=== PATIENT | male | born 1955 | race Two or more races ===

== ENCOUNTER → 2020-04-01 13:41 | Outpatient (BNVA) | payer MEDICAID, SELFPAY | PROVIDERS: PCP Nurse Practitioner Family; Referring Provider Nurse Practitioner Family; Visit Provider Internal Medicine Gastroenterology | DX: Z76.89 Persons encountering health services in other specified circumstances (principal) ==

== ENCOUNTER 2020-05-22 15:48 | Emergency (ER) | payer MEDICARE, MEDICAID, SELFPAY ==
--- NOTE | 2020-05-22 16:14 | ED_ITS ---
HPI - Psych General Chief Complaint: ETOH/Substance Use Stated Complaint: ETOH Time Seen by Provider: 05/22/20 16:14 Source: EMS Mode of arrival: EMS Limitations: other (Intoxicated) History of Present Illness HPI Narrative: Patient alcoholic been here frequently intoxicated came in very unkept condition incontinent of urine and stool intoxicated no signs of injury or history of fall History of same: Yes Relieving factors: none Exacerbating factors: none Related Data Home Medications Medication Instructions Recorded Confirmed atorvastatin 40 mg tablet mg PO 04/01/20 04/01/20 cholecalciferol (vitamin D3) 50 50 mcg PO QAM 04/01/20 04/01/20 mcg (2,000 unit) capsule gabapentin 600 mg tablet 600 mg PO QID 04/01/20 04/01/20 lisinopril 30 mg tablet 30 mg PO QAM 04/01/20 04/01/20 melatonin 5 mg tablet 5 mg PO BEDTIME 04/01/20 04/01/20 metoprolol succinate 25 mg 25 mg PO BEDTIME 04/01/20 04/01/20 tablet,extended release 24 hr phenytoin 50 mg chewable tablet 100 mg PO TID 04/01/20 04/01/20 tamsulosin 0.4 mg capsule 0.4 mg PO DAILY 04/01/20 04/01/20 Previous Rx's Medication Instructions Recorded pantoprazole 20 mg tablet,delayed 20 mg PO DAILY 30 Days #30 tab 04/01/20 release levofloxacin 500 mg PO DAILY 3 Days #3 tab 05/23/20 Allergies Allergy/AdvReac Type Severity Reaction Status Date / Time No Known Allergies Allergy Unverified 01/25/20 16:29 [No Known Allergies*] Review of Systems Review of Systems: Yes Unobtainable due to mental status (Intoxicated) [facility] Past Medical History Medical History Alcohol abuse Cardiomyopathy Cirrhosis, alcoholic GERD (gastroesophageal reflux disease) Hepatitis C antibody positive in blood Hypertension Seizure Family History Family History Father No problems noted. Mother No problems noted. Brother Cancer Sister No problems noted. Social History Social History Household Members: None Housing: Apartment Alcohol intake: current Alcohol intake frequency: a few times a week Alcohol type: hard liquor Smoking Status: Current every day smoker Advance Directives: No Advance Directives Information Provided: Yes Current occupational status: disabled Physical Exam Vital Signs: Vital Signs: Last Vital Signs Temp 99.6 F 05/22/20 23:15 Pulse 76 05/22/20 23:15 Resp 22 H 05/22/20 23:15 BP 145/72 H 05/22/20 23:15 Pulse Ox 96 05/22/20 23:15 Body Mass Index 45.6 Const: General: alert, awake, intoxicated appearing, lethargic and poor hygiene Orientation/consciousness: oriented to person and lethargic HENMT: Head: Yes normocephalic, Yes atraumatic and No contusion Ears: hearing grossly normal bilaterally General nose exam: Normal external nose present Face and sinus: Yes normal facial exam Mouth: Normal oral and palatal mucosa present Throat: Yes posterior oropharynx normal Eyes: General: appearance normal, both eyes and all related structures Conjunctivae: conjunctivae normal Sclerae: sclerae normal Pupils: Equal, round and reactive pupils present Neck: Neck: Yes normal visual inspection, Yes full ROM, Yes no meningeal sig ns, Yes trachea midline and Yes supple Chest: Chest palpation & inspection: normal inspection of the chest and normal palpation of entire chest wall Resp: Effort & Inspection: normal respiratory effort Auscultation: clear to auscultation bilaterally, no crackles, no rales, no rhonchi and no wheezes Cardio: Jugular venous distension: no JVD Rate: regular rate Rhythm: regular rhythm Heart sounds: S1 normal heart sound present, S2 normal heart sound present and no murmurs GI: Inspection: Yes normal to inspection Palpation (GI): Soft to palpation and nontender Percussion: Yes normal to percussion Auscultation: normal bowel sounds Back/Spine/Pelvis: Thoracic/Lumbar Spine: thoracic and lumbar spine normal to inspection Skin: General skin exam: no rashes or lesions noted Neuro: General: oriented to person, moves all extremities, no meningeal signs and no focal motor deficits Cranial nerves: Yes Equal, round and reactive pupils present Extrem: General: Yes normal to inspection, Yes no pedal edema and Yes no calf tenderness Course Course Course Narrative: Patient tachycardic says that he took cocaine, potassium is 3 , will replace it, alcohol level is [address] scan head and C-spine as patient is more lethargic and was intoxicated when he came although no signs of injury Reevaluation(s) Reevaluation #1: CT scan of the head and C-spine negative workup showed urine positive for cocaine also troponin was elevated initially 94.6 repeat troponin was without any significant delta change patient denying any chest pain repeat EKG also without any significant ST T wave changes. Patient is medically cleared will discharge patient home once sober Time: 23:38 MDM - Psych MDM Narrative Medical decision making narrative: Patient's alcohol and cocaine abuse labs are stable with potassium of 3 which is replaced patient medically cleared will discharge patient home and get sober patient urine positive for cocaine. Also showed wbc's will give him Levaquin for UTI Differential Diagnosis Differential diagnosis: Likely substance abuse Restraints Face to Face Assessment: Face to Face Assessment: Current Situation: After assessment of the patient, a review of the pertinent medical record and a discussion with nursing staff, I feel the patient requires a restrain intervention. Reaction To: [] Medical Condition: [] Behavioral State: [] Continued Need: [] Lab Data Attestation: I reviewed the patient's lab results. Result diagrams: 05/22/20 18:18 05/22/20 18:18 Labs: Lab Results 05/22/20 05/22/20 05/22/20 Range/Units 18:18 18:18 18:18 WBC 10.9 H (4.8-10.8) X10*3/uL RBC 4.08 L (4.60-5.80) X10*6/uL Hgb 13.1 L (14.0-18.0) g/dl Hct 38.2 L (42-52) % MCV 93.6 (80-98) fL MCH 32.1 (27.0-33.0) pg MCHC 34.3 (31.0-36.0) g/dl RDW 14.7 (11.0-16.0) % Plt Count 192 (160-400) X10*3/uL MPV 9.0 L (9.4-12.4) fL Immature Gran % (Auto) 0.3 (0.0-0.4) % Neut % (Auto) 75.8 H (45-73) % Lymph % (Auto) 13.5 L (20-40) % [place] % (Auto) 10.0 (2-11) % Eos % (Auto) 0.0 (0-4) % Baso % (Auto) 0.4 (0-2) % Lymph # (Auto) 1.5 (1.2-4.9) X10*3/uL [place] # (Auto) 1.1 (0.1-1.2) X10*3/uL Eos # (Auto) 0.0 (0.0-0.4) X10*3/uL Baso # (Auto) 0.0 (0.0-0.2) X10*3/uL Abs Immat Gran (auto) 0.03 (0.00-0.03) X10*3/uL Absolute Neuts (auto) 8.2 (2.0-8.3) X10*3/uL Absolute Nucleated RBC 0.000 (0.0-0.012) X10*3/uL Nucleated RBC % (auto) 0.0 (0.0-0.2) /100WBC PT 12.5 (10.8-13.0) SEC INR 1.1 (0.9-1.1) Sodium 137 (135-145) mmol/L Potassium 3.0 L (3.3-5.1) mmol/l Chloride 103 (96-108) mmol/L Carbon Dioxide 21 L (22-29) mmol/L Anion Gap 16 (12-20) BUN 9 (9-16) mg/dL Creatinine 1.28 (0.5-1.4) mg/dL Estim Creat Clear Calc 80.0 Estimated GFR 56 Random Glucose 123 H (60-115) mg/dL Calcium 8.2 L (8.4-10.2) mg/dL Magnesium 1.6 (1.6-2.6) mg/dL Total Bilirubin 0.7 (0.0-1.0) mg/dL Direct Bilirubin 0.4 (0.0-0.5) mg/dL AST 14 (5-37) U/L ALT 8 (0-40) U/L Alkaline Phosphatase 72 (39-117) U/L Total Creatine Kinase 57 (38-174) U/L Troponin I High Sens (<3.5-35.0) ng/L Total Protein 6.5 (6.5-8.0) g/dL Albumin 3.4 L (3.5-5.0) g/dL Lipase (8-78) U/L Urine Color Urine Appearance Urine pH (5.0-8.0) Ur Specific [place] (1.005-1.025) Urine Protein (NEG-TRACE) MG/DL Urine Glucose (UA) (NEG) MG/DL Urine Ketones (NEG) MG/DL Urine Blood (NEG) Urine Nitrite (NEG) Ur Leukocyte Esterase (NEG) Urine RBC (0) /HPF Urine WBC (0-4) /HPF Ur Squamous Epith Cells /LPF Urine Bacteria /LPF Urine Mucus /LPF Urine Opiates Screen (Not Detect) Ur Barbiturates Screen (Not Detect) Ur Phencyclidine Scrn (Not Detect) Ur Amphetamines Screen (Not Detect) U Benzodiazepines Scrn (Not Detect) Urine Cocaine Screen (Not Detect) U Marijuana (THC) Screen (Not Detect) Ethyl Alcohol mg/dL COVID-19 (KATELYNN) (Negative) COVID-19 Clin Com 05/22/20 05/22/20 05/22/20 Range/Units 18:18 18:18 18:18 WBC (4.8-10.8) X10*3/uL RBC (4.60-5.80) X10*6/uL Hgb (14.0-18.0) g/dl Hct (42-52) % MCV (80-98) fL MCH (27.0-33.0) pg MCHC (31.0-36.0) g/dl RDW (11.0-16.0) % Plt Count (160-400) X10*3/uL MPV (9.4-12.4) fL Immature Gran % (Auto) (0.0-0.4) % Neut % (Auto) (45-73) % Lymph % (Auto) (20-40) % [place] % (Auto) (2-11) % Eos % (Auto) (0-4) % Baso % (Auto) (0-2) % Lymph # (Auto) (1.2-4.9) X10*3/uL [place] # (Auto) (0.1-1.2) X10*3/uL Eos # (Auto) (0.0-0.4) X10*3/uL Baso # (Auto) (0.0-0.2) X10*3/uL Abs Immat Gran (auto) (0.00-0.03) X10*3/uL Absolute Neuts (auto) (2.0-8.3) X10*3/uL Absolute Nucleated RBC (0.0-0.012) X10*3/uL Nucleated RBC % (auto) (0.0-0.2) /100WBC PT (10.8-13.0) SEC INR (0.9-1.1) Sodium (135-145) mmol/L Potassium (3.3-5.1) mmol/l Chloride (96-108) mmol/L Carbon Dioxide (22-29) mmol/L Anion Gap (12-20) BUN (9-16) mg/dL Creatinine (0.5-1.4) mg/dL Estim Creat Clear Calc Estimated GFR Random Glucose (60-115) mg/dL Calcium (8.4-10.2) mg/dL Magnesium (1.6-2.6) mg/dL Total Bilirubin (0.0-1.0) mg/dL Direct Bilirubin (0.0-0.5) mg/dL AST (5-37) U/L ALT (0-40) U/L Alkaline Phosphatase (39-117) U/L Total Creatine Kinase (38-174) U/L Troponin I High Sens (<3.5-35.0) ng/L Total Protein (6.5-8.0) g/dL Albumin (3.5-5.0) g/dL Lipase 15 (8-78) U/L Urine Color Urine Appearance Urine pH (5.0-8.0) Ur Specific [place] (1.005-1.025) Urine Protein (NEG-TRACE) MG/DL Urine Glucose (UA) (NEG) MG/DL Urine Ketones (NEG) MG/DL Urine Blood (NEG) Urine Nitrite (NEG) Ur Leukocyte Esterase (NEG) Urine RBC (0) /HPF Urine WBC (0-4) /HPF Ur Squamous Epith Cells /LPF Urine Bacteria /LPF Urine Mucus /LPF Urine Opiates Screen (Not Detect) Ur Barbiturates Screen (Not Detect) Ur Phencyclidine Scrn (Not Detect) Ur Amphetamines Screen (Not Detect) U Benzodiazepines Scrn (Not Detect) Urine Cocaine Screen (Not Detect) U Marijuana (THC) Screen (Not Detect) Ethyl Alcohol 65 mg/dL COVID-19 (KATELYNN) Negative (Negative) COVID-19 Clin Com See Note 05/22/20 05/22/20 05/22/20 Range/Units 18:18 22:18 22:22 WBC (4.8-10.8) X10*3/uL RBC (4.60-5.80) X10*6/uL Hgb (14.0-18.0) g/dl Hct (42-52) % MCV (80-98) fL MCH (27.0-33.0) pg MCHC (31.0-36.0) g/dl RDW (11.0-16.0) % Plt Count (160-400) X10*3/uL MPV (9.4-12.4) fL Immature Gran % (Auto) (0.0-0.4) % Neut % (Auto) (45-73) % Lymph % (Auto) (20-40) % [place] % (Auto) (2-11) % Eos % (Auto) (0-4) % Baso % (Auto) (0-2) % Lymph # (Auto) (1.2-4.9) X10*3/uL [place] # (Auto) (0.1-1.2) X10*3/uL Eos # (Auto) (0.0-0.4) X10*3/uL Baso # (Auto) (0.0-0.2) X10*3/uL Abs Immat Gran (auto) (0.00-0.03) X10*3/uL Absolute Neuts (auto) (2.0-8.3) X10*3/uL Absolute Nucleated RBC (0.0-0.012) X10*3/uL Nucleated RBC % (auto) (0.0-0.2) /100WBC PT (10.8-13.0) SEC INR (0.9-1.1) Sodium (135-145) mmol/L Potassium (3.3-5.1) mmol/l Chloride (96-108) mmol/L Carbon Dioxide (22-29) mmol/L Anion Gap (12-20) BUN (9-16) mg/dL Creatinine (0.5-1.4) mg/dL Estim Creat Clear Calc Estimated GFR Random Glucose (60-115) mg/dL Calcium (8.4-10.2) mg/dL Magnesium (1.6-2.6) mg/dL Total Bilirubin (0.0-1.0) mg/dL Direct Bilirubin (0.0-0.5) mg/dL AST (5-37) U/L ALT (0-40) U/L Alkaline Phosphatase (39-117) U/L Total Creatine Kinase (38-174) U/L Troponin I High Sens 94.6 H 81.8 H (<3.5-35.0) ng/L Total Protein (6.5-8.0) g/dL Albumin (3.5-5.0) g/dL Lipase (8-78) U/L Urine Color YELLOW Urine Appearance HAZY Urine pH 6.0 (5.0-8.0) Ur Specific [place] 1.025 (1.005-1.025) Urine Protein 1+ H (NEG-TRACE) MG/DL Urine Glucose (UA) NEG (NEG) MG/DL Urine Ketones NEG (NEG) MG/DL Urine Blood 1+ H (NEG) Urine Nitrite NEG (NEG) Ur Leukocyte Esterase 2+ H (NEG) Urine RBC 10-14 H (0) /HPF Urine WBC 50-75 H (0-4) /HPF Ur Squamous Epith Cells 1+ /LPF Urine Bacteria 4+ /LPF Urine Mucus 1+ /LPF Urine Opiates Screen (Not Detect) Ur Barbiturates Screen (Not Detect) Ur Phencyclidine Scrn (Not Detect) Ur Amphetamines Screen (Not Detect) U Benzodiazepines Scrn (Not Detect) Urine Cocaine Screen (Not Detect) U Marijuana (THC) Screen (Not Detect) Ethyl Alcohol mg/dL COVID-19 (KATELYNN) (Negative) COVID-19 Clin Com 05/22/20 Range/Units 22:22 WBC (4.8-10.8) X10*3/uL RBC (4.60-5.80) X10*6/uL Hgb (14.0-18.0) g/dl Hct (42-52) % MCV (80-98) fL MCH (27.0-33.0) pg MCHC (31.0-36.0) g/dl RDW (11.0-16.0) % Plt Count (160-400) X10*3/uL MPV (9.4-12.4) fL Immature Gran % (Auto) (0.0-0.4) % Neut % (Auto) (45-73) % Lymph % (Auto) (20-40) % [place] % (Auto) (2-11) % Eos % (Auto) (0-4) % Baso % (Auto) (0-2) % Lymph # (Auto) (1.2-4.9) X10*3/uL [place] # (Auto) (0.1-1.2) X10*3/uL Eos # (Auto) (0.0-0.4) X10*3/uL Baso # (Auto) (0.0-0.2) X10*3/uL Abs Immat Gran (auto) (0.00-0.03) X10*3/uL Absolute Neuts (auto) (2.0-8.3) X10*3/uL Absolute Nucleated RBC (0.0-0.012) X10*3/uL Nucleated RBC % (auto) (0.0-0.2) /100WBC PT (10.8-13.0) SEC INR (0.9-1.1) Sodium (135-145) mmol/L Potassium (3.3-5.1) mmol/l Chloride (96-108) mmol/L Carbon Dioxide (22-29) mmol/L Anion Gap (12-20) BUN (9-16) mg/dL Creatinine (0.5-1.4) mg/dL Estim Creat Clear Calc Estimated GFR Random Glucose (60-115) mg/dL Calcium (8.4-10.2) mg/dL Magnesium (1.6-2.6) mg/dL Total Bilirubin (0.0-1.0) mg/dL Direct Bilirubin (0.0-0.5) mg/dL AST (5-37) U/L ALT (0-40) U/L Alkaline Phosphatase (39-117) U/L Total Creatine Kinase (38-174) U/L Troponin I High Sens (<3.5-35.0) ng/L Total Protein (6.5-8.0) g/dL Albumin (3.5-5.0) g/dL Lipase (8-78) U/L Urine Color Urine Appearance Urine pH (5.0-8.0) Ur Specific [place] (1.005-1.025) Urine Protein (NEG-TRACE) MG/DL Urine Glucose (UA) (NEG) MG/DL Urine Ketones (NEG) MG/DL Urine Blood (NEG) Urine Nitrite (NEG) Ur Leukocyte Esterase (NEG) Urine RBC (0) /HPF Urine WBC (0-4) /HPF Ur Squamous Epith Cells /LPF Urine Bacteria /LPF Urine Mucus /LPF Urine Opiates Screen Not Detected (Not Detect) Ur Barbiturates Screen Not Detected (Not Detect) Ur Phencyclidine Scrn Not Detected (Not Detect) Ur Amphetamines Screen Not Detected (Not Detect) U Benzodiazepines Scrn Not Detected (Not Detect) Urine Cocaine Screen POSITIVE H (Not Detect) U Marijuana (THC) Screen Not Detected (Not Detect) Ethyl Alcohol mg/dL COVID-19 (KATELYNN) (Negative) COVID-19 Clin Com ECG Data Attestation: I personally reviewed and interpreted this ECG as follows: ECG interpretation time: 17:46 Interpretation: Sinus tachycardia with ventricular rate 122 left ventricular hypertrophy no acute ST T wave changes normal axis impression sinus tachycardia Discharge Plan Discharge Clinical Impression: Cocaine abuse Alcoholic intoxication Qualifiers: Complication of substance-induced condition: uncomplicated Qualified Code(s): F10.920 - Alcohol use, unspecified with intoxication, uncomplicated UTI (urinary tract infection) Qualifiers: Urinary tract infection type: acute cystitis Hematuria presence: without hematuria Qualified Code(s): N30.00 - Acute cystitis without hematuria Patient Disposition: Home, Self-Care Instructions: Urinary Tract Infection in Men (ED), Cocaine Abuse (ED), Abuse of Alcohol (ED) Additional Instructions: Stop drinking alcohol and cocaine use. Take antibiotic for UTI as prescribed. Follow-up with detox Prescriptions: New levofloxacin 500 mg tablet 500 mg PO DAILY 3 Days Qty: 3 RF: 0 No Action lisinopril 30 mg tablet 30 mg PO QAM RF: 0 metoprolol succinate 25 mg tablet extended release 24 hr 25 mg PO BEDTIME RF: 0 atorvastatin 40 mg tablet PO RF: 0 gabapentin 600 mg tablet 600 mg PO QID RF: 0 tamsulosin 0.4 mg capsule 0.4 mg PO DAILY RF: 0 melatonin 5 mg tablet 5 mg PO BEDTIME RF: 0 cholecalciferol (vitamin D3) 50 mcg (2,000 unit) capsule 50 mcg PO QAM RF: 0 phenytoin 50 mg tablet,chewable 100 mg PO TID RF: 0 pantoprazole 20 mg tablet,delayed release (DR/EC) 20 mg PO DAILY 30 Days Qty: 30 RF: 2 Interventions: ED Discharge Assessment Last Done: 05/23/20 00:54 Discharge Date/Time: 05/23/20 01:00 Print Language: Kyrgyz
--- NOTE | 2020-05-22 16:17 | ECG_ITS ---
Test Reason : ETOH Blood Pressure : / mmHG Vent. Rate : 122 BPM Atrial Rate : 122 BPM P-R Int : 120 ms QRS Dur : 098 ms QT Int : 372 ms P-R-T Axes : 042 052 144 degrees QTc Int : 530 ms Sinus tachycardia Left ventricular hypertrophy with repolarization abnormality Abnormal ECG When compared with ECG of 18-SEP-2016 09:17, Premature ventricular complexes are no longer Present Vent. rate has increased BY [address] no longer elevated in Inferior leads ST less elevated in Anterior leads Non-specific change in ST segment in Lateral leads T wave inversion now evident in Inferior leads Referred By: Toney Paez Electronically Signed By:HEATHER MCINTOSH MD
[2020-05-22 16:51] VITALS: BP 136/70; PULSE 94; RESP 16; TEMP 36.9; O2SAT 99; BMI 45.6
[2020-05-22 18:26] LABS: MANUAL DIFF FLAG NO
[2020-05-22 18:33] LABS: INTERNATIONAL NORM RATIO 1.1 (0.9-1.1); Prothrombin Time 12.5 SEC (10.8-13.0)
[2020-05-22 18:43] LABS: COVID-19 Test Negative (Negative)
[2020-05-22 18:46] LABS: Ethanol 65 mg/dL
[2020-05-22 18:48] LABS: Alanine Aminotransferase 8 U/L (0-40); Albumin Level 3.4 g/dL (3.5-5.0); Alkaline Phosphatase 72 U/L (39-117); Anion Gap 16 (12-20); Aspartate Amino Transferase 14 U/L (5-37); Bilirubin Direct 0.4 mg/dL (0.0-0.5); Bilirubin Total 0.7 mg/dL (0.0-1.0); Blood Urea Nitrogen 9 mg/dL (9-16); Calcium 8.2 mg/dL (8.4-10.2); Carbon Dioxide 21 mmol/L (22-29); Chloride 103 mmol/L (96-108); Estimated Glomerular Filt Rate 56; Glucose Random 123 mg/dL (60-115); Magnesium 1.6 mg/dL (1.6-2.6); Sodium 137 mmol/L (135-145); Total Protein 6.5 g/dL (6.5-8.0)
[2020-05-22 18:49] LABS: Basophils Percent Auto 0.4 % (0-2); Hematocrit 38.2 % (42-52); Hemoglobin 13.1 g/dl (14.0-18.0); Imm Gran Abs Auto 0.03 X10*3/uL (0.00-0.03); Imm Gran Pct Auto 0.3 % (0.0-0.4); Lipase 15 U/L (8-78); Lymphocytes Absolute Auto 1.5 X10*3/uL (1.2-4.9); Lymphocytes Percent Auto 13.5 % (20-40); Mean Corpuscular HGB Conc 34.3 g/dl (31.0-36.0); Mean Corpuscular Hemoglobin 32.1 pg (27.0-33.0); Mean Corpuscular Volume 93.6 fL (80-98); Monocytes Absolute Auto 1.1 X10*3/uL (0.1-1.2); Neutrophils Absolute Auto 8.2 X10*3/uL (2.0-8.3); Neutrophils Percent Auto 75.8 % (45-73); Platelet Count 192 X10*3/uL (160-400); Red Blood Count 4.08 X10*6/uL (4.60-5.80); Red Cell Distribution Width 14.7 % (11.0-16.0); White Blood Count 10.9 X10*3/uL (4.8-10.8)
[2020-05-22 19:02] LABS: Troponin-I High Sensitivity 94.6 ng/L (<3.5-35.0)
--- NOTE | 2020-05-22 19:05 | CT_ITS ---
Indication: Altered mental status EXAMINATION: CT the brain and CT of the cervical spine. Axial images with coronal and sagittal reformatted images. DLP is [address] brain There is no midline shift. There is no mass effect. There is no hemorrhage. The basilar cisterns appear patent. The posterior fossa is grossly within normal limits. There is no extra-axial collection There is evidence of scattered white matter ischemic change. The ventricular system is within normal limits. Note is made of maxillary and ethmoid sinus disease. CT cervical spine; Bullous disease in the right lung apex. Negative for acute fracture or dislocation. Degenerative changes are noted. CT/CT cervical spine wo con IMPRESSION: No fracture or dislocation in the cervical spine. Negative acute noncontrast CT of the brain. Moderate white matter ischemic changes.
--- NOTE | 2020-05-22 19:05 | CT_ITS ---
Indication: Altered mental status EXAMINATION: CT the brain and CT of the cervical spine. Axial images with coronal and sagittal reformatted images. DLP is [address] brain There is no midline shift. There is no mass effect. There is no hemorrhage. The basilar cisterns appear patent. The posterior fossa is grossly within normal limits. There is no extra-axial collection There is evidence of scattered white matter ischemic change. The ventricular system is within normal limits. Note is made of maxillary and ethmoid sinus disease. CT cervical spine; Bullous disease in the right lung apex. Negative for acute fracture or dislocation. Degenerative changes are noted. CT/CT head/brain wo con IMPRESSION: No fracture or dislocation in the cervical spine. Negative acute noncontrast CT of the brain. Moderate white matter ischemic changes.
--- NOTE | 2020-05-22 19:05 | PC.NURSE ---
PATIENT'S TROPONIN 94.6. INFORMATION RELAYED TO DICK KAN, REVARN AND . PATIENT BEING MOVED FROM ED BED 6H TO ED BED 5. PLACED ON CARDIAC MONITORING.
--- NOTE | 2020-05-22 19:06 | XR_ITS ---
EXAMINATION: XR CHEST CLINICAL INFORMATION: Altered mental status COMPARISON: 12/23/2007 TECHNIQUE: Frontal view of the chest was obtained. FINDINGS: Metallic fragments are again seen in the right hemithorax as well as overlying the left clavicle. Old healed rib fractures are noted on the right involving at least the fourth through sixth ribs. Heart size within normal limits. No infiltrates, effusions or lung masses are seen. XR/XR chest 1V IMPRESSION: No acute intrathoracic disease
[2020-05-22] MEDS: 0.9 % Sodium Chloride 1,000 ML 999 ML IVCONT ×2 (19:21→22:28)
[2020-05-22 19:28] VITALS: BP 140/75; PULSE 120; RESP 16; O2SAT 96
[2020-05-22] MEDS: Potassium Chloride/H20 10 MEQ/100 ML PIGGYBACK 100 MEQ IV ×2 (19:52→21:03)
--- NOTE | 2020-05-22 22:08 | ECG_ITS ---
Test Reason : REPEAT Blood Pressure : / mmHG Vent. Rate : 072 BPM Atrial Rate : 072 BPM P-R Int : 134 ms QRS Dur : 088 ms QT Int : 468 ms P-R-T Axes : 073 063 115 degrees QTc Int : 512 ms Normal sinus rhythm with sinus arrhythmia Possible Left atrial enlargement Left ventricular hypertrophy with repolarization abnormality Prolonged QT Abnormal ECG When compared with ECG of 22-MAY-2020 17:46, Vent. rate has decreased BY 50 BPM T wave inversion no longer evident in Inferior leads Referred By: Toney Paez Electronically Signed By:HEATHER MCINTOSH MD
[2020-05-22 22:19] VITALS: BP 131/71; PULSE 71; RESP 22; O2SAT 99
[2020-05-22 22:29] LABS: Glucose Urine UA NEG (NEG); Leukocyte Esterase Urine 2+ (NEG); Nitrite Urine NEG (NEG); Specific Gravity - Urine 1.025 (1.005-1.025); Urine Blood 1+ (NEG); Urine Ketones NEG (NEG); Urine Protein 1+ MG/DL (NEG-TRACE)
[2020-05-22 22:35] LABS: Appearance Urine HAZY; Color Urine YELLOW
[2020-05-22 22:38] LABS: Bacteria Urine 4+ /LPF; Mucus Urine 1+ /LPF; Squamous Epithelial Cell Urine 1+ /LPF; WBC Urine 50-75 /HPF (0-4)
[2020-05-22 22:52] LABS: Amphetamine Screen Urine Not Detected (Not Detect); Barbiturates, Urine Not Detected (Not Detect); Benzodiazepines Screen Urine Not Detected (Not Detect); Cannabinoid Screen Urine Not Detected (Not Detect); Cocaine Screen Urine POSITIVE (Not Detect); Opiate Screen Urine Not Detected (Not Detect); Phencyclidine Screen Urine Not Detected (Not Detect)
[2020-05-22 23:02] LABS: Troponin-I High Sensitivity 81.8 ng/L (<3.5-35.0)
[2020-05-22 23:15] VITALS: BP 145/72; PULSE 76; RESP 22; TEMP 37.6; O2SAT 96
[2020-05-23] MEDS: levoFLOXacin 500 MG TABLET PO (00:44)
== END 2020-05-23 01:00 | disposition home or self-care (01) ==
PROVIDERS: Emergency Provider Internal Medicine
DX: N30.00 Acute cystitis without hematuria (principal); Z20.822 Contact with and (suspected) exposure to COVID-19; F14.10 Cocaine abuse, uncomplicated; R53.83 Other fatigue; R00.0 Tachycardia, unspecified; F10.220 Alcohol dependence with intoxication, uncomplicated; Y90.3 Blood alcohol level of 60-79 mg/100 ml; I10 Essential (primary) hypertension; K70.30 Alcoholic cirrhosis of liver without ascites; B19.20 Unspecified viral hepatitis C without hepatic coma; F17.200 Nicotine dependence, unspecified, uncomplicated; Z79.899 Other long term (current) drug therapy
CPT/HCPCS: 36415; 70450; 71045; 72125; 80048; 80076; 80307; 80320; 81001; 82550; 83690; 83735; 84484; 85025; 85610; 87086; 87088; 87186; 87635; 93005; 96361; 96374; 99283; 99284

== ENCOUNTER → 2020-07-22 08:31 | Outpatient (BNVA) | payer MEDICARE, MEDICAID, SELFPAY | PROVIDERS: PCP Nurse Practitioner Family; Visit Provider Internal Medicine Gastroenterology | DX: K70.30 Alcoholic cirrhosis of liver without ascites (principal); K21.9 Gastro-esophageal reflux disease without esophagitis; F10.10 Alcohol abuse, uncomplicated | CPT/HCPCS: 99212 ==

== ENCOUNTER 2020-09-26 12:11 | Inpatient (IN) | payer MEDICARE, MEDICAID, SELFPAY ==
[2020-09-26] VITALS (7 sets, daily range): BP systolic 143–224; BP diastolic 63–107; PULSE 65–100; RESP 13–18; TEMP 36.4–37.2; O2SAT 94–98; BMI 25.8
--- NOTE | ~2020-09-26 | CT_ITS ---
EXAMINATION: CT BRAIN AND CT CERVICAL SPINE X-RAY. CLINICAL INFORMATION: AMS. COMPARISON: None TECHNIQUE: 5 mm thin axial and reformatted 2 mm thin sagittal and coronal images of brain were obtained. Subsequently three-minute thin axial and reformatted 2 mm thin sagittal and coronal images of cervical spine were obtained. DLP 1071. Chest 2 views. FINDINGS: Brain: There is no acute intra-axial, extra-axial bleed, masses or midline shift. There is no acute infarct in evolution. The lateral ventricles are symmetrical in size and configuration without enlargement. There is bibasilar ganglia calcifications. The franks to white matter differentiation is maintained normal. Bone windows reveal no calvarial abnormality. There is mucoperiosteal thickening bilateral maxillary sinuses. Rest of the sinuses are well-aerated. There is minimal mucoperiosteal thickening left mastoid sinus. There is no scalp soft tissue abnormality. There is no calvarial abnormality. Cervical spine: There is mild straightening of cervical lordosis. The vertebral heights and alignment are normal. The craniovertebral junction and C1-C2 alignment is normal. There is mild ventral spondylosis C4-C5, C5-C6 and C6-C7 disc levels. No lytic or sclerotic process seen. The prevertebral and paravertebral soft tissues are normal. The tracheal airway is widely patent. There are large bullae in the right lung apex. CT/CT head/brain wo con IMPRESSION: No acute intracranial process seen. Chronic bilateral maxillary sinus inflammatory changes. There is no acute fracture or dislocation in cervical spine. There are degenerative disc changes as described above. There is a right apical bullous change.
--- NOTE | ~2020-09-26 | CT_ITS ---
EXAMINATION: CT BRAIN AND CT CERVICAL SPINE X-RAY. CLINICAL INFORMATION: AMS. COMPARISON: None TECHNIQUE: 5 mm thin axial and reformatted 2 mm thin sagittal and coronal images of brain were obtained. Subsequently three-minute thin axial and reformatted 2 mm thin sagittal and coronal images of cervical spine were obtained. DLP 1071. Chest 2 views. FINDINGS: Brain: There is no acute intra-axial, extra-axial bleed, masses or midline shift. There is no acute infarct in evolution. The lateral ventricles are symmetrical in size and configuration without enlargement. There is bibasilar ganglia calcifications. The franks to white matter differentiation is maintained normal. Bone windows reveal no calvarial abnormality. There is mucoperiosteal thickening bilateral maxillary sinuses. Rest of the sinuses are well-aerated. There is minimal mucoperiosteal thickening left mastoid sinus. There is no scalp soft tissue abnormality. There is no calvarial abnormality. Cervical spine: There is mild straightening of cervical lordosis. The vertebral heights and alignment are normal. The craniovertebral junction and C1-C2 alignment is normal. There is mild ventral spondylosis C4-C5, C5-C6 and C6-C7 disc levels. No lytic or sclerotic process seen. The prevertebral and paravertebral soft tissues are normal. The tracheal airway is widely patent. There are large bullae in the right lung apex. CT/CT cervical spine wo con IMPRESSION: No acute intracranial process seen. Chronic bilateral maxillary sinus inflammatory changes. There is no acute fracture or dislocation in cervical spine. There are degenerative disc changes as described above. There is a right apical bullous change.
--- NOTE | ~2020-09-26 | US_ITS ---
EXAMINATION: US ABDOMEN LIMITED CLINICAL INFORMATION: Question cirrhosis. Abnormal hepatic texture. COMPARISON: None TECHNIQUE: Real-time imaging of the right upper quadrant abdominal viscera. FINDINGS: PANCREAS: Normal. LIVER: Normal. The liver is normal in size. The liver contour is normal. Parenchymal echogenicity is normal. No focal hepatic lesion. There is no intrahepatic biliary duct dilatation seen. Normal hepatopedal flow seen in the portal vein on Doppler exam. GALLBLADDER: There are multiple echogenic mobile gallstones without wall thickening. COMMON BILE DUCT: Normal in caliber measuring 0.32 cm in diameter. RIGHT KIDNEY: Normal. No hydronephrosis. No renal calculi or focal parenchymal lesions. The kidney measures 10.1 cm in maximum dimension. FREE FLUID: None. US/US abdomen limited IMPRESSION: Cholelithiasis without wall thickening. Visualized liver, right kidney and the pancreas appears unremarkable.
--- NOTE | 2020-09-26 12:30 | ECG_ITS ---
Test Reason : ALTER MENTAL Blood Pressure : / mmHG Vent. Rate : 081 BPM Atrial Rate : 081 BPM P-R Int : 116 ms QRS Dur : 096 ms QT Int : 406 ms P-R-T Axes : 051 045 147 degrees QTc Int : 471 ms Poor data quality Possible Normal sinus rhythm Voltage criteria for left ventricular hypertrophy T wave abnormality, consider lateral ischemia Prolonged QT Abnormal ECG When compared with ECG of 22-MAY-2020 22:18, Poor data quality in current ECG precludes serial comparison Referred By: Poonam Senior Electronically Signed By:HEATHER MCINTOSH MD
--- NOTE | 2020-09-26 12:48 | MHC.RECOVSUP ---
Addendum entered by Bran Murphy 09/26/20 13:54: Returned to patient 45 minutes later and had another discussion about detox or mat. pt. was unresponsive. Pt. is ukrainian speaking only. Original Note: ? Reason for consult:Continuity of care o Current location: ED 22H o Identified substance use concern: ETO - Support ? Intervention o Community resources provided o ? Plan: o Referral to [facility] o Patient to follow up with [facility] after discharge ? Additional information: Spoke at length with patient about detox and MAT. Patient agreed to sit and think about his options. F/u later for detox.
[2020-09-26 12:57] LABS: MANUAL DIFF FLAG NO
[2020-09-26 12:58] LABS: Basophils Absolute Auto 0.1 X10*3/uL (0.0-0.2); Basophils Percent Auto 0.6 % (0-2); Eosinophils Absolute Auto 0.1 X10*3/uL (0.0-0.4); Eosinophils Percent Auto 0.8 % (0-4); Hematocrit 45.7 % (42-52); Hemoglobin 15.2 g/dl (14.0-18.0); Imm Gran Abs Auto 0.03 X10*3/uL (0.00-0.03); Imm Gran Pct Auto 0.4 % (0.0-0.4); Lymphocytes Percent Auto 25.3 % (20-40); Mean Corpuscular HGB Conc 33.3 g/dl (31.0-36.0); Mean Corpuscular Hemoglobin 32.2 pg (27.0-33.0); Mean Corpuscular Volume 96.8 fL (80-98); Mean Platelet Volume 8.9 fL (9.4-12.4); Monocytes Absolute Auto 0.8 X10*3/uL (0.1-1.2); Monocytes Percent Auto 10.7 % (2-11); Neutrophils Absolute Auto 4.8 X10*3/uL (2.0-8.3); Neutrophils Percent Auto 62.2 % (45-73); Platelet Count 253 X10*3/uL (160-400); Red Blood Count 4.72 X10*6/uL (4.60-5.80); Red Cell Distribution Width 14.4 % (11.0-16.0); White Blood Count 7.8 X10*3/uL (4.8-10.8)
[2020-09-26 13:04] LABS: INTERNATIONAL NORM RATIO 1.1 (0.9-1.1); Prothrombin Time 12.9 SEC (10.8-13.0)
--- NOTE | 2020-09-26 13:19 | ED_ITS ---
HPI - Altered Mental Status General Chief Complaint: Altered Mental Status Stated Complaint: OPIATE OD,NARCAN GIVEN W/GOOD RESULT PER EMS Time Seen by Provider: 09/26/20 12:30 Source: patient, EMS and personal lines agent Mode of arrival: EMS Limitations: language barrier and altered mental status History of Present Illness HPI narrative: 64-year-old male with a past medical history of alcohol abuse, alcoholic liver cirrhosis, GERD, hepatitis-C, hypertension, seizure disorder here status post being found unresponsive. Per EMS the patient was on his balcony and was noted to be unresponsive by a neighbor on their balcony. They called EMS. Per EMS on arrival the patient was unresponsive with a saturation of 80%. He received 0.4 mg of IV Narcan and did wake up. Patient denies any heroin use. He does tell me that he takes a chronic narcotic by mouth daily but he does not know the name of this. He tells me he did take it this morning but does not know how many mg he took. He does drink alcohol daily. He tells me he drinks 4-6 glasses of rum a day. His last drink was just prior to arrival. Patient tells me he does not want detox. He denies suicidal ideations. He has no physical complaints. Per EMS the patient was noted to be confused after he woke up. Nursing also concurs with this. Unsure what his baseline is. No reports of seizure activity. No incontinence or tongue bite noted. Related Data Home Medications Medication Instructions Recorded Confirmed atorvastatin 40 mg tablet mg PO 04/01/20 07/22/20 cholecalciferol (vitamin D3) 50 50 mcg PO QAM 04/01/20 07/22/20 mcg (2,000 unit) capsule gabapentin 600 mg tablet 600 mg PO QID 04/01/20 07/22/20 lisinopril 30 mg tablet 30 mg PO QAM 04/01/20 07/22/20 melatonin 5 mg tablet 5 mg PO BEDTIME 04/01/20 07/22/20 metoprolol succinate 25 mg 25 mg PO BEDTIME 04/01/20 07/22/20 tablet,extended release 24 hr phenytoin 50 mg chewable tablet 100 mg PO TID 04/01/20 07/22/20 tamsulosin 0.4 mg capsule 0.4 mg PO DAILY 04/01/20 07/22/20 umeclidinium [Incruse Ellipta] 1 puff INHALATION DAILY 09/26/20 Previous Rx's Medication Instructions Recorded pantoprazole 20 mg tablet,delayed 20 mg PO QAM #30 tab 07/24/20 release Allergies Allergy/AdvReac Type Severity Reaction Status Date / Time No Known Allergies Allergy Verified 07/22/20 09:27 [No Known Allergies*] Review of Systems Review of Systems: Limited due to confusion Yes all other systems are review ed and are negative Constitutional: Constitutional: Reports no additional constitutional complaints, Denies body ache(s), Denies chills, Denies fever(s), Denies headache(s) and Denies weakness Eyes: Eyes: Reports no additional eye complaints and Denies change in vision ENT: Reports system reviewed and no additional complaints, except as documen moreno, Denies dizziness, Denies headache(s), Denies nasal congestion, Denies nasal discharge and Denies neck pain Cardiovascular: Cardiovascular: Reports no additional cardiovascular complaints, Denies chest pain, Denies leg edema and Denies dyspnea Respiratory: Respiratory: Reports no additional respiratory complaints, Denies cough and Denies dyspnea Gastrointestinal: Gastrointestinal: Reports no additional gastrointestinal complaints, Denies abdominal pain, Denies diarrhea, Denies nausea and Denies vomiting Genitourinary: Genitourinary: Denies urinary incontinence Musculoskeletal: Musculoskeletal: Reports no additional musculoskeletal complaints, Denies back pain, Denies arthralgias, Denies joint swelling, Denies neck pain, Denies numbness and Denies tingling Integumentary/Breasts: Skin/Breast: Reports system reviewed and no additional complaints, except as docu and Denies rash Neurologic: Reports system reviewed and no additional complaints, except as documented, Denies Abnormal speech present, Reports confusion, Denies dizziness, Denies headache(s), Denies numbness, Denies tingling and Denies weakness Psychiatric: Psychiatric: Reports confusion PMFSH Past Medical History Attestation statement: The following information was validated with the patient. Source: old records reviewed and nursing notes reviewed Medical History Alcohol abuse Cardiomyopathy Cirrhosis, alcoholic GERD (gastroesophageal reflux disease) Hepatitis C antibody positive in blood Hypertension Seizure Family History Family History Father No problems noted. Mother No problems noted. Brother Cancer Sister No problems noted. Social History Social History (Updated 09/26/20 @ 13:25 by Danilo Ge NP) Household Members: None Housing: Apartment Alcohol intake: never Smoking Status: Current every day smoker Smoked in Last 30 Days: Yes Use of substances other than those prescribed or required for medical reasons: No Advance Directives: No Advance Directives Information Provided: Yes Current occupational status: disabled Physical Exam Vital Signs: Vital Signs: Last Vital Signs Temp 97.6 F 09/26/20 12:30 Pulse 69 09/26/20 19:36 Resp 15 09/26/20 19:36 BP 143/63 H 09/26/20 19:36 Pulse Ox 96 09/26/20 19:36 Body Mass Index 25.8 Const: General: cooperative, healthy appearing, comfortable, no acute distress and confusion Orientation/consciousness: oriented to person and confusion Limitations: altered mental status and language barrier HENMT: Head: Yes normal to inspection Ears: hearing grossly normal bilaterally General nose exam: Normal external nose present Face and sinus: Yes normal facial exam Mouth: Normal oral and palatal mucosa present Throat: Yes posterior oropharynx normal Eyes: General: appearance normal, both eyes and all related structures Pupils: Equal, round and reactive pupils present Neck: Other: No midline tenderness, step-offs or deformities Neck: Yes normal visual inspection and Yes full ROM Chest: Chest palpation & inspection: normal inspection of the chest Resp: Effort & Inspection: normal respiratory effort Auscultation: clear to auscultation bilaterally Cardio: Rate: regular rate Rhythm: regular rhythm Peripheral pulses: Peripheral pulses 2+ throughout GI: Inspection: Yes normal to inspection Palpation (GI): Soft to palpation and nontender Auscultation: normal bowel sounds Back/Spine/Pelvis: Thoracic/Lumbar Spine: thoracic and lumbar spine normal to inspection Skin: General skin exam: no rashes or lesions noted Neuro: General: oriented to person, tone normal, moves all extremities, no focal motor deficits, normal sensation to monofilament, confusion and Unable to assess gait Cranial nerves: Yes Equal, round and reactive pupils present, Yes Normal facial strength present and Yes Midline tongue present Speech: No Abnormal speech present Gait exam (Neuro): Unable to assess gait Motor exam (neuro): 5/5 motor strength present throughout Sensory Exam: Normal double simultaneous stimulation for sensation Extrem: General: Yes normal to inspection, Yes no pedal edema and Yes no calf tenderness Course Course Course Narrative: 64-year-old male here with altered mental status after being found unresponsive by EMS. Received Narcan with improvement of mental status. Patient is oriented to person and place only. No reports of seizure activity and patient does report compliance with his seizure medications. Is noted to be hypertensive on arrival but tells me he took all of his blood pressure medications this morning. No focal neurological deficit. Patient has no complaints. He drinks alcohol daily. He tells me he uses oral narcotics but does not know the name or dose. Will check labs, CT head/neck, EKG, chest x-ray, UA, drug screen, alcohol level. 1515-Imaging negative. labs show magnesium 1.2. Replacement ordered. Mildly elevated troponin with no EKG changes. Plan for repeat 3 hour troponin. No chest pain. Ammonia normal. LFTs mildly elevated likely from alcohol use. UA and MICHAEL pending. Blood pressure improved. 1800-UA shows a UTI. At this time infection is suspected. Antibiotics ordered. Patient does have some mild confusion still. He is aware of his name and where he is but is unclear on the date and time. He does live home alone. Will call family to discuss dispo. 1899-only able to reach a neighbor who tells me that the patient lives home alone and all of his family is in [place]. He tells me that the patient does not have any help at home. The patient is alert and oriented to self and place but has some mild confusion as to where he is and what year it is. Due to this with the UTI patient may need placement vs admission. 1999-Discussed with Dr Lawton who accepted patient. MDM - Altered Mental Status MDM Narrative Medical decision making narrative: Hepatic encephalopathy, ICH versus lesion, alcohol intoxication, substance use Medical Records Attestation: I reviewed the patient's medical records. Lab Data Attestation: I reviewed the patient's lab results. Result diagrams: 09/26/20 12:51 09/26/20 12:51 Labs: Lab Results 09/26/20 09/26/20 09/26/20 Range/Units 12:51 12:51 12:51 WBC 7.8 (4.8-10.8) X10*3/uL RBC 4.72 (4.60-5.80) X10*6/uL Hgb 15.2 (14.0-18.0) g/dl Hct 45.7 (42-52) % MCV 96.8 (80-98) fL MCH 32.2 (27.0-33.0) pg MCHC 33.3 (31.0-36.0) g/dl RDW 14.4 (11.0-16.0) % Plt Count 253 D (160-400) X10*3/uL MPV 8.9 L (9.4-12.4) fL Immature Gran % (Auto) 0.4 (0.0-0.4) % Neut % (Auto) 62.2 (45-73) % Lymph % (Auto) 25.3 (20-40) % Churchill % (Auto) 10.7 (2-11) % Eos % (Auto) 0.8 (0-4) % Baso % (Auto) 0.6 (0-2) % Lymph # (Auto) 2.0 (1.2-4.9) X10*3/uL Churchill # (Auto) 0.8 (0.1-1.2) X10*3/uL Eos # (Auto) 0.1 (0.0-0.4) X10*3/uL Baso # (Auto) 0.1 (0.0-0.2) X10*3/uL Abs Immat Gran (auto) 0.03 (0.00-0.03) X10*3/uL Absolute Neuts (auto) 4.8 (2.0-8.3) X10*3/uL Absolute Nucleated RBC 0.000 (0.0-0.012) X10*3/uL Nucleated RBC % (auto) 0.0 (0.0-0.2) /100WBC PT 12.9 (10.8-13.0) SEC INR 1.1 (0.9-1.1) Sodium 137 (135-145) mmol/L Potassium 3.7 (3.3-5.1) mmol/L Chloride 102 (96-108) mmol/L Carbon Dioxide 23 (22-29) mmol/L Anion Gap 16 (12-20) BUN 11 (9-16) mg/dL Creatinine 1.05 (0.5-1.4) mg/dL Estim Creat Clear Calc 67.8 Estimated GFR > 60 Random Glucose 125 H (60-115) mg/dL Lactic Acid (0.5-2.0) mmol/L Calcium 9.6 D (8.4-10.2) mg/dL Magnesium 1.2 L* (1.6-2.6) mg/dL Total Bilirubin 1.7 H (0.0-1.0) mg/dL Direct Bilirubin 0.9 H (0.0-0.5) mg/dL AST 34 D (5-37) U/L ALT 19 (0-40) U/L Alkaline Phosphatase 109 D (39-117) U/L Ammonia (13-55) umol/L Troponin I High Sens (<3.5-35.0) ng/L Total Protein 7.5 (6.5-8.0) g/dL Albumin 3.6 (3.5-5.0) g/dL Urine Color Urine Appearance Urine pH (5.0-8.0) Ur Specific [place] (1.005-1.025) Urine Protein (NEG-TRACE) MG/DL Urine Glucose (UA) (NEG) MG/DL Urine Ketones (NEG) MG/DL Urine Blood (NEG) Urine Nitrite (NEG) Ur Leukocyte Esterase (NEG) Urine RBC (0) /HPF Urine WBC (0-4) /HPF Ur Squamous Epith Cells /LPF Urine Bacteria /LPF Urine Opiates Screen (Not Detect) Ur Barbiturates Screen (Not Detect) Ur Phencyclidine Scrn (Not Detect) Ur Amphetamines Screen (Not Detect) U Benzodiazepines Scrn (Not Detect) Urine Cocaine Screen (Not Detect) U Marijuana (THC) Screen (Not Detect) Ethyl Alcohol mg/dL 09/26/20 09/26/20 09/26/20 Range/Units 12:51 12:51 12:51 WBC (4.8-10.8) X10*3/uL RBC (4.60-5.80) X10*6/uL Hgb (14.0-18.0) g/dl Hct (42-52) % MCV (80-98) fL MCH (27.0-33.0) pg MCHC (31.0-36.0) g/dl RDW (11.0-16.0) % Plt Count (160-400) X10*3/uL MPV (9.4-12.4) fL Immature Gran % (Auto) (0.0-0.4) % Neut % (Auto) (45-73) % Lymph % (Auto) (20-40) % Churchill % (Auto) (2-11) % Eos % (Auto) (0-4) % Baso % (Auto) (0-2) % Lymph # (Auto) (1.2-4.9) X10*3/uL Churchill # (Auto) (0.1-1.2) X10*3/uL Eos # (Auto) (0.0-0.4) X10*3/uL Baso # (Auto) (0.0-0.2) X10*3/uL Abs Immat Gran (auto) (0.00-0.03) X10*3/uL Absolute Neuts (auto) (2.0-8.3) X10*3/uL Absolute Nucleated RBC (0.0-0.012) X10*3/uL Nucleated RBC % (auto) (0.0-0.2) /100WBC PT (10.8-13.0) SEC INR (0.9-1.1) Sodium (135-145) mmol/L Potassium (3.3-5.1) mmol/L Chloride (96-108) mmol/L Carbon Dioxide (22-29) mmol/L Anion Gap (12-20) BUN (9-16) mg/dL Creatinine (0.5-1.4) mg/dL Estim Creat Clear Calc Estimated GFR Random Glucose (60-115) mg/dL Lactic Acid 1.3 (0.5-2.0) mmol/L Calcium (8.4-10.2) mg/dL Magnesium (1.6-2.6) mg/dL Total Bilirubin (0.0-1.0) mg/dL Direct Bilirubin (0.0-0.5) mg/dL AST (5-37) U/L ALT (0-40) U/L Alkaline Phosphatase (39-117) U/L Ammonia (13-55) umol/L Troponin I High Sens 58.8 H* (<3.5-35.0) ng/L Total Protein (6.5-8.0) g/dL Albumin (3.5-5.0) g/dL Urine Color Urine Appearance Urine pH (5.0-8.0) Ur Specific [place] (1.005-1.025) Urine Protein (NEG-TRACE) MG/DL Urine Glucose (UA) (NEG) MG/DL Urine Ketones (NEG) MG/DL Urine Blood (NEG) Urine Nitrite (NEG) Ur Leukocyte Esterase (NEG) Urine RBC (0) /HPF Urine WBC (0-4) /HPF Ur Squamous Epith Cells /LPF Urine Bacteria /LPF Urine Opiates Screen (Not Detect) Ur Barbiturates Screen (Not Detect) Ur Phencyclidine Scrn (Not Detect) Ur Amphetamines Screen (Not Detect) U Benzodiazepines Scrn (Not Detect) Urine Cocaine Screen (Not Detect) U Marijuana (THC) Screen (Not Detect) Ethyl Alcohol < 10 mg/dL 09/26/20 09/26/20 09/26/20 Range/Units 14:05 16:17 17:34 WBC (4.8-10.8) X10*3/uL RBC (4.60-5.80) X10*6/uL Hgb (14.0-18.0) g/dl Hct (42-52) % MCV (80-98) fL MCH (27.0-33.0) pg MCHC (31.0-36.0) g/dl RDW (11.0-16.0) % Plt Count (160-400) X10*3/uL MPV (9.4-12.4) fL Immature Gran % (Auto) (0.0-0.4) % Neut % (Auto) (45-73) % Lymph % (Auto) (20-40) % Churchill % (Auto) (2-11) % Eos % (Auto) (0-4) % Baso % (Auto) (0-2) % Lymph # (Auto) (1.2-4.9) X10*3/uL Churchill # (Auto) (0.1-1.2) X10*3/uL Eos # (Auto) (0.0-0.4) X10*3/uL Baso # (Auto) (0.0-0.2) X10*3/uL Abs Immat Gran (auto) (0.00-0.03) X10*3/uL Absolute Neuts (auto) (2.0-8.3) X10*3/uL Absolute Nucleated RBC (0.0-0.012) X10*3/uL Nucleated RBC % (auto) (0.0-0.2) /100WBC PT (10.8-13.0) SEC INR (0.9-1.1) Sodium (135-145) mmol/L Potassium (3.3-5.1) mmol/L Chloride (96-108) mmol/L Carbon Dioxide (22-29) mmol/L Anion Gap (12-20) BUN (9-16) mg/dL Creatinine (0.5-1.4) mg/dL Estim Creat Clear Calc Estimated GFR Random Glucose (60-115) mg/dL Lactic Acid (0.5-2.0) mmol/L Calcium (8.4-10.2) mg/dL Magnesium (1.6-2.6) mg/dL Total Bilirubin (0.0-1.0) mg/dL Direct Bilirubin (0.0-0.5) mg/dL AST (5-37) U/L ALT (0-40) U/L Alkaline Phosphatase (39-117) U/L Ammonia 56 H (13-55) umol/L Troponin I High Sens 66.4 H* (<3.5-35.0) ng/L Total Protein (6.5-8.0) g/dL Albumin (3.5-5.0) g/dL Urine Color YELLOW Urine Appearance HAZY Urine pH 6.5 (5.0-8.0) Ur Specific [place] 1.025 (1.005-1.025) Urine Protein 1+ H (NEG-TRACE) MG/DL Urine Glucose (UA) NEG (NEG) MG/DL Urine Ketones 5 (NEG) MG/DL Urine Blood 1+ H (NEG) Urine Nitrite POS H (NEG) Ur Leukocyte Esterase 2+ H (NEG) Urine RBC 1-4 (0) /HPF Urine WBC 10-14 H (0-4) /HPF Ur Squamous Epith Cells TRACE /LPF Urine Bacteria 3+ /LPF Urine Opiates Screen (Not Detect) Ur Barbiturates Screen (Not Detect) Ur Phencyclidine Scrn (Not Detect) Ur Amphetamines Screen (Not Detect) U Benzodiazepines Scrn (Not Detect) Urine Cocaine Screen (Not Detect) U Marijuana (THC) Screen (Not Detect) Ethyl Alcohol mg/dL 09/26/20 Range/Units 17:34 WBC (4.8-10.8) X10*3/uL RBC (4.60-5.80) X10*6/uL Hgb (14.0-18.0) g/dl Hct (42-52) % MCV (80-98) fL MCH (27.0-33.0) pg MCHC (31.0-36.0) g/dl RDW (11.0-16.0) % Plt Count (160-400) X10*3/uL MPV (9.4-12.4) fL Immature Gran % (Auto) (0.0-0.4) % Neut % (Auto) (45-73) % Lymph % (Auto) (20-40) % Churchill % (Auto) (2-11) % Eos % (Auto) (0-4) % Baso % (Auto) (0-2) % Lymph # (Auto) (1.2-4.9) X10*3/uL Churchill # (Auto) (0.1-1.2) X10*3/uL Eos # (Auto) (0.0-0.4) X10*3/uL Baso # (Auto) (0.0-0.2) X10*3/uL Abs Immat Gran (auto) (0.00-0.03) X10*3/uL Absolute Neuts (auto) (2.0-8.3) X10*3/uL Absolute Nucleated RBC (0.0-0.012) X10*3/uL Nucleated RBC % (auto) (0.0-0.2) /100WBC PT (10.8-13.0) SEC INR (0.9-1.1) Sodium (135-145) mmol/L Potassium (3.3-5.1) mmol/L Chloride (96-108) mmol/L Carbon Dioxide (22-29) mmol/L Anion Gap (12-20) BUN (9-16) mg/dL Creatinine (0.5-1.4) mg/dL Estim Creat Clear Calc Estimated GFR Random Glucose (60-115) mg/dL Lactic Acid (0.5-2.0) mmol/L Calcium (8.4-10.2) mg/dL Magnesium (1.6-2.6) mg/dL Total Bilirubin (0.0-1.0) mg/dL Direct Bilirubin (0.0-0.5) mg/dL AST (5-37) U/L ALT (0-40) U/L Alkaline Phosphatase (39-117) U/L Ammonia (13-55) umol/L Troponin I High Sens (<3.5-35.0) ng/L Total Protein (6.5-8.0) g/dL Albumin (3.5-5.0) g/dL Urine Color Urine Appearance Urine pH (5.0-8.0) Ur Specific [place] (1.005-1.025) Urine Protein (NEG-TRACE) MG/DL Urine Glucose (UA) (NEG) MG/DL Urine Ketones (NEG) MG/DL Urine Blood (NEG) Urine Nitrite (NEG) Ur Leukocyte Esterase (NEG) Urine RBC (0) /HPF Urine WBC (0-4) /HPF Ur Squamous Epith Cells /LPF Urine Bacteria /LPF Urine Opiates Screen Not Detected (Not Detect) Ur Barbiturates Screen Not Detected (Not Detect) Ur Phencyclidine Scrn Not Detected (Not Detect) Ur Amphetamines Screen Not Detected (Not Detect) U Benzodiazepines Scrn Not Detected (Not Detect) Urine Cocaine Screen Not Detected (Not Detect) U Marijuana (THC) Screen Not Detected (Not Detect) Ethyl Alcohol mg/dL Imaging Data CT head/neck: Attestation: I personally reviewed and interpreted this imaging study as follows: Radiologist's impression: [address] [id number] Scan ReportSigned Patient: Lloyd MolinaMR#: [id number]: 5Acct:[id number]/Sex: 64 / MADM Date: 09/26/20Loc: [address] Dr: Ordering Physician: DANILO GE NP Date of Service: 09/26/20 Procedure(s): CT cervical spine wo con Accession Number(s): [id number] cc: DANILO GE MAIL SERVICE COORDINATOR~ EXAMINATION: CT BRAIN AND CT CERVICAL SPINE X-RAY. CLINICAL INFORMATION: AMS. COMPARISON: None TECHNIQUE: 5 mm thin axial and reformatted 2 mm thin sagittal and coronal images of brain were obtained. Subsequently three-minute thin axial and reformatted 2 mm thin sagittal and coronal images of cervical spine were obtained. DLP 1071. Chest 2 views. FINDINGS: Brain: There is no acute intra-axial, extra-axial bleed, masses or midline shift. There is no acute infarct in evolution. The lateral ventricles are symmetrical in size and configuration without enlargement. There is bibasilar ganglia calcifications. The franks to white matter differentiation is maintained normal. Bone windows reveal no calvarial abnormality. There is mucoperiosteal thickening bilateral maxillary sinuses. Rest of the sinuses are well-aerated. There is minimal mucoperiosteal thickening left mastoid sinus. There is no scalp soft tissue abnormality. There is no calvarial abnormality. Cervical spine: There is mild straightening of cervical lordosis. The vertebral heights and alignment are normal. The craniovertebral junction and C1-C2 alignment is normal. There is mild ventral spondylosis C4-C5, C5-C6 and C6-C7 disc levels. No lytic or sclerotic process seen. The prevertebral and paravertebral soft tissues are normal. The tracheal airway is widely patent. There are large bullae in the right lung apex. CT/CT cervical spine wo con IMPRESSION: No acute intracranial process seen. Chronic bilateral maxillary sinus inflammatory changes. There is no acute fracture or dislocation in cervical spine. There are degenerative disc changes as described above. There is a right apical bullous change. Chest x-ray: Attestation: I personally reviewed and interpreted this imaging study as follows: Radiologist's impression: XAMINATION: Chest. CLINICAL INFORMATION: AMS. TECHNIQUE: Chest 2 views. FINDINGS: The lungs are expanded but clear. The heart size is enlarged. Vascularity is normal. No radiopaque metallic foreign body seen along the right anterolateral chest wall. No gross bony abnormality seen except for mild spondylosis and old healed right rib fractures. IMPRESSION: No acute pulmonary process seen. There is mild cardiomegaly. Multiple radiopaque metallic foreign bodies along the right anterior lateral chest wall. ECG Data ECG #1: Attestation: I personally reviewed and interpreted this ECG as follows: ECG interpretation date: 09/26/20 Interpretation: Seen in combination with Dr. Naranjo Artifact present so difficult to determine EKG But is normal rate of 81, normal OR, normal QRS, QTC 471 Discharge Plan Discharge Clinical Impression: Altered mental status, UTI (urinary tract infection), Hypomagnesemia Patient Disposition: Admitted As Inpatient Prescriptions: No Action pantoprazole 20 mg tablet,delayed release (DR/EC) 20 mg PO QAM Qty: 30 RF: 2 Incruse Ellipta 62.5 mcg/actuation blister with device 1 puff inhalation DAILY RF: 0 lisinopril 30 mg tablet 30 mg PO QAM RF: 0 metoprolol succinate 25 mg tablet extended release 24 hr 25 mg PO BEDTIME RF: 0 atorvastatin 40 mg tablet PO RF: 0 gabapentin 600 mg tablet 600 mg PO QID RF: 0 tamsulosin 0.4 mg capsule 0.4 mg PO DAILY RF: 0 melatonin 5 mg tablet 5 mg PO BEDTIME RF: 0 cholecalciferol (vitamin D3) 50 mcg (2,000 unit) capsule 50 mcg PO QAM RF: 0 phenytoin 50 mg tablet,chewable 100 mg PO TID RF: 0
[2020-09-26 13:20] LABS: Lactic Acid 1.3 mmol/L (0.5-2.0)
[2020-09-26 13:21] LABS: Ethanol < 10 mg/dL
[2020-09-26] MEDS: Labetalol HCL 100 MG/20 ML VIAL 10 MG IVPUSH (13:27)
[2020-09-26 13:36] LABS: Alanine Aminotransferase 19 U/L (0-40); Albumin Level 3.6 g/dL (3.5-5.0); Alkaline Phosphatase 109 U/L (39-117); Anion Gap 16 (12-20); Aspartate Amino Transferase 34 U/L (5-37); Bilirubin Direct 0.9 mg/dL (0.0-0.5); Bilirubin Total 1.7 mg/dL (0.0-1.0); Blood Urea Nitrogen 11 mg/dL (9-16); Calcium 9.6 mg/dL (8.4-10.2); Carbon Dioxide 23 mmol/L (22-29); Chloride 102 mmol/L (96-108); Creatinine Clr Calc Pharmacy 67.8; Estimated Glomerular Filt Rate > 60; Glucose Random 125 mg/dL (60-115); Magnesium 1.2 mg/dL (1.6-2.6); Potassium 3.7 mmol/L (3.3-5.1); Sodium 137 mmol/L (135-145); Total Protein 7.5 g/dL (6.5-8.0); Troponin-I High Sensitivity 58.8 ng/L (<3.5-35.0)
[2020-09-26] MEDS: Magnesium Sulfate/H2O 2 GM/50 ML PIGGYBACK IV (14:23)
[2020-09-26] MEDS: 0.9 % Sodium Chloride 1,000 ML 999 ML IV (14:23)
[2020-09-26 14:25] LABS: Ammonia 56 umol/L (13-55)
[2020-09-26 16:53] LABS: Troponin-I High Sensitivity 66.4 ng/L (<3.5-35.0)
[2020-09-26 17:41] LABS: Glucose Urine UA NEG (NEG); Leukocyte Esterase Urine 2+ (NEG); Nitrite Urine POS (NEG); PH 6.5 (5.0-8.0); Specific Gravity - Urine 1.025 (1.005-1.025); UACC Culture Trigger YES; Urine Blood 1+ (NEG); Urine Ketones 5 MG/DL (NEG); Urine Protein 1+ MG/DL (NEG-TRACE)
[2020-09-26 17:42] LABS: Appearance Urine HAZY; Color Urine YELLOW
[2020-09-26 17:53] LABS: Bacteria Urine 3+ /LPF; Squamous Epithelial Cell Urine TRACE /LPF
[2020-09-26 18:12] LABS: Amphetamine Screen Urine Not Detected (Not Detect); Barbiturates, Urine Not Detected (Not Detect); Benzodiazepines Screen Urine Not Detected (Not Detect); Cannabinoid Screen Urine Not Detected (Not Detect); Cocaine Screen Urine Not Detected (Not Detect); Opiate Screen Urine Not Detected (Not Detect); Phencyclidine Screen Urine Not Detected (Not Detect)
[2020-09-26] MEDS: cefTRIAXone sodium 1 GM in 0.9 % Sodium Chloride 50 ML IV (18:23)
[2020-09-26 20:33] LABS: COVID-19 Test Negative (Negative); IDNOW Serial# 08D9AD1C
--- NOTE | 2020-09-26 21:26 | PC.NURSE ---
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 PATIENT HAD CIGARETTES IN SOCKS, BELONGINGS LIST COMPLETED.
[2020-09-26] MEDS: PHENobarbitaL sodium 130 MG/ML VIAL 274 MG IM (22:17)
--- NOTE | 2020-09-26 22:23 | PC.NURSE ---
PATIENT REFUSING LACTULOSE.
--- NOTE | 2020-09-26 22:44 | PC.NURSE ---
REPORT GIVEN PATIENT, TRANSPORTED TO HOSPITAL ROOM BY RUDY FIELDS
--- NOTE | 2020-09-26 23:42 | P.HPHOSP_ITS ---
History of Present Illness Date of Service: 09/26/20 Chief Complaint: confusion This is a 64-year-old male with past medical history of alcohol abuse liver cirrhosis, hepatitis-C, hypertension, seizures, cardiomyopathy who presents to the hospital after neighbor found patient unresponsive. Patient is very confuse d, not oriented to place or time, unaware of why he is in the hospital. It appears the patient was seen unresponsive on bowel kidney by his neighbor, EMS arrived on scene found patient to be hypoxic in the 80s on room air. Had a respiratory rate of 12. Per report patient was given 0.4 mg of IV Narcan and patient apparently became more responsive. He himself denies any headache, change in vision, no chest pain, no abdominal pain, no nausea or vomiting, no diarrhea constipation, no urinary symptoms and no lower extremity edema. On arrival to the ED patient vital significant for temp of 97.6, heart rate of 88, respiratory rate of 16, blood pressure of 224/107, satting 94% on room air. Labs are significant for WBC count of 7.8, hemoglobin of 15.2, magnesium level of 1.2, total bili of 1.7, ammonia of 56, troponin of 58.8 with a repeat showing 66.4, UA that is positive for nitrites, leukocyte Estrace, WBC, UDS negative. Chest x-ray shows cardiomegaly with no other acute pulmonary process. Head CT shows no acute intracranial process. Chronic bilateral maxillary sinus inflammatory changes Past medical history per EMR Review of Systems Review of Systems: Yes all other systems are reviewed and are negative [facility] Medical History Alcohol abuse Cardiomyopathy Cirrhosis, alcoholic GERD (gastroesophageal reflux disease) Hepatitis C antibody positive in blood Hypertension Seizure Family History Father No problems noted. Mother No problems noted. Brother Cancer Sister No problems noted. Social History Household Members: Unknown / Unable to assess Housing: Unknown / Unable to assess Unable to assess alcohol history related to: Unable to respond and Unknown Alcohol intake: never Smoking Status: Unknown if ever smoked Smoked in Last 30 Days: Yes Use of substances other than those prescribed or required for medical reasons: Unable to respond Substance Use Type: Unknown Last Used Substance: Unknown Currently Displaying Signs/Symptoms of Drug Intoxication Withdrawal: Yes Advance Directives: No Advance Directives Information Provided: Yes Recently lost weight without trying: No How much weight loss: Not applicable Nutrition Risks: No Nutritional Risk Current occupational status: disabled Meds Allergies Allergy/AdvReac Type Severity Reaction Status Date / Time No Known Allergies Allergy Verified 07/22/20 09:27 [No Known Allergies*] Active Medications: Current Medications Generic Name Dose Route Start Last Admin Trade Name Freq PRN Reason Stop Dose Admin Folic Acid 1 mg 09/27/20 09:00 Folic Acid 1 Mg Tablet PO DAILY [facility] Medication 1 each 09/27/20 09:00 No Benzodiazepines MISCELLANE DAILY [facility] Pharmacy Consult 1 each 09/26/20 19:06 Consult Rx Perform Med Rec MISCELLANE ONCE PRN Consult order Phenobarbital 45 mg 09/27/20 09:00 Phenobarbital 15 Mg Tablet PO 09/28/20 21:01 BID [facility] Phenobarbital 15 mg 09/29/20 09:00 Phenobarbital 15 Mg Tablet PO 09/30/20 21:01 BID [facility] Phenobarbital 15 mg 10/01/20 09:00 Phenobarbital 15 Mg Tablet PO 10/02/20 09:01 DAILY [facility] Phenobarbital Sodium 205 mg 09/27/20 01:00 Phenobarbital Sodium 130 Mg/Ml Vial IM 09/27/20 04:01 Q3H [facility] Thiamine HCl 100 mg 09/27/20 09:00 Thiamine Hcl 100 Mg Tablet PO DAILY [facility] Home Medications Medication Instructions Recorded Confirmed Last Taken Type atorvastatin 40 mg tablet 40 mg PO BEDTIME 04/01/20 09/26/20 Unknown History cholecalciferol (vitamin D3) 50 50 mcg PO QAM 04/01/20 09/26/20 Unknown History mcg (2,000 unit) capsule gabapentin 600 mg tablet 600 mg PO TID 04/01/20 09/26/20 Unknown History lisinopril 30 mg tablet 30 mg PO QAM 04/01/20 09/26/20 Unknown History melatonin 5 mg tablet 5 mg PO BEDTIME 04/01/20 09/26/20 Unknown History metoprolol succinate 25 mg 25 mg PO BEDTIME 04/01/20 09/26/20 Unknown History tablet,extended release 24 hr phenytoin 50 mg chewable tablet 100 mg PO TID 04/01/20 09/26/20 Unknown History tamsulosin 0.4 mg capsule 0.4 mg PO DAILY 04/01/20 09/26/20 Unknown History umeclidinium [Incruse Ellipta] 1 puff INHALATION DAILY 09/26/20 09/26/20 Unknown History Physical Exam Vital Signs and Narrative: Vital Signs: Last Vital Signs Temp 98.9 F 09/26/20 23:22 Pulse 70 09/26/20 23:22 Resp 18 09/26/20 23:22 BP 181/92 H 09/26/20 23:22 Pulse Ox 95 09/26/20 23:22 Body Mass Index 25.8 Const: Other: Oriented to self but not place or time, answers yes or no with no other details General: cooperative and no acute distress Eyes: General: appearance normal, both eyes and all related structures Pupils: Equal, round and reactive pupils present Resp: Effort & Inspection: normal respiratory effort and able to speak in complete sentences Cardio: Rate: regular rate Rhythm: regular rhythm GI: Palpation (GI): Soft to palpation Auscultation: normal bowel sounds Skin: General skin exam: no rashes or lesions noted Neuro: Cranial nerves: Yes Equal, round and reactive pupils present Cognition (Neuro): normal cognition Extrem: General: Yes normal to inspection and Yes no pedal edema Results Labs CBC and Chem 7: 09/27/20 04:36 09/26/20 12:51 Labs: Laboratory Results - last 24 hr 09/26/20 09/26/20 09/26/20 12:51 12:51 12:51 MCV 96.8 MCH 32.2 MCHC 33.3 RDW 14.4 Plt Count 253 D MPV 8.9 L Immature Gran % (Auto) 0.4 Neut % (Auto) 62.2 Lymph % (Auto) 25.3 [place] % (Auto) 10.7 Eos % (Auto) 0.8 Baso % (Auto) 0.6 Lymph # (Auto) 2.0 [place] # (Auto) 0.8 Eos # (Auto) 0.1 Baso # (Auto) 0.1 Abs Immat Gran (auto) 0.03 Absolute Neuts (auto) 4.8 Absolute Nucleated RBC 0.000 Nucleated RBC % (auto) 0.0 PT 12.9 INR 1.1 Anion Gap 16 Estim Creat Clear Calc 67.8 Estimated GFR > 60 Random Glucose 125 H Lactic Acid Calcium 9.6 D Magnesium 1.2 L* Total Bilirubin 1.7 H Direct Bilirubin 0.9 H AST 34 D ALT 19 Alkaline Phosphatase 109 D Ammonia Troponin I High Sens Total Protein 7.5 Albumin 3.6 Urine Color Urine Appearance Urine pH Ur Specific [place] Urine Protein Urine Glucose (UA) Urine Ketones Urine Blood Urine Nitrite Ur Leukocyte Esterase Urine RBC Urine WBC Ur Squamous Epith Cells Urine Bacteria Urine Opiates Screen Ur Barbiturates Screen Ur Phencyclidine Scrn Ur Amphetamines Screen U Benzodiazepines Scrn Urine Cocaine Screen U Marijuana (THC) Screen Ethyl Alcohol COVID-19 (KATELYNN) COVID-19 ROVOP 09/26/20 09/26/20 09/26/20 12:51 12:51 12:51 MCV MCH MCHC RDW Plt Count MPV Immature Gran % (Auto) Neut % (Auto) Lymph % (Auto) [place] % (Auto) Eos % (Auto) Baso % (Auto) Lymph # (Auto) [place] # (Auto) Eos # (Auto) Baso # (Auto) Abs Immat Gran (auto) Absolute Neuts (auto) Absolute Nucleated RBC Nucleated RBC % (auto) PT INR Anion Gap Estim Creat Clear Calc Estimated GFR Random Glucose Lactic Acid 1.3 Calcium Magnesium Total Bilirubin Direct Bilirubin AST ALT Alkaline Phosphatase Ammonia Troponin I High Sens 58.8 H* Total Protein Albumin Urine Color Urine Appearance Urine pH Ur Specific [place] Urine Protein Urine Glucose (UA) Urine Ketones Urine Blood Urine Nitrite Ur Leukocyte Esterase Urine RBC Urine WBC Ur Squamous Epith Cells Urine Bacteria Urine Opiates Screen Ur Barbiturates Screen Ur Phencyclidine Scrn Ur Amphetamines Screen U Benzodiazepines Scrn Urine Cocaine Screen U Marijuana (THC) Screen Ethyl Alcohol < 10 COVID-19 (KATELYNN) COVID-19 ROVOP 09/26/20 09/26/20 09/26/20 14:05 16:17 17:34 MCV MCH MCHC RDW Plt Count MPV Immature Gran % (Auto) Neut % (Auto) Lymph % (Auto) [place] % (Auto) Eos % (Auto) Baso % (Auto) Lymph # (Auto) [place] # (Auto) Eos # (Auto) Baso # (Auto) Abs Immat Gran (auto) Absolute Neuts (auto) Absolute Nucleated RBC Nucleated RBC % (auto) PT INR Anion Gap Estim Creat Clear Calc Estimated GFR Random Glucose Lactic Acid Calcium Magnesium Total Bilirubin Direct Bilirubin AST ALT Alkaline Phosphatase Ammonia 56 H Troponin I High Sens 66.4 H* Total Protein Albumin Urine Color YELLOW Urine Appearance HAZY Urine pH 6.5 Ur Specific [place] 1.025 Urine Protein 1+ H Urine Glucose (UA) NEG Urine Ketones 5 Urine Blood 1+ H Urine Nitrite POS H Ur Leukocyte Esterase 2+ H Urine RBC 1-4 Urine WBC 10-14 H Ur Squamous Epith Cells TRACE Urine Bacteria 3+ Urine Opiates Screen Ur Barbiturates Screen Ur Phencyclidine Scrn Ur Amphetamines Screen U Benzodiazepines Scrn Urine Cocaine Screen U Marijuana (THC) Screen Ethyl Alcohol COVID-19 (KATELYNN) COVID-19 [employer] Com 09/26/20 09/26/20 17:34 20:09 MCV MCH MCHC RDW Plt Count MPV Immature Gran % (Auto) Neut % (Auto) Lymph % (Auto) [place] % (Auto) Eos % (Auto) Baso % (Auto) Lymph # (Auto) [place] # (Auto) Eos # (Auto) Baso # (Auto) Abs Immat Gran (auto) Absolute Neuts (auto) Absolute Nucleated RBC Nucleated RBC % (auto) PT INR Anion Gap Estim Creat Clear Calc Estimated GFR Random Glucose Lactic Acid Calcium Magnesium Total Bilirubin Direct Bilirubin AST ALT Alkaline Phosphatase Ammonia Troponin I High Sens Total Protein Albumin Urine Color Urine Appearance Urine pH Ur Specific [place] Urine Protein Urine Glucose (UA) Urine Ketones Urine Blood Urine Nitrite Ur Leukocyte Esterase Urine RBC Urine WBC Ur Squamous Epith Cells Urine Bacteria Urine Opiates Screen Not Detected Ur Barbiturates Screen Not Detected Ur Phencyclidine Scrn Not Detected Ur Amphetamines Screen Not Detected U Benzodiazepines Scrn Not Detected Urine Cocaine Screen Not Detected U Marijuana (THC) Screen Not Detected Ethyl Alcohol COVID-19 (KATELYNN) Negative COVID-19 Clin Com See Note ECG Interpretation: Undetermined rhythm, nonspecific T-wave abnormality Imaging Radiologist's Impressions: Impressions Cervical Spine CT 09/26/20 12:30 IMPRESSION: No acute intracranial process seen. Chronic bilateral maxillary sinus inflammatory changes. There is no acute fracture or dislocation in cervical spine. There are degenerative disc changes as described above. There is a right apical bullous change. Chest X-Ray 09/26/20 12:30 IMPRESSION: No acute intracranial process seen. Chronic bilateral maxillary sinus inflammatory changes. There is no acute fracture or dislocation in cervical spine. There are degenerative disc changes as described above. There is a right apical bullous change. Head CT 09/26/20 12:30 IMPRESSION: No acute intracranial process seen. Chronic bilateral maxillary sinus inflammatory changes. There is no acute fracture or dislocation in cervical spine. There are degenerative disc changes as described above. There is a right apical bullous change. Assessment and Plan (1) Encephalopathy: Status: Acute (2) UTI (urinary tract infection): Status: Acute (3) Hypomagnesemia: Status: Acute (4) Alcohol abuse: Status: Acute (5) Hyperammonemia: Status: Acute (6) Elevated troponin: Status: Acute This is a 64-year-old male with past medical history of alcohol abuse, cardiomyopathy, hepatitis-C positive, who presents to the hospital with confusion found unresponsive by neighbor. # encephalopathy - most likely metabolic encephalopathy secondary to alcohol abuse, as well as UT I, and hyperammonemia in the setting of liver disease - head CT negative - has elevated ammonia level, as well as acute UTI - at this time will start him on lactulose t.i.d. with a goal of 3-4 BMs daily - treat UTI with IV antibiotics - follow cultures - if mentation does not improve consider MRI # UTI - UA positive - will start IV antibiotics - follow cultures # hypomagnesemia - repleted - follow magnesium level # hyperammonemia - secondary to liver disease in the setting of alcohol abuse and hepatitis-C - will treat with lactulose # elevated troponin - no delta - EKG shows T-wave abnormality which was present on previous EKG - will admit to telemetry # alcohol abuse - daily heavy drinker - will start him on phenobarb protocol - folic and thiamine supplement DVT prophylaxis:lovenox
[2020-09-27] VITALS (8 sets, daily range): BP systolic 143–184; BP diastolic 70–90; PULSE 65–72; RESP 16–18; TEMP 35.9–36.7; O2SAT 93–96
[2020-09-27] MEDS: Lactated Ringers 1,000 ML 100 ML IVCONT ×3 (01:02→16:25)
[2020-09-27] MEDS: PHENobarbitaL sodium 130 MG/ML VIAL 205 MG IM ×2 (01:04→04:49)
[2020-09-27] MEDS: Enoxaparin Sodium 40 MG/0.4 ML SYRINGE SUBCUT (01:04)
[2020-09-27] MEDS: 0.9 % Sodium Chloride Flush 3 ML SYRINGE IVFLUSH ×2 (01:05→22:22)
[2020-09-27 05:09] LABS: MANUAL DIFF FLAG NO
[2020-09-27 05:13] LABS: Basophils Absolute Auto 0.1 X10*3/uL (0.0-0.2); Basophils Percent Auto 0.7 % (0-2); Eosinophils Absolute Auto 0.3 X10*3/uL (0.0-0.4); Eosinophils Percent Auto 3.8 % (0-4); Hematocrit 42.9 % (42-52); Hemoglobin 14.2 g/dl (14.0-18.0); Imm Gran Abs Auto 0.01 X10*3/uL (0.00-0.03); Imm Gran Pct Auto 0.1 % (0.0-0.4); Lymphocytes Absolute Auto 3.6 X10*3/uL (1.2-4.9); Lymphocytes Percent Auto 49.1 % (20-40); Mean Corpuscular HGB Conc 33.1 g/dl (31.0-36.0); Mean Corpuscular Hemoglobin 32.6 pg (27.0-33.0); Mean Corpuscular Volume 98.6 fL (80-98); Mean Platelet Volume 9.1 fL (9.4-12.4); Monocytes Absolute Auto 0.7 X10*3/uL (0.1-1.2); Neutrophils Absolute Auto 2.7 X10*3/uL (2.0-8.3); Neutrophils Percent Auto 37.3 % (45-73); Platelet Count 225 X10*3/uL (160-400); Red Blood Count 4.35 X10*6/uL (4.60-5.80); Red Cell Distribution Width 14.5 % (11.0-16.0); White Blood Count 7.4 X10*3/uL (4.8-10.8)
[2020-09-27 05:46] LABS: Anion Gap 11 (12-20); Blood Urea Nitrogen 11 mg/dL (9-16); Calcium 8.7 mg/dL (8.4-10.2); Carbon Dioxide 28 mmol/L (22-29); Chloride 104 mmol/L (96-108); Creatinine Clr Calc Pharmacy 87.9; Estimated Glomerular Filt Rate > 60; Glucose Random 82 mg/dL (60-115); Potassium 4.3 mmol/L (3.3-5.1); Sodium 139 mmol/L (135-145)
[2020-09-27] MEDS: Lactulose 20 GM/30 ML SOLUTION 30 GM PO ×3 (08:47→20:18)
[2020-09-27] MEDS: PHENobarbitaL 15 MG TABLET 45 MG PO ×2 (08:48→20:17)
[2020-09-27] MEDS: Cholecalciferol (Vitamin D3) 25 MCG TABLET 50 MCG PO (08:48)
[2020-09-27] MEDS: Phenytoin Chewable 50 MG TAB.CHEW 100 MG PO ×3 (08:48→20:17)
[2020-09-27] MEDS: Folic Acid 1 MG TABLET PO (08:49)
[2020-09-27] MEDS: lisinopriL 10 MG TABLET 30 MG PO (08:50)
--- NOTE | 2020-09-27 09:00 | MHC.RECOVRN ---
64 year old male presented to [facility] ED on 09/26 via EMS due to Per EMS, pt seen unresponsive on balcony, EMS arrived w/ spo2 of 80 % RA, RR of ?12. Pt more responsive after 0.4mg IV Narcan. Pt reports unknown amount of rum, denies other substance use. Alert, oriented to place only, very poor historian. Only c/o increased depression, denies si/hi per pile driver operator helper. Upon evaluation, pt admitted for treatment of encephalopathy, UTI, hypomagnesemia, AUD, hyperammonemia, and elevated troponin.? T/w met with pt in 373, with dye winch operator, after consult was placed to the CARE Team for ETOH and question of other substances. Initial tox screen was negative and etoh <10. During interview, pt attempting to pull out IV at times. Pt oriented to place ([place]), unsure of why he is here. Pt attempting to eat breakfast at this time, staff informed t/w that pt needed redirection many times during breakfast, was trying to open syrup with a spoon, appears confused.? Due to pts current condition, minimal conversation occurred. Pt reports 7 bottles of rum daily, last use yesterday. Pt reports cocaine use, IN, when asked amount, pt states 7. Pt reports longest amount of time in recovery was 6 months, unsure of when this was. Pt does not remember at what age alcohol use began. Pt denies ever receiving treatment for AUD, including ATS.? Pt unable to continue discussion regarding alcohol use and recovery/recovery resources at this time. Case discussed with pts RN.??
[2020-09-27 10:02] LABS: Troponin-I High Sensitivity 54.3 ng/L (<3.5-35.0)
[2020-09-27] MEDS: Thiamine HCL 100 MG TABLET PO (10:29)
[2020-09-27 10:46] LABS: Phenytoin Dilantin < 0.5 ug/mL (10.0-20.0)
--- NOTE | 2020-09-27 12:36 | MHC.CM.PN ---
Addendum entered by Ranjana Gomez RN 09/27/20 12:46: D/C PLAN: UNCLEAR AT THIS TIME POSSIBLY HOME SELF-CARE VS TX PROGRAM VS STR, PT WILL NOT QUALIFY FOR VNA DUE TO NOT SEEING NEW PROVIDER. Original Note: IMM 09/27/20, EMR REVIEWED PT ADMITTED W/ENCEPHALOPATHY, CM MET W/PT VIA SCREEN PRINTING PASTER , PT IS ALERT HOWEVER ORIENTED TO SELF ONLY, PT REPORT HE LIVES ALONE, HAS A CANE AND NO OTHER DME, PT DENIES HOME SERVICES. PT DOES NOT REMEMBER HIS PCP BUT GOES TO [facility], PT APPEARED TO HAVE MORE CONFUSION AND HAD MORE DIFFICULTY ANSWERING QUESTIONS AND BY END OF INTERVIEW PT APPEARED TO BE HALLUCINATING AND WAS REACHING INTO THE AIR AND RETRIEVING ITEMS NOT THERE AND THEN APPEARED TO REACH FOR SOMETHING AND WASH HIS FACE WITH IT. PCP: MANUEL ROSALES, PT HAS NOT SEEN HER YET AND WAS SEEING JAVIER JACINTO WHO HAS LEFT THE PRACTICE. HCP: PT REPORTED HE HAS AN HCP HOWEVER IT DID NOT APPEAR HE UNDERSTOOD WHAT AN HCP IS AND COULD NOT NAME HIS HEALTHCARE AGENT.
--- NOTE | 2020-09-27 17:58 | P.PNIM_ITS ---
Subjective Subjective Date of Service: 09/27/20 Interval History: Still quite confused, oriented only to self Unclear about EtOH or other drug intake Physical Exam Vital Signs: Vital Signs: Last Vital Signs Temp 97.9 F 09/27/20 15:15 Pulse 65 09/27/20 15:15 Resp 16 09/27/20 15:15 BP 144/75 H 09/27/20 15:15 Pulse Ox 96 09/27/20 15:15 Body Mass Index 25.8 Gen: confused, somehwat disheveled HEENT: sclera anicteric, moist mucus membranes, edentulous Neck: supple Lungs: clear to auscultation bilaterally Heart: regular rate and rhythm, no murmurs Abd: soft, non-tender, non-distended Ext: no edema Skin: warm/well-perfused Neuro: alert and oriented to self only, no focal findings Psych: impaired insight Objective Data Current Medications Generic Name Dose Route Start Last Admin Trade Name Freq PRN Reason Stop Dose Admin Acetaminophen 650 mg 09/26/20 23:54 Acetaminophen 325 Mg Tablet PO Q6H PRN Pain, Mild (Pain Scale 1-3) Atorvastatin Calcium 40 mg 09/27/20 21:00 Atorvastatin Calcium 40 Mg Tablet PO BEDTIME MILAGROS Docusate Sodium 100 mg 09/26/20 23:54 Docusate Sodium 100 Mg Capsule PO DAILY PRN Constipation Enoxaparin Sodium 40 mg 09/27/20 01:00 09/27/20 01:04 Enoxaparin Sodium 40 Mg/0.4 Ml Syringe SUBCUT 40 mg Q24H MILAGROS Administration Folic Acid 1 mg 09/27/20 09:00 09/27/20 08:49 Folic Acid 1 Mg Tablet PO 1 mg DAILY MILAGROS Administration Ceftriaxone Sodium 1 gm/ 50 mls @ 100 mls/hr 09/27/20 18:00 Sodium Chloride IV Q24H MILAGROS Lactated Ringer's 1,000 mls @ 100 mls/hr 09/26/20 23:54 09/27/20 17:39 Lr IVCONT 0 mls/hr .Q10H MILAGROS Infusion Lactulose 30 gm 09/27/20 09:00 09/27/20 14:54 Lactulose 20 Gm/30 Ml Solution PO 30 gm TID MILAGROS Administration Lisinopril 30 mg 09/27/20 09:00 09/27/20 08:50 Lisinopril 10 Mg Tablet PO 30 mg DAILY [facility] Administration Protocol Medication 1 each 09/27/20 09:00 No Benzodiazepines MISCELLANE DAILY [facility] Melatonin 6 mg 09/27/20 21:00 Melatonin 3 Mg Tablet PO BEDTIME [facility] Metoprolol Succinate 25 mg 09/27/20 21:00 Metoprolol Succinate Er 25 Mg Tab.Er.24h PO BEDTIME [facility] Protocol Omeprazole 20 mg 09/27/20 06:30 09/27/20 05:02 Omeprazole 20 Mg Capsule.Dr PO Not Given DAILY@0630 [facility] Ondansetron HCl 4 mg 09/26/20 23:54 Ondansetron Hcl 4 Mg/2 Ml Vial IVPUSH Q8H PRN Nausea and Vomiting Pharmacy Consult 1 each 09/26/20 19:06 Consult Rx Perform Med Rec MISCELLANE ONCE PRN Consult order Phenobarbital 45 mg 09/27/20 09:00 09/27/20 08:48 Phenobarbital 15 Mg Tablet PO 09/28/20 21:01 45 mg BID [facility] Administration Phenobarbital 15 mg 09/29/20 09:00 Phenobarbital 15 Mg Tablet PO 09/30/20 21:01 BID [facility] Phenobarbital 15 mg 10/01/20 09:00 Phenobarbital 15 Mg Tablet PO 10/02/20 09:01 DAILY [facility] Phenytoin 100 mg 09/27/20 09:00 09/27/20 14:54 Phenytoin Chewable 50 Mg Tab.Chew PO 100 mg TID [facility] Administration Sodium Chloride 3 ml 09/27/20 00:00 09/27/20 15:50 0.9 % Sodium Chloride Flush 3 Ml Syringe IVFLUSH Not Given QSHIFT [facility] Tamsulosin HCl 0.4 mg 09/27/20 17:30 Tamsulosin Hcl 0.4 Mg Capsule PO DAILY@1730 [facility] Thiamine HCl 100 mg 09/27/20 09:00 09/27/20 10:29 Thiamine Hcl 100 Mg Tablet PO 100 mg DAILY [facility] Administration Tiotropium [place] 1 puff 09/27/20 08:00 09/27/20 11:25 Tiotropium [place] 18 Mcg Cap.W.Dev INHALE Not Given RDAILY [facility] Vitamin D 50 mcg 09/27/20 09:00 09/27/20 08:48 Cholecalciferol (Vitamin D3) 25 Mcg Tablet PO 50 mcg DAILY [facility] Administration Labs CBC & Chem 7: 09/27/20 04:36 09/27/20 04:36 Labs: Laboratory Results - last 24 hr 09/26/20 09/26/20 09/27/20 17:34 20:09 04:36 WBC 7.4 RBC 4.35 L Hgb 14.2 Hct 42.9 MCV 98.6 H MCH 32.6 MCHC 33.1 RDW 14.5 Plt Count 225 MPV 9.1 L Immature Gran % (Auto) 0.1 Neut % (Auto) 37.3 L Lymph % (Auto) 49.1 H [place] % (Auto) 9.0 Eos % (Auto) 3.8 Baso % (Auto) 0.7 Lymph # (Auto) 3.6 [place] # (Auto) 0.7 Eos # (Auto) 0.3 Baso # (Auto) 0.1 Abs Immat Gran (auto) 0.01 Absolute Neuts (auto) 2.7 Absolute Nucleated RBC 0.000 Nucleated RBC % (auto) 0.0 Sodium Potassium Chloride Carbon Dioxide Anion Gap BUN Creatinine Estim Creat Clear Calc Estimated GFR Random Glucose Calcium Magnesium Troponin I High Sens Urine Opiates Screen Not Detected Ur Barbiturates Screen Not Detected Phenytoin Ur Phencyclidine Scrn Not Detected Ur Amphetamines Screen Not Detected U Benzodiazepines Scrn Not Detected Urine Cocaine Screen Not Detected U Marijuana (THC) Screen Not Detected COVID-19 (KATELYNN) Negative COVID-19 Clin Com See Note 09/27/20 09/27/20 09/27/20 04:36 08:28 08:28 WBC RBC Hgb Hct MCV MCH MCHC RDW Plt Count MPV Immature Gran % (Auto) Neut % (Auto) Lymph % (Auto) [place] % (Auto) Eos % (Auto) Baso % (Auto) Lymph # (Auto) [place] # (Auto) Eos # (Auto) Baso # (Auto) Abs Immat Gran (auto) Absolute Neuts (auto) Absolute Nucleated RBC Nucleated RBC % (auto) Sodium 139 Potassium 4.3 Chloride 104 Carbon Dioxide 28 Anion Gap 11 L BUN 11 Creatinine 0.81 Estim Creat Clear Calc 87.9 Estimated GFR > 60 Random Glucose 82 Calcium 8.7 D Magnesium 2.0 Troponin I High Sens 54.3 H* Urine Opiates Screen Ur Barbiturates Screen Phenytoin < 0.5 L* Ur Phencyclidine Scrn Ur Amphetamines Screen U Benzodiazepines Scrn Urine Cocaine Screen U Marijuana (THC) Screen COVID-19 (KATELYNN) COVID-19 Clin Com Microbiology Microbiology Results: Microbiology 09/26/20 17:43 Urine clean catch - Clean Catch Midstream Urine Culture - Preliminary Culture in progress. 09/26/20 18:14 Blood - Venous Blood Culture - Preliminary Assessment and Plan (1) Hyperammonemia: Status: Acute (2) Encephalopathy: Status: Acute (3) Altered mental status: Status: Acute (4) UTI (urinary tract infection): Status: Acute Assessment and Plan: hospital d#2 64yo M with hx EtOH abuse, cirrhosis, HCV [cured], HTN presented to the hospital after being found unresponsitve by his neighbor admitted with encephalopathy, likely hepatic, and HTN urgency # encephalopathy - treat hepatic component with rifaximin + lactulose - treat possible component of Wernicke/Korskoff with IV thiamine - Utox negative but will check opiate GC/MS given his hx of opioid abuse [also hx cocaine abuse] - d/c gabapentin # UTI - ceftriaxone d#2, follow UCx # HTN urgency - resolved with resumption of home meds [lisinopril, metoprolol succinate] # hypoMg - repleted # hx cardiomyopathy - not in decompensated HF. continue BRITNEY-I, B-david # seizure hx - continue phenytoin. clearly was not taking it [level undetectable] # Tn-I elevation - delta <50%, old T wave abnormality on EKG, not ACS - will treat with lactulose # alcohol abuse - phenobarbital taper - supplement thiamine + folate # GERD - continue PPI # VTE ppx - LMWH # VTE ppx - SCDs
[2020-09-27] MEDS: Tamsulosin HCL 0.4 MG CAPSULE PO (18:12)
[2020-09-27] MEDS: PHENobarbitaL sodium 130 MG/ML VIAL 65 MG IM (18:50)
--- NOTE | 2020-09-27 19:28 | PC.NURSE ---
545 AM LAB NOTIFIED WITH POSITIVE BLOOD CX ONE SET GR.POSITIVE RODS DR NAZARIO NOTIFIED PT ALREADY ON ABX.
[2020-09-27] MEDS: Melatonin 3 MG TABLET 6 MG PO (20:17)
[2020-09-27] MEDS: Metoprolol Succinate ER 25 MG TAB.ER.24H PO (20:17)
[2020-09-27] MEDS: rifAXIMin 550 MG TABLET PO (20:18)
[2020-09-27] MEDS: PHENobarbitaL sodium 130 MG/ML VIAL 140 MG IM (20:18)
[2020-09-27] MEDS: Atorvastatin Calcium 40 MG TABLET PO (20:18)
[2020-09-27] MEDS: cefTRIAXone sodium 1 GM in 0.9 % Sodium Chloride 50 ML IV (21:31)
[2020-09-27] MEDS: Thiamine HCL 500 MG in 0.9 % Sodium Chloride 100 ML 210 MG IV (22:06)
[2020-09-28] VITALS (8 sets, daily range): BP systolic 156–179; BP diastolic 64–98; PULSE 49–92; RESP 16–20; TEMP 35.7–36.7; O2SAT 94–99
--- NOTE | 2020-09-28 00:24 | MHC.PIE ---
late entry 09/28/19 1900; p; pt anxious, agitated, confused and uncooperative with care. pt trying to get out of bed and room numerous times, pt pulled out iv multiple times and pt hallucinating - pt belives he is at his house and we/staff broke in and so on. note; stat phenobarb 65 gm im given at 1850 with no effect. i; security called, sitter changed to male, dr sheffield notified - new order phenobarb 140 mg im now e; pt now in bed, sitter in room, will cont to monitor
[2020-09-28] MEDS: Omeprazole 20 MG CAPSULE.DR PO (04:52)
[2020-09-28] MEDS: Thiamine HCL 500 MG in 0.9 % Sodium Chloride 100 ML 210 MG IV ×3 (05:03→21:10)
[2020-09-28] MEDS: Lactated Ringers 1,000 ML 100 ML IVCONT (05:36)
[2020-09-28] MEDS: PHENobarbitaL 15 MG TABLET 45 MG PO ×2 (08:05→22:28)
[2020-09-28] MEDS: lisinopriL 10 MG TABLET 30 MG PO (08:05)
[2020-09-28] MEDS: Phenytoin Chewable 50 MG TAB.CHEW 100 MG PO ×3 (08:05→22:29)
[2020-09-28] MEDS: Cholecalciferol (Vitamin D3) 25 MCG TABLET 50 MCG PO (08:05)
[2020-09-28] MEDS: rifAXIMin 550 MG TABLET PO ×2 (08:06→22:28)
[2020-09-28] MEDS: Folic Acid 1 MG TABLET PO (08:06)
[2020-09-28] MEDS: Lactulose 20 GM/30 ML SOLUTION 30 GM PO ×2 (08:06→13:57)
[2020-09-28 08:07] LABS: Hematocrit 42.6 % (42-52); Hemoglobin 13.9 g/dl (14.0-18.0); Mean Corpuscular HGB Conc 32.6 g/dl (31.0-36.0); Mean Corpuscular Hemoglobin 32.7 pg (27.0-33.0); Mean Corpuscular Volume 100.2 fL (80-98); Mean Platelet Volume 9.5 fL (9.4-12.4); Platelet Count 184 X10*3/uL (160-400); Red Blood Count 4.25 X10*6/uL (4.60-5.80); Red Cell Distribution Width 14.4 % (11.0-16.0); White Blood Count 5.7 X10*3/uL (4.8-10.8)
[2020-09-28 08:26] LABS: Alanine Aminotransferase 15 U/L (0-40); Albumin Level 2.9 g/dL (3.5-5.0); Alkaline Phosphatase 79 U/L (39-117); Anion Gap 12 (12-20); Aspartate Amino Transferase 36 U/L (5-37); Bilirubin Total 0.9 mg/dL (0.0-1.0); Blood Urea Nitrogen 8 mg/dL (9-16); Carbon Dioxide 25 mmol/L (22-29); Chloride 108 mmol/L (96-108); Estimated Glomerular Filt Rate > 60; Glucose Random 93 mg/dL (60-115); Magnesium 1.7 mg/dL (1.6-2.6); Potassium 4.5 mmol/L (3.3-5.1); Sodium 140 mmol/L (135-145); Total Protein 5.8 g/dL (6.5-8.0)
[2020-09-28 09:10] LABS: Ammonia 84 umol/L (13-55)
[2020-09-28] MEDS: Nicotine 14 MG PATCH.TD24 TRANSDERMA (13:57)
--- NOTE | 2020-09-28 15:11 | P.PNIM_ITS ---
Subjective Subjective Date of Service: 09/28/20 Interval History: Remains quite confused. He thinks he is at a friend's house. Occasionally agitated. Denies pain Physical Exam Vital Signs: Vital Signs: Last Vital Signs Temp 96.9 F 09/28/20 11:11 Pulse 67 09/28/20 11:11 Resp 18 09/28/20 11:11 BP 179/80 H 09/28/20 11:11 Pulse Ox 99 09/28/20 11:11 Body Mass Index 25.8 Gen: somewhat agitated HEENT: sclera anicteric, moist mucus membranes, edentulous Neck: supple Lungs: clear to auscultation bilaterally Heart: regular rate and rhythm, no murmurs Abd: soft, non-tender, non-distended Ext: no edema Skin: warm/well-perfused Neuro: Disoriented; asterixis has resolved Psych: Inappropriate affect, impaired insight Objective Data Current Medications Generic Name Dose Route Start Last Admin Trade Name Freq PRN Reason Stop Dose Admin Acetaminophen 650 mg 09/26/20 23:54 Acetaminophen 325 Mg Tablet PO Q6H PRN Pain, Mild (Pain Scale 1-3) Atorvastatin Calcium 40 mg 09/27/20 21:00 09/27/20 20:18 Atorvastatin Calcium 40 Mg Tablet PO 40 mg BEDTIME MILAGROS Administration Docusate Sodium 100 mg 09/26/20 23:54 Docusate Sodium 100 Mg Capsule PO DAILY PRN Constipation Enoxaparin Sodium 40 mg 09/27/20 01:00 09/27/20 22:22 Enoxaparin Sodium 40 Mg/0.4 Ml Syringe SUBCUT Not Given Q24H MILAGROS Folic Acid 1 mg 09/27/20 09:00 09/28/20 08:06 Folic Acid 1 Mg Tablet PO 1 mg DAILY MILAGROS Administration Lactated Ringer's 1,000 mls @ 100 mls/hr 09/26/20 23:54 09/28/20 05:36 Lr IVCONT 100 mls/hr .Q10H MILAGROS Administration Thiamine HCl 500 mg/ Sodium 105 mls @ 210 mls/hr 09/27/20 22:00 09/28/20 05:35 Chloride IV Infused Q8H MILAGROS Infusion Ceftriaxone Sodium 1 gm/ 50 mls @ 100 mls/hr 09/27/20 20:00 09/27/20 22:06 Sodium Chloride IV Infused Q24H MILAGROS Infusion Lactulose 30 gm 09/27/20 09:00 09/28/20 13:57 Lactulose 20 Gm/30 Ml Solution PO 30 gm TID MILAGROS Administration Lisinopril 30 mg 09/27/20 09:00 09/28/20 08:05 Lisinopril 10 Mg Tablet PO 30 mg DAILY MILAGROS Administration Protocol Medication 1 each 09/27/20 09:00 No Benzodiazepines MISCELLANE DAILY MILAGROS Melatonin 6 mg 09/27/20 21:00 09/27/20 20:17 Melatonin 3 Mg Tablet PO 6 mg BEDTIME MILAGROS Administration Metoprolol Succinate 25 mg 09/27/20 21:00 09/27/20 20:17 Metoprolol Succinate Er 25 Mg Tab.Er.24h PO 25 mg BEDTIME MILAGROS Administration Protocol Nicotine 14 mg 09/28/20 12:45 09/28/20 13:57 Nicotine 14 Mg Patch.Td24 TRANSDERMA 14 mg DAILY MILAGROS Administration Omeprazole 20 mg 09/27/20 06:30 09/28/20 04:52 Omeprazole 20 Mg Capsule.Dr PO 20 mg DAILY@0630 MILAGROS Administration Ondansetron HCl 4 mg 09/26/20 23:54 Ondansetron Hcl 4 Mg/2 Ml Vial IVPUSH Q8H PRN Nausea and Vomiting Pharmacy Consult 1 each 09/26/20 19:06 Consult Rx Perform Med Rec MISCELLANE ONCE PRN Consult order Phenobarbital 45 mg 09/27/20 09:00 09/28/20 08:05 Phenobarbital 15 Mg Tablet PO 09/28/20 21:01 45 mg BID MILAGROS Administration Phenobarbital 15 mg 09/29/20 09:00 Phenobarbital 15 Mg Tablet PO 09/30/20 21:01 BID MILAGROS Phenobarbital 15 mg 10/01/20 09:00 Phenobarbital 15 Mg Tablet PO 10/02/20 09:01 DAILY MILAGROS Phenytoin 100 mg 09/27/20 09:00 09/28/20 13:57 Phenytoin Chewable 50 Mg Tab.Chew PO 100 mg TID MILAGROS Administration Rifaximin 550 mg 09/27/20 21:00 09/28/20 08:06 Rifaximin 550 Mg Tablet PO 550 mg BID MILAGROS Administration Sodium Chloride 3 ml 09/27/20 00:00 09/28/20 08:06 0.9 % Sodium Chloride Flush 3 Ml Syringe IVFLUSH Not Given QSHIFT MILAGROS Tamsulosin HCl 0.4 mg 09/27/20 17:30 09/27/20 18:12 Tamsulosin Hcl 0.4 Mg Capsule PO 0.4 mg DAILY@1730 [facility] Administration Tiotropium [place] 1 puff 09/27/20 08:00 09/28/20 07:35 Tiotropium [place] 18 Mcg Cap.W.Dev INHALE 1 puff RDAILY [facility] Administration Vitamin D 50 mcg 09/27/20 09:00 09/28/20 08:05 Cholecalciferol (Vitamin D3) 25 Mcg Tablet PO 50 mcg DAILY MILAGROS Administration Labs CBC & Chem 7: 09/28/20 07:18 09/28/20 07:18 Labs: Laboratory Results - last 24 hr 09/27/20 09/28/20 09/28/20 18:57 07:18 07:18 WBC 5.7 RBC 4.25 L Hgb 13.9 L Hct 42.6 MCV 100.2 H MCH 32.7 MCHC 32.6 RDW 14.4 Plt Count 184 MPV 9.5 Absolute Nucleated RBC 0.000 Nucleated RBC % (auto) 0.0 Sodium 140 Potassium 4.5 Chloride 108 Carbon Dioxide 25 Anion Gap 12 BUN 8 L Creatinine 0.80 Estim Creat Clear Calc 89.0 Estimated GFR > 60 Random Glucose 93 Calcium 9.0 Magnesium 1.7 Total Bilirubin 0.9 AST 36 ALT 15 Alkaline Phosphatase 79 D Ammonia Total Protein 5.8 L D Albumin 2.9 L Vitamin B1 Cancelled 09/28/20 08:26 WBC RBC Hgb Hct MCV MCH MCHC RDW Plt Count MPV Absolute Nucleated RBC Nucleated RBC % (auto) Sodium Potassium Chloride Carbon Dioxide Anion Gap BUN Creatinine Estim Creat Clear Calc Estimated GFR Random Glucose Calcium Magnesium Total Bilirubin AST ALT Alkaline Phosphatase Ammonia 84 H Total Protein Albumin Vitamin B1 Microbiology Microbiology Results: Microbiology 09/26/20 17:43 Urine clean catch - Clean Catch Midstream Urine Culture - Preliminary Culture in progress. 09/26/20 18:14 Blood - Venous Blood Culture - Final Bacillus species 09/27/20 06:28 Blood - Venous Blood Culture - Preliminary No growth after 24 hours. 09/27/20 06:28 Blood - Venous Blood Culture - Preliminary No growth after 24 hours. 09/26/20 18:21 Blood - Venous Blood Culture - Preliminary No growth after 24 hours. Assessment and Plan (1) Hyperammonemia: Status: Acute (2) Encephalopathy: Status: Acute (3) Altered mental status: Status: Acute (4) UTI (urinary tract infection): Status: Acute Assessment and Plan: hospital d#3 64yo M with hx EtOH abuse, cirrhosis, HCV [treated/cured], HTN presented to the hospital after being found unresponsitve by his neighbor admitted with encephalopathy, likely hepatic, and HTN urgency # encephalopathy - treat hepatic component with rifaximin + lactulose - treat possible component of Wernicke/Korskoff with IV thiamine; send B1 level - Utox negative but sent opiate GC/MS given his hx of opioid abuse [also hx cocaine abuse] - also possibly had a seizure- pt not taking phenytoin as prescribed - d/c gabapentin # UTI - ceftriaxone d#3, follow UCx. 1/2 BCx with Bacillus sp unlikely to be pathogen # HTN urgency - resolved with resumption of home meds [lisinopril, metoprolol succinate]; historically noncompliant with medications # hypoMg - repleted # hx cardiomyopathy - not in decompensated HF. continue BRITNEY-I, B-david # seizure hx - continue phenytoin. clearly was not taking it [level undetectable] # Tn-I elevation - delta <50%, old T wave abnormality on EKG, not ACS # alcohol abuse - phenobarbital taper - supplement thiamine + folate - counseling # GERD - continue PPI # VTE ppx - LMWH # dispo - PT eval
[2020-09-28] MEDS: PHENobarbitaL sodium 130 MG/ML VIAL 65 MG IM (16:47)
[2020-09-28] MEDS: Tamsulosin HCL 0.4 MG CAPSULE PO (16:48)
[2020-09-28] MEDS: 0.9 % Sodium Chloride Flush 3 ML SYRINGE IVFLUSH ×2 (17:47→22:30)
[2020-09-28] MEDS: cefTRIAXone sodium 1 GM in 0.9 % Sodium Chloride 50 ML IV (20:31)
[2020-09-28] MEDS: Metoprolol Succinate ER 25 MG TAB.ER.24H PO (22:28)
[2020-09-28] MEDS: Atorvastatin Calcium 40 MG TABLET PO (22:29)
[2020-09-28] MEDS: Melatonin 3 MG TABLET 6 MG PO (22:29)
[2020-09-29] VITALS (7 sets, daily range): BP systolic 155–172; BP diastolic 60–98; PULSE 58–72; RESP 16–20; TEMP 36.2–36.9; O2SAT 96–99
[2020-09-29] MEDS: Thiamine HCL 500 MG in 0.9 % Sodium Chloride 100 ML 210 MG IV ×2 (05:52→14:05)
[2020-09-29] MEDS: Omeprazole 20 MG CAPSULE.DR PO (05:58)
[2020-09-29 08:18] LABS: Basophils Percent Auto 0.7 % (0-2); Eosinophils Absolute Auto 0.4 X10*3/uL (0.0-0.4); Eosinophils Percent Auto 6.2 % (0-4); Hematocrit 42.4 % (42-52); Hemoglobin 13.6 g/dl (14.0-18.0); Imm Gran Abs Auto 0.01 X10*3/uL (0.00-0.03); Imm Gran Pct Auto 0.2 % (0.0-0.4); Lymphocytes Absolute Auto 2.1 X10*3/uL (1.2-4.9); Lymphocytes Percent Auto 34.6 % (20-40); MANUAL DIFF FLAG SCAN; Mean Corpuscular HGB Conc 32.1 g/dl (31.0-36.0); Mean Corpuscular Hemoglobin 32.9 pg (27.0-33.0); Mean Corpuscular Volume 102.7 fL (80-98); Mean Platelet Volume 9.3 fL (9.4-12.4); Monocytes Absolute Auto 1.4 X10*3/uL (0.1-1.2); Monocytes Percent Auto 22.3 % (2-11); Neutrophils Absolute Auto 2.2 X10*3/uL (2.0-8.3); Platelet Count 146 X10*3/uL (160-400); Red Blood Count 4.13 X10*6/uL (4.60-5.80); Red Cell Distribution Width 14.4 % (11.0-16.0); SCAN SMEAR FLAG 1; White Blood Count 6.1 X10*3/uL (4.8-10.8)
[2020-09-29] MEDS: Cholecalciferol (Vitamin D3) 25 MCG TABLET 50 MCG PO (08:24)
[2020-09-29] MEDS: Lactulose 20 GM/30 ML SOLUTION 30 GM PO ×3 (08:24→19:53)
[2020-09-29] MEDS: PHENobarbitaL 15 MG TABLET PO ×2 (08:24→19:51)
[2020-09-29] MEDS: Nicotine 14 MG PATCH.TD24 TRANSDERMA (08:25)
[2020-09-29] MEDS: 0.9 % Sodium Chloride Flush 3 ML SYRINGE IVFLUSH ×3 (08:25→23:21)
[2020-09-29] MEDS: rifAXIMin 550 MG TABLET PO ×2 (08:25→19:51)
[2020-09-29] MEDS: Folic Acid 1 MG TABLET PO (08:25)
[2020-09-29] MEDS: Phenytoin Chewable 50 MG TAB.CHEW 100 MG PO ×3 (08:25→20:05)
[2020-09-29] MEDS: lisinopriL 10 MG TABLET 30 MG PO (08:25)
[2020-09-29 08:40] LABS: Anion Gap 13 (12-20); Blood Urea Nitrogen 6 mg/dL (9-16); Calcium 8.9 mg/dL (8.4-10.2); Carbon Dioxide 23 mmol/L (22-29); Chloride 107 mmol/L (96-108); Creatinine Clr Calc Pharmacy 92.5; Estimated Glomerular Filt Rate > 60; Glucose Random 83 mg/dL (60-115); Magnesium 1.8 mg/dL (1.6-2.6); Potassium 4.2 mmol/L (3.3-5.1); Sodium 139 mmol/L (135-145)
[2020-09-29 08:55] LABS: SLIDE REVIEW VERIFIED
--- NOTE | 2020-09-29 16:07 | HO.PM.IMPN ---
Subjective Subjective Date of Service: 09/29/20 Interval History: Now knows he's in [facility]. Has no idea about the year/month. Thinks he may have had an epileptic seizure at his friend's house. No complaints Physical Exam Vital Signs: Vital Signs: Last Vital Signs Temp 97.7 F 09/29/20 15:12 Pulse 68 09/29/20 15:12 Resp 18 09/29/20 15:12 BP 162/82 H 09/29/20 15:12 Pulse Ox 99 09/29/20 15:12 Body Mass Index 25.8 Gen: calm, NAD HEENT: sclera anicteric, moist mucus membranes, edentulous Neck: supple Lungs: clear to auscultation bilaterally Heart: regular rate and rhythm, no murmurs Abd: soft, non-tender, non-distended Ext: no edema Skin: warm/well-perfused Neuro: oriented to self/place but not to date. Asterixis elicited Psych: Inappropriate affect, impaired insight Objective Data Current Medications Generic Name Dose Route Start Last Admin Trade Name [place] PRN Reason Stop Dose Admin Acetaminophen 650 mg 09/26/20 23:54 Acetaminophen 325 Mg Tablet PO Q6H PRN Pain, Mild (Pain Scale 1-3) Atorvastatin Calcium 40 mg 09/27/20 21:00 09/28/20 22:29 Atorvastatin Calcium 40 Mg Tablet PO 40 mg BEDTIME MILAGROS Administration Docusate Sodium 100 mg 09/26/20 23:54 Docusate Sodium 100 Mg Capsule PO DAILY PRN Constipation Enoxaparin Sodium 40 mg 09/27/20 01:00 09/29/20 01:07 Enoxaparin Sodium 40 Mg/0.4 Ml Syringe SUBCUT Not Given Q24H MILAGROS Folic Acid 1 mg 09/27/20 09:00 09/29/20 08:25 Folic Acid 1 Mg Tablet PO 1 mg DAILY MILAGROS Administration Thiamine HCl 500 mg/ Sodium 105 mls @ 210 mls/hr 09/27/20 22:00 09/29/20 14:54 Chloride IV Infused Q8H MILAGROS Infusion Ceftriaxone Sodium 1 gm/ 50 mls @ 100 mls/hr 09/27/20 20:00 09/28/20 22:43 Sodium Chloride IV Infused Q24H MILAGROS Infusion Lactulose 30 gm 09/27/20 09:00 09/29/20 14:06 Lactulose 20 Gm/30 Ml Solution PO 30 gm TID MILAGROS Administration Lisinopril 30 mg 09/27/20 09:00 09/29/20 08:25 Lisinopril 10 Mg Tablet PO 30 mg DAILY MILAGROS Administration Protocol Medication 1 each 09/27/20 09:00 No Benzodiazepines MISCELLANE DAILY MILAGROS Melatonin 6 mg 09/27/20 21:00 09/28/20 22:29 Melatonin 3 Mg Tablet PO 6 mg BEDTIME MILAGROS Administration Metoprolol Succinate 25 mg 09/27/20 21:00 09/28/20 22:28 Metoprolol Succinate Er 25 Mg Tab.Er.24h PO 25 mg BEDTIME MILAGROS Administration Protocol Nicotine 14 mg 09/28/20 12:45 09/29/20 08:25 Nicotine 14 Mg Patch.Td24 TRANSDERMA 14 mg DAILY MILAGROS Administration Omeprazole 20 mg 09/27/20 06:30 09/29/20 05:58 Omeprazole 20 Mg Capsule.Dr PO 20 mg DAILY@0630 [facility]AGROS Administration Ondansetron HCl 4 mg 09/26/20 23:54 Ondansetron Hcl 4 Mg/2 Ml Vial IVPUSH Q8H PRN Nausea and Vomiting Pharmacy Consult 1 each 09/26/20 19:06 Consult Rx Perform Med Rec MISCELLANE ONCE PRN Consult order Phenobarbital 15 mg 09/29/20 09:00 09/29/20 08:24 Phenobarbital 15 Mg Tablet PO 09/30/20 21:01 15 mg BID MILAGROS Administration Phenobarbital 15 mg 10/01/20 09:00 Phenobarbital 15 Mg Tablet PO 10/02/20 09:01 DAILY [facility] Phenytoin 100 mg 09/27/20 09:00 09/29/20 14:06 Phenytoin Chewable 50 Mg Tab.Chew PO 100 mg TID MILAGROS Administration Rifaximin 550 mg 09/27/20 21:00 09/29/20 08:25 Rifaximin 550 Mg Tablet PO 550 mg BID MILAGROS Administration Sodium Chloride 3 ml 09/27/20 00:00 09/29/20 08:25 0.9 % Sodium Chloride Flush 3 Ml Syringe IVFLUSH 3 ml QSHIFT MILAGROS Administration Tamsulosin HCl 0.4 mg 09/27/20 17:30 09/28/20 16:48 Tamsulosin Hcl 0.4 Mg Capsule PO 0.4 mg DAILY@1730 [facility] Administration Tiotropium [place] 1 puff 09/27/20 08:00 09/29/20 07:24 Tiotropium [place] 18 Mcg Cap.W.Dev INHALE Not Given RDAILY [facility] Vitamin D 50 mcg 09/27/20 09:00 09/29/20 08:24 Cholecalciferol (Vitamin D3) 25 Mcg Tablet PO 50 mcg DAILY [facility] Administration Labs CBC & Chem 7: 09/29/20 07:34 09/29/20 07:34 Labs: Laboratory Results - last 24 hr 09/29/20 09/29/20 07:34 07:34 WBC 6.1 RBC 4.13 L Hgb 13.6 L Hct 42.4 MCV 102.7 H MCH 32.9 MCHC 32.1 RDW 14.4 Plt Count 146 L MPV 9.3 L Immature Gran % (Auto) 0.2 Neut % (Auto) 36.0 L Lymph % (Auto) 34.6 [place] % (Auto) 22.3 H Eos % (Auto) 6.2 H Baso % (Auto) 0.7 Lymph # (Auto) 2.1 [place] # (Auto) 1.4 H Eos # (Auto) 0.4 Baso # (Auto) 0.0 Abs Immat Gran (auto) 0.01 Absolute Neuts (auto) 2.2 Absolute Nucleated RBC 0.000 Nucleated RBC % (auto) 0.0 Smear Tech's Comments VERIFIED Sodium 139 Potassium 4.2 Chloride 107 Carbon Dioxide 23 Anion Gap 13 BUN 6 L Creatinine 0.77 Estim Creat Clear Calc 92.5 Estimated GFR > 60 Random Glucose 83 Calcium 8.9 Magnesium 1.8 Microbiology Microbiology Results: Microbiology 09/26/20 17:43 Urine clean catch - Clean Catch Midstream Urine Culture - Final 09/27/20 06:28 Blood - Venous Blood Culture - Preliminary No growth after 48 hours. 09/27/20 06:28 Blood - Venous Blood Culture - Preliminary No growth after 48 hours. 09/26/20 18:21 Blood - Venous Blood Culture - Preliminary No growth after 48 hours. 09/26/20 18:14 Blood - Venous Blood Culture - Final Bacillus species Assessment and Plan (1) Hyperammonemia: Status: Acute (2) Encephalopathy: Status: Acute (3) Altered mental status: Status: Acute (4) UTI (urinary tract infection): Status: Acute Assessment and Plan: hospital d#4 64yo M with hx EtOH abuse, cirrhosis, HCV [treated/cured], HTN presented to the hospital after being found unresponsitve by his neighbor admitted with encephalopathy + HTN urgency # encephalopathy - treating hepatic component with rifaximin + lactulose. still having asterixis though had 5 BMs yesterday - treating possible component of Wernicke/Korskoff with IV thiamine; sent B1 level - Utox negative but sent opiate GC/MS given his hx of opioid abuse [also hx cocaine abuse] - also possibly had a seizure- pt was not taking phenytoin as prescribed - d/c'ed gabapentin # UTI - ceftriaxone d#08/14 # HTN urgency - resolved with resumption of home meds [lisinopril, metoprolol succinate]; increase lisinopril + recheck BMP in a few days; historically noncompliant with medications # hypoMg - repleted # hx cardiomyopathy - not in decompensated HF. continue BRITNEY-I, B-david # seizure hx - continue phenytoin. clearly was not taking it [level undetectable] # Tn-I elevation - delta <50%, old T wave abnormality on EKG, not ACS # alcohol abuse - phenobarbital taper - supplement thiamine + folate - counseling # GERD - continue PPI # VTE ppx - LMWH # dispo - PT eval. pt has no family in the area and only contact is friend listed on the chart, whom I updated yesterday by phone
[2020-09-29] MEDS: Tamsulosin HCL 0.4 MG CAPSULE PO (16:17)
[2020-09-29] MEDS: cefTRIAXone sodium 1 GM in 0.9 % Sodium Chloride 50 ML IV (19:14)
[2020-09-29] MEDS: Melatonin 3 MG TABLET 6 MG PO (19:49)
[2020-09-29] MEDS: Atorvastatin Calcium 40 MG TABLET PO (19:52)
[2020-09-29] MEDS: Metoprolol Succinate ER 25 MG TAB.ER.24H PO (19:52)
[2020-09-29] MEDS: Thiamine HCL 500 MG in 0.9 % Sodium Chloride 100 ML 21 MG IV (23:18)
[2020-09-30] VITALS (8 sets, daily range): BP systolic 160–193; BP diastolic 78–103; PULSE 57–74; RESP 16–18; TEMP 36.1–36.4; O2SAT 98
[2020-09-30] MEDS: Enoxaparin Sodium 40 MG/0.4 ML SYRINGE SUBCUT (00:53)
[2020-09-30] MEDS: Omeprazole 20 MG CAPSULE.DR PO (05:23)
[2020-09-30] MEDS: 0.9 % Sodium Chloride Flush 3 ML SYRINGE IVFLUSH ×3 (09:00→20:37)
[2020-09-30] MEDS: PHENobarbitaL 15 MG TABLET PO ×2 (09:00→20:40)
[2020-09-30] MEDS: Lactulose 20 GM/30 ML SOLUTION 30 GM PO (09:01)
[2020-09-30] MEDS: rifAXIMin 550 MG TABLET PO (09:01)
[2020-09-30] MEDS: Folic Acid 1 MG TABLET PO (09:01)
[2020-09-30] MEDS: Cholecalciferol (Vitamin D3) 25 MCG TABLET 50 MCG PO (09:01)
[2020-09-30] MEDS: Nicotine 14 MG PATCH.TD24 TRANSDERMA (09:01)
[2020-09-30] MEDS: lisinopriL 40 MG TABLET PO (09:01)
[2020-09-30] MEDS: Phenytoin Chewable 50 MG TAB.CHEW 100 MG PO ×3 (09:05→20:40)
[2020-09-30] MEDS: Thiamine HCL 250 MG in 0.9 % Sodium Chloride 100 ML 205 MG IV (09:17)
--- NOTE | 2020-09-30 11:58 | HO.PM.IMPN ---
Subjective Subjective Date of Service: 09/30/20 Interval History: calm, alert, disoriented to time, poor recall Cardiovascular Cardiovascular: Reports no additional cardiovascular complaints Gastrointestinal Gastrointestinal: Reports no additional gastrointestinal complaints Physical Exam Vital Signs: Vital Signs: Last Vital Signs Temp 97.7 F 09/30/20 11:41 Pulse 79 09/30/20 11:41 Resp 18 09/30/20 11:41 BP 174/75 H 09/30/20 11:41 Pulse Ox 97 09/30/20 11:41 Body Mass Index 25.8 Gen: calm, NAD HEENT: sclera anicteric, moist mucus membranes, edentulous Neck: supple Lungs: clear to auscultation bilaterally Heart: regular rate and rhythm, no murmurs Abd: soft, non-tender, non-distended Ext: no edema Skin: warm/well-perfused Neuro: oriented to self/place but not to date. [place] appears better Psych: Inappropriate affect, impaired insight Objective Data Current Medications Generic Name Dose Route Start Last Admin Trade Name Freq PRN Reason Stop Dose Admin Acetaminophen 650 mg 09/26/20 23:54 Acetaminophen 325 Mg Tablet PO Q6H PRN Pain, Mild (Pain Scale 1-3) Atorvastatin Calcium 40 mg 09/27/20 21:00 09/29/20 19:52 Atorvastatin Calcium 40 Mg Tablet PO 40 mg BEDTIME [facility] Administration Docusate Sodium 100 mg 09/26/20 23:54 Docusate Sodium 100 Mg Capsule PO DAILY PRN Constipation Enoxaparin Sodium 40 mg 09/27/20 01:00 09/30/20 00:53 Enoxaparin Sodium 40 Mg/0.4 Ml Syringe SUBCUT 40 mg Q24H [facility] Administration Folic Acid 1 mg 09/27/20 09:00 09/30/20 09:01 Folic Acid 1 Mg Tablet PO 1 mg DAILY [facility] Administration Ceftriaxone Sodium 1 gm/ 50 mls @ 100 mls/hr 09/27/20 20:00 09/29/20 19:59 Sodium Chloride IV Infused Q24H [facility] Infusion Thiamine HCl 250 mg/ Sodium 102.5 mls @ 205 mls/hr 09/30/20 09:00 09/30/20 09:58 Chloride IV 10/04/20 09:01 Infused DAILY [facility] Infusion Lisinopril 40 mg 09/30/20 09:00 09/30/20 09:01 Lisinopril 40 Mg Tablet PO 40 mg DAILY [facility] Administration Protocol Medication 1 each 09/27/20 09:00 No Benzodiazepines MISCELLANE DAILY [facility] Melatonin 6 mg 09/27/20 21:00 09/29/20 19:49 Melatonin 3 Mg Tablet PO 6 mg BEDTIME [facility] Administration Metoprolol Succinate 25 mg 09/27/20 21:00 09/29/20 19:52 Metoprolol Succinate Er 25 Mg Tab.Er.24h PO 25 mg BEDTIME [facility] Administration Protocol Nicotine 14 mg 09/28/20 12:45 09/30/20 09:01 Nicotine 14 Mg Patch.Td24 TRANSDERMA 14 mg DAILY [facility] Administration Omeprazole 20 mg 09/27/20 06:30 09/30/20 05:23 Omeprazole 20 Mg Capsule.Dr PO 20 mg DAILY@0630 [facility] Administration Ondansetron HCl 4 mg 09/26/20 23:54 Ondansetron Hcl 4 Mg/2 Ml Vial IVPUSH Q8H PRN Nausea and Vomiting Pharmacy Consult 1 each 09/26/20 19:06 Consult Rx Perform Med Rec MISCELLANE ONCE PRN Consult order Phenobarbital 15 mg 09/29/20 09:00 09/30/20 09:00 Phenobarbital 15 Mg Tablet PO 09/30/20 21:01 15 mg BID [facility] Administration Phenobarbital 15 mg 10/01/20 09:00 Phenobarbital 15 Mg Tablet PO 10/02/20 09:01 DAILY [facility] Phenytoin 100 mg 09/27/20 09:00 09/30/20 09:05 Phenytoin Chewable 50 Mg Tab.Chew PO 100 mg TID [facility] Administration Sodium Chloride 3 ml 09/27/20 00:00 09/30/20 09:00 0.9 % Sodium Chloride Flush 3 Ml Syringe IVFLUSH 3 ml QSHIFT [facility] Administration Tamsulosin HCl 0.4 mg 09/27/20 17:30 09/29/20 16:17 Tamsulosin Hcl 0.4 Mg Capsule PO 0.4 mg DAILY@1730 [facility] Administration Thiamine HCl 100 mg 10/05/20 09:00 Thiamine Hcl 100 Mg Tablet PO DAILY [facility] Tiotropium [place] 1 puff 09/27/20 08:00 09/30/20 07:56 Tiotropium [place] 18 Mcg Cap.W.Dev INHALE 1 puff RDAILY [facility] Administration Vitamin D 50 mcg 09/27/20 09:00 09/30/20 09:01 Cholecalciferol (Vitamin D3) 25 Mcg Tablet PO 50 mcg DAILY [facility] Administration Labs CBC & Chem 7: 09/29/20 07:34 09/29/20 07:34 Microbiology Microbiology Results: Microbiology 09/26/20 17:43 Urine clean catch - Clean Catch Midstream Urine Culture - Final 09/27/20 06:28 Blood - Venous Blood Culture - Preliminary No growth after 48 hours. 09/27/20 06:28 Blood - Venous Blood Culture - Preliminary No growth after 48 hours. 09/26/20 18:21 Blood - Venous Blood Culture - Preliminary No growth after 48 hours. 09/26/20 18:14 Blood - Venous Blood Culture - Final Bacillus species Assessment and Plan (1) Hyperammonemia: Status: Acute (2) Encephalopathy: Status: Acute (3) Altered mental status: Status: Acute (4) UTI (urinary tract infection): Status: Acute Assessment and Plan: hospital d#5 64yo M with hx EtOH abuse, ?cirrhosis, HCV [treated/cured], HTN presented to the hospital after being found unresponsitve by his neighbor admitted with encephalopathy + HTN urgency encephalopathy - treated hepatic component with rifaximin + lactulose. seems to have improved, not sure if patient actually has cirrhosis, does not appear to have an other squelae, will check limited us - treating possible component of Wernicke/Korskoff with thiamine, level pending - Utox negative - also possibly had a seizure- pt was not taking phenytoin as prescribed - d/c'ed gabapentin UTI - ceftriaxone d#09/13 HTN urgency resolved with resumption of home meds [lisinopril, metoprolol succinate]; increase lisinopril + recheck BMP in a few days; historically noncompliant with medications hypoMg repleted hx cardiomyopathy not in decompensated HF. continue BRITNEY-I, B-david seizure hx continue phenytoin. clearly was not taking it [level undetectable] Tn-I elevation delta <50%, old T wave abnormality on EKG, not ACS alcohol dependence with withdrawl - phenobarbital taper - supplement thiamine + folate - counseling GERD - continue PPI VTE ppx - LMWH dispo pt has no family in the area
[2020-09-30] MEDS: Tamsulosin HCL 0.4 MG CAPSULE PO (18:26)
[2020-09-30] MEDS: cefTRIAXone sodium 1 GM in 0.9 % Sodium Chloride 50 ML IV (20:03)
[2020-09-30] MEDS: Metoprolol Succinate ER 25 MG TAB.ER.24H PO (20:39)
[2020-09-30] MEDS: Atorvastatin Calcium 40 MG TABLET PO (20:40)
[2020-09-30] MEDS: Melatonin 3 MG TABLET 6 MG PO (20:40)
[2020-10-01] VITALS (8 sets, daily range): BP systolic 158–190; BP diastolic 71–100; PULSE 58–70; RESP 16–18; TEMP 36.1–36.8; O2SAT 95–100
[2020-10-01] MEDS: Enoxaparin Sodium 40 MG/0.4 ML SYRINGE SUBCUT ×2 (01:51→22:34)
[2020-10-01] MEDS: Omeprazole 20 MG CAPSULE.DR PO (05:38)
[2020-10-01] MEDS: Folic Acid 1 MG TABLET PO (09:01)
[2020-10-01] MEDS: PHENobarbitaL 15 MG TABLET PO (09:01)
[2020-10-01] MEDS: Cholecalciferol (Vitamin D3) 25 MCG TABLET 50 MCG PO (09:01)
[2020-10-01] MEDS: lisinopriL 40 MG TABLET PO (09:01)
[2020-10-01] MEDS: 0.9 % Sodium Chloride Flush 3 ML SYRINGE IVFLUSH ×3 (09:01→22:01)
[2020-10-01] MEDS: Nicotine 14 MG PATCH.TD24 TRANSDERMA (09:01)
[2020-10-01] MEDS: Thiamine HCL 250 MG in 0.9 % Sodium Chloride 100 ML 205 MG IV (09:03)
[2020-10-01] MEDS: Phenytoin Chewable 50 MG TAB.CHEW 100 MG PO ×3 (09:04→22:00)
--- NOTE | 2020-10-01 13:23 | P.PNIM_ITS ---
Subjective Subjective Date of Service: 10/01/20 Interval History: Encephalopathy Review of Systems Still seems to be alert to self, Unit is full to so many questions No fever overnight, no new events Physical Exam Vital Signs: Vital Signs: Last Vital Signs Temp 97.4 F 10/01/20 12:00 Pulse 58 10/01/20 12:00 Resp 17 10/01/20 12:00 BP 159/71 H 10/01/20 12:00 Pulse Ox 98 10/01/20 12:00 Body Mass Index 25.8 physical exam: Cvs: rrr, [id number] , no murmur res: clear to auscultation ,no rhonchii or wheezing abd: no rebound or guarding ,nt, bs present. HEENT: sclera anicteric, moist mucus membranes, edentulous Neck: supple Ext: no edema Skin: warm/well-perfused Neuro: oriented to self/place but not to date. [place] appears better Psych: Inappropriate affect, impaired insight Objective Data Current Medications Generic Name Dose Route Start Last Admin Trade Name Toanq PRN Reason Stop Dose Admin Acetaminophen 650 mg 09/26/20 23:54 Acetaminophen 325 Mg Tablet PO Q6H PRN Pain, Mild (Pain Scale 1-3) Atorvastatin Calcium 40 mg 09/27/20 21:00 09/30/20 20:40 Atorvastatin Calcium 40 Mg Tablet PO 40 mg BEDTIME [facility] Administration Docusate Sodium 100 mg 09/26/20 23:54 Docusate Sodium 100 Mg Capsule PO DAILY PRN Constipation Enoxaparin Sodium 40 mg 09/27/20 01:00 10/01/20 01:51 Enoxaparin Sodium 40 Mg/0.4 Ml Syringe SUBCUT 40 mg Q24H [facility] Administration Folic Acid 1 mg 09/27/20 09:00 10/01/20 09:01 Folic Acid 1 Mg Tablet PO 1 mg DAILY [facility] Administration Ceftriaxone Sodium 1 gm/ 50 mls @ 100 mls/hr 09/27/20 20:00 09/30/20 20:43 Sodium Chloride IV Infused Q24H [facility]O Infusion Thiamine HCl 250 mg/ Sodium 102.5 mls @ 205 mls/hr 09/30/20 09:00 10/01/20 09:33 Chloride IV 10/04/20 09:01 Infused DAILY [facility] Infusion Lisinopril 40 mg 09/30/20 09:00 10/01/20 09:01 Lisinopril 40 Mg Tablet PO 40 mg DAILY [facility] Administration Protocol Medication 1 each 09/27/20 09:00 No Benzodiazepines MISCELLANE DAILY [facility] Melatonin 6 mg 09/27/20 21:00 09/30/20 20:40 Melatonin 3 Mg Tablet PO 6 mg BEDTIME [facility] Administration Metoprolol Succinate 25 mg 09/27/20 21:00 09/30/20 20:39 Metoprolol Succinate Er 25 Mg Tab.Er.24h PO 25 mg BEDTIME [facility] Administration Protocol Nicotine 14 mg 09/28/20 12:45 10/01/20 09:01 Nicotine 14 Mg Patch.Td24 TRANSDERMA 14 mg DAILY [facility] Administration Omeprazole 20 mg 09/27/20 06:30 10/01/20 05:38 Omeprazole 20 Mg Capsule.Dr PO 20 mg DAILY@0630 [facility] Administration Ondansetron HCl 4 mg 09/26/20 23:54 Ondansetron Hcl 4 Mg/2 Ml Vial IVPUSH Q8H PRN Nausea and Vomiting Pharmacy Consult 1 each 09/26/20 19:06 Consult Rx Perform Med Rec MISCELLANE ONCE PRN Consult order Phenobarbital 15 mg 10/01/20 09:00 10/01/20 09:01 Phenobarbital 15 Mg Tablet PO 10/02/20 09:01 15 mg DAILY [facility] Administration Phenytoin 100 mg 09/27/20 09:00 10/01/20 09:04 Phenytoin Chewable 50 Mg Tab.Chew PO 100 mg TID [facility] Administration Sodium Chloride 3 ml 09/27/20 00:00 10/01/20 09:01 0.9 % Sodium Chloride Flush 3 Ml Syringe IVFLUSH 3 ml QSHIFT [facility] Administration Tamsulosin HCl 0.4 mg 09/27/20 17:30 09/30/20 18:26 Tamsulosin Hcl 0.4 Mg Capsule PO 0.4 mg DAILY@1730 [facility] Administration Thiamine HCl 100 mg 10/05/20 09:00 Thiamine Hcl 100 Mg Tablet PO DAILY [facility] Tiotropium [place] 1 puff 09/27/20 08:00 10/01/20 07:25 Tiotropium [place] 18 Mcg Cap.W.Dev INHALE 1 puff RDAILY [facility] Administration Vitamin D 50 mcg 09/27/20 09:00 10/01/20 09:01 Cholecalciferol (Vitamin D3) 25 Mcg Tablet PO 50 mcg DAILY [facility] Administration Labs CBC & Chem 7: 09/29/20 07:34 09/29/20 07:34 Microbiology Microbiology Results: Microbiology 09/26/20 17:43 Urine clean catch - Clean Catch Midstream Urine Culture - Final 09/27/20 06:28 Blood - Venous Blood Culture - Preliminary No growth after 48 hours. 09/27/20 06:28 Blood - Venous Blood Culture - Preliminary No growth after 48 hours. 09/26/20 18:21 Blood - Venous Blood Culture - Preliminary No growth after 48 hours. 09/26/20 18:14 Blood - Venous Blood Culture - Final Bacillus species Assessment and Plan (1) Encephalopathy: Status: Acute (2) Hyperammonemia: Status: Acute (3) Altered mental status: Status: Acute (4) UTI (urinary tract infection): Status: Acute Assessment and Plan: hospital d#6 64yo M with hx EtOH abuse, ?cirrhosis, HCV [treated/cured], HTN presented to the hospital after being found unresponsitve by his neighbor admitted with encephalopathy + HTN urgency 1.encephalopathy: as per chart review- intially treated hepatic component with rifaximin + lactulose. seems to have improved, not sure if patient actually has cirrhosis, does not appear to have an other squelae. - treating possible component of Wernicke/Korskoff with thiamine, level pending - Utox negative - also possibly had a seizure- pt was not taking phenytoin as prescribed abd us: liver seems normal, has cholelithasis no wall thickening off gabapentin 2.UTI- ceftriaxone d#10/14 3.HTN urgency:resolved with resumption of home meds [lisinopril, metoprolol succinate]; increase lisinopril + recheck BMP in a few days; historically noncompliant with medications 4. hx cardiomyopathy:euvolemic: continue BRITNEY-I, B-david 5.seizure hx:continue phenytoin. clearly was not taking it [level undetectable] 6.Tn-I elevation:delta <50%, old T wave abnormality on EKG, not ACS 7.alcohol dependence with withdrawl - phenobarbital taper - supplement thiamine + folate - counseling 8. GERD:- continue PPI VTE ppx - LMWH dispo pt has no family in the area
[2020-10-01] MEDS: Tamsulosin HCL 0.4 MG CAPSULE PO (17:11)
[2020-10-01] MEDS: cefTRIAXone sodium 1 GM in 0.9 % Sodium Chloride 50 ML IV (20:33)
[2020-10-01] MEDS: diphenhydrAMINE HCL 25 MG TABLET PO (21:59)
[2020-10-01] MEDS: Metoprolol Succinate ER 25 MG TAB.ER.24H PO (21:59)
[2020-10-01] MEDS: Melatonin 3 MG TABLET 6 MG PO (21:59)
[2020-10-01] MEDS: Atorvastatin Calcium 40 MG TABLET PO (21:59)
[2020-10-01] MEDS: amLODIPine Besylate 2.5 MG TABLET PO (22:09)
[2020-10-02] VITALS (14 sets, daily range): BP systolic 122–190; BP diastolic 60–100; PULSE 60–73; RESP 16–19; TEMP 36.4–36.9; O2SAT 97–99
[2020-10-02] MEDS: hydrALAZINE HCl 20 MG/ML VIAL 5 MG IVPUSH (00:23)
--- NOTE | 2020-10-02 01:59 | PC.NURSE ---
pt was recored to have a BP of 188/90. Md was notified. amlodipinewas ordered. An hr later, the BP was rechecked and was 190/100. Md was notfied. Md ordered hydralazine. Ah hr later BP was checked and was reduced to 140/79.
[2020-10-02] MEDS: Omeprazole 20 MG CAPSULE.DR PO (05:45)
[2020-10-02] MEDS: 0.9 % Sodium Chloride Flush 3 ML SYRINGE IVFLUSH ×3 (07:32→19:48)
[2020-10-02] MEDS: Phenytoin Chewable 50 MG TAB.CHEW 100 MG PO ×3 (08:57→19:08)
[2020-10-02] MEDS: PHENobarbitaL 15 MG TABLET PO (08:57)
[2020-10-02] MEDS: Folic Acid 1 MG TABLET PO (08:58)
[2020-10-02] MEDS: Nicotine 14 MG PATCH.TD24 TRANSDERMA (08:58)
[2020-10-02] MEDS: lisinopriL 40 MG TABLET PO (08:58)
[2020-10-02] MEDS: Cholecalciferol (Vitamin D3) 25 MCG TABLET 50 MCG PO (08:58)
--- NOTE | 2020-10-02 09:41 | MHC.CM.PN ---
Addendum entered by Ranjana Gomez RN 10/02/20 11:54: PER MULTIDISCIPLINARY ROUNDS PT WILL NEED TO BE SEEN BY PSYCH, PER HOSPITALIST PT NOT SAFE TO BE ALONE, PT HAS NO FAMILY WHO CAN PROVIDE 24HR CARE. Original Note: PT'S COUSIN ON UNIT VISITING PT AND REQUESTED TO SPEAK W/SOMEONE, PER COUSIN PT WAS NOT CONFUSED THE MORNING HE WAS BROUGHT TO THE HOSPITAL AND COUSIN HAD GONE TO OFFICE W/PT AND THEN LEFT HIM AT HOME, COUSIN HEARD LATER THAT DAY PT WAS IN HOSPITAL, PER COUSIN PT HAD BEEN DRINKING TOO MUCH RUM FOR THE LAST MONTH AND COUSIN HAD ENCOURAGED PT TO CUT DOWN, COUSIN REPORTS PT IS INDEPENDENT, WITH ONLY A CANE FOR DME AND NO HOME SERVICES. COUSIN REPORTED PT APPEARS TO BE CLOSE TO BASELINE AND REPORTS HE DOES NOT HAVE CONFUSION AT BASELINE. D/C PLAN: HOME W/NO SERVICES VS VNA, COUSIN PRISCA WILL COME TO [facility] [place] AND TAKE SHUTTLE HOME W/PT COUSIN: PRISCA MADELIN [phone]
--- NOTE | 2020-10-02 11:38 | P.PNIM_ITS ---
Subjective Subjective Date of Service: 10/02/20 Interval History: sleeping comfortably Cardiovascular Cardiovascular: Reports no additional cardiovascular complaints Gastrointestinal Gastrointestinal: Reports no additional gastrointestinal complaints Physical Exam Vital Signs: Vital Signs: Last Vital Signs Temp 98.1 F 10/02/20 07:33 Pulse 73 10/02/20 08:58 Resp 18 10/02/20 07:33 BP 190/85 H 10/02/20 08:58 Pulse Ox 97 10/02/20 07:33 Body Mass Index 25.8 General: disoriented, no acute distress Resp: CTA bilateral CVS: S1,S2,RRR GI: soft, non tender, non distended Neuro: motor grossly intact Psych: agressive at times Objective Data Current Medications Generic Name Dose Route Start Last Admin Trade Name Freq PRN Reason Stop Dose Admin Acetaminophen 650 mg 09/26/20 23:54 Acetaminophen 325 Mg Tablet PO Q6H PRN Pain, Mild (Pain Scale 1-3) Atorvastatin Calcium 40 mg 09/27/20 21:00 10/01/20 21:59 Atorvastatin Calcium 40 Mg Tablet PO 40 mg BEDTIME [facility] Administration Docusate Sodium 100 mg 09/26/20 23:54 Docusate Sodium 100 Mg Capsule PO DAILY PRN Constipation Enoxaparin Sodium 40 mg 10/02/20 22:00 10/01/20 22:34 Enoxaparin Sodium 40 Mg/0.4 Ml Syringe SUBCUT 40 mg Q24H [facility] Administration Folic Acid 1 mg 09/27/20 09:00 10/02/20 08:58 Folic Acid 1 Mg Tablet PO 1 mg DAILY [facility] Administration Ceftriaxone Sodium 1 gm/ 50 mls @ 100 mls/hr 09/27/20 20:00 10/01/20 22:11 Sodium Chloride IV Infused Q24H [facility] Infusion Thiamine HCl 250 mg/ Sodium 102.5 mls @ 205 mls/hr 09/30/20 09:00 10/02/20 09:02 Chloride IV 10/04/20 09:01 Not Given DAILY [facility] Lisinopril 40 mg 09/30/20 09:00 10/02/20 08:58 Lisinopril 40 Mg Tablet PO 40 mg DAILY [facility] Administration Protocol Medication 1 each 09/27/20 09:00 No Benzodiazepines MISCELLANE DAILY [facility] Melatonin 6 mg 09/27/20 21:00 10/01/20 21:59 Melatonin 3 Mg Tablet PO 6 mg BEDTIME [facility] Administration Metoprolol Succinate 25 mg 09/27/20 21:00 10/01/20 21:59 Metoprolol Succinate Er 25 Mg Tab.Er.24h PO 25 mg BEDTIME [facility] Administration Protocol Nicotine 14 mg 09/28/20 12:45 10/02/20 08:58 Nicotine 14 Mg Patch.Td24 TRANSDERMA 14 mg DAILY [facility] Administration Omeprazole 20 mg 09/27/20 06:30 10/02/20 05:45 Omeprazole 20 Mg Capsule.Dr PO 20 mg DAILY@0630 [facility] Administration Ondansetron HCl 4 mg 09/26/20 23:54 Ondansetron Hcl 4 Mg/2 Ml Vial IVPUSH Q8H PRN Nausea and Vomiting Pharmacy Consult 1 each 09/26/20 19:06 Consult Rx Perform Med Rec MISCELLANE ONCE PRN Consult order Phenytoin 100 mg 09/27/20 09:00 10/02/20 08:57 Phenytoin Chewable 50 Mg Tab.Chew PO 100 mg TID [facility] Administration Sodium Chloride 3 ml 09/27/20 00:00 10/02/20 07:32 0.9 % Sodium Chloride Flush 3 Ml Syringe IVFLUSH 3 ml QSHIFT [facility] Administration Tamsulosin HCl 0.4 mg 09/27/20 17:30 10/01/20 17:11 Tamsulosin Hcl 0.4 Mg Capsule PO 0.4 mg DAILY@1730 [facility] Administration Thiamine HCl 100 mg 10/05/20 09:00 Thiamine Hcl 100 Mg Tablet PO DAILY [facility] Tiotropium [place] 1 puff 09/27/20 08:00 10/01/20 07:25 Tiotropium [place] 18 Mcg Cap.W.Dev INHALE 1 puff RDAILY [facility] Administration Vitamin D 50 mcg 09/27/20 09:00 10/02/20 08:58 Cholecalciferol (Vitamin D3) 25 Mcg Tablet PO 50 mcg DAILY [facility] Administration Labs CBC & Chem 7: 09/29/20 07:34 09/29/20 07:34 Microbiology Microbiology Results: Microbiology 09/27/20 06:28 Blood - Venous Blood Culture - Final No growth after 5 days. 09/27/20 06:28 Blood - Venous Blood Culture - Final No growth after 5 days. 09/26/20 18:21 Blood - Venous Blood Culture - Final No growth after 5 days. 09/26/20 17:43 Urine clean catch - Clean Catch Midstream Urine Culture - Final 09/26/20 18:14 Blood - Venous Blood Culture - Final Bacillus species Assessment and Plan (1) Hyperammonemia: Status: Acute (2) Encephalopathy: Status: Acute (3) Altered mental status: Status: Acute (4) UTI (urinary tract infection): Status: Acute Assessment and Plan: 64yo M with hx EtOH abuse, ?cirrhosis, HCV [treated/cured], HTN presented to the hospital after being found unresponsitve by his neighbor admitted with encephalopathy + HTN urgency encephalopathy - treated hepatic component with rifaximin + lactulose. seems to have improved, doesnt look like patient actually has cirrhosis, does not appear to have an other squelae, us negative - treating possible component of Wernicke/Korskoff with thiamine, level pending - Utox negative - also possibly had a seizure- pt was not taking phenytoin as prescribed - d/c'ed gabapentin UTI - ceftriaxone d#11/13 HTN urgency resolved with resumption of home meds [lisinopril, metoprolol succinate]; increase lisinopril + recheck BMP in a few days; historically noncompliant with medications hypoMg repleted hx cardiomyopathy not in decompensated HF. continue BRITNEY-I, B-david seizure hx continue phenytoin. clearly was not taking it [level undetectable] Tn-I elevation delta <50%, old T wave abnormality on EKG, not ACS alcohol dependence with withdrawl - phenobarbital taper - supplement thiamine + folate - counseling GERD - continue PPI VTE ppx - LMWH dispo will need placement
--- NOTE | 2020-10-02 14:59 | PM.PSYCN ---
History of Present Illness Date of Service: t Chief Complaint: encephalopathy Reason for Consult: Assess capacity to assign health care proxy Assess capacity Requesting physician: Sonido Abdullahi Discussed with referring provider: Yes Sources of Information: patient interviewed and chart reviewed HPI Narrative: The patient is 64 year old [place] male, mostly Romanian speaking, single, with no chidren, with limited social support, admitted after he was found by neighbors with altered mental status. He carries the diagnosis of alcohol use disorder, Hep C treated, alcoholic cirrhosis, GERD and other comorbilities. He was assessed at bedside on Romanian. The patient was able to identify his nephew as a support and he could assign him as his health care proxy. He has been confused, trying to get out of the bed, with no safety awareness. He was confused and agitated at times, disorganized in Romanian. Past Psychiatric History: Unknown, alcohol use disorder chronic Medical Evaluation Reviewed: Yes Review of Systems Review of Systems Yes Unobtainable due to mental status [facility] Medical History Alcohol abuse Cardiomyopathy Cirrhosis, alcoholic GERD (gastroesophageal reflux disease) Hepatitis C antibody positive in blood Hypertension Seizure Family History: Unknown Social History: The patient lives alone, he is mostly Romanian speaking, unemployed on disability. Substance History: Alcohol, chronic use Trauma History: Unknown Diagnostics Vital Signs (24Hr): Vital Signs - 24 hr 10/01/20 15:30 10/01/20 19:55 10/01/20 21:59 Temperature 97.5 F 97 F Pulse Rate 59 61 61 Respiratory Rate 17 16 Blood Pressure 167/77 H 188/90 H 188/90 H Pulse Oximetry 97 98 10/01/20 22:09 10/01/20 23:26 10/02/20 00:20 Temperature 97.7 F Pulse Rate 61 70 Respiratory Rate 18 Blood Pressure 188/90 H 190/100 H 190/100 H Pulse Oximetry 95 10/02/20 00:30 10/02/20 00:40 10/02/20 00:50 Temperature Pulse Rate Respiratory Rate Blood Pressure 177/94 H 166/84 H 153/75 H Pulse Oximetry 10/02/20 01:00 10/02/20 01:10 10/02/20 01:21 Temperature Pulse Rate Respiratory Rate Blood Pressure 148/73 H 147/89 H 140/79 H Pulse Oximetry 10/02/20 03:13 10/02/20 07:33 10/02/20 08:58 Temperature 97.6 F 98.1 F Pulse Rate 63 73 73 Respiratory Rate 16 18 Blood Pressure 158/88 H 190/85 H 190/85 H Pulse Oximetry 98 97 10/02/20 12:00 Temperature 98.0 F Pulse Rate 60 Respiratory Rate 16 Blood Pressure 122/66 Pulse Oximetry 98 Body Mass Index 25.8 Labs Results: 09/29/20 07:34 09/29/20 07:34 Imaging Radiology Impressions: ITS Impressions Cervical Spine CT 09/26/20 12:30 IMPRESSION: No acute intracranial process seen. Chronic bilateral maxillary sinus inflammatory changes. There is no acute fracture or dislocation in cervical spine. There are degenerative disc changes as described above. There is a right apical bullous change. Chest X-Ray 09/26/20 12:30 IMPRESSION: No acute intracranial process seen. Chronic bilateral maxillary sinus inflammatory changes. There is no acute fracture or dislocation in cervical spine. There are degenerative disc changes as described above. There is a right apical bullous change. Head CT 09/26/20 12:30 IMPRESSION: No acute intracranial process seen. Chronic bilateral maxillary sinus inflammatory changes. There is no acute fracture or dislocation in cervical spine. There are degenerative disc changes as described above. There is a right apical bullous change. Abdomen Ultrasound 09/30/20 17:40 IMPRESSION: Cholelithiasis without wall thickening. Visualized liver, right kidney and the pancreas appears unremarkable. Mental Status Exam Mental Status Exam Narrative: On hospital gowns, wearing a diaper, awake, disoriented, confused at times. He was restless and agitated at times. Speech is impoverished, his mood is dysphoric, affect blunted, thought process tangential, thought content with poverty of content, no evidence of acute hallucinations or delusions. Insight poor, judgment poor, impulse control impaired. Medications Medications Current Medications Generic Name Dose Route Start Last Admin Trade Name Freq PRN Reason Stop Dose Admin Acetaminophen 650 mg 09/26/20 23:54 Acetaminophen 325 Mg Tablet PO Q6H PRN Pain, Mild (Pain Scale 1-3) Atorvastatin Calcium 40 mg 09/27/20 21:00 10/01/20 21:59 Atorvastatin Calcium 40 Mg Tablet PO 40 mg BEDTIME [facility] Administration Docusate Sodium 100 mg 09/26/20 23:54 Docusate Sodium 100 Mg Capsule PO DAILY PRN Constipation Enoxaparin Sodium 40 mg 10/02/20 22:00 10/01/20 22:34 Enoxaparin Sodium 40 Mg/0.4 Ml Syringe SUBCUT 40 mg Q24H [facility]ROS Administration Folic Acid 1 mg 09/27/20 09:00 10/02/20 08:58 Folic Acid 1 Mg Tablet PO 1 mg DAILY [facility] Administration Ceftriaxone Sodium 1 gm/ 50 mls @ 100 mls/hr 09/27/20 20:00 10/01/20 22:11 Sodium Chloride IV Infused Q24H [facility] Infusion Thiamine HCl 250 mg/ Sodium 102.5 mls @ 205 mls/hr 09/30/20 09:00 10/02/20 09:02 Chloride IV 10/04/20 09:01 Not Given DAILY [facility] Lisinopril 40 mg 09/30/20 09:00 10/02/20 08:58 Lisinopril 40 Mg Tablet PO 40 mg DAILY [facility] Administration Protocol Medication 1 each 09/27/20 09:00 No Benzodiazepines MISCELLANE DAILY [facility]AGROS Melatonin 6 mg 09/27/20 21:00 10/01/20 21:59 Melatonin 3 Mg Tablet PO 6 mg BEDTIME [facility] Administration Metoprolol Succinate 25 mg 09/27/20 21:00 10/01/20 21:59 Metoprolol Succinate Er 25 Mg Tab.Er.24h PO 25 mg BEDTIME [facility]AGROS Administration Protocol Nicotine 14 mg 09/28/20 12:45 10/02/20 08:58 Nicotine 14 Mg Patch.Td24 TRANSDERMA 14 mg DAILY [facility] Administration Omeprazole 20 mg 09/27/20 06:30 10/02/20 05:45 Omeprazole 20 Mg Capsule.Dr PO 20 mg DAILY@0630 [facility] Administration Ondansetron HCl 4 mg 09/26/20 23:54 Ondansetron Hcl 4 Mg/2 Ml Vial IVPUSH Q8H PRN Nausea and Vomiting Pharmacy Consult 1 each 09/26/20 19:06 Consult Rx Perform Med Rec MISCELLANE ONCE PRN Consult order Phenytoin 100 mg 09/27/20 09:00 10/02/20 08:57 Phenytoin Chewable 50 Mg Tab.Chew PO 100 mg TID [facility] Administration Sodium Chloride 3 ml 09/27/20 00:00 10/02/20 07:32 0.9 % Sodium Chloride Flush 3 Ml Syringe IVFLUSH 3 ml QSHIFT [facility] Administration Tamsulosin HCl 0.4 mg 09/27/20 17:30 10/01/20 17:11 Tamsulosin Hcl 0.4 Mg Capsule PO 0.4 mg DAILY@1730 [facility] Administration Thiamine HCl 100 mg 10/05/20 09:00 Thiamine Hcl 100 Mg Tablet PO DAILY [facility] Tiotropium [place] 1 puff 09/27/20 08:00 10/01/20 07:25 Tiotropium [place] 18 Mcg Cap.W.Dev INHALE 1 puff RDAILY [facility] Administration Vitamin D 50 mcg 09/27/20 09:00 10/02/20 08:58 Cholecalciferol (Vitamin D3) 25 Mcg Tablet PO 50 mcg DAILY [facility] Administration Allergies Allergies Allergy/AdvReac Type Severity Reaction Status Date / Time No Known Allergies Allergy Verified 07/22/20 09:27 [No Known Allergies*] Assessment & Plan Assessment & Plan (1) Alcohol abuse: Status: Acute Code(s): F10.10 - Alcohol abuse, uncomplicated Recommendations: Middle age [place]ertor[place] male with alcohol use disorder chronic, admitted for alterd mental status. Plan: 1. At this moment, the patient is confused, with poor safety awareness but he can assign his nephew as his health care proxy. 2.. Due to his condition, he does not have the capacity to participate on discharge planning at this time. Most likely, he has, at this moment, Wernicke-Korsakoff syndrome. (2) Altered mental status: Status: Acute Code(s): R41.82 - Altered mental status, unspecified Greater than 50% of the session was spent on counseling and/or coordination of care
--- NOTE | 2020-10-02 15:43 | MHC.CM.PN ---
CM CONTACTED PT'S COUSIN PRISCA AT 3:12PM [phone] TO VERIFY IF HE WOULD BE WILLING TO BE PT'S HCP, COUSIN REPORTED HE IS AGREEABLE. CM MET W/PT AND VASC TECH TO COMPLETE HCP, HCP EXPLAINED TO PT VIA HEAD STOCK OPERATOR AND PT IS AGREEABLE AND WOULD LIKE HIS COUSIN TO BE HIS HEALTH CARE AGENT, PT DID REPORT HE CANNOT READ OR WRITE AND SIGNED HCP WITH AN X. HCP: PRISCA YSUUF (COUSIN) [phone]
--- NOTE | 2020-10-02 16:12 | MHC.CM.PN ---
REFERRAL SENT TO [facility] PER HCP REQUEST, CM WILL CONT TO FOLLOW D/C NEEDS.
[2020-10-02] MEDS: Tamsulosin HCL 0.4 MG CAPSULE PO (16:57)
[2020-10-02] MEDS: Haloperidol Lactate 5 MG/ML VIAL 2 MG IM (18:08)
--- NOTE | 2020-10-02 18:10 | PC.NURSE ---
pt was agitated, was redirectable but then became agitated and was up, hitting lund, pulling matress off bed and difficult to redirect. Medicated as ordered, sitter at bedside. will continue to monitor
[2020-10-02] MEDS: Melatonin 3 MG TABLET 6 MG PO (19:08)
[2020-10-02] MEDS: Atorvastatin Calcium 40 MG TABLET PO (19:09)
[2020-10-02] MEDS: Metoprolol Succinate ER 25 MG TAB.ER.24H PO (19:09)
[2020-10-02] MEDS: cefTRIAXone sodium 1 GM in 0.9 % Sodium Chloride 50 ML IV (19:09)
[2020-10-02] MEDS: Enoxaparin Sodium 40 MG/0.4 ML SYRINGE SUBCUT (19:14)
[2020-10-03 04:00] VITALS: RESP 16
[2020-10-03] MEDS: Omeprazole 20 MG CAPSULE.DR PO (06:16)
--- NOTE | 2020-10-03 10:36 | HO.PM.IMPN ---
Subjective Subjective Date of Service: 10/03/20 Interval History: agitated Cardiovascular Cardiovascular: Reports no additional cardiovascular complaints Respiratory Respiratory: Reports no additional respiratory complaints Physical Exam Vital Signs: Vital Signs: Last Vital Signs Temp 98.4 F 10/02/20 23:48 Pulse 69 10/02/20 23:48 Resp 16 10/03/20 04:00 BP 146/81 H 10/02/20 23:48 Pulse Ox 99 10/02/20 23:48 Body Mass Index 25.8 general: disoriented, no acute distress Resp: CTA bilateral CVS: S1,S2,RRR GI: soft, non tender, non distended Neuro: motor grossly intact Psych: agressive at times Objective Data Current Medications Generic Name Dose Route Start Last Admin Trade Name Freq PRN Reason Stop Dose Admin Acetaminophen 650 mg 09/26/20 23:54 Acetaminophen 325 Mg Tablet PO Q6H PRN Pain, Mild (Pain Scale 1-3) Atorvastatin Calcium 40 mg 09/27/20 21:00 10/02/20 19:09 Atorvastatin Calcium 40 Mg Tablet PO 40 mg BEDTIME [facility] Administration Docusate Sodium 100 mg 09/26/20 23:54 Docusate Sodium 100 Mg Capsule PO DAILY PRN Constipation Enoxaparin Sodium 40 mg 10/02/20 22:00 10/02/20 19:14 Enoxaparin Sodium 40 Mg/0.4 Ml Syringe SUBCUT 40 mg Q24H [facility] Administration Folic Acid 1 mg 09/27/20 09:00 10/02/20 08:58 Folic Acid 1 Mg Tablet PO 1 mg DAILY [facility] Administration Ceftriaxone Sodium 1 gm/ 50 mls @ 100 mls/hr 09/27/20 20:00 10/02/20 19:48 Sodium Chloride IV Infused Q24H [facility] Infusion Thiamine HCl 250 mg/ Sodium 102.5 mls @ 205 mls/hr 09/30/20 09:00 10/02/20 09:02 Chloride IV 10/04/20 09:01 Not Given DAILY [facility] Lisinopril 40 mg 09/30/20 09:00 10/02/20 08:58 Lisinopril 40 Mg Tablet PO 40 mg DAILY [facility] Administration Protocol Medication 1 each 09/27/20 09:00 No Benzodiazepines MISCELLANE DAILY [facility] Melatonin 6 mg 09/27/20 21:00 10/02/20 19:08 Melatonin 3 Mg Tablet PO 6 mg BEDTIME [facility] Administration Metoprolol Succinate 25 mg 09/27/20 21:00 10/02/20 19:09 Metoprolol Succinate Er 25 Mg Tab.Er.24h PO 25 mg BEDTIME [facility] Administration Protocol Nicotine 14 mg 09/28/20 12:45 10/02/20 08:58 Nicotine 14 Mg Patch.Td24 TRANSDERMA 14 mg DAILY [facility] Administration Omeprazole 20 mg 09/27/20 06:30 10/03/20 06:16 Omeprazole 20 Mg Capsule.Dr PO 20 mg DAILY@0630 [facility] Administration Ondansetron HCl 4 mg 09/26/20 23:54 Ondansetron Hcl 4 Mg/2 Ml Vial IVPUSH Q8H PRN Nausea and Vomiting Pharmacy Consult 1 each 09/26/20 19:06 Consult Rx Perform Med Rec MISCELLANE ONCE PRN Consult order Phenytoin 100 mg 09/27/20 09:00 10/02/20 19:08 Phenytoin Chewable 50 Mg Tab.Chew PO 100 mg TID [facility] Administration Sodium Chloride 3 ml 09/27/20 00:00 10/02/20 19:48 0.9 % Sodium Chloride Flush 3 Ml Syringe IVFLUSH 3 ml QSHIFT [facility] Administration Tamsulosin HCl 0.4 mg 09/27/20 17:30 10/02/20 16:57 Tamsulosin Hcl 0.4 Mg Capsule PO 0.4 mg DAILY@1730 [facility] Administration Thiamine HCl 100 mg 10/05/20 09:00 Thiamine Hcl 100 Mg Tablet PO DAILY [facility] Tiotropium [place] 1 puff 09/27/20 08:00 10/03/20 07:44 Tiotropium [place] 18 Mcg Cap.W.Dev INHALE Not Given RDAILY [facility] Vitamin D 50 mcg 09/27/20 09:00 10/02/20 08:58 Cholecalciferol (Vitamin D3) 25 Mcg Tablet PO 50 mcg DAILY [facility] Administration Labs CBC & Chem 7: 09/29/20 07:34 09/29/20 07:34 Microbiology Microbiology Results: Microbiology 09/27/20 06:28 Blood - Venous Blood Culture - Final No growth after 5 days. 09/27/20 06:28 Blood - Venous Blood Culture - Final No growth after 5 days. 09/26/20 18:21 Blood - Venous Blood Culture - Final No growth after 5 days. 09/26/20 17:43 Urine clean catch - Clean Catch Midstream Urine Culture - Final 09/26/20 18:14 Blood - Venous Blood Culture - Final Bacillus species Assessment and Plan (1) Hyperammonemia: Status: Acute (2) Encephalopathy: Status: Acute (3) Altered mental status: Status: Acute (4) UTI (urinary tract infection): Status: Acute Assessment and Plan: 64yo M with hx EtOH abuse, ?cirrhosis, HCV [treated/cured], HTN presented to the hospital after being found unresponsitve by his neighbor admitted with encephalopathy + HTN urgency encephalopathy - treated hepatic component with rifaximin + lactulose. seems to have improved, doesnt look like patient actually has cirrhosis, does not appear to have an other squelae, us negative - treating possible component of Wernicke/Korskoff with thiamine, level pending - Utox negative - also possibly had a seizure- pt was not taking phenytoin as prescribed - d/c'ed gabapentin likely in his chronic state now, has capacity to make decisions about proxy, but not for dispo planning UTI completed 7 days ceftriaxone HTN urgency resolved with resumption of home meds [lisinopril, metoprolol succinate]; increase lisinopril + recheck BMP in a few days; historically noncompliant with medications hypoMg repleted hx cardiomyopathy not in decompensated HF. continue BRITNEY-I, B-david seizure hx continue phenytoin. clearly was not taking it [level undetectable] Tn-I elevation delta <50%, old T wave abnormality on EKG, not ACS alcohol dependence with withdrawl - phenobarbital taper - supplement thiamine + folate - counseling GERD - continue PPI VTE ppx - LMWH dispo will need placement
[2020-10-03] MEDS: Phenytoin Chewable 50 MG TAB.CHEW 100 MG PO ×3 (11:05→20:23)
[2020-10-03] MEDS: lisinopriL 40 MG TABLET PO (11:05)
[2020-10-03] MEDS: 0.9 % Sodium Chloride Flush 3 ML SYRINGE IVFLUSH ×3 (11:06→23:19)
[2020-10-03] MEDS: Cholecalciferol (Vitamin D3) 25 MCG TABLET 50 MCG PO (11:06)
[2020-10-03] MEDS: Nicotine 14 MG PATCH.TD24 TRANSDERMA (11:06)
[2020-10-03] MEDS: Folic Acid 1 MG TABLET PO (11:06)
[2020-10-03] MEDS: Thiamine HCL 250 MG in 0.9 % Sodium Chloride 100 ML 205 MG IV (11:19)
[2020-10-03 11:23] VITALS: BP 126/72; PULSE 69; RESP 19; TEMP 37.4; O2SAT 95
--- NOTE | 2020-10-03 12:14 | MHC.CM.PN ---
EMR REVIEWED, PPT REMAINS W/1:1 SITTER, UNABLE TO REMOVE SITTER AT THIS TIME DUE TO PT BEING DISORGANIZED AND A HIGH FALL RISK, NO D/C PLANNED FOR TODAY, [facility] FOLLOWING AND HAVE BEEN UPDATED VIA [employer].
[2020-10-03 15:24] VITALS: BP 126/68; PULSE 68; RESP 19; TEMP 36.2; O2SAT 98
[2020-10-03] MEDS: Tamsulosin HCL 0.4 MG CAPSULE PO (17:59)
[2020-10-03 19:33] VITALS: BP 154/77; PULSE 60; RESP 19; TEMP 36.2; O2SAT 97
[2020-10-03 20:18] VITALS: BP 155/75; PULSE 65
[2020-10-03] MEDS: Melatonin 3 MG TABLET 6 MG PO (20:18)
[2020-10-03] MEDS: Metoprolol Succinate ER 25 MG TAB.ER.24H PO (20:18)
[2020-10-03] MEDS: Atorvastatin Calcium 40 MG TABLET PO (20:19)
[2020-10-03] MEDS: Enoxaparin Sodium 40 MG/0.4 ML SYRINGE SUBCUT (20:23)
[2020-10-03 23:25] VITALS: BP 143/68; PULSE 61; RESP 15; TEMP 36.2; O2SAT 97
[2020-10-04 03:15] VITALS: BP 142/65; PULSE 59; RESP 16; TEMP 36.2; O2SAT 97
[2020-10-04] MEDS: Omeprazole 20 MG CAPSULE.DR PO (05:42)
[2020-10-04 08:00] VITALS: BP 138/75; PULSE 68; RESP 20; TEMP 36.1; O2SAT 98
[2020-10-04] MEDS: Phenytoin Chewable 50 MG TAB.CHEW 100 MG PO ×3 (09:21→20:15)
[2020-10-04] MEDS: Thiamine HCL 250 MG in 0.9 % Sodium Chloride 100 ML 205 MG IV (09:21)
[2020-10-04] MEDS: Nicotine 14 MG PATCH.TD24 TRANSDERMA (09:21)
[2020-10-04] MEDS: Folic Acid 1 MG TABLET PO (09:22)
[2020-10-04] MEDS: lisinopriL 40 MG TABLET PO (09:22)
[2020-10-04] MEDS: 0.9 % Sodium Chloride Flush 3 ML SYRINGE IVFLUSH ×3 (09:22→20:16)
[2020-10-04] MEDS: Cholecalciferol (Vitamin D3) 25 MCG TABLET 50 MCG PO (09:22)
--- NOTE | 2020-10-04 09:36 | P.PNIM_ITS ---
Subjective Subjective Date of Service: 10/04/20 Interval History: no complaints Cardiovascular Cardiovascular: Reports no additional cardiovascular complaints Gastrointestinal Gastrointestinal: Reports no additional gastrointestinal complaints Physical Exam Vital Signs: Vital Signs: Last Vital Signs Temp 97.0 F 10/04/20 08:00 Pulse 68 10/04/20 08:00 Resp 20 10/04/20 08:00 BP 138/75 10/04/20 08:00 Pulse Ox 98 10/04/20 08:00 Body Mass Index 25.8 general: disoriented, no acute distress Resp: CTA bilateral CVS: S1,S2,RRR GI: soft, non tender, non distended Neuro: motor grossly intact Psych: agressive at times Objective Data Current Medications Generic Name Dose Route Start Last Admin Trade Name Freq PRN Reason Stop Dose Admin Acetaminophen 650 mg 09/26/20 23:54 Acetaminophen 325 Mg Tablet PO Q6H PRN Pain, Mild (Pain Scale 1-3) Atorvastatin Calcium 40 mg 09/27/20 21:00 10/03/20 20:19 Atorvastatin Calcium 40 Mg Tablet PO 40 mg BEDTIME [facility] Administration Docusate Sodium 100 mg 09/26/20 23:54 Docusate Sodium 100 Mg Capsule PO DAILY PRN Constipation Enoxaparin Sodium 40 mg 10/02/20 22:00 10/03/20 20:23 Enoxaparin Sodium 40 Mg/0.4 Ml Syringe SUBCUT 40 mg Q24H [facility] Administration Folic Acid 1 mg 09/27/20 09:00 10/04/20 09:22 Folic Acid 1 Mg Tablet PO 1 mg DAILY [facility] Administration Lisinopril 40 mg 09/30/20 09:00 10/04/20 09:22 Lisinopril 40 Mg Tablet PO 40 mg DAILY [facility] Administration Protocol Medication 1 each 09/27/20 09:00 No Benzodiazepines MISCELLANE DAILY [facility] Melatonin 6 mg 09/27/20 21:00 10/03/20 20:18 Melatonin 3 Mg Tablet PO 6 mg BEDTIME [facility] Administration Metoprolol Succinate 25 mg 09/27/20 21:00 10/03/20 20:18 Metoprolol Succinate Er 25 Mg Tab.Er.24h PO 25 mg BEDTIME [facility] Administration Protocol Nicotine 14 mg 09/28/20 12:45 10/04/20 09:21 Nicotine 14 Mg Patch.Td24 TRANSDERMA 14 mg DAILY [facility] Administration Omeprazole 20 mg 09/27/20 06:30 10/04/20 05:42 Omeprazole 20 Mg Capsule. PO 20 mg DAILY@0630 [facility] Administration Ondansetron HCl 4 mg 09/26/20 23:54 Ondansetron Hcl 4 Mg/2 Ml Vial IVPUSH Q8H PRN Nausea and Vomiting Pharmacy Consult 1 each 09/26/20 19:06 Consult Rx Perform Med Rec MISCELLANE ONCE PRN Consult order Phenytoin 100 mg 09/27/20 09:00 10/04/20 09:21 Phenytoin Chewable 50 Mg Tab.Chew PO 100 mg TID [facility] Administration Sodium Chloride 3 ml 09/27/20 00:00 10/04/20 09:22 0.9 % Sodium Chloride Flush 3 Ml Syringe IVFLUSH 3 ml QSHIFT [facility] Administration Tamsulosin HCl 0.4 mg 09/27/20 17:30 10/03/20 17:59 Tamsulosin Hcl 0.4 Mg Capsule PO 0.4 mg DAILY@1730 [facility] Administration Thiamine HCl 100 mg 10/05/20 09:00 Thiamine Hcl 100 Mg Tablet PO DAILY [facility] Tiotropium [place] 1 puff 09/27/20 08:00 10/04/20 08:38 Tiotropium [place] 18 Mcg Cap.W.Dev INHALE Not Given RDAILY [facility] Vitamin D 50 mcg 09/27/20 09:00 10/04/20 09:22 Cholecalciferol (Vitamin D3) 25 Mcg Tablet PO 50 mcg DAILY [facility] Administration Labs CBC & Chem 7: 09/29/20 07:34 09/29/20 07:34 Microbiology Microbiology Results: Microbiology 09/27/20 06:28 Blood - Venous Blood Culture - Final No growth after 5 days. 09/27/20 06:28 Blood - Venous Blood Culture - Final No growth after 5 days. 09/26/20 18:21 Blood - Venous Blood Culture - Final No growth after 5 days. 09/26/20 17:43 Urine clean catch - Clean Catch Midstream Urine Culture - Final 09/26/20 18:14 Blood - Venous Blood Culture - Final Bacillus species Assessment and Plan (1) Hyperammonemia: Status: Acute (2) Encephalopathy: Status: Acute (3) Altered mental status: Status: Acute (4) UTI (urinary tract infection): Status: Acute Assessment and Plan: 64yo M with hx EtOH abuse, ?cirrhosis, HCV [treated/cured], HTN presented to the hospital after being found unresponsitve by his neighbor admitted with encephalopathy + HTN urgency encephalopathy - treated hepatic component with rifaximin + lactulose. seems to have improved, doesnt look like patient actually has cirrhosis, does not appear to have an other squelae, us negative - treating possible component of Wernicke/Korskoff with thiamine, level pending, will also check b12 - Utox negative - also possibly had a seizure- pt was not taking phenytoin as prescribed - d/c'ed gabapentin likely in his chronic state now, has capacity to make decisions about proxy, but not for dispo planning UTI completed 7 days ceftriaxone HTN urgency resolved with resumption of home meds [lisinopril, metoprolol succinate]; increase lisinopril + recheck BMP in a few days; historically noncompliant with medications hypoMg repleted hx cardiomyopathy not in decompensated HF. continue BRITNEY-I, B-david seizure hx continue phenytoin. clearly was not taking it [level undetectable] Tn-I elevation delta <50%, old T wave abnormality on EKG, not ACS alcohol dependence with withdrawl - phenobarbital taper - supplement thiamine + folate - counseling GERD - continue PPI VTE ppx - LMWH dispo will need placement
[2020-10-04 11:31] VITALS: BP 172/84; PULSE 62; RESP 20; TEMP 36.3; O2SAT 96
[2020-10-04 11:51] LABS: Codeine, Ur NEGATIVE; Hydrocodone, Ur NEGATIVE
[2020-10-04 11:52] LABS: Hydromorphone, Ur NEGATIVE; Morphine, Ur NEGATIVE; Norhydrocodone, Ur NEGATIVE; Noroxycodone, Ur NEGATIVE; Oxycodone, Ur NEGATIVE; Oxymorphone, Ur NEGATIVE
[2020-10-04 13:17] LABS: Vitamin B1 >1200 nmol/L (8-30)
[2020-10-04] MEDS: Haloperidol Lactate 5 MG/ML VIAL 2.5 MG IM (13:38)
[2020-10-04] MEDS: OLANZapine 5 MG TABLET PO ×2 (15:03→19:24)
[2020-10-04] MEDS: Tamsulosin HCL 0.4 MG CAPSULE PO (17:04)
[2020-10-04] MEDS: Melatonin 3 MG TABLET 6 MG PO (19:23)
[2020-10-04 19:24] VITALS: BP 136/68; PULSE 80
[2020-10-04] MEDS: Atorvastatin Calcium 40 MG TABLET PO (19:24)
[2020-10-04] MEDS: Metoprolol Succinate ER 25 MG TAB.ER.24H PO (19:24)
[2020-10-04] MEDS: Enoxaparin Sodium 40 MG/0.4 ML SYRINGE SUBCUT (21:01)
[2020-10-05] VITALS (8 sets, daily range): BP systolic 135–183; BP diastolic 61–84; PULSE 57–109; RESP 14–18; TEMP 35.9–36.4; O2SAT 94–99
[2020-10-05] MEDS: Omeprazole 20 MG CAPSULE.DR PO (05:50)
[2020-10-05 06:30] LABS: Hematocrit 42.8 % (42-52); Mean Corpuscular HGB Conc 32.7 g/dl (31.0-36.0); Mean Corpuscular Hemoglobin 32.7 pg (27.0-33.0); Mean Platelet Volume 9.3 fL (9.4-12.4); Platelet Count 257 X10*3/uL (160-400); Red Blood Count 4.28 X10*6/uL (4.60-5.80); Red Cell Distribution Width 13.7 % (11.0-16.0); White Blood Count 6.5 X10*3/uL (4.8-10.8)
[2020-10-05 07:11] LABS: Anion Gap 13 (12-20); Blood Urea Nitrogen 12 mg/dL (9-16); Calcium 9.6 mg/dL (8.4-10.2); Carbon Dioxide 24 mmol/L (22-29); Chloride 107 mmol/L (96-108); Creatinine Clr Calc Pharmacy 79.1; Estimated Glomerular Filt Rate > 60; Glucose Fasting 114 mg/dL (60-99); Potassium 4.2 mmol/L (3.3-5.1); Sodium 140 mmol/L (135-145)
[2020-10-05] MEDS: lisinopriL 40 MG TABLET PO (08:20)
[2020-10-05] MEDS: Nicotine 14 MG PATCH.TD24 TRANSDERMA (08:21)
[2020-10-05] MEDS: Thiamine HCL 100 MG TABLET PO (08:21)
[2020-10-05] MEDS: OLANZapine 5 MG TABLET PO ×2 (08:21→20:32)
[2020-10-05] MEDS: Cholecalciferol (Vitamin D3) 25 MCG TABLET 50 MCG PO (08:21)
[2020-10-05] MEDS: Folic Acid 1 MG TABLET PO (08:21)
[2020-10-05] MEDS: 0.9 % Sodium Chloride Flush 3 ML SYRINGE IVFLUSH ×3 (08:22→20:33)
[2020-10-05] MEDS: Phenytoin Chewable 50 MG TAB.CHEW 100 MG PO ×3 (09:26→20:31)
--- NOTE | 2020-10-05 12:50 | HO.PM.IMPN ---
Subjective Subjective Date of Service: 10/05/20 Interval History: calmer today Cardiovascular Cardiovascular: Reports no additional cardiovascular complaints Respiratory Respiratory: Reports no additional respiratory complaints Physical Exam Vital Signs: Vital Signs: Last Vital Signs Temp 97.0 F 10/05/20 11:52 Pulse 59 10/05/20 11:52 Resp 16 10/05/20 11:52 BP 148/72 H 10/05/20 11:52 Pulse Ox 97 10/05/20 11:52 Body Mass Index 25.8 general: disoriented, no acute distress Resp: CTA bilateral CVS: S1,S2,RRR GI: soft, non tender, non distended Neuro: motor grossly intact Psych: agressive at times Objective Data Current Medications Generic Name Dose Route Start Last Admin Trade Name Freq PRN Reason Stop Dose Admin Acetaminophen 650 mg 09/26/20 23:54 Acetaminophen 325 Mg Tablet PO Q6H PRN Pain, Mild (Pain Scale 1-3) Atorvastatin Calcium 40 mg 09/27/20 21:00 10/04/20 19:24 Atorvastatin Calcium 40 Mg Tablet PO 40 mg BEDTIME [facility]AGROS Administration Docusate Sodium 100 mg 09/26/20 23:54 Docusate Sodium 100 Mg Capsule PO DAILY PRN Constipation Enoxaparin Sodium 40 mg 10/02/20 22:00 10/04/20 21:01 Enoxaparin Sodium 40 Mg/0.4 Ml Syringe SUBCUT 40 mg Q24H MILAGROS Administration Folic Acid 1 mg 09/27/20 09:00 10/05/20 08:21 Folic Acid 1 Mg Tablet PO 1 mg DAILY [facility]AGROS Administration Lisinopril 40 mg 09/30/20 09:00 10/05/20 08:20 Lisinopril 40 Mg Tablet PO 40 mg DAILY MILAGROS Administration Protocol Medication 1 each 09/27/20 09:00 No Benzodiazepines MISCELLANE DAILY MILAGROS Melatonin 6 mg 09/27/20 21:00 10/04/20 19:23 Melatonin 3 Mg Tablet PO 6 mg BEDTIME MILAGROS Administration Metoprolol Succinate 25 mg 09/27/20 21:00 10/04/20 19:24 Metoprolol Succinate Er 25 Mg Tab.Er.24h PO 25 mg BEDTIME MILAGROS Administration Protocol Nicotine 14 mg 09/28/20 12:45 10/05/20 08:21 Nicotine 14 Mg Patch.Td24 TRANSDERMA 14 mg DAILY [facility] Administration Olanzapine 5 mg 10/04/20 21:00 10/05/20 08:21 Olanzapine 5 Mg Tablet PO 5 mg BID [facility]AGROS Administration Omeprazole 20 mg 09/27/20 06:30 10/05/20 05:50 Omeprazole 20 Mg Capsule.Dr PO 20 mg DAILY@0630 [facility] Administration Ondansetron HCl 4 mg 09/26/20 23:54 Ondansetron Hcl 4 Mg/2 Ml Vial IVPUSH Q8H PRN Nausea and Vomiting Pharmacy Consult 1 each 09/26/20 19:06 Consult Rx Perform Med Rec MISCELLANE ONCE PRN Consult order Phenytoin 100 mg 09/27/20 09:00 10/05/20 09:26 Phenytoin Chewable 50 Mg Tab.Chew PO 100 mg TID [facility]AGROS Administration Sodium Chloride 3 ml 09/27/20 00:00 10/05/20 08:22 0.9 % Sodium Chloride Flush 3 Ml Syringe IVFLUSH 3 ml QSHIFT [facility] Administration Tamsulosin HCl 0.4 mg 09/27/20 17:30 10/04/20 17:04 Tamsulosin Hcl 0.4 Mg Capsule PO 0.4 mg DAILY@1730 [facility] Administration Thiamine HCl 100 mg 10/05/20 09:00 10/05/20 08:21 Thiamine Hcl 100 Mg Tablet PO 100 mg DAILY [facility] Administration Tiotropium [place] 1 puff 09/27/20 08:00 10/05/20 07:34 Tiotropium [place] 18 Mcg Cap.W.Dev INHALE 1 puff RDAILY [facility] Administration Vitamin D 50 mcg 09/27/20 09:00 10/05/20 08:21 Cholecalciferol (Vitamin D3) 25 Mcg Tablet PO 50 mcg DAILY [facility]AGROS Administration Labs CBC & Chem 7: 10/05/20 06:14 10/05/20 06:14 Microbiology Microbiology Results: Microbiology 09/27/20 06:28 Blood - Venous Blood Culture - Final No growth after 5 days. 09/27/20 06:28 Blood - Venous Blood Culture - Final No growth after 5 days. 09/26/20 18:21 Blood - Venous Blood Culture - Final No growth after 5 days. 09/26/20 17:43 Urine clean catch - Clean Catch Midstream Urine Culture - Final 09/26/20 18:14 Blood - Venous Blood Culture - Final Bacillus species Assessment and Plan (1) Hyperammonemia: Status: Acute (2) Encephalopathy: Status: Acute (3) Altered mental status: Status: Acute (4) UTI (urinary tract infection): Status: Acute Assessment and Plan: 64yo M with hx EtOH abuse, ?cirrhosis, HCV [treated/cured], HTN presented to the hospital after being found unresponsitve by his neighbor admitted with encephalopathy + HTN urgency encephalopathy - treated hepatic component with rifaximin + lactulose. seems to have improved, doesnt look like patient actually has cirrhosis, does not appear to have an other squelae, us negative - treating possible component of Wernicke/Korskoff, thimaine was elevated, but i think drawn after being given iv, will also check b12 - Utox negative - also possibly had a seizure- pt was not taking phenytoin as prescribed - d/c'ed gabapentin likely in his chronic state now, has capacity to make decisions about proxy, but not for dispo planning UTI completed 7 days ceftriaxone HTN urgency resolved with resumption of home meds [lisinopril, metoprolol succinate]; increase lisinopril + recheck BMP in a few days; historically noncompliant with medications hypoMg repleted hx cardiomyopathy not in decompensated HF. continue BRITNEY-I, B-david seizure hx continue phenytoin. clearly was not taking it [level undetectable] Tn-I elevation delta <50%, old T wave abnormality on EKG, not ACS alcohol dependence with withdrawl - phenobarbital taper copmleted - supplement thiamine + folate - counseling GERD - continue PPI VTE ppx - LMWH dispo will need placement
[2020-10-05] MEDS: Tamsulosin HCL 0.4 MG CAPSULE PO (17:13)
[2020-10-05] MEDS: Enoxaparin Sodium 40 MG/0.4 ML SYRINGE SUBCUT (20:30)
[2020-10-05] MEDS: Melatonin 3 MG TABLET 6 MG PO (20:32)
[2020-10-05] MEDS: Metoprolol Succinate ER 25 MG TAB.ER.24H PO (20:32)
[2020-10-05] MEDS: Atorvastatin Calcium 40 MG TABLET PO (20:32)
[2020-10-06] VITALS (8 sets, daily range): BP systolic 107–183; BP diastolic 47–91; PULSE 63–99; RESP 16–64; TEMP 36–36.9; O2SAT 94–100
[2020-10-06] MEDS: Thiamine HCL 100 MG TABLET PO (07:41)
[2020-10-06] MEDS: Folic Acid 1 MG TABLET PO (07:41)
[2020-10-06] MEDS: Cholecalciferol (Vitamin D3) 25 MCG TABLET 50 MCG PO (07:41)
[2020-10-06] MEDS: Phenytoin Chewable 50 MG TAB.CHEW 100 MG PO ×3 (07:41→20:13)
[2020-10-06] MEDS: OLANZapine 5 MG TABLET PO ×2 (07:41→20:14)
[2020-10-06] MEDS: lisinopriL 40 MG TABLET PO (07:42)
[2020-10-06] MEDS: Nicotine 14 MG PATCH.TD24 TRANSDERMA (07:47)
--- NOTE | 2020-10-06 08:54 | P.PNIM_ITS ---
Subjective Subjective Date of Service: 10/06/20 Interval History: no complaints Cardiovascular Cardiovascular: Reports no additional cardiovascular complaints Gastrointestinal Gastrointestinal: Reports no additional gastrointestinal complaints Physical Exam Vital Signs: Vital Signs: Last Vital Signs Temp 96.8 F 10/06/20 07:47 Pulse 66 10/06/20 07:47 Resp 18 10/06/20 07:47 BP 147/82 H 10/06/20 07:47 Pulse Ox 98 10/06/20 07:47 Body Mass Index 25.8 general: disoriented, no acute distress Resp: CTA bilateral CVS: S1,S2,RRR GI: soft, non tender, non distended Neuro: motor grossly intact Psych: agressive at times Objective Data Current Medications Generic Name Dose Route Start Last Admin Trade Name Freq PRN Reason Stop Dose Admin Acetaminophen 650 mg 09/26/20 23:54 Acetaminophen 325 Mg Tablet PO Q6H PRN Pain, Mild (Pain Scale 1-3) Atorvastatin Calcium 40 mg 09/27/20 21:00 10/05/20 20:32 Atorvastatin Calcium 40 Mg Tablet PO 40 mg BEDTIME [facility]AGROS Administration Docusate Sodium 100 mg 09/26/20 23:54 Docusate Sodium 100 Mg Capsule PO DAILY PRN Constipation Enoxaparin Sodium 40 mg 10/02/20 22:00 10/05/20 20:30 Enoxaparin Sodium 40 Mg/0.4 Ml Syringe SUBCUT 40 mg Q24H MILAGROS Administration Folic Acid 1 mg 09/27/20 09:00 10/06/20 07:41 Folic Acid 1 Mg Tablet PO 1 mg DAILY [facility]AGROS Administration Lisinopril 40 mg 09/30/20 09:00 10/06/20 07:42 Lisinopril 40 Mg Tablet PO 40 mg DAILY MILAGROS Administration Protocol Medication 1 each 09/27/20 09:00 No Benzodiazepines MISCELLANE DAILY [facility]AGROS Melatonin 6 mg 09/27/20 21:00 10/05/20 20:32 Melatonin 3 Mg Tablet PO 6 mg BEDTIME [facility]AGROS Administration Metoprolol Succinate 25 mg 09/27/20 21:00 10/05/20 20:32 Metoprolol Succinate Er 25 Mg Tab.Er.24h PO 25 mg BEDTIME MILAGROS Administration Protocol Nicotine 14 mg 09/28/20 12:45 10/06/20 07:47 Nicotine 14 Mg Patch.Td24 TRANSDERMA 14 mg DAILY [facility]AGROS Administration Olanzapine 5 mg 10/04/20 21:00 10/06/20 07:41 Olanzapine 5 Mg Tablet PO 5 mg BID [facility] Administration Omeprazole 20 mg 09/27/20 06:30 10/06/20 04:53 Omeprazole 20 Mg Capsule. PO Not Given DAILY@0630 [facility] Ondansetron HCl 4 mg 09/26/20 23:54 Ondansetron Hcl 4 Mg/2 Ml Vial IVPUSH Q8H PRN Nausea and Vomiting Pharmacy Consult 1 each 09/26/20 19:06 Consult Rx Perform Med Rec MISCELLANE ONCE PRN Consult order Phenytoin 100 mg 09/27/20 09:00 10/06/20 07:41 Phenytoin Chewable 50 Mg Tab.Chew PO 100 mg TID [facility] Administration Sodium Chloride 3 ml 09/27/20 00:00 10/05/20 20:33 0.9 % Sodium Chloride Flush 3 Ml Syringe IVFLUSH 3 ml QSHIFT [facility] Administration Tamsulosin HCl 0.4 mg 09/27/20 17:30 10/05/20 17:13 Tamsulosin Hcl 0.4 Mg Capsule PO 0.4 mg DAILY@1730 [facility] Administration Thiamine HCl 100 mg 10/05/20 09:00 10/06/20 07:41 Thiamine Hcl 100 Mg Tablet PO 100 mg DAILY [facility] Administration Tiotropium [place] 1 puff 09/27/20 08:00 10/06/20 07:53 Tiotropium [place] 18 Mcg Cap.W.Dev INHALE 1 puff RDAILY [facility] Administration Vitamin D 50 mcg 09/27/20 09:00 10/06/20 07:41 Cholecalciferol (Vitamin D3) 25 Mcg Tablet PO 50 mcg DAILY [facility]AGROS Administration Labs CBC & Chem 7: 10/05/20 06:14 10/05/20 06:14 Microbiology Microbiology Results: Microbiology 09/27/20 06:28 Blood - Venous Blood Culture - Final No growth after 5 days. 09/27/20 06:28 Blood - Venous Blood Culture - Final No growth after 5 days. 09/26/20 18:21 Blood - Venous Blood Culture - Final No growth after 5 days. 09/26/20 17:43 Urine clean catch - Clean Catch Midstream Urine Culture - Final 09/26/20 18:14 Blood - Venous Blood Culture - Final Bacillus species Assessment and Plan (1) Hyperammonemia: Status: Acute (2) Encephalopathy: Status: Acute (3) Altered mental status: Status: Acute (4) UTI (urinary tract infection): Status: Acute Assessment and Plan: 64yo M with hx EtOH abuse, ?cirrhosis, HCV [treated/cured], HTN presented to the hospital after being found unresponsitve by his neighbor admitted with encephalopathy + HTN urgency encephalopathy - treated hepatic component with rifaximin + lactulose. seems to have improved, doesnt look like patient actually has cirrhosis, does not appear to have an other squelae, us negative - treating possible component of Wernicke/Korskoff, thimaine was elevated, but i think drawn after being given iv, will also check b12 - Utox negative - also possibly had a seizure- pt was not taking phenytoin as prescribed - d/c'ed gabapentin likely in his chronic state now, has capacity to make decisions about proxy, but not for dispo planning needs 24hrs off sitter for placement, doing much better now on zyprexa 5mg bid UTI completed 7 days ceftriaxone HTN urgency resolved with resumption of home meds [lisinopril, metoprolol succinate]; increase lisinopril + recheck BMP in a few days; historically noncompliant with medications hypoMg repleted hx cardiomyopathy not in decompensated HF. continue BRITNEY-I, B-david seizure hx continue phenytoin. clearly was not taking it [level undetectable] Tn-I elevation delta <50%, old T wave abnormality on EKG, not ACS alcohol dependence with withdrawl - phenobarbital taper copmleted - supplement thiamine + folate - counseling GERD - continue PPI VTE ppx - LMWH dispo will need placement
[2020-10-06] MEDS: 0.9 % Sodium Chloride Flush 3 ML SYRINGE IVFLUSH ×3 (14:10→23:33)
[2020-10-06] MEDS: Tamsulosin HCL 0.4 MG CAPSULE PO (17:01)
[2020-10-06] MEDS: Atorvastatin Calcium 40 MG TABLET PO (20:14)
[2020-10-06] MEDS: Metoprolol Succinate ER 25 MG TAB.ER.24H PO (20:14)
[2020-10-06] MEDS: Melatonin 3 MG TABLET 6 MG PO (20:14)
[2020-10-06] MEDS: Enoxaparin Sodium 40 MG/0.4 ML SYRINGE SUBCUT (21:10)
[2020-10-07] VITALS (8 sets, daily range): BP systolic 127–180; BP diastolic 63–90; PULSE 40–76; RESP 16–20; TEMP 36–37.2; O2SAT 96–100
[2020-10-07] MEDS: Phenytoin Chewable 50 MG TAB.CHEW 100 MG PO ×3 (07:38→20:00)
[2020-10-07] MEDS: Cholecalciferol (Vitamin D3) 25 MCG TABLET 50 MCG PO (07:38)
[2020-10-07] MEDS: Folic Acid 1 MG TABLET PO (07:38)
[2020-10-07] MEDS: Thiamine HCL 100 MG TABLET PO (07:38)
[2020-10-07] MEDS: OLANZapine 5 MG TABLET PO ×2 (07:38→19:59)
[2020-10-07] MEDS: 0.9 % Sodium Chloride Flush 3 ML SYRINGE IVFLUSH ×2 (07:38→14:28)
[2020-10-07] MEDS: Nicotine 14 MG PATCH.TD24 TRANSDERMA (07:38)
[2020-10-07] MEDS: lisinopriL 40 MG TABLET PO (07:38)
--- NOTE | 2020-10-07 08:48 | P.PNIM_ITS ---
Subjective Subjective Date of Service: 10/07/20 Interval History: no complaints Cardiovascular Cardiovascular: Reports no additional cardiovascular complaints Gastrointestinal Gastrointestinal: Reports no additional gastrointestinal complaints Physical Exam Vital Signs: Vital Signs: Last Vital Signs Temp 99.0 F 10/07/20 07:16 Pulse 62 10/07/20 07:38 Resp 20 10/07/20 07:16 BP 180/90 H 10/07/20 07:38 Pulse Ox 99 10/07/20 07:16 Body Mass Index 25.8 general: disoriented, no acute distress Resp: CTA bilateral CVS: S1,S2,RRR GI: soft, non tender, non distended Neuro: motor grossly intact Psych: agressive at times Objective Data Current Medications Generic Name Dose Route Start Last Admin Trade Name Freq PRN Reason Stop Dose Admin Acetaminophen 650 mg 09/26/20 23:54 Acetaminophen 325 Mg Tablet PO Q6H PRN Pain, Mild (Pain Scale 1-3) Atorvastatin Calcium 40 mg 09/27/20 21:00 10/06/20 20:14 Atorvastatin Calcium 40 Mg Tablet PO 40 mg BEDTIME [facility]ROS Administration Docusate Sodium 100 mg 09/26/20 23:54 Docusate Sodium 100 Mg Capsule PO DAILY PRN Constipation Enoxaparin Sodium 40 mg 10/02/20 22:00 10/06/20 21:10 Enoxaparin Sodium 40 Mg/0.4 Ml Syringe SUBCUT 40 mg Q24H [facility]AGROS Administration Folic Acid 1 mg 09/27/20 09:00 10/07/20 07:38 Folic Acid 1 Mg Tablet PO 1 mg DAILY [facility]AGROS Administration Lisinopril 40 mg 09/30/20 09:00 10/07/20 07:38 Lisinopril 40 Mg Tablet PO 40 mg DAILY MILAGROS Administration Protocol Medication 1 each 09/27/20 09:00 No Benzodiazepines MISCELLANE DAILY [facility]AGROS Melatonin 6 mg 09/27/20 21:00 10/06/20 20:14 Melatonin 3 Mg Tablet PO 6 mg BEDTIME MILAGROS Administration Metoprolol Succinate 25 mg 09/27/20 21:00 10/06/20 20:14 Metoprolol Succinate Er 25 Mg Tab.Er.24h PO 25 mg BEDTIME MILAGROS Administration Protocol Nicotine 14 mg 09/28/20 12:45 10/07/20 07:38 Nicotine 14 Mg Patch.Td24 TRANSDERMA 14 mg DAILY [facility]AGROS Administration Olanzapine 5 mg 10/04/20 21:00 10/07/20 07:38 Olanzapine 5 Mg Tablet PO 5 mg BID [facility] Administration Omeprazole 20 mg 09/27/20 06:30 10/07/20 06:59 Omeprazole 20 Mg Capsule.Dr PO Not Given DAILY@0630 [facility] Ondansetron HCl 4 mg 09/26/20 23:54 Ondansetron Hcl 4 Mg/2 Ml Vial IVPUSH Q8H PRN Nausea and Vomiting Pharmacy Consult 1 each 09/26/20 19:06 Consult Rx Perform Med Rec MISCELLANE ONCE PRN Consult order Phenytoin 100 mg 09/27/20 09:00 10/07/20 07:38 Phenytoin Chewable 50 Mg Tab.Chew PO 100 mg TID [facility] Administration Sodium Chloride 3 ml 09/27/20 00:00 10/07/20 07:38 0.9 % Sodium Chloride Flush 3 Ml Syringe IVFLUSH 3 ml QSHIFT [facility] Administration Tamsulosin HCl 0.4 mg 09/27/20 17:30 10/06/20 17:01 Tamsulosin Hcl 0.4 Mg Capsule PO 0.4 mg DAILY@1730 [facility] Administration Thiamine HCl 100 mg 10/05/20 09:00 10/07/20 07:38 Thiamine Hcl 100 Mg Tablet PO 100 mg DAILY [facility] Administration Tiotropium [place] 1 puff 09/27/20 08:00 10/07/20 08:30 Tiotropium [place] 18 Mcg Cap.W.Dev INHALE Not Given RDAILY [facility] Vitamin D 50 mcg 09/27/20 09:00 10/07/20 07:38 Cholecalciferol (Vitamin D3) 25 Mcg Tablet PO 50 mcg DAILY MILAGROS Administration Labs CBC & Chem 7: 10/05/20 06:14 10/05/20 06:14 Microbiology Microbiology Results: Microbiology 09/27/20 06:28 Blood - Venous Blood Culture - Final No growth after 5 days. 09/27/20 06:28 Blood - Venous Blood Culture - Final No growth after 5 days. 09/26/20 18:21 Blood - Venous Blood Culture - Final No growth after 5 days. 09/26/20 17:43 Urine clean catch - Clean Catch Midstream Urine Culture - Final 09/26/20 18:14 Blood - Venous Blood Culture - Final Bacillus species Assessment and Plan (1) Hyperammonemia: Status: Acute (2) Encephalopathy: Status: Acute (3) Altered mental status: Status: Acute (4) UTI (urinary tract infection): Status: Acute Assessment and Plan: 64yo M with hx EtOH abuse, ?cirrhosis, HCV [treated/cured], HTN presented to the hospital after being found unresponsitve by his neighbor admitted with encephalopathy + HTN urgency encephalopathy - treated hepatic component with rifaximin + lactulose. seems to have improved, doesnt look like patient actually has cirrhosis, does not appear to have an other squelae, us negative - treating possible component of Wernicke/Korskoff, thimaine was elevated, but i think drawn after being given iv, will also check b12 - Utox negative - also possibly had a seizure- pt was not taking phenytoin as prescribed - d/c'ed gabapentin likely in his chronic state now, has capacity to make decisions about proxy, but not for dispo planning needs 24hrs off sitter for placement, doing much better now on zyprexa 5mg bid, discontinue 1:1 sitter for now UTI completed 7 days ceftriaxone HTN urgency resolved with resumption of home meds [lisinopril, metoprolol succinate]; increase lisinopril + recheck BMP in a few days; historically noncompliant with medications hypoMg repleted hx cardiomyopathy not in decompensated HF. continue BRITNEY-I, B-david seizure hx continue phenytoin. clearly was not taking it [level undetectable] Tn-I elevation delta <50%, old T wave abnormality on EKG, not ACS alcohol dependence with withdrawl - phenobarbital taper copmleted - supplement thiamine + folate - counseling GERD - continue PPI VTE ppx - LMWH dispo will need placement
--- NOTE | 2020-10-07 08:52 | MHC.CM.PN ---
at this time dc plan remains the same, for patient to go to [facility] - STR. cm to cont. to follow.
[2020-10-07] MEDS: Acetaminophen 325 MG TABLET 650 MG PO (14:28)
[2020-10-07] MEDS: Tamsulosin HCL 0.4 MG CAPSULE PO (17:44)
[2020-10-07] MEDS: Atorvastatin Calcium 40 MG TABLET PO (19:59)
[2020-10-07] MEDS: Melatonin 3 MG TABLET 6 MG PO (20:00)
[2020-10-07] MEDS: Metoprolol Succinate ER 25 MG TAB.ER.24H PO (20:02)
[2020-10-07] MEDS: Enoxaparin Sodium 40 MG/0.4 ML SYRINGE SUBCUT (21:59)
[2020-10-08] VITALS (8 sets, daily range): BP systolic 117–173; BP diastolic 69–82; PULSE 58–84; RESP 16–18; TEMP 36.1–36.6; O2SAT 97–100
[2020-10-08] MEDS: 0.9 % Sodium Chloride Flush 3 ML SYRINGE IVFLUSH ×3 (01:32→14:54)
[2020-10-08 03:54] LABS: Folate 13.6 ng/mL (> or = 4.0); Vitamin B12 249 pg/mL (200-900)
[2020-10-08] MEDS: Omeprazole 20 MG CAPSULE.DR PO (06:16)
[2020-10-08] MEDS: lisinopriL 40 MG TABLET PO (07:49)
[2020-10-08] MEDS: Cholecalciferol (Vitamin D3) 25 MCG TABLET 50 MCG PO (07:49)
[2020-10-08] MEDS: OLANZapine 5 MG TABLET PO ×2 (07:49→19:55)
[2020-10-08] MEDS: Thiamine HCL 100 MG TABLET PO (07:49)
[2020-10-08] MEDS: Phenytoin Chewable 50 MG TAB.CHEW 100 MG PO ×3 (07:49→19:56)
[2020-10-08] MEDS: Folic Acid 1 MG TABLET PO (07:49)
[2020-10-08] MEDS: Nicotine 14 MG PATCH.TD24 TRANSDERMA (07:50)
--- NOTE | 2020-10-08 10:07 | PM.DS ---
DS: Providers Provider Date of Service: 10/08/20 Date of admission: 09/26/20 22:00 Primary care physician: Lori Hernandez MD Consults: 09/27/20 08:10 Consult to Care Team Routine Comment: Reason for consultation: EtOH ?other substances 10/02/20 11:42 Consult to Psychiatry Routine Consulting Provider: Agustin Cabral Reason for consultation: ? capacity for health care proxy, decision to live alone DS: Diagnosis Discharge Diagnosis (1) Hyperammonemia: Status: Acute (2) Encephalopathy: Status: Acute (3) Altered mental status: Status: Acute (4) UTI (urinary tract infection): Status: Acute (5) B12 deficiency: Status: Acute (6) Dementia: Status: Acute DS: Medications Discharge Medications Home Medications: Home Medications Medication Instructions Recorded Confirmed atorvastatin 40 mg tablet 40 mg PO BEDTIME 04/01/20 09/26/20 cholecalciferol (vitamin D3) 50 50 mcg PO QAM 04/01/20 09/26/20 mcg (2,000 unit) capsule gabapentin 600 mg tablet 600 mg PO TID 04/01/20 09/26/20 lisinopril 30 mg tablet 30 mg PO QAM 04/01/20 09/26/20 melatonin 5 mg tablet 5 mg PO BEDTIME 04/01/20 09/26/20 metoprolol succinate 25 mg 25 mg PO BEDTIME 04/01/20 09/26/20 tablet,extended release 24 hr phenytoin 50 mg chewable tablet 100 mg PO TID 04/01/20 09/26/20 tamsulosin 0.4 mg capsule 0.4 mg PO DAILY 04/01/20 09/26/20 Incruse Ellipta 1 puff INHALATION DAILY 09/26/20 09/26/20 Previous Rx's Medication Instructions Recorded pantoprazole 20 mg tablet,delayed 20 mg PO QAM #30 tab 07/24/20 release cyanocobalamin (vitamin B-12) 1,000 mcg PO DAILY #20 cap 10/08/20 folic acid 1 mg PO DAILY #0 tab 10/08/20 olanzapine 5 mg PO BID #0 tab 10/08/20 thiamine mononitrate (vit B1) 100 mg PO DAILY #0 tab 10/08/20 DS: Summary Hospital Course Hospital Course: patient was admitted for unresponsivess - metabolic encephalopathy likely due to seizure due to non complaince and ETOH dependence. Patient was initially treated empirically for hepatic encephalopathy with rifaximin and lactulose, but not appear to have cirrhosis or significant liver disease, he does have some alcoholic fatty liver, patient was also noted to have B12 deficiency, he was given 1000 mcg IM and will continue on 1000mcg po daily. phenytoin was resumed . he was treated for aclohol withdrawl with phenobarbital and symptoms resolved. 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 patient has now been doing well without a sitter and will be discharged to SNF. Time Spent with Patient Time attestation: Total time spent providing and/or coordinating discharge services: Discharge coordination time: Greater than 30 minutes Quality: Stroke Does the patient have a stroke diagnosis?: No Physical Exam Vital Signs: Vital Signs: Last Vital Signs Temp 97.2 F 10/08/20 07:45 Pulse 60 10/08/20 07:49 Resp 18 10/08/20 07:45 BP 167/79 H 10/08/20 07:49 Pulse Ox 97 10/08/20 07:45 Body Mass Index 25.8 General: AO X 3, no acute distress Resp: CTA bilateral CVS: S1,S2,RRR GI: soft, non tender, non distended Neuro: motor grossly intact Psych: impaired insight DS: Data Data Completed and Pending Labs on day of discharge: Laboratory Results - last 24 hr 10/05/20 06:14 Vitamin B12 249 Folate 13.6 Discharge Plan Discharge Patient Disposition: Xfer SNF Discharge Diagnosis: encephalopathy Referrals: Lori Hernandez MD [Primary Care Provider] - 1 Week Discharge Medications: New olanzapine 5 mg Tablet 5 mg PO BID Qty: 0 RF: 0 folic acid 1 mg Tablet 1 mg PO DAILY Qty: 0 RF: 0 thiamine mononitrate (vit B1) 100 mg Tablet 100 mg PO DAILY Qty: 0 RF: 0 cyanocobalamin (vitamin B-12) 1,000 mcg capsule 1,000 mcg PO DAILY Qty: 20 RF: 0 Continued pantoprazole 20 mg tablet,delayed release (DR/EC) 20 mg PO QAM Qty: 30 RF: 2 Incruse Ellipta 62.5 mcg/actuation blister with device 1 puff inhalation DAILY RF: 0 lisinopril 30 mg tablet 30 mg PO QAM RF: 0 metoprolol succinate 25 mg tablet extended release 24 hr 25 mg PO BEDTIME RF: 0 atorvastatin 40 mg tablet 40 mg PO BEDTIME RF: 0 gabapentin 600 mg tablet 600 mg PO TID RF: 0 tamsulosin 0.4 mg capsule 0.4 mg PO DAILY RF: 0 melatonin 5 mg tablet 5 mg PO BEDTIME RF: 0 cholecalciferol (vitamin D3) 50 mcg (2,000 unit) capsule 50 mcg PO QAM RF: 0 phenytoin 50 mg tablet,chewable 100 mg PO TID RF: 0 Discharge Orders: Discharge Order (Routine); Ordered 10/08/20 Ordered By: Sonido Abdullahi Diet: advance to usual diet Activity on Discharge: As tolerated Stand Alone Forms: Patient Portal Discharge page Care Plan Goals: recovery Health Concerns: seizure, dementia, b12 deficiency Plan of Treatment: med compliance, b12 supplement Assessment: see above
[2020-10-08] MEDS: Cyanocobalamin (Vitamin B-12) 1,000 MCG/ML VIAL 1000 MCG IM (10:45)
[2020-10-08 11:38] LABS: COVID-19 Test Negative (Negative)
--- NOTE | 2020-10-08 11:44 | MHC.CM.PN ---
PT READY FOR D/C HOWEVER SNF FOLLOWING NO LONGER OFFERING BED, PT NOT SKILLING IN FOR PT, PT'S COUSIN/HCP WOULD LIKE PT CLOSE TO [place] POSSIBLE, CM HAS SENT 12 ADDITIONAL REFERRALS FOR [facility] BED. CM AWAITING RESPONSES TO 03/21 REFERRRALS AND WILL CONT TO FOLLOW D/C NEEDS.
--- NOTE | 2020-10-08 12:56 | PC.NURSE ---
This nurse has been caring for patient 10/07 and 10/08. Patient sitter d/c over 24hrs ago. This nurse has witnessed no aggression or agitation from patient. Patient is easily redirectable when trying to leave room, no aggression or agitation. Patient takes pills whole with no difficulty. Ambulates with no difficulty, steady gait. Patient follows simple commands. This patient has not required any PRN or one time dose medications.
--- NOTE | 2020-10-08 14:24 | MHC.CM.PN ---
Addendum entered by Ranjana Gomez RN 10/08/20 15:16: CM CONTACTED LIASON AT [facility] AT 2:35PM [phone] WHO REPORTED THEY MAY BE ABLE TO OFFER OT A BED TOMORROW AFTER HE HAS BEEN OFF 1:1 SITTER FOR 48HRS CM WILL FOLLOW-UP WITH [facility]IA[facility] IN AM, [facility] IS NOW [facility] FIRST CHOICE, [facility] ALSO RESPONDED AND ALSO MAY HAVE A BED AVAILABLE TOMORROW. CM TO CONT TO FOLLOW D/C NEEDS. Addendum entered by Ranjana Gomez RN 10/08/20 14:38: [facility] MAY HAVE A BED AVAILABLE TOMORROW 10/09, CM WILL CALL [facility] TO NO RESPONSE FROM REFERRAL. Original Note: CM CALLED PT'S COUSIN/HCP PRISCA AT 2:21PM [phone] TO DISCUSS SNF CHOICES DUE TO [facility] DECLINING PT AFTER PREVIOUSLY ACCEPTING PT, PER HCP HE DOES NOT WANT PT OUT OF [place] AND REPORTS IF WE CANNOT PLACE PT IN [place] HE WILL CARE FOR PT AT HOME. PER HCP PT HAS NO OTHER FAMILY IN [facility], AND HAS A BROTHER AND SISTER IN [place] WHO ARE VERY SICK. CM WILL CONT TO FOLLOW FOR D/C NEEDS
--- NOTE | 2020-10-08 14:35 | HO.PM.IMPN ---
Subjective Subjective Date of Service: 10/08/20 Interval History: stable Cardiovascular Cardiovascular: Reports no additional cardiovascular complaints Respiratory Respiratory: Reports no additional respiratory complaints Physical Exam Vital Signs: Vital Signs: Last Vital Signs Temp 96.9 F 10/08/20 11:53 Pulse 84 10/08/20 11:53 Resp 18 10/08/20 11:53 BP 117/69 10/08/20 11:53 Pulse Ox 99 10/08/20 11:53 Body Mass Index 25.8 General: AO X 3, no acute distress Resp: CTA bilateral CVS: S1,S2,RRR GI: soft, non tender, non distended Neuro: motor grossly intact Psych: impaired insight Objective Data Current Medications Generic Name Dose Route Start Last Admin Trade Name Freq PRN Reason Stop Dose Admin Acetaminophen 650 mg 09/26/20 23:54 10/07/20 14:28 Acetaminophen 325 Mg Tablet PO 650 mg Q6H PRN Administration Pain, Mild (Pain Scale 1-3) Atorvastatin Calcium 40 mg 09/27/20 21:00 10/07/20 19:59 Atorvastatin Calcium 40 Mg Tablet PO 40 mg BEDTIME MILAGROS Administration Docusate Sodium 100 mg 09/26/20 23:54 Docusate Sodium 100 Mg Capsule PO DAILY PRN Constipation Enoxaparin Sodium 40 mg 10/02/20 22:00 10/07/20 21:59 Enoxaparin Sodium 40 Mg/0.4 Ml Syringe SUBCUT 40 mg Q24H MILAGROS Administration Folic Acid 1 mg 09/27/20 09:00 10/08/20 07:49 Folic Acid 1 Mg Tablet PO 1 mg DAILY MILAGROS Administration Lisinopril 40 mg 09/30/20 09:00 10/08/20 07:49 Lisinopril 40 Mg Tablet PO 40 mg DAILY MILAGROS Administration Protocol Medication 1 each 09/27/20 09:00 No Benzodiazepines MISCELLANE DAILY MILAGROS Melatonin 6 mg 09/27/20 21:00 10/07/20 20:00 Melatonin 3 Mg Tablet PO 6 mg BEDTIME MILAGROS Administration Metoprolol Succinate 25 mg 09/27/20 21:00 10/07/20 20:02 Metoprolol Succinate Er 25 Mg Tab.Er.24h PO 25 mg BEDTIME MILAGROS Administration Protocol Nicotine 14 mg 09/28/20 12:45 10/08/20 07:50 Nicotine 14 Mg Patch.Td24 TRANSDERMA 14 mg DAILY MILAGROS Administration Olanzapine 5 mg 10/04/20 21:00 10/08/20 07:49 Olanzapine 5 Mg Tablet PO 5 mg BID MILAGROS Administration Omeprazole 20 mg 09/27/20 06:30 10/08/20 06:16 Omeprazole 20 Mg Capsule.Dr PO 20 mg DAILY@0630 [facility] Administration Ondansetron HCl 4 mg 09/26/20 23:54 Ondansetron Hcl 4 Mg/2 Ml Vial IVPUSH Q8H PRN Nausea and Vomiting Pharmacy Consult 1 each 09/26/20 19:06 Consult Rx Perform Med Rec MISCELLANE ONCE PRN Consult order Phenytoin 100 mg 09/27/20 09:00 10/08/20 07:49 Phenytoin Chewable 50 Mg Tab.Chew PO 100 mg TID [facility] Administration Sodium Chloride 3 ml 09/27/20 00:00 10/08/20 07:49 0.9 % Sodium Chloride Flush 3 Ml Syringe IVFLUSH 3 ml QSHIFT [facility] Administration Tamsulosin HCl 0.4 mg 09/27/20 17:30 10/07/20 17:44 Tamsulosin Hcl 0.4 Mg Capsule PO 0.4 mg DAILY@1730 [facility] Administration Thiamine HCl 100 mg 10/05/20 09:00 10/08/20 07:49 Thiamine Hcl 100 Mg Tablet PO 100 mg DAILY [facility] Administration Tiotropium [place] 1 puff 09/27/20 08:00 10/08/20 07:41 Tiotropium [place] 18 Mcg Cap.W.Dev INHALE Not Given RDAILY [facility] Vitamin D 50 mcg 09/27/20 09:00 10/08/20 07:49 Cholecalciferol (Vitamin D3) 25 Mcg Tablet PO 50 mcg DAILY MILAGROS Administration Labs CBC & Chem 7: 10/05/20 06:14 10/05/20 06:14 Microbiology Microbiology Results: Microbiology 09/27/20 06:28 Blood - Venous Blood Culture - Final No growth after 5 days. 09/27/20 06:28 Blood - Venous Blood Culture - Final No growth after 5 days. 09/26/20 18:21 Blood - Venous Blood Culture - Final No growth after 5 days. 09/26/20 17:43 Urine clean catch - Clean Catch Midstream Urine Culture - Final 09/26/20 18:14 Blood - Venous Blood Culture - Final Bacillus species Assessment and Plan (1) Hyperammonemia: Status: Acute (2) Encephalopathy: Status: Acute (3) Altered mental status: Status: Acute (4) UTI (urinary tract infection): Status: Acute Assessment and Plan: 64yo M with hx EtOH abuse, ?cirrhosis, HCV [treated/cured], HTN presented to the hospital after being found unresponsitve by his neighbor admitted with encephalopathy + HTN urgency encephalopathy - treated hepatic component with rifaximin + lactulose. seems to have improved, doesnt look like patient actually has cirrhosis, does not appear to have an other squelae, us negative - treating possible component of Wernicke/Korskoff, thimaine was elevated, but i think drawn after being given iv, will also check b12 - Utox negative - also possibly had a seizure- pt was not taking phenytoin as prescribed - d/c'ed gabapentin likely in his chronic state now, has capacity to make decisions about proxy, but not for dispo planning did well without sitter >24hr while on zyprexa 5mg bid, plan for dc to sNF when available UTI completed 7 days ceftriaxone HTN urgency resolved with resumption of home meds [lisinopril, metoprolol succinate]; increase lisinopril + recheck BMP in a few days; historically noncompliant with medications hypoMg repleted hx cardiomyopathy not in decompensated HF. continue BRITNEY-I, B-david seizure hx continue phenytoin. clearly was not taking it [level undetectable] Tn-I elevation delta <50%, old T wave abnormality on EKG, not ACS alcohol dependence with withdrawl - phenobarbital taper copmleted - supplement thiamine + folate - counseling GERD - continue PPI VTE ppx - LMWH dispo will need placement
[2020-10-08] MEDS: Tamsulosin HCL 0.4 MG CAPSULE PO (17:16)
[2020-10-08] MEDS: Acetaminophen 325 MG TABLET 650 MG PO (17:43)
[2020-10-08] MEDS: Melatonin 3 MG TABLET 6 MG PO (19:54)
[2020-10-08] MEDS: Metoprolol Succinate ER 25 MG TAB.ER.24H PO (19:57)
[2020-10-08] MEDS: Atorvastatin Calcium 40 MG TABLET PO (19:57)
[2020-10-08] MEDS: Enoxaparin Sodium 40 MG/0.4 ML SYRINGE SUBCUT (21:00)
[2020-10-09] VITALS (8 sets, daily range): BP systolic 134–148; BP diastolic 59–83; PULSE 67–98; RESP 16–19; TEMP 35.9–37.1; O2SAT 97–99
[2020-10-09] MEDS: Omeprazole 20 MG CAPSULE.DR PO (05:45)
[2020-10-09] MEDS: Cholecalciferol (Vitamin D3) 25 MCG TABLET 50 MCG PO (08:03)
[2020-10-09] MEDS: Phenytoin Chewable 50 MG TAB.CHEW 100 MG PO ×3 (08:03→21:22)
[2020-10-09] MEDS: Folic Acid 1 MG TABLET PO (08:03)
[2020-10-09] MEDS: lisinopriL 40 MG TABLET PO (08:03)
[2020-10-09] MEDS: OLANZapine 5 MG TABLET PO ×2 (08:03→21:22)
[2020-10-09] MEDS: Thiamine HCL 100 MG TABLET PO (08:03)
[2020-10-09] MEDS: Nicotine 14 MG PATCH.TD24 TRANSDERMA (08:03)
--- NOTE | 2020-10-09 12:00 | MHC.CM.PN ---
CM RECIVED CALL FROM PT'S COUSIN/HCP REPORTING HE IS AT PT'S [employer] CLEANING AND THAT HE WILL NEED UNTIL TOMORROW MORNING TO GET READY FOR PT TO RETURN HOME. HOSPITALIST AWARE
--- NOTE | 2020-10-09 14:02 | HO.PM.IMPN ---
Subjective Subjective Date of Service: 10/09/20 Interval History: Seen and evaluated this morning Walking in the [place], comfortable denies any complaint of pain Still mildly confused but close to baseline No fever, chills or weakness No chest pain, palpitation No shortness of breath or coughing No abdominal pain, nausea or vomiting No urinary symptoms No any rash or wounds Physical Exam Vital Signs: Vital Signs: Last Vital Signs Temp 97.5 F 10/09/20 11:12 Pulse 71 10/09/20 11:12 Resp 16 10/09/20 11:12 BP 136/71 10/09/20 11:12 Pulse Ox 99 10/09/20 11:12 Body Mass Index 25.8 Const: Other: Constitutional : Alert, oriented, not in distress Neck : Normal inspection, Supple Cardiovascular : RRR, S1 S2, no lower extremity edema Respiratory : Good bilateral air entry, no crackles, wheezes or rhonchi Gastrointestinal: soft, lax, Normal bowel sounds, Non tender Skin : Warm/Dry, No rash Neurological : Alert & oriented x3, No focal deficit Objective Data Current Medications Generic Name Dose Route Start Last Admin Trade Name Freq PRN Reason Stop Dose Admin Acetaminophen 650 mg 09/26/20 23:54 10/08/20 17:43 Acetaminophen 325 Mg Tablet PO 650 mg Q6H PRN Administration Pain, Mild (Pain Scale 1-3) Atorvastatin Calcium 40 mg 09/27/20 21:00 10/08/20 19:57 Atorvastatin Calcium 40 Mg Tablet PO 40 mg BEDTIME MILAGROS Administration Docusate Sodium 100 mg 09/26/20 23:54 Docusate Sodium 100 Mg Capsule PO DAILY PRN Constipation Enoxaparin Sodium 40 mg 10/02/20 22:00 10/08/20 21:00 Enoxaparin Sodium 40 Mg/0.4 Ml Syringe SUBCUT 40 mg Q24H MILAGROS Administration Folic Acid 1 mg 09/27/20 09:00 10/09/20 08:03 Folic Acid 1 Mg Tablet PO 1 mg DAILY MILAGROS Administration Lisinopril 40 mg 09/30/20 09:00 10/09/20 08:03 Lisinopril 40 Mg Tablet PO 40 mg DAILY MILAGROS Administration Protocol Medication 1 each 09/27/20 09:00 No Benzodiazepines MISCELLANE DAILY MILAGROS Melatonin 6 mg 09/27/20 21:00 10/08/20 19:54 Melatonin 3 Mg Tablet PO 6 mg BEDTIME MILAGROS Administration Metoprolol Succinate 25 mg 09/27/20 21:00 10/08/20 19:57 Metoprolol Succinate Er 25 Mg Tab.Er.24h PO 25 mg BEDTIME MILAGROS Administration Protocol Nicotine 14 mg 09/28/20 12:45 10/09/20 08:03 Nicotine 14 Mg Patch.Td24 TRANSDERMA 14 mg DAILY MILAGROS Administration Olanzapine 5 mg 10/04/20 21:00 10/09/20 08:03 Olanzapine 5 Mg Tablet PO 5 mg BID MILAGROS Administration Omeprazole 20 mg 09/27/20 06:30 10/09/20 05:45 Omeprazole 20 Mg Capsule.Dr PO 20 mg DAILY@0630 [facility] Administration Ondansetron HCl 4 mg 09/26/20 23:54 Ondansetron Hcl 4 Mg/2 Ml Vial IVPUSH Q8H PRN Nausea and Vomiting Pharmacy Consult 1 each 09/26/20 19:06 Consult Rx Perform Med Rec MISCELLANE ONCE PRN Consult order Phenytoin 100 mg 09/27/20 09:00 10/09/20 08:03 Phenytoin Chewable 50 Mg Tab.Chew PO 100 mg TID [facility] Administration Sodium Chloride 3 ml 09/27/20 00:00 10/09/20 08:03 0.9 % Sodium Chloride Flush 3 Ml Syringe IVFLUSH Not Given QSHIFT [facility] Tamsulosin HCl 0.4 mg 09/27/20 17:30 10/08/20 17:16 Tamsulosin Hcl 0.4 Mg Capsule PO 0.4 mg DAILY@1730 [facility] Administration Thiamine HCl 100 mg 10/05/20 09:00 10/09/20 08:03 Thiamine Hcl 100 Mg Tablet PO 100 mg DAILY [facility] Administration Tiotropium [place] 1 puff 09/27/20 08:00 10/09/20 08:37 Tiotropium [place] 18 Mcg Cap.W.Dev INHALE 1 puff RDAILY [facility] Administration Vitamin D 50 mcg 09/27/20 09:00 10/09/20 08:03 Cholecalciferol (Vitamin D3) 25 Mcg Tablet PO 50 mcg DAILY [facility] Administration Labs CBC & Chem 7: 10/05/20 06:14 10/05/20 06:14 Microbiology Microbiology Results: Microbiology 09/27/20 06:28 Blood - Venous Blood Culture - Final No growth after 5 days. 09/27/20 06:28 Blood - Venous Blood Culture - Final No growth after 5 days. 09/26/20 18:21 Blood - Venous Blood Culture - Final No growth after 5 days. 09/26/20 17:43 Urine clean catch - Clean Catch Midstream Urine Culture - Final 09/26/20 18:14 Blood - Venous Blood Culture - Final Bacillus species Assessment and Plan (1) Hyperammonemia: Status: Acute (2) Encephalopathy: Status: Acute (3) Altered mental status: Status: Acute (4) UTI (urinary tract infection): Status: Acute Assessment and Plan: 64yo M with hx EtOH abuse, ?cirrhosis, HCV [treated/cured], HTN presented to the hospital after being found unresponsitve by his neighbor admitted with encephalopathy + HTN urgency Metabolic encephalopathy treated hepatic component with rifaximin + lactulose. improved treating possible component of Wernicke/Korskoff Continue thiamine and folic acid supplement also possibly had a seizure- pt was not taking phenytoin as prescribed d/c'ed gabapentin likely in his chronic state now, has capacity to make decisions about proxy did well without sitter >48hr while on zyprexa 5mg bid Plan to discharge home with family tomorrow UTI completed 7 days ceftriaxone HTN urgency resolved with resumption of home meds [lisinopril, metoprolol succinate]; increase lisinopril + recheck BMP in a few days; historically noncompliant with medications hypoMg repleted hx cardiomyopathy not in decompensated HF. continue BRITNEY-I, B-david seizure hx continue phenytoin. clearly was not taking it [level undetectable] Tn-I elevation delta <50%, old T wave abnormality on EKG, not ACS alcohol dependence with withdrawl phenobarbital taper copmleted GERD continue PPI VTE ppx LMWH
[2020-10-09] MEDS: Tamsulosin HCL 0.4 MG CAPSULE PO (17:41)
--- NOTE | 2020-10-09 18:03 | MHC.RECOVSUP ---
? Reason for consult Recovery Resources o Current location: [facility] o Identified substance use concern: Alcohol - Support ? Intervention: o Community resources provided o Harm reduction discussion ? Plan: o Patient to follow up with [facility] after discharge ? Additional information: Met with Patient and talk about Harm reduction and recovery.. patient was given [facility] information and we talk about What the center is about and what they do there.. Patient seem interested and said that he will pay the center a visit.. Patient was interested in a recovery room rn.
[2020-10-09] MEDS: Atorvastatin Calcium 40 MG TABLET PO (21:22)
[2020-10-09] MEDS: Melatonin 3 MG TABLET 6 MG PO (21:22)
[2020-10-09] MEDS: Enoxaparin Sodium 40 MG/0.4 ML SYRINGE SUBCUT (21:23)
[2020-10-09] MEDS: Metoprolol Succinate ER 25 MG TAB.ER.24H PO (21:23)
[2020-10-10 03:22] VITALS: RESP 16
[2020-10-10] MEDS: Omeprazole 20 MG CAPSULE.DR PO (06:38)
[2020-10-10 07:13] VITALS: BP 153/78; PULSE 66; RESP 18; TEMP 36.1; O2SAT 99
[2020-10-10 07:50] VITALS: BP 153/78; PULSE 66
[2020-10-10] MEDS: OLANZapine 5 MG TABLET PO (07:50)
[2020-10-10] MEDS: Phenytoin Chewable 50 MG TAB.CHEW 100 MG PO (07:50)
[2020-10-10] MEDS: lisinopriL 40 MG TABLET PO (07:50)
[2020-10-10] MEDS: Cholecalciferol (Vitamin D3) 25 MCG TABLET 50 MCG PO (07:50)
[2020-10-10] MEDS: Thiamine HCL 100 MG TABLET PO (07:50)
[2020-10-10] MEDS: Folic Acid 1 MG TABLET PO (07:51)
[2020-10-10] MEDS: Nicotine 14 MG PATCH.TD24 TRANSDERMA (07:51)
[2020-10-10 08:29] VITALS: PULSE 66; O2SAT 99
--- NOTE | 2020-10-10 09:54 | MHC.CM.PN ---
Addendum entered by Pham Marks 10/10/20 11:12: arrabged for patient and his cousin paulo to take the [facility] shuttle home to patients house instructed them to be downstairs in the lobby for 11;50 am abd they will transport them also again reviewed with staff nurse and hopsitalist that the d/csummary dneeds to be revised as pt is going home and not to a fpc facility, (pt will be going to his house and his cousin [email or web address] lives close by will be checking in on him serveral times daiy and calling him )he also is not eligeable to have vna in the homse secondary to having not been seen by his new pcp, instructed his cousin /hcp to call and make appointment and also steel pickler patients new prescriptions. hospitalsit cleared patient to go home with above information Original Note: [facility] resident care manager rn note patients cousin health care proxy wants to take him home. he will check on him several times a day and call him he will take him to medical appointments patient met with the [facility] assistant men's soccer coach and was given information about programs and commuiunity supports, he will be followed by assistant men's soccer coach case discussed withhospitlaist and staff nurse, patient is not eligeable for any vna services as he has not seen his new pcp as yet , instructed patients cousin/hcp yue to call for appointment to be seen 1 week discharge plan patient willbe transported home by his cousin yue (pateint is not eligeable for vna services , unitl he has been seen by his new pcp , this was informed to pats cousin /hcp yue patient met with assistant men's soccer coach last evening and will be followed by him pcp dr mendieta at the [facility]
[2020-10-10 11:35] VITALS: BP 135/82; PULSE 83; RESP 18; TEMP 36.7; O2SAT 91
--- NOTE | 2020-10-10 12:15 | PM.DS ---
DS: Providers Provider Date of Service: 10/10/20 Date of admission: 09/26/20 22:00 Primary care physician: Coreen Hernandez MD Consults: 09/27/20 08:10 Consult to Care Team Routine Comment: Reason for consultation: EtOH ?other substances 10/02/20 11:42 Consult to Psychiatry Routine Consulting Provider: Agustin Cabral Reason for consultation: ? capacity for health care proxy, decision to live alone DS: Diagnosis Discharge Diagnosis (1) Hyperammonemia: Status: Acute (2) Encephalopathy: Status: Acute (3) Altered mental status: Status: Acute (4) UTI (urinary tract infection): Status: Acute (5) B12 deficiency: Status: Acute (6) Elevated troponin: Status: Acute DS: Medications Discharge Medications Home Medications: Home Medications Medication Instructions Recorded Confirmed atorvastatin 40 mg tablet 40 mg PO BEDTIME 04/01/20 09/26/20 cholecalciferol (vitamin D3) 50 50 mcg PO QAM 04/01/20 09/26/20 mcg (2,000 unit) capsule gabapentin 600 mg tablet 600 mg PO TID 04/01/20 09/26/20 lisinopril 30 mg tablet 30 mg PO QAM 04/01/20 09/26/20 melatonin 5 mg tablet 5 mg PO BEDTIME 04/01/20 09/26/20 metoprolol succinate 25 mg 25 mg PO BEDTIME 04/01/20 09/26/20 tablet,extended release 24 hr phenytoin 50 mg chewable tablet 100 mg PO TID 04/01/20 09/26/20 tamsulosin 0.4 mg capsule 0.4 mg PO DAILY 04/01/20 09/26/20 Incruse Ellipta 1 puff INHALATION DAILY 09/26/20 09/26/20 Previous Rx's Medication Instructions Recorded pantoprazole 20 mg tablet,delayed 20 mg PO QAM #30 tab 07/24/20 release cyanocobalamin (vitamin B-12) 1,000 mcg PO DAILY #20 cap 10/08/20 folic acid 1 mg PO DAILY #30 tab 10/10/20 olanzapine 5 mg PO BID #60 tab 10/10/20 thiamine HCl (vitamin B1) 100 mg PO DAILY #30 tab 10/10/20 DS: Summary Hospital Course Hospital Course: Admission note HPI This is a 64-year-old male with past medical history of alcohol abuse liver cirrhosis, hepatitis-C, hypertension, seizures, cardiomyopathy who presents to the hospital after neighbor found patient unresponsive. Patient is very confused, not oriented to place or time, unaware of why he is in the hospital. It appears the patient was seen unresponsive on bowel kidney by his neighbor, EMS arrived on scene found patient to be hypoxic in the 80s on room air. Had a respiratory rate of 12. Per report patient was given 0.4 mg of IV Narcan and patient apparently became more responsive. He himself denies any headache, change in vision, no chest pain, no abdominal pain, no nausea or vomiting, no diarrhea constipation, no urinary symptoms and no lower extremity edema. On arrival to the ED patient vital significant for temp of 97.6, heart rate of 88, respiratory rate of 16, blood pressure of 224/107, satting 94% on room air. Labs are significant for WBC count of 7.8, hemoglobin of 15.2, magnesium level of 1.2, total bili of 1.7, ammonia of 56, troponin of 58.8 with a repeat showing 66.4, UA that is positive for nitrites, leukocyte Estrace, WBC, UDS negative. Chest x-ray shows cardiomegaly with no other acute pulmonary process. Head CT shows no acute intracranial process. Chronic bilateral maxillary sinus inflammatory changes Hospital course patient was admitted for unresponsivess - metabolic encephalopathy likely due to seizure due to non complaince and ETOH dependence. Patient was initially treated empirically for hepatic encephalopathy with rifaximin and lactulose, but not appear to have cirrhosis or significant liver disease, he does have some alcoholic fatty liver, patient was also noted to have B12 deficiency, he was given 1000 mcg IM and will continue on 1000mcg po daily. phenytoin was resumed . he was treated for aclohol withdrawl with phenobarbital and symptoms resolved. 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 Plan was to discharge to SNF but his family relative and HCP decided the came back to his home and take care of him. . Time Spent with Patient Time attestation: Total time spent providing and/or coordinating discharge services: Discharge coordination time: Greater than 30 minutes Quality: Stroke Does the patient have a stroke diagnosis?: No Physical Exam Vital Signs: Vital Signs: Last Vital Signs Temp 98.1 F 10/10/20 11:35 Pulse 83 10/10/20 11:35 Resp 18 10/10/20 11:35 BP 135/82 10/10/20 11:35 Pulse Ox 91 L 10/10/20 11:35 Body Mass Index 25.8 Const: Other: Constitutional : Alert, oriented, not in distress Neck : Normal inspection, Supple Cardiovascular : RRR, S1 S2, no lower extremity edema Respiratory : Good bilateral air entry, no crackles, wheezes or rhonchi Gastrointestinal: soft, lax, Normal bowel sounds, Non tender Skin : Warm/Dry, No rash Neurological : Alert & oriented x3, No focal deficit DS: Data Imaging Chest x-ray: Radiologist's impression: ITS Impressions Cervical Spine CT 09/26/20 12:30 IMPRESSION: No acute intracranial process seen. Chronic bilateral maxillary sinus inflammatory changes. There is no acute fracture or dislocation in cervical spine. There are degenerative disc changes as described above. There is a right apical bullous change. Chest X-Ray 09/26/20 12:30 IMPRESSION: No acute intracranial process seen. Chronic bilateral maxillary sinus inflammatory changes. There is no acute fracture or dislocation in cervical spine. There are degenerative disc changes as described above. There is a right apical bullous change. Head CT 09/26/20 12:30 IMPRESSION: No acute intracranial process seen. Chronic bilateral maxillary sinus inflammatory changes. There is no acute fracture or dislocation in cervical spine. There are degenerative disc changes as described above. There is a right apical bullous change. Abdomen Ultrasound 09/30/20 17:40 IMPRESSION: Cholelithiasis without wall thickening. Visualized liver, right kidney and the pancreas appears unremarkable. CT head/neck: Radiologist's impression: ITS Impressions Cervical Spine CT 09/26/20 12:30 IMPRESSION: No acute intracranial process seen. Chronic bilateral maxillary sinus inflammatory changes. There is no acute fracture or dislocation in cervical spine. There are degenerative disc changes as described above. There is a right apical bullous change. Chest X-Ray 09/26/20 12:30 IMPRESSION: No acute intracranial process seen. Chronic bilateral maxillary sinus inflammatory changes. There is no acute fracture or dislocation in cervical spine. There are degenerative disc changes as described above. There is a right apical bullous change. Head CT 09/26/20 12:30 IMPRESSION: No acute intracranial process seen. Chronic bilateral maxillary sinus inflammatory changes. There is no acute fracture or dislocation in cervical spine. There are degenerative disc changes as described above. There is a right apical bullous change. Abdomen Ultrasound 09/30/20 17:40 IMPRESSION: Cholelithiasis without wall thickening. Visualized liver, right kidney and the pancreas appears unremarkable. Discharge Plan Discharge Patient Disposition: Home, Self-Care Discharge Diagnosis: encephalopathy Referrals: Coreen Hernandez MD [Primary Care Provider] - 1 Week (PCP COREEN NICHOLAS PLEASE CALL FOR APPOINTMENT TO BE SEEN SOON POSSIBLE AT THE ABOVE NUMBER) Discharge Medications: New cyanocobalamin (vitamin B-12) 1,000 mcg capsule 1,000 mcg PO DAILY Qty: 20 RF: 0 olanzapine 5 mg tablet 5 mg PO BID Qty: 60 RF: 1 folic acid 1 mg tablet 1 mg PO DAILY Qty: 30 RF: 1 thiamine HCl (vitamin B1) 100 mg tablet 100 mg PO DAILY Qty: 30 RF: 1 Continued pantoprazole 20 mg tablet,delayed release (DR/EC) 20 mg PO QAM Qty: 30 RF: 2 Incruse Ellipta 62.5 mcg/actuation blister with device 1 puff inhalation DAILY RF: 0 lisinopril 30 mg tablet 30 mg PO QAM RF: 0 metoprolol succinate 25 mg tablet extended release 24 hr 25 mg PO BEDTIME RF: 0 atorvastatin 40 mg tablet 40 mg PO BEDTIME RF: 0 gabapentin 600 mg tablet 600 mg PO TID RF: 0 tamsulosin 0.4 mg capsule 0.4 mg PO DAILY RF: 0 melatonin 5 mg tablet 5 mg PO BEDTIME RF: 0 cholecalciferol (vitamin D3) 50 mcg (2,000 unit) capsule 50 mcg PO QAM RF: 0 phenytoin 50 mg tablet,chewable 100 mg PO TID RF: 0 Discharge Orders: Discharge Order (Routine); Ordered 10/10/20 Ordered By: Oscar Jones Diet: advance to usual diet Activity on Discharge: As tolerated Stand Alone Forms: Patient Portal Discharge page Care Plan Goals: recovery Health Concerns: seizure, dementia, b12 deficiency Plan of Treatment: Used your medications as prescribed b12 supplement Assessment: see above Discharge Date/Time: 10/10/20 11:35
== END 2020-10-10 11:35 | disposition home or self-care (01) | DRG 101 ==
LOC: HO.ED 20:25 → HO.EDOVER 22:09 → HO.S3 22:11
PROVIDERS: Family Medicine; Internal Medicine; Nurse Practitioner Family; Admitting Provider Internal Medicine; Emergency Provider Emergency Medicine Emergency Medical Services; PCP Internal Medicine; Visit Provider Student in an Organized Health Care Education/Training Program
DX: G40.909 Epilepsy, unspecified, not intractable, without status epilepticus (principal); N39.0 Urinary tract infection, site not specified; F10.239 Alcohol dependence with withdrawal, unspecified; I42.9 Cardiomyopathy, unspecified; F10.27 Alcohol dependence with alcohol-induced persisting dementia; K21.9 Gastro-esophageal reflux disease without esophagitis; Y92.008 Other place in unspecified non-institutional (private) residence as the place of occurrence of the external cause; E83.42 Hypomagnesemia; E53.8 Deficiency of other specified B group vitamins; I16.0 Hypertensive urgency; I10 Essential (primary) hypertension; K76.0 Fatty (change of) liver, not elsewhere classified; Z20.822 Contact with and (suspected) exposure to COVID-19; Z91.14 Patient's other noncompliance with medication regimen; Z79.899 Other long term (current) drug therapy
CPT/HCPCS: 36415; 70450; 71046; 72125; 76705; 80048; 80053; 80076; 80185; 80307; 80320; 80364; 80365; 81001; 81003; 82140; 82607; 82746; 83605; 83735; 84425; 84484; 85025; 85027; 85610; 87040; 87086; 87205; 87635; 93005; 94640; 97110; 97116; 97162; 99285; J0696; J1650; J2560; J3411; J3475; Q0163

== ENCOUNTER 2020-11-22 13:13 | Emergency (ER) | payer MEDICARE, MEDICAID, SELFPAY ==
--- NOTE | ~2020-11-22 | XR_ITS ---
EXAMINATION: XR CHEST CLINICAL INFORMATION: Lung crackles COMPARISON: Previous chest x-ray September 2020 TECHNIQUE: 2 views of the chest were obtained. FINDINGS: The cardiac silhouette is enlarged. There is pulmonary venous redistribution, increased perihilar markings and small right pleural effusion. Findings are suggestive of mild CHF. There are degenerative changes of the spine. There are old right rib fractures. There are soft tissue foreign bodies in the right chest wall and over the left distal clavicle or XR/XR chest 2V IMPRESSION: Mild CHF.
[2020-11-22 13:31] VITALS: BP 170/90; BP 177/99; PULSE 70; PULSE 86; RESP 16; TEMP 36.7; O2SAT 100; O2SAT 98; BMI 29.4
--- NOTE | 2020-11-22 13:31 | ECG_ITS ---
Test Reason : GENERAL MEDICAL Blood Pressure : / mmHG Vent. Rate : 068 BPM Atrial Rate : 068 BPM P-R Int : 146 ms QRS Dur : 102 ms QT Int : 462 ms P-R-T Axes : 057 072 081 degrees QTc Int : 491 ms Sinus rhythm with Premature supraventricular complexes and with occasional Premature ventricular complexes Voltage criteria for left ventricular hypertrophy Nonspecific T wave abnormality Prolonged QT Abnormal ECG When compared with ECG of 26-SEP-2020 13:57, Premature ventricular complexes are now Present Premature supraventricular complexes are now Present Referred By: Kathie Byrne Electronically Signed By:Remberto Ventura
--- NOTE | 2020-11-22 13:55 | ED_ITS ---
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 Patient with family at bedside denies any symptoms at this time which include dizziness, headaches, chills, fevers, change of vision, nausea/vomiting, chest pain, shortness of breath, cough, palpitations, dyspnea on exertion, orthopnea, abdominal pain, back pain, lower extremity edema, calf tenderness, diarrhea, constipation, dysuria, hematuria or any other symptoms complaints or concerns at this time. Patient reports he wants to go home because he feels completely fine. Related Data Home Medications Medication Instructions Recorded Confirmed atorvastatin 40 mg tablet 40 mg PO BEDTIME 04/01/20 09/26/20 cholecalciferol (vitamin D3) 50 50 mcg PO QAM 04/01/20 09/26/20 mcg (2,000 unit) capsule gabapentin 600 mg tablet 600 mg PO TID 04/01/20 09/26/20 lisinopril 30 mg tablet 30 mg PO QAM 04/01/20 09/26/20 melatonin 5 mg tablet 5 mg PO BEDTIME 04/01/20 09/26/20 metoprolol succinate 25 mg 25 mg PO BEDTIME 04/01/20 09/26/20 tablet,extended release 24 hr phenytoin 50 mg chewable tablet 100 mg PO TID 04/01/20 09/26/20 tamsulosin 0.4 mg capsule 0.4 mg PO DAILY 04/01/20 09/26/20 Incruse Ellipta 1 puff INHALATION DAILY 09/26/20 09/26/20 Previous Rx's Medication Instructions Recorded cyanocobalamin (vitamin B-12) 1,000 mcg PO DAILY #20 cap 10/08/20 folic acid 1 mg PO DAILY #30 tab 10/10/20 olanzapine 5 mg PO BID #60 tab 10/10/20 thiamine HCl (vitamin B1) 100 mg PO DAILY #30 tab 10/10/20 pantoprazole 20 mg tablet,delayed 20 mg PO QAM #30 tab 11/20/20 release furosemide [Lasix] 20 mg PO DAILY 7 Days #7 tab 11/22/20 Allergies Allergy/AdvReac Type Severity Reaction Status Date / Time No Known Allergies Allergy Verified 07/22/20 09:27 [No Known Allergies*] Review of Systems Review of Systems: Constitutional : No Weight loss, No Fever, No Chills, No N ight Sweats, No Fatigue, No Malaise ENT/Mouth : No Hearing loss, No Ear Pain, No Nasal Congestion, No Sinus Pain, No Hoarseness, No sore throat, No Rhinorrhea, No Swallowing Difficulty Eyes: No Eye Pain, No Swelling, No Redness, No Foreign Body, No Discharge, No Vision Changes Cardiovascular : No Chest Pain, No SOB, No Dyspnea on Exertion, No Orthopnea, No Edema, No Palpitations Respiratory : No Cough, No Sputum, No Wheezing, No Smoke Exposure, No Dyspnea Gastrointestinal : No Nausea, No Vomiting, No Diarrhea, No Constipation, No abdominal Pain, No Hematochezia, No Melena Genitourinary : no irregular bleeding, No Dysuria, No Urinary Frequency, No Hematuria, No Urinary Incontinence, No Urgency, No Flank Pain, No Urinary Flow Changes, No Hesitancy Musculoskeletal : No joint pain, No Myalgias, No Joint Swelling Skin : No Skin Lesions, No rash Neuro : No Weakness, No Numbness, No Paresthesias, No Loss of Consciousness, No Dizziness, No Headache Psych : No Anxiety/Panic, No Depression, No SI/HI/AH/VH, No Social Issues, Heme/Lymph: No Bruising, No Bleeding,No Lymphadenopathy Endocrine : No Polyuria, No Polydipsia, No Temperature Intolerance Yes all ot her systems are reviewed and are negative PMFSH Past Medical History Attestation statement: The following information was validated with the patient. Medical History Alcohol abuse Cardiomyopathy Cirrhosis, alcoholic GERD (gastroesophageal reflux disease) Hepatitis C antibody positive in blood Hypertension Seizure Family History Family History Father No problems noted. Mother No problems noted. Brother Cancer Sister No problems noted. Social History Social History Household Members: Unknown / Unable to assess Housing: Unknown / Unable to assess Unable to assess alcohol history related to: Unable to respond and Unknown Alcohol intake: never Substance Use Type: Unknown Advance Directives: No Advance Directives Information Provided: Yes service: No Current occupational status: disabled Physical Exam Vital Signs: Vital Signs: Last Vital Signs Temp 98.0 F 11/22/20 13:31 Pulse 71 11/22/20 14:15 Resp 16 11/22/20 13:31 BP 177/99 H 11/22/20 13:31 Pulse Ox 98 11/22/20 13:31 Body Mass Index 29.4 vital signs have been reviewed as normal and appeared to be correct. Blood pressure hypertensive 177/99. Heart rate normal. Respiration rate normal. Temperature normal. Oxygen saturation normal. Appearance: Alert. Oriented X3. No acute distress. Head: Normal external exam. Normocephalic. Atraumatic. No Austin signs noted. No raccoon eyes noted Eyes: PERRLA. EOMI. Conjunctiva and sclera normal. Eyelids normal. ENT: EAC normal. TM's Normal. Pharynx normal. Uvula midline. Moist mucous membranes. No trismus noted. No drooling noted. No muffled voice noted. Neck: Normal inspection. Neck supple. FROM. No adenopathy. Thyroid Normal. No meningeal signs. No neck mass noted. CVS: Normal heart rate and rhythm. Heart sound normal. Pulses normal throughout. No murmurs/rales/gallops. Respiratory: No respiratory distress. Painless inspiration. Breath sounds normal. Mild expiratory wheezing throughout otherwise no rales/rhonchi noted. Chest nontender. No accessory muscle usage noted or decreased air movement noted. Abdomen: Soft and nontender. Bowel sounds normal in all 4 quadrants. No distention noted. No organomegaly noted. No visible injury noted. Back: No CVA tenderness. Full range of motion noted. No rashes/lesion/induration/fluctuance or signs of infection noted. Skin: Skin warm and dry. Normal skin color. Normal skin turgor. No rashes/lesi ons/lacerations noted. Extremities: No lower extremity edema. Extremities exhibit normal range of motion. Extremities nontender. Neuro: Oriented X 3. No motor deficit. No sensory deficit. Reflexes normal. Normal steady gait. No focal neuro deficits noted. Vascular: + radial pulses/+ 2 distal pedal pulses/+2 dorsalis pedis b/l. Normal cap refill. No cyanosis noted to upper extremity nails and lower extremity toes nails. Course Course Course Narrative: 13:30pm - 39-[id number]-male with a PMHx of of dementia, encephalopathy, alcohol abuse, alcoholic liver cirrhosis, hepatitis-C, GERD, hypertension and seizure disorder presenting to the ED after he was sent by his visiting nurse after she told him and his family that she noted bilateral crackles to lower lung bases. Patient with family at bedside denies any symptoms at this time. On exam patient is alert oriented x3. Not in any acute distress. On lung exam patient has mild expiratory wheezing throughout otherwise no rales or rhonchi noted. CV RRR. No lower extremity pitting edema noted. No calf tenderness is noted. Plan: Labs, CXR, EKG and re-evaluate. Reevaluation(s) Reevaluation #1: - return and patient mild anemia. BNP 158. Otherwise all other labs are within normal limits. UA within normal limits no evidence of UTI. Patient negative for COVID. Negative for EtOH. Chest x-ray revealed mild CHF. EKG was similar when compared to prior no acute ischemic changes noted. - therefore will DC home with 7 days of 20 mg of Lasix daily for mild CHF instructions to follow-up in a week with his PCP to recheck blood work. Patient and family at bedside understand agree with plan. Time: 15:20 Medical Decision Making Medical Records Medical records reviewed: Yes I reviewed the patient's medical records. Lab Data Lab results reviewed: Yes I reviewed the patient's lab results. Result diagrams: 11/22/20 14:18 11/22/20 14:18 Labs: Lab Results 11/22/20 11/22/20 11/22/20 Range/Units 14:05 14:05 14:18 WBC 7.6 (4.8-10.8) X10*3/uL RBC 3.93 L (4.60-5.80) X10*6/uL Hgb 12.6 L (14.0-18.0) g/dl Hct 38.3 L (42-52) % MCV 97.5 (80-98) fL MCH 32.1 (27.0-33.0) pg MCHC 32.9 (31.0-36.0) g/dl RDW 12.3 (11.0-16.0) % Plt Count 230 (160-400) X10*3/uL MPV 8.9 L (9.4-12.4) fL Immature Gran % (Auto) 0.1 (0.0-0.4) % Neut % (Auto) 39.0 L (45-73) % Lymph % (Auto) 45.2 H (20-40) % [place] % (Auto) 10.4 (2-11) % Eos % (Auto) 4.9 H (0-4) % Baso % (Auto) 0.4 (0-2) % Lymph # (Auto) 3.4 (1.2-4.9) X10*3/uL [place] # (Auto) 0.8 (0.1-1.2) X10*3/uL Eos # (Auto) 0.4 (0.0-0.4) X10*3/uL Baso # (Auto) 0.0 (0.0-0.2) X10*3/uL Abs Immat Gran (auto) 0.01 (0.00-0.03) X10*3/uL Absolute Neuts (auto) 2.9 (2.0-8.3) X10*3/uL Absolute Nucleated RBC 0.000 (0.0-0.012) X10*3/uL Nucleated RBC % (auto) 0.0 (0.0-0.2) /100WBC PT (9.9-13.0) SEC INR (0.9-1.1) Sodium (135-145) mmol/L Potassium (3.3-5.1) mmol/L Chloride (96-108) mmol/L Carbon Dioxide (22-29) mmol/L Anion Gap (12-20) BUN (9-16) mg/dL Creatinine (0.5-1.4) mg/dL Estim Creat Clear Calc Estimated GFR Random Glucose (60-115) mg/dL Calcium (8.4-10.2) mg/dL Magnesium (1.6-2.6) mg/dL Total Bilirubin (0.0-1.0) mg/dL AST (5-37) U/L ALT (0-40) U/L Alkaline Phosphatase (39-117) U/L B-Natriuretic Peptide (<100) pg/mL Total Protein (6.5-8.0) g/dL Albumin (3.5-5.0) g/dL Urine Color YELLOW Urine Appearance CLEAR Urine pH 6.0 (5.0-8.0) Ur Specific [place] <= 1.005 (1.005-1.025) Urine Protein NEG (NEG-TRACE) MG/DL Urine Glucose (UA) NEG (NEG) MG/DL Urine Ketones NEG (NEG) MG/DL Urine Blood NEG (NEG) Urine Nitrite NEG (NEG) Ur Leukocyte Esterase NEG (NEG) Ethyl Alcohol mg/dL COVID-19 (KATELYNN) Negative (Negative) COVID-19 Clin Com See Note 11/22/20 11/22/20 11/22/20 Range/Units 14:18 14:18 14:18 WBC (4.8-10.8) X10*3/uL RBC (4.60-5.80) X10*6/uL Hgb (14.0-18.0) g/dl Hct (42-52) % MCV (80-98) fL MCH (27.0-33.0) pg MCHC (31.0-36.0) g/dl RDW (11.0-16.0) % Plt Count (160-400) X10*3/uL MPV (9.4-12.4) fL Immature Gran % (Auto) (0.0-0.4) % Neut % (Auto) (45-73) % Lymph % (Auto) (20-40) % [place] % (Auto) (2-11) % Eos % (Auto) (0-4) % Baso % (Auto) (0-2) % Lymph # (Auto) (1.2-4.9) X10*3/uL [place] # (Auto) (0.1-1.2) X10*3/uL Eos # (Auto) (0.0-0.4) X10*3/uL Baso # (Auto) (0.0-0.2) X10*3/uL Abs Immat Gran (auto) (0.00-0.03) X10*3/uL Absolute Neuts (auto) (2.0-8.3) X10*3/uL Absolute Nucleated RBC (0.0-0.012) X10*3/uL Nucleated RBC % (auto) (0.0-0.2) /100WBC PT 11.6 (9.9-13.0) SEC INR 1.0 (0.9-1.1) Sodium 143 (135-145) mmol/L Potassium 4.2 (3.3-5.1) mmol/L Chloride 107 (96-108) mmol/L Carbon Dioxide 30 H (22-29) mmol/L Anion Gap 10 L (12-20) BUN 10 (9-16) mg/dL Creatinine 0.88 (0.5-1.4) mg/dL Estim Creat Clear Calc 83.3 Estimated GFR > 60 Random Glucose 86 (60-115) mg/dL Calcium 9.4 (8.4-10.2) mg/dL Magnesium 1.7 (1.6-2.6) mg/dL Total Bilirubin 0.5 (0.0-1.0) mg/dL AST 17 D (5-37) U/L ALT 11 (0-40) U/L Alkaline Phosphatase 73 (39-117) U/L B-Natriuretic Peptide 158 H (<100) pg/mL Total Protein 7.0 D (6.5-8.0) g/dL Albumin 3.7 D (3.5-5.0) g/dL Urine Color Urine Appearance Urine pH (5.0-8.0) Ur Specific [place] (1.005-1.025) Urine Protein (NEG-TRACE) MG/DL Urine Glucose (UA) (NEG) MG/DL Urine Ketones (NEG) MG/DL Urine Blood (NEG) Urine Nitrite (NEG) Ur Leukocyte Esterase (NEG) Ethyl Alcohol mg/dL COVID-19 (KATELYNN) (Negative) COVID-19 Clin Com 11/22/20 Range/Units 14:18 WBC (4.8-10.8) X10*3/uL RBC (4.60-5.80) X10*6/uL Hgb (14.0-18.0) g/dl Hct (42-52) % MCV (80-98) fL MCH (27.0-33.0) pg MCHC (31.0-36.0) g/dl RDW (11.0-16.0) % Plt Count (160-400) X10*3/uL MPV (9.4-12.4) fL Immature Gran % (Auto) (0.0-0.4) % Neut % (Auto) (45-73) % Lymph % (Auto) (20-40) % [place] % (Auto) (2-11) % Eos % (Auto) (0-4) % Baso % (Auto) (0-2) % Lymph # (Auto) (1.2-4.9) X10*3/uL [place] # (Auto) (0.1-1.2) X10*3/uL Eos # (Auto) (0.0-0.4) X10*3/uL Baso # (Auto) (0.0-0.2) X10*3/uL Abs Immat Gran (auto) (0.00-0.03) X10*3/uL Absolute Neuts (auto) (2.0-8.3) X10*3/uL Absolute Nucleated RBC (0.0-0.012) X10*3/uL Nucleated RBC % (auto) (0.0-0.2) /100WBC PT (9.9-13.0) SEC INR (0.9-1.1) Sodium (135-145) mmol/L Potassium (3.3-5.1) mmol/L Chloride (96-108) mmol/L Carbon Dioxide (22-29) mmol/L Anion Gap (12-20) BUN (9-16) mg/dL Creatinine (0.5-1.4) mg/dL Estim Creat Clear Calc Estimated GFR Random Glucose (60-115) mg/dL Calcium (8.4-10.2) mg/dL Magnesium (1.6-2.6) mg/dL Total Bilirubin (0.0-1.0) mg/dL AST (5-37) U/L ALT (0-40) U/L Alkaline Phosphatase (39-117) U/L B-Natriuretic Peptide (<100) pg/mL Total Protein (6.5-8.0) g/dL Albumin (3.5-5.0) g/dL Urine Color Urine Appearance Urine pH (5.0-8.0) Ur Specific [place] (1.005-1.025) Urine Protein (NEG-TRACE) MG/DL Urine Glucose (UA) (NEG) MG/DL Urine Ketones (NEG) MG/DL Urine Blood (NEG) Urine Nitrite (NEG) Ur Leukocyte Esterase (NEG) Ethyl Alcohol < 10 mg/dL COVID-19 (KATELYNN) (Negative) COVID-19 Clin Com ECG Data Attestation: I personally reviewed and interpreted this ECG as follows: Interpretation: Sinus rhythm with premature supraventricular complexes with occasional PVCs with ventricular rate of 68 with left ventricular hypertrophy nonspecific T-wave abnormalities mildly prolonged QT at 462 milliseconds although no acute ischemic changes are noted and similar when compared to prior EKG 09/26/2020. Critical Care Time Critical Care Time Critical Care Time: Yes Total Critical Care Time: 60 Attestation: I personally attest to this time spent taking care of the patient Discharge Plan Discharge Clinical Impression: Mild congestive heart failure Patient Disposition: Home, Self-Care Instructions: Heart Failure (ED) Prescriptions: New furosemide [Lasix] 20 mg tablet 20 mg PO DAILY 7 Days Qty: 7 RF: 0 No Action pantoprazole 20 mg tablet,delayed release (DR/EC) 20 mg PO QAM Qty: 30 RF: 2 Incruse Ellipta 62.5 mcg/actuation blister with device 1 puff inhalation DAILY RF: 0 cyanocobalamin (vitamin B-12) 1,000 mcg capsule 1,000 mcg PO DAILY Qty: 20 RF: 0 olanzapine 5 mg tablet 5 mg PO BID Qty: 60 RF: 1 folic acid 1 mg tablet 1 mg PO DAILY Qty: 30 RF: 1 thiamine HCl (vitamin B1) 100 mg tablet 100 mg PO DAILY Qty: 30 RF: 1 lisinopril 30 mg tablet 30 mg PO QAM RF: 0 metoprolol succinate 25 mg tablet extended release 24 hr 25 mg PO BEDTIME RF: 0 atorvastatin 40 mg tablet 40 mg PO BEDTIME RF: 0 gabapentin 600 mg tablet 600 mg PO TID RF: 0 tamsulosin 0.4 mg capsule 0.4 mg PO DAILY RF: 0 melatonin 5 mg tablet 5 mg PO BEDTIME RF: 0 cholecalciferol (vitamin D3) 50 mcg (2,000 unit) capsule 50 mcg PO QAM RF: 0 phenytoin 50 mg tablet,chewable 100 mg PO TID RF: 0 Referrals: Lori Hernandez MD [Primary Care Provider] - 1 week (For recheck a BNP for congestive heart failure) Print Language: [place]
[2020-11-22 14:12] LABS: Glucose Urine UA NEG (NEG); Leukocyte Esterase Urine NEG (NEG); Nitrite Urine NEG (NEG); Specific Gravity - Urine <= 1.005 (1.005-1.025); Urine Blood NEG (NEG); Urine Ketones NEG (NEG); Urine Protein NEG (NEG-TRACE)
[2020-11-22] MEDS: Albuterol Sulfate (0.083%) 2.5 MG/3 ML VIAL.NEB 5 MG INHALE (14:12)
[2020-11-22 14:13] LABS: Appearance Urine CLEAR; Color Urine YELLOW
[2020-11-22 14:15] VITALS: PULSE 71; O2SAT 97
[2020-11-22 14:23] LABS: MANUAL DIFF FLAG NO
[2020-11-22 14:25] LABS: Basophils Percent Auto 0.4 % (0-2); Eosinophils Absolute Auto 0.4 X10*3/uL (0.0-0.4); Eosinophils Percent Auto 4.9 % (0-4); Hematocrit 38.3 % (42-52); Hemoglobin 12.6 g/dl (14.0-18.0); Imm Gran Abs Auto 0.01 X10*3/uL (0.00-0.03); Imm Gran Pct Auto 0.1 % (0.0-0.4); Lymphocytes Absolute Auto 3.4 X10*3/uL (1.2-4.9); Lymphocytes Percent Auto 45.2 % (20-40); Mean Corpuscular HGB Conc 32.9 g/dl (31.0-36.0); Mean Corpuscular Hemoglobin 32.1 pg (27.0-33.0); Mean Corpuscular Volume 97.5 fL (80-98); Mean Platelet Volume 8.9 fL (9.4-12.4); Monocytes Absolute Auto 0.8 X10*3/uL (0.1-1.2); Monocytes Percent Auto 10.4 % (2-11); Neutrophils Absolute Auto 2.9 X10*3/uL (2.0-8.3); Platelet Count 230 X10*3/uL (160-400); Red Blood Count 3.93 X10*6/uL (4.60-5.80); Red Cell Distribution Width 12.3 % (11.0-16.0); White Blood Count 7.6 X10*3/uL (4.8-10.8)
[2020-11-22 14:36] LABS: COVID-19 Test Negative (Negative); IDNOW Serial# 08D9AD1C
[2020-11-22 14:44] LABS: Prothrombin Time 11.6 SEC (9.9-13.0)
[2020-11-22 14:49] LABS: Ethanol < 10 mg/dL
[2020-11-22 14:53] LABS: Alanine Aminotransferase 11 U/L (0-40); Albumin Level 3.7 g/dL (3.5-5.0); Alkaline Phosphatase 73 U/L (39-117); Anion Gap 10 (12-20); Aspartate Amino Transferase 17 U/L (5-37); Bilirubin Total 0.5 mg/dL (0.0-1.0); Blood Urea Nitrogen 10 mg/dL (9-16); Calcium 9.4 mg/dL (8.4-10.2); Carbon Dioxide 30 mmol/L (22-29); Chloride 107 mmol/L (96-108); Creatinine Clr Calc Pharmacy 83.3; Estimated Glomerular Filt Rate > 60; Glucose Random 86 mg/dL (60-115); Magnesium 1.7 mg/dL (1.6-2.6); Potassium 4.2 mmol/L (3.3-5.1); Sodium 143 mmol/L (135-145)
[2020-11-22 14:59] LABS: B Type Natriuretic Peptide 158 pg/mL (<100)
[2020-11-22] MEDS: Furosemide 20 MG TABLET PO (15:32)
== END 2020-11-22 15:39 | disposition home or self-care (01) ==
PROVIDERS: Physician Assistant Medical; Emergency Provider Emergency Medicine; PCP Internal Medicine
DX: I11.0 Hypertensive heart disease with heart failure (principal); I50.9 Heart failure, unspecified; F03.90 Unspecified dementia, unspecified severity, without behavioral disturbance, psychotic disturbance, mood disturbance, and anxiety; G40.909 Epilepsy, unspecified, not intractable, without status epilepticus; D64.9 Anemia, unspecified; Z79.899 Other long term (current) drug therapy; Z20.822 Contact with and (suspected) exposure to COVID-19
CPT/HCPCS: 36415; 71046; 80053; 81003; 82077; 83735; 83880; 85025; 85610; 87635; 93005; 94640; 99283; 99285

== ENCOUNTER → 2020-12-23 09:41 | Outpatient (REF) | payer MEDICARE, MEDICAID, SELFPAY ==
--- NOTE | 2020-12-23 10:30 | CA_ITS ---
Transthoracic Echocardiogram Patient (Last, First, Middle): Lloyd Molina, Gender: Male Date of : 1955 Age: 65 Procedure Date: 12/23/2020 Procedure Type: Transthoracic Echocardiogram Location: OP Height: 167.64 cm Weight: 84.37 kg BSA: 1.94 m2 Heart Rate: bpm BP: 130 / 90 mmHg [employer]: [place] Referring MD: Lori Hernandez MD Symptoms: CMP I42.9 R74.8 ABNORMAL SERUM ENZYME LEVELS Study Quality: Fair ECG Rhythm: Atrial Fibrillation Conclusions: - The left ventricular systolic function is mildly decreased. The calculated ejection fraction is 42% by biplane method. - The basal inferior and basal inferolateral segments are akinetic. There is moderate global hypokinesis. - The posterior mitral leaflet has restricted mobility. Findings Left Ventricle Normal left ventricular cavity size. There is mildly increased left ventricular wall thickness. The left ventricular systolic function is mildly decreased. The calculated ejection fraction is 42% by biplane method. There is moderate global hypokinesis. E/E prime ratio is between 8 and 15 consistent with indeterminate filling pressures. Evidence suggests grade I (mild) diastolic dysfunction. Wall Motion Rest Echo Findings The basal inferior and basal inferolateral segments are akinetic. Right Ventricle Normal right ventricular cavity size and systolic function. Atria Both atria are normal in size. Aortic Valve There is a normal trileaflet aortic valve. There is no aortic valve stenosis. There is no aortic valve regurgitation. Mitral Valve There is mild anterior mitral leaflet thickening. The posterior mitral leaflet has restricted mobility. There is trace mitral valve regurgitation. There is no mitral valve stenosis. Pulmonic Valve The pulmonic valve was not well visualized. There is trace pulmonic valve regurgitation. Tricuspid Valve Normal tricuspid valve structure. There is trace tricuspid valve regurgitation. The pulmonary artery systolic pressure is normal. Great Vessels The aortic annulus, sinuses of valsalva, asc aorta, and aortic arch are normal in size. Venous The inferior vena cava is normal in size and collapses greater than 50% with inspiration. Pericardium/Pleural There is no evidence of pericardial effusion. Prior Study Comparison Changes noted compared to prior study dated: 12/24/2009. Wall motion abnormality not previously mentioned, but otherwise no significant change. Measurements 2D Linear Measurements IVSd: 0.84 0.6-0.9/0.6-1.0 cm LVIDd: 5.58 3.9-5.3/4.2-5.9 cm LVIDd Index: 2.88 2.4-3.2/2.2-3.1 cm/m2 LVIDs: 4.50 2.0-3.6 cm LVPWd: 1.01 0.7-1.1 cm Ao Root: 3.70 2.1-3.5 cm LA Diam: 3.80 2.7-3.8/3.0-4.0 cm LAIDs Index: 1.96 1.5-2.3 cm/m2 LV Mass: 245.89 67-162/88-224 g LV Mass Index: 126.75 43-95/49-115 g/m2 LVOT Diam: 2.00 3.0+(-)1.3 cm 2D Systolic Function EF 4C: 40.70 >55% EF 2C: 39.70 >55% EF BiP: 42.00 >55% Mitral Valve MV Pk E: 0.66 MV PK A: 0.89 MV Decel Time: 171.00 E/A: 0.70 E'Lateral: 5.87 E'Medial: 4.57 E/E' Med: 14.50 E/E' Lat: 11.30 PHT: 50.00 MVA PHT: 4.40 Decel [place]: 3.87 Aortic Valve AoV Pk Carlos: 1.12 AoV Mn Carlos: 0.79 AoV VTI: 0.22 AoV Pk Grad: 5.00 Aov Mn Grad: 3.00 SANDRITA Cont.VTI: 1.76 LVOT LVOT Pk Carlos: 0.60 LVOT Mn Carlos: 0.35 LVOT VTI: 0.12 LVOT Pk Grad: 1.00 LVOT Mn Grad: 1.00 LVOT Diam: 2.00 LVOT Area: 3.14 Diastolic Function MV Pk E: 0.66 MV Pk A: 0.89 E/A: 0.70 E'Medial: 4.57 E/E' Med: 14.50 E' Laterial: 5.87 E/E' Lat: 11.30 Right Ventricle TAPSE (mm): 1.98 Tricuspid Valve TR Pk Carlos: 1.79 TR Pk Grad: 13.00 RA Press: 3.00 RVSP: 16.00 Great Vessels Aorta Ao Root-2D: 3.70 2.0-3.7 cm Ao Asc: 3.20 2.1-3.4 cm Ao Arch: 3.00 Updated in Other Vendor System with Status of Final Hardik Conway MD electronically signed on 12/23/2020 3:10:26 PM with status of Final
== END ==
LOC: HO.CARD 09:41
PROVIDERS: Visit Provider Internal Medicine
DX: I42.9 Cardiomyopathy, unspecified (principal); R74.8 Abnormal levels of other serum enzymes
CPT/HCPCS: 93306

== ENCOUNTER 2021-01-07 13:27 | Emergency (ER) | payer MEDICARE, MEDICAID, SELFPAY ==
--- NOTE | 2021-01-07 13:42 | ECG_ITS ---
Test Reason : HBP Blood Pressure : / mmHG Vent. Rate : 087 BPM Atrial Rate : 087 BPM P-R Int : 138 ms QRS Dur : 102 ms QT Int : 420 ms P-R-T Axes : 041 055 082 degrees QTc Int : 505 ms Sinus rhythm with Blocked Premature atrial complexes Moderate voltage criteria for LVH, may be normal variant Nonspecific T wave abnormality Prolonged QT Abnormal ECG When compared with ECG of 22-NOV-2020 13:48, Premature ventricular complexes are no longer Present Referred By: Jazzy Hinson Electronically Signed By:ESTHELA GLYNN
--- NOTE | 2021-01-07 13:43 | ED.GENADULT ---
HPI - General Adult General Chief complaint: General Medical Stated complaint: htn Time Seen by Provider: 01/07/21 13:34 Source: patient, family and EMS Mode of arrival: EMS Limitations: no limitations History of Present Illness HPI narrative: Patient comes to emergency room via EMS after the patient's visiting nurse found out that the patient's blood pressure was elevated. Patient states that he does not have any chest pain, no shortness of breath, but states that he has strange sensation in his chest. Patient denies headache, no visual changes. Patient takes lisinopril and metoprolol daily, he is compliant with his medication. Related Data Home Medications Medication Instructions Recorded Confirmed atorvastatin 40 mg tablet 40 mg PO BEDTIME 04/01/20 09/26/20 cholecalciferol (vitamin D3) 50 50 mcg PO QAM 04/01/20 09/26/20 mcg (2,000 unit) capsule gabapentin 600 mg tablet 600 mg PO TID 04/01/20 09/26/20 lisinopril 30 mg tablet 30 mg PO QAM 04/01/20 09/26/20 melatonin 5 mg tablet 5 mg PO BEDTIME 04/01/20 09/26/20 metoprolol succinate 25 mg 25 mg PO BEDTIME 04/01/20 09/26/20 tablet,extended release 24 hr phenytoin 50 mg chewable tablet 100 mg PO TID 04/01/20 09/26/20 tamsulosin 0.4 mg capsule 0.4 mg PO DAILY 04/01/20 09/26/20 umeclidinium 62.5 mcg/actuation 1 puff INHALATION DAILY 09/26/20 09/26/20 blister powder for inhalation (Incruse Ellipta) Previous Rx's Medication Instructions Recorded cyanocobalamin (vitamin B-12) 1,000 mcg PO DAILY #20 cap 10/08/20 1,000 mcg capsule folic acid 1 mg tablet 1 mg PO DAILY #30 tab 10/10/20 olanzapine 5 mg tablet 5 mg PO BID #60 tab 10/10/20 thiamine HCl (vitamin B1) 100 mg 100 mg PO DAILY #30 tab 10/10/20 tablet pantoprazole 20 mg tablet,delayed 20 mg PO QAM #30 tab 11/20/20 release furosemide 20 mg tablet (Lasix) 20 mg PO DAILY 7 Days #7 tab 11/22/20 lisinopril 40 mg tablet 40 mg PO DAILY #30 tab 01/07/21 Allergies Allergy/AdvReac Type Severity Reaction Status Date / Time No Known Allergies Allergy Verified 07/22/20 09:27 [No Known Allergies*] Review of Systems Review of Systems: Constitutional : No Weight loss, No Fever, No Chills, No Night Sweats, No Fatigue, No Malaise ENT/Mouth : No Hearing loss, No Ear Pain, No Nasal Congestion, No Sinus Pain, No Hoarseness, No sore throat, No Rhinorrhea, No Swallowing Difficulty Eyes: No Eye Pain, No Swelling, No Redness, No Foreign Body, No Discharge, No Vision Changes Cardiovascular : No Chest Pain, No SOB, No Dyspnea on Exertion, No Orthopnea, No Edema, No Palpitations mild chest discomfort, patient states he has unable to explain Respiratory : No Cough, No Sputum, No Wheezing, No Smoke Exposure, No Dyspnea Gastrointestinal : No Nausea, No Vomiting, No Diarrhea, No Constipation, No abdominal Pain, No Hematochezia, No Melena Genitourinary : no irregular bleeding, No Dysuria, No Urinary Frequency, No Hematuria, No Urinary Incontinence, No Urgency, No Flank Pain, No Urinary Flow Changes, No Hesitancy Musculoskeletal : No joint pain, No Myalgias, No Joint Swelling Skin : No Skin Lesions, No rash Neuro : No Weakness, No Numbness, No Paresthesias, No Loss of Consciousness, No Dizziness, No Headache Psych : No Anxiety/Panic, No Depression, No SI/HI/AH/VH, No Social Issues, Heme/Lymph: No Bruising, No Bleeding,No Lymphadenopathy Endocrine : No Polyuria, No Polydipsia, No Temperature Intolerance [facility] Past Medical History Medical History Alcohol abuse Cardiomyopathy Cirrhosis, alcoholic GERD (gastroesophageal reflux disease) Hepatitis C antibody positive in blood Hypertension Seizure Family History Family History Father No problems noted. Mother No problems noted. Brother Cancer Sister No problems noted. Social History Social History Household Members: Unknown / Unable to assess Housing: Unknown / Unable to assess Unable to assess alcohol history related to: Unable to respond and Unknown Alcohol intake: never Patient Tobacco Use Status: Never used Tobacco Use of substances other than those prescribed or required for medical reasons: No Substance Use Type: Unknown Advance Directives: Yes Advance Directives on File: Yes Advance Directives Date on File: 10/11/20 service: No Current occupational status: disabled Physical Exam Vital Signs: Vital Signs: Last Vital Signs Temp 98.0 F 01/07/21 13:59 Pulse 75 01/07/21 15:12 Resp 18 01/07/21 15:12 BP 178/85 H 01/07/21 15:12 Pulse Ox 99 01/07/21 15:12 Body Mass Index 29.8 Const: Other: Appearance: Alert. Oriented X3. No acute distress. Eyes: Pupils equal, round and reactive to light. ENT: Pharynx normal. Neck: Normal inspection. Neck supple. No lymph nodes noted. No crepitus CVS: Normal heart rate and rhythm. Pulses normal. Normal S1 and S2 Respiratory: No respiratory distress. Breath sounds normal. No Wheezing. No rales Abdomen: Soft and nontender. No rigidity. No distention. Skin: Skin warm and dry. Normal skin color. Normal skin turgor. Extremities: Trace pitting edema bilaterally No Lacerations. No Rash Neuro: Oriented X 3. No motor deficit. No sensory deficit. Moving all extermities. No slurred speech. 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 Pain to get to the bus stop as soon as possible as they do have a ride afterwards. Patient has a blood pressure 178 systolic. Asymptomatic. Patient's blood pressure medication lisinopril increased to 50 mg a day from 30. Medical Decision Making Lab Data Result diagrams: 01/07/21 15:11 01/07/21 15:11 Labs: Lab Results 01/07/21 Range/Units 15:11 WBC 9.5 (4.8-10.8) X10*3/uL RBC 3.87 L (4.60-5.80) X10*6/uL Hgb 12.0 L (14.0-18.0) g/dl Hct 36.1 L (42-52) % MCV 93.3 (80-98) fL MCH 31.0 (27.0-33.0) pg MCHC 33.2 (31.0-36.0) g/dl RDW 13.4 (11.0-16.0) % Plt Count 156 L D (160-400) X10*3/uL MPV 9.1 L (9.4-12.4) fL Immature Gran % (Auto) 0.2 (0.0-0.4) % Neut % (Auto) 45.9 (45-73) % Lymph % (Auto) 39.7 (20-40) % [place] % (Auto) 9.4 (2-11) % Eos % (Auto) 4.4 H (0-4) % Baso % (Auto) 0.4 (0-2) % Lymph # (Auto) 3.8 (1.2-4.9) X10*3/uL [place] # (Auto) 0.9 (0.1-1.2) X10*3/uL Eos # (Auto) 0.4 (0.0-0.4) X10*3/uL Baso # (Auto) 0.0 (0.0-0.2) X10*3/uL Abs Immat Gran (auto) 0.02 (0.00-0.03) X10*3/uL Absolute Neuts (auto) 4.3 (2.0-8.3) X10*3/uL Absolute Nucleated RBC 0.000 (0.0-0.012) X10*3/uL Nucleated RBC % (auto) 0.0 (0.0-0.2) /100WBC Discharge Plan Discharge Clinical Impression: Hypertension Patient Disposition: Home, Self-Care Additional Instructions: Please follow-up with your primary care physician tomorrow. If you have any worsening or new symptoms, please return to the emergency room or call 911 Prescriptions: New lisinopril 40 mg tablet 40 mg PO DAILY Qty: 30 RF: 0 No Action pantoprazole 20 mg tablet,delayed release (DR/EC) 20 mg PO QAM Qty: 30 RF: 2 Incruse Ellipta 62.5 mcg/actuation blister with device 1 puff inhalation DAILY RF: 0 cyanocobalamin (vitamin B-12) 1,000 mcg capsule 1,000 mcg PO DAILY Qty: 20 RF: 0 olanzapine 5 mg tablet 5 mg PO BID Qty: 60 RF: 1 folic acid 1 mg tablet 1 mg PO DAILY Qty: 30 RF: 1 thiamine HCl (vitamin B1) 100 mg tablet 100 mg PO DAILY Qty: 30 RF: 1 furosemide [Lasix] 20 mg tablet 20 mg PO DAILY 7 Days Qty: 7 RF: 0 lisinopril 30 mg tablet 30 mg PO QAM RF: 0 metoprolol succinate 25 mg tablet extended release 24 hr 25 mg PO BEDTIME RF: 0 atorvastatin 40 mg tablet 40 mg PO BEDTIME RF: 0 gabapentin 600 mg tablet 600 mg PO TID RF: 0 tamsulosin 0.4 mg capsule 0.4 mg PO DAILY RF: 0 melatonin 5 mg tablet 5 mg PO BEDTIME RF: 0 cholecalciferol (vitamin D3) 50 mcg (2,000 unit) capsule 50 mcg PO QAM RF: 0 phenytoin 50 mg tablet,chewable 100 mg PO TID RF: 0 Stand Alone Forms: Against Medical Advice
[2021-01-07 13:59] VITALS: BP 160/100; BP 194/94; PULSE 69; PULSE 88; RESP 18; TEMP 36.7; O2SAT 100; BMI 29.8
[2021-01-07 14:07] VITALS: BP 194/94; PULSE 68
[2021-01-07] MEDS: Labetalol HCL 100 MG TABLET PO (14:07)
--- NOTE | 2021-01-07 14:08 | PC.NURSE ---
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
[2021-01-07 14:45] VITALS: BP 176/107; PULSE 98; RESP 19; O2SAT 95
[2021-01-07 15:12] VITALS: BP 178/85; PULSE 75; RESP 18; O2SAT 99
[2021-01-07 15:18] LABS: MANUAL DIFF FLAG NO
[2021-01-07 15:21] LABS: Basophils Percent Auto 0.4 % (0-2); Eosinophils Absolute Auto 0.4 X10*3/uL (0.0-0.4); Eosinophils Percent Auto 4.4 % (0-4); Hematocrit 36.1 % (42-52); Imm Gran Abs Auto 0.02 X10*3/uL (0.00-0.03); Imm Gran Pct Auto 0.2 % (0.0-0.4); Lymphocytes Absolute Auto 3.8 X10*3/uL (1.2-4.9); Lymphocytes Percent Auto 39.7 % (20-40); Mean Corpuscular HGB Conc 33.2 g/dl (31.0-36.0); Mean Corpuscular Volume 93.3 fL (80-98); Mean Platelet Volume 9.1 fL (9.4-12.4); Monocytes Absolute Auto 0.9 X10*3/uL (0.1-1.2); Monocytes Percent Auto 9.4 % (2-11); Neutrophils Absolute Auto 4.3 X10*3/uL (2.0-8.3); Neutrophils Percent Auto 45.9 % (45-73); Platelet Count 156 X10*3/uL (160-400); Red Blood Count 3.87 X10*6/uL (4.60-5.80); Red Cell Distribution Width 13.4 % (11.0-16.0); White Blood Count 9.5 X10*3/uL (4.8-10.8)
[2021-01-07 15:42] LABS: Anion Gap 9 (12-20); B Type Natriuretic Peptide 911 pg/mL (<100); Blood Urea Nitrogen 10 mg/dL (9-16); Calcium 8.9 mg/dL (8.4-10.2); Carbon Dioxide 28 mmol/L (22-29); Chloride 109 mmol/L (96-108); Creatinine Clr Calc Pharmacy 97.1; Estimated Glomerular Filt Rate > 60; Glucose Random 73 mg/dL (60-115); Potassium 3.6 mmol/L (3.3-5.1); Sodium 142 mmol/L (135-145); Troponin-I High Sensitivity 34.3 ng/L (<3.5-35.0)
== END 2021-01-07 15:44 | disposition home or self-care (01) ==
PROVIDERS: Emergency Provider Emergency Medicine; PCP Internal Medicine
DX: I10 Essential (primary) hypertension (principal)
CPT/HCPCS: 36415; 80048; 83880; 84484; 85025; 93005; 99283; 99284

== ENCOUNTER → 2021-01-28 09:45 | Outpatient (BNVA) | payer MEDICARE, MEDICAID, SELFPAY | PROVIDERS: PCP Internal Medicine; Referring Provider Internal Medicine; Visit Provider Internal Medicine | DX: I42.9 Cardiomyopathy, unspecified (principal); I10 Essential (primary) hypertension; F10.10 Alcohol abuse, uncomplicated; F17.200 Nicotine dependence, unspecified, uncomplicated | CPT/HCPCS: 99202 ==

== ENCOUNTER → 2021-02-05 09:28 | Outpatient (REF) | payer MEDICARE, MEDICAID, SELFPAY ==
--- NOTE | ~2021-02-05 | NM_ITS ---
Myocardial perfusion study Indication: Shortness of breath evaluate for myocardial ischemia Technique: The patient was brought in for a Lexiscan perfusion study on 02/05/2021. Patient performed low-level exercise and was injected 0.4 mg of Lexiscan intravenously. Within a minute of injection, 30 mCi of sestamibi was given intravenously. Images were obtained using the SPECT gamma camera interlaced with the gating device. Images were obtained in supine position. Resting perfusion study was performed on 02/06/2021. Patient was administered 30 mCi of sestamibi intravenously at rest. Images were then obtained in supine position. Images obtained with and without CT attenuation. Total DLP 104 mgy-cm. Images were processed with the software and compared side to side in short axis, horizontal long axis and vertical long axis views. Findings: The stress perfusion study showed nonattenuated images show severely reduced uptake in the basal inferior and moderately reduced uptake in the mid and inferoapical wall of the LV myocardium. Also the lateral wall of the attenuation corrected images show mildly reduced uptake in the basal inferior wall of the LV myocardium.. The gated study shows reduced LV systolic function with calculated LVEF of 26%. LV cavity is moderately dilated size. The gated study shows diffusely reduced wall thickening and contraction of segments. Resting study shows no significant change in perfusion pattern compared to stress perfusion study. Gating at rest reveals diffusely reduced wall motion with ejection fraction at 31%. The findings are consistent with no clear reversible defect suggestive of ischemia.. NM/NM cardiolite stress test Impression: 1. Myocardial perfusion imaging study shows no ischemia 2. Gated LVEF is 26% 3. Transient ischemic dilatation not present but LV cavity is dilated EKG is nondiagnostic for ischemia
--- NOTE | 2021-02-05 09:30 | CA_ITS ---
Acquisition Time: 2021-02-05 09:35:03 Total Exercise Time: 00:02:00 Test Indications: Dyspnea Medications: ATORVASTATIN FUROSEMIDE GABAPENTIN LISINOPRIL METOPROLOL OLANZAPINE PANTOPRAZOLE PHENYTOIN TAMSULOSIN Protocol: LEXISCAN Max HR: 123 BPM 79% of Pred: 154 BPM Max BP: 118/060 mmHG Max Work Load: 1.0 METS Pharmacological stress test with Lexiscan injection, while sitting and kicking his legs, without anginal symptoms, with PACs, atrial cuplets, brief atrial runs, sinus arrythmia, with normotensive response to injection, with nondiagnostic EKG for ischemia. In recovery he reported lightheadedness and was treated with Aminophylline 75mg IVP with resolution of symptom. Nuclear images pending. Test reviewed with Dr Conway. Referred By: Hardik Conway Overread By: ELZBIETA HARTMAN
== END ==
LOC: HO.CARD 09:28
PROVIDERS: Visit Provider Internal Medicine
DX: R06.02 Shortness of breath (principal); I42.9 Cardiomyopathy, unspecified
CPT/HCPCS: 78452; 93017; A9500; J0280; J2785

== ENCOUNTER → 2021-02-13 13:37 | Outpatient (BNVA) | payer MEDICARE, MEDICAID, SELFPAY | PROVIDERS: PCP Internal Medicine; Referring Provider Internal Medicine; Visit Provider Nurse Practitioner Family ==

== ENCOUNTER → 2021-03-25 13:33 | Outpatient (BNVA) | payer MEDICARE, MEDICAID, SELFPAY | PROVIDERS: PCP Internal Medicine; Referring Provider Internal Medicine; Visit Provider Nurse Practitioner Family | DX: I42.9 Cardiomyopathy, unspecified (principal); I10 Essential (primary) hypertension; R93.1 Abnormal findings on diagnostic imaging of heart and coronary circulation; F10.10 Alcohol abuse, uncomplicated; F17.200 Nicotine dependence, unspecified, uncomplicated | CPT/HCPCS: 99212 ==

== ENCOUNTER 2021-04-08 09:29 | Outpatient (REF) | payer MEDICARE, MEDICAID, SELFPAY ==
[2021-04-08 10:45] LABS: B Type Natriuretic Peptide 98 pg/mL (<100)
[2021-04-08 11:05] LABS: Anion Gap 9 (12-20); Blood Urea Nitrogen 16 mg/dL (9-16); Calcium 9.7 mg/dL (8.4-10.2); Carbon Dioxide 29 mmol/L (22-29); Chloride 106 mmol/L (96-108); Estimated Glomerular Filt Rate > 60; Glucose Random 92 mg/dL (60-115); Potassium 4.2 mmol/L (3.3-5.1); Sodium 140 mmol/L (135-145)
== END 2021-04-08 09:30 | disposition home or self-care (01) ==
LOC: HO.LAB 09:29
PROVIDERS: Visit Provider Nurse Practitioner Family
DX: I42.9 Cardiomyopathy, unspecified (principal)
CPT/HCPCS: 36415; 80048; 83880

== ENCOUNTER → 2021-05-08 09:29 | Outpatient (REF) | payer MEDICARE, MEDICAID, SELFPAY ==
--- NOTE | 2021-05-08 09:45 | CA_ITS ---
Transthoracic Echocardiogram Patient (Last, First, Middle): Lloyd Molina, Gender: Male Date of : 1955 Age: 65 Procedure Date: 05/08/2021 Procedure Type: Transthoracic Echocardiogram Location: OP Height: 167.64 cm Weight: 85.28 kg BSA: 1.95 m2 Heart Rate: bpm BP: 132 / 86 mmHg Cash Analyst: CHINMAY Carrasco MD: Chrissy Ortiz THERMITE BOMB LOADERHiginio Service Officer: Jorge Hoskins MD Symptoms: I42.9 - Cardiomyopathy, unspecified Study Quality: Fair ECG Rhythm: Sinus Conclusions: - Low normal LV systolic function with LVEF of 50-55% Findings Left Ventricle The left ventricular systolic function is low normal. The visually estimated ejection fraction is between 50-55%. Wall Motion Rest Echo Findings The mid inferior and mid inferoseptal segments are hypokinetic. The basal inferior, basal inferoseptal, and basal inferolateral segments are akinetic. All other scored wall segments showed normal motion. Prior Study Comparison Changes noted compared to prior study dated: 12/23/2020. LV systolic function has improved Measurements 2D Linear Measurements IVSd: 1.05 0.6-0.9/0.6-1.0 cm LVIDd: 5.04 3.9-5.3/4.2-5.9 cm LVIDd Index: 2.58 2.4-3.2/2.2-3.1 cm/m2 LVIDs: 3.67 2.0-3.6 cm LVPWd: 1.09 0.7-1.1 cm LV Mass: 251.81 67-162/88-224 g LV Mass Index: 129.13 43-95/49-115 g/m2 2D Systolic Function EF 4C: 53.70 >55% EF 2C: 53.90 >55% EF BiP: 54.00 >55% Mitral Valve MV Pk E: 0.87 MV PK A: 0.95 MV Decel Time: 281.00 E/A: 0.90 E'Lateral: 7.72 E'Medial: 5.44 E/E' Med: 16.10 E/E' Lat: 11.30 PHT: 82.00 MVA PHT: 2.68 Decel [place]: 3.11 Diastolic Function MV Pk E: 0.87 MV Pk A: 0.95 E/A: 0.90 E'Medial: 5.44 E/E' Med: 16.10 E' Laterial: 7.72 E/E' Lat: 11.30 Updated in Other Vendor System with Status of Final Jorge Hoskins MD electronically signed on 05/08/2021 12:16:34 PM with status of Final
== END ==
LOC: HO.CARD 09:29
PROVIDERS: Visit Provider Nurse Practitioner Family
DX: I42.9 Cardiomyopathy, unspecified (principal)
CPT/HCPCS: 93308

== ENCOUNTER 2021-06-23 09:42 | Inpatient (IN) | payer MEDICARE, MEDICAID, SELFPAY ==
--- NOTE | 2021-06-23 | ECG_ITS ---
Test Reason : SEPSIS Blood Pressure : / mmHG Vent. Rate : 058 BPM Atrial Rate : 058 BPM P-R Int : 142 ms QRS Dur : 098 ms QT Int : 426 ms P-R-T Axes : 032 061 077 degrees QTc Int : 418 ms Sinus bradycardia Minimal voltage criteria for LVH, may be normal variant ( Sokolow-Maciel ) Early repolarization Borderline ECG When compared with ECG of 07-JAN-2021 14:49, Vent. rate has decreased BY 29 BPM Nonspecific T wave abnormality no longer evident in Lateral leads QT has shortened Referred By: Oksana Han Electronically Signed By:HEATHER MCINTOSH MD
--- NOTE | ~2021-06-23 | CT_ITS ---
EXAMINATION: CT HEAD WITHOUT CONTRAST CLINICAL INFORMATION: Altered mental status. Fall. COMPARISON: Previous head CT most recent September 2020 TECHNIQUE: Contiguous axial imaging was performed from the skull base to vertex without intravenous administration of contrast. This CT examination was performed using dose optimization techniques as appropriate, variously including the following: *Automated exposure control *Adjustment of mA and/or kV according to patient size (this includes techniques or standardized protocols for targeted exams where dose is matched to indication/reason for exam; i.e. extremities or head) *Use of iterative reconstruction technique DLP: 465 mGy-cm FINDINGS: There is no evidence of an extra-axial collection. There is no evidence of intra or extra-axial hemorrhage. The ventricles and extra-axial CSF spaces are prominent suggestive of generalized atrophy. There is nonspecific periventricular white matter disease. No mass, mass effect or infarct is seen. No skull fracture is seen. There are inflammatory changes in the bilateral maxillary and sphenoid sinuses. CT/CT head/brain wo con IMPRESSION: No acute intracranial findings.
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
--- NOTE | ~2021-06-23 | CT_ITS ---
EXAMINATION: CT ABDOMEN AND PELVIS WITHOUT CONTRAST CLINICAL INFORMATION: Acute mental status change. Question ascites. COMPARISON: Limited abdominal ultrasound from earlier the same day and CTA of the abdomen and pelvis March 2018. TECHNIQUE: Multidetector volumetric imaging was performed from the superior aspect of the liver through the pubic symphysis. Sagittal and coronal reformatted images were obtained on the technologist's workstation. This CT examination was performed using dose optimization techniques as appropriate, variously including the following: *Automated exposure control *Adjustment of mA and/or kV according to patient size (this includes techniques or standardized protocols for targeted exams where dose is matched to indication/reason for exam; i.e. extremities or head) *Use of iterative reconstruction technique DLP: 419 mGy-cm FINDINGS: Exam is limited due to motion artifact. LUNG BASES: There is atelectasis at the right lung base. LIVER, GALLBLADDER, AND BILIARY TREE: The liver is normal in size, shape, and attenuation. No focal hepatic lesion or biliary ductal dilatation is present. The gallbladder is upper normal in size. The gallbladder is otherwise unremarkable. Gallstone seen by ultrasound are not appreciated by CT scan. PANCREAS: Unremarkable. SPLEEN: Unremarkable. ADRENAL GLANDS: Unremarkable. KIDNEYS AND URETERS: The kidneys are normal in size, shape, and attenuation. No hydronephrosis, hydroureter, or calculi seen. No perinephric stranding. BLADDER: Not optimally distended. There is question of mild diffuse bladder wall thickening. GASTROINTESTINAL TRACT: The small and large bowel are unremarkable. The appendix is unremarkable. ABDOMINAL WALL: There is a small umbilical hernia containing fat.. LYMPH NODES: Normal. VASCULAR: Severe atherosclerotic disease. No aneurysm is seen. PELVIC VISCERA: Prostate gland is slightly enlarged measuring 3.7 x 4 cm in AP and transverse dimension. OSSEOUS STRUCTURES: There is an old or healing right iliac bone fracture. This does not appear acute but is new in the interval from March 2018 exam. There are degenerative changes of the spine. There are degenerative changes at the hip joints. CT/CT abdomen pelvis wo con IMPRESSION: Limited exam due to motion artifact. No ascites. Upper normal-size gallbladder. Gallstones seen by ultrasound are not appreciated by CT scan. Severe atherosclerotic disease. Slightly enlarged prostate gland. Old or healing right iliac bone fracture. Fleischner guidelines were followed.
--- NOTE | ~2021-06-23 | CT_ITS ---
EXAMINATION: CT CERVICAL SPINE WITHOUT CONTRAST CLINICAL INFORMATION: Acute mental status change. Fall. COMPARISON: Previous cervical spine CT September 2020 TECHNIQUE: Axial images through the cervical spine without contrast. Sagittal and coronal reconstructions on the technologist workstation were performed. This CT examination was performed using dose optimization techniques as appropriate, variously including the following: *Automated exposure control *Adjustment of mA and/or kV according to patient size (this includes techniques or standardized protocols for targeted exams where dose is matched to indication/reason for exam; i.e. extremities or head) *Use of iterative reconstruction technique DLP: 465 mGy-cm FINDINGS: The head is tilted to the right. There is curvature of the upper cervical spine to the left. There is curvature of the lower cervical and upper thoracic spine to the right. Bone alignment is otherwise normal. No fracture or dislocation is seen. There is degenerative spondylosis and degenerative disc disease from C4-C5 to C7-T1. There are degenerative changes at the C1 dens articulation. Prevertebral soft tissues are normal. There is bilateral carotid calcification. There are emphysematous changes seen at the lung apices. Inflammatory changes seen in the sphenoid sinus. There are small high attenuation soft tissue densities in the subcutaneous fat in the posterior cervical spine. There are larger denser radiopaque soft tissue foreign bodies in the lower cervical spine appreciated on the topogram images only. This appears unchanged from September [address]/CT cervical spine wo con IMPRESSION: Degenerative changes. No fracture or dislocation. Emphysematous changes at the lung apices. Fleischner guidelines were followed.
--- NOTE | ~2021-06-23 | US_ITS ---
EXAMINATION: US ABDOMEN LIMITED CLINICAL INFORMATION: Check for ascites. COMPARISON: Previous abdominal ultrasound September 2020 TECHNIQUE: Limited 4 quadrant abdominal ultrasound FINDINGS: There is no ascites. There are gallstones in the gallbladder. US/US abdomen limited IMPRESSION: No ascites.
[2021-06-23 10:09] VITALS: BP 110/89; PULSE 130; RESP 22; TEMP 36.9; BMI 27.8
[2021-06-23 10:28] LABS: MANUAL DIFF FLAG NO
[2021-06-23 10:29] VITALS: O2SAT 95
[2021-06-23 10:31] LABS: Basophils Percent Auto 0.3 % (0-2); Eosinophils Absolute Auto 0.2 X10*3/uL (0.0-0.4); Eosinophils Percent Auto 1.7 % (0-4); Hematocrit 34.7 % (42.0-52.0); Hemoglobin 11.4 g/dl (14.0-18.0); Imm Gran Abs Auto 0.04 X10*3/uL (0.00-0.03); Imm Gran Pct Auto 0.3 % (0.0-0.4); Lymphocytes Absolute Auto 3.1 X10*3/uL (1.2-4.9); Lymphocytes Percent Auto 24.5 % (20-40); Mean Corpuscular HGB Conc 32.9 g/dl (31.0-36.0); Mean Corpuscular Hemoglobin 30.6 pg (27.0-33.0); Mean Corpuscular Volume 93.3 fL (80.0-98.0); Mean Platelet Volume 8.9 fL (9.4-12.4); Monocytes Absolute Auto 0.9 X10*3/uL (0.1-1.2); Monocytes Percent Auto 7.5 % (2-11); Neutrophils Absolute Auto 8.2 x10*3/uL (2.0-8.3); Neutrophils Percent Auto 65.7 % (45-73); Platelet Count 263 X10*3/uL (160-400); Red Blood Count 3.72 X10*6/uL (4.60-5.80); Red Cell Distribution Width 12.8 % (11.0-16.0); White Blood Count 12.5 X10*3/uL (4.8-10.8)
[2021-06-23 10:35] VITALS: PULSE 66
--- NOTE | 2021-06-23 10:36 | ED_ITS ---
HPI - Altered Mental Status General Chief Complaint: Altered Mental Status Stated Complaint: weakness and confusion for 1 week Time Seen by Provider: 06/23/21 10:21 Source: patient Mode of arrival: EMS Limitations: language barrier ( Kinyarwanda speaking, analysis lead utilized) and altered mental status History of Present Illness HPI narrative: Patient is a 65-year-old male with a past medical history of hypertension, seizure, cardiomyopathy, dementia, B12 deficiency, encephalopathy, hepatitis-C, alcoholic cirrhosis, GERD, urinary tract infection. He is coming from home, transported by EMS after a neighbor called 911 due to increasing confusion over 1 week. Patient is lethargic, minimally conversive during examination when asked why he is here he states because of an injury when asked whether he had fallen he reports yes , but otherwise unable to provide any relevant history. MD complaint: altered mental status and confusion Onset (ago): day(s) Related Data Home Medications Medication Instructions Recorded Confirmed atorvastatin 40 mg tablet 40 mg PO BEDTIME 04/01/20 06/23/21 cholecalciferol (vitamin D3) 50 50 mcg PO DAILY 04/01/20 06/23/21 mcg (2,000 unit) capsule gabapentin 600 mg tablet 600 mg PO BID 04/01/20 06/23/21 metoprolol succinate 25 mg 25 mg PO BEDTIME 04/01/20 06/23/21 tablet,extended release 24 hr phenytoin 50 mg chewable tablet 100 mg PO BID 04/01/20 06/23/21 tamsulosin 0.4 mg capsule 0.4 mg PO DAILY 04/01/20 06/23/21 umeclidinium 62.5 mcg/actuation 1 puff INHALATION DAILY 09/26/20 06/23/21 blister powder for inhalation (Incruse Ellipta) naltrexone 50 mg tablet 1 tab PO DAILY 06/23/21 06/23/21 olanzapine 5 mg tablet 2.5 mg PO DAILY 06/23/21 06/23/21 olanzapine 5 mg tablet 5 mg PO DAILY@1200,1500 06/23/21 06/23/21 pantoprazole 20 mg tablet,delayed 20 mg PO DAILY 06/23/21 06/23/21 release sertraline 25 mg tablet 1 tab PO DAILY 06/23/21 06/23/21 spironolactone 25 mg tablet 2 tab PO DAILY 02/14/22 02/14/22 Previous Rx's Medication Instructions Recorded cyanocobalamin (vitamin B-12) 1,000 mcg PO DAILY #20 cap 10/08/20 1,000 mcg capsule folic acid 1 mg tablet 1 mg PO DAILY #30 tab 10/10/20 thiamine HCl (vitamin B1) 100 mg 100 mg PO DAILY #30 tab 10/10/20 tablet lisinopril 40 mg tablet 40 mg PO DAILY #30 tab 01/07/21 furosemide 20 mg tablet (Lasix) 20 mg PO DAILY PRN 90 Days #90 tab 04/14/21 Allergies Allergy/AdvReac Type Severity Reaction Status Date / Time No Known Allergies Allergy Verified 03/25/21 14:56 [No Known Allergies*] Review of Systems Review of Systems: ROS unable to be obtained due to altered mental status [facility] Past Medical History Source: old records reviewed Medical History Alcohol abuse Cardiomyopathy Cirrhosis, alcoholic GERD (gastroesophageal reflux disease) Hepatitis C antibody positive in blood Hypertension Seizure Surgical History No pertinent past surgical history Family History Family History Father No problems noted. Mother No problems noted. Brother Cancer Sister No problems noted. Social History Social History Household Members: Unknown / Unable to assess Housing: Unknown / Unable to assess Unable to assess alcohol history related to: Unable to respond and Unknown Alcohol intake: current Alcohol intake frequency: a few times a week Alcohol type: hard liquor Patient Tobacco Use Status: Current everyday Tobacco user Substance Use Type: Unknown Advance Directives: Yes Advance Directives on File: Yes Advance Directives Date on File: 10/11/20 service: No Current occupational status: disabled Physical Exam ED Vital Signs: Vital Signs - 24 hr 06/23/21 10:09 06/23/21 10:29 06/23/21 10:35 Temperature 98.5 F Pulse Rate 130 H 66 Respiratory Rate 22 H Blood Pressure 110/89 Pulse Oximetry 95 06/23/21 11:57 Temperature 98.5 F Pulse Rate Respiratory Rate Blood Pressure Pulse Oximetry BMI result Body Mass Index 27.8 Vital signs have been reviewed as normal and appeared to be correct. Blood pressure normal.?Heart rate when initially documented was elevated at 130 during exam consistently in 60's.? Respiration rate normal. Temperature normal.? Oxygen saturation normal. Appearance: Disoriented to person, place and time. Head: Normocephalic, atraumatic. Eyes: Sclera white, conjunctiva pink. PERRL, 3 mm bilaterally. ENT: Pharynx normal.?? Neck: Normal inspection.? Neck supple.?? CVS: Heart sounds normal. Normal heart rate and rhythm.? Pulses normal.?? Respiratory: No respiratory distress.? Lung sounds clear to auscultation bilaterally?? Abdomen: Distended, tympanic on percussion at midline and dull at flanks. Normoactive bowel sounds. No pulsatile mass.?? Skin: Skin warm and dry.? Normal skin color.? Normal skin turgor.?? Extremities: No lower extremity edema.? Neuro: unable to perform neurological examination, due to altered mental status. Course Course Course Narrative: Patient is a 65-year-old male presenting to emergency department altered mental status. Initial reading of tachycardia at 130 I suspect to have been entered in error initially, as heart rate consistently in the 60s during examination. He is normotensive, afebrile, not hypoxic, at this time I do not suspect a bacterial infection. Given mention of injury and fall will obtain CT of head and neck to assess for ICH, SAH, or fracture/dislocation, and will check CK level as it is unclear whether he had any prolonged down time. His abdomen is distended, and given his history of cirrhosis, will obtain ammonia level and CT to further evaluate for ascites or intra-abdominal pathology. Reevaluation(s) Reevaluation #1: CBC reveals mild leukocytosis 12.5, mild anemia with hemoglobin 11.4 and hematocrit 34.7 consistent with prior labs. CK is elevated at 1765 consistent with rhabdomyolysis, and with acute kidney injury BUN 70 and creatinine 2.94, NS 1L IV ordered at this time. ammonia level is normal at 18. Troponin of 29.6, comparable to prior level December 2020, will obtain 3 hour repeat, EKG with nons pecific ST abnormalities consistent with prior EKG in December 2020 Time: 11:15 Reevaluation #2: Chest x-ray reveals mild cardiomegaly with mild CHF, no acute consolidations, there is question of pleural effusion with underlying atelectasis of the left lung base. CT of the head reveals no acute intracranial pathology and CT of the neck indicates degenerative changes with no fracture or dislocation. Abdominal ultrasound indicates no ascites, though there is gallstones, will add on a lipase level. Time: 12:00 Reevaluation #3: Results of urinalysis reviewed at this time concerning for urinary tract infection, will order Rocephin 1 g IV. Lactic acid was normal at 1.0, patient has already received 1 L of IV fluids. CT of the abdomen and pelvis indicates no ascites, nonspecific changes including an old or healing right iliac bone fracture, not appear to be acute but is new from prior examination March 2018. at this time, suspect his altered mental status is due to combination of urinary tract infection, dehydration with acute kidney injury and rhabdomyolysis. Contacted hospitalist, patient accepted for admission by Dr. Jones. Time: 12:43 MDM - Altered Mental Status Medical Records Attestation: I reviewed the patient's medical records. Lab Data Attestation: I reviewed the patient's lab results. Result diagrams: 06/23/21 10:22 06/23/21 10:22 Labs: Lab Results 06/23/21 06/23/21 06/23/21 Range/Units 10:22 10:22 10:22 WBC 12.5 H (4.8-10.8) X10*3/uL RBC 3.72 L (4.60-5.80) X10*6/uL Hgb 11.4 L (14.0-18.0) g/dl Hct 34.7 L (42.0-52.0) % MCV 93.3 (80.0-98.0) fL MCH 30.6 (27.0-33.0) pg MCHC 32.9 (31.0-36.0) g/dl RDW 12.8 (11.0-16.0) % Plt Count 263 (160-400) X10*3/uL MPV 8.9 L (9.4-12.4) fL Immature Gran % (Auto) 0.3 (0.0-0.4) % Neut % (Auto) 65.7 (45-73) % Lymph % (Auto) 24.5 (20-40) % [place] % (Auto) 7.5 (2-11) % Eos % (Auto) 1.7 (0-4) % Baso % (Auto) 0.3 (0-2) % Lymph # (Auto) 3.1 (1.2-4.9) X10*3/uL [place] # (Auto) 0.9 (0.1-1.2) X10*3/uL Eos # (Auto) 0.2 (0.0-0.4) X10*3/uL Baso # (Auto) 0.0 (0.0-0.2) X10*3/uL Abs Immat Gran (auto) 0.04 H (0.00-0.03) X10*3/uL Absolute Neuts (auto) 8.2 (2.0-8.3) x10*3/uL Absolute Nucleated RBC 0.000 (0.0-0.012) X10*3/uL Nucleated RBC % (auto) 0.0 (0.0-0.2) /100WBC PT (9.9-13.0) SEC INR (0.9-1.1) Sodium 141 (135-145) mmol/L Potassium 4.7 (3.3-5.1) mmol/L Chloride 109 H (96-108) mmol/L Carbon Dioxide 23 (22-29) mmol/L Anion Gap 14 (12-20) BUN 70 H (9-16) mg/dL Creatinine 2.94 H (0.5-1.4) mg/dL Estim Creat Clear Calc 25.9 Estimated GFR 22 Random Glucose 117 H (60-115) mg/dL Lactic Acid 1.0 (0.5-2.0) mmol/L Calcium 10.2 (8.4-10.2) mg/dL Magnesium 1.8 (1.6-2.6) mg/dL Total Bilirubin 0.6 (0.0-1.0) mg/dL AST 19 (5-37) U/L ALT 9 (0-40) U/L Alkaline Phosphatase 82 (39-117) U/L Ammonia (13-55) umol/L Total Creatine Kinase 1765 H D (38-174) U/L Troponin I High Sens (<3.5-35.0) ng/L B-Natriuretic Peptide (<100) pg/mL Total Protein 8.3 H (6.5-8.0) g/dL Albumin 4.3 (3.5-5.0) g/dL Lipase 34 (8-78) U/L Urine Color Urine Appearance Urine pH (5.0-8.0) Ur Specific [place] (1.005-1.025) Urine Protein (NEG-TRACE) MG/DL Urine Glucose (UA) (NEG) MG/DL Urine Ketones (NEG) MG/DL Urine Blood (NEG) Urine Nitrite (NEG) Ur Leukocyte Esterase (NEG) Urine RBC (0) /HPF Urine WBC (0-4) /HPF Ur Squamous Epith Cells /LPF Calcium Oxalate Crystal /LPF Urine Bacteria /LPF Ur Random Sodium mmol/L Urine Creatinine mg/dL COVID-19 (KATELYNN) (Negative) COVID-19 Clin Com 06/23/21 06/23/21 06/23/21 Range/Units 10:22 10:57 10:57 WBC (4.8-10.8) X10*3/uL RBC (4.60-5.80) X10*6/uL Hgb (14.0-18.0) g/dl Hct (42.0-52.0) % MCV (80.0-98.0) fL MCH (27.0-33.0) pg MCHC (31.0-36.0) g/dl RDW (11.0-16.0) % Plt Count (160-400) X10*3/uL MPV (9.4-12.4) fL Immature Gran % (Auto) (0.0-0.4) % Neut % (Auto) (45-73) % Lymph % (Auto) (20-40) % [place] % (Auto) (2-11) % Eos % (Auto) (0-4) % Baso % (Auto) (0-2) % Lymph # (Auto) (1.2-4.9) X10*3/uL [place] # (Auto) (0.1-1.2) X10*3/uL Eos # (Auto) (0.0-0.4) X10*3/uL Baso # (Auto) (0.0-0.2) X10*3/uL Abs Immat Gran (auto) (0.00-0.03) X10*3/uL Absolute Neuts (auto) (2.0-8.3) x10*3/uL Absolute Nucleated RBC (0.0-0.012) X10*3/uL Nucleated RBC % (auto) (0.0-0.2) /100WBC PT (9.9-13.0) SEC INR (0.9-1.1) Sodium (135-145) mmol/L Potassium (3.3-5.1) mmol/L Chloride (96-108) mmol/L Carbon Dioxide (22-29) mmol/L Anion Gap (12-20) BUN (9-16) mg/dL Creatinine (0.5-1.4) mg/dL Estim Creat Clear Calc Estimated GFR Random Glucose (60-115) mg/dL Lactic Acid (0.5-2.0) mmol/L Calcium (8.4-10.2) mg/dL Magnesium (1.6-2.6) mg/dL Total Bilirubin (0.0-1.0) mg/dL AST (5-37) U/L ALT (0-40) U/L Alkaline Phosphatase (39-117) U/L Ammonia (13-55) umol/L Total Creatine Kinase (38-174) U/L Troponin I High Sens 29.6 (<3.5-35.0) ng/L B-Natriuretic Peptide < 10 (<100) pg/mL Total Protein (6.5-8.0) g/dL Albumin (3.5-5.0) g/dL Lipase (8-78) U/L Urine Color YELLOW Urine Appearance CLOUDY Urine pH 5.5 (5.0-8.0) Ur Specific [place] >= 1.030 H (1.005-1.025) Urine Protein TRACE (NEG-TRACE) MG/DL Urine Glucose (UA) NEG (NEG) MG/DL Urine Ketones NEG (NEG) MG/DL Urine Blood TRACE (NEG) Urine Nitrite NEG (NEG) Ur Leukocyte Esterase 1+ H (NEG) Urine RBC 5-9 H (0) /HPF Urine WBC 76-150 H (0-4) /HPF Ur Squamous Epith Cells 1+ /LPF Calcium Oxalate Crystal TRACE /LPF Urine Bacteria 2+ /LPF Ur Random Sodium 64.0 mmol/L Urine Creatinine 330.46 mg/dL COVID-19 (KATELYNN) (Negative) COVID-19 Clin Com 06/23/21 06/23/21 06/23/21 Range/Units 11:39 11:39 11:55 WBC (4.8-10.8) X10*3/uL RBC (4.60-5.80) X10*6/uL Hgb (14.0-18.0) g/dl Hct (42.0-52.0) % MCV (80.0-98.0) fL MCH (27.0-33.0) pg MCHC (31.0-36.0) g/dl RDW (11.0-16.0) % Plt Count (160-400) X10*3/uL MPV (9.4-12.4) fL Immature Gran % (Auto) (0.0-0.4) % Neut % (Auto) (45-73) % Lymph % (Auto) (20-40) % [place] % (Auto) (2-11) % Eos % (Auto) (0-4) % Baso % (Auto) (0-2) % Lymph # (Auto) (1.2-4.9) X10*3/uL [place] # (Auto) (0.1-1.2) X10*3/uL Eos # (Auto) (0.0-0.4) X10*3/uL Baso # (Auto) (0.0-0.2) X10*3/uL Abs Immat Gran (auto) (0.00-0.03) X10*3/uL Absolute Neuts (auto) (2.0-8.3) x10*3/uL Absolute Nucleated RBC (0.0-0.012) X10*3/uL Nucleated RBC % (auto) (0.0-0.2) /100WBC PT 13.0 (9.9-13.0) SEC INR 1.1 (0.9-1.1) Sodium (135-145) mmol/L Potassium (3.3-5.1) mmol/L Chloride (96-108) mmol/L Carbon Dioxide (22-29) mmol/L Anion Gap (12-20) BUN (9-16) mg/dL Creatinine (0.5-1.4) mg/dL Estim Creat Clear Calc Estimated GFR Random Glucose (60-115) mg/dL Lactic Acid (0.5-2.0) mmol/L Calcium (8.4-10.2) mg/dL Magnesium (1.6-2.6) mg/dL Total Bilirubin (0.0-1.0) mg/dL AST (5-37) U/L ALT (0-40) U/L Alkaline Phosphatase (39-117) U/L Ammonia 18 (13-55) umol/L Total Creatine Kinase (38-174) U/L Troponin I High Sens (<3.5-35.0) ng/L B-Natriuretic Peptide (<100) pg/mL Total Protein (6.5-8.0) g/dL Albumin (3.5-5.0) g/dL Lipase (8-78) U/L Urine Color Urine Appearance Urine pH (5.0-8.0) Ur Specific [place] (1.005-1.025) Urine Protein (NEG-TRACE) MG/DL Urine Glucose (UA) (NEG) MG/DL Urine Ketones (NEG) MG/DL Urine Blood (NEG) Urine Nitrite (NEG) Ur Leukocyte Esterase (NEG) Urine RBC (0) /HPF Urine WBC (0-4) /HPF Ur Squamous Epith Cells /LPF Calcium Oxalate Crystal /LPF Urine Bacteria /LPF Ur Random Sodium mmol/L Urine Creatinine mg/dL COVID-19 (KATELYNN) Negative (Negative) COVID-19 Clin Com See Note Imaging Data CT scan - head: Radiologist's impression: IMPRESSION: No acute intracranial findings. IMPRESSION: Degenerative changes. No fracture or dislocation. Emphysematous changes at the lung apices. CT scan - abdomen: Radiologist's impression: IMPRESSION: Limited exam due to motion artifact. No ascites. Upper normal-size gallbladder. Gallstones seen by ultrasound are not appreciated by CT scan. Severe atherosclerotic disease. Slightly enlarged prostate gland. Old or healing right iliac bone fracture.? ? US - abdomen: Radiologist's impression: FINDINGS: There is no ascites. There are gallstones in the gallbladder. Chest x-ray: Radiologist's impression: IMPRESSION: Mild cardiomegaly with mild CHF. ECG Data ECG #1: Attestation: I personally reviewed and interpreted this ECG as follows: ECG interpretation date: 06/23/21 ECG interpretation time: 10:45 Prior ECG tracings: available for review Interpretation: Rate: 58 Rhythm:? sinus bradycardia with PAC [place]:? left axis deviation Normal P waves.? Normal MARCIO.?? Normal QRS complex.?? ST T wave :?? nonspecific ST abnormality consistent with prior studies qTC: 418 prior studies:?December 2020 The study has been interpreted contemporaneously by me. Discharge Plan Discharge Clinical Impression: Urinary tract infection, Altered mental status, Acute kidney injury, Rhabdomyolysis, Dehydration Patient Disposition: Admitted As Inpatient
[2021-06-23 10:48] LABS: Alanine Aminotransferase 9 U/L (0-40); Albumin Level 4.3 g/dL (3.5-5.0); Alkaline Phosphatase 82 U/L (39-117); Anion Gap 14 (12-20); Aspartate Amino Transferase 19 U/L (5-37); B Type Natriuretic Peptide < 10 pg/mL (<100); Bilirubin Total 0.6 mg/dL (0.0-1.0); Blood Urea Nitrogen 70 mg/dL (9-16); Calcium 10.2 mg/dL (8.4-10.2); Carbon Dioxide 23 mmol/L (22-29); Chloride 109 mmol/L (96-108); Creatinine Clr Calc Pharmacy 25.9; Estimated Glomerular Filt Rate 22; Glucose Random 117 mg/dL (60-115); Potassium 4.7 mmol/L (3.3-5.1); Sodium 141 mmol/L (135-145); Total Protein 8.3 g/dL (6.5-8.0); Troponin-I High Sensitivity 29.6 ng/L (<3.5-35.0)
[2021-06-23 11:06] LABS: Appearance Urine CLOUDY; Color Urine YELLOW; Glucose Urine UA NEG (NEG); Leukocyte Esterase Urine 1+ (NEG); Nitrite Urine NEG (NEG); PH 5.5 (5.0-8.0); Specific Gravity - Urine >= 1.030 (1.005-1.025); UACC Culture Trigger YES; Urine Blood TRACE (NEG); Urine Ketones NEG (NEG); Urine Protein TRACE MG/DL (NEG-TRACE)
[2021-06-23 11:14] LABS: Magnesium 1.8 mg/dL (1.6-2.6)
[2021-06-23 11:16] LABS: Squamous Epithelial Cell Urine 1+ /LPF
[2021-06-23 11:17] LABS: Bacteria Urine 2+ /LPF; Calcium Oxalate Crystals Urine TRACE /LPF
[2021-06-23] MEDS: 0.9 % Sodium Chloride 1,000 ML 999 ML IV ×2 (11:42→13:22)
[2021-06-23 11:57] VITALS: TEMP 36.9
[2021-06-23 12:02] LABS: INTERNATIONAL NORM RATIO 1.1 (0.9-1.1)
[2021-06-23 12:21] LABS: Ammonia 18 umol/L (13-55)
[2021-06-23] MEDS: cefTRIAXone sodium 1 GM in 0.9 % Sodium Chloride 50 ML IV (12:54)
[2021-06-23 13:08] LABS: COVID-19 Test Negative (Negative)
[2021-06-23 13:15] LABS: Lipase 34 U/L (8-78)
--- NOTE | 2021-06-23 13:46 | P.HPHOSP_ITS ---
History of Present Illness Date of Service: 06/23/21 Chief Complaint: Altered mentation A 65 years old male with PMH of alcohol abuse, GERD, cardiomyopathy, seizure disorder who presents to the hospital via EMS after being found encephalopathic. History was taken from ED providers, EMS papers as his neighbor found him encephalopathic and called EMS to evaluate him. He reports that the patient has been encephalopathic for a week and that has been getting worse associated with weakness. The patient himself was totally obtunded at time of presentation, barely withdrawing from pain and answering with nausea is only. Vital signs fairly stable. Blood work showed an evidence of acute kidney injury, elevated CK level and evidence of urine infection. He will be admitted for further evaluation and treatment. Review of Systems Review of Systems: Unable to provide as he is obtunded. Nonverbal. [facility] Medical History Alcohol abuse Cardiomyopathy Cirrhosis, alcoholic GERD (gastroesophageal reflux disease) Hepatitis C antibody positive in blood Hypertension Seizure Family History Father No problems noted. Mother No problems noted. Brother Cancer Sister No problems noted. Surgical History No pertinent past surgical history Social History Household Members: Unknown / Unable to assess Housing: Unknown / Unable to assess Unable to assess alcohol history related to: Unable to respond and Unknown Alcohol intake: current Alcohol intake frequency: a few times a week Alcohol type: hard liquor Patient Tobacco Use Status: Current everyday Tobacco user Substance Use Type: Unknown Advance Directives: Yes Advance Directives on File: Yes Advance Directives Date on File: 10/11/20 service: No Current occupational status: disabled Meds Allergies Allergy/AdvReac Type Severity Reaction Status Date / Time No Known Allergies Allergy Verified 03/25/21 14:56 [No Known Allergies*] Active Medications: Current Medications Sodium Chloride (Ns) 1,000 mls @ 999 mls/hr IV .Q1H1M MILAGROS Stop: 06/23/21 14:15 Last Admin: 06/23/21 13:22 Dose: 999 mls/hr Documented by: Pharmacy Consult (Consult Rx Perform Med Rec) 1 each MISCELLANE ONCE PRN PRN Reason: Consult order Home Medications Medication Instructions Recorded Confirmed Last Taken Type atorvastatin 40 mg tablet 40 mg PO BEDTIME 04/01/20 06/23/21 Unknown History cholecalciferol (vitamin D3) 50 50 mcg PO DAILY 04/01/20 06/23/21 Unknown History mcg (2,000 unit) capsule gabapentin 600 mg tablet 600 mg PO BID 04/01/20 06/23/21 Unknown History metoprolol succinate 25 mg 25 mg PO BEDTIME 04/01/20 06/23/21 Unknown History tablet,extended release 24 hr phenytoin 50 mg chewable tablet 100 mg PO BID 04/01/20 06/23/21 Unknown History tamsulosin 0.4 mg capsule 0.4 mg PO DAILY 04/01/20 06/23/21 Unknown History umeclidinium 62.5 mcg/actuation 1 puff INHALATION DAILY 09/26/20 06/23/21 Unk nown History blister powder for inhalation (Incruse Ellipta) naltrexone 50 mg tablet 1 tab PO DAILY 06/23/21 06/23/21 Unknown History olanzapine 5 mg tablet 2.5 mg PO DAILY 06/23/21 06/23/21 Unknown History olanzapine 5 mg tablet 5 mg PO DAILY@1200,1500 06/23/21 06/23/21 Unknown History pantoprazole 20 mg tablet,delayed 20 mg PO DAILY 06/23/21 06/23/21 Unknown History release sertraline 25 mg tablet 1 tab PO DAILY 06/23/21 06/23/21 Unknown History spironolactone 25 mg tablet 2 tab PO DAILY 06/23/21 06/23/21 Unknown History Physical Exam Vital Signs and Narrative: Vital Signs: Last Vital Signs Temp 98.5 F 06/23/21 11:57 Pulse 66 06/23/21 10:35 Resp 22 H 06/23/21 10:09 BP 110/89 06/23/21 10:09 Pulse Ox 95 06/23/21 10:29 BMI result Body Mass Index 27.8 Const: Other: Constitutional : Obtunded, withdrawal from pain not in distress Neck : Normal inspection, Supple Cardiovascular : RRR, S1 S2, no lower extremity edema Respiratory : Fair bilateral air entry, no crackles, wheezes or rhonchi Gastrointestinal: soft, lax, Normal bowel sounds, Non tender or ascites Skin : Warm, Dry Neurological : Encephalopathic, pupils responsive to light, GCS of 8-9, No focal deficit Results Labs CBC and Chem 7: 06/24/21 06:54 06/24/21 06:54 Labs: Laboratory Results - last 24 hr 06/23/21 06/23/21 06/23/21 10:22 10:22 10:22 MCV 93.3 MCH 30.6 MCHC 32.9 RDW 12.8 Plt Count 263 MPV 8.9 L Immature Gran % (Auto) 0.3 Neut % (Auto) 65.7 Lymph % (Auto) 24.5 [place] % (Auto) 7.5 Eos % (Auto) 1.7 Baso % (Auto) 0.3 Lymph # (Auto) 3.1 [place] # (Auto) 0.9 Eos # (Auto) 0.2 Baso # (Auto) 0.0 Abs Immat Gran (auto) 0.04 H Absolute Neuts (auto) 8.2 Absolute Nucleated RBC 0.000 Nucleated RBC % (auto) 0.0 PT INR Anion Gap 14 Estim Creat Clear Calc 25.9 Estimated GFR 22 Random Glucose 117 H Lactic Acid 1.0 Calcium 10.2 Magnesium 1.8 Total Bilirubin 0.6 AST 19 ALT 9 Alkaline Phosphatase 82 Ammonia Total Creatine Kinase 1765 H D B-Natriuretic Peptide Total Protein 8.3 H Albumin 4.3 Lipase 34 Urine Color Urine Appearance Urine pH Ur Specific [place] Urine Protein Urine Glucose (UA) Urine Ketones Urine Blood Urine Nitrite Ur Leukocyte Esterase Urine RBC Urine WBC Ur Squamous Epith Cells Calcium Oxalate Crystal Urine Bacteria COVID-19 (KATELYNN) COVID-19 Clin Com 06/23/21 06/23/21 06/23/21 10:22 10:57 11:39 MCV MCH MCHC RDW Plt Count MPV Immature Gran % (Auto) Neut % (Auto) Lymph % (Auto) [place] % (Auto) Eos % (Auto) Baso % (Auto) Lymph # (Auto) [place] # (Auto) Eos # (Auto) Baso # (Auto) Abs Immat Gran (auto) Absolute Neuts (auto) Absolute Nucleated RBC Nucleated RBC % (auto) PT 13.0 INR 1.1 Anion Gap Estim Creat Clear Calc Estimated GFR Random Glucose Lactic Acid Calcium Magnesium Total Bilirubin AST ALT Alkaline Phosphatase Ammonia Total Creatine Kinase B-Natriuretic Peptide < 10 Total Protein Albumin Lipase Urine Color YELLOW Urine Appearance CLOUDY Urine pH 5.5 Ur Specific [place] >= 1.030 H Urine Protein TRACE Urine Glucose (UA) NEG Urine Ketones NEG Urine Blood TRACE Urine Nitrite NEG Ur Leukocyte Esterase 1+ H Urine RBC 5-9 H Urine WBC 76-150 H Ur Squamous Epith Cells 1+ Calcium Oxalate Crystal TRACE Urine Bacteria 2+ COVID-19 (KATELYNN) COVID-19 Clin Com 06/23/21 06/23/21 11:39 11:55 MCV MCH MCHC RDW Plt Count MPV Immature Gran % (Auto) Neut % (Auto) Lymph % (Auto) [place] % (Auto) Eos % (Auto) Baso % (Auto) Lymph # (Auto) [place] # (Auto) Eos # (Auto) Baso # (Auto) Abs Immat Gran (auto) Absolute Neuts (auto) Absolute Nucleated RBC Nucleated RBC % (auto) PT INR Anion Gap Estim Creat Clear Calc Estimated GFR Random Glucose Lactic Acid Calcium Magnesium Total Bilirubin AST ALT Alkaline Phosphatase Ammonia 18 Total Creatine Kinase B-Natriuretic Peptide Total Protein Albumin Lipase Urine Color Urine Appearance Urine pH Ur Specific [place] Urine Protein Urine Glucose (UA) Urine Ketones Urine Blood Urine Nitrite Ur Leukocyte Esterase Urine RBC Urine WBC Ur Squamous Epith Cells Calcium Oxalate Crystal Urine Bacteria COVID-19 (KATELYNN) Negative COVID-19 Clin Com See Note Imaging Radiologist's Impressions: Impressions Chest X-Ray 06/23/21 10:47 IMPRESSION: Mild cardiomegaly with mild CHF. Abdomen Ultrasound 06/23/21 11:21 IMPRESSION: No ascites. Cervical Spine CT 06/23/21 11:26 IMPRESSION: Degenerative changes. No fracture or dislocation. Emphysematous changes at the lung apices. Fleischner guidelines were followed. Head CT 06/23/21 11:26 IMPRESSION: No acute intracranial findings. Abdomen/Pelvis CT 06/23/21 12:31 IMPRESSION: Limited exam due to motion artifact. No ascites. Upper normal-size gallbladder. Gallstones seen by ultrasound are not appreciated by CT scan. Severe atherosclerotic disease. Slightly enlarged prostate gland. Old or healing right iliac bone fracture. Fleischner guidelines were followed. Assessment and Plan (1) Urinary tract infection: Status: Acute (2) Rhabdomyolysis: Status: Acute (3) Acute kidney injury: Status: Acute (4) Toxic metabolic encephalopathy: Status: Acute Plan A 65 years old male with PMH of alcohol abuse, GERD, cardiomyopathy, seizure disorder who presents to the hospital via EMS after being found encephalopathic. Toxic metabolic encephalopathy Multifactorial, infection, Robbie I, medications Correct underlying problems Recurrent redirection Hold gabapentin UTI Pending urine culture Continue ceftriaxone Acute kidney injury, rhabdomyolysis Seems prerenal Get urine sodium and creatinine Hold nephrotoxic medications Start IV fluid Follow BMP and CK Monitor urine intake and output Get Nephrology evaluation Diastolic CHF, chronic CXR showing small pleural effusion and vascular congestion O2 sat 98% on room BNP below 10 Hold Lasix Monitor BNP, urine output History alcohol abuse No alcohol in his system CIWA protocol, to start phenobarbital if start withdrawal History of seizure disorder Start phenytoin IV for now Hypertension Hold lisinopril, Lasix and spironolactone Continue metoprolol to use amlodipine if high readings Psychiatric disorder continue olanzapine home dose DVT PPX Heparin Quality Stroke Does the patient have a stroke diagnosis?: No VTE Prior VTE?: No VTE Risk Level:: Medical - moderate - high VTE Device Contraindication: Treatment Not Indicated VTE Drug Contraindication: N/A - Med Ordered
--- NOTE | 2021-06-23 13:50 | PHA.MEDREC ---
Pharmacy Consult ? Medication Reconciliation Pharmacy has completed the medication reconciliation. Pt not able to be woken up when I went to speak to him, called his primary contact Ashwin who stated he did not help him with his medications. Claim history is recent. Mayra Youssef, PharmD
[2021-06-23 14:05] VITALS: BP 146/54; PULSE 71; RESP 12; O2SAT 99
[2021-06-23] MEDS: 0.9 % Sodium Chloride 1,000 ML 100 ML IVCONT ×2 (14:09→23:49)
[2021-06-23] MEDS: Phenytoin Sodium 100 MG/2 ML VIAL IVPUSH ×2 (14:26→22:00)
[2021-06-23 14:28] LABS: Troponin-I High Sensitivity 35.4 ng/L (<3.5-35.0)
--- NOTE | 2021-06-23 14:30 | PC.NURSE ---
pt incontinent of urine, placed a [place] cath on him.
--- NOTE | 2021-06-23 21:26 | PC.NURSE ---
pt given a urinal and he attempted to use it- pt urinated on himself. residual volume on bladder scan in the 300s- MD. forte notified and verbal order to place vizcaino. pt appears altered, hallucinating, ,he is picking at the air, unable to follow direction and continually pulling at wires and attempting to get up
[2021-06-23] MEDS: Heparin Sodium,Porcine 5,000 UNIT/ML VIAL 5000 UNIT SUBCUT (22:00)
[2021-06-24 00:50] VITALS: BP 173/77; PULSE 72; RESP 15; O2SAT 96
[2021-06-24] MEDS: OLANZapine 10 MG VIAL 5 MG IM (03:33)
[2021-06-24 05:15] VITALS: BP 170/82; PULSE 69; RESP 21; O2SAT 96
[2021-06-24 07:09] LABS: Hematocrit 34.4 % (42.0-52.0); Mean Corpuscular Hemoglobin 30.1 pg (27.0-33.0); Mean Platelet Volume 9.2 fL (9.4-12.4); Platelet Count 270 X10*3/uL (160-400); Red Blood Count 3.66 X10*6/uL (4.60-5.80); Red Cell Distribution Width 12.4 % (11.0-16.0); White Blood Count 9.6 X10*3/uL (4.8-10.8)
[2021-06-24 07:39] VITALS: BP 194/72; PULSE 65; RESP 19; O2SAT 98
[2021-06-24 07:43] LABS: Anion Gap 12 (12-20); Blood Urea Nitrogen 42 mg/dL (9-16); Calcium 8.9 mg/dL (8.4-10.2); Carbon Dioxide 20 mmol/L (22-29); Chloride 116 mmol/L (96-108); Creatinine Clr Calc Pharmacy 68.1; Estimated Glomerular Filt Rate > 60; Glucose Random 78 mg/dL (60-115); Potassium 4.8 mmol/L (3.3-5.1); Sodium 143 mmol/L (135-145)
[2021-06-24] MEDS: Thiamine HCL 100 MG TABLET PO (09:06)
[2021-06-24] MEDS: OLANZapine 2.5 MG TABLET PO (09:07)
[2021-06-24] MEDS: Phenytoin Chewable 50 MG TAB.CHEW 100 MG PO ×2 (09:07→21:09)
[2021-06-24] MEDS: Folic Acid 1 MG TABLET PO (09:07)
[2021-06-24] MEDS: Tamsulosin HCL 0.4 MG CAPSULE PO (09:07)
[2021-06-24] MEDS: amLODIPine Besylate 5 MG TABLET PO (09:07)
[2021-06-24] MEDS: Naltrexone HCl 50 MG TABLET PO (09:07)
[2021-06-24] MEDS: Sertraline HCL 25 MG TABLET PO (09:07)
[2021-06-24] MEDS: Omeprazole 40 MG CAPSULE.DR PO (09:07)
[2021-06-24] MEDS: Phenytoin Sodium 100 MG/2 ML VIAL IVPUSH ×2 (09:07→21:11)
[2021-06-24] MEDS: Heparin Sodium,Porcine 5,000 UNIT/ML VIAL 5000 UNIT SUBCUT ×2 (09:08→21:02)
[2021-06-24] MEDS: 0.9 % Sodium Chloride Flush 3 ML SYRINGE IVFLUSH ×2 (09:08→23:55)
[2021-06-24] MEDS: 0.9 % Sodium Chloride 1,000 ML 100 ML IVCONT ×2 (09:15→21:08)
--- NOTE | 2021-06-24 09:17 | P.CDIC_ITS ---
CDI Concurrent Query Documentation Clarification: PHYSICIAN'S DOCUMENTATION REQUEST Date of Query: 06/24/21 0917 Patient Name: Lloyd Molina Admit Date: 06/23/21 Dear Doctor, A review of the medical record indicates additional documentation may be needed. Please review below and update the documentation accordingly. Risk Factors/Clinical Indicators/Treatments ED: 06/23 - CXR shows mild cardiomegaly with mild CHF, ? pleural effusion. Furosemide home med. BNP <10 Based on the above, could you clarify in the Progress Notes the appropriate diagnosis, if significant, that supports the above abnormalities and additional evaluation, monitoring, and/or treatment rendered: * Chronic diastolic and/or systolic CHF Treating, rule out, resolved etc. * Acute on chronic diastolic and/or systolic CHF * Other (please specify) * Unable to determine Use of terms such as suspected, likely, concern for, or probable (associated with a specific diagnosis that is being evaluated, monitored, or treated as if it exists) are acceptable and can be coded in the inpatient setting, when documented at the time of discharge. Thank you, Nessa Mckeon [facility],CDIS Extension: [phone] Please use your independent medical judgment in providing your response. THIS QUERY IS PART OF THE PERMANENT MEDICAL RECORD Provider Response: Other Other Diagnosis: Unable to determine, to investigate
--- NOTE | 2021-06-24 11:02 | PC.NURSE ---
Pt sleeping, but awakens on his own. Pt has vizcaino in place with clear yellow urine, Fluids running as per MAR orders. NSR on monitor in the 80's. Pt confused, garbled speech. Bed alarm on, call mcconnell within reach. Will continue to monitor.
--- NOTE | 2021-06-24 12:32 | P.PNIM_ITS ---
Subjective Subjective Date of Service: 06/24/21 Interval History: Seen and evaluated this morning Confused, interactive and alert Asking to go home as he has money and he does not want to give it to me Hallucinating visually and trying to move stuff on his bed No reported overnight events Review of Systems No fever, chills or weakness No chest pain, palpitation No shortness of breath or coughing No abdominal pain, nausea or vomiting No urinary symptoms No any rash or wounds Physical Exam Vital Signs: Vital Signs: Last Vital Signs Temp 98.5 F 06/23/21 11:57 Pulse 65 06/24/21 07:39 Resp 19 06/24/21 07:39 BP 194/72 H 06/24/21 07:39 Pulse Ox 98 06/24/21 07:39 BMI result Body Mass Index 27.8 Const: Other: Constitutional : Obtunded, withdrawal from pain not in distress Neck : Normal inspection, Supple Cardiovascular : RRR, S1 S2, no lower extremity edema Respiratory : Fair bilateral air entry, no crackles, wheezes or rhonchi Gastrointestinal: soft, lax, Normal bowel sounds, Non tender or ascites Skin : Warm, Dry Neurological : Encephalopathic, pupils responsive to light, GCS of 8-9, No focal deficit Objective Data Active Medications Acetaminophen (Acetaminophen 325 Mg Tablet) 650 mg PO Q6H PRN PRN Reason: Pain, Mild (Pain Scale 1-3) Atorvastatin Calcium (Atorvastatin Calcium 40 Mg Tablet) 40 mg PO BEDTIME [facility] Folic Acid (Folic Acid 1 Mg Tablet) 1 mg PO DAILY [facility] Last Admin: 06/24/21 09:07 Dose: 1 mg Documented by: MARCELINO Heparin Sodium (Porcine) (Heparin Sodium,Porcine 5,000 Unit/Ml Vial) 5,000 unit SUBCUT Q12H [facility] Last Admin: 06/24/21 09:08 Dose: 5,000 unit Documented by: MARCELINO Sodium Chloride (Ns) 1,000 mls @ 100 mls/hr IVCONT .Q10H [facility] Last Admin: 06/24/21 09:15 Dose: 100 mls/hr Documented by: MARCELINO Ceftriaxone Sodium 1 gm/ (Sodium Chloride) 50 mls @ 100 mls/hr IV Q24H [facility] Metoprolol Succinate (Metoprolol Succinate Er 25 Mg Tab.Er.24h) 25 mg PO BEDTIME [facility]; Protocol Naltrexone HCl (Naltrexone Hcl 50 Mg Tablet) 50 mg PO DAILY [facility] Last Admin: 06/24/21 09:07 Dose: 50 mg Documented by: MARCELINO Olanzapine (Olanzapine 2.5 Mg Tablet) 2.5 mg PO DAILY [facility] Last Admin: 06/24/21 09:07 Dose: 2.5 mg Documented by: MARCELINO Olanzapine (Olanzapine 5 Mg Tablet) 5 mg PO DAILY@1200,1500 [facility] Omeprazole (Omeprazole 40 Mg Capsule.Dr) 40 mg PO DAILY@0630 [facility] Last Admin: 06/24/21 09:07 Dose: 40 mg Documented by: MARCELINO Ondansetron HCl (Ondansetron Hcl 4 Mg/2 Ml Vial) 4 mg IVPUSH Q8H PRN PRN Reason: Nausea and Vomiting Pharmacy Consult (Consult Rx Perform Med Rec) 1 each MISCELLANE ONCE PRN PRN Reason: Consult order Phenytoin (Phenytoin Chewable 50 Mg Tab.Chew) 100 mg PO BID [facility] Last Admin: 06/24/21 09:07 Dose: 100 mg Documented by: MRACELINO Phenytoin Sodium (Phenytoin Sodium 100 Mg/2 Ml Vial) 100 mg IVPUSH BID [facility] Last Admin: 06/24/21 09:07 Dose: 100 mg Documented by: MARCELINO Sertraline HCl (Sertraline Hcl 25 Mg Tablet) 25 mg PO DAILY [facility] Last Admin: 06/24/21 09:07 Dose: 25 mg Documented by: MARCELINO Sodium Chloride (0.9 % Sodium Chloride Flush 3 Ml Syringe) 3 ml IVFLUSH QSHIFT [facility] Last Admin: 06/24/21 09:08 Dose: 3 ml Documented by: MARCELINO Tamsulosin HCl (Tamsulosin Hcl 0.4 Mg Capsule) 0.4 mg PO DAILY [facility] Last Admin: 06/24/21 09:07 Dose: 0.4 mg Documented by: MARCELINO Thiamine HCl (Thiamine Hcl 100 Mg Tablet) 100 mg PO DAILY [facility] Last Admin: 06/24/21 09:06 Dose: 100 mg Documented by: MARCELINO Labs CBC & Chem 7: 06/24/21 06:54 06/24/21 06:54 Labs: Laboratory Results - last 24 hr 06/23/21 06/23/21 06/23/21 10:22 10:57 11:55 MCV MCH MCHC RDW Plt Count MPV Absolute Nucleated RBC Nucleated RBC % (auto) Anion Gap Estim Creat Clear Calc Estimated GFR Random Glucose Calcium Total Creatine Kinase Lipase 34 Ur Random Sodium 64.0 Urine Creatinine 330.46 COVID-19 (KATELYNN) Negative COVID-19 Clin Com See Note 06/24/21 06/24/21 06:54 06:54 MCV 94.0 MCH 30.1 MCHC 32.0 RDW 12.4 Plt Count 270 MPV 9.2 L Absolute Nucleated RBC 0.000 Nucleated RBC % (auto) 0.0 Anion Gap 12 Estim Creat Clear Calc 68.1 Estimated GFR > 60 Random Glucose 78 Calcium 8.9 D Total Creatine Kinase 2669 H D Lipase Ur Random Sodium Urine Creatinine COVID-19 (KATELYNN) COVID-19 Clin Com Microbiology Microbiology Results: Microbiology 06/23/21 10:22 Blood Culture - Preliminary Blood - Venous No growth after 24 hours. 06/23/21 11:39 Urine Culture - Preliminary Urine Catheterized - Straight Catheter Gram negative stacey Assessment and Plan (1) Toxic metabolic encephalopathy: Status: Acute (2) Urinary tract infection: Status: Acute (3) Acute kidney injury: Status: Acute (4) Rhabdomyolysis: Status: Acute (5) Hallucination: Status: Acute Plan A 65 years old male with PMH of alcohol abuse, GERD, cardiomyopathy, seizure disorder who presents to the hospital via EMS after being found encephalopathic. Toxic metabolic encephalopathy Multifactorial, infection, Robbie I, medications More alert and interactive Recurrent redirection Hold gabapentin UTI Pending urine culture Continue ceftriaxone Hallucinations Could be secondary to psych problem as is not taking medications as prescribed continue with as a being for now To get psychiatry evaluation Acute kidney injury, rhabdomyolysis Seems prerenal Improving, CK still elevated at 2000 Hold nephrotoxic medications Continue IV fluid Follow BMP and CK Monitor urine intake and output Nephrology input appreciated Diastolic CHF, chronic CXR showing small pleural effusion and vascular congestion O2 sat 98% on room BNP below 10 Hold Lasix Monitor BNP, urine output History alcohol abuse No alcohol in his system CIWA protocol, to start phenobarbital if start withdrawal History of seizure disorder Restart p.o. phenytoin Hypertension Hold lisinopril, Lasix and spironolactone Continue metoprolol to use amlodipine if high readings Psychiatric disorder continue olanzapine home dose DVT PPX Heparin Quality Stroke Does the patient have a stroke diagnosis?: No VTE Prior VTE?: No VTE Risk Level:: Medical - moderate - high VTE Device Contraindication: Treatment Not Indicated VTE Drug Contraindication: N/A - Med Ordered
[2021-06-24] MEDS: cefTRIAXone sodium 1 GM in 0.9 % Sodium Chloride 50 ML IV (13:17)
[2021-06-24] MEDS: OLANZapine 5 MG TABLET PO (13:20)
--- NOTE | 2021-06-24 15:28 | PM.PSYCN ---
History of Present Illness Date of Service: 04/23/22 Chief Complaint: Encephalopathy, FABIENNE, rhabdo Reason for Consult: medication management Requesting physician: Oscar Jones Discussed with referring provider: Yes Sources of Information: patient interviewed and chart reviewed HPI Narrative: Lloyd is a 65 y.o. male who presented to [facility] ED on 04/22/22 after his neighbor found him encephalopathic and called EMS to evaluate him. He presented as obtunded, weak, and lab work showed FABIENNE. Found to have UTI, rhadbomyolysis. He has PMH of alcohol use disorder, GERD, cardiomyopathy, and seizure disorder. Pt was admitted to [facility] for further management. His gabapentin 600 mg BID was discontinued due to altered mental status. Blood alcohol concentration was negative, however CIWA protocol was initiated. On IV phenytoin for seizure prophylaxis.? Psych consult placed due to pt presenting as confused, agitated, hallucinating i.e. trying to move stuff on his bed, per hospitalist note ?asking to go home as he has money and he does not want to give it to me.? Pt on home olanzapine dose of 5 mg BID and 2.5 mg QHS and sertraline 25 mg QD. I attempted to evaluate the pt at the bedside with stitching department supervisor. Pt reports ?I dont feel good,? however throughout the brief interview pt was confused, disoriented, and making non-sensical statements to the point that the intranet developer was unable to translate. Pt was soft spoken, somewhat dysarthric, and unaware of his surroundings. Pt was scratching his genitals at times, grasping at his pillow, appearing to be looking for something, and was unable to be redirected. He did not respond to questions appropriately and when offered food or fluids he continued to make nonsensical statements.? Past Psychiatric History: Unknown, alcohol use disorder chronic Medical Evaluation Reviewed: Yes [facility] Medical History (Updated 06/25/21 @ 12:37 by Sonido Abdullahi MD) Alcohol abuse Cardiomyopathy GERD (gastroesophageal reflux disease) Hepatitis C antibody positive in blood Hypertension Seizure Surgical History No pertinent past surgical history Family History: Unknown Social History: The patient lives alone, he is mostly Irish speaking, unemployed on disability. Trauma History: Unknown Diagnostics Vital Signs (24Hr): Vital Signs - 24 hr 06/24/21 00:50 06/24/21 05:15 06/24/21 07:39 Pulse Rate 72 69 65 Respiratory Rate 15 21 H 19 Blood Pressure 173/77 H 170/82 H 194/72 H Pulse Oximetry 96 96 98 BMI result Body Mass Index 27.8 Labs Results: 06/26/21 05:44 06/26/21 05:44 Labs: Laboratory Results - last 48 hr 06/23/21 06/23/21 06/23/21 10:22 10:22 10:22 WBC 12.5 H RBC 3.72 L Hgb 11.4 L Hct 34.7 L MCV 93.3 MCH 30.6 MCHC 32.9 RDW 12.8 Plt Count 263 MPV 8.9 L Immature Gran % (Auto) 0.3 Neut % (Auto) 65.7 Lymph % (Auto) 24.5 [place] % (Auto) 7.5 Eos % (Auto) 1.7 Baso % (Auto) 0.3 Lymph # (Auto) 3.1 [place] # (Auto) 0.9 Eos # (Auto) 0.2 Baso # (Auto) 0.0 Abs Immat Gran (auto) 0.04 H Absolute Neuts (auto) 8.2 Absolute Nucleated RBC 0.000 Nucleated RBC % (auto) 0.0 PT INR Sodium 141 Potassium 4.7 Chloride 109 H Carbon Dioxide 23 Anion Gap 14 BUN 70 H Creatinine 2.94 H Estim Creat Clear Calc 25.9 Estimated GFR 22 Random Glucose 117 H Lactic Acid 1.0 Calcium 10.2 Magnesium 1.8 Total Bilirubin 0.6 AST 19 ALT 9 Alkaline Phosphatase 82 Ammonia Total Creatine Kinase 1765 H D Troponin I High Sens B-Natriuretic Peptide Total Protein 8.3 H Albumin 4.3 Lipase 34 Urine Color Urine Appearance Urine pH Ur Specific [place] Urine Protein Urine Glucose (UA) Urine Ketones Urine Blood Urine Nitrite Ur Leukocyte Esterase Urine RBC Urine WBC Ur Squamous Epith Cells Calcium Oxalate Crystal Urine Bacteria Ur Random Sodium Urine Creatinine COVID-19 (KATELYNN) COVID-19 Clin Com 06/23/21 06/23/21 06/23/21 10:22 10:57 10:57 WBC RBC Hgb Hct MCV MCH MCHC RDW Plt Count MPV Immature Gran % (Auto) Neut % (Auto) Lymph % (Auto) [place] % (Auto) Eos % (Auto) Baso % (Auto) Lymph # (Auto) [place] # (Auto) Eos # (Auto) Baso # (Auto) Abs Immat Gran (auto) Absolute Neuts (auto) Absolute Nucleated RBC Nucleated RBC % (auto) PT INR Sodium Potassium Chloride Carbon Dioxide Anion Gap BUN Creatinine Estim Creat Clear Calc Estimated GFR Random Glucose Lactic Acid Calcium Magnesium Total Bilirubin AST ALT Alkaline Phosphatase Ammonia Total Creatine Kinase Troponin I High Sens 29.6 B-Natriuretic Peptide < 10 Total Protein Albumin Lipase Urine Color YELLOW Urine Appearance CLOUDY Urine pH 5.5 Ur Specific [place] >= 1.030 H Urine Protein TRACE Urine Glucose (UA) NEG Urine Ketones NEG Urine Blood TRACE Urine Nitrite NEG Ur Leukocyte Esterase 1+ H Urine RBC 5-9 H Urine WBC 76-150 H Ur Squamous Epith Cells 1+ Calcium Oxalate Crystal TRACE Urine Bacteria 2+ Ur Random Sodium 64.0 Urine Creatinine 330.46 COVID-19 (KATELYNN) COVID-QuesCom 06/23/21 06/23/21 06/23/21 11:39 11:39 11:55 WBC RBC Hgb Hct MCV MCH MCHC RDW Plt Count MPV Immature Gran % (Auto) Neut % (Auto) Lymph % (Auto) [place] % (Auto) Eos % (Auto) Baso % (Auto) Lymph # (Auto) [place] # (Auto) Eos # (Auto) Baso # (Auto) Abs Immat Gran (auto) Absolute Neuts (auto) Absolute Nucleated RBC Nucleated RBC % (auto) PT 13.0 INR 1.1 Sodium Potassium Chloride Carbon Dioxide Anion Gap BUN Creatinine Estim Creat Clear Calc Estimated GFR Random Glucose Lactic Acid Calcium Magnesium Total Bilirubin AST ALT Alkaline Phosphatase Ammonia 18 Total Creatine Kinase Troponin I High Sens B-Natriuretic Peptide Total Protein Albumin Lipase Urine Color Urine Appearance Urine pH Ur Specific [place] Urine Protein Urine Glucose (UA) Urine Ketones Urine Blood Urine Nitrite Ur Leukocyte Esterase Urine RBC Urine WBC Ur Squamous Epith Cells Calcium Oxalate Crystal Urine Bacteria Ur Random Sodium Urine Creatinine COVID-19 (KATELYNN) Negative COVID-19 [employer] See Note 06/23/21 06/24/21 06/24/21 14:04 06:54 06:54 WBC 9.6 RBC 3.66 L Hgb 11.0 L Hct 34.4 L MCV 94.0 MCH 30.1 MCHC 32.0 RDW 12.4 Plt Count 270 MPV 9.2 L Immature Gran % (Auto) Neut % (Auto) Lymph % (Auto) [place] % (Auto) Eos % (Auto) Baso % (Auto) Lymph # (Auto) [place] # (Auto) Eos # (Auto) Baso # (Auto) Abs Immat Gran (auto) Absolute Neuts (auto) Absolute Nucleated RBC 0.000 Nucleated RBC % (auto) 0.0 PT INR Sodium 143 Potassium 4.8 Chloride 116 H Carbon Dioxide 20 L Anion Gap 12 BUN 42 H Creatinine 1.12 Estim Creat Clear Calc 68.1 Estimated GFR > 60 Random Glucose 78 Lactic Acid Calcium 8.9 D Magnesium Total Bilirubin AST ALT Alkaline Phosphatase Ammonia Total Creatine Kinase 2669 H D Troponin I High Sens 35.4 H B-Natriuretic Peptide Total Protein Albumin Lipase Urine Color Urine Appearance Urine pH Ur Specific [place] Urine Protein Urine Glucose (UA) Urine Ketones Urine Blood Urine Nitrite Ur Leukocyte Esterase Urine RBC Urine WBC Ur Squamous Epith Cells Calcium Oxalate Crystal Urine Bacteria Ur Random Sodium Urine Creatinine COVID-19 (KATELYNN) COVID-19 Clin Com Imaging Radiology Impressions: ITS Impressions Chest X-Ray 06/23/21 10:47 IMPRESSION: Mild cardiomegaly with mild CHF. Abdomen Ultrasound 06/23/21 11:21 IMPRESSION: No ascites. Cervical Spine CT 06/23/21 11:26 IMPRESSION: Degenerative changes. No fracture or dislocation. Emphysematous changes at the lung apices. Fleischner guidelines were followed. Head CT 06/23/21 11:26 IMPRESSION: No acute intracranial findings. Abdomen/Pelvis CT 06/23/21 12:31 IMPRESSION: Limited exam due to motion artifact. No ascites. Upper normal-size gallbladder. Gallstones seen by ultrasound are not appreciated by CT scan. Severe atherosclerotic disease. Slightly enlarged prostate gland. Old or healing right iliac bone fracture. Fleischner guidelines were followed. Mental Status Exam Mental Status Exam Narrative: Pt is alert but not oriented. Poor eye contact, inattentive. No Tics or Tremors. No abnormal involuntary movements. Pt is grabbing himself, grabbing his pillow, appearing to look for it. Non-pressured speech, spontaneous but low vocal volume and dysarthric. Unable to make meaningful conversation or respond to questions appropriately. Appears to be responding to internal stimuli. Thoughts are disorganized, incoherent. Suspect Wernicke's/ Korsakoff. Insight/ Judgment poor. Medications Medications Current Medications Acetaminophen (Acetaminophen 325 Mg Tablet) 650 mg PO Q6H PRN PRN Reason: Pain, Mild (Pain Scale 1-3) Atorvastatin Calcium (Atorvastatin Calcium 40 Mg Tablet) 40 mg PO BEDTIME [facility] Folic Acid (Folic Acid 1 Mg Tablet) 1 mg PO DAILY [facility] Last Admin: 06/24/21 09:07 Dose: 1 mg Documented by: Heparin Sodium (Porcine) (Heparin Sodium,Porcine 5,000 Unit/Ml Vial) 5,000 unit SUBCUT Q12H [facility] Last Admin: 06/24/21 09:08 Dose: 5,000 unit Documented by: Sodium Chloride (Ns) 1,000 mls @ 100 mls/hr IVCONT .Q10H [facility] Last Admin: 06/24/21 09:15 Dose: 100 mls/hr Documented by: Ceftriaxone Sodium 1 gm/ (Sodium Chloride) 50 mls @ 100 mls/hr IV Q24H [facility] Last Admin: 06/24/21 13:17 Dose: 100 mls/hr Documented by: Metoprolol Succinate (Metoprolol Succinate Er 25 Mg Tab.Er.24h) 25 mg PO BEDTIME [facility]; Protocol Naltrexone HCl (Naltrexone Hcl 50 Mg Tablet) 50 mg PO DAILY [facility] Last Admin: 06/24/21 09:07 Dose: 50 mg Documented by: Omeprazole (Omeprazole 40 Mg Capsule.Dr) 40 mg PO DAILY@0630 [facility] Last Admin: 06/24/21 09:07 Dose: 40 mg Documented by: Ondansetron HCl (Ondansetron Hcl 4 Mg/2 Ml Vial) 4 mg IVPUSH Q8H PRN PRN Reason: Nausea and Vomiting Pharmacy Consult (Consult Rx Perform Med Rec) 1 each MISCELLANE ONCE PRN PRN Reason: Consult order Phenytoin (Phenytoin Chewable 50 Mg Tab.Chew) 100 mg PO BID [facility] Last Admin: 06/24/21 09:07 Dose: 100 mg Documented by: Phenytoin Sodium (Phenytoin Sodium 100 Mg/2 Ml Vial) 100 mg IVPUSH BID [facility] Last Admin: 06/24/21 09:07 Dose: 100 mg Documented by: Sodium Chloride (0.9 % Sodium Chloride Flush 3 Ml Syringe) 3 ml IVFLUSH QSHIFT [facility] Last Admin: 06/24/21 09:08 Dose: 3 ml Documented by: Tamsulosin HCl (Tamsulosin Hcl 0.4 Mg Capsule) 0.4 mg PO DAILY [facility] Last Admin: 06/24/21 09:07 Dose: 0.4 mg Documented by: Thiamine HCl (Thiamine Hcl 100 Mg Tablet) 100 mg PO DAILY [facility] Last Admin: 06/24/21 09:06 Dose: 100 mg Documented by: Allergies Allergies Allergy/AdvReac Type Severity Reaction Status Date / Time No Known Allergies Allergy Verified 03/25/21 14:56 [No Known Allergies*] Assessment & Plan Assessment & Plan (1) Hallucination: Status: Acute Code(s): R44.3 - Hallucinations, unspecified (2) Toxic metabolic encephalopathy: Status: Acute Code(s): G92.8 - Other toxic encephalopathy (3) Acute kidney injury: Status: Acute Code(s): N17.9 - Acute kidney failure, unspecified (4) Altered mental status: Status: Acute Code(s): R41.82 - Altered mental status, unspecified (5) Seizure: Status: Acute Code(s): R56.9 - Unspecified convulsions (6) Dementia: Status: Acute Code(s): F03.90 - Unspecified dementia without behavioral disturbance (7) Alcohol abuse: Status: Acute Code(s): F10.10 - Alcohol abuse, uncomplicated (8) Rhabdomyolysis: Status: Acute Code(s): M62.82 - Rhabdomyolysis Plan Pt continues to present with altered mental status, confusion, and possibly responding to internal stimuli. Per chart, pt has hx of med non-adherence. He lives alone and has minimal social supports other than a cousin who comes to the home and helps care for him. He has had multiple admissions to [facility] for similar presentation i.e. being found in community unresponsive and with encephalopathy, alcohol abuse, question of Wernicke?s/ Korskoff (treated with thiamine). His cousin has reported at baseline in context of sobriety, pt is less confused and able to live fairly independently, ambulates with cane. During a previous admission, pt was referred to a SNF, however the bed was let go as his cousin was agreeable to help care for him in the home. Plan: Will discontinue olanzapine 5 mg BID and 2.5 mg QHS and instead start zydis 20 mg QHS, as this will simplify his regimen and promote adherence, the higher dose may be more effective for clearing psychotic sx and helping with sleep. Will discontinue sertraline, as this may be contributing to disorientation/ confusion. Discussed with CM referral for VNA services to help with med adherence and monitoring pt safety in the home.? I spent minutes with the patient and/or on the patient floor today, greater than?50% of which was spent counseling/coordinating care. Patient educated on: diagnosis, medication risk/benefits and therapeutic strategies Informed Consent: understands
--- NOTE | 2021-06-24 18:08 | PC.NURSE ---
Pt agitated, attempting to hit and bite staff, pulling on vizcaino and IV line, urine is now cranberry colored, made aware, asked for PRN order for sedative, no reply from MD at this time. Large BM, pt cleaned with an assist of 4 staff members. Call mcconnell within reach, bed alarm on. Will continue to monitor.
[2021-06-24] MEDS: OLANZapine ODT 10 MG TAB.RAPDIS 20 MG TRANSLINGU (18:40)
--- NOTE | 2021-06-24 18:42 | PC.NURSE ---
Pt medicated with 20mg PO zyprexa 2100 dose at this time per [facility] orders.
--- NOTE | 2021-06-24 18:44 | PM.EVENT ---
Event Note Date of Service: 06/24/21 Event Note: Very agitated, hallucinating and pulling on tubes, including vizcaino catheter that is now causing hematuria.and has attempted hitting staff. He is confused and not readirectable Will give Bed time Xyprexa now and Hydroxyzine for anxiety and if continue to be unmanageable may need Haldol and if physical restraint as last resort.. Last Qtc was Ok, once feasible obtain ECG to [place] assess QTc
[2021-06-24] MEDS: hydrOXYzine HCL 50 MG/ML VIAL 25 MG IM (21:03)
[2021-06-24] MEDS: Atorvastatin Calcium 40 MG TABLET PO (21:10)
[2021-06-24] MEDS: Metoprolol Succinate ER 25 MG TAB.ER.24H PO (21:10)
[2021-06-25] VITALS (7 sets, daily range): BP systolic 143–191; BP diastolic 70–99; PULSE 68–100; RESP 15–18; TEMP 36.4–37.1; O2SAT 92–100; BMI 27.8
[2021-06-25] MEDS: 0.9 % Sodium Chloride 1,000 ML 100 ML IVCONT (06:05)
[2021-06-25 06:24] LABS: Anion Gap 12 (12-20); Blood Urea Nitrogen 20 mg/dL (9-16); Calcium 9.1 mg/dL (8.4-10.2); Carbon Dioxide 21 mmol/L (22-29); Chloride 113 mmol/L (96-108); Estimated Glomerular Filt Rate > 60; Glucose Random 84 mg/dL (60-115); Potassium 4.8 mmol/L (3.3-5.1); Sodium 141 mmol/L (135-145)
[2021-06-25] MEDS: Phenytoin Chewable 50 MG TAB.CHEW 100 MG PO (07:50)
[2021-06-25] MEDS: Omeprazole 40 MG CAPSULE.DR PO (07:50)
[2021-06-25] MEDS: Folic Acid 1 MG TABLET PO (07:51)
[2021-06-25] MEDS: Naltrexone HCl 50 MG TABLET PO (07:51)
[2021-06-25] MEDS: Tamsulosin HCL 0.4 MG CAPSULE PO (07:51)
[2021-06-25] MEDS: Thiamine HCL 100 MG TABLET PO (07:51)
[2021-06-25] MEDS: Heparin Sodium,Porcine 5,000 UNIT/ML VIAL 5000 UNIT SUBCUT ×2 (07:52→21:34)
[2021-06-25] MEDS: Phenytoin Sodium 100 MG/2 ML VIAL IVPUSH ×2 (07:52→21:34)
--- NOTE | 2021-06-25 09:47 | MHC.CLN ---
NUTRITION REVIEW OF WEIGHT HISTORY SHOWS WEIGHT GAIN X 11 MONTHS +11.2%.
--- NOTE | 2021-06-25 09:50 | PM.PNNEP ---
Subjective Subjective Date of Service: 06/25/21 Interval history: Events noted Sleepy Physical Exam Vital Signs: Vital Signs: Last Vital Signs Temp 98.3 F 06/25/21 08:00 Pulse 100 06/25/21 08:00 Resp 15 06/25/21 08:00 BP 144/70 H 06/25/21 08:00 Pulse Ox 92 06/25/21 08:00 BMI result Body Mass Index 27.8 Const: Other: Constitutional : Obtunded, withdrawal from pain not in distress Neck : Normal inspection, Supple Cardiovascular : RRR, S1 S2, no lower extremity edema Respiratory : Fair bilateral air entry, no crackles, wheezes or rhonchi Gastrointestinal: soft, lax, Normal bowel sounds, Non tender or ascites Skin : Warm, Dry Neurological : Encephalopathic, pupils responsive to light, GCS of 8-9, No focal deficit Objective Data Labs CBC & Chem 7: 06/24/21 06:54 06/25/21 05:36 Labs: Laboratory Results - last 24 hr 06/25/21 05:36 Sodium 141 Potassium 4.8 Chloride 113 H Carbon Dioxide 21 L Anion Gap 12 BUN 20 H D Creatinine 0.83 Estim Creat Clear Calc 92.0 Estimated GFR > 60 Random Glucose 84 Calcium 9.1 Microbiology Microbiology Results: Microbiology 06/23/21 11:39 Urine Catheterized - Straight Catheter Urine Culture - Final Escherichia coli 06/23/21 10:22 Blood - Venous Blood Culture - Final Coag negative Staphylococcus 06/23/21 10:57 Blood - Venous Blood Culture - Preliminary No growth after 24 hours. Procedures Date of Service Date of Service: 06/25/21 Assessment & Plan Assessment and plan (1) Toxic metabolic encephalopathy: Status: Acute (2) Urinary tract infection: Status: Acute (3) Acute kidney injury: Status: Acute (4) Rhabdomyolysis: Status: Acute (5) Hallucination: Status: Acute Plan A 65 years old male with PMH of alcohol abuse, GERD, cardiomyopathy, seizure disorder who presents to the hospital via EMS after being found encephalopathic. Toxic metabolic encephalopathy Multifactorial, infection, Robbie I, medications More alert and interactive Recurrent redirection Hold gabapentin Acute kidney injury, prerenal Improving, CK still elevated at 2000 - no evidnce of pigment nephropathy Hold nephrotoxic medications Continue IV fluid - since he appears dry Follow BMP and CK Monitor urine intake and output Hold Lasix History alcohol abuse Hypertension Hold lisinopril, Lasix and spironolactone Continue metoprolol use amlodipine if high readings Watch BP for now Time Spent With Patient Time: Total time spent is greater than 50% in coordination of care (as documented) at patient's floor/unit and/or counseling patient: Time with patient: 15 - 24 minutes Progress Note: Quality Stroke Does the patient have a stroke diagnosis?: No
--- NOTE | 2021-06-25 10:27 | MHC.CM.PN ---
CM CALLED PTS COUSIN/HCP, PRISCA MCCARTHY [phone] WHO REPORTS THE PT STILL LIVES ALONE BUT HE GOES TO HIS HOME DAILY TO ASSIST HIM WITH MEDICATIONS AND MEALS. HE REPORTS THE PT HAS A WALKER AND A CANE BUT NEEDS A WHEEL CHAIR. HE WAS INFORMED CM WOULD DISCUSS THIS DURING ROUNDS HOWEVER IT WOULD LIKELY HAVE TO GO TO THE PCP DUE TO INSURANCE. HE REPORTS THE PT IS ACTIVE WITH MANUEL BLACK AT [facility]. POT DOES HAVE A HCP ON FILE PRISCA REPORTS THE PT IS VACCINATED AGAINST COVID-19 X 3. IMM DELIVERED CURRENT DC PLAN IS HOME WITH RESUMPTION OF FAMILY ASSISTANCE FAMILY TO TRANSPORT
[2021-06-25] MEDS: PHENobarbitaL sodium 130 MG/ML VIAL 164 MG IM (11:21)
[2021-06-25] MEDS: cefTRIAXone sodium 1 GM in 0.9 % Sodium Chloride 50 ML IV (11:27)
--- NOTE | 2021-06-25 11:30 | CONS_ITS ---
DATE OF SERVICE: 06/24/2021 REASON FOR CONSULTATION: I was called to see this patient to assist in management of acute kidney injury. HISTORY OF PRESENT ILLNESS: To summarize, Lloyd is a 65-year-old man with history of alcohol abuse, cardiomyopathy, and seizures, who was brought in because of altered mental status. He was found to have acute kidney injury. At the time of admission, the urine specific gravity was more than 1.030. The serum creatinine was 2.94, which is elevated from the baseline. He has had IV fluids, and over the past 24 hours, serum creatinine is down to 1.12. The initial CPK was 1500, which is also trending down. PAST MEDICAL HISTORY: Ongoing medical problems include history of alcohol abuse, cardiomyopathy, cirrhosis, GERD, hepatitis C, hypertension, and seizures. FAMILY HISTORY: Not significant for admission. PAST SURGICAL HISTORY: Unremarkable. SOCIAL HISTORY: History of alcohol abuse and no other further information available. This information obtained from the chart. ALLERGIES: NO KNOWN DRUG ALLERGIES HAVE BEEN DOCUMENTED. MEDICATIONS: At time of admission include atorvastatin, cholecalciferol, gabapentin 600 b.i.d., metoprolol, phenytoin, tamsulosin, olanzapine, pantoprazole, sertraline, and spironolactone 25 mg. REVIEW OF SYSTEMS: Not obtainable from the patient because of mental status. All information obtained from the chart and the team. PHYSICAL EXAMINATION: GENERAL: Lloyd is a 65-year-old man who is sleepy, responds to pain, not in any distress. NECK: Supple. No JVD. HEENT: Mucosa is dry. LUNGS: Air entry equal. No rales. HEART: S1, S2 heard. No gallop or rub. ABDOMEN: Soft, nontender. EXTREMITIES: No edema. VITAL SIGNS: Blood pressure was 170/82. LABORATORY DATA: Sodium 143, potassium 4.8, CO2 20, BUN 42, creatinine 1.12. CPK 2669. IMPRESSION: A 65-year-old man admitted with acute kidney injury. Acute kidney injury is most likely due to volume depletion/hypoperfusion. There is no evidence of obstruction. Clinically, there is no evidence of any active glomerulonephritis. The renal function has improved with IV hydration. For now, I will continue with IV hydration, keep intake more than output and optimize his fluid status. The blood pressure is suboptimal. He might have to be started on antihypertensive. I would recommend starting him on Norvasc 5 mg and watch the blood pressure. Until renal function returns to baseline. We will hold off on spironolactone. I will follow along with the team. Andriy Najera MD BPA/MODL / [id number] MTDD
[2021-06-25] MEDS: Thiamine HCL 100 MG in 0.9 % Sodium Chloride 100 ML 202 MG IV ×2 (11:33→21:35)
--- NOTE | 2021-06-25 12:32 | HO.PM.IMPN ---
Subjective Subjective Date of Service: 06/25/21 Interval History: cc: ams interval history: confused, agitated Review of Systems Review of Systems: Yes Unobtainable due to mental condition Physical Exam Vital Signs: Vital Signs: Last Vital Signs Temp 98.3 F 06/25/21 08:00 Pulse 100 06/25/21 08:00 Resp 15 06/25/21 08:00 BP 144/70 H 06/25/21 08:00 Pulse Ox 92 06/25/21 08:00 BMI result Body Mass Index 27.8 General: Alert, confused Resp: CTA bilateral, no accessory muscles used CVS: S1,S2,RRR GI: soft, non tender, non distended Neuro: motor grossly intact, alert Psych: impaired insight Objective Data Active Medications Acetaminophen (Acetaminophen 325 Mg Tablet) 650 mg PO Q6H PRN PRN Reason: Pain, Mild (Pain Scale 1-3) Atorvastatin Calcium (Atorvastatin Calcium 40 Mg Tablet) 40 mg PO BEDTIME [facility] Last Admin: 06/24/21 21:10 Dose: 40 mg Documented by: ALEXY Folic Acid (Folic Acid 1 Mg Tablet) 1 mg PO DAILY [facility] Last Admin: 06/25/21 07:51 Dose: 1 mg Documented by: RYDER Heparin Sodium (Porcine) (Heparin Sodium,Porcine 5,000 Unit/Ml Vial) 5,000 unit SUBCUT Q12H [facility] Last Admin: 06/25/21 07:52 Dose: 5,000 unit Documented by: RYDER Hydroxyzine HCl (Hydroxyzine Hcl 50 Mg/Ml Vial) 25 mg IM Q6H PRN PRN Reason: Anxiety Last Admin: 06/24/21 21:03 Dose: 25 mg Documented by: ALEXY Sodium Chloride (Ns) 1,000 mls @ 100 mls/hr IVCONT .Q10H [facility] Last Admin: 06/25/21 06:05 Dose: 100 mls/hr Documented by: ROSLYN Ceftriaxone Sodium 1 gm/ (Sodium Chloride) 50 mls @ 100 mls/hr IV Q24H [facility] Last Infusion: 06/25/21 12:15 Dose: 100 mls/hr Documented by: RYDER Thiamine HCl 100 mg/ Sodium (Chloride) 101 mls @ 202 mls/hr IV BID [facility] Last Infusion: 06/25/21 12:15 Dose: 202 mls/hr Documented by: RYDER Metoprolol Succinate (Metoprolol Succinate Er 25 Mg Tab.Er.24h) 25 mg PO BEDTIME [facility]; Protocol Last Admin: 06/24/21 21:10 Dose: 25 mg Documented by: ALEXY Naltrexone HCl (Naltrexone Hcl 50 Mg Tablet) 50 mg PO DAILY [facility] Last Admin: 06/25/21 07:51 Dose: 50 mg Documented by: RYDER Olanzapine (Olanzapine Odt 10 Mg Tab.Rapdis) 20 mg TRANSLINGU BEDTIME [facility] Last Admin: 06/24/21 18:40 Dose: 20 mg Documented by: BRIGIDRAMSUSANA Omeprazole (Omeprazole 40 Mg Capsule.Dr) 40 mg PO DAILY@0630 [facility] Last Admin: 06/25/21 07:50 Dose: 40 mg Documented by: RYDER Ondansetron HCl (Ondansetron Hcl 4 Mg/2 Ml Vial) 4 mg IVPUSH Q8H PRN PRN Reason: Nausea and Vomiting Pharmacy Consult (Consult Rx Perform Med Rec) 1 each MISCELLANE ONCE PRN PRN Reason: Consult order Phenobarbital (Phenobarbital 15 Mg Tablet) 45 mg PO BID [facility]; Protocol Stop: 06/27/21 09:01 Phenobarbital (Phenobarbital 15 Mg Tablet) 15 mg PO BID [facility]; Protocol Stop: 06/29/21 09:01 Phenobarbital (Phenobarbital 15 Mg Tablet) 15 mg PO DAILY [facility]; Protocol Stop: 07/01/21 09:01 Phenobarbital Sodium (Phenobarbital Sodium 130 Mg/Ml Vial) 123 mg IM Q3H [facility]; Protocol Stop: 06/25/21 17:01 Phenytoin Sodium (Phenytoin Sodium 100 Mg/2 Ml Vial) 100 mg IVPUSH BID [facility] Last Admin: 06/25/21 07:52 Dose: 100 mg Documented by: RYDER Sodium Chloride (0.9 % Sodium Chloride Flush 3 Ml Syringe) 3 ml IVFLUSH QSHIFT [facility] Last Admin: 06/25/21 07:52 Dose: Not Given Documented by: RYDER Non-Admin Reason: IV Running Tamsulosin HCl (Tamsulosin Hcl 0.4 Mg Capsule) 0.4 mg PO DAILY [facility] Last Admin: 06/25/21 07:51 Dose: 0.4 mg Documented by: RYDER Labs CBC & Chem 7: 06/24/21 06:54 06/25/21 05:36 Labs: Laboratory Results - last 24 hr 06/25/21 05:36 Anion Gap 12 Estim Creat Clear Calc 92.0 Estimated GFR > 60 Random Glucose 84 Calcium 9.1 Microbiology Microbiology Results: Microbiology 06/23/21 11:39 Urine Culture - Final Urine Catheterized - Straight Catheter Escherichia coli 06/23/21 10:22 Blood Culture - Final Blood - Venous Coag negative Staphylococcus 06/23/21 10:57 Blood Culture - Preliminary Blood - Venous No growth after 24 hours. Assessment and Plan (1) Toxic metabolic encephalopathy: Status: Acute (2) Urinary tract infection: Status: Acute (3) Acute kidney injury: Status: Acute (4) Rhabdomyolysis: Status: Acute (5) Hallucination: Status: Acute Plan A 65 years old male with PMH of alcohol abuse, GERD, cardiomyopathy, seizure disorder who presents to the hospital via EMS after being found encephalopathic. Toxic metabolic encephalopathy alcohol dependence with withdrawal possible b1 defeciency phenobarb, ciwa, thiamine no evidence of cirrhosis on labs or imaging HCV treated, no cirrhosis UTI Continue ceftriaxone Acute kidney injury, mild rhabdomyolysis Hold nephrotoxic medications Continue IV fluid Follow BMP and CK Monitor urine intake and output Nephrology input appreciated chronic chf with recovered EF appears dry, continue fluids metoprolo, holding lisinopril, aldactone History of seizure disorder phenytoin Hypertension Hold lisinopril, Lasix and spironolactone Continue metoprolol Psychiatric disorder continue olanzapine DVT PPX Heparin Quality Stroke Does the patient have a stroke diagnosis?: No VTE Prior VTE?: No VTE Risk Level:: Medical - moderate - high VTE Device Contraindication: Treatment Not Indicated VTE Drug Contraindication: N/A - Med Ordered
[2021-06-25] MEDS: PHENobarbitaL sodium 130 MG/ML VIAL 123 MG IM ×2 (14:20→16:55)
[2021-06-25] MEDS: OLANZapine ODT 10 MG TAB.RAPDIS 20 MG TRANSLINGU (21:36)
[2021-06-25] MEDS: Atorvastatin Calcium 40 MG TABLET PO (21:36)
[2021-06-25] MEDS: Metoprolol Succinate ER 25 MG TAB.ER.24H PO (21:36)
[2021-06-25] MEDS: PHENobarbitaL 15 MG TABLET 45 MG PO (21:37)
[2021-06-26 03:45] VITALS: BP 182/72; PULSE 63; RESP 16; TEMP 36.7; O2SAT 98
[2021-06-26] MEDS: 0.9 % Sodium Chloride 1,000 ML 100 ML IVCONT (04:16)
[2021-06-26 06:05] LABS: Hematocrit 35.8 % (42.0-52.0); Hemoglobin 11.7 g/dl (14.0-18.0); Mean Corpuscular HGB Conc 32.7 g/dl (31.0-36.0); Mean Corpuscular Hemoglobin 29.8 pg (27.0-33.0); Mean Corpuscular Volume 91.1 fL (80.0-98.0); Platelet Count 289 X10*3/uL (160-400); Red Blood Count 3.93 X10*6/uL (4.60-5.80); Red Cell Distribution Width 12.2 % (11.0-16.0); White Blood Count 10.7 X10*3/uL (4.8-10.8)
[2021-06-26 06:31] LABS: Anion Gap 15 (12-20); Blood Urea Nitrogen 15 mg/dL (9-16); Calcium 9.2 mg/dL (8.4-10.2); Carbon Dioxide 21 mmol/L (22-29); Chloride 111 mmol/L (96-108); Creatinine Clr Calc Pharmacy 95.4; Estimated Glomerular Filt Rate > 60; Glucose Fasting 75 mg/dL (60-99); Potassium 4.5 mmol/L (3.3-5.1); Sodium 142 mmol/L (135-145)
[2021-06-26 07:48] VITALS: BP 173/65; PULSE 86; RESP 15; TEMP 36.2; O2SAT 98
[2021-06-26] MEDS: lisinopriL 40 MG TABLET PO (07:50)
[2021-06-26] MEDS: Folic Acid 1 MG TABLET PO (07:50)
[2021-06-26] MEDS: PHENobarbitaL 15 MG TABLET 45 MG PO ×2 (07:50→20:30)
[2021-06-26] MEDS: Naltrexone HCl 50 MG TABLET PO (07:51)
[2021-06-26] MEDS: Spironolactone 25 MG TABLET 50 MG PO (07:51)
[2021-06-26] MEDS: Thiamine HCL 100 MG in 0.9 % Sodium Chloride 100 ML IV (07:51)
[2021-06-26] MEDS: Heparin Sodium,Porcine 5,000 UNIT/ML VIAL 5000 UNIT SUBCUT ×2 (07:51→20:28)
[2021-06-26] MEDS: Tamsulosin HCL 0.4 MG CAPSULE PO (07:53)
[2021-06-26] MEDS: Phenytoin Sodium 100 MG/2 ML VIAL IVPUSH ×2 (08:53→20:26)
--- NOTE | 2021-06-26 09:02 | HO.PM.IMPN ---
Subjective Subjective Date of Service: 06/26/21 Interval History: cc: ams interval history: confused, calmer Review of Systems Review of Systems: Yes Unobtainable due to mental condition Physical Exam Vital Signs: Vital Signs: Last Vital Signs Temp 97.2 F 06/26/21 07:48 Pulse 86 06/26/21 07:48 Resp 15 06/26/21 07:48 BP 173/65 H 06/26/21 07:48 Pulse Ox 98 06/26/21 07:48 BMI result Body Mass Index 27.8 General: Alert, confused Resp:? CTA bilateral, no accessory muscles used CVS: S1,S2,RRR GI: soft, non tender, non distended Neuro:? motor grossly intact, alert Psych:? impaired insight? Objective Data Active Medications Acetaminophen (Acetaminophen 325 Mg Tablet) 650 mg PO Q6H PRN PRN Reason: Pain, Mild (Pain Scale 1-3) Atorvastatin Calcium (Atorvastatin Calcium 40 Mg Tablet) 40 mg PO BEDTIME [facility] Last Admin: 06/25/21 21:36 Dose: 40 mg Documented by: DANIKA Folic Acid (Folic Acid 1 Mg Tablet) 1 mg PO DAILY [facility] Last Admin: 06/26/21 07:50 Dose: 1 mg Documented by: RYDER Heparin Sodium (Porcine) (Heparin Sodium,Porcine 5,000 Unit/Ml Vial) 5,000 unit SUBCUT Q12H [facility] Last Admin: 06/26/21 07:51 Dose: 5,000 unit Documented by: RYDER Hydroxyzine HCl (Hydroxyzine Hcl 50 Mg/Ml Vial) 25 mg IM Q6H PRN PRN Reason: Anxiety Last Admin: 06/24/21 21:03 Dose: 25 mg Documented by: ALEXY Ceftriaxone Sodium 1 gm/ (Sodium Chloride) 50 mls @ 100 mls/hr IV Q24H [facility] Last Infusion: 06/25/21 12:15 Dose: 100 mls/hr Documented by: RYDER Thiamine HCl 100 mg/ Sodium (Chloride) 101 mls @ 202 mls/hr IV BID [facility] Last Admin: 06/26/21 07:51 Dose: 100 mls/hr Documented by: RYDER Lisinopril (Lisinopril 40 Mg Tablet) 40 mg PO DAILY [facility]; Protocol Last Admin: 06/26/21 07:50 Dose: 40 mg Documented by: RYDER Metoprolol Succinate (Metoprolol Succinate Er 25 Mg Tab.Er.24h) 25 mg PO BEDTIME [facility]; Protocol Last Admin: 06/25/21 21:36 Dose: 25 mg Documented by: DANIKA Naltrexone HCl (Naltrexone Hcl 50 Mg Tablet) 50 mg PO DAILY [facility] Last Admin: 06/26/21 07:51 Dose: 50 mg Documented by: RYDER Olanzapine (Olanzapine Odt 10 Mg Tab.Rapdis) 20 mg TRANSLINGU BEDTIME [facility] Last Admin: 06/25/21 21:36 Dose: 20 mg Documented by: DANIKA Omeprazole (Omeprazole 40 Mg Capsule.Dr) 40 mg PO DAILY@0630 [facility] Last Admin: 06/26/21 05:16 Dose: Not Given Documented by: DANIKA Non-Admin Reason: Patient Asleep Ondansetron HCl (Ondansetron Hcl 4 Mg/2 Ml Vial) 4 mg IVPUSH Q8H PRN PRN Reason: Nausea and Vomiting Pharmacy Consult (Consult Rx Perform Med Rec) 1 each MISCELLANE ONCE PRN PRN Reason: Consult order Phenobarbital (Phenobarbital 15 Mg Tablet) 45 mg PO BID [facility]; Protocol Stop: 06/27/21 09:01 Last Admin: 06/26/21 07:50 Dose: 45 mg Documented by: RYDER Phenobarbital (Phenobarbital 15 Mg Tablet) 15 mg PO BID [facility]; Protocol Stop: 06/29/21 09:01 Phenobarbital (Phenobarbital 15 Mg Tablet) 15 mg PO DAILY [facility]; Protocol Stop: 07/01/21 09:01 Phenytoin Sodium (Phenytoin Sodium 100 Mg/2 Ml Vial) 100 mg IVPUSH BID [facility] Last Admin: 06/25/21 21:34 Dose: 100 mg Documented by: DANIKA Sodium Chloride (0.9 % Sodium Chloride Flush 3 Ml Syringe) 3 ml IVFLUSH QSHIFT [facility] Last Admin: 06/26/21 07:53 Dose: Not Given Documented by: RYDER Non-Admin Reason: IV Running Spironolactone (Spironolactone 25 Mg Tablet) 50 mg PO DAILY [facility]; Protocol Last Admin: 06/26/21 07:51 Dose: 50 mg Documented by: RYDER Tamsulosin HCl (Tamsulosin Hcl 0.4 Mg Capsule) 0.4 mg PO DAILY [facility] Last Admin: 06/25/21 07:51 Dose: 0.4 mg Documented by: RYDER Labs CBC & Chem 7: 06/26/21 05:44 06/26/21 05:44 Labs: Laboratory Results - last 24 hr 06/26/21 06/26/21 05:44 05:44 MCV 91.1 MCH 29.8 MCHC 32.7 RDW 12.2 Plt Count 289 MPV 9.0 L Absolute Nucleated RBC 0.000 Nucleated RBC % (auto) 0.0 Anion Gap 15 Estim Creat Clear Calc 95.4 Estimated GFR > 60 Fasting Glucose 75 Calcium 9.2 Total Creatine Kinase 2353 H Microbiology Microbiology Results: Microbiology 06/23/21 10:57 Blood Culture - Preliminary Blood - Venous No growth after 48 hours. 06/23/21 11:39 Urine Culture - Final Urine Catheterized - Straight Catheter Escherichia coli 06/23/21 10:22 Blood Culture - Final Blood - Venous Coag negative Staphylococcus Assessment and Plan (1) Toxic metabolic encephalopathy: Status: Acute (2) Urinary tract infection: Status: Acute (3) Acute kidney injury: Status: Acute (4) Rhabdomyolysis: Status: Acute (5) Hallucination: Status: Acute Plan A 65 years old male with PMH of alcohol abuse, GERD, cardiomyopathy, seizure disorder who presents to the hospital via EMS after being found encephalopathic. Toxic metabolic encephalopathy alcohol dependence with withdrawal vs accidental overdosing (given duplicate meds by 2 different care givers) possible b1 defeciency phenobarb, ciwa, thiamine no evidence of cirrhosis on labs or imaging HCV treated, no cirrhosis UTI Continue ceftriaxone Acute kidney injury, resolved chronic chf with recovered EF appears dry, continue fluids metoprolol, restart lisinopril, aldactone History of seizure disorder phenytoin Hypertension lisinopril, spironolactone, metoprolol Psychiatric disorder continue olanzapine DVT PPX Heparin Quality Stroke Does the patient have a stroke diagnosis?: No VTE Prior VTE?: No VTE Risk Level:: Medical - moderate - high VTE Device Contraindication: Treatment Not Indicated VTE Drug Contraindication: N/A - Med Ordered
[2021-06-26] MEDS: Lactated Ringers 1,000 ML 80 ML IVCONT (09:30)
--- NOTE | 2021-06-26 10:48 | PM.PNNEP ---
Subjective Subjective Date of Service: 06/26/21 Interval history: Events noted Still confused Physical Exam Vital Signs: Vital Signs: Last Vital Signs Temp 97.2 F 06/26/21 07:48 Pulse 86 06/26/21 07:48 Resp 15 06/26/21 07:48 BP 173/65 H 06/26/21 07:48 Pulse Ox 98 06/26/21 07:48 BMI result Body Mass Index 27.8 Const: Other: Constitutional : Obtunded, withdrawal from pain not in distress Neck : Normal inspection, Supple Cardiovascular : RRR, S1 S2, no lower extremity edema Respiratory : Fair bilateral air entry, no crackles, wheezes or rhonchi Gastrointestinal: soft, lax, Normal bowel sounds, Non tender or ascites Skin : Warm, Dry Neurological : Encephalopathic, pupils responsive to light, GCS of 8-9, No focal deficit Objective Data Labs CBC & Chem 7: 06/26/21 05:44 06/26/21 05:44 Labs: Laboratory Results - last 24 hr 06/26/21 06/26/21 05:44 05:44 WBC 10.7 RBC 3.93 L Hgb 11.7 L Hct 35.8 L MCV 91.1 MCH 29.8 MCHC 32.7 RDW 12.2 Plt Count 289 MPV 9.0 L Absolute Nucleated RBC 0.000 Nucleated RBC % (auto) 0.0 Sodium 142 Potassium 4.5 Chloride 111 H Carbon Dioxide 21 L Anion Gap 15 BUN 15 Creatinine 0.80 Estim Creat Clear Calc 95.4 Estimated GFR > 60 Fasting Glucose 75 Calcium 9.2 Total Creatine Kinase 2353 H Microbiology Microbiology Results: Microbiology 06/23/21 10:57 Blood - Venous Blood Culture - Preliminary No growth after 48 hours. 06/23/21 11:39 Urine Catheterized - Straight Catheter Urine Culture - Final Escherichia coli 06/23/21 10:22 Blood - Venous Blood Culture - Final Coag negative Staphylococcus Procedures Date of Service Date of Service: 06/26/21 Assessment & Plan Assessment and plan (1) Toxic metabolic encephalopathy: Status: Acute (2) Urinary tract infection: Status: Acute (3) Acute kidney injury: Status: Acute (4) Rhabdomyolysis: Status: Acute (5) Hallucination: Status: Acute Plan A 65 years old male with PMH of alcohol abuse, GERD, cardiomyopathy, seizure disorder who presents to the hospital via EMS after being found encephalopathic. Toxic metabolic encephalopathy Multifactorial, infection, Robbie I, medications More alert and interactive Recurrent redirection Hold gabapentin Acute kidney injury, prerenal Improving, CK still elevated at 1999 - no evidnce of pigment nephropathy Hold nephrotoxic medications Continue IV fluid - since he appears dry and PO intake it poor Follow BMP and CK Monitor urine intake and output Hold Lasix History alcohol abuse Hypertension OK to restart Lisinopril Hold Lasix Continue metoprolol use amlodipine if high readings Watch BP for now Time Spent With Patient Time: Total time spent is greater than 50% in coordination of care (as documented) at patient's floor/unit and/or counseling patient: Time with patient: 15 - 24 minutes Progress Note: Quality Stroke Does the patient have a stroke diagnosis?: No
[2021-06-26 12:00] VITALS: BP 170/60; PULSE 75; RESP 15; TEMP 36; O2SAT 94
--- NOTE | 2021-06-26 12:19 | MHC.CLN ---
F/U DIET ADVANCED TO REGULAR RECOMMEND ADDING ENSURE BID R/T FRAGILE SKIN SUPP TO PROVIDE 700KCALS, 40G PROTEIN MONITOR PO INTAKE CLOSELY
[2021-06-26] MEDS: cefTRIAXone sodium 1 GM in 0.9 % Sodium Chloride 50 ML IV (12:36)
[2021-06-26 16:00] VITALS: BP 179/88; PULSE 74; RESP 18; TEMP 36.5; O2SAT 98
[2021-06-26 16:48] VITALS: BP 166/85; PULSE 68
[2021-06-26 19:29] VITALS: BP 169/90; PULSE 80; RESP 18; TEMP 37.6; O2SAT 96
[2021-06-26] MEDS: Atorvastatin Calcium 40 MG TABLET PO (20:29)
[2021-06-26] MEDS: OLANZapine ODT 10 MG TAB.RAPDIS 20 MG TRANSLINGU (20:30)
[2021-06-26] MEDS: Thiamine HCL 100 MG in 0.9 % Sodium Chloride 100 ML 202 MG IV (20:31)
[2021-06-26] MEDS: Metoprolol Succinate ER 25 MG TAB.ER.24H PO (20:31)
[2021-06-27] VITALS: BP 183/87; PULSE 73; RESP 16; TEMP 36.7; O2SAT 97
[2021-06-27] MEDS: Lactated Ringers 1,000 ML 80 ML IVCONT ×2 (00:04→14:26)
[2021-06-27] MEDS: Acetaminophen 325 MG TABLET 650 MG PO (01:08)
[2021-06-27] MEDS: hydrOXYzine HCL 50 MG/ML VIAL 25 MG IM (01:15)
[2021-06-27 04:00] VITALS: RESP 18
[2021-06-27] MEDS: Omeprazole 40 MG CAPSULE.DR PO (06:31)
[2021-06-27] MEDS: Spironolactone 25 MG TABLET 50 MG PO (07:28)
[2021-06-27] MEDS: Tamsulosin HCL 0.4 MG CAPSULE PO (07:28)
[2021-06-27] MEDS: Folic Acid 1 MG TABLET PO (07:28)
[2021-06-27] MEDS: Heparin Sodium,Porcine 5,000 UNIT/ML VIAL 5000 UNIT SUBCUT ×2 (07:29→20:29)
[2021-06-27] MEDS: PHENobarbitaL 15 MG TABLET 45 MG PO (07:29)
[2021-06-27] MEDS: Naltrexone HCl 50 MG TABLET PO (07:29)
[2021-06-27] MEDS: lisinopriL 40 MG TABLET PO (07:29)
[2021-06-27] MEDS: Phenytoin Sodium 100 MG/2 ML VIAL IVPUSH ×2 (07:30→20:30)
[2021-06-27] MEDS: Thiamine HCL 100 MG in 0.9 % Sodium Chloride 100 ML 101 MG IV ×2 (07:30→20:45)
[2021-06-27 07:38] VITALS: BP 184/81; PULSE 71; RESP 20; TEMP 36.8; O2SAT 98
[2021-06-27 09:23] LABS: Hematocrit 36.7 % (42.0-52.0); Hemoglobin 12.2 g/dl (14.0-18.0); Mean Corpuscular HGB Conc 33.2 g/dl (31.0-36.0); Mean Corpuscular Hemoglobin 30.5 pg (27.0-33.0); Mean Corpuscular Volume 91.8 fL (80.0-98.0); Mean Platelet Volume 9.1 fL (9.4-12.4); Platelet Count 287 X10*3/uL (160-400); Red Cell Distribution Width 12.3 % (11.0-16.0); White Blood Count 9.3 X10*3/uL (4.8-10.8)
--- NOTE | 2021-06-27 09:34 | P.PNIM_ITS ---
Subjective Subjective Date of Service: 06/27/21 Interval History: cc: ams interval history: confused Review of Systems Review of Systems: Yes Unobtainable due to mental condition Physical Exam Vital Signs: Vital Signs: Last Vital Signs Temp 98.3 F 06/27/21 07:38 Pulse 71 06/27/21 07:38 Resp 20 06/27/21 07:38 BP 184/81 H 06/27/21 07:38 Pulse Ox 98 06/27/21 07:38 BMI result Body Mass Index 27.8 General: Alert, confused Resp:? CTA bilateral, no accessory muscles used CVS: S1,S2,RRR GI: soft, non tender, non distended Neuro:? motor grossly intact, alert Psych:? impaired insight? Objective Data Active Medications Acetaminophen (Acetaminophen 325 Mg Tablet) 650 mg PO Q6H PRN PRN Reason: Pain, Mild (Pain Scale 1-3) Last Admin: 06/27/21 01:08 Dose: 650 mg Documented by: EDE Atorvastatin Calcium (Atorvastatin Calcium 40 Mg Tablet) 40 mg PO BEDTIME [facility] Last Admin: 06/26/21 20:29 Dose: 40 mg Documented by: ALTON Folic Acid (Folic Acid 1 Mg Tablet) 1 mg PO DAILY [facility] Last Admin: 06/27/21 07:28 Dose: 1 mg Documented by: RYDER Heparin Sodium (Porcine) (Heparin Sodium,Porcine 5,000 Unit/Ml Vial) 5,000 unit SUBCUT Q12H [facility] Last Admin: 06/27/21 07:29 Dose: 5,000 unit Documented by: RYDER Hydroxyzine HCl (Hydroxyzine Hcl 50 Mg/Ml Vial) 25 mg IM Q6H PRN PRN Reason: Anxiety Last Admin: 06/27/21 01:15 Dose: 25 mg Documented by: EDE Ceftriaxone Sodium 1 gm/ (Sodium Chloride) 50 mls @ 100 mls/hr IV Q24H [facility] Last Infusion: 06/26/21 13:29 Dose: 100 mls/hr Documented by: RYDER Thiamine HCl 100 mg/ Sodium (Chloride) 101 mls @ 202 mls/hr IV BID [facility] Last Admin: 06/27/21 07:30 Dose: 101 mls/hr Documented by: RYDER Lactated Ringer's (Lr) 1,000 mls @ 80 mls/hr IVCONT .[id number] [facility] Last Admin: 06/27/21 00:04 Dose: 80 mls/hr Documented by: EDE Lisinopril (Lisinopril 40 Mg Tablet) 40 mg PO DAILY [facility]; Protocol Last Admin: 06/27/21 07:29 Dose: 40 mg Documented by: RYDER Metoprolol Succinate (Metoprolol Succinate Er 25 Mg Tab.Er.24h) 25 mg PO BEDTIME [facility]; Protocol Last Admin: 06/26/21 20:31 Dose: 25 mg Documented by: ALTON Naltrexone HCl (Naltrexone Hcl 50 Mg Tablet) 50 mg PO DAILY [facility] Last Admin: 06/27/21 07:29 Dose: 50 mg Documented by: RYDER Olanzapine (Olanzapine Odt 10 Mg Tab.Rapdis) 20 mg TRANSLINGU BEDTIME [facility] Last Admin: 06/26/21 20:30 Dose: 20 mg Documented by: ALTON Omeprazole (Omeprazole 40 Mg Capsule.Dr) 40 mg PO DAILY@0630 [facility] Last Admin: 06/27/21 06:31 Dose: 40 mg Documented by: EDE Ondansetron HCl (Ondansetron Hcl 4 Mg/2 Ml Vial) 4 mg IVPUSH Q8H PRN PRN Reason: Nausea and Vomiting Pharmacy Consult (Consult Rx Perform Med Rec) 1 each MISCELLANE ONCE PRN PRN Reason: Consult order Phenobarbital (Phenobarbital 15 Mg Tablet) 15 mg PO BID [facility]; Protocol Stop: 06/29/21 09:01 Phenobarbital (Phenobarbital 15 Mg Tablet) 15 mg PO DAILY [facility]; Protocol Stop: 07/01/21 09:01 Phenytoin Sodium (Phenytoin Sodium 100 Mg/2 Ml Vial) 100 mg IVPUSH BID [facility] Last Admin: 06/27/21 07:30 Dose: 100 mg Documented by: RYDER Sodium Chloride (0.9 % Sodium Chloride Flush 3 Ml Syringe) 3 ml IVFLUSH QSHIFT [facility] Last Admin: 06/27/21 07:55 Dose: Not Given Documented by: RYDER Non-Admin Reason: IV Running Spironolactone (Spironolactone 25 Mg Tablet) 50 mg PO DAILY [facility]; Protocol Last Admin: 06/27/21 07:28 Dose: 50 mg Documented by: RYDER Tamsulosin HCl (Tamsulosin Hcl 0.4 Mg Capsule) 0.4 mg PO DAILY [facility] Last Admin: 06/27/21 07:28 Dose: 0.4 mg Documented by: RYDER Labs CBC & Chem 7: 06/27/21 09:06 06/26/21 05:44 Labs: Laboratory Results - last 24 hr 06/27/21 09:06 MCV 91.8 MCH 30.5 MCHC 33.2 RDW 12.3 Plt Count 287 MPV 9.1 L Absolute Nucleated RBC 0.000 Nucleated RBC % (auto) 0.0 Assessment and Plan (1) Toxic metabolic encephalopathy: Status: Acute (2) Urinary tract infection: Status: Acute (3) Acute kidney injury: Status: Acute (4) Rhabdomyolysis: Status: Acute (5) Hallucination: Status: Acute Plan A 65 years old male with PMH of alcohol abuse, GERD, cardiomyopathy, seizure di sorder who presents to the hospital via EMS after being found encephalopathic. Toxic metabolic encephalopathy alcohol dependence with withdrawal vs accidental overdosing (given duplicate meds by 2 different care givers) possible b1 defeciency phenobarb, ciwa, thiamine no evidence of cirrhosis on labs or imaging some improvement (feeding self), but not at baseline which is independent in most ADLs HCV treated, no cirrhosis UTI Continue ceftriaxone Acute kidney injury, resolved chronic chf with recovered EF appears dry, continue fluids metoprolol, restarted lisinopril, aldactone History of seizure disorder phenytoin Hypertension lisinopril, spironolactone, metoprolol Psychiatric disorder continue olanzapine DVT PPX Heparin Quality Stroke Does the patient have a stroke diagnosis?: No VTE Prior VTE?: No VTE Risk Level:: Medical - moderate - high VTE Device Contraindication: Treatment Not Indicated VTE Drug Contraindication: N/A - Med Ordered
[2021-06-27 09:37] LABS: Anion Gap 12 (12-20); Blood Urea Nitrogen 12 mg/dL (9-16); Calcium 9.1 mg/dL (8.4-10.2); Carbon Dioxide 23 mmol/L (22-29); Chloride 109 mmol/L (96-108); Creatinine Clr Calc Pharmacy 97.9; Estimated Glomerular Filt Rate > 60; Glucose Fasting 96 mg/dL (60-99); Potassium 4.1 mmol/L (3.3-5.1); Sodium 140 mmol/L (135-145)
[2021-06-27 11:27] VITALS: BP 194/95; PULSE 90; RESP 16; TEMP 36.8; O2SAT 98
[2021-06-27] MEDS: cefTRIAXone sodium 1 GM in 0.9 % Sodium Chloride 50 ML IV (11:50)
--- NOTE | 2021-06-27 12:54 | MHC.CM.PN ---
PER MD ROUNDS, PT NOT YET CLEAR ENOUGH TO WORK WITH PHYSICAL THERAPY. ONCE PTS MENTATION IMPROVES, HE WILL HAVE A PT EVAL TO ASSIST WITH DC PLANNING. CURRENT DC PLAN, PER FAMILY, IS HOME WITH RESUMPTION OF FAMILY SUPPORT. COUSIN TO TRANSPORT
[2021-06-27] MEDS: Nicotine 21 MG PATCH.TD24 TRANSDERMA (14:24)
[2021-06-27] MEDS: amLODIPine Besylate 5 MG TABLET PO (14:24)
--- NOTE | 2021-06-27 14:43 | PM.PNNEP ---
Subjective Subjective Date of Service: 06/27/21 Interval history: seen and examined confused Physical Exam Vital Signs: Vital Signs: Last Vital Signs Temp 98.3 F 06/27/21 11:27 Pulse 90 06/27/21 11:27 Resp 16 06/27/21 11:27 BP 194/95 H 06/27/21 11:27 Pulse Ox 98 06/27/21 11:27 BMI result Body Mass Index 27.8 Const: General: no acute distress HENMT: Head: Yes normocephalic and Yes atraumatic Neck: Neck: Yes supple Resp: Auscultation: diminished lung sounds Cardio: Heart sounds: S1 normal heart sound present and S2 normal heart sound present GI: Palpation (GI): Soft to palpation and no guarding Extrem: General: Yes no pedal edema Objective Data Labs CBC & Chem 7: 06/27/21 09:06 06/27/21 09:06 Labs: Laboratory Results - last 24 hr 06/27/21 06/27/21 09:06 09:06 WBC 9.3 RBC 4.00 L Hgb 12.2 L Hct 36.7 L MCV 91.8 MCH 30.5 MCHC 33.2 RDW 12.3 Plt Count 287 MPV 9.1 L Absolute Nucleated RBC 0.000 Nucleated RBC % (auto) 0.0 Sodium 140 Potassium 4.1 Chloride 109 H Carbon Dioxide 23 Anion Gap 12 BUN 12 Creatinine 0.78 Estim Creat Clear Calc 97.9 Estimated GFR > 60 Fasting Glucose 96 Calcium 9.1 Microbiology Microbiology Results: Microbiology 06/23/21 10:57 Blood - Venous Blood Culture - Preliminary No growth after 48 hours. 06/23/21 11:39 Urine Catheterized - Straight Catheter Urine Culture - Final Escherichia coli 06/23/21 10:22 Blood - Venous Blood Culture - Final Coag negative Staphylococcus Procedures Date of Service Date of Service: 06/27/21 Assessment & Plan Assessment and plan (1) Acute kidney injury: Status: Acute Plan FABIENNE prerenal state resolved continue IVF follow kidney function and electrolytes Time Spent With Patient Time: Total time spent is greater than 50% in coordination of care (as documented) at patient's floor/unit and/or counseling patient: Progress Note: Quality Stroke Does the patient have a stroke diagnosis?: No
[2021-06-27 15:43] VITALS: BP 159/69; PULSE 74; RESP 18; TEMP 37; O2SAT 95
--- NOTE | 2021-06-27 17:55 | PC.NURSE ---
AT 1510 T STAT ALARMED ALONG WITH WALKIE CALL TO ROOM 375. STATED PT ROLL OUT OB BED LANDING ON HE KNEES. OBSERVATION WAS MADE BY JAMA TARANGO. SHE STATED PT DID NOT HIT HIS HEAD. PT WAS ASSISTED BACK TO BED. NO APPARENT INJURY. DR RAM WAS MADE AWARE ALONG WITH [employer] WOODY ARAGON. PT WAS MOVED TO 369. SITTER IN PLACE. CAMERA AND ALL HIGH FALL RISK INTERVENTIONS REMAIN IN PLACE. DURING HOSPITAL STAY PT HAS BEEN CONFUSED AND RESISTIVE TO CARE. VITAL SGNS UNCHANGED.
[2021-06-27 19:29] VITALS: BP 169/97; PULSE 68; RESP 18; TEMP 36.7; O2SAT 93
[2021-06-27] MEDS: PHENobarbitaL 15 MG TABLET PO (20:29)
[2021-06-27] MEDS: Atorvastatin Calcium 40 MG TABLET PO (20:29)
[2021-06-27] MEDS: Metoprolol Succinate ER 25 MG TAB.ER.24H PO (20:29)
[2021-06-27] MEDS: OLANZapine ODT 10 MG TAB.RAPDIS 20 MG TRANSLINGU (20:29)
[2021-06-28] VITALS (9 sets, daily range): BP systolic 131–162; BP diastolic 59–94; PULSE 57–92; RESP 16–20; TEMP 36.1–36.9; O2SAT 94–100
[2021-06-28] MEDS: Lactated Ringers 1,000 ML 80 ML IVCONT ×2 (03:55→16:41)
[2021-06-28] MEDS: Omeprazole 40 MG CAPSULE.DR PO (06:02)
[2021-06-28] MEDS: Heparin Sodium,Porcine 5,000 UNIT/ML VIAL 5000 UNIT SUBCUT ×2 (09:49→19:18)
[2021-06-28] MEDS: PHENobarbitaL 15 MG TABLET PO ×2 (09:50→19:56)
[2021-06-28] MEDS: Thiamine HCL 100 MG in 0.9 % Sodium Chloride 100 ML 101 MG IV (09:50)
[2021-06-28] MEDS: Folic Acid 1 MG TABLET PO (09:50)
[2021-06-28] MEDS: lisinopriL 40 MG TABLET PO (09:50)
[2021-06-28] MEDS: Phenytoin Sodium 100 MG/2 ML VIAL IVPUSH ×2 (09:50→19:57)
[2021-06-28] MEDS: Naltrexone HCl 50 MG TABLET PO (09:50)
[2021-06-28] MEDS: Spironolactone 25 MG TABLET 50 MG PO (09:51)
[2021-06-28] MEDS: Tamsulosin HCL 0.4 MG CAPSULE PO (09:51)
[2021-06-28] MEDS: Nicotine 21 MG PATCH.TD24 TRANSDERMA (09:51)
[2021-06-28] MEDS: amLODIPine Besylate 5 MG TABLET PO (09:51)
[2021-06-28] MEDS: cefTRIAXone sodium 1 GM in 0.9 % Sodium Chloride 50 ML IV (11:37)
--- NOTE | 2021-06-28 11:58 | P.PNIM_ITS ---
Subjective Subjective Date of Service: 06/28/21 Interval History: cc: ams interval history: confused Cardiovascular Cardiovascular: Reports no additional cardiovascular complaints Gastrointestinal Gastrointestinal: Reports no additional gastrointestinal complaints Physical Exam Vital Signs: Vital Signs: Last Vital Signs Temp 97.4 F 06/28/21 08:00 Pulse 57 06/28/21 08:00 Resp 18 06/28/21 08:00 BP 149/68 H 06/28/21 08:00 Pulse Ox 100 06/28/21 08:00 BMI result Body Mass Index 27.8 General: Alert, confused Resp:? CTA bilateral, no accessory muscles used CVS: S1,S2,RRR GI: soft, non tender, non distended Neuro:? motor grossly intact, alert Psych:? impaired insight? Objective Data Active Medications Acetaminophen (Acetaminophen 325 Mg Tablet) 650 mg PO Q6H PRN PRN Reason: Pain, Mild (Pain Scale 1-3) Last Admin: 06/27/21 01:08 Dose: 650 mg Documented by: EDE Amlodipine Besylate (Amlodipine Besylate 5 Mg Tablet) 5 mg PO DAILY [facility]; Pr otocol Last Admin: 06/28/21 09:51 Dose: 5 mg Documented by: SHAQUILLE Atorvastatin Calcium (Atorvastatin Calcium 40 Mg Tablet) 40 mg PO BEDTIME [facility] Last Admin: 06/27/21 20:29 Dose: 40 mg Documented by: DIMITRI Folic Acid (Folic Acid 1 Mg Tablet) 1 mg PO DAILY [facility] Last Admin: 06/28/21 09:50 Dose: 1 mg Documented by: SHAQUILLE Heparin Sodium (Porcine) (Heparin Sodium,Porcine 5,000 Unit/Ml Vial) 5,000 unit SUBCUT Q12H [facility] Last Admin: 06/28/21 09:49 Dose: 5,000 unit Documented by: SHAQUILLE Hydroxyzine HCl (Hydroxyzine Hcl 50 Mg/Ml Vial) 25 mg IM Q6H PRN PRN Reason: Anxiety Last Admin: 06/27/21 01:15 Dose: 25 mg Documented by: EDE Ceftriaxone Sodium 1 gm/ (Sodium Chloride) 50 mls @ 100 mls/hr IV Q24H [facility] Last Admin: 06/28/21 11:37 Dose: 100 mls/hr Documented by: SHAQUILLE Thiamine HCl 100 mg/ Sodium (Chloride) 101 mls @ 202 mls/hr IV BID [facility] Last Infusion: 06/28/21 11:03 Dose: 0 mls/hr Documented by: SHAQUILLE Lactated Ringer's (Lr) 1,000 mls @ 80 mls/hr IVCONT .[id number] [facility] Last Admin: 06/28/21 03:55 Dose: 80 mls/hr Documented by: DIMITRI Lisinopril (Lisinopril 40 Mg Tablet) 40 mg PO DAILY [facility]; Protocol Last Admin: 06/28/21 09:50 Dose: 40 mg Documented by: SHAQUILLE Metoprolol Succinate (Metoprolol Succinate Er 25 Mg Tab.Er.24h) 25 mg PO BEDTIME [facility]; Protocol Last Admin: 06/27/21 20:29 Dose: 25 mg Documented by: DIMITRI Naltrexone HCl (Naltrexone Hcl 50 Mg Tablet) 50 mg PO DAILY [facility] Last Admin: 06/28/21 09:50 Dose: 50 mg Documented by: SHAQUILLE Nicotine (Nicotine 21 Mg Patch.Td24) 21 mg TRANSDERMA DAILY [facility] Last Admin: 06/28/21 09:51 Dose: 21 mg Documented by: SHAQUILLE Olanzapine (Olanzapine Odt 10 Mg Tab.Rapdis) 20 mg TRANSLINGU BEDTIME [facility] Last Admin: 06/27/21 20:29 Dose: 20 mg Documented by: DIMITRI Omeprazole (Omeprazole 40 Mg Capsule.Dr) 40 mg PO DAILY@0630 [facility] Last Admin: 06/28/21 06:02 Dose: 40 mg Documented by: DIMITRI Ondansetron HCl (Ondansetron Hcl 4 Mg/2 Ml Vial) 4 mg IVPUSH Q8H PRN PRN Reason: Nausea and Vomiting Pharmacy Consult (Consult Rx Perform Med Rec) 1 each MISCELLANE ONCE PRN PRN Reason: Consult order Phenobarbital (Phenobarbital 15 Mg Tablet) 15 mg PO BID [facility]; Protocol Stop: 06/29/21 09:01 Last Admin: 06/28/21 09:50 Dose: 15 mg Documented by: SHAQUILLE Phenobarbital (Phenobarbital 15 Mg Tablet) 15 mg PO DAILY [facility]; Protocol Stop: 07/01/21 09:01 Phenytoin Sodium (Phenytoin Sodium 100 Mg/2 Ml Vial) 100 mg IVPUSH BID [facility] Last Admin: 06/28/21 09:50 Dose: 100 mg Documented by: SHAQUILLE Sodium Chloride (0.9 % Sodium Chloride Flush 3 Ml Syringe) 3 ml IVFLUSH QSHIFT [facility] Last Admin: 06/28/21 07:34 Dose: Not Given Documented by: SHAQUILLE Non-Admin Reason: IV Running Spironolactone (Spironolactone 25 Mg Tablet) 50 mg PO DAILY [facility]; Protocol Last Admin: 06/28/21 09:51 Dose: 50 mg Documented by: SHAQUILLE Tamsulosin HCl (Tamsulosin Hcl 0.4 Mg Capsule) 0.4 mg PO DAILY [facility] Last Admin: 06/28/21 09:51 Dose: 0.4 mg Documented by: SHAQUILLE Labs CBC & Chem 7: 06/27/21 09:06 06/27/21 09:06 Assessment and Plan (1) Toxic metabolic encephalopathy: Status: Acute (2) Urinary tract infection: Status: Acute (3) Acute kidney injury: Status: Acute (4) Rhabdomyolysis: Status: Acute (5) Hallucination: Status: Acute Plan A 65 years old male with PMH of alcohol abuse, GERD, cardiomyopathy, seizure disorder who presents to the hospital via EMS after being found encephalopathic. Toxic metabolic encephalopathy alcohol dependence with withdrawal vs accidental overdosing (given duplicate meds by 2 different care givers) possible b1 defeciency phenobarb, ciwa, thiamine no evidence of cirrhosis on labs or imaging slowly improving improving (feeding self), but not at baseline which is independent in most ADLs now following more directions, will get PT HCV treated, no cirrhosis UTI Continue ceftriaxone Acute kidney injury, resolved chronic chf with recovered EF appears dry, continue fluids metoprolol, restarted lisinopril, aldactone History of seizure disorder phenytoin Hypertension lisinopril, spironolactone, metoprolol Psychiatric disorder continue olanzapine DVT PPX Heparin Quality Stroke Does the patient have a stroke diagnosis?: No VTE Prior VTE?: No VTE Risk Level:: Medical - moderate - high VTE Device Contraindication: Treatment Not Indicated VTE Drug Contraindication: N/A - Med Ordered
[2021-06-28] MEDS: Metoprolol Succinate ER 25 MG TAB.ER.24H PO (19:55)
[2021-06-28] MEDS: OLANZapine ODT 10 MG TAB.RAPDIS 20 MG TRANSLINGU (19:56)
[2021-06-28] MEDS: Atorvastatin Calcium 40 MG TABLET PO (19:56)
[2021-06-28] MEDS: Thiamine HCL 100 MG in 0.9 % Sodium Chloride 100 ML 202 MG IV (20:06)
[2021-06-29 03:27] VITALS: BP 178/79; PULSE 63; RESP 12; TEMP 36.1; O2SAT 99
[2021-06-29 06:15] LABS: Hematocrit 33.9 % (42.0-52.0); Mean Corpuscular HGB Conc 32.4 g/dl (31.0-36.0); Mean Corpuscular Hemoglobin 30.7 pg (27.0-33.0); Mean Corpuscular Volume 94.7 fL (80.0-98.0); Mean Platelet Volume 9.2 fL (9.4-12.4); Platelet Count 269 X10*3/uL (160-400); Red Blood Count 3.58 X10*6/uL (4.60-5.80); Red Cell Distribution Width 12.4 % (11.0-16.0); White Blood Count 9.1 X10*3/uL (4.8-10.8)
[2021-06-29] MEDS: Omeprazole 40 MG CAPSULE.DR PO (06:35)
[2021-06-29] MEDS: Lactated Ringers 1,000 ML 80 ML IVCONT (06:48)
[2021-06-29 06:52] LABS: Anion Gap 15 (12-20); Blood Urea Nitrogen 11 mg/dL (9-16); Calcium 9.2 mg/dL (8.4-10.2); Carbon Dioxide 23 mmol/L (22-29); Chloride 107 mmol/L (96-108); Creatinine Clr Calc Pharmacy 103.2; Estimated Glomerular Filt Rate > 60; Glucose Fasting 90 mg/dL (60-99); Potassium 4.5 mmol/L (3.3-5.1); Sodium 140 mmol/L (135-145)
[2021-06-29 07:56] VITALS: BP 159/70; PULSE 64; RESP 18; TEMP 35.9; O2SAT 95
[2021-06-29] MEDS: Heparin Sodium,Porcine 5,000 UNIT/ML VIAL 5000 UNIT SUBCUT ×2 (08:29→19:39)
[2021-06-29] MEDS: Phenytoin Sodium 100 MG/2 ML VIAL IVPUSH ×2 (08:29→19:38)
[2021-06-29] MEDS: amLODIPine Besylate 5 MG TABLET PO (08:30)
[2021-06-29] MEDS: Tamsulosin HCL 0.4 MG CAPSULE PO (08:30)
[2021-06-29] MEDS: Folic Acid 1 MG TABLET PO (08:30)
[2021-06-29] MEDS: Spironolactone 25 MG TABLET 50 MG PO (08:30)
[2021-06-29] MEDS: PHENobarbitaL 15 MG TABLET PO (08:30)
[2021-06-29] MEDS: Naltrexone HCl 50 MG TABLET PO (08:30)
[2021-06-29] MEDS: Nicotine 21 MG PATCH.TD24 TRANSDERMA (08:30)
[2021-06-29] MEDS: lisinopriL 40 MG TABLET PO (08:32)
[2021-06-29] MEDS: Thiamine HCL 100 MG in 0.9 % Sodium Chloride 100 ML 202 MG IV (08:46)
--- NOTE | 2021-06-29 09:34 | HO.PM.IMPN ---
Subjective Subjective Date of Service: 06/29/21 Interval History: cc: ams interval history: confused Review of Systems Review of Systems: Yes Unobtainable due to mental condition Physical Exam Vital Signs: Vital Signs: Last Vital Signs Temp 96.7 F L 06/29/21 07:56 Pulse 64 06/29/21 07:56 Resp 18 06/29/21 07:56 BP 159/70 H 06/29/21 07:56 Pulse Ox 95 06/29/21 07:56 BMI result Body Mass Index 27.8 General: Alert, confused Resp:? CTA bilateral, no accessory muscles used CVS: S1,S2,RRR GI: soft, non tender, non distended Neuro:? motor grossly intact, alert Psych:? impaired insight? Objective Data Active Medications Acetaminophen (Acetaminophen 325 Mg Tablet) 650 mg PO Q6H PRN PRN Reason: Pain, Mild (Pain Scale 1-3) Last Admin: 06/27/21 01:08 Dose: 650 mg Documented by: EDE Amlodipine Besylate (Amlodipine Besylate 5 Mg Tablet) 5 mg PO DAILY [facility]; Protocol Last Admin: 06/29/21 08:30 Dose: 5 mg Documented by: SHAQUILLE Atorvastatin Calcium (Atorvastatin Calcium 40 Mg Tablet) 40 mg PO BEDTIME [facility] Last Admin: 06/28/21 19:56 Dose: 40 mg Documented by: DIMITRI Folic Acid (Folic Acid 1 Mg Tablet) 1 mg PO DAILY [facility] Last Admin: 06/29/21 08:30 Dose: 1 mg Documented by: SHAQUILLE Heparin Sodium (Porcine) (Heparin Sodium,Porcine 5,000 Unit/Ml Vial) 5,000 unit SUBCUT Q12H [facility] Last Admin: 06/29/21 08:29 Dose: 5,000 unit Documented by: SHAQUILLE Hydroxyzine HCl (Hydroxyzine Hcl 50 Mg/Ml Vial) 25 mg IM Q6H PRN PRN Reason: Anxiety Last Admin: 06/27/21 01:15 Dose: 25 mg Documented by: EDE Ceftriaxone Sodium 1 gm/ (Sodium Chloride) 50 mls @ 100 mls/hr IV Q24H [facility] Last Infusion: 06/28/21 12:12 Dose: 0 mls/hr Documented by: SHAQUILLE Thiamine HCl 100 mg/ Sodium (Chloride) 101 mls @ 202 mls/hr IV BID [facility] Last Admin: 06/29/21 08:46 Dose: 202 mls/hr Documented by: SHAQUILLE Lisinopril (Lisinopril 40 Mg Tablet) 40 mg PO DAILY [facility]; Protocol Last Admin: 06/29/21 08:32 Dose: 40 mg Documented by: SHAQUILLE Metoprolol Succinate (Metoprolol Succinate Er 25 Mg Tab.Er.24h) 25 mg PO BEDTIME [facility]; Protocol Last Admin: 06/28/21 19:55 Dose: 25 mg Documented by: DIMITRI Naltrexone HCl (Naltrexone Hcl 50 Mg Tablet) 50 mg PO DAILY [facility] Last Admin: 06/29/21 08:30 Dose: 50 mg Documented by: SHAQUILLE Nicotine (Nicotine 21 Mg Patch.Td24) 21 mg TRANSDERMA DAILY [facility] Last Admin: 06/29/21 08:30 Dose: 21 mg Documented by: SHAQUILLE Olanzapine (Olanzapine Odt 10 Mg Tab.Rapdis) 20 mg TRANSLINGU BEDTIME [facility] Last Admin: 06/28/21 19:56 Dose: 20 mg Documented by: DIMITRI Omeprazole (Omeprazole 40 Mg Capsule.Dr) 40 mg PO DAILY@0630 [facility] Last Admin: 06/29/21 06:35 Dose: 40 mg Documented by: DIMITRI Ondansetron HCl (Ondansetron Hcl 4 Mg/2 Ml Vial) 4 mg IVPUSH Q8H PRN PRN Reason: Nausea and Vomiting Pharmacy Consult (Consult Rx Perform Med Rec) 1 each MISCELLANE ONCE PRN PRN Reason: Consult order Phenobarbital (Phenobarbital 15 Mg Tablet) 15 mg PO DAILY [facility]; Protocol Stop: 07/01/21 09:01 Phenytoin Sodium (Phenytoin Sodium 100 Mg/2 Ml Vial) 100 mg IVPUSH BID [facility] Last Admin: 06/29/21 08:29 Dose: 100 mg Documented by: SHAQUILLE Sodium Chloride (0.9 % Sodium Chloride Flush 3 Ml Syringe) 3 ml IVFLUSH QSHIFT [facility] Last Admin: 06/29/21 07:11 Dose: Not Given Documented by: SHAQUILLE Non-Admin Reason: IV Running Spironolactone (Spironolactone 25 Mg Tablet) 50 mg PO DAILY [facility]; Protocol Last Admin: 06/29/21 08:30 Dose: 50 mg Documented by: SHAQUILLE Tamsulosin HCl (Tamsulosin Hcl 0.4 Mg Capsule) 0.4 mg PO DAILY [facility] Last Admin: 06/29/21 08:30 Dose: 0.4 mg Documented by: SHAQUILLE Labs CBC & Chem 7: 06/29/21 05:53 06/29/21 05:53 Labs: Laboratory Results - last 24 hr 06/29/21 06/29/21 05:53 05:53 MCV 94.7 MCH 30.7 MCHC 32.4 RDW 12.4 Plt Count 269 MPV 9.2 L Absolute Nucleated RBC 0.000 Nucleated RBC % (auto) 0.0 Anion Gap 15 Estim Creat Clear Calc 103.2 Estimated GFR > 60 Fasting Glucose 90 Calcium 9.2 Microbiology Microbiology Results: Microbiology 06/23/21 10:57 Blood Culture - Final Blood - Venous No growth after 5 days. Assessment and Plan (1) Toxic metabolic encephalopathy: Status: Acute (2) Urinary tract infection: Status: Acute (3) Acute kidney injury: Status: Acute (4) Rhabdomyolysis: Status: Acute (5) Hallucination: Status: Acute Plan A 65 years old male with PMH of alcohol abuse, GERD, cardiomyopathy, seizure disorder who presents to the hospital via EMS after being found encephalopathic. Toxic metabolic encephalopathy alcohol dependence with withdrawal vs accidental overdosing (given duplicate meds by 2 different care givers) possible b1 defeciency phenobarb, ciwa, thiamine no evidence of cirrhosis on labs or imaging slowly improving improving, but not at baseline which is independent in most ADLs now following more directions, but didnt work with pt yet HCV treated, no cirrhosis UTI Continue ceftriaxone Acute kidney injury, resolved chronic chf with recovered EF appears dry, continue fluids metoprolol, restarted lisinopril, aldactone History of seizure disorder phenytoin Hypertension lisinopril, spironolactone, metoprolol Psychiatric disorder continue olanzapine DVT PPX Heparin Quality Stroke Does the patient have a stroke diagnosis?: No VTE Prior VTE?: No VTE Risk Level:: Medical - moderate - high VTE Device Contraindication: Treatment Not Indicated VTE Drug Contraindication: N/A - Med Ordered
[2021-06-29 11:30] VITALS: BP 147/84; PULSE 76; RESP 18; TEMP 36.1; O2SAT 98
[2021-06-29] MEDS: cefTRIAXone sodium 1 GM in 0.9 % Sodium Chloride 50 ML IV (11:35)
[2021-06-29 15:45] VITALS: BP 182/79; PULSE 68; RESP 18; TEMP 37.1; O2SAT 94
[2021-06-29 19:18] VITALS: BP 154/69; PULSE 64; RESP 18; TEMP 526.6; TEMP 980; O2SAT 96
[2021-06-29] MEDS: Thiamine HCL 100 MG in 0.9 % Sodium Chloride 100 ML IV (19:40)
[2021-06-29] MEDS: OLANZapine ODT 10 MG TAB.RAPDIS 20 MG TRANSLINGU (19:44)
[2021-06-29] MEDS: Metoprolol Succinate ER 25 MG TAB.ER.24H PO (19:45)
[2021-06-29] MEDS: Atorvastatin Calcium 40 MG TABLET PO (19:45)
--- NOTE | 2021-06-29 22:43 | PC.NURSE ---
Lloyd very agitated about 7pm, removing his IV site. He calmed, with help of court interpreter, and voided after inc.
--- NOTE | 2021-06-29 23:00 | PC.NURSE ---
11 pm Bladder scan for 470 cc. No cath required.
[2021-06-29] MEDS: 0.9 % Sodium Chloride Flush 3 ML SYRINGE IVFLUSH (23:49)
[2021-06-30] VITALS (7 sets, daily range): BP systolic 125–181; BP diastolic 55–87; PULSE 60–84; RESP 16–20; TEMP 36.2–37; O2SAT 94–98
[2021-06-30 05:48] LABS: Hematocrit 35.2 % (42.0-52.0); Hemoglobin 11.5 g/dl (14.0-18.0); Mean Corpuscular HGB Conc 32.7 g/dl (31.0-36.0); Mean Corpuscular Hemoglobin 29.9 pg (27.0-33.0); Mean Corpuscular Volume 91.7 fL (80.0-98.0); Mean Platelet Volume 9.3 fL (9.4-12.4); Platelet Count 292 X10*3/uL (160-400); Red Blood Count 3.84 X10*6/uL (4.60-5.80); Red Cell Distribution Width 12.3 % (11.0-16.0); White Blood Count 8.6 X10*3/uL (4.8-10.8)
[2021-06-30 06:11] LABS: Anion Gap 14 (12-20); Blood Urea Nitrogen 10 mg/dL (9-16); Calcium 9.4 mg/dL (8.4-10.2); Carbon Dioxide 26 mmol/L (22-29); Chloride 105 mmol/L (96-108); Creatinine Clr Calc Pharmacy 101.8; Estimated Glomerular Filt Rate > 60; Glucose Fasting 84 mg/dL (60-99); Potassium 4.5 mmol/L (3.3-5.1); Sodium 140 mmol/L (135-145)
[2021-06-30] MEDS: Omeprazole 40 MG CAPSULE.DR PO (06:23)
[2021-06-30] MEDS: Spironolactone 25 MG TABLET 50 MG PO (08:24)
[2021-06-30] MEDS: Nicotine 21 MG PATCH.TD24 TRANSDERMA (08:26)
[2021-06-30] MEDS: Folic Acid 1 MG TABLET PO (08:26)
[2021-06-30] MEDS: Heparin Sodium,Porcine 5,000 UNIT/ML VIAL 5000 UNIT SUBCUT ×2 (08:26→20:12)
[2021-06-30] MEDS: Naltrexone HCl 50 MG TABLET PO (08:26)
[2021-06-30] MEDS: lisinopriL 40 MG TABLET PO (08:26)
[2021-06-30] MEDS: PHENobarbitaL 15 MG TABLET PO (08:26)
[2021-06-30] MEDS: amLODIPine Besylate 5 MG TABLET PO (08:26)
[2021-06-30] MEDS: Tamsulosin HCL 0.4 MG CAPSULE PO (08:26)
[2021-06-30] MEDS: 0.9 % Sodium Chloride Flush 3 ML SYRINGE IVFLUSH ×2 (08:27→15:59)
[2021-06-30] MEDS: Phenytoin Sodium 100 MG/2 ML VIAL IVPUSH ×2 (08:27→20:12)
[2021-06-30] MEDS: Thiamine HCL 100 MG in 0.9 % Sodium Chloride 100 ML 202 MG IV ×2 (08:27→20:12)
--- NOTE | 2021-06-30 09:13 | HO.PM.IMPN ---
Subjective Subjective Date of Service: 06/30/21 Interval History: cc: ams interval history: confused Cardiovascular Cardiovascular: Reports no additional cardiovascular complaints Gastrointestinal Gastrointestinal: Reports no additional gastrointestinal complaints Physical Exam Vital Signs: Vital Signs: Last Vital Signs Temp 98.6 F 06/30/21 07:31 Pulse 84 06/30/21 07:31 Resp 16 06/30/21 07:31 BP 149/68 H 06/30/21 07:31 Pulse Ox 98 06/30/21 07:31 BMI result Body Mass Index 27.8 General: Alert, confused Resp:? CTA bilateral, no accessory muscles used CVS: S1,S2,RRR GI: soft, non tender, non distended Neuro:? motor grossly intact, alert Psych:? impaired insight? Objective Data Active Medications Acetaminophen (Acetaminophen 325 Mg Tablet) 650 mg PO Q6H PRN PRN Reason: Pain, Mild (Pain Scale 1-3) Last Admin: 06/27/21 01:08 Dose: 650 mg Documented by: EDE Amlodipine Besylate (Amlodipine Besylate 5 Mg Tablet) 5 mg PO DAILY [facility]; Protocol Last Admin: 06/30/21 08:26 Dose: 5 mg Documented by: SHAQUILLE Atorvastatin Calcium (Atorvastatin Calcium 40 Mg Tablet) 40 mg PO BEDTIME [facility] Last Admin: 06/29/21 19:45 Dose: 40 mg Documented by: FRANCIS Folic Acid (Folic Acid 1 Mg Tablet) 1 mg PO DAILY [facility] Last Admin: 06/30/21 08:26 Dose: 1 mg Documented by: SHAQUILLE Heparin Sodium (Porcine) (Heparin Sodium,Porcine 5,000 Unit/Ml Vial) 5,000 unit SUBCUT Q12H [facility] Last Admin: 06/30/21 08:26 Dose: 5,000 unit Documented by: SHAQUILLE Hydroxyzine HCl (Hydroxyzine Hcl 50 Mg/Ml Vial) 25 mg IM Q6H PRN PRN Reason: Anxiety Last Admin: 06/27/21 01:15 Dose: 25 mg Documented by: EDE Ceftriaxone Sodium 1 gm/ (Sodium Chloride) 50 mls @ 100 mls/hr IV Q24H [facility] Last Infusion: 06/29/21 12:06 Dose: 0 mls/hr Documented by: SHAQUILLE Thiamine HCl 100 mg/ Sodium (Chloride) 101 mls @ 202 mls/hr IV BID [facility] Last Admin: 06/30/21 08:27 Dose: 202 mls/hr Documented by: SHAQUILLE Lisinopril (Lisinopril 40 Mg Tablet) 40 mg PO DAILY [facility]; Protocol Last Admin: 06/30/21 08:26 Dose: 40 mg Documented by: SHAQUILLE Metoprolol Succinate (Metoprolol Succinate Er 25 Mg Tab.Er.24h) 25 mg PO BEDTIME [facility]; Protocol Last Admin: 06/29/21 19:45 Dose: 25 mg Documented by: FRANCIS Naltrexone HCl (Naltrexone Hcl 50 Mg Tablet) 50 mg PO DAILY [facility] Last Admin: 06/30/21 08:26 Dose: 50 mg Documented by: SHAQUILLE Nicotine (Nicotine 21 Mg Patch.Td24) 21 mg TRANSDERMA DAILY [facility] Last Admin: 06/30/21 08:26 Dose: 21 mg Documented by: SHAQUILLE Olanzapine (Olanzapine Odt 10 Mg Tab.Rapdis) 20 mg TRANSLINGU BEDTIME [facility] Last Admin: 06/29/21 19:44 Dose: 20 mg Documented by: FRANCIS Omeprazole (Omeprazole 40 Mg Capsule.Dr) 40 mg PO DAILY@0630 [facility] Last Admin: 06/30/21 06:23 Dose: 40 mg Documented by: EDE Ondansetron HCl (Ondansetron Hcl 4 Mg/2 Ml Vial) 4 mg IVPUSH Q8H PRN PRN Reason: Nausea and Vomiting Pharmacy Consult (Consult Rx Perform Med Rec) 1 each MISCELLANE ONCE PRN PRN Reason: Consult order Phenobarbital (Phenobarbital 15 Mg Tablet) 15 mg PO DAILY [facility]; Protocol Stop: 07/01/21 09:01 Last Admin: 06/30/21 08:26 Dose: 15 mg Documented by: SHAQUILLE Phenytoin Sodium (Phenytoin Sodium 100 Mg/2 Ml Vial) 100 mg IVPUSH BID [facility] Last Admin: 06/30/21 08:27 Dose: 100 mg Documented by: SHAQUILLE Sodium Chloride (0.9 % Sodium Chloride Flush 3 Ml Syringe) 3 ml IVFLUSH QSHIFT [facility] Last Admin: 06/30/21 08:27 Dose: 3 ml Documented by: SHAQUILLE Spironolactone (Spironolactone 25 Mg Tablet) 50 mg PO DAILY [facility]; Protocol Last Admin: 06/30/21 08:24 Dose: 50 mg Documented by: SHAQUILLE Tamsulosin HCl (Tamsulosin Hcl 0.4 Mg Capsule) 0.4 mg PO DAILY [facility] Last Admin: 06/30/21 08:26 Dose: 0.4 mg Documented by: SHAQUILLE Labs CBC & Chem 7: 06/30/21 05:14 06/30/21 05:14 Labs: Laboratory Results - last 24 hr 06/30/21 06/30/21 05:14 05:14 MCV 91.7 MCH 29.9 MCHC 32.7 RDW 12.3 Plt Count 292 MPV 9.3 L Absolute Nucleated RBC 0.000 Nucleated RBC % (auto) 0.0 Anion Gap 14 Estim Creat Clear Calc 101.8 Estimated GFR > 60 Fasting Glucose 84 Calcium 9.4 Assessment and Plan (1) Toxic metabolic encephalopathy: Status: Acute (2) Urinary tract infection: Status: Acute (3) Acute kidney injury: Status: Acute (4) Rhabdomyolysis: Status: Acute (5) Hallucination: Status: Acute Plan A 65 years old male with PMH of alcohol abuse, GERD, cardiomyopathy, seizure disorder who presents to the hospital via EMS after being found encephalopathic. Toxic metabolic encephalopathy alcohol dependence with withdrawal vs accidental overdosing (given duplicate meds by 2 different care givers) possible b1 defeciency phenobarb, ciwa, thiamine no evidence of cirrhosis on labs or imaging slowly improving improving, but not at baseline which is independent in most ADLs now following more directions, but didnt work with pt yet, will retry HCV treated, no cirrhosis UTI completed 6 days rocephin Acute kidney injury, resolved chronic chf with recovered EF appears dry, continue fluids metoprolol, restarted lisinopril, aldactone History of seizure disorder phenytoin Hypertension lisinopril, spironolactone, metoprolol Psychiatric disorder continue olanzapine DVT PPX Heparin Quality Stroke Does the patient have a stroke diagnosis?: No VTE Prior VTE?: No VTE Risk Level:: Medical - moderate - high VTE Device Contraindication: Treatment Not Indicated VTE Drug Contraindication: N/A - Med Ordered
--- NOTE | 2021-06-30 11:17 | MHC.CM.PN ---
met sade pt pt will str prior to returning home referrals made
[2021-06-30] MEDS: OLANZapine ODT 10 MG TAB.RAPDIS 20 MG TRANSLINGU (20:12)
[2021-06-30] MEDS: Atorvastatin Calcium 40 MG TABLET PO (20:12)
[2021-06-30] MEDS: Metoprolol Succinate ER 25 MG TAB.ER.24H PO (20:12)
[2021-07-01] VITALS (7 sets, daily range): BP systolic 112–184; BP diastolic 55–81; PULSE 60–78; RESP 17–20; TEMP 36.2–36.8; O2SAT 95–97
[2021-07-01] MEDS: 0.9 % Sodium Chloride Flush 3 ML SYRINGE IVFLUSH ×2 (01:29→16:30)
[2021-07-01] MEDS: Omeprazole 40 MG CAPSULE.DR PO (05:55)
[2021-07-01] MEDS: Thiamine HCL 100 MG in 0.9 % Sodium Chloride 100 ML 202 MG IV ×2 (10:00→19:57)
--- NOTE | 2021-07-01 10:01 | HO.PM.IMPN ---
Subjective Subjective Date of Service: 07/01/21 Interval History: cc: ams interval history: confused Cardiovascular Cardiovascular: Reports no additional cardiovascular complaints Respiratory Respiratory: Reports no additional respiratory complaints Physical Exam Vital Signs: Vital Signs: Last Vital Signs Temp 98 F 07/01/21 08:00 Pulse 62 07/01/21 08:00 Resp 18 07/01/21 08:00 BP 184/79 H 07/01/21 08:00 Pulse Ox 97 07/01/21 08:00 BMI result Body Mass Index 27.8 General: Alert, confused Resp:? CTA bilateral, no accessory muscles used CVS: S1,S2,RRR GI: soft, non tender, non distended Neuro:? motor grossly intact, alert Psych:? impaired insight? Objective Data Active Medications Acetaminophen (Acetaminophen 325 Mg Tablet) 650 mg PO Q6H PRN PRN Reason: Pain, Mild (Pain Scale 1-3) Last Admin: 06/27/21 01:08 Dose: 650 mg Documented by: EDE Amlodipine Besylate (Amlodipine Besylate 5 Mg Tablet) 5 mg PO DAILY [facility]; Protocol Last Admin: 06/30/21 08:26 Dose: 5 mg Documented by: SHAQUILLE Atorvastatin Calcium (Atorvastatin Calcium 40 Mg Tablet) 40 mg PO BEDTIME [facility] Last Admin: 06/30/21 20:12 Dose: 40 mg Documented by: ANUSHA Folic Acid (Folic Acid 1 Mg Tablet) 1 mg PO DAILY [facility] Last Admin: 06/30/21 08:26 Dose: 1 mg Documented by: SHAQUILLE Heparin Sodium (Porcine) (Heparin Sodium,Porcine 5,000 Unit/Ml Vial) 5,000 unit SUBCUT Q12H [facility] Last Admin: 06/30/21 20:12 Dose: 5,000 unit Documented by: ANUSHA Hydroxyzine HCl (Hydroxyzine Hcl 50 Mg/Ml Vial) 25 mg IM Q6H PRN PRN Reason: Anxiety Last Admin: 06/27/21 01:15 Dose: 25 mg Documented by: EDE Thiamine HCl 100 mg/ Sodium (Chloride) 101 mls @ 202 mls/hr IV BID [facility] Last Infusion: 06/30/21 20:53 Dose: 0 mls/hr Documented by: ANUSHA Lisinopril (Lisinopril 40 Mg Tablet) 40 mg PO DAILY [facility]; Protocol Last Admin: 06/30/21 08:26 Dose: 40 mg Documented by: SHAQUILLE Metoprolol Succinate (Metoprolol Succinate Er 25 Mg Tab.Er.24h) 25 mg PO BEDTIME [facility]; Protocol Last Admin: 06/30/21 20:12 Dose: 25 mg Documented by: ANUSHA Naltrexone HCl (Naltrexone Hcl 50 Mg Tablet) 50 mg PO DAILY [facility] Last Admin: 06/30/21 08:26 Dose: 50 mg Documented by: SHAQUILLE Nicotine (Nicotine 21 Mg Patch.Td24) 21 mg TRANSDERMA DAILY [facility] Last Admin: 06/30/21 08:26 Dose: 21 mg Documented by: SHAQUILLE Olanzapine (Olanzapine Odt 10 Mg Tab.Rapdis) 20 mg TRANSLINGU BEDTIME [facility] Last Admin: 06/30/21 20:12 Dose: 20 mg Documented by: ANUSHA Omeprazole (Omeprazole 40 Mg Capsule.Dr) 40 mg PO DAILY@0630 [facility] Last Admin: 07/01/21 05:55 Dose: 40 mg Documented by: ANUSHA Ondansetron HCl (Ondansetron Hcl 4 Mg/2 Ml Vial) 4 mg IVPUSH Q8H PRN PRN Reason: Nausea and Vomiting Pharmacy Consult (Consult Rx Perform Med Rec) 1 each MISCELLANE ONCE PRN PRN Reason: Consult order Phenytoin Sodium (Phenytoin Sodium 100 Mg/2 Ml Vial) 100 mg IVPUSH BID [facility] Last Admin: 06/30/21 20:12 Dose: 100 mg Documented by: ANUSHA Sodium Chloride (0.9 % Sodium Chloride Flush 3 Ml Syringe) 3 ml IVFLUSH QSHIFT [facility] Last Admin: 07/01/21 01:29 Dose: 3 ml Documented by: ANUSHA Spironolactone (Spironolactone 25 Mg Tablet) 50 mg PO DAILY [facility]; Protocol Last Admin: 06/30/21 08:24 Dose: 50 mg Documented by: SHAQUILLE Tamsulosin HCl (Tamsulosin Hcl 0.4 Mg Capsule) 0.4 mg PO DAILY [facility] Last Admin: 06/30/21 08:26 Dose: 0.4 mg Documented by: SHAQUILLE Labs CBC & Chem 7: 06/30/21 05:14 06/30/21 05:14 Assessment and Plan (1) Toxic metabolic encephalopathy: Status: Acute (2) Urinary tract infection: Status: Acute (3) Acute kidney injury: Status: Acute (4) Rhabdomyolysis: Status: Acute (5) Hallucination: Status: Acute Plan A 65 years old male with PMH of alcohol abuse, GERD, cardiomyopathy, seizure disorder who presents to the hospital via EMS after being found encephalopathic. Toxic metabolic encephalopathy alcohol dependence with withdrawal vs accidental overdosing (given duplicate meds by 2 different care givers) possible b1 defeciency phenobarb, ciwa, thiamine no evidence of cirrhosis on labs or imaging slowly improving improving, but not at baseline which is independent in most ADLs now following more directions, but didnt work with pt yet, plan to retry today, probably will need STR on discharge HCV treated, no cirrhosis UTI completed 6 days rocephin Acute kidney injury, resolved chronic chf with recovered EF metoprolol, restarted lisinopril, aldactone History of seizure disorder phenytoin Hypertension lisinopril, spironolactone, metoprolol Psychiatric disorder continue olanzapine DVT PPX Heparin Quality Stroke Does the patient have a stroke diagnosis?: No VTE Prior VTE?: No VTE Risk Level:: Medical - moderate - high VTE Device Contraindication: Treatment Not Indicated VTE Drug Contraindication: N/A - Med Ordered
[2021-07-01] MEDS: Heparin Sodium,Porcine 5,000 UNIT/ML VIAL 5000 UNIT SUBCUT ×2 (10:03→19:57)
[2021-07-01] MEDS: Nicotine 21 MG PATCH.TD24 TRANSDERMA (10:07)
[2021-07-01] MEDS: Tamsulosin HCL 0.4 MG CAPSULE PO (10:08)
[2021-07-01] MEDS: Phenytoin Sodium 100 MG/2 ML VIAL IVPUSH ×2 (10:11→19:59)
[2021-07-01] MEDS: PHENobarbitaL 15 MG TABLET PO (10:13)
[2021-07-01] MEDS: Folic Acid 1 MG TABLET PO (10:14)
[2021-07-01] MEDS: lisinopriL 40 MG TABLET PO (10:14)
[2021-07-01] MEDS: Naltrexone HCl 50 MG TABLET PO (10:14)
[2021-07-01] MEDS: amLODIPine Besylate 5 MG TABLET PO (10:14)
[2021-07-01] MEDS: Spironolactone 25 MG TABLET 50 MG PO (10:14)
--- NOTE | 2021-07-01 14:27 | PC.NURSE ---
Bladder scanned for PVR of 407 no cath needed.
[2021-07-01] MEDS: hydrOXYzine HCL 50 MG/ML VIAL 25 MG IM (18:36)
[2021-07-01] MEDS: Atorvastatin Calcium 40 MG TABLET PO (19:58)
[2021-07-01] MEDS: OLANZapine ODT 10 MG TAB.RAPDIS 20 MG TRANSLINGU (19:58)
[2021-07-01] MEDS: Metoprolol Succinate ER 25 MG TAB.ER.24H PO (19:59)
[2021-07-02 04:00] VITALS: BP 158/80; PULSE 63; RESP 16; TEMP 36.2; O2SAT 97
[2021-07-02] MEDS: Omeprazole 40 MG CAPSULE.DR PO (05:41)
[2021-07-02 06:40] LABS: Hematocrit 35.1 % (42.0-52.0); Hemoglobin 11.4 g/dl (14.0-18.0); Mean Corpuscular HGB Conc 32.5 g/dl (31.0-36.0); Mean Corpuscular Hemoglobin 30.4 pg (27.0-33.0); Mean Corpuscular Volume 93.6 fL (80.0-98.0); Mean Platelet Volume 9.3 fL (9.4-12.4); Platelet Count 300 X10*3/uL (160-400); Red Blood Count 3.75 X10*6/uL (4.60-5.80); Red Cell Distribution Width 12.8 % (11.0-16.0); White Blood Count 9.3 X10*3/uL (4.8-10.8)
[2021-07-02 06:41] LABS: Anion Gap 14 (12-20); Blood Urea Nitrogen 16 mg/dL (9-16); Calcium 9.1 mg/dL (8.4-10.2); Carbon Dioxide 22 mmol/L (22-29); Chloride 106 mmol/L (96-108); Creatinine Clr Calc Pharmacy 94.3; Estimated Glomerular Filt Rate > 60; Glucose Fasting 109 mg/dL (60-99); Potassium 4.9 mmol/L (3.3-5.1); Sodium 137 mmol/L (135-145)
[2021-07-02 07:22] VITALS: BP 124/62; PULSE 71; RESP 18; TEMP 37.1; O2SAT 96
[2021-07-02] MEDS: Phenytoin Sodium 100 MG/2 ML VIAL IVPUSH ×2 (10:06→20:47)
[2021-07-02] MEDS: Thiamine HCL 100 MG in 0.9 % Sodium Chloride 100 ML 202 MG IV ×2 (10:07→20:51)
[2021-07-02] MEDS: Nicotine 21 MG PATCH.TD24 TRANSDERMA (10:08)
[2021-07-02] MEDS: Heparin Sodium,Porcine 5,000 UNIT/ML VIAL 5000 UNIT SUBCUT ×2 (10:08→20:49)
[2021-07-02] MEDS: amLODIPine Besylate 5 MG TABLET PO (10:09)
[2021-07-02] MEDS: Folic Acid 1 MG TABLET PO (10:10)
[2021-07-02] MEDS: lisinopriL 40 MG TABLET PO (10:10)
[2021-07-02] MEDS: Spironolactone 25 MG TABLET 50 MG PO (10:10)
[2021-07-02] MEDS: Naltrexone HCl 50 MG TABLET PO (10:11)
--- NOTE | 2021-07-02 10:11 | P.PNIM_ITS ---
Subjective Subjective Date of Service: 07/02/21 Interval History: Seen and evaluated this morning Alert and interactive no reported hallucinations Confused at baseline No reported overnight events Review of Systems No fever, chills or weakness No chest pain, palpitation No shortness of breath or coughing No abdominal pain, nausea or vomiting No urinary symptoms No any rash or wounds Physical Exam Vital Signs: Vital Signs: Last Vital Signs Temp 98.7 F 07/02/21 07:22 Pulse 71 07/02/21 07:22 Resp 18 07/02/21 07:22 BP 124/62 07/02/21 07:22 Pulse Ox 96 07/02/21 07:22 BMI result Body Mass Index 27.8 Const: Other: Constitutional : alert, interactive, not in distress Neck : Normal inspection, Supple Cardiovascular : RRR, S1 S2, no lower extremity edema Respiratory : Fair bilateral air entry, no crackles, wheezes or rhonchi Gastrointestinal: soft, lax, Normal bowel sounds, Non tender or ascites Skin : Warm, Dry Neurological : alert, oriented to self and place, confused about time and person, No focal deficit Objective Data Active Medications Acetaminophen (Acetaminophen 325 Mg Tablet) 650 mg PO Q6H PRN PRN Reason: Pain, Mild (Pain Scale 1-3) Last Admin: 06/27/21 01:08 Dose: 650 mg Documented by: EDE Amlodipine Besylate (Amlodipine Besylate 5 Mg Tablet) 5 mg PO DAILY [facility]; Protocol Last Admin: 07/01/21 10:14 Dose: 5 mg Documented by: TYLER Atorvastatin Calcium (Atorvastatin Calcium 40 Mg Tablet) 40 mg PO BEDTIME [facility] Last Admin: 07/01/21 19:58 Dose: 40 mg Documented by: ALTON Folic Acid (Folic Acid 1 Mg Tablet) 1 mg PO DAILY [facility] Last Admin: 07/01/21 10:14 Dose: 1 mg Documented by: TYLER Heparin Sodium (Porcine) (Heparin Sodium,Porcine 5,000 Unit/Ml Vial) 5,000 unit SUBCUT Q12H [facility] Last Admin: 07/01/21 19:57 Dose: 5,000 unit Documented by: ALTON Hydroxyzine HCl (Hydroxyzine Hcl 50 Mg/Ml Vial) 25 mg IM Q6H PRN PRN Reason: Anxiety Last Admin: 07/01/21 18:36 Dose: 25 mg Documented by: ALTNO Thiamine HCl 100 mg/ Sodium (Chloride) 101 mls @ 202 mls/hr IV BID [facility] Last Infusion: 07/01/21 20:42 Dose: 0 mls/hr Documented by: ALTON Lisinopril (Lisinopril 40 Mg Tablet) 40 mg PO DAILY [facility]; Protocol Last Admin: 07/01/21 10:14 Dose: 40 mg Documented by: TYLER Metoprolol Succinate (Metoprolol Succinate Er 25 Mg Tab.Er.24h) 25 mg PO BEDTIME [facility]; Protocol Last Admin: 07/01/21 19:59 Dose: 25 mg Documented by: ALTON Naltrexone HCl (Naltrexone Hcl 50 Mg Tablet) 50 mg PO DAILY [facility] Last Admin: 07/01/21 10:14 Dose: 50 mg Documented by: TYLER Nicotine (Nicotine 21 Mg Patch.Td24) 21 mg TRANSDERMA DAILY [facility] Last Admin: 07/01/21 10:07 Dose: 21 mg Documented by: TYLER Olanzapine (Olanzapine Odt 10 Mg Tab.Rapdis) 20 mg TRANSLINGU BEDTIME [facility] Last Admin: 07/01/21 19:58 Dose: 20 mg Documented by: ALTON Omeprazole (Omeprazole 40 Mg Capsule.Dr) 40 mg PO DAILY@0630 [facility] Last Admin: 07/02/21 05:41 Dose: 40 mg Documented by: DANI Ondansetron HCl (Ondansetron Hcl 4 Mg/2 Ml Vial) 4 mg IVPUSH Q8H PRN PRN Reason: Nausea and Vomiting Pharmacy Consult (Consult Rx Perform Med Rec) 1 each MISCELLANE ONCE PRN PRN Reason: Consult order Phenytoin Sodium (Phenytoin Sodium 100 Mg/2 Ml Vial) 100 mg IVPUSH BID [facility] Last Admin: 07/01/21 19:59 Dose: 100 mg Documented by: ALTON Sodium Chloride (0.9 % Sodium Chloride Flush 3 Ml Syringe) 3 ml IVFLUSH QSHIFT [facility] Last Admin: 07/02/21 00:00 Dose: 3 ml Documented by: DANI Spironolactone (Spironolactone 25 Mg Tablet) 50 mg PO DAILY [facility]; Protocol Last Admin: 07/01/21 10:14 Dose: 50 mg Documented by: TYLER Tamsulosin HCl (Tamsulosin Hcl 0.4 Mg Capsule) 0.4 mg PO DAILY [facility] Last Admin: 07/01/21 10:08 Dose: 0.4 mg Documented by: TYLER Labs CBC & Chem 7: 07/02/21 06:02 07/02/21 06:02 Labs: Laboratory Results - last 24 hr 07/02/21 07/02/21 06:02 06:02 MCV 93.6 MCH 30.4 MCHC 32.5 RDW 12.8 Plt Count 300 MPV 9.3 L Absolute Nucleated RBC 0.000 Nucleated RBC % (auto) 0.0 Anion Gap 14 Estim Creat Clear Calc 94.3 Estimated GFR > 60 Fasting Glucose 109 H Calcium 9.1 Assessment and Plan (1) Toxic metabolic encephalopathy: Status: Acute (2) Urinary tract infection: Status: Acute Plan A 65 years old male with PMH of alcohol abuse, GERD, cardiomyopathy, seizure disorder who presents to the hospital via EMS after being found encephalopathic. Toxic metabolic encephalopathy alcohol dependence with withdrawal vs accidental overdosing (given duplicate meds by 2 different care givers) possible b1 defeciency phenobarb, ciwa, thiamine no evidence of cirrhosis on labs or imaging improving, but not at baseline which is independent in most ADLs following more directions, plan to work with PT today, probably will need STR on discharge HCV treated, no cirrhosis UTI completed 6 days rocephin Acute kidney injury, resolved chronic chf with recovered EF metoprolol, restarted lisinopril, aldactone History of seizure disorder phenytoin Hypertension lisinopril, spironolactone, metoprolol Psychiatric disorder continue olanzapine DVT PPX Heparin Quality Stroke Does the patient have a stroke diagnosis?: No VTE Prior VTE?: No VTE Risk Level:: Medical - moderate - high VTE Device Contraindication: Treatment Not Indicated VTE Drug Contraindication: N/A - Med Ordered
[2021-07-02] MEDS: Tamsulosin HCL 0.4 MG CAPSULE PO (10:12)
[2021-07-02] MEDS: 0.9 % Sodium Chloride Flush 3 ML SYRINGE IVFLUSH ×3 (10:13→16:24)
[2021-07-02 10:38] VITALS: BP 136/73; PULSE 56; RESP 18; TEMP 36.7; O2SAT 98
[2021-07-02 11:02] VITALS: BP 136/73; PULSE 56; O2SAT 98
--- NOTE | 2021-07-02 11:40 | MHC.CM.PN ---
PER MEDICAL ROUNDS, PATIENT CAN DC TODAY IF OFFERED A BED. UPDATED PT EVALUATION UPLOADED TO FACILITIES. CASE MANAGEMENT FOLLOWING FOR AN OFFER FOR PATIENT PREFERENCE
--- NOTE | 2021-07-02 12:19 | MHC.CM.PN ---
PER REVIEW OF CHART, NO COVID DATE AND BRAND INFORMATION FOUND CALL TO EMMASIN PRISCA @ [phone] PATIENT HAD MODERNA 07/26/20 08/23/20 03/20/21 INFORMATION ADDED TO EXPANSE AND GIVEN TO SNF REFERRALS.
--- NOTE | 2021-07-02 13:50 | MHC.CM.PN ---
Amanda gómez yesterday. will need to be off for 48 hours and no longer using the ciwa scale for scoring. case management following
[2021-07-02 19:50] VITALS: BP 174/86; PULSE 70; RESP 18; TEMP 36.8; O2SAT 93
[2021-07-02] MEDS: Metoprolol Succinate ER 25 MG TAB.ER.24H PO (20:50)
[2021-07-02] MEDS: Atorvastatin Calcium 40 MG TABLET PO (20:51)
[2021-07-02] MEDS: OLANZapine ODT 10 MG TAB.RAPDIS 20 MG TRANSLINGU (20:52)
[2021-07-02 23:29] VITALS: BP 135/61; PULSE 72; RESP 17; TEMP 36.9; O2SAT 95
[2021-07-03 04:00] VITALS: BP 132/89; PULSE 82; RESP 17; TEMP 36.3; O2SAT 97
[2021-07-03] MEDS: Omeprazole 40 MG CAPSULE.DR PO (06:34)
[2021-07-03 07:32] VITALS: BP 188/91; PULSE 85; RESP 18; TEMP 37.1; O2SAT 98
--- NOTE | 2021-07-03 08:14 | PC.NURSE ---
Skin assessment completed. Patient has redness to scrotum and bilateral buttocks from IAD. Triad cream applied.
[2021-07-03] MEDS: Nicotine 21 MG PATCH.TD24 TRANSDERMA (08:29)
[2021-07-03] MEDS: Phenytoin Sodium 100 MG/2 ML VIAL IVPUSH (08:30)
[2021-07-03] MEDS: Folic Acid 1 MG TABLET PO (08:30)
[2021-07-03] MEDS: Naltrexone HCl 50 MG TABLET PO (08:30)
[2021-07-03] MEDS: Tamsulosin HCL 0.4 MG CAPSULE 0.8 MG PO (08:30)
[2021-07-03] MEDS: Heparin Sodium,Porcine 5,000 UNIT/ML VIAL 5000 UNIT SUBCUT ×2 (08:30→20:05)
[2021-07-03] MEDS: lisinopriL 40 MG TABLET PO (08:30)
[2021-07-03] MEDS: Spironolactone 25 MG TABLET 50 MG PO (08:31)
[2021-07-03] MEDS: 0.9 % Sodium Chloride Flush 3 ML SYRINGE IVFLUSH (08:31)
[2021-07-03] MEDS: Thiamine HCL 100 MG in 0.9 % Sodium Chloride 100 ML IV (08:31)
[2021-07-03] MEDS: amLODIPine Besylate 5 MG TABLET PO (08:31)
[2021-07-03 10:22] VITALS: PULSE 85; O2SAT 98
[2021-07-03 11:35] VITALS: BP 142/67; PULSE 90; RESP 17; TEMP 36.2; O2SAT 97
--- NOTE | 2021-07-03 11:45 | P.PNIM_ITS ---
Subjective Subjective Date of Service: 07/03/21 Interval History: Seen and evaluated this morning Alert and interactive But baseline confused no reported hallucinations or agitation, try to leave the bed on occasions No reported overnight events Review of Systems No fever, chills or weakness No chest pain, palpitation No shortness of breath or coughing No abdominal pain, nausea or vomiting No urinary symptoms No any rash or wounds Physical Exam Vital Signs: Vital Signs: Last Vital Signs Temp 97.2 F 07/03/21 11:35 Pulse 90 07/03/21 11:35 Resp 17 07/03/21 11:35 BP 142/67 H 07/03/21 11:35 Pulse Ox 97 07/03/21 11:35 BMI result Body Mass Index 27.8 Const: Other: Constitutional : alert, interactive, not in distress Neck : Normal inspection, Supple Cardiovascular : RRR, S1 S2, no lower extremity edema Respiratory : Fair bilateral air entry, no crackles, wheezes or rhonchi Gastrointestinal: soft, lax, Normal bowel sounds, Non tender or ascites Skin : Warm, Dry Neurological : alert, oriented to self and place, confused about time and person, No focal deficit Objective Data Active Medications Acetaminophen (Acetaminophen 325 Mg Tablet) 650 mg PO Q6H PRN PRN Reason: Pain, Mild (Pain Scale 1-3) Last Admin: 06/27/21 01:08 Dose: 650 mg Documented by: EDE Amlodipine Besylate (Amlodipine Besylate 5 Mg Tablet) 5 mg PO DAILY [facility]; Protocol Last Admin: 07/03/21 08:31 Dose: 5 mg Documented by: KECIA Atorvastatin Calcium (Atorvastatin Calcium 40 Mg Tablet) 40 mg PO BEDTIME [facility] Last Admin: 07/02/21 20:51 Dose: 40 mg Documented by: ALTON Folic Acid (Folic Acid 1 Mg Tablet) 1 mg PO DAILY [facility] Last Admin: 07/03/21 08:30 Dose: 1 mg Documented by: KECIA Heparin Sodium (Porcine) (Heparin Sodium,Porcine 5,000 Unit/Ml Vial) 5,000 unit SUBCUT Q12H [facility] Last Admin: 07/03/21 08:30 Dose: 5,000 unit Documented by: KECIA Hydroxyzine HCl (Hydroxyzine Hcl 50 Mg/Ml Vial) 25 mg IM Q6H PRN PRN Reason: Anxiety Last Admin: 07/01/21 18:36 Dose: 25 mg Documented by: ALTON Thiamine HCl 100 mg/ Sodium (Chloride) 101 mls @ 202 mls/hr IV BID [facility] Last Infusion: 07/03/21 11:23 Dose: 0 mls/hr Documented by: KECIA Lisinopril (Lisinopril 40 Mg Tablet) 40 mg PO DAILY [facility]; Protocol Last Admin: 07/03/21 08:30 Dose: 40 mg Documented by: KECIA Metoprolol Succinate (Metoprolol Succinate Er 25 Mg Tab.Er.24h) 25 mg PO BEDTIME [facility]; Protocol Last Admin: 07/02/21 20:50 Dose: 25 mg Documented by: ALTON Naltrexone HCl (Naltrexone Hcl 50 Mg Tablet) 50 mg PO DAILY [facility] Last Admin: 07/03/21 08:30 Dose: 50 mg Documented by: KECIA Nicotine (Nicotine 21 Mg Patch.Td24) 21 mg TRANSDERMA DAILY [facility] Last Admin: 07/03/21 08:29 Dose: 21 mg Documented by: KECIA Olanzapine (Olanzapine Odt 10 Mg Tab.Rapdis) 20 mg TRANSLINGU BEDTIME [facility] Last Admin: 07/02/21 20:52 Dose: 20 mg Documented by: ALTON Omeprazole (Omeprazole 40 Mg Capsule.Dr) 40 mg PO DAILY@0630 [facility] Last Admin: 07/03/21 06:34 Dose: 40 mg Documented by: DELFINO Ondansetron HCl (Ondansetron Hcl 4 Mg/2 Ml Vial) 4 mg IVPUSH Q8H PRN PRN Reason: Nausea and Vomiting Pharmacy Consult (Consult Rx Perform Med Rec) 1 each MISCELLANE ONCE PRN PRN Reason: Consult order Phenytoin Sodium (Phenytoin Sodium 100 Mg/2 Ml Vial) 100 mg IVPUSH BID [facility] Last Admin: 07/03/21 08:30 Dose: 100 mg Documented by: KECIA Sodium Chloride (0.9 % Sodium Chloride Flush 3 Ml Syringe) 3 ml IVFLUSH QSHIFT [facility] Last Admin: 07/03/21 08:31 Dose: 3 ml Documented by: KECIA Spironolactone (Spironolactone 25 Mg Tablet) 50 mg PO DAILY [facility]; Protocol Last Admin: 07/03/21 08:31 Dose: 50 mg Documented by: KECIA Tamsulosin HCl (Tamsulosin Hcl 0.4 Mg Capsule) 0.8 mg PO DAILY [facility] Last Admin: 07/03/21 08:30 Dose: 0.8 mg Documented by: KECIA Labs CBC & Chem 7: 07/02/21 06:02 07/02/21 06:02 Assessment and Plan (1) Hallucination: Status: Acute (2) Toxic metabolic encephalopathy: Status: Acute (3) Altered mental status: Status: Acute Plan A 65 years old male with PMH of alcohol abuse, GERD, cardiomyopathy, seizure disorder who presents to the hospital via EMS after being found encephalopathic. Toxic metabolic encephalopathy alcohol dependence with withdrawal vs accidental overdosing (given duplicate meds by 2 different care givers) possible b1 defeciency continue thiamine p.o. no evidence of cirrhosis on labs or imaging improving, but not at baseline which is independent in most ADLs following more directions, will need STR on discharge HCV treated, no cirrhosis UTI completed 6 days rocephin Acute kidney injury, resolved chronic chf with recovered EF metoprolol, restarted lisinopril, aldactone History of seizure disorder phenytoin Hypertension lisinopril, spironolactone, metoprolol Psychiatric disorder continue olanzapine DVT PPX Heparin dispo, pending placement Quality Stroke Does the patient have a stroke diagnosis?: No VTE Prior VTE?: No VTE Risk Level:: Medical - moderate - high VTE Device Contraindication: Treatment Not Indicated VTE Drug Contraindication: N/A - Med Ordered
--- NOTE | 2021-07-03 11:49 | PM.DS ---
DS: Providers Provider Date of Service: 07/04/21 Date of admission: 06/23/21 13:40 Primary care physician: Unknown Physician Consults: 06/23/21 13:40 Consult to Nephrology Routine Consulting Provider: Shan Blakely Reason for consultation: FABIENNE, Rhabdo 06/24/21 12:26 Consult to Psychiatry Routine Consulting Provider: Psych Covering Reason for consultation: Hallucinations, medication advice DS: Diagnosis Discharge Diagnosis (1) Toxic metabolic encephalopathy: Status: Acute (2) Altered mental status: Status: Acute (3) Urinary tract infection: Status: Acute (4) Acute kidney injury: Status: Acute (5) Rhabdomyolysis: Status: Acute DS: Summary Hospital Course Hospital Course: Admission note HPI A 65 years old male with PMH of alcohol abuse, GERD, cardiomyopathy, seizure disorder who presents to the hospital via EMS after being found encephalopathic.? History was taken from ED providers, EMS papers as his neighbor found him encephalopathic and called EMS to evaluate him.? He reports that the patient has been encephalopathic for a week and that has been getting worse associated with weakness. The patient himself was totally obtunded at time of presentation, barely withdrawing from pain and answering with nausea is only.? Vital signs fairly stable.? Blood work showed an evidence of acute kidney injury, elevated CK level and evidence of urine infection.? He will be admitted for further evaluation and treatment. Hospital course The patient was admitted to the hospital for evaluation of toxic metabolic encephalopathy believed to be secondary to possible withdrawal from alcohol or accidental overdosing by the applicant medication from to providers along with alcohol related dementia and vitamin deficiencies, UTI and acute kidney injury with rhabdomyolysis at time of presentation. Underlying problems were treated as kidney injury improved back to normal and he received antibiotic treatment for almost a week for UTI. The patient mentation improved significantly but not back to his baseline according to the family. He was evaluated by psychiatry team who adjusted the dose of olanzapine the but suggested no psychiatry rectus alter going on. Seen by physical therapy team who recommended short-term stay. Amlodipine was added for higher readings of blood pressure. Start amlodipine with other blood pressure medications and monitor response, report 1 week readings to PCP for further adjustments. Olanzapine does changed to 20 mg at bedtime. anticipated length of stay at SNF is less than 30 days. Time Spent with Patient Time attestation: Total time spent providing and/or coordinating discharge services: Discharge coordination time: Greater than 30 minutes Quality: Stroke Does the patient have a stroke diagnosis?: No Physical Exam Vital Signs: Vital Signs: Last Vital Signs Temp 97.2 F 07/03/21 11:35 Pulse 90 07/03/21 11:35 Resp 17 07/03/21 11:35 BP 142/67 H 07/03/21 11:35 Pulse Ox 97 07/03/21 11:35 BMI result Body Mass Index 27.8 Const: Other: Constitutional : alert, interactive, not in distress Neck : Normal inspection, Supple Cardiovascular : RRR, S1 S2, no lower extremity edema Respiratory : Fair bilateral air entry, no crackles, wheezes or rhonchi Gastrointestinal: soft, lax, Normal bowel sounds, Non tender or ascites Skin : Warm, Dry Neurological : alert, oriented to self and place, confused about time and person, No focal deficit DS: Data Data Completed and Pending Completed studies during hospitalization [Text1]: Procedures Detoxification Services for Substance Abuse Treatment (09/26/20) Discharge Plan Discharge Patient Disposition: [facility] Discharge Diagnosis: Metabolic encephalopathy Alcohol dependence with withdrawal Urinary tract infection Acute kidney injury Referrals: Physician,Unknown J [Physician] - 1 Week Discharge Medications: New amlodipine 5 mg Tablet 5 mg PO DAILY 30 Days Qty: 30 0RF Protocol: Hold for SBP< HOLD for SBP < : 90 olanzapine 10 mg Tablet,Disintegrating 20 mg translingual BEDTIME Qty: 60 0RF Continued furosemide [Lasix] 20 mg tablet 20 mg PO DAILY PRN (Reason: mild chf) 90 Days Qty: 90 1RF Incruse Ellipta 62.5 mcg/actuation blister with device 1 puff inhalation DAILY 0RF cyanocobalamin (vitamin B-12) 1,000 mcg capsule 1,000 mcg PO DAILY Qty: 20 0RF folic acid 1 mg tablet 1 mg PO DAILY Qty: 30 1RF thiamine HCl (vitamin B1) 100 mg tablet 100 mg PO DAILY Qty: 30 1RF lisinopril 40 mg tablet 40 mg PO DAILY Qty: 30 0RF naltrexone 50 mg tablet 1 tab PO DAILY 0RF spironolactone 25 mg tablet 2 tab PO DAILY 0RF sertraline 25 mg tablet 1 tab PO DAILY 0RF pantoprazole 20 mg tablet,delayed release (DR/EC) 20 mg PO DAILY 0RF metoprolol succinate 25 mg tablet extended release 24 hr 25 mg PO BEDTIME 0RF atorvastatin 40 mg tablet 40 mg PO BEDTIME 0RF gabapentin 600 mg tablet 600 mg PO BID 0RF tamsulosin 0.4 mg capsule 0.4 mg PO DAILY 0RF cholecalciferol (vitamin D3) 50 mcg (2,000 unit) capsule 50 mcg PO DAILY 0RF phenytoin 50 mg tablet,chewable 100 mg PO BID 0RF Discontinued olanzapine 5 mg tablet 5 mg PO DAILY@1200,1500 0RF olanzapine 5 mg tablet 2.5 mg PO DAILY 0RF Discharge Orders: Discharge Order (Routine); Ordered 07/04/21 Ordered By: Oscar Jones Diet: advance to usual diet Activity on Discharge: As tolerated Stand Alone Forms: Patient Portal Discharge page Care Plan Goals: Read below Health Concerns: Read below Plan of Treatment: Read below Assessment: You were admitted to the hospital for evaluation of altered mentation. Treated for acute kidney injury and urinary tract infection that both were treated and improved back to normal. You mentation improved but never back to baseline reported. Seen by physical therapy team who recommended short-term rehab placement. Olanzapine dose changed to once at bedtime by Psychiatry team Start amlodipine and monitor blood pressure, reported readings to your PCP.
[2021-07-03 13:02] LABS: COVID-19 Test Negative (Negative); IDNOW Serial# 55D5AD1C
--- NOTE | 2021-07-03 13:45 | MHC.CM.PN ---
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 [facility] WILL BE IN TO EVALUATE PATIENT TOMORROW , MEDICARE IMM UPDATED AND LEFT AT BEDSIDE DISCHARGE PLAN [facility] VS IF BED AVAILABILITY [facility] OR [facility] WILL NEED [facility] FOR TRANSPORT HCP UP[DATED TO [facility]
[2021-07-03] MEDS: Divalproex Sodium ER 250 MG TAB.ER.24H PO (13:54)
[2021-07-03 15:36] VITALS: BP 133/68; PULSE 76; RESP 15; TEMP 36.6; O2SAT 92
[2021-07-03 19:26] VITALS: BP 126/68; PULSE 78; RESP 15; TEMP 36.6; O2SAT 96
[2021-07-03] MEDS: Metoprolol Succinate ER 25 MG TAB.ER.24H PO (20:05)
[2021-07-03] MEDS: Atorvastatin Calcium 40 MG TABLET PO (20:05)
[2021-07-03] MEDS: OLANZapine ODT 10 MG TAB.RAPDIS 20 MG TRANSLINGU (20:05)
[2021-07-04 03:56] VITALS: BP 127/57; PULSE 69; RESP 16; TEMP 36.3; O2SAT 97
[2021-07-04 07:21] VITALS: BP 153/62; PULSE 63; RESP 18; TEMP 36.9; O2SAT 100
[2021-07-04] MEDS: Spironolactone 25 MG TABLET 50 MG PO (09:04)
[2021-07-04] MEDS: Tamsulosin HCL 0.4 MG CAPSULE 0.8 MG PO (09:05)
[2021-07-04] MEDS: amLODIPine Besylate 5 MG TABLET PO (09:05)
[2021-07-04] MEDS: Thiamine HCL 100 MG TABLET PO (09:06)
[2021-07-04] MEDS: Divalproex Sodium ER 250 MG TAB.ER.24H PO (09:06)
[2021-07-04] MEDS: Naltrexone HCl 50 MG TABLET PO (09:06)
[2021-07-04] MEDS: Heparin Sodium,Porcine 5,000 UNIT/ML VIAL 5000 UNIT SUBCUT (09:07)
[2021-07-04] MEDS: Folic Acid 1 MG TABLET PO (09:07)
[2021-07-04] MEDS: lisinopriL 40 MG TABLET PO (09:07)
[2021-07-04] MEDS: 0.9 % Sodium Chloride Flush 3 ML SYRINGE IVFLUSH (09:08)
[2021-07-04] MEDS: Nicotine 21 MG PATCH.TD24 TRANSDERMA (09:08)
[2021-07-04 11:46] VITALS: BP 134/64; PULSE 60; RESP 18; TEMP 36.1; O2SAT 96
--- NOTE | 2021-07-04 12:03 | P.PNIM_ITS ---
Subjective Subjective Date of Service: 07/04/21 Interval History: Seen and evaluated this morning Alert and interactive But baseline confused no reported hallucinations or agitation, try to leave the bed on occasions but never aggressive and can be redirected No reported overnight events Review of Systems No fever, chills or weakness No chest pain, palpitation No shortness of breath or coughing No abdominal pain, nausea or vomiting No urinary symptoms No any rash or wounds Physical Exam Vital Signs: Vital Signs: Last Vital Signs Temp 97 F 07/04/21 11:46 Pulse 60 07/04/21 11:46 Resp 18 07/04/21 11:46 BP 134/64 07/04/21 11:46 Pulse Ox 96 07/04/21 11:46 BMI result Body Mass Index 27.8 Const: Other: Constitutional : alert, interactive, not in distress Neck : Normal inspection, Supple Cardiovascular : RRR, S1 S2, no lower extremity edema Respiratory : Fair bilateral air entry, no crackles, wheezes or rhonchi Gastrointestinal: soft, lax, Normal bowel sounds, Non tender or ascites Skin : Warm, Dry Neurological : alert, oriented to self and place, confused about time and person, No focal deficit Objective Data Active Medications Acetaminophen (Acetaminophen 325 Mg Tablet) 650 mg PO Q6H PRN PRN Reason: Pain, Mild (Pain Scale 1-3) Last Admin: 06/27/21 01:08 Dose: 650 mg Documented by: EDE Amlodipine Besylate (Amlodipine Besylate 5 Mg Tablet) 5 mg PO DAILY [facility]; Protocol Last Admin: 07/04/21 09:05 Dose: 5 mg Documented by: NU Atorvastatin Calcium (Atorvastatin Calcium 40 Mg Tablet) 40 mg PO BEDTIME [facility] Last Admin: 07/03/21 20:05 Dose: 40 mg Documented by: SUSANA Divalproex Sodium (Divalproex Sodium Er 250 Mg Tab.Er.24h) 250 mg PO DAILY [facility] Last Admin: 07/04/21 09:06 Dose: 250 mg Documented by: NU Folic Acid (Folic Acid 1 Mg Tablet) 1 mg PO DAILY [facility] Last Admin: 07/04/21 09:07 Dose: 1 mg Documented by: NU Heparin Sodium (Porcine) (Heparin Sodium,Porcine 5,000 Unit/Ml Vial) 5,000 unit SUBCUT Q12H [facility] Last Admin: 07/04/21 09:07 Dose: 5,000 unit Documented by: NU Hydroxyzine HCl (Hydroxyzine Hcl 50 Mg Tablet) 50 mg PO Q8H PRN PRN Reason: anxiety/restlessness Lisinopril (Lisinopril 40 Mg Tablet) 40 mg PO DAILY [facility]; Protocol Last Admin: 07/04/21 09:07 Dose: 40 mg Documented by: NU Metoprolol Succinate (Metoprolol Succinate Er 25 Mg Tab.Er.24h) 25 mg PO BEDTIME [facility]; Protocol Last Admin: 07/03/21 20:05 Dose: 25 mg Documented by: SUSANA Naltrexone HCl (Naltrexone Hcl 50 Mg Tablet) 50 mg PO DAILY [facility] Last Admin: 07/04/21 09:06 Dose: 50 mg Documented by: NU Nicotine (Nicotine 21 Mg Patch.Td24) 21 mg TRANSDERMA DAILY [facility] Last Admin: 07/04/21 09:08 Dose: 21 mg Documented by: NU Olanzapine (Olanzapine Odt 10 Mg Tab.Rapdis) 20 mg TRANSLINGU BEDTIME [facility] Last Admin: 07/03/21 20:05 Dose: 20 mg Documented by: SUSANA Omeprazole (Omeprazole 40 Mg Capsule.Dr) 40 mg PO DAILY@0630 [facility] Last Admin: 07/04/21 05:17 Dose: Not Given Documented by: SUSANA Non-Admin Reason: Patient Refused Ondansetron HCl (Ondansetron Hcl 4 Mg/2 Ml Vial) 4 mg IVPUSH Q8H PRN PRN Reason: Nausea and Vomiting Pharmacy Consult (Consult Rx Perform Med Rec) 1 each MISCELLANE ONCE PRN PRN Reason: Consult order Sodium Chloride (0.9 % Sodium Chloride Flush 3 Ml Syringe) 3 ml IVFLUSH QSHIFT [facility] Last Admin: 07/04/21 09:08 Dose: 3 ml Documented by: NU Spironolactone (Spironolactone 25 Mg Tablet) 50 mg PO DAILY [facility]; Protocol Last Admin: 07/04/21 09:04 Dose: 50 mg Documented by: NU Tamsulosin HCl (Tamsulosin Hcl 0.4 Mg Capsule) 0.8 mg PO DAILY [facility] Last Admin: 07/04/21 09:05 Dose: 0.8 mg Documented by: NU Thiamine HCl (Thiamine Hcl 100 Mg Tablet) 100 mg PO DAILY [facility] Last Admin: 07/04/21 09:06 Dose: 100 mg Documented by: NU Labs CBC & Chem 7: 07/02/21 06:02 07/02/21 06:02 Labs: Laboratory Results - last 24 hr 07/03/21 12:30 COVID-19 (KATELYNN) Negative COVID-19 Clin Com See Note Assessment and Plan (1) Toxic metabolic encephalopathy: Status: Acute (2) Hallucination: Status: Acute Plan A 65 years old male with PMH of alcohol abuse, GERD, cardiomyopathy, seizure disorder who presents to the hospital via EMS after being found encephalopathic. Toxic metabolic encephalopathy alcohol dependence with withdrawal vs accidental overdosing (given duplicate meds by 2 different care givers) Improved significantly but still not at his baseline possible b1 defeciency continue thiamine p.o. no evidence of cirrhosis on labs or imaging following more directions, will need STR on discharge HCV treated, no cirrhosis UTI completed 6 days rocephin Acute kidney injury, resolved chronic chf with recovered EF metoprolol, restarted lisinopril, aldactone History of seizure disorder phenytoin Hypertension lisinopril, spironolactone, metoprolol Psychiatric disorder continue olanzapine DVT PPX Heparin dispo, pending placement Quality Stroke Does the patient have a stroke diagnosis?: No VTE Prior VTE?: No VTE Risk Level:: Medical - moderate - high VTE Device Contraindication: Treatment Not Indicated VTE Drug Contraindication: N/A - Med Ordered
[2021-07-04 13:14] VITALS: BP 134/64; PULSE 60; O2SAT 96
--- NOTE | 2021-07-04 14:20 | MHC.CM.PN ---
PATIENT TO TRANSFER TO [facility] HCP PRISCA [phone] AWARE AND IN AGREEMENT. RN AND UNIT AWARE OF PLAN. IMM 07/03 IN CHART
[2021-07-04 15:12] LABS: Influenza A PCR NEGATIVE (Negative); Influenza B PCR NEGATIVE (Negative); Resp Syncy Virus RNA Qual PCR NEGATIVE (Negative); SARS COV2 PCR INHOUSE NEGATIVE (Negative)
[2021-07-04 15:27] VITALS: BP 123/60; PULSE 80; RESP 18; TEMP 36.2; O2SAT 95
== END 2021-07-04 19:08 | disposition skilled nursing facility (03) | DRG 917 ==
LOC: HO.ED 13:39 → HO.EDOVER 14:23 → HO.S3 06-24 19:59
PROVIDERS: Internal Medicine; Nurse Practitioner Family; Admitting Provider Student in an Organized Health Care Education/Training Program; Emergency Provider Emergency Medicine; PCP Internal Medicine; Visit Provider Student in an Organized Health Care Education/Training Program
DX: T50.901A Poisoning by unspecified drugs, medicaments and biological substances, accidental (unintentional), initial encounter (principal); G92.8 Other toxic encephalopathy; N39.0 Urinary tract infection, site not specified; N17.9 Acute kidney failure, unspecified; M62.82 Rhabdomyolysis; I50.32 Chronic diastolic (congestive) heart failure; F10.239 Alcohol dependence with withdrawal, unspecified; E51.9 Thiamine deficiency, unspecified; I11.0 Hypertensive heart disease with heart failure; F03.90 Unspecified dementia, unspecified severity, without behavioral disturbance, psychotic disturbance, mood disturbance, and anxiety; E86.0 Dehydration; G40.909 Epilepsy, unspecified, not intractable, without status epilepticus; Z91.14 Patient's other noncompliance with medication regimen; Z86.19 Personal history of other infectious and parasitic diseases; Z20.822 Contact with and (suspected) exposure to COVID-19; Z79.899 Other long term (current) drug therapy
CPT/HCPCS: 0241U; 36415; 70450; 71045; 72125; 74176; 76705; 80048; 80053; 81001; 81003; 82140; 82550; 83605; 83690; 83735; 83880; 84300; 84484; 85025; 85027; 85610; 87040; 87086; 87088; 87147; 87186; 87205; 87635; 93005; 96361; 96365; 97116; 97162; 97163; 99285; J0696; J2560; J3411

== ENCOUNTER 2021-09-02 18:46 | Inpatient (IN) | payer MEDICARE, MEDICAID, SELFPAY ==
[2021-09-02] VITALS (13 sets, daily range): BP systolic 174–215; BP diastolic 53–103; PULSE 96–115; RESP 15–30; TEMP 38.3–39; O2SAT 96–98; BMI 29.9
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
--- NOTE | ~2021-09-02 | XR_ITS ---
EXAMINATION: XR CHEST CLINICAL INFORMATION: Altered mental status, fall COMPARISON: 06/23/2019 TECHNIQUE: Frontal view of the chest was obtained. FINDINGS: Cardiomediastinal silhouette is enlarged, stable. Atherosclerotic calcification in the aortic arch. No dense consolidation. No pneumothorax. Mild pulmonary vascular congestion. Density is again noted overlying the left axilla and left distal clavicle. XR/XR chest 1V IMPRESSION: Mild pulmonary vascular congestion. No consolidation.
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
--- NOTE | ~2021-09-02 | US_ITS ---
EXAMINATION: US VENOUS ULTRASOUND WITH DOPPLER LOWER EXTREMITY, LEFT CLINICAL INFORMATION: Left lower extremity edema COMPARISON: None TECHNIQUE: Ultrasound of the deep veins is performed from the hip to the calf with compression sonography and color and pulse Doppler assessment. Spectral analysis with color-flow imaging is performed. FINDINGS: There is thrombus present throughout the femoral vein as well as the popliteal vein with noncompressible thrombus. Some channel flow is seen. The common femoral vein and the great saphenous are unremarkable. Calf veins are not well seen There is no significant popliteal fossa cyst. US/US venous duplex LE LT IMPRESSION: Acute DVT left leg extending from the popliteal vein throughout the femoral vein. This critical result was discussed with BERNY Sanchez at 9:15 PM on the day the exam and it was ascertained that the content and urgency of the report was understood at the time of direct communication.
--- NOTE | ~2021-09-02 | CT_ITS ---
EXAMINATION: CT HEAD WITHOUT CONTRAST (STROKE PROTOCOL) CLINICAL INFORMATION: Stroke protocol. 65-year-old male with fall in acute mental status change COMPARISON: 06/23/2021 TECHNIQUE: Contiguous axial imaging was performed from the skull base to vertex without intravenous administration of contrast. This CT examination was performed using dose optimization techniques as appropriate, variously including the following: *Automated exposure control *Adjustment of mA and/or kV according to patient size (this includes techniques or standardized protocols for targeted exams where dose is matched to indication/reason for exam; i.e. extremities or head) *Use of iterative reconstruction technique DLP: 696 mGy-cm FINDINGS: Examination is technically limited due to motion There is no intracranial hemorrhage, hematoma, or extra-axial fluid collection. Ventricles and sulci are prominent most likely due to global volume loss. There are mild. Patchy periventricular white matter changes as a sequela of microangiopathy. There is no acute infarct or mass lesion. There is no fracture seen. Visualized paranasal sinuses revealed opacification of maxillary sinuses, left sphenoidal sinus, right frontal sinus and partially opacified ethmoids. Examination limited due to motion artifact. CT/CT head for stroke IMPRESSION: No acute abnormalities. Sequela of microangiopathy and atrophy. Polysinusitis. Communication: Findings reported to Dr. Shaylee Garrett at 7:40 PM on 09/02/2021
--- NOTE | 2021-09-02 19:12 | ECG_ITS ---
Test Reason : ?stroke Blood Pressure : / mmHG Vent. Rate : 116 BPM Atrial Rate : 116 BPM P-R Int : 148 ms QRS Dur : 092 ms QT Int : 354 ms P-R-T Axes : 055 060 078 degrees QTc Int : 492 ms Sinus tachycardia Moderate voltage criteria for LVH, may be normal variant ( Sokolow-Maciel , [place] product ) Borderline ECG When compared with ECG of 23-JUN-2021 10:36, Vent. rate has increased BY 58 BPM Referred By: Shaylee Marcelo Electronically Signed By:CLARENCE LARA
--- NOTE | 2021-09-02 19:20 | PC.NURSE ---
pt resistive for rectal temp and rectal tylenol suppository administration. Pt agitated and confused despite staff reassurance. notified who will order IV tylenol
--- NOTE | 2021-09-02 19:24 | ED_ITS ---
HPI - Weakness General Chief complaint: Weakness Stated complaint: WEAKNESS Time Seen by Provider: 09/02/21 19:12 Source: patient and EMS Mode of arrival: EMS Limitations: altered mental status History of Present Illness HPI Narrative: 65-year-old male presents via EMS for altered mental status. Onset (ago): unknown Location: generalized Severity: severe Related Data Home Medications Medication Instructions Recorded Confirmed atorvastatin 40 mg tablet 40 mg PO BEDTIME 04/01/20 09/02/21 cholecalciferol (vitamin D3) 50 50 mcg PO DAILY 04/01/20 09/02/21 mcg (2,000 unit) capsule gabapentin 600 mg tablet 600 mg PO BID 04/01/20 09/02/21 metoprolol succinate 25 mg 25 mg PO DAILY 04/01/20 09/02/21 tablet,extended release 24 hr phenytoin 50 mg chewable tablet 50 mg PO BID 04/01/20 09/02/21 tamsulosin 0.4 mg capsule 0.4 mg PO DAILY 04/01/20 09/02/21 umeclidinium 62.5 mcg/actuation 1 puff INHALATION DAILY 09/26/20 09/02/21 blister powder for inhalation (Incruse Ellipta) naltrexone 50 mg tablet 1 tab PO DAILY 06/23/21 09/02/21 sertraline 25 mg tablet 1 tab PO DAILY 06/23/21 09/02/21 spironolactone 25 mg tablet 2 tab PO DAILY 06/23/21 09/02/21 amlodipine 5 mg tablet 5 mg PO QPM 09/02/21 09/02/21 melatonin 5 mg tablet 1 tab PO BEDTIME 09/02/21 09/02/21 olanzapine 20 mg tablet 1 tab PO BEDTIME 09/02/21 09/02/21 Previous Rx's Medication Instructions Recorded cyanocobalamin (vitamin B-12) 1,000 mcg PO DAILY #20 cap 10/08/20 1,000 mcg capsule folic acid 1 mg tablet 1 mg PO DAILY #30 tab 10/10/20 thiamine HCl (vitamin B1) 100 mg 100 mg PO DAILY #30 tab 10/10/20 tablet lisinopril 40 mg tablet 40 mg PO DAILY #30 tab 01/07/21 pantoprazole 20 mg tablet,delayed 20 mg PO DAILY 30 Days #30 tab 07/25/21 release Allergies Allergy/AdvReac Type Severity Reaction Status Date / Time No Known Allergies Allergy Verified 03/25/21 14:56 [No Known Allergies*] Review of Systems Review of Systems: Yes Unobtainable due to mental status PMFSH Past Medical History Attestation statement: The following information was validated with the patient. Source: old records reviewed Medical History Alcohol abuse Cardiomyopathy Dementia GERD (gastroesophageal reflux disease) Hepatitis C antibody positive in blood Hypertension Seizure Surgical History No pertinent past surgical history Family History Family History Father No problems noted. Mother No problems noted. Brother Cancer Sister No problems noted. Social History Social History Household Members: Unknown / Unable to assess Housing: Unknown / Unable to assess Unable to assess alcohol history related to: Unknown Alcohol intake: current Alcohol intake frequency: a few times a week Alcohol type: hard liquor Patient Tobacco Use Status: Tobacco use Unknown Substance Use Type: Unknown Advance Directives: Yes Advance Directives on File: Yes Advance Directives Date on File: 10/11/20 service: No Current occupational status: unemployed and disabled Physical Exam Vital Signs: Vital Signs: Last Vital Signs Temp 101.1 F H 09/02/21 23:52 Pulse 120 H 09/03/21 00:45 Resp 46 H 09/03/21 00:45 BP 163/95 H 09/03/21 00:30 Pulse Ox 94 09/03/21 00:45 BMI result Body Mass Index 29.9 Appearance: Alert. Disoriented. Unable to follow directions. Eyes: Pupils equal, round and reactive to light. ENT: Pharynx normal. Neck: Normal inspection. Neck supple. CVS: Tachycardic heart rate and rhythm. Pulses normal. Respiratory: Tachypneic. Moderate respiratory distress. Expiratory wheezing throughout. Abdomen: Soft and nontender. No rigidity or distention noted. Obese. Skin: Skin warm and dry. Normal skin color. Normal skin turgor. Extremities: Left lower extremity edema with erythema to the dorsal aspect of the left foot. Moves all extremities spontaneously. Neuro: No motor deficit. No sensory deficit. Unable to complete cranial nerve assessment secondary to patient's mental status. Course Course Course Narrative: 65-year-old male presents via EMS with altered mental status, unable to follow directions, blood pressure 215/103, heart rate 109, respiration rate 24, temperature 102.2 degrees. Unable to complete NIH stroke scale secondary to patient's inability to understand and follow directions. Order for CT scan of head stroke protocol. Last known well time unknown. There is a report of fall with head trauma however patient is a poor historian and unable to answer questions appropriately. Rectal Tylenol attempted, patient combative during administration attempt. rectal temp is 103. Order for IV Tylenol. While patient does fit sepsis criteria with elevated temperature, heart rate, and respiration rate with altered mental status, I will not be resuscitating fluids until stroke workup is completed. Blood pressure is 215/103. INR 1.0, FSBS 109 19:38 discussion with [facility], indicates sinusitis, no acute findings of CVA or subdural hematoma. 21:07 discussion with [facility], patient positive for DVT to left lower extremity. Will cancel the CT scan angio head and neck and order PE study. Order for Lovenox 90 mg. I did discuss this plan with hospitalist. Plan to admit for cellulitis, DVT, and altered mental status. Consultations Consultation #1: Sixto Time: 21:00 MDM - Weakness MDM Narrative Medical decision making narrative: CVA, subdural hematoma Differential Diagnosis Differential diagnosis: Likely UTI, anemia, hypoglycemia, hypothyroidism, rhabdomyolysis, sepsis and dehydration Medical Records Attestation: I reviewed the patient's medical records. Lab Data Attestation: I reviewed the patient's lab results. Result diagrams: 09/02/21 19:59 09/02/21 19:59 Labs: Lab Results 09/02/21 09/02/21 09/02/21 Range/Units 19:22 19:32 19:58 WBC (4.8-10.8) X10*3/uL RBC (4.60-5.80) X10*6/uL Hgb (14.0-18.0) g/dl Hct (42.0-52.0) % MCV (80.0-98.0) fL MCH (27.0-33.0) pg MCHC (31.0-36.0) g/dl RDW (11.0-16.0) % Plt Count (160-400) X10*3/uL MPV (9.4-12.4) fL Immature Gran % (Auto) (0.0-0.4) % Neut % (Auto) (45-73) % Lymph % (Auto) (20-40) % Weber % (Auto) (2-11) % Eos % (Auto) (0-4) % Baso % (Auto) (0-2) % Lymph # (Auto) (1.2-4.9) X10*3/uL Weber # (Auto) (0.1-1.2) X10*3/uL Eos # (Auto) (0.0-0.4) X10*3/uL Baso # (Auto) (0.0-0.2) X10*3/uL Abs Immat Gran (auto) (0.00-0.03) X10*3/uL Absolute Neuts (auto) (2.0-8.3) x10*3/uL Absolute Nucleated RBC (0.0-0.012) X10*3/uL Nucleated RBC % (auto) (0.0-0.2) /100WBC PT (9.9-13.0) SEC Whole Blood PT 11.8 (11.1-13.5) sec INR (0.9-1.1) Whole Blood INR 1.0 (0.9-1.1) APTT (24.1-38.0) SEC Sodium (135-145) mmol/L Potassium (3.3-5.1) mmol/L Chloride (96-108) mmol/L Carbon Dioxide (22-29) mmol/L Anion Gap (12-20) BUN (9-16) mg/dL Creatinine (0.5-1.4) mg/dL Estim Creat Clear Calc Estimated GFR POC Glucose 109 (60-115) mg/dL Random Glucose (60-115) mg/dL Lactic Acid (0.5-2.0) mmol/L Calcium (8.4-10.2) mg/dL Troponin I High Sens 25.2 (<3.5-35.0) ng/L B-Natriuretic Peptide (<100) pg/mL Hold Red Top Urine Color Urine Appearance Urine pH (5.0-8.0) Ur Specific Butler (1.005-1.025) Urine Protein (NEG-TRACE) MG/DL Urine Glucose (UA) (NEG) MG/DL Urine Ketones (NEG) MG/DL Urine Blood (NEG) Urine Nitrite (NEG) Ur Leukocyte Esterase (NEG) Phenytoin (10.0-20.0) ug/mL COVID-19 (KATELYNN) (Negative) COVID-19 Clin Com Influenza Type A (TR) (Negative) Influenza Type B (TR) (Negative) Influenza A & B Note 09/02/21 09/02/21 09/02/21 Range/Units 19:59 19:59 19:59 WBC 7.1 (4.8-10.8) X10*3/uL RBC 3.98 L (4.60-5.80) X10*6/uL Hgb 11.7 L (14.0-18.0) g/dl Hct 36.4 L (42.0-52.0) % MCV 91.5 (80.0-98.0) fL MCH 29.4 (27.0-33.0) pg MCHC 32.1 (31.0-36.0) g/dl RDW 13.3 (11.0-16.0) % Plt Count 188 D (160-400) X10*3/uL MPV 9.1 L (9.4-12.4) fL Immature Gran % (Auto) 0.3 (0.0-0.4) % Neut % (Auto) 75.3 H (45-73) % Lymph % (Auto) 12.7 L (20-40) % Weber % (Auto) 8.9 (2-11) % Eos % (Auto) 2.4 (0-4) % Baso % (Auto) 0.4 (0-2) % Lymph # (Auto) 0.9 L (1.2-4.9) X10*3/uL Weber # (Auto) 0.6 (0.1-1.2) X10*3/uL Eos # (Auto) 0.2 (0.0-0.4) X10*3/uL Baso # (Auto) 0.0 (0.0-0.2) X10*3/uL Abs Immat Gran (auto) 0.02 (0.00-0.03) X10*3/uL Absolute Neuts (auto) 5.3 (2.0-8.3) x10*3/uL Absolute Nucleated RBC 0.000 (0.0-0.012) X10*3/uL Nucleated RBC % (auto) 0.0 (0.0-0.2) /100WBC PT 11.3 (9.9-13.0) SEC Whole Blood PT (11.1-13.5) sec INR 1.0 (0.9-1.1) Whole Blood INR (0.9-1.1) APTT 28.5 (24.1-38.0) SEC Sodium 139 (135-145) mmol/L Potassium 4.1 (3.3-5.1) mmol/L Chloride 106 (96-108) mmol/L Carbon Dioxide 27 (22-29) mmol/L Anion Gap 10 L (12-20) BUN 10 (9-16) mg/dL Creatinine 0.76 (0.5-1.4) mg/dL Estim Creat Clear Calc 107.1 Estimated GFR > 60 POC Glucose (60-115) mg/dL Random Glucose 106 (60-115) mg/dL Lactic Acid (0.5-2.0) mmol/L Calcium 9.2 (8.4-10.2) mg/dL Troponin I High Sens (<3.5-35.0) ng/L B-Natriuretic Peptide (<100) pg/mL Hold Red Top Urine Color Urine Appearance Urine pH (5.0-8.0) Ur Specific Butler (1.005-1.025) Urine Protein (NEG-TRACE) MG/DL Urine Glucose (UA) (NEG) MG/DL Urine Ketones (NEG) MG/DL Urine Blood (NEG) Urine Nitrite (NEG) Ur Leukocyte Esterase (NEG) Phenytoin 2.7 L* (10.0-20.0) ug/mL COVID-19 (KATELYNN) (Negative) COVID-19 Clin Com Influenza Type A (TR) (Negative) Influenza Type B (TR) (Negative) Influenza A & B Note 09/02/21 09/02/21 09/02/21 Range/Units 19:59 20:00 20:01 WBC (4.8-10.8) X10*3/uL RBC (4.60-5.80) X10*6/uL Hgb (14.0-18.0) g/dl Hct (42.0-52.0) % MCV (80.0-98.0) fL MCH (27.0-33.0) pg MCHC (31.0-36.0) g/dl RDW (11.0-16.0) % Plt Count (160-400) X10*3/uL MPV (9.4-12.4) fL Immature Gran % (Auto) (0.0-0.4) % Neut % (Auto) (45-73) % Lymph % (Auto) (20-40) % Weber % (Auto) (2-11) % Eos % (Auto) (0-4) % Baso % (Auto) (0-2) % Lymph # (Auto) (1.2-4.9) X10*3/uL Weber # (Auto) (0.1-1.2) X10*3/uL Eos # (Auto) (0.0-0.4) X10*3/uL Baso # (Auto) (0.0-0.2) X10*3/uL Abs Immat Gran (auto) (0.00-0.03) X10*3/uL Absolute Neuts (auto) (2.0-8.3) x10*3/uL Absolute Nucleated RBC (0.0-0.012) X10*3/uL Nucleated RBC % (auto) (0.0-0.2) /100WBC PT (9.9-13.0) SEC Whole Blood PT (11.1-13.5) sec INR (0.9-1.1) Whole Blood INR (0.9-1.1) APTT (24.1-38.0) SEC Sodium (135-145) mmol/L Potassium (3.3-5.1) mmol/L Chloride (96-108) mmol/L Carbon Dioxide (22-29) mmol/L Anion Gap (12-20) BUN (9-16) mg/dL Creatinine (0.5-1.4) mg/dL Estim Creat Clear Calc Estimated GFR POC Glucose (60-115) mg/dL Random Glucose (60-115) mg/dL Lactic Acid (0.5-2.0) mmol/L Calcium (8.4-10.2) mg/dL Troponin I High Sens (<3.5-35.0) ng/L B-Natriuretic Peptide 323 H (<100) pg/mL Hold Red Top See Note Urine Color Urine Appearance Urine pH (5.0-8.0) Ur Specific Butler (1.005-1.025) Urine Protein (NEG-TRACE) MG/DL Urine Glucose (UA) (NEG) MG/DL Urine Ketones (NEG) MG/DL Urine Blood (NEG) Urine Nitrite (NEG) Ur Leukocyte Esterase (NEG) Phenytoin (10.0-20.0) ug/mL COVID-19 (KATELYNN) (Negative) COVID-19 Clin Com Influenza Type A (TR) Negative (Negative) Influenza Type B (TR) Negative (Negative) Influenza A & B Note See Note 09/02/21 09/02/21 09/02/21 Range/Units 20:01 20:05 20:13 WBC (4.8-10.8) X10*3/uL RBC (4.60-5.80) X10*6/uL Hgb (14.0-18.0) g/dl Hct (42.0-52.0) % MCV (80.0-98.0) fL MCH (27.0-33.0) pg MCHC (31.0-36.0) g/dl RDW (11.0-16.0) % Plt Count (160-400) X10*3/uL MPV (9.4-12.4) fL Immature Gran % (Auto) (0.0-0.4) % Neut % (Auto) (45-73) % Lymph % (Auto) (20-40) % Weber % (Auto) (2-11) % Eos % (Auto) (0-4) % Baso % (Auto) (0-2) % Lymph # (Auto) (1.2-4.9) X10*3/uL Weber # (Auto) (0.1-1.2) X10*3/uL Eos # (Auto) (0.0-0.4) X10*3/uL Baso # (Auto) (0.0-0.2) X10*3/uL Abs Immat Gran (auto) (0.00-0.03) X10*3/uL Absolute Neuts (auto) (2.0-8.3) x10*3/uL Absolute Nucleated RBC (0.0-0.012) X10*3/uL Nucleated RBC % (auto) (0.0-0.2) /100WBC PT (9.9-13.0) SEC Whole Blood PT (11.1-13.5) sec INR (0.9-1.1) Whole Blood INR (0.9-1.1) APTT (24.1-38.0) SEC Sodium (135-145) mmol/L Potassium (3.3-5.1) mmol/L Chloride (96-108) mmol/L Carbon Dioxide (22-29) mmol/L Anion Gap (12-20) BUN (9-16) mg/dL Creatinine (0.5-1.4) mg/dL Estim Creat Clear Calc Estimated GFR POC Glucose (60-115) mg/dL Random Glucose (60-115) mg/dL Lactic Acid 1.6 (0.5-2.0) mmol/L Calcium (8.4-10.2) mg/dL Troponin I High Sens (<3.5-35.0) ng/L B-Natriuretic Peptide (<100) pg/mL Hold Red Top Urine Color YELLOW Urine Appearance CLEAR Urine pH 6.0 (5.0-8.0) Ur Specific Butler 1.020 (1.005-1.025) Urine Protein NEG (NEG-TRACE) MG/DL Urine Glucose (UA) NEG (NEG) MG/DL Urine Ketones NEG (NEG) MG/DL Urine Blood NEG (NEG) Urine Nitrite NEG (NEG) Ur Leukocyte Esterase NEG (NEG) Phenytoin (10.0-20.0) ug/mL COVID-19 (KATELYNN) Negative (Negative) COVID-19 Clin Com See Note Influenza Type A (TR) (Negative) Influenza Type B (TR) (Negative) Influenza A & B Note Imaging Data CT head: Attestation: I personally reviewed and interpreted this imaging study as follows: Radiologist's impression: EXAMINATION: CT HEAD WITHOUT CONTRAST (STROKE PROTOCOL) CLINICAL INFORMATION: Stroke protocol. 65-year-old male with fall in acute mental status change? COMPARISON: 06/23/2021 TECHNIQUE: Contiguous axial imaging was performed from the skull base to vertex without intravenous administration of contrast. This CT examination was performed using dose optimization techniques as appropriate, variously including the following: *Automated exposure control *Adjustment of mA and/or kV according to patient size (this includes techniques or standardized protocols for targeted exams where dose is matched to indication/reason for exam; i.e. extremities or head) *Use of iterative reconstruction technique DLP: 696 mGy-cm FINDINGS: Examination is technically limited due to motion There is no intracranial hemorrhage, hematoma, or extra-axial fluid collection.? Ventricles and sulci are prominent most likely due to global volume loss. There are mild. Patchy periventricular white matter changes as a sequela of microangiopathy. There is no acute infarct or mass lesion. There is no fracture seen. Visualized paranasal sinuses revealed opacification of maxillary sinuses, left sphenoidal sinus, right frontal sinus and partially opacified ethmoids. Examination limited due to motion artifact. CT/CT head for stroke IMPRESSION: No acute abnormalities. Sequela of microangiopathy and atrophy. Polysinusitis. Communication: Findings reported to Dr. Shaylee Garrett at 7:40 PM on 09/02/2021 ECG Data Attestation: I personally reviewed and interpreted this ECG as follows: ECG interpretation date: 09/02/21 ECG interpretation time: 19:25 Prior ECG tracings: available for review Interpretation: Vent. rate 116 BPM [place] interval 148 ms QRS duration 92 ms QT/QTc 354/492 ms P-R-T axes 55 60 78 Sinus tachycardia Moderate voltage criteria for LVH, may be normal variant ( Sokolow-Maciel , [place] product ) Borderline ECG When compared with ECG of 23-JUN-2021 10:36, Vent. rate has increased BY 58 BPM Critical Care Time Critical Care Time Critical Care Time: Yes Total Critical Care Time: 45 Attestation: I have personally provided critical care time exclusive of time spent on separately billable procedures. Time includes review of laboratory data, radiology results, discussion with consultants, and monitoring for potential decompensation. Interventions were performed as documented. Discharge Plan Discharge Clinical Impression: Altered mental status, DVT of deep femoral vein, Cellulitis Patient Disposition: Admitted As Inpatient
[2021-09-02 19:42] LABS: Glucose, Whole Blood 109 mg/dL (60-115)
[2021-09-02 19:46] LABS: Prothrombin Time Whole Bld POC 11.8 sec (11.1-13.5)
[2021-09-02] MEDS: Labetalol HCL 100 MG/20 ML VIAL 10 MG IVPUSH (20:00)
[2021-09-02 20:06] LABS: MANUAL DIFF FLAG NO
[2021-09-02 20:07] LABS: Basophils Percent Auto 0.4 % (0-2); Eosinophils Absolute Auto 0.2 X10*3/uL (0.0-0.4); Eosinophils Percent Auto 2.4 % (0-4); Hematocrit 36.4 % (42.0-52.0); Hemoglobin 11.7 g/dl (14.0-18.0); Imm Gran Abs Auto 0.02 X10*3/uL (0.00-0.03); Imm Gran Pct Auto 0.3 % (0.0-0.4); Lymphocytes Absolute Auto 0.9 X10*3/uL (1.2-4.9); Lymphocytes Percent Auto 12.7 % (20-40); Mean Corpuscular HGB Conc 32.1 g/dl (31.0-36.0); Mean Corpuscular Hemoglobin 29.4 pg (27.0-33.0); Mean Corpuscular Volume 91.5 fL (80.0-98.0); Mean Platelet Volume 9.1 fL (9.4-12.4); Monocytes Absolute Auto 0.6 X10*3/uL (0.1-1.2); Monocytes Percent Auto 8.9 % (2-11); Neutrophils Absolute Auto 5.3 x10*3/uL (2.0-8.3); Neutrophils Percent Auto 75.3 % (45-73); Platelet Count 188 X10*3/uL (160-400); Red Blood Count 3.98 X10*6/uL (4.60-5.80); Red Cell Distribution Width 13.3 % (11.0-16.0); White Blood Count 7.1 X10*3/uL (4.8-10.8)
[2021-09-02 20:16] LABS: Prothrombin Time 11.3 SEC (9.9-13.0)
[2021-09-02 20:18] LABS: Partial Thromboplastin Time 28.5 SEC (24.1-38.0)
[2021-09-02 20:20] LABS: Anion Gap 10 (12-20); Blood Urea Nitrogen 10 mg/dL (9-16); Calcium 9.2 mg/dL (8.4-10.2); Carbon Dioxide 27 mmol/L (22-29); Chloride 106 mmol/L (96-108); Creatinine Clr Calc Pharmacy 107.1; Estimated Glomerular Filt Rate > 60; Glucose Random 106 mg/dL (60-115); Potassium 4.1 mmol/L (3.3-5.1); Sodium 139 mmol/L (135-145)
[2021-09-02 20:21] LABS: Lactic Acid 1.6 mmol/L (0.5-2.0)
[2021-09-02 20:21] LABS: Appearance Urine CLEAR; Color Urine YELLOW; Glucose Urine UA NEG (NEG); Leukocyte Esterase Urine NEG (NEG); Nitrite Urine NEG (NEG); Urine Blood NEG (NEG); Urine Ketones NEG (NEG); Urine Protein NEG (NEG-TRACE)
[2021-09-02] MEDS: cefTRIAXone sodium 1 GM in 0.9 % Sodium Chloride 50 ML IV (20:22)
[2021-09-02 20:26] LABS: B Type Natriuretic Peptide 323 pg/mL (<100)
[2021-09-02 20:27] LABS: Troponin-I High Sensitivity 25.2 ng/L (<3.5-35.0)
[2021-09-02 20:27] LABS: COVID-19 Test Negative (Negative); IDNOW Serial# 16C4AD1C; IDNOW Serial# 55D5AD1C; Influenza A Negative (Negative); Influenza B2 Negative (Negative)
--- NOTE | 2021-09-02 21:05 | PHA.MEDREC ---
Pharmacy Consult ? Medication Reconciliation Pharmacy has completed the medication reconciliation. Altered mental status, med rec obtained by pharmacy claim history
[2021-09-02 21:28] LABS: Stroke Lab Use COMPLETE
[2021-09-02] MEDS: iohexoL 350 MG/ML 100 ML INFUS..BTL IV (21:48)
--- NOTE | 2021-09-02 22:03 | P.HPHOSP_ITS ---
History of Present Illness Date of Service: 09/02/21 Chief Complaint: confusion 65-year-old male with a past medical history of hypertension, hyperlipidemia, cardiomyopathy, history of seizures; lives alone at home presented to the hospital with a chief complaint of altered mental status. Spoke to the patient's healthcare proxy Ashwin who mentioned that when he saw him for in the morning patient was doing fine; later on went away in [place] when patient was noted to be confused and was shaking; subsequently Ashwin went to check on him he was not himself; onset AFib questions and was able to walk with the help of a walker; complaint of chest discomfort and cough; subsequently EMS was called in who noted the patient was febrile; after that he was brought into the hospital for further evaluation. At the time of my interview patient is an alert and awake but mildly drowsy; confused; oriented to self; reports pain in his left leg. Denies any cough or sputum production. Denies any nausea vomiting or diarrhea. Denies any abdominal discomfort. Review of all other systems is negative except mentioned above ER course: Per ER team patient on presentation noted to be confused/altered; not giving mu ch history initially; complaining of the pain in the left leg; venous duplex was done which showed DVT. CT of the chest was done which showed no evidence of pneumonia or pulmonary embolism. ER team also mentioned that an initially concern for cellulitis of the dorsum of the left foot. Patient was febrile to 102 F. Empirically covered with antibiotics. CT head was done which showed no acute intracranial process. [facility] Medical History Alcohol abuse Cardiomyopathy Dementia GERD (gastroesophageal reflux disease) Hepatitis C antibody positive in blood Hypertension Seizure Family History Father No problems noted. Mother No problems noted. Brother Cancer Sister No problems noted. Surgical History No pertinent past surgical history Social History Household Members: Unknown / Unable to assess Housing: Unknown / Unable to assess Unable to assess alcohol history related to: Unknown Alcohol intake: current Alcohol intake frequency: a few times a week Alcohol type: hard liquor Patient Tobacco Use Status: Tobacco use Unknown Substance Use Type: Unknown Advance Directives: Yes Advance Directives on File: Yes Advance Directives Date on File: 10/11/20 service: No Current occupational status: unemployed and disabled Meds Allergies Allergy/AdvReac Type Severity Reaction Status Date / Time No Known Allergies Allergy Verified 03/25/21 14:56 [No Known Allergies*] Active Medications: Current Medications Acetaminophen (Acetaminophen 325 Mg Tablet) 650 mg PO Q6H PRN PRN Reason: Pain, Mild (Pain Scale 1-3) Enoxaparin Sodium (Enoxaparin Sodium 100 Mg/Ml Syringe) 90 mg 1 mg/kg (90 mg) SUBCUT Q12H MILAGROS Dextrose/Sodium Chloride (D5ns) 1,000 mls @ 75 mls/hr IVCONT .[id number] MILAGROS Vancomycin HCl 1,000 mg/ (Sodium Chloride) 270 mls @ 270 mls/hr IV Q12H MILAGROS Piperacillin Sod/Tazobactam (Sod 3.375 gm/ Sodium Chloride) 50 mls @ 100 mls/hr IV Q6H MILAGROS Melatonin (Melatonin 3 Mg Tablet) 6 mg PO BEDTIME PRN PRN Reason: Insomnia Pharmacy Consult (Consult Rx Vancomycin Dosing) 1 each MISCELLANE DAILY PRN PRN Reason: Consult order Senna (Sennosides 8.6 Mg Tablet) 17.2 mg PO BEDTIME PRN PRN Reason: Constipation Sodium Chloride (0.9 % Sodium Chloride Flush 3 Ml Syringe) 3 ml IVFLUSH QSHIFT [facility] Home Medications Medication Instructions Recorded Confirmed Last Taken Type atorvastatin 40 mg tablet 40 mg PO BEDTIME 04/01/20 09/02/21 Unknown History cholecalciferol (vitamin D3) 50 50 mcg PO DAILY 04/01/20 09/02/21 Unknown History mcg (2,000 unit) capsule gabapentin 600 mg tablet 600 mg PO BID 04/01/20 09/02/21 Unknown History metoprolol succinate 25 mg 25 mg PO DAILY 04/01/20 09/02/21 Unknown History tablet,extended release 24 hr phenytoin 50 mg chewable tablet 50 mg PO BID 04/01/20 09/02/21 Unknown History tamsulosin 0.4 mg capsule 0.4 mg PO DAILY 04/01/20 09/02/21 Unknown History umeclidinium 62.5 mcg/actuation 1 puff INHALATION DAILY 09/26/20 09/02/21 Unknown History blister powder for inhalation (Incruse Ellipta) naltrexone 50 mg tablet 1 tab PO DAILY 06/23/21 09/02/21 Unknown History sertraline 25 mg tablet 1 tab PO DAILY 06/23/21 09/02/21 Unknown History spironolactone 25 mg tablet 2 tab PO DAILY 06/23/21 09/02/21 Unknown History amlodipine 5 mg tablet 5 mg PO QPM 09/02/21 09/02/21 Unknown History melatonin 5 mg tablet 1 tab PO BEDTIME 09/02/21 09/02/21 Unknown History olanzapine 20 mg tablet 1 tab PO BEDTIME 09/02/21 09/02/21 Unknown History Physical Exam Vital Signs and Narrative: Vital Signs: Last Vital Signs Temp 100.9 F H 09/02/21 20:17 Pulse 107 H 09/02/21 21:00 Resp 24 H 09/02/21 21:00 BP 191/79 H 09/02/21 21:00 Pulse Ox 96 09/02/21 21:00 BMI result Body Mass Index 29.9 Gen: Appears be in no acute distress HEENT: NCAT, Moist mucosa. Neck is supple Pulmonary: Coarse breath sounds. CVS: Normal S1-S2 Abdomen: BS+, Soft, Nontender Extremities: Warm well perfused; dorsum of the left foot is swollen and slightly discolored compared to the right leg.Left foot has callus. Neuro: Alert and awake. Grossly nonfocal. No meningeal signs. Results Labs CBC and Chem 7: 09/02/21 19:59 09/02/21 19:59 Labs: Laboratory Results - last 24 hr 09/02/21 09/02/21 09/02/21 19:22 19:32 19:58 MCV MCH MCHC RDW Plt Count MPV Immature Gran % (Auto) Neut % (Auto) Lymph % (Auto) [place] % (Auto) Eos % (Auto) Baso % (Auto) Lymph # (Auto) [place] # (Auto) Eos # (Auto) Baso # (Auto) Abs Immat Gran (auto) Absolute Neuts (auto) Absolute Nucleated RBC Nucleated RBC % (auto) PT Whole Blood PT 11.8 INR Whole Blood INR 1.0 APTT Anion Gap Estim Creat Clear Calc Estimated GFR POC Glucose 109 Random Glucose Lactic Acid Calcium Troponin I High Sens 25.2 B-Natriuretic Peptide Hold Red Top Urine Color Urine Appearance Urine pH Ur Specific [place] Urine Protein Urine Glucose (UA) Urine Ketones Urine Blood Urine Nitrite Ur Leukocyte Esterase COVID-19 (KATELYNN) COVID-19 Clin Com Influenza Type A (TR) Influenza Type B (TR) Influenza A & B Note 09/02/21 09/02/21 09/02/21 19:59 19:59 19:59 MCV 91.5 MCH 29.4 MCHC 32.1 RDW 13.3 Plt Count 188 D MPV 9.1 L Immature Gran % (Auto) 0.3 Neut % (Auto) 75.3 H Lymph % (Auto) 12.7 L [place] % (Auto) 8.9 Eos % (Auto) 2.4 Baso % (Auto) 0.4 Lymph # (Auto) 0.9 L [place] # (Auto) 0.6 Eos # (Auto) 0.2 Baso # (Auto) 0.0 Abs Immat Gran (auto) 0.02 Absolute Neuts (auto) 5.3 Absolute Nucleated RBC 0.000 Nucleated RBC % (auto) 0.0 PT 11.3 Whole Blood PT INR 1.0 Whole Blood INR APTT 28.5 Anion Gap 10 L Estim Creat Clear Calc 107.1 Estimated GFR > 60 POC Glucose Random Glucose 106 Lactic Acid Calcium 9.2 Troponin I High Sens B-Natriuretic Peptide Hold Red Top Urine Color Urine Appearance Urine pH Ur Specific [place] Urine Protein Urine Glucose (UA) Urine Ketones Urine Blood Urine Nitrite Ur Leukocyte Esterase COVID-19 (KATELYNN) COVID-19 Clin Com Influenza Type A (TR) Influenza Type B (TR) Influenza A & B Note 09/02/21 09/02/21 09/02/21 19:59 20:00 20:01 MCV MCH MCHC RDW Plt Count MPV Immature Gran % (Auto) Neut % (Auto) Lymph % (Auto) [place] % (Auto) Eos % (Auto) Baso % (Auto) Lymph # (Auto) [place] # (Auto) Eos # (Auto) Baso # (Auto) Abs Immat Gran (auto) Absolute Neuts (auto) Absolute Nucleated RBC Nucleated RBC % (auto) PT Whole Blood PT INR Whole Blood INR APTT Anion Gap Estim Creat Clear Calc Estimated GFR POC Glucose Random Glucose Lactic Acid Calcium Troponin I High Sens B-Natriuretic Peptide 323 H Hold Red Top See Note Urine Color Urine Appearance Urine pH Ur Specific [place] Urine Protein Urine Glucose (UA) Urine Ketones Urine Blood Urine Nitrite Ur Leukocyte Esterase COVID-19 (KATELYNN) COVID-19 Clin Com Influenza Type A (TR) Negative Influenza Type B (TR) Negative Influenza A & B Note See Note 09/02/21 09/02/21 09/02/21 20:01 20:05 20:13 MCV MCH MCHC RDW Plt Count MPV Immature Gran % (Auto) Neut % (Auto) Lymph % (Auto) [place] % (Auto) Eos % (Auto) Baso % (Auto) Lymph # (Auto) [place] # (Auto) Eos # (Auto) Baso # (Auto) Abs Immat Gran (auto) Absolute Neuts (auto) Absolute Nucleated RBC Nucleated RBC % (auto) PT Whole Blood PT INR Whole Blood INR APTT Anion Gap Estim Creat Clear Calc Estimated GFR POC Glucose Random Glucose Lactic Acid 1.6 Calcium Troponin I High Sens B-Natriuretic Peptide Hold Red Top Urine Color YELLOW Urine Appearance CLEAR Urine pH 6.0 Ur Specific [place] 1.020 Urine Protein NEG Urine Glucose (UA) NEG Urine Ketones NEG Urine Blood NEG Urine Nitrite NEG Ur Leukocyte Esterase NEG COVID-19 (KATELYNN) Negative COVID-19 Clin Com See Note Influenza Type A (TR) Influenza Type B (TR) Influenza A & B Note Imaging Radiologist's Impressions: Impressions Head CT 09/02/21 19:24 IMPRESSION: No acute abnormalities. Sequela of microangiopathy and atrophy. Polysinusitis. Communication: Findings reported to Dr. Shaylee Garrett at 7:40 PM on 09/02/2021 Venous Duplex 09/02/21 20:51 IMPRESSION: Acute DVT left leg extending from the popliteal vein throughout the femoral vein. This critical result was discussed with BERNY Sanchez at 9:15 PM on the day the exam and it was ascertained that the content and urgency of the report was understood at the time of direct communication. Chest X-Ray 09/02/21 21:14 IMPRESSION: Mild pulmonary vascular congestion. No consolidation. Assessment and Plan (1) DVT (deep venous thrombosis): Status: Acute (2) Confusion: Status: Acute (3) Hypertensive urgency: Status: Acute Plan 65-year-old male with a past medical history of hypertension, hyperlipidemia, cardiomyopathy, history of seizures; lives alone at home presented to the hospital with a chief complaint of altered mental status. Altered mental status: Likely in the setting of toxic metabolic encephalopathy. Urinalysis negative. CT chest showed no evidence of pneumonia. Unclear if the patient had an episode of seizure at home Question left foot dorsum cellulitis. Supportive care LLE DVT: Venous duplex showed Acute DVT left leg extending from the popliteal vein throughout the femoral vein. Continue Lovenox 1 mg/kg b.i.d. CTA negative for PE Fever:? Left foot cellulitis. Continue IV vancomycin and Zosyn. Id consult Hypertensive urgency: Continue home amlodipine, lisinopril, metoprolol -> patient's healthcare proxy reported that patient has been complaint with his home medications. Labetalol p.r.n. for blood pressure greater than 170 systolic Patient blood pressure on presentation was 215 systolic. Received IV labetalol. History of dysphagia: Patient reports he is on soft diet. Speech and swallow eval. Aspiration precautions. History of cardiomyopathy: Patient on Aldactone at home. Will hold for now. History of seizures: continue home gabapentin, phenytoin History of dementia: Continue home sertraline/olanzapine History of BPH: Continue home Flomax DVT prophylaxis: Patient on Lovenox Code status: Full code, Confirmed with Pts' HCP- Ashwin- - [id number] Quality Stroke Does the patient have a stroke diagnosis?: No VTE Prior VTE?: No VTE Risk Level:: Medical - moderate - high VTE Device Contraindication: Treatment Not Indicated VTE Drug Contraindication: N/A - Med Ordered
[2021-09-02] MEDS: Piperacillin Sodium/Tazobactam 3.375 GM in 0.9 % Sodium Chloride 50 ML IV (22:19)
--- NOTE | 2021-09-02 22:31 | PHA.PROG ---
Admission Date/Time: Indication: OTHER Weight in k.1 kg Adjusted body weight in K.26 [place] body weight in K Obesity Dosing Indication % IBW: 130 Serum Creatinine - Last 168 Hours 09/02/21 19:59 Creatinine 0.76 Estimated CrCl and GFR - Last 168 Hours 09/02/21 19:59 Estim Creat Clear Calc 107.1 Estimated GFR > 60 Vancomycin Loading Dose: 1750 Current Vancomycin Dosing Regimen: 1750 q 24 Vancomycin Monitoring using AUC goal of 400 - 600 range with trough as surrogate marker: 436 Date and Time for next Vancomycin Level to be drawn: 09/04 @ 2100 Pharmacist Comments on Vancomycin Plan: Vancomycin dosing will take advantage of [employer] as a clinical decision support tool that uses Bayesian modeling to calculate individual patient's pharmacokinetic parameters and forecast the patient's drug concentration time course with the target goal AUC 24 range of 400 - 600 mg/L/hr.
[2021-09-02] MEDS: Albuterol/Iprat 2.5/0.5MG 3 ML AMPUL.NEB INHALE (22:40)
[2021-09-02] MEDS: Dextrose 5 % and 0.9 % NaCl 1,000 ML 75 ML IVCONT (22:55)
--- NOTE | 2021-09-02 23:23 | PC.NURSE ---
pt incontinent of urine, attemtping to get OOB, assisted to bedside commode max assist of 2. pt voided while on commode. 2+ assist to get back into bed. no desat after being transferred
[2021-09-02] MEDS: vancomycin HCL 1,000 MG, vancomycin HCL 750 MG in 0.9 % Sodium Chloride 500 ML 267.5 MG IV (23:29)
[2021-09-02] MEDS: amLODIPine Besylate 5 MG TABLET PO (23:41)
[2021-09-02] MEDS: Enoxaparin Sodium 100 MG/ML SYRINGE 90 MG SUBCUT (23:43)
--- NOTE | 2021-09-02 23:54 | PC.NURSE ---
oral temp 101.1, notified, too early to give PRN tylenol, told this RN use ice packs and give tylenol 6 hrs after IV tylenol was administered
[2021-09-03] VITALS (25 sets, daily range): BP systolic 114–192; BP diastolic 60–95; PULSE 81–762; RESP 16–46; TEMP 36.9–39.9; O2SAT 94–100
[2021-09-03] MEDS: LORazepam 1 MG TABLET PO (00:05)
[2021-09-03 00:08] LABS: Phenytoin Dilantin 2.7 ug/mL (10.0-20.0)
--- NOTE | 2021-09-03 00:10 | PC.NURSE ---
pt restless, hallucinating, trying to clim oob despite reassurance from maltese interpretter, pt trying to climb oob to get to the birds noncompliant with keeping arm straight for ivf.
[2021-09-03] MEDS: Acetaminophen 325 MG TABLET 650 MG PO ×3 (01:09→17:19)
--- NOTE | 2021-09-03 01:35 | PC.NURSE ---
MD mckeon of pt temp of 103.1, asked for permission to give PRN tylenol. course crackles noted at lung bases, exp wheezing, and tachypnea. order for 40mg lasix, 60mg solumedrol, and 1mg morphine IVP
[2021-09-03] MEDS: methylPREDNISolone Sod Succ 125 MG/2 ML VIAL 60 MG IVPUSH ×4 (01:41→23:55)
[2021-09-03] MEDS: Morphine Sulfate 2 MG/ML CARTRIDGE 1 MG IVPUSH ×2 (01:41→17:17)
[2021-09-03] MEDS: Furosemide 40 MG/4 ML VIAL IVPUSH (01:41)
--- NOTE | 2021-09-03 02:14 | PC.NURSE ---
pt grossly incontinent of urine, given incontinent care by this RN and 2 ED techs. complete bed change performed. vizcaino cath inserted by this RN. PT is , although upon arriving to ED, head of penis was not completely in foreskin, foreskin attempted to be pulled over head of penis but retracted back around penis. no s/sx of tissue hypoxia, and penis head remains in the same condition as from when he arrived from EMS.
[2021-09-03] MEDS: Piperacillin Sodium/Tazobactam 3.375 GM in 0.9 % Sodium Chloride 50 ML IV ×2 (04:34→09:56)
--- NOTE | 2021-09-03 05:28 | PC.NURSE ---
pt resting comfortably in bed
--- NOTE | 2021-09-03 05:35 | PC.NURSE ---
lack of troponin reflex brought to MD Henson attention, verbal order to add troponin to AM labs.
[2021-09-03 06:22] LABS: MANUAL DIFF FLAG NO
[2021-09-03 06:34] LABS: Basophils Percent Auto 0.5 % (0-2); Eosinophils Percent Auto 0.2 % (0-4); Hematocrit 37.5 % (42.0-52.0); Hemoglobin 12.2 g/dl (14.0-18.0); Imm Gran Abs Auto 0.04 X10*3/uL (0.00-0.03); Imm Gran Pct Auto 0.7 % (0.0-0.4); Lymphocytes Absolute Auto 0.5 X10*3/uL (1.2-4.9); Lymphocytes Percent Auto 8.5 % (20-40); Mean Corpuscular HGB Conc 32.5 g/dl (31.0-36.0); Mean Corpuscular Hemoglobin 30.1 pg (27.0-33.0); Mean Corpuscular Volume 92.6 fL (80.0-98.0); Mean Platelet Volume 9.4 fL (9.4-12.4); Monocytes Absolute Auto 0.3 X10*3/uL (0.1-1.2); Monocytes Percent Auto 4.2 % (2-11); Neutrophils Absolute Auto 5.2 x10*3/uL (2.0-8.3); Neutrophils Percent Auto 85.9 % (45-73); Platelet Count 182 X10*3/uL (160-400); Red Blood Count 4.05 X10*6/uL (4.60-5.80); Red Cell Distribution Width 13.4 % (11.0-16.0)
[2021-09-03 06:47] LABS: Anion Gap 12 (12-20); Blood Urea Nitrogen 10 mg/dL (9-16); Carbon Dioxide 27 mmol/L (22-29); Chloride 103 mmol/L (96-108); Creatinine Clr Calc Pharmacy 98.1; Estimated Glomerular Filt Rate > 60; Glucose Random 140 mg/dL (60-115); Potassium 3.9 mmol/L (3.3-5.1); Sodium 138 mmol/L (135-145)
[2021-09-03 06:52] LABS: Troponin-I High Sensitivity 51.7 ng/L (<3.5-35.0)
[2021-09-03 08:13] LABS: Glucose, Whole Blood 142 mg/dL (60-115)
[2021-09-03] MEDS: Sertraline HCL 25 MG TABLET PO (08:36)
[2021-09-03] MEDS: Cyanocobalamin (Vitamin B-12) 1,000 MCG TABLET 1000 MCG PO (08:36)
[2021-09-03] MEDS: Thiamine HCL 100 MG TABLET PO (08:36)
[2021-09-03] MEDS: Tamsulosin HCL 0.4 MG CAPSULE PO (08:36)
[2021-09-03] MEDS: Cholecalciferol (Vitamin D3) 25 MCG TABLET 50 MCG PO (08:36)
[2021-09-03] MEDS: Omeprazole 20 MG CAPSULE.DR PO (08:36)
[2021-09-03] MEDS: Metoprolol Succinate ER 25 MG TAB.ER.24H PO (08:36)
[2021-09-03] MEDS: Folic Acid 1 MG TABLET PO (08:36)
[2021-09-03] MEDS: Spironolactone 25 MG TABLET 50 MG PO (08:36)
[2021-09-03] MEDS: Gabapentin 600 MG TABLET PO ×2 (08:37→20:26)
[2021-09-03] MEDS: 0.9 % Sodium Chloride Flush 3 ML SYRINGE IVFLUSH ×2 (08:37→20:26)
[2021-09-03] MEDS: lisinopriL 40 MG TABLET PO (08:37)
[2021-09-03] MEDS: Phenytoin Chewable 50 MG TAB.CHEW PO ×2 (09:52→20:26)
[2021-09-03] MEDS: Naltrexone HCl 50 MG TABLET PO (09:52)
--- NOTE | 2021-09-03 10:01 | PC.NURSE ---
Pt boosted and repositioned in the bed with ax2. Medicated per JUL. vizcaino drained per tech. pt is afebrile. IV wrapped. Fluids and abx infusing.
--- NOTE | 2021-09-03 10:28 | P.PNIM_ITS ---
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 his name and location; does not know year or his reports he lives alone he denies any pain does not know why hes here Review of Systems negative except HPI Physical Exam Vital Signs: Vital Signs: Last Vital Signs Temp 98.5 F 09/03/21 08:43 Pulse 81 09/03/21 09:58 Resp 21 H 09/03/21 09:58 BP 148/67 H 09/03/21 09:58 Pulse Ox 98 09/03/21 09:58 BMI result Body Mass Index 29.9 General - no acute distress, appears comfortable Cardiovascular - regular rate and rhythm, S1-S2 Lungs - normal respiratory effort, clear to auscultation bilaterally, no wheez ing Abdomen - soft, nontender, no rebound or guarding Extremities - no edema bilaterally Neuro - awake and alert, no focal deficits; negative nuchal rigidity, negative Brudzinski's / Kernig's signs; no facial assymetry, able to obey basic command and speech comprehensible Objective Data Active Medications Acetaminophen (Acetaminophen 325 Mg Tablet) 650 mg PO Q6H PRN PRN Reason: Pain, Mild (Pain Scale 1-3) Last Admin: 09/03/21 06:47 Dose: 650 mg Documented by: JORGE L Albuterol/Ipratropium (Albuterol/Iprat 2.5/0.5mg 3 Ml Ampul.Neb) 3 ml INHALE RQ4H PRN PRN Reason: Shortness of Breath/Wheezing Last Admin: 09/02/21 22:40 Dose: 3 ml Documented by: GAGE Amlodipine Besylate (Amlodipine Besylate 5 Mg Tablet) 5 mg PO BEDTIME [facility]; Protocol Last Admin: 09/02/21 23:41 Dose: 5 mg Documented by: JORGE L Atorvastatin Calcium (Atorvastatin Calcium 40 Mg Tablet) 40 mg PO BEDTIME [facility] Cyanocobalamin (Cyanocobalamin (Vitamin B-12) 1,000 Mcg Tablet) 1,000 mcg PO DAILY [facility] Last Admin: 09/03/21 08:36 Dose: 1,000 mcg Documented by: PAULY Enoxaparin Sodium (Enoxaparin Sodium 100 Mg/Ml Syringe) 90 mg 1 mg/kg (90 mg) SUBCUT Q12H [facility] Last Admin: 09/02/21 23:43 Dose: 90 mg Documented by: JORGE L Folic Acid (Folic Acid 1 Mg Tablet) 1 mg PO DAILY [facility] Last Admin: 09/03/21 08:36 Dose: 1 mg Documented by: PAULY Gabapentin (Gabapentin 600 Mg Tablet) 600 mg PO BID [facility] Last Admin: 09/03/21 08:37 Dose: 600 mg Documented by: PAULY Dextrose/Sodium Chloride (D5ns) 1,000 mls @ 75 mls/hr IVCONT .[id number] [facility] Last Admin: 09/02/21 22:55 Dose: 75 mls/hr Documented by: JORGE L Piperacillin Sod/Tazobactam (Sod 3.375 gm/ Sodium Chloride) 50 mls @ 100 mls/hr IV Q6H [facility] Last Admin: 09/03/21 09:56 Dose: 100 mls/hr Documented by: PAULY Vancomycin HCl 1,000 mg/Vancomycin HCl 750 mg/ Sodium Chloride 535 mls @ 267.5 mls/hr IV Q24H [facility] Last Infusion: 09/03/21 01:29 Dose: 0 mls/hr Documented by: JORGE L Labetalol HCl (Labetalol Hcl 100 Mg/20 Ml Vial) 10 mg IVPUSH Q4H PRN PRN Reason: Sbp > 170 Lisinopril (Lisinopril 40 Mg Tablet) 40 mg PO DAILY [facility]; Protocol Last Admin: 09/03/21 08:37 Dose: 40 mg Documented by: PAULY Melatonin (Melatonin 3 Mg Tablet) 6 mg PO BEDTIME PRN PRN Reason: Insomnia Methylprednisolone Sodium Succinate (Methylprednisolone Sod Succ 125 Mg/2 Ml Vial) 60 mg IVPUSH Q8H [facility] Last Admin: 09/03/21 08:37 Dose: 60 mg Documented by: PAULY Metoprolol Succinate (Metoprolol Succinate Er 25 Mg Tab.Er.24h) 25 mg PO DAILY [facility]; Protocol Last Admin: 09/03/21 08:36 Dose: 25 mg Documented by: PAULY Morphine Sulfate (Morphine Sulfate 2 Mg/Ml Cartridge) 1 mg IVPUSH Q4H PRN; Protocol PRN Reason: Shortness of Breath Last Admin: 09/03/21 01:41 Dose: 1 mg Documented by: JORGE L Naltrexone HCl (Naltrexone Hcl 50 Mg Tablet) 50 mg PO DAILY [facility] Last Admin: 09/03/21 09:52 Dose: 50 mg Documented by: PAULY Non-Formulary Medication (Umeclidinium [Incruse Ellipta]) 1 puff INHALE DAILY [facility] Olanzapine (Olanzapine 10 Mg Tablet) 20 mg PO BEDTIME [facility] Omeprazole (Omeprazole 20 Mg Capsule.Dr) 20 mg PO DAILY [facility] Last Admin: 09/03/21 08:36 Dose: 20 mg Documented by: PAULY Pharmacy Consult (Consult Rx Vancomycin Dosing) 1 each MISCELLANE DAILY PRN PRN Reason: Consult order Phenytoin (Phenytoin Chewable 50 Mg Tab.Chew) 50 mg PO BID [facility] Last Admin: 09/03/21 09:52 Dose: 50 mg Documented by: PAULY Senna (Sennosides 8.6 Mg Tablet) 17.2 mg PO BEDTIME PRN PRN Reason: Constipation Sertraline HCl (Sertraline Hcl 25 Mg Tablet) 25 mg PO DAILY [facility] Last Admin: 09/03/21 08:36 Dose: 25 mg Documented by: PAULY Sodium Chloride (0.9 % Sodium Chloride Flush 3 Ml Syringe) [facility] Last Admin: 09/03/21 08:37 Dose: 3 ml Documented by: PAUYL Spironolactone (Spironolactone 25 Mg Tablet) 50 mg PO DAILY [facility]; Protocol Last Admin: 09/03/21 08:36 Dose: 50 mg Documented by: PAULY Tamsulosin HCl (Tamsulosin Hcl 0.4 Mg Capsule) 0.4 mg PO DAILY [facility] Last Admin: 09/03/21 08:36 Dose: 0.4 mg Documented by: PAULY Thiamine HCl (Thiamine Hcl 100 Mg Tablet) 100 mg PO DAILY [facility] Last Admin: 09/03/21 08:36 Dose: 100 mg Documented by: PAULY Vitamin D (Cholecalciferol (Vitamin D3) 25 Mcg Tablet) 50 mcg PO DAILY [facility] Last Admin: 09/03/21 08:36 Dose: 50 mcg Documented by: PAULY Labs CBC & Chem 7: 09/03/21 06:14 09/03/21 06:14 Labs: Laboratory Results - last 24 hr 09/02/21 09/02/21 09/02/21 19:22 19:32 19:58 MCV MCH MCHC RDW Plt Count MPV Immature Gran % (Auto) Neut % (Auto) Lymph % (Auto) [place] % (Auto) Eos % (Auto) Baso % (Auto) Lymph # (Auto) [place] # (Auto) Eos # (Auto) Baso # (Auto) Abs Immat Gran (auto) Absolute Neuts (auto) Absolute Nucleated RBC Nucleated RBC % (auto) PT Whole Blood PT 11.8 INR Whole Blood INR 1.0 APTT Anion Gap Estim Creat Clear Calc Estimated GFR POC Glucose 109 Random Glucose Lactic Acid Calcium Troponin I High Sens 25.2 B-Natriuretic Peptide Hold Red Top Urine Color Urine Appearance Urine pH Ur Specific [place] Urine Protein Urine Glucose (UA) Urine Ketones Urine Blood Urine Nitrite Ur Leukocyte Esterase Phenytoin COVID-19 (KATELYNN) COVID-19 Clin Com Influenza Type A (TR) Influenza Type B (TR) Influenza A & B Note 09/02/21 09/02/21 09/02/21 19:59 19:59 19:59 MCV 91.5 MCH 29.4 MCHC 32.1 RDW 13.3 Plt Count 188 D MPV 9.1 L Immature Gran % (Auto) 0.3 Neut % (Auto) 75.3 H Lymph % (Auto) 12.7 L [place] % (Auto) 8.9 Eos % (Auto) 2.4 Baso % (Auto) 0.4 Lymph # (Auto) 0.9 L [place] # (Auto) 0.6 Eos # (Auto) 0.2 Baso # (Auto) 0.0 Abs Immat Gran (auto) 0.02 Absolute Neuts (auto) 5.3 Absolute Nucleated RBC 0.000 Nucleated RBC % (auto) 0.0 PT 11.3 Whole Blood PT INR 1.0 Whole Blood INR APTT 28.5 Anion Gap 10 L Estim Creat Clear Calc 107.1 Estimated GFR > 60 POC Glucose Random Glucose 106 Lactic Acid Calcium 9.2 Troponin I High Sens B-Natriuretic Peptide Hold Red Top Urine Color Urine Appearance Urine pH Ur Specific [place] Urine Protein Urine Glucose (UA) Urine Ketones Urine Blood Urine Nitrite Ur Leukocyte Esterase Phenytoin 2.7 L* COVID-19 (KATELYNN) COVID-19 Clin Com Influenza Type A (TR) Influenza Type B (TR) Influenza A & B Note 09/02/21 09/02/21 09/02/21 19:59 20:00 20:01 MCV MCH MCHC RDW Plt Count MPV Immature Gran % (Auto) Neut % (Auto) Lymph % (Auto) [place] % (Auto) Eos % (Auto) Baso % (Auto) Lymph # (Auto) [place] # (Auto) Eos # (Auto) Baso # (Auto) Abs Immat Gran (auto) Absolute Neuts (auto) Absolute Nucleated RBC Nucleated RBC % (auto) PT Whole Blood PT INR Whole Blood INR APTT Anion Gap Estim Creat Clear Calc Estimated GFR POC Glucose Random Glucose Lactic Acid Calcium Troponin I High Sens B-Natriuretic Peptide 323 H Hold Red Top See Note Urine Color Urine Appearance Urine pH Ur Specific [place] Urine Protein Urine Glucose (UA) Urine Ketones Urine Blood Urine Nitrite Ur Leukocyte Esterase Phenytoin COVID-19 (KATELYNN) COVID-19 Clin Com Influenza Type A (TR) Negative Influenza Type B (TR) Negative Influenza A & B Note See Note 09/02/21 09/02/21 09/02/21 20:01 20:05 20:13 MCV MCH MCHC RDW Plt Count MPV Immature Gran % (Auto) Neut % (Auto) Lymph % (Auto) [place] % (Auto) Eos % (Auto) Baso % (Auto) Lymph # (Auto) [place] # (Auto) Eos # (Auto) Baso # (Auto) Abs Immat Gran (auto) Absolute Neuts (auto) Absolute Nucleated RBC Nucleated RBC % (auto) PT Whole Blood PT INR Whole Blood INR APTT Anion Gap Estim Creat Clear Calc Estimated GFR POC Glucose Random Glucose Lactic Acid 1.6 Calcium Troponin I High Sens B-Natriuretic Peptide Hold Red Top Urine Color YELLOW Urine Appearance CLEAR Urine pH 6.0 Ur Specific [place] 1.020 Urine Protein NEG Urine Glucose (UA) NEG Urine Ketones NEG Urine Blood NEG Urine Nitrite NEG Ur Leukocyte Esterase NEG Phenytoin COVID-19 (KATELYNN) Negative COVID-19 Clin Com See Note Influenza Type A (TR) Influenza Type B (TR) Influenza A & B Note 09/03/21 09/03/21 09/03/21 06:14 06:14 06:14 MCV 92.6 MCH 30.1 MCHC 32.5 RDW 13.4 Plt Count 182 MPV 9.4 Immature Gran % (Auto) 0.7 H Neut % (Auto) 85.9 H Lymph % (Auto) 8.5 L [place] % (Auto) 4.2 Eos % (Auto) 0.2 Baso % (Auto) 0.5 Lymph # (Auto) 0.5 L [place] # (Auto) 0.3 Eos # (Auto) 0.0 Baso # (Auto) 0.0 Abs Immat Gran (auto) 0.04 H Absolute Neuts (auto) 5.2 Absolute Nucleated RBC 0.000 Nucleated RBC % (auto) 0.0 PT Whole Blood PT INR Whole Blood INR APTT Anion Gap 12 Estim Creat Clear Calc 98.1 Estimated GFR > 60 POC Glucose Random Glucose 140 H Lactic Acid Calcium 9.0 Troponin I High Sens 51.7 H D B-Natriuretic Peptide Hold Red Top Urine Color Urine Appearance Urine pH Ur Specific [place] Urine Protein Urine Glucose (UA) Urine Ketones Urine Blood Urine Nitrite Ur Leukocyte Esterase Phenytoin COVID-19 (KATELYNN) COVID-19 Clin Com Influenza Type A (TR) Influenza Type B (TR) Influenza A & B Note 09/03/21 07:40 MCV MCH MCHC RDW Plt Count MPV Immature Gran % (Auto) Neut % (Auto) Lymph % (Auto) [place] % (Auto) Eos % (Auto) Baso % (Auto) Lymph # (Auto) [place] # (Auto) Eos # (Auto) Baso # (Auto) Abs Immat Gran (auto) Absolute Neuts (auto) Absolute Nucleated RBC Nucleated RBC % (auto) PT Whole Blood PT INR Whole Blood INR APTT Anion Gap Estim Creat Clear Calc Estimated GFR POC Glucose 142 H Random Glucose Lactic Acid Calcium Troponin I High Sens B-Natriuretic Peptide Hold Red Top Urine Color Urine Appearance Urine pH Ur Specific [place] Urine Protein Urine Glucose (UA) Urine Ketones Urine Blood Urine Nitrite Ur Leukocyte Esterase Phenytoin COVID-19 (KATELYNN) COVID-19 Clin Com Influenza Type A (TR) Influenza Type B (TR) Influenza A & B Note Assessment and Plan (1) DVT (deep venous thrombosis): Status: Acute Plan This is a 65 year old male with a PMH of alcohol abuse, CMP, Cirrhosis, seizure d/o, 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 He is found to meet SIRS criteria, but no definitive source of infection is identified thus far. 1. Toxic/Metabolic encephalopathy possible infectious etiology; other contributing factors including uncontrolled HTN / Hypertensive emergency he appears to be improving at this time 2. SIRS no definitive source of infection at this time multiple temperatures since ED arrival -- empirically on vancomcyin/zosn; question is fevers related to clot ID consult no meningeal signs present currently 3. HTN Urgency improved continue baseline meds and uptitrate as needed 4. LLE DVT lovenox for now, change to OAC by tomorrow 5. Mood continue baseline meeds Full Code DVT pptx, on Lovenox Quality Stroke Does the patient have a stroke diagnosis?: No VTE Prior VTE?: No VTE Risk Level:: Medical - moderate - high VTE Device Contraindication: Treatment Not Indicated VTE Drug Contraindication: N/A - Med Ordered
[2021-09-03 11:36] LABS: Alanine Aminotransferase 20 U/L (0-40); Albumin Level 3.7 g/dL (3.5-5.0); Alkaline Phosphatase 98 U/L (39-117); Aspartate Amino Transferase 24 U/L (5-37); Bilirubin Direct 0.3 mg/dL (0.0-0.5); Bilirubin Total 0.5 mg/dL (0.0-1.0)
--- NOTE | 2021-09-03 12:19 | MHC.SL.SWA ---
Speech Pathologist Impression: Oropharyngeal dysphagia Risk of Aspiration Due to: Neurological Condition Dysphasia Diet Status:Upgrade Liquid Consistency and Strategies for Safe Swallow: Liquid Intake Recommendation: Thin Liquid Intake Strategies: Small Sips Solid Food Consistency: Dietary Recommendations: Grnd/Mech Altered (NDD2) Additional Modifications to Solid Foods: Recommend GROUND/MECH ALTERED (NDD2) solids with sauces/gravies and THIN liquids, pills CRUSHED or WHOLE in PUREE. Aspiration precautions apply. Patient to have 1:1 supervision, assistance as needed. GEOSPATIAL SYSTEMS INTEGRATOR notified , RN, RD of recommendations. GEOSPATIAL SYSTEMS INTEGRATOR to continue to follow. Oral Medication Intake: Crushed with Puree Please contact the pharmacy regarding appropriate crushable or liquid drug formulations that are available whenever modified delivery is recommended. Compensatory Strategies and Precautions to be Taken for Safe Swallow: Sitting Upright (90 deg) Small Bites and Sips Alternate Liquids/Solids Rate of Ingestion Change Oral Check Avoid Specific Foods Supervision While Eating and Drinking for Safe Swallow: Total Supervision (1:1) Foods to Avoid: Tough, difficult to chew solids Swallowing Recommended Treatments: Compens. Strategy Educat. Recommendation for Speech: Inpatient Speech Therapy Comment: GEOSPATIAL SYSTEMS INTEGRATOR will f/u tomorrow morning. Frequency/Duration: M-F as appropriate. Date Range for Service Req: Timeline to reassess: Forestry Instructor Clinican/Clinical Fellow: No Supervisory Statement: I have reviewed and agree with the student/clinical fellow's documentation: N/A Speech Language Pathologist: Alison Hunter M.A., CCC-GEOSPATIAL SYSTEMS INTEGRATOR
[2021-09-03 12:24] LABS: Troponin-I High Sensitivity 33.3 ng/L (<3.5-35.0)
[2021-09-03] MEDS: Dextrose 5 % and 0.9 % NaCl 1,000 ML 75 ML IVCONT (13:29)
[2021-09-03] MEDS: Enoxaparin Sodium 100 MG/ML SYRINGE 90 MG SUBCUT ×2 (13:31→20:38)
--- NOTE | 2021-09-03 14:50 | MHC.CM.PN ---
Attempted to meet with patient in regards to discharge planning. Patient is currently confused. Spoke with patient's friend/HCP, Ashwin via telephone at [phone]. Patient lives alone, ambulates independently and had no services prior to coming to the hospital. Ashwin helps patient daily. Ashwin doesn't feel services will be necessary at d/c. PCP verified. Copy of HCP verified to be on file. IMM explained and left bedside. Patient received 3 Moderna vaccines. Ashwin will transport patient home when medically stable. Continue to monitor for d/c needs.
--- NOTE | 2021-09-03 16:25 | W.PM.IDCN ---
History of Present Illness Data of Consult Service Date: 09/03/21 Requesting physician: Dennis Kapadia Primary Care Provider: Lori Hernandez MD [facility] Reason for consult: fever of unknown origin,leg swelling He presents with confusion and fever to 103 He has left leg swelling and DVT Leg has some redness He has symptoms for a day Review of Systems Review of Systems: Yes Unobtainable due to mental condition PMFSH Past Medical History Medical History Alcohol abuse Cardiomyopathy Dementia GERD (gastroesophageal reflux disease) Hepatitis C antibody positive in blood Hypertension Seizure Family History Family History Father No problems noted. Mother No problems noted. Brother Cancer Sister No problems noted. Family history: reviewed and not pertinent Surgical History Surgical History No pertinent past surgical history Social History Social History Household Members: Unknown / Unable to assess Housing: Unknown / Unable to assess Unable to assess alcohol history related to: Unknown Alcohol intake: current Alcohol intake frequency: a few times a week Alcohol type: hard liquor Patient Tobacco Use Status: Tobacco use Unknown Substance Use Type: Unknown Advance Directives: Yes Advance Directives on File: Yes Advance Directives Date on File: 10/11/20 service: No Current occupational status: unemployed and disabled Meds Allergies Allergy/AdvReac Type Severity Reaction Status Date / Time No Known Allergies Allergy Verified 03/25/21 14:56 [No Known Allergies*] Active Medications: Current Medications Acetaminophen (Acetaminophen 325 Mg Tablet) 650 mg PO Q6H PRN PRN Reason: Pain, Mild (Pain Scale 1-3) Last Admin: 09/03/21 06:47 Dose: 650 mg Documented by: Albuterol/Ipratropium (Albuterol/Iprat 2.5/0.5mg 3 Ml Ampul.Neb) 3 ml INHALE RQ4H PRN PRN Reason: Shortness of Breath/Wheezing Last Admin: 09/02/21 22:40 Dose: 3 ml Documented by: Amlodipine Besylate (Amlodipine Besylate 5 Mg Tablet) 5 mg PO BEDTIME [facility]; Protocol Last Admin: 09/02/21 23:41 Dose: 5 mg Documented by: Atorvastatin Calcium (Atorvastatin Calcium 40 Mg Tablet) 40 mg PO BEDTIME [facility] Cyanocobalamin (Cyanocobalamin (Vitamin B-12) 1,000 Mcg Tablet) 1,000 mcg PO DAILY [facility] Last Admin: 09/03/21 08:36 Dose: 1,000 mcg Documented by: Enoxaparin Sodium (Enoxaparin Sodium 100 Mg/Ml Syringe) 90 mg 1 mg/kg (90 mg) SUBCUT Q12H [facility] Last Admin: 09/03/21 13:31 Dose: 90 mg Documented by: Folic Acid (Folic Acid 1 Mg Tablet) 1 mg PO DAILY [facility] Last Admin: 09/03/21 08:36 Dose: 1 mg Documented by: Gabapentin (Gabapentin 600 Mg Tablet) 600 mg PO BID [facility] Last Admin: 09/03/21 08:37 Dose: 600 mg Documented by: Dextrose/Sodium Chloride (D5ns) 1,000 mls @ 75 mls/hr IVCONT .[id number] [facility] Last Admin: 09/03/21 13:29 Dose: 75 mls/hr Documented by: Piperacillin Sod/Tazobactam (Sod 3.375 gm/ Sodium Chloride) 50 mls @ 100 mls/hr IV Q6H [facility] Last Infusion: 09/03/21 10:36 Dose: Infused Documented by: Vancomycin HCl 1,000 mg/Vancomycin HCl 750 mg/ Sodium Chloride 535 mls @ 267.5 mls/hr IV Q24H [facility] Last Infusion: 09/03/21 01:29 Dose: Infused Documented by: Labetalol HCl (Labetalol Hcl 100 Mg/20 Ml Vial) 10 mg IVPUSH Q4H PRN PRN Reason: Sbp > 170 Lisinopril (Lisinopril 40 Mg Tablet) 40 mg PO DAILY [facility]; Protocol Last Admin: 09/03/21 08:37 Dose: 40 mg Documented by: Melatonin (Melatonin 3 Mg Tablet) 6 mg PO BEDTIME PRN PRN Reason: Insomnia Methylprednisolone Sodium Succinate (Methylprednisolone Sod Succ 125 Mg/2 Ml Vial) 60 mg IVPUSH Q8H [facility] Last Admin: 09/03/21 08:37 Dose: 60 mg Documented by: Metoprolol Succinate (Metoprolol Succinate Er 25 Mg Tab.Er.24h) 25 mg PO DAILY [facility]; Protocol Last Admin: 09/03/21 08:36 Dose: 25 mg Documented by: Morphine Sulfate (Morphine Sulfate 2 Mg/Ml Cartridge) 1 mg IVPUSH Q4H PRN; Protocol PRN Reason: Shortness of Breath Last Admin: 09/03/21 01:41 Dose: 1 mg Documented by: Naltrexone HCl (Naltrexone Hcl 50 Mg Tablet) 50 mg PO DAILY [facility] Last Admin: 09/03/21 09:52 Dose: 50 mg Documented by: Olanzapine (Olanzapine 10 Mg Tablet) 20 mg PO BEDTIME [facility] Omeprazole (Omeprazole 20 Mg Capsule.Dr) 20 mg PO DAILY [facility] Last Admin: 09/03/21 08:36 Dose: 20 mg Documented by: Pharmacy Consult (Consult Rx Vancomycin Dosing) 1 each MISCELLANE DAILY PRN PRN Reason: Consult order Phenytoin (Phenytoin Chewable 50 Mg Tab.Chew) 50 mg PO BID [facility] Last Admin: 09/03/21 09:52 Dose: 50 mg Documented by: Senna (Sennosides 8.6 Mg Tablet) 17.2 mg PO BEDTIME PRN PRN Reason: Constipation Sertraline HCl (Sertraline Hcl 25 Mg Tablet) 25 mg PO DAILY [facility] Last Admin: 09/03/21 08:36 Dose: 25 mg Documented by: Sodium Chloride (0.9 % Sodium Chloride Flush 3 Ml Syringe) [facility] Last Admin: 09/03/21 15:53 Dose: Not Given Documented by: Spironolactone (Spironolactone 25 Mg Tablet) 50 mg PO DAILY [facility]; Protocol Last Admin: 09/03/21 08:36 Dose: 50 mg Documented by: Tamsulosin HCl (Tamsulosin Hcl 0.4 Mg Capsule) 0.4 mg PO DAILY [facility] Last Admin: 09/03/21 08:36 Dose: 0.4 mg Documented by: Thiamine HCl (Thiamine Hcl 100 Mg Tablet) 100 mg PO DAILY [facility] Last Admin: 09/03/21 08:36 Dose: 100 mg Documented by: Tiotropium [place] (Tiotropium [place] 18 Mcg Cap.W.Dev) 1 puff INHALE RDAILY [facility] Vitamin D (Cholecalciferol (Vitamin D3) 25 Mcg Tablet) 50 mcg PO DAILY [facility] Last Admin: 09/03/21 08:36 Dose: 50 mcg Documented by: Home Medications Medication Instructions Recorded Confirmed Last Taken Type atorvastatin 40 mg tablet 40 mg PO BEDTIME 04/01/20 09/02/21 Unknown History cholecalciferol (vitamin D3) 50 50 mcg PO DAILY 04/01/20 09/02/21 Unknown History mcg (2,000 unit) capsule gabapentin 600 mg tablet 600 mg PO BID 04/01/20 09/02/21 Unknown History metoprolol succinate 25 mg 25 mg PO DAILY 04/01/20 09/02/21 Unknown History tablet,extended release 24 hr phenytoin 50 mg chewable tablet 50 mg PO BID 04/01/20 09/02/21 Unknown History tamsulosin 0.4 mg capsule 0.4 mg PO DAILY 04/01/20 09/02/21 Unknown History umeclidinium 62.5 mcg/actuation 1 puff INHALATION DAILY 09/26/20 09/02/21 Unknown History blister powder for inhalation (Incruse Ellipta) naltrexone 50 mg tablet 1 tab PO DAILY 06/23/21 09/02/21 Unknown History sertraline 25 mg tablet 1 tab PO DAILY 06/23/21 09/02/21 Unknown History amlodipine 5 mg tablet 5 mg PO QPM 09/02/21 09/02/21 Unknown History melatonin 5 mg tablet 1 tab PO BEDTIME 09/02/21 09/02/21 Unknown History olanzapine 20 mg tablet 1 tab PO BEDTIME 09/02/21 09/02/21 Unknown History Physical Exam Vital Signs: Vital Signs: Last Vital Signs Temp 99.0 F 09/03/21 15:58 Pulse 762 H 09/03/21 15:58 Resp 16 09/03/21 15:58 BP 149/66 H 09/03/21 15:58 Pulse Ox 95 09/03/21 15:58 BMI result Body Mass Index 29.9 Const: General: cooperative Eyes: General: appearance normal, both eyes and all related structures Resp: Effort & Inspection: normal respiratory effort Cardio: Rate: regular rate Rhythm: regular rhythm GI: Palpation (GI): Soft to palpation and nontender Skin: Other: LLE reddened area distal Results Labs CBC & Chem 7: 09/03/21 06:14 09/03/21 06:14 Labs: Short CBC 09/02/21 09/03/21 Range/Units 19:59 06:14 WBC 7.1 6.0 (4.8-10.8) X10*3/uL Hgb 11.7 L 12.2 L (14.0-18.0) g/dl Hct 36.4 L 37.5 L (42.0-52.0) % Plt Count 188 D 182 (160-400) X10*3/uL BMP 09/02/21 09/03/21 19:59 06:14 Sodium 139 138 Potassium 4.1 3.9 Chloride 106 103 Carbon Dioxide 27 27 BUN 10 10 Creatinine 0.76 0.83 Calcium 9.2 9.0 Liver Function 09/03/21 Range/Units 06:14 Total Bilirubin 0.5 (0.0-1.0) mg/dL Direct Bilirubin 0.3 (0.0-0.5) mg/dL AST 24 (5-37) U/L ALT 20 (0-40) U/L Alkaline Phosphatase 98 (39-117) U/L Albumin 3.7 (3.5-5.0) g/dL Urine 09/02/21 Range/Units 20:13 Urine Color YELLOW Urine Appearance CLEAR Urine pH 6.0 (5.0-8.0) Ur Specific [place] 1.020 (1.005-1.025) Urine Protein NEG (NEG-TRACE) MG/DL Urine Glucose (UA) NEG (NEG) MG/DL Assessment and Plan (1) DVT of deep femoral vein: Status: Acute (2) Cellulitis: Status: Acute Fever likely due to DVT There was no PE on CT He may have cellulitic area distal leg Urinalysis is negative so doubt gram negative Plan Would continue Vancomycin alone Rx DVT Await blood cultures
--- NOTE | 2021-09-03 17:24 | PC.NURSE ---
pt medicated per provider order - PRN pain medication administered. pt experiencing increased agitation, [employer] professor called - pt wants to go home, but no other complaints. park interpreter explained that pt needs to relax and reviewed need for hospital admission. pt repeatedly trying to pull out IV/vizcaino, RNs and tech having very little success redirecting behavior. pt has had 1:1 observation since 1514. provider notified.
[2021-09-03 17:45] LABS: Glucose, Whole Blood 137 mg/dL (60-115)
--- NOTE | 2021-09-03 18:00 | PC.NURSE ---
patient is attempting to hit and kick staff and is attempting to pull out vizcaino cath, ripped off tele monitor and attempting to pull off iv, pt took his bag, took off hospital attire and was dressing himself, pt currently only alert to person, and continues to be agitated and combative, provider is aware.
[2021-09-03] MEDS: LORazepam 2 MG/ML VIAL 1 MG IVPUSH (18:40)
--- NOTE | 2021-09-03 18:45 | PC.NURSE ---
pt is experiencing increased agitation/disorientation. continues to try to pull out IV and vizcaino despite redirection and 1:1 sitter. medicated w PRN lorazepam per provider order.
[2021-09-03] MEDS: OLANZapine 10 MG TABLET 20 MG PO (20:25)
[2021-09-03] MEDS: Atorvastatin Calcium 40 MG TABLET PO (20:26)
[2021-09-03] MEDS: amLODIPine Besylate 5 MG TABLET PO (20:26)
[2021-09-03 21:39] LABS: Vancomycin Random 4.2 mcg/mL (15-20)
--- NOTE | 2021-09-03 21:54 | PHA.PROG ---
Admission Date/Time: September 02, 2021 22:00 Indication: Weight in k.1 kg Adjusted body weight in Kg: [place] body weight in Kg: Obesity Dosing Indication % IBW: Serum Creatinine - Last 168 Hours 09/02/21 09/03/21 19:59 06:14 Creatinine 0.76 0.83 Estimated CrCl and GFR - Last 168 Hours 09/02/21 09/03/21 19:59 06:14 Estim Creat Clear Calc 107.1 98.1 Estimated GFR > 60 > 60 Vancomycin Loading Dose: Current Vancomycin Dosing Regimen: Vancomycin Monitoring using AUC goal of 400 - 600 range with trough as surrogate marker: Date and Time for next Vancomycin Level to be drawn: Pharmacist Comments on Vancomycin Plan: AUC predicted to be 366 with current regimen, changed to 1 gm q12h random trough [email or web address] Vancomycin dosing will take advantage of [employer] as a clinical decision support tool that uses Bayesian modeling to calculate individual patient's pharmacokinetic parameters and forecast the patient's drug concentration time course with the target goal AUC 24 range of 400 - 600 mg/L/hr.
[2021-09-03] MEDS: vancomycin HCL 1,000 MG in 0.9 % Sodium Chloride 250 ML 270 MG IV (23:54)
[2021-09-04] VITALS (9 sets, daily range): BP systolic 152–194; BP diastolic 76–100; PULSE 74–125; RESP 18–20; TEMP 36.6–37.3; O2SAT 92–98
[2021-09-04] MEDS: Dextrose 5 % and 0.9 % NaCl 1,000 ML 75 ML IVCONT (02:47)
[2021-09-04] MEDS: Albuterol/Iprat 2.5/0.5MG 3 ML AMPUL.NEB INHALE ×3 (04:20→15:06)
[2021-09-04 09:06] LABS: Creatinine Clr Calc Pharmacy 111.5; Estimated Glomerular Filt Rate > 60
[2021-09-04] MEDS: 0.9 % Sodium Chloride Flush 3 ML SYRINGE IVFLUSH (09:30)
[2021-09-04] MEDS: Metoprolol Succinate ER 25 MG TAB.ER.24H PO (09:31)
[2021-09-04] MEDS: Cholecalciferol (Vitamin D3) 25 MCG TABLET 50 MCG PO (09:31)
[2021-09-04] MEDS: Naltrexone HCl 50 MG TABLET PO (09:32)
[2021-09-04] MEDS: Omeprazole 20 MG CAPSULE.DR PO (09:32)
[2021-09-04] MEDS: Spironolactone 25 MG TABLET 50 MG PO (09:32)
[2021-09-04] MEDS: Sertraline HCL 25 MG TABLET PO (09:33)
[2021-09-04] MEDS: Tamsulosin HCL 0.4 MG CAPSULE PO (09:33)
[2021-09-04] MEDS: Thiamine HCL 100 MG TABLET PO (09:33)
[2021-09-04] MEDS: Cyanocobalamin (Vitamin B-12) 1,000 MCG TABLET 1000 MCG PO (09:33)
[2021-09-04] MEDS: Folic Acid 1 MG TABLET PO (09:33)
[2021-09-04] MEDS: Phenytoin Chewable 50 MG TAB.CHEW PO ×2 (09:34→20:55)
[2021-09-04] MEDS: lisinopriL 40 MG TABLET PO (09:34)
[2021-09-04] MEDS: Gabapentin 600 MG TABLET PO ×2 (09:34→20:55)
[2021-09-04] MEDS: methylPREDNISolone Sod Succ 125 MG/2 ML VIAL 60 MG IVPUSH (10:00)
[2021-09-04] MEDS: amLODIPine Besylate 5 MG TABLET PO ×2 (10:50→20:55)
[2021-09-04] MEDS: Enoxaparin Sodium 100 MG/ML SYRINGE 90 MG SUBCUT (10:50)
[2021-09-04] MEDS: vancomycin HCL 1,000 MG in 0.9 % Sodium Chloride 250 ML 270 MG IV (10:54)
--- NOTE | 2021-09-04 12:40 | P.PNIM_ITS ---
Subjective Subjective Date of Service: 09/04/21 Interval History: seen and examined this morning with the assistance of a certified court/medical interpreter follow up for fever feeling some sob this am as well as dry cough Review of Systems Review of Systems: Yes all other systems are reviewed and are negative Constitutional Constitutional: Denies chills and Denies fever(s) Cardiovascular Cardiovascular: Denies chest pain, Denies palpitations and Reports dyspnea Respiratory Respiratory: Reports cough and Reports dyspnea Gastrointestinal Gastrointestinal: Denies abdominal pain, Denies nausea and Denies vomiting Endocrine Endocrine: Denies palpitations Physical Exam Vital Signs: Vital Signs: Last Vital Signs Temp 98.4 F 09/04/21 06:51 Pulse 74 09/04/21 11:10 Resp 20 09/04/21 11:10 BP 190/90 H 09/04/21 06:51 Pulse Ox 95 09/04/21 06:51 BMI result Body Mass Index 29.9 Const: General: cooperative, comfortable, alert and awake Nutritional Appearance: overweight Resp: Other: b/l expiratory wheezing Effort & Inspection: normal respiratory effort Cardio: Rate: regular rate Heart sounds: S1 normal heart sound present and S2 normal heart sound present GI: Inspection: No distended Palpation (GI): Soft to palpation and nontender Extrem: General: Yes no pedal edema Objective Data Active Medications Acetaminophen (Acetaminophen 325 Mg Tablet) 650 mg PO Q6H PRN PRN Reason: Pain, Mild (Pain Scale 1-3) Last Admin: 09/03/21 17:19 Dose: 650 mg Documented by: MADDENTrent Albuterol/Ipratropium (Albuterol/Iprat 2.5/0.5mg 3 Ml Ampul.Neb) 3 ml INHALE RQ4H PRN PRN Reason: Shortness of Breath/Wheezing Last Admin: 09/04/21 11:10 Dose: 3 ml Documented by: JON Amlodipine Besylate (Amlodipine Besylate 5 Mg Tablet) 5 mg PO BID [facility]; Protocol Last Admin: 09/04/21 10:50 Dose: 5 mg Documented by: YING Atorvastatin Calcium (Atorvastatin Calcium 40 Mg Tablet) 40 mg PO BEDTIME [facility] Last Admin: 09/03/21 20:26 Dose: 40 mg Documented by: ANTOIC Cyanocobalamin (Cyanocobalamin (Vitamin B-12) 1,000 Mcg Tablet) 1,000 mcg PO DAILY [facility] Last Admin: 09/04/21 09:33 Dose: 1,000 mcg Documented by: YING Enoxaparin Sodium (Enoxaparin Sodium 100 Mg/Ml Syringe) 90 mg 1 mg/kg (90 mg) SUBCUT Q12H [facility] Last Admin: 09/04/21 10:50 Dose: 90 mg Documented by: YING Folic Acid (Folic Acid 1 Mg Tablet) 1 mg PO DAILY [facility] Last Admin: 09/04/21 09:33 Dose: 1 mg Documented by: YING Gabapentin (Gabapentin 600 Mg Tablet) 600 mg PO BID [facility] Last Admin: 09/04/21 09:34 Dose: 600 mg Documented by: YING Vancomycin HCl 1,000 mg/ (Sodium Chloride) 270 mls @ 270 mls/hr IV Q12H [facility] Last Infusion: 09/04/21 12:26 Dose: 0 mls/hr Documented by: YING Labetalol HCl (Labetalol Hcl 100 Mg/20 Ml Vial) 10 mg IVPUSH Q4H PRN PRN Reason: Sbp > 170 Lisinopril (Lisinopril 40 Mg Tablet) 40 mg PO DAILY [facility]; Protocol Last Admin: 09/04/21 09:34 Dose: 40 mg Documented by: YING Melatonin (Melatonin 3 Mg Tablet) 6 mg PO BEDTIME PRN PRN Reason: Insomnia Methylprednisolone Sodium Succinate (Methylprednisolone Sod Succ 125 Mg/2 Ml Via l) 60 mg IVPUSH Q8H [facility] Last Admin: 09/04/21 10:00 Dose: 60 mg Documented by: YING Metoprolol Succinate (Metoprolol Succinate Er 25 Mg Tab.Er.24h) 25 mg PO DAILY [facility]; Protocol Last Admin: 09/04/21 09:31 Dose: 25 mg Documented by: YING Morphine Sulfate (Morphine Sulfate 2 Mg/Ml Cartridge) 1 mg IVPUSH Q4H PRN; Protocol PRN Reason: Shortness of Breath Last Admin: 09/03/21 17:17 Dose: 1 mg Documented by: NAYELI Naltrexone HCl (Naltrexone Hcl 50 Mg Tablet) 50 mg PO DAILY [facility] Last Admin: 09/04/21 09:32 Dose: 50 mg Documented by: YING Olanzapine (Olanzapine 10 Mg Tablet) 20 mg PO BEDTIME [facility] Last Admin: 09/03/21 20:25 Dose: 20 mg Documented by: SACHIN Omeprazole (Omeprazole 20 Mg Capsule.) 20 mg PO DAILY [facility] Last Admin: 09/04/21 09:32 Dose: 20 mg Documented by: YING Pharmacy Consult (Consult Rx Vancomycin Dosing) 1 each MISCELLANE DAILY PRN PRN Reason: Consult order Phenytoin (Phenytoin Chewable 50 Mg Tab.Chew) 50 mg PO BID [facility] Last Admin: 09/04/21 09:34 Dose: 50 mg Documented by: YING Senna (Sennosides 8.6 Mg Tablet) 17.2 mg PO BEDTIME PRN PRN Reason: Constipation Sertraline HCl (Sertraline Hcl 25 Mg Tablet) 25 mg PO DAILY [facility] Last Admin: 09/04/21 09:33 Dose: 25 mg Documented by: YING Sodium Chloride (0.9 % Sodium Chloride Flush 3 Ml Syringe) 3 ml IVFLUSH QSHIFT [facility] Last Admin: 09/04/21 09:30 Dose: 3 ml Documented by: YING Spironolactone (Spironolactone 25 Mg Tablet) 50 mg PO DAILY [facility]; Protocol Last Admin: 09/04/21 09:32 Dose: 50 mg Documented by: YING Tamsulosin HCl (Tamsulosin Hcl 0.4 Mg Capsule) 0.4 mg PO DAILY [facility] Last Admin: 09/04/21 09:33 Dose: 0.4 mg Documented by: YING Thiamine HCl (Thiamine Hcl 100 Mg Tablet) 100 mg PO DAILY [facility] Last Admin: 09/04/21 09:33 Dose: 100 mg Documented by: YING Tiotropium [place] (Tiotropium [place] 18 Mcg Cap.W.Dev) 1 puff INHALE RDAILY [facility] Last Admin: 09/04/21 08:26 Dose: 1 puff Documented by: JON Vitamin D (Cholecalciferol (Vitamin D3) 25 Mcg Tablet) 50 mcg PO DAILY [facility] Last Admin: 09/04/21 09:31 Dose: 50 mcg Documented by: YING Labs CBC & Chem 7: 09/03/21 06:14 09/04/21 08:25 Labs: Laboratory Results - last 24 hr 09/02/21 09/02/21 09/03/21 19:22 19:32 12:52 Whole Blood PT 11.8 Whole Blood INR 1.0 Estim Creat Clear Calc Estimated GFR POC Glucose 109 137 H Random Vancomycin 09/03/21 09/04/21 20:56 08:25 Whole Blood PT Whole Blood INR Estim Creat Clear Calc 111.5 Estimated GFR > 60 POC Glucose Random Vancomycin 4.2 L Microbiology Microbiology Results: Microbiology 09/02/21 20:20 Blood Culture - Preliminary Blood - Venous No growth after 24 hours. 09/02/21 20:01 Blood Culture - Preliminary Blood - Venous No growth after 24 hours. 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 He is found to meet SIRS criteria, but no definitive source of infection is identified thus far. Toxic/Metabolic encephalopathy likely underlying etoh dementia possible infectious etiology; other contributing factors including uncontrolled HTN / Hypertensive emergency brain CT with no acute abnormalities he appears to be improving at this time SIRS no fever x 24 hours seen by ID, feels that fever likely r/t DVT zosyn d/c; plan to continue vanco empirically until final blood cultures return negative no meningeal signs present currently blood cultures negative x 24 hours lactic acid wnl HTN Urgency BP elevated this am will increase dose of norvasc continue lisinopril, metoprolol monitor BP closely COPD exacerbation continue breathing treatments, systemic steroids LLE DVT initially started on lovenox, will change to Eliquis HLD continue statin History of dysphagia:? Patient reports he is on soft diet.? Seen by speech, rec ground/[facility] altered diet Aspiration precautions. h/o seizure: continue home gabapentin, phenytoin Mood Continue home sertraline/olanzapine History of BPH: Continue home Flomax Full Code DVT pptx, Eliquis attending - dr. simmons Quality Stroke Does the patient have a stroke diagnosis?: No VTE Prior VTE?: No VTE Risk Level:: Medical - moderate - high VTE Device Contraindication: Treatment Not Indicated VTE Drug Contraindication: N/A - Med Ordered
--- NOTE | 2021-09-04 13:53 | MHC.SL.SWA ---
Speech Pathologist Impression: Risk of Aspiration Due to: Neurological Condition Dysphasia Diet Status: Liquid Consistency and Strategies for Safe Swallow: Liquid Intake Recommendation: Thin Liquid Intake Strategies: Small Sips Solid Food Consistency: Dietary Recommendations: Grnd/Mech Altered (NDD2) Additional Modifications to Solid Foods: Recommend GROUND/MECH ALTERED (NDD2) solids with sauces/gravies and THIN liquids, pills CRUSHED or WHOLE in PUREE. Aspiration precautions apply. Patient to have 1:1 supervision, assistance as needed. Oral Medication Intake: Crushed with Puree Please contact the pharmacy regarding appropriate crushable or liquid drug formulations that are available whenever modified delivery is recommended. Compensatory Strategies and Precautions to be Taken for Safe Swallow: Sitting Upright (90 deg) Liquids from Cup Small Bites and Sips Alternate Liquids/Solids Rate of Ingestion Change Oral Check Avoid Specific Foods Supervision While Eating and Drinking for Safe Swallow: Total Supervision (1:1) Foods to Avoid: Tough, difficult to chew solids Swallowing Recommended Treatments: Compens. Strategy Educat. Recommendation for Speech: Inpatient Speech Therapy: Pt continues to be very confused, calling out for familiar people, stating that he is getting out of the hospital right away. Pt tolerated cup sip of thin liquid, w/ timely oral transit, present swallow trigger, no clinical s/s of aspiration. Pt tolerated pugging consistency well with some tongue pumping noted, present swallow trigger and timely swallow. Pt ate well at breakfast on current diet of NDD2 w/ thin liquids, per [employer]. Recommend continue on NDD2 w/ THIN Liquids. Comment: Pills whole or crushed in puree per patient's tolerance/preference. Frequency/Duration: M-F as appropriate. Date Range for Service Req: Timeline to reassess: Manager Business Systems Clinican/Clinical Fellow: No Supervisory Statement: I have reviewed and agree with the student/clinical fellow's documentation: N/A Speech Language Pathologist: Ranjana Byrnes M.A., CCC-HVAC R INSTRUCTOR
[2021-09-04] MEDS: OLANZapine 10 MG TABLET 20 MG PO (20:55)
[2021-09-04] MEDS: Apixaban 5 MG TABLET 10 MG PO (20:55)
[2021-09-04] MEDS: Atorvastatin Calcium 40 MG TABLET PO (20:55)
[2021-09-04 21:27] LABS: Vancomycin Random 11.2 mcg/mL (15-20)
[2021-09-05] VITALS (8 sets, daily range): BP systolic 152–180; BP diastolic 72–99; PULSE 74–88; RESP 16–20; TEMP 36.4–37.6; O2SAT 92–95
[2021-09-05] MEDS: vancomycin HCL 1,000 MG in 0.9 % Sodium Chloride 250 ML 270 MG IV ×2 (01:00→10:39)
[2021-09-05] MEDS: 0.9 % Sodium Chloride Flush 3 ML SYRINGE IVFLUSH ×4 (01:02→20:54)
[2021-09-05] MEDS: Albuterol/Iprat 2.5/0.5MG 3 ML AMPUL.NEB INHALE (01:19)
[2021-09-05] MEDS: Melatonin 3 MG TABLET 6 MG PO ×2 (02:27→20:47)
[2021-09-05] MEDS: methylPREDNISolone Sod Succ 125 MG/2 ML VIAL 60 MG IVPUSH ×3 (02:28→20:47)
[2021-09-05 08:13] LABS: Anion Gap 9 (12-20); Blood Urea Nitrogen 10 mg/dL (9-16); Calcium 8.9 mg/dL (8.4-10.2); Carbon Dioxide 26 mmol/L (22-29); Chloride 110 mmol/L (96-108); Creatinine Clr Calc Pharmacy 107.1; Estimated Glomerular Filt Rate > 60; Glucose Random 138 mg/dL (60-115); Potassium 4.2 mmol/L (3.3-5.1); Sodium 141 mmol/L (135-145)
[2021-09-05] MEDS: Cholecalciferol (Vitamin D3) 25 MCG TABLET 50 MCG PO (08:31)
[2021-09-05] MEDS: Spironolactone 25 MG TABLET 50 MG PO (08:32)
[2021-09-05] MEDS: lisinopriL 40 MG TABLET PO (08:32)
[2021-09-05] MEDS: Apixaban 5 MG TABLET 10 MG PO ×2 (08:32→20:46)
[2021-09-05] MEDS: Omeprazole 20 MG CAPSULE.DR PO (08:32)
[2021-09-05] MEDS: Metoprolol Succinate ER 25 MG TAB.ER.24H PO (08:33)
[2021-09-05] MEDS: Thiamine HCL 100 MG TABLET PO (08:33)
[2021-09-05] MEDS: Cyanocobalamin (Vitamin B-12) 1,000 MCG TABLET 1000 MCG PO (08:33)
[2021-09-05] MEDS: amLODIPine Besylate 5 MG TABLET PO ×2 (08:33→20:46)
[2021-09-05] MEDS: Naltrexone HCl 50 MG TABLET PO (08:33)
[2021-09-05] MEDS: Sertraline HCL 25 MG TABLET PO (08:33)
[2021-09-05] MEDS: Phenytoin Chewable 50 MG TAB.CHEW PO ×2 (08:33→20:47)
[2021-09-05] MEDS: Tamsulosin HCL 0.4 MG CAPSULE PO (08:33)
[2021-09-05] MEDS: Folic Acid 1 MG TABLET PO (08:34)
[2021-09-05] MEDS: Gabapentin 600 MG TABLET PO ×2 (08:34→20:46)
--- NOTE | 2021-09-05 10:45 | MHC.SLORD ---
Speech Language Pathology Order Status: RN reports patient has not had any difficulties chewing or swallow. Recommend continue current diet recommendation GROUND/MECH ALTERED (NDD2) solids and THIN liquids. INSIDE POLISHER will continue to follow.
--- NOTE | 2021-09-05 12:31 | MHC.CM.PN ---
per rounds pt is having incresed confusion no anticapated dc date at this time
--- NOTE | 2021-09-05 13:13 | P.PNIM_ITS ---
Subjective Subjective Date of Service: 09/05/21 Interval History: seen and examined this morning with bingo checker awake, alert but seems confused, only able to state name, vague to place and situation denies sob or cough Review of Systems Review of Systems: Yes all other systems are reviewed and are negative Constitutional Constitutional: Denies chills and Denies fever(s) Cardiovascular Cardiovascular: Denies chest pain, Denies palpitations and Denies dyspnea Respiratory Respiratory: Denies cough and Denies dyspnea Gastrointestinal Gastrointestinal: Denies abdominal pain, Denies nausea and Denies vomiting Neurologic Neurologic: Reports confusion Psychiatric Psychiatric: Reports confusion Endocrine Endocrine: Denies palpitations Physical Exam Vital Signs: Vital Signs: Last Vital Signs Temp 98.9 F 09/05/21 11:27 Pulse 74 09/05/21 11:27 Resp 20 09/05/21 11:27 BP 160/80 H 09/05/21 11:27 Pulse Ox 94 09/05/21 11:27 BMI result Body Mass Index 29.9 Const: General: cooperative, comfortable, alert, awake and confusion Nutritional Appearance: overweight Orientation/consciousness: confusion Resp: Other: scattered wheezing, improved from yesterday Effort & Inspection: normal respiratory effort, able to speak in complete sentences and no cough Cardio: Rate: regular rate Heart sounds: S1 normal heart sound present and S2 normal heart sound present GI: Inspection: No distended Palpation (GI): Soft to palpation and nontender Neuro: Other: able to move all 4 extremities spontaneously; no focal deficits appreciated General: confusion Extrem: General: Yes no pedal edema Objective Data Active Medications Acetaminophen (Acetaminophen 325 Mg Tablet) 650 mg PO Q6H PRN PRN Reason: Pain, Mild (Pain Scale 1-3) Last Admin: 09/03/21 17:19 Dose: 650 mg Documented by: NAYELI Albuterol/Ipratropium (Albuterol/Iprat 2.5/0.5mg 3 Ml Ampul.Neb) 3 ml INHALE RQ4H PRN PRN Reason: Shortness of Breath/Wheezing Last Admin: 09/05/21 01:19 Dose: 3 ml Documented by: YVAN Amlodipine Besylate (Amlodipine Besylate 5 Mg Tablet) 5 mg PO BID [facility]; Protocol Last Admin: 09/05/21 08:33 Dose: 5 mg Documented by: CHANDU Apixaban (Apixaban 5 Mg Tablet) 10 mg PO BID [facility] Stop: 09/11/21 09:01 Last Admin: 09/05/21 08:32 Dose: 10 mg Documented by: CHANDU Atorvastatin Calcium (Atorvastatin Calcium 40 Mg Tablet) 40 mg PO BEDTIME [facility] Last Admin: 09/04/21 20:55 Dose: 40 mg Documented by: RUBI Cyanocobalamin (Cyanocobalamin (Vitamin B-12) 1,000 Mcg Tablet) 1,000 mcg PO DA ANJELICA [facility] Last Admin: 09/05/21 08:33 Dose: 1,000 mcg Documented by: CHANDU Folic Acid (Folic Acid 1 Mg Tablet) 1 mg PO DAILY [facility] Last Admin: 09/05/21 08:34 Dose: 1 mg Documented by: CHANDU Gabapentin (Gabapentin 600 Mg Tablet) 600 mg PO BID [facility] Last Admin: 09/05/21 08:34 Dose: 600 mg Documented by: CHANDU Vancomycin HCl 1,000 mg/ (Sodium Chloride) 270 mls @ 270 mls/hr IV Q12H [facility] Last Infusion: 09/05/21 11:49 Dose: 0 mls/hr Documented by: CHANDU Lisinopril (Lisinopril 40 Mg Tablet) 40 mg PO DAILY [facility]; Protocol Last Admin: 09/05/21 08:32 Dose: 40 mg Documented by: CHANDU Melatonin (Melatonin 3 Mg Tablet) 6 mg PO BEDTIME PRN PRN Reason: Insomnia Last Admin: 09/05/21 02:27 Dose: 6 mg Documented by: CHADD Methylprednisolone Sodium Succinate (Methylprednisolone Sod Succ 125 Mg/2 Ml Vi al) 60 mg IVPUSH Q8H [facility] Last Admin: 09/05/21 08:31 Dose: 60 mg Documented by: CHANDU Metoprolol Succinate (Metoprolol Succinate Er 25 Mg Tab.Er.24h) 25 mg PO DAILY [facility]; Protocol Last Admin: 09/05/21 08:33 Dose: 25 mg Documented by: CHANDU Morphine Sulfate (Morphine Sulfate 2 Mg/Ml Cartridge) 1 mg IVPUSH Q4H PRN; Protocol PRN Reason: Shortness of Breath Last Admin: 09/03/21 17:17 Dose: 1 mg Documented by: MADDENTrent Naltrexone HCl (Naltrexone Hcl 50 Mg Tablet) 50 mg PO DAILY [facility] Last Admin: 09/05/21 08:33 Dose: 50 mg Documented by: CHANDU Olanzapine (Olanzapine 10 Mg Tablet) 20 mg PO BEDTIME [facility] Last Admin: 09/04/21 20:55 Dose: 20 mg Documented by: RUBI Omeprazole (Omeprazole 20 Mg Capsule.Dr) 20 mg PO DAILY [facility] Last Admin: 09/05/21 08:32 Dose: 20 mg Documented by: CHANDU Pharmacy Consult (Consult Rx Vancomycin Dosing) 1 each MISCELLANE DAILY PRN PRN Reason: Consult order Phenytoin (Phenytoin Chewable 50 Mg Tab.Chew) 50 mg PO BID [facility] Last Admin: 09/05/21 08:33 Dose: 50 mg Documented by: CHANDU Senna (Sennosides 8.6 Mg Tablet) 17.2 mg PO BEDTIME PRN PRN Reason: Constipation Sertraline HCl (Sertraline Hcl 25 Mg Tablet) 25 mg PO DAILY [facility] Last Admin: 09/05/21 08:33 Dose: 25 mg Documented by: CHANDU Sodium Chloride (0.9 % Sodium Chloride Flush 3 Ml Syringe) 3 ml IVFLUSH QSHIFT [facility] Last Admin: 09/05/21 08:31 Dose: 3 ml Documented by: CHANDU Spironolactone (Spironolactone 25 Mg Tablet) 50 mg PO DAILY [facility]; Protocol Last Admin: 09/05/21 08:32 Dose: 50 mg Documented by: CHANDU Tamsulosin HCl (Tamsulosin Hcl 0.4 Mg Capsule) 0.4 mg PO DAILY [facility] Last Admin: 09/05/21 08:33 Dose: 0.4 mg Documented by: CHANDU Thiamine HCl (Thiamine Hcl 100 Mg Tablet) 100 mg PO DAILY [facility] Last Admin: 09/05/21 08:33 Dose: 100 mg Documented by: CHANDU Tiotropium [place] (Tiotropium [place] 18 Mcg Cap.W.Dev) 1 puff INHALE RDAILY [facility] Last Admin: 09/05/21 07:15 Dose: 1 puff Documented by: JON Vitamin D (Cholecalciferol (Vitamin D3) 25 Mcg Tablet) 50 mcg PO DAILY [facility] Last Admin: 09/05/21 08:31 Dose: 50 mcg Documented by: CHANDU Labs CBC & Chem 7: 09/03/21 06:14 09/05/21 07:37 Labs: Laboratory Results - last 24 hr 09/04/21 09/05/21 21:01 07:37 Anion Gap 9 L Estim Creat Clear Calc 107.1 Estimated GFR > 60 Random Glucose 138 H Calcium 8.9 Random Vancomycin 11.2 L Microbiology Microbiology Results: Microbiology 09/02/21 20:20 Blood Culture - Preliminary Blood - Venous No growth after 48 hours. 09/02/21 20:01 Blood Culture - Preliminary Blood - Venous No growth after 48 hours. 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 He is found to meet SIRS criteria, but no definitive source of infection is identified thus far. Toxic/Metabolic encephalopathy likely with underlying etoh dementia possible infectious etiology; other contributing factors including uncontrolled HTN, systemic steroids brain CT with no acute abnormalities family reporting intermittent hallucinations. previous admission with the same does not seem to be back to baseline SIRS no fever since 09/03 seen by ID, feels that fever likely r/t DVT zosyn d/c; covered with vanco empirically for possible cellulitis component. will change to doxy to complete 5 days abx no meningeal signs present currently blood cultures negative x 48 hours. lactic acid wnl HTN Urgency BP improving dose of norvasc increased this admission continue lisinopril, metoprolol monitor BP closely COPD exacerbation less wheezing continue breathing treatments titrate solumedrol down to bid LLE DVT initially treated with lovenox, changed to Eliquis 10 mg bid x 7 days then 5 bid HLD continue statin History of dysphagia:? Patient reports he is on soft diet.? Seen by speech, rec ground/[facility] altered diet Aspiration precautions. h/o seizure disorder continue home gabapentin, phenytoin Mood Continue home sertraline/olanzapine History of BPH: Continue home Flomax Full Code DVT pptx, Kelvin attending - dr. Mckeon requires ongoing inpatient hospitalization due to DVT, encephalopathy, fever Quality Stroke Does the patient have a stroke diagnosis?: No VTE Prior VTE?: No VTE Risk Level:: Medical - moderate - high VTE Device Contraindication: Treatment Not Indicated VTE Drug Contraindication: N/A - Med Ordered
[2021-09-05] MEDS: Doxycycline Hyclate 100 MG in 0.9 % Sodium Chloride 250 ML 166.67 MG IV (14:00)
[2021-09-05] MEDS: OLANZapine 10 MG TABLET 20 MG PO (20:46)
[2021-09-05] MEDS: Atorvastatin Calcium 40 MG TABLET PO (20:47)
[2021-09-06] VITALS (7 sets, daily range): BP systolic 150–193; BP diastolic 77–88; PULSE 57–65; RESP 14–19; TEMP 36.2–37; O2SAT 94–97
[2021-09-06] MEDS: Doxycycline Hyclate 100 MG in 0.9 % Sodium Chloride 250 ML 166.67 MG IV ×2 (00:54→12:44)
[2021-09-06 06:32] LABS: Hematocrit 40.3 % (42.0-52.0); Hemoglobin 13.1 g/dl (14.0-18.0); Mean Corpuscular HGB Conc 32.5 g/dl (31.0-36.0); Mean Corpuscular Hemoglobin 29.8 pg (27.0-33.0); Mean Corpuscular Volume 91.8 fL (80.0-98.0); Mean Platelet Volume 9.3 fL (9.4-12.4); Platelet Count 202 X10*3/uL (160-400); Red Blood Count 4.39 X10*6/uL (4.60-5.80); Red Cell Distribution Width 13.7 % (11.0-16.0); White Blood Count 4.4 X10*3/uL (4.8-10.8)
[2021-09-06 07:26] LABS: Anion Gap 15 (12-20); Blood Urea Nitrogen 11 mg/dL (9-16); Carbon Dioxide 21 mmol/L (22-29); Chloride 110 mmol/L (96-108); Creatinine Clr Calc Pharmacy 121.5; Estimated Glomerular Filt Rate > 60; Glucose Random 123 mg/dL (60-115); Potassium 5.1 mmol/L (3.3-5.1); Sodium 141 mmol/L (135-145)
[2021-09-06] MEDS: 0.9 % Sodium Chloride Flush 3 ML SYRINGE IVFLUSH ×2 (08:59→20:00)
[2021-09-06] MEDS: Thiamine HCL 100 MG TABLET PO (08:59)
[2021-09-06] MEDS: Apixaban 5 MG TABLET 10 MG PO ×2 (08:59→19:59)
[2021-09-06] MEDS: Sertraline HCL 25 MG TABLET PO (08:59)
[2021-09-06] MEDS: Phenytoin Chewable 50 MG TAB.CHEW PO ×2 (08:59→19:59)
[2021-09-06] MEDS: Cholecalciferol (Vitamin D3) 25 MCG TABLET 50 MCG PO (08:59)
[2021-09-06] MEDS: Spironolactone 25 MG TABLET 50 MG PO (09:00)
[2021-09-06] MEDS: Naltrexone HCl 50 MG TABLET PO (09:00)
[2021-09-06] MEDS: amLODIPine Besylate 5 MG TABLET PO ×2 (09:00→19:59)
[2021-09-06] MEDS: Gabapentin 600 MG TABLET PO ×2 (09:00→19:59)
[2021-09-06] MEDS: Metoprolol Succinate ER 25 MG TAB.ER.24H PO (09:00)
[2021-09-06] MEDS: lisinopriL 40 MG TABLET PO (09:00)
[2021-09-06] MEDS: Tamsulosin HCL 0.4 MG CAPSULE PO (09:01)
[2021-09-06] MEDS: Omeprazole 20 MG CAPSULE.DR PO (09:01)
[2021-09-06] MEDS: methylPREDNISolone Sod Succ 125 MG/2 ML VIAL 60 MG IVPUSH ×2 (09:01→19:59)
[2021-09-06] MEDS: Cyanocobalamin (Vitamin B-12) 1,000 MCG TABLET 1000 MCG PO (09:01)
[2021-09-06] MEDS: Folic Acid 1 MG TABLET PO (09:01)
[2021-09-06 10:07] LABS: Vancomycin Trough 5.4 mcg/mL (10.0-20.0)
--- NOTE | 2021-09-06 12:27 | P.PNIM_ITS ---
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, only able to state name, vague to place and situation denies sob or cough <Starr Gilmore NP - Last Filed: 09/06/21 13:03> Physical Exam Vital Signs: Vital Signs: Last Vital Signs Temp 98.2 F 09/06/21 11:30 Pulse 61 09/06/21 11:30 Resp 18 09/06/21 11:30 BP 150/79 H 09/06/21 11:30 Pulse Ox 96 09/06/21 11:30 BMI result Body Mass Index 29.9 <Starr Gilmore NP - Last Filed: 09/06/21 13:03> Appearing in no acute distress lung sounds are clear to auscultation heart regular rate rhythm, clear S1, S2 positive bowel sounds, abdomen is soft, nontender neuro patient is alert x3, no focal deficits <Starr Gilmore NP - Last Filed: 09/06/21 13:03> Objective Data Active Medications Acetaminophen (Acetaminophen 325 Mg Tablet) 650 mg PO Q6H PRN PRN Reason: Pain, Mild (Pain Scale 1-3) Last Admin: 09/03/21 17:19 Dose: 650 mg Documented by: YEHUDADENTrent Albuterol/Ipratropium (Albuterol/Iprat 2.5/0.5mg 3 Ml Ampul.Neb) 3 ml INHALE RQ4H PRN PRN Reason: Shortness of Breath/Wheezing Last Admin: 09/05/21 01:19 Dose: 3 ml Documented by: YVAN Amlodipine Besylate (Amlodipine Besylate 5 Mg Tablet) 5 mg PO BID MILAGROS; Protocol Last Admin: 09/06/21 09:00 Dose: 5 mg Documented by: JOANN Apixaban (Apixaban 5 Mg Tablet) 10 mg PO BID MILAGROS Stop: 09/11/21 09:01 Last Admin: 09/06/21 08:59 Dose: 10 mg Documented by: JOANN Atorvastatin Calcium (Atorvastatin Calcium 40 Mg Tablet) 40 mg PO BEDTIME FORMERLY [facility], [facility] Last Admin: 09/05/21 20:47 Dose: 40 mg Documented by: MITCHELL Cyanocobalamin (Cyanocobalamin (Vitamin B-12) 1,000 Mcg Tablet) 1,000 mcg PO DAILY FORMERLY [facility], [facility] Last Admin: 09/06/21 09:01 Dose: 1,000 mcg Documented by: JIMMIE-RENA Folic Acid (Folic Acid 1 Mg Tablet) 1 mg PO DAILY MILAGROS Last Admin: 09/06/21 09:01 Dose: 1 mg Documented by: JOANN Gabapentin (Gabapentin 600 Mg Tablet) 600 mg PO BID [facility], [facility] Last Admin: 09/06/21 09:00 Dose: 600 mg Documented by: JOANN Doxycycline Hyclate 100 mg/ (Sodium Chloride) 250 mls @ 166.67 mls/hr IV Q12H FOR[facility], [facility] Last Infusion: 09/06/21 02:33 Dose: 0 mls/hr Documented by: MITCHELL Lisinopril (Lisinopril 40 Mg Tablet) 40 mg PO DAILY FOR[facility]LY [facility], [facility]; Protocol Last Admin: 09/06/21 09:00 Dose: 40 mg Documented by: JOANN Melatonin (Melatonin 3 Mg Tablet) 6 mg PO BEDTIME PRN PRN Reason: Insomnia Last Admin: 09/05/21 20:47 Dose: 6 mg Documented by: MITCHELL Methylprednisolone Sodium Succinate (Methylprednisolone Sod Succ 125 Mg/2 Ml Vial) 60 mg IVPUSH BID [facility], [facility] Last Admin: 09/06/21 09:01 Dose: 60 mg Documented by: JOANN Metoprolol Succinate (Metoprolol Succinate Er 25 Mg Tab.Er.24h) 25 mg PO DAILY [facility], [facility]; Protocol Last Admin: 09/06/21 09:00 Dose: 25 mg Documented by: JOANN Morphine Sulfate (Morphine Sulfate 2 Mg/Ml Cartridge) 1 mg IVPUSH Q4H PRN; Protocol PRN Reason: Shortness of Breath Last Admin: 09/03/21 17:17 Dose: 1 mg Documented by: MADDENL Naltrexone HCl (Naltrexone Hcl 50 Mg Tablet) 50 mg PO DAILY [facility], [facility] Last Admin: 09/06/21 09:00 Dose: 50 mg Documented by: JOANN Olanzapine (Olanzapine 10 Mg Tablet) 20 mg PO BEDTIME [facility], [facility] Last Admin: 09/05/21 20:46 Dose: 20 mg Documented by: MITCHELL Omeprazole (Omeprazole 20 Mg Capsule.Dr) 20 mg PO DAILY [facility], [facility] Last Admin: 09/06/21 09:01 Dose: 20 mg Documented by: JOANN Pharmacy Consult (Consult Rx Vancomycin Dosing) 1 each MISCELLANE DAILY PRN PRN Reason: Consult order Phenytoin (Phenytoin Chewable 50 Mg Tab.Chew) 50 mg PO BID [facility], [facility] Last Admin: 09/06/21 08:59 Dose: 50 mg Documented by: JOANN Senna (Sennosides 8.6 Mg Tablet) 17.2 mg PO BEDTIME PRN PRN Reason: Constipation Sertraline HCl (Sertraline Hcl 25 Mg Tablet) 25 mg PO DAILY FOR[facility], [facility] Last Admin: 09/06/21 08:59 Dose: 25 mg Documented by: JOANN Sodium Chloride (0.9 % Sodium Chloride Flush 3 Ml Syringe) 3 ml IVFLUSH QSHIFT FOR[facility], [facility] Last Admin: 09/06/21 08:59 Dose: 3 ml Documented by: JOANN Spironolactone (Spironolactone 25 Mg Tablet) 50 mg PO DAILY [facility], [facility]; Protocol Last Admin: 09/06/21 09:00 Dose: 50 mg Documented by: JOANN Tamsulosin HCl (Tamsulosin Hcl 0.4 Mg Capsule) 0.4 mg PO DAILY [facility], [facility] Last Admin: 09/06/21 09:01 Dose: 0.4 mg Documented by: JOANN Thiamine HCl (Thiamine Hcl 100 Mg Tablet) 100 mg PO DAILY [facility], [facility] Last Admin: 09/06/21 08:59 Dose: 100 mg Documented by: JOANN Tiotropium [place] (Tiotropium [place] 18 Mcg Cap.W.Dev) 1 puff INHALE RDAILY [facility], [facility] Last Admin: 09/06/21 07:11 Dose: 1 puff Documented by: JEANIE Vitamin D (Cholecalciferol (Vitamin D3) 25 Mcg Tablet) 50 mcg PO DAILY [facility], [facility] Last Admin: 09/06/21 08:59 Dose: 25 mcg Documented by: JOANN <Starr Gilmore HAND RIVETER - Last Filed: 09/06/21 13:03> Labs CBC & Chem 7: : 09/06/21 06:17 09/06/21 06:17 <Starr Gilmore NP - Last Filed: 09/06/21 13:03> Labs: Laboratory Results - last 24 hr 09/06/21 09/06/21 09/06/21 06:17 06:17 08:57 MCV 91.8 MCH 29.8 MCHC 32.5 RDW 13.7 Plt Count 202 MPV 9.3 L Absolute Nucleated RBC 0.000 Nucleated RBC % (auto) 0.0 Anion Gap 15 Estim Creat Clear Calc 121.5 Estimated GFR > 60 Random Glucose 123 H Calcium 9.0 Vancomycin Trough 5.4 L <Starr Gilmore HAND RIVETER - Last Filed: 09/06/21 13:03> Assessment and Plan (1) DVT of deep femoral vein: Status: Acute <Starr Gilmore NP - Last Filed: 09/06/21 13:03> (2) Hypertensive urgency: Status: Acute <Starr Gilmore HAND RIVETER - Last Filed: 09/06/21 13:03> (3) Confusion: Status: Acute <Starr Gilmore NP - Last Filed: 09/06/21 13:03> Plan This is a 65 year old male with a PMH of alcohol abuse, CMP, Cirrhosis, seizure d/o, 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 He is found to meet SIRS criteria, but no definitive source of infection is identified thus far. Toxic/Metabolic encephalopathy likely with underlying etoh dementia possible infectious etiology; other contributing factors including uncontrolled HTN, systemic steroids brain CT with no acute abnormalities family reporting intermittent hallucinations. previous admission with the same does not seem to be back to baseline SIRS no fever since 09/03 seen by ID, feels that fever likely r/t DVT zosyn d/c; covered with vanco empirically for possible cellulitis component. will change to doxy to complete 5 days abx no meningeal signs present currently blood cultures negative x 48 hours. lactic acid wnl HTN Urgency BP improving dose of norvasc increased this admission continue lisinopril, metoprolol monitor BP closely COPD exacerbation less wheezing continue breathing treatments titrate solumedrol down to bid LLE DVT initially treated with lovenox, changed to Eliquis 10 mg bid x 7 days then 5 bid HLD continue statin History of dysphagia:? Patient reports he is on soft diet.? Seen by speech, rec ground/[facility] altered diet Aspiration precautions. h/o seizure disorder continue home gabapentin, phenytoin Mood Continue home sertraline/olanzapine History of BPH: Continue home Flomax Full Code DVT pptx, Eliquis attending - dr. Abdullahi requires ongoing inpatient hospitalization due to DVT, encephalopathy, fever <Starr Gilmore NP - Last Filed: 09/06/21 13:03> Quality Stroke Does the patient have a stroke diagnosis?: No <Starr Gilmore NP - Last Filed: 09/06/21 13:03> VTE Prior VTE?: No <Starr Gilmore NP - Last Filed: 09/06/21 13:03> VTE Risk Level:: Medical - moderate - high <Starr Gilmore NP - Last Filed: 09/06/21 13:03> VTE Device Contraindication: Treatment Not Indicated <Starr Gilmore NP - Last Filed: 09/06/21 13:03 > VTE Drug Contraindication: N/A - Med Ordered <Starr Gilmore NP - Last Filed: 09/06/21 13:03>
[2021-09-06] MEDS: OLANZapine 10 MG TABLET 20 MG PO (19:59)
[2021-09-06] MEDS: Atorvastatin Calcium 40 MG TABLET PO (20:00)
[2021-09-07] VITALS (7 sets, daily range): BP systolic 150–199; BP diastolic 69–95; PULSE 52–70; RESP 14–20; TEMP 36.4–37.1; O2SAT 92–95
[2021-09-07] MEDS: Doxycycline Hyclate 100 MG in 0.9 % Sodium Chloride 250 ML 166.67 MG IV (01:17)
[2021-09-07] MEDS: Morphine Sulfate 2 MG/ML CARTRIDGE 1 MG IVPUSH (03:40)
[2021-09-07] MEDS: traZODone HCL 25 MG HALFTAB PO (03:57)
[2021-09-07] MEDS: Cholecalciferol (Vitamin D3) 25 MCG TABLET 50 MCG PO (09:09)
[2021-09-07] MEDS: Thiamine HCL 100 MG TABLET PO (09:09)
[2021-09-07] MEDS: amLODIPine Besylate 5 MG TABLET PO ×2 (09:09→16:32)
[2021-09-07] MEDS: Naltrexone HCl 50 MG TABLET PO (09:09)
[2021-09-07] MEDS: lisinopriL 40 MG TABLET PO (09:09)
[2021-09-07] MEDS: Spironolactone 25 MG TABLET 50 MG PO (09:09)
[2021-09-07] MEDS: Cyanocobalamin (Vitamin B-12) 1,000 MCG TABLET 1000 MCG PO (09:10)
[2021-09-07] MEDS: Phenytoin Chewable 50 MG TAB.CHEW PO ×2 (09:10→21:39)
[2021-09-07] MEDS: Sertraline HCL 25 MG TABLET PO (09:10)
[2021-09-07] MEDS: methylPREDNISolone Sod Succ 125 MG/2 ML VIAL 60 MG IVPUSH (09:10)
[2021-09-07] MEDS: Gabapentin 600 MG TABLET PO ×2 (09:10→21:39)
[2021-09-07] MEDS: Metoprolol Succinate ER 25 MG TAB.ER.24H PO (09:10)
[2021-09-07] MEDS: Omeprazole 20 MG CAPSULE.DR PO (09:10)
[2021-09-07] MEDS: Folic Acid 1 MG TABLET PO (09:10)
[2021-09-07] MEDS: Apixaban 5 MG TABLET 10 MG PO ×2 (09:10→21:39)
[2021-09-07] MEDS: Tamsulosin HCL 0.4 MG CAPSULE PO (09:10)
[2021-09-07] MEDS: 0.9 % Sodium Chloride Flush 3 ML SYRINGE IVFLUSH (09:11)
--- NOTE | 2021-09-07 14:10 | P.PNIM_ITS ---
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, alert but seems confused, only able to state name, vague to place and situation denies sob or cough Physical Exam Vital Signs: Vital Signs: Last Vital Signs Temp 98.3 F 09/07/21 11:29 Pulse 64 09/07/21 11:29 Resp 20 09/07/21 11:29 BP 150/78 H 09/07/21 11:29 Pulse Ox 94 09/07/21 11:29 BMI result Body Mass Index 29.9 Appearing in no acute distress lung sounds are clear to auscultation heart regular rate rhythm, clear S1, S2 positive bowel sounds, abdomen is soft, nontender neuro patient is alert, somewhat forgetful Objective Data Active Medications Acetaminophen (Acetaminophen 325 Mg Tablet) 650 mg PO Q6H PRN PRN Reason: Pain, Mild (Pain Scale 1-3) Last Admin: 09/03/21 17:19 Dose: 650 mg Documented by: YEHUDADENTrent Albuterol/Ipratropium (Albuterol/Iprat 2.5/0.5mg 3 Ml Ampul.Neb) 3 ml INHALE RQ4H PRN PRN Reason: Shortness of Breath/Wheezing Last Admin: 09/05/21 01:19 Dose: 3 ml Documented by: YVAN Amlodipine Besylate (Amlodipine Besylate 5 Mg Tablet) 5 mg PO BID ON LICENSE OF [facility]; Protocol Last Admin: 09/07/21 09:09 Dose: 5 mg Documented by: JOANN Apixaban (Apixaban 5 Mg Tablet) 10 mg PO BID ON LICENSE OF [facility] Stop: 09/11/21 09:01 Last Admin: 09/07/21 09:10 Dose: 10 mg Documented by: JOANN Atorvastatin Calcium (Atorvastatin Calcium 40 Mg Tablet) 40 mg PO BEDTIME ON LICENSE OF [facility] Last Admin: 09/06/21 20:00 Dose: 40 mg Documented by: VENTURA Cyanocobalamin (Cyanocobalamin (Vitamin B-12) 1,000 Mcg Tablet) 1,000 mcg PO DAILY ON LICENSE OF [facility] Last Admin: 09/07/21 09:10 Dose: 1,000 mcg Documented by: JOANN Folic Acid (Folic Acid 1 Mg Tablet) 1 mg PO DAILY ON LICENSE OF [facility] Last Admin: 09/07/21 09:10 Dose: 1 mg Documented by: JOANN Gabapentin (Gabapentin 600 Mg Tablet) 600 mg PO BID ON LICENSE OF [facility] Last Admin: 09/07/21 09:10 Dose: 600 mg Documented by: JOANN Doxycycline Hyclate 100 mg/ (Sodium Chloride) 250 mls @ 166.67 mls/hr IV Q12H ON LICENSE OF [facility] Last Infusion: 09/07/21 02:48 Dose: 0 mls/hr Documented by: VENTURA Lisinopril (Lisinopril 40 Mg Tablet) 40 mg PO DAILY ON LICENSE OF [facility]; Protocol Last Admin: 09/07/21 09:09 Dose: 40 mg Documented by: JOANN Melatonin (Melatonin 3 Mg Tablet) 6 mg PO BEDTIME PRN PRN Reason: Insomnia Last Admin: 09/05/21 20:47 Dose: 6 mg Documented by: MITCHELL Methylprednisolone Sodium Succinate (Methylprednisolone Sod Succ 125 Mg/2 Ml Vial) 60 mg IVPUSH BID ON LICENSE OF [facility] Last Admin: 09/07/21 09:10 Dose: 60 mg Documented by: JOANN Metoprolol Succinate (Metoprolol Succinate Er 25 Mg Tab.Er.24h) 25 mg PO DAILY ON LICENSE OF [facility]; Protocol Last Admin: 09/07/21 09:10 Dose: 25 mg Documented by: JOANN Morphine Sulfate (Morphine Sulfate 2 Mg/Ml Cartridge) 1 mg IVPUSH Q4H PRN; Protocol PRN Reason: Shortness of Breath Last Admin: 09/07/21 03:40 Dose: 1 mg Documented by: VENTURA Naltrexone HCl (Naltrexone Hcl 50 Mg Tablet) 50 mg PO DAILY ON LICENSE OF [facility] Last Admin: 09/07/21 09:09 Dose: 50 mg Documented by: JOANN Olanzapine (Olanzapine 10 Mg Tablet) 20 mg PO BEDTIME ON LICENSE OF [facility] Last Admin: 09/06/21 19:59 Dose: 20 mg Documented by: VENTURA Omeprazole (Omeprazole 20 Mg Capsule.Dr) 20 mg PO DAILY ON LICENSE OF [facility] Last Admin: 09/07/21 09:10 Dose: 20 mg Documented by: JOANN Pharmacy Consult (Consult Rx Vancomycin Dosing) 1 each MISCELLANE DAILY PRN PRN Reason: Consult order Phenytoin (Phenytoin Chewable 50 Mg Tab.Chew) 50 mg PO BID ON LICENSE OF [facility] Last Admin: 09/07/21 09:10 Dose: 50 mg Documented by: JONAN Senna (Sennosides 8.6 Mg Tablet) 17.2 mg PO BEDTIME PRN PRN Reason: Constipation Sertraline HCl (Sertraline Hcl 25 Mg Tablet) 25 mg PO DAILY ON LICENSE OF [facility] Last Admin: 09/07/21 09:10 Dose: 25 mg Documented by: JOANN Sodium Chloride (0.9 % Sodium Chloride Flush 3 Ml Syringe) 3 ml IVFLUSH QSHIFT ON LICENSE OF [facility] Last Admin: 09/07/21 09:11 Dose: 3 ml Documented by: JOANN Spironolactone (Spironolactone 25 Mg Tablet) 50 mg PO DAILY ON LICENSE OF [facility]; Protocol Last Admin: 09/07/21 09:09 Dose: 50 mg Documented by: JOANN Tamsulosin HCl (Tamsulosin Hcl 0.4 Mg Capsule) 0.4 mg PO DAILY ON LICENSE OF [facility] Last Admin: 09/07/21 09:10 Dose: 0.4 mg Documented by: JOANN Thiamine HCl (Thiamine Hcl 100 Mg Tablet) 100 mg PO DAILY ON LICENSE OF [facility] Last Admin: 09/07/21 09:09 Dose: 100 mg Documented by: JOANN Tiotropium [place] (Tiotropium [place] 18 Mcg Cap.W.Dev) 1 puff INHALE RDAILY ON LICENSE OF [facility] Last Admin: 09/07/21 08:05 Dose: 1 puff Documented by: JEANIE Vitamin D (Cholecalciferol (Vitamin D3) 25 Mcg Tablet) 50 mcg PO DAILY ON LICENSE OF [facility] Last Admin: 09/07/21 09:09 Dose: 50 mcg Documented by: JOANN Labs CBC & Chem 7: 09/06/21 06:17 09/06/21 06:17 Assessment and Plan (1) DVT of deep femoral vein: Status: Acute (2) Hypertensive urgency: Status: Acute (3) Confusion: Status: Acute Plan This is a 65 year old male with a PMH of alcohol abuse, CMP, Cirrhosis, seizure d/o, 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 He is found to meet SIRS criteria, but no definitive source of infection is identified thus far. Toxic/Metabolic encephalopathy likely with underlying etoh dementia no infectious etiology; other contributing factors including uncontrolled HTN, systemic steroids brain CT with no acute abnormalities Back to baseline SIRS. Resolved no fever since 09/03 seen by ID, feels that fever likely r/t DVT zosyn d/c; covered with vanco empirically for possible cellulitis component. will change to doxy to complete 5 days abx no meningeal signs present currently blood cultures negative x 48 hours. lactic acid wnl HTN Urgency BP improving dose of norvasc increased this admission continue lisinopril, metoprolol monitor BP closely COPD exacerbation. Resolved continue breathing treatments stop steroids LLE DVT initially treated with lovenox, changed to Eliquis 10 mg bid x 7 days then 5 bid HLD continue statin History of dysphagia:? Patient reports he is on soft diet.? [facility] speech[facility] Aspiration precautions. h/o seizure disorder continue home gabapentin, phenytoin Mood Continue home sertraline/olanzapine History of BPH: Continue home Flomax Full Code DVT pptx, [place] attending - dr. Abdullahi requires ongoing inpatient hospitalization due to DVT, encephalopathy, fever Quality Stroke Does the patient have a stroke diagnosis?: No VTE Prior VTE?: No VTE Risk Level:: Medical - moderate - high VTE Device Contraindication: Treatment Not Indicated VTE Drug Contraindication: N/A - Med Ordered
[2021-09-07] MEDS: Atorvastatin Calcium 40 MG TABLET PO (21:39)
[2021-09-07] MEDS: OLANZapine 10 MG TABLET 20 MG PO (21:39)
[2021-09-08 04:00] VITALS: BP 141/69; PULSE 56; RESP 18; O2SAT 94
[2021-09-08 08:00] VITALS: BP 149/79; PULSE 62; RESP 20; TEMP 37.3; O2SAT 95
[2021-09-08 08:08] VITALS: PULSE 62; RESP 20; O2SAT 96
[2021-09-08] MEDS: Cholecalciferol (Vitamin D3) 25 MCG TABLET 50 MCG PO (08:27)
[2021-09-08] MEDS: Tamsulosin HCL 0.4 MG CAPSULE PO (08:27)
[2021-09-08] MEDS: Apixaban 5 MG TABLET 10 MG PO (08:28)
[2021-09-08] MEDS: Phenytoin Chewable 50 MG TAB.CHEW PO (08:28)
[2021-09-08] MEDS: Omeprazole 20 MG CAPSULE.DR PO (08:28)
[2021-09-08] MEDS: Naltrexone HCl 50 MG TABLET PO (08:28)
[2021-09-08] MEDS: Sertraline HCL 25 MG TABLET PO (08:28)
[2021-09-08] MEDS: Thiamine HCL 100 MG TABLET PO (08:29)
[2021-09-08] MEDS: Metoprolol Succinate ER 25 MG TAB.ER.24H PO (08:29)
[2021-09-08] MEDS: 0.9 % Sodium Chloride Flush 3 ML SYRINGE IVFLUSH (08:30)
[2021-09-08] MEDS: Gabapentin 600 MG TABLET PO (08:30)
[2021-09-08] MEDS: Folic Acid 1 MG TABLET PO (08:30)
[2021-09-08] MEDS: Cyanocobalamin (Vitamin B-12) 1,000 MCG TABLET 1000 MCG PO (08:30)
[2021-09-08] MEDS: amLODIPine Besylate 10 MG TABLET PO (08:30)
[2021-09-08 10:56] VITALS: BP 121/64; PULSE 60; RESP 20; TEMP 36.3; O2SAT 96
--- NOTE | 2021-09-08 13:09 | PM.DS ---
DS: Providers Provider Date of Service: 09/08/21 Date of admission: 09/02/21 22:00 Primary care physician: Lori Hernandez MD Consults: 09/02/21 23:15 Consult to Infectious Diseases Routine Consulting Provider: Marcy Wolf Reason for consultation: Fever; question cellulitis 09/03/21 18:25 Consult for Sitter Routine Reason for consultation: agitation Attending physician on discharge: Sonido Abdullahi Discharging clinician: Starr Gilmore DS: Diagnosis Discharge Diagnosis (1) DVT of deep femoral vein: Status: Acute (2) Hypertensive urgency: Status: Acute (3) Confusion: Status: Acute DS: Summary Hospital Course Hospital Course: HP as per admitting provider 65-year-old male with a past medical history of hypertension, hyperlipidemia, cardiomyopathy, history of seizures; lives alone at home presented to the hospital with a chief complaint of altered mental status.?Spoke to the patient's healthcare proxy Ashwin who mentioned that when he saw him for in the morning patient was doing fine; later on went away in [place] when patient was noted to be confused and was shaking; subsequently Ashwin went to check on him he was not himself; onset AFib questions and was able to walk with the help of a walker; complaint of chest discomfort and cough; subsequently EMS was called in who noted the patient was febrile; after that he was brought into the hospital for further evaluation.?At the time of my interview patient is an alert and awake but mildly drowsy; confused; oriented to self; reports pain in his left leg.? Denies any cough or sputum production.?Denies any nausea vomiting or diarrhea.? Denies any abdominal discomfort.?Review of all other systems is negative except mentioned above ER course: Per ER team patient on presentation noted to be confused/altered; not giving much history initially; complaining of the pain in the left leg; venous duplex was done which showed DVT.? CT of the chest was done which showed no evidence of pneumonia or pulmonary embolism.?ER team also mentioned that an initially concern for cellulitis of the dorsum of the left foot.? Patient was febrile to 102 F.? Empirically covered with antibiotics.? CT head was done which showed no acute intracranial process . Toxic/Metabolic encephalopathy, likely with underlying etoh dementia. Seems to be at baseline at this time no infectious etiology; other contributing factors including uncontrolled HTN, systemic steroids brain CT with no acute abnormalities SIRS. Resolved no fever since 09/03 seen by ID, feels that fever likely r/t DVT zosyn d/c; covered with vanco empirically for possible cellulitis component. will change to doxy to complete 5 days abx no meningeal signs present currently blood cultures negative x 48 hours. lactic acid wnl HTN Urgency BP improving dose of norvasc increased to 10mg daily continue lisinopril, metoprolol monitor BP closely COPD exacerbation. Resolved continue breathing treatments stop steroids LLE DVT initially treated with lovenox, changed to Eliquis 10 mg bid x 7 day then 5mf twice daily after that Time Spent with Patient Time attestation: Total time spent providing and/or coordinating discharge services: Discharge coordination time: Greater than 30 minutes Quality: Safe Use of Opioids Does Pt have an Active Cancer Diagnosis on the Problem List?: No Quality: Stroke Does the patient have a stroke diagnosis?: No Physical Exam Vital Signs: Vital Signs: Last Vital Signs Temp 97.4 F 09/08/21 10:56 Pulse 60 09/08/21 10:56 Resp 20 09/08/21 10:56 BP 121/64 09/08/21 10:56 Pulse Ox 96 09/08/21 10:56 BMI result Body Mass Index 29.9 Appearing in no acute distress head is normocephalic atraumatic eyes pupils are PERRLA sclera is anicteric mouth throat mucous membranes are intact and moist neck is supple no lymphadenopathy, no JVD noted lung sounds are clear to auscultation heart regular rate rhythm, clear S1, S2 positive bowel sounds, abdomen is soft, nontender neuro patient is alert, forgetful DS: Data Data Completed and Pending Completed studies during hospitalization [Text1]: Procedures Detoxification Services for Substance Abuse Treatment (06/23/21) Discharge Plan Discharge Anticipated Discharge Date/Time: 09/08/21 12:19 Patient Disposition: Home, Self-Care Discharge Diagnosis: Acute toxic metabolic encephalopathy Sirs Hypertensive urgency Referrals: Lori Hernandez MD [Primary Care Provider] - 1 Week Discharge Medications: New amlodipine 10 mg Tablet 10 mg PO DAILY Qty: 30 0RF Protocol: Hold for SBP< HOLD for SBP < : 90 Eliquis 5 mg Tablet 10 mg PO BID Qty: 66 0RF Rx Instructions: take 10 mg twice daily x7 days stop date 09/11/21 then take 5 mg twice daily Continued pantoprazole 20 mg tablet,delayed release (DR/EC) 20 mg PO DAILY 30 Days Qty: 30 3RF Incruse Ellipta 62.5 mcg/actuation blister with device 1 puff inhalation DAILY 0RF cyanocobalamin (vitamin B-12) 1,000 mcg capsule 1,000 mcg PO DAILY Qty: 20 0RF folic acid 1 mg tablet 1 mg PO DAILY Qty: 30 1RF thiamine HCl (vitamin B1) 100 mg tablet 100 mg PO DAILY Qty: 30 1RF olanzapine 20 mg tablet 1 tab PO BEDTIME 0RF melatonin 5 mg tablet 1 tab PO BEDTIME 0RF naltrexone 50 mg tablet 1 tab PO DAILY 0RF sertraline 25 mg tablet 1 tab PO DAILY 0RF metoprolol succinate 25 mg tablet extended release 24 hr 25 mg PO DAILY 0RF atorvastatin 40 mg tablet 40 mg PO BEDTIME 0RF gabapentin 600 mg tablet 600 mg PO BID 0RF tamsulosin 0.4 mg capsule 0.4 mg PO DAILY 0RF cholecalciferol (vitamin D3) 50 mcg (2,000 unit) capsule 50 mcg PO DAILY 0RF phenytoin 50 mg tablet,chewable 50 mg PO BID 0RF Discontinued amlodipine 5 mg tablet 5 mg PO QPM 0RF Protocol: Hold for SBP< HOLD for SBP < : 90 Discharge Orders: Discharge Order (Routine); Ordered 09/08/21 Ordered By: Starr Gilmore Diet: advance to usual diet Activity on Discharge: As tolerated Stand Alone Forms: Patient Portal Discharge page Care Plan Goals: complete resolution of symptoms Health Concerns: Toxic metabolic encephalopathy FABIENNE Hypertensive urgency Sirs Plan of Treatment: follow-up with primary care provider as needed Assessment: See discharge summary
== END 2021-09-08 14:24 | disposition home or self-care (01) | DRG 299 ==
LOC: HO.ED 22:49 → HO.EDOVER 22:51 → HO.IMC 09-03 19:02
PROVIDERS: Family Medicine; Nurse Practitioner Family; Physician Assistant Medical; Admitting Provider Hospitalist; Emergency Provider Internal Medicine; PCP Internal Medicine; Visit Provider Nurse Practitioner Acute Care
DX: I82.412 Acute embolism and thrombosis of left femoral vein (principal); G92.8 Other toxic encephalopathy; I42.9 Cardiomyopathy, unspecified; J44.1 Chronic obstructive pulmonary disease with (acute) exacerbation; R65.10 Systemic inflammatory response syndrome (SIRS) of non-infectious origin without acute organ dysfunction; L03.116 Cellulitis of left lower limb; G40.909 Epilepsy, unspecified, not intractable, without status epilepticus; R13.10 Dysphagia, unspecified; F10.97 Alcohol use, unspecified with alcohol-induced persisting dementia; N40.0 Benign prostatic hyperplasia without lower urinary tract symptoms; I10 Essential (primary) hypertension; E78.5 Hyperlipidemia, unspecified; I16.0 Hypertensive urgency; Z20.822 Contact with and (suspected) exposure to COVID-19; Z79.01 Long term (current) use of anticoagulants; Z79.899 Other long term (current) drug therapy
CPT/HCPCS: 36415; 70450; 71045; 71275; 80048; 80076; 80185; 80202; 81003; 82565; 82947; 83605; 83880; 84484; 85025; 85027; 85610; 85730; 87040; 87502; 87635; 92526; 92610; 93005; 93971; 94640; 96361; 96365; 96375; 99285; 99291; C1758; J0131; J0696; J1650; J1940; J2060; J2270; J2543; J2930; J3370; Q9967

== ENCOUNTER 2021-10-31 20:30 | Emergency (ER) | payer MEDICARE, MEDICAID, SELFPAY ==
--- NOTE | ~2021-10-31 | CT_ITS ---
EXAMINATION: CT ABDOMEN AND PELVIS WITHOUT CONTRAST CLINICAL INFORMATION: Abdominal pain COMPARISON: 06/23/2021 TECHNIQUE: Multidetector volumetric imaging was performed from the superior aspect of the liver through the pubic symphysis. Sagittal and coronal reformatted images were obtained on the technologist's workstation. This CT examination was performed using dose optimization techniques as appropriate, variously including the following: *Automated exposure control *Adjustment of mA and/or kV according to patient size (this includes techniques or standardized protocols for targeted exams where dose is matched to indication/reason for exam; i.e. extremities or head) *Use of iterative reconstruction technique DLP: 710 mGy-cm FINDINGS: LUNG BASES: Right and left basilar atelectasis/early infiltrates. LIVER, GALLBLADDER, AND BILIARY TREE: The liver is normal in size, shape, and attenuation. No focal hepatic lesion or biliary ductal dilatation is present. The gallbladder is unremarkable with no evidence of radiopaque gallstones, gallbladder wall thickening, or obvious pericholecystic inflammatory changes. PANCREAS: Unremarkable. SPLEEN: Unremarkable. ADRENAL GLANDS: Unremarkable. KIDNEYS AND URETERS: Mild fullness of the collecting systems compared to previous. BLADDER: Distended Probable bladder diverticula on the left GASTROINTESTINAL TRACT: The bowel pattern is nonobstructing. There is no free fluid. ABDOMINAL WALL: No significant hernia is appreciated. LYMPH NODES: There is no bulky adenopathy here. VASCULAR: Atherosclerotic changes are noted. PELVIC VISCERA: Prominent prostate OSSEOUS STRUCTURES: No acute finding. Degenerative changes. CT/CT abdomen pelvis wo con IMPRESSION: Distended bladder with thick and posterior wall. Cystitis would need to be considered. Probable bladder diverticulum is noted. Prominent prostate. The bowel pattern is nonobstructing. There is no free fluid. Fleischner guidelines were followed.
--- NOTE | ~2021-10-31 | CT_ITS ---
EXAMINATION: CT HEAD WITHOUT CONTRAST CLINICAL INFORMATION: Altered mental status COMPARISON: CT head 09/02/2021 TECHNIQUE: Contiguous axial imaging was performed from the skull base to vertex without intravenous administration of contrast. This CT examination was performed using dose optimization techniques as appropriate, variously including the following: *Automated exposure control *Adjustment of mA and/or kV according to patient size (this includes techniques or standardized protocols for targeted exams where dose is matched to indication/reason for exam; i.e. extremities or head) *Use of iterative reconstruction technique DLP: 688 mGy-cm FINDINGS: There is no evidence of acute intracranial hemorrhage or territorial infarction. No abnormal mass effect or midline shift is seen. Freed to white matter differentiation is well preserved. No extra-axial fluid collections are identified. There is generalized global volume loss. There is moderate prominence of the ventricles and the sulci . There is mild hypodensity of the periventricular white matter due to chronic small vessel ischemic disease. There are vascular calcifications of the internal carotid arteries bilaterally. The osseous structures and soft tissues are normal. Lobular mucosal thickening in the ethmoid and maxillary sinuses. Right frontal sinus is hypoplastic and opacified. Near-complete opacification of the left sphenoid sinus. Mastoid air cells and middle ear cavities are normally aerated. Mastoid air cells and middle ear cavities are normally aerated. CT/CT head/brain wo con IMPRESSION: 1. No acute intracranial pathology. 2. Sinus disease.
[2021-10-31 20:35] VITALS: BP 162/79; PULSE 83; RESP 20; TEMP 36.5; O2SAT 96; BMI 29.5
--- NOTE | 2021-10-31 20:35 | ED.ALCOHOL ---
HPI - Alcohol General Chief Complaint: ETOH/Substance Use Stated Complaint: Abdominal pain/ ETOH Time Seen by Provider: 10/31/21 20:35 History of Present Illness HPI narrative: 65-year-old male with a long history of EtOH presents today being found outside his apartment to patient no specific complaints no fever no chills no nausea no vomiting. History of alcohol abuse history of hepatitis Related Data Home Medications Medication Instructions Recorded Confirmed atorvastatin 40 mg tablet 40 mg PO BEDTIME 04/01/20 09/02/21 cholecalciferol (vitamin D3) 50 50 mcg PO DAILY 04/01/20 09/02/21 mcg (2,000 unit) capsule gabapentin 600 mg tablet 600 mg PO BID 04/01/20 09/02/21 metoprolol succinate 25 mg 25 mg PO DAILY 04/01/20 09/02/21 tablet,extended release 24 hr phenytoin 50 mg chewable tablet 50 mg PO BID 04/01/20 09/02/21 tamsulosin 0.4 mg capsule 0.4 mg PO DAILY 04/01/20 09/02/21 umeclidinium 62.5 mcg/actuation 1 puff inhalation DAILY 09/26/20 09/02/21 blister powder for inhalation (Incruse Ellipta) naltrexone 50 mg tablet 1 tab PO DAILY 06/23/21 09/02/21 sertraline 25 mg tablet 1 tab PO DAILY 06/23/21 09/02/21 melatonin 5 mg tablet 1 tab PO BEDTIME 09/02/21 09/02/21 olanzapine 20 mg tablet 1 tab PO BEDTIME 09/02/21 09/02/21 Previous Rx's Medication Instructions Recorded cyanocobalamin (vitamin B-12) 1,000 mcg PO DAILY #20 caps 10/08/20 1,000 mcg capsule folic acid 1 mg tablet 1 mg PO DAILY #30 tabs 10/10/20 thiamine HCl (vitamin B1) 100 mg 100 mg PO DAILY #30 tabs 10/10/20 tablet pantoprazole 20 mg tablet,delayed 20 mg PO DAILY for heartburn 30 07/25/21 release days #30 tabs amlodipine 10 mg tablet 10 mg PO DAILY #30 tabs 09/08/21 apixaban 5 mg tablet (Eliquis) 10 mg PO BID #66 tabs 09/08/21 Allergies Allergy/AdvReac Type Severity Reaction Status Date / Time No Known Allergies Allergy Verified 03/25/21 14:56 [No Known Allergies*] Review of Systems Review of Systems: Unable to obtain review systems negative patient condition Yes Unobtainable due to mental condition ON LICENSE OF [facility] Past Medical History Medical History Alcohol abuse Cellulitis Dementia DVT (deep venous thrombosis) DVT of deep femoral vein Seizure Surgical History No pertinent past surgical history Family History Family History Father No problems noted. Mother No problems noted. Brother Cancer Sister No problems noted. Social History Social History Household Members: Unknown / Unable to assess Housing: Unknown / Unable to assess Unable to assess alcohol history related to: Unknown Alcohol intake: current Alcohol intake frequency: a few times a week Alcohol type: beer Patient Tobacco Use Status: Tobacco use Unknown Substance Use Type: Unknown Advance Directives: Yes Advance Directives on File: Yes Advance Directives Date on File: 10/11/20 service: No Current occupational status: unemployed and disabled Physical Exam ED Vital Signs: Vital Signs - 24 hr 10/31/21 20:35 10/31/21 21:12 10/31/21 22:31 Temperature 97.7 F Pulse Rate 83 81 74 Respiratory Rate 20 16 16 Blood Pressure 162/79 H 128/68 147/61 H Pulse Oximetry 96 94 98 Oxygen Delivery Method Nasal Cannula Nasal Cannula Nasal Cannula Oxygen Flow Rate 2 2 BMI result Body Mass Index 29.5 Appearance: Alert. No acute distress. Eyes: Pupils equal, round and reactive to light. ENT: Pharynx normal. Neck: Normal inspection. Neck supple. No lymph nodes noted. No crepitus CVS: Normal heart rate and rhythm. Pulses normal. Normal S1 and S2 Respiratory: No respiratory distress. Breath sounds normal. No Wheezing. No rales Abdomen: Soft and nontender. No rigidity. No distention. good BS x4 Skin: Skin warm and dry. Normal skin color. Normal skin turgor. Extremities: No lower extremity edema. Neurovascular intact to all extremities. No Lacerations. No Rash Neuro: Oriented X 3. No motor deficit. No sensory deficit. Moving all extermities. No slurred speech MDM - Alcohol MDM Narrative Medical decision making narrative: Patient has slept in the emergency department. Alcohol level is actually less than 100. Patient's electrolytes unremarkable. CT scan of the head was negative no evidence of bleeding. CT scan of the abdomen showed no evidence of obstruction, abscess, perforation. Woke patient up ambulated patient in emergency department without any problem. Uses a cane normally. Patient ambulated with a cane in the emergency department. Will discharge patient home. Told to follow up on an outpatient basis. Lab Data Result diagrams: 10/31/21 20:52 10/31/21 20:52 Labs: Lab Results 10/31/21 10/31/21 10/31/21 Range/Units 20:52 20:52 20:52 WBC 7.3 (4.8-10.8) X10*3/uL RBC 3.88 L (4.60-5.80) X10*6/uL Hgb 11.6 L (14.0-18.0) g/dl Hct 35.2 L (42.0-52.0) % MCV 90.7 (80.0-98.0) fL MCH 29.9 (27.0-33.0) pg MCHC 33.0 (31.0-36.0) g/dl RDW 13.4 (11.0-16.0) % Plt Count 215 (160-400) X10*3/uL MPV 8.3 L (9.4-12.4) fL Immature Gran % (Auto) 0.3 (0.0-0.4) % Neut % (Auto) 50.3 (45-73) % Lymph % (Auto) 36.1 (20-40) % Imperial % (Auto) 8.9 (2-11) % Eos % (Auto) 4.0 (0-4) % Baso % (Auto) 0.4 (0-2) % Lymph # (Auto) 2.6 (1.2-4.9) X10*3/uL Imperial # (Auto) 0.7 (0.1-1.2) X10*3/uL Eos # (Auto) 0.3 (0.0-0.4) X10*3/uL Baso # (Auto) 0.0 (0.0-0.2) X10*3/uL Abs Immat Gran (auto) 0.02 (0.00-0.03) X10*3/uL Absolute Neuts (auto) 3.7 (2.0-8.3) x10*3/uL Absolute Nucleated RBC 0.000 (0.0-0.012) X10*3/uL Nucleated RBC % (auto) 0.0 (0.0-0.2) /100WBC Sodium 137 (135-145) mmol/L Potassium 3.7 D (3.3-5.1) mmol/L Chloride 104 (96-108) mmol/L Carbon Dioxide 24 (22-29) mmol/L Anion Gap 13 (12-20) BUN 11 (9-16) mg/dL Creatinine 0.77 (0.5-1.4) mg/dL Estim Creat Clear Calc 108.3 Estimated GFR > 60 Random Glucose 108 (60-115) mg/dL Calcium 8.9 (8.4-10.2) mg/dL Total Bilirubin 0.2 (0.0-1.0) mg/dL Direct Bilirubin < 0.2 (0.0-0.5) mg/dL AST 19 (5-37) U/L ALT 20 (0-40) U/L Alkaline Phosphatase 91 (39-117) U/L Total Protein 6.8 (6.5-8.0) g/dL Albumin 3.6 (3.5-5.0) g/dL Lipase 35 (8-78) U/L Ethyl Alcohol 54 mg/dL Discharge Plan Discharge Clinical Impression: Alcohol intoxication Patient Disposition: Home, Self-Care Instructions: Alcohol Intoxication (ED) Prescriptions: No Action pantoprazole 20 mg tablet,delayed release (DR/EC) 20 mg PO DAILY 30 Days Qty: 30 3RF Incruse Ellipta 62.5 mcg/actuation blister with device 1 puff inhalation DAILY cyanocobalamin (vitamin B-12) 1,000 mcg capsule 1,000 mcg PO DAILY Qty: 20 0RF folic acid 1 mg tablet 1 mg PO DAILY Qty: 30 1RF thiamine HCl (vitamin B1) 100 mg tablet 100 mg PO DAILY Qty: 30 1RF olanzapine 20 mg tablet 1 tab PO BEDTIME melatonin 5 mg tablet 1 tab PO BEDTIME amlodipine 10 mg Tablet 10 mg PO DAILY Qty: 30 0RF Protocol: Hold for SBP< HOLD for SBP < : 90 Eliquis 5 mg Tablet 10 mg PO BID Qty: 66 0RF Rx Instructions: take 10 mg twice daily x7 days stop date 09/11/21 then take 5 mg twice daily naltrexone 50 mg tablet 1 tab PO DAILY sertraline 25 mg tablet 1 tab PO DAILY metoprolol succinate 25 mg tablet extended release 24 hr 25 mg PO DAILY atorvastatin 40 mg tablet 40 mg PO BEDTIME gabapentin 600 mg tablet 600 mg PO BID tamsulosin 0.4 mg capsule 0.4 mg PO DAILY cholecalciferol (vitamin D3) 50 mcg (2,000 unit) capsule 50 mcg PO DAILY phenytoin 50 mg tablet,chewable 50 mg PO BID Referrals: Lori Hernandez MD [Primary Care Provider] - Print Language: Niuean
[2021-10-31 20:58] LABS: MANUAL DIFF FLAG NO
[2021-10-31 21:00] LABS: Basophils Percent Auto 0.4 % (0-2); Eosinophils Absolute Auto 0.3 X10*3/uL (0.0-0.4); Hematocrit 35.2 % (42.0-52.0); Hemoglobin 11.6 g/dl (14.0-18.0); Imm Gran Abs Auto 0.02 X10*3/uL (0.00-0.03); Imm Gran Pct Auto 0.3 % (0.0-0.4); Lymphocytes Absolute Auto 2.6 X10*3/uL (1.2-4.9); Lymphocytes Percent Auto 36.1 % (20-40); Mean Corpuscular Hemoglobin 29.9 pg (27.0-33.0); Mean Corpuscular Volume 90.7 fL (80.0-98.0); Mean Platelet Volume 8.3 fL (9.4-12.4); Monocytes Absolute Auto 0.7 X10*3/uL (0.1-1.2); Monocytes Percent Auto 8.9 % (2-11); Neutrophils Absolute Auto 3.7 x10*3/uL (2.0-8.3); Neutrophils Percent Auto 50.3 % (45-73); Platelet Count 215 X10*3/uL (160-400); Red Blood Count 3.88 X10*6/uL (4.60-5.80); Red Cell Distribution Width 13.4 % (11.0-16.0); White Blood Count 7.3 X10*3/uL (4.8-10.8)
[2021-10-31 21:12] VITALS: BP 128/68; PULSE 81; RESP 16; O2SAT 94
[2021-10-31 21:24] LABS: Ethanol 54 mg/dL
[2021-10-31 21:27] LABS: Anion Gap 13 (12-20); Blood Urea Nitrogen 11 mg/dL (9-16); Calcium 8.9 mg/dL (8.4-10.2); Carbon Dioxide 24 mmol/L (22-29); Chloride 104 mmol/L (96-108); Creatinine Clr Calc Pharmacy 108.3; Estimated Glomerular Filt Rate > 60; Glucose Random 108 mg/dL (60-115); Potassium 3.7 mmol/L (3.3-5.1); Sodium 137 mmol/L (135-145)
[2021-10-31 21:59] LABS: Alanine Aminotransferase 20 U/L (0-40); Albumin Level 3.6 g/dL (3.5-5.0); Alkaline Phosphatase 91 U/L (39-117); Aspartate Amino Transferase 19 U/L (5-37); Bilirubin Direct < 0.2 mg/dL (0.0-0.5); Bilirubin Total 0.2 mg/dL (0.0-1.0); Lipase 35 U/L (8-78); Total Protein 6.8 g/dL (6.5-8.0)
[2021-10-31 22:31] VITALS: BP 147/61; PULSE 74; RESP 16; O2SAT 98
[2021-10-31 23:20] VITALS: BP 130/68; PULSE 70; RESP 14; TEMP 36.6; O2SAT 98
== END 2021-10-31 23:24 | disposition home or self-care (01) ==
PROVIDERS: Emergency Provider Emergency Medicine Emergency Medical Services; PCP Internal Medicine
DX: F10.129 Alcohol abuse with intoxication, unspecified (principal); Y90.2 Blood alcohol level of 40-59 mg/100 ml; R10.9 Unspecified abdominal pain; R51.9 Headache, unspecified; Z79.899 Other long term (current) drug therapy
CPT/HCPCS: 36415; 70450; 74176; 80048; 80076; 82077; 83690; 85025; 99284

== ENCOUNTER → 2021-11-04 12:33 | Outpatient (BNVA) | payer MEDICARE, MEDICAID, SELFPAY | PROVIDERS: PCP Internal Medicine; Referring Provider Internal Medicine; Visit Provider Internal Medicine | DX: I42.9 Cardiomyopathy, unspecified (principal); I25.10 Atherosclerotic heart disease of native coronary artery without angina pectoris; I10 Essential (primary) hypertension; F10.10 Alcohol abuse, uncomplicated; F17.210 Nicotine dependence, cigarettes, uncomplicated | CPT/HCPCS: 99212 ==

== ENCOUNTER → 2021-12-29 12:32 | Outpatient (BNVA) | payer MEDICARE, MEDICAID, SELFPAY | PROVIDERS: PCP Internal Medicine; Referring Provider Internal Medicine; Visit Provider Internal Medicine Gastroenterology | DX: K74.60 Unspecified cirrhosis of liver (principal); K75.81 Nonalcoholic steatohepatitis (NASH); R76.8 Other specified abnormal immunological findings in serum; E53.8 Deficiency of other specified B group vitamins; E72.20 Disorder of urea cycle metabolism, unspecified; G93.40 Encephalopathy, unspecified; Z79.01 Long term (current) use of anticoagulants; Z72.89 Other problems related to lifestyle | CPT/HCPCS: 99212 ==

== ENCOUNTER 2022-02-12 07:58 | Outpatient (REF) | payer MEDICARE, MEDICAID, SELFPAY ==
--- NOTE | ~2022-02-12 | US_ITS ---
EXAMINATION: US VENOUS ULTRASOUND WITH DOPPLER LOWER EXTREMITY, LEFT CLINICAL INFORMATION: Left lower extremity edema. History of positive deep venous thrombosis in the past. COMPARISON: None TECHNIQUE: Ultrasound of the deep veins is performed from the hip to the calf with compression sonography and color and pulse Doppler assessment. Spectral analysis with color-flow imaging is performed. FINDINGS: There is normal venous compression and respiratory variation and augmented flow. The visualized common femoral vein, superficial femoral vein, profunda femoral vein, popliteal vein, and the trifurcation region shows no evidence of deep venous thrombosis. No Durham's cyst is seen. Of incidental note, monophasic flow is seen throughout the visualized lower extremity arterial system. US/US venous duplex LE LT IMPRESSION: No evidence of left lower extremity deep venous thrombosis. Incidentally visualized monophasic flow throughout the lower leg arterial system, suggesting more proximal severe arterial stenosis.
== END 2022-02-12 07:59 | disposition home or self-care (01) ==
LOC: HO.US 07:58
PROVIDERS: Visit Provider Internal Medicine
DX: Z01.818 Encounter for other preprocedural examination (principal); R60.0 Localized edema; I82.4Z2 Acute embolism and thrombosis of unspecified deep veins of left distal lower extremity
CPT/HCPCS: 93971

== ENCOUNTER 2022-03-03 09:22 | Inpatient (IN) | payer MEDICARE, MEDICAID, SELFPAY ==
[2022-03-03] VITALS (7 sets, daily range): BP systolic 138–205; BP diastolic 84–117; PULSE 126–138; RESP 19–26; TEMP 36.6–37.6; O2SAT 94–97; BMI 25.8
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
--- NOTE | ~2022-03-03 | US_ITS ---
EXAMINATION: US VENOUS ULTRASOUND WITH DOPPLER LOWER EXTREMITY, BILATERAL CLINICAL INFORMATION: Bilateral lower leg pain and swelling. COMPARISON: 02/12/2022. TECHNIQUE: Ultrasound of the deep veins is performed from the hip to the calf with compression sonography and color and pulse Doppler assessment. Spectral analysis with color-flow imaging is performed. FINDINGS: RIGHT: There is normal venous compression and respiratory variation and augmented flow. The visualized common femoral vein, superficial femoral vein, profunda femoral vein, popliteal vein, and the trifurcation region shows no evidence of deep venous thrombosis. There is no significant popliteal fossa cyst. LEFT: There is normal venous compression and respiratory variation and augmented flow. The visualized common femoral vein, superficial femoral vein, profunda femoral vein, popliteal vein, and the trifurcation region shows no evidence of deep venous thrombosis. There is no significant popliteal fossa cyst. Incidental note made of monophasic flow within left lower extremity. If the patient's symptoms persist, followup ultrasound in 5 days 7 days might be of value to exclude proximal propagation from a non-visualized calf vein. US/US venous duplex LE BI IMPRESSION: No DVT demonstrated in the bilateral lower extremities. Incidental note made of diminished inflow to the left lower extremity. This was seen on the prior exam.
--- NOTE | ~2022-03-03 | CT_ITS ---
EXAMINATION: CT HEAD WITHOUT CONTRAST CLINICAL INFORMATION: Continued encephalopathy COMPARISON: Previous head CT 03/12/2022 TECHNIQUE: Contiguous axial imaging was performed from the skull base to vertex without intravenous administration of contrast. This CT examination was performed using dose optimization techniques as appropriate, variously including the following: *Automated exposure control *Adjustment of mA and/or kV according to patient size (this includes techniques or standardized protocols for targeted exams where dose is matched to indication/reason for exam; i.e. extremities or head) *Use of iterative reconstruction technique DLP: 183 mGy-cm FINDINGS: There is no evidence of an extra-axial collection. There is no evidence of intra-axial or extra-axial hemorrhage. The ventricles and extra-axial CSF spaces are prominent suggestive of mild generalized atrophy. There is nonspecific periventricular white matter disease. There may be old left thalamic and left basal ganglia/anterior limb internal capsule lacunar infarcts. These appear unchanged. No mass, mass effect or acute infarct. Atherosclerotic disease. No skull fracture. Inflammatory changes in the right maxillary and sphenoid sinuses. CT/CT head/brain wo IV con IMPRESSION: No acute findings. Mild generalized atrophy and nonspecific periventricular white matter disease.
--- NOTE | ~2022-03-03 | XR_ITS ---
EXAMINATION: XR CHEST CLINICAL INFORMATION: Difficulty breathing COMPARISON: 03/25/2022 TECHNIQUE: Frontal view of the chest was obtained. FINDINGS: There is a left basilar infiltrate and effusion which appears to have increased. Right lung clear. Radiopaque density possibly shrapnel overlies the left distal clavicle and right upper chest. Heart size borderline with normal caliber pulmonary vessels. XR/XR chest 1V IMPRESSION: Increasing left basilar infiltrate and pleural effusion.
--- NOTE | ~2022-03-03 | FL_ITS ---
EXAMINATION: FL FLUOROSCOPY-GUIDED LUMBAR PUNCTURE CLINICAL INFORMATION: Persistent encephalopathy. COMPARISON: None. TECHNIQUE: Following explaining procedure, benefits and risks to patient's family, a written consent was obtained. Patient was placed initially in the right semiprone position and subsequently in the right lateral decubitus view. The area along the lower back was cleaned and draped with 2% chlorhexidine solution. 1% lidocaine was inserted at the skin overlying the L3-L4 disc level. Initially, a 22-gauge short and long needle was advanced, however, unsuccessful. A 20-gauge long needle was then advanced from the skin intrathecally at L3-L4 disc level in right the lateral decubitus view and approximately 2.86 cm of slightly hemorrhagic CSF was collected in 3 test tubes. Postprocedure, needle was withdrawn and complete hemostasis achieved at puncture site. Sterile Band-Aid applied at the puncture site. Patient was sedated by the anesthesia department. FINDINGS: Oblique and lateral views of the lumbar spine reveal normal lumbar lordosis. The vertebral heights, alignment and disc heights are preserved. There are ventral bridging osteophytes at the L2-L3 and mild ventral spondylosis at L3-L4 disc levels. On the 2 images obtained, there is needle positioned intrathecally at the L3-L4 disc level. FLUOROSCOPY TIME: 3.1 minutes. DOSE AREA PRODUCT: 34.4-6 uGy-m2 (microgray-meter squared). FL/FL guided lumbar puncture LP IMPRESSION: Successful fluoroscopic-guided lumbar epidural steroid injection at the L3-L4 disc level. There is mild ventral spondylosis at L3-L4 disc level. Patient was sedated by the anesthesia department.
--- NOTE | ~2022-03-03 | CT_ITS ---
EXAMINATION: CT HEAD WITHOUT CONTRAST CLINICAL INFORMATION: Altered mental status. Lethargy. COMPARISON: CT head 03/03/2022. TECHNIQUE: Contiguous axial imaging was performed from the skull base to vertex without intravenous administration of contrast. This CT examination was performed using dose optimization techniques as appropriate, variously including the following: *Automated exposure control *Adjustment of mA and/or kV according to patient size (this includes techniques or standardized protocols for targeted exams where dose is matched to indication/reason for exam; i.e. extremities or head) *Use of iterative reconstruction technique DLP: 728 mGy-cm FINDINGS: There is no acute hemorrhage or abnormal extra-axial collection. No intracranial mass effect or midline shift. Lateral and third ventricles are normal. No hydrocephalus. Scattered nonspecific foci of hypoattenuation are visualized within the periventricular white matter that most likely represent a chronic manifestation of small vessel ischemia. Freed-white matter differentiation is otherwise preserved and there is no evidence of acute territorial infarct. The calvarium and skull base are intact. Mastoid air cells and middle ear cavities are well aerated. Moderate paranasal sinus disease is partially included within [id number] of this examination. Globes and orbits are grossly symmetric. CT/CT head/brain wo IV con IMPRESSION: There are scattered chronic small vessel ischemic changes within the periventricular white matter. No evidence of acute territorial infarct or hemorrhage. No intracranial mass effect or hydrocephalus.
--- NOTE | ~2022-03-03 | CT_ITS ---
EXAMINATION: CT HEAD WITHOUT CONTRAST CLINICAL INFORMATION: Status post fall with head strike. COMPARISON: Head CT scan dated 10/31/2021. TECHNIQUE: Contiguous axial imaging was performed from the skull base to vertex without intravenous administration of contrast. Coronal and sagittal reformatted images were obtained. This CT examination was performed using dose optimization techniques as appropriate, variously including the following: *Automated exposure control *Adjustment of mA and/or kV according to patient size (this includes techniques or standardized protocols for targeted exams where dose is matched to indication/reason for exam; i.e. extremities or head) *Use of iterative reconstruction technique DLP: 752.58 mGy-cm FINDINGS: There is mild widening of the cortical sulci and associated ventriculomegaly. Mild periventricular microvascular changes are seen. The lateral ventricles are symmetrical. The third and fourth ventricles are in their normal midline position. The basilar and prepontine cisterns are unremarkable. There is no acute intra or extracerebral abnormality. There is no mass effect or midline shift. Sections through the bony calvarium are unremarkable. The orbits are intact. The paranasal sinuses show increased mucosal thickening most pronounced in the right maxillary sinus. The mastoid air cells are clear. Mild anterior nasal septal deviation, apex the right. CT/CT head/brain wo IV con IMPRESSION: No acute intracranial pathology.
--- NOTE | ~2022-03-03 | US_ITS ---
EXAMINATION: NONINVASIVE ASSESSMENT OF THE ARTERIES OF THE LEFT LOWER EXTREMITY Brayden Fang MD CLINICAL INFORMATION: Cold discolored left leg TECHNIQUE: Left lower extremity duplex ultrasound was performed with velocity measurements and waveform analysis in the common femoral arteries, profunda femoris arteries, proximal mid and distal superficial femoral arteries, popliteal arteries and tibial vessels. This study was performed only at rest. COMPARISON: CT abdomen pelvis 03/03/2022 FINDINGS: Velocities in cm/sec and phasicity as well as the presence of plaque are reported below. LEFT LEG: Calcified plaque is seen throughout. Monophasic flow is seen in all visualized vessels. The mid SFA is occluded. Common Femoral: 26 Profunda Femoris: 44 Proximal SFA: 97 Mid SFA: Occluded Distal SFA: 14 Popliteal: 49 Tibial: 26 US/US arterial duplex LE LT IMPRESSION: Severe peripheral vascular disease with monophasic flow throughout and occlusion of left SFA. Monophasic waveforms in the common femoral artery suggest inflow disease. Severe atherosclerotic disease was noted in the iliofemoral vessels on the 03/03/2022 CT scan.
--- NOTE | ~2022-03-03 | XR_ITS ---
EXAMINATION: XR FOOT, LEFT CLINICAL INFORMATION: Left foot pain. COMPARISON: None TECHNIQUE: AP, lateral, and oblique views of the left foot. There is limitation to the study secondary to difficulty with patient positioning. The phalanges were suboptimally evaluated. FINDINGS: No overt fracture or dislocation is seen. The metatarsals appear intact. The tarsal bones are normally aligned. There is a small plantar calcaneal spur. The soft tissues are unremarkable. XR/XR foot LT 2V IMPRESSION: 1. Limited study. No overt acute fracture. 2. Small degenerative plantar calcaneal spur.
--- NOTE | ~2022-03-03 | CT_ITS ---
EXAMINATION: CT CERVICAL SPINE WITHOUT CONTRAST CLINICAL INFORMATION: Neck pain status post fall. COMPARISON: Chest CTA dated 01/02/2022, cervical spine CT scan dated 06/23/2021. TECHNIQUE: Multiple axial images of the cervical spine were obtained without the administration of intravenous contrast. Coronal and sagittal reformatted images were obtained. There is some limitation secondary to mild motion artifact. This CT examination was performed using dose optimization techniques as appropriate, variously including the following: *Automated exposure control *Adjustment of mA and/or kV according to patient size (this includes techniques or standardized protocols for targeted exams where dose is matched to indication/reason for exam; i.e. extremities or head) *Use of iterative reconstruction technique DLP: 417.16 mGy-cm FINDINGS: There is straightening of the normal cervical lordosis with normal spinal alignment. The vertebral bodies and odontoid processes are intact. Mild multilevel marginal osteophyte formation is seen. Moderate odontoid articular degenerative changes are seen. The neural foramina are patent. The facet joints show mild degenerative changes. The spinous processes are intact. The cervical soft tissues are unremarkable. There is no lymphadenopathy. The thyroid gland is unremarkable. Biapical cystic changes, right greater than left similar to previous studies. CT/CT cervical spine wo IV con IMPRESSION: 1. Straightening of the normal cervical lordosis may be secondary to positioning and/or muscle spasm. Multilevel degenerative changes without significant change. No significant interval change. No acute abnormality.
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
--- NOTE | ~2022-03-03 | CT_ITS ---
EXAMINATION: CT HEAD WITHOUT CONTRAST (STROKE PROTOCOL) CLINICAL INFORMATION: Stroke protocol. Left facial droop COMPARISON: March 06, 2022 and September 02, 2021 TECHNIQUE: Contiguous axial imaging was performed from the skull base to vertex without intravenous administration of contrast. This CT examination was performed using dose optimization techniques as appropriate, variously including the following: *Automated exposure control *Adjustment of mA and/or kV according to patient size (this includes techniques or standardized protocols for targeted exams where dose is matched to indication/reason for exam; i.e. extremities or head) *Use of iterative reconstruction technique DLP: 758 mGy-cm FINDINGS: No intracranial hemorrhage is identified. No abnormal extra-axial fluid collection is seen. No significant mass effect or midline structure shift. There is a large amount of periventricular white matter low density present consistent with microangiopathy. There appears be an old left thalamic lacunar infarct versus vascular space. There appears to be an old infarct involving the right anterior limb of the internal capsule. The ventricles, sulci, and cisterns are symmetric with mild prominence. There are dense calcifications of the carotid and vertebral arteries bilaterally mastoid air cells are well aerated. Findings of chronic pansinusitis present. CT/CT head for stroke IMPRESSION: No acute intracranial pathology. Findings consistent with significant microangiopathy. This critical result was discussed with Danyell ARRIETA at 4:25 PM hours on March 12, 2022. It was ascertained that the content and urgency of the report was understood at the time of direct communication.
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
--- NOTE | ~2022-03-03 | IR_ITS ---
PROCEDURE: IR INSERTION OF PICC CLINICAL INFORMATION: Long-term TPN requirement. COMPARISON: None. TECHNIQUE: Medical necessity was determined by the hospitalist who signed informed consent for the patient. All elements of maximal sterile barrier technique followed including use of cap, mask, sterile gown, sterile gloves, a sterile full body drape and hand hygiene. Also followed skin preparation with 2% chlorhexidine for cutaneous antisepsis, and sterile ultrasound preparation with sterile gel and probe cover when applicable. Using ultrasound guidance, right brachial vein access was obtained. Over a 0.018 wire and through a peel-away sheath, a 6 [place]ian triple lumen PICC line was positioned. Catheter length is 35 cm. Catheter tip is in the SVC. Real-time ultrasound guidance was used to document vein patency and for needle entry. A formal ultrasound was recorded. Fluoroscopy time: 0.4 minutes. DAP: 41 cGy-cm2. FINDINGS: There is a right upper extremity PICC line with tip projecting over the SVC. There are foreign bodies projecting over the right chest similar to previous chest x-rays. IR/IR cvc insert peripheral IMPRESSION: Right upper extremity PICC line placement.
--- NOTE | ~2022-03-03 | US_ITS ---
EXAMINATION: US RETROPERITONEAL LIMITED (RENAL ONLY) CLINICAL INFORMATION: FABIENNE. COMPARISON: CT abdomen of March 03, 2022 TECHNIQUE: Renal ultrasound FINDINGS: RIGHT KIDNEY: 10.7 x 4.5 x 3.5 cm (SAG x AP x TRV). The kidney is normal in size, contour, and echogenicity. Renal cortical thickness is normal. No focal parenchymal lesions. No hydronephrosis. 5 mm nonobstructing calculus seen within the midpole. LEFT KIDNEY: 10.6 x 4.4 x 4.3 cm (SAG x AP x TRV). The kidney is normal in size, contour, and echogenicity. Renal cortical thickness is normal. No calculi identified. No hydronephrosis. Within the lower pole there is a hypoechoic partially exophytic 1.3 x 0.8 x 0.9 cm structure which may represent a complex cyst however solid lesion is not excluded and MRI or CT with and without contrast may be of help in further evaluation. Inpatient with acute renal failure IV contrast for CT would be contraindicated. Otherwise close follow-up with repeat ultrasound and 3-6 months could be performed. US/US renal BI IMPRESSION: No evidence of obstructive uropathy. No evidence of increased echogenicity or thickening of the cortex. Nonobstructing right renal calculus. Question complex cyst versus solid lesion in this limited study in nonmobile patient unable to hold his breath..
--- NOTE | ~2022-03-03 | XR_ITS ---
EXAMINATION: XR KNEE, LEFT CLINICAL INFORMATION: Left knee pain. COMPARISON: None TECHNIQUE: Four views of the left knee. FINDINGS: There are small enthesophytes along the superior patella. The joint space is maintained normal. No visible acute fracture or dislocation seen. No abnormal suprapatellar joint effusion seen. XR/XR knee LT 2V IMPRESSION: Mild anterior superior patellar spurring. No visible fracture or dislocation.
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
--- NOTE | 2022-03-03 09:42 | ECG_ITS ---
Test Reason : fall Blood Pressure : / mmHG Vent. Rate : 133 BPM Atrial Rate : 133 BPM P-R Int : 128 ms QRS Dur : 082 ms QT Int : 330 ms P-R-T Axes : 064 066 052 degrees QTc Int : 491 ms Poor data quality Sinus tachycardia Intra-ventricular conduction delay Minimal voltage criteria for LVH, may be normal variant ( Sokolow-Maciel ) Nonspecific ST abnormality Abnormal ECG When compared with ECG of 02-SEP-2021 19:25, Nonspecific T wave abnormality now evident in Inferior leads Referred By: Barbara Coyle Electronically Signed By:CINDY URRUTIA MD
[2022-03-03 09:48] LABS: Glucose, Whole Blood 96 mg/dL (60-115)
[2022-03-03] MEDS: Midazolam HCl/PF 2 MG/2 ML VIAL IVPUSH (09:54)
[2022-03-03] MEDS: 0.9 % Sodium Chloride 1,000 ML 999 ML IV (10:36)
[2022-03-03 10:43] LABS: MANUAL DIFF FLAG NO
[2022-03-03 10:47] LABS: Venous Blood Gas Refer to POC result
[2022-03-03 10:48] LABS: Basophils Absolute Auto 0.1 X10*3/uL (0.0-0.2); Basophils Percent Auto 0.7 % (0-2); Eosinophils Absolute Auto 0.2 X10*3/uL (0.0-0.4); Eosinophils Percent Auto 1.6 % (0-4); Hematocrit 37.1 % (42.0-52.0); Hemoglobin 12.3 g/dl (14.0-18.0); Imm Gran Abs Auto 0.03 X10*3/uL (0.00-0.03); Imm Gran Pct Auto 0.3 % (0.0-0.4); Lymphocytes Absolute Auto 2.8 X10*3/uL (1.2-4.9); Lymphocytes Percent Auto 29.4 % (20-40); Mean Corpuscular HGB Conc 33.2 g/dl (31.0-36.0); Mean Corpuscular Hemoglobin 30.1 pg (27.0-33.0); Mean Corpuscular Volume 90.9 fL (80.0-98.0); Mean Platelet Volume 8.8 fL (9.4-12.4); Monocytes Absolute Auto 1.1 X10*3/uL (0.1-1.2); Neutrophils Absolute Auto 5.3 x10*3/uL (2.0-8.3); Platelet Count 256 X10*3/uL (160-400); Red Blood Count 4.08 X10*6/uL (4.60-5.80); Red Cell Distribution Width 12.6 % (11.0-16.0); White Blood Count 9.5 X10*3/uL (4.8-10.8)
[2022-03-03 10:49] LABS: VBG HCO3 24 mmol/L (22-26); VBG pCO2 40 mmHg; VBG pH 7.39 (7.32-7.43); VBG pO2 34 mmHg
[2022-03-03 10:54] LABS: Ammonia 25 umol/L (13-55)
[2022-03-03 10:54] LABS: Appearance Urine Turbid; Color Urine Dark Yellow; Glucose Urine UA Negative (Negative); Leukocyte Esterase Urine Moderate (2+) (Negative); Nitrite Urine Negative (Negative); Specific Gravity - Urine 1.025 (1.005-1.025); UMIC TRIGGER UACC YES; Urine Blood Negative (Negative); Urine Ketones 15 mg/dL (Negative); Urine Protein 30 (1+) mg/dL (Neg-Trace)
[2022-03-03 10:58] LABS: Lactic Acid 1.3 mmol/L (0.5-2.0)
[2022-03-03 11:05] LABS: Alanine Aminotransferase 13 U/L (0-40); Alkaline Phosphatase 111 U/L (39-117); Anion Gap 15 (12-20); Aspartate Amino Transferase 32 U/L (5-37); Bilirubin Total 0.6 mg/dL (0.0-1.0); Blood Urea Nitrogen 13 mg/dL (9-16); Calcium 9.5 mg/dL (8.4-10.2); Carbon Dioxide 26 mmol/L (22-29); Chloride 104 mmol/L (96-108); Creatinine Clr Calc Pharmacy 96.8; Estimated Glomerular Filt Rate > 60; Ethanol < 10 mg/dL; Glucose Random 94 mg/dL (60-115); Magnesium 1.6 mg/dL (1.6-2.6); Potassium 4.3 mmol/L (3.3-5.1); Sodium 141 mmol/L (135-145); Total Protein 7.5 g/dL (6.5-8.0)
[2022-03-03 11:10] LABS: Troponin-I High Sensitivity 38.5 ng/L (<3.5-35.0)
[2022-03-03 11:12] LABS: Bacteria Urine 4+ (None Seen); Hyaline Casts Urine 0-2 /LPF (0-2); RBC Urine >20 /HPF (0-2); Squamous Epithelial Cell Urine 0-2 /HPF (0-2); UACC Culture Trigger YES
[2022-03-03] MEDS: cefTRIAXone sodium 1 GM in 0.9 % Sodium Chloride 50 ML IV (11:12)
[2022-03-03 11:15] LABS: COVID-19 Test Negative (Negative)
--- NOTE | 2022-03-03 11:54 | PC.NURSE ---
pt iv fluids infusing he remains confused and not following simple directions
[2022-03-03 13:04] LABS: INTERNATIONAL NORM RATIO 1.1 (0.9-1.1); Prothrombin Time 13.2 SEC (10.0-13.1)
[2022-03-03 13:07] LABS: Partial Thromboplastin Time 27.5 SEC (26.0-36.4)
[2022-03-03 13:49] LABS: Troponin-I High Sensitivity 40.5 ng/L (<3.5-35.0)
--- NOTE | 2022-03-03 14:24 | P.HPHOSP_ITS ---
History of Present Illness Date of Service: 03/03/22 Attending physician on admission: Edmond Gilmore Chief Complaint: ams, seizure 65-year-old male with a past medical history of hypertension, hyperlipidemia, cardiomyopathy, history of seizures, history of prior DVT on Eliquis, history of alcohol abuse on naltrexone, and encephalopathy brought to the ED via EMS after being found seizing on sidewalk by bystanders incontinent of urine. Pt is encephalopathic at baseline and is unable to provide history. On arrival, patient encephalopathic. Hypertensive with SBP ranging 186-205 and DBP 91-104. Tachycardic to 131. Tachypneic to 26. Afebrile, no hypoxia. Hematology studies baseline. Renal function electrolytes baseline. Lactic acid 1.3. CPK 1414. Initial troponin 38.5, repeat 40.5. EKG showing sinus tachycardia, rate 133m no LLOYD. CT head and neck without any acute abnormality except for straightening of the cervical lordosis likely secondary to muscle spasm. CT abdomen/pelvis without any acute finding. Chest CT negative. Patient was noted to have redness and swelling of the LLE of this is likely a chronic finding. Venous duplex negative for DVT. UA with 2+ leukocytes, negative blood, negative nitrites, 1+ protein, 4+ bacteria. Ethyl alcohol level undetectable. U tox pending. VBG unremarkable. Urine cultures and blood cultures pending. Patient given 2 mg Versed, 1 L bolus NS, 1 g ceftriaxone. Patient to be admitted for encephalopathy, seizure, UTI. Review of Systems Review of Systems: Yes Unobtainable due to mental condition [facility] Medical History Alcohol abuse Cardiomyopathy Cellulitis Dementia DVT (deep venous thrombosis) DVT of deep femoral vein GERD (gastroesophageal reflux disease) Hepatitis C antibody positive in blood Hypertension Seizure Family History Father No problems noted. Mother No problems noted. Brother Cancer Sister No problems noted. Surgical History No pertinent past surgical history Social History Household Members: Unknown / Unable to assess Housing: Unknown / Unable to assess Unable to assess alcohol history related to: Unknown Alcohol intake: current Alcohol intake frequency: a few times a week Alcohol type: beer Patient Tobacco Use Status: Current everyday Tobacco user Cigarettes Per Day: 7 Substance Use Type: Unknown Advance Directives: Yes Advance Directives on File: Yes Advance Directives Date on File: 10/11/20 service: No Current occupational status: unemployed and disabled Meds Allergies Allergy/AdvReac Type Severity Reaction Status Date / Time No Known Allergies Allergy Verified 12/29/21 12:36 [No Known Allergies*] Home Medications Medication Instructions Recorded Confirmed Last Taken Type atorvastatin 40 mg tablet 40 mg PO BEDTIME 04/01/20 03/03/22 Unknown History cholecalciferol (vitamin D3) 50 50 mcg PO DAILY 04/01/20 03/03/22 Unknown History mcg (2,000 unit) capsule gabapentin 600 mg tablet 600 mg PO BID 04/01/20 03/03/22 Unknown History metoprolol succinate 25 mg 25 mg PO DAILY 04/01/20 03/03/22 Unknown History tablet,extended release 24 hr phenytoin 50 mg chewable tablet 50 mg PO BID 04/01/20 03/03/22 Unknown History tamsulosin 0.4 mg capsule 0.4 mg PO DAILY 04/01/20 03/03/22 Unknown History umeclidinium 62.5 mcg/actuation 1 puff inhalation DAILY 09/26/20 03/03/22 Unknown History blister powder for inhalation (Incruse Ellipta) sertraline 25 mg tablet 1 tab PO DAILY 06/23/21 03/03/22 Unknown History olanzapine 20 mg tablet 1 tab PO BEDTIME 09/02/21 03/03/22 Unknown History apixaban 5 mg tablet (Eliquis) 5 mg PO BID 11/04/21 03/03/22 Unknown History cyanocobalamin (vitamin B-12) 1,000 mcg PO QAM 11/04/21 03/03/22 Unknown History 1,000 mcg tablet lisinopril 5 mg tablet 5 mg PO DAILY 11/04/21 03/03/22 Unknown History Physical Exam Vital Signs and Narrative: Vital Signs: Last Vital Signs Temp 99.6 F 03/03/22 09:43 Pulse 131 H 03/03/22 12:10 Resp 22 H 03/03/22 12:10 BP 190/104 H 03/03/22 12:10 Pulse Ox 97 03/03/22 09:43 O2 Del Method 03/03/22 09:43 BMI result Body Mass Index 25.8 Constitutional - Awake and Alert, No apparent distress Eyes - PERRLA, EOMI Cardiovascular - S1S2, RRR, No edema Respiratory - Normal lung expansion, Normal respiratory effort, No respiratory distress, CTA bilaterally Gastrointestinal - NT / ND; +BS; No rebound or guarding - No CVA tenderness Extremities - Redness, warmth swelling LLE with shallow 2cm x 2cm wound dorsal left foot without purulent drainage. See photo Skin - Warm/Dry Neurological - Alert & disoriented. PERRLA, unable to participate in neuro exam due to AMS Results Labs CBC and Chem 7: 03/03/22 10:37 03/03/22 10:37 Labs: Laboratory Results - last 24 hr 03/03/22 03/03/22 03/03/22 09:37 10:37 10:37 MCV MCH MCHC RDW Plt Count MPV Immature Gran % (Auto) Neut % (Auto) Lymph % (Auto) [place] % (Auto) Eos % (Auto) Baso % (Auto) Lymph # (Auto) [place] # (Auto) Eos # (Auto) Baso # (Auto) Abs Immat Gran (auto) Absolute Neuts (auto) Absolute Nucleated RBC Nucleated RBC % (auto) PT INR APTT VBG pH VBG pCO2 VBG pO2 VBG HCO3 VBG O2 Saturation VBG Base Excess Anion Gap 15 Estim Creat Clear Calc 96.8 Estimated GFR > 60 POC Glucose 96 Random Glucose 94 Lactic Acid Calcium 9.5 D Magnesium 1.6 Total Bilirubin 0.6 AST 32 D ALT 13 Alkaline Phosphatase 111 D Ammonia 25 Total Creatine Kinase 1414 H D Troponin I High Sens Total Protein 7.5 Albumin 4.0 Urine Color Urine Appearance Urine pH Ur Specific [place] Urine Protein Urine Glucose (UA) Urine Ketones Urine Blood Urine Nitrite Ur Leukocyte Esterase Urine RBC Urine WBC Ur Squamous Epith Cells Urine Bacteria Hyaline Casts Ethyl Alcohol < 10 COVID-19 (KATELYNN) COVID-19 Clin Com 03/03/22 03/03/22 03/03/22 10:37 10:37 10:37 MCV 90.9 MCH 30.1 MCHC 33.2 RDW 12.6 Plt Count 256 MPV 8.8 L Immature Gran % (Auto) 0.3 Neut % (Auto) 56.0 Lymph % (Auto) 29.4 [place] % (Auto) 12.0 H Eos % (Auto) 1.6 Baso % (Auto) 0.7 Lymph # (Auto) 2.8 [place] # (Auto) 1.1 Eos # (Auto) 0.2 Baso # (Auto) 0.1 Abs Immat Gran (auto) 0.03 Absolute Neuts (auto) 5.3 Absolute Nucleated RBC 0.000 Nucleated RBC % (auto) 0.0 PT INR APTT VBG pH VBG pCO2 VBG pO2 VBG HCO3 VBG O2 Saturation VBG Base Excess Anion Gap Estim Creat Clear Calc Estimated GFR POC Glucose Random Glucose Lactic Acid 1.3 Calcium Magnesium Total Bilirubin AST ALT Alkaline Phosphatase Ammonia Total Creatine Kinase Troponin I High Sens 38.5 H Total Protein Albumin Urine Color Urine Appearance Urine pH Ur Specific [place] Urine Protein Urine Glucose (UA) Urine Ketones Urine Blood Urine Nitrite Ur Leukocyte Esterase Urine RBC Urine WBC Ur Squamous Epith Cells Urine Bacteria Hyaline Casts Ethyl Alcohol COVID-19 (KATELYNN) COVID-19 Clin Com 03/03/22 03/03/22 03/03/22 10:41 10:41 10:42 MCV MCH MCHC RDW Plt Count MPV Immature Gran % (Auto) Neut % (Auto) Lymph % (Auto) [place] % (Auto) Eos % (Auto) Baso % (Auto) Lymph # (Auto) [place] # (Auto) Eos # (Auto) Baso # (Auto) Abs Immat Gran (auto) Absolute Neuts (auto) Absolute Nucleated RBC Nucleated RBC % (auto) PT INR APTT VBG pH 7.39 VBG pCO2 40 VBG pO2 34 VBG HCO3 24 VBG O2 Saturation 49.0 VBG Base Excess 0.0 Anion Gap Estim Creat Clear Calc Estimated GFR POC Glucose Random Glucose Lactic Acid Calcium Magnesium Total Bilirubin AST ALT Alkaline Phosphatase Ammonia Total Creatine Kinase Troponin I High Sens Total Protein Albumin Urine Color Dark Yellow Urine Appearance Turbid Urine pH 7.0 Ur Specific [place] 1.025 Urine Protein 30 (1+) H Urine Glucose (UA) Negative Urine Ketones 15 Urine Blood Negative Urine Nitrite Negative Ur Leukocyte Esterase Moderate (2+) H Urine RBC >20 H Urine WBC 6-10 H Ur Squamous Epith Cells 0-2 Urine Bacteria 4+ Hyaline Casts 0-2 Ethyl Alcohol COVID-19 (KATELYNN) Negative COVID-19 Clin Com See Note 03/03/22 03/03/22 12:47 12:47 MCV MCH MCHC RDW Plt Count MPV Immature Gran % (Auto) Neut % (Auto) Lymph % (Auto) [place] % (Auto) Eos % (Auto) Baso % (Auto) Lymph # (Auto) [place] # (Auto) Eos # (Auto) Baso # (Auto) Abs Immat Gran (auto) Absolute Neuts (auto) Absolute Nucleated RBC Nucleated RBC % (auto) PT 13.2 H INR 1.1 APTT 27.5 VBG pH VBG pCO2 VBG pO2 VBG HCO3 VBG O2 Saturation VBG Base Excess Anion Gap Estim Creat Clear Calc Estimated GFR POC Glucose Random Glucose Lactic Acid Calcium Magnesium Total Bilirubin AST ALT Alkaline Phosphatase Ammonia Total Creatine Kinase Troponin I High Sens 40.5 H Total Protein Albumin Urine Color Urine Appearance Urine pH Ur Specific [place] Urine Protein Urine Glucose (UA) Urine Ketones Urine Blood Urine Nitrite Ur Leukocyte Esterase Urine RBC Urine WBC Ur Squamous Epith Cells Urine Bacteria Hyaline Casts Ethyl Alcohol COVID-19 (KATELYNN) COVID-19 Clin Com Imaging Radiologist's Impressions: Impressions Abdomen/Pelvis CT 03/03/22 11:00 IMPRESSION: No acute finding. Cervical Spine CT 03/03/22 11:00 IMPRESSION: 1. Straightening of the normal cervical lordosis may be secondary to positioning and/or muscle spasm. Multilevel degenerative changes without significant change. No significant interval change. No acute abnormality. Chest CT 03/03/22 11:00 IMPRESSION: No acute finding. Head CT 03/03/22 11:00 IMPRESSION: No acute intracranial pathology. Venous Duplex 03/03/22 13:02 IMPRESSION: No DVT demonstrated in the bilateral lower extremities. Incidental note made of diminished inflow to the left lower extremity. This was seen on the prior exam. Assessment and Plan (1) Seizure: Status: Acute (2) Encephalopathy: Status: Acute (3) UTI (urinary tract infection): Status: Acute Plan 65-year-old male with a past medical history of hypertension, hyperlipidemia, ca rdiomyopathy, history of seizures, history of prior DVT on Eliquis, history of alcohol abuse on naltrexone, and encephalopathy admitted for seizure with question of alcohol withdrawal, UTI with sepsis, and encephalopathy #Encephalopathy- question toxic secondary to alcohol withdrawal or phenytoin vs metabolic secondary to UTI or hypertension -Baseline uncertain, but does have documentation of encephalopathy on prior admissions -Ceftriaxone for UTI see below -CIWA scale and phenobarb protocol for possible alcohol withdrawal -Dilantin level pending -Hydralazine 10mg for hypertension # seizure secondary to etoh w/d vs seizure disorder -history of seizure disorder with question of alcohol withdrawal seizure -phenobarb per protocol as above -seizure precautions -Dilantin level pending -continue home meds -neuro consult placed -NPO until bedside swallow eval # alcohol withdrawal -patient found seizing with known history of alcohol abuse on naltrexone -CIWA scale -initiate phenobarb per protocol -seizure precautions -IV thiamine and folic acid -IVF with LR @100mls/hr #elevated CPk -secondary to seizure. No rhabdo -IVF -Follow BMp and CPK am #UTI -UA with 2+ leukocytes, negative nitrites, negative blood, 1+ protein, 4+ bacteria -urine cultures and blood cultures pending -continue IV ceftriaxone -no leukocytosis, tachycardia likely secondary to alcohol withdrawal,=. Unlikely sepsis #LLE cellulitis -venous duplex negative for DVT -IV ceftriaxone -x-ray foot ordered # hypertension urgency with encephalopathy -SBP 186-205 -IV hydralazine -continue home med # history DVT -venous duplex negative -continue Eliquis # cardiomyopathy/ Hld -continue statin # COPD -continue maintenance medications -albuterol p.r.n. # GERD -continue PPI DVT prophylaxis-on Eliquis Full code Patient requires inpatient stay of at least 2 midnights due to encephalopathy of unclear etiology on phenobarb per protocol for suspected alcohol withdrawal and hypertensive urgency requiring IV antihypertensives. Quality Stroke Does the patient have a stroke diagnosis?: No VTE Prior VTE?: No VTE Risk Level:: Medical - moderate - high VTE Device Contraindication: Treatment Not Indicated VTE Drug Contraindication: N/A - Med Ordered
--- NOTE | 2022-03-03 15:46 | PHA.MEDREC ---
Pharmacy Consult ? Medication Reconciliation Pharmacy has completed the medication reconciliation. Called [facility] to obtain list.
[2022-03-03 16:36] LABS: Phenytoin Dilantin 1.3 ug/mL (10.0-20.0)
[2022-03-03] MEDS: hydrALAZINE HCl 20 MG/ML VIAL 10 MG IVPUSH (16:39)
[2022-03-03] MEDS: Thiamine HCL 100 MG in 0.9 % Sodium Chloride 100 ML 202 MG IV (16:40)
[2022-03-03] MEDS: PHENobarbitaL sodium 130 MG/ML IM ONCE 226 MG IM (17:29)
[2022-03-03] MEDS: 0.9 % Sodium Chloride 1,000 ML 100 ML IVCONT (17:49)
--- NOTE | 2022-03-03 18:09 | PC.NURSE ---
pt remains confused, he has pulled two iv lines out and requires frequent redirection.
[2022-03-03] MEDS: Folic Acid 1 MG in 0.9 % Sodium Chloride 50 ML 100.4 MG IV (18:14)
--- NOTE | 2022-03-03 18:15 | PC.NURSE ---
continues with audible wheezing
[2022-03-03 18:20] LABS: Amphetamine Screen Urine Not Detected (Not Detect); Barbiturates, Urine Not Detected (Not Detect); Benzodiazepines Screen Urine Not Detected (Not Detect); Cannabinoid Screen Urine Not Detected (Not Detect); Cocaine Screen Urine Not Detected (Not Detect); Fentanyl, urine Not Detected (Not Detect); Opiate Screen Urine Not Detected (Not Detect); Phencyclidine Screen Urine Not Detected (Not Detect)
--- NOTE | 2022-03-03 19:30 | PC.NURSE ---
Assumed care of patient at this time. Patient arrives from ED, A/Ox2, disoriented to time, able to communicate somewhat in [place], speech mumbled/slurred, left sided facial droop, unable to obtain any history or information from him, uncooperative with care, incontinent of urine and soaking wet. Patient scoring 19 on CIWA- moderate hallucinations, making hand gestures as if he were smoking cigarettes, picking stuff from air and tossing it, restless, somewhat agitated and anxious- Dr. Gilmore aware at this time; on phenobarbital protocol. Report and care passed onto oncoming RN Aleena at this time.
[2022-03-03] MEDS: Albuterol/Iprat 2.5/0.5MG 3 ML AMPUL.NEB INHALE (20:01)
--- NOTE | 2022-03-03 20:17 | PC.NURSE ---
pt Pt's customer contact specialist is Ashwin his friend. Per Ashwin , patient lives alone and Ashwin is helping him with a daily ADL'S and AIDL'S. IN the past monthy pt has been drinking alcohol and not taking his meds. the left sided facial droop is his baseline and mumbled speech. pt is alert confused ,hallucinating
[2022-03-03] MEDS: OLANZapine 10 MG TABLET 20 MG PO (20:46)
[2022-03-03] MEDS: Atorvastatin Calcium 40 MG TABLET PO (20:46)
[2022-03-03] MEDS: Gabapentin 600 MG TABLET PO (20:46)
[2022-03-03] MEDS: PHENobarbitaL sodium 130 MG/ML VIAL IM Q3Hx2 170 MG IM (20:47)
[2022-03-03] MEDS: Apixaban 5 MG TABLET PO (20:47)
[2022-03-03] MEDS: PHENobarbitaL sodium 130 MG/ML VIAL IM (22:46)
[2022-03-04] VITALS (9 sets, daily range): BP systolic 115–206; BP diastolic 75–110; PULSE 86–136; RESP 16–20; TEMP 35.6–37.4; O2SAT 94–96
--- NOTE | 2022-03-04 00:29 | PC.NURSE ---
agitated this afternoon ,hallucinating, combative, pulling on air sampling and monitoring and iv. Medicated with scheduled PHeno and one time dose as per MD order. Pt easy to arouse, uncooperative,
[2022-03-04] MEDS: PHENobarbitaL sodium 130 MG/ML VIAL IM Q3Hx2 170 MG IM (00:40)
--- NOTE | 2022-03-04 04:00 | MHC.PIE ---
P.WITHDRAWAL I.PT BECOMING INCREASINGLY RESTLESS,CIWA SCORE UP TO 10.HR 120'S.DR AARON NOTIFIED.EXTRA DOSE OF IM PHENOBARB 130MG ORDERED. E.GIVEN WITH GOOD EFFECT.CONT TO MONITOR.
[2022-03-04] MEDS: PHENobarbitaL sodium 130 MG/ML VIAL IM ×2 (04:03→09:53)
[2022-03-04] MEDS: 0.9 % Sodium Chloride 1,000 ML 100 ML IVCONT ×2 (06:00→12:37)
[2022-03-04 08:29] LABS: Anion Gap 16 (12-20); Blood Urea Nitrogen 7 mg/dL (9-16); Calcium 8.8 mg/dL (8.4-10.2); Carbon Dioxide 21 mmol/L (22-29); Chloride 105 mmol/L (96-108); Creatinine Clr Calc Pharmacy 106.9; Estimated Glomerular Filt Rate > 60; Glucose Random 90 mg/dL (60-115); Potassium 3.9 mmol/L (3.3-5.1); Sodium 138 mmol/L (135-145)
[2022-03-04] MEDS: Thiamine HCL 100 MG in 0.9 % Sodium Chloride 100 ML IV (09:52)
[2022-03-04] MEDS: 0.9 % Sodium Chloride Flush 3 ML SYRINGE IVFLUSH ×2 (09:52→20:15)
[2022-03-04] MEDS: cefTRIAXone sodium 1 GM in 0.9 % Sodium Chloride 50 ML IV (11:26)
[2022-03-04] MEDS: Albuterol/Iprat 2.5/0.5MG 3 ML AMPUL.NEB INHALE (12:34)
--- NOTE | 2022-03-04 12:42 | PM.NEUROCN ---
History of Present Illness Data of Consult Service Date: 03/04/22 Primary Care Provider: Unknown Physician HPI Reason for consult: Seizure disorder 66 years old man who probably has underlying history of alcohol abuse and dementia and seizure disorder. He was brought to hospital after he was noted to be seizing. Details were not clear and he was unable to provide any history. He was noted to be encephalopathic and admitted. Because of concern of alcohol withdrawal, he was put on phenobarbital protocol. Review of Systems Review of Systems: Could not be done with [facility] Past Medical History Medical History Alcohol abuse Cardiomyopathy Cellulitis Dementia DVT (deep venous thrombosis) DVT of deep femoral vein GERD (gastroesophageal reflux disease) Hepatitis C antibody positive in blood Hypertension Seizure Family History Family History Father No problems noted. Mother No problems noted. Brother Cancer Sister No problems noted. Surgical History Surgical History No pertinent past surgical history Social History Social History Household Members: Unknown / Unable to assess Housing: Unknown / Unable to assess Unable to assess alcohol history related to: Unknown Alcohol intake: current Alcohol intake frequency: a few times a week Alcohol type: beer Patient Tobacco Use Status: Tobacco use Unknown Cigarettes Per Day: 7 Use of substances other than those prescribed or required for medical reasons: Unknown Substance Use Type: Unknown Currently Displaying Signs/Symptoms of Drug Intoxication Withdrawal: No Advance Directives: Yes Advance Directives on File: Yes Advance Directives Date on File: 10/11/20 Recently lost weight without trying: Unsure service: No Current occupational status: unemployed and disabled Meds Allergies Allergy/AdvReac Type Severity Reaction Status Date / Time No Known Allergies Allergy Verified 12/29/21 12:36 [No Known Allergies*] Active Medications: Current Medications Albuterol/Ipratropium (Albuterol/Iprat 2.5/0.5mg 3 Ml Ampul.Neb) 3 ml INHALE RQ4H WHILE AWAKE [facility] Last Admin: 03/04/22 12:34 Dose: 3 ml Amlodipine Besylate (Amlodipine Besylate 10 Mg Tablet) 10 mg PO DAILY [facility]; Protocol Last Admin: 03/04/22 11:12 Dose: Not Given Apixaban (Apixaban 5 Mg Tablet) 5 mg PO BID [facility] Last Admin: 03/04/22 11:12 Dose: Not Given Atorvastatin Calcium (Atorvastatin Calcium 40 Mg Tablet) 40 mg PO BEDTIME [facility] Last Admin: 03/03/22 20:46 Dose: 40 mg Cyanocobalamin (Cyanocobalamin (Vitamin B-12) 1,000 Mcg Tablet) 1,000 mcg PO DAILY [facility] Last Admin: 03/04/22 11:12 Dose: Not Given Docusate Sodium (Docusate Sodium 100 Mg Capsule) 100 mg PO DAILY PRN PRN Reason: Constipation Gabapentin (Gabapentin 600 Mg Tablet) 600 mg PO BID [facility] Last Admin: 03/04/22 11:13 Dose: Not Given Ceftriaxone Sodium 1 gm/ (Sodium Chloride) 50 mls @ 100 mls/hr IV Q24H [facility] Last Infusion: 03/04/22 12:21 Dose: Infused Thiamine HCl 100 mg/ Sodium (Chloride) 101 mls @ 202 mls/hr IV DAILY [facility] Last Infusion: 03/04/22 11:26 Dose: Infused Folic Acid 1 mg/ Sodium (Chloride) 50.2 mls @ 100.4 mls/hr IV DAILY [facility] Last Infusion: 03/03/22 19:00 Dose: Infused Sodium Chloride (Ns) 1,000 mls @ 100 mls/hr IVCONT .Q10H [facility] Last Admin: 03/04/22 12:37 Dose: 100 mls/hr Phenytoin Sodium 50 mg/ Sodium (Chloride) 51 mls @ 105 mls/hr IV BID@0100,1300 [facility] Last Infusion: 03/04/22 02:06 Dose: Infused Lisinopril (Lisinopril 5 Mg Tablet) 5 mg PO DAILY [facility]; Protocol Last Admin: 03/04/22 11:13 Dose: Not Given Metoprolol Succinate (Metoprolol Succinate Er 25 Mg Tab.Er.24h) 25 mg PO DAILY [facility]; Protocol Last Admin: 03/04/22 11:15 Dose: Not Given Olanzapine (Olanzapine 10 Mg Tablet) 20 mg PO BEDTIME [facility] Last Admin: 03/03/22 20:46 Dose: 20 mg Omeprazole (Omeprazole 20 Mg Capsule.Dr) 20 mg PO DAILY@0630 [facility] Last Admin: 03/04/22 06:00 Dose: Not Given Ondansetron HCl (Ondansetron Hcl 4 Mg/2 Ml Vial) 4 mg IVPUSH Q8H PRN PRN Reason: Nausea and Vomiting Pharmacy Consult (Consult Rx Perform Med Rec) 1 each MISCELLANE ONCE PRN PRN Reason: Consult order Pharmacy Consult (Consult Rx Etoh Phenob Im/Po) 1 each MISCELLANE ONCE PRN; Protocol PRN Reason: Consult order Phenobarbital (Phenobarbital 15 Mg Tablet) 45 mg PO BID [facility] Stop: 03/05/22 21:01 Last Admin: 03/04/22 11:15 Dose: Not Given Phenobarbital (Phenobarbital 30 Mg Tablet) 30 mg PO BID [facility] Stop: 03/07/22 21:01 Phenobarbital (Phenobarbital 15 Mg Tablet) 15 mg PO DAILY [facility] Stop: 03/09/22 09:01 Sertraline HCl (Sertraline Hcl 25 Mg Tablet) 25 mg PO DAILY [facility] Last Admin: 03/04/22 11:15 Dose: Not Given Sodium Chloride (0.9 % Sodium Chloride Flush 3 Ml Syringe) 3 ml IVFLUSH QSHIFT [facility] Last Admin: 03/04/22 09:52 Dose: 3 ml Tamsulosin HCl (Tamsulosin Hcl 0.4 Mg Capsule) 0.4 mg PO DAILY [facility] Last Admin: 03/04/22 11:15 Dose: Not Given Tiotropium Docena (Tiotropium Docena 18 Mcg Cap.W.Dev) 1 puff INHALE RDAILY [facility] Last Admin: 03/04/22 08:46 Dose: Not Given Vitamin D (Cholecalciferol (Vitamin D3) 25 Mcg Tablet) 50 mcg PO DAILY [facility] Last Admin: 03/04/22 11:12 Dose: Not Given Home Medications Medication Instructions Recorded Confirmed Last Taken Type atorvastatin 40 mg tablet 40 mg PO BEDTIME 04/01/20 03/03/22 Unknown History cholecalciferol (vitamin D3) 50 50 mcg PO DAILY 04/01/20 03/03/22 Unknown History mcg (2,000 unit) capsule gabapentin 600 mg tablet 600 mg PO BID 04/01/20 03/03/22 Unknown History metoprolol succinate 25 mg 25 mg PO DAILY 04/01/20 03/03/22 Unknown History tablet,extended release 24 hr phenytoin 50 mg chewable tablet 50 mg PO BID 04/01/20 03/03/22 Unknown History tamsulosin 0.4 mg capsule 0.4 mg PO DAILY 04/01/20 03/03/22 Unknown History umeclidinium 62.5 mcg/actuation 1 puff inhalation DAILY 09/26/20 03/03/22 Unknown History blister powder for inhalation (Incruse Ellipta) sertraline 25 mg tablet 1 tab PO DAILY 06/23/21 03/03/22 Unknown History olanzapine 20 mg tablet 1 tab PO BEDTIME 09/02/21 03/03/22 Unknown History apixaban 5 mg tablet (Eliquis) 5 mg PO BID 11/04/21 03/03/22 Unknown History cyanocobalamin (vitamin B-12) 1,000 mcg PO QAM 11/04/21 03/03/22 Unknown History 1,000 mcg tablet lisinopril 5 mg tablet 5 mg PO DAILY 11/04/21 03/03/22 Unknown History Physical Exam Vital Signs: Vital Signs: Last Vital Signs Temp 98.9 F 03/04/22 12:00 Pulse 103 H 03/04/22 12:34 Resp 18 03/04/22 12:34 BP 206/110 H 03/04/22 12:32 Pulse Ox 96 03/04/22 12:00 O2 Del Method 03/04/22 12:00 BMI result Body Mass Index 25.8 Neuro: Other: very drowsy and mumbling. He did not comprehend and did not follow commands though cage in early he had said something that made sense. He only spoke in Slovak. There was no seizure-like movement or nystagmus. There was no obvious focal paralysis. Deep tendon reflexes were absent. Exam was limited. He did not open his eye even when I was trying to open at forcibly. Results Labs CBC & Chem 7: 03/03/22 10:37 03/04/22 07:10 Labs: BMP 03/04/22 07:10 Sodium 138 Potassium 3.9 Chloride 105 Carbon Dioxide 21 L BUN 7 L Creatinine 0.67 Calcium 8.8 D Cardiac Enzymes 03/04/22 Range/Units 07:10 Total Creatine Kinase 1505 H (38-174) U/L Mild generalized cerebral atrophy noted on CT scan. Microbiology Microbiology Results: Microbiology 03/03/22 10:37 Blood - Venous Blood Culture - Preliminary No growth after 24 hours. Assessment and Plan (1) Encephalopathy: Status: Acute Multifactorial encephalopathy including infection recent seizure and alcohol abuse with possibility of dementia. At this time mainstay of management is alcohol withdrawal management, hydration and management of infection, and continuing a broad-spectrum antiepileptic such as levetiracetam 500 mg twice a day. Dilantin type of medicines are all with streaky with this type of patient and I recommend avoiding it. Procedures Date of Service Date of Service: 03/04/22
[2022-03-04] MEDS: Folic Acid 1 MG in 0.9 % Sodium Chloride 50 ML 100 MG IV (13:47)
--- NOTE | 2022-03-04 14:35 | MHC.CM.PN ---
spoke with pts hcp who explins that pt is covid vax and will probabaly need rehab referrals contreras be made
[2022-03-04] MEDS: Dextrose 5 % and Lactated Ring 1,000 ML 100 ML IVCONT (15:35)
[2022-03-04] MEDS: levETIRAcetam in NaCl (iso-os) 500 MG/100 ML PIGGYBACK 400 MG IV (15:35)
--- NOTE | 2022-03-04 15:45 | P.PNIM_ITS ---
Subjective Subjective Date of Service: 03/04/22 Interval History: Remains confused mumbling nonsensical Review of Systems Unable to obtain Physical Exam Vital Signs: Vital Signs: Last Vital Signs Temp 96.0 F L 03/04/22 15:39 Pulse 136 H 03/04/22 15:39 Resp 17 03/04/22 15:39 BP 180/97 H 03/04/22 15:39 Pulse Ox 95 03/04/22 15:39 O2 Del Method 03/04/22 15:39 BMI result Body Mass Index 25.8 Const: Other: Awake; mumbling Resp: Other: Clear to auscultation bilaterally no rales rhonchi or wheezes Cardio: Other: No S4; positive S1-S2 no S3 murmurs rubs or gallops GI: Other: Soft nontender nondistended normoactive bowel sounds Extrem: Other: No edema bilaterally Objective Data Active Medications Albuterol/Ipratropium (Albuterol/Iprat 2.5/0.5mg 3 Ml Ampul.Neb) 3 ml INHALE RQ4H WHILE AWAKE [facility] Last Admin: 03/04/22 12:34 Dose: 3 ml Documented By: RHYS Amlodipine Besylate (Amlodipine Besylate 10 Mg Tablet) 10 mg PO DAILY [facility]; Protocol Last Admin: 03/04/22 11:12 Dose: Not Given Documented By: JIM Non-Admin Reason: NPO Apixaban (Apixaban 5 Mg Tablet) 5 mg PO BID [facility] Last Admin: 03/04/22 11:12 Dose: Not Given Documented By: JIM Non-Admin Reason: NPO Atorvastatin Calcium (Atorvastatin Calcium 40 Mg Tablet) 40 mg PO BEDTIME [facility] Last Admin: 03/03/22 20:46 Dose: 40 mg Documented By: RUBI Cyanocobalamin (Cyanocobalamin (Vitamin B-12) 1,000 Mcg Tablet) 1,000 mcg PO DAILY [facility] Last Admin: 03/04/22 11:12 Dose: Not Given Documented By: JIM Non-Admin Reason: NPO Docusate Sodium (Docusate Sodium 100 Mg Capsule) 100 mg PO DAILY PRN PRN Reason: Constipation Gabapentin (Gabapentin 600 Mg Tablet) 600 mg PO BID [facility] Last Admin: 03/04/22 11:13 Dose: Not Given Documented By: JIM Non-Admin Reason: NPO Ceftriaxone Sodium 1 gm/ (Sodium Chloride) 50 mls @ 100 mls/hr IV Q24H [facility] Last Infusion: 03/04/22 12:21 Dose: 0 mls/hr Documented By: JIM Thiamine HCl 100 mg/ Sodium (Chloride) 101 mls @ 202 mls/hr IV DAILY [facility] Last Infusion: 03/04/22 11:26 Dose: 0 mls/hr Documented By: JIM Folic Acid 1 mg/ Sodium (Chloride) 50.2 mls @ 100.4 mls/hr IV DAILY [facility] Last Infusion: 03/04/22 14:54 Dose: 0 mls/hr Documented By: JIM Sodium Chloride (Ns) 1,000 mls @ 100 mls/hr IVCONT .Q10H [facility] Last Admin: 03/04/22 12:37 Dose: 100 mls/hr Documented By: JIM Levetiracetam (Keppra) 500 mg in 100 mls @ 400 mls/hr IV Q12H [facility] Last Admin: 03/04/22 15:35 Dose: 400 mls/hr Documented By: JIM Dextrose/Lactated Ringer's (D5lr) 1,000 mls @ 100 mls/hr IVCONT .Q10H [facility] Last Admin: 03/04/22 15:35 Dose: 100 mls/hr Documented By: JIM Lisinopril (Lisinopril 5 Mg Tablet) 5 mg PO DAILY [facility]; Protocol Last Admin: 03/04/22 11:13 Dose: Not Given Documented By: JIM Non-Admin Reason: NPO Metoprolol Succinate (Metoprolol Succinate Er 25 Mg Tab.Er.24h) 25 mg PO DAILY [facility]; Protocol Last Admin: 03/04/22 11:15 Dose: Not Given Documented By: JIM Non-Admin Reason: NPO Olanzapine (Olanzapine 10 Mg Tablet) 20 mg PO BEDTIME [facility] Last Admin: 03/03/22 20:46 Dose: 20 mg Documented By: RUBI Omeprazole (Omeprazole 20 Mg Capsule.Dr) 20 mg PO DAILY@0630 [facility] Last Admin: 03/04/22 06:00 Dose: Not Given Documented By: ROSLYN Non-Admin Reason: NPO Ondansetron HCl (Ondansetron Hcl 4 Mg/2 Ml Vial) 4 mg IVPUSH Q8H PRN PRN Reason: Nausea and Vomiting Pharmacy Consult (Consult Rx Perform Med Rec) 1 each MISCELLANE ONCE PRN PRN Reason: Consult order Pharmacy Consult (Consult Rx Etoh Phenob Im/Po) 1 each MISCELLANE ONCE PRN; Protocol PRN Reason: Consult order Phenobarbital (Phenobarbital 15 Mg Tablet) 45 mg PO BID [facility] Stop: 03/05/22 21:01 Last Admin: 03/04/22 11:15 Dose: Not Given Documented By: JIM Non-Admin Reason: NPO Phenobarbital (Phenobarbital 30 Mg Tablet) 30 mg PO BID [facility] Stop: 03/07/22 21:01 Phenobarbital (Phenobarbital 15 Mg Tablet) 15 mg PO DAILY [facility] Stop: 03/09/22 09:01 Sertraline HCl (Sertraline Hcl 25 Mg Tablet) 25 mg PO DAILY [facility] Last Admin: 03/04/22 11:15 Dose: Not Given Documented By: JIM Non-Admin Reason: NPO Sodium Chloride (0.9 % Sodium Chloride Flush 3 Ml Syringe) 3 ml IVFLUSH QSHIFT [facility] Last Admin: 03/04/22 09:52 Dose: 3 ml Documented By: JIM Tamsulosin HCl (Tamsulosin Hcl 0.4 Mg Capsule) 0.4 mg PO DAILY [facility] Last Admin: 03/04/22 11:15 Dose: Not Given Documented By: JIM Non-Admin Reason: NPO Tiotropium [place] (Tiotropium [place] 18 Mcg Cap.W.Dev) 1 puff INHALE RDAILY [facility] Last Admin: 03/04/22 08:46 Dose: Not Given Documented By: RHYS Non-Admin Reason: Med Not Available Vitamin D (Cholecalciferol (Vitamin D3) 25 Mcg Tablet) 50 mcg PO DAILY [facility] Last Admin: 03/04/22 11:12 Dose: Not Given Documented By: JIM Non-Admin Reason: NPO Labs CBC & Chem 7: 03/03/22 10:37 03/04/22 07:10 Labs: Laboratory Results - last 24 hr 03/03/22 03/03/22 03/04/22 10:41 15:57 07:10 Anion Gap 16 Estim Creat Clear Calc 106.9 Estimated GFR > 60 Random Glucose 90 Calcium 8.8 D Total Creatine Kinase 1505 H Urine Opiates Screen Not Detected Urine Fentanyl Screen Not Detected Ur Barbiturates Screen Not Detected Phenytoin 1.3 L* Ur Phencyclidine Scrn Not Detected Ur Amphetamines Screen Not Detected U Benzodiazepines Scrn Not Detected Urine Cocaine Screen Not Detected U Marijuana (THC) Screen Not Detected Microbiology Microbiology Results: Microbiology 03/03/22 Unknown Urine Culture - Preliminary Urine Catheterized - Straight Catheter Culture in progress. 03/03/22 10:37 Blood Culture - Preliminary Blood - Venous No growth after 24 hours. 03/03/22 10:37 Blood Culture - Preliminary Blood - Venous No growth after 24 hours. Assessment and Plan (1) Encephalopathy: Status: Acute (2) UTI (urinary tract infection): Status: Acute (3) Alcohol withdrawal: Status: Acute Plan 65-year-old male with a past medical history of hypertension, hyperlipidemia, cardiomyopathy, history of seizures, history of prior DVT on Eliquis, history of alcohol abuse on naltrexone, and encephalopathy admitted for seizure with question of alcohol withdrawal, UTI with sepsis, and encephalopathy 1.Encephalopathy(alcohol withdrawal/phenytoin/UTI ) -as per Neurology; DC Dilantin in favor of levetiracem -follow clinical response 2.Alcohol withdrawal -CIWA scale -phenobarb per protocol -seizure precautions -IV thiamine and folic acid -IVF with LR @100mls/hr 3.UTI -IV ceftriaxone -await culture 4.LLE cellulitis -IV ceftriaxone 5.HTN -IV hydralazine pending speech eval -continue home med 6.History DVT -venous duplex negative -continue Eliquis Eliquis Full code Patient requires inpatient stay to encephalopathy of unclear etiology on ph enobarb per protocol for suspected alcohol withdrawal and hypertensive urgency requiring IV antihypertensives. Quality Stroke Does the patient have a stroke diagnosis?: No VTE Prior VTE?: No VTE Risk Level:: Medical - moderate - high VTE Device Contraindication: Treatment Not Indicated VTE Drug Contraindication: N/A - Med Ordered
--- NOTE | 2022-03-04 16:37 | MHC.SLORD ---
Addendum entered and electronically signed by Alison Hunter MA, CCC-ELECTRONIC TRANSACTION IMPLEMENTER 03/04/22 16:47: D.S. Original Note: Speech Language Pathology Order Status: ELECTRONIC TRANSACTION IMPLEMENTER swallow evaluation ordered. Per MD, pt can be seen tomorrow morning for evaluation. Pt seen by speech in August 2021 hospitalization; recommended NDD2 and thin liquids at this time. ELECTRONIC TRANSACTION IMPLEMENTER to evaluate tomorrow.
[2022-03-04] MEDS: PHENobarbitaL sodium 130 MG/ML VIAL IVPUSH (17:53)
[2022-03-04] MEDS: Metoprolol Tartrate 5 MG/5 ML VIAL IVPUSH (17:54)
[2022-03-05] VITALS (8 sets, daily range): BP systolic 124–164; BP diastolic 57–88; PULSE 84–132; RESP 16–24; TEMP 35.8–37.7; O2SAT 91–99
[2022-03-05 08:22] LABS: Basophils Absolute Auto 0.1 X10*3/uL (0.0-0.2); Basophils Percent Auto 0.5 % (0-2); Eosinophils Absolute Auto 0.3 X10*3/uL (0.0-0.4); Eosinophils Percent Auto 2.5 % (0-4); Hemoglobin 13.6 g/dl (14.0-18.0); Imm Gran Abs Auto 0.02 X10*3/uL (0.00-0.03); Imm Gran Pct Auto 0.2 % (0.0-0.4); Lymphocytes Absolute Auto 3.2 X10*3/uL (1.2-4.9); Lymphocytes Percent Auto 25.7 % (20-40); MANUAL DIFF FLAG SCAN; Mean Corpuscular HGB Conc 33.2 g/dl (31.0-36.0); Mean Corpuscular Volume 90.3 fL (80.0-98.0); Mean Platelet Volume 8.8 fL (9.4-12.4); Monocytes Absolute Auto 1.5 X10*3/uL (0.1-1.2); Monocytes Percent Auto 12.1 % (2-11); Neutrophils Absolute Auto 7.3 x10*3/uL (2.0-8.3); Platelet Count 276 X10*3/uL (160-400); Red Blood Count 4.54 X10*6/uL (4.60-5.80); Red Cell Distribution Width 12.4 % (11.0-16.0); SCAN SMEAR FLAG 1; White Blood Count 12.4 X10*3/uL (4.8-10.8)
[2022-03-05 08:46] LABS: Alanine Aminotransferase 13 U/L (0-40); Albumin Level 3.7 g/dL (3.5-5.0); Alkaline Phosphatase 98 U/L (39-117); Anion Gap 21 (12-20); Aspartate Amino Transferase 30 U/L (5-37); Bilirubin Total 0.8 mg/dL (0.0-1.0); Blood Urea Nitrogen 7 mg/dL (9-16); Calcium 8.9 mg/dL (8.4-10.2); Carbon Dioxide 18 mmol/L (22-29); Chloride 102 mmol/L (96-108); Creatinine Clr Calc Pharmacy 102.4; Estimated Glomerular Filt Rate > 60; Glucose Fasting 82 mg/dL (60-99); Potassium 4.8 mmol/L (3.3-5.1); Sodium 136 mmol/L (135-145); Total Protein 7.3 g/dL (6.5-8.0)
[2022-03-05 08:50] LABS: SLIDE REVIEW VERIFIED
--- NOTE | 2022-03-05 10:57 | MHC.SL.SWA ---
Speech Pathologist Impression: Risk of Aspiration Due to: Neurological Condition Reduced Cognition Dysphasia Diet Status: Moderate Oral Phase Dysphagia due to edentulous state and disorganized lingual pattern, including prominent tongue thrust on swallow. Dementia/disorientation. Recommend Puree (NDD1) w/ THIN liquids, pills crushed in puree. Liquid Consistency and Strategies for Safe Swallow: Liquid Intake Recommendation: Thin Liquid Intake Strategies: Small Sips No Straws Solid Food Consistency: Dietary Recommendations: Pureed (NDD1) Additional Modifications to Solid Foods: Alternate liquids and solids to clear any oral residual, oral checks before presenting more food, minimize distractions, 1-1 feed. Oral Medication Intake: Crushed with Puree Please contact the pharmacy regarding appropriate crushable or liquid drug formulations that are available whenever modified delivery is recommended. Compensatory Strategies and Precautions to be Taken for Safe Swallow: Sitting Upright (90 deg) Liquids from Cup Small Bites and Sips Alternate Liquids/Solids Rate of Ingestion Change Oral Check Supervision While Eating and Drinking for Safe Swallow: Total Assistance (1:1) Foods to Avoid: Sicky or congealed purees. Swallowing Recommended Treatments: Compens. Strategy Educat. Recommendation for Speech: Inpatient Speech Therapy Comment: Pt presents with a moderate oral phase dysphagia due to edentulous state and disorganized lingual pattern, including prominent tongue thrust on swallow. Pt is additionally highly disoriented and lethargic. Recommend START diet of Puree (NDD1) with THIN liquids, pills crushed in puree. Patient currently will required 1-1 feed, do not attempt or discontinue if patient is lethargic, unable to sustain attention to eating, aspiration precaustions apply. STIPPLER will continue to follow, monitor toleration of diet, re-assess swallow for advancement if warranted. , RD notified of recommendations by secure text, discussed with RN in person. Frequency/Duration: M-F while inpatient. Date Range for Service Req: Timeline to reassess: Clinical Geneticist Clinican/Clinical Fellow: No Supervisory Statement: I have reviewed and agree with the student/clinical fellow's documentation: N/A Speech Language Pathologist: Ranjana Byrnes M.A., [facility]
[2022-03-05] MEDS: Dextrose 5 % and Lactated Ring 1,000 ML 100 ML IVCONT (11:38)
[2022-03-05] MEDS: Thiamine HCL 100 MG in 0.9 % Sodium Chloride 100 ML IV (11:57)
[2022-03-05] MEDS: PHENobarbitaL 15 MG TABLET 45 MG PO (12:00)
[2022-03-05] MEDS: Tamsulosin HCL 0.4 MG CAPSULE PO (12:00)
[2022-03-05] MEDS: Cyanocobalamin (Vitamin B-12) 1,000 MCG TABLET 1000 MCG PO (12:00)
[2022-03-05] MEDS: Apixaban 5 MG TABLET PO ×2 (12:00→22:02)
[2022-03-05] MEDS: Cholecalciferol (Vitamin D3) 25 MCG TABLET 50 MCG PO (12:00)
[2022-03-05] MEDS: Sertraline HCL 25 MG TABLET PO (12:00)
[2022-03-05] MEDS: amLODIPine Besylate 10 MG TABLET PO (12:00)
[2022-03-05] MEDS: lisinopriL 5 MG TABLET PO (12:01)
[2022-03-05] MEDS: Gabapentin 600 MG TABLET PO ×2 (12:01→22:05)
[2022-03-05] MEDS: 0.9 % Sodium Chloride Flush 3 ML SYRINGE IVFLUSH (12:01)
--- NOTE | 2022-03-05 13:26 | P.PNIM_ITS ---
Subjective Subjective Date of Service: 03/05/22 Interval History: Remains somnolent but arousable. Less combative today Review of Systems Unable to obtain Physical Exam Vital Signs: Vital Signs: Last Vital Signs Temp 99.8 F 03/05/22 11:29 Pulse 127 H 03/05/22 07:58 Resp 16 03/05/22 11:29 BP 151/57 H 03/05/22 11:29 Pulse Ox 91 L 03/05/22 11:29 O2 Del Method 03/05/22 11:29 BMI result Body Mass Index 25.8 Const: Other: Awake; mumbling Resp: Other: Clear to auscultation bilaterally no rales rhonchi or wheezes Cardio: Other: No S4; positive S1-S2 no S3 murmurs rubs or gallops GI: Other: Soft nontender nondistended normoactive bowel sounds Extrem: Other: No edema bilaterally Objective Data Active Medications Albuterol/Ipratropium (Albuterol/Iprat 2.5/0.5mg 3 Ml Ampul.Neb) 3 ml INHALE RQ4H WHILE AWAKE [facility] Last Admin: 03/05/22 11:37 Dose: Not Given Documented By: YVAN Non-Admin Reason: See Note Amlodipine Besylate (Amlodipine Besylate 10 Mg Tablet) 10 mg PO DAILY [facility]; Protocol Last Admin: 03/05/22 12:00 Dose: 10 mg Documented By: KISHOR Apixaban (Apixaban 5 Mg Tablet) 5 mg PO BID [facility] Last Admin: 03/05/22 12:00 Dose: 5 mg Documented By: KISHOR Atorvastatin Calcium (Atorvastatin Calcium 40 Mg Tablet) 40 mg PO BEDTIME [facility] Last Admin: 03/04/22 21:22 Dose: Not Given Documented By: CHINMAY Non-Admin Reason: NPO Cyanocobalamin (Cyanocobalamin (Vitamin B-12) 1,000 Mcg Tablet) 1,000 mcg PO DAILY [facility] Last Admin: 03/05/22 12:00 Dose: 1,000 mcg Documented By: KISHOR Docusate Sodium (Docusate Sodium 100 Mg Capsule) 100 mg PO DAILY PRN PRN Reason: Constipation Gabapentin (Gabapentin 600 Mg Tablet) 600 mg PO BID [facility] Last Admin: 03/05/22 12:01 Dose: 600 mg Documented By: KISHOR Ceftriaxone Sodium 1 gm/ (Sodium Chloride) 50 mls @ 100 mls/hr IV Q24H [facility] Last Infusion: 03/04/22 12:21 Dose: 0 mls/hr Documented By: JIM Thiamine HCl 100 mg/ Sodium (Chloride) 101 mls @ 202 mls/hr IV DAILY [facility] Last Admin: 03/05/22 11:57 Dose: 100 mls/hr Documented By: KISHOR Folic Acid 1 mg/ Sodium (Chloride) 50.2 mls @ 100.4 mls/hr IV DAILY [facility] Last Infusion: 03/04/22 14:54 Dose: 0 mls/hr Documented By: JIM Levetiracetam (Keppra) 500 mg in 100 mls @ 400 mls/hr IV Q12H [facility] Last Admin: 03/05/22 02:26 Dose: Not Given Documented By: CHINMAY Non-Admin Reason: No Access Dextrose/Lactated Ringer's (D5lr) 1,000 mls @ 100 mls/hr IVCONT .Q10H [facility] Last Admin: 03/05/22 11:38 Dose: 100 mls/hr Documented By: KISHOR Lisinopril (Lisinopril 5 Mg Tablet) 5 mg PO DAILY [facility]; Protocol Last Admin: 03/05/22 12:01 Dose: 5 mg Documented By: KISHOR Metoprolol Succinate (Metoprolol Succinate Er 25 Mg Tab.Er.24h) 25 mg PO DAILY [facility]; Protocol Last Admin: 03/05/22 12:55 Dose: Not Given Documented By: KISHOR Non-Admin Reason: unable to crush ER,waiting for new order Olanzapine (Olanzapine 10 Mg Tablet) 20 mg PO BEDTIME [facility] Last Admin: 03/04/22 21:22 Dose: Not Given Documented By: CHINMAY Non-Admin Reason: NPO Omeprazole (Omeprazole 20 Mg Capsule.Dr) 20 mg PO DAILY@0630 [facility] Last Admin: 03/05/22 05:15 Dose: Not Given Documented By: CHINMAY Non-Admin Reason: NPO Ondansetron HCl (Ondansetron Hcl 4 Mg/2 Ml Vial) 4 mg IVPUSH Q8H PRN PRN Reason: Nausea and Vomiting Pharmacy Consult (Consult Rx Perform Med Rec) 1 each MISCELLANE ONCE PRN PRN Reason: Consult order Pharmacy Consult (Consult Rx Etoh Phenob Im/Po) 1 each MISCELLANE ONCE PRN; Protocol PRN Reason: Consult order Phenobarbital (Phenobarbital 15 Mg Tablet) 45 mg PO BID [facility] Stop: 03/05/22 21:01 Last Admin: 03/05/22 12:00 Dose: 45 mg Documented By: KISHOR Phenobarbital (Phenobarbital 30 Mg Tablet) 30 mg PO BID [facility] Stop: 03/07/22 21:01 Phenobarbital (Phenobarbital 15 Mg Tablet) 15 mg PO DAILY [facility] Stop: 03/09/22 09:01 Sertraline HCl (Sertraline Hcl 25 Mg Tablet) 25 mg PO DAILY [facility] Last Admin: 03/05/22 12:00 Dose: 25 mg Documented By: KISHOR Sodium Chloride (0.9 % Sodium Chloride Flush 3 Ml Syringe) 3 ml IVFLUSH QSHIFT [facility] Last Admin: 03/05/22 12:01 Dose: 3 ml Documented By: KISHOR Tamsulosin HCl (Tamsulosin Hcl 0.4 Mg Capsule) 0.4 mg PO DAILY [facility] Last Admin: 03/05/22 12:00 Dose: 0.4 mg Documented By: KISHOR Tiotropium Lane (Tiotropium Lane 18 Mcg Cap.W.Dev) 1 puff INHALE RDAILY [facility] Last Admin: 03/05/22 07:54 Dose: 1 puff Documented By: YVAN Vitamin D (Cholecalciferol (Vitamin D3) 25 Mcg Tablet) 50 mcg PO DAILY [facility] Last Admin: 03/05/22 12:00 Dose: 50 mcg Documented By: KISHOR Labs CBC & Chem 7: 03/05/22 07:52 03/05/22 07:52 Labs: Laboratory Results - last 24 hr 03/05/22 03/05/22 07:52 07:52 MCV 90.3 MCH 30.0 MCHC 33.2 RDW 12.4 Plt Count 276 MPV 8.8 L Immature Gran % (Auto) 0.2 Neut % (Auto) 59.0 Lymph % (Auto) 25.7 [place] % (Auto) 12.1 H Eos % (Auto) 2.5 Baso % (Auto) 0.5 Lymph # (Auto) 3.2 [place] # (Auto) 1.5 H Eos # (Auto) 0.3 Baso # (Auto) 0.1 Abs Immat Gran (auto) 0.02 Absolute Neuts (auto) 7.3 Absolute Nucleated RBC 0.000 Nucleated RBC % (auto) 0.0 Smear Tech's Comments VERIFIED Anion Gap 21 H Estim Creat Clear Calc 102.4 Estimated GFR > 60 Fasting Glucose 82 Calcium 8.9 Total Bilirubin 0.8 AST 30 ALT 13 Alkaline Phosphatase 98 Total Protein 7.3 Albumin 3.7 Microbiology Microbiology Results: Microbiology 03/03/22 10:37 Blood Culture - Preliminary Blood - Venous No growth after 48 hours. 03/03/22 10:37 Blood Culture - Preliminary Blood - Venous No growth after 48 hours. 03/03/22 Unknown Urine Culture - Preliminary Urine Catheterized - Straight Catheter Gram positive cocci Assessment and Plan (1) Encephalopathy: Status: Acute (2) Alcohol withdrawal: Status: Acute Plan 65-year-old male with a past medical history of hypertension, hyperlipidemia, cardiomyopathy, history of seizures, history of prior DVT on Eliquis, history of alcohol abuse on naltrexone, and encephalopathy admitted for seizure with question of alcohol withdrawal, UTI with sepsis, and encephalopathy 1.Encephalopathy(alcohol withdrawal/phenytoin/UTI ) -tolerant of Keppra -no seizure activity -follow clinical response 2.Alcohol withdrawal -CIWA scale -phenobarb per protocol -seizure precautions -IV thiamine and folic acid -IVF with LR @100mls/hr 3.UTI -IV ceftriaxone -await culture... GPC thus far 4.LLE cellulitis -IV ceftriaxone 5.HTN -speech eval done... Restart meds -continue home med 6.History DVT -venous duplex negative -continue Eliquis Eliquis Full code Patient requires inpatient stay to encephalopathy of unclear etiology on phenobarb per protocol for suspected alcohol withdrawal and Quality Stroke Does the patient have a stroke diagnosis?: No VTE Prior VTE?: No VTE Risk Level:: Medical - moderate - high VTE Device Contraindication: Treatment Not Indicated VTE Drug Contraindication: N/A - Med Ordered
[2022-03-05] MEDS: cefTRIAXone sodium 1 GM in 0.9 % Sodium Chloride 50 ML IV (16:02)
--- NOTE | 2022-03-05 16:26 | PC.NURSE ---
Unable to assess patient's veins for midline or peripheral IV placement with ultrasound guidance due to patient restlessness. Dr Gilmore made aware at 15:00
[2022-03-05] MEDS: levETIRAcetam 500 MG TABLET PO (22:01)
[2022-03-05] MEDS: Metoprolol Tartrate 25 MG TABLET PO (22:02)
[2022-03-05] MEDS: OLANZapine 10 MG TABLET 20 MG PO (22:03)
[2022-03-05] MEDS: Atorvastatin Calcium 40 MG TABLET PO (22:05)
[2022-03-06] VITALS (10 sets, daily range): BP systolic 139–169; BP diastolic 72–88; PULSE 58–105; RESP 16–20; TEMP 35.9–36.8; O2SAT 93–98
[2022-03-06] MEDS: 0.9 % Sodium Chloride Flush 3 ML SYRINGE IVFLUSH ×3 (00:16→17:00)
[2022-03-06] MEDS: Albuterol/Iprat 2.5/0.5MG 3 ML AMPUL.NEB INHALE ×3 (07:46→18:57)
[2022-03-06 08:25] LABS: MANUAL DIFF FLAG NO
[2022-03-06 08:28] LABS: Basophils Percent Auto 0.4 % (0-2); Eosinophils Absolute Auto 0.5 X10*3/uL (0.0-0.4); Eosinophils Percent Auto 4.5 % (0-4); Hematocrit 38.7 % (42.0-52.0); Hemoglobin 12.8 g/dl (14.0-18.0); Imm Gran Abs Auto 0.02 X10*3/uL (0.00-0.03); Imm Gran Pct Auto 0.2 % (0.0-0.4); Lymphocytes Absolute Auto 2.5 X10*3/uL (1.2-4.9); Mean Corpuscular HGB Conc 33.1 g/dl (31.0-36.0); Mean Corpuscular Hemoglobin 29.9 pg (27.0-33.0); Mean Corpuscular Volume 90.4 fL (80.0-98.0); Mean Platelet Volume 8.7 fL (9.4-12.4); Monocytes Absolute Auto 1.2 X10*3/uL (0.1-1.2); Monocytes Percent Auto 12.2 % (2-11); Neutrophils Absolute Auto 5.8 x10*3/uL (2.0-8.3); Neutrophils Percent Auto 57.7 % (45-73); Platelet Count 276 X10*3/uL (160-400); Red Blood Count 4.28 X10*6/uL (4.60-5.80); Red Cell Distribution Width 12.5 % (11.0-16.0); White Blood Count 10.1 X10*3/uL (4.8-10.8)
[2022-03-06 08:52] LABS: Alanine Aminotransferase 9 U/L (0-40); Albumin Level 3.6 g/dL (3.5-5.0); Alkaline Phosphatase 91 U/L (39-117); Anion Gap 17 (12-20); Aspartate Amino Transferase 19 U/L (5-37); Bilirubin Total 0.6 mg/dL (0.0-1.0); Blood Urea Nitrogen 12 mg/dL (9-16); Calcium 9.1 mg/dL (8.4-10.2); Carbon Dioxide 23 mmol/L (22-29); Chloride 102 mmol/L (96-108); Creatinine Clr Calc Pharmacy 98.1; Estimated Glomerular Filt Rate > 60; Glucose Fasting 92 mg/dL (60-99); Potassium 3.8 mmol/L (3.3-5.1); Sodium 138 mmol/L (135-145)
[2022-03-06 10:04] LABS: ABG Base Excess -2.9 mmol/L; ABG HCO3 20 mmol/L (22-26); ABG pCO2 30 mmHg (32-45); ABG pH 7.42 (7.35-7.45); ABG pO2 75 mmHg (83-108)
[2022-03-06 10:07] LABS: Ammonia 31 umol/L (13-55)
--- NOTE | 2022-03-06 10:19 | MHC.SLORD ---
Addendum entered and electronically signed by Alison Hunter MA, CCC-ENTRY LEVEL ADMINISTRATIVE ASSISTANT 03/06/22 11:39: D.S. Original Note: Speech Language Pathology Order Status: ENTRY LEVEL ADMINISTRATIVE ASSISTANT attempted to see pt for bedside dysphagia tx this morning. Staff present in room reporting pt is likely too lethargic to eat. Breakfast tray present and untouched with sealed juice container and puree eggs. ENTRY LEVEL ADMINISTRATIVE ASSISTANT attempted to see pt. He moved his head and arm to verbal stimuli, did not open eyes. Not appropriate for PO trials d/t lethargic state. ENTRY LEVEL ADMINISTRATIVE ASSISTANT will continue to follow.
--- NOTE | 2022-03-06 10:34 | P.PNIM_ITS ---
Subjective Subjective Date of Service: 03/06/22 Interval History: seen and examined this morning follow up for encephalopathy awakens to verbal stimuli, but only following some commands, appears sleepy, not answering questions unable to obtain ROS Neurologic Neurologic: Reports confusion Psychiatric Psychiatric: Reports confusion Physical Exam Vital Signs: Vital Signs: Last Vital Signs Temp 96.6 F L 03/06/22 07:31 Pulse 105 H 03/06/22 07:48 Resp 18 03/06/22 07:48 BP 169/81 H 03/06/22 07:31 Pulse Ox 96 03/06/22 07:31 O2 Del Method 03/06/22 07:31 BMI result Body Mass Index 25.8 Const: Other: lethargic, opens eyes with verbal stimuli. only following some commands, not answering questions General: confusion and lethargic Nutritional Appearance: average body habitus Orientation/consciousness: confusion and lethargic Resp: Effort & Inspection: normal respiratory effort, not tachypneic and no use of accessory muscles Cardio: Rate: regular rate Heart sounds: S1 normal heart sound present and S2 normal heart sound present GI: Inspection: No distended Palpation (GI): Soft to palpation Neuro: Other: difficult to asses, only following some commands, not answering questions. is able to lift arms and move both legs General: confusion Extrem: General: Yes no pedal edema Objective Data Active Medications Albuterol/Ipratropium (Albuterol/Iprat 2.5/0.5mg 3 Ml Ampul.Neb) 3 ml INHALE RQ4H WHILE AWAKE [facility] Last Admin: 03/06/22 07:46 Dose: 3 ml Documented By: TITUS Amlodipine Besylate (Amlodipine Besylate 10 Mg Tablet) 10 mg PO DAILY [facility]; Protocol Last Admin: 03/05/22 12:00 Dose: 10 mg Documented By: KISHOR Apixaban (Apixaban 5 Mg Tablet) 5 mg PO BID [facility] Last Admin: 03/05/22 22:02 Dose: 5 mg Documented By: RUBI Atorvastatin Calcium (Atorvastatin Calcium 40 Mg Tablet) 40 mg PO BEDTIME [facility] Last Admin: 03/05/22 22:05 Dose: 40 mg Documented By: RUBI Cyanocobalamin (Cyanocobalamin (Vitamin B-12) 1,000 Mcg Tablet) 1,000 mcg PO DAILY [facility] Last Admin: 03/05/22 12:00 Dose: 1,000 mcg Documented By: KISHOR Docusate Sodium (Docusate Sodium 100 Mg Capsule) 100 mg PO DAILY PRN PRN Reason: Constipation Gabapentin (Gabapentin 600 Mg Tablet) 600 mg PO BID [facility] Last Admin: 03/05/22 22:05 Dose: 600 mg Documented By: RUBI Ceftriaxone Sodium 1 gm/ (Sodium Chloride) 50 mls @ 100 mls/hr IV Q24H [facility] Last Infusion: 03/05/22 17:09 Dose: 0 mls/hr Documented By: RUBI Thiamine HCl 100 mg/ Sodium (Chloride) 101 mls @ 202 mls/hr IV DAILY [facility] Last Infusion: 03/05/22 14:48 Dose: 0 mls/hr Documented By: KISHOR Folic Acid 1 mg/ Sodium (Chloride) 50.2 mls @ 100.4 mls/hr IV DAILY [facility] Last Admin: 03/05/22 14:48 Dose: Not Given Documented By: KISHOR Non-Admin Reason: No Access Levetiracetam (Levetiracetam 500 Mg Tablet) 500 mg PO BID [facility] Last Admin: 03/05/22 22:01 Dose: 500 mg Documented By: RUBI Lisinopril (Lisinopril 5 Mg Tablet) 5 mg PO DAILY [facility]; Protocol Last Admin: 03/05/22 12:01 Dose: 5 mg Documented By: KISHOR Metoprolol Tartrate (Metoprolol Tartrate 25 Mg Tablet) 25 mg PO BID [facility]; Protocol Last Admin: 03/05/22 22:02 Dose: 25 mg Documented By: RUBI Olanzapine (Olanzapine 10 Mg Tablet) 20 mg PO BEDTIME [facility] Last Admin: 03/05/22 22:03 Dose: 20 mg Documented By: RUBI Omeprazole (Omeprazole 20 Mg Capsule.Dr) 20 mg PO DAILY@0630 [facility] Last Admin: 03/06/22 06:27 Dose: Not Given Documented By: DIMITRI Non-Admin Reason: Patient Refused Ondansetron HCl (Ondansetron Hcl 4 Mg/2 Ml Vial) 4 mg IVPUSH Q8H PRN PRN Reason: Nausea and Vomiting Pharmacy Consult (Consult Rx Perform Med Rec) 1 each MISCELLANE ONCE PRN PRN Reason: Consult order Pharmacy Consult (Consult Rx Etoh Phenob Im/Po) 1 each MISCELLANE ONCE PRN; Protocol PRN Reason: Consult order Phenobarbital (Phenobarbital 30 Mg Tablet) 30 mg PO BID [facility] Phenobarbital (Phenobarbital 15 Mg Tablet) 15 mg PO DAILY [facility] Stop: 03/09/22 09:01 Sertraline HCl (Sertraline Hcl 25 Mg Tablet) 25 mg PO DAILY [facility] Last Admin: 03/05/22 12:00 Dose: 25 mg Documented By: KISHOR Sodium Chloride (0.9 % Sodium Chloride Flush 3 Ml Syringe) 3 ml IVFLUSH QSHIFT [facility] Last Admin: 03/06/22 00:16 Dose: 3 ml Documented By: DIMITRI Tamsulosin HCl (Tamsulosin Hcl 0.4 Mg Capsule) 0.4 mg PO DAILY [facility] Last Admin: 03/05/22 12:00 Dose: 0.4 mg Documented By: KISHOR Tiotropium [place] (Tiotropium [place] 18 Mcg Cap.W.Dev) 1 puff INHALE RDAILY [facility] Last Admin: 03/06/22 07:48 Dose: Not Given Documented By: TITUS Non-Admin Reason: unable Vitamin D (Cholecalciferol (Vitamin D3) 25 Mcg Tablet) 50 mcg PO DAILY [facility] Last Admin: 03/05/22 12:00 Dose: 50 mcg Documented By: KISHOR Labs CBC & Chem 7: 03/06/22 08:14 03/06/22 08:14 Labs: Laboratory Results - last 24 hr 03/06/22 03/06/22 03/06/22 08:14 08:14 08:15 MCV 90.4 MCH 29.9 MCHC 33.1 RDW 12.5 Plt Count 276 MPV 8.7 L Immature Gran % (Auto) 0.2 Neut % (Auto) 57.7 Lymph % (Auto) 25.0 Page % (Auto) 12.2 H Eos % (Auto) 4.5 H Baso % (Auto) 0.4 Lymph # (Auto) 2.5 [place] # (Auto) 1.2 Eos # (Auto) 0.5 H Baso # (Auto) 0.0 Abs Immat Gran (auto) 0.02 Absolute Neuts (auto) 5.8 Absolute Nucleated RBC 0.000 Nucleated RBC % (auto) 0.0 O2 Saturation ABG pH at Pt Temp ABG pCO2 at Pt Temp ABG pO2 at Pt Temp ABG HCO3 ABG Base Excess (Actual) Anion Gap 17 Estim Creat Clear Calc 98.1 Estimated GFR > 60 Fasting Glucose 92 Calcium 9.1 Total Bilirubin 0.6 AST 19 ALT 9 Alkaline Phosphatase 91 Ammonia Total Creatine Kinase 615 H D Total Protein 7.0 Albumin 3.6 03/06/22 03/06/22 09:51 09:57 MCV MCH MCHC RDW Plt Count MPV Immature Gran % (Auto) Neut % (Auto) Lymph % (Auto) [place] % (Auto) Eos % (Auto) Baso % (Auto) Lymph # (Auto) Page # (Auto) Eos # (Auto) Baso # (Auto) Abs Immat Gran (auto) Absolute Neuts (auto) Absolute Nucleated RBC Nucleated RBC % (auto) O2 Saturation 93.0 ABG pH at Pt Temp 7.42 ABG pCO2 at Pt Temp 30 L ABG pO2 at Pt Temp 75 L ABG HCO3 20 L ABG Base Excess (Actual) -2.9 Anion Gap Estim Creat Clear Calc Estimated GFR Fasting Glucose Calcium Total Bilirubin AST ALT Alkaline Phosphatase Ammonia 31 Total Creatine Kinase Total Protein Albumin Microbiology Microbiology Results: Microbiology 03/03/22 Unknown Urine Culture - Final Urine Catheterized - Straight Catheter Aerococcus viridans 03/03/22 10:37 Blood Culture - Preliminary Blood - Venous No growth after 48 hours. 03/03/22 10:37 Blood Culture - Preliminary Blood - Venous No growth after 48 hours. Assessment and Plan (1) Encephalopathy: Status: Acute (2) Seizure: Status: Acute Plan 65-year-old male with a past medical history of hypertension, hyperlipidemia, cardiomyopathy, history of seizures, history of prior DVT on Eliquis, history of alcohol abuse on naltrexone, and encephalopathy admitted for seizure with que stion of alcohol withdrawal, UTI with sepsis, and encephalopathy Encephalopathy likely multifactorial etoh withdrawal vs infectious process vs med related Ammonia 31, abg ok CT brain pending sedating meds including phenobarbital, gabapentin on hold Keppra possibly contributing factor as well seizure secondary to etoh w/d vs seizure disorder history of seizure disorder with question of alcohol withdrawal seizure has been treated with phenobarb seen by neuro, darwin d/c and keppra started -continue seizure precautions alcohol withdrawal patient found seizing with known history of alcohol abuse phenobarb held for sedation elevated CPk secondary to seizure. trending down UTI urine culture growing aerococcus viridans, probably contaminant given encephalopathy will continue to treat, has been on ceftriaxone day 3 LLE cellulitis resolved. venous duplex negative for DVT xray foot negative IV ceftriaxone day 3/ hypertension urgency on admission bp improved, goes up and down continue home meds if awake enough to take po history DVT venous duplex negative -continue Eliquis - if not able to take meds regularly may need to consider changing to lovenox cardiomyopathy/ Hld -continue statin COPD -continue maintenance medications -albuterol p.r.n. GERD -continue PPI Eliquis Full code attending dr. simmons Patient requires inpatient stay due to encephalopathy, seizure, encephalopathy Quality Stroke Does the patient have a stroke diagnosis?: No VTE Prior VTE?: No VTE Risk Level:: Medical - moderate - high VTE Device Contraindication: Treatment Not Indicated VTE Drug Contraindication: N/A - Med Ordered
[2022-03-06] MEDS: Folic Acid 1 MG in 0.9 % Sodium Chloride 50 ML 100 MG IV (11:35)
[2022-03-06] MEDS: Cyanocobalamin (Vitamin B-12) 1,000 MCG TABLET 1000 MCG PO (11:36)
[2022-03-06] MEDS: Cholecalciferol (Vitamin D3) 25 MCG TABLET 50 MCG PO (11:37)
[2022-03-06] MEDS: Tamsulosin HCL 0.4 MG CAPSULE PO (11:37)
[2022-03-06] MEDS: Metoprolol Tartrate 25 MG TABLET PO ×2 (11:37→21:19)
[2022-03-06] MEDS: lisinopriL 5 MG TABLET PO (11:37)
[2022-03-06] MEDS: amLODIPine Besylate 10 MG TABLET PO (11:38)
[2022-03-06] MEDS: cefTRIAXone sodium 1 GM in 0.9 % Sodium Chloride 50 ML IV (11:41)
--- NOTE | 2022-03-06 12:08 | MHC.CM.PN ---
Per ROUNDS discussion, Patient is having a work up r/t Confusion and is not yet medically cleared for dc; STR appears to be the goal and CM will continue to follow.
[2022-03-06] MEDS: Thiamine HCL 100 MG in 0.9 % Sodium Chloride 100 ML IV (12:19)
[2022-03-06 14:34] LABS: ABG Refer to POC result
[2022-03-06] MEDS: Sertraline HCL 25 MG TABLET PO (15:44)
[2022-03-06] MEDS: Apixaban 5 MG TABLET PO ×2 (15:44→21:19)
[2022-03-06] MEDS: levETIRAcetam 500 MG TABLET PO ×2 (15:45→21:17)
[2022-03-06] MEDS: Atorvastatin Calcium 40 MG TABLET PO (21:17)
[2022-03-06] MEDS: OLANZapine 10 MG TABLET 20 MG PO (21:19)
[2022-03-07] VITALS (10 sets, daily range): BP systolic 97–191; BP diastolic 69–101; PULSE 84–135; RESP 16–22; TEMP 36–37.2; O2SAT 71–100
[2022-03-07] MEDS: 0.9 % Sodium Chloride Flush 3 ML SYRINGE IVFLUSH ×3 (01:51→19:29)
[2022-03-07] MEDS: Omeprazole 20 MG CAPSULE.DR PO (05:32)
[2022-03-07 07:54] LABS: Alanine Aminotransferase 10 U/L (0-40); Albumin Level 3.5 g/dL (3.5-5.0); Alkaline Phosphatase 89 U/L (39-117); Anion Gap 19 (12-20); Aspartate Amino Transferase 24 U/L (5-37); Bilirubin Total 0.4 mg/dL (0.0-1.0); Blood Urea Nitrogen 9 mg/dL (9-16); Calcium 8.9 mg/dL (8.4-10.2); Carbon Dioxide 20 mmol/L (22-29); Chloride 102 mmol/L (96-108); Creatinine Clr Calc Pharmacy 103.8; Estimated Glomerular Filt Rate > 60; Glucose Fasting 119 mg/dL (60-99); Potassium 4.8 mmol/L (3.3-5.1); Sodium 136 mmol/L (135-145); Total Protein 7.4 g/dL (6.5-8.0)
[2022-03-07] MEDS: Albuterol/Iprat 2.5/0.5MG 3 ML AMPUL.NEB INHALE ×3 (08:06→15:30)
--- NOTE | 2022-03-07 08:09 | PC.NURSE ---
Pt on aspiration precautions. Remains with weakness, lethargic , on phenobarbitals. Tolerated all scheduled meds well.
[2022-03-07 08:57] LABS: Basophils Absolute Auto 0.1 X10*3/uL (0.0-0.2); Basophils Percent Auto 0.5 % (0-2); Eosinophils Absolute Auto 0.5 X10*3/uL (0.0-0.4); Eosinophils Percent Auto 5.5 % (0-4); Hematocrit 40.1 % (42.0-52.0); Imm Gran Abs Auto 0.03 X10*3/uL (0.00-0.03); Imm Gran Pct Auto 0.3 % (0.0-0.4); Lymphocytes Absolute Auto 2.5 X10*3/uL (1.2-4.9); Lymphocytes Percent Auto 27.6 % (20-40); Mean Corpuscular HGB Conc 32.4 g/dl (31.0-36.0); Mean Corpuscular Hemoglobin 29.3 pg (27.0-33.0); Mean Corpuscular Volume 90.5 fL (80.0-98.0); Mean Platelet Volume 8.8 fL (9.4-12.4); Monocytes Absolute Auto 1.1 X10*3/uL (0.1-1.2); Monocytes Percent Auto 12.3 % (2-11); Neutrophils Absolute Auto 4.9 x10*3/uL (2.0-8.3); Neutrophils Percent Auto 53.8 % (45-73); Platelet Count 311 X10*3/uL (160-400); Red Blood Count 4.43 X10*6/uL (4.60-5.80); Red Cell Distribution Width 12.6 % (11.0-16.0); White Blood Count 9.1 X10*3/uL (4.8-10.8)
[2022-03-07] MEDS: Thiamine HCL 100 MG in 0.9 % Sodium Chloride 100 ML IV (10:48)
--- NOTE | 2022-03-07 11:49 | P.PNIM_ITS ---
Subjective Subjective Date of Service: 03/07/22 <Starr Gilmore NP - Last Filed: 03/07/22 11:53> 03/21/22 <Naveed Mckeon MD - Last Filed: 03/21/22 09:09> Interval History: follow up for encephalopathy awakens to verbal stimuli, but only following some commands, appears sleepy, not answering questions unable to obtain ROS <Starr Gilmore NP - Last Filed: 03/07/22 11:53> Neurologic Neurologic: Reports confusion <Starr Gilmore NP - Last Filed: 03/07/22 11:53> Psychiatric Psychiatric: Reports confusion <Starr Gilmore NP - Last Filed: 03/07/22 11:53> Physical Exam Vital Signs: Vital Signs: Last Vital Signs Temp 97.6 F 03/07/22 11:40 Pulse 96 03/07/22 11:40 Resp 18 03/07/22 11:40 BP 164/69 H 03/07/22 11:40 Pulse Ox 97 03/07/22 11:40 O2 Del Method 03/07/22 11:40 BMI result Body Mass Index 25.8 <Starr Gilmore NP - Last Filed: 03/07/22 11:53> Appearing in no acute distress lung sounds are clear to auscultation heart regular rate rhythm, clear S1, S2 positive bowel sounds, abdomen is soft, nontender neuro patient is alert, sleepy <Starr Gilmore NP - Last Filed: 03/07/22 11:53> Const: General: confusion <Starr Gilmore NP - Last Filed: 03/07/22 11:53> Orientation/consciousness: confusion <Starr Gilmore NP - Last Filed: 03/07/22 11:53> Neuro: General: confusion <Starr Gilmore NP - Last Filed: 03/07/22 11:53> Objective Data Active Medications Albuterol/Ipratropium (Albuterol/Iprat 2.5/0.5mg 3 Ml Ampul.Neb) 3 ml INHALE RQ4H WHILE AWAKE [facility] Last Admin: 03/07/22 08:06 Dose: 3 ml Documented By: CAILIN Amlodipine Besylate (Amlodipine Besylate 10 Mg Tablet) 10 mg PO DAILY [facility]; Protocol Last Admin: 03/07/22 11:47 Dose: Not Given Documented By: LILLIANA Non-Admin Reason: pt not awake enough to take MD aware. Apixaban (Apixaban 5 Mg Tablet) 5 mg PO BID [facility] Last Admin: 03/07/22 11:48 Dose: Not Given Documented By: LILLIANA Non-Admin Reason: pt not awake enough to take MD aware. Atorvastatin Calcium (Atorvastatin Calcium 40 Mg Tablet) 40 mg PO BEDTIME [facility] Last Admin: 03/06/22 21:17 Dose: 40 mg Documented By: WALI Cyanocobalamin (Cyanocobalamin (Vitamin B-12) 1,000 Mcg Tablet) 1,000 mcg PO DAILY [facility] Last Admin: 03/07/22 11:48 Dose: Not Given Documented By: LILLIANA Non-Admin Reason: pt not awake enough to take MD aware. Docusate Sodium (Docusate Sodium 100 Mg Capsule) 100 mg PO DAILY PRN PRN Reason: Constipation Gabapentin (Gabapentin 600 Mg Tablet) 600 mg PO BID [facility] Last Admin: 03/06/22 11:38 Dose: Not Given Documented By: PETER Non-Admin Reason: on hold Ceftriaxone Sodium 1 gm/ (Sodium Chloride) 50 mls @ 100 mls/hr IV Q24H [facility] Last Infusion: 03/06/22 15:02 Dose: 0 mls/hr Documented By: PETER Thiamine HCl 100 mg/ Sodium (Chloride) 101 mls @ 202 mls/hr IV DAILY [facility] Last Admin: 03/07/22 10:48 Dose: 100 mls/hr Documented By: LILLIANA Folic Acid 1 mg/ Sodium (Chloride) 50.2 mls @ 100.4 mls/hr IV DAILY [facility] Last Infusion: 03/06/22 15:02 Dose: 0 mls/hr Documented By: PETER Levetiracetam (Levetiracetam 500 Mg Tablet) 500 mg PO BID [facility] Last Admin: 03/07/22 11:48 Dose: Not Given Documented By: LILLIANA Non-Admin Reason: pt not awake enough to take MD aware. Lisinopril (Lisinopril 5 Mg Tablet) 5 mg PO DAILY [facility]; Protocol Last Admin: 03/07/22 11:48 Dose: Not Given Documented By: LILLIANA Non-Admin Reason: pt not awake enough to take MD aware. Metoprolol Tartrate (Metoprolol Tartrate 25 Mg Tablet) 25 mg PO BID [facility]; Protocol Last Admin: 03/07/22 11:48 Dose: Not Given Documented By: LILLIANA Non-Admin Reason: pt not awake enough to take MD aware. Olanzapine (Olanzapine 10 Mg Tablet) 20 mg PO BEDTIME [facility] Last Admin: 03/06/22 21:19 Dose: 20 mg Documented By: WALI Omeprazole (Omeprazole 20 Mg Capsule.Dr) 20 mg PO DAILY@0630 [facility] Last Admin: 03/07/22 05:32 Dose: 20 mg Documented By: WALI Ondansetron HCl (Ondansetron Hcl 4 Mg/2 Ml Vial) 4 mg IVPUSH Q8H PRN PRN Reason: Nausea and Vomiting Pharmacy Consult (Consult Rx Perform Med Rec) 1 each MISCELLANE ONCE PRN PRN Reason: Consult order Pharmacy Consult (Consult Rx Etoh Phenob Im/Po) 1 each MISCELLANE ONCE PRN; Protocol PRN Reason: Consult order Phenobarbital (Phenobarbital 30 Mg Tablet) 30 mg PO BID [facility] Last Admin: 03/06/22 11:39 Dose: Not Given Documented By: PETER Non-Admin Reason: on hold Phenobarbital (Phenobarbital 15 Mg Tablet) 15 mg PO DAILY [facility] Stop: 03/09/22 09:01 Sertraline HCl (Sertraline Hcl 25 Mg Tablet) 25 mg PO DAILY [facility] Last Admin: 03/07/22 11:48 Dose: Not Given Documented By: LILLIANA Non-Admin Reason: pt not awake enough to take MD aware. Sodium Chloride (0.9 % Sodium Chloride Flush 3 Ml Syringe) 3 ml IVFLUSH QSHIFT [facility] Last Admin: 03/07/22 10:47 Dose: 3 ml Documented By: LILLIANA Tamsulosin HCl (Tamsulosin Hcl 0.4 Mg Capsule) 0.4 mg PO DAILY [facility] Last Admin: 03/07/22 11:49 Dose: Not Given Documented By: LILLIANA Non-Admin Reason: pt not awake enough to take MD aware. Tiotropium [place] (Tiotropium [place] 18 Mcg Cap.W.Dev) 1 puff INHALE RDAILY [facility] Last Admin: 03/07/22 08:23 Dose: Not Given Documented By: CAILIN Non-Admin Reason: Given in Dialysis Vitamin D (Cholecalciferol (Vitamin D3) 25 Mcg Tablet) 50 mcg PO DAILY [facility] Last Admin: 03/07/22 11:48 Dose: Not Given Documented By: LILLIANA Non-Admin Reason: pt not awake enough to take MD aware. <Starr Gilmore NP - Last Filed: 03/07/22 11:53> Labs CBC & Chem 7: : 03/20/22 05:57 03/20/22 08:39 <Starr Gilmore NP - Last Filed: 03/07/22 11:53> Labs: Laboratory Results - last 24 hr 03/07/22 03/07/22 07:07 08:24 MCV 90.5 MCH 29.3 MCHC 32.4 RDW 12.6 Plt Count 311 MPV 8.8 L Immature Gran % (Auto) 0.3 Neut % (Auto) 53.8 Lymph % (Auto) 27.6 [place] % (Auto) 12.3 H Eos % (Auto) 5.5 H Baso % (Auto) 0.5 Lymph # (Auto) 2.5 [place] # (Auto) 1.1 Eos # (Auto) 0.5 H Baso # (Auto) 0.1 Abs Immat Gran (auto) 0.03 Absolute Neuts (auto) 4.9 Absolute Nucleated RBC 0.000 Nucleated RBC % (auto) 0.0 Anion Gap 19 Estim Creat Clear Calc 103.8 Estimated GFR > 60 Random Glucose TNP Fasting Glucose 119 H Calcium 8.9 Total Bilirubin 0.4 AST 24 ALT 10 Alkaline Phosphatase 89 Total Protein 7.4 Albumin 3.5 <Starr Gilmore NP - Last Filed: 03/07/22 11:53> Microbiology Microbiology Results: Microbiology 03/03/22 Unknown Urine Culture - Final Urine Catheterized - Straight Catheter Aerococcus viridans <Starr Gilmore NP - Last Filed: 03/07/22 11:53> Assessment and Plan (1) Encephalopathy: Status: Acute <Starr Gilmore NP - Last Filed: 03/07/22 11:53> (2) Seizure: Status: Acute <Starr Gilmore NP - Last Filed: 03/07/22 11:53> Assessment and Plan: 65-year-old male with a past medical history of hypertension, hyperlipidemia, cardiomyopathy, history of seizures, history of prior DVT on Eliquis, history of alcohol abuse on naltrexone, and encephalopathy admitted for seizure with question of alcohol withdrawal, UTI with sepsis, and encephalopathy Encephalopathy multifactorial etoh withdrawal vs infectious process vs med related Ammonia 31, abg ok CT brain neg for acute abnormality sedating meds including phenobarbital, gabapentin on hold Keppra possibly contributing factor as well continue to monitor seizure secondary to etoh w/d vs seizure disorder history of seizure disorder with question of alcohol withdrawal seizure has been treated with phenobarb seen by neuro, darwin d/c and keppra started continue seizure precautions alcohol withdrawal patient found seizing with known history of alcohol abuse phenobarb held for sedation elevated CPk secondary to seizure. trending down UTI urine culture growing aerococcus viridans, probably contaminant given encephalopathy will continue to treat, has been on ceftriaxone LLE cellulitis resolved. venous duplex negative for DVT xray foot negative IV ceftriaxone hypertension urgency on admission bp improved, goes up and down continue home meds if awake enough to take po history DVT venous duplex negative continue Eliquis - if not able to take meds regularly may need to consider changing to lovenox cardiomyopathy/ Hld continue statin COPD continue maintenance medications albuterol p.r.n. GERD continue PPI Eliquis Full code attending Dr. Mckeon Patient requires inpatient stay due to encephalopathy, seizure, encephalopathy <Starr Gilmore NP - Last Filed: 03/07/22 11:53> Quality Stroke Does the patient have a stroke diagnosis?: No <Starr Gilmore NP - Last Filed: 03/07/22 11:53> VTE Prior VTE?: No <Starr Gilmore NP - Last Filed: 03/07/22 11:53> VTE Risk Level:: Medical - moderate - high <Starr Gilmore NP - Last Filed: 03/07/22 11:53> VTE Device Contraindication: Treatment Not Indicated <Starr Gilmore NP - Last Filed: 03/07/22 11:53> VTE Drug Contraindication: N/A - Med Ordered <Starr Gilmore NP - Last Filed: 03/07/22 11:53>
[2022-03-07] MEDS: Folic Acid 1 MG in 0.9 % Sodium Chloride 50 ML 100 MG IV (12:15)
[2022-03-07] MEDS: cefTRIAXone sodium 1 GM in 0.9 % Sodium Chloride 50 ML IV (13:00)
--- NOTE | 2022-03-07 16:39 | PC.NURSE ---
pt has been sleepy all day. pt is not arousable to name. this nurse sternal rub pt to wake pt to take meds but was unsuccessful. pt's morning vitals has been within parameters: 98.4, HR84, RR18, BP 124/73, O2 100 RA with the exception of an elevated BP of 164/69 at noon time. this nurse was unable to safely give PO medication due to pt not able to follow commands or awake enough to safely swallow. MD car, IV kepra ordered.
--- NOTE | 2022-03-07 22:24 | PC.NURSE ---
PT unable to wake up fully to take po meds this pm, MD Murillo notified. PT VS T 97.8, R 16, O2 94 % RA, P 92, BP 158/80. PT arousable to name but then closes eyes again.
[2022-03-08] VITALS (10 sets, daily range): BP systolic 120–164; BP diastolic 80–113; PULSE 80–119; RESP 16–20; TEMP 36.3–36.7; O2SAT 92–98
[2022-03-08] MEDS: Omeprazole 20 MG CAPSULE.DR PO (05:32)
[2022-03-08] MEDS: Albuterol/Iprat 2.5/0.5MG 3 ML AMPUL.NEB INHALE ×3 (07:35→15:29)
[2022-03-08] MEDS: Thiamine HCL 100 MG in 0.9 % Sodium Chloride 100 ML IV (09:41)
[2022-03-08] MEDS: Apixaban 5 MG TABLET PO ×2 (09:41→20:53)
[2022-03-08] MEDS: Sertraline HCL 25 MG TABLET PO (09:42)
[2022-03-08] MEDS: amLODIPine Besylate 10 MG TABLET PO (09:43)
[2022-03-08] MEDS: Cyanocobalamin (Vitamin B-12) 1,000 MCG TABLET 1000 MCG PO (09:43)
[2022-03-08] MEDS: Cholecalciferol (Vitamin D3) 25 MCG TABLET 50 MCG PO (09:44)
[2022-03-08] MEDS: 0.9 % Sodium Chloride Flush 3 ML SYRINGE IVFLUSH ×2 (09:45→20:56)
[2022-03-08] MEDS: Tamsulosin HCL 0.4 MG CAPSULE PO (09:45)
[2022-03-08] MEDS: Metoprolol Tartrate 25 MG TABLET PO ×2 (09:46→20:55)
[2022-03-08] MEDS: lisinopriL 5 MG TABLET PO (09:46)
[2022-03-08] MEDS: Folic Acid 1 MG in 0.9 % Sodium Chloride 50 ML 100 MG IV (10:42)
--- NOTE | 2022-03-08 11:02 | HO.PM.IMPN ---
Subjective Subjective Date of Service: 03/08/22 <Starr Gilmore NP - Last Filed: 03/08/22 11:13> 03/21/22 <Naveed Mckeon MD - Last Filed: 03/21/22 09:09> Interval History: follow up for encephalopathy awakens to verbal stimuli, but only following some commands, appears sleepy, not answering questions appropriately unable to obtain ROS <Starr Gilmore NP - Last Filed: 03/08/22 11:13> Neurologic Neurologic: Reports confusion <Starr Gilmore NP - Last Filed: 03/08/22 11:13> Psychiatric Psychiatric: Reports confusion <Starr Gilmore NP - Last Filed: 03/08/22 11:13> Physical Exam Vital Signs: Vital Signs: Last Vital Signs Temp 97.6 F 03/08/22 07:53 Pulse 102 H 03/08/22 07:53 Resp 20 03/08/22 07:53 BP 157/87 H 03/08/22 07:53 Pulse Ox 94 03/08/22 07:53 O2 Del Method 03/08/22 07:53 BMI result Body Mass Index 25.8 <Starr Gilmore NP - Last Filed: 03/08/22 11:13> Appearing in no acute distress lung sounds are clear to auscultation heart regular rate rhythm, clear S1, S2 positive bowel sounds, abdomen is soft, nontender neuro patient is alert <Starr Gilmore NP - Last Filed: 03/08/22 11:13> Const: General: confusion <Starr Gilmore NP - Last Filed: 03/08/22 11:13> Orientation/consciousness: confusion <Starr Gilmore NP - Last Filed: 03/08/22 11:13> Neuro: General: confusion <Starr Gilmore NP - Last Filed: 03/08/22 11:13> Objective Data Active Medications Albuterol/Ipratropium (Albuterol/Iprat 2.5/0.5mg 3 Ml Ampul.Neb) 3 ml INHALE RQ4H WHILE AWAKE [facility] Last Admin: 03/08/22 07:35 Dose: 3 ml Documented By: TITUS Amlodipine Besylate (Amlodipine Besylate 10 Mg Tablet) 10 mg PO DAILY [facility]; Protocol Last Admin: 03/08/22 09:43 Dose: 10 mg Documented By: LILLIANA Apixaban (Apixaban 5 Mg Tablet) 5 mg PO BID [facility] Last Admin: 03/08/22 09:41 Dose: 5 mg Documented By: LILLIANA Atorvastatin Calcium (Atorvastatin Calcium 40 Mg Tablet) 40 mg PO BEDTIME [facility] Last Admin: 03/07/22 22:23 Dose: Not Given Documented By: JULIANA Non-Admin Reason: PT too sleepy Cyanocobalamin (Cyanocobalamin (Vitamin B-12) 1,000 Mcg Tablet) 1,000 mcg PO DAILY [facility] Last Admin: 03/08/22 09:43 Dose: 1,000 mcg Documented By: LILLIANA Docusate Sodium (Docusate Sodium 100 Mg Capsule) 100 mg PO DAILY PRN PRN Reason: Constipation Gabapentin (Gabapentin 600 Mg Tablet) 600 mg PO BID [facility] Last Admin: 03/06/22 11:38 Dose: Not Given Documented By: PETER Non-Admin Reason: on hold Ceftriaxone Sodium 1 gm/ (Sodium Chloride) 50 mls @ 100 mls/hr IV Q24H [facility] Last Infusion: 03/07/22 13:59 Dose: 0 mls/hr Documented By: LILLIANA Thiamine HCl 100 mg/ Sodium (Chloride) 101 mls @ 202 mls/hr IV DAILY [facility] Last Infusion: 03/08/22 10:42 Dose: 0 mls/hr Documented By: LILLIANA Folic Acid 1 mg/ Sodium (Chloride) 50.2 mls @ 100.4 mls/hr IV DAILY [facility] Last Admin: 03/08/22 10:42 Dose: 100 mls/hr Documented By: LILLIANA Levetiracetam (Keppra) 500 mg in 100 mls @ 400 mls/hr IV Q12H [facility] Lisinopril (Lisinopril 5 Mg Tablet) 5 mg PO DAILY [facility]; Protocol Last Admin: 03/08/22 09:46 Dose: 5 mg Documented By: LILLIANA Metoprolol Tartrate (Metoprolol Tartrate 25 Mg Tablet) 25 mg PO BID [facility]; Protocol Last Admin: 03/08/22 09:46 Dose: 25 mg Documented By: LILLIANA Olanzapine (Olanzapine 10 Mg Tablet) 20 mg PO BEDTIME [facility] Last Admin: 03/07/22 22:23 Dose: Not Given Documented By: JULIANA Non-Admin Reason: PT too sleepy Omeprazole (Omeprazole 20 Mg Capsule.Dr) 20 mg PO DAILY@0630 [facility] Last Admin: 03/08/22 05:32 Dose: 20 mg Documented By: JULIANA Ondansetron HCl (Ondansetron Hcl 4 Mg/2 Ml Vial) 4 mg IVPUSH Q8H PRN PRN Reason: Nausea and Vomiting Pharmacy Consult (Consult Rx Perform Med Rec) 1 each MISCELLANE ONCE PRN PRN Reason: Consult order Pharmacy Consult (Consult Rx Etoh Phenob Im/Po) 1 each MISCELLANE ONCE PRN; Protocol PRN Reason: Consult order Phenobarbital (Phenobarbital 30 Mg Tablet) 30 mg PO BID [facility] Last Admin: 03/06/22 11:39 Dose: Not Given Documented By: PETER Non-Admin Reason: on hold Phenobarbital (Phenobarbital 15 Mg Tablet) 15 mg PO DAILY [facility] Sertraline HCl (Sertraline Hcl 25 Mg Tablet) 25 mg PO DAILY [facility] Last Admin: 03/08/22 09:42 Dose: 25 mg Documented By: LILLIANA Sodium Chloride (0.9 % Sodium Chloride Flush 3 Ml Syringe) 3 ml IVFLUSH QSHIFT [facility] Last Admin: 03/08/22 09:45 Dose: 3 ml Documented By: LILLIANA Tamsulosin HCl (Tamsulosin Hcl 0.4 Mg Capsule) 0.4 mg PO DAILY [facility] Last Admin: 03/08/22 09:45 Dose: 0.4 mg Documented By: LILLIANA Tiotropium [place] (Tiotropium [place] 18 Mcg Cap.W.Dev) 1 puff INHALE RDAILY [facility] Last Admin: 03/08/22 07:37 Dose: Not Given Documented By: TITUS Non-Admin Reason: unable Vitamin D (Cholecalciferol (Vitamin D3) 25 Mcg Tablet) 50 mcg PO DAILY [facility] Last Admin: 03/08/22 09:44 Dose: 50 mcg Documented By: LILLIANA <Starr Gilmore NP - Last Filed: 03/08/22 11:13> Labs CBC & Chem 7: : 03/20/22 05:57 03/20/22 08:39 <Starr Gilmore NP - Last Filed: 03/08/22 11:13> Assessment and Plan (1) Encephalopathy: Status: Acute <Starr Gilmore NP - Last Filed: 03/08/22 11:13> (2) Seizure: Status: Acute <Starr Gilmore NP - Last Filed: 03/08/22 11:13> Assessment and Plan: 65-year-old male with a past medical history of hypertension, hyperlipidemia, cardiomyopathy, history of seizures, history of prior DVT on Eliquis, history of alcohol abuse on naltrexone, and encephalopathy admitted for seizure with question of alcohol withdrawal, UTI with sepsis, and encephalopathy Encephalopathy. More awake today multifactorial etoh withdrawal vs infectious process vs med related Ammonia 31, abg ok CT brain neg for acute abnormality sedating meds including phenobarbital, gabapentin on hold Keppra placed on hold continue to monitor seizure secondary to etoh w/d vs seizure disorder history of seizure disorder with question of alcohol withdrawal seizure has been treated with phenobarb seen by neuro, dilantin d/c and keppra started, but held due to encephalopathy continue seizure precautions alcohol withdrawal patient found seizing with known history of alcohol abuse phenobarb held d/t sedation elevated CPk secondary to seizure. trending down UTI urine culture growing aerococcus viridans, probably contaminant given encephalopathy will continue to treat, has been on ceftriaxone LLE cellulitis resolved. venous duplex negative for DVT xray foot negative IV ceftriaxone hypertension urgency on admission bp improved, goes up and down continue home meds if awake enough to take po history DVT venous duplex negative continue Eliquis - if not able to take meds regularly may need to consider changing to lovenox cardiomyopathy/ Hld continue statin COPD continue maintenance medications albuterol p.r.n. GERD continue PPI Eliquis Full code attending Dr. Mckeon Patient requires inpatient stay due to encephalopathy, seizure, encephalopathy <Starr Gilmore NP - Last Filed: 03/08/22 11:13> Quality Stroke Does the patient have a stroke diagnosis?: No <Starr Gilmore NP - Last Filed: 03/08/22 11:13> VTE Prior VTE?: No <Starr Gilmore NP - Last Filed: 03/08/22 11:13> VTE Risk Level:: Medical - moderate - high <Starr Gilmore NP - Last Filed: 03/08/22 11:13> VTE Device Contraindication: Treatment Not Indicated <Starr Gilmore NP - Last Filed: 03/08/22 11:13> VTE Drug Contraindication: N/A - Med Ordered <Starr Gilmore NP - Last Filed: 03/08/22 11:13>
[2022-03-08] MEDS: cefTRIAXone sodium 1 GM in 0.9 % Sodium Chloride 50 ML IV (11:28)
[2022-03-08] MEDS: Atorvastatin Calcium 40 MG TABLET PO (20:55)
[2022-03-08] MEDS: OLANZapine 10 MG TABLET 20 MG PO (20:56)
[2022-03-09] VITALS (8 sets, daily range): BP systolic 109–166; BP diastolic 63–83; PULSE 80–94; RESP 16–20; TEMP 36.5–37.4; O2SAT 93–100
[2022-03-09] MEDS: Omeprazole 20 MG CAPSULE.DR PO (05:28)
[2022-03-09] MEDS: Albuterol/Iprat 2.5/0.5MG 3 ML AMPUL.NEB INHALE ×2 (07:21→11:25)
[2022-03-09] MEDS: lisinopriL 5 MG TABLET PO (08:27)
[2022-03-09] MEDS: amLODIPine Besylate 10 MG TABLET PO (08:27)
[2022-03-09] MEDS: Metoprolol Tartrate 25 MG TABLET PO ×2 (08:27→21:34)
[2022-03-09] MEDS: Apixaban 5 MG TABLET PO ×2 (08:27→21:33)
[2022-03-09] MEDS: Cholecalciferol (Vitamin D3) 25 MCG TABLET 50 MCG PO (08:27)
[2022-03-09] MEDS: Sertraline HCL 25 MG TABLET PO (08:27)
[2022-03-09] MEDS: Cyanocobalamin (Vitamin B-12) 1,000 MCG TABLET 1000 MCG PO (08:27)
[2022-03-09] MEDS: Tamsulosin HCL 0.4 MG CAPSULE PO (08:27)
[2022-03-09] MEDS: 0.9 % Sodium Chloride Flush 3 ML SYRINGE IVFLUSH ×3 (08:28→21:34)
[2022-03-09] MEDS: Thiamine HCL 100 MG in 0.9 % Sodium Chloride 100 ML IV (08:28)
[2022-03-09] MEDS: Folic Acid 1 MG in 0.9 % Sodium Chloride 50 ML 100 MG IV (09:28)
--- NOTE | 2022-03-09 10:53 | MHC.SLORD ---
Speech Language Pathology Order Status: Pt seen for bedside dysphagia evaluation 03/05 and recommended pureed diet (NDD1) with thin liquids. SHOW J[employer]ING [employer]CTOR attempted to follow up 03/06, but pt was too lethargic to safely participate in PO trials. Early 03/07 morning, RN documented pt tolerated all scheduled meals. Later 03/07 per RN notes, pt became sleepy, was unable to fully take PO medications. SHOW JUMPING INSTRUCTOR attempted to see pt this morning for dysphagia treatment. Pt awoke momentarily to sternal rub, but quickly fell back asleep. Not appropriate for PO trials this morning. Pt continues to be on pureed diet (NDD1) with thin liquids. Pt must be awake and alert for intake of PO. Do not feed, hold tray if pt is lethargic.
[2022-03-09] MEDS: cefTRIAXone sodium 1 GM in 0.9 % Sodium Chloride 50 ML IV (11:41)
--- NOTE | 2022-03-09 14:05 | HO.PM.IMPN ---
Subjective Subjective Date of Service: 03/09/22 Interval History: follow up for encephalopathy awakens to verbal stimuli, but only following some commands, appears sleepy, not answering questions appropriately unable to obtain ROS Neurologic Neurologic: Reports confusion Psychiatric Psychiatric: Reports confusion Physical Exam Vital Signs: Vital Signs: Last Vital Signs Temp 98.7 F 03/09/22 11:27 Pulse 80 03/09/22 11:27 Resp 18 03/09/22 11:27 BP 148/76 H 03/09/22 11:27 Pulse Ox 94 03/09/22 11:27 O2 Del Method 03/09/22 11:27 BMI result Body Mass Index 25.8 Appearing in no acute distress lung sounds are clear to auscultation heart regular rate rhythm, clear S1, S2 positive bowel sounds, abdomen is soft, nontender neuro patient is alert x3, no focal deficits Const: General: confusion Orientation/consciousness: confusion Neuro: General: confusion Objective Data Active Medications Albuterol/Ipratropium (Albuterol/Iprat 2.5/0.5mg 3 Ml Ampul.Neb) 3 ml INHALE RQ4H WHILE AWAKE [facility] Last Admin: 03/09/22 11:25 Dose: 3 ml Documented By: CAILIN Amlodipine Besylate (Amlodipine Besylate 10 Mg Tablet) 10 mg PO DAILY [facility]; Protocol Last Admin: 03/09/22 08:27 Dose: 10 mg Documented By: PAVITHRA Apixaban (Apixaban 5 Mg Tablet) 5 mg PO BID [facility] Last Admin: 03/09/22 08:27 Dose: 5 mg Documented By: PAVITHRA Atorvastatin Calcium (Atorvastatin Calcium 40 Mg Tablet) 40 mg PO BEDTIME [facility] Last Admin: 03/08/22 20:55 Dose: 40 mg Documented By: CHINMAY Cyanocobalamin (Cyanocobalamin (Vitamin B-12) 1,000 Mcg Tablet) 1,000 mcg PO DAILY [facility] Last Admin: 03/09/22 08:27 Dose: 1,000 mcg Documented By: PAVITHRA Docusate Sodium (Docusate Sodium 100 Mg Capsule) 100 mg PO DAILY PRN PRN Reason: Constipation Gabapentin (Gabapentin 600 Mg Tablet) 600 mg PO BID [facility] Last Admin: 03/06/22 11:38 Dose: Not Given Documented By: PETER Non-Admin Reason: on hold Ceftriaxone Sodium 1 gm/ (Sodium Chloride) 50 mls @ 100 mls/hr IV Q24H [facility] Last Infusion: 03/09/22 12:18 Dose: 0 mls/hr Documented By: PAVITHRA Thiamine HCl 100 mg/ Sodium (Chloride) 101 mls @ 202 mls/hr IV DAILY [facility] Last Infusion: 03/09/22 10:01 Dose: 0 mls/hr Documented By: PAVITHRA Folic Acid 1 mg/ Sodium (Chloride) 50.2 mls @ 100.4 mls/hr IV DAILY [facility] Last Infusion: 03/09/22 10:01 Dose: 0 mls/hr Documented By: PAVITHRA Levetiracetam (Keppra) 500 mg in 100 mls @ 400 mls/hr IV Q12H [facility] Lisinopril (Lisinopril 5 Mg Tablet) 5 mg PO DAILY [facility]; Protocol Last Admin: 03/09/22 08:27 Dose: 5 mg Documented By: PAVITHRA Metoprolol Tartrate (Metoprolol Tartrate 25 Mg Tablet) 25 mg PO BID [facility]; Protocol Last Admin: 03/09/22 08:27 Dose: 25 mg Documented By: PAVITHRA Olanzapine (Olanzapine 10 Mg Tablet) 20 mg PO BEDTIME [facility] Last Admin: 03/08/22 20:56 Dose: 20 mg Documented By: CHINMAY Omeprazole (Omeprazole 20 Mg Capsule.Dr) 20 mg PO DAILY@0630 [facility] Last Admin: 03/09/22 05:28 Dose: 20 mg Documented By: JESSICAAKJ Ondansetron HCl (Ondansetron Hcl 4 Mg/2 Ml Vial) 4 mg IVPUSH Q8H PRN PRN Reason: Nausea and Vomiting Pharmacy Consult (Consult Rx Perform Med Rec) 1 each MISCELLANE ONCE PRN PRN Reason: Consult order Pharmacy Consult (Consult Rx Etoh Phenob Im/Po) 1 each MISCELLANE ONCE PRN; Protocol PRN Reason: Consult order Phenobarbital (Phenobarbital 30 Mg Tablet) 30 mg PO BID [facility] Last Admin: 03/06/22 11:39 Dose: Not Given Documented By: TAMEK Non-Admin Reason: on hold Phenobarbital (Phenobarbital 15 Mg Tablet) 15 mg PO DAILY [facility] Sertraline HCl (Sertraline Hcl 25 Mg Tablet) 25 mg PO DAILY [facility] Last Admin: 03/09/22 08:27 Dose: 25 mg Documented By: PAVITHRA Sodium Chloride (0.9 % Sodium Chloride Flush 3 Ml Syringe) 3 ml IVFLUSH QSHIFT [facility] Last Admin: 03/09/22 08:28 Dose: 3 ml Documented By: PAVITHRA Tamsulosin HCl (Tamsulosin Hcl 0.4 Mg Capsule) 0.4 mg PO DAILY [facility] Last Admin: 03/09/22 08:27 Dose: 0.4 mg Documented By: PAVITHRA Tiotropium [place] (Tiotropium [place] 18 Mcg Cap.W.Dev) 1 puff INHALE RDAILY [facility] Last Admin: 03/09/22 07:22 Dose: Not Given Documented By: CAILIN Non-Admin Reason: See Note Vitamin D (Cholecalciferol (Vitamin D3) 25 Mcg Tablet) 50 mcg PO DAILY [facility] Last Admin: 03/09/22 08:27 Dose: 50 mcg Documented By: PAVITHRA Labs CBC & Chem 7: 03/07/22 08:24 03/07/22 07:07 Microbiology Microbiology Results: Microbiology 03/03/22 10:37 Blood Culture - Final Blood - Venous No growth after 5 days. 03/03/22 10:37 Blood Culture - Final Blood - Venous No growth after 5 days. Assessment and Plan (1) Encephalopathy: Status: Acute (2) Seizure: Status: Acute Plan 65-year-old male with a past medical history of hypertension, hyperlipidemia, cardiomyopathy, history of seizures, history of prior DVT on Eliquis, history of alcohol abuse on naltrexone, and encephalopathy admitted for seizure with question of alcohol withdrawal, UTI with sepsis, and encephalopathy Encephalopathy. Resolved multifactorial etoh withdrawal vs infectious process vs med related Ammonia 31, abg ok CT brain neg for acute abnormality sedating meds including phenobarbital, gabapentin on hold Keppra placed on hold due to lethargy continue to monitor seizure secondary to etoh w/d vs seizure disorder history of seizure disorder with question of alcohol withdrawal seizure has been treated with phenobarb seen by neuro, dilantin d/c and keppra started, but held due to encephalopathy continue seizure precautions alcohol withdrawal patient found seizing with known history of alcohol abuse phenobarb held d/t sedation elevated CPk secondary to seizure. trending down UTI urine culture growing aerococcus viridans, probably contaminant given encephalopathy will continue to treat, has been on ceftriaxone LLE cellulitis resolved. venous duplex negative for DVT xray foot negative IV ceftriaxone hypertension urgency on admission bp improved, goes up and down continue home meds if awake enough to take po history DVT venous duplex negative continue Eliquis cardiomyopathy/ Hld continue statin COPD continue maintenance medications albuterol p.r.n. GERD continue PPI Eliquis Full code attending Dr. Kapadia Patient requires inpatient stay due to encephalopathy, seizure, encephalopathy Quality Stroke Does the patient have a stroke diagnosis?: No VTE Prior VTE?: No VTE Risk Level:: Medical - moderate - high VTE Device Contraindication: Treatment Not Indicated VTE Drug Contraindication: N/A - Med Ordered
--- NOTE | 2022-03-09 14:47 | MHC.CM.PN ---
Per ROUNDS discussion, Patient is not yet medically cleared for dc (IV Ceftriaxone, IV Folic Acid); STR appears to be likely and CM will continue to follow.
[2022-03-09] MEDS: OLANZapine 10 MG TABLET 20 MG PO (21:33)
[2022-03-09] MEDS: Atorvastatin Calcium 40 MG TABLET PO (21:34)
[2022-03-10] VITALS (7 sets, daily range): BP systolic 105–160; BP diastolic 58–90; PULSE 81–97; RESP 18–22; TEMP 36.3–37.1; O2SAT 94–98
[2022-03-10] MEDS: Omeprazole 20 MG CAPSULE.DR PO (05:51)
[2022-03-10] MEDS: Albuterol/Iprat 2.5/0.5MG 3 ML AMPUL.NEB INHALE ×2 (07:50→15:10)
[2022-03-10] MEDS: amLODIPine Besylate 10 MG TABLET PO (08:59)
[2022-03-10] MEDS: Tamsulosin HCL 0.4 MG CAPSULE PO (08:59)
[2022-03-10] MEDS: lisinopriL 5 MG TABLET PO (08:59)
[2022-03-10] MEDS: Cholecalciferol (Vitamin D3) 25 MCG TABLET 50 MCG PO (08:59)
[2022-03-10] MEDS: Sertraline HCL 25 MG TABLET PO (08:59)
[2022-03-10] MEDS: Cyanocobalamin (Vitamin B-12) 1,000 MCG TABLET 1000 MCG PO (09:00)
[2022-03-10] MEDS: Metoprolol Tartrate 25 MG TABLET PO (09:00)
[2022-03-10] MEDS: Apixaban 5 MG TABLET PO ×2 (09:00→20:08)
[2022-03-10] MEDS: Folic Acid 1 MG in 0.9 % Sodium Chloride 50 ML 100 MG IV (09:00)
[2022-03-10] MEDS: 0.9 % Sodium Chloride Flush 3 ML SYRINGE IVFLUSH ×2 (09:10→17:43)
[2022-03-10] MEDS: Thiamine HCL 100 MG in 0.9 % Sodium Chloride 100 ML IV (09:34)
[2022-03-10] MEDS: cefTRIAXone sodium 1 GM in 0.9 % Sodium Chloride 50 ML IV (10:45)
--- NOTE | 2022-03-10 14:37 | HO.PM.IMPN ---
Subjective Subjective Date of Service: 03/10/22 Interval History: follow up for encephalopathy awakens to verbal stimuli, but only following some commands, appears sleepy, not answering questions appropriately unable to obtain ROS Neurologic Neurologic: Reports confusion Psychiatric Psychiatric: Reports confusion Physical Exam Vital Signs: Vital Signs: Last Vital Signs Temp 98 F 03/10/22 11:17 Pulse 86 03/10/22 11:17 Resp 20 03/10/22 11:17 BP 144/77 H 03/10/22 11:17 Pulse Ox 98 03/10/22 11:17 O2 Del Method 03/10/22 11:17 BMI result Body Mass Index 25.8 Appearing in no acute distress lung sounds are clear to auscultation heart regular rate rhythm, clear S1, S2 positive bowel sounds, abdomen is soft, nontender neuro patient is lethergic Const: General: confusion Orientation/consciousness: confusion Neuro: General: confusion Objective Data Active Medications Albuterol/Ipratropium (Albuterol/Iprat 2.5/0.5mg 3 Ml Ampul.Neb) 3 ml INHALE RQ4H WHILE AWAKE [facility] Last Admin: 03/10/22 11:29 Dose: Not Given Documented By: BHARTI Non-Admin Reason: pt refused kept pedrito and hands over face Amlodipine Besylate (Amlodipine Besylate 10 Mg Tablet) 10 mg PO DAILY [facility]; Protocol Last Admin: 03/10/22 08:59 Dose: 10 mg Documented By: RICH Apixaban (Apixaban 5 Mg Tablet) 5 mg PO BID [facility] Last Admin: 03/10/22 09:00 Dose: 5 mg Documented By: RICH Atorvastatin Calcium (Atorvastatin Calcium 40 Mg Tablet) 40 mg PO BEDTIME [facility] Last Admin: 03/09/22 21:34 Dose: 40 mg Documented By: SUREKHA Cyanocobalamin (Cyanocobalamin (Vitamin B-12) 1,000 Mcg Tablet) 1,000 mcg PO DAILY [facility] Last Admin: 03/10/22 09:00 Dose: 1,000 mcg Documented By: RICH Docusate Sodium (Docusate Sodium 100 Mg Capsule) 100 mg PO DAILY PRN PRN Reason: Constipation Gabapentin (Gabapentin 600 Mg Tablet) 600 mg PO BID [facility] Last Admin: 03/06/22 11:38 Dose: Not Given Documented By: PETER Non-Admin Reason: on hold Ceftriaxone Sodium 1 gm/ (Sodium Chloride) 50 mls @ 100 mls/hr IV Q24H [facility] Last Infusion: 03/10/22 11:48 Dose: 0 mls/hr Documented By: RICH Thiamine HCl 100 mg/ Sodium (Chloride) 101 mls @ 202 mls/hr IV DAILY [facility] Last Infusion: 03/10/22 10:37 Dose: 0 mls/hr Documented By: RICH Folic Acid 1 mg/ Sodium (Chloride) 50.2 mls @ 100.4 mls/hr IV DAILY [facility] Last Infusion: 03/10/22 09:35 Dose: 0 mls/hr Documented By: RICH Levetiracetam (Keppra) 500 mg in 100 mls @ 400 mls/hr IV Q12H [facility] Lisinopril (Lisinopril 5 Mg Tablet) 5 mg PO DAILY [facility]; Protocol Last Admin: 03/10/22 08:59 Dose: 5 mg Documented By: RICH Metoprolol Tartrate (Metoprolol Tartrate 25 Mg Tablet) 25 mg PO BID [facility]; Protocol Last Admin: 03/10/22 09:00 Dose: 25 mg Documented By: RICH Olanzapine (Olanzapine 10 Mg Tablet) 20 mg PO BEDTIME [facility] Last Admin: 03/09/22 21:33 Dose: 20 mg Documented By: SUREKHA Omeprazole (Omeprazole 20 Mg Capsule.Dr) 20 mg PO DAILY@0630 [facility] Last Admin: 03/10/22 05:51 Dose: 20 mg Documented By: SUREKHA Ondansetron HCl (Ondansetron Hcl 4 Mg/2 Ml Vial) 4 mg IVPUSH Q8H PRN PRN Reason: Nausea and Vomiting Pharmacy Consult (Consult Rx Perform Med Rec) 1 each MISCELLANE ONCE PRN PRN Reason: Consult order Pharmacy Consult (Consult Rx Etoh Phenob Im/Po) 1 each MISCELLANE ONCE PRN; Protocol PRN Reason: Consult order Phenobarbital (Phenobarbital 30 Mg Tablet) 30 mg PO BID [facility] Last Admin: 03/06/22 11:39 Dose: Not Given Documented By: PETER Non-Admin Reason: on hold Phenobarbital (Phenobarbital 15 Mg Tablet) 15 mg PO DAILY [facility] Sertraline HCl (Sertraline Hcl 25 Mg Tablet) 25 mg PO DAILY [facility] Last Admin: 03/10/22 08:59 Dose: 25 mg Documented By: RICH Sodium Chloride (0.9 % Sodium Chloride Flush 3 Ml Syringe) 3 ml IVFLUSH QSHIFT [facility] Last Admin: 03/10/22 09:10 Dose: 3 ml Documented By: RICH Tamsulosin HCl (Tamsulosin Hcl 0.4 Mg Capsule) 0.4 mg PO DAILY [facility] Last Admin: 03/10/22 08:59 Dose: 0.4 mg Documented By: RICH Tiotropium [place] (Tiotropium [place] 18 Mcg Cap.W.Dev) 1 puff INHALE RDAILY [facility] Last Admin: 03/10/22 07:51 Dose: Not Given Documented By: TITUS Non-Admin Reason: uable Vitamin D (Cholecalciferol (Vitamin D3) 25 Mcg Tablet) 50 mcg PO DAILY [facility] Last Admin: 03/10/22 08:59 Dose: 50 mcg Documented By: RICH Labs CBC & Chem 7: 03/07/22 08:24 03/07/22 07:07 Assessment and Plan (1) Encephalopathy: Status: Acute (2) Seizure: Status: Acute Plan 65-year-old male with a past medical history of hypertension, hyperlipidemia, cardiomyopathy, history of seizures, history of prior DVT on Eliquis, history of alcohol abuse on naltrexone, and encephalopathy admitted for seizure with question of alcohol withdrawal, UTI with sepsis, and encephalopathy Encephalopathy Still with lethergy and confusion multifactorial etoh withdrawal vs infectious process vs med related Ammonia 31, abg ok CT brain neg for acute abnormality sedating meds including phenobarbital, gabapentin were placed on hold, restart Gabapentin Keppra placed on hold due to lethargy, but restarted today continue to monitor mental status Discussed with caregiver, This presentation is typical for him after he starts to drink alcohol and stop taking his medications seizure secondary to etoh w/d vs seizure disorder history of seizure disorder with question of alcohol withdrawal seizure has been treated with phenobarb seen by neuro, darwin d/c and keppra started, but held due to encephalopathy continue seizure precautions alcohol withdrawal patient found seizing with known history of alcohol abuse phenobarb held d/t sedation elevated CPk secondary to seizure. trending down UTI urine culture growing aerococcus viridans, probably contaminant given encephalopathy will continue to treat, has been on ceftriaxone LLE cellulitis resolved. venous duplex negative for DVT xray foot negative IV ceftriaxone hypertension urgency on admission bp improved, goes up and down continue home meds if awake enough to take po history DVT venous duplex negative continue Eliquis cardiomyopathy/ Hld continue statin COPD continue maintenance medications albuterol p.r.n. GERD continue PPI Eliquis Full code attending Dr. Kapadia Patient requires inpatient stay due to encephalopathy, seizure, encephalopathy Quality Stroke Does the patient have a stroke diagnosis?: No VTE Prior VTE?: No VTE Risk Level:: Medical - moderate - high VTE Device Contraindication: Treatment Not Indicated VTE Drug Contraindication: N/A - Med Ordered
--- NOTE | 2022-03-10 19:12 | MHC.SL.SWA ---
Speech Pathologist Impression: Risk of Aspiration Due to: Neurological Condition Reduced Cognition Dysphasia Diet Status: Moderate Oral Phase Dysphagia due to edentulous state and disorganized lingual pattern, including prominent tongue thrust on swallow. Dementia/disorientation. Liquid Consistency and Strategies for Safe Swallow: Liquid Intake Recommendation: Thin Liquid Intake Strategies: Small Sips Solid Food Consistency: Dietary Recommendations: Pureed (NDD1) Additional Modifications to Solid Foods: Alternate liquids and solids to clear any oral residual, oral checks before presenting more food, minimize distractions, 1-1 feed. Oral Medication Intake: Crushed with Puree Please contact the pharmacy regarding appropriate crushable or liquid drug formulations that are available whenever modified delivery is recommended. Compensatory Strategies and Precautions to be Taken for Safe Swallow: Sitting Upright (90 deg) Liquids from Cup Small Bites and Sips Alternate Liquids/Solids Avoid Specific Foods Supervision While Eating and Drinking for Safe Swallow: Total Assistance (1:1) Foods to Avoid: Sicky or congealed purees. Swallowing Recommended Treatments: Compens. Strategy Educat. Recommendation for Speech: Inpatient Speech Therapy Comment: Pt seen during lunch for treatment. Patient was lethargic, but was more alert when repositioned with head of bed upright. Throughout session patient mostly kept eyes closed, but remained engaged in meal presented. Patient agreed to try some lunch. Patient was noted to have thick, yellowish white coating on most of tongue, coating remained after presentations of food and liquid. Pt initially took tsps of juice, stripping spoon when cued, with some anterior escape of liquid, timely oral and pharyngeal phase of swallow. Pt was given cup sip of juice, w/patient forming partial seal on cup, slurping/sucking liquid to mouth, then producing timely oral phase, mild tongue thrust on swallow, timely swallow, no clinical signs of aspiration. Pt took bites of puree, with some disorganized oral movement to propel bolus (tongue pumping and thrusting), timely swallow, laryngeal elevation WFL. Pt consumed approximately 1/3 of food on tray, then stated that he had had enough. Patient noted to ask for copa, but was otherwise minimally verbally interactive during session. Recommend continue on Puree (NDD1) with Thin Liquids, Pills crushed in puree. Frequency/Duration: M-F while inpatient. Date Range for Service Req: Timeline to reassess: Spring Machine Operator Clinican/Clinical Fellow: No Supervisory Statement: I have reviewed and agree with the student/clinical fellow's documentation: N/A Speech Language Pathologist: Ranjana Byrnes M.A., CCC-DESIGN PRINTER [employer]
[2022-03-10] MEDS: Atorvastatin Calcium 40 MG TABLET PO (20:08)
[2022-03-10] MEDS: Gabapentin 600 MG TABLET PO (20:08)
[2022-03-10] MEDS: levETIRAcetam in NaCl (iso-os) 500 MG/100 ML PIGGYBACK 400 MG IV (20:16)
[2022-03-10] MEDS: OLANZapine 10 MG TABLET 20 MG PO (20:36)
[2022-03-10] MEDS: 0.9 % Sodium Chloride 1,000 ML 100 ML IVCONT (22:32)
[2022-03-11] VITALS (7 sets, daily range): BP systolic 135–169; BP diastolic 69–96; PULSE 79–92; RESP 16–20; TEMP 36.5–37.2; O2SAT 93–97
[2022-03-11] MEDS: Omeprazole 20 MG CAPSULE.DR PO (06:20)
--- NOTE | 2022-03-11 09:17 | HO.PM.IMPN ---
Subjective Subjective Date of Service: 03/11/22 Interval History: follow up for encephalopathy awakens to verbal stimuli, but only following some commands, appears sleepy, not answering questions appropriately unable to obtain ROS Neurologic Neurologic: Reports confusion Psychiatric Psychiatric: Reports confusion Physical Exam Vital Signs: Vital Signs: Last Vital Signs Temp 97.9 F 03/11/22 07:39 Pulse 87 03/11/22 07:39 Resp 18 03/11/22 07:39 BP 135/70 03/11/22 07:39 Pulse Ox 97 03/11/22 07:39 O2 Del Method 03/11/22 07:39 O2 Flow Rate 97 03/11/22 07:39 FiO2 97 03/10/22 19:41 BMI result Body Mass Index 25.8 Appearing in no acute distress lung sounds are clear to auscultation heart regular rate rhythm, clear S1, S2 positive bowel sounds, abdomen is soft, nontender neuro patient is alert, confused Const: General: confusion Orientation/consciousness: confusion Neuro: General: confusion Objective Data Active Medications Albuterol Sulfate (Albuterol Sulfate (0.083%) 2.5 Mg/3 Ml Vial.Neb) 2.5 mg INHALE RQ4H WHILE AWAKE [facility] Albuterol/Ipratropium (Albuterol/Iprat 2.5/0.5mg 3 Ml Ampul.Neb) 3 ml INHALE RQ4H PRN PRN Reason: Shortness of Breath/Wheezing Amlodipine Besylate (Amlodipine Besylate 10 Mg Tablet) 10 mg PO DAILY [facility]; Protocol Last Admin: 03/10/22 08:59 Dose: 10 mg Documented By: RICH Apixaban (Apixaban 5 Mg Tablet) 5 mg PO BID [facility] Last Admin: 03/10/22 20:08 Dose: 5 mg Documented By: KAYLA Atorvastatin Calcium (Atorvastatin Calcium 40 Mg Tablet) 40 mg PO BEDTIME [facility] Last Admin: 03/10/22 20:08 Dose: 40 mg Documented By: KAYLA Cyanocobalamin (Cyanocobalamin (Vitamin B-12) 1,000 Mcg Tablet) 1,000 mcg PO DAILY [facility] Last Admin: 03/10/22 09:00 Dose: 1,000 mcg Documented By: RICH Docusate Sodium (Docusate Sodium 100 Mg Capsule) 100 mg PO DAILY PRN PRN Reason: Constipation Gabapentin (Gabapentin 600 Mg Tablet) 600 mg PO BID [facility] Last Admin: 03/10/22 20:08 Dose: 600 mg Documented By: KAYLA Ceftriaxone Sodium 1 gm/ (Sodium Chloride) 50 mls @ 100 mls/hr IV Q24H [facility] Last Infusion: 03/10/22 11:48 Dose: 0 mls/hr Documented By: RICH Thiamine HCl 100 mg/ Sodium (Chloride) 101 mls @ 202 mls/hr IV DAILY [facility] Last Infusion: 03/10/22 10:37 Dose: 0 mls/hr Documented By: RICH Folic Acid 1 mg/ Sodium (Chloride) 50.2 mls @ 100.4 mls/hr IV DAILY [facility] Last Infusion: 03/10/22 09:35 Dose: 0 mls/hr Documented By: RICH Levetiracetam (Keppra) 500 mg in 100 mls @ 400 mls/hr IV Q12H [facility] Last Infusion: 03/10/22 21:06 Dose: 0 mls/hr Documented By: KAYLA Sodium Chloride (Ns) 1,000 mls @ 100 mls/hr IVCONT .Q10H [facility] Last Admin: 03/11/22 02:41 Dose: Not Given Documented By: ROSLYN Non-Admin Reason: IV Running Lisinopril (Lisinopril 5 Mg Tablet) 5 mg PO DAILY [facility]; Protocol Last Admin: 03/10/22 08:59 Dose: 5 mg Documented By: RICH Metoprolol Tartrate (Metoprolol Tartrate 25 Mg Tablet) 25 mg PO BID [facility]; Protocol Last Admin: 03/10/22 20:33 Dose: Not Given Documented By: KAYLA Non-Admin Reason: Decreased Blood Pressure Olanzapine (Olanzapine 10 Mg Tablet) 20 mg PO BEDTIME [facility] Last Admin: 03/10/22 20:36 Dose: 20 mg Documented By: KAYLA Omeprazole (Omeprazole 20 Mg Capsule.Dr) 20 mg PO DAILY@0630 [facility] Last Admin: 03/11/22 06:20 Dose: 20 mg Documented By: ROSLYN Ondansetron HCl (Ondansetron Hcl 4 Mg/2 Ml Vial) 4 mg IVPUSH Q8H PRN PRN Reason: Nausea and Vomiting Pharmacy Consult (Consult Rx Perform Med Rec) 1 each MISCELLANE ONCE PRN PRN Reason: Consult order Pharmacy Consult (Consult Rx Etoh Phenob Im/Po) 1 each MISCELLANE ONCE PRN; Protocol PRN Reason: Consult order Phenobarbital (Phenobarbital 30 Mg Tablet) 30 mg PO BID [facility] Last Admin: 03/06/22 11:39 Dose: Not Given Documented By: PETER Non-Admin Reason: on hold Phenobarbital (Phenobarbital 15 Mg Tablet) 15 mg PO DAILY [facility] Sertraline HCl (Sertraline Hcl 25 Mg Tablet) 25 mg PO DAILY [facility] Last Admin: 03/10/22 08:59 Dose: 25 mg Documented By: RICH Sodium Chloride (0.9 % Sodium Chloride Flush 3 Ml Syringe) 3 ml IVFLUSH QSHIFT [facility] Last Admin: 03/11/22 02:41 Dose: Not Given Documented By: ROSLYN Non-Admin Reason: IV Running Tamsulosin HCl (Tamsulosin Hcl 0.4 Mg Capsule) 0.4 mg PO DAILY [facility] Last Admin: 03/10/22 08:59 Dose: 0.4 mg Documented By: RICH Tiotropium [place] (Tiotropium [place] 18 Mcg Cap.W.Dev) 1 puff INHALE RDAILY [facility] Last Admin: 03/11/22 07:39 Dose: Not Given Documented By: KRISTARICC Non-Admin Reason: unable Vitamin D (Cholecalciferol (Vitamin D3) 25 Mcg Tablet) 50 mcg PO DAILY [facility] Last Admin: 03/10/22 08:59 Dose: 50 mcg Documented By: RICH Labs CBC & Chem 7: 03/07/22 08:24 03/07/22 07:07 Assessment and Plan (1) Encephalopathy: Status: Acute (2) Seizure: Status: Acute Plan 65-year-old male with a past medical history of hypertension, hyperlipidemia, cardiomyopathy, history of seizures, history of prior DVT on Eliquis, history of alcohol abuse on naltrexone, and encephalopathy admitted for seizure with question of alcohol withdrawal, UTI with sepsis, and encephalopathy Encephalopathy Still with lethergy and confusion multifactorial etoh withdrawal vs med related, stopped taking his medications Ammonia 31, abg ok CT brain neg for acute abnormality sedating meds including phenobarbital, gabapentin were placed on hold, restart Gabapentin Keppra placed on hold due to lethargy, but restarted today continue to monitor mental status Discussed with caregiver, This presentation is typical for him after he starts to drink alcohol and stops taking his medications seizure secondary to etoh w/d vs seizure disorder history of seizure disorder with question of alcohol withdrawal seizure has been treated with phenobarb seen by neuro, darwin d/c and anastacia started, but held due to encephalopathy continue seizure precautions alcohol withdrawal patient found seizing with known history of alcohol abuse phenobarb held d/t sedation elevated CPk secondary to seizure. trending down UTI urine culture growing aerococcus viridans, probably contaminant given encephalopathy will continue to treat, has been on ceftriaxone LLE cellulitis resolved. venous duplex negative for DVT xray foot negative IV ceftriaxone hypertension urgency on admission bp improved, goes up and down continue home meds if awake enough to take po history DVT venous duplex negative continue Eliquis cardiomyopathy/ Hld continue statin COPD continue maintenance medications albuterol p.r.n. GERD continue PPI Eliquis Full code attending Dr. Kapadia Patient requires inpatient stay due to encephalopathy, seizure, encephalopathy Quality Stroke Does the patient have a stroke diagnosis?: No VTE Prior VTE?: No VTE Risk Level:: Medical - moderate - high VTE Device Contraindication: Treatment Not Indicated VTE Drug Contraindication: N/A - Med Ordered
[2022-03-11 09:26] LABS: MANUAL DIFF FLAG NO
[2022-03-11 09:31] LABS: Basophils Absolute Auto 0.1 X10*3/uL (0.0-0.2); Basophils Percent Auto 0.6 % (0-2); Eosinophils Absolute Auto 0.5 X10*3/uL (0.0-0.4); Eosinophils Percent Auto 6.3 % (0-4); Hematocrit 38.4 % (42.0-52.0); Hemoglobin 12.3 g/dl (14.0-18.0); Imm Gran Abs Auto 0.01 X10*3/uL (0.00-0.03); Imm Gran Pct Auto 0.1 % (0.0-0.4); Lymphocytes Absolute Auto 2.1 X10*3/uL (1.2-4.9); Lymphocytes Percent Auto 25.9 % (20-40); Mean Corpuscular Hemoglobin 29.4 pg (27.0-33.0); Mean Corpuscular Volume 91.9 fL (80.0-98.0); Mean Platelet Volume 8.3 fL (9.4-12.4); Monocytes Absolute Auto 0.9 X10*3/uL (0.1-1.2); Monocytes Percent Auto 11.3 % (2-11); Neutrophils Absolute Auto 4.5 x10*3/uL (2.0-8.3); Neutrophils Percent Auto 55.8 % (45-73); Platelet Count 352 X10*3/uL (160-400); Red Blood Count 4.18 X10*6/uL (4.60-5.80); Red Cell Distribution Width 12.3 % (11.0-16.0); White Blood Count 8.1 X10*3/uL (4.8-10.8)
[2022-03-11 09:32] LABS: Venous Blood Gas Refer to POC result
[2022-03-11 09:32] LABS: VBG HCO3 23 mmol/L (22-26); VBG pCO2 40 mmHg; VBG pH 7.35 (7.32-7.43); VBG pO2 40 mmHg
[2022-03-11 09:47] LABS: Ammonia 30 umol/L (13-55)
[2022-03-11 09:54] LABS: Anion Gap 14 (12-20); Blood Urea Nitrogen 9 mg/dL (9-16); Calcium 9.2 mg/dL (8.4-10.2); Carbon Dioxide 26 mmol/L (22-29); Chloride 103 mmol/L (96-108); Creatinine Clr Calc Pharmacy 115.6; Estimated Glomerular Filt Rate > 60; Glucose Random 95 mg/dL (60-115); Potassium 4.9 mmol/L (3.3-5.1); Sodium 138 mmol/L (135-145)
[2022-03-11 09:59] LABS: Alanine Aminotransferase 17 U/L (0-40); Albumin Level 3.4 g/dL (3.5-5.0); Alkaline Phosphatase 88 U/L (39-117); Aspartate Amino Transferase 31 U/L (5-37); Bilirubin Direct 0.3 mg/dL (0.0-0.5); Bilirubin Total 0.4 mg/dL (0.0-1.0); Total Protein 7.3 g/dL (6.5-8.0)
[2022-03-11 10:20] LABS: Lactic Acid 2.1 mmol/L (0.5-2.0)
[2022-03-11] MEDS: Thiamine HCL 100 MG in 0.9 % Sodium Chloride 100 ML 202 MG IV (11:21)
[2022-03-11 11:24] LABS: Reflex Lactate? Lactic Acid Added
[2022-03-11] MEDS: 0.9 % Sodium Chloride Flush 3 ML SYRINGE IVFLUSH ×3 (11:28→20:15)
[2022-03-11] MEDS: Sertraline HCL 25 MG TABLET PO (11:31)
[2022-03-11] MEDS: lisinopriL 5 MG TABLET PO (11:31)
[2022-03-11] MEDS: Apixaban 5 MG TABLET PO (11:31)
[2022-03-11] MEDS: Tamsulosin HCL 0.4 MG CAPSULE PO (11:31)
[2022-03-11] MEDS: amLODIPine Besylate 10 MG TABLET PO (11:31)
[2022-03-11] MEDS: Gabapentin 600 MG TABLET PO (11:31)
[2022-03-11] MEDS: Metoprolol Tartrate 25 MG TABLET PO (11:31)
[2022-03-11] MEDS: Albuterol Sulfate (0.083%) 2.5 MG/3 ML VIAL.NEB INHALE ×2 (11:47→16:15)
--- NOTE | 2022-03-11 11:48 | MHC.SL.SWA ---
Speech Pathologist Impression: Oropharyngeal phase dysphagia Risk of Aspiration Due to: Neurological Condition Reduced Cognition Dysphasia Diet Status: No Change at this time Liquid Consistency and Strategies for Safe Swallow: Liquid Intake Recommendation: Thin Liquid Intake Strategies: Small Sips No Straws Liquids by Teaspoon Only Solid Food Consistency: Dietary Recommendations: Pureed (NDD1) Additional Modifications to Solid Foods: Recommend continue with PUREED (NDD1) solids (half teaspoon bites) and THIN liquids by teaspoon only, pills CRUSHED in PUREE. Pt requires TOTAL 1:1 ASSISTANCE. Administer half teaspoon bites and provide cues as needed to swallow (verbal reminders to swallow, present dry teaspoon to elicit dry swallow as needed). Check oral cavity and ensure it is cleared before presenting more bites. Ensure aspiration precautions. Minimize distractions during meals. Do not present food, HOLD TRAY if pt is lethargic and unable to remain awake for entire meal. ENROLLMENT COORDINATOR will continue to follow. Oral Medication Intake: Crushed with Puree Please contact the pharmacy regarding appropriate crushable or liquid drug formulations that are available whenever modified delivery is recommended. Compensatory Strategies and Precautions to be Taken for Safe Swallow: Sitting Upright (90 deg) Liquids from Spoon Small Bites and Sips Alternate Liquids/Solids Rate of Ingestion Change Oral Check Avoid Specific Foods Supervision While Eating and Drinking for Safe Swallow: Total Assistance (1:1) Foods to Avoid: Sicky or congealed purees. Swallowing Recommended Treatments: Compens. Strategy Educat. Recommendation for Speech: Inpatient Speech Therapy Frequency/Duration: M-F while inpatient. Date Range for Service Req: Timeline to reassess: Clinical Consultant Clinican/Clinical Fellow: Yes: Blanco Hogan Supervisory Statement: I have reviewed and agree with the student/clinical fellow's documentation: N/A Speech Language Pathologist: Alison Hunter M.A., CCC-ENROLLMENT COORDINATOR
[2022-03-11 11:57] LABS: ~Lactic Acid-LAB USE ONLY 0.7 mmol/L (0.5-2.0)
[2022-03-11] MEDS: levETIRAcetam in NaCl (iso-os) 500 MG/100 ML PIGGYBACK 400 MG IV ×2 (12:09→19:54)
[2022-03-11] MEDS: Folic Acid 1 MG in 0.9 % Sodium Chloride 50 ML 100.4 MG IV (12:38)
[2022-03-11] MEDS: cefTRIAXone sodium 1 GM in 0.9 % Sodium Chloride 50 ML IV (14:13)
[2022-03-11] MEDS: 0.9 % Sodium Chloride 1,000 ML 100 ML IVCONT ×2 (14:15→19:55)
--- NOTE | 2022-03-11 16:01 | MHC.CM.PN ---
SNF referrals have been updated and CM will continue to follow.
[2022-03-11] MEDS: methylPREDNISolone Sod Succ 40 MG/ML VIAL IVPUSH ×2 (17:28→23:15)
[2022-03-12] VITALS (10 sets, daily range): BP systolic 105–198; BP diastolic 60–90; PULSE 67–95; RESP 17–20; TEMP 36.3–36.9; O2SAT 95–99
[2022-03-12] MEDS: Albuterol Sulfate (0.083%) 2.5 MG/3 ML VIAL.NEB INHALE ×4 (07:45→19:17)
[2022-03-12] MEDS: methylPREDNISolone Sod Succ 40 MG/ML VIAL IVPUSH ×3 (08:52→23:53)
[2022-03-12] MEDS: amLODIPine Besylate 10 MG TABLET PO (08:52)
[2022-03-12] MEDS: Metoprolol Tartrate 25 MG TABLET PO ×2 (08:52→20:05)
[2022-03-12] MEDS: levETIRAcetam in NaCl (iso-os) 500 MG/100 ML PIGGYBACK 400 MG IV ×2 (08:52→21:04)
[2022-03-12] MEDS: Gabapentin 600 MG TABLET PO ×2 (08:52→20:05)
[2022-03-12] MEDS: Cholecalciferol (Vitamin D3) 25 MCG TABLET 50 MCG PO (08:52)
[2022-03-12] MEDS: Apixaban 5 MG TABLET PO ×2 (08:53→20:05)
[2022-03-12] MEDS: lisinopriL 5 MG TABLET PO (08:53)
[2022-03-12] MEDS: Sertraline HCL 25 MG TABLET PO (08:53)
[2022-03-12] MEDS: Cyanocobalamin (Vitamin B-12) 1,000 MCG TABLET 1000 MCG PO (08:53)
[2022-03-12] MEDS: Tamsulosin HCL 0.4 MG CAPSULE PO (08:53)
[2022-03-12] MEDS: Folic Acid 1 MG in 0.9 % Sodium Chloride 50 ML 100.4 MG IV (10:46)
[2022-03-12] MEDS: Thiamine HCL 100 MG in 0.9 % Sodium Chloride 100 ML 202 MG IV (11:29)
--- NOTE | 2022-03-12 13:14 | P.PNIM_ITS ---
Subjective Subjective Date of Service: 03/12/22 Interval History: seen and examined this morning follow up for AMS, seizure appears more alert this morning initially, able to state name and follow some basic commands. then becomes sleepy unable to obtain full ROS Neurologic Neurologic: Reports confusion Psychiatric Psychiatric: Reports confusion Physical Exam Vital Signs: Vital Signs: Last Vital Signs Temp 97.9 F 03/12/22 11:54 Pulse 90 03/12/22 11:54 Resp 20 03/12/22 11:54 BP 113/60 03/12/22 11:54 Pulse Ox 95 03/12/22 11:54 O2 Del Method 03/12/22 11:54 O2 Flow Rate 97 03/11/22 07:39 FiO2 97 03/10/22 19:41 BMI result Body Mass Index 25.8 Const: Other: appears comfortable sleepy, periods where he difficult to arouse General: confusion and lethargic Orientation/consciousness: confusion and lethargic HEENT: Other: Resp: Effort & Inspection: normal respiratory effort and not tachypneic Cardio: Rate: regular rate Heart sounds: S1 normal heart sound present and S2 normal heart sound present GI: Inspection: No distended Palpation (GI): Soft to palpation and nontender Neuro: Other: initially following basic commands and able to move all 4 extremities; mental status appears to be waxing and waning General: confusion Extrem: Other: moving all 4 extremities General: Yes no pedal edema Objective Data Active Medications Albuterol Sulfate (Albuterol Sulfate (0.083%) 2.5 Mg/3 Ml Vial.Neb) 2.5 mg INHALE RQ4H WHILE AWAKE [facility] Last Admin: 03/12/22 11:36 Dose: 2.5 mg Documented By: KAMRAN Albuterol/Ipratropium (Albuterol/Iprat 2.5/0.5mg 3 Ml Ampul.Neb) 3 ml INHALE RQ 4H PRN PRN Reason: Shortness of Breath/Wheezing Amlodipine Besylate (Amlodipine Besylate 10 Mg Tablet) 10 mg PO DAILY [facility]; Protocol Last Admin: 03/12/22 08:52 Dose: 10 mg Documented By: JIM Apixaban (Apixaban 5 Mg Tablet) 5 mg PO BID [facility] Last Admin: 03/12/22 08:53 Dose: 5 mg Documented By: JIM Atorvastatin Calcium (Atorvastatin Calcium 40 Mg Tablet) 40 mg PO BEDTIME [facility] Last Admin: 03/11/22 19:53 Dose: Not Given Documented By: CHANDU Non-Admin Reason: Patient Condition Contraindication Cyanocobalamin (Cyanocobalamin (Vitamin B-12) 1,000 Mcg Tablet) 1,000 mcg PO DAILY [facility] Last Admin: 03/12/22 08:53 Dose: 1,000 mcg Documented By: JIM Docusate Sodium (Docusate Sodium 100 Mg Capsule) 100 mg PO DAILY PRN PRN Reason: Constipation Fluconazole (Fluconazole 100 Mg Tablet) 100 mg PO DAILY [facility] Gabapentin (Gabapentin 600 Mg Tablet) 600 mg PO BID [facility] Last Admin: 03/12/22 08:52 Dose: 600 mg Documented By: JIM Thiamine HCl 100 mg/ Sodium (Chloride) 101 mls @ 202 mls/hr IV DAILY [facility] Last Infusion: 03/12/22 12:16 Dose: 0 mls/hr Documented By: JIM Folic Acid 1 mg/ Sodium (Chloride) 50.2 mls @ 100.4 mls/hr IV DAILY [facility] Last Infusion: 03/12/22 11:34 Dose: 0 mls/hr Documented By: JIM Levetiracetam (Keppra) 500 mg in 100 mls @ 400 mls/hr IV Q12H [facility] Last Infusion: 03/12/22 10:49 Dose: 0 mls/hr Documented By: JIM Sodium Chloride (Ns) 1,000 mls @ 100 mls/hr IVCONT .Q10H [facility] Last Admin: 03/12/22 10:49 Dose: Not Given Documented By: JIM Non-Admin Reason: previous bag full Lisinopril (Lisinopril 5 Mg Tablet) 5 mg PO DAILY [facility]; Protocol Last Admin: 03/12/22 08:53 Dose: 5 mg Documented By: JIM Methylprednisolone Sodium Succinate (Methylprednisolone Sod Succ 40 Mg/Ml Vial) 40 mg IVPUSH Q8H [facility] Last Admin: 03/12/22 08:52 Dose: 40 mg Documented By: JIM Metoprolol Tartrate (Metoprolol Tartrate 25 Mg Tablet) 25 mg PO BID [facility]; Protocol Last Admin: 03/12/22 08:52 Dose: 25 mg Documented By: JIM Olanzapine (Olanzapine 10 Mg Tablet) 20 mg PO BEDTIME [facility] Last Admin: 03/11/22 19:54 Dose: Not Given Documented By: CHANDU Non-Admin Reason: Patient Condition Contraindication Omeprazole (Omeprazole 20 Mg Capsule.Dr) 20 mg PO DAILY@0630 [facility] Last Admin: 03/12/22 05:23 Dose: Not Given Documented By: CHANDU Non-Admin Reason: Patient Asleep Pharmacy Consult (Consult Rx Perform Med Rec) 1 each MISCELLANE ONCE PRN PRN Reason: Consult order Pharmacy Consult (Consult Rx Etoh Phenob Im/Po) 1 each MISCELLANE ONCE PRN; Protocol PRN Reason: Consult order Phenobarbital (Phenobarbital 30 Mg Tablet) 30 mg PO BID [facility] Last Admin: 03/06/22 11:39 Dose: Not Given Documented By: PETER Non-Admin Reason: on hold Phenobarbital (Phenobarbital 15 Mg Tablet) 15 mg PO DAILY [facility] Sertraline HCl (Sertraline Hcl 25 Mg Tablet) 25 mg PO DAILY [facility] Last Admin: 03/12/22 08:53 Dose: 25 mg Documented By: JIM Sodium Chloride (0.9 % Sodium Chloride Flush 3 Ml Syringe) 3 ml IVFLUSH QSHIFT [facility] Last Admin: 03/12/22 10:48 Dose: Not Given Documented By: JIM Non-Admin Reason: IV Running Tamsulosin HCl (Tamsulosin Hcl 0.4 Mg Capsule) 0.4 mg PO DAILY [facility] Last Admin: 03/12/22 08:53 Dose: 0.4 mg Documented By: JIM Tiotropium [place] (Tiotropium [place] 18 Mcg Cap.W.Dev) 1 puff INHALE RDAILY [facility] Last Admin: 03/12/22 07:45 Dose: 1 puff Documented By: KAMRAN Vitamin D (Cholecalciferol (Vitamin D3) 25 Mcg Tablet) 50 mcg PO DAILY [facility] Last Admin: 03/12/22 08:52 Dose: 50 mcg Documented By: JIM Labs CBC & Chem 7: 03/11/22 09:20 03/11/22 09:20 Assessment and Plan (1) Alcohol withdrawal: Status: Acute (2) Encephalopathy: Status: Acute (3) Thrush, oral: Status: Acute Plan 65-year-old male with a past medical history of hypertension, hyperlipidemia, cardiomyopathy, history of seizures, history of prior DVT on Eliquis, history of alcohol abuse on naltrexone, and encephalopathy admitted for seizure with question of alcohol withdrawal, UTI with sepsis, and encephalopathy Encephalopathy Still with lethergy and confusion. mental status seems to be waxing/waning multifactorial - etoh withdrawal vs med related, stopped taking his medications - ?seizures Ammonia 31, abg ok CT brain neg for acute abnormality sedating meds including phenobarbital, gabapentin were placed on hold with no change and gabapentin was resumed Keppra placed on hold due to letharg with no change and was restarted continue to monitor mental status Discussed with caregiver, This presentation is typical for him after he starts to drink alcohol and stops taking his medications - given waxing/waning and length of symptoms will ask neuro to re-evaluate EEG ordered oral thrush fluconazole due to difficulty following commands and risk of aspiration seizure secondary to etoh w/d vs seizure disorder history of seizure disorder with question of alcohol withdrawal seizure has been treated with phenobarb seen by neuro, darwin d/c and keppra started continue seizure precautions alcohol withdrawal patient found seizing with known history of alcohol abuse phenobarb held d/t sedation COPD exacerbation continue IV solumedrol and breathing treatments Left foot ulcer probable r/t PVD. does not appear infected at this time arterial US showing severe PVD and occlusion of left SFA seen by vascular surgery - recommend conservative management at this time given other acute medical issues elevated CPk secondary to seizure. trending down UTI urine culture growing aerococcus viridans, probably contaminant given encephalopathy completed course of ceftriaxone LLE cellulitis resolved. venous duplex negative for DVT xray foot negative hypertension urgency on admission bp overall improved, some intermittent high readings continue baseline meds follow BP closely history DVT venous duplex negative continue Eliquis cardiomyopathy/ Hld continue statin COPD continue maintenance medications albuterol p.r.n. GERD continue PPI Eliquis Full code attending Dr. Kapadia Patient requires ongoing inpatient stay due to encephalopathy, seizure, re-eval by neurology Quality Stroke Does the patient have a stroke diagnosis?: No VTE Prior VTE?: No VTE Risk Level:: Medical - moderate - high VTE Device Contraindication: Treatment Not Indicated VTE Drug Contraindication: N/A - Med Ordered
--- NOTE | 2022-03-12 13:59 | P.CONGS_ITS ---
History of Present Illness Consult details Consult date: 03/12/22 Narrative: Very complex 65-year-old gentleman who presented to the hospital with seizures after EMS found him down seizing on the sidewalk and incontinent of urine. He has a prior history of hypertension hyperlipidemia cardiac disease seizures DVT and alcohol abuse. He has been subsequently treated and seen in the hospital. Upon workup he was found to have this nonhealing left dorsal foot ulcer. He now presents to us for vascular evaluation Review of Systems Review of Systems: Yes all other systems are reviewed and are negative Constitutional: Constitutional: Reports no additional constitutional complaints ENT: Reports Normal hearing present Cardiovascular: Cardiovascular: Denies chest pain, Denies chest pain at rest, Denies chest pain with activity and Denies pedal edema Respiratory: Respiratory: Denies cough Gastrointestinal: Gastrointestinal: Denies abdominal pain Musculoskeletal: Musculoskeletal: Denies abnormal gait, Denies muscle cramps and Denies radiating pain into limb Integumentary/Breasts: Skin/Breast: Denies skin ulcer and Denies wounds Neurologic: Reports Normal hearing present and Denies abnormal gait Psychiatric: Psychiatric: Reports no additional psychiatric complaints PMFSH Past Medical History Medical History Alcohol abuse Cardiomyopathy Cellulitis Dementia DVT (deep venous thrombosis) DVT of deep femoral vein GERD (gastroesophageal reflux disease) Hepatitis C antibody positive in blood Hypertension Seizure Family History Family History Father No problems noted. Mother No problems noted. Brother Cancer Sister No problems noted. Surgical History Surgical History No pertinent past surgical history Social History Social History Household Members: Unknown / Unable to assess Housing: Unknown / Unable to assess Unable to assess alcohol history related to: Unknown Alcohol intake: current Alcohol intake frequency: a few times a week Alcohol type: beer Patient Tobacco Use Status: Tobacco use Unknown Cigarettes Per Day: 7 Use of substances other than those prescribed or required for medical reasons: Unknown Substance Use Type: Unknown Currently Displaying Signs/Symptoms of Drug Intoxication Withdrawal: No Advance Directives: Yes Advance Directives on File: Yes Advance Directives Date on File: 10/11/20 Recently lost weight without trying: Unsure service: No Current occupational status: unemployed and disabled Meds Allergies Allergy/AdvReac Type Severity Reaction Status Date / Time No Known Allergies Allergy Verified 12/29/21 12:36 [No Known Allergies*] Active Medications: Current Medications Albuterol Sulfate (Albuterol Sulfate (0.083%) 2.5 Mg/3 Ml Vial.Neb) 2.5 mg INHALE RQ4H WHILE AWAKE [facility] Last Admin: 03/12/22 11:36 Dose: 2.5 mg Albuterol/Ipratropium (Albuterol/Iprat 2.5/0.5mg 3 Ml Ampul.Neb) 3 ml INHALE RQ4H PRN PRN Reason: Shortness of Breath/Wheezing Amlodipine Besylate (Amlodipine Besylate 10 Mg Tablet) 10 mg PO DAILY [facility]; Protocol Last Admin: 03/12/22 08:52 Dose: 10 mg Apixaban (Apixaban 5 Mg Tablet) 5 mg PO BID [facility] Last Admin: 03/12/22 08:53 Dose: 5 mg Atorvastatin Calcium (Atorvastatin Calcium 40 Mg Tablet) 40 mg PO BEDTIME [facility] Last Admin: 03/11/22 19:53 Dose: Not Given Cyanocobalamin (Cyanocobalamin (Vitamin B-12) 1,000 Mcg Tablet) 1,000 mcg PO DAILY [facility] Last Admin: 03/12/22 08:53 Dose: 1,000 mcg Docusate Sodium (Docusate Sodium 100 Mg Capsule) 100 mg PO DAILY PRN PRN Reason: Constipation Fluconazole (Fluconazole 100 Mg Tablet) 100 mg PO DAILY [facility] Gabapentin (Gabapentin 600 Mg Tablet) 600 mg PO BID [facility] Last Admin: 03/12/22 08:52 Dose: 600 mg Thiamine HCl 100 mg/ Sodium (Chloride) 101 mls @ 202 mls/hr IV DAILY [facility] Last Infusion: 03/12/22 12:16 Dose: Infused Folic Acid 1 mg/ Sodium (Chloride) 50.2 mls @ 100.4 mls/hr IV DAILY [facility] Last Infusion: 03/12/22 11:34 Dose: Infused Levetiracetam (Keppra) 500 mg in 100 mls @ 400 mls/hr IV Q12H [facility] Last Infusion: 03/12/22 10:49 Dose: Infused Sodium Chloride (Ns) 1,000 mls @ 100 mls/hr IVCONT .Q10H [facility] Last Admin: 03/12/22 10:49 Dose: Not Given Lisinopril (Lisinopril 5 Mg Tablet) 5 mg PO DAILY [facility]; Protocol Last Admin: 03/12/22 08:53 Dose: 5 mg Methylprednisolone Sodium Succinate (Methylprednisolone Sod Succ 40 Mg/Ml Vial) 40 mg IVPUSH Q8H [facility] Last Admin: 03/12/22 08:52 Dose: 40 mg Metoprolol Tartrate (Metoprolol Tartrate 25 Mg Tablet) 25 mg PO BID [facility]; Protocol Last Admin: 03/12/22 08:52 Dose: 25 mg Olanzapine (Olanzapine 10 Mg Tablet) 20 mg PO BEDTIME [facility] Last Admin: 03/11/22 19:54 Dose: Not Given Omeprazole (Omeprazole 20 Mg Capsule.Dr) 20 mg PO DAILY@0630 [facility] Last Admin: 03/12/22 05:23 Dose: Not Given Pharmacy Consult (Consult Rx Perform Med Rec) 1 each MISCELLANE ONCE PRN PRN Reason: Consult order Pharmacy Consult (Consult Rx Etoh Phenob Im/Po) 1 each MISCELLANE ONCE PRN; Protocol PRN Reason: Consult order Phenobarbital (Phenobarbital 30 Mg Tablet) 30 mg PO BID [facility] Last Admin: 03/06/22 11:39 Dose: Not Given Phenobarbital (Phenobarbital 15 Mg Tablet) 15 mg PO DAILY [facility] Sertraline HCl (Sertraline Hcl 25 Mg Tablet) 25 mg PO DAILY [facility] Last Admin: 03/12/22 08:53 Dose: 25 mg Sodium Chloride (0.9 % Sodium Chloride Flush 3 Ml Syringe) 3 ml IVFLUSH QSHIFT [facility] Last Admin: 03/12/22 10:48 Dose: Not Given Tamsulosin HCl (Tamsulosin Hcl 0.4 Mg Capsule) 0.4 mg PO DAILY [facility] Last Admin: 03/12/22 08:53 Dose: 0.4 mg Tiotropium [place] (Tiotropium Riley 18 Mcg Cap.W.Dev) 1 puff INHALE RDAILY [facility] Last Admin: 03/12/22 07:45 Dose: 1 puff Vitamin D (Cholecalciferol (Vitamin D3) 25 Mcg Tablet) 50 mcg PO DAILY [facility] Last Admin: 03/12/22 08:52 Dose: 50 mcg Home Medications Medication Instructions Recorded Confirmed Last Taken Type atorvastatin 40 mg tablet 40 mg PO BEDTIME 04/01/20 03/03/22 Unknown History cholecalciferol (vitamin D3) 50 50 mcg PO DAILY 04/01/20 03/03/22 Unknown History mcg (2,000 unit) capsule gabapentin 600 mg tablet 600 mg PO BID 04/01/20 03/03/22 Unknown History metoprolol succinate 25 mg 25 mg PO DAILY 04/01/20 03/03/22 Unknown History tablet,extended release 24 hr phenytoin 50 mg chewable tablet 50 mg PO BID 04/01/20 03/03/22 Unknown History tamsulosin 0.4 mg capsule 0.4 mg PO DAILY 04/01/20 03/03/22 Unknown History umeclidinium 62.5 mcg/actuation 1 puff inhalation DAILY 09/26/20 03/03/22 Unknown History blister powder for inhalation (Incruse Ellipta) sertraline 25 mg tablet 1 tab PO DAILY 06/23/21 03/03/22 Unknown History olanzapine 20 mg tablet 1 tab PO BEDTIME 09/02/21 03/03/22 Unknown History apixaban 5 mg tablet (Eliquis) 5 mg PO BID 11/04/21 03/03/22 Unknown History cyanocobalamin (vitamin B-12) 1,000 mcg PO QAM 11/04/21 03/03/22 Unknown History 1,000 mcg tablet lisinopril 5 mg tablet 5 mg PO DAILY 11/04/21 03/03/22 Unknown History Physical Exam Vital Signs: Vital Signs: Last Vital Signs Temp 97.9 F 03/12/22 11:54 Pulse 90 03/12/22 11:54 Resp 20 03/12/22 11:54 BP 113/60 03/12/22 11:54 Pulse Ox 95 03/12/22 11:54 O2 Del Method 03/12/22 11:54 O2 Flow Rate 97 03/11/22 07:39 FiO2 97 03/10/22 19:41 BMI result Body Mass Index 25.8 Const: General: cooperative, healthy appearing and comfortable Orientation/consciousness: oriented to person, oriented to place and oriented to time HEENT: Head: Yes normal to inspection Neck: Neck: Yes normal visual inspection Carotids: no bruits Chest: Chest palpation & inspection: normal inspection of the chest Resp: Effort & Inspection: normal respiratory effort and able to speak in complete sentences Auscultation: clear to auscultation bilaterally, no crackles, no rales, no rhonchi and no wheezes Cardio: Rate: regular rate Rhythm: regular rhythm Heart sounds: S1 normal heart sound present and S2 normal heart sound present Bruits: no carotid bruits Peripheral pulses: Peripheral pulses 2+ throughout GI: Inspection: Yes normal to inspection Skin: Other: Left foot dorsum ulceration. Wounds: wounds noted Hair: normal Neuro: General: oriented to person, oriented to place and oriented to time Cranial nerves: Yes CN's II-XII intact bilaterally and Yes Normal hearing present Cognition (Neuro): normal cognition Motor exam (neuro): 5/5 motor strength present throughout Extrem: Other: venous exam: No significant superficial varicosities or spider telangiectasias, minimal edema General: No clubbing, No cyanosis and No edema Psych: Appearance: grossly normal Mental Status: mental status grossly normal Speech and movement: Normal speech and movement present Results Labs Result diagrams: 03/11/22 09:20 03/11/22 09:20 Labs: Urine 03/03/22 Range/Units 10:41 Urine Color Dark Yellow Urine Appearance Turbid Urine pH 7.0 (5.0-9.0) Ur Specific [place] 1.025 (1.005-1.025) Urine Protein 30 (1+) H (Neg-Trace) mg/dL Urine Glucose (UA) Negative (Negative) mg/dL All other labs normal. Assessment and Plan (1) Ulcer of foot: Status: Acute Plan In short patient has a nonhealing foot ulcer. He currently has significant encephalopathy. He was lethargic and ported respond at the time of my exam. At the current time he has other multiple medical issues going on. The wound is not penetrating and does not look as if it is infected. Would continue with local wound care and continued medical management of this patient. Should he improve would be happy to workup in further pursue that left lower extremity provided that he is ambulatory. We will peripherally follow with you. Thank you for allowing us to assist in his care. Procedures Date of Service Date of Service: 03/12/22
[2022-03-12 15:41] LABS: Glucose, Whole Blood 126 mg/dL (60-115)
--- NOTE | 2022-03-12 16:00 | PC.NURSE ---
At 15:28 Pt noted to have left sided facial droop and not able to open left eye. PA notified and at bedside. BP: 132/61, 97% on RA.HR 73, Blood Glucose 128. Pa order a Heat CT which came negative for a acute stroke. will continue to monitor.
[2022-03-12] MEDS: 0.9 % Sodium Chloride 1,000 ML 100 ML IVCONT (17:03)
[2022-03-12] MEDS: Atorvastatin Calcium 40 MG TABLET PO (20:05)
[2022-03-12] MEDS: OLANZapine 10 MG TABLET 20 MG PO (20:05)
[2022-03-12] MEDS: 0.9 % Sodium Chloride Flush 3 ML SYRINGE IVFLUSH (20:13)
[2022-03-13] VITALS (9 sets, daily range): BP systolic 141–182; BP diastolic 62–84; PULSE 72–95; RESP 12–20; TEMP 36.1–37; O2SAT 93–99
[2022-03-13] MEDS: 0.9 % Sodium Chloride 1,000 ML 100 ML IVCONT (03:53)
[2022-03-13 08:03] LABS: Hematocrit 38.9 % (42.0-52.0); Hemoglobin 12.6 g/dl (14.0-18.0); Mean Corpuscular HGB Conc 32.4 g/dl (31.0-36.0); Mean Corpuscular Hemoglobin 29.2 pg (27.0-33.0); Mean Platelet Volume 8.5 fL (9.4-12.4); Platelet Count 367 X10*3/uL (160-400); Red Blood Count 4.32 X10*6/uL (4.60-5.80); Red Cell Distribution Width 12.3 % (11.0-16.0); White Blood Count 8.8 X10*3/uL (4.8-10.8)
[2022-03-13] MEDS: Albuterol Sulfate (0.083%) 2.5 MG/3 ML VIAL.NEB INHALE ×4 (08:15→19:56)
[2022-03-13 08:24] LABS: Anion Gap 17 (12-20); Blood Urea Nitrogen 11 mg/dL (9-16); Carbon Dioxide 19 mmol/L (22-29); Chloride 112 mmol/L (96-108); Creatinine Clr Calc Pharmacy 125.7; Estimated Glomerular Filt Rate > 60; Glucose Random 110 mg/dL (60-115); Potassium 4.9 mmol/L (3.3-5.1); Sodium 143 mmol/L (135-145)
[2022-03-13] MEDS: Folic Acid 1 MG in 0.9 % Sodium Chloride 50 ML 100.4 MG IV (08:45)
[2022-03-13] MEDS: levETIRAcetam in NaCl (iso-os) 500 MG/100 ML PIGGYBACK 400 MG IV (08:47)
[2022-03-13] MEDS: methylPREDNISolone Sod Succ 40 MG/ML VIAL IVPUSH ×2 (08:47→21:23)
[2022-03-13] MEDS: Metoprolol Tartrate 25 MG TABLET PO ×2 (09:11→21:23)
[2022-03-13] MEDS: Fluconazole 100 MG TABLET PO (09:11)
[2022-03-13] MEDS: Cyanocobalamin (Vitamin B-12) 1,000 MCG TABLET 1000 MCG PO (09:11)
[2022-03-13] MEDS: Tamsulosin HCL 0.4 MG CAPSULE PO (09:11)
[2022-03-13] MEDS: amLODIPine Besylate 10 MG TABLET PO (09:11)
[2022-03-13] MEDS: Sertraline HCL 25 MG TABLET PO (09:11)
[2022-03-13] MEDS: Cholecalciferol (Vitamin D3) 25 MCG TABLET 50 MCG PO (09:11)
[2022-03-13] MEDS: Apixaban 5 MG TABLET PO ×2 (09:11→21:23)
[2022-03-13] MEDS: Gabapentin 600 MG TABLET PO ×2 (09:11→21:22)
[2022-03-13] MEDS: 0.9 % Sodium Chloride Flush 3 ML SYRINGE IVFLUSH ×3 (09:12→21:24)
[2022-03-13] MEDS: lisinopriL 5 MG TABLET PO (09:12)
--- NOTE | 2022-03-13 10:07 | PM.NEUROCN ---
History of Present Illness Data of Consult Service Date: 03/13/22 Primary Care Provider: Unknown Physician HPI Reason for consult: Encephalopathy 65-year-old male with a past medical history of hypertension, hyperlipidemia, cardiomyopathy, history of seizures, history of prior DVT on Eliquis,? history of alcohol abuse on naltrexone, and encephalopathy admitted for seizure with question of alcohol withdrawal, UTI with sepsis, and encephalopathy. No obvious convulsion has been noted recently. Review of Systems Review of Systems: Could not be done with [facility] Past Medical History Medical History Alcohol abuse Cardiomyopathy Cellulitis Dementia DVT (deep venous thrombosis) DVT of deep femoral vein GERD (gastroesophageal reflux disease) Hepatitis C antibody positive in blood Hypertension Seizure Family History Family History Father No problems noted. Mother No problems noted. Brother Cancer Sister No problems noted. Surgical History Surgical History No pertinent past surgical history Social History Social History Household Members: Unknown / Unable to assess Housing: Unknown / Unable to assess Unable to assess alcohol history related to: Unknown Alcohol intake: current Alcohol intake frequency: a few times a week Alcohol type: beer Patient Tobacco Use Status: Tobacco use Unknown Cigarettes Per Day: 7 Use of substances other than those prescribed or required for medical reasons: Unknown Substance Use Type: Unknown Currently Displaying Signs/Symptoms of Drug Intoxication Withdrawal: No Advance Directives: Yes Advance Directives on File: Yes Advance Directives Date on File: 10/11/20 Recently lost weight without trying: Unsure service: No Current occupational status: unemployed and disabled Meds Allergies Allergy/AdvReac Type Severity Reaction Status Date / Time No Known Allergies Allergy Verified 12/29/21 12:36 [No Known Allergies*] Active Medications: Current Medications Albuterol Sulfate (Albuterol Sulfate (0.083%) 2.5 Mg/3 Ml Vial.Neb) 2.5 mg INHALE RQ4H WHILE AWAKE [facility] Last Admin: 03/13/22 08:15 Dose: 2.5 mg Albuterol/Ipratropium (Albuterol/Iprat 2.5/0.5mg 3 Ml Ampul.Neb) 3 ml INHALE RQ4H PRN PRN Reason: Shortness of Breath/Wheezing Amlodipine Besylate (Amlodipine Besylate 10 Mg Tablet) 10 mg PO DAILY [facility]; Protocol Last Admin: 03/13/22 09:11 Dose: 10 mg Apixaban (Apixaban 5 Mg Tablet) 5 mg PO BID [facility] Last Admin: 03/13/22 09:11 Dose: 5 mg Atorvastatin Calcium (Atorvastatin Calcium 40 Mg Tablet) 40 mg PO BEDTIME [facility] Last Admin: 03/12/22 20:05 Dose: 40 mg Cyanocobalamin (Cyanocobalamin (Vitamin B-12) 1,000 Mcg Tablet) 1,000 mcg PO DAILY [facility] Last Admin: 03/13/22 09:11 Dose: 1,000 mcg Docusate Sodium (Docusate Sodium 100 Mg Capsule) 100 mg PO DAILY PRN PRN Reason: Constipation Fluconazole (Fluconazole 100 Mg Tablet) 100 mg PO DAILY [facility] Last Admin: 03/13/22 09:11 Dose: 100 mg Gabapentin (Gabapentin 600 Mg Tablet) 600 mg PO BID [facility] Last Admin: 03/13/22 09:11 Dose: 600 mg Thiamine HCl 100 mg/ Sodium (Chloride) 101 mls @ 202 mls/hr IV DAILY [facility] Last Infusion: 03/12/22 12:16 Dose: Infused Folic Acid 1 mg/ Sodium (Chloride) 50.2 mls @ 100.4 mls/hr IV DAILY [facility] Last Admin: 03/13/22 08:45 Dose: 100.4 mls/hr Levetiracetam (Keppra) 500 mg in 100 mls @ 400 mls/hr IV Q12H [facility] Last Infusion: 03/13/22 08:57 Dose: 0 mls/hr Sodium Chloride (Ns) 1,000 mls @ 100 mls/hr IVCONT .Q10H [facility] Last Admin: 03/13/22 03:53 Dose: 100 mls/hr Lisinopril (Lisinopril 5 Mg Tablet) 5 mg PO DAILY [facility]; Protocol Last Admin: 03/13/22 09:12 Dose: 5 mg Methylprednisolone Sodium Succinate (Methylprednisolone Sod Succ 40 Mg/Ml Vial) 40 mg IVPUSH Q8H [facility] Last Admin: 03/13/22 08:47 Dose: 40 mg Metoprolol Tartrate (Metoprolol Tartrate 25 Mg Tablet) 25 mg PO BID [facility]; Protocol Last Admin: 03/13/22 09:11 Dose: 25 mg Olanzapine (Olanzapine 10 Mg Tablet) 20 mg PO BEDTIME [facility] Last Admin: 03/12/22 20:05 Dose: 20 mg Omeprazole (Omeprazole 20 Mg Capsule.Dr) 20 mg PO DAILY@0630 [facility] Last Admin: 03/13/22 06:34 Dose: Not Given Pharmacy Consult (Consult Rx Perform Med Rec) 1 each MISCELLANE ONCE PRN PRN Reason: Consult order Pharmacy Consult (Consult Rx Etoh Phenob Im/Po) 1 each MISCELLANE ONCE PRN; Protocol PRN Reason: Consult order Phenobarbital (Phenobarbital 30 Mg Tablet) 30 mg PO BID [facility] Last Admin: 03/06/22 11:39 Dose: Not Given Phenobarbital (Phenobarbital 15 Mg Tablet) 15 mg PO DAILY [facility] Sertraline HCl (Sertraline Hcl 25 Mg Tablet) 25 mg PO DAILY [facility] Last Admin: 03/13/22 09:11 Dose: 25 mg Sodium Chloride (0.9 % Sodium Chloride Flush 3 Ml Syringe) 3 ml IVFLUSH QSHIFT [facility] Last Admin: 03/13/22 09:12 Dose: 3 ml Tamsulosin HCl (Tamsulosin Hcl 0.4 Mg Capsule) 0.4 mg PO DAILY [facility] Last Admin: 03/13/22 09:11 Dose: 0.4 mg Tiotropium [place] (Tiotropium [place] 18 Mcg Cap.W.Dev) 1 puff INHALE RDAILY [facility] Last Admin: 03/13/22 08:15 Dose: 1 puff Vitamin D (Cholecalciferol (Vitamin D3) 25 Mcg Tablet) 50 mcg PO DAILY [facility] Last Admin: 03/13/22 09:11 Dose: 50 mcg Home Medications Medication Instructions Recorded Confirmed Last Taken Type atorvastatin 40 mg tablet 40 mg PO BEDTIME 04/01/20 03/03/22 Unknown History cholecalciferol (vitamin D3) 50 50 mcg PO DAILY 04/01/20 03/03/22 Unknown History mcg (2,000 unit) capsule gabapentin 600 mg tablet 600 mg PO BID 04/01/20 03/03/22 Unknown History metoprolol succinate 25 mg 25 mg PO DAILY 04/01/20 03/03/22 Unknown History tablet,extended release 24 hr phenytoin 50 mg chewable tablet 50 mg PO BID 04/01/20 03/03/22 Unknown History tamsulosin 0.4 mg capsule 0.4 mg PO DAILY 04/01/20 03/03/22 Unknown History umeclidinium 62.5 mcg/actuation 1 puff inhalation DAILY 09/26/20 03/03/22 Unknown History blister powder for inhalation (Incruse Ellipta) sertraline 25 mg tablet 1 tab PO DAILY 06/23/21 03/03/22 Unknown History olanzapine 20 mg tablet 1 tab PO BEDTIME 09/02/21 03/03/22 Unknown History apixaban 5 mg tablet (Eliquis) 5 mg PO BID 11/04/21 03/03/22 Unknown History cyanocobalamin (vitamin B-12) 1,000 mcg PO QAM 11/04/21 03/03/22 Unknown History 1,000 mcg tablet lisinopril 5 mg tablet 5 mg PO DAILY 11/04/21 03/03/22 Unknown History Physical Exam Vital Signs: Vital Signs: Last Vital Signs Temp 96.9 F 03/13/22 03:10 Pulse 76 03/13/22 08:16 Resp 15 03/13/22 08:16 BP 182/84 H 03/13/22 03:10 Pulse Ox 96 03/13/22 08:00 O2 Del Method 03/13/22 08:00 O2 Flow Rate 97 03/11/22 07:39 FiO2 97 03/10/22 19:41 BMI result Body Mass Index 25.8 Neuro: Other: He is alert and awake looking around made eye contact and answered simple questions. He asked me how I was doing. Results Labs CBC & Chem 7: 03/13/22 07:50 03/13/22 07:50 Labs: Short CBC 03/13/22 Range/Units 07:50 WBC 8.8 (4.8-10.8) X10*3/uL Hgb 12.6 L (14.0-18.0) g/dl Hct 38.9 L (42.0-52.0) % Plt Count 367 (160-400) X10*3/uL BMP 03/13/22 07:50 Sodium 143 Potassium 4.9 Chloride 112 H Carbon Dioxide 19 L BUN 11 Creatinine 0.57 Calcium 9.0 Microbiology Microbiology Results: Microbiology 03/03/22 10:37 Blood - Venous Blood Culture - Final No growth after 5 days. 03/03/22 10:37 Blood - Venous Blood Culture - Final No growth after 5 days. 03/03/22 Unknown Urine Catheterized - Straight Catheter Urine Culture - Final Aerococcus viridans Assessment and Plan (1) Encephalopathy: Status: Acute Multifactorial encephalopathy with underlying history of alcohol abuse with possibility of alcoholic dementia but there was also possibility of underlying cerebral palsy type of pathology or a psychiatric disease affecting his cognitive abilities. On my examination today, he was alert and awake answering questions with no sign of distress. If possible, I recommend obtaining an MRI of brain without contrast to have better understanding of his neurological condition. As far as antiepileptic medicines are concerned, I would recommend levetiracetam 500 mg twice a day. I did notice that he is on phenytoin 50 mg twice a day, which was not enough to prevent seizures and not the best medicine for him. Procedures Date of Service Date of Service: 03/13/22
[2022-03-13] MEDS: Thiamine HCL 100 MG in 0.9 % Sodium Chloride 100 ML 202 MG IV (11:18)
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
--- NOTE | 2022-03-13 14:57 | MHC.CM.PN ---
[facility] LIAISON IN TO SEE PT, [facility] CONTINUING TO OFFER A BED AND WILL CONTINUE TO FOLLOW FOR DC READINESS.
--- NOTE | 2022-03-13 15:26 | MHC.SLORD ---
Addendum entered and electronically signed by Alison Hunter MA, [facility]ARABIC TEACHER 03/13/22 17:01: D.S. Original Note: Speech Language Pathology Order Status: ARABIC TEACHER walked into pt's room to check board for RN and EXAMINATION SCORER name. Pt was reclined in bed eating ice cream solo without any staff present in room. Pt presented w/ thick lingual coating, bolus sitting in mouth, ice cream on chest attempting to put empty spoon in mouth. Pt not responsive to verbal cues to swallow or to an empty spoon. Pt resistent to give ARABIC TEACHER cup of ice cream and spoon. ARABIC TEACHER sat pt upright in bed. ARABIC TEACHER presented trace amount of ice cream on spoon to cue swallow to clear residue. Pt held bolus in mouth without swallowing. ARABIC TEACHER removed some of bolus from oral cavity w/ swab. Pt did not allow swab in back of mouth. ARABIC TEACHER presented swab with trace amount of water. Pt reflexively sucked on swab and swallowed. ARABIC TEACHER attempted to clear oral residue w/ alcohol free mouthwash and swab. Minimal residue removed. Pt stated agua, ARABIC TEACHER presented additional swab w/ trace water. Pt reflexively sucked and swallowed again. Pt requested agua again, however no additional PO was presented d/t pt's increased lethargic state. Pt inappropriate for PO in present state. Pt requires 1:1 assist for feeding. Do not feed if pt presents w/ lethargic state.
[2022-03-13] MEDS: OLANZapine 10 MG TABLET 20 MG PO (21:23)
[2022-03-13] MEDS: levETIRAcetam 500 MG TABLET PO (21:23)
[2022-03-13] MEDS: Atorvastatin Calcium 40 MG TABLET PO (21:23)
--- NOTE | 2022-03-13 22:41 | PM.EVENT ---
Event Note Date of Service: 03/13/22 Event Note: pt was given PO meds crushed with applesauce, and per nurse he really struggled . pt made compeltely NPO. Switched keppra to IV
[2022-03-14] VITALS (10 sets, daily range): BP systolic 149–178; BP diastolic 67–90; PULSE 61–81; RESP 16–19; TEMP 36.1–36.9; O2SAT 92–97
--- NOTE | 2022-03-14 00:20 | PM.EVENT ---
Event Note Date of Service: 03/14/22 Event Note: pt very agitated , combative, pulled iv, refusing iv line. given 2.5 im haldol
[2022-03-14] MEDS: Haloperidol Lactate 5 MG/ML VIAL 2.5 MG IM (00:47)
[2022-03-14 06:28] LABS: Anion Gap 15 (12-20); Blood Urea Nitrogen 11 mg/dL (9-16); Calcium 9.4 mg/dL (8.4-10.2); Carbon Dioxide 23 mmol/L (22-29); Chloride 107 mmol/L (96-108); Creatinine Clr Calc Pharmacy 110.2; Estimated Glomerular Filt Rate > 60; Glucose Random 122 mg/dL (60-115); Sodium 141 mmol/L (135-145)
[2022-03-14] MEDS: Albuterol Sulfate (0.083%) 2.5 MG/3 ML VIAL.NEB INHALE (08:12)
[2022-03-14] MEDS: Sertraline HCL 25 MG TABLET PO (11:07)
[2022-03-14] MEDS: amLODIPine Besylate 10 MG TABLET PO (11:07)
[2022-03-14] MEDS: Gabapentin 600 MG TABLET PO ×2 (11:07→21:57)
[2022-03-14] MEDS: Thiamine HCL 100 MG TABLET PO (11:08)
[2022-03-14] MEDS: Folic Acid 1 MG TABLET PO (11:08)
[2022-03-14] MEDS: Cyanocobalamin (Vitamin B-12) 1,000 MCG TABLET 1000 MCG PO (11:08)
[2022-03-14] MEDS: Metoprolol Tartrate 25 MG TABLET PO ×2 (11:08→21:57)
[2022-03-14] MEDS: Cholecalciferol (Vitamin D3) 25 MCG TABLET 50 MCG PO (11:08)
[2022-03-14] MEDS: lisinopriL 5 MG TABLET PO (11:08)
[2022-03-14] MEDS: Fluconazole 100 MG TABLET PO (11:08)
[2022-03-14] MEDS: Tamsulosin HCL 0.4 MG CAPSULE PO (11:09)
[2022-03-14] MEDS: 0.9 % Sodium Chloride Flush 3 ML SYRINGE IVFLUSH ×2 (11:09→11:34)
[2022-03-14] MEDS: Apixaban 5 MG TABLET PO ×2 (11:09→21:57)
[2022-03-14] MEDS: levETIRAcetam in NaCl (iso-os) 500 MG/100 ML PIGGYBACK 400 MG IV (11:34)
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
[2022-03-14] MEDS: Albuterol/Iprat 2.5/0.5MG 3 ML AMPUL.NEB INHALE ×3 (15:18→23:23)
[2022-03-14] MEDS: OLANZapine 10 MG TABLET 20 MG PO (21:57)
[2022-03-14] MEDS: Atorvastatin Calcium 40 MG TABLET PO (21:57)
--- NOTE | 2022-03-14 22:43 | PM.EVENT ---
Event Note Date of Service: 03/14/22 Event Note: pt pulled IV line 3 times. will nopt leave any iv lines in. pt receiving IV keppra
[2022-03-15] VITALS (7 sets, daily range): BP systolic 133–186; BP diastolic 69–88; PULSE 70–89; RESP 12–20; TEMP 36–37; O2SAT 92–97
--- NOTE | 2022-03-15 05:09 | PC.NURSE ---
Pt became agitated and pulled out IV. I reached out to MD since he has pulled several IVs already. MD is aware and said to continue to monitor. LINDSAY galaviz was held due to this.
[2022-03-15 06:12] LABS: Hematocrit 39.7 % (42.0-52.0); Hemoglobin 12.9 g/dl (14.0-18.0); Mean Corpuscular HGB Conc 32.5 g/dl (31.0-36.0); Mean Corpuscular Hemoglobin 29.6 pg (27.0-33.0); Mean Corpuscular Volume 91.1 fL (80.0-98.0); Mean Platelet Volume 8.5 fL (9.4-12.4); Platelet Count 387 X10*3/uL (160-400); Red Blood Count 4.36 X10*6/uL (4.60-5.80); Red Cell Distribution Width 12.4 % (11.0-16.0); White Blood Count 9.5 X10*3/uL (4.8-10.8)
[2022-03-15 06:40] LABS: Alanine Aminotransferase 29 U/L (0-40); Albumin Level 3.4 g/dL (3.5-5.0); Alkaline Phosphatase 94 U/L (39-117); Anion Gap 16 (12-20); Aspartate Amino Transferase 29 U/L (5-37); Bilirubin Direct 0.3 mg/dL (0.0-0.5); Bilirubin Total 0.4 mg/dL (0.0-1.0); Blood Urea Nitrogen 14 mg/dL (9-16); Calcium 9.3 mg/dL (8.4-10.2); Carbon Dioxide 25 mmol/L (22-29); Chloride 105 mmol/L (96-108); Creatinine Clr Calc Pharmacy 103.8; Estimated Glomerular Filt Rate > 60; Glucose Random 94 mg/dL (60-115); Sodium 142 mmol/L (135-145); Total Protein 7.2 g/dL (6.5-8.0)
[2022-03-15] MEDS: Omeprazole 20 MG CAPSULE.DR PO (06:46)
[2022-03-15] MEDS: Albuterol/Iprat 2.5/0.5MG 3 ML AMPUL.NEB INHALE (07:56)
[2022-03-15] MEDS: levETIRAcetam 500 MG TABLET PO ×2 (09:24→21:05)
[2022-03-15] MEDS: Cyanocobalamin (Vitamin B-12) 1,000 MCG TABLET 1000 MCG PO (09:24)
[2022-03-15] MEDS: Cholecalciferol (Vitamin D3) 25 MCG TABLET 50 MCG PO (09:24)
[2022-03-15] MEDS: Fluconazole 100 MG TABLET PO (09:25)
[2022-03-15] MEDS: Thiamine HCL 100 MG TABLET PO (09:25)
[2022-03-15] MEDS: amLODIPine Besylate 10 MG TABLET PO (09:25)
[2022-03-15] MEDS: Apixaban 5 MG TABLET PO ×2 (09:25→21:05)
[2022-03-15] MEDS: Tamsulosin HCL 0.4 MG CAPSULE PO (09:25)
[2022-03-15] MEDS: Metoprolol Tartrate 25 MG TABLET PO ×2 (09:25→21:05)
[2022-03-15] MEDS: Sertraline HCL 25 MG TABLET PO (09:25)
[2022-03-15] MEDS: Gabapentin 600 MG TABLET PO ×2 (09:25→21:06)
[2022-03-15] MEDS: Folic Acid 1 MG TABLET PO (09:25)
[2022-03-15] MEDS: lisinopriL 5 MG TABLET PO (09:25)
--- NOTE | 2022-03-15 11:16 | PC.NURSE ---
GI consulted at this time.
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
--- NOTE | 2022-03-15 14:10 | P.CNGI_ITS ---
History of Present Illness Data of Consult Service Date: 03/15/22 Requesting physician: Danyell Liang Primary Care Provider: Unknown Physician HPI Reason for consult: oral thrush 65-year-old male with a past medical history of hypertension, hyperlipidemia, cardiomyopathy, history of seizures, history of prior DVT on Eliquis,? history of alcohol abuse on naltrexone, and encephalopathy admitted for seizure with question of alcohol withdrawal, UTI with sepsis, and encephalopathy who I am seeing for esophagitis and concern for oral thrush. THere is no history from patient, he appears altered, eyes firmly shut and groaning at times. Doesn;t answer me. Per nursing team and hospitalist patient has been getting more confused and less responsive since admission, being evaluated by neurology for this. He does brightne up at night and can even eat as long as he is encouraged with one to one sitter. he has been put on fluconazole in case of thrush and PPI for possible esophagitis. Apparently patient lives at home and may have issues wt alcohol abuse. He also has a left foot ulcer which is being monitored Prior GI note with mention patient has cirrhosis (Dr Laureano 07/2020), but I disagree with that as his biochemical profle and imaging studies do not support this. Review of Systems Review of Systems: Yes Unobtainable due to mental condition and Unobtainable due to mental status PMFSH Past Medical History Medical History Alcohol abuse Cardiomyopathy Cellulitis Dementia DVT (deep venous thrombosis) DVT of deep femoral vein GERD (gastroesophageal reflux disease) Hepatitis C antibody positive in blood Hypertension Seizure Family History Family History Father No problems noted. Mother No problems noted. Brother Cancer Sister No problems noted. Surgical History Surgical History No pertinent past surgical history Social History Social History Household Members: Unknown / Unable to assess Housing: Unknown / Unable to assess Unable to assess alcohol history related to: Unknown Alcohol intake: current Alcohol intake frequency: a few times a week Alcohol type: beer Patient Tobacco Use Status: Tobacco use Unknown Cigarettes Per Day: 7 Use of substances other than those prescribed or required for medical reasons: Unknown Substance Use Type: Unknown Currently Displaying Signs/Symptoms of Drug Intoxication Withdrawal: No Advance Directives: Yes Advance Directives on File: Yes Advance Directives Date on File: 10/11/20 Recently lost weight without trying: Unsure service: No Current occupational status: unemployed and disabled Meds Allergies Allergy/AdvReac Type Severity Reaction Status Date / Time No Known Allergies Allergy Verified 12/29/21 12:36 [No Known Allergies*] Active Medications: Current Medications Albuterol/Ipratropium (Albuterol/Iprat 2.5/0.5mg 3 Ml Ampul.Neb) 3 ml INHALE RQ4H PRN PRN Reason: Shortness of Breath/Wheezing Last Admin: 03/14/22 23:23 Dose: 3 ml Albuterol/Ipratropium (Albuterol/Iprat 2.5/0.5mg 3 Ml Ampul.Neb) 3 ml INHALE RQ6H WHILE AWAKE [facility] Last Admin: 03/15/22 11:36 Dose: Not Given Amlodipine Besylate (Amlodipine Besylate 10 Mg Tablet) 10 mg PO DAILY [facility]; Protocol Last Admin: 03/15/22 09:25 Dose: 10 mg Apixaban (Apixaban 5 Mg Tablet) 5 mg PO BID [facility] Last Admin: 03/15/22 09:25 Dose: 5 mg Atorvastatin Calcium (Atorvastatin Calcium 40 Mg Tablet) 40 mg PO BEDTIME [facility] Last Admin: 03/14/22 21:57 Dose: 40 mg Cyanocobalamin (Cyanocobalamin (Vitamin B-12) 1,000 Mcg Tablet) 1,000 mcg PO DAILY [facility] Last Admin: 03/15/22 09:24 Dose: 1,000 mcg Docusate Sodium (Docusate Sodium 100 Mg Capsule) 100 mg PO DAILY PRN PRN Reason: Constipation Fluconazole (Fluconazole 100 Mg Tablet) 100 mg PO DAILY [facility] Stop: 03/26/22 08:59 Last Admin: 03/15/22 09:25 Dose: 100 mg Folic Acid (Folic Acid 1 Mg Tablet) 1 mg PO DAILY [facility] Last Admin: 03/15/22 09:25 Dose: 1 mg Gabapentin (Gabapentin 600 Mg Tablet) 600 mg PO BID [facility] Last Admin: 03/15/22 09:25 Dose: 600 mg Levetiracetam (Levetiracetam 500 Mg Tablet) 500 mg PO BID [facility] Last Admin: 03/15/22 09:24 Dose: 500 mg Lisinopril (Lisinopril 5 Mg Tablet) 5 mg PO DAILY [facility]; Protocol Last Admin: 03/15/22 09:25 Dose: 5 mg Methylprednisolone Sodium Succinate (Methylprednisolone Sod Succ 40 Mg/Ml Vial) 40 mg IVPUSH DAILY [facility] Last Admin: 03/15/22 09:26 Dose: Not Given Metoprolol Tartrate (Metoprolol Tartrate 25 Mg Tablet) 25 mg PO BID [facility]; Protocol Last Admin: 03/15/22 09:25 Dose: 25 mg Olanzapine (Olanzapine 10 Mg Tablet) 20 mg PO BEDTIME [facility] Last Admin: 03/14/22 21:57 Dose: 20 mg Omeprazole (Omeprazole 40 Mg Capsule.Dr) 40 mg PO DAILY@0630 [facility] Pharmacy Consult (Consult Rx Perform Med Rec) 1 each MISCELLANE ONCE PRN PRN Reason: Consult order Pharmacy Consult (Consult Rx Etoh Phenob Im/Po) 1 each MISCELLANE ONCE PRN; Protocol PRN Reason: Consult order Sertraline HCl (Sertraline Hcl 25 Mg Tablet) 25 mg PO DAILY [facility] Last Admin: 03/15/22 09:25 Dose: 25 mg Sodium Chloride (0.9 % Sodium Chloride Flush 3 Ml Syringe) 3 ml IVFLUSH QSHIFT [facility] Last Admin: 03/15/22 09:26 Dose: Not Given Tamsulosin HCl (Tamsulosin Hcl 0.4 Mg Capsule) 0.4 mg PO DAILY [facility] Last Admin: 03/15/22 09:25 Dose: 0.4 mg Thiamine HCl (Thiamine Hcl 100 Mg Tablet) 100 mg PO DAILY [facility] Last Admin: 03/15/22 09:25 Dose: 100 mg Tiotropium [place] (Tiotropium [place] 18 Mcg Cap.W.Dev) 1 puff INHALE RDAILY [facility] Last Admin: 03/14/22 08:16 Dose: Not Given Vitamin D (Cholecalciferol (Vitamin D3) 25 Mcg Tablet) 50 mcg PO DAILY [facility] Last Admin: 03/15/22 09:24 Dose: 50 mcg Home Medications Medication Instructions Recorded Confirmed Last Taken Type atorvastatin 40 mg tablet 40 mg PO BEDTIME 04/01/20 03/03/22 Unknown History cholecalciferol (vitamin D3) 50 50 mcg PO DAILY 04/01/20 03/03/22 Unknown History mcg (2,000 unit) capsule gabapentin 600 mg tablet 600 mg PO BID 04/01/20 03/03/22 Unknown History metoprolol succinate 25 mg 25 mg PO DAILY 04/01/20 03/03/22 Unknown History tablet,extended release 24 hr phenytoin 50 mg chewable tablet 50 mg PO BID 04/01/20 03/03/22 Unknown History tamsulosin 0.4 mg capsule 0.4 mg PO DAILY 04/01/20 03/03/22 Unknown History umeclidinium 62.5 mcg/actuation 1 puff inhalation DAILY 09/26/20 03/03/22 Unknown History blister powder for inhalation (Incruse Ellipta) sertraline 25 mg tablet 1 tab PO DAILY 06/23/21 03/03/22 Unknown History olanzapine 20 mg tablet 1 tab PO BEDTIME 09/02/21 03/03/22 Unknown History apixaban 5 mg tablet (Eliquis) 5 mg PO BID 11/04/21 03/03/22 Unknown History cyanocobalamin (vitamin B-12) 1,000 mcg PO QAM 11/04/21 03/03/22 Unknown History 1,000 mcg tablet lisinopril 5 mg tablet 5 mg PO DAILY 11/04/21 03/03/22 Unknown History Physical Exam Vital Signs: Vital Signs: Last Vital Signs Temp 97.2 F 03/15/22 11:29 Pulse 83 03/15/22 11:29 Resp 18 03/15/22 11:29 BP 133/77 03/15/22 11:29 Pulse Ox 97 03/15/22 11:29 O2 Del Method 03/15/22 11:29 O2 Flow Rate 97 03/14/22 15:41 FiO2 94 03/14/22 20:00 BMI result Body Mass Index 25.8 Const: General: patient obtunded Nutritional Appearance: average body habitus Orientation/consciousness: patient obtunded Limitations: altered mental status HEENT: Other: coated and furred tongue, no obvious candidal deposits seen Head: Yes normal to inspection Ears: hearing grossly normal bilaterally General nose exam: Normal external nose present Face and sinus: Yes normal facial exam Eyes: General: appearance normal, both eyes and all related structures Alignment and Position: alignment normal Periorbital: periorbital findings normal Pupils: Equal, round and reactive pupils present EOM: EOMs intact bilaterally Neck: Neck: Yes normal visual inspection and Yes full ROM Carotids: no bruits Chest: Chest palpation & inspection: normal inspection of the chest Resp: Effort & Inspection: normal respiratory effort, able to speak in complete sentences, not tachypneic and no use of accessory muscles Auscultation: clear to auscultation bilaterally, no crackles, no rales, no rhonchi and no wheezes Cardio: Other: No S4; positive S1-S2 no S3 murmurs rubs or gallops Rate: regular rate Rhythm: regular rhythm Heart sounds: S1 normal heart sound present and S2 normal heart sound present Bruits: no carotid bruits Peripheral pulses: Peripheral pulses 2+ throughout GI: Inspection: Yes normal to inspection and No distended Palpation (GI): Soft to palpation and nontender Skin: Wounds: wounds noted Neuro: General: patient obtunded Cranial nerves: Yes Equal, round and reactive pupils present Cognition (Neuro): abnormal cognition Plantar Reflex Responses: downgoing: right and left Extrem: Other: left foot ulcer Psych: Appearance: disheveled Mental Status: mental status grossly abnormal Results Labs CBC & Chem 7: 03/15/22 05:49 03/15/22 05:49 Labs: Short CBC 03/15/22 Range/Units 05:49 WBC 9.5 (4.8-10.8) X10*3/uL Hgb 12.9 L (14.0-18.0) g/dl Hct 39.7 L (42.0-52.0) % Plt Count 387 (160-400) X10*3/uL BMP 03/15/22 05:49 Sodium 142 Potassium 4.0 Chloride 105 Carbon Dioxide 25 BUN 14 Creatinine 0.69 Calcium 9.3 Liver Function 03/15/22 Range/Units 05:49 Total Bilirubin 0.4 (0.0-1.0) mg/dL Direct Bilirubin 0.3 (0.0-0.5) mg/dL AST 29 (5-37) U/L ALT 29 (0-40) U/L Alkaline Phosphatase 94 (39-117) U/L Albumin 3.4 L (3.5-5.0) g/dL Microbiology Microbiology Results: Microbiology 03/03/22 10:37 Blood - Venous Blood Culture - Final No growth after 5 days. 03/03/22 10:37 Blood - Venous Blood Culture - Final No growth after 5 days. 03/03/22 Unknown Urine Catheterized - Straight Catheter Urine Culture - Final Aerococcus viridans Assessment and Plan (1) Thrush, oral: Status: Acute (2) Encephalopathy: Status: Acute Plan 1/ Coated tongue related to dehydration and intercurrent sickness, on background of waxing and waning mental state which is being investigated. He is already on fluconazole and PPI. PLAN: 1/ can complete fluconazole and cont with PPI to reduce risk of stress gastritis 2/ consider checking esr and CRP, r/o PMR or other vasculitis as cause of his symptoms 3/ check nutritional levels, b vitamins ehsan thiamine, vit A,D,E,K and zinc, Mag, TSH, 4/ if concern for PO intake may need short term NGT feeding Procedures Date of Service Date of Service: 03/15/22
[2022-03-15] MEDS: Atorvastatin Calcium 40 MG TABLET PO (21:05)
[2022-03-15] MEDS: OLANZapine 10 MG TABLET 20 MG PO (21:06)
[2022-03-16] VITALS (10 sets, daily range): BP systolic 107–165; BP diastolic 61–87; PULSE 69–94; RESP 14–20; TEMP 36.2–37.2; O2SAT 92–96
[2022-03-16] MEDS: Omeprazole 40 MG CAPSULE.DR PO (05:51)
[2022-03-16 07:00] LABS: C Reactive Protein 6.53 mg/dL (< or = 0.50)
[2022-03-16 07:23] LABS: Erythrocyte Sedimentation Rate 67 MM/HR (0-15)
[2022-03-16] MEDS: Albuterol/Iprat 2.5/0.5MG 3 ML AMPUL.NEB INHALE ×3 (07:49→19:04)
[2022-03-16 08:09] LABS: Folate 19.5 ng/mL (> or = 4.0); Vitamin B12 > 2000 pg/mL (200-900)
--- NOTE | 2022-03-16 08:49 | HO.WOUNDCONS ---
History of Present Illness Data of Consult Service Date: 03/16/22 Requesting physician: Danyell Liang Primary Care Provider: Unknown Physician HPI Reason for consult: left dorsal foot abrasion 66 year old male found to be seizing and incontinent of urine brought in by EMS with alcohol suspected as the primary problem. Admitted and found to have ulcer on dorsal left foot. Asked to evaluate wound. Vascular surgery has already made suggestions regarding etiology and work up as outpatient. Xerform dressing was removed. Review of Systems Review of Systems: he is sedated, sleeping, rousable but nonverbal this morning Yes Unobtainable due to mental condition [facility] Medical History Alcohol abuse Cardiomyopathy Cellulitis Dementia DVT (deep venous thrombosis) DVT of deep femoral vein GERD (gastroesophageal reflux disease) Hepatitis C antibody positive in blood Hypertension Seizure Family History Father No problems noted. Mother No problems noted. Brother Cancer Sister No problems noted. Surgical History No pertinent past surgical history Social History Household Members: Unknown / Unable to assess Housing: Unknown / Unable to assess Unable to assess alcohol history related to: Unknown Alcohol intake: current Alcohol intake frequency: a few times a week Alcohol type: beer Patient Tobacco Use Status: Tobacco use Unknown Cigarettes Per Day: 7 Use of substances other than those prescribed or required for medical reasons: Unknown Substance Use Type: Unknown Currently Displaying Signs/Symptoms of Drug Intoxication Withdrawal: No Advance Directives: Yes Advance Directives on File: Yes Advance Directives Date on File: 10/11/20 Recently lost weight without trying: Unsure service: No Current occupational status: unemployed and disabled Meds Allergies Allergy/AdvReac Type Severity Reaction Status Date / Time No Known Allergies Allergy Verified 12/29/21 12:36 [No Known Allergies*] Active Medications: Current Medications Albuterol/Ipratropium (Albuterol/Iprat 2.5/0.5mg 3 Ml Ampul.Neb) 3 ml INHALE RQ4H PRN PRN Reason: Shortness of Breath/Wheezing Last Admin: 03/14/22 23:23 Dose: 3 ml Albuterol/Ipratropium (Albuterol/Iprat 2.5/0.5mg 3 Ml Ampul.Neb) 3 ml INHALE RQ6H WHILE AWAKE [facility] Last Admin: 03/16/22 07:49 Dose: 3 ml Amlodipine Besylate (Amlodipine Besylate 10 Mg Tablet) 10 mg PO DAILY [facility]; Protocol Last Admin: 03/15/22 09:25 Dose: 10 mg Apixaban (Apixaban 5 Mg Tablet) 5 mg PO BID [facility] Last Admin: 03/15/22 21:05 Dose: 5 mg Atorvastatin Calcium (Atorvastatin Calcium 40 Mg Tablet) 40 mg PO BEDTIME [facility] Last Admin: 03/15/22 21:05 Dose: 40 mg Cyanocobalamin (Cyanocobalamin (Vitamin B-12) 1,000 Mcg Tablet) 1,000 mcg PO DAILY [facility] Last Admin: 03/15/22 09:24 Dose: 1,000 mcg Docusate Sodium (Docusate Sodium 100 Mg Capsule) 100 mg PO DAILY PRN PRN Reason: Constipation Fluconazole (Fluconazole 100 Mg Tablet) 100 mg PO DAILY [facility] Stop: 03/26/22 08:59 Last Admin: 03/15/22 09:25 Dose: 100 mg Folic Acid (Folic Acid 1 Mg Tablet) 1 mg PO DAILY [facility] Last Admin: 03/15/22 09:25 Dose: 1 mg Gabapentin (Gabapentin 600 Mg Tablet) 600 mg PO BID [facility] Last Admin: 03/15/22 21:06 Dose: 600 mg Levetiracetam (Levetiracetam 500 Mg Tablet) 500 mg PO BID [facility] Last Admin: 03/15/22 21:05 Dose: 500 mg Lisinopril (Lisinopril 5 Mg Tablet) 5 mg PO DAILY [facility]; Protocol Last Admin: 03/15/22 09:25 Dose: 5 mg Methylprednisolone Sodium Succinate (Methylprednisolone Sod Succ 40 Mg/Ml Vial) 40 mg IVPUSH DAILY [facility] Last Admin: 03/15/22 09:26 Dose: Not Given Metoprolol Tartrate (Metoprolol Tartrate 25 Mg Tablet) 25 mg PO BID [facility]; Protocol Last Admin: 03/15/22 21:05 Dose: 25 mg Olanzapine (Olanzapine 10 Mg Tablet) 20 mg PO BEDTIME [facility] Last Admin: 03/15/22 21:06 Dose: 20 mg Omeprazole (Omeprazole 40 Mg Capsule.Dr) 40 mg PO DAILY@0630 [facility] Last Admin: 03/16/22 05:51 Dose: 40 mg Pharmacy Consult (Consult Rx Perform Med Rec) 1 each MISCELLANE ONCE PRN PRN Reason: Consult order Pharmacy Consult (Consult Rx Etoh Phenob Im/Po) 1 each MISCELLANE ONCE PRN; Protocol PRN Reason: Consult order Sertraline HCl (Sertraline Hcl 25 Mg Tablet) 25 mg PO DAILY [facility] Last Admin: 03/15/22 09:25 Dose: 25 mg Sodium Chloride (0.9 % Sodium Chloride Flush 3 Ml Syringe) 3 ml IVFLUSH QSHIFT [facility] Last Admin: 03/15/22 23:48 Dose: Not Given Tamsulosin HCl (Tamsulosin Hcl 0.4 Mg Capsule) 0.4 mg PO DAILY [facility] Last Admin: 03/15/22 09:25 Dose: 0.4 mg Thiamine HCl (Thiamine Hcl 100 Mg Tablet) 100 mg PO DAILY [facility] Last Admin: 03/15/22 09:25 Dose: 100 mg Tiotropium Iota (Tiotropium Iota 18 Mcg Cap.W.Dev) 1 puff INHALE RDAILY [facility] Last Admin: 03/14/22 08:16 Dose: Not Given Vitamin D (Cholecalciferol (Vitamin D3) 25 Mcg Tablet) 50 mcg PO DAILY [facility] Last Admin: 03/15/22 09:24 Dose: 50 mcg Home Medications Medication Instructions Recorded Confirmed Last Taken Type atorvastatin 40 mg tablet 40 mg PO BEDTIME 04/01/20 03/03/22 Unknown History cholecalciferol (vitamin D3) 50 50 mcg PO DAILY 04/01/20 03/03/22 Unknown History mcg (2,000 unit) capsule gabapentin 600 mg tablet 600 mg PO BID 04/01/20 03/03/22 Unknown History metoprolol succinate 25 mg 25 mg PO DAILY 04/01/20 03/03/22 Unknown History tablet,extended release 24 hr phenytoin 50 mg chewable tablet 50 mg PO BID 04/01/20 03/03/22 Unknown History tamsulosin 0.4 mg capsule 0.4 mg PO DAILY 04/01/20 03/03/22 Unknown History umeclidinium 62.5 mcg/actuation 1 puff inhalation DAILY 09/26/20 03/03/22 Unknown History blister powder for inhalation (Incruse Ellipta) sertraline 25 mg tablet 1 tab PO DAILY 06/23/21 03/03/22 Unknown History olanzapine 20 mg tablet 1 tab PO BEDTIME 09/02/21 03/03/22 Unknown History apixaban 5 mg tablet (Eliquis) 5 mg PO BID 11/04/21 03/03/22 Unknown History cyanocobalamin (vitamin B-12) 1,000 mcg PO QAM 11/04/21 03/03/22 Unknown History 1,000 mcg tablet lisinopril 5 mg tablet 5 mg PO DAILY 11/04/21 03/03/22 Unknown History Physical Exam Vital Signs and Narrative: Vital Signs: Last Vital Signs Temp 98.0 F 03/16/22 08:00 Pulse 87 03/16/22 08:00 Resp 17 03/16/22 08:00 BP 149/70 H 03/16/22 08:00 Pulse Ox 92 03/16/22 08:00 O2 Del Method 03/16/22 08:00 O2 Flow Rate 96 03/16/22 00:33 FiO2 94 03/14/22 20:00 BMI result Body Mass Index 25.8 No edema, erythema, warmth or streaking identified about the left foot. PUPP boots are removed but sequential compression devices are left in place. Brisk cap refill observed. No necrosis, blanching or pain to palpation to suggest acute ischemia. Dried eschar atop wound with about 3 cm diameter. Healthy wound edges without maceration. Odorous drainage upon removal of xerform with moderate drainage. ED pictures show lateral foot ecchymosis. Results Labs CBC and Chem 7: 03/15/22 05:49 03/15/22 05:49 Labs: Laboratory Results - last 24 hr 03/16/22 03/16/22 03/16/22 06:35 06:35 06:35 ESR 67 H C-Reactive Protein 6.53 H Vitamin B12 > 2000 H Folate 19.5 Assessment and Plan (1) Ulcer of foot: Status: Acute Plan 66 year old male with AMS, alcohol withdrawal prompting hospital admission - left dorsal foot wound. Odorous drainage better handled by silver alginate. Vascular already on board. Outpatient wound care clinic referral appropriate if desired by the patient.
[2022-03-16] MEDS: Fluconazole 100 MG TABLET PO (09:02)
[2022-03-16] MEDS: Apixaban 5 MG TABLET PO ×2 (09:02→20:16)
[2022-03-16] MEDS: Cholecalciferol (Vitamin D3) 25 MCG TABLET 50 MCG PO (09:02)
[2022-03-16] MEDS: levETIRAcetam 500 MG TABLET PO ×2 (09:02→20:15)
[2022-03-16] MEDS: Sertraline HCL 25 MG TABLET PO (09:02)
[2022-03-16] MEDS: amLODIPine Besylate 10 MG TABLET PO (09:02)
[2022-03-16] MEDS: lisinopriL 5 MG TABLET PO (09:02)
[2022-03-16] MEDS: Cyanocobalamin (Vitamin B-12) 1,000 MCG TABLET 1000 MCG PO (09:02)
[2022-03-16] MEDS: Gabapentin 600 MG TABLET PO ×2 (09:02→20:15)
[2022-03-16] MEDS: Metoprolol Tartrate 25 MG TABLET PO ×2 (09:02→20:16)
[2022-03-16] MEDS: Folic Acid 1 MG TABLET PO (09:02)
[2022-03-16] MEDS: Tamsulosin HCL 0.4 MG CAPSULE PO (09:02)
[2022-03-16] MEDS: Thiamine HCL 100 MG TABLET PO (09:03)
--- NOTE | 2022-03-16 13:21 | HO.VASCPN ---
Subjective Subjective Date of Service: 03/16/22 Patient reports: no new complaints Interval history: Complex 66-year-old gentleman presents for follow-up regarding nonhealing left foot ulcer. He presented to the hospital after an episode of alcohol intoxication. According to the family member at bedside this occurs with him on a recurrent basis every 6 months or so. At the time of admission he was discovered to have an ulcer on the dorsum of his foot. He has improved significantly throughout his hospital stay. At the current time he does respond occasionally to questioning. He does not provide appropriate responses though. Still somewhat confused. The family member does explain that he was completely ambulatory and doing well prior to this event. He now presents for vascular follow-up. Physical Exam Vital Signs: Vital Signs: Last Vital Signs Temp 99.0 F 03/16/22 12:54 Pulse 82 03/16/22 12:54 Resp 18 03/16/22 12:54 BP 141/71 H 03/16/22 12:54 Pulse Ox 93 03/16/22 12:54 O2 Del Method 03/16/22 12:54 O2 Flow Rate 96 03/16/22 00:33 FiO2 94 03/14/22 20:00 BMI result Body Mass Index 25.8 Const: General: cooperative, healthy appearing and no acute distress Orientation/consciousness: oriented to person, oriented to place and oriented to time HEENT: Head: Yes normal to inspection Neck: Carotids: no bruits Chest: Chest palpation & inspection: normal inspection of the chest Resp: Effort & Inspection: normal respiratory effort and able to speak in complete sentences Auscultation: clear to auscultation bilaterally Cardio: Rate: regular rate Heart sounds: S1 normal heart sound present and S2 normal heart sound present GI: Inspection: Yes normal to inspection Skin: General skin exam: no rashes or lesions noted Wounds: wounds noted (Left dorsum of foot dry eschar.) Neuro: General: oriented to person, oriented to place, oriented to time and CN's II-XI intact bilaterally Extrem: General: Yes normal to inspection, Yes full ROM and Yes no clubbing, cyanosis or edema Psych: Appearance: grossly normal and well kempt Speech and movement: Normal speech and movement present Affect: normal affect Progress Note: A&P Assessment and plan (1) PAD (peripheral artery disease): Status: Acute Assessment and Plan: In short patient has a nonhealing left foot ulcer. At the current time it does not appear infected it is a dry eschar which appears to be protective actually. Would recommend local wound care with Xeroform dressings and Kerlix to be changed daily. Once he resolves from this acute episode we can work him up as an outpatient and may need endovascular intervention to improve the arterial flow. Will see how he progresses. We will peripherally follow with you. If discharge he can see us as an outpatient. Thank you for allowing us to assist in his care. If there are any questions or concerns please do not hesitate to contact us. Time Spent With Patient Time: Total time spent is greater than 50% in coordination of care (as documented) at patient's floor/unit and/or counseling patient: Procedures Date of Service Date of Service: 03/16/22 Quality Stroke Does the patient have a stroke diagnosis?: No VTE Prior VTE?: No VTE Risk Level:: Medical - moderate - high VTE Device Contraindication: Treatment Not Indicated VTE Drug Contraindication: N/A - Med Ordered
--- NOTE | 2022-03-16 13:51 | MHC.CM.PN ---
EMR REVIEWED. PER MD ROUNDS, PATIENT IS NOT MEDICALLY CLEARED FOR DISCHARGE (REMAINS ENCEPHOLOPATHIC AND NEEDS NEURO INPUT) [facility] CONTINUES TO FOLLOW. CM WILL FOLLOW FOR PLAN.
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
--- NOTE | 2022-03-16 15:46 | MHC.SLORD ---
Speech Language Pathology Order Status: Attempted to see pt for dysphagia treatment this afternoon. Pt was sound asleep. Not appropriate for PO trials. Pt is currently on pureed diet (NDD1) with thin liquids by sowmya only. Pt must be awake and alert for presentation of PO. Hold tray if pt is lethargic, w/ decreased responsiveness. 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
[2022-03-16] MEDS: Atorvastatin Calcium 40 MG TABLET PO (20:15)
[2022-03-16] MEDS: OLANZapine 10 MG TABLET 20 MG PO (20:16)
[2022-03-17] VITALS (9 sets, daily range): BP systolic 137–179; BP diastolic 65–85; PULSE 65–92; RESP 16–19; TEMP 36.1–36.6; O2SAT 92–100
[2022-03-17] MEDS: Omeprazole 40 MG CAPSULE.DR PO (05:59)
[2022-03-17] MEDS: Albuterol/Iprat 2.5/0.5MG 3 ML AMPUL.NEB INHALE ×3 (07:39→19:17)
[2022-03-17] MEDS: lisinopriL 5 MG TABLET PO (08:52)
[2022-03-17] MEDS: Metoprolol Tartrate 25 MG TABLET PO ×2 (08:52→21:50)
[2022-03-17] MEDS: amLODIPine Besylate 10 MG TABLET PO (08:52)
[2022-03-17] MEDS: Thiamine HCL 100 MG TABLET PO (08:52)
[2022-03-17] MEDS: Cholecalciferol (Vitamin D3) 25 MCG TABLET 50 MCG PO (08:52)
[2022-03-17] MEDS: Gabapentin 600 MG TABLET PO ×2 (08:52→21:50)
[2022-03-17] MEDS: Cyanocobalamin (Vitamin B-12) 1,000 MCG TABLET 1000 MCG PO (08:52)
[2022-03-17] MEDS: Folic Acid 1 MG TABLET PO (08:52)
[2022-03-17] MEDS: Apixaban 5 MG TABLET PO ×2 (08:52→21:50)
[2022-03-17] MEDS: Fluconazole 100 MG TABLET PO (08:53)
[2022-03-17] MEDS: Sertraline HCL 25 MG TABLET PO (08:53)
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
--- NOTE | 2022-03-17 13:47 | PC.NURSE ---
Addendum entered by Pina Moody RN 03/17/22 19:22: Pt continues to be lethargic, wakes to his name. Safety precautions remain in place. Report given to overnight RN. Original Note: report received from overnight RN. network security administrator per JUL. Call mcconnell within reach, bed alarm on, camera in place. PIE DOUGH ROLLER cleaned pt and noticed MD NOAM notified.
--- NOTE | 2022-03-17 14:55 | MHC.SLORD ---
Speech Language Pathology Order Status: Attempted to see pt. this p.m, patient sleeping soundly, not appropriate for PO trials. PARTS COUNTER SALES PERSON will continue to follow.
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
[2022-03-17] MEDS: OLANZapine 10 MG TABLET PO (21:50)
[2022-03-17] MEDS: Atorvastatin Calcium 40 MG TABLET PO (21:50)
[2022-03-18] VITALS (8 sets, daily range): BP systolic 132–181; BP diastolic 72–89; PULSE 66–98; RESP 14–18; TEMP 36.2–37.2; O2SAT 93–95
[2022-03-18 06:20] LABS: Anion Gap 12 (12-20); Blood Urea Nitrogen 17 mg/dL (9-16); Calcium 9.4 mg/dL (8.4-10.2); Carbon Dioxide 27 mmol/L (22-29); Chloride 104 mmol/L (96-108); Creatinine Clr Calc Pharmacy 100.9; Estimated Glomerular Filt Rate > 60; Glucose Random 114 mg/dL (60-115); Potassium 4.4 mmol/L (3.3-5.1); Sodium 139 mmol/L (135-145)
[2022-03-18 06:21] LABS: Hematocrit 42.5 % (42.0-52.0); Hemoglobin 13.4 g/dl (14.0-18.0); Mean Corpuscular HGB Conc 31.5 g/dl (31.0-36.0); Mean Corpuscular Hemoglobin 28.9 pg (27.0-33.0); Mean Corpuscular Volume 91.6 fL (80.0-98.0); Mean Platelet Volume 8.4 fL (9.4-12.4); Platelet Count 414 X10*3/uL (160-400); Red Blood Count 4.64 X10*6/uL (4.60-5.80); Red Cell Distribution Width 12.5 % (11.0-16.0); White Blood Count 12.7 X10*3/uL (4.8-10.8)
[2022-03-18 06:30] LABS: Alanine Aminotransferase 38 U/L (0-40); Albumin Level 3.6 g/dL (3.5-5.0); Alkaline Phosphatase 110 U/L (39-117); Aspartate Amino Transferase 29 U/L (5-37); Bilirubin Direct 0.4 mg/dL (0.0-0.5); Bilirubin Total 0.5 mg/dL (0.0-1.0); Magnesium 1.9 mg/dL (1.6-2.6); Total Protein 7.8 g/dL (6.5-8.0)
[2022-03-18] MEDS: Omeprazole 40 MG CAPSULE.DR PO (06:35)
[2022-03-18 06:39] LABS: Ammonia 29 umol/L (13-55)
[2022-03-18] MEDS: Albuterol/Iprat 2.5/0.5MG 3 ML AMPUL.NEB INHALE ×3 (07:28→20:12)
[2022-03-18] MEDS: levETIRAcetam 500 MG TABLET PO ×2 (08:38→20:43)
[2022-03-18] MEDS: amLODIPine Besylate 10 MG TABLET PO (08:40)
[2022-03-18] MEDS: Tamsulosin HCL 0.4 MG CAPSULE PO (08:41)
[2022-03-18] MEDS: predniSONE 20 MG TABLET 40 MG PO (08:41)
[2022-03-18] MEDS: Gabapentin 600 MG TABLET PO ×2 (08:42→20:43)
[2022-03-18] MEDS: Fluconazole 100 MG TABLET PO (08:42)
[2022-03-18] MEDS: Metoprolol Tartrate 25 MG TABLET PO ×2 (08:42→20:43)
[2022-03-18] MEDS: Apixaban 5 MG TABLET PO ×2 (08:42→20:43)
[2022-03-18] MEDS: lisinopriL 5 MG TABLET PO (08:42)
[2022-03-18] MEDS: Thiamine HCL 100 MG TABLET PO (08:44)
[2022-03-18] MEDS: Cyanocobalamin (Vitamin B-12) 1,000 MCG TABLET 1000 MCG PO (08:45)
[2022-03-18] MEDS: Folic Acid 1 MG TABLET PO (08:45)
[2022-03-18] MEDS: Cholecalciferol (Vitamin D3) 25 MCG TABLET 50 MCG PO (08:45)
--- NOTE | 2022-03-18 10:04 | MHC.SLORD ---
Addendum entered and electronically signed by ALEXYS Woody 03/18/22 15:40: S.W. Original Note: Speech Language Pathology Order Status: SHIP FASTENER attempted to see pt for dysphagia tx. Pt was sound asleep with fully eaten breakfast tray at bedside. Not appropriate for PO trials. SHIP FASTENER checked in w/ RN who reported pt ate pureed peaches, pureed eggs and sausage, and pudding w/ meds during 1:1 feed at breakfast. RN reports meds that cannot be crushed taken whole cut /2 with puree. RN reports 1 pill got spit out/fell out of mouth initially; but was consumed in the end. No cough or difficulty swallowing reported. Pt required consistent cueing to swallow. Thickener packets at bedside, but RN did not use. Consumed full container of OJ. Hospitalist notes from 03/17 mention thickened liquids. SHIP FASTENER recommended thin liquids during 03/05 eval and subsequent PO trials since then on 03/10 and 03/11. Pt is currently on pureed diet (NDD1) with thin liquids by teaspoon only. Pt must be awake and alert for presentation of PO. Hold tray if pt is lethargic, w/ decreased responsiveness. SHIP FASTENER will continue to follow.
[2022-03-18] MEDS: levETIRAcetam 1,000 MG TABLET 1000 MG PO (10:26)
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
--- NOTE | 2022-03-18 14:37 | MHC.CM.PN ---
per rounds pt to have an lp under sedation
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
[2022-03-18] MEDS: Atorvastatin Calcium 40 MG TABLET PO (20:43)
[2022-03-18] MEDS: OLANZapine 10 MG TABLET PO (20:43)
[2022-03-19] VITALS (8 sets, daily range): BP systolic 124–179; BP diastolic 62–89; PULSE 69–89; RESP 16–20; TEMP 36.1–36.8; O2SAT 94–98
[2022-03-19] MEDS: Omeprazole 40 MG CAPSULE.DR PO (06:04)
[2022-03-19 06:55] LABS: Hematocrit 40.8 % (42.0-52.0); Hemoglobin 13.2 g/dl (14.0-18.0); Mean Corpuscular HGB Conc 32.4 g/dl (31.0-36.0); Mean Corpuscular Hemoglobin 29.5 pg (27.0-33.0); Mean Corpuscular Volume 91.3 fL (80.0-98.0); Mean Platelet Volume 8.4 fL (9.4-12.4); Platelet Count 410 X10*3/uL (160-400); Red Blood Count 4.47 X10*6/uL (4.60-5.80); Red Cell Distribution Width 12.5 % (11.0-16.0); White Blood Count 12.8 X10*3/uL (4.8-10.8)
[2022-03-19] MEDS: Albuterol/Iprat 2.5/0.5MG 3 ML AMPUL.NEB INHALE ×2 (08:08→13:32)
[2022-03-19] MEDS: Metoprolol Tartrate 25 MG TABLET PO ×2 (10:53→20:59)
[2022-03-19] MEDS: predniSONE 20 MG TABLET 40 MG PO (10:53)
[2022-03-19] MEDS: Folic Acid 1 MG TABLET PO (10:53)
[2022-03-19] MEDS: Cyanocobalamin (Vitamin B-12) 1,000 MCG TABLET 1000 MCG PO (10:53)
[2022-03-19] MEDS: Gabapentin 600 MG TABLET PO ×2 (10:53→20:59)
[2022-03-19] MEDS: Tamsulosin HCL 0.4 MG CAPSULE PO (10:53)
[2022-03-19] MEDS: Fluconazole 100 MG TABLET PO (10:53)
[2022-03-19] MEDS: amLODIPine Besylate 10 MG TABLET PO (10:54)
[2022-03-19] MEDS: Thiamine HCL 100 MG TABLET PO (10:54)
[2022-03-19] MEDS: Cholecalciferol (Vitamin D3) 25 MCG TABLET 50 MCG PO (10:54)
[2022-03-19] MEDS: Apixaban 5 MG TABLET PO (10:54)
[2022-03-19] MEDS: lisinopriL 5 MG TABLET PO (10:54)
[2022-03-19] MEDS: levETIRAcetam 500 MG TABLET PO ×2 (11:58→20:59)
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
--- NOTE | 2022-03-19 16:51 | MHC.SLORD ---
Speech Language Pathology Order Status: Attempted to see patient at lunch to assess toleration of diet, PT asleep, not appropriate for PO at time of visit. Will continue to follow.
[2022-03-19] MEDS: OLANZapine 10 MG TABLET PO (20:59)
[2022-03-19] MEDS: Atorvastatin Calcium 40 MG TABLET PO (20:59)
[2022-03-20] MEDS: Enoxaparin Sodium 80 MG/0.8 ML SYRINGE SUBCUT ×3 (00:04→22:57)
[2022-03-20 03:47] VITALS: BP 142/80; PULSE 74; RESP 20; TEMP 36.2; O2SAT 97
[2022-03-20 06:17] LABS: Hematocrit 41.2 % (42.0-52.0); Hemoglobin 13.8 g/dl (14.0-18.0); Mean Corpuscular HGB Conc 33.5 g/dl (31.0-36.0); Mean Corpuscular Hemoglobin 30.1 pg (27.0-33.0); Mean Corpuscular Volume 89.8 fL (80.0-98.0); Mean Platelet Volume 9.1 fL (9.4-12.4); Platelet Count 395 X10*3/uL (160-400); Red Blood Count 4.59 X10*6/uL (4.60-5.80); Red Cell Distribution Width 12.5 % (11.0-16.0); White Blood Count 11.8 X10*3/uL (4.8-10.8)
[2022-03-20 06:34] LABS: INTERNATIONAL NORM RATIO 1.4 (0.9-1.1); Prothrombin Time 15.8 SEC (10.0-13.1)
[2022-03-20] MEDS: Albuterol/Iprat 2.5/0.5MG 3 ML AMPUL.NEB INHALE (07:58)
[2022-03-20 07:59] VITALS: PULSE 90; RESP 18; O2SAT 94
[2022-03-20 08:00] VITALS: BP 176/79; PULSE 86; RESP 20; TEMP 36.6; O2SAT 95
[2022-03-20 09:21] LABS: Anion Gap 19 (12-20); Blood Urea Nitrogen 19 mg/dL (9-16); Calcium 9.9 mg/dL (8.4-10.2); Carbon Dioxide 21 mmol/L (22-29); Chloride 104 mmol/L (96-108); Creatinine Clr Calc Pharmacy 102.4; Estimated Glomerular Filt Rate > 60; Glucose Random 87 mg/dL (60-115); Potassium 4.7 mmol/L (3.3-5.1); Sodium 139 mmol/L (135-145)
[2022-03-20] MEDS: predniSONE 10 MG TABLET 30 MG PO (09:42)
[2022-03-20] MEDS: levETIRAcetam 500 MG TABLET PO ×2 (09:42→20:46)
[2022-03-20] MEDS: lisinopriL 5 MG TABLET PO (09:42)
[2022-03-20] MEDS: Cholecalciferol (Vitamin D3) 25 MCG TABLET 50 MCG PO (09:42)
[2022-03-20] MEDS: Thiamine HCL 100 MG TABLET PO (09:42)
[2022-03-20] MEDS: OLANZapine 5 MG TABLET PO (09:43)
[2022-03-20] MEDS: Omeprazole 40 MG CAPSULE.DR PO (09:43)
[2022-03-20] MEDS: Folic Acid 1 MG TABLET PO (09:43)
[2022-03-20] MEDS: Gabapentin 600 MG TABLET PO ×2 (09:43→20:46)
[2022-03-20] MEDS: amLODIPine Besylate 10 MG TABLET PO (09:43)
[2022-03-20] MEDS: Fluconazole 100 MG TABLET PO (09:43)
[2022-03-20] MEDS: Tamsulosin HCL 0.4 MG CAPSULE PO (09:43)
[2022-03-20] MEDS: Cyanocobalamin (Vitamin B-12) 1,000 MCG TABLET 1000 MCG PO (09:44)
[2022-03-20] MEDS: Metoprolol Tartrate 25 MG TABLET PO ×2 (09:44→20:46)
[2022-03-20 09:47] LABS: TSH reflex Free T4 2.29 uIU/mL (0.32-4.0)
[2022-03-20 12:00] VITALS: BP 127/68; PULSE 79; RESP 20; TEMP 36.2; O2SAT 93
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
[2022-03-20 16:00] VITALS: BP 131/68; PULSE 83; RESP 18; TEMP 36.9; O2SAT 97
--- NOTE | 2022-03-20 17:20 | MHC.SL.SWA ---
Speech Pathologist Impression: Risk of Aspiration Due to: Neurological Condition Reduced Cognition Dysphasia Diet Status: Moderate to Severe Oral Phase Dysphagia due to edentulous state and disorganized lingual pattern, including prominent tongue thrust on swallow. Dementia/disorientation. Liquid Consistency and Strategies for Safe Swallow: Liquid Intake Recommendation: Thin Liquid Intake Strategies: Small Sips No Straws Liquids by Teaspoon Only Solid Food Consistency: Dietary Recommendations: Pureed (NDD1) Additional Modifications to Solid Foods: Recommend continue with PUREED (NDD1) solids (half teaspoon bites) and THIN liquids by teaspoon only, pills CRUSHED in PUREE. Pt requires TOTAL 1:1 ASSISTANCE. Administer half teaspoon bites and provide cues as needed to swallow (verbal reminders to swallow, present dry teaspoon to elicit dry swallow as needed). Check oral cavity and ensure it is cleared before presenting more bites. Ensure aspiration precautions. Minimize distractions during meals. Do not present food, HOLD TRAY if pt is lethargic and unable to remain awake for entire meal. SLAG MIXER will continue to follow. Oral Medication Intake: Crushed with Puree Please contact the pharmacy regarding appropriate crushable or liquid drug formulations that are available whenever modified delivery is recommended. Compensatory Strategies and Precautions to be Taken for Safe Swallow: Sitting Upright (90 deg) Liquids from Spoon Small Bites and Sips Alternate Liquids/Solids Rate of Ingestion Change Oral Check Avoid Specific Foods Supervision While Eating and Drinking for Safe Swallow: Total Assistance (1:1) Foods to Avoid: Sicky or congealed purees. Swallowing Recommended Treatments: Compens. Strategy Educat. Recommendation for Speech: Inpatient Speech Therapy Comment: Pt presents with a moderate oral phase dysphagia due to edentulous state and disorganized lingual pattern, including prominent tongue thrust on swallow. Pt is additionally highly disoriented and lethargic. Recommend START diet of Puree (NDD1) with THIN liquids, pills crushed in puree. Patient currently will required 1-1 feed, do not attempt or discontinue if patient is lethargic, unable to sustain attention to eating. SLAG MIXER will continue to follow, monitor toleration of diet, re-assess swallow for advancement if warranted. , RD notified of recommendations by secure text, discussed with RN in person. Frequency/Duration: M-F while inpatient. Date Range for Service Req: Timeline to reassess: Provisioning Specialist Clinican/Clinical Fellow: Yes: Blanco Hogan Supervisory Statement: I have reviewed and agree with the student/clinical fellow's documentation: N/A Speech Language Pathologist: Alison Hunter M.A., CCC-SLAG MIXER
--- NOTE | 2022-03-20 17:21 | MHC.SLORD ---
Addendum entered and electronically signed by ALEXYS Woody 03/20/22 17:43: S.W. Original Note: Speech Language Pathology Order Status: MANAGER RESEARCH DEVELOPMENT attempted to see pt 3X for dysphagia tx today. Each time pt was sound asleep and did not awake to verbal stimuli. Rn reports pt swallowed bites of crushed meds in puree this morning and then declined additional bites of puree solids. MANAGER RESEARCH DEVELOPMENT to continue to follow.
[2022-03-20 19:14] VITALS: BP 128/77; PULSE 76; RESP 16; TEMP 36.1; O2SAT 96
[2022-03-20] MEDS: 0.9 % Sodium Chloride Flush 3 ML SYRINGE IVFLUSH (20:46)
[2022-03-20] MEDS: OLANZapine 10 MG TABLET PO (20:46)
[2022-03-20] MEDS: Atorvastatin Calcium 40 MG TABLET PO (20:46)
[2022-03-21] VITALS (7 sets, daily range): BP systolic 134–167; BP diastolic 71–89; PULSE 63–90; RESP 17–19; TEMP 36.3–37.3; O2SAT 93–98
[2022-03-21] MEDS: Albuterol/Iprat 2.5/0.5MG 3 ML AMPUL.NEB INHALE (07:59)
[2022-03-21] MEDS: Cholecalciferol (Vitamin D3) 25 MCG TABLET 50 MCG PO (08:01)
[2022-03-21] MEDS: lisinopriL 5 MG TABLET PO (08:01)
[2022-03-21] MEDS: Cyanocobalamin (Vitamin B-12) 1,000 MCG TABLET 1000 MCG PO (08:01)
[2022-03-21] MEDS: Folic Acid 1 MG TABLET PO (08:02)
[2022-03-21] MEDS: amLODIPine Besylate 10 MG TABLET PO (08:02)
[2022-03-21] MEDS: Tamsulosin HCL 0.4 MG CAPSULE PO (08:02)
[2022-03-21] MEDS: levETIRAcetam 500 MG TABLET PO ×2 (08:02→19:44)
[2022-03-21] MEDS: predniSONE 10 MG TABLET 30 MG PO (08:02)
[2022-03-21] MEDS: Metoprolol Tartrate 25 MG TABLET PO ×2 (08:02→19:44)
[2022-03-21] MEDS: Thiamine HCL 100 MG TABLET PO (08:02)
[2022-03-21] MEDS: Gabapentin 600 MG TABLET PO ×2 (08:02→19:44)
[2022-03-21] MEDS: Fluconazole 100 MG TABLET PO (08:02)
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
[2022-03-21] MEDS: Enoxaparin Sodium 80 MG/0.8 ML SYRINGE SUBCUT ×2 (11:15→22:40)
[2022-03-21] MEDS: OLANZapine 10 MG TABLET PO (19:44)
[2022-03-21] MEDS: Atorvastatin Calcium 40 MG TABLET PO (19:44)
[2022-03-21] MEDS: 0.9 % Sodium Chloride Flush 3 ML SYRINGE IVFLUSH (19:44)
[2022-03-22 03:21] VITALS: BP 167/77; PULSE 92; RESP 19; TEMP 36.4; O2SAT 96
[2022-03-22] MEDS: Omeprazole 40 MG CAPSULE.DR PO (05:31)
[2022-03-22 07:21] VITALS: BP 145/70; PULSE 94; RESP 16; TEMP 36.6; O2SAT 99
[2022-03-22] MEDS: Tamsulosin HCL 0.4 MG CAPSULE PO (09:54)
[2022-03-22] MEDS: Fluconazole 100 MG TABLET PO (09:54)
[2022-03-22] MEDS: Gabapentin 600 MG TABLET PO ×2 (09:54→22:59)
[2022-03-22] MEDS: Folic Acid 1 MG TABLET PO (09:54)
[2022-03-22] MEDS: Thiamine HCL 100 MG TABLET PO (09:54)
[2022-03-22] MEDS: predniSONE 10 MG TABLET 30 MG PO (09:54)
[2022-03-22] MEDS: Metoprolol Tartrate 25 MG TABLET PO ×2 (09:54→22:58)
[2022-03-22] MEDS: lisinopriL 5 MG TABLET PO (09:54)
[2022-03-22] MEDS: Cholecalciferol (Vitamin D3) 25 MCG TABLET 50 MCG PO (09:55)
[2022-03-22] MEDS: amLODIPine Besylate 10 MG TABLET PO (09:55)
[2022-03-22] MEDS: levETIRAcetam 500 MG TABLET PO ×2 (09:55→22:59)
[2022-03-22] MEDS: Cyanocobalamin (Vitamin B-12) 1,000 MCG TABLET 1000 MCG PO (09:55)
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
[2022-03-22 11:25] VITALS: BP 126/74; PULSE 88; RESP 18; TEMP 36.5; O2SAT 94
[2022-03-22] MEDS: Enoxaparin Sodium 80 MG/0.8 ML SYRINGE SUBCUT ×2 (11:26→22:59)
[2022-03-22 15:39] VITALS: BP 146/79; PULSE 88; RESP 17; TEMP 36.6; O2SAT 93
[2022-03-22 20:00] VITALS: BP 171/86; PULSE 88; RESP 18; TEMP 36.5; O2SAT 98
[2022-03-22] MEDS: Atorvastatin Calcium 40 MG TABLET PO (22:58)
[2022-03-22] MEDS: OLANZapine 10 MG TABLET PO (22:59)
[2022-03-22 23:43] VITALS: BP 146/75; PULSE 96; RESP 18; TEMP 36.8; O2SAT 98
[2022-03-23] VITALS (8 sets, daily range): BP systolic 129–187; BP diastolic 44–97; PULSE 94–111; RESP 12–20; TEMP 36.4–37.5; O2SAT 93–100; BMI 25.8
[2022-03-23 09:16] LABS: Hematocrit 45.2 % (42.0-52.0); Hemoglobin 14.6 g/dl (14.0-18.0); Mean Corpuscular HGB Conc 32.3 g/dl (31.0-36.0); Mean Corpuscular Hemoglobin 29.1 pg (27.0-33.0); Mean Platelet Volume 8.7 fL (9.4-12.4); Platelet Count 443 X10*3/uL (160-400); Red Blood Count 5.02 X10*6/uL (4.60-5.80); Red Cell Distribution Width 12.6 % (11.0-16.0); White Blood Count 15.3 X10*3/uL (4.8-10.8)
[2022-03-23 09:33] LABS: Alanine Aminotransferase 52 U/L (0-40); Albumin Level 3.8 g/dL (3.5-5.0); Alkaline Phosphatase 120 U/L (39-117); Anion Gap 16 (12-20); Aspartate Amino Transferase 34 U/L (5-37); Bilirubin Total 0.7 mg/dL (0.0-1.0); Blood Urea Nitrogen 32 mg/dL (9-16); Calcium 10.4 mg/dL (8.4-10.2); Carbon Dioxide 24 mmol/L (22-29); Chloride 108 mmol/L (96-108); Creatinine Clr Calc Pharmacy 84.3; Estimated Glomerular Filt Rate > 60; Glucose Random 111 mg/dL (60-115); Potassium 4.9 mmol/L (3.3-5.1); Sodium 143 mmol/L (135-145); Total Protein 8.4 g/dL (6.5-8.0)
[2022-03-23 09:43] LABS: Ammonia 35 umol/L (13-55)
[2022-03-23 09:54] LABS: HIV AB/AG Nonreactive (Nonreactive); HIV Num 1 0.07 S/CO (0.00-0.99)
[2022-03-23 10:19] LABS: Syphilis Screen Nonreactive (Nonreactive)
--- NOTE | 2022-03-23 10:33 | MHC.SLORD ---
Addendum entered and electronically signed by ALEXYS Woody 03/24/22 09:11: SW Original Note: Speech Language Pathology Order Status: [facility]ADER checked in w/ RN who reports pt is NPO for lumbar puncture. OYSTER GRADER to continue to follow.
--- NOTE | 2022-03-23 12:04 | PC.NURSE ---
pt NPO pending upper endo scheduled today (time unknown when). pt on strict swallow precautions and takes pills crushed in apple sauce. AM medications held per MD after procedure.
--- NOTE | 2022-03-23 12:17 | MHC.CM.PN ---
Per ROUNDS discussion, Patient is having a LP today and is not yet medically cleared for dc. PT is recommending STR and CM will continue to follow.
--- NOTE | 2022-03-23 13:18 | P.CONAN_ITS ---
[facility] Active Problems Active Problems: All Active Problems (Updated 03/18/22 @ 00:51 by Maddy Fang NP) Dementia (Acute) PAD (peripheral artery disease) (Acute) Ulcer of foot (Acute) Thrush, oral (Acute) Alcohol withdrawal (Acute) Encephalopathy (Acute) Hepatitis (Acute) Encephalopathy (Acute) UTI (urinary tract infection) (Acute) Seizure (Acute) Atherosclerotic cardiovascular disease (Acute) Abnormal echocardiogram findings without diagnosis (Acute) Smoking (Acute) Essential hypertension (Acute) Hypertension (Acute) Cardiomyopathy (Acute) B12 deficiency (Acute) Elevated troponin (Acute) Hyperammonemia (Acute) Hypomagnesemia (Acute) Screening for colon cancer (Acute) Hepatitis C antibody positive in blood (Acute) GERD (gastroesophageal reflux disease) (Acute) Past Medical History Medical History (Updated 03/18/22 @ 00:51 by Maddy Fang NP) Alcohol abuse Cardiomyopathy Cellulitis Dementia DVT (deep venous thrombosis) DVT of deep femoral vein GERD (gastroesophageal reflux disease) Hepatitis C antibody positive in blood Hypertension Seizure Family History Family History Father No problems noted. Mother No problems noted. Brother Cancer Sister No problems noted. Family history of problems with anesthesia: No Surgical History Surgical History No pertinent past surgical history History of Problems with Anesthesia: No Social History Social History Household Members: Unknown / Unable to assess Housing: Unknown / Unable to assess Unable to assess alcohol history related to: Unknown Alcohol intake: current Alcohol intake frequency: a few times a week Alcohol type: beer Patient Tobacco Use Status: Tobacco use Unknown Cigarettes Per Day: 7 Use of substances other than those prescribed or required for medical reasons: Unknown Substance Use Type: Unknown Currently Displaying Signs/Symptoms of Drug Intoxication Withdrawal: No Advance Directives: Yes Advance Directives on File: Yes Advance Directives Date on File: 10/11/20 Recently lost weight without trying: Unsure service: No Current occupational status: unemployed and disabled Meds Allergies Allergy/AdvReac Type Severity Reaction Status Date / Time No Known Allergies Allergy Verified 12/29/21 12:36 [No Known Allergies*] Active Medications: Current Medications Amlodipine Besylate (Amlodipine Besylate 10 Mg Tablet) 10 mg PO DAILY [facility]; Protocol Last Admin: 03/22/22 09:55 Dose: 10 mg Atorvastatin Calcium (Atorvastatin Calcium 40 Mg Tablet) 40 mg PO BEDTIME [facility] Last Admin: 03/22/22 22:58 Dose: 40 mg Cyanocobalamin (Cyanocobalamin (Vitamin B-12) 1,000 Mcg Tablet) 1,000 mcg PO DAILY [facility] Last Admin: 03/22/22 09:55 Dose: 1,000 mcg Docusate Sodium (Docusate Sodium 100 Mg Capsule) 100 mg PO DAILY PRN PRN Reason: Constipation Folic Acid (Folic Acid 1 Mg Tablet) 1 mg PO DAILY [facility] Last Admin: 03/22/22 09:54 Dose: 1 mg Gabapentin (Gabapentin 600 Mg Tablet) 600 mg PO BID [facility] Last Admin: 03/22/22 22:59 Dose: 600 mg Levetiracetam (Levetiracetam 500 Mg Tablet) 500 mg PO BID [facility] Last Admin: 03/22/22 22:59 Dose: 500 mg Lisinopril (Lisinopril 5 Mg Tablet) 5 mg PO DAILY [facility]; Protocol Last Admin: 03/22/22 09:54 Dose: 5 mg Metoprolol Tartrate (Metoprolol Tartrate 25 Mg Tablet) 25 mg PO BID [facility]; Protocol Last Admin: 03/22/22 22:58 Dose: 25 mg Olanzapine (Olanzapine 10 Mg Tablet) 10 mg PO BEDTIME [facility] Last Admin: 03/22/22 22:59 Dose: 10 mg Olanzapine (Olanzapine 5 Mg Tablet) 5 mg PO BID PRN PRN Reason: agitation Last Admin: 03/20/22 09:43 Dose: 5 mg Omeprazole (Omeprazole 40 Mg Capsule.Dr) 40 mg PO DAILY@0630 [facility] Last Admin: 03/23/22 06:28 Dose: Not Given Pharmacy Consult (Consult Rx Perform Med Rec) 1 each MISCELLANE ONCE PRN PRN Reason: Consult order Pharmacy Consult (Consult Rx Etoh Phenob Im/Po) 1 each MISCELLANE ONCE PRN; Protocol PRN Reason: Consult order Prednisone (Prednisone 20 Mg Tablet) 20 mg PO DAILY [facility] Sodium Chloride (0.9 % Sodium Chloride Flush 3 Ml Syringe) 3 ml IVFLUSH QSHIFT [facility] Last Admin: 03/23/22 10:16 Dose: Not Given Tamsulosin HCl (Tamsulosin Hcl 0.4 Mg Capsule) 0.4 mg PO DAILY [facility] Last Admin: 03/22/22 09:54 Dose: 0.4 mg Thiamine HCl (Thiamine Hcl 100 Mg Tablet) 100 mg PO DAILY [facility] Last Admin: 03/22/22 09:54 Dose: 100 mg Tiotropium Banner (Tiotropium Banner 18 Mcg Cap.W.Dev) 1 puff INHALE RDAILY [facility] Last Admin: 03/14/22 08:16 Dose: Not Given Vitamin D (Cholecalciferol (Vitamin D3) 25 Mcg Tablet) 50 mcg PO DAILY [facility] Last Admin: 03/22/22 09:55 Dose: 50 mcg Home Medications Medication Instructions Recorded Confirmed Last Taken Type atorvastatin 40 mg tablet 40 mg PO BEDTIME 04/01/20 03/03/22 Unknown History cholecalciferol (vitamin D3) 50 50 mcg PO DAILY 04/01/20 03/03/22 Unknown History mcg (2,000 unit) capsule gabapentin 600 mg tablet 600 mg PO BID 04/01/20 03/03/22 Unknown History metoprolol succinate 25 mg 25 mg PO DAILY 04/01/20 03/03/22 Unknown History tablet,extended release 24 hr phenytoin 50 mg chewable tablet 50 mg PO BID 04/01/20 03/03/22 Unknown History tamsulosin 0.4 mg capsule 0.4 mg PO DAILY 04/01/20 03/03/22 Unknown History umeclidinium 62.5 mcg/actuation 1 puff inhalation DAILY 09/26/20 03/03/22 U nknown History blister powder for inhalation (Incruse Ellipta) sertraline 25 mg tablet 1 tab PO DAILY 06/23/21 03/03/22 Unknown History olanzapine 20 mg tablet 1 tab PO BEDTIME 09/02/21 03/03/22 Unknown History apixaban 5 mg tablet (Eliquis) 5 mg PO BID 11/04/21 03/03/22 Unknown History cyanocobalamin (vitamin B-12) 1,000 mcg PO QAM 11/04/21 03/03/22 Unknown History 1,000 mcg tablet lisinopril 5 mg tablet 5 mg PO DAILY 11/04/21 03/03/22 Unknown History Exam Exam Date and Time: March 23, 2022 1318 Height,Weight and Vital Signs: Height 5 ft 9 in Weight 79.379 kg Last Vital Signs Temp 99.2 F 03/23/22 12:00 Pulse 103 H 03/23/22 12:00 Resp 12 03/23/22 12:00 BP 129/67 03/23/22 12:00 Pulse Ox 93 03/23/22 12:00 O2 Del Method 03/23/22 12:00 O2 Flow Rate 96 03/16/22 00:33 FiO2 94 03/14/22 20:00 Pertinent Lab Results Pertinent Lab Results: Laboratory Tests 03/03/22 03/03/22 03/03/22 09:37 10:37 10:37 WBC RBC Hgb Hct MCV MCH MCHC RDW Plt Count MPV Immature Gran % (Auto) Neut % (Auto) Lymph % (Auto) [place] % (Auto) Eos % (Auto) Baso % (Auto) Lymph # (Auto) [place] # (Auto) Eos # (Auto) Baso # (Auto) Abs Immat Gran (auto) Absolute Neuts (auto) Absolute Nucleated RBC Nucleated RBC % (auto) Smear Tech's Comments ESR PT INR APTT O2 Saturation ABG pH at Pt Temp ABG pCO2 at Pt Temp ABG pO2 at Pt Temp ABG HCO3 ABG Base Excess (Actual) VBG pH VBG pCO2 VBG pO2 VBG HCO3 VBG O2 Saturation VBG Base Excess Sodium 141 Potassium 4.3 Chloride 104 Carbon Dioxide 26 Anion Gap 15 BUN 13 Creatinine 0.74 Estim Creat Clear Calc 96.8 Estimated GFR > 60 POC Glucose 96 Random Glucose 94 Fasting Glucose Lactic Acid Lactic Acid F/U @ 2Hr Calcium 9.5 D Magnesium 1.6 Total Bilirubin 0.6 Direct Bilirubin AST 32 D ALT 13 Alkaline Phosphatase 111 D Ammonia 25 Total Creatine Kinase 1414 H D Troponin I High Sens C-Reactive Protein Total Protein 7.5 Albumin 4.0 Vitamin B12 Folate TSH Urine Color Urine Appearance Urine pH Ur Specific [place] Urine Protein Urine Glucose (UA) Urine Ketones Urine Blood Urine Nitrite Ur Leukocyte Esterase Urine RBC Urine WBC Ur Squamous Epith Cells Urine Bacteria Hyaline Casts Urine Opiates Screen Urine Fentanyl Screen Ur Barbiturates Screen Phenytoin Ur Phencyclidine Scrn Ur Amphetamines Screen U Benzodiazepines Scrn Urine Cocaine Screen U Marijuana (THC) Screen Ethyl Alcohol < 10 T.pallidum Ab (EIA) COVID-19 (KATELYNN) COVID-19 Clin Com HIV 1&2 Ab/P24 Ag 4thGn 03/03/22 03/03/22 03/03/22 10:37 10:37 10:37 WBC 9.5 RBC 4.08 L Hgb 12.3 L Hct 37.1 L MCV 90.9 MCH 30.1 MCHC 33.2 RDW 12.6 Plt Count 256 MPV 8.8 L Immature Gran % (Auto) 0.3 Neut % (Auto) 56.0 Lymph % (Auto) 29.4 [place] % (Auto) 12.0 H Eos % (Auto) 1.6 Baso % (Auto) 0.7 Lymph # (Auto) 2.8 [place] # (Auto) 1.1 Eos # (Auto) 0.2 Baso # (Auto) 0.1 Abs Immat Gran (auto) 0.03 Absolute Neuts (auto) 5.3 Absolute Nucleated RBC 0.000 Nucleated RBC % (auto) 0.0 Smear Tech's Comments ESR PT INR APTT O2 Saturation ABG pH at Pt Temp ABG pCO2 at Pt Temp ABG pO2 at Pt Temp ABG HCO3 ABG Base Excess (Actual) VBG pH VBG pCO2 VBG pO2 VBG HCO3 VBG O2 Saturation VBG Base Excess Sodium Potassium Chloride Carbon Dioxide Anion Gap BUN Creatinine Estim Creat Clear Calc Estimated GFR POC Glucose Random Glucose Fasting Glucose Lactic Acid 1.3 Lactic Acid F/U @ 2Hr Calcium Magnesium Total Bilirubin Direct Bilirubin AST ALT Alkaline Phosphatase Ammonia Total Creatine Kinase Troponin I High Sens 38.5 H C-Reactive Protein Total Protein Albumin Vitamin B12 Folate TSH Urine Color Urine Appearance Urine pH Ur Specific [place] Urine Protein Urine Glucose (UA) Urine Ketones Urine Blood Urine Nitrite Ur Leukocyte Esterase Urine RBC Urine WBC Ur Squamous Epith Cells Urine Bacteria Hyaline Casts Urine Opiates Screen Urine Fentanyl Screen Ur Barbiturates Screen Phenytoin Ur Phencyclidine Scrn Ur Amphetamines Screen U Benzodiazepines Scrn Urine Cocaine Screen U Marijuana (THC) Screen Ethyl Alcohol T.pallidum Ab (EIA) COVID-19 (KATELYNN) COVID-19 Clin Com HIV 1&2 Ab/P24 Ag 4thGn 03/03/22 03/03/22 03/03/22 10:41 10:41 10:41 WBC RBC Hgb Hct MCV MCH MCHC RDW Plt Count MPV Immature Gran % (Auto) Neut % (Auto) Lymph % (Auto) [place] % (Auto) Eos % (Auto) Baso % (Auto) Lymph # (Auto) [place] # (Auto) Eos # (Auto) Baso # (Auto) Abs Immat Gran (auto) Absolute Neuts (auto) Absolute Nucleated RBC Nucleated RBC % (auto) Smear Tech's Comments ESR PT INR APTT O2 Saturation ABG pH at Pt Temp ABG pCO2 at Pt Temp ABG pO2 at Pt Temp ABG HCO3 ABG Base Excess (Actual) VBG pH 7.39 VBG pCO2 40 VBG pO2 34 VBG HCO3 24 VBG O2 Saturation 49.0 VBG Base Excess 0.0 Sodium Potassium Chloride Carbon Dioxide Anion Gap BUN Creatinine Estim Creat Clear Calc Estimated GFR POC Glucose Random Glucose Fasting Glucose Lactic Acid Lactic Acid F/U @ 2Hr Calcium Magnesium Total Bilirubin Direct Bilirubin AST ALT Alkaline Phosphatase Ammonia Total Creatine Kinase Troponin I High Sens C-Reactive Protein Total Protein Albumin Vitamin B12 Folate TSH Urine Color Dark Yellow Urine Appearance Turbid Urine pH 7.0 Ur Specific [place] 1.025 Urine Protein 30 (1+) H Urine Glucose (UA) Negative Urine Ketones 15 Urine Blood Negative Urine Nitrite Negative Ur Leukocyte Esterase Moderate (2+) H Urine RBC >20 H Urine WBC 6-10 H Ur Squamous Epith Cells 0-2 Urine Bacteria 4+ Hyaline Casts 0-2 Urine Opiates Screen Not Detected Urine Fentanyl Screen Not Detected Ur Barbiturates Screen Not Detected Phenytoin Ur Phencyclidine Scrn Not Detected Ur Amphetamines Screen Not Detected U Benzodiazepines Scrn Not Detected Urine Cocaine Screen Not Detected U Marijuana (THC) Screen Not Detected Ethyl Alcohol T.pallidum Ab (EIA) COVID-19 (KATELYNN) COVID-19 Clin Com HIV 1&2 Ab/P24 Ag 4thGn 03/03/22 03/03/22 03/03/22 10:42 12:47 12:47 WBC RBC Hgb Hct MCV MCH MCHC RDW Plt Count MPV Immature Gran % (Auto) Neut % (Auto) Lymph % (Auto) [place] % (Auto) Eos % (Auto) Baso % (Auto) Lymph # (Auto) [place] # (Auto) Eos # (Auto) Baso # (Auto) Abs Immat Gran (auto) Absolute Neuts (auto) Absolute Nucleated RBC Nucleated RBC % (auto) Smear Tech's Comments ESR PT 13.2 H INR 1.1 APTT 27.5 O2 Saturation ABG pH at Pt Temp ABG pCO2 at Pt Temp ABG pO2 at Pt Temp ABG HCO3 ABG Base Excess (Actual) VBG pH VBG pCO2 VBG pO2 VBG HCO3 VBG O2 Saturation VBG Base Excess Sodium Potassium Chloride Carbon Dioxide Anion Gap BUN Creatinine Estim Creat Clear Calc Estimated GFR POC Glucose Random Glucose Fasting Glucose Lactic Acid Lactic Acid F/U @ 2Hr Calcium Magnesium Total Bilirubin Direct Bilirubin AST ALT Alkaline Phosphatase Ammonia Total Creatine Kinase Troponin I High Sens 40.5 H C-Reactive Protein Total Protein Albumin Vitamin B12 Folate TSH Urine Color Urine Appearance Urine pH Ur Specific [place] Urine Protein Urine Glucose (UA) Urine Ketones Urine Blood Urine Nitrite Ur Leukocyte Esterase Urine RBC Urine WBC Ur Squamous Epith Cells Urine Bacteria Hyaline Casts Urine Opiates Screen Urine Fentanyl Screen Ur Barbiturates Screen Phenytoin Ur Phencyclidine Scrn Ur Amphetamines Screen U Benzodiazepines Scrn Urine Cocaine Screen U Marijuana (THC) Screen Ethyl Alcohol T.pallidum Ab (EIA) COVID-19 (KATELYNN) Negative COVID-19 Clin Com See Note HIV 1&2 Ab/P24 Ag 4thGn 03/03/22 03/04/22 03/05/22 15:57 07:10 07:52 WBC 12.4 H RBC 4.54 L Hgb 13.6 L Hct 41.0 L MCV 90.3 MCH 30.0 MCHC 33.2 RDW 12.4 Plt Count 276 MPV 8.8 L Immature Gran % (Auto) 0.2 Neut % (Auto) 59.0 Lymph % (Auto) 25.7 [place] % (Auto) 12.1 H Eos % (Auto) 2.5 Baso % (Auto) 0.5 Lymph # (Auto) 3.2 [place] # (Auto) 1.5 H Eos # (Auto) 0.3 Baso # (Auto) 0.1 Abs Immat Gran (auto) 0.02 Absolute Neuts (auto) 7.3 Absolute Nucleated RBC 0.000 Nucleated RBC % (auto) 0.0 Smear Tech's Comments VERIFIED ESR PT INR APTT O2 Saturation ABG pH at Pt Temp ABG pCO2 at Pt Temp ABG pO2 at Pt Temp ABG HCO3 ABG Base Excess (Actual) VBG pH VBG pCO2 VBG pO2 VBG HCO3 VBG O2 Saturation VBG Base Excess Sodium 138 Potassium 3.9 Chloride 105 Carbon Dioxide 21 L Anion Gap 16 BUN 7 L Creatinine 0.67 Estim Creat Clear Calc 106.9 Estimated GFR > 60 POC Glucose Random Glucose 90 Fasting Glucose Lactic Acid Lactic Acid F/U @ 2Hr Calcium 8.8 D Magnesium Total Bilirubin Direct Bilirubin AST ALT Alkaline Phosphatase Ammonia Total Creatine Kinase 1505 H Troponin I High Sens C-Reactive Protein Total Protein Albumin Vitamin B12 Folate TSH Urine Color Urine Appearance Urine pH Ur Specific [place] Urine Protein Urine Glucose (UA) Urine Ketones Urine Blood Urine Nitrite Ur Leukocyte Esterase Urine RBC Urine WBC Ur Squamous Epith Cells Urine Bacteria Hyaline Casts Urine Opiates Screen Urine Fentanyl Screen Ur Barbiturates Screen Phenytoin 1.3 L* Ur Phencyclidine Scrn Ur Amphetamines Screen U Benzodiazepines Scrn Urine Cocaine Screen U Marijuana (THC) Screen Ethyl Alcohol T.pallidum Ab (EIA) COVID-19 (KATELYNN) COVID-19 Clin Com HIV 1&2 Ab/P24 Ag 4thGn 03/05/22 03/06/22 03/06/22 07:52 08:14 08:14 WBC 10.1 RBC 4.28 L Hgb 12.8 L Hct 38.7 L MCV 90.4 MCH 29.9 MCHC 33.1 RDW 12.5 Plt Count 276 MPV 8.7 L Immature Gran % (Auto) 0.2 Neut % (Auto) 57.7 Lymph % (Auto) 25.0 [place] % (Auto) 12.2 H Eos % (Auto) 4.5 H Baso % (Auto) 0.4 Lymph # (Auto) 2.5 [place] # (Auto) 1.2 Eos # (Auto) 0.5 H Baso # (Auto) 0.0 Abs Immat Gran (auto) 0.02 Absolute Neuts (auto) 5.8 Absolute Nucleated RBC 0.000 Nucleated RBC % (auto) 0.0 Smear Tech's Comments ESR PT INR APTT O2 Saturation ABG pH at Pt Temp ABG pCO2 at Pt Temp ABG pO2 at Pt Temp ABG HCO3 ABG Base Excess (Actual) VBG pH VBG pCO2 VBG pO2 VBG HCO3 VBG O2 Saturation VBG Base Excess Sodium 136 138 Potassium 4.8 D 3.8 D Chloride 102 102 Carbon Dioxide 18 L 23 Anion Gap 21 H 17 BUN 7 L 12 D Creatinine 0.70 0.73 Estim Creat Clear Calc 102.4 98.1 Estimated GFR > 60 > 60 POC Glucose Random Glucose Fasting Glucose 82 92 Lactic Acid Lactic Acid F/U @ 2Hr Calcium 8.9 9.1 Magnesium Total Bilirubin 0.8 0.6 Direct Bilirubin AST 30 19 ALT 13 9 Alkaline Phosphatase 98 91 Ammonia Total Creatine Kinase Troponin I High Sens C-Reactive Protein Total Protein 7.3 7.0 Albumin 3.7 3.6 Vitamin B12 Folate TSH Urine Color Urine Appearance Urine pH Ur Specific [place] Urine Protein Urine Glucose (UA) Urine Ketones Urine Blood Urine Nitrite Ur Leukocyte Esterase Urine RBC Urine WBC Ur Squamous Epith Cells Urine Bacteria Hyaline Casts Urine Opiates Screen Urine Fentanyl Screen Ur Barbiturates Screen Phenytoin Ur Phencyclidine Scrn Ur Amphetamines Screen U Benzodiazepines Scrn Urine Cocaine Screen U Marijuana (THC) Screen Ethyl Alcohol T.pallidum Ab (EIA) COVID-19 (KATELYNN) COVID-19 Clin Com HIV 1&2 Ab/P24 Ag 4thGn 03/06/22 03/06/22 03/06/22 08:15 09:51 09:57 WBC RBC Hgb Hct MCV MCH MCHC RDW Plt Count MPV Immature Gran % (Auto) Neut % (Auto) Lymph % (Auto) [place] % (Auto) Eos % (Auto) Baso % (Auto) Lymph # (Auto) [place] # (Auto) Eos # (Auto) Baso # (Auto) Abs Immat Gran (auto) Absolute Neuts (auto) Absolute Nucleated RBC Nucleated RBC % (auto) Smear Tech's Comments ESR PT INR APTT O2 Saturation 93.0 ABG pH at Pt Temp 7.42 ABG pCO2 at Pt Temp 30 L ABG pO2 at Pt Temp 75 L ABG HCO3 20 L ABG Base Excess (Actual) -2.9 VBG pH VBG pCO2 VBG pO2 VBG HCO3 VBG O2 Saturation VBG Base Excess Sodium Potassium Chloride Carbon Dioxide Anion Gap BUN Creatinine Estim Creat Clear Calc Estimated GFR POC Glucose Random Glucose Fasting Glucose Lactic Acid Lactic Acid F/U @ 2Hr Calcium Magnesium Total Bilirubin Direct Bilirubin AST ALT Alkaline Phosphatase Ammonia 31 Total Creatine Kinase 615 H D Troponin I High Sens C-Reactive Protein Total Protein Albumin Vitamin B12 Folate TSH Urine Color Urine Appearance Urine pH Ur Specific [place] Urine Protein Urine Glucose (UA) Urine Ketones Urine Blood Urine Nitrite Ur Leukocyte Esterase Urine RBC Urine WBC Ur Squamous Epith Cells Urine Bacteria Hyaline Casts Urine Opiates Screen Urine Fentanyl Screen Ur Barbiturates Screen Phenytoin Ur Phencyclidine Scrn Ur Amphetamines Screen U Benzodiazepines Scrn Urine Cocaine Screen U Marijuana (THC) Screen Ethyl Alcohol T.pallidum Ab (EIA) COVID-19 (KATELYNN) COVID-19 Clin Com HIV 1&2 Ab/P24 Ag 4thGn 03/07/22 03/07/22 03/11/22 07:07 08:24 09:20 WBC 9.1 8.1 RBC 4.43 L 4.18 L Hgb 13.0 L 12.3 L Hct 40.1 L 38.4 L MCV 90.5 91.9 MCH 29.3 29.4 MCHC 32.4 32.0 RDW 12.6 12.3 Plt Count 311 352 MPV 8.8 L 8.3 L Immature Gran % (Auto) 0.3 0.1 Neut % (Auto) 53.8 55.8 Lymph % (Auto) 27.6 25.9 [place] % (Auto) 12.3 H 11.3 H Eos % (Auto) 5.5 H 6.3 H Baso % (Auto) 0.5 0.6 Lymph # (Auto) 2.5 2.1 [place] # (Auto) 1.1 0.9 Eos # (Auto) 0.5 H 0.5 H Baso # (Auto) 0.1 0.1 Abs Immat Gran (auto) 0.03 0.01 Absolute Neuts (auto) 4.9 4.5 Absolute Nucleated RBC 0.000 0.000 Nucleated RBC % (auto) 0.0 0.0 Smear Tech's Comments ESR PT INR APTT O2 Saturation ABG pH at Pt Temp ABG pCO2 at Pt Temp ABG pO2 at Pt Temp ABG HCO3 ABG Base Excess (Actual) VBG pH VBG pCO2 VBG pO2 VBG HCO3 VBG O2 Saturation VBG Base Excess Sodium 136 Potassium 4.8 D Chloride 102 Carbon Dioxide 20 L Anion Gap 19 BUN 9 Creatinine 0.69 Estim Creat Clear Calc 103.8 Estimated GFR > 60 POC Glucose Random Glucose TNP Fasting Glucose 119 H Lactic Acid Lactic Acid F/U @ 2Hr Calcium 8.9 Magnesium Total Bilirubin 0.4 Direct Bilirubin AST 24 ALT 10 Alkaline Phosphatase 89 Ammonia Total Creatine Kinase Troponin I High Sens C-Reactive Protein Total Protein 7.4 Albumin 3.5 Vitamin B12 Folate TSH Urine Color Urine Appearance Urine pH Ur Specific [place] Urine Protein Urine Glucose (UA) Urine Ketones Urine Blood Urine Nitrite Ur Leukocyte Esterase Urine RBC Urine WBC Ur Squamous Epith Cells Urine Bacteria Hyaline Casts Urine Opiates Screen Urine Fentanyl Screen Ur Barbiturates Screen Phenytoin Ur Phencyclidine Scrn Ur Amphetamines Screen U Benzodiazepines Scrn Urine Cocaine Screen U Marijuana (THC) Screen Ethyl Alcohol T.pallidum Ab (EIA) COVID-19 (KATELYNN) COVID-19 Clin Com HIV 1&2 Ab/P24 Ag 4thGn 03/11/22 03/11/22 03/11/22 09:20 09:20 09:20 WBC RBC Hgb Hct MCV MCH MCHC RDW Plt Count MPV Immature Gran % (Auto) Neut % (Auto) Lymph % (Auto) [place] % (Auto) Eos % (Auto) Baso % (Auto) Lymph # (Auto) [place] # (Auto) Eos # (Auto) Baso # (Auto) Abs Immat Gran (auto) Absolute Neuts (auto) Absolute Nucleated RBC Nucleated RBC % (auto) Smear Tech's Comments ESR PT INR APTT O2 Saturation ABG pH at Pt Temp ABG pCO2 at Pt Temp ABG pO2 at Pt Temp ABG HCO3 ABG Base Excess (Actual) VBG pH VBG pCO2 VBG pO2 VBG HCO3 VBG O2 Saturation VBG Base Excess Sodium 138 Potassium 4.9 Chloride 103 Carbon Dioxide 26 Anion Gap 14 BUN 9 Creatinine 0.62 Estim Creat Clear Calc 115.6 Estimated GFR > 60 POC Glucose Random Glucose 95 Fasting Glucose Lactic Acid 2.1 H* Lactic Acid F/U @ 2Hr Calcium 9.2 Magnesium Total Bilirubin 0.4 Direct Bilirubin 0.3 AST 31 ALT 17 Alkaline Phosphatase 88 Ammonia Total Creatine Kinase Troponin I High Sens C-Reactive Protein Total Protein 7.3 Albumin 3.4 L Vitamin B12 Folate TSH Urine Color Urine Appearance Urine pH Ur Specific [place] Urine Protein Urine Glucose (UA) Urine Ketones Urine Blood Urine Nitrite Ur Leukocyte Esterase Urine RBC Urine WBC Ur Squamous Epith Cells Urine Bacteria Hyaline Casts Urine Opiates Screen Urine Fentanyl Screen Ur Barbiturates Screen Phenytoin Ur Phencyclidine Scrn Ur Amphetamines Screen U Benzodiazepines Scrn Urine Cocaine Screen U Marijuana (THC) Screen Ethyl Alcohol T.pallidum Ab (EIA) COVID-19 (KATELYNN) COVID-19 Clin Com HIV 1&2 Ab/P24 Ag 4thGn 03/11/22 03/11/22 03/11/22 09:20 09:27 11:37 WBC RBC Hgb Hct MCV MCH MCHC RDW Plt Count MPV Immature Gran % (Auto) Neut % (Auto) Lymph % (Auto) [place] % (Auto) Eos % (Auto) Baso % (Auto) Lymph # (Auto) [place] # (Auto) Eos # (Auto) Baso # (Auto) Abs Immat Gran (auto) Absolute Neuts (auto) Absolute Nucleated RBC Nucleated RBC % (auto) Smear Tech's Comments ESR PT INR APTT O2 Saturation ABG pH at Pt Temp ABG pCO2 at Pt Temp ABG pO2 at Pt Temp ABG HCO3 ABG Base Excess (Actual) VBG pH 7.35 VBG pCO2 40 VBG pO2 40 VBG HCO3 23 VBG O2 Saturation 56.0 VBG Base Excess -2.0 Sodium Potassium Chloride Carbon Dioxide Anion Gap BUN Creatinine Estim Creat Clear Calc Estimated GFR POC Glucose Random Glucose Fasting Glucose Lactic Acid Lactic Acid F/U @ 2Hr 0.7 Calcium Magnesium Total Bilirubin Direct Bilirubin AST ALT Alkaline Phosphatase Ammonia 30 Total Creatine Kinase Troponin I High Sens C-Reactive Protein Total Protein Albumin Vitamin B12 Folate TSH Urine Color Urine Appearance Urine pH Ur Specific [place] Urine Protein Urine Glucose (UA) Urine Ketones Urine Blood Urine Nitrite Ur Leukocyte Esterase Urine RBC Urine WBC Ur Squamous Epith Cells Urine Bacteria Hyaline Casts Urine Opiates Screen Urine Fentanyl Screen Ur Barbiturates Screen Phenytoin Ur Phencyclidine Scrn Ur Amphetamines Screen U Benzodiazepines Scrn Urine Cocaine Screen U Marijuana (THC) Screen Ethyl Alcohol T.pallidum Ab (EIA) COVID-19 (KATELYNN) COVID-19 Clin Com HIV 1&2 Ab/P24 Ag 4thGn 03/12/22 03/13/22 03/13/22 15:37 07:50 07:50 WBC 8.8 RBC 4.32 L Hgb 12.6 L Hct 38.9 L MCV 90.0 MCH 29.2 MCHC 32.4 RDW 12.3 Plt Count 367 MPV 8.5 L Immature Gran % (Auto) Neut % (Auto) Lymph % (Auto) [place] % (Auto) Eos % (Auto) Baso % (Auto) Lymph # (Auto) [place] # (Auto) Eos # (Auto) Baso # (Auto) Abs Immat Gran (auto) Absolute Neuts (auto) Absolute Nucleated RBC 0.000 Nucleated RBC % (auto) 0.0 Smear Tech's Comments ESR PT INR APTT O2 Saturation ABG pH at Pt Temp ABG pCO2 at Pt Temp ABG pO2 at Pt Temp ABG HCO3 ABG Base Excess (Actual) VBG pH VBG pCO2 VBG pO2 VBG HCO3 VBG O2 Saturation VBG Base Excess Sodium 143 Potassium 4.9 Chloride 112 H Carbon Dioxide 19 L Anion Gap 17 BUN 11 Creatinine 0.57 Estim Creat Clear Calc 125.7 Estimated GFR > 60 POC Glucose 126 H Random Glucose 110 Fasting Glucose Lactic Acid Lactic Acid F/U @ 2Hr Calcium 9.0 Magnesium Total Bilirubin Direct Bilirubin AST ALT Alkaline Phosphatase Ammonia Total Creatine Kinase Troponin I High Sens C-Reactive Protein Total Protein Albumin Vitamin B12 Folate TSH Urine Color Urine Appearance Urine pH Ur Specific [place] Urine Protein Urine Glucose (UA) Urine Ketones Urine Blood Urine Nitrite Ur Leukocyte Esterase Urine RBC Urine WBC Ur Squamous Epith Cells Urine Bacteria Hyaline Casts Urine Opiates Screen Urine Fentanyl Screen Ur Barbiturates Screen Phenytoin Ur Phencyclidine Scrn Ur Amphetamines Screen U Benzodiazepines Scrn Urine Cocaine Screen U Marijuana (THC) Screen Ethyl Alcohol T.pallidum Ab (EIA) COVID-19 (KATELYNN) COVID-19 Clin Com HIV 1&2 Ab/P24 Ag 4thGn 03/14/22 03/15/22 03/15/22 05:58 05:49 05:49 WBC 9.5 RBC 4.36 L Hgb 12.9 L Hct 39.7 L MCV 91.1 MCH 29.6 MCHC 32.5 RDW 12.4 Plt Count 387 MPV 8.5 L Immature Gran % (Auto) Neut % (Auto) Lymph % (Auto) [place] % (Auto) Eos % (Auto) Baso % (Auto) Lymph # (Auto) [place] # (Auto) Eos # (Auto) Baso # (Auto) Abs Immat Gran (auto) Absolute Neuts (auto) Absolute Nucleated RBC 0.000 Nucleated RBC % (auto) 0.0 Smear Tech's Comments ESR PT INR APTT O2 Saturation ABG pH at Pt Temp ABG pCO2 at Pt Temp ABG pO2 at Pt Temp ABG HCO3 ABG Base Excess (Actual) VBG pH VBG pCO2 VBG pO2 VBG HCO3 VBG O2 Saturation VBG Base Excess Sodium 141 142 Potassium 4.0 4.0 Chloride 107 105 Carbon Dioxide 23 25 Anion Gap 15 16 BUN 11 14 Creatinine 0.65 0.69 Estim Creat Clear Calc 110.2 103.8 Estimated GFR > 60 > 60 POC Glucose Random Glucose 122 H 94 Fasting Glucose Lactic Acid Lactic Acid F/U @ 2Hr Calcium 9.4 9.3 Magnesium Total Bilirubin 0.4 Direct Bilirubin 0.3 AST 29 ALT 29 Alkaline Phosphatase 94 Ammonia Total Creatine Kinase Troponin I High Sens C-Reactive Protein Total Protein 7.2 Albumin 3.4 L Vitamin B12 Folate TSH Urine Color Urine Appearance Urine pH Ur Specific [place] Urine Protein Urine Glucose (UA) Urine Ketones Urine Blood Urine Nitrite Ur Leukocyte Esterase Urine RBC Urine WBC Ur Squamous Epith Cells Urine Bacteria Hyaline Casts Urine Opiates Screen Urine Fentanyl Screen Ur Barbiturates Screen Phenytoin Ur Phencyclidine Scrn Ur Amphetamines Screen U Benzodiazepines Scrn Urine Cocaine Screen U Marijuana (THC) Screen Ethyl Alcohol T.pallidum Ab (EIA) COVID-19 (KATELYNN) COVID-19 Clin Com HIV 1&2 Ab/P24 Ag 4thGn 03/16/22 03/16/22 03/16/22 06:35 06:35 06:35 WBC RBC Hgb Hct MCV MCH MCHC RDW Plt Count MPV Immature Gran % (Auto) Neut % (Auto) Lymph % (Auto) [place] % (Auto) Eos % (Auto) Baso % (Auto) Lymph # (Auto) [place] # (Auto) Eos # (Auto) Baso # (Auto) Abs Immat Gran (auto) Absolute Neuts (auto) Absolute Nucleated RBC Nucleated RBC % (auto) Smear Tech's Comments ESR 67 H PT INR APTT O2 Saturation ABG pH at Pt Temp ABG pCO2 at Pt Temp ABG pO2 at Pt Temp ABG HCO3 ABG Base Excess (Actual) VBG pH VBG pCO2 VBG pO2 VBG HCO3 VBG O2 Saturation VBG Base Excess Sodium Potassium Chloride Carbon Dioxide Anion Gap BUN Creatinine Estim Creat Clear Calc Estimated GFR POC Glucose Random Glucose Fasting Glucose Lactic Acid Lactic Acid F/U @ 2Hr Calcium Magnesium Total Bilirubin Direct Bilirubin AST ALT Alkaline Phosphatase Ammonia Total Creatine Kinase Troponin I High Sens C-Reactive Protein 6.53 H Total Protein Albumin Vitamin B12 > 2000 H Folate 19.5 TSH Urine Color Urine Appearance Urine pH Ur Specific [place] Urine Protein Urine Glucose (UA) Urine Ketones Urine Blood Urine Nitrite Ur Leukocyte Esterase Urine RBC Urine WBC Ur Squamous Epith Cells Urine Bacteria Hyaline Casts Urine Opiates Screen Urine Fentanyl Screen Ur Barbiturates Screen Phenytoin Ur Phencyclidine Scrn Ur Amphetamines Screen U Benzodiazepines Scrn Urine Cocaine Screen U Marijuana (THC) Screen Ethyl Alcohol T.pallidum Ab (EIA) COVID-19 (KATELYNN) COVID-19 Clin Com HIV 1&2 Ab/P24 Ag 4thGn 03/18/22 03/18/22 03/18/22 05:55 05:55 05:55 WBC 12.7 H RBC 4.64 Hgb 13.4 L Hct 42.5 MCV 91.6 MCH 28.9 MCHC 31.5 RDW 12.5 Plt Count 414 H MPV 8.4 L Immature Gran % (Auto) Neut % (Auto) Lymph % (Auto) [place] % (Auto) Eos % (Auto) Baso % (Auto) Lymph # (Auto) [place] # (Auto) Eos # (Auto) Baso # (Auto) Abs Immat Gran (auto) Absolute Neuts (auto) Absolute Nucleated RBC 0.000 Nucleated RBC % (auto) 0.0 Smear Tech's Comments ESR PT INR APTT O2 Saturation ABG pH at Pt Temp ABG pCO2 at Pt Temp ABG pO2 at Pt Temp ABG HCO3 ABG Base Excess (Actual) VBG pH VBG pCO2 VBG pO2 VBG HCO3 VBG O2 Saturation VBG Base Excess Sodium 139 Potassium 4.4 Chloride 104 Carbon Dioxide 27 Anion Gap 12 BUN 17 H Creatinine 0.71 Estim Creat Clear Calc 100.9 Estimated GFR > 60 POC Glucose Random Glucose 114 Fasting Glucose Lactic Acid Lactic Acid F/U @ 2Hr Calcium 9.4 Magnesium 1.9 Total Bilirubin 0.5 Direct Bilirubin 0.4 AST 29 ALT 38 Alkaline Phosphatase 110 Ammonia Total Creatine Kinase Troponin I High Sens C-Reactive Protein Total Protein 7.8 Albumin 3.6 Vitamin B12 Folate TSH Urine Color Urine Appearance Urine pH Ur Specific [place] Urine Protein Urine Glucose (UA) Urine Ketones Urine Blood Urine Nitrite Ur Leukocyte Esterase Urine RBC Urine WBC Ur Squamous Epith Cells Urine Bacteria Hyaline Casts Urine Opiates Screen Urine Fentanyl Screen Ur Barbiturates Screen Phenytoin Ur Phencyclidine Scrn Ur Amphetamines Screen U Benzodiazepines Scrn Urine Cocaine Screen U Marijuana (THC) Screen Ethyl Alcohol T.pallidum Ab (EIA) COVID-19 (KATELYNN) COVID-19 Clin Com HIV 1&2 Ab/P24 Ag 4thGn 03/18/22 03/19/22 03/20/22 06:24 06:41 05:57 WBC 12.8 H 11.8 H RBC 4.47 L 4.59 L Hgb 13.2 L 13.8 L Hct 40.8 L 41.2 L MCV 91.3 89.8 MCH 29.5 30.1 MCHC 32.4 33.5 RDW 12.5 12.5 Plt Count 410 H 395 MPV 8.4 L 9.1 L Immature Gran % (Auto) Neut % (Auto) Lymph % (Auto) [place] % (Auto) Eos % (Auto) Baso % (Auto) Lymph # (Auto) [place] # (Auto) Eos # (Auto) Baso # (Auto) Abs Immat Gran (auto) Absolute Neuts (auto) Absolute Nucleated RBC 0.000 0.000 Nucleated RBC % (auto) 0.0 0.0 Smear Tech's Comments ESR PT INR APTT O2 Saturation ABG pH at Pt Temp ABG pCO2 at Pt Temp ABG pO2 at Pt Temp ABG HCO3 ABG Base Excess (Actual) VBG pH VBG pCO2 VBG pO2 VBG HCO3 VBG O2 Saturation VBG Base Excess Sodium Potassium Chloride Carbon Dioxide Anion Gap BUN Creatinine Estim Creat Clear Calc Estimated GFR POC Glucose Random Glucose Fasting Glucose Lactic Acid Lactic Acid F/U @ 2Hr Calcium Magnesium Total Bilirubin Direct Bilirubin AST ALT Alkaline Phosphatase Ammonia 29 Total Creatine Kinase Troponin I High Sens C-Reactive Protein Total Protein Albumin Vitamin B12 Folate TSH Urine Color Urine Appearance Urine pH Ur Specific [place] Urine Protein Urine Glucose (UA) Urine Ketones Urine Blood Urine Nitrite Ur Leukocyte Esterase Urine RBC Urine WBC Ur Squamous Epith Cells Urine Bacteria Hyaline Casts Urine Opiates Screen Urine Fentanyl Screen Ur Barbiturates Screen Phenytoin Ur Phencyclidine Scrn Ur Amphetamines Screen U Benzodiazepines Scrn Urine Cocaine Screen U Marijuana (THC) Screen Ethyl Alcohol T.pallidum Ab (EIA) COVID-19 (KATELYNN) COVID-19 Clin Com HIV 1&2 Ab/P24 Ag 4thGn 03/20/22 03/20/22 03/20/22 05:57 05:57 08:39 WBC RBC Hgb Hct MCV MCH MCHC RDW Plt Count MPV Immature Gran % (Auto) Neut % (Auto) Lymph % (Auto) [place] % (Auto) Eos % (Auto) Baso % (Auto) Lymph # (Auto) [place] # (Auto) Eos # (Auto) Baso # (Auto) Abs Immat Gran (auto) Absolute Neuts (auto) Absolute Nucleated RBC Nucleated RBC % (auto) Smear Tech's Comments ESR PT 15.8 H INR 1.4 H APTT O2 Saturation ABG pH at Pt Temp ABG pCO2 at Pt Temp ABG pO2 at Pt Temp ABG HCO3 ABG Base Excess (Actual) VBG pH VBG pCO2 VBG pO2 VBG HCO3 VBG O2 Saturation VBG Base Excess Sodium 139 Potassium 4.7 Chloride 104 Carbon Dioxide 21 L Anion Gap 19 BUN 19 H Creatinine 0.70 Estim Creat Clear Calc 102.4 Estimated GFR > 60 POC Glucose Random Glucose 87 Fasting Glucose Lactic Acid Lactic Acid F/U @ 2Hr Calcium 9.9 Magnesium Total Bilirubin Direct Bilirubin AST ALT Alkaline Phosphatase Ammonia Total Creatine Kinase Troponin I High Sens C-Reactive Protein Total Protein Albumin Vitamin B12 Folate TSH Cancelled 2.29 Urine Color Urine Appearance Urine pH Ur Specific [place] Urine Protein Urine Glucose (UA) Urine Ketones Urine Blood Urine Nitrite Ur Leukocyte Esterase Urine RBC Urine WBC Ur Squamous Epith Cells Urine Bacteria Hyaline Casts Urine Opiates Screen Urine Fentanyl Screen Ur Barbiturates Screen Phenytoin Ur Phencyclidine Scrn Ur Amphetamines Screen U Benzodiazepines Scrn Urine Cocaine Screen U Marijuana (THC) Screen Ethyl Alcohol T.pallidum Ab (EIA) COVID-19 (KATELYNN) COVID-19 Clin Com HIV 1&2 Ab/P24 Ag 4thGn 03/23/22 03/23/22 03/23/22 08:54 08:54 08:54 WBC 15.3 H RBC 5.02 Hgb 14.6 Hct 45.2 MCV 90.0 MCH 29.1 MCHC 32.3 RDW 12.6 Plt Count 443 H MPV 8.7 L Immature Gran % (Auto) Neut % (Auto) Lymph % (Auto) [place] % (Auto) Eos % (Auto) Baso % (Auto) Lymph # (Auto) [place] # (Auto) Eos # (Auto) Baso # (Auto) Abs Immat Gran (auto) Absolute Neuts (auto) Absolute Nucleated RBC 0.000 Nucleated RBC % (auto) 0.0 Smear Tech's Comments ESR PT INR APTT O2 Saturation ABG pH at Pt Temp ABG pCO2 at Pt Temp ABG pO2 at Pt Temp ABG HCO3 ABG Base Excess (Actual) VBG pH VBG pCO2 VBG pO2 VBG HCO3 VBG O2 Saturation VBG Base Excess Sodium Potassium Chloride Carbon Dioxide Anion Gap BUN Creatinine Estim Creat Clear Calc Estimated GFR POC Glucose Random Glucose Fasting Glucose Lactic Acid Lactic Acid F/U @ 2Hr Calcium Magnesium Total Bilirubin Direct Bilirubin AST ALT Alkaline Phosphatase Ammonia 35 Total Creatine Kinase Troponin I High Sens C-Reactive Protein Total Protein Albumin Vitamin B12 Folate TSH Urine Color Urine Appearance Urine pH Ur Specific [place] Urine Protein Urine Glucose (UA) Urine Ketones Urine Blood Urine Nitrite Ur Leukocyte Esterase Urine RBC Urine WBC Ur Squamous Epith Cells Urine Bacteria Hyaline Casts Urine Opiates Screen Urine Fentanyl Screen Ur Barbiturates Screen Phenytoin Ur Phencyclidine Scrn Ur Amphetamines Screen U Benzodiazepines Scrn Urine Cocaine Screen U Marijuana (THC) Screen Ethyl Alcohol T.pallidum Ab (EIA) Nonreactive COVID-19 (KATELYNN) COVID-19 Clin Com HIV 1&2 Ab/P24 Ag 4thGn 03/23/22 03/23/22 08:54 08:54 WBC RBC Hgb Hct MCV MCH MCHC RDW Plt Count MPV Immature Gran % (Auto) Neut % (Auto) Lymph % (Auto) [place] % (Auto) Eos % (Auto) Baso % (Auto) Lymph # (Auto) [place] # (Auto) Eos # (Auto) Baso # (Auto) Abs Immat Gran (auto) Absolute Neuts (auto) Absolute Nucleated RBC Nucleated RBC % (auto) Smear Tech's Comments ESR PT INR APTT O2 Saturation ABG pH at Pt Temp ABG pCO2 at Pt Temp ABG pO2 at Pt Temp ABG HCO3 ABG Base Excess (Actual) VBG pH VBG pCO2 VBG pO2 VBG HCO3 VBG O2 Saturation VBG Base Excess Sodium 143 Potassium 4.9 Chloride 108 Carbon Dioxide 24 Anion Gap 16 BUN 32 H Creatinine 0.85 Estim Creat Clear Calc 84.3 Estimated GFR > 60 POC Glucose Random Glucose 111 Fasting Glucose Lactic Acid Lactic Acid F/U @ 2Hr Calcium 10.4 H Magnesium Total Bilirubin 0.7 Direct Bilirubin AST 34 ALT 52 H Alkaline Phosphatase 120 H Ammonia Total Creatine Kinase Troponin I High Sens C-Reactive Protein Total Protein 8.4 H Albumin 3.8 Vitamin B12 Folate TSH Urine Color Urine Appearance Urine pH Ur Specific [place] Urine Protein Urine Glucose (UA) Urine Ketones Urine Blood Urine Nitrite Ur Leukocyte Esterase Urine RBC Urine WBC Ur Squamous Epith Cells Urine Bacteria Hyaline Casts Urine Opiates Screen Urine Fentanyl Screen Ur Barbiturates Screen Phenytoin Ur Phencyclidine Scrn Ur Amphetamines Screen U Benzodiazepines Scrn Urine Cocaine Screen U Marijuana (THC) Screen Ethyl Alcohol T.pallidum Ab (EIA) COVID-19 (KATELYNN) COVID-19 Clin Com HIV 1&2 Ab/P24 Ag 4thGn Nonreactive Airway Mallampati Class: II (Edentulou) TM Dist: >3cm Neck ROM: Full Heart: rrr Lungs: cta Assessment and Plan Assessment Anesthesia Assessment: Anesthesia Plan Discussed and Chart Reviewed Final Anesthetic Review Family History of Problems with Anesthesia: No History of Problems with Anesthesia: No NPO: Yes ASA Class: III Final Preanesthetic Review: No Changes in Pt Med Stat, Meds/Allgs Chart Reviewed and Consent Obtained/Reviewed Patient Risk: Intermediate Procedure Risk: Intermediate Anesthetic Plan Anesthetic Plan: MAC: Disposition: Standard PACU
[2022-03-23 13:36] LABS: INTERNATIONAL NORM RATIO 1.3 (0.9-1.1); Prothrombin Time 15.1 SEC (10.0-13.1)
[2022-03-23 13:38] LABS: Partial Thromboplastin Time 33.2 SEC (26.0-36.4)
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
[2022-03-23 15:33] LABS: CSF Appearance Cloudy; CSF Tube # 1
[2022-03-23 15:56] LABS: Glucose CSF 77 mg/dL; Total Protein CSF 155.8 mg/dL (15-45)
[2022-03-23] MEDS: amLODIPine Besylate 10 MG TABLET PO (17:24)
[2022-03-23] MEDS: Cholecalciferol (Vitamin D3) 25 MCG TABLET 50 MCG PO (17:25)
[2022-03-23] MEDS: Gabapentin 600 MG TABLET PO ×2 (17:25→21:11)
[2022-03-23] MEDS: lisinopriL 5 MG TABLET PO (17:25)
[2022-03-23] MEDS: Folic Acid 1 MG TABLET PO (17:25)
[2022-03-23] MEDS: Thiamine HCL 100 MG TABLET PO (17:25)
[2022-03-23] MEDS: Tamsulosin HCL 0.4 MG CAPSULE PO (17:25)
[2022-03-23] MEDS: levETIRAcetam 500 MG TABLET PO ×2 (17:25→21:11)
[2022-03-23] MEDS: predniSONE 20 MG TABLET PO (17:25)
[2022-03-23] MEDS: Cyanocobalamin (Vitamin B-12) 1,000 MCG TABLET 1000 MCG PO (17:26)
[2022-03-23 18:06] LABS: Cryptococcus neoformans/gattii Not Detected (Not Detect.); Enterovirus Not Detected (Not Detect.); Escherichia coli K1 Not Detected (Not Detect.); Haemophilus influenzae Not Detected (Not Detect.); Herpes simplex virus 1 Not Detected (Not Detect.); Herpes simplex virus 2 Not Detected (Not Detect.); Human herpesvirus 6 Not Detected (Not Detect.); Human parechovirus Not Detected (Not Detect.); Listeria monocytogenes Not Detected (Not Detect.); Neisseria meningitidis Not Detected (Not Detect.); Streptococcus agalactiae Not Detected (Not Detect.); Streptococcus pneumoniae Not Detected (Not Detect.); Varicella zoster virus Not Detected (Not Detect.)
[2022-03-23 18:18] LABS: Appearance CSF BLOODY; CSF Tube # 4; CSF Volume 1.5 ML; Color CSF RED
[2022-03-23 18:33] LABS: Lymphocytes CSF 44 %; Neutrophils CSF 55 %; Red Blood Cell CSF 36750 MM*3; White Blood Cell CSF 320 MM*3
[2022-03-23] MEDS: Metoprolol Tartrate 25 MG TABLET PO (21:10)
[2022-03-23] MEDS: Atorvastatin Calcium 40 MG TABLET PO (21:11)
[2022-03-23] MEDS: OLANZapine 10 MG TABLET PO (21:11)
[2022-03-24] VITALS (7 sets, daily range): BP systolic 131–142; BP diastolic 66–85; PULSE 85–105; RESP 16–19; TEMP 36.2–38.1; O2SAT 95–99
--- NOTE | 2022-03-24 11:32 | HO.POSTANES ---
Post Anesthesia Evaluation Post Anesthesia Evaluation Vital Signs: Vital Signs Temp Pulse Resp BP Pulse Ox O2 Del Method 03/24/22 08:00 97.8 F 98 16 141/85 H 95 Room Air 03/24/22 04:00 97.7 F 105 H 16 140/75 H 95 Room Air 03/23/22 23:58 97.5 F 104 H 16 137/44 L 94 Room Air Anesthesia: Monitored Mental Status: Awake Pain Control: Satisfactory Nausea/Vomiting: None Hydration: Adequate Anesthesia-Related Issues: No Anes. Related Issues
--- NOTE | 2022-03-24 11:57 | EEG_ITS ---
This is a 16-channel EEG with an EKG lead. The patient is reported awake and restless and confused during the tracing. Background EEG rhythm is almost continuously contaminated by muscle lead artifacts. It seems to be medium amplitude mixed theta to delta with no obvious asymmetry or paroxysmal tendency. Photic stimulation and hyperventilation were not performed. Cardiac lead did not reveal any significant abnormality other than tachycardia. IMPRESSION: Generalized slowing with no evidence of seizure disorder. MD PETER Sarmiento/ARJUN / [id number]
[2022-03-24] MEDS: levETIRAcetam 500 MG TABLET PO ×2 (12:28→20:06)
[2022-03-24] MEDS: predniSONE 20 MG TABLET PO (12:28)
[2022-03-24] MEDS: Thiamine HCL 100 MG TABLET PO (12:28)
[2022-03-24] MEDS: amLODIPine Besylate 10 MG TABLET PO (12:28)
[2022-03-24] MEDS: Cholecalciferol (Vitamin D3) 25 MCG TABLET 50 MCG PO (12:28)
[2022-03-24] MEDS: Metoprolol Tartrate 25 MG TABLET PO ×2 (12:28→20:06)
[2022-03-24] MEDS: lisinopriL 5 MG TABLET PO (12:29)
[2022-03-24] MEDS: Gabapentin 600 MG TABLET PO ×2 (12:29→20:06)
[2022-03-24] MEDS: Cyanocobalamin (Vitamin B-12) 1,000 MCG TABLET 1000 MCG PO (12:29)
[2022-03-24] MEDS: Folic Acid 1 MG TABLET PO (12:29)
[2022-03-24] MEDS: Tamsulosin HCL 0.4 MG CAPSULE PO (12:29)
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
--- NOTE | 2022-03-24 17:55 | MHC.SLORD ---
Speech Language Pathology Order Status: Attempted to see patient at lunch, patient was sonambulent, unable to wake patient to sternal rub, repositioning, not appropriate for PO. Note: ASSISTANT MAINTENANCE MANAGER has made multiple attempts, patient has consistently been too lethargic for p.o. trials.
[2022-03-24] MEDS: Atorvastatin Calcium 40 MG TABLET PO (20:06)
[2022-03-24] MEDS: OLANZapine 10 MG TABLET PO (20:06)
[2022-03-25 03:56] VITALS: BP 139/78; PULSE 86; RESP 20; TEMP 36.4; O2SAT 93
[2022-03-25] MEDS: Omeprazole 40 MG CAPSULE.DR PO (05:54)
[2022-03-25 06:23] LABS: Hematocrit 44.2 % (42.0-52.0); Hemoglobin 13.9 g/dl (14.0-18.0); Mean Corpuscular HGB Conc 31.4 g/dl (31.0-36.0); Mean Corpuscular Hemoglobin 29.1 pg (27.0-33.0); Mean Corpuscular Volume 92.7 fL (80.0-98.0); Mean Platelet Volume 8.9 fL (9.4-12.4); Platelet Count 386 X10*3/uL (160-400); Red Blood Count 4.77 X10*6/uL (4.60-5.80); Red Cell Distribution Width 12.9 % (11.0-16.0); White Blood Count 17.7 X10*3/uL (4.8-10.8)
[2022-03-25 06:53] LABS: Anion Gap 19 (12-20); Blood Urea Nitrogen 64 mg/dL (9-16); Calcium 10.4 mg/dL (8.4-10.2); Carbon Dioxide 22 mmol/L (22-29); Chloride 111 mmol/L (96-108); Creatinine Clr Calc Pharmacy 31.7; Estimated Glomerular Filt Rate 29; Glucose Random 122 mg/dL (60-115); Potassium 4.7 mmol/L (3.3-5.1); Sodium 147 mmol/L (135-145)
[2022-03-25 07:53] VITALS: BP 124/76; PULSE 88; RESP 20; TEMP 36.1; O2SAT 93
[2022-03-25 08:38] LABS: Alanine Aminotransferase 56 U/L (0-40); Albumin Level 3.8 g/dL (3.5-5.0); Alkaline Phosphatase 115 U/L (39-117); Aspartate Amino Transferase 41 U/L (5-37); Bilirubin Direct 0.5 mg/dL (0.0-0.5); Bilirubin Total 0.8 mg/dL (0.0-1.0); Total Protein 8.4 g/dL (6.5-8.0)
[2022-03-25 09:01] LABS: Procalcitonin 0.12 ng/mL
[2022-03-25 10:16] LABS: Sodium 146 mmol/L (135-145)
[2022-03-25] MEDS: 0.9 % Sodium Chloride 1,000 ML 125 ML IVCONT ×2 (11:25→17:21)
[2022-03-25] MEDS: 0.9 % Sodium Chloride Flush 3 ML SYRINGE IVFLUSH (11:27)
[2022-03-25] MEDS: Metoprolol Tartrate 25 MG TABLET PO (11:27)
--- NOTE | 2022-03-25 11:36 | MHC.CM.PN ---
Per ROUNDS discussion, Patient is in renal failure and febrile and not yet medically cleared for dc. STR is the recommendation and CM will continue to follow.
[2022-03-25 11:38] VITALS: BP 111/64; PULSE 95; RESP 16; TEMP 36.1; O2SAT 93
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
[2022-03-25] MEDS: Ampicillin Sodium/Sulbactam Na 3 GM in 0.9 % Sodium Chloride 100 ML IV (13:32)
--- NOTE | 2022-03-25 14:58 | PC.NURSE ---
Pt very lethargic requiring sternal rub to only briefly awaken. MD informed of pt's status and that pt is unable to take PO meds. Pt did open eyes but did not follow commands or track. PERRLA +. Pt did wince and move all extremities to pain. informed of assessment, HCP contacted.
[2022-03-25 16:00] VITALS: BP 164/77; PULSE 82; RESP 17; TEMP 36.2; O2SAT 93
--- NOTE | 2022-03-25 16:22 | PM.EVENT ---
Event Note Date of Service: 03/25/22 Event Note: Phone discussion with pt's designated HCP Ashwin Aburto, who is his friend. Given advanced dementia and non-resolving encephalopathy, any attempt to resuscitate him would have extremely poor prognosis and may prolong the pt's suffering and as such, Mr Aburto believes that it is in the best interest of the patient to change his code status to DNR/DNI.
[2022-03-25 16:55] LABS: Adenovirus PCR Not Detected (Not Detect.); Bordetella parapertussis PCR Not Detected (Not Detect.); Bordetella pertussis PCR Not Detected (Not Detect.); Chlamydia pneumoniae PCR Not Detected (Not Detect.); Coronavirus 229E PCR Not Detected (Not Detect.); Coronavirus HKU1 PCR Not Detected (Not Detect.); Coronavirus NL63 PCR Not Detected (Not Detect.); Coronavirus OC43 PCR Not Detected (Not Detect.); Human metapneumovirus PCR Not Detected (Not Detect.); Influenza A PCR Not Detected (Not Detect.); Influenza B PCR Not Detected (Not Detect.); Mycoplasma pneumoniae PCR Not Detected (Not Detect.); Parainfluenza 1 PCR Not Detected (Not Detect.); Parainfluenza 2 PCR Not Detected (Not Detect.); Parainfluenza 3 PCR Not Detected (Not Detect.); Parainfluenza 4 PCR Not Detected (Not Detect.); RSV PCR Not Detected (Not Detect.); Rhino/Enterovirus PCR Not Detected (Not Detect.); SARS-CoV-2 PCR Not Detected (Not Detect.)
--- NOTE | 2022-03-25 16:55 | P.CNID_ITS ---
History of Present Illness Data of Consult Service Date: 03/25/22 Requesting physician: Tray Fuller Primary Care Provider: Unknown Physician HPI Reason for consult: seizures,?infection He presents with seizure and brought in after. He has alcohol use diorder and frequent seizures. He has bloody tap and WBC 17 on CBC. Review of Systems Review of Systems: Yes Unobtainable due to mental condition PMFSH Past Medical History Medical History Alcohol abuse Cardiomyopathy Cellulitis Dementia DVT (deep venous thrombosis) DVT of deep femoral vein GERD (gastroesophageal reflux disease) Hepatitis C antibody positive in blood Hypertension Seizure Family History Family History Father No problems noted. Mother No problems noted. Brother Cancer Sister No problems noted. Family history: reviewed and not pertinent Surgical History Surgical History No pertinent past surgical history Social History Social History Household Members: Unknown / Unable to assess Housing: Unknown / Unable to assess Unable to assess alcohol history related to: Unknown Alcohol intake: current Alcohol intake frequency: a few times a week Alcohol type: beer Patient Tobacco Use Status: Tobacco use Unknown Cigarettes Per Day: 7 Use of substances other than those prescribed or required for medical reasons: Unknown Substance Use Type: Unknown Currently Displaying Signs/Symptoms of Drug Intoxication Withdrawal: No Advance Directives: Yes Advance Directives on File: Yes Advance Directives Date on File: 10/11/20 Recently lost weight without trying: Unsure service: No Current occupational status: unemployed and disabled Meds Allergies Allergy/AdvReac Type Severity Reaction Status Date / Time No Known Allergies Allergy Verified 12/29/21 12:36 [No Known Allergies*] Active Medications: Current Medications Amlodipine Besylate (Amlodipine Besylate 10 Mg Tablet) 10 mg PO DAILY [facility]; Protocol Last Admin: 03/25/22 12:18 Dose: Not Given Apixaban (Apixaban 5 Mg Tablet) 5 mg PO BID [facility] Atorvastatin Calcium (Atorvastatin Calcium 40 Mg Tablet) 40 mg PO BEDTIME [facility] Last Admin: 03/24/22 20:06 Dose: 40 mg Cyanocobalamin (Cyanocobalamin (Vitamin B-12) 1,000 Mcg Tablet) 1,000 mcg PO DAILY [facility] Last Admin: 03/25/22 12:18 Dose: Not Given Docusate Sodium (Docusate Sodium 100 Mg Capsule) 100 mg PO DAILY PRN PRN Reason: Constipation Folic Acid (Folic Acid 1 Mg Tablet) 1 mg PO DAILY [facility] Last Admin: 03/25/22 12:18 Dose: Not Given Gabapentin (Gabapentin 600 Mg Tablet) 600 mg PO BID [facility] Last Admin: 03/25/22 11:43 Dose: Not Given Sodium Chloride (Ns) 1,000 mls @ 125 mls/hr IVCONT .Q8H [facility] Stop: 03/26/22 08:29 Last Admin: 03/25/22 11:25 Dose: 125 mls/hr Ampicillin Sodium/Sulbactam (Sodium 3 gm/ Sodium Chloride) 100 mls @ 200 mls/hr IV Q6H [facility] Last Infusion: 03/25/22 14:12 Dose: Infused Levetiracetam (Levetiracetam 500 Mg Tablet) 500 mg PO BID [facility] Last Admin: 03/25/22 12:18 Dose: Not Given Metoprolol Tartrate (Metoprolol Tartrate 25 Mg Tablet) 25 mg PO BID [facility]; Protocol Last Admin: 03/25/22 11:27 Dose: 25 mg Olanzapine (Olanzapine 10 Mg Tablet) 10 mg PO BEDTIME [facility] Last Admin: 03/24/22 20:06 Dose: 10 mg Olanzapine (Olanzapine 5 Mg Tablet) 5 mg PO BID PRN PRN Reason: agitation Last Admin: 03/20/22 09:43 Dose: 5 mg Omeprazole (Omeprazole 40 Mg Capsule.Dr) 40 mg PO DAILY@0630 [facility] Last Admin: 03/25/22 05:54 Dose: 40 mg Pharmacy Consult (Consult Rx Perform Med Rec) 1 each MISCELLANE ONCE PRN PRN Reason: Consult order Pharmacy Consult (Consult Rx Etoh Phenob Im/Po) 1 each MISCELLANE ONCE PRN; Protocol PRN Reason: Consult order Prednisone (Prednisone 10 Mg Tablet) 10 mg PO DAILY [facility] Last Admin: 03/25/22 12:18 Dose: Not Given Sodium Chloride (0.9 % Sodium Chloride Flush 3 Ml Syringe) 3 ml IVFLUSH QSHIFT [facility] Last Admin: 03/25/22 11:27 Dose: 3 ml Tamsulosin HCl (Tamsulosin Hcl 0.4 Mg Capsule) 0.4 mg PO DAILY [facility] Last Admin: 03/25/22 12:18 Dose: Not Given Thiamine HCl (Thiamine Hcl 100 Mg Tablet) 100 mg PO DAILY [facility] Last Admin: 03/25/22 12:18 Dose: Not Given Tiotropium [place] (Tiotropium [place] 18 Mcg Cap.W.Dev) 1 puff INHALE RDAILY [facility] Last Admin: 03/14/22 08:16 Dose: Not Given Vitamin D (Cholecalciferol (Vitamin D3) 25 Mcg Tablet) 50 mcg PO DAILY [facility] Last Admin: 03/25/22 12:18 Dose: Not Given Home Medications Medication Instructions Recorded Confirmed Last Taken Type atorvastatin 40 mg tablet 40 mg PO BEDTIME 04/01/20 03/03/22 Unknown History cholecalciferol (vitamin D3) 50 50 mcg PO DAILY 04/01/20 03/03/22 Unknown History mcg (2,000 unit) capsule gabapentin 600 mg tablet 600 mg PO BID 04/01/20 03/03/22 Unknown History metoprolol succinate 25 mg 25 mg PO DAILY 04/01/20 03/03/22 Unknown History tablet,extended release 24 hr phenytoin 50 mg chewable tablet 50 mg PO BID 04/01/20 03/03/22 Unknown History tamsulosin 0.4 mg capsule 0.4 mg PO DAILY 04/01/20 03/03/22 Unknown History umeclidinium 62.5 mcg/actuation 1 puff inhalation DAILY 09/26/20 03/03/22 Unknown History blister powder for inhalation (Incruse Ellipta) sertraline 25 mg tablet 1 tab PO DAILY 06/23/21 03/03/22 Unknown History olanzapine 20 mg tablet 1 tab PO BEDTIME 09/02/21 03/03/22 Unknown History apixaban 5 mg tablet (Eliquis) 5 mg PO BID 11/04/21 03/03/22 Unknown History cyanocobalamin (vitamin B-12) 1,000 mcg PO QAM 11/04/21 03/03/22 Unknown History 1,000 mcg tablet lisinopril 5 mg tablet 5 mg PO DAILY 11/04/21 03/03/22 Unknown History Physical Exam Vital Signs: Vital Signs: Last Vital Signs Temp 97.1 F 03/25/22 16:00 Pulse 82 03/25/22 16:00 Resp 17 03/25/22 16:00 BP 164/77 H 03/25/22 16:00 Pulse Ox 93 03/25/22 16:00 O2 Del Method 03/25/22 16:00 O2 Flow Rate 96 03/16/22 00:33 FiO2 94 03/14/22 20:00 BMI result Body Mass Index 25.8 Const: General: cooperative HEENT: Head: Yes normal to inspection Face and sinus: Yes normal facial exam Mouth: Normal oral and palatal mucosa present Teeth and gingiva: d entition normal Eyes: General: appearance normal, both eyes and all related structures Pupils: Equal, round and reactive pupils present Resp: Effort & Inspection: normal respiratory effort Cardio: Rate: regular rate Rhythm: regular rhythm GI: Palpation (GI): Soft to palpation and nontender : General: Yes no CVA tenderness Back/Spine/Pelvis: Back: no CVA tenderness Skin: General skin exam: no rashes or lesions noted Neuro: General: moves all extremities Cranial nerves: Yes Equal, round and reactive pupils present Extrem: General: Yes normal to inspection Psych: Appearance: disheveled Mental Status: other (confused,nonfocal) Results Labs CBC & Chem 7: 03/25/22 05:57 03/25/22 09:37 Labs: Short CBC 03/25/22 Range/Units 05:57 WBC 17.7 H (4.8-10.8) X10*3/uL Hgb 13.9 L (14.0-18.0) g/dl Hct 44.2 (42.0-52.0) % Plt Count 386 (160-400) X10*3/uL BMP 03/25/22 03/25/22 05:57 09:37 Sodium 147 H 146 H Potassium 4.7 Chloride 111 H Carbon Dioxide 22 BUN 64 H Creatinine 2.26 H Calcium 10.4 H Cardiac Enzymes 03/25/22 Range/Units 05:57 Total Creatine Kinase 397 H D (38-174) U/L Liver Function 03/25/22 Range/Units 05:57 Total Bilirubin 0.8 (0.0-1.0) mg/dL Direct Bilirubin 0.5 (0.0-0.5) mg/dL AST 41 H D (5-37) U/L ALT 56 H (0-40) U/L Alkaline Phosphatase 115 (39-117) U/L Albumin 3.8 (3.5-5.0) g/dL Microbiology Microbiology Results: Microbiology 03/23/22 14:30 Cerebrospinal Fluid Gram Stain - Final 03/23/22 14:30 Cerebrospinal Fluid CSF Examination - Final 03/23/22 14:30 Cerebrospinal Fluid Fluid Description - Final 03/23/22 14:30 Cerebrospinal Fluid CSF Culture - Preliminary Culture in progress. 03/03/22 10:37 Blood - Venous Blood Culture - Final No growth after 5 days. 03/03/22 10:37 Blood - Venous Blood Culture - Final No growth after 5 days. 03/03/22 Unknown Urine Catheterized - Straight Catheter Urine Culture - Final Aerococcus viridans Assessment and Plan (1) Encephalopathy: Status: Acute He has CSF meningitis/encephalitis panel negative. Likely seizure is due to recurrent alcohol use disorder. He has no urinary infection noted or pneumonia and no HSV encephalitis. (2) Seizure: Status: Acute
--- NOTE | 2022-03-25 16:55 | MHC.SLORD ---
Addendum entered and electronically signed by Alison Hunter MA, CCC-TELECOMMUNICATIONS ANALYST 03/26/22 13:29: D.S. Original Note: Speech Language Pathology Order Status: Pt checked in with RN who reported pt refused breakfast and was not able to take PO meds earlier today d/t lethargic state. Pt too lethargic to be given PO.
[2022-03-25 19:47] VITALS: BP 188/91; PULSE 108; RESP 17; TEMP 36.7; O2SAT 90
[2022-03-25 23:15] VITALS: BP 156/88; PULSE 119; RESP 18; TEMP 37.4; O2SAT 93
[2022-03-26] VITALS (11 sets, daily range): BP systolic 142–166; BP diastolic 66–92; PULSE 100–124; RESP 16–26; TEMP 36.2–38.8; O2SAT 92–98
[2022-03-26] MEDS: 0.9 % Sodium Chloride 1,000 ML 125 ML IVCONT (00:33)
[2022-03-26] MEDS: Acetaminophen Supp 650 MG SUPP.RECT PR ×3 (03:11→19:43)
[2022-03-26 03:25] LABS: Lactic Acid 1.4 mmol/L (0.5-2.0)
[2022-03-26 06:36] LABS: Hematocrit 46.8 % (42.0-52.0); Hemoglobin 14.7 g/dl (14.0-18.0); Mean Corpuscular HGB Conc 31.4 g/dl (31.0-36.0); Mean Corpuscular Hemoglobin 29.1 pg (27.0-33.0); Mean Corpuscular Volume 92.5 fL (80.0-98.0); Mean Platelet Volume 9.1 fL (9.4-12.4); Platelet Count 337 X10*3/uL (160-400); Red Blood Count 5.06 X10*6/uL (4.60-5.80); Red Cell Distribution Width 13.1 % (11.0-16.0); White Blood Count 18.5 X10*3/uL (4.8-10.8)
[2022-03-26 08:20] LABS: Anion Gap 17 (12-20); Blood Urea Nitrogen 53 mg/dL (9-16); Carbon Dioxide 21 mmol/L (22-29); Chloride 120 mmol/L (96-108); Creatinine Clr Calc Pharmacy 63.4; Estimated Glomerular Filt Rate > 60; Glucose Random 140 mg/dL (60-115); Potassium 4.8 mmol/L (3.3-5.1); Sodium 153 mmol/L (135-145)
[2022-03-26 09:19] LABS: ABG Base Excess -3.2 mmol/L; ABG HCO3 18 mmol/L (22-26); ABG pCO2 26 mmHg (32-45); ABG pH 7.45 (7.35-7.45); ABG pO2 66 mmHg (83-108)
[2022-03-26] MEDS: 0.9 % Sodium Chloride Flush 3 ML SYRINGE IVFLUSH ×2 (09:50→23:24)
[2022-03-26] MEDS: Piperacillin Sodium/Tazobactam 3.375 GM in 0.9 % Sodium Chloride 50 ML IV ×3 (10:01→21:13)
[2022-03-26] MEDS: Dextrose 5 % 1,000 ML 100 ML IVCONT ×2 (11:49→21:14)
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
[2022-03-26 14:05] LABS: Adenovirus PCR Not Detected (Not Detect.); Bordetella parapertussis PCR Not Detected (Not Detect.); Bordetella pertussis PCR Not Detected (Not Detect.); Chlamydia pneumoniae PCR Not Detected (Not Detect.); Coronavirus 229E PCR Not Detected (Not Detect.); Coronavirus HKU1 PCR Not Detected (Not Detect.); Coronavirus NL63 PCR Not Detected (Not Detect.); Coronavirus OC43 PCR Not Detected (Not Detect.); Influenza A PCR Not Detected (Not Detect.); Influenza B PCR Not Detected (Not Detect.); SARS-CoV-2 PCR Not Detected (Not Detect.)
[2022-03-26 14:06] LABS: Human metapneumovirus PCR Not Detected (Not Detect.); Mycoplasma pneumoniae PCR Not Detected (Not Detect.); Parainfluenza 1 PCR Not Detected (Not Detect.); Parainfluenza 2 PCR Not Detected (Not Detect.); Parainfluenza 3 PCR Not Detected (Not Detect.); Parainfluenza 4 PCR Not Detected (Not Detect.); RSV PCR Not Detected (Not Detect.); Rhino/Enterovirus PCR Not Detected (Not Detect.)
--- NOTE | 2022-03-26 15:07 | PC.NURSE ---
PATIENT REMAINS AROUSABLE WITH MOANING NOISE ONLY TO STERNAL RUB, UNABLE TO FOLLOW ANY COMMANDS. BECOMES RESISTANT TO CARE WHEN BATHING/REPOSITIONING PERFORMED. PA AWARE. NEW IV PLACED TO LEFT WRIST #20 - IVF RUNNING PATIENT INCONTINENT AND MULTIPLE ATTEMPT TO IGOR CATH TO STAY ON UNSUCCESSFUL - PS NOTIFIED AND ORDER FOR STRAIGHT CATH PLACED BLADDER SCANNED FOR 387 ML PRIOR TO STRAIGHT CATH TO OBTAIN URINE SAMPLES, STRAIGHT CATH FOR 300 ML DARK SUZIE, CLOUDY URINE WITH SEDIMENT NOTED. SAMPLES SENT TO LAB DRESSING CHANGED TO LEFT FOOT COMPLETED AT 1500: XEROFORM, GAUZE AND WRAPPED. BLUE BOOT APPLIED FOR EXTRA PROTECTION
[2022-03-26 15:23] LABS: Appearance Urine Turbid; Color Urine Dark Yellow; Glucose Urine UA Negative (Negative); Leukocyte Esterase Urine Large (3+) (Negative); Nitrite Urine Positive (Negative); PH 7.5 (5.0-9.0); UMIC TRIGGER UA YES; UMIC TRIGGER UACC YES; Urine Blood Large (3+) (Negative); Urine Ketones Trace mg/dL (Negative); Urine Protein 100 (2+) mg/dL (Neg-Trace)
[2022-03-26 15:50] LABS: Bacteria Urine 4+ (None Seen); Hyaline Casts Urine 0-2 /LPF (0-2); RBC Urine >20 /HPF (0-2); UACC Culture Trigger YES; WBC Urine >50 /HPF (0-5)
[2022-03-26 16:48] LABS: ABG Refer to POC result
[2022-03-26 17:35] LABS: Anion Gap 18 (12-20); Blood Urea Nitrogen 44 mg/dL (9-16); Calcium 9.5 mg/dL (8.4-10.2); Carbon Dioxide 18 mmol/L (22-29); Chloride 122 mmol/L (96-108); Creatinine Clr Calc Pharmacy 65.7; Estimated Glomerular Filt Rate > 60; Glucose Random 168 mg/dL (60-115); Sodium 153 mmol/L (135-145)
--- NOTE | 2022-03-26 18:21 | MHC.SL.SWA ---
Speech Pathologist Impression: Risk of Aspiration Due to: Neurological Condition Reduced Cognition Dysphasia Diet Status: NPO Liquid Consistency and Strategies for Safe Swallow: Liquid Intake Recommendation: NPO Liquid Intake Strategies: Small Sips No Straws Liquids by Teaspoon Only Solid Food Consistency: Dietary Recommendations: NPO Additional Modifications to Solid Foods: Oral Medication Intake: NPO Please contact the pharmacy regarding appropriate crushable or liquid drug formulations that are available whenever modified delivery is recommended. Compensatory Strategies and Precautions to be Taken for Safe Swallow: Supervision While Eating and Drinking for Safe Swallow: Foods to Avoid: Swallowing Recommended Treatments: Compens. Strategy Educat. Recommendation for Speech: Inpatient Speech Therapy Comment: Pt was seen this a.m. for swallow re-assessment and treatment. PETROLOGIST has attempted to see pt over an extended period without success as patient has been persistently lethargic, difficult to wake, inappropriate for PO trials. Today, patient was awake, sitting up in bed, appeared to have been attempting to pull at IV, had some fluid leaking from IV. Patient had eyes open, but appeared vacant, made no purposeful eye contact during session. Patient did not respond verbally, and did respond to directions or questions at any time during session (attempts at communication were in Dive[place]). Pt initially given moistened oral swab, with patient lingually responding to the swab by movement and some pressure against it. Trace amount of water in mouth did not appear to prompt initiate swallow. Pt given trace amount of water by tsp, with most of water escaping anteriorly, no initiation of lingual movement or swallow. Pt given trace amount of puree, with no initiating of lingual movement or swallow noted, puree needed to be swabbed from mouth. All behavior noted is significant decline from previous baseline, patient presents as inappropriate for PO, at high risk for aspiration. Recommend NPO, , RD notified by secure text, nursing advised in person. PETROLOGIST will continue to monitor for responsiveness, per nursing, medical team/HCP likely moving to comfort measures for this patient. Date Range for Service Req: Timeline to reassess: Abrasive Grader Helper Clinican/Clinical Fellow: No Supervisory Statement: I have reviewed and agree with the student/clinical fellow's documentation: N/A Speech Language Pathologist: Ranjana Byrnes M.A., CCC-PETROLOGIST
[2022-03-26 20:24] LABS: Creatinine Urine 97.26 mg/dL
[2022-03-26] MEDS: levETIRAcetam in NaCl (iso-os) 500 MG/100 ML PIGGYBACK 400 MG IV (20:42)
[2022-03-27] MEDS: Piperacillin Sodium/Tazobactam 3.375 GM in 0.9 % Sodium Chloride 50 ML IV ×4 (03:07→21:07)
[2022-03-27 03:21] VITALS: BP 164/82; PULSE 99; RESP 16; TEMP 36.2; O2SAT 94
[2022-03-27 07:20] VITALS: BP 160/80; PULSE 85; RESP 16; TEMP 36.4; O2SAT 97
[2022-03-27 07:24] LABS: Hematocrit 44.1 % (42.0-52.0); Hemoglobin 13.7 g/dl (14.0-18.0); Mean Corpuscular HGB Conc 31.1 g/dl (31.0-36.0); Mean Corpuscular Volume 93.2 fL (80.0-98.0); Mean Platelet Volume 9.4 fL (9.4-12.4); Platelet Count 272 X10*3/uL (160-400); Red Blood Count 4.73 X10*6/uL (4.60-5.80); Red Cell Distribution Width 13.2 % (11.0-16.0); White Blood Count 20.9 X10*3/uL (4.8-10.8)
[2022-03-27 08:35] LABS: Anion Gap 13 (12-20); Blood Urea Nitrogen 33 mg/dL (9-16); Calcium 9.4 mg/dL (8.4-10.2); Carbon Dioxide 23 mmol/L (22-29); Chloride 118 mmol/L (96-108); Creatinine Clr Calc Pharmacy 64.5; Estimated Glomerular Filt Rate > 60; Glucose Random 152 mg/dL (60-115); Potassium 3.7 mmol/L (3.3-5.1); Sodium 150 mmol/L (135-145)
[2022-03-27] MEDS: 0.9 % Sodium Chloride Flush 3 ML SYRINGE IVFLUSH ×3 (09:33→20:09)
[2022-03-27] MEDS: Dextrose 5 % 1,000 ML 100 ML IVCONT ×2 (09:33→19:20)
[2022-03-27] MEDS: levETIRAcetam in NaCl (iso-os) 500 MG/100 ML PIGGYBACK 400 MG IV ×2 (09:39→20:09)
[2022-03-27 11:25] VITALS: BP 152/75; PULSE 74; RESP 16; TEMP 36.6; O2SAT 98
--- NOTE | 2022-03-27 11:27 | MHC.CM.PN ---
Per ROUNDS discussion, Patient is not doing well (IV Keppra, IV Zosyn); LTC is the recommendation and CM will continue to follow.
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
[2022-03-27 12:46] LABS: Partial Thromboplastin Time 30.1 SEC (26.0-36.4)
[2022-03-27 13:31] LABS: Magnesium 2.4 mg/dL (1.6-2.6)
[2022-03-27 13:36] LABS: Vitamin B1 28 nmol/L (8-30)
[2022-03-27] MEDS: Enoxaparin Sodium 80 MG/0.8 ML SYRINGE SUBCUT (13:38)
[2022-03-27] MEDS: Metoprolol Tartrate 5 MG/5 ML VIAL 2.5 MG IVPUSH ×2 (13:38→20:09)
[2022-03-27] MEDS: Magnesium Sulfate/H2O 2 GM/50 ML PIGGYBACK IV (13:39)
[2022-03-27 16:00] VITALS: BP 162/76; PULSE 89; RESP 16; TEMP 36.8; O2SAT 90
--- NOTE | 2022-03-27 16:07 | MHC.SLORD ---
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 Pt did not wake to verbal stimuli, sternal rub, and change in position. Not appropriate for dysphagia treatment at this time d/t lethargic state.
[2022-03-27 19:31] VITALS: BP 168/80; PULSE 89; RESP 17; TEMP 36.8; O2SAT 92
[2022-03-27 23:46] VITALS: BP 174/64; PULSE 90; RESP 20; TEMP 36.5; O2SAT 98
[2022-03-28] MEDS: Enoxaparin Sodium 80 MG/0.8 ML SYRINGE SUBCUT ×2 (01:32→12:27)
[2022-03-28] MEDS: Magnesium Sulfate/H2O 2 GM/50 ML PIGGYBACK IV (01:32)
[2022-03-28] MEDS: Metoprolol Tartrate 5 MG/5 ML VIAL 2.5 MG IVPUSH ×4 (01:33→18:49)
[2022-03-28] MEDS: Potassium Chloride/H20 10 MEQ/100 ML PIGGYBACK 100 MEQ IV ×4 (02:59→06:40)
[2022-03-28] MEDS: Piperacillin Sodium/Tazobactam 3.375 GM in 0.9 % Sodium Chloride 50 ML IV ×2 (03:14→08:26)
[2022-03-28 04:00] VITALS: BP 171/83; PULSE 100; RESP 37; TEMP 36.7; O2SAT 92
[2022-03-28] MEDS: Morphine Sulfate 2 MG/ML CARTRIDGE IVPUSH (04:19)
[2022-03-28] MEDS: Dextrose 5 % 1,000 ML 100 ML IVCONT (04:21)
[2022-03-28 07:54] VITALS: BP 155/80; PULSE 89; RESP 18; TEMP 37.3; O2SAT 94
[2022-03-28] MEDS: levETIRAcetam in NaCl (iso-os) 500 MG/100 ML PIGGYBACK 400 MG IV ×2 (08:31→21:43)
[2022-03-28] MEDS: 0.9 % Sodium Chloride Flush 3 ML SYRINGE IVFLUSH ×3 (09:08→21:44)
[2022-03-28 09:20] LABS: Hematocrit 42.6 % (42.0-52.0); Hemoglobin 13.1 g/dl (14.0-18.0); Mean Corpuscular HGB Conc 30.8 g/dl (31.0-36.0); Mean Corpuscular Volume 94.2 fL (80.0-98.0); Mean Platelet Volume 10.6 fL (9.4-12.4); Platelet Count 211 X10*3/uL (160-400); Red Blood Count 4.52 X10*6/uL (4.60-5.80); Red Cell Distribution Width 13.4 % (11.0-16.0); White Blood Count 19.2 X10*3/uL (4.8-10.8)
[2022-03-28 11:23] LABS: Anion Gap 14 (12-20); Blood Urea Nitrogen 26 mg/dL (9-16); Calcium 8.3 mg/dL (8.4-10.2); Carbon Dioxide 19 mmol/L (22-29); Chloride 118 mmol/L (96-108); Creatinine Clr Calc Pharmacy 83.3; Estimated Glomerular Filt Rate > 60; Glucose Random 134 mg/dL (60-115); Sodium 147 mmol/L (135-145)
[2022-03-28 11:37] VITALS: BP 159/80; PULSE 85; RESP 20; TEMP 38.4; O2SAT 92
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
[2022-03-28] MEDS: Acetaminophen Supp 650 MG SUPP.RECT PR (12:26)
[2022-03-28] MEDS: Ertapenem Sodium 1 GM in 0.9 % Sodium Chloride 50 ML IV (12:49)
[2022-03-28 15:00] VITALS: O2SAT 92
[2022-03-28 15:59] VITALS: BP 130/66; PULSE 83; RESP 24; TEMP 37.1; O2SAT 92
[2022-03-28 20:00] VITALS: BP 152/69; PULSE 79; RESP 20; TEMP 36.6; O2SAT 95
[2022-03-29] VITALS (12 sets, daily range): BP systolic 138–160; BP diastolic 71–81; PULSE 71–99; RESP 17–32; TEMP 37.1–38.6; O2SAT 90–98
[2022-03-29] MEDS: Metoprolol Tartrate 5 MG/5 ML VIAL 2.5 MG IVPUSH ×5 (01:59→23:21)
[2022-03-29] MEDS: Enoxaparin Sodium 80 MG/0.8 ML SYRINGE SUBCUT ×3 (01:59→23:21)
--- NOTE | 2022-03-29 05:48 | PM.EVENT ---
Event Note Date of Service: 03/29/22 Event Note: Tachypneic. Checked at rectal time found to be febrile. Will treat with Tylenol, will obtain repeat blood cultures, lactic acid
[2022-03-29] MEDS: Acetaminophen Supp 650 MG SUPP.RECT PR (05:54)
[2022-03-29] MEDS: metroNIDAZOLE/NS 500 MG/100 ML PIGGYBACK 100 MG IV ×3 (05:54→20:56)
[2022-03-29 06:55] LABS: Lactic Acid 1.1 mmol/L (0.5-2.0)
[2022-03-29] MEDS: levoFLOXacin/D5W 750 MG/150 ML PIGGYBACK 100 MG IV (06:57)
[2022-03-29 07:41] LABS: Hematocrit 39.5 % (42.0-52.0); Hemoglobin 12.5 g/dl (14.0-18.0); Mean Corpuscular HGB Conc 31.6 g/dl (31.0-36.0); Mean Corpuscular Hemoglobin 29.1 pg (27.0-33.0); Mean Corpuscular Volume 92.1 fL (80.0-98.0); Mean Platelet Volume 10.5 fL (9.4-12.4); Platelet Count 239 X10*3/uL (160-400); Red Blood Count 4.29 X10*6/uL (4.60-5.80); Red Cell Distribution Width 13.5 % (11.0-16.0); White Blood Count 19.2 X10*3/uL (4.8-10.8)
[2022-03-29 08:04] LABS: Anion Gap 16 (12-20); Blood Urea Nitrogen 30 mg/dL (9-16); Calcium 8.5 mg/dL (8.4-10.2); Carbon Dioxide 18 mmol/L (22-29); Chloride 120 mmol/L (96-108); Estimated Glomerular Filt Rate > 60; Glucose Random 90 mg/dL (60-115); Potassium 4.2 mmol/L (3.3-5.1); Sodium 150 mmol/L (135-145)
[2022-03-29] MEDS: 0.9 % Sodium Chloride Flush 3 ML SYRINGE IVFLUSH ×3 (08:12→23:22)
[2022-03-29] MEDS: levETIRAcetam in NaCl (iso-os) 500 MG/100 ML PIGGYBACK 400 MG IV ×2 (08:12→20:44)
[2022-03-29] MEDS: Morphine Sulfate 2 MG/ML CARTRIDGE IVPUSH ×2 (08:51→18:55)
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
[2022-03-29] MEDS: Dextrose 5 % 1,000 ML 100 ML IVCONT ×2 (10:05→20:44)
--- NOTE | 2022-03-29 11:47 | PHA.PROG ---
Admission Date/Time: March 03, 2022 14:50 Indication: OTHER Weight in k.379 kg Adjusted body weight in [place] body weight in K.7 Obesity Dosing Indication % IBW: Serum Creatinine - Last 168 Hours 03/23/22 03/25/22 03/26/22 08:54 05:57 06:24 Creatinine 0.85 2.26 H 1.13 03/26/22 03/27/22 03/28/22 16:59 06:54 10:40 Creatinine 1.09 1.11 0.86 03/29/22 06:33 Creatinine 0.77 Estimated CrCl and GFR - Last 168 Hours 03/23/22 03/25/22 03/26/22 08:54 05:57 06:24 Estim Creat Clear Calc 84.3 31.7 63.4 Estimated GFR > 60 29 > 60 03/26/22 03/27/22 03/28/22 16:59 06:54 10:40 Estim Creat Clear Calc 65.7 64.5 83.3 Estimated GFR > 60 > 60 > 60 03/29/22 06:33 Estim Creat Clear Calc 93.0 Estimated GFR > 60 Vancomycin Loading Dose: 1999 Current Vancomycin Dosing Regimen: 750 Q12H Vancomycin Monitoring using AUC goal of 400 - 600 range with trough as surrogate marker: 456 Date and Time for next Vancomycin Level to be drawn: 03/30/221999 Pharmacist Comments on Vancomycin Plan: Vancomycin dosing will take advantage of [employer] as a clinical decision support tool that uses Bayesian modeling to calculate individual patient's pharmacokinetic parameters and forecast the patient's drug concentration time course with the target goal AUC 24 range of 400 - 600 mg/L/hr.
[2022-03-29] MEDS: vancomycin HCL 750 MG in 0.9 % Sodium Chloride 250 ML 166.67 MG IV (23:21)
[2022-03-30 03:27] VITALS: BP 164/74; PULSE 84; RESP 15; TEMP 36.3; O2SAT 96
[2022-03-30] MEDS: levoFLOXacin/D5W 750 MG/150 ML PIGGYBACK 100 MG IV (05:06)
[2022-03-30] MEDS: metroNIDAZOLE/NS 500 MG/100 ML PIGGYBACK 100 MG IV ×3 (05:07→22:46)
[2022-03-30 07:47] VITALS: BP 150/82; PULSE 85; RESP 15; TEMP 36.7; O2SAT 94
[2022-03-30] MEDS: Dextrose 5 % 1,000 ML 100 ML IVCONT ×2 (08:00→21:23)
[2022-03-30] MEDS: 0.9 % Sodium Chloride Flush 3 ML SYRINGE IVFLUSH ×2 (08:01→16:48)
[2022-03-30] MEDS: Metoprolol Tartrate 5 MG/5 ML VIAL 2.5 MG IVPUSH ×3 (08:03→16:47)
[2022-03-30 10:42] LABS: Hematocrit 37.9 % (42.0-52.0); Hemoglobin 11.9 g/dl (14.0-18.0); Mean Corpuscular HGB Conc 31.4 g/dl (31.0-36.0); Mean Corpuscular Hemoglobin 29.5 pg (27.0-33.0); Mean Corpuscular Volume 93.8 fL (80.0-98.0); Mean Platelet Volume 10.5 fL (9.4-12.4); Platelet Count 232 X10*3/uL (160-400); Red Blood Count 4.04 X10*6/uL (4.60-5.80); Red Cell Distribution Width 13.6 % (11.0-16.0); White Blood Count 18.4 X10*3/uL (4.8-10.8)
[2022-03-30 11:07] VITALS: BP 145/78; PULSE 78; RESP 15; TEMP 36.7; O2SAT 94
[2022-03-30] MEDS: levETIRAcetam in NaCl (iso-os) 500 MG/100 ML PIGGYBACK 400 MG IV ×2 (11:24→21:23)
[2022-03-30 11:30] LABS: Anion Gap 16 (12-20); Blood Urea Nitrogen 16 mg/dL (9-16); Calcium 8.1 mg/dL (8.4-10.2); Carbon Dioxide 21 mmol/L (22-29); Chloride 117 mmol/L (96-108); Creatinine Clr Calc Pharmacy 100.9; Estimated Glomerular Filt Rate > 60; Glucose Random 94 mg/dL (60-115); Potassium 3.8 mmol/L (3.3-5.1); Sodium 150 mmol/L (135-145)
[2022-03-30] MEDS: vancomycin HCL 750 MG in 0.9 % Sodium Chloride 250 ML 166.67 MG IV (11:38)
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
--- NOTE | 2022-03-30 13:00 | P.CONWO_ITS ---
History of Present Illness Data of Consult Service Date: 03/30/22 Requesting physician: Danyell Liang Primary Care Provider: Unknown Physician HPI Reason for consult: left foot wound Asked to follow up on this dorsal left foot wound which was seen on 03/16 - at which time silver alginate was recommended as the primary dressing - not sure why there is xeroform on the wound - in turn there is odor and maceration Review of Systems Review of Systems: Yes Unobtainable due to mental condition [facility] Medical History Alcohol abuse Cardiomyopathy Cellulitis Dementia DVT (deep venous thrombosis) DVT of deep femoral vein GERD (gastroesophageal reflux disease) Hepatitis C antibody positive in blood Hypertension Seizure Family History Father No problems noted. Mother No problems noted. Brother Cancer Sister No problems noted. Surgical History No pertinent past surgical history Social History Household Members: Unknown / Unable to assess Housing: Unknown / Unable to assess Unable to assess alcohol history related to: Unknown Alcohol intake: current Alcohol intake frequency: a few times a week Alcohol type: beer Patient Tobacco Use Status: Tobacco use Unknown Cigarettes Per Day: 7 Use of substances other than those prescribed or required for medical reasons: Unknown Substance Use Type: Unknown Currently Displaying Signs/Symptoms of Drug Intoxication Withdrawal: No Advance Directives: Yes Advance Directives on File: Yes Advance Directives Date on File: 10/11/20 Recently lost weight without trying: Unsure service: No Current occupational status: unemployed and disabled Meds Allergies Allergy/AdvReac Type Severity Reaction Status Date / Time No Known Allergies Allergy Verified 12/29/21 12:36 [No Known Allergies*] Active Medications: Current Medications Acetaminophen (Acetaminophen Supp 650 Mg Supp.Rect) 650 mg SC Q6H PRN PRN Reason: fever Last Admin: 03/29/22 05:54 Dose: 650 mg Amlodipine Besylate (Amlodipine Besylate 10 Mg Tablet) 10 mg PO DAILY [facility]; Protocol Last Admin: 03/30/22 08:39 Dose: Not Given Atorvastatin Calcium (Atorvastatin Calcium 40 Mg Tablet) 40 mg PO BEDTIME [facility] Last Admin: 03/29/22 19:34 Dose: Not Given Cyanocobalamin (Cyanocobalamin (Vitamin B-12) 1,000 Mcg Tablet) 1,000 mcg PO DAILY [facility] Last Admin: 03/30/22 08:39 Dose: Not Given Docusate Sodium (Docusate Sodium 100 Mg Capsule) 100 mg PO DAILY PRN PRN Reason: Constipation Enoxaparin Sodium (Enoxaparin Sodium 80 Mg/0.8 Ml Syringe) 80 mg 1 mg/kg (80 mg) SUBCUT Q12H [facility] Last Admin: 03/30/22 12:51 Dose: Not Given Folic Acid (Folic Acid 1 Mg Tablet) 1 mg PO DAILY [facility] Last Admin: 03/30/22 08:39 Dose: Not Given Gabapentin (Gabapentin 600 Mg Tablet) 600 mg PO BID [facility] Last Admin: 03/30/22 08:39 Dose: Not Given Levetiracetam (Keppra) 500 mg in 100 mls @ 400 mls/hr IV BID [facility] Last Infusion: 03/30/22 12:19 Dose: Infused Levofloxacin (Levaquin) 750 mg in 150 mls @ 100 mls/hr IV Q24H [facility] Last Infusion: 03/30/22 08:40 Dose: Infused Metronidazole (Flagyl) 500 mg in 100 mls @ 100 mls/hr IV Q8H [facility] Last Infusion: 03/30/22 06:28 Dose: Infused Dextrose (D5w) 1,000 mls @ 100 mls/hr IVCONT .Q10H [facility] Last Admin: 03/30/22 08:00 Dose: 100 mls/hr Vancomycin HCl 750 mg/ Sodium (Chloride) 265 mls @ 166.667 mls/hr IV Q12H [facility] Last Admin: 03/30/22 11:38 Dose: 166.67 mls/hr Metoprolol Tartrate (Metoprolol Tartrate 5 Mg/5 Ml Vial) 2.5 mg IVPUSH Q6H [facility] Last Admin: 03/30/22 08:03 Dose: 2.5 mg Olanzapine (Olanzapine 10 Mg Tablet) 10 mg PO BEDTIME [facility] Last Admin: 03/29/22 19:34 Dose: Not Given Olanzapine (Olanzapine 5 Mg Tablet) 5 mg PO BID PRN PRN Reason: agitation Last Admin: 03/20/22 09:43 Dose: 5 mg Omeprazole (Omeprazole 40 Mg Capsule.Dr) 40 mg PO DAILY@0630 [facility] Last Admin: 03/29/22 22:18 Dose: Not Given Pharmacy Consult (Consult Rx Perform Med Rec) 1 each MISCELLANE ONCE PRN PRN Reason: Consult order Pharmacy Consult (Consult Rx Etoh Phenob Im/Po) 1 each MISCELLANE ONCE PRN; Protocol PRN Reason: Consult order Pharmacy Consult (Consult Rx Vancomycin Dosing) 1 each MISCELLANE DAILY PRN PRN Reason: Consult order Prednisone (Prednisone 5 Mg Tablet) 5 mg PO DAILY [facility] Last Admin: 03/30/22 08:40 Dose: Not Given Sodium Chloride (0.9 % Sodium Chloride Flush 3 Ml Syringe) 3 ml IVFLUSH QSHIFT [facility] Last Admin: 03/30/22 08:01 Dose: 3 ml Tamsulosin HCl (Tamsulosin Hcl 0.4 Mg Capsule) 0.4 mg PO DAILY [facility] Last Admin: 03/30/22 08:40 Dose: Not Given Thiamine HCl (Thiamine Hcl 100 Mg Tablet) 100 mg PO DAILY [facility] Last Admin: 03/30/22 08:40 Dose: Not Given Tiotropium [place] (Tiotropium [place] 18 Mcg Cap.W.Dev) 1 puff INHALE RDAILY [facility] Last Admin: 03/14/22 08:16 Dose: Not Given Vitamin D (Cholecalciferol (Vitamin D3) 25 Mcg Tablet) 50 mcg PO DAILY [facility] Last Admin: 03/30/22 08:39 Dose: Not Given Home Medications Medication Instructions Recorded Confirmed Last Taken Type atorvastatin 40 mg tablet 40 mg PO BEDTIME 04/01/20 03/03/22 Unknown History cholecalciferol (vitamin D3) 50 50 mcg PO DAILY 04/01/20 03/03/22 Unknown History mcg (2,000 unit) capsule gabapentin 600 mg tablet 600 mg PO BID 04/01/20 03/03/22 Unknown History metoprolol succinate 25 mg 25 mg PO DAILY 04/01/20 03/03/22 Unknown History tablet,extended release 24 hr phenytoin 50 mg chewable tablet 50 mg PO BID 04/01/20 03/03/22 Unknown History tamsulosin 0.4 mg capsule 0.4 mg PO DAILY 04/01/20 03/03/22 Unknown History umeclidinium 62.5 mcg/actuation 1 puff inhalation DAILY 09/26/20 03/03/22 Unknown History blister powder for inhalation (Incruse Ellipta) sertraline 25 mg tablet 1 tab PO DAILY 06/23/21 03/03/22 Unknown History olanzapine 20 mg tablet 1 tab PO BEDTIME 09/02/21 03/03/22 Unknown History apixaban 5 mg tablet (Eliquis) 5 mg PO BID 11/04/21 03/03/22 Unknown History cyanocobalamin (vitamin B-12) 1,000 mcg PO QAM 11/04/21 03/03/22 Unknown History 1,000 mcg tablet lisinopril 5 mg tablet 5 mg PO DAILY 11/04/21 03/03/22 Unknown History Physical Exam Vital Signs and Narrative: Vital Signs: Last Vital Signs Temp 98.0 F 03/30/22 11:07 Pulse 78 03/30/22 11:07 Resp 15 03/30/22 11:07 BP 145/78 H 03/30/22 11:07 Pulse Ox 94 03/30/22 11:07 O2 Del Method 03/30/22 11:07 O2 Flow Rate 96 03/16/22 00:33 FiO2 94 03/14/22 20:00 BMI result Body Mass Index 25.8 wet sticky xerform is lifted to reveal macerated dark maroon colored ulcer that is not granulating, no redness, edema, streaking or warmth Results Labs CBC and Chem 7: 03/30/22 10:33 03/30/22 10:33 Labs: Laboratory Results - last 24 hr 03/30/22 03/30/22 03/30/22 10:33 10:33 10:33 MCV 93.8 MCH 29.5 MCHC 31.4 RDW 13.6 Plt Count 232 MPV 10.5 Absolute Nucleated RBC 0.000 Nucleated RBC % (auto) 0.0 Anion Gap Cancelled 16 Estim Creat Clear Calc Cancelled 100.9 Estimated GFR Cancelled > 60 Random Glucose Cancelled 94 Calcium Cancelled 8.1 L Assessment and Plan (1) Non-pressure chronic ulcer of other part of left foot with fat layer exposed: Status: Acute Plan 66 year old male with odorous dorsal left foot wound for which previous wound care recommendations are not being followed - suggest silver alginate cut to fit, change q 48 hours -
--- NOTE | 2022-03-30 13:56 | MHC.CM.PN ---
LTC is the recommendation and a BROAD SNF search is ongoing; CM will continue to follow.
--- NOTE | 2022-03-30 14:20 | PC.NURSE ---
Patient down to CT at this time via bed and transportation dispatch manager.
--- NOTE | 2022-03-30 14:49 | PC.NURSE ---
Patient back on floor at this time
[2022-03-30 14:59] LABS: OBS Int Ctl Valid YES; OBS1 POSITIVE (NEGATIVE)
--- NOTE | 2022-03-30 15:02 | MHC.CM.PN ---
Per ESCROW REPRESENTATIVE,Patient not medically cleared for dc today. [facility] has accepted Patient for LTC under his [facility]. CM will follow.
--- NOTE | 2022-03-30 15:32 | MHC.SLORD ---
Speech Language Pathology Order Status: Pt not appropriate for PO trials this afternoon d/t lethargic state. Per hospitalist, pt is not responding to verbal or painful stimuli.
[2022-03-30 15:43] VITALS: BP 168/60; PULSE 86; RESP 16; TEMP 35.8; O2SAT 95
--- NOTE | 2022-03-30 16:05 | MHC.CM.PN ---
Patient HAS been medically cleared for dc to LTC/SNF today. CM called and spoke with Patient's HCP/Ashwin Aburto @ [phone] (Patient has Dementia) regarding dc planning, explaining that [facility] (first choice SNF)is not able to offer a bed at this time, and that [facility] is offering a LTC bed under Patient's [employer] [facility]. Ashwin expressed that [place] is too far away for him to visit Patient and he has elected to appeal the dc. IMM addressed with Ashwin over the phone @ [phone] and original will be mailed certified letter to Ashwin and a copy has been placed in the chart. CM has verbally provided Ashwin with [employer]'s phone number and instructions on the appeal. CM Administration & [employer] S[employer]ET[employer] MANAGER/Starr has been notified of appeal. CM will follow.
[2022-03-30 20:00] VITALS: BP 157/75; PULSE 91; RESP 32; TEMP 36.5; O2SAT 94
[2022-03-30 20:37] VITALS: RESP 24
[2022-03-30 22:13] LABS: Vancomycin Trough 9.5 mcg/mL (10.0-20.0)
--- NOTE | 2022-03-30 22:19 | HE.PHANOTE ---
RE: vanco Trough on 03/30 came back at 9.5; put in new dose of 1000mg Q12H with predicted AUC 477mg/L; next level to be drawn 04/01 @0900
[2022-03-30] MEDS: vancomycin HCL 1,000 MG in 0.9 % Sodium Chloride 250 ML 270 MG IV (22:46)
[2022-03-31] VITALS (7 sets, daily range): BP systolic 136–153; BP diastolic 68–98; PULSE 84–92; RESP 15–34; TEMP 36–37.1; O2SAT 91–99
[2022-03-31] MEDS: 0.9 % Sodium Chloride Flush 3 ML SYRINGE IVFLUSH ×4 (00:59→23:56)
[2022-03-31] MEDS: Enoxaparin Sodium 80 MG/0.8 ML SYRINGE SUBCUT ×2 (00:59→13:59)
[2022-03-31] MEDS: Metoprolol Tartrate 5 MG/5 ML VIAL 2.5 MG IVPUSH ×4 (01:01→20:30)
[2022-03-31] MEDS: metroNIDAZOLE/NS 500 MG/100 ML PIGGYBACK 100 MG IV ×3 (05:59→21:01)
[2022-03-31] MEDS: levoFLOXacin/D5W 750 MG/150 ML PIGGYBACK 100 MG IV (06:09)
[2022-03-31 07:22] LABS: Creatinine Clr Calc Pharmacy 100.9; Estimated Glomerular Filt Rate > 60
--- NOTE | 2022-03-31 08:13 | HE.PHANOTE ---
Vancomycin Dosing Addendum Patient's renal function seems to be stable. Continue 1000 mg Q12H. Level to be done 04/01 @0900. Predicted 479 mg/L/hr
--- NOTE | 2022-03-31 09:07 | P.CNNE_ITS ---
History of Present Illness Data of Consult Service Date: 03/31/22 Primary Care Provider: Unknown Physician HPI Reason for consult: Encephalopathy 66 years old man with history of alcohol abuse in hospital for a while I was asked to see again to comment upon the reasons of his mental status decline. He was unable to provide any history. There was no witnessing of any recent seizure Review of Systems Review of Systems: Could not be done with [facility] Past Medical History Medical History Alcohol abuse Cardiomyopathy Cellulitis Dementia DVT (deep venous thrombosis) DVT of deep femoral vein GERD (gastroesophageal reflux disease) Hepatitis C antibody positive in blood Hypertension Seizure Family History Family History Father No problems noted. Mother No problems noted. Brother Cancer Sister No problems noted. Family history: reviewed and not pertinent Surgical History Surgical History No pertinent past surgical history Social History Social History Household Members: Unknown / Unable to assess Housing: Unknown / Unable to assess Unable to assess alcohol history related to: Unknown Alcohol intake: current Alcohol intake frequency: a few times a week Alcohol type: beer Patient Tobacco Use Status: Tobacco use Unknown Cigarettes Per Day: 7 Use of substances other than those prescribed or required for medical reasons: Unknown Substance Use Type: Unknown Currently Displaying Signs/Symptoms of Drug Intoxication Withdrawal: No Advance Directives: Yes Advance Directives on File: Yes Advance Directives Date on File: 10/11/20 Recently lost weight without trying: Unsure service: No Current occupational status: unemployed and disabled Meds Allergies Allergy/AdvReac Type Severity Reaction Status Date / Time No Known Allergies Allergy Verified 12/29/21 12:36 [No Known Allergies*] Active Medications: Current Medications Acetaminophen (Acetaminophen Supp 650 Mg Supp.Rect) 650 mg ND Q6H PRN PRN Reason: fever Last Admin: 03/29/22 05:54 Dose: 650 mg Amlodipine Besylate (Amlodipine Besylate 10 Mg Tablet) 10 mg PO DAILY [facility]; Protocol Last Admin: 03/31/22 07:30 Dose: Not Given Atorvastatin Calcium (Atorvastatin Calcium 40 Mg Tablet) 40 mg PO BEDTIME [facility] Last Admin: 03/30/22 19:46 Dose: Not Given Cyanocobalamin (Cyanocobalamin (Vitamin B-12) 1,000 Mcg Tablet) 1,000 mcg PO DAILY [facility] Last Admin: 03/31/22 07:31 Dose: Not Given Docusate Sodium (Docusate Sodium 100 Mg Capsule) 100 mg PO DAILY PRN PRN Reason: Constipation Enoxaparin Sodium (Enoxaparin Sodium 80 Mg/0.8 Ml Syringe) 80 mg 1 mg/kg (80 mg ) SUBCUT Q12H [facility] Last Admin: 03/31/22 00:59 Dose: 80 mg Folic Acid (Folic Acid 1 Mg Tablet) 1 mg PO DAILY [facility] Last Admin: 03/30/22 08:39 Dose: Not Given Gabapentin (Gabapentin 600 Mg Tablet) 600 mg PO BID [facility] Last Admin: 03/30/22 19:47 Dose: Not Given Levetiracetam (Keppra) 500 mg in 100 mls @ 400 mls/hr IV BID [facility] Last Infusion: 03/30/22 22:47 Dose: Infused Levofloxacin (Levaquin) 750 mg in 150 mls @ 100 mls/hr IV Q24H [facility] Last Infusion: 03/31/22 07:54 Dose: Infused Metronidazole (Flagyl) 500 mg in 100 mls @ 100 mls/hr IV Q8H [facility] Last Infusion: 03/31/22 07:33 Dose: Infused Dextrose (D5w) 1,000 mls @ 100 mls/hr IVCONT .Q10H [facility] Last Admin: 03/30/22 21:23 Dose: 100 mls/hr Vancomycin HCl 1,000 mg/ (Sodium Chloride) 270 mls @ 270 mls/hr IV Q12H [facility] Last Infusion: 03/31/22 01:03 Dose: Infused Metoprolol Tartrate (Metoprolol Tartrate 5 Mg/5 Ml Vial) 2.5 mg IVPUSH Q6H [facility] Last Admin: 03/31/22 07:40 Dose: 2.5 mg Olanzapine (Olanzapine 10 Mg Tablet) 10 mg PO BEDTIME [facility] Last Admin: 03/30/22 19:46 Dose: Not Given Olanzapine (Olanzapine 5 Mg Tablet) 5 mg PO BID PRN PRN Reason: agitation Last Admin: 03/20/22 09:43 Dose: 5 mg Omeprazole (Omeprazole 40 Mg Capsule.Dr) 40 mg PO DAILY@0630 [facility] Last Admin: 03/31/22 06:05 Dose: Not Given Pharmacy Consult (Consult Rx Perform Med Rec) 1 each MISCELLANE ONCE PRN PRN Reason: Consult order Pharmacy Consult (Consult Rx Etoh Phenob Im/Po) 1 each MISCELLANE ONCE PRN; Protocol PRN Reason: Consult order Pharmacy Consult (Consult Rx Vancomycin Dosing) 1 each MISCELLANE DAILY PRN PRN Reason: Consult order Prednisone (Prednisone 5 Mg Tablet) 5 mg PO DAILY [facility] Last Admin: 03/30/22 08:40 Dose: Not Given Sodium Chloride (0.9 % Sodium Chloride Flush 3 Ml Syringe) 3 ml IVFLUSH QSHIFT [facility] Last Admin: 03/31/22 07:41 Dose: 3 ml Tamsulosin HCl (Tamsulosin Hcl 0.4 Mg Capsule) 0.4 mg PO DAILY [facility] Last Admin: 03/30/22 08:40 Dose: Not Given Thiamine HCl (Thiamine Hcl 100 Mg Tablet) 100 mg PO DAILY [facility] Last Admin: 03/30/22 08:40 Dose: Not Given Tiotropium Ch[place] (Tiotropium [place] 18 Mcg Cap.W.Dev) 1 puff INHALE RDAILY [facility] Last Admin: 03/14/22 08:16 Dose: Not Given Vitamin D (Cholecalciferol (Vitamin D3) 25 Mcg Tablet) 50 mcg PO DAILY [facility] Last Admin: 03/31/22 07:30 Dose: Not Given Home Medications Medication Instructions Recorded Confirmed Last Taken Type atorvastatin 40 mg tablet 40 mg PO BEDTIME 04/01/20 03/03/22 Unknown History cholecalciferol (vitamin D3) 50 50 mcg PO DAILY 04/01/20 03/03/22 Unknown History mcg (2,000 unit) capsule gabapentin 600 mg tablet 600 mg PO BID 04/01/20 03/03/22 Unknown History metoprolol succinate 25 mg 25 mg PO DAILY 04/01/20 03/03/22 Unknown History tablet,extended release 24 hr phenytoin 50 mg chewable tablet 50 mg PO BID 04/01/20 03/03/22 Unknown History tamsulosin 0.4 mg capsule 0.4 mg PO DAILY 04/01/20 03/03/22 Unknown History umeclidinium 62.5 mcg/actuation 1 puff inhalation DAILY 09/26/20 03/03/22 Unknown History blister powder for inhalation (Incruse Ellipta) sertraline 25 mg tablet 1 tab PO DAILY 06/23/21 03/03/22 Unknown History olanzapine 20 mg tablet 1 tab PO BEDTIME 09/02/21 03/03/22 Unknown History apixaban 5 mg tablet (Eliquis) 5 mg PO BID 11/04/21 03/03/22 Unknown History cyanocobalamin (vitamin B-12) 1,000 mcg PO QAM 11/04/21 03/03/22 Unknown History 1,000 mcg tablet lisinopril 5 mg tablet 5 mg PO DAILY 11/04/21 03/03/22 Unknown History Physical Exam Vital Signs: Vital Signs: Last Vital Signs Temp 97.9 F 03/31/22 07:25 Pulse 92 03/31/22 07:25 Resp 28 H 03/31/22 07:25 BP 140/80 H 03/31/22 07:25 Pulse Ox 95 03/31/22 07:25 O2 Del Method 03/31/22 07:25 O2 Flow Rate 96 03/16/22 00:33 FiO2 94 03/14/22 20:00 BMI result Body Mass Index 25.8 Neuro: Other: Very drowsy. With verbal commands he did not open eyes. I was able to open his eyes and he was resisting. There was no eye movement suggestive of seizure or eye deviation. Mouth was very dry and face seems symmetrical. There was no abnormal posturing. Deep tendon reflexes were absent. Results Labs CBC & Chem 7: 03/30/22 10:33 03/31/22 06:42 Labs: Short CBC 03/30/22 Range/Units 10:33 WBC 18.4 H (4.8-10.8) X10*3/uL Hgb 11.9 L (14.0-18.0) g/dl Hct 37.9 L (42.0-52.0) % Plt Count 232 (160-400) X10*3/uL BMP 03/30/22 03/30/22 03/31/22 10:33 10:33 06:42 Sodium Cancelled 150 H Potassium Cancelled 3.8 Chloride Cancelled 117 H Carbon Dioxide Cancelled 21 L BUN Cancelled 16 Creatinine Cancelled 0.71 0.71 Calcium Cancelled 8.[address] did not reveal any acute abnormality. Spinal fluid results were reviewed. Microbiology Microbiology Results: Microbiology 03/26/22 14:34 Urine Catheterized - Straight Catheter Urine Culture - Final Proteus vulgaris Enterococcus faecalis 03/26/22 03:03 Blood - Venous Blood Culture - Final No growth after 5 days. 03/26/22 03:03 Blood - Venous Blood Culture - Final No growth after 5 days. 03/25/22 09:37 Blood - Venous Blood Culture - Final No growth after 5 days. 03/25/22 09:37 Blood - Venous Blood Culture - Final No growth after 5 days. 03/29/22 06:33 Blood - Venous Blood Culture - Preliminary No growth after 24 hours. 03/29/22 06:33 Blood - Venous Blood Culture - Preliminary No growth after 24 hours. 03/23/22 14:30 Cerebrospinal Fluid Gram Stain - Final 03/23/22 14:30 Cerebrospinal Fluid CSF Examination - Final 03/23/22 14:30 Cerebrospinal Fluid Fluid Description - Final 03/23/22 14:30 Cerebrospinal Fluid CSF Culture - Final No growth after 3 days. 03/03/22 10:37 Blood - Venous Blood Culture - Final No growth after 5 days. 03/03/22 10:37 Blood - Venous Blood Culture - Final No growth after 5 days. 03/03/22 Unknown Urine Catheterized - Straight Catheter Urine Culture - Final Aerococcus viridans Assessment and Plan (1) Meningoencephalitis: Status: Acute 66 years old man with multifactorial encephalopathy including significant find ings suggestive of bacterial meningoencephalitis the recent fever and signs of UTI. His serum sodium was also quite high contributing to encephalopathy. Mainstay of management is hydration and appropriate antibiotic coverage. CSF culture should be followed and appropriate cultures should be done for sepsis. This would result in further worsening or deterioration of his mental status. There is no indication of active seizure at this time but this diagnosis put him at high risk of seizure disorder even before. Prognosis is guarded. Procedures Date of Service Date of Service: 03/31/22
[2022-03-31 09:49] LABS: Anion Gap 10 (12-20); Blood Urea Nitrogen 11 mg/dL (9-16); Calcium 7.9 mg/dL (8.4-10.2); Carbon Dioxide 19 mmol/L (22-29); Chloride 116 mmol/L (96-108); Creatinine Clr Calc Pharmacy 125.7; Estimated Glomerular Filt Rate > 60; Glucose Random 120 mg/dL (60-115); Potassium 3.4 mmol/L (3.3-5.1); Sodium 142 mmol/L (135-145)
[2022-03-31] MEDS: levETIRAcetam in NaCl (iso-os) 500 MG/100 ML PIGGYBACK 400 MG IV (10:26)
--- NOTE | 2022-03-31 10:42 | MHC.SL.SWA ---
Speech Pathologist Impression: Risk of Aspiration Due to: Neurological Condition Reduced Cognition Dysphasia Diet Status: NPO. Provide patient with frequent oral care for comfort. Liquid Consistency and Strategies for Safe Swallow: Liquid Intake Recommendation: NPO Liquid Intake Strategies: Small Sips No Straws Liquids by Teaspoon Only Solid Food Consistency: Dietary Recommendations: NPO Additional Modifications to Solid Foods: Oral Medication Intake: NPO Please contact the pharmacy regarding appropriate crushable or liquid drug formulations that are available whenever modified delivery is recommended. Compensatory Strategies and Precautions to be Taken for Safe Swallow: Alternate Liquids/Solids Oral Check Supervision While Eating and Drinking for Safe Swallow: PO with WELLNESS PROGRAM COORDINATOR Foods to Avoid: Swallowing Recommended Treatments: Compens. Strategy Educat. Recommendation for Speech: Inpatient Speech Therapy Comment:Pt was seen this a.m. for swallow re-assessment and treatment. Patient was seated with head of bed at 90 degrees at onset, was noted to have his left hand raised, but had eyes clothes. to verbal stimuli he was noted to moan, and when asked to open his eyes in Ethiopian, he did so briefly but otherwise kept eye clothes, periodically moaning during this session, sometimes loudly. Pt was given oral care. Swab with minty mouth wash was presented with patient initially resisting by closing mouth, but once in oral cavity patient appear to suck on trace amounts of liquid. Dry skin was removed from lips and tongue with swab. Trace amounts of liquid presented was noted to escape anteriorly, no swallow was initiated. Pt was given oral moisturizer to lips and oral cavity. Pt then given trace amount of water by swab, again with patient appearing to suck on swab, with some liquid escaping anteriorly, but some noted to collect in mouth without patient initiating swallow. Swallow noted after extended delay, and after breathing quality became wet. Patient then noted to cough after delay, cough appeared productive, with patient initiating swallow after delay, with marked tongue thrust. Pt continues to be not adequately alert, aware, evidences decreased responsiveness, decreased automaticity of swallow when given trace amounts during oral care, and is at high risk for aspiration. Recommend continue NPO at this time. Recommend provide patient with frequent, rigorous oral care, and this was noted on white board for patient care notes. Frequency/Duration: M-F while inpatient. Date Range for Service Req: Timeline to reassess: Automatic Fabric Cutter Clinican/Clinical Fellow: No Supervisory Statement: I have reviewed and agree with the student/clinical fellow's documentation: N/A Speech Language Pathologist: Ranjana Byrnes M.A., CCC-WELLNESS PROGRAM COORDINATOR
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
--- NOTE | 2022-03-31 11:33 | MHC.CM.PN ---
[facility] is requesting a copy of the Patient's DNR and MOLST; CM has relayed this request to INFORMATION TECHNOLOGY AUDITOR/Starr.
[2022-03-31] MEDS: vancomycin HCL 1,000 MG in 0.9 % Sodium Chloride 250 ML 270 MG IV ×2 (11:48→22:11)
--- NOTE | 2022-03-31 15:17 | PM.IDPN ---
Subjective Subjective Date of Service: 03/31/22 Critical Care Time (minutes): 15 Comment: he is encephalopathic and is not alert Objective Data Labs CBC & Chem 7: 03/30/22 10:33 03/31/22 08:47 Labs: Laboratory Results - last 24 hr 03/30/22 03/31/22 03/31/22 21:27 06:42 08:47 Sodium 142 Potassium 3.4 Chloride 116 H Carbon Dioxide 19 L Anion Gap 10 L BUN 11 Creatinine 0.71 0.57 Estim Creat Clear Calc 100.9 125.7 Estimated GFR > 60 > 60 Random Glucose 120 H Calcium 7.9 L Vancomycin Trough 9.5 L Microbiology Microbiology Results: Microbiology 03/29/22 06:33 Blood - Venous Blood Culture - Preliminary No growth after 48 hours. 03/29/22 06:33 Blood - Venous Blood Culture - Preliminary No growth after 48 hours. 03/26/22 14:34 Urine Catheterized - Straight Catheter Urine Culture - Final Proteus vulgaris Enterococcus faecalis 03/26/22 03:03 Blood - Venous Blood Culture - Final No growth after 5 days. 03/26/22 03:03 Blood - Venous Blood Culture - Final No growth after 5 days. 03/25/22 09:37 Blood - Venous Blood Culture - Final No growth after 5 days. 03/25/22 09:37 Blood - Venous Blood Culture - Final No growth after 5 days. 03/23/22 14:30 Cerebrospinal Fluid Gram Stain - Final 03/23/22 14:30 Cerebrospinal Fluid CSF Examination - Final 03/23/22 14:30 Cerebrospinal Fluid Fluid Description - Final 03/23/22 14:30 Cerebrospinal Fluid CSF Culture - Final No growth after 3 days. 03/03/22 10:37 Blood - Venous Blood Culture - Final No growth after 5 days. 03/03/22 10:37 Blood - Venous Blood Culture - Final No growth after 5 days. 03/03/22 Unknown Urine Catheterized - Straight Catheter Urine Culture - Final Aerococcus viridans Physical Exam Vital Signs: Vital Signs: Last Vital Signs Temp 97.1 F 03/31/22 15:01 Pulse 90 03/31/22 15:01 Resp 16 03/31/22 15:01 BP 144/80 H 03/31/22 15:01 Pulse Ox 91 L 03/31/22 15:01 O2 Del Method 03/31/22 15:01 O2 Flow Rate 96 03/16/22 00:33 FiO2 94 03/14/22 20:00 BMI result Body Mass Index 25.8 Const: General: cooperative HEENT: Head: Yes normal to inspection Mouth: Normal oral and palatal mucosa present Resp: Effort & Inspection: normal respiratory effort Cardio: Rate: regular rate Rhythm: regular rhythm GI: Palpation (GI): not firm Extrem: Other: unremarkable Assessment and Plan Assessment and plan (1) Dementia: Problem details: There is no sign of bacterial meningoencephalitis,negative PCR bacterial panel. There is some sign aspiration pneumonia that would be gram negative,anerobe ,gram positive Status: Acute Plan Check MRSA nares and stop Vancomycin if MRSA negative nares. Would give Levaquin and flagyl for seven days cover aspiration pneumonia Time Spent With Patient Time: Total time spent is greater than 50% in coordination of care (as documented) at patient's floor/unit and/or counseling patient:
[2022-03-31 17:57] LABS: MRSA Nasal PCR NEGATIVE (Negative); SA Nasal PCR NEGATIVE (Negative)
--- NOTE | 2022-03-31 18:35 | PC.NURSE ---
Dressing to dorsal region of L foot changed at 18:15. previous dressing was saturated with malodorous Serosanguinous drainage. Wound bed appears dusky red. Silver alginate applied to wound and foot wrapped with gauze roll to keep in place.
[2022-04-01] MEDS: Heparin Sodium,Porcine Flush 50 UNITS, 0.9 % Sodium Chloride Flush 5 ML IVFLUSH ×3 (00:50→15:45)
[2022-04-01] MEDS: Enoxaparin Sodium 80 MG/0.8 ML SYRINGE SUBCUT ×2 (01:56→12:25)
[2022-04-01] MEDS: Metoprolol Tartrate 5 MG/5 ML VIAL 2.5 MG IVPUSH ×4 (01:58→20:33)
[2022-04-01 03:46] VITALS: BP 169/81; PULSE 81; RESP 16; TEMP 37.1; O2SAT 98
[2022-04-01] MEDS: metroNIDAZOLE/NS 500 MG/100 ML PIGGYBACK 100 MG IV ×3 (05:07→22:10)
[2022-04-01] MEDS: levoFLOXacin/D5W 750 MG/150 ML PIGGYBACK 100 MG IV (06:13)
[2022-04-01 06:39] LABS: Creatinine Clr Calc Pharmacy 108.6; Estimated Glomerular Filt Rate > 60
--- NOTE | 2022-04-01 07:11 | PC.NURSE ---
New wound reported by COLD TYPE COMPOSING MACHINE OPERATOR's during AM care, noted,on location of left posterior knee due to knee fold, from contraction.
[2022-04-01 08:00] VITALS: BP 170/81; PULSE 95; RESP 24; TEMP 36.7; O2SAT 96
[2022-04-01 10:18] LABS: Vancomycin Trough 13.2 mcg/mL (10.0-20.0)
[2022-04-01] MEDS: 0.9 % Sodium Chloride Flush 3 ML SYRINGE IVFLUSH ×2 (10:29→16:06)
--- NOTE | 2022-04-01 11:13 | HE.PHANOTE ---
Vancomycin Dosing Addendum Patient's level came back this morning at 13.2 mg/L. Patients renal function is stable. Scr down at 0.66 from 0.71 yesterday. Level to be drawn again 04/02 @2100.
[2022-04-01 11:37] VITALS: BP 159/67; PULSE 87; RESP 18; TEMP 36.7; O2SAT 95
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
[2022-04-01] MEDS: vancomycin HCL 1,000 MG in 0.9 % Sodium Chloride 250 ML 270 MG IV (12:26)
--- NOTE | 2022-04-01 13:31 | MHC.CM.PN ---
Per CM Criminal Researcher, Sonia has ruled that Patient/HCP has lost the appeal;also, Patient/HCP will be doing a second appeal. CM will follow.
[2022-04-01 13:57] VITALS: BMI 25.8
[2022-04-01 15:05] VITALS: BP 142/75; PULSE 80; RESP 18; TEMP 36.4; O2SAT 99
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
[2022-04-01 16:35] LABS: Anion Gap 16 (12-20); Carbon Dioxide 17 mmol/L (22-29); Chloride 118 mmol/L (96-108); Potassium 3.6 mmol/L (3.3-5.1); Sodium 147 mmol/L (135-145)
--- NOTE | 2022-04-01 19:04 | MHC.SLORD ---
Addendum entered and electronically signed by Alison Hunter MA, CCC-HOME CARE LIAISON 04/01/22 19:10: D.S. Original Note: Speech Language Pathology Order Status: Per RN, pt has not been successful taking PO meds crushed in applesauce and is not appropriate for re-evaluation of swallow. Pt not seen by HOME CARE LIAISON today. HOME CARE LIAISON will continue to follow and re-evaluate if appropriate for PO trials.
[2022-04-01 19:16] VITALS: BP 156/78; PULSE 85; RESP 18; TEMP 36.6; O2SAT 95
[2022-04-02] VITALS (7 sets, daily range): BP systolic 150–198; BP diastolic 70–91; PULSE 79–104; RESP 16–20; TEMP 35.9–37.2; O2SAT 93–98
[2022-04-02] MEDS: Metoprolol Tartrate 5 MG/5 ML VIAL 2.5 MG IVPUSH ×4 (00:46→20:30)
[2022-04-02] MEDS: Heparin Sodium,Porcine Flush 50 UNITS, 0.9 % Sodium Chloride Flush 5 ML IVFLUSH ×3 (00:47→16:39)
[2022-04-02] MEDS: Enoxaparin Sodium 80 MG/0.8 ML SYRINGE SUBCUT ×2 (00:48→13:08)
[2022-04-02] MEDS: 0.9 % Sodium Chloride Flush 3 ML SYRINGE IVFLUSH ×4 (00:53→20:29)
[2022-04-02] MEDS: levoFLOXacin/D5W 750 MG/150 ML PIGGYBACK 100 MG IV (05:54)
[2022-04-02] MEDS: metroNIDAZOLE/NS 500 MG/100 ML PIGGYBACK 100 MG IV ×3 (06:34→22:31)
[2022-04-02 07:32] LABS: Estimated Glomerular Filt Rate > 60
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
[2022-04-02 10:10] LABS: Anion Gap 15 (12-20); Carbon Dioxide 16 mmol/L (22-29); Chloride 121 mmol/L (96-108); Magnesium 1.8 mg/dL (1.6-2.6); Phosphorus 2.7 mg/dL (2.7-4.5); Potassium 3.2 mmol/L (3.3-5.1); Sodium 149 mmol/L (135-145)
[2022-04-02 12:40] LABS: Anion Gap 16 (12-20); Blood Urea Nitrogen 13 mg/dL (9-16); Calcium 8.1 mg/dL (8.4-10.2); Carbon Dioxide 15 mmol/L (22-29); Chloride 122 mmol/L (96-108); Creatinine Clr Calc Pharmacy 106.9; Estimated Glomerular Filt Rate > 60; Glucose Random 100 mg/dL (60-115); Magnesium 1.8 mg/dL (1.6-2.6); Phosphorus 2.4 mg/dL (2.7-4.5); Potassium 3.3 mmol/L (3.3-5.1); Sodium 150 mmol/L (135-145)
[2022-04-02 21:52] LABS: Vancomycin Random 4.3 mcg/mL (15-20)
[2022-04-03] MEDS: Heparin Sodium,Porcine Flush 50 UNITS, 0.9 % Sodium Chloride Flush 5 ML IVFLUSH ×4 (01:37→23:52)
[2022-04-03] MEDS: Enoxaparin Sodium 80 MG/0.8 ML SYRINGE SUBCUT ×2 (01:39→12:43)
[2022-04-03] MEDS: Metoprolol Tartrate 5 MG/5 ML VIAL 2.5 MG IVPUSH ×4 (01:41→18:11)
[2022-04-03 01:48] VITALS: BP 166/79; PULSE 89; RESP 16; TEMP 36.9; O2SAT 94
[2022-04-03] MEDS: levoFLOXacin/D5W 750 MG/150 ML PIGGYBACK 100 MG IV (05:35)
[2022-04-03 06:50] LABS: Creatinine Clr Calc Pharmacy 108.6; Estimated Glomerular Filt Rate > 60
[2022-04-03 06:54] LABS: Anion Gap 11 (12-20); Blood Urea Nitrogen 13 mg/dL (9-16); Calcium 8.2 mg/dL (8.4-10.2); Carbon Dioxide 19 mmol/L (22-29); Chloride 123 mmol/L (96-108); Creatinine Clr Calc Pharmacy 106.9; Estimated Glomerular Filt Rate > 60; Glucose Random 134 mg/dL (60-115); Magnesium 1.7 mg/dL (1.6-2.6); Phosphorus 2.1 mg/dL (2.7-4.5); Potassium 3.1 mmol/L (3.3-5.1); Sodium 150 mmol/L (135-145)
[2022-04-03] MEDS: metroNIDAZOLE/NS 500 MG/100 ML PIGGYBACK 100 MG IV ×3 (07:32→22:38)
[2022-04-03 08:00] VITALS: BP 170/90; PULSE 98; RESP 16; TEMP 37.2; O2SAT 94
[2022-04-03] MEDS: 0.9 % Sodium Chloride Flush 3 ML SYRINGE IVFLUSH ×3 (08:42→23:53)
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
--- NOTE | 2022-04-03 10:54 | MHC.CLN ---
TPN CONTINUES NPO. TPN STARTED 04/02. PATIENT AT RISK OF REFEEDING SO RECOMMEND SLOW ADVANCEMENT OF TPN WITH CLOSE MONITORING OF LABS. NUTRITIONAL NEEDS BASED ON IBW=72.73 KG. LABS REVIEWED SHOWING HIGH SODIUM, LOW POTASSIUM AND PHOSPHORUS. CURRENT TPN D15AA5 AT 30 ML PER HOUR. PROVIDES 511 KCALS, 36 G PROTEIN. 04/03: RECOMMEND CONTINUE TPN D15AA5 AT 30 ML PER HOUR. REPLETE LYTES NEEDED. CHECK TRIGLYCERIDES. 04/04: IF NO SIGNS OF REFEEDING, RECOMMEND ADVANCE TO 50 ML PER HOUR. D15AA5 AT 50 ML PER HOUR PROVIDES 852 KCALS, 60 G PROTEIN. REPLETE LYTES NEEDED. 04/05: IF NO SIGNS OF REFEEDING, RECOMMEND ADVANCE TO MAX GOAL RATE: D15AA5 AT 83.33 ML PER HOUR. ADD LIPIDS 17 ML OF 20% LIPIDS. PROVIDES 1828 KCALS (25.1 KCALS/KG IBW), 100 G PROTEIN (1.37 G/KG IBW). REPLETE LYTES NEEDED.
[2022-04-03 11:06] VITALS: BMI 25.8
[2022-04-03 11:37] LABS: Albumin Level 2.2 g/dL (3.5-5.0)
[2022-04-03 11:52] VITALS: BP 191/90; PULSE 90; RESP 16; TEMP 36.8; O2SAT 95
[2022-04-03] MEDS: Dextrose 5 % 1,000 ML 100 ML IVCONT ×2 (12:27→22:40)
[2022-04-03 15:09] VITALS: BP 160/78; PULSE 90; RESP 18; TEMP 36.4; O2SAT 92
[2022-04-03 18:49] VITALS: BP 185/86; PULSE 82; RESP 18; TEMP 36.7; O2SAT 94
[2022-04-03 23:04] VITALS: BP 190/83; PULSE 79; RESP 18; TEMP 36.3; O2SAT 91
[2022-04-04] MEDS: Metoprolol Tartrate 5 MG/5 ML VIAL 2.5 MG IVPUSH ×4 (00:41→20:20)
[2022-04-04] MEDS: Enoxaparin Sodium 80 MG/0.8 ML SYRINGE SUBCUT ×2 (00:41→12:28)
[2022-04-04 01:24] LABS: Anion Gap 11 (12-20); Blood Urea Nitrogen 11 mg/dL (9-16); Calcium 7.8 mg/dL (8.4-10.2); Carbon Dioxide 20 mmol/L (22-29); Chloride 118 mmol/L (96-108); Creatinine Clr Calc Pharmacy 108.6; Estimated Glomerular Filt Rate > 60; Glucose Random 158 mg/dL (60-115); Magnesium 1.5 mg/dL (1.6-2.6); Potassium 2.8 mmol/L (3.3-5.1); Sodium 146 mmol/L (135-145)
[2022-04-04 04:00] VITALS: BP 150/72; PULSE 80; RESP 18; TEMP 37; O2SAT 95
[2022-04-04] MEDS: levoFLOXacin/D5W 750 MG/150 ML PIGGYBACK 100 MG IV (05:03)
[2022-04-04] MEDS: metroNIDAZOLE/NS 500 MG/100 ML PIGGYBACK 100 MG IV ×3 (06:12→23:22)
[2022-04-04 07:08] LABS: Creatinine Clr Calc Pharmacy 119.4; Estimated Glomerular Filt Rate > 60
[2022-04-04 07:12] LABS: Anion Gap 11 (12-20); Blood Urea Nitrogen 11 mg/dL (9-16); Calcium 7.7 mg/dL (8.4-10.2); Carbon Dioxide 20 mmol/L (22-29); Chloride 115 mmol/L (96-108); Creatinine Clr Calc Pharmacy 117.5; Estimated Glomerular Filt Rate > 60; Glucose Random 116 mg/dL (60-115); Magnesium 1.5 mg/dL (1.6-2.6); Phosphorus 3.1 mg/dL (2.7-4.5); Potassium 3.1 mmol/L (3.3-5.1); Sodium 143 mmol/L (135-145)
[2022-04-04 07:23] VITALS: BP 160/72; PULSE 92; RESP 18; TEMP 36.9; O2SAT 96
[2022-04-04] MEDS: 0.9 % Sodium Chloride Flush 3 ML SYRINGE IVFLUSH ×2 (08:15→12:29)
[2022-04-04] MEDS: Heparin Sodium,Porcine Flush 50 UNITS, 0.9 % Sodium Chloride Flush 5 ML IVFLUSH ×2 (08:15→15:38)
[2022-04-04] MEDS: Dextrose 5 % 1,000 ML 100 ML IVCONT ×2 (08:27→20:14)
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
[2022-04-04 11:49] LABS: Triglycerides 47 mg/dL
[2022-04-04 12:00] VITALS: BP 163/76; PULSE 87; RESP 18; TEMP 37.4; O2SAT 94
[2022-04-04 16:00] VITALS: BP 158/74; PULSE 84; RESP 18; TEMP 36.6; O2SAT 100
[2022-04-04 20:00] VITALS: BP 148/68; PULSE 78; RESP 18; TEMP 36.3; O2SAT 94
[2022-04-05] VITALS (8 sets, daily range): BP systolic 152–180; BP diastolic 68–81; PULSE 78–95; RESP 16–20; TEMP 36.2–36.9; O2SAT 95–97
[2022-04-05] MEDS: Enoxaparin Sodium 80 MG/0.8 ML SYRINGE SUBCUT ×2 (00:31→13:02)
[2022-04-05] MEDS: Heparin Sodium,Porcine Flush 50 UNITS, 0.9 % Sodium Chloride Flush 5 ML IVFLUSH ×3 (00:33→16:50)
[2022-04-05] MEDS: 0.9 % Sodium Chloride Flush 3 ML SYRINGE IVFLUSH ×3 (02:17→16:50)
[2022-04-05] MEDS: Metoprolol Tartrate 5 MG/5 ML VIAL 2.5 MG IVPUSH ×4 (02:17→21:49)
[2022-04-05] MEDS: levoFLOXacin/D5W 750 MG/150 ML PIGGYBACK 100 MG IV (06:18)
[2022-04-05] MEDS: metroNIDAZOLE/NS 500 MG/100 ML PIGGYBACK 100 MG IV ×3 (06:46→21:54)
[2022-04-05 07:19] LABS: Creatinine Clr Calc Pharmacy 121.4; Estimated Glomerular Filt Rate > 60
[2022-04-05 07:27] LABS: Albumin Level 2.1 g/dL (3.5-5.0); Anion Gap 12 (12-20); Blood Urea Nitrogen 8 mg/dL (9-16); Calcium 7.5 mg/dL (8.4-10.2); Carbon Dioxide 21 mmol/L (22-29); Chloride 108 mmol/L (96-108); Creatinine Clr Calc Pharmacy 119.4; Estimated Glomerular Filt Rate > 60; Glucose Random 126 mg/dL (60-115); Phosphorus 2.9 mg/dL (2.7-4.5); Potassium 2.9 mmol/L (3.3-5.1); Sodium 138 mmol/L (135-145); Triglycerides 45 mg/dL
[2022-04-05 07:45] LABS: Magnesium 1.4 mg/dL (1.6-2.6)
[2022-04-05] MEDS: Magnesium Sulfate/H2O 2 GM/50 ML PIGGYBACK IV (09:06)
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
[2022-04-05] MEDS: Morphine Sulfate 2 MG/ML CARTRIDGE 1 MG IVPUSH (11:24)
[2022-04-05 12:07] LABS: Mean Corpuscular HGB Conc 32.4 g/dl (31.0-36.0); Mean Corpuscular Hemoglobin 28.7 pg (27.0-33.0); Mean Corpuscular Volume 88.8 fL (80.0-98.0); Mean Platelet Volume 9.3 fL (9.4-12.4); Platelet Count 345 X10*3/uL (160-400); Red Blood Count 3.83 X10*6/uL (4.60-5.80); Red Cell Distribution Width 13.6 % (11.0-16.0); White Blood Count 16.6 X10*3/uL (4.8-10.8)
--- NOTE | 2022-04-05 16:19 | MHC.CM.PN ---
[facility] RECE[facility]. [facility] DENIED APPEAL
[2022-04-06] VITALS (7 sets, daily range): BP systolic 132–160; BP diastolic 68–85; PULSE 86–104; RESP 16–20; TEMP 36.6–37.4; O2SAT 93–100
[2022-04-06] MEDS: Heparin Sodium,Porcine Flush 50 UNITS, 0.9 % Sodium Chloride Flush 5 ML IVFLUSH ×3 (00:23→15:45)
[2022-04-06] MEDS: Enoxaparin Sodium 80 MG/0.8 ML SYRINGE SUBCUT ×2 (00:24→13:48)
[2022-04-06] MEDS: 0.9 % Sodium Chloride Flush 3 ML SYRINGE IVFLUSH ×3 (00:28→15:46)
[2022-04-06] MEDS: Metoprolol Tartrate 5 MG/5 ML VIAL 2.5 MG IVPUSH ×4 (00:31→18:38)
--- NOTE | 2022-04-06 02:45 | PC.NURSE ---
03/31/2022 0300 :Patient Lloyd Molina unstageable Left lower extremity anterior, medial, lateral foot, 4th and 5 th metatarsal: This RN performed wound treatment as ordered by wound wellness consultant Silver alginate ?cut to fit? cover with dry clean dressing change q 48 hours.It was noted to have moderate brown drainage on dressing. I unwrapped the wound and had to soak the alginate off the wound bed as it was stuck to the necrotic area. I cleansed the wound and applied ?silver alginate? as ordered, covered with dry clean dressing and secured with tape. I took photos of the wound and placed it in the? paper chart) as previously documented in wound wellness consultant notes on 03/30/22 ?macerated dark maroon colored ulcer with no granulation , redness or edema? . This RN reported to the supervisor chlorine liquefaction, and will follow up with Nursing management.?
[2022-04-06] MEDS: levoFLOXacin/D5W 750 MG/150 ML PIGGYBACK 100 MG IV (05:28)
[2022-04-06 07:31] LABS: Creatinine Clr Calc Pharmacy 113.7; Estimated Glomerular Filt Rate > 60
[2022-04-06 07:33] LABS: Blood Urea Nitrogen 12 mg/dL (9-16); Calcium 7.5 mg/dL (8.4-10.2); Creatinine Clr Calc Pharmacy 119.4; Estimated Glomerular Filt Rate > 60; Glucose Random 131 mg/dL (60-115); Magnesium 1.8 mg/dL (1.6-2.6); Phosphorus 2.5 mg/dL (2.7-4.5)
[2022-04-06 07:44] LABS: Anion Gap 10 (12-20); Carbon Dioxide 20 mmol/L (22-29); Chloride 109 mmol/L (96-108); Potassium 3.6 mmol/L (3.3-5.1); Sodium 135 mmol/L (135-145)
--- NOTE | 2022-04-06 10:08 | MHC.CLN ---
F/U REVIEWED LABS CURRENT TPN D15AA5 AT 30 ML PER HOUR PROVIDES 511 KCALS, 36 G PROTEIN DISCUSSED WITH PHARMACY RECOMMEND ADVANCE TO 50 ML PER HOUR D15AA5 AT 50 ML PER HOUR TO PROVIDE 852 KCALS, 60 G PROTEIN REPLETE LYTES NEEDED; CHECK TRIGLYCERIDES
[2022-04-06] MEDS: metroNIDAZOLE/NS 500 MG/100 ML PIGGYBACK 100 MG IV ×2 (10:24→18:38)
--- NOTE | 2022-04-06 13:15 | MHC.SLORD ---
Speech Language Pathology Order Status: Pt was awake, holding and waving arms out in front of him. Pt not answering questions or following commands. REGISTERED NURSE CARDIAC TELEMETRY attempted to provide oral care. Pt refusing to open his mouth for swab or liquid despite several attempts. Unable to complete bedside swallow evaluation.
--- NOTE | 2022-04-06 14:29 | HO.VASCPN ---
Subjective Subjective Date of Service: 04/06/22 Interval history: Complex 66-year-old gentleman with meningioma encephalitis and sepsis developed this nonhealing ulcer of the left foot. It had been stable until last week. Over the weekend it had rapidly progressed and has a nonhealing ulcer of that left foot. Of note he is poorly responsive. He is holding that left leg in a contracted position. He is now for follow-up. Physical Exam Vital Signs: Vital Signs: Last Vital Signs Temp 98.5 F 04/06/22 11:35 Pulse 104 H 04/06/22 11:35 Resp 20 04/06/22 11:35 BP 132/72 04/06/22 11:35 Pulse Ox 93 04/06/22 11:35 O2 Del Method 04/06/22 11:35 O2 Flow Rate 96 03/16/22 00:33 FiO2 94 03/14/22 20:00 BMI result Body Mass Index 25.8 Const: General: cooperative, healthy appearing and no acute distress Orientation/consciousness: oriented to person, oriented to place and oriented to time HEENT: Head: Yes normal to inspection Neck: Carotids: no bruits Chest: Chest palpation & inspection: normal inspection of the chest Resp: Effort & Inspection: normal respiratory effort and able to speak in complete sentences Auscultation: clear to auscultation bilaterally Cardio: Rate: regular rate Heart sounds: S1 normal heart sound present and S2 normal heart sound present GI: Inspection: Yes normal to inspection Skin: Other: Necrotic left foot with leg in contracted position General skin exam: no rashes or lesions noted Wounds: no wounds Neuro: General: oriented to person, oriented to place, oriented to time and CN's II-XI intact bilaterally Extrem: General: Yes normal to inspection, Yes full ROM and Yes no clubbing, cyanosis or edema Psych: Appearance: grossly normal and well kempt Speech and movement: Normal speech and movement present Affect: normal affect Progress Note: A&P Assessment and plan (1) Ulcer of foot: Status: Acute Assessment and Plan: In short patient has a nonhealing left foot ulcer. Due to his overall comorbidities and his bedbound status he is not in any condition for any vascular bypass. In addition the left leg is contracted in a bent position. He will require left above knee amputation. I did leave a message for healthcare proxy. In addition the hospitalist team did discuss these findings with the patient and they are in agreement to move forward. Thank you for allowing us to assist in his care. He will be scheduled for tomorrow. (2) PAD (peripheral artery disease): Status: Acute Time Spent With Patient Time: Total time spent is greater than 50% in coordination of care (as documented) at patient's floor/unit and/or counseling patient: Procedures Date of Service Date of Service: 04/06/22 Quality Stroke Does the patient have a stroke diagnosis?: No VTE Prior VTE?: No VTE Risk Level:: Medical - moderate - high VTE Device Contraindication: Treatment Not Indicated VTE Drug Contraindication: N/A - Med Ordered
--- NOTE | 2022-04-06 16:46 | MHC.CM.PN ---
No DC today. Patient has been seen by vascular today. He will require an amputation. DP STR via BLS
[2022-04-07] VITALS (12 sets, daily range): BP systolic 116–160; BP diastolic 58–83; PULSE 83–94; RESP 15–20; TEMP 36.2–37.7; O2SAT 95–98
[2022-04-07] MEDS: Metoprolol Tartrate 5 MG/5 ML VIAL 2.5 MG IVPUSH ×3 (00:47→20:35)
[2022-04-07] MEDS: 0.9 % Sodium Chloride Flush 3 ML SYRINGE IVFLUSH ×4 (00:48→20:36)
[2022-04-07] MEDS: Heparin Sodium,Porcine Flush 50 UNITS, 0.9 % Sodium Chloride Flush 5 ML IVFLUSH ×2 (00:48→18:39)
[2022-04-07] MEDS: metroNIDAZOLE/NS 500 MG/100 ML PIGGYBACK 100 MG IV ×3 (04:28→18:34)
[2022-04-07] MEDS: levoFLOXacin/D5W 750 MG/150 ML PIGGYBACK 100 MG IV (05:46)
[2022-04-07 08:07] LABS: Anion Gap 10 (12-20); Blood Urea Nitrogen 12 mg/dL (9-16); Calcium 7.7 mg/dL (8.4-10.2); Carbon Dioxide 22 mmol/L (22-29); Chloride 110 mmol/L (96-108); Creatinine Clr Calc Pharmacy 117.5; Estimated Glomerular Filt Rate > 60; Glucose Random 122 mg/dL (60-115); Magnesium 1.6 mg/dL (1.6-2.6); Phosphorus 2.4 mg/dL (2.7-4.5); Potassium 3.6 mmol/L (3.3-5.1); Sodium 138 mmol/L (135-145)
[2022-04-07 08:08] LABS: Creatinine Clr Calc Pharmacy 121.4; Estimated Glomerular Filt Rate > 60
--- NOTE | 2022-04-07 10:52 | MHC.SLORD ---
Speech Language Pathology Order Status: Pt seen this a.m., and was notably more awake, alert responsive - verbalizing and answering y/n ?. Pt was given oral care, small sip of thickened liquid, bite of apple sauce, trace amounts of water before Nursing advised he was going for a procedure and was NPO for it. SURVEYOR MINE will re-attempt tomorrow, re-assess to resume po diet.
--- NOTE | 2022-04-07 10:59 | MHC.CLN ---
F/U PT RECEIVED D15AA5 AT 50 ML PER HOUR PROVIDED 852 KCALS, 60 G PROTEIN DISCUSSED WITH PHARMACY REVIEWED LABS RECOMMEND ADVANCE TO MAX GOAL RATE: D15AA5 AT 83.33 ML PER HOUR WITH 23ML OF 20% LIPIDS TO PROVIDE 1972 KCALS (25 KCALS/KG), 100G PROTEIN (1.37 G/KG) REPLETE LYTES NEEDED
--- NOTE | 2022-04-07 13:26 | PM.ANESCN ---
History of Present Illness Consult details Reason for consult: other [facility] Past Medical History Medical History Alcohol abuse Cardiomyopathy Cellulitis Dementia DVT (deep venous thrombosis) DVT of deep femoral vein GERD (gastroesophageal reflux disease) Hepatitis C antibody positive in blood Hypertension Seizure Family History Family History Father No problems noted. Mother No problems noted. Brother Cancer Sister No problems noted. Family history: reviewed and not pertinent Surgical History Surgical History No pertinent past surgical history Social History Social History Household Members: Unknown / Unable to assess Housing: Unknown / Unable to assess Unable to assess alcohol history related to: Unknown Alcohol intake: current Alcohol intake frequency: a few times a week Alcohol type: beer Patient Tobacco Use Status: Tobacco use Unknown Cigarettes Per Day: 7 Use of substances other than those prescribed or required for medical reasons: Unknown Substance Use Type: Unknown Currently Displaying Signs/Symptoms of Drug Intoxication Withdrawal: No Advance Directives: Yes Advance Directives on File: Yes Advance Directives Date on File: 10/11/20 Recently lost weight without trying: Unsure service: No Current occupational status: unemployed and disabled Meds Allergies Allergy/AdvReac Type Severity Reaction Status Date / Time No Known Allergies Allergy Verified 12/29/21 12:36 [No Known Allergies*] Active Medications: Current Medications Acetaminophen (Acetaminophen Supp 650 Mg Supp.Rect) 650 mg [place] Q6H PRN PRN Reason: fever Last Admin: 03/29/22 05:54 Dose: 650 mg Amlodipine Besylate (Amlodipine Besylate 10 Mg Tablet) 10 mg PO DAILY MILAGROS; Protocol Last Admin: 04/07/22 10:39 Dose: Not Given Atorvastatin Calcium (Atorvastatin Calcium 40 Mg Tablet) 40 mg PO BEDTIME [facility]ROS Last Admin: 04/06/22 20:47 Dose: Not Given Heparin Sodium (Porcine) 50 (units/ Sodium Chloride 5 ml) 0 units IVFLUSH QSHIFT [facility]ROS Last Admin: 04/07/22 10:39 Dose: Not Given Cyanocobalamin (Cyanocobalamin (Vitamin B-12) 1,000 Mcg Tablet) 1,000 mcg PO DAILY [facility] Last Admin: 04/07/22 10:40 Dose: Not Given Docusate Sodium (Docusate Sodium 100 Mg Capsule) 100 mg PO DAILY PRN PRN Reason: Constipation Folic Acid (Folic Acid 1 Mg Tablet) 1 mg PO DAILY [facility] Last Admin: 04/07/22 10:40 Dose: Not Given Gabapentin (Gabapentin 600 Mg Tablet) 600 mg PO BID [facility] Last Admin: 03/31/22 10:09 Dose: Not Given Levetiracetam (Keppra) 500 mg in 100 mls @ 400 mls/hr IV BID [facility] Last Infusion: 03/31/22 11:09 Dose: Infused Levofloxacin (Levaquin) 750 mg in 150 mls @ 100 mls/hr IV Q24H [facility] Last Infusion: 04/07/22 10:42 Dose: Infused Magnesium Sulfate 10 meq/Potassium Phosphate 40 mmol/Calcium Gluconate 9.3 meq/Sodium Acetate 40 meq/Potassium Acetate 70 meq/Multivitamins 17 ml/ Trace Metals 1.7 ml/ Amino Acids/Dextrose 1,200 mls @ 50 mls/hr IV DAILY@1800 [facility] Stop: 04/07/22 17:59 Last Infusion: 04/07/22 10:42 Dose: 50 mls/hr Metronidazole (Flagyl) 500 mg in 100 mls @ 100 mls/hr IV Q8H [facility] Last Infusion: 04/07/22 13:23 Dose: Infused Magnesium Sulfate 10 meq/Potassium Phosphate 40 mmol/Calcium Gluconate 9.3 meq/Sodium Acetate 40 meq/Potassium Acetate 70 meq/Multivitamins 10 ml/ Trace Metals 1 ml/ Amino Acids/Dextrose 2,000 mls @ 83.333 mls/hr IV DAILY@1800 [facility] Stop: 04/08/22 17:59 Fat Emulsion Intravenous (Intralipid) 138 mls @ 23 mls/hr IV DAILY@0000,1800 [facility] Stop: 04/08/22 05:59 Metoprolol Tartrate (Metoprolol Tartrate 5 Mg/5 Ml Vial) 2.5 mg IVPUSH Q6H [facility] Last Admin: 04/07/22 10:32 Dose: 2.5 mg Morphine Sulfate (Morphine Sulfate 2 Mg/Ml Cartridge) 1 mg IVPUSH Q4H PRN; Protocol PRN Reason: Pain, Severe (Pain Scale 7-10) Last Admin: 04/05/22 11:24 Dose: 1 mg Olanzapine (Olanzapine 10 Mg Tablet) 10 mg PO BEDTIME [facility] Last Admin: 03/30/22 19:46 Dose: Not Given Olanzapine (Olanzapine 5 Mg Tablet) 5 mg PO BID PRN PRN Reason: agitation Last Admin: 03/20/22 09:43 Dose: 5 mg Omeprazole (Omeprazole 40 Mg Capsule.Dr) 40 mg PO DAILY@0630 [facility] Last Admin: 04/07/22 05:47 Dose: Not Given Pharmacy Consult (Consult Rx Perform Med Rec) 1 each MISCELLANE ONCE PRN PRN Reason: Consult order Pharmacy Consult (Consult Rx Etoh Phenob Im/Po) 1 each MISCELLANE ONCE PRN; Protocol PRN Reason: Consult order Pharmacy Consult (Consult Rx Vancomycin Dosing) 1 each MISCELLANE DAILY PRN PRN Reason: Consult order Prednisone (Prednisone 5 Mg Tablet) 5 mg PO DAILY [facility] Last Admin: 04/07/22 10:40 Dose: Not Given Sodium Chloride (0.9 % Sodium Chloride Flush 3 Ml Syringe) 3 ml IVFLUSH QSHIFT [facility] Last Admin: 04/07/22 10:33 Dose: 3 ml Tamsulosin HCl (Tamsulosin Hcl 0.4 Mg Capsule) 0.4 mg PO DAILY [facility] Last Admin: 04/07/22 10:41 Dose: Not Given Thiamine HCl (Thiamine Hcl 100 Mg Tablet) 100 mg PO DAILY [facility] Last Admin: 04/07/22 10:41 Dose: Not Given Tiotropium Worden (Tiotropium Worden 18 Mcg Cap.W.Dev) 1 puff INHALE RDAILY [facility] Last Admin: 03/14/22 08:16 Dose: Not Given Vitamin D (Cholecalciferol (Vitamin D3) 25 Mcg Tablet) 50 mcg PO DAILY [facility] Last Admin: 04/07/22 10:39 Dose: Not Given Home Medications Medication Instructions Recorded Confirmed Last Taken Type atorvastatin 40 mg tablet 40 mg PO BEDTIME 04/01/20 03/03/22 Unknown History cholecalciferol (vitamin D3) 50 50 mcg PO DAILY 04/01/20 03/03/22 Unknown History mcg (2,000 unit) capsule gabapentin 600 mg tablet 600 mg PO BID 04/01/20 03/03/22 Unknown History metoprolol succinate 25 mg 25 mg PO DAILY 04/01/20 03/03/22 Unknown History tablet,extended release 24 hr phenytoin 50 mg chewable tablet 50 mg PO BID 04/01/20 03/03/22 Unknown History tamsulosin 0.4 mg capsule 0.4 mg PO DAILY 04/01/20 03/03/22 Unknown History umeclidinium 62.5 mcg/actuation 1 puff inhalation DAILY 09/26/20 03/03/22 Unknown History blister powder for inhalation (Incruse Ellipta) sertraline 25 mg tablet 1 tab PO DAILY 06/23/21 03/03/22 Unknown History olanzapine 20 mg tablet 1 tab PO BEDTIME 09/02/21 03/03/22 Unknown History apixaban 5 mg tablet (Eliquis) 5 mg PO BID 11/04/21 03/03/22 Unknown History cyanocobalamin (vitamin B-12) 1,000 mcg PO QAM 11/04/21 03/03/22 Unknown History 1,000 mcg tablet lisinopril 5 mg tablet 5 mg PO DAILY 11/04/21 03/03/22 Unknown History Physical Exam Vital Signs: Vital Signs: Last Vital Signs Temp 99.9 F 04/07/22 11:58 Pulse 91 04/07/22 11:58 Resp 20 04/07/22 11:58 BP 151/73 H 04/07/22 11:58 Pulse Ox 95 04/07/22 11:58 O2 Del Method 04/07/22 11:58 O2 Flow Rate 96 03/16/22 00:33 FiO2 94 03/14/22 20:00 BMI result Body Mass Index 25.8 Results Labs Result diagrams: 04/05/22 11:53 04/07/22 07:12 Labs: Abnormal lab results 04/07/22 Range/Units 07:12 Chloride 110 H (96-108) mmol/L Anion Gap 10 L (12-20) Random Glucose 122 H (60-115) mg/dL Calcium 7.7 L (8.4-10.2) mg/dL Phosphorus 2.4 L (2.7-4.5) mg/dL BMP 04/07/22 04/07/22 07:12 07:12 Sodium 138 Potassium 3.6 Chloride 110 H Carbon Dioxide 22 BUN 12 Creatinine 0.59 0.61 Calcium 7.7 L Urine 03/03/22 03/26/22 Range/Units 10:41 14:34 Urine Color Dark Yellow Dark Yellow Urine Appearance Turbid Turbid Urine pH 7.0 7.5 (5.0-9.0) Ur Specific [place] 1.025 1.020 (1.005-1.025) Urine Protein 30 (1+) H 100 (2+) H (Neg-Trace) mg/dL Urine Glucose (UA) Negative Negative (Negative) mg/dL All other labs normal.
--- NOTE | 2022-04-07 13:33 | P.CONAN_ITS ---
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 (Acute) Pneumonia (Acute) Sepsis (Acute) Dementia (Acute) PAD (peripheral artery disease) (Acute) Ulcer of foot (Acute) Thrush, oral (Acute) Alcohol withdrawal (Acute) Encephalopathy (Acute) Hepatitis (Acute) Encephalopathy (Acute) UTI (urinary tract infection) (Acute) Seizure (Acute) Atherosclerotic cardiovascular disease (Acute) Abnormal echocardiogram findings without diagnosis (Acute) Smoking (Acute) Essential hypertension (Acute) Hypertension (Acute) Cardiomyopathy (Acute) B12 deficiency (Acute) Elevated troponin (Acute) Hyperammonemia (Acute) Hypomagnesemia (Acute) Screening for colon cancer (Acute) Hepatitis C antibody positive in blood (Acute) GERD (gastroesophageal reflux disease) (Acute) Past Medical History Medical History Alcohol abuse Cardiomyopathy Cellulitis Dementia DVT (deep venous thrombosis) DVT of deep femoral vein GERD (gastroesophageal reflux disease) Hepatitis C antibody positive in blood Hypertension Seizure Functional capacity: bed bound Family History Family History Father No problems noted. Mother No problems noted. Brother Cancer Sister No problems noted. Family history of problems with anesthesia: Unobtainable Surgical History Surgical History No pertinent past surgical history History of Problems with Anesthesia: Unobtainable Social History Social History Household Members: Unknown / Unable to assess Housing: Unknown / Unable to assess Unable to assess alcohol history related to: Unknown Alcohol intake: current Alcohol intake frequency: a few times a week Alcohol type: beer Patient Tobacco Use Status: Tobacco use Unknown Cigarettes Per Day: 7 Use of substances other than those prescribed or required for medical reasons: Unknown Substance Use Type: Unknown Currently Displaying Signs/Symptoms of Drug Intoxication Withdrawal: No Advance Directives: Yes Advance Directives on File: Yes Advance Directives Date on File: 10/11/20 Recently lost weight without trying: Unsure service: No Current occupational status: unemployed and disabled Meds Allergies Allergy/AdvReac Type Severity Reaction Status Date / Time No Known Allergies Allergy Verified 04/07/22 13:53 [No Known Allergies*] Active Medications: Current Medications Acetaminophen (Acetaminophen Supp 650 Mg Supp.Rect) 650 mg MS Q6H PRN PRN Reason: fever Last Admin: 03/29/22 05:54 Dose: 650 mg Amlodipine Besylate (Amlodipine Besylate 10 Mg Tablet) 10 mg PO DAILY [facility]; Protocol Last Admin: 04/07/22 10:39 Dose: Not Given Atorvastatin Calcium (Atorvastatin Calcium 40 Mg Tablet) 40 mg PO BEDTIME [facility] Last Admin: 04/06/22 20:47 Dose: Not Given Heparin Sodium (Porcine) 50 (units/ Sodium Chloride 5 ml) 0 units IVFLUSH QSHIFT [facility] Last Admin: 04/07/22 10:39 Dose: Not Given Cyanocobalamin (Cyanocobalamin (Vitamin B-12) 1,000 Mcg Tablet) 1,000 mcg PO DAILY [facility] Last Admin: 04/07/22 10:40 Dose: Not Given Docusate Sodium (Docusate Sodium 100 Mg Capsule) 100 mg PO DAILY PRN PRN Reason: Constipation Folic Acid (Folic Acid 1 Mg Tablet) 1 mg PO DAILY [facility] Last Admin: 04/07/22 10:40 Dose: Not Given Gabapentin (Gabapentin 600 Mg Tablet) 600 mg PO BID [facility] Last Admin: 03/31/22 10:09 Dose: Not Given Levetiracetam (Keppra) 500 mg in 100 mls @ 400 mls/hr IV BID [facility] Last Infusion: 03/31/22 11:09 Dose: Infused Levofloxacin (Levaquin) 750 mg in 150 mls @ 100 mls/hr IV Q24H [facility] Last Infusion: 04/07/22 10:42 Dose: Infused Magnesium Sulfate 10 meq/Potassium Phosphate 40 mmol/Calcium Gluconate 9.3 meq/Sodium Acetate 40 meq/Potassium Acetate 70 meq/Multivitamins 17 ml/ Trace Metals 1.7 ml/ Amino Acids/Dextrose 1,200 mls @ 50 mls/hr IV DAILY@1800 [facility] Stop: 04/07/22 17:59 Last Infusion: 04/07/22 10:42 Dose: 50 mls/hr Metronidazole (Flagyl) 500 mg in 100 mls @ 100 mls/hr IV Q8H [facility] Last Infusion: 04/07/22 13:23 Dose: Infused Magnesium Sulfate 10 meq/Potassium Phosphate 40 mmol/Calcium Gluconate 9.3 meq/Sodium Acetate 40 meq/Potassium Acetate 70 meq/Multivitamins 10 ml/ Trace Metals 1 ml/ Amino Acids/Dextrose 2,000 mls @ 83.333 mls/hr IV DAILY@1800 [facility] Stop: 04/08/22 17:59 Fat Emulsion Intravenous (Intralipid) 138 mls @ 23 mls/hr IV DAILY@0000,1800 [facility] Stop: 04/08/22 05:59 Metoprolol Tartrate (Metoprolol Tartrate 5 Mg/5 Ml Vial) 2.5 mg IVPUSH Q6H [facility] Last Admin: 04/07/22 10:32 Dose: 2.5 mg Morphine Sulfate (Morphine Sulfate 2 Mg/Ml Cartridge) 1 mg IVPUSH Q4H PRN; Protocol PRN Reason: Pain, Severe (Pain Scale 7-10) Last Admin: 04/05/22 11:24 Dose: 1 mg Olanzapine (Olanzapine 10 Mg Tablet) 10 mg PO BEDTIME [facility] Last Admin: 03/30/22 19:46 Dose: Not Given Olanzapine (Olanzapine 5 Mg Tablet) 5 mg PO BID PRN PRN Reason: agitation Last Admin: 03/20/22 09:43 Dose: 5 mg Omeprazole (Omeprazole 40 Mg Capsule.Dr) 40 mg PO DAILY@0630 [facility] Last Admin: 04/07/22 05:47 Dose: Not Given Pharmacy Consult (Consult Rx Perform Med Rec) 1 each MISCELLANE ONCE PRN PRN Reason: Consult order Pharmacy Consult (Consult Rx Etoh Phenob Im/Po) 1 each MISCELLANE ONCE PRN; Protocol PRN Reason: Consult order Pharmacy Consult (Consult Rx Vancomycin Dosing) 1 each MISCELLANE DAILY PRN PRN Reason: Consult order Prednisone (Prednisone 5 Mg Tablet) 5 mg PO DAILY [facility] Last Admin: 04/07/22 10:40 Dose: Not Given Sodium Chloride (0.9 % Sodium Chloride Flush 3 Ml Syringe) 3 ml IVFLUSH QSHIFT [facility] Last Admin: 04/07/22 10:33 Dose: 3 ml Tamsulosin HCl (Tamsulosin Hcl 0.4 Mg Capsule) 0.4 mg PO DAILY [facility] Last Admin: 04/07/22 10:41 Dose: Not Given Thiamine HCl (Thiamine Hcl 100 Mg Tablet) 100 mg PO DAILY [facility] Last Admin: 04/07/22 10:41 Dose: Not Given Tiotropium [place] (Tiotropium [place] 18 Mcg Cap.W.Dev) 1 puff INHALE RDAILY [facility] Last Admin: 03/14/22 08:16 Dose: Not Given Vitamin D (Cholecalciferol (Vitamin D3) 25 Mcg Tablet) 50 mcg PO DAILY [facility] Last Admin: 04/07/22 10:39 Dose: Not Given Home Medications Medication Instructions Recorded Confirmed Last Taken Type atorvastatin 40 mg tablet 40 mg PO BEDTIME 04/01/20 03/03/22 Unknown History cholecalciferol (vitamin D3) 50 50 mcg PO DAILY 04/01/20 03/03/22 Unknown History mcg (2,000 unit) capsule gabapentin 600 mg tablet 600 mg PO BID 04/01/20 03/03/22 Unknown History metoprolol succinate 25 mg 25 mg PO DAILY 04/01/20 03/03/22 Unknown History tablet,extended release 24 hr phenytoin 50 mg chewable tablet 50 mg PO BID 04/01/20 03/03/22 Unknown History tamsulosin 0.4 mg capsule 0.4 mg PO DAILY 04/01/20 03/03/22 Unknown History umeclidinium 62.5 mcg/actuation 1 puff inhalation DAILY 09/26/20 03/03/22 Unknown History blister powder for inhalation (Incruse Ellipta) sertraline 25 mg tablet 1 tab PO DAILY 06/23/21 03/03/22 Unknown History olanzapine 20 mg tablet 1 tab PO BEDTIME 09/02/21 03/03/22 Unknown History apixaban 5 mg tablet (Eliquis) 5 mg PO BID 11/04/21 03/03/22 Unknown History cyanocobalamin (vitamin B-12) 1,000 mcg PO QAM 11/04/21 03/03/22 Unknown History 1,000 mcg tablet lisinopril 5 mg tablet 5 mg PO DAILY 11/04/21 03/03/22 Unknown History Exam Exam Date and Time: April 07, 2022 1333 Height,Weight and Vital Signs: Height 5 ft 9 in Weight 79.379 kg Last Vital Signs Temp 97.9 F 04/07/22 13:29 Pulse 90 04/07/22 13:29 Resp 16 04/07/22 13:29 BP 139/70 04/07/22 13:29 Pulse Ox 96 04/07/22 13:29 O2 Del Method 04/07/22 13:29 O2 Flow Rate 96 03/16/22 00:33 FiO2 94 03/14/22 20:00 Pertinent Lab Results Pertinent Lab Results: Laboratory Tests 03/03/22 03/03/22 03/03/22 09:37 10:37 10:37 WBC RBC Hgb Hct MCV MCH MCHC RDW Plt Count MPV Immature Gran % (Auto) Neut % (Auto) Lymph % (Auto) [place] % (Auto) Eos % (Auto) Baso % (Auto) Lymph # (Auto) [place] # (Auto) Eos # (Auto) Baso # (Auto) Abs Immat Gran (auto) Absolute Neuts (auto) Absolute Nucleated RBC Nucleated RBC % (auto) Smear Tech's Comments ESR PT INR APTT O2 Saturation ABG pH at Pt Temp ABG pCO2 at Pt Temp ABG pO2 at Pt Temp ABG HCO3 ABG Base Excess (Actual) VBG pH VBG pCO2 VBG pO2 VBG HCO3 VBG O2 Saturation VBG Base Excess Sodium 141 Potassium 4.3 Chloride 104 Carbon Dioxide 26 Anion Gap 15 BUN 13 Creatinine 0.74 Estim Creat Clear Calc 96.8 Estimated GFR > 60 POC Glucose 96 Random Glucose 94 Fasting Glucose Lactic Acid Lactic Acid F/U @ 2Hr Calcium 9.5 D Phosphorus Magnesium 1.6 Total Bilirubin 0.6 Direct Bilirubin AST 32 D ALT 13 Alkaline Phosphatase 111 D Ammonia 25 Total Creatine Kinase 1414 H D Troponin I High Sens C-Reactive Protein Total Protein 7.5 Albumin 4.0 Triglycerides Vitamin B1 Vitamin B12 Folate Procalcitonin TSH Urine Color Urine Appearance Urine pH Ur Specific [place] Urine Protein Urine Glucose (UA) Urine Ketones Urine Blood Urine Nitrite Ur Leukocyte Esterase Urine RBC Urine WBC Ur Squamous Epith Cells Urine Bacteria Hyaline Casts Urine Creatinine CSF Tube Number CSF Volume CSF Appearance CSF Color CSF WBC CSF RBC CSF Neutrophils CSF Lymphocytes CSF Appearance (b) CSF Glucose CSF Total Protein CSF C.neoform/gat PCR CSF CMV DNA (PCR) CSF Enterovirus (PCR) CSF E. coli K1 (PCR) CSF H. influenzae (PCR) CSF HSV I (PCR) CSF HSV II (PCR) CSF HHV 6 (PCR) CSF L.monocytogenes PCR CSF N. meningitidis PCR CSF Parechovirus (PCR) CSF S. agalactiae (PCR) CSF S. pneumoniae (PCR) CSF VZV (PCR) Nasal Screen MRSA (PCR) Nasal S. aureus Screen Nasal MRSA/S.aureus Interp Stool Occult Blood Vancomycin Trough Random Vancomycin Urine Opiates Screen Urine Fentanyl Screen Ur Barbiturates Screen Phenytoin Ur Phencyclidine Scrn Ur Amphetamines Screen U Benzodiazepines Scrn Urine Cocaine Screen U Marijuana (THC) Screen Ethyl Alcohol < 10 Respiratory Panel Peter T.pallidum Ab (EIA) Adenovirus (Rapid PCR) B.pert (TEM-PCR) B.parapertussis DNA PCR C. pneumoniae DNA (PCR) Coronavirus OC43 (PCR) Coronavirus HKU1 (PCR) Coronavirus 229E (PCR) COVID-19 (KATELYNN) COVID-19 Clin Com Coronavirus NL63 (PCR) HIV 1&2 Ab/P24 Ag 4thGn Human Metapneumovir PCR Influenza A (RT-PCR) Influenza B (RT-PCR) M. pneumoniae (PCR) Parainfluenza 1 (PCR) Parainfluenza 2 (PCR) Parainfluenza 3 (PCR) Parainfluenza 4 (PCR) RSV (PCR) Entero/Rhino (PCR) SARS-CoV-2 RNA (RT-PCR) Blood Type Antibody Screen 03/03/22 03/03/22 03/03/22 10:37 10:37 10:37 WBC 9.5 RBC 4.08 L Hgb 12.3 L Hct 37.1 L MCV 90.9 MCH 30.1 MCHC 33.2 RDW 12.6 Plt Count 256 MPV 8.8 L Immature Gran % (Auto) 0.3 Neut % (Auto) 56.0 Lymph % (Auto) 29.4 [place] % (Auto) 12.0 H Eos % (Auto) 1.6 Baso % (Auto) 0.7 Lymph # (Auto) 2.8 [place] # (Auto) 1.1 Eos # (Auto) 0.2 Baso # (Auto) 0.1 Abs Immat Gran (auto) 0.03 Absolute Neuts (auto) 5.3 Absolute Nucleated RBC 0.000 Nucleated RBC % (auto) 0.0 Smear Tech's Comments ESR PT INR APTT O2 Saturation ABG pH at Pt Temp ABG pCO2 at Pt Temp ABG pO2 at Pt Temp ABG HCO3 ABG Base Excess (Actual) VBG pH VBG pCO2 VBG pO2 VBG HCO3 VBG O2 Saturation VBG Base Excess Sodium Potassium Chloride Carbon Dioxide Anion Gap BUN Creatinine Estim Creat Clear Calc Estimated GFR POC Glucose Random Glucose Fasting Glucose Lactic Acid 1.3 Lactic Acid F/U @ 2Hr Calcium Phosphorus Magnesium Total Bilirubin Direct Bilirubin AST ALT Alkaline Phosphatase Ammonia Total Creatine Kinase Troponin I High Sens 38.5 H C-Reactive Protein Total Protein Albumin Triglycerides Vitamin B1 Vitamin B12 Folate Procalcitonin TSH Urine Color Urine Appearance Urine pH Ur Specific [place] Urine Protein Urine Glucose (UA) Urine Ketones Urine Blood Urine Nitrite Ur Leukocyte Esterase Urine RBC Urine WBC Ur Squamous Epith Cells Urine Bacteria Hyaline Casts Urine Creatinine CSF Tube Number CSF Volume CSF Appearance CSF Color CSF WBC CSF RBC CSF Neutrophils CSF Lymphocytes CSF Appearance (b) CSF Glucose CSF Total Protein CSF C.neoform/gat PCR CSF CMV DNA (PCR) CSF Enterovirus (PCR) CSF E. coli K1 (PCR) CSF H. influenzae (PCR) CSF HSV I (PCR) CSF HSV II (PCR) CSF HHV 6 (PCR) CSF L.monocytogenes PCR CSF N. meningitidis PCR CSF Parechovirus (PCR) CSF S. agalactiae (PCR) CSF S. pneumoniae (PCR) CSF VZV (PCR) Nasal Screen MRSA (PCR) Nasal S. aureus Screen Nasal MRSA/S.aureus Interp Stool Occult Blood Vancomycin Trough Random Vancomycin Urine Opiates Screen Urine Fentanyl Screen Ur Barbiturates Screen Phenytoin Ur Phencyclidine Scrn Ur Amphetamines Screen U Benzodiazepines Scrn Urine Cocaine Screen U Marijuana (THC) Screen Ethyl Alcohol Respiratory Panel Peter T.pallidum Ab (EIA) Adenovirus (Rapid PCR) B.pert (TEM-PCR) B.parapertussis DNA PCR C. pneumoniae DNA (PCR) Coronavirus OC43 (PCR) Coronavirus HKU1 (PCR) Coronavirus 229E (PCR) COVID-19 (KATELYNN) COVID-19 Clin Com Coronavirus NL63 (PCR) HIV 1&2 Ab/P24 Ag 4thGn Human Metapneumovir PCR Influenza A (RT-PCR) Influenza B (RT-PCR) M. pneumoniae (PCR) Parainfluenza 1 (PCR) Parainfluenza 2 (PCR) Parainfluenza 3 (PCR) Parainfluenza 4 (PCR) RSV (PCR) Entero/Rhino (PCR) SARS-CoV-2 RNA (RT-PCR) Blood Type Antibody Screen 03/03/22 03/03/22 03/03/22 10:41 10:41 10:41 WBC RBC Hgb Hct MCV MCH MCHC RDW Plt Count MPV Immature Gran % (Auto) Neut % (Auto) Lymph % (Auto) [place] % (Auto) Eos % (Auto) Baso % (Auto) Lymph # (Auto) [place] # (Auto) Eos # (Auto) Baso # (Auto) Abs Immat Gran (auto) Absolute Neuts (auto) Absolute Nucleated RBC Nucleated RBC % (auto) Smear Tech's Comments ESR PT INR APTT O2 Saturation ABG pH at Pt Temp ABG pCO2 at Pt Temp ABG pO2 at Pt Temp ABG HCO3 ABG Base Excess (Actual) VBG pH 7.39 VBG pCO2 40 VBG pO2 34 VBG HCO3 24 VBG O2 Saturation 49.0 VBG Base Excess 0.0 Sodium Potassium Chloride Carbon Dioxide Anion Gap BUN Creatinine Estim Creat Clear Calc Estimated GFR POC Glucose Random Glucose Fasting Glucose Lactic Acid Lactic Acid F/U @ 2Hr Calcium Phosphorus Magnesium Total Bilirubin Direct Bilirubin AST ALT Alkaline Phosphatase Ammonia Total Creatine Kinase Troponin I High Sens C-Reactive Protein Total Protein Albumin Triglycerides Vitamin B1 Vitamin B12 Folate Procalcitonin TSH Urine Color Dark Yellow Urine Appearance Turbid Urine pH 7.0 Ur Specific [place] 1.025 Urine Protein 30 (1+) H Urine Glucose (UA) Negative Urine Ketones 15 Urine Blood Negative Urine Nitrite Negative Ur Leukocyte Esterase Moderate (2+) H Urine RBC >20 H Urine WBC 6-10 H Ur Squamous Epith Cells 0-2 Urine Bacteria 4+ Hyaline Casts 0-2 Urine Creatinine CSF Tube Number CSF Volume CSF Appearance CSF Color CSF WBC CSF RBC CSF Neutrophils CSF Lymphocytes CSF Appearance (b) CSF Glucose CSF Total Protein CSF C.neoform/gat PCR CSF CMV DNA (PCR) CSF Enterovirus (PCR) CSF E. coli K1 (PCR) CSF H. influenzae (PCR) CSF HSV I (PCR) CSF HSV II (PCR) CSF HHV 6 (PCR) CSF L.monocytogenes PCR CSF N. meningitidis PCR CSF Parechovirus (PCR) CSF S. agalactiae (PCR) CSF S. pneumoniae (PCR) CSF VZV (PCR) Nasal Screen MRSA (PCR) Nasal S. aureus Screen Nasal MRSA/S.aureus Interp Stool Occult Blood Vancomycin Trough Random Vancomycin Urine Opiates Screen Not Detected Urine Fentanyl Screen Not Detected Ur Barbiturates Screen Not Detected Phenytoin Ur Phencyclidine Scrn Not Detected Ur Amphetamines Screen Not Detected U Benzodiazepines Scrn Not Detected Urine Cocaine Screen Not Detected U Marijuana (THC) Screen Not Detected Ethyl Alcohol Respiratory Panel Peter T.pallidum Ab (EIA) Adenovirus (Rapid PCR) B.pert (TEM-PCR) B.parapertussis DNA PCR C. pneumoniae DNA (PCR) Coronavirus OC43 (PCR) Coronavirus HKU1 (PCR) Coronavirus 229E (PCR) COVID-19 (KATELYNN) COVID-19 Clin Com Coronavirus NL63 (PCR) HIV 1&2 Ab/P24 Ag 4thGn Human Metapneumovir PCR Influenza A (RT-PCR) Influenza B (RT-PCR) M. pneumoniae (PCR) Parainfluenza 1 (PCR) Parainfluenza 2 (PCR) Parainfluenza 3 (PCR) Parainfluenza 4 (PCR) RSV (PCR) Entero/Rhino (PCR) SARS-CoV-2 RNA (RT-PCR) Blood Type Antibody Screen 03/03/22 03/03/22 03/03/22 10:42 12:47 12:47 WBC RBC Hgb Hct MCV MCH MCHC RDW Plt Count MPV Immature Gran % (Auto) Neut % (Auto) Lymph % (Auto) [place] % (Auto) Eos % (Auto) Baso % (Auto) Lymph # (Auto) [place] # (Auto) Eos # (Auto) Baso # (Auto) Abs Immat Gran (auto) Absolute Neuts (auto) Absolute Nucleated RBC Nucleated RBC % (auto) Smear Tech's Comments ESR PT 13.2 H INR 1.1 APTT 27.5 O2 Saturation ABG pH at Pt Temp ABG pCO2 at Pt Temp ABG pO2 at Pt Temp ABG HCO3 ABG Base Excess (Actual) VBG pH VBG pCO2 VBG pO2 VBG HCO3 VBG O2 Saturation VBG Base Excess Sodium Potassium Chloride Carbon Dioxide Anion Gap BUN Creatinine Estim Creat Clear Calc Estimated GFR POC Glucose Random Glucose Fasting Glucose Lactic Acid Lactic Acid F/U @ 2Hr Calcium Phosphorus Magnesium Total Bilirubin Direct Bilirubin AST ALT Alkaline Phosphatase Ammonia Total Creatine Kinase Troponin I High Sens 40.5 H C-Reactive Protein Total Protein Albumin Triglycerides Vitamin B1 Vitamin B12 Folate Procalcitonin TSH Urine Color Urine Appearance Urine pH Ur Specific [place] Urine Protein Urine Glucose (UA) Urine Ketones Urine Blood Urine Nitrite Ur Leukocyte Esterase Urine RBC Urine WBC Ur Squamous Epith Cells Urine Bacteria Hyaline Casts Urine Creatinine CSF Tube Number CSF Volume CSF Appearance CSF Color CSF WBC CSF RBC CSF Neutrophils CSF Lymphocytes CSF Appearance (b) CSF Glucose CSF Total Protein CSF C.neoform/gat PCR CSF CMV DNA (PCR) CSF Enterovirus (PCR) CSF E. coli K1 (PCR) CSF H. influenzae (PCR) CSF HSV I (PCR) CSF HSV II (PCR) CSF HHV 6 (PCR) CSF L.monocytogenes PCR CSF N. meningitidis PCR CSF Parechovirus (PCR) CSF S. agalactiae (PCR) CSF S. pneumoniae (PCR) CSF VZV (PCR) Nasal Screen MRSA (PCR) Nasal S. aureus Screen Nasal MRSA/S.aureus Interp Stool Occult Blood Vancomycin Trough Random Vancomycin Urine Opiates Screen Urine Fentanyl Screen Ur Barbiturates Screen Phenytoin Ur Phencyclidine Scrn Ur Amphetamines Screen U Benzodiazepines Scrn Urine Cocaine Screen U Marijuana (THC) Screen Ethyl Alcohol Respiratory Panel Peter T.pallidum Ab (EIA) Adenovirus (Rapid PCR) B.pert (TEM-PCR) B.parapertussis DNA PCR C. pneumoniae DNA (PCR) Coronavirus OC43 (PCR) Coronavirus HKU1 (PCR) Coronavirus 229E (PCR) COVID-19 (KATELYNN) Negative COVID-19 Clin Com See Note Coronavirus NL63 (PCR) HIV 1&2 Ab/P24 Ag 4thGn Human Metapneumovir PCR Influenza A (RT-PCR) Influenza B (RT-PCR) M. pneumoniae (PCR) Parainfluenza 1 (PCR) Parainfluenza 2 (PCR) Parainfluenza 3 (PCR) Parainfluenza 4 (PCR) RSV (PCR) Entero/Rhino (PCR) SARS-CoV-2 RNA (RT-PCR) Blood Type Antibody Screen 03/03/22 03/04/22 03/05/22 15:57 07:10 07:52 WBC 12.4 H RBC 4.54 L Hgb 13.6 L Hct 41.0 L MCV 90.3 MCH 30.0 MCHC 33.2 RDW 12.4 Plt Count 276 MPV 8.8 L Immature Gran % (Auto) 0.2 Neut % (Auto) 59.0 Lymph % (Auto) 25.7 [place] % (Auto) 12.1 H Eos % (Auto) 2.5 Baso % (Auto) 0.5 Lymph # (Auto) 3.2 [place] # (Auto) 1.5 H Eos # (Auto) 0.3 Baso # (Auto) 0.1 Abs Immat Gran (auto) 0.02 Absolute Neuts (auto) 7.3 Absolute Nucleated RBC 0.000 Nucleated RBC % (auto) 0.0 Smear Tech's Comments VERIFIED ESR PT INR APTT O2 Saturation ABG pH at Pt Temp ABG pCO2 at Pt Temp ABG pO2 at Pt Temp ABG HCO3 ABG Base Excess (Actual) VBG pH VBG pCO2 VBG pO2 VBG HCO3 VBG O2 Saturation VBG Base Excess Sodium 138 Potassium 3.9 Chloride 105 Carbon Dioxide 21 L Anion Gap 16 BUN 7 L Creatinine 0.67 Estim Creat Clear Calc 106.9 Estimated GFR > 60 POC Glucose Random Glucose 90 Fasting Glucose Lactic Acid Lactic Acid F/U @ 2Hr Calcium 8.8 D Phosphorus Magnesium Total Bilirubin Direct Bilirubin AST ALT Alkaline Phosphatase Ammonia Total Creatine Kinase 1505 H Troponin I High Sens C-Reactive Protein Total Protein Albumin Triglycerides Vitamin B1 Vitamin B12 Folate Procalcitonin TSH Urine Color Urine Appearance Urine pH Ur Specific [place] Urine Protein Urine Glucose (UA) Urine Ketones Urine Blood Urine Nitrite Ur Leukocyte Esterase Urine RBC Urine WBC Ur Squamous Epith Cells Urine Bacteria Hyaline Casts Urine Creatinine CSF Tube Number CSF Volume CSF Appearance CSF Color CSF WBC CSF RBC CSF Neutrophils CSF Lymphocytes CSF Appearance (b) CSF Glucose CSF Total Protein CSF C.neoform/gat PCR CSF CMV DNA (PCR) CSF Enterovirus (PCR) CSF E. coli K1 (PCR) CSF H. influenzae (PCR) CSF HSV I (PCR) CSF HSV II (PCR) CSF HHV 6 (PCR) CSF L.monocytogenes PCR CSF N. meningitidis PCR CSF Parechovirus (PCR) CSF S. agalactiae (PCR) CSF S. pneumoniae (PCR) CSF VZV (PCR) Nasal Screen MRSA (PCR) Nasal S. aureus Screen Nasal MRSA/S.aureus Interp Stool Occult Blood Vancomycin Trough Random Vancomycin Urine Opiates Screen Urine Fentanyl Screen Ur Barbiturates Screen Phenytoin 1.3 L* Ur Phencyclidine Scrn Ur Amphetamines Screen U Benzodiazepines Scrn Urine Cocaine Screen U Marijuana (THC) Screen Ethyl Alcohol Respiratory Panel Peter T.pallidum Ab (EIA) Adenovirus (Rapid PCR) B.pert (TEM-PCR) B.parapertussis DNA PCR C. pneumoniae DNA (PCR) Coronavirus OC43 (PCR) Coronavirus HKU1 (PCR) Coronavirus 229E (PCR) COVID-19 (KATELYNN) COVID-19 Clin Com Coronavirus NL63 (PCR) HIV 1&2 Ab/P24 Ag 4thGn Human Metapneumovir PCR Influenza A (RT-PCR) Influenza B (RT-PCR) M. pneumoniae (PCR) Parainfluenza 1 (PCR) Parainfluenza 2 (PCR) Parainfluenza 3 (PCR) Parainfluenza 4 (PCR) RSV (PCR) Entero/Rhino (PCR) SARS-CoV-2 RNA (RT-PCR) Blood Type Antibody Screen 03/05/22 03/06/22 03/06/22 07:52 08:14 08:14 WBC 10.1 RBC 4.28 L Hgb 12.8 L Hct 38.7 L MCV 90.4 MCH 29.9 MCHC 33.1 RDW 12.5 Plt Count 276 MPV 8.7 L Immature Gran % (Auto) 0.2 Neut % (Auto) 57.7 Lymph % (Auto) 25.0 [place] % (Auto) 12.2 H Eos % (Auto) 4.5 H Baso % (Auto) 0.4 Lymph # (Auto) 2.5 [place] # (Auto) 1.2 Eos # (Auto) 0.5 H Baso # (Auto) 0.0 Abs Immat Gran (auto) 0.02 Absolute Neuts (auto) 5.8 Absolute Nucleated RBC 0.000 Nucleated RBC % (auto) 0.0 Smear Tech's Comments ESR PT INR APTT O2 Saturation ABG pH at Pt Temp ABG pCO2 at Pt Temp ABG pO2 at Pt Temp ABG HCO3 ABG Base Excess (Actual) VBG pH VBG pCO2 VBG pO2 VBG HCO3 VBG O2 Saturation VBG Base Excess Sodium 136 138 Potassium 4.8 D 3.8 D Chloride 102 102 Carbon Dioxide 18 L 23 Anion Gap 21 H 17 BUN 7 L 12 D Creatinine 0.70 0.73 Estim Creat Clear Calc 102.4 98.1 Estimated GFR > 60 > 60 POC Glucose Random Glucose Fasting Glucose 82 92 Lactic Acid Lactic Acid F/U @ 2Hr Calcium 8.9 9.1 Phosphorus Magnesium Total Bilirubin 0.8 0.6 Direct Bilirubin AST 30 19 ALT 13 9 Alkaline Phosphatase 98 91 Ammonia Total Creatine Kinase Troponin I High Sens C-Reactive Protein Total Protein 7.3 7.0 Albumin 3.7 3.6 Triglycerides Vitamin B1 Vitamin B12 Folate Procalcitonin TSH Urine Color Urine Appearance Urine pH Ur Specific [place] Urine Protein Urine Glucose (UA) Urine Ketones Urine Blood Urine Nitrite Ur Leukocyte Esterase Urine RBC Urine WBC Ur Squamous Epith Cells Urine Bacteria Hyaline Casts Urine Creatinine CSF Tube Number CSF Volume CSF Appearance CSF Color CSF WBC CSF RBC CSF Neutrophils CSF Lymphocytes CSF Appearance (b) CSF Glucose CSF Total Protein CSF C.neoform/gat PCR CSF CMV DNA (PCR) CSF Enterovirus (PCR) CSF E. coli K1 (PCR) CSF H. influenzae (PCR) CSF HSV I (PCR) CSF HSV II (PCR) CSF HHV 6 (PCR) CSF L.monocytogenes PCR CSF N. meningitidis PCR CSF Parechovirus (PCR) CSF S. agalactiae (PCR) CSF S. pneumoniae (PCR) CSF VZV (PCR) Nasal Screen MRSA (PCR) Nasal S. aureus Screen Nasal MRSA/S.aureus Interp Stool Occult Blood Vancomycin Trough Random Vancomycin Urine Opiates Screen Urine Fentanyl Screen Ur Barbiturates Screen Phenytoin Ur Phencyclidine Scrn Ur Amphetamines Screen U Benzodiazepines Scrn Urine Cocaine Screen U Marijuana (THC) Screen Ethyl Alcohol Respiratory Panel Peter T.pallidum Ab (EIA) Adenovirus (Rapid PCR) B.pert (TEM-PCR) B.parapertussis DNA PCR C. pneumoniae DNA (PCR) Coronavirus OC43 (PCR) Coronavirus HKU1 (PCR) Coronavirus 229E (PCR) COVID-19 (KATELYNN) COVID-19 Clin Com Coronavirus NL63 (PCR) HIV 1&2 Ab/P24 Ag 4thGn Human Metapneumovir PCR Influenza A (RT-PCR) Influenza B (RT-PCR) M. pneumoniae (PCR) Parainfluenza 1 (PCR) Parainfluenza 2 (PCR) Parainfluenza 3 (PCR) Parainfluenza 4 (PCR) RSV (PCR) Entero/Rhino (PCR) SARS-CoV-2 RNA (RT-PCR) Blood Type Antibody Screen 03/06/22 03/06/22 03/06/22 08:15 09:51 09:57 WBC RBC Hgb Hct MCV MCH MCHC RDW Plt Count MPV Immature Gran % (Auto) Neut % (Auto) Lymph % (Auto) [place] % (Auto) Eos % (Auto) Baso % (Auto) Lymph # (Auto) [place] # (Auto) Eos # (Auto) Baso # (Auto) Abs Immat Gran (auto) Absolute Neuts (auto) Absolute Nucleated RBC Nucleated RBC % (auto) Smear Tech's Comments ESR PT INR APTT O2 Saturation 93.0 ABG pH at Pt Temp 7.42 ABG pCO2 at Pt Temp 30 L ABG pO2 at Pt Temp 75 L ABG HCO3 20 L ABG Base Excess (Actual) -2.9 VBG pH VBG pCO2 VBG pO2 VBG HCO3 VBG O2 Saturation VBG Base Excess Sodium Potassium Chloride Carbon Dioxide Anion Gap BUN Creatinine Estim Creat Clear Calc Estimated GFR POC Glucose Random Glucose Fasting Glucose Lactic Acid Lactic Acid F/U @ 2Hr Calcium Phosphorus Magnesium Total Bilirubin Direct Bilirubin AST ALT Alkaline Phosphatase Ammonia 31 Total Creatine Kinase 615 H D Troponin I High Sens C-Reactive Protein Total Protein Albumin Triglycerides Vitamin B1 Vitamin B12 Folate Procalcitonin TSH Urine Color Urine Appearance Urine pH Ur Specific [place] Urine Protein Urine Glucose (UA) Urine Ketones Urine Blood Urine Nitrite Ur Leukocyte Esterase Urine RBC Urine WBC Ur Squamous Epith Cells Urine Bacteria Hyaline Casts Urine Creatinine CSF Tube Number CSF Volume CSF Appearance CSF Color CSF WBC CSF RBC CSF Neutrophils CSF Lymphocytes CSF Appearance (b) CSF Glucose CSF Total Protein CSF C.neoform/gat PCR CSF CMV DNA (PCR) CSF Enterovirus (PCR) CSF E. coli K1 (PCR) CSF H. influenzae (PCR) CSF HSV I (PCR) CSF HSV II (PCR) CSF HHV 6 (PCR) CSF L.monocytogenes PCR CSF N. meningitidis PCR CSF Parechovirus (PCR) CSF S. agalactiae (PCR) CSF S. pneumoniae (PCR) CSF VZV (PCR) Nasal Screen MRSA (PCR) Nasal S. aureus Screen Nasal MRSA/S.aureus Interp Stool Occult Blood Vancomycin Trough Random Vancomycin Urine Opiates Screen Urine Fentanyl Screen Ur Barbiturates Screen Phenytoin Ur Phencyclidine Scrn Ur Amphetamines Screen U Benzodiazepines Scrn Urine Cocaine Screen U Marijuana (THC) Screen Ethyl Alcohol Respiratory Panel Peter T.pallidum Ab (EIA) Adenovirus (Rapid PCR) B.pert (TEM-PCR) B.parapertussis DNA PCR C. pneumoniae DNA (PCR) Coronavirus OC43 (PCR) Coronavirus HKU1 (PCR) Coronavirus 229E (PCR) COVID-19 (KATELYNN) COVID-19 Clin Com Coronavirus NL63 (PCR) HIV 1&2 Ab/P24 Ag 4thGn Human Metapneumovir PCR Influenza A (RT-PCR) Influenza B (RT-PCR) M. pneumoniae (PCR) Parainfluenza 1 (PCR) Parainfluenza 2 (PCR) Parainfluenza 3 (PCR) Parainfluenza 4 (PCR) RSV (PCR) Entero/Rhino (PCR) SARS-CoV-2 RNA (RT-PCR) Blood Type Antibody Screen 03/07/22 03/07/22 03/11/22 07:07 08:24 09:20 WBC 9.1 8.1 RBC 4.43 L 4.18 L Hgb 13.0 L 12.3 L Hct 40.1 L 38.4 L MCV 90.5 91.9 MCH 29.3 29.4 MCHC 32.4 32.0 RDW 12.6 12.3 Plt Count 311 352 MPV 8.8 L 8.3 L Immature Gran % (Auto) 0.3 0.1 Neut % (Auto) 53.8 55.8 Lymph % (Auto) 27.6 25.9 [place] % (Auto) 12.3 H 11.3 H Eos % (Auto) 5.5 H 6.3 H Baso % (Auto) 0.5 0.6 Lymph # (Auto) 2.5 2.1 [place] # (Auto) 1.1 0.9 Eos # (Auto) 0.5 H 0.5 H Baso # (Auto) 0.1 0.1 Abs Immat Gran (auto) 0.03 0.01 Absolute Neuts (auto) 4.9 4.5 Absolute Nucleated RBC 0.000 0.000 Nucleated RBC % (auto) 0.0 0.0 Smear Tech's Comments ESR PT INR APTT O2 Saturation ABG pH at Pt Temp ABG pCO2 at Pt Temp ABG pO2 at Pt Temp ABG HCO3 ABG Base Excess (Actual) VBG pH VBG pCO2 VBG pO2 VBG HCO3 VBG O2 Saturation VBG Base Excess Sodium 136 Potassium 4.8 D Chloride 102 Carbon Dioxide 20 L Anion Gap 19 BUN 9 Creatinine 0.69 Estim Creat Clear Calc 103.8 Estimated GFR > 60 POC Glucose Random Glucose TNP Fasting Glucose 119 H Lactic Acid Lactic Acid F/U @ 2Hr Calcium 8.9 Phosphorus Magnesium Total Bilirubin 0.4 Direct Bilirubin AST 24 ALT 10 Alkaline Phosphatase 89 Ammonia Total Creatine Kinase Troponin I High Sens C-Reactive Protein Total Protein 7.4 Albumin 3.5 Triglycerides Vitamin B1 Vitamin B12 Folate Procalcitonin TSH Urine Color Urine Appearance Urine pH Ur Specific [place] Urine Protein Urine Glucose (UA) Urine Ketones Urine Blood Urine Nitrite Ur Leukocyte Esterase Urine RBC Urine WBC Ur Squamous Epith Cells Urine Bacteria Hyaline Casts Urine Creatinine CSF Tube Number CSF Volume CSF Appearance CSF Color CSF WBC CSF RBC CSF Neutrophils CSF Lymphocytes CSF Appearance (b) CSF Glucose CSF Total Protein CSF C.neoform/gat PCR CSF CMV DNA (PCR) CSF Enterovirus (PCR) CSF E. coli K1 (PCR) CSF H. influenzae (PCR) CSF HSV I (PCR) CSF HSV II (PCR) CSF HHV 6 (PCR) CSF L.monocytogenes PCR CSF N. meningitidis PCR CSF Parechovirus (PCR) CSF S. agalactiae (PCR) CSF S. pneumoniae (PCR) CSF VZV (PCR) Nasal Screen MRSA (PCR) Nasal S. aureus Screen Nasal MRSA/S.aureus Interp Stool Occult Blood Vancomycin Trough Random Vancomycin Urine Opiates Screen Urine Fentanyl Screen Ur Barbiturates Screen Phenytoin Ur Phencyclidine Scrn Ur Amphetamines Screen U Benzodiazepines Scrn Urine Cocaine Screen U Marijuana (THC) Screen Ethyl Alcohol Respiratory Panel Peter T.pallidum Ab (EIA) Adenovirus (Rapid PCR) B.pert (TEM-PCR) B.parapertussis DNA PCR C. pneumoniae DNA (PCR) Coronavirus OC43 (PCR) Coronavirus HKU1 (PCR) Coronavirus 229E (PCR) COVID-19 (KATELYNN) COVID-19 Clin Com Coronavirus NL63 (PCR) HIV 1&2 Ab/P24 Ag 4thGn Human Metapneumovir PCR Influenza A (RT-PCR) Influenza B (RT-PCR) M. pneumoniae (PCR) Parainfluenza 1 (PCR) Parainfluenza 2 (PCR) Parainfluenza 3 (PCR) Parainfluenza 4 (PCR) RSV (PCR) Entero/Rhino (PCR) SARS-CoV-2 RNA (RT-PCR) Blood Type Antibody Screen 03/11/22 03/11/22 03/11/22 09:20 09:20 09:20 WBC RBC Hgb Hct MCV MCH MCHC RDW Plt Count MPV Immature Gran % (Auto) Neut % (Auto) Lymph % (Auto) [place] % (Auto) Eos % (Auto) Baso % (Auto) Lymph # (Auto) [place] # (Auto) Eos # (Auto) Baso # (Auto) Abs Immat Gran (auto) Absolute Neuts (auto) Absolute Nucleated RBC Nucleated RBC % (auto) Smear Tech's Comments ESR PT INR APTT O2 Saturation ABG pH at Pt Temp ABG pCO2 at Pt Temp ABG pO2 at Pt Temp ABG HCO3 ABG Base Excess (Actual) VBG pH VBG pCO2 VBG pO2 VBG HCO3 VBG O2 Saturation VBG Base Excess Sodium 138 Potassium 4.9 Chloride 103 Carbon Dioxide 26 Anion Gap 14 BUN 9 Creatinine 0.62 Estim Creat Clear Calc 115.6 Estimated GFR > 60 POC Glucose Random Glucose 95 Fasting Glucose Lactic Acid 2.1 H* Lactic Acid F/U @ 2Hr Calcium 9.2 Phosphorus Magnesium Total Bilirubin 0.4 Direct Bilirubin 0.3 AST 31 ALT 17 Alkaline Phosphatase 88 Ammonia Total Creatine Kinase Troponin I High Sens C-Reactive Protein Total Protein 7.3 Albumin 3.4 L Triglycerides Vitamin B1 Vitamin B12 Folate Procalcitonin TSH Urine Color Urine Appearance Urine pH Ur Specific [place] Urine Protein Urine Glucose (UA) Urine Ketones Urine Blood Urine Nitrite Ur Leukocyte Esterase Urine RBC Urine WBC Ur Squamous Epith Cells Urine Bacteria Hyaline Casts Urine Creatinine CSF Tube Number CSF Volume CSF Appearance CSF Color CSF WBC CSF RBC CSF Neutrophils CSF Lymphocytes CSF Appearance (b) CSF Glucose CSF Total Protein CSF C.neoform/gat PCR CSF CMV DNA (PCR) CSF Enterovirus (PCR) CSF E. coli K1 (PCR) CSF H. influenzae (PCR) CSF HSV I (PCR) CSF HSV II (PCR) CSF HHV 6 (PCR) CSF L.monocytogenes PCR CSF N. meningitidis PCR CSF Parechovirus (PCR) CSF S. agalactiae (PCR) CSF S. pneumoniae (PCR) CSF VZV (PCR) Nasal Screen MRSA (PCR) Nasal S. aureus Screen Nasal MRSA/S.aureus Interp Stool Occult Blood Vancomycin Trough Random Vancomycin Urine Opiates Screen Urine Fentanyl Screen Ur Barbiturates Screen Phenytoin Ur Phencyclidine Scrn Ur Amphetamines Screen U Benzodiazepines Scrn Urine Cocaine Screen U Marijuana (THC) Screen Ethyl Alcohol Respiratory Panel Peter T.pallidum Ab (EIA) Adenovirus (Rapid PCR) B.pert (TEM-PCR) B.parapertussis DNA PCR C. pneumoniae DNA (PCR) Coronavirus OC43 (PCR) Coronavirus HKU1 (PCR) Coronavirus 229E (PCR) COVID-19 (KATELYNN) COVID-19 Clin Com Coronavirus NL63 (PCR) HIV 1&2 Ab/P24 Ag 4thGn Human Metapneumovir PCR Influenza A (RT-PCR) Influenza B (RT-PCR) M. pneumoniae (PCR) Parainfluenza 1 (PCR) Parainfluenza 2 (PCR) Parainfluenza 3 (PCR) Parainfluenza 4 (PCR) RSV (PCR) Entero/Rhino (PCR) SARS-CoV-2 RNA (RT-PCR) Blood Type Antibody Screen 03/11/22 03/11/22 03/11/22 09:20 09:27 11:37 WBC RBC Hgb Hct MCV MCH MCHC RDW Plt Count MPV Immature Gran % (Auto) Neut % (Auto) Lymph % (Auto) [place] % (Auto) Eos % (Auto) Baso % (Auto) Lymph # (Auto) [place] # (Auto) Eos # (Auto) Baso # (Auto) Abs Immat Gran (auto) Absolute Neuts (auto) Absolute Nucleated RBC Nucleated RBC % (auto) Smear Tech's Comments ESR PT INR APTT O2 Saturation ABG pH at Pt Temp ABG pCO2 at Pt Temp ABG pO2 at Pt Temp ABG HCO3 ABG Base Excess (Actual) VBG pH 7.35 VBG pCO2 40 VBG pO2 40 VBG HCO3 23 VBG O2 Saturation 56.0 VBG Base Excess -2.0 Sodium Potassium Chloride Carbon Dioxide Anion Gap BUN Creatinine Estim Creat Clear Calc Estimated GFR POC Glucose Random Glucose Fasting Glucose Lactic Acid Lactic Acid F/U @ 2Hr 0.7 Calcium Phosphorus Magnesium Total Bilirubin Direct Bilirubin AST ALT Alkaline Phosphatase Ammonia 30 Total Creatine Kinase Troponin I High Sens C-Reactive Protein Total Protein Albumin Triglycerides Vitamin B1 Vitamin B12 Folate Procalcitonin TSH Urine Color Urine Appearance Urine pH Ur Specific [place] Urine Protein Urine Glucose (UA) Urine Ketones Urine Blood Urine Nitrite Ur Leukocyte Esterase Urine RBC Urine WBC Ur Squamous Epith Cells Urine Bacteria Hyaline Casts Urine Creatinine CSF Tube Number CSF Volume CSF Appearance CSF Color CSF WBC CSF RBC CSF Neutrophils CSF Lymphocytes CSF Appearance (b) CSF Glucose CSF Total Protein CSF C.neoform/gat PCR CSF CMV DNA (PCR) CSF Enterovirus (PCR) CSF E. coli K1 (PCR) CSF H. influenzae (PCR) CSF HSV I (PCR) CSF HSV II (PCR) CSF HHV 6 (PCR) CSF L.monocytogenes PCR CSF N. meningitidis PCR CSF Parechovirus (PCR) CSF S. agalactiae (PCR) CSF S. pneumoniae (PCR) CSF VZV (PCR) Nasal Screen MRSA (PCR) Nasal S. aureus Screen Nasal MRSA/S.aureus Interp Stool Occult Blood Vancomycin Trough Random Vancomycin Urine Opiates Screen Urine Fentanyl Screen Ur Barbiturates Screen Phenytoin Ur Phencyclidine Scrn Ur Amphetamines Screen U Benzodiazepines Scrn Urine Cocaine Screen U Marijuana (THC) Screen Ethyl Alcohol Respiratory Panel Peter T.pallidum Ab (EIA) Adenovirus (Rapid PCR) B.pert (TEM-PCR) B.parapertussis DNA PCR C. pneumoniae DNA (PCR) Coronavirus OC43 (PCR) Coronavirus HKU1 (PCR) Coronavirus 229E (PCR) COVID-19 (KATELYNN) COVID-19 Clin Com Coronavirus NL63 (PCR) HIV 1&2 Ab/P24 Ag 4thGn Human Metapneumovir PCR Influenza A (RT-PCR) Influenza B (RT-PCR) M. pneumoniae (PCR) Parainfluenza 1 (PCR) Parainfluenza 2 (PCR) Parainfluenza 3 (PCR) Parainfluenza 4 (PCR) RSV (PCR) Entero/Rhino (PCR) SARS-CoV-2 RNA (RT-PCR) Blood Type Antibody Screen 03/12/22 03/13/22 03/13/22 15:37 07:50 07:50 WBC 8.8 RBC 4.32 L Hgb 12.6 L Hct 38.9 L MCV 90.0 MCH 29.2 MCHC 32.4 RDW 12.3 Plt Count 367 MPV 8.5 L Immature Gran % (Auto) Neut % (Auto) Lymph % (Auto) [place] % (Auto) Eos % (Auto) Baso % (Auto) Lymph # (Auto) [place] # (Auto) Eos # (Auto) Baso # (Auto) Abs Immat Gran (auto) Absolute Neuts (auto) Absolute Nucleated RBC 0.000 Nucleated RBC % (auto) 0.0 Smear Tech's Comments ESR PT INR APTT O2 Saturation ABG pH at Pt Temp ABG pCO2 at Pt Temp ABG pO2 at Pt Temp ABG HCO3 ABG Base Excess (Actual) VBG pH VBG pCO2 VBG pO2 VBG HCO3 VBG O2 Saturation VBG Base Excess Sodium 143 Potassium 4.9 Chloride 112 H Carbon Dioxide 19 L Anion Gap 17 BUN 11 Creatinine 0.57 Estim Creat Clear Calc 125.7 Estimated GFR > 60 POC Glucose 126 H Random Glucose 110 Fasting Glucose Lactic Acid Lactic Acid F/U @ 2Hr Calcium 9.0 Phosphorus Magnesium Total Bilirubin Direct Bilirubin AST ALT Alkaline Phosphatase Ammonia Total Creatine Kinase Troponin I High Sens C-Reactive Protein Total Protein Albumin Triglycerides Vitamin B1 Vitamin B12 Folate Procalcitonin TSH Urine Color Urine Appearance Urine pH Ur Specific [place] Urine Protein Urine Glucose (UA) Urine Ketones Urine Blood Urine Nitrite Ur Leukocyte Esterase Urine RBC Urine WBC Ur Squamous Epith Cells Urine Bacteria Hyaline Casts Urine Creatinine CSF Tube Number CSF Volume CSF Appearance CSF Color CSF WBC CSF RBC CSF Neutrophils CSF Lymphocytes CSF Appearance (b) CSF Glucose CSF Total Protein CSF C.neoform/gat PCR CSF CMV DNA (PCR) CSF Enterovirus (PCR) CSF E. coli K1 (PCR) CSF H. influenzae (PCR) CSF HSV I (PCR) CSF HSV II (PCR) CSF HHV 6 (PCR) CSF L.monocytogenes PCR CSF N. meningitidis PCR CSF Parechovirus (PCR) CSF S. agalactiae (PCR) CSF S. pneumoniae (PCR) CSF VZV (PCR) Nasal Screen MRSA (PCR) Nasal S. aureus Screen Nasal MRSA/S.aureus Interp Stool Occult Blood Vancomycin Trough Random Vancomycin Urine Opiates Screen Urine Fentanyl Screen Ur Barbiturates Screen Phenytoin Ur Phencyclidine Scrn Ur Amphetamines Screen U Benzodiazepines Scrn Urine Cocaine Screen U Marijuana (THC) Screen Ethyl Alcohol Respiratory Panel Peter T.pallidum Ab (EIA) Adenovirus (Rapid PCR) B.pert (TEM-PCR) B.parapertussis DNA PCR C. pneumoniae DNA (PCR) Coronavirus OC43 (PCR) Coronavirus HKU1 (PCR) Coronavirus 229E (PCR) COVID-19 (KATELYNN) COVID-19 Clin Com Coronavirus NL63 (PCR) HIV 1&2 Ab/P24 Ag 4thGn Human Metapneumovir PCR Influenza A (RT-PCR) Influenza B (RT-PCR) M. pneumoniae (PCR) Parainfluenza 1 (PCR) Parainfluenza 2 (PCR) Parainfluenza 3 (PCR) Parainfluenza 4 (PCR) RSV (PCR) Entero/Rhino (PCR) SARS-CoV-2 RNA (RT-PCR) Blood Type Antibody Screen 03/14/22 03/15/22 03/15/22 05:58 05:49 05:49 WBC 9.5 RBC 4.36 L Hgb 12.9 L Hct 39.7 L MCV 91.1 MCH 29.6 MCHC 32.5 RDW 12.4 Plt Count 387 MPV 8.5 L Immature Gran % (Auto) Neut % (Auto) Lymph % (Auto) [place] % (Auto) Eos % (Auto) Baso % (Auto) Lymph # (Auto) [place] # (Auto) Eos # (Auto) Baso # (Auto) Abs Immat Gran (auto) Absolute Neuts (auto) Absolute Nucleated RBC 0.000 Nucleated RBC % (auto) 0.0 Smear Tech's Comments ESR PT INR APTT O2 Saturation ABG pH at Pt Temp ABG pCO2 at Pt Temp ABG pO2 at Pt Temp ABG HCO3 ABG Base Excess (Actual) VBG pH VBG pCO2 VBG pO2 VBG HCO3 VBG O2 Saturation VBG Base Excess Sodium 141 142 Potassium 4.0 4.0 Chloride 107 105 Carbon Dioxide 23 25 Anion Gap 15 16 BUN 11 14 Creatinine 0.65 0.69 Estim Creat Clear Calc 110.2 103.8 Estimated GFR > 60 > 60 POC Glucose Random Glucose 122 H 94 Fasting Glucose Lactic Acid Lactic Acid F/U @ 2Hr Calcium 9.4 9.3 Phosphorus Magnesium Total Bilirubin 0.4 Direct Bilirubin 0.3 AST 29 ALT 29 Alkaline Phosphatase 94 Ammonia Total Creatine Kinase Troponin I High Sens C-Reactive Protein Total Protein 7.2 Albumin 3.4 L Triglycerides Vitamin B1 Vitamin B12 Folate Procalcitonin TSH Urine Color Urine Appearance Urine pH Ur Specific [place] Urine Protein Urine Glucose (UA) Urine Ketones Urine Blood Urine Nitrite Ur Leukocyte Esterase Urine RBC Urine WBC Ur Squamous Epith Cells Urine Bacteria Hyaline Casts Urine Creatinine CSF Tube Number CSF Volume CSF Appearance CSF Color CSF WBC CSF RBC CSF Neutrophils CSF Lymphocytes CSF Appearance (b) CSF Glucose CSF Total Protein CSF C.neoform/gat PCR CSF CMV DNA (PCR) CSF Enterovirus (PCR) CSF E. coli K1 (PCR) CSF H. influenzae (PCR) CSF HSV I (PCR) CSF HSV II (PCR) CSF HHV 6 (PCR) CSF L.monocytogenes PCR CSF N. meningitidis PCR CSF Parechovirus (PCR) CSF S. agalactiae (PCR) CSF S. pneumoniae (PCR) CSF VZV (PCR) Nasal Screen MRSA (PCR) Nasal S. aureus Screen Nasal MRSA/S.aureus Interp Stool Occult Blood Vancomycin Trough Random Vancomycin Urine Opiates Screen Urine Fentanyl Screen Ur Barbiturates Screen Phenytoin Ur Phencyclidine Scrn Ur Amphetamines Screen U Benzodiazepines Scrn Urine Cocaine Screen U Marijuana (THC) Screen Ethyl Alcohol Respiratory Panel Peter T.pallidum Ab (EIA) Adenovirus (Rapid PCR) B.pert (TEM-PCR) B.parapertussis DNA PCR C. pneumoniae DNA (PCR) Coronavirus OC43 (PCR) Coronavirus HKU1 (PCR) Coronavirus 229E (PCR) COVID-19 (KATELYNN) COVID-19 Clin Com Coronavirus NL63 (PCR) HIV 1&2 Ab/P24 Ag 4thGn Human Metapneumovir PCR Influenza A (RT-PCR) Influenza B (RT-PCR) M. pneumoniae (PCR) Parainfluenza 1 (PCR) Parainfluenza 2 (PCR) Parainfluenza 3 (PCR) Parainfluenza 4 (PCR) RSV (PCR) Entero/Rhino (PCR) SARS-CoV-2 RNA (RT-PCR) Blood Type Antibody Screen 03/16/22 03/16/22 03/16/22 06:35 06:35 06:35 WBC RBC Hgb Hct MCV MCH MCHC RDW Plt Count MPV Immature Gran % (Auto) Neut % (Auto) Lymph % (Auto) [place] % (Auto) Eos % (Auto) Baso % (Auto) Lymph # (Auto) [place] # (Auto) Eos # (Auto) Baso # (Auto) Abs Immat Gran (auto) Absolute Neuts (auto) Absolute Nucleated RBC Nucleated RBC % (auto) Smear Tech's Comments ESR 67 H PT INR APTT O2 Saturation ABG pH at Pt Temp ABG pCO2 at Pt Temp ABG pO2 at Pt Temp ABG HCO3 ABG Base Excess (Actual) VBG pH VBG pCO2 VBG pO2 VBG HCO3 VBG O2 Saturation VBG Base Excess Sodium Potassium Chloride Carbon Dioxide Anion Gap BUN Creatinine Estim Creat Clear Calc Estimated GFR POC Glucose Random Glucose Fasting Glucose Lactic Acid Lactic Acid F/U @ 2Hr Calcium Phosphorus Magnesium Total Bilirubin Direct Bilirubin AST ALT Alkaline Phosphatase Ammonia Total Creatine Kinase Troponin I High Sens C-Reactive Protein 6.53 H Total Protein Albumin Triglycerides Vitamin B1 Vitamin B12 > 2000 H Folate 19.5 Procalcitonin TSH Urine Color Urine Appearance Urine pH Ur Specific [place] Urine Protein Urine Glucose (UA) Urine Ketones Urine Blood Urine Nitrite Ur Leukocyte Esterase Urine RBC Urine WBC Ur Squamous Epith Cells Urine Bacteria Hyaline Casts Urine Creatinine CSF Tube Number CSF Volume CSF Appearance CSF Color CSF WBC CSF RBC CSF Neutrophils CSF Lymphocytes CSF Appearance (b) CSF Glucose CSF Total Protein CSF C.neoform/gat PCR CSF CMV DNA (PCR) CSF Enterovirus (PCR) CSF E. coli K1 (PCR) CSF H. influenzae (PCR) CSF HSV I (PCR) CSF HSV II (PCR) CSF HHV 6 (PCR) CSF L.monocytogenes PCR CSF N. meningitidis PCR CSF Parechovirus (PCR) CSF S. agalactiae (PCR) CSF S. pneumoniae (PCR) CSF VZV (PCR) Nasal Screen MRSA (PCR) Nasal S. aureus Screen Nasal MRSA/S.aureus Interp Stool Occult Blood Vancomycin Trough Random Vancomycin Urine Opiates Screen Urine Fentanyl Screen Ur Barbiturates Screen Phenytoin Ur Phencyclidine Scrn Ur Amphetamines Screen U Benzodiazepines Scrn Urine Cocaine Screen U Marijuana (THC) Screen Ethyl Alcohol Respiratory Panel Peter T.pallidum Ab (EIA) Adenovirus (Rapid PCR) B.pert (TEM-PCR) B.parapertussis DNA PCR C. pneumoniae DNA (PCR) Coronavirus OC43 (PCR) Coronavirus HKU1 (PCR) Coronavirus 229E (PCR) COVID-19 (KATELYNN) COVID-19 Clin Com Coronavirus NL63 (PCR) HIV 1&2 Ab/P24 Ag 4thGn Human Metapneumovir PCR Influenza A (RT-PCR) Influenza B (RT-PCR) M. pneumoniae (PCR) Parainfluenza 1 (PCR) Parainfluenza 2 (PCR) Parainfluenza 3 (PCR) Parainfluenza 4 (PCR) RSV (PCR) Entero/Rhino (PCR) SARS-CoV-2 RNA (RT-PCR) Blood Type Antibody Screen 03/18/22 03/18/22 03/18/22 05:55 05:55 05:55 WBC 12.7 H RBC 4.64 Hgb 13.4 L Hct 42.5 MCV 91.6 MCH 28.9 MCHC 31.5 RDW 12.5 Plt Count 414 H MPV 8.4 L Immature Gran % (Auto) Neut % (Auto) Lymph % (Auto) [place] % (Auto) Eos % (Auto) Baso % (Auto) Lymph # (Auto) [place] # (Auto) Eos # (Auto) Baso # (Auto) Abs Immat Gran (auto) Absolute Neuts (auto) Absolute Nucleated RBC 0.000 Nucleated RBC % (auto) 0.0 Smear Tech's Comments ESR PT INR APTT O2 Saturation ABG pH at Pt Temp ABG pCO2 at Pt Temp ABG pO2 at Pt Temp ABG HCO3 ABG Base Excess (Actual) VBG pH VBG pCO2 VBG pO2 VBG HCO3 VBG O2 Saturation VBG Base Excess Sodium 139 Potassium 4.4 Chloride 104 Carbon Dioxide 27 Anion Gap 12 BUN 17 H Creatinine 0.71 Estim Creat Clear Calc 100.9 Estimated GFR > 60 POC Glucose Random Glucose 114 Fasting Glucose Lactic Acid Lactic Acid F/U @ 2Hr Calcium 9.4 Phosphorus Magnesium 1.9 Total Bilirubin 0.5 Direct Bilirubin 0.4 AST 29 ALT 38 Alkaline Phosphatase 110 Ammonia Total Creatine Kinase Troponin I High Sens C-Reactive Protein Total Protein 7.8 Albumin 3.6 Triglycerides Vitamin B1 Vitamin B12 Folate Procalcitonin TSH Urine Color Urine Appearance Urine pH Ur Specific [place] Urine Protein Urine Glucose (UA) Urine Ketones Urine Blood Urine Nitrite Ur Leukocyte Esterase Urine RBC Urine WBC Ur Squamous Epith Cells Urine Bacteria Hyaline Casts Urine Creatinine CSF Tube Number CSF Volume CSF Appearance CSF Color CSF WBC CSF RBC CSF Neutrophils CSF Lymphocytes CSF Appearance (b) CSF Glucose CSF Total Protein CSF C.neoform/gat PCR CSF CMV DNA (PCR) CSF Enterovirus (PCR) CSF E. coli K1 (PCR) CSF H. influenzae (PCR) CSF HSV I (PCR) CSF HSV II (PCR) CSF HHV 6 (PCR) CSF L.monocytogenes PCR CSF N. meningitidis PCR CSF Parechovirus (PCR) CSF S. agalactiae (PCR) CSF S. pneumoniae (PCR) CSF VZV (PCR) Nasal Screen MRSA (PCR) Nasal S. aureus Screen Nasal MRSA/S.aureus Interp Stool Occult Blood Vancomycin Trough Random Vancomycin Urine Opiates Screen Urine Fentanyl Screen Ur Barbiturates Screen Phenytoin Ur Phencyclidine Scrn Ur Amphetamines Screen U Benzodiazepines Scrn Urine Cocaine Screen U Marijuana (THC) Screen Ethyl Alcohol Respiratory Panel Peter T.pallidum Ab (EIA) Adenovirus (Rapid PCR) B.pert (TEM-PCR) B.parapertussis DNA PCR C. pneumoniae DNA (PCR) Coronavirus OC43 (PCR) Coronavirus HKU1 (PCR) Coronavirus 229E (PCR) COVID-19 (KATELYNN) COVID-19 Clin Com Coronavirus NL63 (PCR) HIV 1&2 Ab/P24 Ag 4thGn Human Metapneumovir PCR Influenza A (RT-PCR) Influenza B (RT-PCR) M. pneumoniae (PCR) Parainfluenza 1 (PCR) Parainfluenza 2 (PCR) Parainfluenza 3 (PCR) Parainfluenza 4 (PCR) RSV (PCR) Entero/Rhino (PCR) SARS-CoV-2 RNA (RT-PCR) Blood Type Antibody Screen 03/18/22 03/19/22 03/20/22 06:24 06:41 05:57 WBC 12.8 H 11.8 H RBC 4.47 L 4.59 L Hgb 13.2 L 13.8 L Hct 40.8 L 41.2 L MCV 91.3 89.8 MCH 29.5 30.1 MCHC 32.4 33.5 RDW 12.5 12.5 Plt Count 410 H 395 MPV 8.4 L 9.1 L Immature Gran % (Auto) Neut % (Auto) Lymph % (Auto) [place] % (Auto) Eos % (Auto) Baso % (Auto) Lymph # (Auto) [place] # (Auto) Eos # (Auto) Baso # (Auto) Abs Immat Gran (auto) Absolute Neuts (auto) Absolute Nucleated RBC 0.000 0.000 Nucleated RBC % (auto) 0.0 0.0 Smear Tech's Comments ESR PT INR APTT O2 Saturation ABG pH at Pt Temp ABG pCO2 at Pt Temp ABG pO2 at Pt Temp ABG HCO3 ABG Base Excess (Actual) VBG pH VBG pCO2 VBG pO2 VBG HCO3 VBG O2 Saturation VBG Base Excess Sodium Potassium Chloride Carbon Dioxide Anion Gap BUN Creatinine Estim Creat Clear Calc Estimated GFR POC Glucose Random Glucose Fasting Glucose Lactic Acid Lactic Acid F/U @ 2Hr Calcium Phosphorus Magnesium Total Bilirubin Direct Bilirubin AST ALT Alkaline Phosphatase Ammonia 29 Total Creatine Kinase Troponin I High Sens C-Reactive Protein Total Protein Albumin Triglycerides Vitamin B1 Vitamin B12 Folate Procalcitonin TSH Urine Color Urine Appearance Urine pH Ur Specific [place] Urine Protein Urine Glucose (UA) Urine Ketones Urine Blood Urine Nitrite Ur Leukocyte Esterase Urine RBC Urine WBC Ur Squamous Epith Cells Urine Bacteria Hyaline Casts Urine Creatinine CSF Tube Number CSF Volume CSF Appearance CSF Color CSF WBC CSF RBC CSF Neutrophils CSF Lymphocytes CSF Appearance (b) CSF Glucose CSF Total Protein CSF C.neoform/gat PCR CSF CMV DNA (PCR) CSF Enterovirus (PCR) CSF E. coli K1 (PCR) CSF H. influenzae (PCR) CSF HSV I (PCR) CSF HSV II (PCR) CSF HHV 6 (PCR) CSF L.monocytogenes PCR CSF N. meningitidis PCR CSF Parechovirus (PCR) CSF S. agalactiae (PCR) CSF S. pneumoniae (PCR) CSF VZV (PCR) Nasal Screen MRSA (PCR) Nasal S. aureus Screen Nasal MRSA/S.aureus Interp Stool Occult Blood Vancomycin Trough Random Vancomycin Urine Opiates Screen Urine Fentanyl Screen Ur Barbiturates Screen Phenytoin Ur Phencyclidine Scrn Ur Amphetamines Screen U Benzodiazepines Scrn Urine Cocaine Screen U Marijuana (THC) Screen Ethyl Alcohol Respiratory Panel Peter T.pallidum Ab (EIA) Adenovirus (Rapid PCR) B.pert (TEM-PCR) B.parapertussis DNA PCR C. pneumoniae DNA (PCR) Coronavirus OC43 (PCR) Coronavirus HKU1 (PCR) Coronavirus 229E (PCR) COVID-19 (KATELYNN) COVID-19 Clin Com Coronavirus NL63 (PCR) HIV 1&2 Ab/P24 Ag 4thGn Human Metapneumovir PCR Influenza A (RT-PCR) Influenza B (RT-PCR) M. pneumoniae (PCR) Parainfluenza 1 (PCR) Parainfluenza 2 (PCR) Parainfluenza 3 (PCR) Parainfluenza 4 (PCR) RSV (PCR) Entero/Rhino (PCR) SARS-CoV-2 RNA (RT-PCR) Blood Type Antibody Screen 03/20/22 03/20/22 03/20/22 05:57 05:57 08:39 WBC RBC Hgb Hct MCV MCH MCHC RDW Plt Count MPV Immature Gran % (Auto) Neut % (Auto) Lymph % (Auto) [place] % (Auto) Eos % (Auto) Baso % (Auto) Lymph # (Auto) [place] # (Auto) Eos # (Auto) Baso # (Auto) Abs Immat Gran (auto) Absolute Neuts (auto) Absolute Nucleated RBC Nucleated RBC % (auto) Smear Tech's Comments ESR PT 15.8 H INR 1.4 H APTT O2 Saturation ABG pH at Pt Temp ABG pCO2 at Pt Temp ABG pO2 at Pt Temp ABG HCO3 ABG Base Excess (Actual) VBG pH VBG pCO2 VBG pO2 VBG HCO3 VBG O2 Saturation VBG Base Excess Sodium 139 Potassium 4.7 Chloride 104 Carbon Dioxide 21 L Anion Gap 19 BUN 19 H Creatinine 0.70 Estim Creat Clear Calc 102.4 Estimated GFR > 60 POC Glucose Random Glucose 87 Fasting Glucose Lactic Acid Lactic Acid F/U @ 2Hr Calcium 9.9 Phosphorus Magnesium Total Bilirubin Direct Bilirubin AST ALT Alkaline Phosphatase Ammonia Total Creatine Kinase Troponin I High Sens C-Reactive Protein Total Protein Albumin Triglycerides Vitamin B1 Vitamin B12 Folate Procalcitonin TSH Cancelled 2.29 Urine Color Urine Appearance Urine pH Ur Specific Ermine Urine Protein Urine Glucose (UA) Urine Ketones Urine Blood Urine Nitrite Ur Leukocyte Esterase Urine RBC Urine WBC Ur Squamous Epith Cells Urine Bacteria Hyaline Casts Urine Creatinine CSF Tube Number CSF Volume CSF Appearance CSF Color CSF WBC CSF RBC CSF Neutrophils CSF Lymphocytes CSF Appearance (b) CSF Glucose CSF Total Protein CSF C.neoform/gat PCR CSF CMV DNA (PCR) CSF Enterovirus (PCR) CSF E. coli K1 (PCR) CSF H. influenzae (PCR) CSF HSV I (PCR) CSF HSV II (PCR) CSF HHV 6 (PCR) CSF L.monocytogenes PCR CSF N. meningitidis PCR CSF Parechovirus (PCR) CSF S. agalactiae (PCR) CSF S. pneumoniae (PCR) CSF VZV (PCR) Nasal Screen MRSA (PCR) Nasal S. aureus Screen Nasal MRSA/S.aureus Interp Stool Occult Blood Vancomycin Trough Random Vancomycin Urine Opiates Screen Urine Fentanyl Screen Ur Barbiturates Screen Phenytoin Ur Phencyclidine Scrn Ur Amphetamines Screen U Benzodiazepines Scrn Urine Cocaine Screen U Marijuana (THC) Screen Ethyl Alcohol Respiratory Panel Peter T.pallidum Ab (EIA) Adenovirus (Rapid PCR) B.pert (TEM-PCR) B.parapertussis DNA PCR C. pneumoniae DNA (PCR) Coronavirus OC43 (PCR) Coronavirus HKU1 (PCR) Coronavirus 229E (PCR) COVID-19 (KATELYNN) COVID-19 Clin Com Coronavirus NL63 (PCR) HIV 1&2 Ab/P24 Ag 4thGn Human Metapneumovir PCR Influenza A (RT-PCR) Influenza B (RT-PCR) M. pneumoniae (PCR) Parainfluenza 1 (PCR) Parainfluenza 2 (PCR) Parainfluenza 3 (PCR) Parainfluenza 4 (PCR) RSV (PCR) Entero/Rhino (PCR) SARS-CoV-2 RNA (RT-PCR) Blood Type Antibody Screen 03/23/22 03/23/22 03/23/22 08:54 08:54 08:54 WBC 15.3 H RBC 5.02 Hgb 14.6 Hct 45.2 MCV 90.0 MCH 29.1 MCHC 32.3 RDW 12.6 Plt Count 443 H MPV 8.7 L Immature Gran % (Auto) Neut % (Auto) Lymph % (Auto) [place] % (Auto) Eos % (Auto) Baso % (Auto) Lymph # (Auto) [place] # (Auto) Eos # (Auto) Baso # (Auto) Abs Immat Gran (auto) Absolute Neuts (auto) Absolute Nucleated RBC 0.000 Nucleated RBC % (auto) 0.0 Smear Tech's Comments ESR PT INR APTT O2 Saturation ABG pH at Pt Temp ABG pCO2 at Pt Temp ABG pO2 at Pt Temp ABG HCO3 ABG Base Excess (Actual) VBG pH VBG pCO2 VBG pO2 VBG HCO3 VBG O2 Saturation VBG Base Excess Sodium Potassium Chloride Carbon Dioxide Anion Gap BUN Creatinine Estim Creat Clear Calc Estimated GFR POC Glucose Random Glucose Fasting Glucose Lactic Acid Lactic Acid F/U @ 2Hr Calcium Phosphorus Magnesium Total Bilirubin Direct Bilirubin AST ALT Alkaline Phosphatase Ammonia 35 Total Creatine Kinase Troponin I High Sens C-Reactive Protein Total Protein Albumin Triglycerides Vitamin B1 28 Vitamin B12 Folate Procalcitonin TSH Urine Color Urine Appearance Urine pH Ur Specific [place]rmine Urine Protein Urine Glucose (UA) Urine Ketones Urine Blood Urine Nitrite Ur Leukocyte Esterase Urine RBC Urine WBC Ur Squamous Epith Cells Urine Bacteria Hyaline Casts Urine Creatinine CSF Tube Number CSF Volume CSF Appearance CSF Color CSF WBC CSF RBC CSF Neutrophils CSF Lymphocytes CSF Appearance (b) CSF Glucose CSF Total Protein CSF C.neoform/gat PCR CSF CMV DNA (PCR) CSF Enterovirus (PCR) CSF E. coli K1 (PCR) CSF H. influenzae (PCR) CSF HSV I (PCR) CSF HSV II (PCR) CSF HHV 6 (PCR) CSF L.monocytogenes PCR CSF N. meningitidis PCR CSF Parechovirus (PCR) CSF S. agalactiae (PCR) CSF S. pneumoniae (PCR) CSF VZV (PCR) Nasal Screen MRSA (PCR) Nasal S. aureus Screen Nasal MRSA/S.aureus Interp Stool Occult Blood Vancomycin Trough Random Vancomycin Urine Opiates Screen Urine Fentanyl Screen Ur Barbiturates Screen Phenytoin Ur Phencyclidine Scrn Ur Amphetamines Screen U Benzodiazepines Scrn Urine Cocaine Screen U Marijuana (THC) Screen Ethyl Alcohol Respiratory Panel Peter T.pallidum Ab (EIA) Adenovirus (Rapid PCR) B.pert (TEM-PCR) B.parapertussis DNA PCR C. pneumoniae DNA (PCR) Coronavirus OC43 (PCR) Coronavirus HKU1 (PCR) Coronavirus 229E (PCR) COVID-19 (KATELYNN) COVID-19 Clin Com Coronavirus NL63 (PCR) HIV 1&2 Ab/P24 Ag 4thGn Human Metapneumovir PCR Influenza A (RT-PCR) Influenza B (RT-PCR) M. pneumoniae (PCR) Parainfluenza 1 (PCR) Parainfluenza 2 (PCR) Parainfluenza 3 (PCR) Parainfluenza 4 (PCR) RSV (PCR) Entero/Rhino (PCR) SARS-CoV-2 RNA (RT-PCR) Blood Type Antibody Screen 03/23/22 03/23/22 03/23/22 08:54 08:54 08:54 WBC RBC Hgb Hct MCV MCH MCHC RDW Plt Count MPV Immature Gran % (Auto) Neut % (Auto) Lymph % (Auto) [place] % (Auto) Eos % (Auto) Baso % (Auto) Lymph # (Auto) [place] # (Auto) Eos # (Auto) Baso # (Auto) Abs Immat Gran (auto) Absolute Neuts (auto) Absolute Nucleated RBC Nucleated RBC % (auto) Smear Tech's Comments ESR PT INR APTT O2 Saturation ABG pH at Pt Temp ABG pCO2 at Pt Temp ABG pO2 at Pt Temp ABG HCO3 ABG Base Excess (Actual) VBG pH VBG pCO2 VBG pO2 VBG HCO3 VBG O2 Saturation VBG Base Excess Sodium 143 Potassium 4.9 Chloride 108 Carbon Dioxide 24 Anion Gap 16 BUN 32 H Creatinine 0.85 Estim Creat Clear Calc 84.3 Estimated GFR > 60 POC Glucose Random Glucose 111 Fasting Glucose Lactic Acid Lactic Acid F/U @ 2Hr Calcium 10.4 H Phosphorus Magnesium Total Bilirubin 0.7 Direct Bilirubin AST 34 ALT 52 H Alkaline Phosphatase 120 H Ammonia Total Creatine Kinase Troponin I High Sens C-Reactive Protein Total Protein 8.4 H Albumin 3.8 Triglycerides Vitamin B1 Vitamin B12 Folate Procalcitonin TSH Urine Color Urine Appearance Urine pH Ur Specific [place]rmine Urine Protein Urine Glucose (UA) Urine Ketones Urine Blood Urine Nitrite Ur Leukocyte Esterase Urine RBC Urine WBC Ur Squamous Epith Cells Urine Bacteria Hyaline Casts Urine Creatinine CSF Tube Number CSF Volume CSF Appearance CSF Color CSF WBC CSF RBC CSF Neutrophils CSF Lymphocytes CSF Appearance (b) CSF Glucose CSF Total Protein CSF C.neoform/gat PCR CSF CMV DNA (PCR) CSF Enterovirus (PCR) CSF E. coli K1 (PCR) CSF H. influenzae (PCR) CSF HSV I (PCR) CSF HSV II (PCR) CSF HHV 6 (PCR) CSF L.monocytogenes PCR CSF N. meningitidis PCR CSF Parechovirus (PCR) CSF S. agalactiae (PCR) CSF S. pneumoniae (PCR) CSF VZV (PCR) Nasal Screen MRSA (PCR) Nasal S. aureus Screen Nasal MRSA/S.aureus Interp Stool Occult Blood Vancomycin Trough Random Vancomycin Urine Opiates Screen Urine Fentanyl Screen Ur Barbiturates Screen Phenytoin Ur Phencyclidine Scrn Ur Amphetamines Screen U Benzodiazepines Scrn Urine Cocaine Screen U Marijuana (THC) Screen Ethyl Alcohol Respiratory Panel Peter T.pallidum Ab (EIA) Nonreactive Adenovirus (Rapid PCR) B.pert (TEM-PCR) B.parapertussis DNA PCR C. pneumoniae DNA (PCR) Coronavirus OC43 (PCR) Coronavirus HKU1 (PCR) Coronavirus 229E (PCR) COVID-19 (KATELYNN) COVID-19 Clin Com Coronavirus NL63 (PCR) HIV 1&2 Ab/P24 Ag 4thGn Nonreactive Human Metapneumovir PCR Influenza A (RT-PCR) Influenza B (RT-PCR) M. pneumoniae (PCR) Parainfluenza 1 (PCR) Parainfluenza 2 (PCR) Parainfluenza 3 (PCR) Parainfluenza 4 (PCR) RSV (PCR) Entero/Rhino (PCR) SARS-CoV-2 RNA (RT-PCR) Blood Type Antibody Screen 03/23/22 03/23/22 03/23/22 13:14 13:14 14:30 WBC RBC Hgb Hct MCV MCH MCHC RDW Plt Count MPV Immature Gran % (Auto) Neut % (Auto) Lymph % (Auto) [place] % (Auto) Eos % (Auto) Baso % (Auto) Lymph # (Auto) [place] # (Auto) Eos # (Auto) Baso # (Auto) Abs Immat Gran (auto) Absolute Neuts (auto) Absolute Nucleated RBC Nucleated RBC % (auto) Smear Tech's Comments ESR PT 15.1 H INR 1.3 H APTT Cancelled 33.2 D O2 Saturation ABG pH at Pt Temp ABG pCO2 at Pt Temp ABG pO2 at Pt Temp ABG HCO3 ABG Base Excess (Actual) VBG pH VBG pCO2 VBG pO2 VBG HCO3 VBG O2 Saturation VBG Base Excess Sodium Potassium Chloride Carbon Dioxide Anion Gap BUN Creatinine Estim Creat Clear Calc Estimated GFR POC Glucose Random Glucose Fasting Glucose Lactic Acid Lactic Acid F/U @ 2Hr Calcium Phosphorus Magnesium Total Bilirubin Direct Bilirubin AST ALT Alkaline Phosphatase Ammonia Total Creatine Kinase Troponin I High Sens C-Reactive Protein Total Protein Albumin Triglycerides Vitamin B1 Vitamin B12 Folate Procalcitonin TSH Urine Color Urine Appearance Urine pH Ur Specific [place]rm[place] Urine Protein Urine Glucose (UA) Urine Ketones Urine Blood Urine Nitrite Ur Leukocyte Esterase Urine RBC Urine WBC Ur Squamous Epith Cells Urine Bacteria Hyaline Casts Urine Creatinine CSF Tube Number CSF Volume CSF Appearance CSF Color CSF WBC CSF RBC CSF Neutrophils CSF Lymphocytes CSF Appearance (b) CSF Glucose CSF Total Protein CSF C.neoform/gat PCR Not Detected CSF CMV DNA (PCR) Not Detected CSF Enterovirus (PCR) Not Detected CSF E. coli K1 (PCR) Not Detected CSF H. influenzae (PCR) Not Detected CSF HSV I (PCR) Not Detected CSF HSV II (PCR) Not Detected CSF HHV 6 (PCR) Not Detected CSF L.monocytogenes PCR Not Detected CSF N. meningitidis PCR Not Detected CSF Parechovirus (PCR) Not Detected CSF S. agalactiae (PCR) Not Detected CSF S. pneumoniae (PCR) Not Detected CSF VZV (PCR) Not Detected Nasal Screen MRSA (PCR) Nasal S. aureus Screen Nasal MRSA/S.aureus Interp Stool Occult Blood Vancomycin Trough Random Vancomycin Urine Opiates Screen Urine Fentanyl Screen Ur Barbiturates Screen Phenytoin Ur Phencyclidine Scrn Ur Amphetamines Screen U Benzodiazepines Scrn Urine Cocaine Screen U Marijuana (THC) Screen Ethyl Alcohol Respiratory Panel Peter T.pallidum Ab (EIA) Adenovirus (Rapid PCR) B.pert (TEM-PCR) B.parapertussis DNA PCR C. pneumoniae DNA (PCR) Coronavirus OC43 (PCR) Coronavirus HKU1 (PCR) Coronavirus 229E (PCR) COVID-19 (KATELYNN) COVID-19 Clin Com Coronavirus NL63 (PCR) HIV 1&2 Ab/P24 Ag 4thGn Human Metapneumovir PCR Influenza A (RT-PCR) Influenza B (RT-PCR) M. pneumoniae (PCR) Parainfluenza 1 (PCR) Parainfluenza 2 (PCR) Parainfluenza 3 (PCR) Parainfluenza 4 (PCR) RSV (PCR) Entero/Rhino (PCR) SARS-CoV-2 RNA (RT-PCR) Blood Type Antibody Screen 03/23/22 03/23/22 03/25/22 14:30 14:30 05:57 WBC 17.7 H RBC 4.77 Hgb 13.9 L Hct 44.2 MCV 92.7 MCH 29.1 MCHC 31.4 RDW 12.9 Plt Count 386 MPV 8.9 L Immature Gran % (Auto) Neut % (Auto) Lymph % (Auto) [place] % (Auto) Eos % (Auto) Baso % (Auto) Lymph # (Auto) [place] # (Auto) Eos # (Auto) Baso # (Auto) Abs Immat Gran (auto) Absolute Neuts (auto) Absolute Nucleated RBC 0.000 Nucleated RBC % (auto) 0.0 Smear Tech's Comments ESR PT INR APTT O2 Saturation ABG pH at Pt Temp ABG pCO2 at Pt Temp ABG pO2 at Pt Temp ABG HCO3 ABG Base Excess (Actual) VBG pH VBG pCO2 VBG pO2 VBG HCO3 VBG O2 Saturation VBG Base Excess Sodium Potassium Chloride Carbon Dioxide Anion Gap BUN Creatinine Estim Creat Clear Calc Estimated GFR POC Glucose Random Glucose Fasting Glucose Lactic Acid Lactic Acid F/U @ 2Hr Calcium Phosphorus Magnesium Total Bilirubin Direct Bilirubin AST ALT Alkaline Phosphatase Ammonia Total Creatine Kinase Troponin I High Sens C-Reactive Protein Total Protein Albumin Triglycerides Vitamin B1 Vitamin B12 Folate Procalcitonin TSH Urine Color Urine Appearance Urine pH Ur Specific [place]rm[place] Urine Protein Urine Glucose (UA) Urine Ketones Urine Blood Urine Nitrite Ur Leukocyte Esterase Urine RBC Urine WBC Ur Squamous Epith Cells Urine Bacteria Hyaline Casts Urine Creatinine CSF Tube Number 1 4 CSF Volume 1.5 CSF Appearance BLOODY CSF Color RED CSF WBC 320 H* CSF RBC 78102 CSF Neutrophils 55 CSF Lymphocytes 44 CSF Appearance (b) Cloudy CSF Glucose 77 CSF Total Protein 155.8 H CSF C.neoform/gat PCR CSF CMV DNA (PCR) CSF Enterovirus (PCR) CSF E. coli K1 (PCR) CSF H. influenzae (PCR) CSF HSV I (PCR) CSF HSV II (PCR) CSF HHV 6 (PCR) CSF L.monocytogenes PCR CSF N. meningitidis PCR CSF Parechovirus (PCR) CSF S. agalactiae (PCR) CSF S. pneumoniae (PCR) CSF VZV (PCR) Nasal Screen MRSA (PCR) Nasal S. aureus Screen Nasal MRSA/S.aureus Interp Stool Occult Blood Vancomycin Trough Random Vancomycin Urine Opiates Screen Urine Fentanyl Screen Ur Barbiturates Screen Phenytoin Ur Phencyclidine Scrn Ur Amphetamines Screen U Benzodiazepines Scrn Urine Cocaine Screen U Marijuana (THC) Screen Ethyl Alcohol Respiratory Panel Peter T.pallidum Ab (EIA) Adenovirus (Rapid PCR) B.pert (TEM-PCR) B.parapertussis DNA PCR C. pneumoniae DNA (PCR) Coronavirus OC43 (PCR) Coronavirus HKU1 (PCR) Coronavirus 229E (PCR) COVID-19 (KATELYNN) COVID-19 Clin Com Coronavirus NL63 (PCR) HIV 1&2 Ab/P24 Ag 4thGn Human Metapneumovir PCR Influenza A (RT-PCR) Influenza B (RT-PCR) M. pneumoniae (PCR) Parainfluenza 1 (PCR) Parainfluenza 2 (PCR) Parainfluenza 3 (PCR) Parainfluenza 4 (PCR) RSV (PCR) Entero/Rhino (PCR) SARS-CoV-2 RNA (RT-PCR) Blood Type Antibody Screen 03/25/22 03/25/22 03/25/22 05:57 05:57 09:37 WBC RBC Hgb Hct MCV MCH MCHC RDW Plt Count MPV Immature Gran % (Auto) Neut % (Auto) Lymph % (Auto) [place] % (Auto) Eos % (Auto) Baso % (Auto) Lymph # (Auto) [place] # (Auto) Eos # (Auto) Baso # (Auto) Abs Immat Gran (auto) Absolute Neuts (auto) Absolute Nucleated RBC Nucleated RBC % (auto) Smear Tech's Comments ESR PT INR APTT O2 Saturation ABG pH at Pt Temp ABG pCO2 at Pt Temp ABG pO2 at Pt Temp ABG HCO3 ABG Base Excess (Actual) VBG pH VBG pCO2 VBG pO2 VBG HCO3 VBG O2 Saturation VBG Base Excess Sodium 147 H 146 H Potassium 4.7 Chloride 111 H Carbon Dioxide 22 Anion Gap 19 BUN 64 H Creatinine 2.26 H Estim Creat Clear Calc 31.7 Estimated GFR 29 POC Glucose Random Glucose 122 H Fasting Glucose Lactic Acid Lactic Acid F/U @ 2Hr Calcium 10.4 H Phosphorus Magnesium Total Bilirubin 0.8 Direct Bilirubin 0.5 AST 41 H D ALT 56 H Alkaline Phosphatase 115 Ammonia Total Creatine Kinase 397 H D Troponin I High Sens C-Reactive Protein 16.30 H Total Protein 8.4 H Albumin 3.8 Triglycerides Vitamin B1 Vitamin B12 Folate Procalcitonin 0.12 TSH Urine Color Urine Appearance Urine pH Ur Specific [place]rmine Urine Protein Urine Glucose (UA) Urine Ketones Urine Blood Urine Nitrite Ur Leukocyte Esterase Urine RBC Urine WBC Ur Squamous Epith Cells Urine Bacteria Hyaline Casts Urine Creatinine CSF Tube Number CSF Volume CSF Appearance CSF Color CSF WBC CSF RBC CSF Neutrophils CSF Lymphocytes CSF Appearance (b) CSF Glucose CSF Total Protein CSF C.neoform/gat PCR CSF CMV DNA (PCR) CSF Enterovirus (PCR) CSF E. coli K1 (PCR) CSF H. influenzae (PCR) CSF HSV I (PCR) CSF HSV II (PCR) CSF HHV 6 (PCR) CSF L.monocytogenes PCR CSF N. meningitidis PCR CSF Parechovirus (PCR) CSF S. agalactiae (PCR) CSF S. pneumoniae (PCR) CSF VZV (PCR) Nasal Screen MRSA (PCR) Nasal S. aureus Screen Nasal MRSA/S.aureus Interp Stool Occult Blood Vancomycin Trough Random Vancomycin Urine Opiates Screen Urine Fentanyl Screen Ur Barbiturates Screen Phenytoin Ur Phencyclidine Scrn Ur Amphetamines Screen U Benzodiazepines Scrn Urine Cocaine Screen U Marijuana (THC) Screen Ethyl Alcohol Respiratory Panel Peter T.pallidum Ab (EIA) Adenovirus (Rapid PCR) B.pert (TEM-PCR) B.parapertussis DNA PCR C. pneumoniae DNA (PCR) Coronavirus OC43 (PCR) Coronavirus HKU1 (PCR) Coronavirus 229E (PCR) COVID-19 (KATELYNN) COVID-19 Clin Com Coronavirus NL63 (PCR) HIV 1&2 Ab/P24 Ag 4thGn Human Metapneumovir PCR Influenza A (RT-PCR) Influenza B (RT-PCR) M. pneumoniae (PCR) Parainfluenza 1 (PCR) Parainfluenza 2 (PCR) Parainfluenza 3 (PCR) Parainfluenza 4 (PCR) RSV (PCR) Entero/Rhino (PCR) SARS-CoV-2 RNA (RT-PCR) Blood Type Antibody Screen 03/25/22 03/26/22 03/26/22 13:57 03:03 06:24 WBC RBC Hgb Hct MCV MCH MCHC RDW Plt Count MPV Immature Gran % (Auto) Neut % (Auto) Lymph % (Auto) [place] % (Auto) Eos % (Auto) Baso % (Auto) Lymph # (Auto) [place] # (Auto) Eos # (Auto) Baso # (Auto) Abs Immat Gran (auto) Absolute Neuts (auto) Absolute Nucleated RBC Nucleated RBC % (auto) Smear Tech's Comments ESR PT INR APTT O2 Saturation ABG pH at Pt Temp ABG pCO2 at Pt Temp ABG pO2 at Pt Temp ABG HCO3 ABG Base Excess (Actual) VBG pH VBG pCO2 VBG pO2 VBG HCO3 VBG O2 Saturation VBG Base Excess Sodium 153 H Potassium 4.8 Chloride 120 H Carbon Dioxide 21 L Anion Gap 17 BUN 53 H Creatinine 1.13 Estim Creat Clear Calc 63.4 Estimated GFR > 60 POC Glucose Random Glucose 140 H Fasting Glucose Lactic Acid 1.4 Lactic Acid F/U @ 2Hr Calcium 10.0 Phosphorus Magnesium Total Bilirubin Direct Bilirubin AST ALT Alkaline Phosphatase Ammonia Total Creatine Kinase Troponin I High Sens C-Reactive Protein Total Protein Albumin Triglycerides Vitamin B1 Vitamin B12 Folate Procalcitonin TSH Urine Color Urine Appearance Urine pH Ur Specific [place]rm[place] Urine Protein Urine Glucose (UA) Urine Ketones Urine Blood Urine Nitrite Ur Leukocyte Esterase Urine RBC Urine WBC Ur Squamous Epith Cells Urine Bacteria Hyaline Casts Urine Creatinine CSF Tube Number CSF Volume CSF Appearance CSF Color CSF WBC CSF RBC CSF Neutrophils CSF Lymphocytes CSF Appearance (b) CSF Glucose CSF Total Protein CSF C.neoform/gat PCR CSF CMV DNA (PCR) CSF Enterovirus (PCR) CSF E. coli K1 (PCR) CSF H. influenzae (PCR) CSF HSV I (PCR) CSF HSV II (PCR) CSF HHV 6 (PCR) CSF L.monocytogenes PCR CSF N. meningitidis PCR CSF Parechovirus (PCR) CSF S. agalactiae (PCR) CSF S. pneumoniae (PCR) CSF VZV (PCR) Nasal Screen MRSA (PCR) Nasal S. aureus Screen Nasal MRSA/S.aureus Interp Stool Occult Blood Vancomycin Trough Random Vancomycin Urine Opiates Screen Urine Fentanyl Screen Ur Barbiturates Screen Phenytoin Ur Phencyclidine Scrn Ur Amphetamines Screen U Benzodiazepines Scrn Urine Cocaine Screen U Marijuana (THC) Screen Ethyl Alcohol Respiratory Panel Peter See Note T.pallidum Ab (EIA) Adenovirus (Rapid PCR) Not Detected B.pert (TEM-PCR) Not Detected B.parapertussis DNA PCR Not Detected C. pneumoniae DNA (PCR) Not Detected Coronavirus OC43 (PCR) Not Detected Coronavirus HKU1 (PCR) Not Detected Coronavirus 229E (PCR) Not Detected COVID-19 (KATELYNN) COVID-19 Clin Com Coronavirus NL63 (PCR) Not Detected HIV 1&2 Ab/P24 Ag 4thGn Human Metapneumovir PCR Not Detected Influenza A (RT-PCR) Not Detected Influenza B (RT-PCR) Not Detected M. pneumoniae (PCR) Not Detected Parainfluenza 1 (PCR) Not Detected Parainfluenza 2 (PCR) Not Detected Parainfluenza 3 (PCR) Not Detected Parainfluenza 4 (PCR) Not Detected RSV (PCR) Not Detected Entero/Rhino (PCR) Not Detected SARS-CoV-2 RNA (RT-PCR) Not Detected Blood Type Antibody Screen 03/26/22 03/26/22 03/26/22 06:24 09:12 12:37 WBC 18.5 H RBC 5.06 Hgb 14.7 Hct 46.8 MCV 92.5 MCH 29.1 MCHC 31.4 RDW 13.1 Plt Count 337 MPV 9.1 L Immature Gran % (Auto) Neut % (Auto) Lymph % (Auto) [place] % (Auto) Eos % (Auto) Baso % (Auto) Lymph # (Auto) [place] # (Auto) Eos # (Auto) Baso # (Auto) Abs Immat Gran (auto) Absolute Neuts (auto) Absolute Nucleated RBC 0.000 Nucleated RBC % (auto) 0.0 Smear Tech's Comments ESR PT INR APTT O2 Saturation 91.0 ABG pH at Pt Temp 7.45 ABG pCO2 at Pt Temp 26 L ABG pO2 at Pt Temp 66 L ABG HCO3 18 L ABG Base Excess (Actual) -3.2 VBG pH VBG pCO2 VBG pO2 VBG HCO3 VBG O2 Saturation VBG Base Excess Sodium Potassium Chloride Carbon Dioxide Anion Gap BUN Creatinine Estim Creat Clear Calc Estimated GFR POC Glucose Random Glucose Fasting Glucose Lactic Acid Lactic Acid F/U @ 2Hr Calcium Phosphorus Magnesium Total Bilirubin Direct Bilirubin AST ALT Alkaline Phosphatase Ammonia Total Creatine Kinase Troponin I High Sens C-Reactive Protein Total Protein Albumin Triglycerides Vitamin B1 Vitamin B12 Folate Procalcitonin TSH Urine Color Urine Appearance Urine pH Ur Specific Ermine Urine Protein Urine Glucose (UA) Urine Ketones Urine Blood Urine Nitrite Ur Leukocyte Esterase Urine RBC Urine WBC Ur Squamous Epith Cells Urine Bacteria Hyaline Casts Urine Creatinine CSF Tube Number CSF Volume CSF Appearance CSF Color CSF WBC CSF RBC CSF Neutrophils CSF Lymphocytes CSF Appearance (b) CSF Glucose CSF Total Protein CSF C.neoform/gat PCR CSF CMV DNA (PCR) CSF Enterovirus (PCR) CSF E. coli K1 (PCR) CSF H. influenzae (PCR) CSF HSV I (PCR) CSF HSV II (PCR) CSF HHV 6 (PCR) CSF L.monocytogenes PCR CSF N. meningitidis PCR CSF Parechovirus (PCR) CSF S. agalactiae (PCR) CSF S. pneumoniae (PCR) CSF VZV (PCR) Nasal Screen MRSA (PCR) Nasal S. aureus Screen Nasal MRSA/S.aureus Interp Stool Occult Blood Vancomycin Trough Random Vancomycin Urine Opiates Screen Urine Fentanyl Screen Ur Barbiturates Screen Phenytoin Ur Phencyclidine Scrn Ur Amphetamines Screen U Benzodiazepines Scrn Urine Cocaine Screen U Marijuana (THC) Screen Ethyl Alcohol Respiratory Panel Peter See Note T.pallidum Ab (EIA) Adenovirus (Rapid PCR) Not Detected B.pert (TEM-PCR) Not Detected B.parapertussis DNA PCR Not Detected C. pneumoniae DNA (PCR) Not Detected Coronavirus OC43 (PCR) Not Detected Coronavirus HKU1 (PCR) Not Detected Coronavirus 229E (PCR) Not Detected COVID-19 (KATELYNN) COVID-19 Clin Com Coronavirus NL63 (PCR) Not Detected HIV 1&2 Ab/P24 Ag 4thGn Human Metapneumovir PCR Not Detected Influenza A (RT-PCR) Not Detected Influenza B (RT-PCR) Not Detected M. pneumoniae (PCR) Not Detected Parainfluenza 1 (PCR) Not Detected Parainfluenza 2 (PCR) Not Detected Parainfluenza 3 (PCR) Not Detected Parainfluenza 4 (PCR) Not Detected RSV (PCR) Not Detected Entero/Rhino (PCR) Not Detected SARS-CoV-2 RNA (RT-PCR) Not Detected Blood Type Antibody Screen 03/26/22 03/26/22 03/26/22 14:34 14:34 16:59 WBC RBC Hgb Hct MCV MCH MCHC RDW Plt Count MPV Immature Gran % (Auto) Neut % (Auto) Lymph % (Auto) [place] % (Auto) Eos % (Auto) Baso % (Auto) Lymph # (Auto) [place] # (Auto) Eos # (Auto) Baso # (Auto) Abs Immat Gran (auto) Absolute Neuts (auto) Absolute Nucleated RBC Nucleated RBC % (auto) Smear Tech's Comments ESR PT INR APTT O2 Saturation ABG pH at Pt Temp ABG pCO2 at Pt Temp ABG pO2 at Pt Temp ABG HCO3 ABG Base Excess (Actual) VBG pH VBG pCO2 VBG pO2 VBG HCO3 VBG O2 Saturation VBG Base Excess Sodium 153 H Potassium 5.0 Chloride 122 H Carbon Dioxide 18 L Anion Gap 18 BUN 44 H Creatinine 1.09 Estim Creat Clear Calc 65.7 Estimated GFR > 60 POC Glucose Random Glucose 168 H Fasting Glucose Lactic Acid Lactic Acid F/U @ 2Hr Calcium 9.5 Phosphorus Magnesium Total Bilirubin Direct Bilirubin AST ALT Alkaline Phosphatase Ammonia Total Creatine Kinase Troponin I High Sens C-Reactive Protein Total Protein Albumin Triglycerides Vitamin B1 Vitamin B12 Folate Procalcitonin TSH Urine Color Dark Yellow Urine Appearance Turbid Urine pH 7.5 Ur Specific Ermine 1.020 Urine Protein 100 (2+) H Urine Glucose (UA) Negative Urine Ketones Trace Urine Blood Large (3+) H Urine Nitrite Positive H Ur Leukocyte Esterase Large (3+) H Urine RBC >20 H Urine WBC >50 H Ur Squamous Epith Cells 6-10 Urine Bacteria 4+ Hyaline Casts 0-2 Urine Creatinine 97.26 CSF Tube Number CSF Volume CSF Appearance CSF Color CSF WBC CSF RBC CSF Neutrophils CSF Lymphocytes CSF Appearance (b) CSF Glucose CSF Total Protein CSF C.neoform/gat PCR CSF CMV DNA (PCR) CSF Enterovirus (PCR) CSF E. coli K1 (PCR) CSF H. influenzae (PCR) CSF HSV I (PCR) CSF HSV II (PCR) CSF HHV 6 (PCR) CSF L.monocytogenes PCR CSF N. meningitidis PCR CSF Parechovirus (PCR) CSF S. agalactiae (PCR) CSF S. pneumoniae (PCR) CSF VZV (PCR) Nasal Screen MRSA (PCR) Nasal S. aureus Screen Nasal MRSA/S.aureus Interp Stool Occult Blood Vancomycin Trough Random Vancomycin Urine Opiates Screen Urine Fentanyl Screen Ur Barbiturates Screen Phenytoin Ur Phencyclidine Scrn Ur Amphetamines Screen U Benzodiazepines Scrn Urine Cocaine Screen U Marijuana (THC) Screen Ethyl Alcohol Respiratory Panel Peter T.pallidum Ab (EIA) Adenovirus (Rapid PCR) B.pert (TEM-PCR) B.parapertussis DNA PCR C. pneumoniae DNA (PCR) Coronavirus OC43 (PCR) Coronavirus HKU1 (PCR) Coronavirus 229E (PCR) COVID-19 (KATELYNN) COVID-19 Clin Com Coronavirus NL63 (PCR) HIV 1&2 Ab/P24 Ag 4thGn Human Metapneumovir PCR Influenza A (RT-PCR) Influenza B (RT-PCR) M. pneumoniae (PCR) Parainfluenza 1 (PCR) Parainfluenza 2 (PCR) Parainfluenza 3 (PCR) Parainfluenza 4 (PCR) RSV (PCR) Entero/Rhino (PCR) SARS-CoV-2 RNA (RT-PCR) Blood Type Antibody Screen 03/27/22 03/27/22 03/27/22 06:54 06:54 12:30 WBC 20.9 H RBC 4.73 Hgb 13.7 L Hct 44.1 MCV 93.2 MCH 29.0 MCHC 31.1 RDW 13.2 Plt Count 272 MPV 9.4 Immature Gran % (Auto) Neut % (Auto) Lymph % (Auto) [place] % (Auto) Eos % (Auto) Baso % (Auto) Lymph # (Auto) [place] # (Auto) Eos # (Auto) Baso # (Auto) Abs Immat Gran (auto) Absolute Neuts (auto) Absolute Nucleated RBC 0.000 Nucleated RBC % (auto) 0.0 Smear Tech's Comments ESR PT INR APTT 30.1 O2 Saturation ABG pH at Pt Temp ABG pCO2 at Pt Temp ABG pO2 at Pt Temp ABG HCO3 ABG Base Excess (Actual) VBG pH VBG pCO2 VBG pO2 VBG HCO3 VBG O2 Saturation VBG Base Excess Sodium 150 H Potassium 3.7 D Chloride 118 H Carbon Dioxide 23 Anion Gap 13 BUN 33 H Creatinine 1.11 Estim Creat Clear Calc 64.5 Estimated GFR > 60 POC Glucose Random Glucose 152 H Fasting Glucose Lactic Acid Lactic Acid F/U @ 2Hr Calcium 9.4 Phosphorus Magnesium 2.4 Total Bilirubin Direct Bilirubin AST ALT Alkaline Phosphatase Ammonia Total Creatine Kinase Troponin I High Sens C-Reactive Protein Total Protein Albumin Triglycerides Vitamin B1 Vitamin B12 Folate Procalcitonin TSH Urine Color Urine Appearance Urine pH Ur Specific [place] Urine Protein Urine Glucose (UA) Urine Ketones Urine Blood Urine Nitrite Ur Leukocyte Esterase Urine RBC Urine WBC Ur Squamous Epith Cells Urine Bacteria Hyaline Casts Urine Creatinine CSF Tube Number CSF Volume CSF Appearance CSF Color CSF WBC CSF RBC CSF Neutrophils CSF Lymphocytes CSF Appearance (b) CSF Glucose CSF Total Protein CSF C.neoform/gat PCR CSF CMV DNA (PCR) CSF Enterovirus (PCR) CSF E. coli K1 (PCR) CSF H. influenzae (PCR) CSF HSV I (PCR) CSF HSV II (PCR) CSF HHV 6 (PCR) CSF L.monocytogenes PCR CSF N. meningitidis PCR CSF Parechovirus (PCR) CSF S. agalactiae (PCR) CSF S. pneumoniae (PCR) CSF VZV (PCR) Nasal Screen MRSA (PCR) Nasal S. aureus Screen Nasal MRSA/S.aureus Interp Stool Occult Blood Vancomycin Trough Random Vancomycin Urine Opiates Screen Urine Fentanyl Screen Ur Barbiturates Screen Phenytoin Ur Phencyclidine Scrn Ur Amphetamines Screen U Benzodiazepines Scrn Urine Cocaine Screen U Marijuana (THC) Screen Ethyl Alcohol Respiratory Panel Peter T.pallidum Ab (EIA) Adenovirus (Rapid PCR) B.pert (TEM-PCR) B.parapertussis DNA PCR C. pneumoniae DNA (PCR) Coronavirus OC43 (PCR) Coronavirus HKU1 (PCR) Coronavirus 229E (PCR) COVID-19 (KATELYNN) COVID-19 Clin Com Coronavirus NL63 (PCR) HIV 1&2 Ab/P24 Ag 4thGn Human Metapneumovir PCR Influenza A (RT-PCR) Influenza B (RT-PCR) M. pneumoniae (PCR) Parainfluenza 1 (PCR) Parainfluenza 2 (PCR) Parainfluenza 3 (PCR) Parainfluenza 4 (PCR) RSV (PCR) Entero/Rhino (PCR) SARS-CoV-2 RNA (RT-PCR) Blood Type Antibody Screen 03/28/22 03/28/22 03/29/22 08:39 10:40 06:33 WBC 19.2 H RBC 4.52 L Hgb 13.1 L Hct 42.6 MCV 94.2 MCH 29.0 MCHC 30.8 L RDW 13.4 Plt Count 211 MPV 10.6 Immature Gran % (Auto) Neut % (Auto) Lymph % (Auto) [place] % (Auto) Eos % (Auto) Baso % (Auto) Lymph # (Auto) [place] # (Auto) Eos # (Auto) Baso # (Auto) Abs Immat Gran (auto) Absolute Neuts (auto) Absolute Nucleated RBC 0.000 Nucleated RBC % (auto) 0.0 Smear Tech's Comments ESR PT INR APTT O2 Saturation ABG pH at Pt Temp ABG pCO2 at Pt Temp ABG pO2 at Pt Temp ABG HCO3 ABG Base Excess (Actual) VBG pH VBG pCO2 VBG pO2 VBG HCO3 VBG O2 Saturation VBG Base Excess Sodium 147 H Potassium 4.0 Chloride 118 H Carbon Dioxide 19 L Anion Gap 14 BUN 26 H Creatinine 0.86 Estim Creat Clear Calc 83.3 Estimated GFR > 60 POC Glucose Random Glucose 134 H Fasting Glucose Lactic Acid 1.1 Lactic Acid F/U @ 2Hr Calcium 8.3 L D Phosphorus Magnesium Total Bilirubin Direct Bilirubin AST ALT Alkaline Phosphatase Ammonia Total Creatine Kinase Troponin I High Sens C-Reactive Protein Total Protein Albumin Triglycerides Vitamin B1 Vitamin B12 Folate Procalcitonin TSH Urine Color Urine Appearance Urine pH Ur Specific [place] Urine Protein Urine Glucose (UA) Urine Ketones Urine Blood Urine Nitrite Ur Leukocyte Esterase Urine RBC Urine WBC Ur Squamous Epith Cells Urine Bacteria Hyaline Casts Urine Creatinine CSF Tube Number CSF Volume CSF Appearance CSF Color CSF WBC CSF RBC CSF Neutrophils CSF Lymphocytes CSF Appearance (b) CSF Glucose CSF Total Protein CSF C.neoform/gat PCR CSF CMV DNA (PCR) CSF Enterovirus (PCR) CSF E. coli K1 (PCR) CSF H. influenzae (PCR) CSF HSV I (PCR) CSF HSV II (PCR) CSF HHV 6 (PCR) CSF L.monocytogenes PCR CSF N. meningitidis PCR CSF Parechovirus (PCR) CSF S. agalactiae (PCR) CSF S. pneumoniae (PCR) CSF VZV (PCR) Nasal Screen MRSA (PCR) Nasal S. aureus Screen Nasal MRSA/S.aureus Interp Stool Occult Blood Vancomycin Trough Random Vancomycin Urine Opiates Screen Urine Fentanyl Screen Ur Barbiturates Screen Phenytoin Ur Phencyclidine Scrn Ur Amphetamines Screen U Benzodiazepines Scrn Urine Cocaine Screen U Marijuana (THC) Screen Ethyl Alcohol Respiratory Panel Peter T.pallidum Ab (EIA) Adenovirus (Rapid PCR) B.pert (TEM-PCR) B.parapertussis DNA PCR C. pneumoniae DNA (PCR) Coronavirus OC43 (PCR) Coronavirus HKU1 (PCR) Coronavirus 229E (PCR) COVID-19 (KATELYNN) COVID-19 Clin Com Coronavirus NL63 (PCR) HIV 1&2 Ab/P24 Ag 4thGn Human Metapneumovir PCR Influenza A (RT-PCR) Influenza B (RT-PCR) M. pneumoniae (PCR) Parainfluenza 1 (PCR) Parainfluenza 2 (PCR) Parainfluenza 3 (PCR) Parainfluenza 4 (PCR) RSV (PCR) Entero/Rhino (PCR) SARS-CoV-2 RNA (RT-PCR) Blood Type Antibody Screen 03/29/22 03/29/22 03/30/22 06:33 06:33 10:33 WBC 19.2 H 18.4 H RBC 4.29 L 4.04 L Hgb 12.5 L 11.9 L Hct 39.5 L 37.9 L MCV 92.1 93.8 MCH 29.1 29.5 MCHC 31.6 31.4 RDW 13.5 13.6 Plt Count 239 232 MPV 10.5 10.5 Immature Gran % (Auto) Neut % (Auto) Lymph % (Auto) [place] % (Auto) Eos % (Auto) Baso % (Auto) Lymph # (Auto) [place] # (Auto) Eos # (Auto) Baso # (Auto) Abs Immat Gran (auto) Absolute Neuts (auto) Absolute Nucleated RBC 0.000 0.000 Nucleated RBC % (auto) 0.0 0.0 Smear Tech's Comments ESR PT INR APTT O2 Saturation ABG pH at Pt Temp ABG pCO2 at Pt Temp ABG pO2 at Pt Temp ABG HCO3 ABG Base Excess (Actual) VBG pH VBG pCO2 VBG pO2 VBG HCO3 VBG O2 Saturation VBG Base Excess Sodium 150 H Potassium 4.2 Chloride 120 H Carbon Dioxide 18 L Anion Gap 16 BUN 30 H Creatinine 0.77 Estim Creat Clear Calc 93.0 Estimated GFR > 60 POC Glucose Random Glucose 90 Fasting Glucose Lactic Acid Lactic Acid F/U @ 2Hr Calcium 8.5 Phosphorus Magnesium Total Bilirubin Direct Bilirubin AST ALT Alkaline Phosphatase Ammonia Total Creatine Kinase Troponin I High Sens C-Reactive Protein Total Protein Albumin Triglycerides Vitamin B1 Vitamin B12 Folate Procalcitonin TSH Urine Color Urine Appearance Urine pH Ur Specific [place] Urine Protein Urine Glucose (UA) Urine Ketones Urine Blood Urine Nitrite Ur Leukocyte Esterase Urine RBC Urine WBC Ur Squamous Epith Cells Urine Bacteria Hyaline Casts Urine Creatinine CSF Tube Number CSF Volume CSF Appearance CSF Color CSF WBC CSF RBC CSF Neutrophils CSF Lymphocytes CSF Appearance (b) CSF Glucose CSF Total Protein CSF C.neoform/gat PCR CSF CMV DNA (PCR) CSF Enterovirus (PCR) CSF E. coli K1 (PCR) CSF H. influenzae (PCR) CSF HSV I (PCR) CSF HSV II (PCR) CSF HHV 6 (PCR) CSF L.monocytogenes PCR CSF N. meningitidis PCR CSF Parechovirus (PCR) CSF S. agalactiae (PCR) CSF S. pneumoniae (PCR) CSF VZV (PCR) Nasal Screen MRSA (PCR) Nasal S. aureus Screen Nasal MRSA/S.aureus Interp Stool Occult Blood Vancomycin Trough Random Vancomycin Urine Opiates Screen Urine Fentanyl Screen Ur Barbiturates Screen Phenytoin Ur Phencyclidine Scrn Ur Amphetamines Screen U Benzodiazepines Scrn Urine Cocaine Screen U Marijuana (THC) Screen Ethyl Alcohol Respiratory Panel Peter T.pallidum Ab (EIA) Adenovirus (Rapid PCR) B.pert (TEM-PCR) B.parapertussis DNA PCR C. pneumoniae DNA (PCR) Coronavirus OC43 (PCR) Coronavirus HKU1 (PCR) Coronavirus 229E (PCR) COVID-19 (KATELYNN) COVID-19 Clin Com Coronavirus NL63 (PCR) HIV 1&2 Ab/P24 Ag 4thGn Human Metapneumovir PCR Influenza A (RT-PCR) Influenza B (RT-PCR) M. pneumoniae (PCR) Parainfluenza 1 (PCR) Parainfluenza 2 (PCR) Parainfluenza 3 (PCR) Parainfluenza 4 (PCR) RSV (PCR) Entero/Rhino (PCR) SARS-CoV-2 RNA (RT-PCR) Blood Type Antibody Screen 03/30/22 03/30/22 03/30/22 10:33 10:33 12:50 WBC RBC Hgb Hct MCV MCH MCHC RDW Plt Count MPV Immature Gran % (Auto) Neut % (Auto) Lymph % (Auto) [place] % (Auto) Eos % (Auto) Baso % (Auto) Lymph # (Auto) [place] # (Auto) Eos # (Auto) Baso # (Auto) Abs Immat Gran (auto) Absolute Neuts (auto) Absolute Nucleated RBC Nucleated RBC % (auto) Smear Tech's Comments ESR PT INR APTT O2 Saturation ABG pH at Pt Temp ABG pCO2 at Pt Temp ABG pO2 at Pt Temp ABG HCO3 ABG Base Excess (Actual) VBG pH VBG pCO2 VBG pO2 VBG HCO3 VBG O2 Saturation VBG Base Excess Sodium Cancelled 150 H Potassium Cancelled 3.8 Chloride Cancelled 117 H Carbon Dioxide Cancelled 21 L Anion Gap Cancelled 16 BUN Cancelled 16 Creatinine Cancelled 0.71 Estim Creat Clear Calc Cancelled 100.9 Estimated GFR Cancelled > 60 POC Glucose Random Glucose Cancelled 94 Fasting Glucose Lactic Acid Lactic Acid F/U @ 2Hr Calcium Cancelled 8.1 L Phosphorus Magnesium Total Bilirubin Direct Bilirubin AST ALT Alkaline Phosphatase Ammonia Total Creatine Kinase Troponin I High Sens C-Reactive Protein Total Protein Albumin Triglycerides Vitamin B1 Vitamin B12 Folate Procalcitonin TSH Urine Color Urine Appearance Urine pH Ur Specific [place] Urine Protein Urine Glucose (UA) Urine Ketones Urine Blood Urine Nitrite Ur Leukocyte Esterase Urine RBC Urine WBC Ur Squamous Epith Cells Urine Bacteria Hyaline Casts Urine Creatinine CSF Tube Number CSF Volume CSF Appearance CSF Color CSF WBC CSF RBC CSF Neutrophils CSF Lymphocytes CSF Appearance (b) CSF Glucose CSF Total Protein CSF C.neoform/gat PCR CSF CMV DNA (PCR) CSF Enterovirus (PCR) CSF E. coli K1 (PCR) CSF H. influenzae (PCR) CSF HSV I (PCR) CSF HSV II (PCR) CSF HHV 6 (PCR) CSF L.monocytogenes PCR CSF N. meningitidis PCR CSF Parechovirus (PCR) CSF S. agalactiae (PCR) CSF S. pneumoniae (PCR) CSF VZV (PCR) Nasal Screen MRSA (PCR) Nasal S. aureus Screen Nasal MRSA/S.aureus Interp Stool Occult Blood POSITIVE Vancomycin Trough Random Vancomycin Urine Opiates Screen Urine Fentanyl Screen Ur Barbiturates Screen Phenytoin Ur Phencyclidine Scrn Ur Amphetamines Screen U Benzodiazepines Scrn Urine Cocaine Screen U Marijuana (THC) Screen Ethyl Alcohol Respiratory Panel Peter T.pallidum Ab (EIA) Adenovirus (Rapid PCR) B.pert (TEM-PCR) B.parapertussis DNA PCR C. pneumoniae DNA (PCR) Coronavirus OC43 (PCR) Coronavirus HKU1 (PCR) Coronavirus 229E (PCR) COVID-19 (KATELYNN) COVID-19 Clin Com Coronavirus NL63 (PCR) HIV 1&2 Ab/P24 Ag 4thGn Human Metapneumovir PCR Influenza A (RT-PCR) Influenza B (RT-PCR) M. pneumoniae (PCR) Parainfluenza 1 (PCR) Parainfluenza 2 (PCR) Parainfluenza 3 (PCR) Parainfluenza 4 (PCR) RSV (PCR) Entero/Rhino (PCR) SARS-CoV-2 RNA (RT-PCR) Blood Type Antibody Screen 03/30/22 03/31/22 03/31/22 21:27 06:42 08:47 WBC RBC Hgb Hct MCV MCH MCHC RDW Plt Count MPV Immature Gran % (Auto) Neut % (Auto) Lymph % (Auto) [place] % (Auto) Eos % (Auto) Baso % (Auto) Lymph # (Auto) [place] # (Auto) Eos # (Auto) Baso # (Auto) Abs Immat Gran (auto) Absolute Neuts (auto) Absolute Nucleated RBC Nucleated RBC % (auto) Smear Tech's Comments ESR PT INR APTT O2 Saturation ABG pH at Pt Temp ABG pCO2 at Pt Temp ABG pO2 at Pt Temp ABG HCO3 ABG Base Excess (Actual) VBG pH VBG pCO2 VBG pO2 VBG HCO3 VBG O2 Saturation VBG Base Excess Sodium 142 Potassium 3.4 Chloride 116 H Carbon Dioxide 19 L Anion Gap 10 L BUN 11 Creatinine 0.71 0.57 Estim Creat Clear Calc 100.9 125.7 Estimated GFR > 60 > 60 POC Glucose Random Glucose 120 H Fasting Glucose Lactic Acid Lactic Acid F/U @ 2Hr Calcium 7.9 L Phosphorus Magnesium Total Bilirubin Direct Bilirubin AST ALT Alkaline Phosphatase Ammonia Total Creatine Kinase Troponin I High Sens C-Reactive Protein Total Protein Albumin Triglycerides Vitamin B1 Vitamin B12 Folate Procalcitonin TSH Urine Color Urine Appearance Urine pH Ur Specific [place] Urine Protein Urine Glucose (UA) Urine Ketones Urine Blood Urine Nitrite Ur Leukocyte Esterase Urine RBC Urine WBC Ur Squamous Epith Cells Urine Bacteria Hyaline Casts Urine Creatinine CSF Tube Number CSF Volume CSF Appearance CSF Color CSF WBC CSF RBC CSF Neutrophils CSF Lymphocytes CSF Appearance (b) CSF Glucose CSF Total Protein CSF C.neoform/gat PCR CSF CMV DNA (PCR) CSF Enterovirus (PCR) CSF E. coli K1 (PCR) CSF H. influenzae (PCR) CSF HSV I (PCR) CSF HSV II (PCR) CSF HHV 6 (PCR) CSF L.monocytogenes PCR CSF N. meningitidis PCR CSF Parechovirus (PCR) CSF S. agalactiae (PCR) CSF S. pneumoniae (PCR) CSF VZV (PCR) Nasal Screen MRSA (PCR) Nasal S. aureus Screen Nasal MRSA/S.aureus Interp Stool Occult Blood Vancomycin Trough 9.5 L Random Vancomycin Urine Opiates Screen Urine Fentanyl Screen Ur Barbiturates Screen Phenytoin Ur Phencyclidine Scrn Ur Amphetamines Screen U Benzodiazepines Scrn Urine Cocaine Screen U Marijuana (THC) Screen Ethyl Alcohol Respiratory Panel Peter T.pallidum Ab (EIA) Adenovirus (Rapid PCR) B.pert (TEM-PCR) B.parapertussis DNA PCR C. pneumoniae DNA (PCR) Coronavirus OC43 (PCR) Coronavirus HKU1 (PCR) Coronavirus 229E (PCR) COVID-19 (KATELYNN) COVID-19 Clin Com Coronavirus NL63 (PCR) HIV 1&2 Ab/P24 Ag 4thGn Human Metapneumovir PCR Influenza A (RT-PCR) Influenza B (RT-PCR) M. pneumoniae (PCR) Parainfluenza 1 (PCR) Parainfluenza 2 (PCR) Parainfluenza 3 (PCR) Parainfluenza 4 (PCR) RSV (PCR) Entero/Rhino (PCR) SARS-CoV-2 RNA (RT-PCR) Blood Type Antibody Screen 03/31/22 04/01/22 04/01/22 14:12 05:59 09:19 WBC RBC Hgb Hct MCV MCH MCHC RDW Plt Count MPV Immature Gran % (Auto) Neut % (Auto) Lymph % (Auto) [place] % (Auto) Eos % (Auto) Baso % (Auto) Lymph # (Auto) [place] # (Auto) Eos # (Auto) Baso # (Auto) Abs Immat Gran (auto) Absolute Neuts (auto) Absolute Nucleated RBC Nucleated RBC % (auto) Smear Tech's Comments ESR PT INR APTT O2 Saturation ABG pH at Pt Temp ABG pCO2 at Pt Temp ABG pO2 at Pt Temp ABG HCO3 ABG Base Excess (Actual) VBG pH VBG pCO2 VBG pO2 VBG HCO3 VBG O2 Saturation VBG Base Excess Sodium 147 H Potassium 3.6 Chloride 118 H Carbon Dioxide 17 L Anion Gap 16 BUN Creatinine 0.66 Estim Creat Clear Calc 108.6 Estimated GFR > 60 POC Glucose Random Glucose Fasting Glucose Lactic Acid Lactic Acid F/U @ 2Hr Calcium Phosphorus Magnesium Total Bilirubin Direct Bilirubin AST ALT Alkaline Phosphatase Ammonia Total Creatine Kinase Troponin I High Sens C-Reactive Protein Total Protein Albumin Triglycerides Vitamin B1 Vitamin B12 Folate Procalcitonin TSH Urine Color Urine Appearance Urine pH Ur Specific [place] Urine Protein Urine Glucose (UA) Urine Ketones Urine Blood Urine Nitrite Ur Leukocyte Esterase Urine RBC Urine WBC Ur Squamous Epith Cells Urine Bacteria Hyaline Casts Urine Creatinine CSF Tube Number CSF Volume CSF Appearance CSF Color CSF WBC CSF RBC CSF Neutrophils CSF Lymphocytes CSF Appearance (b) CSF Glucose CSF Total Protein CSF C.neoform/gat PCR CSF CMV DNA (PCR) CSF Enterovirus (PCR) CSF E. coli K1 (PCR) CSF H. influenzae (PCR) CSF HSV I (PCR) CSF HSV II (PCR) CSF HHV 6 (PCR) CSF L.monocytogenes PCR CSF N. meningitidis PCR CSF Parechovirus (PCR) CSF S. agalactiae (PCR) CSF S. pneumoniae (PCR) CSF VZV (PCR) Nasal Screen MRSA (PCR) NEGATIVE Nasal S. aureus Screen NEGATIVE Nasal MRSA/S.aureus Interp SEE NOTE Stool Occult Blood Vancomycin Trough 13.2 Random Vancomycin Urine Opiates Screen Urine Fentanyl Screen Ur Barbiturates Screen Phenytoin Ur Phencyclidine Scrn Ur Amphetamines Screen U Benzodiazepines Scrn Urine Cocaine Screen U Marijuana (THC) Screen Ethyl Alcohol Respiratory Panel Peter T.pallidum Ab (EIA) Adenovirus (Rapid PCR) B.pert (TEM-PCR) B.parapertussis DNA PCR C. pneumoniae DNA (PCR) Coronavirus OC43 (PCR) Coronavirus HKU1 (PCR) Coronavirus 229E (PCR) COVID-19 (KATELYNN) COVID-19 Clin Com Coronavirus NL63 (PCR) HIV 1&2 Ab/P24 Ag 4thGn Human Metapneumovir PCR Influenza A (RT-PCR) Influenza B (RT-PCR) M. pneumoniae (PCR) Parainfluenza 1 (PCR) Parainfluenza 2 (PCR) Parainfluenza 3 (PCR) Parainfluenza 4 (PCR) RSV (PCR) Entero/Rhino (PCR) SARS-CoV-2 RNA (RT-PCR) Blood Type Antibody Screen 04/02/22 04/02/22 04/02/22 06:37 09:35 20:55 WBC RBC Hgb Hct MCV MCH MCHC RDW Plt Count MPV Immature Gran % (Auto) Neut % (Auto) Lymph % (Auto) [place] % (Auto) Eos % (Auto) Baso % (Auto) Lymph # (Auto) [place] # (Auto) Eos # (Auto) Baso # (Auto) Abs Immat Gran (auto) Absolute Neuts (auto) Absolute Nucleated RBC Nucleated RBC % (auto) Smear Tech's Comments ESR PT INR APTT O2 Saturation ABG pH at Pt Temp ABG pCO2 at Pt Temp ABG pO2 at Pt Temp ABG HCO3 ABG Base Excess (Actual) VBG pH VBG pCO2 VBG pO2 VBG HCO3 VBG O2 Saturation VBG Base Excess Sodium 149 H 150 H Potassium 3.2 L 3.3 Chloride 121 H 122 H Carbon Dioxide 16 L 15 L Anion Gap 15 16 BUN 13 Creatinine 0.64 0.67 Estim Creat Clear Calc 112.0 106.9 Estimated GFR > 60 > 60 POC Glucose Random Glucose 100 Fasting Glucose Lactic Acid Lactic Acid F/U @ 2Hr Calcium 8.1 L Phosphorus 2.7 2.4 L Magnesium 1.8 1.8 Total Bilirubin Direct Bilirubin AST ALT Alkaline Phosphatase Ammonia Total Creatine Kinase Troponin I High Sens C-Reactive Protein Total Protein Albumin Triglycerides Vitamin B1 Vitamin B12 Folate Procalcitonin TSH Urine Color Urine Appearance Urine pH Ur Specific [place] Urine Protein Urine Glucose (UA) Urine Ketones Urine Blood Urine Nitrite Ur Leukocyte Esterase Urine RBC Urine WBC Ur Squamous Epith Cells Urine Bacteria Hyaline Casts Urine Creatinine CSF Tube Number CSF Volume CSF Appearance CSF Color CSF WBC CSF RBC CSF Neutrophils CSF Lymphocytes CSF Appearance (b) CSF Glucose CSF Total Protein CSF C.neoform/gat PCR CSF CMV DNA (PCR) CSF Enterovirus (PCR) CSF E. coli K1 (PCR) CSF H. influenzae (PCR) CSF HSV I (PCR) CSF HSV II (PCR) CSF HHV 6 (PCR) CSF L.monocytogenes PCR CSF N. meningitidis PCR CSF Parechovirus (PCR) CSF S. agalactiae (PCR) CSF S. pneumoniae (PCR) CSF VZV (PCR) Nasal Screen MRSA (PCR) Nasal S. aureus Screen Nasal MRSA/S.aureus Interp Stool Occult Blood Vancomycin Trough Random Vancomycin 4.3 L Urine Opiates Screen Urine Fentanyl Screen Ur Barbiturates Screen Phenytoin Ur Phencyclidine Scrn Ur Amphetamines Screen U Benzodiazepines Scrn Urine Cocaine Screen U Marijuana (THC) Screen Ethyl Alcohol Respiratory Panel Peter T.pallidum Ab (EIA) Adenovirus (Rapid PCR) B.pert (TEM-PCR) B.parapertussis DNA PCR C. pneumoniae DNA (PCR) Coronavirus OC43 (PCR) Coronavirus HKU1 (PCR) Coronavirus 229E (PCR) COVID-19 (KATELYNN) COVID-19 Clin Com Coronavirus NL63 (PCR) HIV 1&2 Ab/P24 Ag 4thGn Human Metapneumovir PCR Influenza A (RT-PCR) Influenza B (RT-PCR) M. pneumoniae (PCR) Parainfluenza 1 (PCR) Parainfluenza 2 (PCR) Parainfluenza 3 (PCR) Parainfluenza 4 (PCR) RSV (PCR) Entero/Rhino (PCR) SARS-CoV-2 RNA (RT-PCR) Blood Type Antibody Screen 04/03/22 04/03/22 04/04/22 06:15 06:15 00:44 WBC RBC Hgb Hct MCV MCH MCHC RDW Plt Count MPV Immature Gran % (Auto) Neut % (Auto) Lymph % (Auto) [place] % (Auto) Eos % (Auto) Baso % (Auto) Lymph # (Auto) [place] # (Auto) Eos # (Auto) Baso # (Auto) Abs Immat Gran (auto) Absolute Neuts (auto) Absolute Nucleated RBC Nucleated RBC % (auto) Smear Tech's Comments ESR PT INR APTT O2 Saturation ABG pH at Pt Temp ABG pCO2 at Pt Temp ABG pO2 at Pt Temp ABG HCO3 ABG Base Excess (Actual) VBG pH VBG pCO2 VBG pO2 VBG HCO3 VBG O2 Saturation VBG Base Excess Sodium 150 H 146 H Potassium 3.1 L 2.8 L Chloride 123 H 118 H Carbon Dioxide 19 L 20 L Anion Gap 11 L 11 L BUN 13 11 Creatinine 0.66 0.67 0.66 Estim Creat Clear Calc 108.6 106.9 108.6 Estimated GFR > 60 > 60 > 60 POC Glucose Random Glucose 134 H 158 H Fasting Glucose Lactic Acid Lactic Acid F/U @ 2Hr Calcium 8.2 L 7.8 L Phosphorus 2.1 L Magnesium 1.7 1.5 L Total Bilirubin Direct Bilirubin AST ALT Alkaline Phosphatase Ammonia Total Creatine Kinase Troponin I High Sens C-Reactive Protein Total Protein Albumin 2.2 L D Triglycerides 47 Vitamin B1 Vitamin B12 Folate Procalcitonin TSH Urine Color Urine Appearance Urine pH Ur Specific [place] Urine Protein Urine Glucose (UA) Urine Ketones Urine Blood Urine Nitrite Ur Leukocyte Esterase Urine RBC Urine WBC Ur Squamous Epith Cells Urine Bacteria Hyaline Casts Urine Creatinine CSF Tube Number CSF Volume CSF Appearance CSF Color CSF WBC CSF RBC CSF Neutrophils CSF Lymphocytes CSF Appearance (b) CSF Glucose CSF Total Protein CSF C.neoform/gat PCR CSF CMV DNA (PCR) CSF Enterovirus (PCR) CSF E. coli K1 (PCR) CSF H. influenzae (PCR) CSF HSV I (PCR) CSF HSV II (PCR) CSF HHV 6 (PCR) CSF L.monocytogenes PCR CSF N. meningitidis PCR CSF Parechovirus (PCR) CSF S. agalactiae (PCR) CSF S. pneumoniae (PCR) CSF VZV (PCR) Nasal Screen MRSA (PCR) Nasal S. aureus Screen Nasal MRSA/S.aureus Interp Stool Occult Blood Vancomycin Trough Random Vancomycin Urine Opiates Screen Urine Fentanyl Screen Ur Barbiturates Screen Phenytoin Ur Phencyclidine Scrn Ur Amphetamines Screen U Benzodiazepines Scrn Urine Cocaine Screen U Marijuana (THC) Screen Ethyl Alcohol Respiratory Panel Peter T.pallidum Ab (EIA) Adenovirus (Rapid PCR) B.pert (TEM-PCR) B.parapertussis DNA PCR C. pneumoniae DNA (PCR) Coronavirus OC43 (PCR) Coronavirus HKU1 (PCR) Coronavirus 229E (PCR) COVID-19 (KATELYNN) COVID-19 Clin Com Coronavirus NL63 (PCR) HIV 1&2 Ab/P24 Ag 4thGn Human Metapneumovir PCR Influenza A (RT-PCR) Influenza B (RT-PCR) M. pneumoniae (PCR) Parainfluenza 1 (PCR) Parainfluenza 2 (PCR) Parainfluenza 3 (PCR) Parainfluenza 4 (PCR) RSV (PCR) Entero/Rhino (PCR) SARS-CoV-2 RNA (RT-PCR) Blood Type Antibody Screen 04/04/22 04/04/22 04/05/22 06:34 06:34 06:26 WBC RBC Hgb Hct MCV MCH MCHC RDW Plt Count MPV Immature Gran % (Auto) Neut % (Auto) Lymph % (Auto) [place] % (Auto) Eos % (Auto) Baso % (Auto) Lymph # (Auto) [place] # (Auto) Eos # (Auto) Baso # (Auto) Abs Immat Gran (auto) Absolute Neuts (auto) Absolute Nucleated RBC Nucleated RBC % (auto) Smear Tech's Comments ESR PT INR APTT O2 Saturation ABG pH at Pt Temp ABG pCO2 at Pt Temp ABG pO2 at Pt Temp ABG HCO3 ABG Base Excess (Actual) VBG pH VBG pCO2 VBG pO2 VBG HCO3 VBG O2 Saturation VBG Base Excess Sodium 143 Potassium 3.1 L Chloride 115 H Carbon Dioxide 20 L Anion Gap 11 L BUN 11 Creatinine 0.60 0.61 0.59 Estim Creat Clear Calc 119.4 117.5 121.4 Estimated GFR > 60 > 60 > 60 POC Glucose Random Glucose 116 H Fasting Glucose Lactic Acid Lactic Acid F/U @ 2Hr Calcium 7.7 L Phosphorus 3.1 Magnesium 1.5 L Total Bilirubin Direct Bilirubin AST ALT Alkaline Phosphatase Ammonia Total Creatine Kinase Troponin I High Sens C-Reactive Protein Total Protein Albumin Triglycerides Vitamin B1 Vitamin B12 Folate Procalcitonin TSH Urine Color Urine Appearance Urine pH Ur Specific [place] Urine Protein Urine Glucose (UA) Urine Ketones Urine Blood Urine Nitrite Ur Leukocyte Esterase Urine RBC Urine WBC Ur Squamous Epith Cells Urine Bacteria Hyaline Casts Urine Creatinine CSF Tube Number CSF Volume CSF Appearance CSF Color CSF WBC CSF RBC CSF Neutrophils CSF Lymphocytes CSF Appearance (b) CSF Glucose CSF Total Protein CSF C.neoform/gat PCR CSF CMV DNA (PCR) CSF Enterovirus (PCR) CSF E. coli K1 (PCR) CSF H. influenzae (PCR) CSF HSV I (PCR) CSF HSV II (PCR) CSF HHV 6 (PCR) CSF L.monocytogenes PCR CSF N. meningitidis PCR CSF Parechovirus (PCR) CSF S. agalactiae (PCR) CSF S. pneumoniae (PCR) CSF VZV (PCR) Nasal Screen MRSA (PCR) Nasal S. aureus Screen Nasal MRSA/S.aureus Interp Stool Occult Blood Vancomycin Trough Random Vancomycin Urine Opiates Screen Urine Fentanyl Screen Ur Barbiturates Screen Phenytoin Ur Phencyclidine Scrn Ur Amphetamines Screen U Benzodiazepines Scrn Urine Cocaine Screen U Marijuana (THC) Screen Ethyl Alcohol Respiratory Panel Peter T.pallidum Ab (EIA) Adenovirus (Rapid PCR) B.pert (TEM-PCR) B.parapertussis DNA PCR C. pneumoniae DNA (PCR) Coronavirus OC43 (PCR) Coronavirus HKU1 (PCR) Coronavirus 229E (PCR) COVID-19 (KATELYNN) COVID-19 Clin Com Coronavirus NL63 (PCR) HIV 1&2 Ab/P24 Ag 4thGn Human Metapneumovir PCR Influenza A (RT-PCR) Influenza B (RT-PCR) M. pneumoniae (PCR) Parainfluenza 1 (PCR) Parainfluenza 2 (PCR) Parainfluenza 3 (PCR) Parainfluenza 4 (PCR) RSV (PCR) Entero/Rhino (PCR) SARS-CoV-2 RNA (RT-PCR) Blood Type Antibody Screen 04/05/22 04/05/22 04/06/22 06:26 11:53 06:59 WBC 16.6 H RBC 3.83 L Hgb 11.0 L Hct 34.0 L MCV 88.8 D MCH 28.7 MCHC 32.4 RDW 13.6 Plt Count 345 D MPV 9.3 L Immature Gran % (Auto) Neut % (Auto) Lymph % (Auto) [place] % (Auto) Eos % (Auto) Baso % (Auto) Lymph # (Auto) [place] # (Auto) Eos # (Auto) Baso # (Auto) Abs Immat Gran (auto) Absolute Neuts (auto) Absolute Nucleated RBC 0.000 Nucleated RBC % (auto) 0.0 Smear Tech's Comments ESR PT INR APTT O2 Saturation ABG pH at Pt Temp ABG pCO2 at Pt Temp ABG pO2 at Pt Temp ABG HCO3 ABG Base Excess (Actual) VBG pH VBG pCO2 VBG pO2 VBG HCO3 VBG O2 Saturation VBG Base Excess Sodium 138 Potassium 2.9 L Chloride 108 Carbon Dioxide 21 L Anion Gap 12 BUN 8 L Creatinine 0.60 0.63 Estim Creat Clear Calc 119.4 113.7 Estimated GFR > 60 > 60 POC Glucose Random Glucose 126 H Fasting Glucose Lactic Acid Lactic Acid F/U @ 2Hr Calcium 7.5 L Phosphorus 2.9 Magnesium 1.4 L* Total Bilirubin Direct Bilirubin AST ALT Alkaline Phosphatase Ammonia Total Creatine Kinase Troponin I High Sens C-Reactive Protein Total Protein Albumin 2.1 L Triglycerides 45 Vitamin B1 Vitamin B12 Folate Procalcitonin TSH Urine Color Urine Appearance Urine pH Ur Specific [place]rm[place] Urine Protein Urine Glucose (UA) Urine Ketones Urine Blood Urine Nitrite Ur Leukocyte Esterase Urine RBC Urine WBC Ur Squamous Epith Cells Urine Bacteria Hyaline Casts Urine Creatinine CSF Tube Number CSF Volume CSF Appearance CSF Color CSF WBC CSF RBC CSF Neutrophils CSF Lymphocytes CSF Appearance (b) CSF Glucose CSF Total Protein CSF C.neoform/gat PCR CSF CMV DNA (PCR) CSF Enterovirus (PCR) CSF E. coli K1 (PCR) CSF H. influenzae (PCR) CSF HSV I (PCR) CSF HSV II (PCR) CSF HHV 6 (PCR) CSF L.monocytogenes PCR CSF N. meningitidis PCR CSF Parechovirus (PCR) CSF S. agalactiae (PCR) CSF S. pneumoniae (PCR) CSF VZV (PCR) Nasal Screen MRSA (PCR) Nasal S. aureus Screen Nasal MRSA/S.aureus Interp Stool Occult Blood Vancomycin Trough Random Vancomycin Urine Opiates Screen Urine Fentanyl Screen Ur Barbiturates Screen Phenytoin Ur Phencyclidine Scrn Ur Amphetamines Screen U Benzodiazepines Scrn Urine Cocaine Screen U Marijuana (THC) Screen Ethyl Alcohol Respiratory Panel Peter T.pallidum Ab (EIA) Adenovirus (Rapid PCR) B.pert (TEM-PCR) B.parapertussis DNA PCR C. pneumoniae DNA (PCR) Coronavirus OC43 (PCR) Coronavirus HKU1 (PCR) Coronavirus 229E (PCR) COVID-19 (KATELYNN) COVID-19 Clin Com Coronavirus NL63 (PCR) HIV 1&2 Ab/P24 Ag 4thGn Human Metapneumovir PCR Influenza A (RT-PCR) Influenza B (RT-PCR) M. pneumoniae (PCR) Parainfluenza 1 (PCR) Parainfluenza 2 (PCR) Parainfluenza 3 (PCR) Parainfluenza 4 (PCR) RSV (PCR) Entero/Rhino (PCR) SARS-CoV-2 RNA (RT-PCR) Blood Type Antibody Screen 04/06/22 04/07/22 04/07/22 06:59 07:12 07:12 WBC RBC Hgb Hct MCV MCH MCHC RDW Plt Count MPV Immature Gran % (Auto) Neut % (Auto) Lymph % (Auto) [place] % (Auto) Eos % (Auto) Baso % (Auto) Lymph # (Auto) [place] # (Auto) Eos # (Auto) Baso # (Auto) Abs Immat Gran (auto) Absolute Neuts (auto) Absolute Nucleated RBC Nucleated RBC % (auto) Smear Tech's Comments ESR PT INR APTT O2 Saturation ABG pH at Pt Temp ABG pCO2 at Pt Temp ABG pO2 at Pt Temp ABG HCO3 ABG Base Excess (Actual) VBG pH VBG pCO2 VBG pO2 VBG HCO3 VBG O2 Saturation VBG Base Excess Sodium 135 138 Potassium 3.6 D 3.6 Chloride 109 H 110 H Carbon Dioxide 20 L 22 Anion Gap 10 L 10 L BUN 12 12 Creatinine 0.60 0.59 0.61 Estim Creat Clear Calc 119.4 121.4 117.5 Estimated GFR > 60 > 60 > 60 POC Glucose Random Glucose 131 H 122 H Fasting Glucose Lactic Acid Lactic Acid F/U @ 2Hr Calcium 7.5 L 7.7 L Phosphorus 2.5 L 2.4 L Magnesium 1.8 1.6 Total Bilirubin Direct Bilirubin AST ALT Alkaline Phosphatase Ammonia Total Creatine Kinase Troponin I High Sens C-Reactive Protein Total Protein Albumin Triglycerides Vitamin B1 Vitamin B12 Folate Procalcitonin TSH Urine Color Urine Appearance Urine pH Ur Specific [place]rm[place] Urine Protein Urine Glucose (UA) Urine Ketones Urine Blood Urine Nitrite Ur Leukocyte Esterase Urine RBC Urine WBC Ur Squamous Epith Cells Urine Bacteria Hyaline Casts Urine Creatinine CSF Tube Number CSF Volume CSF Appearance CSF Color CSF WBC CSF RBC CSF Neutrophils CSF Lymphocytes CSF Appearance (b) CSF Glucose CSF Total Protein CSF C.neoform/gat PCR CSF CMV DNA (PCR) CSF Enterovirus (PCR) CSF E. coli K1 (PCR) CSF H. influenzae (PCR) CSF HSV I (PCR) CSF HSV II (PCR) CSF HHV 6 (PCR) CSF L.monocytogenes PCR CSF N. meningitidis PCR CSF Parechovirus (PCR) CSF S. agalactiae (PCR) CSF S. pneumoniae (PCR) CSF VZV (PCR) Nasal Screen MRSA (PCR) Nasal S. aureus Screen Nasal MRSA/S.aureus Interp Stool Occult Blood Vancomycin Trough Random Vancomycin Urine Opiates Screen Urine Fentanyl Screen Ur Barbiturates Screen Phenytoin Ur Phencyclidine Scrn Ur Amphetamines Screen U Benzodiazepines Scrn Urine Cocaine Screen U Marijuana (THC) Screen Ethyl Alcohol Respiratory Panel Peter T.pallidum Ab (EIA) Adenovirus (Rapid PCR) B.pert (TEM-PCR) B.parapertussis DNA PCR C. pneumoniae DNA (PCR) Coronavirus OC43 (PCR) Coronavirus HKU1 (PCR) Coronavirus 229E (PCR) COVID-19 (KATELYNN) COVID-19 Clin Com Coronavirus NL63 (PCR) HIV 1&2 Ab/P24 Ag 4thGn Human Metapneumovir PCR Influenza A (RT-PCR) Influenza B (RT-PCR) M. pneumoniae (PCR) Parainfluenza 1 (PCR) Parainfluenza 2 (PCR) Parainfluenza 3 (PCR) Parainfluenza 4 (PCR) RSV (PCR) Entero/Rhino (PCR) SARS-CoV-2 RNA (RT-PCR) Blood Type Antibody Screen 04/07/22 09:21 WBC RBC Hgb Hct MCV MCH MCHC RDW Plt Count MPV Immature Gran % (Auto) Neut % (Auto) Lymph % (Auto) [place] % (Auto) Eos % (Auto) Baso % (Auto) Lymph # (Auto) [place] # (Auto) Eos # (Auto) Baso # (Auto) Abs Immat Gran (auto) Absolute Neuts (auto) Absolute Nucleated RBC Nucleated RBC % (auto) Smear Tech's Comments ESR PT INR APTT O2 Saturation ABG pH at Pt Temp ABG pCO2 at Pt Temp ABG pO2 at Pt Temp ABG HCO3 ABG Base Excess (Actual) VBG pH VBG pCO2 VBG pO2 VBG HCO3 VBG O2 Saturation VBG Base Excess Sodium Potassium Chloride Carbon Dioxide Anion Gap BUN Creatinine Estim Creat Clear Calc Estimated GFR POC Glucose Random Glucose Fasting Glucose Lactic Acid Lactic Acid F/U @ 2Hr Calcium Phosphorus Magnesium Total Bilirubin Direct Bilirubin AST ALT Alkaline Phosphatase Ammonia Total Creatine Kinase Troponin I High Sens C-Reactive Protein Total Protein Albumin Triglycerides Vitamin B1 Vitamin B12 Folate Procalcitonin TSH Urine Color Urine Appearance Urine pH Ur Specific [place] Urine Protein Urine Glucose (UA) Urine Ketones Urine Blood Urine Nitrite Ur Leukocyte Esterase Urine RBC Urine WBC Ur Squamous Epith Cells Urine Bacteria Hyaline Casts Urine Creatinine CSF Tube Number CSF Volume CSF Appearance CSF Color CSF WBC CSF RBC CSF Neutrophils CSF Lymphocytes CSF Appearance (b) CSF Glucose CSF Total Protein CSF C.neoform/gat PCR CSF CMV DNA (PCR) CSF Enterovirus (PCR) CSF E. coli K1 (PCR) CSF H. influenzae (PCR) CSF HSV I (PCR) CSF HSV II (PCR) CSF HHV 6 (PCR) CSF L.monocytogenes PCR CSF N. meningitidis PCR CSF Parechovirus (PCR) CSF S. agalactiae (PCR) CSF S. pneumoniae (PCR) CSF VZV (PCR) Nasal Screen MRSA (PCR) Nasal S. aureus Screen Nasal MRSA/S.aureus Interp Stool Occult Blood Vancomycin Trough Random Vancomycin Urine Opiates Screen Urine Fentanyl Screen Ur Barbiturates Screen Phenytoin Ur Phencyclidine Scrn Ur Amphetamines Screen U Benzodiazepines Scrn Urine Cocaine Screen U Marijuana (THC) Screen Ethyl Alcohol Respiratory Panel Peter T.pallidum Ab (EIA) Adenovirus (Rapid PCR) B.pert (TEM-PCR) B.parapertussis DNA PCR C. pneumoniae DNA (PCR) Coronavirus OC43 (PCR) Coronavirus HKU1 (PCR) Coronavirus 229E (PCR) COVID-19 (KATELYNN) COVID-19 Clin Com Coronavirus NL63 (PCR) HIV 1&2 Ab/P24 Ag 4thGn Human Metapneumovir PCR Influenza A (RT-PCR) Influenza B (RT-PCR) M. pneumoniae (PCR) Parainfluenza 1 (PCR) Parainfluenza 2 (PCR) Parainfluenza 3 (PCR) Parainfluenza 4 (PCR) RSV (PCR) Entero/Rhino (PCR) SARS-CoV-2 RNA (RT-PCR) Blood Type B Positive Antibody Screen NEGATIVE Airway Mallampati Class: II TM Dist: >3cm Neck ROM: Limited Loose/Missing/Broken Teeth: Yes (Edentulous) Heart: RRR Lungs: CTAB Assessment and Plan Assessment Anesthesia Assessment: Anesthesia Plan Discussed (Discussed with patient's HCP) and Chart Reviewed Final Anesthetic Review Family History of Problems with Anesthesia: Unobtainable History of Problems with Anesthesia: Unobtainable NPO: Yes ASA Class: IV Final Preanesthetic Review: No Changes in Pt Med Stat, Meds/Allgs Chart Reviewed, Consent Obtained/Reviewed, Anes Risks/Benef Reviewed and DNR Form (If Appl.) Patient Risk: High Procedure Risk: Intermediate Assessment/Block/Sedation in SS: Assess/Block/Sedation-SS Anesthetic Plan Anesthetic Plan: GA Disposition: Standard PACU and Inp. Admit - Standard Bed
[2022-04-07] MEDS: Lactated Ringers 1,000 ML 100 ML IVCONT (14:14)
--- NOTE | 2022-04-07 14:16 | PC.NURSE ---
Patient eyes were open. Patient disoriented and unable to answer questions. Appears comfortable in bed. No s/s of non-verbal pain. All answers to questions in computer are from patient's HCP, Ashwin Cisneros paperwork in chart. Unable to add additional surgical/past medical history to chart due to patient disorientation. Triple lumen PICC line to right arm flushed with saline flushes with all three ports having positive blood return. Dressing C/D/I. Patient identification verified with floor RN today, and HCP via telephone. Suazo catheter patent.
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
--- NOTE | 2022-04-07 15:34 | MHC.SHP ---
Pre-Procedural Eval Section A Date of Service: 04/07/22 The patient is an INPATIENT: Yes Changes since office visit: Yes Patient answered all questions The History & Physical has been completed within 30 days and I have reviewed it.: Yes Section B Chief Complaint: Seizure FABIENNE Encephalopathy Allergies: Allergies Allergy/AdvReac Type Severity Reaction Status Date / Time No Known Allergies Allergy Verified 04/07/22 13:53 [No Known Allergies*] Plan I have reviewed the history and physical and performed a pertinent physical examination on my patient. No changes have occurred unless specified.
--- NOTE | 2022-04-07 15:35 | P.OP_ITS ---
Operative Note Operative Note Date of Service: 04/07/22 Narrative: Operative note by [facility] Preoperative diagnosis:1. Nonhealing left foot ulcer with gangrene 2. Contracture Postoperative diagnosis: Same Procedure: 1. Left above knee amputation 2. Myodesis Surgeon:Piero Valdovinos M.D. Bartender Helper: Barrington ARRIETA Anesthesia: General Specimens: 1 Drains: None Estimated blood loss: 100 mL Indications: Very pleasant 66-year-old gentleman with prior history meningeal encephalitis sepsis pneumonia alcohol withdrawal and encephalopathy presents for nonhealing ulcers of the left foot. It has been progressively getting worse and he has developed contractures of that leg. He is nonambulatory. A decision was made to perform an above knee amputation. Discussion was had with the proxy yesterday. Consented today. The patient has signed the informed consent after reviewing risks, complications, benefits, and alternatives previously discussed with the patient. The patient was given the opportunity to ask any additional questions or voice any concerns. All questions were answered to the patient's satisfaction. Procedure in detail: Patient was brought to the operating room prior to which a time-out was called for patient identification site verification. Left leg was prepped and draped in standard surgical fashion. A fishmouth incision was carried out approximately 10 cm above the knee joint. We brought this all the way down to the femur. The femur was encircled. And we then released all the muscle and fascial bands around. We dissected out and identified and suture ligated the SFA with a 2-0 silk tie. In addition we identified the sciatic nerve and ligated this well as well. We then used a power saw to transect the femur. We removed the posterior edge in created the posterior flap of this above knee amputation as well. Once this was all accomplished we passed the specimen off the table. We irrigated the wound out thoroughly. We then filed down the bony edge. We used a drill to go through the bone femur. Through this we used 2-0 silk ties to buttress muscle and perform myodesis. Once this was accomplished we then obtain adequate hemostasis. We approximated the 2 flaps with 2 0 poly Sorb in an interrupted fashion. Finally we closed skin with 2 0 nylon in a mattress fashion along with skin clips. Xeroform and a sterile dressing were applied. At the end the case sponge instrument counts were correct. Patient tolerated the procedure well and returned to recovery with stable vitals. This note is constructed using voice recognition software. While every effort has been made to ensure accuracy, belt press operator errors may have been included. Thank you for allowing me to participate in the care of your patient. Yours sincerely, Piero Valdovinos MD, FACS, R.P.V.I.
[2022-04-07] MEDS: Morphine Sulfate 2 MG/ML CARTRIDGE 1 MG IVPUSH (18:47)
[2022-04-07] MEDS: Fat Emulsions 20% 250 ML 23 ML IV (18:50)
[2022-04-08] MEDS: Fat Emulsions 20% 250 ML 23 ML IV ×2 (00:36→19:28)
[2022-04-08] MEDS: Lactated Ringers 1,000 ML 100 ML IVCONT (00:39)
[2022-04-08] MEDS: Metoprolol Tartrate 5 MG/5 ML VIAL 2.5 MG IVPUSH ×4 (00:41→20:55)
[2022-04-08] MEDS: Heparin Sodium,Porcine Flush 50 UNITS, 0.9 % Sodium Chloride Flush 5 ML IVFLUSH ×3 (00:41→15:53)
[2022-04-08] MEDS: metroNIDAZOLE/NS 500 MG/100 ML PIGGYBACK 100 MG IV ×3 (03:25→20:54)
[2022-04-08 04:00] VITALS: BP 138/62; PULSE 86; RESP 16; TEMP 36.9; O2SAT 100
[2022-04-08] MEDS: levoFLOXacin/D5W 750 MG/150 ML PIGGYBACK 100 MG IV (05:43)
[2022-04-08 06:20] LABS: MANUAL DIFF FLAG NO
[2022-04-08 06:25] LABS: Basophils Percent Auto 0.2 % (0-2); Eosinophils Absolute Auto 0.1 X10*3/uL (0.0-0.4); Eosinophils Percent Auto 0.9 % (0-4); Hematocrit 24.4 % (42.0-52.0); Hemoglobin 7.7 g/dl (14.0-18.0); Imm Gran Abs Auto 0.09 X10*3/uL (0.00-0.03); Imm Gran Pct Auto 0.8 % (0.0-0.4); Lymphocytes Absolute Auto 1.6 X10*3/uL (1.2-4.9); Lymphocytes Percent Auto 13.7 % (20-40); Mean Corpuscular HGB Conc 31.6 g/dl (31.0-36.0); Mean Corpuscular Hemoglobin 29.7 pg (27.0-33.0); Mean Corpuscular Volume 94.2 fL (80.0-98.0); Monocytes Absolute Auto 0.7 X10*3/uL (0.1-1.2); Monocytes Percent Auto 5.9 % (2-11); Neutrophils Absolute Auto 8.9 x10*3/uL (2.0-8.3); Neutrophils Percent Auto 78.5 % (45-73); Platelet Count 279 X10*3/uL (160-400); Red Blood Count 2.59 X10*6/uL (4.60-5.80); Red Cell Distribution Width 14.6 % (11.0-16.0); White Blood Count 11.4 X10*3/uL (4.8-10.8)
[2022-04-08 08:00] VITALS: BP 143/68; PULSE 94; RESP 20; TEMP 37.3; O2SAT 98
[2022-04-08 08:27] LABS: Anion Gap 11 (12-20); Blood Urea Nitrogen 10 mg/dL (9-16); Calcium 6.9 mg/dL (8.4-10.2); Carbon Dioxide 21 mmol/L (22-29); Chloride 97 mmol/L (96-108); Creatinine Clr Calc Pharmacy 106.9; Estimated Glomerular Filt Rate > 60; Glucose Random 781 mg/dL (60-115); Magnesium 1.4 mg/dL (1.6-2.6); Phosphorus 3.5 mg/dL (2.7-4.5); Potassium 4.9 mmol/L (3.3-5.1); Sodium 124 mmol/L (135-145)
[2022-04-08 08:54] LABS: Glucose, Whole Blood 128 mg/dL (60-115)
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
[2022-04-08 10:27] LABS: Estimated Average Glucose 126 mg/dL
[2022-04-08 10:30] LABS: VBG Base Excess 2.9 mmol/L; VBG HCO3 25 mmol/L (22-26); VBG pCO2 30 mmHg; VBG pH 7.53 (7.32-7.43); VBG pO2 61 mmHg
[2022-04-08 10:31] LABS: Venous Blood Gas Refer to POC result
--- NOTE | 2022-04-08 10:39 | MHC.CLN ---
F/U DISCUSSED WITH PHARMACY REVIEWED LABS PT RECEIVING TPN D15AA5 AT 83.33 ML PER HOUR WITH 23ML OF 20% LIPIDS TO PROVIDE 1972 KCALS (30 KCALS/KG BASED ON ADJUSTED IBW), 100G PROTEIN (1.5 G/KG BASED ON ADJUSTED IBW) REPLETE LYTES NEEDED RECOMMEND OBTAINING NEW WEIGHT S/P AMPUTATION
--- NOTE | 2022-04-08 10:40 | HO.VASCPN ---
Subjective Subjective Date of Service: 04/08/22 Patient reports: no new complaints Interval history: Patient seen and examined. Postop day 1 status post left AKA. Appears to be resting comfortably in bed. Does not appear to have any signs of pain. Non communicative so I am unable to get a clear review of systems. Physical Exam Vital Signs: Vital Signs: Last Vital Signs Temp 99.1 F 04/08/22 08:00 Pulse 94 04/08/22 08:00 Resp 20 04/08/22 08:00 BP 143/68 H 04/08/22 08:00 Pulse Ox 98 04/08/22 08:00 O2 Del Method 04/08/22 08:00 O2 Flow Rate 2 04/08/22 08:00 FiO2 94 03/14/22 20:00 BMI result Body Mass Index 25.8 Const: General: cooperative, healthy appearing and no acute distress Orientation/consciousness: oriented to person, oriented to place and oriented to time HEENT: Head: Yes normal to inspection Neck: Carotids: no bruits Chest: Chest palpation & inspection: normal inspection of the chest Resp: Effort & Inspection: normal respiratory effort and able to speak in complete sentences Auscultation: clear to auscultation bilaterally Cardio: Rate: regular rate Heart sounds: S1 normal heart sound present and S2 normal heart sound present GI: Inspection: Yes normal to inspection Skin: General skin exam: no rashes or lesions noted Wounds: amputation site (Left amp dressing clean dry intact) Neuro: General: oriented to person, oriented to place, oriented to time and CN's II-XI intact bilaterally Extrem: General: Yes normal to inspection, Yes full ROM and Yes no clubbing, cyanosis or edema Psych: Appearance: grossly normal and well kempt Speech and movement: Normal speech and movement present Affect: normal affect Progress Note: A&P Assessment and plan (1) Above knee amputation of left lower extremity: Status: Acute Assessment and Plan: In short patient appears to be doing well status post left above knee amputation. Pain appears to be reasonably well controlled. White count has decreased nicely. Will plan for dressing change for tomorrow. Thank you for allowing us to assist in his care. Time Spent With Patient Time: Total time spent is greater than 50% in coordination of care (as documented) at patient's floor/unit and/or counseling patient: Procedures Date of Service Date of Service: 04/08/22 Quality Stroke Does the patient have a stroke diagnosis?: No VTE Prior VTE?: No VTE Risk Level:: Medical - moderate - high VTE Device Contraindication: Treatment Not Indicated VTE Drug Contraindication: N/A - Med Ordered
[2022-04-08 10:57] LABS: Creatinine Clr Calc Pharmacy 130.3; Estimated Glomerular Filt Rate > 60
[2022-04-08 11:12] LABS: Blood Urea Nitrogen 11 mg/dL (9-16); Creatinine Clr Calc Pharmacy 130.3; Estimated Glomerular Filt Rate > 60; Magnesium 1.5 mg/dL (1.6-2.6)
--- NOTE | 2022-04-08 11:12 | MHC.SLORD ---
Speech Language Pathology Order Status: Pt would not wake to verbal stimuli, change in position, and sternal rub. Pt not appropriate for PO trials at this time due to lethargic state.
[2022-04-08 11:20] LABS: Anion Gap 10 (12-20); Calcium 7.3 mg/dL (8.4-10.2); Carbon Dioxide 25 mmol/L (22-29); Chloride 107 mmol/L (96-108); Glucose Random 126 mg/dL (60-115); Potassium 4.3 mmol/L (3.3-5.1); Sodium 138 mmol/L (135-145)
[2022-04-08] MEDS: 0.9 % Sodium Chloride Flush 3 ML SYRINGE IVFLUSH ×2 (11:52→15:53)
[2022-04-08 12:00] VITALS: BP 135/65; PULSE 86; RESP 20; TEMP 36.9; O2SAT 99
[2022-04-08 12:05] LABS: Albumin Level 1.7 g/dL (3.5-5.0)
[2022-04-08] MEDS: Magnesium Sulfate/H2O 2 GM/50 ML PIGGYBACK IV (12:09)
--- NOTE | 2022-04-08 13:36 | HO.POSTANES ---
Post Anesthesia Evaluation Post Anesthesia Evaluation Vital Signs: Vital Signs Temp Pulse Resp BP Pulse Ox O2 Del Method O2 Flow Rate 04/08/22 12:00 98.4 F 86 20 135/65 99 Nasal Cannula 2 04/08/22 08:00 99.1 F 94 20 143/68 H 98 Nasal Cannula 2 04/08/22 04:00 98.4 F 86 16 138/62 100 Nasal Cannula 2 Anesthesia: General Mental Status: Awake Pain Control: Satisfactory Nausea/Vomiting: None Hydration: Adequate Anesthesia-Related Issues: No Anes. Related Issues
[2022-04-08 14:09] VITALS: O2SAT 99
[2022-04-08] MEDS: Morphine Sulfate 2 MG/ML CARTRIDGE 1 MG IVPUSH (14:38)
--- NOTE | 2022-04-08 15:09 | MHC.CM.PN ---
Per ROUNDS discussion, Patient is s/p (L) BKA and receiving TPN/not medically cleared for dc. SNF/LTC appears likely and CM will follow.
[2022-04-08 15:13] VITALS: BP 135/75; PULSE 84; RESP 19; TEMP 37.1; O2SAT 98
[2022-04-08 20:00] VITALS: BP 147/67; PULSE 91; RESP 18; TEMP 37; O2SAT 97
[2022-04-09] MEDS: Heparin Sodium,Porcine Flush 50 UNITS, 0.9 % Sodium Chloride Flush 5 ML IVFLUSH ×3 (00:18→16:03)
[2022-04-09] MEDS: 0.9 % Sodium Chloride Flush 3 ML SYRINGE IVFLUSH ×3 (00:19→16:03)
[2022-04-09 00:30] VITALS: BP 132/61; PULSE 91; RESP 20; TEMP 36.8; O2SAT 97
[2022-04-09] MEDS: Fat Emulsions 20% 250 ML 23 ML IV (01:46)
[2022-04-09 04:00] VITALS: BP 152/70; PULSE 95; RESP 20; TEMP 36.8; O2SAT 100
[2022-04-09] MEDS: Metoprolol Tartrate 5 MG/5 ML VIAL 2.5 MG IVPUSH ×4 (04:38→21:31)
[2022-04-09] MEDS: metroNIDAZOLE/NS 500 MG/100 ML PIGGYBACK 100 MG IV ×2 (04:38→10:14)
[2022-04-09 07:13] VITALS: BP 129/58; PULSE 69; RESP 16; TEMP 36.5; O2SAT 99
[2022-04-09 07:23] LABS: Hematocrit 26.7 % (42.0-52.0); Hemoglobin 8.6 g/dl (14.0-18.0); Mean Corpuscular HGB Conc 32.2 g/dl (31.0-36.0); Mean Corpuscular Hemoglobin 29.5 pg (27.0-33.0); Mean Corpuscular Volume 91.4 fL (80.0-98.0); Mean Platelet Volume 9.2 fL (9.4-12.4); Platelet Count 310 X10*3/uL (160-400); Red Blood Count 2.92 X10*6/uL (4.60-5.80); Red Cell Distribution Width 14.6 % (11.0-16.0); White Blood Count 13.9 X10*3/uL (4.8-10.8)
[2022-04-09 07:55] LABS: Blood Urea Nitrogen 11 mg/dL (9-16); Calcium 7.6 mg/dL (8.4-10.2); Creatinine Clr Calc Pharmacy 135.2; Estimated Glomerular Filt Rate > 60; Glucose Random 152 mg/dL (60-115); Magnesium 1.7 mg/dL (1.6-2.6); Phosphorus 3.1 mg/dL (2.7-4.5)
[2022-04-09 08:04] LABS: Anion Gap 8 (12-20); Carbon Dioxide 25 mmol/L (22-29); Chloride 104 mmol/L (96-108); Potassium 4.4 mmol/L (3.3-5.1); Sodium 133 mmol/L (135-145)
--- NOTE | 2022-04-09 10:48 | MHC.CLN ---
F/U DISCUSSED WITH PHARMACY REVIEWED LABS PT TO CONTINUE RECEIVING TPN D15AA5 AT 83.33 ML PER HOUR WITH 23ML OF 20% LIPIDS TO PROVIDE 1972 KCALS (30KCALS/KG BASED ON ADJUSTED IBW), 100G PROTEIN (1.5G/KG BASED ON ADJUSTED IBW) REPLETE LYTES NEEDED RECOMMEND OBTAINING NEW WEIGHT S/P AMPUTATION
[2022-04-09 10:58] LABS: Albumin Level 1.7 g/dL (3.5-5.0)
--- NOTE | 2022-04-09 11:02 | MHC.SLORD ---
Speech Language Pathology Order Status: Attempted to see patient this am. Pt lethargic, sonambulent. Provided minimal oral care, pt did not wake, minimally responsive today, no appropriate for re-assessment of swallow. CONVEYOR SYSTEM DISPATCHER will continue to follow.
[2022-04-09 11:34] VITALS: BP 140/64; PULSE 88; RESP 16; TEMP 36.9; O2SAT 98
--- NOTE | 2022-04-09 13:50 | HO.VASCPN ---
Subjective Subjective Date of Service: 04/09/22 Patient reports: no new complaints and feels better Interval history: Complex 66-year-old gentleman status post left above knee amputation. He is minimally responsive. He seems to be resting comfortably in bed and does not appear to be in any pain. Unable to obtain any further review of systems. Physical Exam Vital Signs: Vital Signs: Last Vital Signs Temp 98.5 F 04/09/22 11:34 Pulse 88 04/09/22 11:34 Resp 16 04/09/22 11:34 BP 140/64 H 04/09/22 11:34 Pulse Ox 98 04/09/22 11:34 O2 Del Method 04/09/22 11:34 O2 Flow Rate 2 04/09/22 11:34 FiO2 94 03/14/22 20:00 BMI result Body Mass Index 25.8 Const: General: cooperative, healthy appearing and no acute distress Orientation/consciousness: oriented to person, oriented to place and oriented to time HEENT: Head: Yes normal to inspection Neck: Carotids: no bruits Chest: Chest palpation & inspection: normal inspection of the chest Resp: Effort & Inspection: normal respiratory effort and able to speak in complete sentences Auscultation: clear to auscultation bilaterally Cardio: Rate: regular rate Heart sounds: S1 normal heart sound present and S2 normal heart sound present GI: Inspection: Yes normal to inspection Skin: General skin exam: no rashes or lesions noted Wounds: amputation site (Incision line healing well) Neuro: General: oriented to person, oriented to place, oriented to time and CN's II-XI intact bilaterally Extrem: General: Yes normal to inspection, Yes full ROM and Yes no clubbing, cyanosis or edema Psych: Appearance: grossly normal and well kempt Speech and movement: Normal speech and movement present Affect: normal affect Progress Note: A&P Assessment and plan (1) Above knee amputation of left lower extremity: Status: Acute Assessment and Plan: In short patient is doing relatively well status post left above knee amputation. Dressing was removed. We can leave that open to air. Please start anticoagulation as required. Should he recover and become stable he can follow up with me as an outpatient for suture and staple removal. We will follow on an as-needed basis. Thank you for allowing us to assist in his care. Time Spent With Patient Time: Total time spent is greater than 50% in coordination of care (as documented) at patient's floor/unit and/or counseling patient: Procedures Date of Service Date of Service: 04/09/22 Quality Stroke Does the patient have a stroke diagnosis?: No VTE Prior VTE?: No VTE Risk Level:: Medical - moderate - high VTE Device Contraindication: Treatment Not Indicated VTE Drug Contraindication: N/A - Med Ordered
[2022-04-09 14:00] VITALS: BP 137/65; PULSE 78; RESP 17; TEMP 36.3; O2SAT 97
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
[2022-04-09] MEDS: Enoxaparin Sodium 80 MG/0.8 ML SYRINGE SUBCUT (16:02)
[2022-04-09 21:28] VITALS: BP 135/62; PULSE 85; RESP 18; TEMP 36.6; O2SAT 98
[2022-04-10] VITALS (20 sets, daily range): BP systolic 78–157; BP diastolic 52–71; PULSE 80–130; RESP 19–33; TEMP 36.3–38.5; O2SAT 92–99; BMI 25.7
[2022-04-10] MEDS: Heparin Sodium,Porcine Flush 50 UNITS, 0.9 % Sodium Chloride Flush 5 ML IVFLUSH ×2 (00:41→07:54)
[2022-04-10] MEDS: 0.9 % Sodium Chloride Flush 3 ML SYRINGE IVFLUSH ×3 (00:48→15:52)
[2022-04-10] MEDS: Enoxaparin Sodium 80 MG/0.8 ML SYRINGE SUBCUT (02:55)
[2022-04-10] MEDS: Metoprolol Tartrate 5 MG/5 ML VIAL 2.5 MG IVPUSH ×2 (02:56→07:54)
[2022-04-10] MEDS: oxyCODONE HCl Immed Release 5 MG TABLET PO (03:42)
[2022-04-10 07:41] LABS: Hemoglobin 9.2 g/dl (14.0-18.0); Mean Corpuscular HGB Conc 31.7 g/dl (31.0-36.0); Mean Corpuscular Hemoglobin 28.7 pg (27.0-33.0); Mean Corpuscular Volume 90.3 fL (80.0-98.0); Mean Platelet Volume 9.2 fL (9.4-12.4); Platelet Count 319 X10*3/uL (160-400); Red Blood Count 3.21 X10*6/uL (4.60-5.80); Red Cell Distribution Width 14.7 % (11.0-16.0); White Blood Count 17.2 X10*3/uL (4.8-10.8)
[2022-04-10 07:58] LABS: Anion Gap 10 (12-20); Blood Urea Nitrogen 13 mg/dL (9-16); Calcium 7.8 mg/dL (8.4-10.2); Carbon Dioxide 27 mmol/L (22-29); Chloride 100 mmol/L (96-108); Creatinine Clr Calc Pharmacy 137.8; Estimated Glomerular Filt Rate > 60; Glucose Random 154 mg/dL (60-115); Magnesium 1.6 mg/dL (1.6-2.6); Phosphorus 3.1 mg/dL (2.7-4.5); Potassium 4.7 mmol/L (3.3-5.1); Sodium 132 mmol/L (135-145)
[2022-04-10 08:08] LABS: Albumin Level 1.8 g/dL (3.5-5.0); Triglycerides 49 mg/dL
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
[2022-04-10] MEDS: Pantoprazole Sodium 40 MG/10 ML VIAL IVPUSH (13:10)
[2022-04-10 13:13] LABS: Hematocrit 24.8 % (42.0-52.0)
[2022-04-10] MEDS: 0.9 % Sodium Chloride 500 ML 999 ML IV (13:17)
[2022-04-10 13:28] LABS: INTERNATIONAL NORM RATIO 1.6 (0.9-1.1); Prothrombin Time 18.6 SEC (10.0-13.1)
--- NOTE | 2022-04-10 13:45 | MHC.SL.SWA ---
Speech Pathologist Impression:Oropharyngeal dysphagia Risk of Aspiration Due to: Neurological Condition Reduced Cognition Dysphasia Diet Status: NPO. Provide patient with frequent oral care for comfort. Liquid Consistency and Strategies for Safe Swallow: Liquid Intake Recommendation: NPO Solid Food Consistency: Dietary Recommendations: NPO Oral Medication Intake: NPO Please contact the pharmacy regarding appropriate crushable or liquid drug formulations that are available whenever modified delivery is recommended. Supervision While Eating and Drinking for Safe Swallow: PO with PACKAGING CLERK Recommendation for Speech: Inpatient Speech Therapy Frequency/Duration: M-F while inpatient. Date Range for Service Req: Timeline to reassess: Patent Drafter Clinican/Clinical Fellow: No Supervisory Statement: I have reviewed and agree with the student/clinical fellow's documentation: N/A Speech Language Pathologist: Alison Hunter M.A., CCC-PACKAGING CLERK
[2022-04-10] MEDS: Albumin Human 25 % 100 ML IV ×3 (14:15→16:13)
--- NOTE | 2022-04-10 14:39 | P.CNGI_ITS ---
History of Present Illness Data of Consult Service Date: 04/10/22 Requesting physician: Danyell Liang Primary Care Provider: Unknown Physician HPI Reason for consult: GI bleeding 65 YM with history of hypertension, hyperlipidemia, cardiomyopathy, history of seizures, history of prior DVT on Lovenox,? history of alcohol abuse on naltrexone, and encephalopathy admitted 38 days ago for seizure with question of alcohol withdrawal, UTI with sepsis, and encephalopathy Pt's hospital course has been complicated by a nonhealing left foot vascular ulcer with recent above the knee amputation, acute kidney injury, now on TPN, being planned for PEG in DNR/DNI GI consulted due to an episode of bloody diarrhea earlier today followed by hematemesis. Pt was on Lovenox which was stopped (last dose given at 3 am today) Labs showed a decrease in H & H from 9.2 & 29 this am to 8 & 24.8 Pt is uanble to provide any hx due to altered MS. No report of any past endoscopic procedures in [facility] Review of Systems Review of Systems: Yes Unobtainable due to mental status [facility] Past Medical History Medical History (Updated 05/27/22 @ 00:02 by Augusto Ferguson) Above knee amputation of left lower extremity Alcohol abuse Blood per rectum Cardiomyopathy Cellulitis Dementia DVT (deep venous thrombosis) DVT of deep femoral vein GERD (gastroesophageal reflux disease) Hepatitis Hepatitis C antibody positive in blood Hypertension PAD (peripheral artery disease) Seizure UTI (urinary tract infection) Wound dehiscence Functional capacity: bed bound Family History Family History Father No problems noted. Mother No problems noted. Brother Cancer Sister No problems noted. Family history: reviewed and not pertinent Surgical History Surgical History History of esophagogastroduodenoscopy (EGD) Hx of AKA (above knee amputation) S/P percutaneous endoscopic gastrostomy (PEG) tube placement Social History Social History (Updated 05/15/22 @ 17:31 by BERNY Davison) Household Members: Unknown / Unable to assess Housing: Unknown / Unable to assess Unable to assess alcohol history related to: Unable to respond Alcohol intake: former Patient Tobacco Use Status: Former Tobacco user Cigarettes Per Day: 7 Substance Use Type: Unknown Advance Directives Date on File: 10/11/20 service: No Current occupational status: unemployed and disabled Meds Allergies Allergy/AdvReac Type Severity Reaction Status Date / Time No Known Allergies Allergy Verified 05/07/22 10:48 [No Known Allergies*] Active Medications: Current Medications Acetaminophen (Acetaminophen Supp 650 Mg Supp.Rect) 650 mg [place] Q6H PRN PRN Reason: fever Last Admin: 03/29/22 05:54 Dose: 650 mg Albuterol Sulfate (Albuterol Sulfate (0.083%) 2.5 Mg/3 Ml Vial.Neb) 2.5 mg INHALE ONCE PRN PRN Reason: Wheezing Chlorhexidine Gluconate (Chlorhexidine Gluc Oral Rinse 15 Ml Mouthwash) 15 ml BUCCAL DAILY [facility] Heparin Sodium (Porcine) 50 (units/ Sodium Chloride 5 ml) 0 units IVFLUSH QSHIFT [facility] Last Admin: 04/10/22 07:54 Dose: 50 unit Docusate Sodium (Docusate Sodium 100 Mg Capsule) 100 mg PO DAILY PRN PRN Reason: Constipation Levetiracetam (Keppra) 500 mg in 100 mls @ 400 mls/hr IV BID [facility] Last Infusion: 03/31/22 11:09 Dose: Infused Magnesium Sulfate 10 meq/Potassium Phosphate 40 mmol/Calcium Gluconate 9.3 meq/Sodium Acetate 80 meq/Potassium Acetate 70 meq/Multivitamins 10 ml/ Trace Metals 1 ml/ Amino Acids/Dextrose 2,000 mls @ 83.333 mls/hr IV DAILY@1800 [facility] Stop: 04/10/22 17:59 Last Admin: 04/09/22 18:28 Dose: 83.33 mls/hr Sodium Chloride 40 meq/Magnesium Sulfate 10 meq/Potassium Phosphate 40 mmol/Calcium Gluconate 9.3 meq/Sodium Acetate 80 meq/Potassium Acetate 70 meq/Multivitamins 10 ml/ Trace Metals 1 ml/ Amino Acids/Dextrose 2,000 mls @ 83.333 mls/hr IV DAILY@1800 [facility] Stop: 04/11/22 17:59 Fat Emulsion Intravenous (Intralipid) 138 mls @ 23 mls/hr IV DAILY@0000,1800 [facility] Stop: 04/11/22 05:59 Albumin Human (Kedbumin 25 %) 100 mls @ 100 mls/hr IV Q1H [facility] Stop: 04/10/22 15:14 Last Admin: 04/10/22 14:15 Dose: 100 mls/hr Pantoprazole Sodium 80 mg/ (Sodium Chloride) 100 mls @ 10 mls/hr IV .Q10H [facility] Olanzapine (Olanzapine 10 Mg Tablet) 10 mg PO BEDTIME [facility] Last Admin: 03/30/22 19:46 Dose: Not Given Olanzapine (Olanzapine 5 Mg Tablet) 5 mg PO BID PRN PRN Reason: agitation Last Admin: 03/20/22 09:43 Dose: 5 mg Omeprazole (Omeprazole 40 Mg Capsule.Dr) 40 mg PO DAILY@0630 [facility] Last Admin: 04/10/22 03:51 Dose: Not Given Pharmacy Consult (Consult Rx Perform Med Rec) 1 each MISCELLANE ONCE PRN PRN Reason: Consult order Pharmacy Consult (Consult Rx Etoh Phenob Im/Po) 1 each MISCELLANE ONCE PRN; Protocol PRN Reason: Consult order Sodium Chloride (0.9 % Sodium Chloride Flush 3 Ml Syringe) 3 ml IVFLUSH QSHIFT [facility] Last Admin: 04/10/22 07:55 Dose: 3 ml Tamsulosin HCl (Tamsulosin Hcl 0.4 Mg Capsule) 0.4 mg PO DAILY [facility] Last Admin: 04/10/22 07:56 Dose: Not Given Thiamine HCl (Thiamine Hcl 100 Mg Tablet) 100 mg PO DAILY [facility] Last Admin: 04/10/22 07:56 Dose: Not Given Tiotropium [place] (Tiotropium [place] 18 Mcg Cap.W.Dev) 1 puff INHALE RDAILY [facility] Last Admin: 03/14/22 08:16 Dose: Not Given Home Medications Medication Instructions Recorded Confirmed Last Taken Type tamsulosin 0.4 mg capsule 0.4 mg PO DAILY 04/01/20 05/15/22 Unknown History levetiracetam 500 mg tablet 500 mg PO BID 04/21/22 05/15/22 Unknown History acetaminophen 325 mg tablet 650 mg PO Q4H PRN Pain 05/15/22 05/15/22 Unknown History amlodipine 10 mg tablet 5 mg feeding tube DAILY 05/15/22 05/15/22 Unknown History bisacodyl 10 mg rectal suppository 10 mg [place] DAILY PRN Constipation 05/15/22 05/15/22 Unknown History ceftriaxone 1 gram intravenous 1 g IV DAILY 05/15/22 05/15/22 Unknown History solution molnupiravir 200 mg capsule (EUA) 800 mg PO Q12H 05/15/22 05/15/22 Unknown History olanzapine 5 mg tablet (Zyprexa) 5 mg feeding tube BID 05/15/22 05/15/22 Unknown History oxycodone 5 mg tablet 5 mg PO BID@0800,2100 05/15/22 05/15/22 Unknown History oxycodone 5 mg tablet 5 mg PO ONCE PRN 30 minutes prior 05/15/22 05/15/22 Unknown History to wound care oxycodone 5 mg tablet 5 mg PO Q6H PRN pain score 7-10 05/15/22 05/15/22 Unknown History vancomycin 1.25 gram intravenous 1.5 g IV Q24H 05/15/22 05/15/22 Unknown History solution Physical Exam Vital Signs: Vital Signs: Last Vital Signs Temp 98.3 F 04/10/22 14:00 Pulse 121 H 04/10/22 14:00 Resp 20 04/10/22 14:00 BP 78/52 L 04/10/22 14:06 Pulse Ox 96 04/10/22 14:00 O2 Del Method 04/10/22 14:00 O2 Flow Rate 2 04/10/22 14:00 FiO2 94 03/14/22 20:00 Oxygen Flow Rate 2 04/10/22 14:00 BMI result Body Mass Index 25.7 Const: General: awake (Non-communicative) and ill appearing Nutritional Appearance: average body habitus Orientation/consciousness: patient oriented x3 Limitations: altered mental status HEENT: Head: Yes normal to inspection Ears: hearing grossly normal bilaterally Mouth: Normal oral and palatal mucosa present Eyes: Sclerae: sclerae normal Pupils: Equal, round and reactive pupils present Neck: Neck: Yes normal visual inspection Chest: Chest palpation & inspection: normal inspection of the chest Resp: Effort & Inspection: normal respiratory effort Auscultation: clear to auscultation bilaterally Cardio: Palpation: normal PMI Rate: regular rate Rhythm: regular rhythm Heart sounds: S1 normal heart sound present, S2 normal heart sound present and no murmurs GI: Palpation (GI): Soft to palpation, nontender and No hepatosplenomegaly present Auscultation: normal bowel sounds Rectal Exam - Male: Yes deferred Skin: General skin exam: no rashes or lesions noted Neuro: General: patient oriented x3, gait normal and moves all extremities Cranial nerves: Yes Equal, round and reactive pupils present Results Labs 04/16/22 07:00 04/16/22 07:00 Labs: Short CBC 04/10/22 04/10/22 Range/Units 06:50 13:07 WBC 17.2 H (4.8-10.8) X10*3/uL Hgb 9.2 L 8.0 L (14.0-18.0) g/dl Hct 29.0 L 24.8 L (42.0-52.0) % Plt Count 319 (160-400) X10*3/uL BMP 04/10/22 06:50 Sodium 132 L Potassium 4.7 Chloride 100 Carbon Dioxide 27 BUN 13 Creatinine 0.52 Calcium 7.8 L Liver Function 04/10/22 Range/Units 06:50 Albumin 1.8 L (3.5-5.0) g/dL Microbiology Microbiology Results: Microbiology 03/29/22 06:33 Blood - Venous Blood Culture - Final No growth after 5 days. 03/29/22 06:33 Blood - Venous Blood Culture - Final No growth after 5 days. 03/26/22 14:34 Urine Catheterized - Straight Catheter Urine Culture - Final Proteus vulgaris Enterococcus faecalis 03/26/22 03:03 Blood - Venous Blood Culture - Final No growth after 5 days. 03/26/22 03:03 Blood - Venous Blood Culture - Final No growth after 5 days. 03/25/22 09:37 Blood - Venous Blood Culture - Final No growth after 5 days. 03/25/22 09:37 Blood - Venous Blood Culture - Final No growth after 5 days. 03/23/22 14:30 Cerebrospinal Fluid Gram Stain - Final 03/23/22 14:30 Cerebrospinal Fluid CSF Examination - Final 03/23/22 14:30 Cerebrospinal Fluid Fluid Description - Final 03/23/22 14:30 Cerebrospinal Fluid CSF Culture - Final No growth after 3 days. 03/03/22 10:37 Blood - Venous Blood Culture - Final No growth after 5 days. 03/03/22 10:37 Blood - Venous Blood Culture - Final No growth after 5 days. 03/03/22 Unknown Urine Catheterized - Straight Catheter Urine Culture - Final Aerococcus viridans Assessment and Plan (1) GI bleed: Status: Resolved (2) Encephalopathy: Status: Deleted Plan 65 YM with history of hypertension, hyperlipidemia, cardiomyopathy, history of seizures, history of prior DVT on Lovenox,? history of alcohol abuse on naltrexone, and encephalopathy admitted 38 days ago for seizure with question of alcohol withdrawal, UTI with sepsis, and encephalopathy. Pt's hospital course has been complicated by a nonhealing left foot vascular ulcer with recent above the knee amputation, acute kidney injury, now on TPN, being planned for PEG in DNR/DNI GI consulted due to an episode of bloody diarrhea earlier today followed by hematemesis. Pt was on Lovenox which was stopped (last dose given at 3 am today) UGI bleeding likely due to stress gastritis, erosive esophagitis or PUD. Labs showed a decrease in H & H from 9.2 & 29 this am to 8 & 24.8 RECOMMENDATIONS: 1. Transfuse 1 unit PRBC and monitor H & H post transfusion. 2. IV PPI infusion for suspected stress gastritis 3. Would recommend conservative management given multiple medical issues. Procedures Date of Service Date of Service: 04/10/22
--- NOTE | 2022-04-10 14:59 | PC.NURSE ---
12:30 pt has 2 episode of BM with dark liquid . MD notified. gave pantoprazole, NS bolus 500ml, albumin. first Vs HR130, BP 81/56, O2 99% 2L. after bolus, BP was 78/52 manually. pt has vomit at 13:00 with dark liquid color. MD notify. Tranfer to ICU
--- NOTE | 2022-04-10 15:08 | P.CONGS_ITS ---
History of Present Illness Consult details Consult date: 04/10/22 Narrative: 65-year-old male with multiple medical problems including alcohol abuse with dementia, seizure disorder and history of DVT, referred to me for PEG tube placement. He has been here in the hospital since 03/03/2022 after being found on the sidewalk after an apparent seizure. He was diagnosed to have encephalopathy related to his alcohol and seizure. He had been treated for sepsis as well likely secondary to a pneumonia from aspiration. Also had acute kidney injury. He has been bed-bound and has had no meaningful verbal output. He has had poor oral intake and has deemed to be an aspiration risk. I have therefore been past to place a PEG tube He had a left foot ulcer with gangrene and he underwent above knee amputation last April 06, 2022. He had previously been on Eliquis but this had been discontinued because of his seizure. Of note is that he had passed dark blood per rectum this morning and developed hypotension. He was transferred to the ICU just this afternoon. Review of Systems Review of Systems: Please note the patient is not communicative; most of the review of systems based on his records in the hospital Constitutional: Constitutional: Denies chills and Denies fever(s) Cardiovascular: Cardiovascular: Reports dyspnea Respiratory: Respiratory: Reports dyspnea Gastrointestinal: Gastrointestinal: Reports melena Genitourinary: Comments: Has condom catheter Neurologic: Comments: Has seizure disorder [facility] Past Medical History Medical History (Updated 04/10/22 @ 16:38 by Sean Montgomery MD) Alcohol abuse Blood per rectum Cardiomyopathy Cellulitis Dementia DVT (deep venous thrombosis) DVT of deep femoral vein GERD (gastroesophageal reflux disease) Hepatitis C antibody positive in blood Hypertension Seizure Functional capacity: bed bound Family History Family History Father No problems noted. Mother No problems noted. Brother Cancer Sister No problems noted. Family history: reviewed and not pertinent Surgical History Surgical History No pertinent past surgical history Social History Social History Household Members: Unknown / Unable to assess Housing: Unknown / Unable to assess Unable to assess alcohol history related to: Unable to respond Alcohol intake: current Alcohol intake frequency: a few times a week Alcohol type: beer Patient Tobacco Use Status: Tobacco use Unknown Cigarettes Per Day: 7 Use of substances other than those prescribed or required for medical reasons: Unknown Substance Use Type: Unknown Currently Displaying Signs/Symptoms of Drug Intoxication Withdrawal: No Advance Directives: Yes Advance Directives on File: Yes Advance Directives Date on File: 10/11/20 Recently lost weight without trying: Unsure How much weight loss: Unsure service: No Current occupational status: unemployed and disabled Meds Allergies Allergy/AdvReac Type Severity Reaction Status Date / Time No Known Allergies Allergy Verified 04/07/22 13:53 [No Known Allergies*] Active Medications: Current Medications Acetaminophen (Acetaminophen Supp 650 Mg Supp.Rect) 650 mg [place] Q6H PRN PRN Reason: fever Last Admin: 03/29/22 05:54 Dose: 650 mg Albuterol Sulfate (Albuterol Sulfate (0.083%) 2.5 Mg/3 Ml Vial.Neb) 2.5 mg INHALE ONCE PRN PRN Reason: Wheezing Chlorhexidine Gluconate (Chlorhexidine Gluc Oral Rinse 15 Ml Mouthwash) 15 ml BUCCAL DAILY [facility] Heparin Sodium (Porcine) 50 (units/ Sodium Chloride 5 ml) [facility] Last Admin: 04/10/22 07:54 Dose: 50 unit Docusate Sodium (Docusate Sodium 100 Mg Capsule) 100 mg PO DAILY PRN PRN Reason: Constipation Levetiracetam (Keppra) 500 mg in 100 mls @ 400 mls/hr IV BID [facility] Last Infusion: 03/31/22 11:09 Dose: Infused Magnesium Sulfate 10 meq/Potassium Phosphate 40 mmol/Calcium Gluconate 9.3 meq/Sodium Acetate 80 meq/Potassium Acetate 70 meq/Multivitamins 10 ml/ Trace Metals 1 ml/ Amino Acids/Dextrose 2,000 mls @ 83.333 mls/hr IV DAILY@1800 [facility] Stop: 04/10/22 17:59 Last Admin: 04/09/22 18:28 Dose: 83.33 mls/hr Sodium Chloride 40 meq/Magnesium Sulfate 10 meq/Potassium Phosphate 40 mmol/Calcium Gluconate 9.3 meq/Sodium Acetate 80 meq/Potassium Acetate 70 meq/Multivitamins 10 ml/ Trace Metals 1 ml/ Amino Acids/Dextrose 2,000 mls @ 83.333 mls/hr IV DAILY@1800 [facility] Stop: 04/11/22 17:59 Fat Emulsion Intravenous (Intralipid) 138 mls @ 23 mls/hr IV DAILY@0000,1800 [facility] Stop: 04/11/22 05:59 Albumin Human (Kedbumin 25 %) 100 mls @ 100 mls/hr IV Q1H [facility] Stop: 04/10/22 15:14 Last Admin: 04/10/22 14:15 Dose: 100 mls/hr Pantoprazole Sodium 80 mg/ (Sodium Chloride) 100 mls @ 10 mls/hr IV .Q10H [facility] Olanzapine (Olanzapine 10 Mg Tablet) 10 mg PO BEDTIME [facility] Last Admin: 03/30/22 19:46 Dose: Not Given Olanzapine (Olanzapine 5 Mg Tablet) 5 mg PO BID PRN PRN Reason: agitation Last Admin: 03/20/22 09:43 Dose: 5 mg Omeprazole (Omeprazole 40 Mg Capsule.Dr) 40 mg PO DAILY@0630 [facility] Last Admin: 04/10/22 03:51 Dose: Not Given Pharmacy Consult (Consult Rx Perform Med Rec) 1 each MISCELLANE ONCE PRN PRN Reason: Consult order Pharmacy Consult (Consult Rx Etoh Phenob Im/Po) 1 each MISCELLANE ONCE PRN; Protocol PRN Reason: Consult order Sodium Chloride (0.9 % Sodium Chloride Flush 3 Ml Syringe) 3 ml IVFLUSH QSHIFT [facility] Last Admin: 04/10/22 07:55 Dose: 3 ml Tamsulosin HCl (Tamsulosin Hcl 0.4 Mg Capsule) 0.4 mg PO DAILY [facility] Last Admin: 04/10/22 07:56 Dose: Not Given Thiamine HCl (Thiamine Hcl 100 Mg Tablet) 100 mg PO DAILY [facility] Last Admin: 04/10/22 07:56 Dose: Not Given Tiotropium [place] (Tiotropium [place] 18 Mcg Cap.W.Dev) 1 puff INHALE RDAILY [facility] Last Admin: 03/14/22 08:16 Dose: Not Given Home Medications Medication Instructions Recorded Confirmed Last Taken Type atorvastatin 40 mg tablet 40 mg PO BEDTIME 04/01/20 03/03/22 Unknown History cholecalciferol (vitamin D3) 50 50 mcg PO DAILY 04/01/20 03/03/22 Unknown History mcg (2,000 unit) capsule gabapentin 600 mg tablet 600 mg PO BID 04/01/20 03/03/22 Unknown History metoprolol succinate 25 mg 25 mg PO DAILY 04/01/20 03/03/22 Unknown History tablet,extended release 24 hr phenytoin 50 mg chewable tablet 50 mg PO BID 04/01/20 03/03/22 Unknown History tamsulosin 0.4 mg capsule 0.4 mg PO DAILY 04/01/20 03/03/22 Unknown History umeclidinium 62.5 mcg/actuation 1 puff inhalation DAILY 09/26/20 03/03/22 Un known History blister powder for inhalation (Incruse Ellipta) sertraline 25 mg tablet 1 tab PO DAILY 06/23/21 03/03/22 Unknown History olanzapine 20 mg tablet 1 tab PO BEDTIME 09/02/21 03/03/22 Unknown History apixaban 5 mg tablet (Eliquis) 5 mg PO BID 11/04/21 03/03/22 Unknown History cyanocobalamin (vitamin B-12) 1,000 mcg PO QAM 11/04/21 03/03/22 Unknown History 1,000 mcg tablet lisinopril 5 mg tablet 5 mg PO DAILY 11/04/21 03/03/22 Unknown History Physical Exam Vital Signs: Vital Signs: Last Vital Signs Temp 98.3 F 04/10/22 14:00 Pulse 121 H 04/10/22 14:00 Resp 20 04/10/22 14:00 BP 78/52 L 04/10/22 14:06 Pulse Ox 96 04/10/22 14:00 O2 Del Method 04/10/22 14:00 O2 Flow Rate 2 04/10/22 14:00 FiO2 94 03/14/22 20:00 Oxygen Flow Rate 2 04/10/22 14:00 BMI result Body Mass Index 25.7 Const: Other: Not communicative at all, eyes closed Resp: Effort & Inspection: normal respiratory effort Cardio: Rate: tachycardic GI: Palpation (GI): Soft to palpation, not firm and no guarding Results Labs Result diagrams: 04/14/22 07:23 04/14/22 07:23 Labs: Abnormal lab results 04/10/22 04/10/22 04/10/22 Range/Units 06:50 06:50 13:07 WBC 17.2 H (4.8-10.8) X10*3/uL RBC 3.21 L (4.60-5.80) X10*6/uL Hgb 9.2 L 8.0 L (14.0-18.0) g/dl Hct 29.0 L 24.8 L (42.0-52.0) % MPV 9.2 L (9.4-12.4) fL PT (10.0-13.1) SEC INR (0.9-1.1) Sodium 132 L (135-145) mmol/L Anion Gap 10 L (12-20) Random Glucose 154 H (60-115) mg/dL Calcium 7.8 L (8.4-10.2) mg/dL Albumin 1.8 L (3.5-5.0) g/dL Crossmatch 04/10/22 04/10/22 Range/Units 13:07 14:22 WBC (4.8-10.8) X10*3/uL RBC (4.60-5.80) X10*6/uL Hgb (14.0-18.0) g/dl Hct (42.0-52.0) % MPV (9.4-12.4) fL PT 18.6 H (10.0-13.1) SEC INR 1.6 H (0.9-1.1) Sodium (135-145) mmol/L Anion Gap (12-20) Random Glucose (60-115) mg/dL Calcium (8.4-10.2) mg/dL Albumin (3.5-5.0) g/dL Crossmatch See Detail Short CBC 04/10/22 04/10/22 Range/Units 06:50 13:07 WBC 17.2 H (4.8-10.8) X10*3/uL Hgb 9.2 L 8.0 L (14.0-18.0) g/dl Hct 29.0 L 24.8 L (42.0-52.0) % Plt Count 319 (160-400) X10*3/uL BMP 04/10/22 06:50 Sodium 132 L Potassium 4.7 Chloride 100 Carbon Dioxide 27 BUN 13 Creatinine 0.52 Calcium 7.8 L Liver Function 04/10/22 Range/Units 06:50 Albumin 1.8 L (3.5-5.0) g/dL Urine 03/03/22 03/26/22 Range/Units 10:41 14:34 Urine Color Dark Yellow Dark Yellow Urine Appearance Turbid Turbid Urine pH 7.0 7.5 (5.0-9.0) Ur Specific [place] 1.025 1.020 (1.005-1.025) Urine Protein 30 (1+) H 100 (2+) H (Neg-Trace) mg/dL Urine Glucose (UA) Negative Negative (Negative) mg/dL All other labs normal. Assessment and Plan (1) Dementia: Status: Acute He is deemed to be a high aspiration risk because of his dementia and likely dysphagia. He was referred to me for PEG tube placement. I explained to his healthcare proxy Ashwin at [phone] if the technique of this procedure. I reviewed the risks including but not limited to bleeding, infections, bowel injury, tube dislodgement, loss of airway, tube leak, as well as the benefits and alternatives. He says that he agrees with this procedure once patient is medically stable. We can therefore plan on doing the PEG tube next week. Currently, he has a new issue of having passed per rectum with anemia. He needs to be worked up for a source of his bleeding. (2) Blood per rectum: Status: Acute He apparently had a large bowel movement with blood this morning. He had a drop in his hemoglobin from 9.2-8.0 and had become hypotensive. He is being transferred to the ICU because of this. He would be transfused accordingly. He should be worked up with endoscopy for the source of his bleeding. He may also need localization of source of bleeding with angiography. His INR is mildly elevated 1.6 and with a background of ETOH abuse, he may be nefit from vitamin K as well. Procedures Date of Service Date of Service: 04/10/22
[2022-04-10] MEDS: Pantoprazole Sodium 80 MG in 0.9 % Sodium Chloride 80 ML 10 MG IV (15:51)
--- NOTE | 2022-04-10 16:00 | PM.CCPN ---
Subjective Subjective Date of Service: 04/10/22 Interval History: 66-year-old gentleman with underlying history of alcohol abuse, cardiomyopathy, dementia, DVT, hep C, alcohol withdrawal seizures, dysphagia, aspirations with prolonged hospitalization at [facility] for encephalopathy, nonhealing left foot vascular ulcer with recent above the knee amputation, acute kidney injury, now on TPN, being planned for PEG in DNR/DNI code status (HCP - friend Ashwin Aburto) today with development of hypotension with acute blood loss anemia secondary to acute upper GI bleed. Evaluated by Gastroenterology with no plans for intervention. Started on colloidal, blood product, and IV fluid support, PPI drip, and transferred to intensive care unit for close monitoring. Critical Care Time (minutes): 60 Physical Exam Vital Signs: Vital Signs: Last Vital Signs Temp 98.3 F 04/10/22 14:00 Pulse 121 H 04/10/22 14:00 Resp 20 04/10/22 14:00 BP 78/52 L 04/10/22 14:06 Pulse Ox 96 04/10/22 14:00 O2 Del Method 04/10/22 14:00 O2 Flow Rate 2 04/10/22 14:00 FiO2 94 03/14/22 20:00 Oxygen Flow Rate 2 04/10/22 14:00 BMI result Body Mass Index 25.7 Const: General: no acute distress and awake (Non communicative, resting comfortably) Eyes: Sclerae: sclerae normal EOM: EOMs intact bilaterally Neck: Neck: Yes no lymphadenopathy, Yes trachea midline and Yes supple Resp: Effort & Inspection: normal respiratory effort and no respiratory distress Auscultation: clear to auscultation bilaterally Cardio: Rate: tachycardic Rhythm: regular rhythm Heart sounds: no gallops, no murmurs and no rubs GI: Palpation (GI): Soft to palpation and Other GI palpation findings present ( Nontender) Auscultation: normal bowel sounds Extrem: General: No clubbing, No cyanosis and Yes other (Left AKA) Objective Data Labs CBC & Chem 7: 04/10/22 13:07 04/10/22 06:50 Labs: Laboratory Results - last 24 hr 04/10/22 04/10/22 04/10/22 06:50 06:50 13:07 WBC 17.2 H RBC 3.21 L Hgb 9.2 L 8.0 L Hct 29.0 L 24.8 L MCV 90.3 MCH 28.7 MCHC 31.7 RDW 14.7 Plt Count 319 MPV 9.2 L Absolute Nucleated RBC 0.000 Nucleated RBC % (auto) 0.0 PT INR Sodium 132 L Potassium 4.7 Chloride 100 Carbon Dioxide 27 Anion Gap 10 L BUN 13 Creatinine 0.52 Estim Creat Clear Calc 137.8 Estimated GFR > 60 Random Glucose 154 H Calcium 7.8 L Phosphorus 3.1 Magnesium 1.6 Albumin 1.8 L Triglycerides 49 Blood Type Antibody Screen Crossmatch 04/10/22 04/10/22 13:07 14:22 WBC RBC Hgb Hct MCV MCH MCHC RDW Plt Count MPV Absolute Nucleated RBC Nucleated RBC % (auto) PT 18.6 H INR 1.6 H Sodium Potassium Chloride Carbon Dioxide Anion Gap BUN Creatinine Estim Creat Clear Calc Estimated GFR Random Glucose Calcium Phosphorus Magnesium Albumin Triglycerides Blood Type B Positive Antibody Screen NEGATIVE Crossmatch See Detail Microbiology Microbiology Results: Microbiology 03/29/22 06:33 Blood - Venous Blood Culture - Final No growth after 5 days. 03/29/22 06:33 Blood - Venous Blood Culture - Final No growth after 5 days. 03/26/22 14:34 Urine Catheterized - Straight Catheter Urine Culture - Final Proteus vulgaris Enterococcus faecalis 03/26/22 03:03 Blood - Venous Blood Culture - Final No growth after 5 days. 03/26/22 03:03 Blood - Venous Blood Culture - Final No growth after 5 days. 03/25/22 09:37 Blood - Venous Blood Culture - Final No growth after 5 days. 03/25/22 09:37 Blood - Venous Blood Culture - Final No growth after 5 days. 03/23/22 14:30 Cerebrospinal Fluid Gram Stain - Final 03/23/22 14:30 Cerebrospinal Fluid CSF Examination - Final 03/23/22 14:30 Cerebrospinal Fluid Fluid Description - Final 03/23/22 14:30 Cerebrospinal Fluid CSF Culture - Final No growth after 3 days. 03/03/22 10:37 Blood - Venous Blood Culture - Final No growth after 5 days. 03/03/22 10:37 Blood - Venous Blood Culture - Final No growth after 5 days. 03/03/22 Unknown Urine Catheterized - Straight Catheter Urine Culture - Final Aerococcus viridans Progress Note: A&P Assessment and plan (1) GI bleed: Status: Acute (2) Acute blood loss anemia: Status: Acute (3) Hemorrhagic shock: Status: Acute (4) Above knee amputation of left lower extremity: Status: Acute (5) Dementia: Status: Acute (6) PAD (peripheral artery disease): Status: Acute (7) Hepatitis C antibody positive in blood: Status: Acute (8) Dysphagia: Status: Acute (9) Hypoalbuminemia due to protein-calorie malnutrition: Status: Acute Plan Assessment: 66-year-old gentleman with multiple medical issues and prolonged hospital stay now with hemorrhagic shock and acute blood loss anemia secondary to GI bleed Plan: Neuro: Underlying profound dementia with dysphagia, being planned for PEG tube. History of alcohol withdrawal seizures, now on Keppra. Cardiac: Hemorrhagic shock improved with colloidal support, blood product, and IV fluids. Underlying diastolic dysfunction. Underlying peripheral arterial disease status post left AKA. Vascular surgery service care appreciated. Pulmonary: No acute issues. Renal: No acute issues. Endo: No acute issues. GI: Acute GI bleed, likely up or. Evaluated by Gastroenterology. No plan for intervention at this time. Continue on PPI drip. Planned for PEG with General surgery when more stable. ID: No acute issues. Underlying history of recurrent UTIs. Heme/Onc: Acute blood loss anemia secondary to GI bleed. Being transfused 1 unit of packed red blood cells. Continue to monitor hemoglobin level. Psych: No acute issues. Miscellaneous: No acute issues. Prophylaxis: Intermittent pneumatic compression Diet: TPN Critical care time spent: 60 minutes Quality Stroke Does the patient have a stroke diagnosis?: No VTE Prior VTE?: No VTE Risk Level:: Medical - moderate - high VTE Device Contraindication: Treatment Not Indicated VTE Drug Contraindication: N/A - Med Ordered
[2022-04-10] MEDS: Phytonadione (Vit K1) 10 MG in 0.9 % Sodium Chloride 50 ML 51 MG IV (17:01)
[2022-04-10] MEDS: Fat Emulsions 20% 500 ML 23 ML IV (17:51)
[2022-04-10 17:56] LABS: Glucose, Whole Blood 139 mg/dL (60-115)
[2022-04-10 18:36] LABS: CDiff Gene PCR NEGATIVE (Negative)
[2022-04-10 21:09] LABS: Basophils Percent Auto 0.3 % (0-2); Imm Gran Abs Auto 0.17 X10*3/uL (0.00-0.03); Imm Gran Pct Auto 1.2 % (0.0-0.4); MANUAL DIFF FLAG NO; Mean Corpuscular Hemoglobin 30.2 pg (27.0-33.0); Platelet Count 224 X10*3/uL (160-400); Red Blood Count 2.05 X10*6/uL (4.60-5.80)
[2022-04-10 21:14] LABS: Basophils Absolute Auto 0.1 X10*3/uL (0.0-0.2); Eosinophils Absolute Auto 0.1 X10*3/uL (0.0-0.4); Eosinophils Percent Auto 0.5 % (0-4); Lymphocytes Absolute Auto 3.5 X10*3/uL (1.2-4.9); Lymphocytes Percent Auto 24.3 % (20-40); Mean Corpuscular HGB Conc 33.3 g/dl (31.0-36.0); Mean Corpuscular Volume 90.7 fL (80.0-98.0); Mean Platelet Volume 8.9 fL (9.4-12.4); Monocytes Absolute Auto 1.3 X10*3/uL (0.1-1.2); Monocytes Percent Auto 8.6 % (2-11); Neutrophils Absolute Auto 9.5 x10*3/uL (2.0-8.3); Neutrophils Percent Auto 65.1 % (45-73); Red Cell Distribution Width 14.7 % (11.0-16.0); White Blood Count 14.6 X10*3/uL (4.8-10.8)
[2022-04-10 21:20] LABS: Hemoglobin 6.2 g/dl (14.0-18.0)
[2022-04-10 21:21] LABS: Hematocrit 18.6 % (42.0-52.0)
[2022-04-11] VITALS (23 sets, daily range): BP systolic 128–174; BP diastolic 35–77; PULSE 72–102; RESP 15–25; TEMP 36.1–37.6; O2SAT 92–97; BMI 26.3
[2022-04-11] MEDS: Fat Emulsions 20% 500 ML 23 ML IV (00:09)
[2022-04-11] MEDS: Pantoprazole Sodium 80 MG in 0.9 % Sodium Chloride 80 ML 10 MG IV ×3 (00:21→23:13)
[2022-04-11] MEDS: Albumin Human 25 % 100 ML IV ×3 (02:09→12:00)
[2022-04-11 05:28] LABS: VBG Base Excess 2.5 mmol/L; VBG HCO3 25 mmol/L (22-26); VBG pCO2 34 mmHg; VBG pH 7.47 (7.32-7.43); VBG pO2 50 mmHg
[2022-04-11 06:00] LABS: MANUAL DIFF FLAG NO
[2022-04-11 06:02] LABS: Basophils Percent Auto 0.2 % (0-2); Eosinophils Absolute Auto 0.2 X10*3/uL (0.0-0.4); Eosinophils Percent Auto 1.5 % (0-4); Hematocrit 25.6 % (42.0-52.0); Hemoglobin 8.7 g/dl (14.0-18.0); Imm Gran Abs Auto 0.17 X10*3/uL (0.00-0.03); Imm Gran Pct Auto 1.3 % (0.0-0.4); Lymphocytes Absolute Auto 2.3 X10*3/uL (1.2-4.9); Lymphocytes Percent Auto 17.3 % (20-40); Mean Corpuscular Hemoglobin 30.9 pg (27.0-33.0); Mean Corpuscular Volume 90.8 fL (80.0-98.0); Monocytes Absolute Auto 1.1 X10*3/uL (0.1-1.2); Monocytes Percent Auto 8.4 % (2-11); Neutrophils Absolute Auto 9.4 x10*3/uL (2.0-8.3); Neutrophils Percent Auto 71.3 % (45-73); Platelet Count 219 X10*3/uL (160-400); Red Blood Count 2.82 X10*6/uL (4.60-5.80); Red Cell Distribution Width 14.6 % (11.0-16.0); White Blood Count 13.2 X10*3/uL (4.8-10.8)
[2022-04-11 06:23] LABS: Triglycerides 129 mg/dL
[2022-04-11 06:28] LABS: Alanine Aminotransferase 8 U/L (0-40); Albumin Level 2.8 g/dL (3.5-5.0); Alkaline Phosphatase 35 U/L (39-117); Anion Gap 7 (12-20); Aspartate Amino Transferase 16 U/L (5-37); Bilirubin Total 0.7 mg/dL (0.0-1.0); Blood Urea Nitrogen 16 mg/dL (9-16); Calcium 8.1 mg/dL (8.4-10.2); Carbon Dioxide 27 mmol/L (22-29); Chloride 105 mmol/L (96-108); Estimated Glomerular Filt Rate > 60; Glucose Random 161 mg/dL (60-115); Magnesium 1.7 mg/dL (1.6-2.6); Phosphorus 2.9 mg/dL (2.7-4.5); Potassium 4.3 mmol/L (3.3-5.1); Sodium 135 mmol/L (135-145)
[2022-04-11 08:52] LABS: Venous Blood Gas Refer to POC result
[2022-04-11] MEDS: 0.9 % Sodium Chloride Flush 3 ML SYRINGE IVFLUSH ×3 (08:58→23:14)
[2022-04-11] MEDS: Heparin Sodium,Porcine Flush 50 UNITS, 0.9 % Sodium Chloride Flush 5 ML IVFLUSH ×2 (08:58→17:00)
[2022-04-11] MEDS: Chlorhexidine Gluc Oral Rinse 15 ML MOUTHWASH BUCCAL (08:59)
--- NOTE | 2022-04-11 10:47 | PM.CCPN ---
Subjective Subjective Date of Service: 04/11/22 Interval History: 66-year-old gentleman with underlying history of alcohol abuse, cardiomyopathy, dementia, DVT, hep C, alcohol withdrawal seizures, dysphagia, aspirations with prolonged hospitalization at [facility] for encephalopathy, nonhealing left foot vascular ulcer with recent above the knee amputation, acute kidney injury, now on TPN, being planned for PEG in DNR/DNI code status (HCP - friend Ashwin Aburto) today with development of hypotension with acute blood loss anemia secondary to acute upper GI bleed. Evaluated by Gastroenterology with no plans for intervention. Started on colloidal, blood product, and IV fluid support, PPI drip, and transferred to intensive care unit for close monitoring. No events overnight. No recurrence of bleeding. Hemoglobin level stabilized, hypotension and tachycardia resolved. Critical Care Time (minutes): 0 Physical Exam Vital Signs: Vital Signs: Last Vital Signs Temp 99.1 F 04/11/22 08:00 Pulse 72 04/11/22 10:00 Resp 20 04/11/22 10:00 BP 146/62 H 04/11/22 10:00 Pulse Ox 94 04/11/22 10:00 O2 Del Method 04/11/22 10:00 O2 Flow Rate 2 04/10/22 14:00 FiO2 94 03/14/22 20:00 Oxygen Flow Rate 2 04/10/22 14:00 BMI result Body Mass Index 26.3 Const: General: no acute distress and lethargic ( Arousable, noncommunicative) Orientation/consciousness: lethargic ( Arousable, noncommunicative) Eyes: Sclerae: sclerae normal Neck: Neck: Yes no lymphadenopathy, Yes trachea midline and Yes supple Resp: Effort & Inspection: normal respiratory effort and no respiratory distress Auscultation: clear to auscultation bilaterally Cardio: Rate: regular rate Rhythm: regular rhythm Heart sounds: no gallops, no murmurs and no rubs GI: Palpation (GI): Soft to palpation and Other GI palpation findings present ( Nontender) Auscultation: normal bowel sounds Extrem: General: No clubbing, No cyanosis and Yes other ( left AKA) Objective Data Labs CBC & Chem 7: 04/11/22 05:18 04/11/22 05:18 Labs: Laboratory Results - last 24 hr 04/10/22 04/10/22 04/10/22 13:07 13:07 14:22 WBC RBC Hgb 8.0 L Hct 24.8 L MCV MCH MCHC RDW Plt Count MPV Immature Gran % (Auto) Neut % (Auto) Lymph % (Auto) [place] % (Auto) Eos % (Auto) Baso % (Auto) Lymph # (Auto) [place] # (Auto) Eos # (Auto) Baso # (Auto) Abs Immat Gran (auto) Absolute Neuts (auto) Absolute Nucleated RBC Nucleated RBC % (auto) PT 18.6 H INR 1.6 H VBG pH VBG pCO2 VBG pO2 VBG HCO3 VBG O2 Saturation VBG Base Excess Sodium Potassium Chloride Carbon Dioxide Anion Gap BUN Creatinine Estim Creat Clear Calc Estimated GFR POC Glucose Random Glucose Calcium Phosphorus Magnesium Total Bilirubin AST ALT Alkaline Phosphatase Total Protein Albumin Triglycerides C. difficile Tox B Gene Blood Type B Positive Antibody Screen NEGATIVE Crossmatch See Detail 04/10/22 04/10/22 04/10/22 16:03 17:52 20:57 WBC 14.6 H RBC 2.05 L D Hgb 6.2 L* D Hct 18.6 L* D MCV 90.7 MCH 30.2 MCHC 33.3 RDW 14.7 Plt Count 224 D MPV 8.9 L Immature Gran % (Auto) 1.2 H Neut % (Auto) 65.1 Lymph % (Auto) 24.3 [place] % (Auto) 8.6 Eos % (Auto) 0.5 Baso % (Auto) 0.3 Lymph # (Auto) 3.5 [place] # (Auto) 1.3 H Eos # (Auto) 0.1 Baso # (Auto) 0.1 Abs Immat Gran (auto) 0.17 H Absolute Neuts (auto) 9.5 H Absolute Nucleated RBC 0.000 Nucleated RBC % (auto) 0.0 PT INR VBG pH VBG pCO2 VBG pO2 VBG HCO3 VBG O2 Saturation VBG Base Excess Sodium Potassium Chloride Carbon Dioxide Anion Gap BUN Creatinine Estim Creat Clear Calc Estimated GFR POC Glucose 139 H Random Glucose Calcium Phosphorus Magnesium Total Bilirubin AST ALT Alkaline Phosphatase Total Protein Albumin Triglycerides C. difficile Tox B Gene NEGATIVE Blood Type Antibody Screen Crossmatch 04/11/22 04/11/22 04/11/22 05:18 05:18 05:18 WBC 13.2 H RBC 2.82 L D Hgb 8.7 L D Hct 25.6 L D MCV 90.8 MCH 30.9 MCHC 34.0 RDW 14.6 Plt Count 219 MPV 9.0 L Immature Gran % (Auto) 1.3 H Neut % (Auto) 71.3 Lymph % (Auto) 17.3 L [place] % (Auto) 8.4 Eos % (Auto) 1.5 Baso % (Auto) 0.2 Lymph # (Auto) 2.3 [place] # (Auto) 1.1 Eos # (Auto) 0.2 Baso # (Auto) 0.0 Abs Immat Gran (auto) 0.17 H Absolute Neuts (auto) 9.4 H Absolute Nucleated RBC 0.000 Nucleated RBC % (auto) 0.0 PT INR VBG pH VBG pCO2 VBG pO2 VBG HCO3 VBG O2 Saturation VBG Base Excess Sodium 135 Potassium 4.3 Chloride 105 Carbon Dioxide 27 Anion Gap 7 L BUN 16 Creatinine 0.56 Estim Creat Clear Calc 128.0 Estimated GFR > 60 POC Glucose Random Glucose 161 H Calcium 8.1 L Phosphorus 2.9 Magnesium 1.7 Total Bilirubin 0.7 AST 16 ALT 8 Alkaline Phosphatase 35 L Total Protein 5.0 L Albumin 2.8 L Triglycerides 129 C. difficile Tox B Gene Blood Type Antibody Screen Crossmatch 04/11/22 05:22 WBC RBC Hgb Hct MCV MCH MCHC RDW Plt Count MPV Immature Gran % (Auto) Neut % (Auto) Lymph % (Auto) [place] % (Auto) Eos % (Auto) Baso % (Auto) Lymph # (Auto) [place] # (Auto) Eos # (Auto) Baso # (Auto) Abs Immat Gran (auto) Absolute Neuts (auto) Absolute Nucleated RBC Nucleated RBC % (auto) PT INR VBG pH 7.47 H VBG pCO2 34 VBG pO2 50 VBG HCO3 25 VBG O2 Saturation 81.0 VBG Base Excess 2.5 Sodium Potassium Chloride Carbon Dioxide Anion Gap BUN Creatinine Estim Creat Clear Calc Estimated GFR POC Glucose Random Glucose Calcium Phosphorus Magnesium Total Bilirubin AST ALT Alkaline Phosphatase Total Protein Albumin Triglycerides C. difficile Tox B Gene Blood Type Antibody Screen Crossmatch Microbiology Microbiology Results: Microbiology 03/29/22 06:33 Blood - Venous Blood Culture - Final No growth after 5 days. 03/29/22 06:33 Blood - Venous Blood Culture - Final No growth after 5 days. 03/26/22 14:34 Urine Catheterized - Straight Catheter Urine Culture - Final Proteus vulgaris Enterococcus faecalis 03/26/22 03:03 Blood - Venous Blood Culture - Final No growth after 5 days. 03/26/22 03:03 Blood - Venous Blood Culture - Final No growth after 5 days. 03/25/22 09:37 Blood - Venous Blood Culture - Final No growth after 5 days. 03/25/22 09:37 Blood - Venous Blood Culture - Final No growth after 5 days. 03/23/22 14:30 Cerebrospinal Fluid Gram Stain - Final 03/23/22 14:30 Cerebrospinal Fluid CSF Examination - Final 03/23/22 14:30 Cerebrospinal Fluid Fluid Description - Final 03/23/22 14:30 Cerebrospinal Fluid CSF Culture - Final No growth after 3 days. 03/03/22 10:37 Blood - Venous Blood Culture - Final No growth after 5 days. 03/03/22 10:37 Blood - Venous Blood Culture - Final No growth after 5 days. 03/03/22 Unknown Urine Catheterized - Straight Catheter Urine Culture - Final Aerococcus viridans Progress Note: A&P Assessment and plan (1) Hypoalbuminemia due to protein-calorie malnutrition: Status: Acute (2) Dysphagia: Status: Acute (3) Above knee amputation of left lower extremity: Status: Acute (4) Dementia: Status: Acute (5) PAD (peripheral artery disease): Status: Acute Plan Assessment: 66-year-old gentleman with multiple medical issues and prolonged hospital stay now with hemorrhagic shock and acute blood loss anemia secondary to GI bleed Plan: Neuro: Underlying profound dementia with dysphagia, being planned for PEG tube. History of alcohol withdrawal seizures, now on Keppra. Cardiac: Hemorrhagic shock resolved. Underlying diastolic dysfunction. Underlying peripheral arterial disease status post left AKA. Vascular surgery service care appreciated. Pulmonary: No acute issues. Renal: No acute issues. Endo: No acute issues. GI: Acute GI bleed, likely upper, no rebleeding. Evaluated by Gastroenterology. No plan for intervention at this time. Continue on PPI drip. Planned for PEG with General surgery when more stable. ID: No acute issues. Underlying history of recurrent UTIs. Heme/Onc: Acute blood loss anemia secondary to GI bleed. Hemoglobin stabilized. Continue to monitor hemoglobin level. Psych: No acute issues. Miscellaneous: No acute issues. Prophylaxis: Intermittent pneumatic compression Diet: TPN Quality Stroke Does the patient have a stroke diagnosis?: No VTE Prior VTE?: No VTE Risk Level:: Medical - moderate - high VTE Device Contraindication: Treatment Not Indicated VTE Drug Contraindication: N/A - Med Ordered
[2022-04-11 11:59] LABS: Hematocrit 25.9 % (42.0-52.0); Hemoglobin 8.7 g/dl (14.0-18.0)
--- NOTE | 2022-04-11 14:25 | PM.EVENT ---
Event Note Date of Service: 04/11/22 Event Note: 66 YM with history of hypertension, hyperlipidemia, cardiomyopathy, history of seizures, history of prior DVT on Lovenox,? history of alcohol abuse on naltrexone, and encephalopathy admitted 38 days ago for seizure with question of alcohol withdrawal, UTI with sepsis, encephalopathy and DNR/DNI code status (HCP - friend Ashwin Lamonte) Pt's hospital course has been complicated by a nonhealing left foot vascular ulcer with recent above the knee amputation, acute kidney injury, now on TPN, being planned for PEG in DNR/DNI Pt had an episode of bloody diarrhea yesterday followed by hematemesis. Pt was on Lovenox which was stopped (last dose given at 3 am on 04/10/22) Labs showed a decrease in H & H from 9.2 & 29 to 8 & 24.8 Pt was transferred to ICU for close monitoring and transfused 3 U PRBC overnight and given IV fluid support, PPI drip. H & H post transfusion improved to 8.7 & 25.6 (from 6.2 & 18 last night) RECOMMENDATIONS: 1. Continue IV PPI infusion x 48 hrs and then switch to IV BID.
--- NOTE | 2022-04-11 17:19 | PC.NURSE ---
Patient awake an alert to name on morning assessment. Morning assessment completed, see shift assessment. Routine oral care preformed, patient updated on medications, patient and primary contact updated on current health status as well as current room assignment.
[2022-04-11] MEDS: Fat Emulsions 20% 250 ML 23 ML IV (18:28)
[2022-04-12] VITALS (7 sets, daily range): BP systolic 125–177; BP diastolic 57–82; PULSE 85–100; RESP 18–20; TEMP 36.2–37.3; O2SAT 94–100; BMI 23.8
[2022-04-12] MEDS: Heparin Sodium,Porcine Flush 50 UNITS, 0.9 % Sodium Chloride Flush 5 ML IVFLUSH ×4 (00:39→23:09)
[2022-04-12] MEDS: Fat Emulsions 20% 250 ML 23 ML IV (00:41)
[2022-04-12 07:41] LABS: Hematocrit 28.1 % (42.0-52.0); Hemoglobin 9.3 g/dl (14.0-18.0); Mean Corpuscular HGB Conc 33.1 g/dl (31.0-36.0); Mean Corpuscular Hemoglobin 30.6 pg (27.0-33.0); Mean Corpuscular Volume 92.4 fL (80.0-98.0); Mean Platelet Volume 9.1 fL (9.4-12.4); NRBC Pct Auto 0.2 /100WBC (0.0-0.2); Platelet Count 246 X10*3/uL (160-400); Red Blood Count 3.04 X10*6/uL (4.60-5.80); Red Cell Distribution Width 14.6 % (11.0-16.0); White Blood Count 12.8 X10*3/uL (4.8-10.8)
[2022-04-12 08:02] LABS: Albumin Level 3.1 g/dL (3.5-5.0); Anion Gap 6 (12-20); Blood Urea Nitrogen 12 mg/dL (9-16); Calcium 8.4 mg/dL (8.4-10.2); Carbon Dioxide 24 mmol/L (22-29); Chloride 105 mmol/L (96-108); Creatinine Clr Calc Pharmacy 123.5; Estimated Glomerular Filt Rate > 60; Glucose Random 168 mg/dL (60-115); Magnesium 1.6 mg/dL (1.6-2.6); Phosphorus 3.7 mg/dL (2.7-4.5); Potassium 4.8 mmol/L (3.3-5.1); Sodium 130 mmol/L (135-145)
[2022-04-12 08:37] LABS: Triglycerides 143 mg/dL
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
[2022-04-12] MEDS: Pantoprazole Sodium 80 MG in 0.9 % Sodium Chloride 80 ML 10 MG IV ×2 (10:40→17:47)
[2022-04-12] MEDS: Chlorhexidine Gluc Oral Rinse 15 ML MOUTHWASH BUCCAL (10:41)
[2022-04-12] MEDS: levETIRAcetam in NaCl (iso-os) 500 MG/100 ML PIGGYBACK 400 MG IV ×2 (10:41→20:08)
[2022-04-12] MEDS: 0.9 % Sodium Chloride Flush 3 ML SYRINGE IVFLUSH ×2 (10:43→17:33)
[2022-04-12] MEDS: Fat Emulsions 20% 500 ML 23 ML IV (17:41)
[2022-04-12] MEDS: Fat Emulsions 20% 500 ML 21 ML IV (23:01)
[2022-04-12] MEDS: Magnesium Sulfate/H2O 2 GM/50 ML PIGGYBACK IV (23:23)
[2022-04-13] VITALS (7 sets, daily range): BP systolic 127–160; BP diastolic 66–79; PULSE 85–99; RESP 16–20; TEMP 36.1–37.1; O2SAT 92–98; BMI 26.9
--- NOTE | 2022-04-13 02:06 | MHC.PIE ---
p; 12 beats vtach noted at 04/12 2035 i; dr stone notified e; will cont to monitor
[2022-04-13] MEDS: Pantoprazole Sodium 80 MG in 0.9 % Sodium Chloride 80 ML 10 MG IV (03:03)
[2022-04-13 07:40] LABS: MANUAL DIFF FLAG NO
[2022-04-13 07:57] LABS: Basophils Percent Auto 0.2 % (0-2); Eosinophils Absolute Auto 0.2 X10*3/uL (0.0-0.4); Eosinophils Percent Auto 1.7 % (0-4); Hematocrit 31.4 % (42.0-52.0); Hemoglobin 10.1 g/dl (14.0-18.0); Imm Gran Abs Auto 0.15 X10*3/uL (0.00-0.03); Imm Gran Pct Auto 1.1 % (0.0-0.4); Lymphocytes Absolute Auto 2.3 X10*3/uL (1.2-4.9); Lymphocytes Percent Auto 17.1 % (20-40); Mean Corpuscular HGB Conc 32.2 g/dl (31.0-36.0); Mean Corpuscular Hemoglobin 29.9 pg (27.0-33.0); Mean Corpuscular Volume 92.9 fL (80.0-98.0); Mean Platelet Volume 9.1 fL (9.4-12.4); Monocytes Absolute Auto 1.1 X10*3/uL (0.1-1.2); Monocytes Percent Auto 8.4 % (2-11); Neutrophils Absolute Auto 9.6 x10*3/uL (2.0-8.3); Neutrophils Percent Auto 71.5 % (45-73); Platelet Count 258 X10*3/uL (160-400); Red Blood Count 3.38 X10*6/uL (4.60-5.80); Red Cell Distribution Width 15.6 % (11.0-16.0); White Blood Count 13.4 X10*3/uL (4.8-10.8)
[2022-04-13] MEDS: Heparin Sodium,Porcine Flush 50 UNITS, 0.9 % Sodium Chloride Flush 5 ML IVFLUSH ×2 (08:01→17:25)
[2022-04-13] MEDS: Chlorhexidine Gluc Oral Rinse 15 ML MOUTHWASH BUCCAL (08:01)
[2022-04-13] MEDS: 0.9 % Sodium Chloride Flush 3 ML SYRINGE IVFLUSH ×3 (08:01→20:30)
[2022-04-13] MEDS: levETIRAcetam in NaCl (iso-os) 500 MG/100 ML PIGGYBACK 400 MG IV ×2 (08:01→20:30)
[2022-04-13 08:04] LABS: Albumin Level 3.2 g/dL (3.5-5.0); Anion Gap 10 (12-20); Blood Urea Nitrogen 14 mg/dL (9-16); Calcium 8.4 mg/dL (8.4-10.2); Carbon Dioxide 24 mmol/L (22-29); Chloride 105 mmol/L (96-108); Creatinine Clr Calc Pharmacy 123.5; Estimated Glomerular Filt Rate > 60; Glucose Random 154 mg/dL (60-115); Magnesium 2.1 mg/dL (1.6-2.6); Phosphorus 4.1 mg/dL (2.7-4.5); Potassium 5.1 mmol/L (3.3-5.1); Sodium 134 mmol/L (135-145)
--- NOTE | 2022-04-13 09:03 | MHC.CM.PN ---
Male s/p [facility]TE[facility] is following. A clinical update has been sent to the facility. Patient will transport via BLS when medically cleared an a bed is available. CM will follow.
[2022-04-13 09:16] LABS: Triglycerides 70 mg/dL
--- NOTE | 2022-04-13 11:26 | MHC.CLN ---
F/U DISCUSSED WITH PHARMACY REVIEWED LABS PT TO CONTINUE RECEIVING TPN [id number] AT 83.33 ML PER HOUR WITH 23ML OF 20% LIPIDS PROVIDES 1972 KCALS (30KCALS/KG BASED ON ADJUSTED IBW), 100G PROTEIN (1.5G/KG BASED ON ADJUSTED IBW) REPLETE LYTES NEEDED NOTED DISCUSSION OF PEG TUBE WITH HCP
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
--- NOTE | 2022-04-13 13:35 | MHC.SLORD ---
Speech Language Pathology Order Status: [employer] attempted to see pt for bedside swallow evaluation. Pt was initially sleeping, awoke momentarily to sternal rub, and fell back asleep. Pt unable to remain awake for PO trials. Pt not appropriate for eval at this time, no trials given.
[2022-04-13] MEDS: Pantoprazole Sodium 40 MG/10 ML VIAL IVPUSH (17:12)
[2022-04-13] MEDS: Fat Emulsions 20% 500 ML 23 ML IV ×2 (17:17→23:51)
--- NOTE | 2022-04-13 17:52 | PC.NURSE ---
Suazo catheter removed at 1445. Patient tolerated well. External catheter in place, bladder scanned at 1750 for 156cc. No further intervention at this time.
[2022-04-14] VITALS (8 sets, daily range): BP systolic 125–175; BP diastolic 60–88; PULSE 95–104; RESP 14–20; TEMP 36.6–37.3; O2SAT 94–99
[2022-04-14] MEDS: Heparin Sodium,Porcine Flush 50 UNITS, 0.9 % Sodium Chloride Flush 5 ML IVFLUSH ×3 (00:02→15:21)
[2022-04-14] MEDS: Pantoprazole Sodium 40 MG/10 ML VIAL IVPUSH ×2 (05:55→15:21)
[2022-04-14] MEDS: levETIRAcetam in NaCl (iso-os) 500 MG/100 ML PIGGYBACK 400 MG IV ×2 (07:31→21:08)
[2022-04-14] MEDS: Chlorhexidine Gluc Oral Rinse 15 ML MOUTHWASH BUCCAL (07:32)
[2022-04-14] MEDS: 0.9 % Sodium Chloride Flush 3 ML SYRINGE IVFLUSH ×2 (07:32→15:21)
[2022-04-14 08:17] LABS: Hematocrit 30.5 % (42.0-52.0); Hemoglobin 9.9 g/dl (14.0-18.0); Mean Corpuscular HGB Conc 32.5 g/dl (31.0-36.0); Mean Corpuscular Hemoglobin 30.5 pg (27.0-33.0); Mean Corpuscular Volume 93.8 fL (80.0-98.0); Platelet Count 261 X10*3/uL (160-400); Red Blood Count 3.25 X10*6/uL (4.60-5.80); Red Cell Distribution Width 16.1 % (11.0-16.0); White Blood Count 15.2 X10*3/uL (4.8-10.8)
[2022-04-14 08:34] LABS: Anion Gap 11 (12-20); Blood Urea Nitrogen 15 mg/dL (9-16); Calcium 8.3 mg/dL (8.4-10.2); Carbon Dioxide 23 mmol/L (22-29); Chloride 105 mmol/L (96-108); Creatinine Clr Calc Pharmacy 119.4; Estimated Glomerular Filt Rate > 60; Glucose Random 140 mg/dL (60-115); Magnesium 1.8 mg/dL (1.6-2.6); Phosphorus 3.2 mg/dL (2.7-4.5); Potassium 4.9 mmol/L (3.3-5.1); Sodium 134 mmol/L (135-145)
[2022-04-14 08:35] LABS: Anion Gap 10 (12-20); Blood Urea Nitrogen 15 mg/dL (9-16); Calcium 8.3 mg/dL (8.4-10.2); Carbon Dioxide 24 mmol/L (22-29); Chloride 105 mmol/L (96-108); Creatinine Clr Calc Pharmacy 123.5; Estimated Glomerular Filt Rate > 60; Glucose Random 138 mg/dL (60-115); Potassium 4.8 mmol/L (3.3-5.1); Sodium 134 mmol/L (135-145)
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
--- NOTE | 2022-04-14 11:57 | MHC.CLN ---
F/U DISCUSSED WITH PHARMACY REVIEWED LABS PT TO CONTINUE RECEIVING TPN D15AA5 AT 83.33 ML PER HOUR WITH 23ML OF 20% LIPIDS PROVIDES 1972 KCALS (30KCALS/KG BASED ON ADJUSTED IBW), 100G PROTEIN (1.5G/KG BASED ON ADJUSTED IBW) REPLETE LYTES NEEDED AWAITING PEG TUBE PLACEMENT THIS WEEK
--- NOTE | 2022-04-14 15:05 | MHC.SLORD ---
Speech Language Pathology Order Status: Noted in chart patient pending PEG placement. Did not attempt to see today for PO trials.
--- NOTE | 2022-04-14 15:11 | P.PNGS_ITS ---
Subjective Subjective Date of Service: 04/14/22 Interval history: as per staff - has been stable no episodes of GI bleed mental status the same Physical Exam Vital Signs: Vital Signs: Last Vital Signs Temp 98.9 F 04/14/22 11:52 Pulse 97 04/14/22 11:52 Resp 14 04/14/22 11:52 BP 158/78 H 04/14/22 11:52 Pulse Ox 94 04/14/22 14:00 O2 Del Method 04/14/22 14:00 O2 Flow Rate 2 04/10/22 14:00 FiO2 94 03/14/22 20:00 Oxygen Flow Rate 0 04/13/22 14:00 BMI result Body Mass Index 26.9 Const: Other: not communicative esyes closed General: comfortable Resp: Effort & Inspection: normal respiratory effort Cardio: Rate: regular rate GI: Palpation (GI): Soft to palpation, not firm, nontender and no guarding Objective Data Active Medications Acetaminophen (Acetaminophen Supp 650 Mg Supp.Rect) 650 mg [place] Q6H PRN PRN Reason: fever Last Admin: 03/29/22 05:54 Dose: 650 mg Documented By: TARAN Albuterol Sulfate (Albuterol Sulfate (0.083%) 2.5 Mg/3 Ml Vial.Neb) 2.5 mg INHALE ONCE PRN PRN Reason: Wheezing Chlorhexidine Gluconate (Chlorhexidine Gluc Oral Rinse 15 Ml Mouthwash) 15 ml BUCCAL DAILY [facility] Last Admin: 04/14/22 07:32 Dose: 15 ml Documented By: LEANNA Heparin Sodium (Porcine) 50 (units/ Sodium Chloride 5 ml) 0 units IVFLUSH QSHIFT [facility] Last Admin: 04/14/22 07:31 Dose: 50 unit Documented By: LEANNA Levetiracetam (Keppra) 500 mg in 100 mls @ 400 mls/hr IV BID [facility] Last Infusion: 04/14/22 08:39 Dose: 0 mls/hr Documented By: LEANNA Sodium Chloride 80 meq/Magnesium Sulfate 10 meq/Potassium Phosphate 20 mmol/Calcium Gluconate 9.3 meq/Sodium Acetate 80 meq/Potassium Acetate 70 meq/Multivitamins 10 ml/ Trace Metals 1 ml/ Amino Acids/Dextrose 1,999.2 mls @ 83.3 mls/hr IV DAILY@1800 [facility] Stop: 04/14/22 17:59 Last Admin: 04/13/22 17:13 Dose: 83.3 mls/hr Documented By: GERALDINE Fat Emulsion Intravenous (Intralipid) 138 mls @ 23 mls/hr IV DAILY@0000,1800 [facility] Stop: 04/15/22 05:59 Sodium Chloride 100 meq/Magnesium Sulfate 10 meq/Potassium Phosphate 20 mmol/Calcium Gluconate 9.3 meq/Sodium Acetate 80 meq/Potassium Acetate 70 meq/Multivitamins 10 ml/ Trace Metals 1 ml/ Amino Acids/Dextrose 1,999.2 mls @ 83.3 mls/hr IV DAILY@1800 [facility] Stop: 04/15/22 17:59 Cefazolin Sodium/Dextrose (Ancef) 2 gm in 50 mls @ 100 mls/hr IV PREOP ONE Stop: 04/15/22 11:23 Pantoprazole Sodium (Pantoprazole Sodium 40 Mg/10 Ml Vial) 40 mg IVPUSH BID@0630,1630 [facility] Last Admin: 04/14/22 05:55 Dose: 40 mg Documented By: ANN MARIE Sodium Chloride (0.9 % Sodium Chloride Flush 3 Ml Syringe) 3 ml IVFLUSH QSHIFT [facility] Last Admin: 04/14/22 07:32 Dose: 3 ml Documented By: LEANNA Labs CBC & Chem 7: 04/14/22 07:23 04/14/22 07:23 Labs: Laboratory Results - last 24 hr 04/14/22 04/14/22 04/14/22 07:23 07:23 07:23 MCV 93.8 MCH 30.5 MCHC 32.5 RDW 16.1 H Plt Count 261 MPV 9.0 L Absolute Nucleated RBC 0.000 Nucleated RBC % (auto) 0.0 Anion Gap 11 L 10 L Estim Creat Clear Calc 119.4 123.5 Estimated GFR > 60 > 60 Random Glucose 140 H 138 H Calcium 8.3 L 8.3 L Phosphorus 3.2 Magnesium 1.8 Albumin 3.0 L Procedures Date of Service Date of Service: 04/14/22 Progress Note: A&P Assessment and plan (1) Dysphagia: Status: Acute Assessment and Plan: referred for PEG placement [facility] Ashwin [phone] - reviewed technique of procedure and indications, explained risks, benefits and alternatives extensively - he has given consent plan PEG tomorrow repeat INR Time Spent With Patient Time: Total time spent is greater than 50% in coordination of care (as documented) at patient's floor/unit and/or counseling patient: Quality Stroke Does the patient have a stroke diagnosis?: No VTE Prior VTE?: No VTE Risk Level:: Medical - moderate - high VTE Device Contraindication: Treatment Not Indicated VTE Drug Contraindication: N/A - Med Ordered
[2022-04-14] MEDS: Fat Emulsions 20% 500 ML 23 ML IV (18:05)
[2022-04-15] VITALS (15 sets, daily range): BP systolic 123–168; BP diastolic 61–78; PULSE 87–99; RESP 16–20; TEMP 36.2–38.1; O2SAT 95–100; BMI 26.4
--- NOTE | 2022-04-15 00:40 | MHC.PIE ---
P.6 beat vtach I.pt had 6 beat vtach,asymptomatic,comfortable.Reported to Dr Murillo,no new orders. E.Cont to monitor
[2022-04-15] MEDS: Fat Emulsions 20% 500 ML 23 ML IV (01:34)
[2022-04-15] MEDS: 0.9 % Sodium Chloride Flush 3 ML SYRINGE IVFLUSH ×4 (01:34→23:17)
[2022-04-15] MEDS: Heparin Sodium,Porcine Flush 50 UNITS, 0.9 % Sodium Chloride Flush 5 ML IVFLUSH ×4 (01:36→23:16)
[2022-04-15] MEDS: Pantoprazole Sodium 40 MG/10 ML VIAL IVPUSH ×2 (05:54→17:06)
[2022-04-15 07:22] LABS: INTERNATIONAL NORM RATIO 1.2 (0.9-1.1); Prothrombin Time 14.3 SEC (10.0-13.1)
[2022-04-15 07:36] LABS: Anion Gap 13 (12-20); Blood Urea Nitrogen 15 mg/dL (9-16); Calcium 8.4 mg/dL (8.4-10.2); Carbon Dioxide 22 mmol/L (22-29); Chloride 104 mmol/L (96-108); Estimated Glomerular Filt Rate > 60; Glucose Random 134 mg/dL (60-115); Magnesium 1.7 mg/dL (1.6-2.6); Phosphorus 3.5 mg/dL (2.7-4.5); Potassium 4.5 mmol/L (3.3-5.1); Sodium 134 mmol/L (135-145)
[2022-04-15] MEDS: levETIRAcetam in NaCl (iso-os) 500 MG/100 ML PIGGYBACK 400 MG IV ×2 (08:25→22:01)
[2022-04-15] MEDS: Chlorhexidine Gluc Oral Rinse 15 ML MOUTHWASH BUCCAL (08:25)
--- NOTE | 2022-04-15 10:17 | MHC.CLN ---
Addendum entered by Vida aC, MAYCO 04/15/22 14:18: RE: CONSULT FOR NEW PEG TUBE RECOMMEND JEVITY AT MAX GOAL RATE 70ML/HR WITH 30ML PROSOURCE Q DAY AND 120ML FREE WATER FLUSHES Q 6 HRS TO PROVIDE 1968TOTAL KCALS (27KCALS/KG), 95G TOTAL PROTEIN (1.3G/KG FOR HEALING), 2073ML TOTAL WATER FROM FORMULA AND FLUSHES (28ML/KG) START TF AT 20ML/HR AND INCREASE BY 10ML Q 4 HRS UNTIL MAX GOAL IS ACHIEVED CHECK RESIDUALS Q 4 HRS AND HOLD IF >250ML MONITOR TOLERANCE, RESIDUALS AND LYTES Original Note: F/U DISCUSSED WITH PHARMACY REVIEWED LABS PT TO CONTINUE RECEIVING TPN D15AA5 AT 83.33 ML PER HOUR WITH 23ML OF 20% LIPIDS PROVIDES 1972 KCALS (30KCALS/KG BASED ON ADJUSTED IBW), 100G PROTEIN (1.5G/KG BASED ON ADJUSTED IBW) REPLETE LYTES NEEDED PEG TUBE PLACEMENT PLANNED FOR TODAY CONSULT RD FOR TF RECOMMENDATIONS
[2022-04-15] MEDS: ceFAZolin Sodium/Dextrose,Iso 2 GM/50 ML PIGGYBACK IV (10:22)
--- NOTE | 2022-04-15 10:30 | PC.NURSE ---
report received from overnight RN, interactive media director per JUL, pt due to get peg tube placed today. Report called to Preop. Pt down at 1030.
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
--- NOTE | 2022-04-15 12:52 | W.PM.OPN ---
Operative Note Operative Note Date of Service: 04/15/22 Narrative: Preop diagnosis: Dysphagia Postop diagnosis: Dysphagia Procedure: Percutaneous endoscopic gastrostomy tube placement Surgeon: Portillo Aburto MD assistant cross country coach: BERNY Montejo Patient is a 66-year-old male with dementia, alcoholic encephalopathy, and pneumonia with note of dysphagia with subsequent aspiration. He was therefore referred to sd for PEG tube placement. His healthcare proxy Ashwin understood the technique of the planned procedure as well as the risks, benefits, and alternatives and had given consent Patient was brought to the operating room placed supine under general anesthesia via endotracheal tube. A surgical time-out was done. The patient received cefazolin 2 g IV preoperatively. I proceeded to insert the gastroscope through the oral orifice into the oropharynx. The vocal cords were visualized. The esophageal slit was seen posterior to this. The esophageal slit was intubated with the scope and the scope was advanced gently to the esophagus all the way to the stomach. The stomach was insufflated. We were able to easily see transillumination in the epigastric area to the left of the midline. The indentation on the anterior stomach wall was also easily seen when pressure was applied with a finger on this area. This area was therefore prepped and draped. Lidocaine 1% was used for local anesthesia. An incision was made on the skin on this area. The large-bore needle with the cannula was inserted. The reader was removed. The cannula was seen in the lumen. The guidewire was passed through this cannula and was grasped with a snare. This guidewire was then pulled with the gastroscope out through the oral cavity. The feeding tube was looped with this guidewire and was pulled back all the way into the stomach until the internal bolster appeared to be in position. I reinserted the all the way to the stomach. The internal bolster was seen and was in good position. The entire stomach mucosa was examined. There was no ulcer or any lesions or any bleeding. The scope was then withdrawn completely . The external bolster was then position to make this snug on the abdominal wall. The procedure was completed . The patient tolerated procedure well. There were no immediate complications. There was minimal blood loss. The patient was extubated without difficulty and transferred to the recovery room with stable vital signs.
--- NOTE | 2022-04-15 12:58 | P.BOP_ITS ---
Brief Operative Note Date of Service: 04/15/22 Pre-op diagnosis: dysphagia, malnutrition Post-op diagnosis: same Procedure: PEG tube placement Implants: 20F PEG tube Surgeon: GARRISON MCCARTHY MD Anesthesia: TOOTIEA Was an Personnel Research Psychologist used for this Procedure?: Yes Personnel Research Psychologist: Georgina Montejo Estimated blood loss (mL): 0 Pathology: none sent Condition: stable Disposition: PACU
--- NOTE | 2022-04-15 13:54 | P.CONAN_ITS ---
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 (Acute) Pneumonia (Acute) Sepsis (Acute) Dementia (Acute) PAD (peripheral artery disease) (Acute) Ulcer of foot (Acute) Thrush, oral (Acute) Alcohol withdrawal (Acute) Encephalopathy (Acute) Hepatitis (Acute) Encephalopathy (Acute) UTI (urinary tract infection) (Acute) Seizure (Acute) Atherosclerotic cardiovascular disease (Acute) Abnormal echocardiogram findings without diagnosis (Acute) Smoking (Acute) Essential hypertension (Acute) Hypertension (Acute) Cardiomyopathy (Acute) B12 deficiency (Acute) Elevated troponin (Acute) Hyperammonemia (Acute) Hypomagnesemia (Acute) Screening for colon cancer (Acute) Hepatitis C antibody positive in blood (Acute) GERD (gastroesophageal reflux disease) (Acute) Past Medical History Medical History Alcohol abuse Blood per rectum Cardiomyopathy Cellulitis Dementia DVT (deep venous thrombosis) DVT of deep femoral vein GERD (gastroesophageal reflux disease) Hepatitis C antibody positive in blood Hypertension Seizure Functional capacity: independent ambulation Family History Family History Father No problems noted. Mother No problems noted. Brother Cancer Sister No problems noted. Family history of problems with anesthesia: No Surgical History Surgical History No pertinent past surgical history History of Problems with Anesthesia: Unobtainable Social History Social History Household Members: Unknown / Unable to assess Housing: Unknown / Unable to assess Unable to assess alcohol history related to: Unable to respond Alcohol intake: current Alcohol intake frequency: a few times a week Alcohol type: beer Patient Tobacco Use Status: Tobacco use Unknown Cigarettes Per Day: 7 Use of substances other than those prescribed or required for medical reasons: Unknown Substance Use Type: Unknown Currently Displaying Signs/Symptoms of Drug Intoxication Withdrawal: No Are you DNR?: Yes Advance Directives: Yes Advance Directives on File: Yes Advance Directives Date on File: 10/11/20 Recently lost weight without trying: Unsure How much weight loss: Unsure service: No Current occupational status: unemployed and disabled Meds Allergies Allergy/AdvReac Type Severity Reaction Status Date / Time No Known Allergies Allergy Verified 04/07/22 13:53 [No Known Allergies*] Active Medications: Current Medications Acetaminophen (Acetaminophen Supp 650 Mg Supp.Rect) 650 mg SC Q6H PRN PRN Reason: fever Last Admin: 03/29/22 05:54 Dose: 650 mg Albuterol Sulfate (Albuterol Sulfate (0.083%) 2.5 Mg/3 Ml Vial.Neb) 2.5 mg INHALE ONCE PRN PRN Reason: Wheezing Chlorhexidine Gluconate (Chlorhexidine Gluc Oral Rinse 15 Ml Mouthwash) 15 ml BUCCAL DAILY [facility] Last Admin: 04/15/22 08:25 Dose: 15 ml Heparin Sodium (Porcine) 50 (units/ Sodium Chloride 5 ml) [facility] Last Admin: 04/15/22 08:24 Dose: 50 unit Levetiracetam (Keppra) 500 mg in 100 mls @ 400 mls/hr IV BID [facility] Last Infusion: 04/15/22 08:40 Dose: Infused Sodium Chloride 100 meq/Magnesium Sulfate 10 meq/Potassium Phosphate 20 mmol/Jay cium Gluconate 9.3 meq/Sodium Acetate 80 meq/Potassium Acetate 70 meq/Multivitamins 10 ml/ Trace Metals 1 ml/ Amino Acids/Dextrose 1,999.2 mls @ 83.3 mls/hr IV DAILY@1800 [facility] Stop: 04/15/22 17:59 Last Admin: 04/14/22 18:03 Dose: 83.3 mls/hr Sodium Chloride 100 meq/Magnesium Sulfate 10 meq/Potassium Phosphate 20 mmol/Calcium Gluconate 9.3 meq/Sodium Acetate 80 meq/Potassium Acetate 70 meq/Multivitamins 10 ml/ Trace Metals 1 ml/ Amino Acids/Dextrose 2,000 mls @ 83.333 mls/hr IV DAILY@1800 [facility] Stop: 04/16/22 17:59 Fat Emulsion Intravenous (Intralipid) 138 mls @ 23 mls/hr IV DAILY@1800 [facility] Stop: 04/15/22 23:59 Fat Emulsion Intravenous (Intralipid) 138 mls @ 23 mls/hr IV DAILY@0000 [facility] Stop: 04/16/22 05:59 Pantoprazole Sodium (Pantoprazole Sodium 40 Mg/10 Ml Vial) 40 mg IVPUSH BID@0630,1630 [facility] Last Admin: 04/15/22 05:54 Dose: 40 mg Sodium Chloride (0.9 % Sodium Chloride Flush 3 Ml Syringe) 3 ml IVFLUSH QSHIFT [facility] Last Admin: 04/15/22 08:24 Dose: 3 ml Home Medications Medication Instructions Recorded Confirmed Last Taken Type atorvastatin 40 mg tablet 40 mg PO BEDTIME 04/01/20 03/03/22 Unknown History cholecalciferol (vitamin D3) 50 50 mcg PO DAILY 04/01/20 03/03/22 Unknown History mcg (2,000 unit) capsule gabapentin 600 mg tablet 600 mg PO BID 04/01/20 03/03/22 Unknown History metoprolol succinate 25 mg 25 mg PO DAILY 04/01/20 03/03/22 Unknown History tablet,extended release 24 hr phenytoin 50 mg chewable tablet 50 mg PO BID 04/01/20 03/03/22 Unknown History tamsulosin 0.4 mg capsule 0.4 mg PO DAILY 04/01/20 03/03/22 Unknown History umeclidinium 62.5 mcg/actuation 1 puff inhalation DAILY 09/26/20 03/03/22 Unknown History blister powder for inhalation (Incruse Ellipta) sertraline 25 mg tablet 1 tab PO DAILY 06/23/21 03/03/22 Unknown History olanzapine 20 mg tablet 1 tab PO BEDTIME 09/02/21 03/03/22 Unknown History apixaban 5 mg tablet (Eliquis) 5 mg PO BID 11/04/21 03/03/22 Unknown History cyanocobalamin (vitamin B-12) 1,000 mcg PO QAM 11/04/21 03/03/22 Unknown History 1,000 mcg tablet lisinopril 5 mg tablet 5 mg PO DAILY 11/04/21 03/03/22 Unknown History Exam Exam Date and Time: April 15, 2022 1354 Height,Weight and Vital Signs: Height 5 ft 9 in Weight 81.4 kg Last Vital Signs Temp 98.1 F 04/15/22 13:40 Pulse 91 04/15/22 13:40 Resp 16 04/15/22 13:40 BP 127/62 04/15/22 13:40 Pulse Ox 97 04/15/22 13:40 O2 Del Method 04/15/22 13:40 O2 Flow Rate 4 04/15/22 13:25 FiO2 94 03/14/22 20:00 Oxygen Flow Rate 0 04/13/22 14:00 Pertinent Lab Results Pertinent Lab Results: Laboratory Tests 03/03/22 03/03/22 03/03/22 09:37 10:37 10:37 WBC RBC Hgb Hct MCV MCH MCHC RDW Plt Count MPV Immature Gran % (Auto) Neut % (Auto) Lymph % (Auto) [place] % (Auto) Eos % (Auto) Baso % (Auto) Lymph # (Auto) [place] # (Auto) Eos # (Auto) Baso # (Auto) Abs Immat Gran (auto) Absolute Neuts (auto) Absolute Nucleated RBC Nucleated RBC % (auto) Smear Tech's Comments ESR PT INR APTT O2 Saturation ABG pH at Pt Temp ABG pCO2 at Pt Temp ABG pO2 at Pt Temp ABG HCO3 ABG Base Excess (Actual) VBG pH VBG pCO2 VBG pO2 VBG HCO3 VBG O2 Saturation VBG Base Excess Sodium 141 Potassium 4.3 Chloride 104 Carbon Dioxide 26 Anion Gap 15 BUN 13 Creatinine 0.74 Estim Creat Clear Calc 96.8 Estimated GFR > 60 POC Glucose 96 Random Glucose 94 Fasting Glucose Estimat Average Glucose Hgb A1c Fingerstick Hemoglobin A1c % Lactic Acid Lactic Acid F/U @ 2Hr Calcium 9.5 D Phosphorus Magnesium 1.6 Total Bilirubin 0.6 Direct Bilirubin AST 32 D ALT 13 Alkaline Phosphatase 111 D Ammonia 25 Total Creatine Kinase 1414 H D Troponin I High Sens C-Reactive Protein Total Protein 7.5 Albumin 4.0 Triglycerides Vitamin B1 Vitamin B12 Folate Procalcitonin TSH Urine Color Urine Appearance Urine pH Ur Specific [place] Urine Protein Urine Glucose (UA) Urine Ketones Urine Blood Urine Nitrite Ur Leukocyte Esterase Urine RBC Urine WBC Ur Squamous Epith Cells Urine Bacteria Hyaline Casts Urine Creatinine CSF Tube Number CSF Volume CSF Appearance CSF Color CSF WBC CSF RBC CSF Neutrophils CSF Lymphocytes CSF Appearance (b) CSF Glucose CSF Total Protein CSF C.neoform/gat PCR CSF CMV DNA (PCR) CSF Enterovirus (PCR) CSF E. coli K1 (PCR) CSF H. influenzae (PCR) CSF HSV I (PCR) CSF HSV II (PCR) CSF HHV 6 (PCR) CSF L.monocytogenes PCR CSF N. meningitidis PCR CSF Parechovirus (PCR) CSF S. agalactiae (PCR) CSF S. pneumoniae (PCR) CSF VZV (PCR) Nasal Screen MRSA (PCR) Nasal S. aureus Screen Nasal MRSA/S.aureus Interp Stool Occult Blood Vancomycin Trough Random Vancomycin Urine Opiates Screen Urine Fentanyl Screen Ur Barbiturates Screen Phenytoin Ur Phencyclidine Scrn Ur Amphetamines Screen U Benzodiazepines Scrn Urine Cocaine Screen U Marijuana (THC) Screen Ethyl Alcohol < 10 Respiratory Panel Peter T.pallidum Ab (EIA) Adenovirus (Rapid PCR) B.pert (TEM-PCR) B.parapertussis DNA PCR C. pneumoniae DNA (PCR) C. difficile Tox B Gene Coronavirus OC43 (PCR) Coronavirus HKU1 (PCR) Coronavirus 229E (PCR) COVID-19 (KATELYNN) COVID-19 Clin Com Coronavirus NL63 (PCR) HIV 1&2 Ab/P24 Ag 4thGn Human Metapneumovir PCR Influenza A (RT-PCR) Influenza B (RT-PCR) M. pneumoniae (PCR) Parainfluenza 1 (PCR) Parainfluenza 2 (PCR) Parainfluenza 3 (PCR) Parainfluenza 4 (PCR) RSV (PCR) Entero/Rhino (PCR) SARS-CoV-2 RNA (RT-PCR) Blood Type Antibody Screen Crossmatch 03/03/22 03/03/22 03/03/22 10:37 10:37 10:37 WBC 9.5 RBC 4.08 L Hgb 12.3 L Hct 37.1 L MCV 90.9 MCH 30.1 MCHC 33.2 RDW 12.6 Plt Count 256 MPV 8.8 L Immature Gran % (Auto) 0.3 Neut % (Auto) 56.0 Lymph % (Auto) 29.4 [place] % (Auto) 12.0 H Eos % (Auto) 1.6 Baso % (Auto) 0.7 Lymph # (Auto) 2.8 [place] # (Auto) 1.1 Eos # (Auto) 0.2 Baso # (Auto) 0.1 Abs Immat Gran (auto) 0.03 Absolute Neuts (auto) 5.3 Absolute Nucleated RBC 0.000 Nucleated RBC % (auto) 0.0 Smear Tech's Comments ESR PT INR APTT O2 Saturation ABG pH at Pt Temp ABG pCO2 at Pt Temp ABG pO2 at Pt Temp ABG HCO3 ABG Base Excess (Actual) VBG pH VBG pCO2 VBG pO2 VBG HCO3 VBG O2 Saturation VBG Base Excess Sodium Potassium Chloride Carbon Dioxide Anion Gap BUN Creatinine Estim Creat Clear Calc Estimated GFR POC Glucose Random Glucose Fasting Glucose Estimat Average Glucose Hgb A1c Fingerstick Hemoglobin A1c % Lactic Acid 1.3 Lactic Acid F/U @ 2Hr Calcium Phosphorus Magnesium Total Bilirubin Direct Bilirubin AST ALT Alkaline Phosphatase Ammonia Total Creatine Kinase Troponin I High Sens 38.5 H C-Reactive Protein Total Protein Albumin Triglycerides Vitamin B1 Vitamin B12 Folate Procalcitonin TSH Urine Color Urine Appearance Urine pH Ur Specific [place] Urine Protein Urine Glucose (UA) Urine Ketones Urine Blood Urine Nitrite Ur Leukocyte Esterase Urine RBC Urine WBC Ur Squamous Epith Cells Urine Bacteria Hyaline Casts Urine Creatinine CSF Tube Number CSF Volume CSF Appearance CSF Color CSF WBC CSF RBC CSF Neutrophils CSF Lymphocytes CSF Appearance (b) CSF Glucose CSF Total Protein CSF C.neoform/gat PCR CSF CMV DNA (PCR) CSF Enterovirus (PCR) CSF E. coli K1 (PCR) CSF H. influenzae (PCR) CSF HSV I (PCR) CSF HSV II (PCR) CSF HHV 6 (PCR) CSF L.monocytogenes PCR CSF N. meningitidis PCR CSF Parechovirus (PCR) CSF S. agalactiae (PCR) CSF S. pneumoniae (PCR) CSF VZV (PCR) Nasal Screen MRSA (PCR) Nasal S. aureus Screen Nasal MRSA/S.aureus Interp Stool Occult Blood Vancomycin Trough Random Vancomycin Urine Opiates Screen Urine Fentanyl Screen Ur Barbiturates Screen Phenytoin Ur Phencyclidine Scrn Ur Amphetamines Screen U Benzodiazepines Scrn Urine Cocaine Screen U Marijuana (THC) Screen Ethyl Alcohol Respiratory Panel Peter T.pallidum Ab (EIA) Adenovirus (Rapid PCR) B.pert (TEM-PCR) B.parapertussis DNA PCR C. pneumoniae DNA (PCR) C. difficile Tox B Gene Coronavirus OC43 (PCR) Coronavirus HKU1 (PCR) Coronavirus 229E (PCR) COVID-19 (KATELYNN) COVID-19 Clin Com Coronavirus NL63 (PCR) HIV 1&2 Ab/P24 Ag 4thGn Human Metapneumovir PCR Influenza A (RT-PCR) Influenza B (RT-PCR) M. pneumoniae (PCR) Parainfluenza 1 (PCR) Parainfluenza 2 (PCR) Parainfluenza 3 (PCR) Parainfluenza 4 (PCR) RSV (PCR) Entero/Rhino (PCR) SARS-CoV-2 RNA (RT-PCR) Blood Type Antibody Screen Crossmatch 03/03/22 03/03/22 03/03/22 10:41 10:41 10:41 WBC RBC Hgb Hct MCV MCH MCHC RDW Plt Count MPV Immature Gran % (Auto) Neut % (Auto) Lymph % (Auto) [place] % (Auto) Eos % (Auto) Baso % (Auto) Lymph # (Auto) [place] # (Auto) Eos # (Auto) Baso # (Auto) Abs Immat Gran (auto) Absolute Neuts (auto) Absolute Nucleated RBC Nucleated RBC % (auto) Smear Tech's Comments ESR PT INR APTT O2 Saturation ABG pH at Pt Temp ABG pCO2 at Pt Temp ABG pO2 at Pt Temp ABG HCO3 ABG Base Excess (Actual) VBG pH 7.39 VBG pCO2 40 VBG pO2 34 VBG HCO3 24 VBG O2 Saturation 49.0 VBG Base Excess 0.0 Sodium Potassium Chloride Carbon Dioxide Anion Gap BUN Creatinine Estim Creat Clear Calc Estimated GFR POC Glucose Random Glucose Fasting Glucose Estimat Average Glucose Hgb A1c Fingerstick Hemoglobin A1c % Lactic Acid Lactic Acid F/U @ 2Hr Calcium Phosphorus Magnesium Total Bilirubin Direct Bilirubin AST ALT Alkaline Phosphatase Ammonia Total Creatine Kinase Troponin I High Sens C-Reactive Protein Total Protein Albumin Triglycerides Vitamin B1 Vitamin B12 Folate Procalcitonin TSH Urine Color Dark Yellow Urine Appearance Turbid Urine pH 7.0 Ur Specific [place] 1.025 Urine Protein 30 (1+) H Urine Glucose (UA) Negative Urine Ketones 15 Urine Blood Negative Urine Nitrite Negative Ur Leukocyte Esterase Moderate (2+) H Urine RBC >20 H Urine WBC 6-10 H Ur Squamous Epith Cells 0-2 Urine Bacteria 4+ Hyaline Casts 0-2 Urine Creatinine CSF Tube Number CSF Volume CSF Appearance CSF Color CSF WBC CSF RBC CSF Neutrophils CSF Lymphocytes CSF Appearance (b) CSF Glucose CSF Total Protein CSF C.neoform/gat PCR CSF CMV DNA (PCR) CSF Enterovirus (PCR) CSF E. coli K1 (PCR) CSF H. influenzae (PCR) CSF HSV I (PCR) CSF HSV II (PCR) CSF HHV 6 (PCR) CSF L.monocytogenes PCR CSF N. meningitidis PCR CSF Parechovirus (PCR) CSF S. agalactiae (PCR) CSF S. pneumoniae (PCR) CSF VZV (PCR) Nasal Screen MRSA (PCR) Nasal S. aureus Screen Nasal MRSA/S.aureus Interp Stool Occult Blood Vancomycin Trough Random Vancomycin Urine Opiates Screen Not Detected Urine Fentanyl Screen Not Detected Ur Barbiturates Screen Not Detected Phenytoin Ur Phencyclidine Scrn Not Detected Ur Amphetamines Screen Not Detected U Benzodiazepines Scrn Not Detected Urine Cocaine Screen Not Detected U Marijuana (THC) Screen Not Detected Ethyl Alcohol Respiratory Panel Peter T.pallidum Ab (EIA) Adenovirus (Rapid PCR) B.pert (TEM-PCR) B.parapertussis DNA PCR C. pneumoniae DNA (PCR) C. difficile Tox B Gene Coronavirus OC43 (PCR) Coronavirus HKU1 (PCR) Coronavirus 229E (PCR) COVID-19 (KATELYNN) COVID-19 Clin Com Coronavirus NL63 (PCR) HIV 1&2 Ab/P24 Ag 4thGn Human Metapneumovir PCR Influenza A (RT-PCR) Influenza B (RT-PCR) M. pneumoniae (PCR) Parainfluenza 1 (PCR) Parainfluenza 2 (PCR) Parainfluenza 3 (PCR) Parainfluenza 4 (PCR) RSV (PCR) Entero/Rhino (PCR) SARS-CoV-2 RNA (RT-PCR) Blood Type Antibody Screen Crossmatch 03/03/22 03/03/22 03/03/22 10:42 12:47 12:47 WBC RBC Hgb Hct MCV MCH MCHC RDW Plt Count MPV Immature Gran % (Auto) Neut % (Auto) Lymph % (Auto) [place] % (Auto) Eos % (Auto) Baso % (Auto) Lymph # (Auto) [place] # (Auto) Eos # (Auto) Baso # (Auto) Abs Immat Gran (auto) Absolute Neuts (auto) Absolute Nucleated RBC Nucleated RBC % (auto) Smear Tech's Comments ESR PT 13.2 H INR 1.1 APTT 27.5 O2 Saturation ABG pH at Pt Temp ABG pCO2 at Pt Temp ABG pO2 at Pt Temp ABG HCO3 ABG Base Excess (Actual) VBG pH VBG pCO2 VBG pO2 VBG HCO3 VBG O2 Saturation VBG Base Excess Sodium Potassium Chloride Carbon Dioxide Anion Gap BUN Creatinine Estim Creat Clear Calc Estimated GFR POC Glucose Random Glucose Fasting Glucose Estimat Average Glucose Hgb A1c Fingerstick Hemoglobin A1c % Lactic Acid Lactic Acid F/U @ 2Hr Calcium Phosphorus Magnesium Total Bilirubin Direct Bilirubin AST ALT Alkaline Phosphatase Ammonia Total Creatine Kinase Troponin I High Sens 40.5 H C-Reactive Protein Total Protein Albumin Triglycerides Vitamin B1 Vitamin B12 Folate Procalcitonin TSH Urine Color Urine Appearance Urine pH Ur Specific [place] Urine Protein Urine Glucose (UA) Urine Ketones Urine Blood Urine Nitrite Ur Leukocyte Esterase Urine RBC Urine WBC Ur Squamous Epith Cells Urine Bacteria Hyaline Casts Urine Creatinine CSF Tube Number CSF Volume CSF Appearance CSF Color CSF WBC CSF RBC CSF Neutrophils CSF Lymphocytes CSF Appearance (b) CSF Glucose CSF Total Protein CSF C.neoform/gat PCR CSF CMV DNA (PCR) CSF Enterovirus (PCR) CSF E. coli K1 (PCR) CSF H. influenzae (PCR) CSF HSV I (PCR) CSF HSV II (PCR) CSF HHV 6 (PCR) CSF L.monocytogenes PCR CSF N. meningitidis PCR CSF Parechovirus (PCR) CSF S. agalactiae (PCR) CSF S. pneumoniae (PCR) CSF VZV (PCR) Nasal Screen MRSA (PCR) Nasal S. aureus Screen Nasal MRSA/S.aureus Interp Stool Occult Blood Vancomycin Trough Random Vancomycin Urine Opiates Screen Urine Fentanyl Screen Ur Barbiturates Screen Phenytoin Ur Phencyclidine Scrn Ur Amphetamines Screen U Benzodiazepines Scrn Urine Cocaine Screen U Marijuana (THC) Screen Ethyl Alcohol Respiratory Panel Peter T.pallidum Ab (EIA) Adenovirus (Rapid PCR) B.pert (TEM-PCR) B.parapertussis DNA PCR C. pneumoniae DNA (PCR) C. difficile Tox B Gene Coronavirus OC43 (PCR) Coronavirus HKU1 (PCR) Coronavirus 229E (PCR) COVID-19 (KATELYNN) Negative COVID-19 Clin Com See Note Coronavirus NL63 (PCR) HIV 1&2 Ab/P24 Ag 4thGn Human Metapneumovir PCR Influenza A (RT-PCR) Influenza B (RT-PCR) M. pneumoniae (PCR) Parainfluenza 1 (PCR) Parainfluenza 2 (PCR) Parainfluenza 3 (PCR) Parainfluenza 4 (PCR) RSV (PCR) Entero/Rhino (PCR) SARS-CoV-2 RNA (RT-PCR) Blood Type Antibody Screen Crossmatch 03/03/22 03/04/22 03/05/22 15:57 07:10 07:52 WBC 12.4 H RBC 4.54 L Hgb 13.6 L Hct 41.0 L MCV 90.3 MCH 30.0 MCHC 33.2 RDW 12.4 Plt Count 276 MPV 8.8 L Immature Gran % (Auto) 0.2 Neut % (Auto) 59.0 Lymph % (Auto) 25.7 [place] % (Auto) 12.1 H Eos % (Auto) 2.5 Baso % (Auto) 0.5 Lymph # (Auto) 3.2 [place] # (Auto) 1.5 H Eos # (Auto) 0.3 Baso # (Auto) 0.1 Abs Immat Gran (auto) 0.02 Absolute Neuts (auto) 7.3 Absolute Nucleated RBC 0.000 Nucleated RBC % (auto) 0.0 Smear Tech's Comments VERIFIED ESR PT INR APTT O2 Saturation ABG pH at Pt Temp ABG pCO2 at Pt Temp ABG pO2 at Pt Temp ABG HCO3 ABG Base Excess (Actual) VBG pH VBG pCO2 VBG pO2 VBG HCO3 VBG O2 Saturation VBG Base Excess Sodium 138 Potassium 3.9 Chloride 105 Carbon Dioxide 21 L Anion Gap 16 BUN 7 L Creatinine 0.67 Estim Creat Clear Calc 106.9 Estimated GFR > 60 POC Glucose Random Glucose 90 Fasting Glucose Estimat Average Glucose Hgb A1c Fingerstick Hemoglobin A1c % Lactic Acid Lactic Acid F/U @ 2Hr Calcium 8.8 D Phosphorus Magnesium Total Bilirubin Direct Bilirubin AST ALT Alkaline Phosphatase Ammonia Total Creatine Kinase 1505 H Troponin I High Sens C-Reactive Protein Total Protein Albumin Triglycerides Vitamin B1 Vitamin B12 Folate Procalcitonin TSH Urine Color Urine Appearance Urine pH Ur Specific [place] Urine Protein Urine Glucose (UA) Urine Ketones Urine Blood Urine Nitrite Ur Leukocyte Esterase Urine RBC Urine WBC Ur Squamous Epith Cells Urine Bacteria Hyaline Casts Urine Creatinine CSF Tube Number CSF Volume CSF Appearance CSF Color CSF WBC CSF RBC CSF Neutrophils CSF Lymphocytes CSF Appearance (b) CSF Glucose CSF Total Protein CSF C.neoform/gat PCR CSF CMV DNA (PCR) CSF Enterovirus (PCR) CSF E. coli K1 (PCR) CSF H. influenzae (PCR) CSF HSV I (PCR) CSF HSV II (PCR) CSF HHV 6 (PCR) CSF L.monocytogenes PCR CSF N. meningitidis PCR CSF Parechovirus (PCR) CSF S. agalactiae (PCR) CSF S. pneumoniae (PCR) CSF VZV (PCR) Nasal Screen MRSA (PCR) Nasal S. aureus Screen Nasal MRSA/S.aureus Interp Stool Occult Blood Vancomycin Trough Random Vancomycin Urine Opiates Screen Urine Fentanyl Screen Ur Barbiturates Screen Phenytoin 1.3 L* Ur Phencyclidine Scrn Ur Amphetamines Screen U Benzodiazepines Scrn Urine Cocaine Screen U Marijuana (THC) Screen Ethyl Alcohol Respiratory Panel Peter T.pallidum Ab (EIA) Adenovirus (Rapid PCR) B.pert (TEM-PCR) B.parapertussis DNA PCR C. pneumoniae DNA (PCR) C. difficile Tox B Gene Coronavirus OC43 (PCR) Coronavirus HKU1 (PCR) Coronavirus 229E (PCR) COVID-19 (KATELYNN) COVID-19 Clin Com Coronavirus NL63 (PCR) HIV 1&2 Ab/P24 Ag 4thGn Human Metapneumovir PCR Influenza A (RT-PCR) Influenza B (RT-PCR) M. pneumoniae (PCR) Parainfluenza 1 (PCR) Parainfluenza 2 (PCR) Parainfluenza 3 (PCR) Parainfluenza 4 (PCR) RSV (PCR) Entero/Rhino (PCR) SARS-CoV-2 RNA (RT-PCR) Blood Type Antibody Screen Crossmatch 03/05/22 03/06/22 03/06/22 07:52 08:14 08:14 WBC 10.1 RBC 4.28 L Hgb 12.8 L Hct 38.7 L MCV 90.4 MCH 29.9 MCHC 33.1 RDW 12.5 Plt Count 276 MPV 8.7 L Immature Gran % (Auto) 0.2 Neut % (Auto) 57.7 Lymph % (Auto) 25.0 [place] % (Auto) 12.2 H Eos % (Auto) 4.5 H Baso % (Auto) 0.4 Lymph # (Auto) 2.5 [place] # (Auto) 1.2 Eos # (Auto) 0.5 H Baso # (Auto) 0.0 Abs Immat Gran (auto) 0.02 Absolute Neuts (auto) 5.8 Absolute Nucleated RBC 0.000 Nucleated RBC % (auto) 0.0 Smear Tech's Comments ESR PT INR APTT O2 Saturation ABG pH at Pt Temp ABG pCO2 at Pt Temp ABG pO2 at Pt Temp ABG HCO3 ABG Base Excess (Actual) VBG pH VBG pCO2 VBG pO2 VBG HCO3 VBG O2 Saturation VBG Base Excess Sodium 136 138 Potassium 4.8 D 3.8 D Chloride 102 102 Carbon Dioxide 18 L 23 Anion Gap 21 H 17 BUN 7 L 12 D Creatinine 0.70 0.73 Estim Creat Clear Calc 102.4 98.1 Estimated GFR > 60 > 60 POC Glucose Random Glucose Fasting Glucose 82 92 Estimat Average Glucose Hgb A1c Fingerstick Hemoglobin A1c % Lactic Acid Lactic Acid F/U @ 2Hr Calcium 8.9 9.1 Phosphorus Magnesium Total Bilirubin 0.8 0.6 Direct Bilirubin AST 30 19 ALT 13 9 Alkaline Phosphatase 98 91 Ammonia Total Creatine Kinase Troponin I High Sens C-Reactive Protein Total Protein 7.3 7.0 Albumin 3.7 3.6 Triglycerides Vitamin B1 Vitamin B12 Folate Procalcitonin TSH Urine Color Urine Appearance Urine pH Ur Specific [place] Urine Protein Urine Glucose (UA) Urine Ketones Urine Blood Urine Nitrite Ur Leukocyte Esterase Urine RBC Urine WBC Ur Squamous Epith Cells Urine Bacteria Hyaline Casts Urine Creatinine CSF Tube Number CSF Volume CSF Appearance CSF Color CSF WBC CSF RBC CSF Neutrophils CSF Lymphocytes CSF Appearance (b) CSF Glucose CSF Total Protein CSF C.neoform/gat PCR CSF CMV DNA (PCR) CSF Enterovirus (PCR) CSF E. coli K1 (PCR) CSF H. influenzae (PCR) CSF HSV I (PCR) CSF HSV II (PCR) CSF HHV 6 (PCR) CSF L.monocytogenes PCR CSF N. meningitidis PCR CSF Parechovirus (PCR) CSF S. agalactiae (PCR) CSF S. pneumoniae (PCR) CSF VZV (PCR) Nasal Screen MRSA (PCR) Nasal S. aureus Screen Nasal MRSA/S.aureus Interp Stool Occult Blood Vancomycin Trough Random Vancomycin Urine Opiates Screen Urine Fentanyl Screen Ur Barbiturates Screen Phenytoin Ur Phencyclidine Scrn Ur Amphetamines Screen U Benzodiazepines Scrn Urine Cocaine Screen U Marijuana (THC) Screen Ethyl Alcohol Respiratory Panel Peter T.pallidum Ab (EIA) Adenovirus (Rapid PCR) B.pert (TEM-PCR) B.parapertussis DNA PCR C. pneumoniae DNA (PCR) C. difficile Tox B Gene Coronavirus OC43 (PCR) Coronavirus HKU1 (PCR) Coronavirus 229E (PCR) COVID-19 (KATELYNN) COVID-19 Clin Com Coronavirus NL63 (PCR) HIV 1&2 Ab/P24 Ag 4thGn Human Metapneumovir PCR Influenza A (RT-PCR) Influenza B (RT-PCR) M. pneumoniae (PCR) Parainfluenza 1 (PCR) Parainfluenza 2 (PCR) Parainfluenza 3 (PCR) Parainfluenza 4 (PCR) RSV (PCR) Entero/Rhino (PCR) SARS-CoV-2 RNA (RT-PCR) Blood Type Antibody Screen Crossmatch 03/06/22 03/06/22 03/06/22 08:15 09:51 09:57 WBC RBC Hgb Hct MCV MCH MCHC RDW Plt Count MPV Immature Gran % (Auto) Neut % (Auto) Lymph % (Auto) [place] % (Auto) Eos % (Auto) Baso % (Auto) Lymph # (Auto) [place] # (Auto) Eos # (Auto) Baso # (Auto) Abs Immat Gran (auto) Absolute Neuts (auto) Absolute Nucleated RBC Nucleated RBC % (auto) Smear Tech's Comments ESR PT INR APTT O2 Saturation 93.0 ABG pH at Pt Temp 7.42 ABG pCO2 at Pt Temp 30 L ABG pO2 at Pt Temp 75 L ABG HCO3 20 L ABG Base Excess (Actual) -2.9 VBG pH VBG pCO2 VBG pO2 VBG HCO3 VBG O2 Saturation VBG Base Excess Sodium Potassium Chloride Carbon Dioxide Anion Gap BUN Creatinine Estim Creat Clear Calc Estimated GFR POC Glucose Random Glucose Fasting Glucose Estimat Average Glucose Hgb A1c Fingerstick Hemoglobin A1c % Lactic Acid Lactic Acid F/U @ 2Hr Calcium Phosphorus Magnesium Total Bilirubin Direct Bilirubin AST ALT Alkaline Phosphatase Ammonia 31 Total Creatine Kinase 615 H D Troponin I High Sens C-Reactive Protein Total Protein Albumin Triglycerides Vitamin B1 Vitamin B12 Folate Procalcitonin TSH Urine Color Urine Appearance Urine pH Ur Specific [place] Urine Protein Urine Glucose (UA) Urine Ketones Urine Blood Urine Nitrite Ur Leukocyte Esterase Urine RBC Urine WBC Ur Squamous Epith Cells Urine Bacteria Hyaline Casts Urine Creatinine CSF Tube Number CSF Volume CSF Appearance CSF Color CSF WBC CSF RBC CSF Neutrophils CSF Lymphocytes CSF Appearance (b) CSF Glucose CSF Total Protein CSF C.neoform/gat PCR CSF CMV DNA (PCR) CSF Enterovirus (PCR) CSF E. coli K1 (PCR) CSF H. influenzae (PCR) CSF HSV I (PCR) CSF HSV II (PCR) CSF HHV 6 (PCR) CSF L.monocytogenes PCR CSF N. meningitidis PCR CSF Parechovirus (PCR) CSF S. agalactiae (PCR) CSF S. pneumoniae (PCR) CSF VZV (PCR) Nasal Screen MRSA (PCR) Nasal S. aureus Screen Nasal MRSA/S.aureus Interp Stool Occult Blood Vancomycin Trough Random Vancomycin Urine Opiates Screen Urine Fentanyl Screen Ur Barbiturates Screen Phenytoin Ur Phencyclidine Scrn Ur Amphetamines Screen U Benzodiazepines Scrn Urine Cocaine Screen U Marijuana (THC) Screen Ethyl Alcohol Respiratory Panel Peter T.pallidum Ab (EIA) Adenovirus (Rapid PCR) B.pert (TEM-PCR) B.parapertussis DNA PCR C. pneumoniae DNA (PCR) C. difficile Tox B Gene Coronavirus OC43 (PCR) Coronavirus HKU1 (PCR) Coronavirus 229E (PCR) COVID-19 (KATELYNN) COVID-19 Clin Com Coronavirus NL63 (PCR) HIV 1&2 Ab/P24 Ag 4thGn Human Metapneumovir PCR Influenza A (RT-PCR) Influenza B (RT-PCR) M. pneumoniae (PCR) Parainfluenza 1 (PCR) Parainfluenza 2 (PCR) Parainfluenza 3 (PCR) Parainfluenza 4 (PCR) RSV (PCR) Entero/Rhino (PCR) SARS-CoV-2 RNA (RT-PCR) Blood Type Antibody Screen Crossmatch 03/07/22 03/07/22 03/11/22 07:07 08:24 09:20 WBC 9.1 8.1 RBC 4.43 L 4.18 L Hgb 13.0 L 12.3 L Hct 40.1 L 38.4 L MCV 90.5 91.9 MCH 29.3 29.4 MCHC 32.4 32.0 RDW 12.6 12.3 Plt Count 311 352 MPV 8.8 L 8.3 L Immature Gran % (Auto) 0.3 0.1 Neut % (Auto) 53.8 55.8 Lymph % (Auto) 27.6 25.9 [place] % (Auto) 12.3 H 11.3 H Eos % (Auto) 5.5 H 6.3 H Baso % (Auto) 0.5 0.6 Lymph # (Auto) 2.5 2.1 [place] # (Auto) 1.1 0.9 Eos # (Auto) 0.5 H 0.5 H Baso # (Auto) 0.1 0.1 Abs Immat Gran (auto) 0.03 0.01 Absolute Neuts (auto) 4.9 4.5 Absolute Nucleated RBC 0.000 0.000 Nucleated RBC % (auto) 0.0 0.0 Smear Tech's Comments ESR PT INR APTT O2 Saturation ABG pH at Pt Temp ABG pCO2 at Pt Temp ABG pO2 at Pt Temp ABG HCO3 ABG Base Excess (Actual) VBG pH VBG pCO2 VBG pO2 VBG HCO3 VBG O2 Saturation VBG Base Excess Sodium 136 Potassium 4.8 D Chloride 102 Carbon Dioxide 20 L Anion Gap 19 BUN 9 Creatinine 0.69 Estim Creat Clear Calc 103.8 Estimated GFR > 60 POC Glucose Random Glucose TNP Fasting Glucose 119 H Estimat Average Glucose Hgb A1c Fingerstick Hemoglobin A1c % Lactic Acid Lactic Acid F/U @ 2Hr Calcium 8.9 Phosphorus Magnesium Total Bilirubin 0.4 Direct Bilirubin AST 24 ALT 10 Alkaline Phosphatase 89 Ammonia Total Creatine Kinase Troponin I High Sens C-Reactive Protein Total Protein 7.4 Albumin 3.5 Triglycerides Vitamin B1 Vitamin B12 Folate Procalcitonin TSH Urine Color Urine Appearance Urine pH Ur Specific [place] Urine Protein Urine Glucose (UA) Urine Ketones Urine Blood Urine Nitrite Ur Leukocyte Esterase Urine RBC Urine WBC Ur Squamous Epith Cells Urine Bacteria Hyaline Casts Urine Creatinine CSF Tube Number CSF Volume CSF Appearance CSF Color CSF WBC CSF RBC CSF Neutrophils CSF Lymphocytes CSF Appearance (b) CSF Glucose CSF Total Protein CSF C.neoform/gat PCR CSF CMV DNA (PCR) CSF Enterovirus (PCR) CSF E. coli K1 (PCR) CSF H. influenzae (PCR) CSF HSV I (PCR) CSF HSV II (PCR) CSF HHV 6 (PCR) CSF L.monocytogenes PCR CSF N. meningitidis PCR CSF Parechovirus (PCR) CSF S. agalactiae (PCR) CSF S. pneumoniae (PCR) CSF VZV (PCR) Nasal Screen MRSA (PCR) Nasal S. aureus Screen Nasal MRSA/S.aureus Interp Stool Occult Blood Vancomycin Trough Random Vancomycin Urine Opiates Screen Urine Fentanyl Screen Ur Barbiturates Screen Phenytoin Ur Phencyclidine Scrn Ur Amphetamines Screen U Benzodiazepines Scrn Urine Cocaine Screen U Marijuana (THC) Screen Ethyl Alcohol Respiratory Panel Peter T.pallidum Ab (EIA) Adenovirus (Rapid PCR) B.pert (TEM-PCR) B.parapertussis DNA PCR C. pneumoniae DNA (PCR) C. difficile Tox B Gene Coronavirus OC43 (PCR) Coronavirus HKU1 (PCR) Coronavirus 229E (PCR) COVID-19 (KATELYNN) COVID-19 Clin Com Coronavirus NL63 (PCR) HIV 1&2 Ab/P24 Ag 4thGn Human Metapneumovir PCR Influenza A (RT-PCR) Influenza B (RT-PCR) M. pneumoniae (PCR) Parainfluenza 1 (PCR) Parainfluenza 2 (PCR) Parainfluenza 3 (PCR) Parainfluenza 4 (PCR) RSV (PCR) Entero/Rhino (PCR) SARS-CoV-2 RNA (RT-PCR) Blood Type Antibody Screen Crossmatch 03/11/22 03/11/22 03/11/22 09:20 09:20 09:20 WBC RBC Hgb Hct MCV MCH MCHC RDW Plt Count MPV Immature Gran % (Auto) Neut % (Auto) Lymph % (Auto) [place] % (Auto) Eos % (Auto) Baso % (Auto) Lymph # (Auto) [place] # (Auto) Eos # (Auto) Baso # (Auto) Abs Immat Gran (auto) Absolute Neuts (auto) Absolute Nucleated RBC Nucleated RBC % (auto) Smear Tech's Comments ESR PT INR APTT O2 Saturation ABG pH at Pt Temp ABG pCO2 at Pt Temp ABG pO2 at Pt Temp ABG HCO3 ABG Base Excess (Actual) VBG pH VBG pCO2 VBG pO2 VBG HCO3 VBG O2 Saturation VBG Base Excess Sodium 138 Potassium 4.9 Chloride 103 Carbon Dioxide 26 Anion Gap 14 BUN 9 Creatinine 0.62 Estim Creat Clear Calc 115.6 Estimated GFR > 60 POC Glucose Random Glucose 95 Fasting Glucose Estimat Average Glucose Hgb A1c Fingerstick Hemoglobin A1c % Lactic Acid 2.1 H* Lactic Acid F/U @ 2Hr Calcium 9.2 Phosphorus Magnesium Total Bilirubin 0.4 Direct Bilirubin 0.3 AST 31 ALT 17 Alkaline Phosphatase 88 Ammonia Total Creatine Kinase Troponin I High Sens C-Reactive Protein Total Protein 7.3 Albumin 3.4 L Triglycerides Vitamin B1 Vitamin B12 Folate Procalcitonin TSH Urine Color Urine Appearance Urine pH Ur Specific [place] Urine Protein Urine Glucose (UA) Urine Ketones Urine Blood Urine Nitrite Ur Leukocyte Esterase Urine RBC Urine WBC Ur Squamous Epith Cells Urine Bacteria Hyaline Casts Urine Creatinine CSF Tube Number CSF Volume CSF Appearance CSF Color CSF WBC CSF RBC CSF Neutrophils CSF Lymphocytes CSF Appearance (b) CSF Glucose CSF Total Protein CSF C.neoform/gat PCR CSF CMV DNA (PCR) CSF Enterovirus (PCR) CSF E. coli K1 (PCR) CSF H. influenzae (PCR) CSF HSV I (PCR) CSF HSV II (PCR) CSF HHV 6 (PCR) CSF L.monocytogenes PCR CSF N. meningitidis PCR CSF Parechovirus (PCR) CSF S. agalactiae (PCR) CSF S. pneumoniae (PCR) CSF VZV (PCR) Nasal Screen MRSA (PCR) Nasal S. aureus Screen Nasal MRSA/S.aureus Interp Stool Occult Blood Vancomycin Trough Random Vancomycin Urine Opiates Screen Urine Fentanyl Screen Ur Barbiturates Screen Phenytoin Ur Phencyclidine Scrn Ur Amphetamines Screen U Benzodiazepines Scrn Urine Cocaine Screen U Marijuana (THC) Screen Ethyl Alcohol Respiratory Panel Peter T.pallidum Ab (EIA) Adenovirus (Rapid PCR) B.pert (TEM-PCR) B.parapertussis DNA PCR C. pneumoniae DNA (PCR) C. difficile Tox B Gene Coronavirus OC43 (PCR) Coronavirus HKU1 (PCR) Coronavirus 229E (PCR) COVID-19 (KATELYNN) COVID-19 Clin Com Coronavirus NL63 (PCR) HIV 1&2 Ab/P24 Ag 4thGn Human Metapneumovir PCR Influenza A (RT-PCR) Influenza B (RT-PCR) M. pneumoniae (PCR) Parainfluenza 1 (PCR) Parainfluenza 2 (PCR) Parainfluenza 3 (PCR) Parainfluenza 4 (PCR) RSV (PCR) Entero/Rhino (PCR) SARS-CoV-2 RNA (RT-PCR) Blood Type Antibody Screen Crossmatch 03/11/22 03/11/22 03/11/22 09:20 09:27 11:37 WBC RBC Hgb Hct MCV MCH MCHC RDW Plt Count MPV Immature Gran % (Auto) Neut % (Auto) Lymph % (Auto) [place] % (Auto) Eos % (Auto) Baso % (Auto) Lymph # (Auto) [place] # (Auto) Eos # (Auto) Baso # (Auto) Abs Immat Gran (auto) Absolute Neuts (auto) Absolute Nucleated RBC Nucleated RBC % (auto) Smear Tech's Comments ESR PT INR APTT O2 Saturation ABG pH at Pt Temp ABG pCO2 at Pt Temp ABG pO2 at Pt Temp ABG HCO3 ABG Base Excess (Actual) VBG pH 7.35 VBG pCO2 40 VBG pO2 40 VBG HCO3 23 VBG O2 Saturation 56.0 VBG Base Excess -2.0 Sodium Potassium Chloride Carbon Dioxide Anion Gap BUN Creatinine Estim Creat Clear Calc Estimated GFR POC Glucose Random Glucose Fasting Glucose Estimat Average Glucose Hgb A1c Fingerstick Hemoglobin A1c % Lactic Acid Lactic Acid F/U @ 2Hr 0.7 Calcium Phosphorus Magnesium Total Bilirubin Direct Bilirubin AST ALT Alkaline Phosphatase Ammonia 30 Total Creatine Kinase Troponin I High Sens C-Reactive Protein Total Protein Albumin Triglycerides Vitamin B1 Vitamin B12 Folate Procalcitonin TSH Urine Color Urine Appearance Urine pH Ur Specific [place] Urine Protein Urine Glucose (UA) Urine Ketones Urine Blood Urine Nitrite Ur Leukocyte Esterase Urine RBC Urine WBC Ur Squamous Epith Cells Urine Bacteria Hyaline Casts Urine Creatinine CSF Tube Number CSF Volume CSF Appearance CSF Color CSF WBC CSF RBC CSF Neutrophils CSF Lymphocytes CSF Appearance (b) CSF Glucose CSF Total Protein CSF C.neoform/gat PCR CSF CMV DNA (PCR) CSF Enterovirus (PCR) CSF E. coli K1 (PCR) CSF H. influenzae (PCR) CSF HSV I (PCR) CSF HSV II (PCR) CSF HHV 6 (PCR) CSF L.monocytogenes PCR CSF N. meningitidis PCR CSF Parechovirus (PCR) CSF S. agalactiae (PCR) CSF S. pneumoniae (PCR) CSF VZV (PCR) Nasal Screen MRSA (PCR) Nasal S. aureus Screen Nasal MRSA/S.aureus Interp Stool Occult Blood Vancomycin Trough Random Vancomycin Urine Opiates Screen Urine Fentanyl Screen Ur Barbiturates Screen Phenytoin Ur Phencyclidine Scrn Ur Amphetamines Screen U Benzodiazepines Scrn Urine Cocaine Screen U Marijuana (THC) Screen Ethyl Alcohol Respiratory Panel Peter T.pallidum Ab (EIA) Adenovirus (Rapid PCR) B.pert (TEM-PCR) B.parapertussis DNA PCR C. pneumoniae DNA (PCR) C. difficile Tox B Gene Coronavirus OC43 (PCR) Coronavirus HKU1 (PCR) Coronavirus 229E (PCR) COVID-19 (KATELYNN) COVID-19 Clin Com Coronavirus NL63 (PCR) HIV 1&2 Ab/P24 Ag 4thGn Human Metapneumovir PCR Influenza A (RT-PCR) Influenza B (RT-PCR) M. pneumoniae (PCR) Parainfluenza 1 (PCR) Parainfluenza 2 (PCR) Parainfluenza 3 (PCR) Parainfluenza 4 (PCR) RSV (PCR) Entero/Rhino (PCR) SARS-CoV-2 RNA (RT-PCR) Blood Type Antibody Screen Crossmatch 03/12/22 03/13/22 03/13/22 15:37 07:50 07:50 WBC 8.8 RBC 4.32 L Hgb 12.6 L Hct 38.9 L MCV 90.0 MCH 29.2 MCHC 32.4 RDW 12.3 Plt Count 367 MPV 8.5 L Immature Gran % (Auto) Neut % (Auto) Lymph % (Auto) [place] % (Auto) Eos % (Auto) Baso % (Auto) Lymph # (Auto) [place] # (Auto) Eos # (Auto) Baso # (Auto) Abs Immat Gran (auto) Absolute Neuts (auto) Absolute Nucleated RBC 0.000 Nucleated RBC % (auto) 0.0 Smear Tech's Comments ESR PT INR APTT O2 Saturation ABG pH at Pt Temp ABG pCO2 at Pt Temp ABG pO2 at Pt Temp ABG HCO3 ABG Base Excess (Actual) VBG pH VBG pCO2 VBG pO2 VBG HCO3 VBG O2 Saturation VBG Base Excess Sodium 143 Potassium 4.9 Chloride 112 H Carbon Dioxide 19 L Anion Gap 17 BUN 11 Creatinine 0.57 Estim Creat Clear Calc 125.7 Estimated GFR > 60 POC Glucose 126 H Random Glucose 110 Fasting Glucose Estimat Average Glucose Hgb A1c Fingerstick Hemoglobin A1c % Lactic Acid Lactic Acid F/U @ 2Hr Calcium 9.0 Phosphorus Magnesium Total Bilirubin Direct Bilirubin AST ALT Alkaline Phosphatase Ammonia Total Creatine Kinase Troponin I High Sens C-Reactive Protein Total Protein Albumin Triglycerides Vitamin B1 Vitamin B12 Folate Procalcitonin TSH Urine Color Urine Appearance Urine pH Ur Specific [place] Urine Protein Urine Glucose (UA) Urine Ketones Urine Blood Urine Nitrite Ur Leukocyte Esterase Urine RBC Urine WBC Ur Squamous Epith Cells Urine Bacteria Hyaline Casts Urine Creatinine CSF Tube Number CSF Volume CSF Appearance CSF Color CSF WBC CSF RBC CSF Neutrophils CSF Lymphocytes CSF Appearance (b) CSF Glucose CSF Total Protein CSF C.neoform/gat PCR CSF CMV DNA (PCR) CSF Enterovirus (PCR) CSF E. coli K1 (PCR) CSF H. influenzae (PCR) CSF HSV I (PCR) CSF HSV II (PCR) CSF HHV 6 (PCR) CSF L.monocytogenes PCR CSF N. meningitidis PCR CSF Parechovirus (PCR) CSF S. agalactiae (PCR) CSF S. pneumoniae (PCR) CSF VZV (PCR) Nasal Screen MRSA (PCR) Nasal S. aureus Screen Nasal MRSA/S.aureus Interp Stool Occult Blood Vancomycin Trough Random Vancomycin Urine Opiates Screen Urine Fentanyl Screen Ur Barbiturates Screen Phenytoin Ur Phencyclidine Scrn Ur Amphetamines Screen U Benzodiazepines Scrn Urine Cocaine Screen U Marijuana (THC) Screen Ethyl Alcohol Respiratory Panel Peter T.pallidum Ab (EIA) Adenovirus (Rapid PCR) B.pert (TEM-PCR) B.parapertussis DNA PCR C. pneumoniae DNA (PCR) C. difficile Tox B Gene Coronavirus OC43 (PCR) Coronavirus HKU1 (PCR) Coronavirus 229E (PCR) COVID-19 (KATELYNN) COVID-19 Clin Com Coronavirus NL63 (PCR) HIV 1&2 Ab/P24 Ag 4thGn Human Metapneumovir PCR Influenza A (RT-PCR) Influenza B (RT-PCR) M. pneumoniae (PCR) Parainfluenza 1 (PCR) Parainfluenza 2 (PCR) Parainfluenza 3 (PCR) Parainfluenza 4 (PCR) RSV (PCR) Entero/Rhino (PCR) SARS-CoV-2 RNA (RT-PCR) Blood Type Antibody Screen Crossmatch 03/14/22 03/15/22 03/15/22 05:58 05:49 05:49 WBC 9.5 RBC 4.36 L Hgb 12.9 L Hct 39.7 L MCV 91.1 MCH 29.6 MCHC 32.5 RDW 12.4 Plt Count 387 MPV 8.5 L Immature Gran % (Auto) Neut % (Auto) Lymph % (Auto) [place] % (Auto) Eos % (Auto) Baso % (Auto) Lymph # (Auto) [place] # (Auto) Eos # (Auto) Baso # (Auto) Abs Immat Gran (auto) Absolute Neuts (auto) Absolute Nucleated RBC 0.000 Nucleated RBC % (auto) 0.0 Smear Tech's Comments ESR PT INR APTT O2 Saturation ABG pH at Pt Temp ABG pCO2 at Pt Temp ABG pO2 at Pt Temp ABG HCO3 ABG Base Excess (Actual) VBG pH VBG pCO2 VBG pO2 VBG HCO3 VBG O2 Saturation VBG Base Excess Sodium 141 142 Potassium 4.0 4.0 Chloride 107 105 Carbon Dioxide 23 25 Anion Gap 15 16 BUN 11 14 Creatinine 0.65 0.69 Estim Creat Clear Calc 110.2 103.8 Estimated GFR > 60 > 60 POC Glucose Random Glucose 122 H 94 Fasting Glucose Estimat Average Glucose Hgb A1c Fingerstick Hemoglobin A1c % Lactic Acid Lactic Acid F/U @ 2Hr Calcium 9.4 9.3 Phosphorus Magnesium Total Bilirubin 0.4 Direct Bilirubin 0.3 AST 29 ALT 29 Alkaline Phosphatase 94 Ammonia Total Creatine Kinase Troponin I High Sens C-Reactive Protein Total Protein 7.2 Albumin 3.4 L Triglycerides Vitamin B1 Vitamin B12 Folate Procalcitonin TSH Urine Color Urine Appearance Urine pH Ur Specific [place] Urine Protein Urine Glucose (UA) Urine Ketones Urine Blood Urine Nitrite Ur Leukocyte Esterase Urine RBC Urine WBC Ur Squamous Epith Cells Urine Bacteria Hyaline Casts Urine Creatinine CSF Tube Number CSF Volume CSF Appearance CSF Color CSF WBC CSF RBC CSF Neutrophils CSF Lymphocytes CSF Appearance (b) CSF Glucose CSF Total Protein CSF C.neoform/gat PCR CSF CMV DNA (PCR) CSF Enterovirus (PCR) CSF E. coli K1 (PCR) CSF H. influenzae (PCR) CSF HSV I (PCR) CSF HSV II (PCR) CSF HHV 6 (PCR) CSF L.monocytogenes PCR CSF N. meningitidis PCR CSF Parechovirus (PCR) CSF S. agalactiae (PCR) CSF S. pneumoniae (PCR) CSF VZV (PCR) Nasal Screen MRSA (PCR) Nasal S. aureus Screen Nasal MRSA/S.aureus Interp Stool Occult Blood Vancomycin Trough Random Vancomycin Urine Opiates Screen Urine Fentanyl Screen Ur Barbiturates Screen Phenytoin Ur Phencyclidine Scrn Ur Amphetamines Screen U Benzodiazepines Scrn Urine Cocaine Screen U Marijuana (THC) Screen Ethyl Alcohol Respiratory Panel Peter T.pallidum Ab (EIA) Adenovirus (Rapid PCR) B.pert (TEM-PCR) B.parapertussis DNA PCR C. pneumoniae DNA (PCR) C. difficile Tox B Gene Coronavirus OC43 (PCR) Coronavirus HKU1 (PCR) Coronavirus 229E (PCR) COVID-19 (KATELYNN) COVID-19 Clin Com Coronavirus NL63 (PCR) HIV 1&2 Ab/P24 Ag 4thGn Human Metapneumovir PCR Influenza A (RT-PCR) Influenza B (RT-PCR) M. pneumoniae (PCR) Parainfluenza 1 (PCR) Parainfluenza 2 (PCR) Parainfluenza 3 (PCR) Parainfluenza 4 (PCR) RSV (PCR) Entero/Rhino (PCR) SARS-CoV-2 RNA (RT-PCR) Blood Type Antibody Screen Crossmatch 03/16/22 03/16/22 03/16/22 06:35 06:35 06:35 WBC RBC Hgb Hct MCV MCH MCHC RDW Plt Count MPV Immature Gran % (Auto) Neut % (Auto) Lymph % (Auto) [place] % (Auto) Eos % (Auto) Baso % (Auto) Lymph # (Auto) [place] # (Auto) Eos # (Auto) Baso # (Auto) Abs Immat Gran (auto) Absolute Neuts (auto) Absolute Nucleated RBC Nucleated RBC % (auto) Smear Tech's Comments ESR 67 H PT INR APTT O2 Saturation ABG pH at Pt Temp ABG pCO2 at Pt Temp ABG pO2 at Pt Temp ABG HCO3 ABG Base Excess (Actual) VBG pH VBG pCO2 VBG pO2 VBG HCO3 VBG O2 Saturation VBG Base Excess Sodium Potassium Chloride Carbon Dioxide Anion Gap BUN Creatinine Estim Creat Clear Calc Estimated GFR POC Glucose Random Glucose Fasting Glucose Estimat Average Glucose Hgb A1c Fingerstick Hemoglobin A1c % Lactic Acid Lactic Acid F/U @ 2Hr Calcium Phosphorus Magnesium Total Bilirubin Direct Bilirubin AST ALT Alkaline Phosphatase Ammonia Total Creatine Kinase Troponin I High Sens C-Reactive Protein 6.53 H Total Protein Albumin Triglycerides Vitamin B1 Vitamin B12 > 2000 H Folate 19.5 Procalcitonin TSH Urine Color Urine Appearance Urine pH Ur Specific [place] Urine Protein Urine Glucose (UA) Urine Ketones Urine Blood Urine Nitrite Ur Leukocyte Esterase Urine RBC Urine WBC Ur Squamous Epith Cells Urine Bacteria Hyaline Casts Urine Creatinine CSF Tube Number CSF Volume CSF Appearance CSF Color CSF WBC CSF RBC CSF Neutrophils CSF Lymphocytes CSF Appearance (b) CSF Glucose CSF Total Protein CSF C.neoform/gat PCR CSF CMV DNA (PCR) CSF Enterovirus (PCR) CSF E. coli K1 (PCR) CSF H. influenzae (PCR) CSF HSV I (PCR) CSF HSV II (PCR) CSF HHV 6 (PCR) CSF L.monocytogenes PCR CSF N. meningitidis PCR CSF Parechovirus (PCR) CSF S. agalactiae (PCR) CSF S. pneumoniae (PCR) CSF VZV (PCR) Nasal Screen MRSA (PCR) Nasal S. aureus Screen Nasal MRSA/S.aureus Interp Stool Occult Blood Vancomycin Trough Random Vancomycin Urine Opiates Screen Urine Fentanyl Screen Ur Barbiturates Screen Phenytoin Ur Phencyclidine Scrn Ur Amphetamines Screen U Benzodiazepines Scrn Urine Cocaine Screen U Marijuana (THC) Screen Ethyl Alcohol Respiratory Panel Peter T.pallidum Ab (EIA) Adenovirus (Rapid PCR) B.pert (TEM-PCR) B.parapertussis DNA PCR C. pneumoniae DNA (PCR) C. difficile Tox B Gene Coronavirus OC43 (PCR) Coronavirus HKU1 (PCR) Coronavirus 229E (PCR) COVID-19 (KATELYNN) COVID-19 Clin Com Coronavirus NL63 (PCR) HIV 1&2 Ab/P24 Ag 4thGn Human Metapneumovir PCR Influenza A (RT-PCR) Influenza B (RT-PCR) M. pneumoniae (PCR) Parainfluenza 1 (PCR) Parainfluenza 2 (PCR) Parainfluenza 3 (PCR) Parainfluenza 4 (PCR) RSV (PCR) Entero/Rhino (PCR) SARS-CoV-2 RNA (RT-PCR) Blood Type Antibody Screen Crossmatch 03/18/22 03/18/22 03/18/22 05:55 05:55 05:55 WBC 12.7 H RBC 4.64 Hgb 13.4 L Hct 42.5 MCV 91.6 MCH 28.9 MCHC 31.5 RDW 12.5 Plt Count 414 H MPV 8.4 L Immature Gran % (Auto) Neut % (Auto) Lymph % (Auto) [place] % (Auto) Eos % (Auto) Baso % (Auto) Lymph # (Auto) [place] # (Auto) Eos # (Auto) Baso # (Auto) Abs Immat Gran (auto) Absolute Neuts (auto) Absolute Nucleated RBC 0.000 Nucleated RBC % (auto) 0.0 Smear Tech's Comments ESR PT INR APTT O2 Saturation ABG pH at Pt Temp ABG pCO2 at Pt Temp ABG pO2 at Pt Temp ABG HCO3 ABG Base Excess (Actual) VBG pH VBG pCO2 VBG pO2 VBG HCO3 VBG O2 Saturation VBG Base Excess Sodium 139 Potassium 4.4 Chloride 104 Carbon Dioxide 27 Anion Gap 12 BUN 17 H Creatinine 0.71 Estim Creat Clear Calc 100.9 Estimated GFR > 60 POC Glucose Random Glucose 114 Fasting Glucose Estimat Average Glucose Hgb A1c Fingerstick Hemoglobin A1c % Lactic Acid Lactic Acid F/U @ 2Hr Calcium 9.4 Phosphorus Magnesium 1.9 Total Bilirubin 0.5 Direct Bilirubin 0.4 AST 29 ALT 38 Alkaline Phosphatase 110 Ammonia Total Creatine Kinase Troponin I High Sens C-Reactive Protein Total Protein 7.8 Albumin 3.6 Triglycerides Vitamin B1 Vitamin B12 Folate Procalcitonin TSH Urine Color Urine Appearance Urine pH Ur Specific [place] Urine Protein Urine Glucose (UA) Urine Ketones Urine Blood Urine Nitrite Ur Leukocyte Esterase Urine RBC Urine WBC Ur Squamous Epith Cells Urine Bacteria Hyaline Casts Urine Creatinine CSF Tube Number CSF Volume CSF Appearance CSF Color CSF WBC CSF RBC CSF Neutrophils CSF Lymphocytes CSF Appearance (b) CSF Glucose CSF Total Protein CSF C.neoform/gat PCR CSF CMV DNA (PCR) CSF Enterovirus (PCR) CSF E. coli K1 (PCR) CSF H. influenzae (PCR) CSF HSV I (PCR) CSF HSV II (PCR) CSF HHV 6 (PCR) CSF L.monocytogenes PCR CSF N. meningitidis PCR CSF Parechovirus (PCR) CSF S. agalactiae (PCR) CSF S. pneumoniae (PCR) CSF VZV (PCR) Nasal Screen MRSA (PCR) Nasal S. aureus Screen Nasal MRSA/S.aureus Interp Stool Occult Blood Vancomycin Trough Random Vancomycin Urine Opiates Screen Urine Fentanyl Screen Ur Barbiturates Screen Phenytoin Ur Phencyclidine Scrn Ur Amphetamines Screen U Benzodiazepines Scrn Urine Cocaine Screen U Marijuana (THC) Screen Ethyl Alcohol Respiratory Panel Peter T.pallidum Ab (EIA) Adenovirus (Rapid PCR) B.pert (TEM-PCR) B.parapertussis DNA PCR C. pneumoniae DNA (PCR) C. difficile Tox B Gene Coronavirus OC43 (PCR) Coronavirus HKU1 (PCR) Coronavirus 229E (PCR) COVID-19 (KATELYNN) COVID-19 Clin Com Coronavirus NL63 (PCR) HIV 1&2 Ab/P24 Ag 4thGn Human Metapneumovir PCR Influenza A (RT-PCR) Influenza B (RT-PCR) M. pneumoniae (PCR) Parainfluenza 1 (PCR) Parainfluenza 2 (PCR) Parainfluenza 3 (PCR) Parainfluenza 4 (PCR) RSV (PCR) Entero/Rhino (PCR) SARS-CoV-2 RNA (RT-PCR) Blood Type Antibody Screen Crossmatch 03/18/22 03/19/22 03/20/22 06:24 06:41 05:57 WBC 12.8 H 11.8 H RBC 4.47 L 4.59 L Hgb 13.2 L 13.8 L Hct 40.8 L 41.2 L MCV 91.3 89.8 MCH 29.5 30.1 MCHC 32.4 33.5 RDW 12.5 12.5 Plt Count 410 H 395 MPV 8.4 L 9.1 L Immature Gran % (Auto) Neut % (Auto) Lymph % (Auto) [place] % (Auto) Eos % (Auto) Baso % (Auto) Lymph # (Auto) [place] # (Auto) Eos # (Auto) Baso # (Auto) Abs Immat Gran (auto) Absolute Neuts (auto) Absolute Nucleated RBC 0.000 0.000 Nucleated RBC % (auto) 0.0 0.0 Smear Tech's Comments ESR PT INR APTT O2 Saturation ABG pH at Pt Temp ABG pCO2 at Pt Temp ABG pO2 at Pt Temp ABG HCO3 ABG Base Excess (Actual) VBG pH VBG pCO2 VBG pO2 VBG HCO3 VBG O2 Saturation VBG Base Excess Sodium Potassium Chloride Carbon Dioxide Anion Gap BUN Creatinine Estim Creat Clear Calc Estimated GFR POC Glucose Random Glucose Fasting Glucose Estimat Average Glucose Hgb A1c Fingerstick Hemoglobin A1c % Lactic Acid Lactic Acid F/U @ 2Hr Calcium Phosphorus Magnesium Total Bilirubin Direct Bilirubin AST ALT Alkaline Phosphatase Ammonia 29 Total Creatine Kinase Troponin I High Sens C-Reactive Protein Total Protein Albumin Triglycerides Vitamin B1 Vitamin B12 Folate Procalcitonin TSH Urine Color Urine Appearance Urine pH Ur Specific [place] Urine Protein Urine Glucose (UA) Urine Ketones Urine Blood Urine Nitrite Ur Leukocyte Esterase Urine RBC Urine WBC Ur Squamous Epith Cells Urine Bacteria Hyaline Casts Urine Creatinine CSF Tube Number CSF Volume CSF Appearance CSF Color CSF WBC CSF RBC CSF Neutrophils CSF Lymphocytes CSF Appearance (b) CSF Glucose CSF Total Protein CSF C.neoform/gat PCR CSF CMV DNA (PCR) CSF Enterovirus (PCR) CSF E. coli K1 (PCR) CSF H. influenzae (PCR) CSF HSV I (PCR) CSF HSV II (PCR) CSF HHV 6 (PCR) CSF L.monocytogenes PCR CSF N. meningitidis PCR CSF Parechovirus (PCR) CSF S. agalactiae (PCR) CSF S. pneumoniae (PCR) CSF VZV (PCR) Nasal Screen MRSA (PCR) Nasal S. aureus Screen Nasal MRSA/S.aureus Interp Stool Occult Blood Vancomycin Trough Random Vancomycin Urine Opiates Screen Urine Fentanyl Screen Ur Barbiturates Screen Phenytoin Ur Phencyclidine Scrn Ur Amphetamines Screen U Benzodiazepines Scrn Urine Cocaine Screen U Marijuana (THC) Screen Ethyl Alcohol Respiratory Panel Peter T.pallidum Ab (EIA) Adenovirus (Rapid PCR) B.pert (TEM-PCR) B.parapertussis DNA PCR C. pneumoniae DNA (PCR) C. difficile Tox B Gene Coronavirus OC43 (PCR) Coronavirus HKU1 (PCR) Coronavirus 229E (PCR) COVID-19 (KATELYNN) COVID-19 Clin Com Coronavirus NL63 (PCR) HIV 1&2 Ab/P24 Ag 4thGn Human Metapneumovir PCR Influenza A (RT-PCR) Influenza B (RT-PCR) M. pneumoniae (PCR) Parainfluenza 1 (PCR) Parainfluenza 2 (PCR) Parainfluenza 3 (PCR) Parainfluenza 4 (PCR) RSV (PCR) Entero/Rhino (PCR) SARS-CoV-2 RNA (RT-PCR) Blood Type Antibody Screen Crossmatch 03/20/22 03/20/22 03/20/22 05:57 05:57 08:39 WBC RBC Hgb Hct MCV MCH MCHC RDW Plt Count MPV Immature Gran % (Auto) Neut % (Auto) Lymph % (Auto) [place] % (Auto) Eos % (Auto) Baso % (Auto) Lymph # (Auto) [place] # (Auto) Eos # (Auto) Baso # (Auto) Abs Immat Gran (auto) Absolute Neuts (auto) Absolute Nucleated RBC Nucleated RBC % (auto) Smear Tech's Comments ESR PT 15.8 H INR 1.4 H APTT O2 Saturation ABG pH at Pt Temp ABG pCO2 at Pt Temp ABG pO2 at Pt Temp ABG HCO3 ABG Base Excess (Actual) VBG pH VBG pCO2 VBG pO2 VBG HCO3 VBG O2 Saturation VBG Base Excess Sodium 139 Potassium 4.7 Chloride 104 Carbon Dioxide 21 L Anion Gap 19 BUN 19 H Creatinine 0.70 Estim Creat Clear Calc 102.4 Estimated GFR > 60 POC Glucose Random Glucose 87 Fasting Glucose Estimat Average Glucose Hgb A1c Fingerstick Hemoglobin A1c % Lactic Acid Lactic Acid F/U @ 2Hr Calcium 9.9 Phosphorus Magnesium Total Bilirubin Direct Bilirubin AST ALT Alkaline Phosphatase Ammonia Total Creatine Kinase Troponin I High Sens C-Reactive Protein Total Protein Albumin Triglycerides Vitamin B1 Vitamin B12 Folate Procalcitonin TSH Cancelled 2.29 Urine Color Urine Appearance Urine pH Ur Specific [place] Urine Protein Urine Glucose (UA) Urine Ketones Urine Blood Urine Nitrite Ur Leukocyte Esterase Urine RBC Urine WBC Ur Squamous Epith Cells Urine Bacteria Hyaline Casts Urine Creatinine CSF Tube Number CSF Volume CSF Appearance CSF Color CSF WBC CSF RBC CSF Neutrophils CSF Lymphocytes CSF Appearance (b) CSF Glucose CSF Total Protein CSF C.neoform/gat PCR CSF CMV DNA (PCR) CSF Enterovirus (PCR) CSF E. coli K1 (PCR) CSF H. influenzae (PCR) CSF HSV I (PCR) CSF HSV II (PCR) CSF HHV 6 (PCR) CSF L.monocytogenes PCR CSF N. meningitidis PCR CSF Parechovirus (PCR) CSF S. agalactiae (PCR) CSF S. pneumoniae (PCR) CSF VZV (PCR) Nasal Screen MRSA (PCR) Nasal S. aureus Screen Nasal MRSA/S.aureus Interp Stool Occult Blood Vancomycin Trough Random Vancomycin Urine Opiates Screen Urine Fentanyl Screen Ur Barbiturates Screen Phenytoin Ur Phencyclidine Scrn Ur Amphetamines Screen U Benzodiazepines Scrn Urine Cocaine Screen U Marijuana (THC) Screen Ethyl Alcohol Respiratory Panel Peter T.pallidum Ab (EIA) Adenovirus (Rapid PCR) B.pert (TEM-PCR) B.parapertussis DNA PCR C. pneumoniae DNA (PCR) C. difficile Tox B Gene Coronavirus OC43 (PCR) Coronavirus HKU1 (PCR) Coronavirus 229E (PCR) COVID-19 (KATELYNN) COVID-19 Clin Com Coronavirus NL63 (PCR) HIV 1&2 Ab/P24 Ag 4thGn Human Metapneumovir PCR Influenza A (RT-PCR) Influenza B (RT-PCR) M. pneumoniae (PCR) Parainfluenza 1 (PCR) Parainfluenza 2 (PCR) Parainfluenza 3 (PCR) Parainfluenza 4 (PCR) RSV (PCR) Entero/Rhino (PCR) SARS-CoV-2 RNA (RT-PCR) Blood Type Antibody Screen Crossmatch 03/23/22 03/23/22 03/23/22 08:54 08:54 08:54 WBC 15.3 H RBC 5.02 Hgb 14.6 Hct 45.2 MCV 90.0 MCH 29.1 MCHC 32.3 RDW 12.6 Plt Count 443 H MPV 8.7 L Immature Gran % (Auto) Neut % (Auto) Lymph % (Auto) [place] % (Auto) Eos % (Auto) Baso % (Auto) Lymph # (Auto) [place] # (Auto) Eos # (Auto) Baso # (Auto) Abs Immat Gran (auto) Absolute Neuts (auto) Absolute Nucleated RBC 0.000 Nucleated RBC % (auto) 0.0 Smear Tech's Comments ESR PT INR APTT O2 Saturation ABG pH at Pt Temp ABG pCO2 at Pt Temp ABG pO2 at Pt Temp ABG HCO3 ABG Base Excess (Actual) VBG pH VBG pCO2 VBG pO2 VBG HCO3 VBG O2 Saturation VBG Base Excess Sodium Potassium Chloride Carbon Dioxide Anion Gap BUN Creatinine Estim Creat Clear Calc Estimated GFR POC Glucose Random Glucose Fasting Glucose Estimat Average Glucose Hgb A1c Fingerstick Hemoglobin A1c % Lactic Acid Lactic Acid F/U @ 2Hr Calcium Phosphorus Magnesium Total Bilirubin Direct Bilirubin AST ALT Alkaline Phosphatase Ammonia 35 Total Creatine Kinase Troponin I High Sens C-Reactive Protein Total Protein Albumin Triglycerides Vitamin B1 28 Vitamin B12 Folate Procalcitonin TSH Urine Color Urine Appearance Urine pH Ur Specific [place] Urine Protein Urine Glucose (UA) Urine Ketones Urine Blood Urine Nitrite Ur Leukocyte Esterase Urine RBC Urine WBC Ur Squamous Epith Cells Urine Bacteria Hyaline Casts Urine Creatinine CSF Tube Number CSF Volume CSF Appearance CSF Color CSF WBC CSF RBC CSF Neutrophils CSF Lymphocytes CSF Appearance (b) CSF Glucose CSF Total Protein CSF C.neoform/gat PCR CSF CMV DNA (PCR) CSF Enterovirus (PCR) CSF E. coli K1 (PCR) CSF H. influenzae (PCR) CSF HSV I (PCR) CSF HSV II (PCR) CSF HHV 6 (PCR) CSF L.monocytogenes PCR CSF N. meningitidis PCR CSF Parechovirus (PCR) CSF S. agalactiae (PCR) CSF S. pneumoniae (PCR) CSF VZV (PCR) Nasal Screen MRSA (PCR) Nasal S. aureus Screen Nasal MRSA/S.aureus Interp Stool Occult Blood Vancomycin Trough Random Vancomycin Urine Opiates Screen Urine Fentanyl Screen Ur Barbiturates Screen Phenytoin Ur Phencyclidine Scrn Ur Amphetamines Screen U Benzodiazepines Scrn Urine Cocaine Screen U Marijuana (THC) Screen Ethyl Alcohol Respiratory Panel Peter T.pallidum Ab (EIA) Adenovirus (Rapid PCR) B.pert (TEM-PCR) B.parapertussis DNA PCR C. pneumoniae DNA (PCR) C. difficile Tox B Gene Coronavirus OC43 (PCR) Coronavirus HKU1 (PCR) Coronavirus 229E (PCR) COVID-19 (KATELYNN) COVID-19 Clin Com Coronavirus NL63 (PCR) HIV 1&2 Ab/P24 Ag 4thGn Human Metapneumovir PCR Influenza A (RT-PCR) Influenza B (RT-PCR) M. pneumoniae (PCR) Parainfluenza 1 (PCR) Parainfluenza 2 (PCR) Parainfluenza 3 (PCR) Parainfluenza 4 (PCR) RSV (PCR) Entero/Rhino (PCR) SARS-CoV-2 RNA (RT-PCR) Blood Type Antibody Screen Crossmatch 03/23/22 03/23/22 03/23/22 08:54 08:54 08:54 WBC RBC Hgb Hct MCV MCH MCHC RDW Plt Count MPV Immature Gran % (Auto) Neut % (Auto) Lymph % (Auto) [place] % (Auto) Eos % (Auto) Baso % (Auto) Lymph # (Auto) [place] # (Auto) Eos # (Auto) Baso # (Auto) Abs Immat Gran (auto) Absolute Neuts (auto) Absolute Nucleated RBC Nucleated RBC % (auto) Smear Tech's Comments ESR PT INR APTT O2 Saturation ABG pH at Pt Temp ABG pCO2 at Pt Temp ABG pO2 at Pt Temp ABG HCO3 ABG Base Excess (Actual) VBG pH VBG pCO2 VBG pO2 VBG HCO3 VBG O2 Saturation VBG Base Excess Sodium 143 Potassium 4.9 Chloride 108 Carbon Dioxide 24 Anion Gap 16 BUN 32 H Creatinine 0.85 Estim Creat Clear Calc 84.3 Estimated GFR > 60 POC Glucose Random Glucose 111 Fasting Glucose Estimat Average Glucose Hgb A1c Fingerstick Hemoglobin A1c % Lactic Acid Lactic Acid F/U @ 2Hr Calcium 10.4 H Phosphorus Magnesium Total Bilirubin 0.7 Direct Bilirubin AST 34 ALT 52 H Alkaline Phosphatase 120 H Ammonia Total Creatine Kinase Troponin I High Sens C-Reactive Protein Total Protein 8.4 H Albumin 3.8 Triglycerides Vitamin B1 Vitamin B12 Folate Procalcitonin TSH Urine Color Urine Appearance Urine pH Ur Specific [place] Urine Protein Urine Glucose (UA) Urine Ketones Urine Blood Urine Nitrite Ur Leukocyte Esterase Urine RBC Urine WBC Ur Squamous Epith Cells Urine Bacteria Hyaline Casts Urine Creatinine CSF Tube Number CSF Volume CSF Appearance CSF Color CSF WBC CSF RBC CSF Neutrophils CSF Lymphocytes CSF Appearance (b) CSF Glucose CSF Total Protein CSF C.neoform/gat PCR CSF CMV DNA (PCR) CSF Enterovirus (PCR) CSF E. coli K1 (PCR) CSF H. influenzae (PCR) CSF HSV I (PCR) CSF HSV II (PCR) CSF HHV 6 (PCR) CSF L.monocytogenes PCR CSF N. meningitidis PCR CSF Parechovirus (PCR) CSF S. agalactiae (PCR) CSF S. pneumoniae (PCR) CSF VZV (PCR) Nasal Screen MRSA (PCR) Nasal S. aureus Screen Nasal MRSA/S.aureus Interp Stool Occult Blood Vancomycin Trough Random Vancomycin Urine Opiates Screen Urine Fentanyl Screen Ur Barbiturates Screen Phenytoin Ur Phencyclidine Scrn Ur Amphetamines Screen U Benzodiazepines Scrn Urine Cocaine Screen U Marijuana (THC) Screen Ethyl Alcohol Respiratory Panel Peter T.pallidum Ab (EIA) Nonreactive Adenovirus (Rapid PCR) B.pert (TEM-PCR) B.parapertussis DNA PCR C. pneumoniae DNA (PCR) C. difficile Tox B Gene Coronavirus OC43 (PCR) Coronavirus HKU1 (PCR) Coronavirus 229E (PCR) COVID-19 (KATELYNN) COVID-19 Clin Com Coronavirus NL63 (PCR) HIV 1&2 Ab/P24 Ag 4thGn Nonreactive Human Metapneumovir PCR Influenza A (RT-PCR) Influenza B (RT-PCR) M. pneumoniae (PCR) Parainfluenza 1 (PCR) Parainfluenza 2 (PCR) Parainfluenza 3 (PCR) Parainfluenza 4 (PCR) RSV (PCR) Entero/Rhino (PCR) SARS-CoV-2 RNA (RT-PCR) Blood Type Antibody Screen Crossmatch 03/23/22 03/23/22 03/23/22 13:14 13:14 14:30 WBC RBC Hgb Hct MCV MCH MCHC RDW Plt Count MPV Immature Gran % (Auto) Neut % (Auto) Lymph % (Auto) [place] % (Auto) Eos % (Auto) Baso % (Auto) Lymph # (Auto) [place] # (Auto) Eos # (Auto) Baso # (Auto) Abs Immat Gran (auto) Absolute Neuts (auto) Absolute Nucleated RBC Nucleated RBC % (auto) Smear Tech's Comments ESR PT 15.1 H INR 1.3 H APTT Cancelled 33.2 D O2 Saturation ABG pH at Pt Temp ABG pCO2 at Pt Temp ABG pO2 at Pt Temp ABG HCO3 ABG Base Excess (Actual) VBG pH VBG pCO2 VBG pO2 VBG HCO3 VBG O2 Saturation VBG Base Excess Sodium Potassium Chloride Carbon Dioxide Anion Gap BUN Creatinine Estim Creat Clear Calc Estimated GFR POC Glucose Random Glucose Fasting Glucose Estimat Average Glucose Hgb A1c Fingerstick Hemoglobin A1c % Lactic Acid Lactic Acid F/U @ 2Hr Calcium Phosphorus Magnesium Total Bilirubin Direct Bilirubin AST ALT Alkaline Phosphatase Ammonia Total Creatine Kinase Troponin I High Sens C-Reactive Protein Total Protein Albumin Triglycerides Vitamin B1 Vitamin B12 Folate Procalcitonin TSH Urine Color Urine Appearance Urine pH Ur Specific [place] Urine Protein Urine Glucose (UA) Urine Ketones Urine Blood Urine Nitrite Ur Leukocyte Esterase Urine RBC Urine WBC Ur Squamous Epith Cells Urine Bacteria Hyaline Casts Urine Creatinine CSF Tube Number CSF Volume CSF Appearance CSF Color CSF WBC CSF RBC CSF Neutrophils CSF Lymphocytes CSF Appearance (b) CSF Glucose CSF Total Protein CSF C.neoform/gat PCR Not Detected CSF CMV DNA (PCR) Not Detected CSF Enterovirus (PCR) Not Detected CSF E. coli K1 (PCR) Not Detected CSF H. influenzae (PCR) Not Detected CSF HSV I (PCR) Not Detected CSF HSV II (PCR) Not Detected CSF HHV 6 (PCR) Not Detected CSF L.monocytogenes PCR Not Detected CSF N. meningitidis PCR Not Detected CSF Parechovirus (PCR) Not Detected CSF S. agalactiae (PCR) Not Detected CSF S. pneumoniae (PCR) Not Detected CSF VZV (PCR) Not Detected Nasal Screen MRSA (PCR) Nasal S. aureus Screen Nasal MRSA/S.aureus Interp Stool Occult Blood Vancomycin Trough Random Vancomycin Urine Opiates Screen Urine Fentanyl Screen Ur Barbiturates Screen Phenytoin Ur Phencyclidine Scrn Ur Amphetamines Screen U Benzodiazepines Scrn Urine Cocaine Screen U Marijuana (THC) Screen Ethyl Alcohol Respiratory Panel Peter T.pallidum Ab (EIA) Adenovirus (Rapid PCR) B.pert (TEM-PCR) B.parapertussis DNA PCR C. pneumoniae DNA (PCR) C. difficile Tox B Gene Coronavirus OC43 (PCR) Coronavirus HKU1 (PCR) Coronavirus 229E (PCR) COVID-19 (KATELYNN) COVID-19 Clin Com Coronavirus NL63 (PCR) HIV 1&2 Ab/P24 Ag 4thGn Human Metapneumovir PCR Influenza A (RT-PCR) Influenza B (RT-PCR) M. pneumoniae (PCR) Parainfluenza 1 (PCR) Parainfluenza 2 (PCR) Parainfluenza 3 (PCR) Parainfluenza 4 (PCR) RSV (PCR) Entero/Rhino (PCR) SARS-CoV-2 RNA (RT-PCR) Blood Type Antibody Screen Crossmatch 03/23/22 03/23/22 03/25/22 14:30 14:30 05:57 WBC 17.7 H RBC 4.77 Hgb 13.9 L Hct 44.2 MCV 92.7 MCH 29.1 MCHC 31.4 RDW 12.9 Plt Count 386 MPV 8.9 L Immature Gran % (Auto) Neut % (Auto) Lymph % (Auto) [place] % (Auto) Eos % (Auto) Baso % (Auto) Lymph # (Auto) [place] # (Auto) Eos # (Auto) Baso # (Auto) Abs Immat Gran (auto) Absolute Neuts (auto) Absolute Nucleated RBC 0.000 Nucleated RBC % (auto) 0.0 Smear Tech's Comments ESR PT INR APTT O2 Saturation ABG pH at Pt Temp ABG pCO2 at Pt Temp ABG pO2 at Pt Temp ABG HCO3 ABG Base Excess (Actual) VBG pH VBG pCO2 VBG pO2 VBG HCO3 VBG O2 Saturation VBG Base Excess Sodium Potassium Chloride Carbon Dioxide Anion Gap BUN Creatinine Estim Creat Clear Calc Estimated GFR POC Glucose Random Glucose Fasting Glucose Estimat Average Glucose Hgb A1c Fingerstick Hemoglobin A1c % Lactic Acid Lactic Acid F/U @ 2Hr Calcium Phosphorus Magnesium Total Bilirubin Direct Bilirubin AST ALT Alkaline Phosphatase Ammonia Total Creatine Kinase Troponin I High Sens C-Reactive Protein Total Protein Albumin Triglycerides Vitamin B1 Vitamin B12 Folate Procalcitonin TSH Urine Color Urine Appearance Urine pH Ur Specific [place] Urine Protein Urine Glucose (UA) Urine Ketones Urine Blood Urine Nitrite Ur Leukocyte Esterase Urine RBC Urine WBC Ur Squamous Epith Cells Urine Bacteria Hyaline Casts Urine Creatinine CSF Tube Number 1 4 CSF Volume 1.5 CSF Appearance BLOODY CSF Color RED CSF WBC 320 H* CSF RBC 00716 CSF Neutrophils 55 CSF Lymphocytes 44 CSF Appearance (b) Cloudy CSF Glucose 77 CSF Total Protein 155.8 H CSF C.neoform/gat PCR CSF CMV DNA (PCR) CSF Enterovirus (PCR) CSF E. coli K1 (PCR) CSF H. influenzae (PCR) CSF HSV I (PCR) CSF HSV II (PCR) CSF HHV 6 (PCR) CSF L.monocytogenes PCR CSF N. meningitidis PCR CSF Parechovirus (PCR) CSF S. agalactiae (PCR) CSF S. pneumoniae (PCR) CSF VZV (PCR) Nasal Screen MRSA (PCR) Nasal S. aureus Screen Nasal MRSA/S.aureus Interp Stool Occult Blood Vancomycin Trough Random Vancomycin Urine Opiates Screen Urine Fentanyl Screen Ur Barbiturates Screen Phenytoin Ur Phencyclidine Scrn Ur Amphetamines Screen U Benzodiazepines Scrn Urine Cocaine Screen U Marijuana (THC) Screen Ethyl Alcohol Respiratory Panel Peter T.pallidum Ab (EIA) Adenovirus (Rapid PCR) B.pert (TEM-PCR) B.parapertussis DNA PCR C. pneumoniae DNA (PCR) C. difficile Tox B Gene Coronavirus OC43 (PCR) Coronavirus HKU1 (PCR) Coronavirus 229E (PCR) COVID-19 (KATELYNN) COVID-19 Clin Com Coronavirus NL63 (PCR) HIV 1&2 Ab/P24 Ag 4thGn Human Metapneumovir PCR Influenza A (RT-PCR) Influenza B (RT-PCR) M. pneumoniae (PCR) Parainfluenza 1 (PCR) Parainfluenza 2 (PCR) Parainfluenza 3 (PCR) Parainfluenza 4 (PCR) RSV (PCR) Entero/Rhino (PCR) SARS-CoV-2 RNA (RT-PCR) Blood Type Antibody Screen Crossmatch 03/25/22 03/25/22 03/25/22 05:57 05:57 09:37 WBC RBC Hgb Hct MCV MCH MCHC RDW Plt Count MPV Immature Gran % (Auto) Neut % (Auto) Lymph % (Auto) [place] % (Auto) Eos % (Auto) Baso % (Auto) Lymph # (Auto) [place] # (Auto) Eos # (Auto) Baso # (Auto) Abs Immat Gran (auto) Absolute Neuts (auto) Absolute Nucleated RBC Nucleated RBC % (auto) Smear Tech's Comments ESR PT INR APTT O2 Saturation ABG pH at Pt Temp ABG pCO2 at Pt Temp ABG pO2 at Pt Temp ABG HCO3 ABG Base Excess (Actual) VBG pH VBG pCO2 VBG pO2 VBG HCO3 VBG O2 Saturation VBG Base Excess Sodium 147 H 146 H Potassium 4.7 Chloride 111 H Carbon Dioxide 22 Anion Gap 19 BUN 64 H Creatinine 2.26 H Estim Creat Clear Calc 31.7 Estimated GFR 29 POC Glucose Random Glucose 122 H Fasting Glucose Estimat Average Glucose Hgb A1c Fingerstick Hemoglobin A1c % Lactic Acid Lactic Acid F/U @ 2Hr Calcium 10.4 H Phosphorus Magnesium Total Bilirubin 0.8 Direct Bilirubin 0.5 AST 41 H D ALT 56 H Alkaline Phosphatase 115 Ammonia Total Creatine Kinase 397 H D Troponin I High Sens C-Reactive Protein 16.30 H Total Protein 8.4 H Albumin 3.8 Triglycerides Vitamin B1 Vitamin B12 Folate Procalcitonin 0.12 TSH Urine Color Urine Appearance Urine pH Ur Specific [place] Urine Protein Urine Glucose (UA) Urine Ketones Urine Blood Urine Nitrite Ur Leukocyte Esterase Urine RBC Urine WBC Ur Squamous Epith Cells Urine Bacteria Hyaline Casts Urine Creatinine CSF Tube Number CSF Volume CSF Appearance CSF Color CSF WBC CSF RBC CSF Neutrophils CSF Lymphocytes CSF Appearance (b) CSF Glucose CSF Total Protein CSF C.neoform/gat PCR CSF CMV DNA (PCR) CSF Enterovirus (PCR) CSF E. coli K1 (PCR) CSF H. influenzae (PCR) CSF HSV I (PCR) CSF HSV II (PCR) CSF HHV 6 (PCR) CSF L.monocytogenes PCR CSF N. meningitidis PCR CSF Parechovirus (PCR) CSF S. agalactiae (PCR) CSF S. pneumoniae (PCR) CSF VZV (PCR) Nasal Screen MRSA (PCR) Nasal S. aureus Screen Nasal MRSA/S.aureus Interp Stool Occult Blood Vancomycin Trough Random Vancomycin Urine Opiates Screen Urine Fentanyl Screen Ur Barbiturates Screen Phenytoin Ur Phencyclidine Scrn Ur Amphetamines Screen U Benzodiazepines Scrn Urine Cocaine Screen U Marijuana (THC) Screen Ethyl Alcohol Respiratory Panel Peter T.pallidum Ab (EIA) Adenovirus (Rapid PCR) B.pert (TEM-PCR) B.parapertussis DNA PCR C. pneumoniae DNA (PCR) C. difficile Tox B Gene Coronavirus OC43 (PCR) Coronavirus HKU1 (PCR) Coronavirus 229E (PCR) COVID-19 (KATELYNN) COVID-19 Clin Com Coronavirus NL63 (PCR) HIV 1&2 Ab/P24 Ag 4thGn Human Metapneumovir PCR Influenza A (RT-PCR) Influenza B (RT-PCR) M. pneumoniae (PCR) Parainfluenza 1 (PCR) Parainfluenza 2 (PCR) Parainfluenza 3 (PCR) Parainfluenza 4 (PCR) RSV (PCR) Entero/Rhino (PCR) SARS-CoV-2 RNA (RT-PCR) Blood Type Antibody Screen Crossmatch 03/25/22 03/26/22 03/26/22 13:57 03:03 06:24 WBC RBC Hgb Hct MCV MCH MCHC RDW Plt Count MPV Immature Gran % (Auto) Neut % (Auto) Lymph % (Auto) [place] % (Auto) Eos % (Auto) Baso % (Auto) Lymph # (Auto) [place] # (Auto) Eos # (Auto) Baso # (Auto) Abs Immat Gran (auto) Absolute Neuts (auto) Absolute Nucleated RBC Nucleated RBC % (auto) Smear Tech's Comments ESR PT INR APTT O2 Saturation ABG pH at Pt Temp ABG pCO2 at Pt Temp ABG pO2 at Pt Temp ABG HCO3 ABG Base Excess (Actual) VBG pH VBG pCO2 VBG pO2 VBG HCO3 VBG O2 Saturation VBG Base Excess Sodium 153 H Potassium 4.8 Chloride 120 H Carbon Dioxide 21 L Anion Gap 17 BUN 53 H Creatinine 1.13 Estim Creat Clear Calc 63.4 Estimated GFR > 60 POC Glucose Random Glucose 140 H Fasting Glucose Estimat Average Glucose Hgb A1c Fingerstick Hemoglobin A1c % Lactic Acid 1.4 Lactic Acid F/U @ 2Hr Calcium 10.0 Phosphorus Magnesium Total Bilirubin Direct Bilirubin AST ALT Alkaline Phosphatase Ammonia Total Creatine Kinase Troponin I High Sens C-Reactive Protein Total Protein Albumin Triglycerides Vitamin B1 Vitamin B12 Folate Procalcitonin TSH Urine Color Urine Appearance Urine pH Ur Specific [place] Urine Protein Urine Glucose (UA) Urine Ketones Urine Blood Urine Nitrite Ur Leukocyte Esterase Urine RBC Urine WBC Ur Squamous Epith Cells Urine Bacteria Hyaline Casts Urine Creatinine CSF Tube Number CSF Volume CSF Appearance CSF Color CSF WBC CSF RBC CSF Neutrophils CSF Lymphocytes CSF Appearance (b) CSF Glucose CSF Total Protein CSF C.neoform/gat PCR CSF CMV DNA (PCR) CSF Enterovirus (PCR) CSF E. coli K1 (PCR) CSF H. influenzae (PCR) CSF HSV I (PCR) CSF HSV II (PCR) CSF HHV 6 (PCR) CSF L.monocytogenes PCR CSF N. meningitidis PCR CSF Parechovirus (PCR) CSF S. agalactiae (PCR) CSF S. pneumoniae (PCR) CSF VZV (PCR) Nasal Screen MRSA (PCR) Nasal S. aureus Screen Nasal MRSA/S.aureus Interp Stool Occult Blood Vancomycin Trough Random Vancomycin Urine Opiates Screen Urine Fentanyl Screen Ur Barbiturates Screen Phenytoin Ur Phencyclidine Scrn Ur Amphetamines Screen U Benzodiazepines Scrn Urine Cocaine Screen U Marijuana (THC) Screen Ethyl Alcohol Respiratory Panel Peter See Note T.pallidum Ab (EIA) Adenovirus (Rapid PCR) Not Detected B.pert (TEM-PCR) Not Detected B.parapertussis DNA PCR Not Detected C. pneumoniae DNA (PCR) Not Detected C. difficile Tox B Gene Coronavirus OC43 (PCR) Not Detected Coronavirus HKU1 (PCR) Not Detected Coronavirus 229E (PCR) Not Detected COVID-19 (KATELYNN) COVID-19 Clin Com Coronavirus NL63 (PCR) Not Detected HIV 1&2 Ab/P24 Ag 4thGn Human Metapneumovir PCR Not Detected Influenza A (RT-PCR) Not Detected Influenza B (RT-PCR) Not Detected M. pneumoniae (PCR) Not Detected Parainfluenza 1 (PCR) Not Detected Parainfluenza 2 (PCR) Not Detected Parainfluenza 3 (PCR) Not Detected Parainfluenza 4 (PCR) Not Detected RSV (PCR) Not Detected Entero/Rhino (PCR) Not Detected SARS-CoV-2 RNA (RT-PCR) Not Detected Blood Type Antibody Screen Crossmatch 03/26/22 03/26/22 03/26/22 06:24 09:12 12:37 WBC 18.5 H RBC 5.06 Hgb 14.7 Hct 46.8 MCV 92.5 MCH 29.1 MCHC 31.4 RDW 13.1 Plt Count 337 MPV 9.1 L Immature Gran % (Auto) Neut % (Auto) Lymph % (Auto) [place] % (Auto) Eos % (Auto) Baso % (Auto) Lymph # (Auto) [place] # (Auto) Eos # (Auto) Baso # (Auto) Abs Immat Gran (auto) Absolute Neuts (auto) Absolute Nucleated RBC 0.000 Nucleated RBC % (auto) 0.0 Smear Tech's Comments ESR PT INR APTT O2 Saturation 91.0 ABG pH at Pt Temp 7.45 ABG pCO2 at Pt Temp 26 L ABG pO2 at Pt Temp 66 L ABG HCO3 18 L ABG Base Excess (Actual) -3.2 VBG pH VBG pCO2 VBG pO2 VBG HCO3 VBG O2 Saturation VBG Base Excess Sodium Potassium Chloride Carbon Dioxide Anion Gap BUN Creatinine Estim Creat Clear Calc Estimated GFR POC Glucose Random Glucose Fasting Glucose Estimat Average Glucose Hgb A1c Fingerstick Hemoglobin A1c % Lactic Acid Lactic Acid F/U @ 2Hr Calcium Phosphorus Magnesium Total Bilirubin Direct Bilirubin AST ALT Alkaline Phosphatase Ammonia Total Creatine Kinase Troponin I High Sens C-Reactive Protein Total Protein Albumin Triglycerides Vitamin B1 Vitamin B12 Folate Procalcitonin TSH Urine Color Urine Appearance Urine pH Ur Specific [place] Urine Protein Urine Glucose (UA) Urine Ketones Urine Blood Urine Nitrite Ur Leukocyte Esterase Urine RBC Urine WBC Ur Squamous Epith Cells Urine Bacteria Hyaline Casts Urine Creatinine CSF Tube Number CSF Volume CSF Appearance CSF Color CSF WBC CSF RBC CSF Neutrophils CSF Lymphocytes CSF Appearance (b) CSF Glucose CSF Total Protein CSF C.neoform/gat PCR CSF CMV DNA (PCR) CSF Enterovirus (PCR) CSF E. coli K1 (PCR) CSF H. influenzae (PCR) CSF HSV I (PCR) CSF HSV II (PCR) CSF HHV 6 (PCR) CSF L.monocytogenes PCR CSF N. meningitidis PCR CSF Parechovirus (PCR) CSF S. agalactiae (PCR) CSF S. pneumoniae (PCR) CSF VZV (PCR) Nasal Screen MRSA (PCR) Nasal S. aureus Screen Nasal MRSA/S.aureus Interp Stool Occult Blood Vancomycin Trough Random Vancomycin Urine Opiates Screen Urine Fentanyl Screen Ur Barbiturates Screen Phenytoin Ur Phencyclidine Scrn Ur Amphetamines Screen U Benzodiazepines Scrn Urine Cocaine Screen U Marijuana (THC) Screen Ethyl Alcohol Respiratory Panel Peter See Note T.pallidum Ab (EIA) Adenovirus (Rapid PCR) Not Detected B.pert (TEM-PCR) Not Detected B.parapertussis DNA PCR Not Detected C. pneumoniae DNA (PCR) Not Detected C. difficile Tox B Gene Coronavirus OC43 (PCR) Not Detected Coronavirus HKU1 (PCR) Not Detected Coronavirus 229E (PCR) Not Detected COVID-19 (KATELYNN) COVID-19 Clin Com Coronavirus NL63 (PCR) Not Detected HIV 1&2 Ab/P24 Ag 4thGn Human Metapneumovir PCR Not Detected Influenza A (RT-PCR) Not Detected Influenza B (RT-PCR) Not Detected M. pneumoniae (PCR) Not Detected Parainfluenza 1 (PCR) Not Detected Parainfluenza 2 (PCR) Not Detected Parainfluenza 3 (PCR) Not Detected Parainfluenza 4 (PCR) Not Detected RSV (PCR) Not Detected Entero/Rhino (PCR) Not Detected SARS-CoV-2 RNA (RT-PCR) Not Detected Blood Type Antibody Screen Crossmatch 03/26/22 03/26/22 03/26/22 14:34 14:34 16:59 WBC RBC Hgb Hct MCV MCH MCHC RDW Plt Count MPV Immature Gran % (Auto) Neut % (Auto) Lymph % (Auto) [place] % (Auto) Eos % (Auto) Baso % (Auto) Lymph # (Auto) [place] # (Auto) Eos # (Auto) Baso # (Auto) Abs Immat Gran (auto) Absolute Neuts (auto) Absolute Nucleated RBC Nucleated RBC % (auto) Smear Tech's Comments ESR PT INR APTT O2 Saturation ABG pH at Pt Temp ABG pCO2 at Pt Temp ABG pO2 at Pt Temp ABG HCO3 ABG Base Excess (Actual) VBG pH VBG pCO2 VBG pO2 VBG HCO3 VBG O2 Saturation VBG Base Excess Sodium 153 H Potassium 5.0 Chloride 122 H Carbon Dioxide 18 L Anion Gap 18 BUN 44 H Creatinine 1.09 Estim Creat Clear Calc 65.7 Estimated GFR > 60 POC Glucose Random Glucose 168 H Fasting Glucose Estimat Average Glucose Hgb A1c Fingerstick Hemoglobin A1c % Lactic Acid Lactic Acid F/U @ 2Hr Calcium 9.5 Phosphorus Magnesium Total Bilirubin Direct Bilirubin AST ALT Alkaline Phosphatase Ammonia Total Creatine Kinase Troponin I High Sens C-Reactive Protein Total Protein Albumin Triglycerides Vitamin B1 Vitamin B12 Folate Procalcitonin TSH Urine Color Dark Yellow Urine Appearance Turbid Urine pH 7.5 Ur Specific [place] 1.020 Urine Protein 100 (2+) H Urine Glucose (UA) Negative Urine Ketones Trace Urine Blood Large (3+) H Urine Nitrite Positive H Ur Leukocyte Esterase Large (3+) H Urine RBC >20 H Urine WBC >50 H Ur Squamous Epith Cells 6-10 Urine Bacteria 4+ Hyaline Casts 0-2 Urine Creatinine 97.26 CSF Tube Number CSF Volume CSF Appearance CSF Color CSF WBC CSF RBC CSF Neutrophils CSF Lymphocytes CSF Appearance (b) CSF Glucose CSF Total Protein CSF C.neoform/gat PCR CSF CMV DNA (PCR) CSF Enterovirus (PCR) CSF E. coli K1 (PCR) CSF H. influenzae (PCR) CSF HSV I (PCR) CSF HSV II (PCR) CSF HHV 6 (PCR) CSF L.monocytogenes PCR CSF N. meningitidis PCR CSF Parechovirus (PCR) CSF S. agalactiae (PCR) CSF S. pneumoniae (PCR) CSF VZV (PCR) Nasal Screen MRSA (PCR) Nasal S. aureus Screen Nasal MRSA/S.aureus Interp Stool Occult Blood Vancomycin Trough Random Vancomycin Urine Opiates Screen Urine Fentanyl Screen Ur Barbiturates Screen Phenytoin Ur Phencyclidine Scrn Ur Amphetamines Screen U Benzodiazepines Scrn Urine Cocaine Screen U Marijuana (THC) Screen Ethyl Alcohol Respiratory Panel Peter T.pallidum Ab (EIA) Adenovirus (Rapid PCR) B.pert (TEM-PCR) B.parapertussis DNA PCR C. pneumoniae DNA (PCR) C. difficile Tox B Gene Coronavirus OC43 (PCR) Coronavirus HKU1 (PCR) Coronavirus 229E (PCR) COVID-19 (KATELYNN) COVID-19 Clin Com Coronavirus NL63 (PCR) HIV 1&2 Ab/P24 Ag 4thGn Human Metapneumovir PCR Influenza A (RT-PCR) Influenza B (RT-PCR) M. pneumoniae (PCR) Parainfluenza 1 (PCR) Parainfluenza 2 (PCR) Parainfluenza 3 (PCR) Parainfluenza 4 (PCR) RSV (PCR) Entero/Rhino (PCR) SARS-CoV-2 RNA (RT-PCR) Blood Type Antibody Screen Crossmatch 03/27/22 03/27/22 03/27/22 06:54 06:54 12:30 WBC 20.9 H RBC 4.73 Hgb 13.7 L Hct 44.1 MCV 93.2 MCH 29.0 MCHC 31.1 RDW 13.2 Plt Count 272 MPV 9.4 Immature Gran % (Auto) Neut % (Auto) Lymph % (Auto) [place] % (Auto) Eos % (Auto) Baso % (Auto) Lymph # (Auto) [place] # (Auto) Eos # (Auto) Baso # (Auto) Abs Immat Gran (auto) Absolute Neuts (auto) Absolute Nucleated RBC 0.000 Nucleated RBC % (auto) 0.0 Smear Tech's Comments ESR PT INR APTT 30.1 O2 Saturation ABG pH at Pt Temp ABG pCO2 at Pt Temp ABG pO2 at Pt Temp ABG HCO3 ABG Base Excess (Actual) VBG pH VBG pCO2 VBG pO2 VBG HCO3 VBG O2 Saturation VBG Base Excess Sodium 150 H Potassium 3.7 D Chloride 118 H Carbon Dioxide 23 Anion Gap 13 BUN 33 H Creatinine 1.11 Estim Creat Clear Calc 64.5 Estimated GFR > 60 POC Glucose Random Glucose 152 H Fasting Glucose Estimat Average Glucose Hgb A1c Fingerstick Hemoglobin A1c % Lactic Acid Lactic Acid F/U @ 2Hr Calcium 9.4 Phosphorus Magnesium 2.4 Total Bilirubin Direct Bilirubin AST ALT Alkaline Phosphatase Ammonia Total Creatine Kinase Troponin I High Sens C-Reactive Protein Total Protein Albumin Triglycerides Vitamin B1 Vitamin B12 Folate Procalcitonin TSH Urine Color Urine Appearance Urine pH Ur Specific [place] Urine Protein Urine Glucose (UA) Urine Ketones Urine Blood Urine Nitrite Ur Leukocyte Esterase Urine RBC Urine WBC Ur Squamous Epith Cells Urine Bacteria Hyaline Casts Urine Creatinine CSF Tube Number CSF Volume CSF Appearance CSF Color CSF WBC CSF RBC CSF Neutrophils CSF Lymphocytes CSF Appearance (b) CSF Glucose CSF Total Protein CSF C.neoform/gat PCR CSF CMV DNA (PCR) CSF Enterovirus (PCR) CSF E. coli K1 (PCR) CSF H. influenzae (PCR) CSF HSV I (PCR) CSF HSV II (PCR) CSF HHV 6 (PCR) CSF L.monocytogenes PCR CSF N. meningitidis PCR CSF Parechovirus (PCR) CSF S. agalactiae (PCR) CSF S. pneumoniae (PCR) CSF VZV (PCR) Nasal Screen MRSA (PCR) Nasal S. aureus Screen Nasal MRSA/S.aureus Interp Stool Occult Blood Vancomycin Trough Random Vancomycin Urine Opiates Screen Urine Fentanyl Screen Ur Barbiturates Screen Phenytoin Ur Phencyclidine Scrn Ur Amphetamines Screen U Benzodiazepines Scrn Urine Cocaine Screen U Marijuana (THC) Screen Ethyl Alcohol Respiratory Panel Peter T.pallidum Ab (EIA) Adenovirus (Rapid PCR) B.pert (TEM-PCR) B.parapertussis DNA PCR C. pneumoniae DNA (PCR) C. difficile Tox B Gene Coronavirus OC43 (PCR) Coronavirus HKU1 (PCR) Coronavirus 229E (PCR) COVID-19 (KATELYNN) COVID-19 Clin Com Coronavirus NL63 (PCR) HIV 1&2 Ab/P24 Ag 4thGn Human Metapneumovir PCR Influenza A (RT-PCR) Influenza B (RT-PCR) M. pneumoniae (PCR) Parainfluenza 1 (PCR) Parainfluenza 2 (PCR) Parainfluenza 3 (PCR) Parainfluenza 4 (PCR) RSV (PCR) Entero/Rhino (PCR) SARS-CoV-2 RNA (RT-PCR) Blood Type Antibody Screen Crossmatch 03/28/22 03/28/22 03/29/22 08:39 10:40 06:33 WBC 19.2 H RBC 4.52 L Hgb 13.1 L Hct 42.6 MCV 94.2 MCH 29.0 MCHC 30.8 L RDW 13.4 Plt Count 211 MPV 10.6 Immature Gran % (Auto) Neut % (Auto) Lymph % (Auto) [place] % (Auto) Eos % (Auto) Baso % (Auto) Lymph # (Auto) [place] # (Auto) Eos # (Auto) Baso # (Auto) Abs Immat Gran (auto) Absolute Neuts (auto) Absolute Nucleated RBC 0.000 Nucleated RBC % (auto) 0.0 Smear Tech's Comments ESR PT INR APTT O2 Saturation ABG pH at Pt Temp ABG pCO2 at Pt Temp ABG pO2 at Pt Temp ABG HCO3 ABG Base Excess (Actual) VBG pH VBG pCO2 VBG pO2 VBG HCO3 VBG O2 Saturation VBG Base Excess Sodium 147 H Potassium 4.0 Chloride 118 H Carbon Dioxide 19 L Anion Gap 14 BUN 26 H Creatinine 0.86 Estim Creat Clear Calc 83.3 Estimated GFR > 60 POC Glucose Random Glucose 134 H Fasting Glucose Estimat Average Glucose Hgb A1c Fingerstick Hemoglobin A1c % Lactic Acid 1.1 Lactic Acid F/U @ 2Hr Calcium 8.3 L D Phosphorus Magnesium Total Bilirubin Direct Bilirubin AST ALT Alkaline Phosphatase Ammonia Total Creatine Kinase Troponin I High Sens C-Reactive Protein Total Protein Albumin Triglycerides Vitamin B1 Vitamin B12 Folate Procalcitonin TSH Urine Color Urine Appearance Urine pH Ur Specific [place] Urine Protein Urine Glucose (UA) Urine Ketones Urine Blood Urine Nitrite Ur Leukocyte Esterase Urine RBC Urine WBC Ur Squamous Epith Cells Urine Bacteria Hyaline Casts Urine Creatinine CSF Tube Number CSF Volume CSF Appearance CSF Color CSF WBC CSF RBC CSF Neutrophils CSF Lymphocytes CSF Appearance (b) CSF Glucose CSF Total Protein CSF C.neoform/gat PCR CSF CMV DNA (PCR) CSF Enterovirus (PCR) CSF E. coli K1 (PCR) CSF H. influenzae (PCR) CSF HSV I (PCR) CSF HSV II (PCR) CSF HHV 6 (PCR) CSF L.monocytogenes PCR CSF N. meningitidis PCR CSF Parechovirus (PCR) CSF S. agalactiae (PCR) CSF S. pneumoniae (PCR) CSF VZV (PCR) Nasal Screen MRSA (PCR) Nasal S. aureus Screen Nasal MRSA/S.aureus Interp Stool Occult Blood Vancomycin Trough Random Vancomycin Urine Opiates Screen Urine Fentanyl Screen Ur Barbiturates Screen Phenytoin Ur Phencyclidine Scrn Ur Amphetamines Screen U Benzodiazepines Scrn Urine Cocaine Screen U Marijuana (THC) Screen Ethyl Alcohol Respiratory Panel Peter T.pallidum Ab (EIA) Adenovirus (Rapid PCR) B.pert (TEM-PCR) B.parapertussis DNA PCR C. pneumoniae DNA (PCR) C. difficile Tox B Gene Coronavirus OC43 (PCR) Coronavirus HKU1 (PCR) Coronavirus 229E (PCR) COVID-19 (KATELYNN) COVID-19 Clin Com Coronavirus NL63 (PCR) HIV 1&2 Ab/P24 Ag 4thGn Human Metapneumovir PCR Influenza A (RT-PCR) Influenza B (RT-PCR) M. pneumoniae (PCR) Parainfluenza 1 (PCR) Parainfluenza 2 (PCR) Parainfluenza 3 (PCR) Parainfluenza 4 (PCR) RSV (PCR) Entero/Rhino (PCR) SARS-CoV-2 RNA (RT-PCR) Blood Type Antibody Screen Crossmatch 03/29/22 03/29/22 03/30/22 06:33 06:33 10:33 WBC 19.2 H 18.4 H RBC 4.29 L 4.04 L Hgb 12.5 L 11.9 L Hct 39.5 L 37.9 L MCV 92.1 93.8 MCH 29.1 29.5 MCHC 31.6 31.4 RDW 13.5 13.6 Plt Count 239 232 MPV 10.5 10.5 Immature Gran % (Auto) Neut % (Auto) Lymph % (Auto) [place] % (Auto) Eos % (Auto) Baso % (Auto) Lymph # (Auto) [place] # (Auto) Eos # (Auto) Baso # (Auto) Abs Immat Gran (auto) Absolute Neuts (auto) Absolute Nucleated RBC 0.000 0.000 Nucleated RBC % (auto) 0.0 0.0 Smear Tech's Comments ESR PT INR APTT O2 Saturation ABG pH at Pt Temp ABG pCO2 at Pt Temp ABG pO2 at Pt Temp ABG HCO3 ABG Base Excess (Actual) VBG pH VBG pCO2 VBG pO2 VBG HCO3 VBG O2 Saturation VBG Base Excess Sodium 150 H Potassium 4.2 Chloride 120 H Carbon Dioxide 18 L Anion Gap 16 BUN 30 H Creatinine 0.77 Estim Creat Clear Calc 93.0 Estimated GFR > 60 POC Glucose Random Glucose 90 Fasting Glucose Estimat Average Glucose Hgb A1c Fingerstick Hemoglobin A1c % Lactic Acid Lactic Acid F/U @ 2Hr Calcium 8.5 Phosphorus Magnesium Total Bilirubin Direct Bilirubin AST ALT Alkaline Phosphatase Ammonia Total Creatine Kinase Troponin I High Sens C-Reactive Protein Total Protein Albumin Triglycerides Vitamin B1 Vitamin B12 Folate Procalcitonin TSH Urine Color Urine Appearance Urine pH Ur Specific [place] Urine Protein Urine Glucose (UA) Urine Ketones Urine Blood Urine Nitrite Ur Leukocyte Esterase Urine RBC Urine WBC Ur Squamous Epith Cells Urine Bacteria Hyaline Casts Urine Creatinine CSF Tube Number CSF Volume CSF Appearance CSF Color CSF WBC CSF RBC CSF Neutrophils CSF Lymphocytes CSF Appearance (b) CSF Glucose CSF Total Protein CSF C.neoform/gat PCR CSF CMV DNA (PCR) CSF Enterovirus (PCR) CSF E. coli K1 (PCR) CSF H. influenzae (PCR) CSF HSV I (PCR) CSF HSV II (PCR) CSF HHV 6 (PCR) CSF L.monocytogenes PCR CSF N. meningitidis PCR CSF Parechovirus (PCR) CSF S. agalactiae (PCR) CSF S. pneumoniae (PCR) CSF VZV (PCR) Nasal Screen MRSA (PCR) Nasal S. aureus Screen Nasal MRSA/S.aureus Interp Stool Occult Blood Vancomycin Trough Random Vancomycin Urine Opiates Screen Urine Fentanyl Screen Ur Barbiturates Screen Phenytoin Ur Phencyclidine Scrn Ur Amphetamines Screen U Benzodiazepines Scrn Urine Cocaine Screen U Marijuana (THC) Screen Ethyl Alcohol Respiratory Panel Peter T.pallidum Ab (EIA) Adenovirus (Rapid PCR) B.pert (TEM-PCR) B.parapertussis DNA PCR C. pneumoniae DNA (PCR) C. difficile Tox B Gene Coronavirus OC43 (PCR) Coronavirus HKU1 (PCR) Coronavirus 229E (PCR) COVID-19 (KATELYNN) COVID-19 Clin Com Coronavirus NL63 (PCR) HIV 1&2 Ab/P24 Ag 4thGn Human Metapneumovir PCR Influenza A (RT-PCR) Influenza B (RT-PCR) M. pneumoniae (PCR) Parainfluenza 1 (PCR) Parainfluenza 2 (PCR) Parainfluenza 3 (PCR) Parainfluenza 4 (PCR) RSV (PCR) Entero/Rhino (PCR) SARS-CoV-2 RNA (RT-PCR) Blood Type Antibody Screen Crossmatch 03/30/22 03/30/22 03/30/22 10:33 10:33 12:50 WBC RBC Hgb Hct MCV MCH MCHC RDW Plt Count MPV Immature Gran % (Auto) Neut % (Auto) Lymph % (Auto) [place] % (Auto) Eos % (Auto) Baso % (Auto) Lymph # (Auto) [place] # (Auto) Eos # (Auto) Baso # (Auto) Abs Immat Gran (auto) Absolute Neuts (auto) Absolute Nucleated RBC Nucleated RBC % (auto) Smear Tech's Comments ESR PT INR APTT O2 Saturation ABG pH at Pt Temp ABG pCO2 at Pt Temp ABG pO2 at Pt Temp ABG HCO3 ABG Base Excess (Actual) VBG pH VBG pCO2 VBG pO2 VBG HCO3 VBG O2 Saturation VBG Base Excess Sodium Cancelled 150 H Potassium Cancelled 3.8 Chloride Cancelled 117 H Carbon Dioxide Cancelled 21 L Anion Gap Cancelled 16 BUN Cancelled 16 Creatinine Cancelled 0.71 Estim Creat Clear Calc Cancelled 100.9 Estimated GFR Cancelled > 60 POC Glucose Random Glucose Cancelled 94 Fasting Glucose Estimat Average Glucose Hgb A1c Fingerstick Hemoglobin A1c % Lactic Acid Lactic Acid F/U @ 2Hr Calcium Cancelled 8.1 L Phosphorus Magnesium Total Bilirubin Direct Bilirubin AST ALT Alkaline Phosphatase Ammonia Total Creatine Kinase Troponin I High Sens C-Reactive Protein Total Protein Albumin Triglycerides Vitamin B1 Vitamin B12 Folate Procalcitonin TSH Urine Color Urine Appearance Urine pH Ur Specific [place] Urine Protein Urine Glucose (UA) Urine Ketones Urine Blood Urine Nitrite Ur Leukocyte Esterase Urine RBC Urine WBC Ur Squamous Epith Cells Urine Bacteria Hyaline Casts Urine Creatinine CSF Tube Number CSF Volume CSF Appearance CSF Color CSF WBC CSF RBC CSF Neutrophils CSF Lymphocytes CSF Appearance (b) CSF Glucose CSF Total Protein CSF C.neoform/gat PCR CSF CMV DNA (PCR) CSF Enterovirus (PCR) CSF E. coli K1 (PCR) CSF H. influenzae (PCR) CSF HSV I (PCR) CSF HSV II (PCR) CSF HHV 6 (PCR) CSF L.monocytogenes PCR CSF N. meningitidis PCR CSF Parechovirus (PCR) CSF S. agalactiae (PCR) CSF S. pneumoniae (PCR) CSF VZV (PCR) Nasal Screen MRSA (PCR) Nasal S. aureus Screen Nasal MRSA/S.aureus Interp Stool Occult Blood POSITIVE Vancomycin Trough Random Vancomycin Urine Opiates Screen Urine Fentanyl Screen Ur Barbiturates Screen Phenytoin Ur Phencyclidine Scrn Ur Amphetamines Screen U Benzodiazepines Scrn Urine Cocaine Screen U Marijuana (THC) Screen Ethyl Alcohol Respiratory Panel Peter T.pallidum Ab (EIA) Adenovirus (Rapid PCR) B.pert (TEM-PCR) B.parapertussis DNA PCR C. pneumoniae DNA (PCR) C. difficile Tox B Gene Coronavirus OC43 (PCR) Coronavirus HKU1 (PCR) Coronavirus 229E (PCR) COVID-19 (KATELYNN) COVID-19 Clin Com Coronavirus NL63 (PCR) HIV 1&2 Ab/P24 Ag 4thGn Human Metapneumovir PCR Influenza A (RT-PCR) Influenza B (RT-PCR) M. pneumoniae (PCR) Parainfluenza 1 (PCR) Parainfluenza 2 (PCR) Parainfluenza 3 (PCR) Parainfluenza 4 (PCR) RSV (PCR) Entero/Rhino (PCR) SARS-CoV-2 RNA (RT-PCR) Blood Type Antibody Screen Crossmatch 03/30/22 03/31/22 03/31/22 21:27 06:42 08:47 WBC RBC Hgb Hct MCV MCH MCHC RDW Plt Count MPV Immature Gran % (Auto) Neut % (Auto) Lymph % (Auto) [place] % (Auto) Eos % (Auto) Baso % (Auto) Lymph # (Auto) [place] # (Auto) Eos # (Auto) Baso # (Auto) Abs Immat Gran (auto) Absolute Neuts (auto) Absolute Nucleated RBC Nucleated RBC % (auto) Smear Tech's Comments ESR PT INR APTT O2 Saturation ABG pH at Pt Temp ABG pCO2 at Pt Temp ABG pO2 at Pt Temp ABG HCO3 ABG Base Excess (Actual) VBG pH VBG pCO2 VBG pO2 VBG HCO3 VBG O2 Saturation VBG Base Excess Sodium 142 Potassium 3.4 Chloride 116 H Carbon Dioxide 19 L Anion Gap 10 L BUN 11 Creatinine 0.71 0.57 Estim Creat Clear Calc 100.9 125.7 Estimated GFR > 60 > 60 POC Glucose Random Glucose 120 H Fasting Glucose Estimat Average Glucose Hgb A1c Fingerstick Hemoglobin A1c % Lactic Acid Lactic Acid F/U @ 2Hr Calcium 7.9 L Phosphorus Magnesium Total Bilirubin Direct Bilirubin AST ALT Alkaline Phosphatase Ammonia Total Creatine Kinase Troponin I High Sens C-Reactive Protein Total Protein Albumin Triglycerides Vitamin B1 Vitamin B12 Folate Procalcitonin TSH Urine Color Urine Appearance Urine pH Ur Specific [place] Urine Protein Urine Glucose (UA) Urine Ketones Urine Blood Urine Nitrite Ur Leukocyte Esterase Urine RBC Urine WBC Ur Squamous Epith Cells Urine Bacteria Hyaline Casts Urine Creatinine CSF Tube Number CSF Volume CSF Appearance CSF Color CSF WBC CSF RBC CSF Neutrophils CSF Lymphocytes CSF Appearance (b) CSF Glucose CSF Total Protein CSF C.neoform/gat PCR CSF CMV DNA (PCR) CSF Enterovirus (PCR) CSF E. coli K1 (PCR) CSF H. influenzae (PCR) CSF HSV I (PCR) CSF HSV II (PCR) CSF HHV 6 (PCR) CSF L.monocytogenes PCR CSF N. meningitidis PCR CSF Parechovirus (PCR) CSF S. agalactiae (PCR) CSF S. pneumoniae (PCR) CSF VZV (PCR) Nasal Screen MRSA (PCR) Nasal S. aureus Screen Nasal MRSA/S.aureus Interp Stool Occult Blood Vancomycin Trough 9.5 L Random Vancomycin Urine Opiates Screen Urine Fentanyl Screen Ur Barbiturates Screen Phenytoin Ur Phencyclidine Scrn Ur Amphetamines Screen U Benzodiazepines Scrn Urine Cocaine Screen U Marijuana (THC) Screen Ethyl Alcohol Respiratory Panel Peter T.pallidum Ab (EIA) Adenovirus (Rapid PCR) B.pert (TEM-PCR) B.parapertussis DNA PCR C. pneumoniae DNA (PCR) C. difficile Tox B Gene Coronavirus OC43 (PCR) Coronavirus HKU1 (PCR) Coronavirus 229E (PCR) COVID-19 (KATELYNN) COVID-19 Clin Com Coronavirus NL63 (PCR) HIV 1&2 Ab/P24 Ag 4thGn Human Metapneumovir PCR Influenza A (RT-PCR) Influenza B (RT-PCR) M. pneumoniae (PCR) Parainfluenza 1 (PCR) Parainfluenza 2 (PCR) Parainfluenza 3 (PCR) Parainfluenza 4 (PCR) RSV (PCR) Entero/Rhino (PCR) SARS-CoV-2 RNA (RT-PCR) Blood Type Antibody Screen Crossmatch 03/31/22 04/01/22 04/01/22 14:12 05:59 09:19 WBC RBC Hgb Hct MCV MCH MCHC RDW Plt Count MPV Immature Gran % (Auto) Neut % (Auto) Lymph % (Auto) [place] % (Auto) Eos % (Auto) Baso % (Auto) Lymph # (Auto) [place] # (Auto) Eos # (Auto) Baso # (Auto) Abs Immat Gran (auto) Absolute Neuts (auto) Absolute Nucleated RBC Nucleated RBC % (auto) Smear Tech's Comments ESR PT INR APTT O2 Saturation ABG pH at Pt Temp ABG pCO2 at Pt Temp ABG pO2 at Pt Temp ABG HCO3 ABG Base Excess (Actual) VBG pH VBG pCO2 VBG pO2 VBG HCO3 VBG O2 Saturation VBG Base Excess Sodium 147 H Potassium 3.6 Chloride 118 H Carbon Dioxide 17 L Anion Gap 16 BUN Creatinine 0.66 Estim Creat Clear Calc 108.6 Estimated GFR > 60 POC Glucose Random Glucose Fasting Glucose Estimat Average Glucose Hgb A1c Fingerstick Hemoglobin A1c % Lactic Acid Lactic Acid F/U @ 2Hr Calcium Phosphorus Magnesium Total Bilirubin Direct Bilirubin AST ALT Alkaline Phosphatase Ammonia Total Creatine Kinase Troponin I High Sens C-Reactive Protein Total Protein Albumin Triglycerides Vitamin B1 Vitamin B12 Folate Procalcitonin TSH Urine Color Urine Appearance Urine pH Ur Specific [place] Urine Protein Urine Glucose (UA) Urine Ketones Urine Blood Urine Nitrite Ur Leukocyte Esterase Urine RBC Urine WBC Ur Squamous Epith Cells Urine Bacteria Hyaline Casts Urine Creatinine CSF Tube Number CSF Volume CSF Appearance CSF Color CSF WBC CSF RBC CSF Neutrophils CSF Lymphocytes CSF Appearance (b) CSF Glucose CSF Total Protein CSF C.neoform/gat PCR CSF CMV DNA (PCR) CSF Enterovirus (PCR) CSF E. coli K1 (PCR) CSF H. influenzae (PCR) CSF HSV I (PCR) CSF HSV II (PCR) CSF HHV 6 (PCR) CSF L.monocytogenes PCR CSF N. meningitidis PCR CSF Parechovirus (PCR) CSF S. agalactiae (PCR) CSF S. pneumoniae (PCR) CSF VZV (PCR) Nasal Screen MRSA (PCR) NEGATIVE Nasal S. aureus Screen NEGATIVE Nasal MRSA/S.aureus Interp SEE NOTE Stool Occult Blood Vancomycin Trough 13.2 Random Vancomycin Urine Opiates Screen Urine Fentanyl Screen Ur Barbiturates Screen Phenytoin Ur Phencyclidine Scrn Ur Amphetamines Screen U Benzodiazepines Scrn Urine Cocaine Screen U Marijuana (THC) Screen Ethyl Alcohol Respiratory Panel Peter T.pallidum Ab (EIA) Adenovirus (Rapid PCR) B.pert (TEM-PCR) B.parapertussis DNA PCR C. pneumoniae DNA (PCR) C. difficile Tox B Gene Coronavirus OC43 (PCR) Coronavirus HKU1 (PCR) Coronavirus 229E (PCR) COVID-19 (KATELYNN) COVID-19 Clin Com Coronavirus NL63 (PCR) HIV 1&2 Ab/P24 Ag 4thGn Human Metapneumovir PCR Influenza A (RT-PCR) Influenza B (RT-PCR) M. pneumoniae (PCR) Parainfluenza 1 (PCR) Parainfluenza 2 (PCR) Parainfluenza 3 (PCR) Parainfluenza 4 (PCR) RSV (PCR) Entero/Rhino (PCR) SARS-CoV-2 RNA (RT-PCR) Blood Type Antibody Screen Crossmatch 04/02/22 04/02/22 04/02/22 06:37 09:35 20:55 WBC RBC Hgb Hct MCV MCH MCHC RDW Plt Count MPV Immature Gran % (Auto) Neut % (Auto) Lymph % (Auto) [place] % (Auto) Eos % (Auto) Baso % (Auto) Lymph # (Auto) [place] # (Auto) Eos # (Auto) Baso # (Auto) Abs Immat Gran (auto) Absolute Neuts (auto) Absolute Nucleated RBC Nucleated RBC % (auto) Smear Tech's Comments ESR PT INR APTT O2 Saturation ABG pH at Pt Temp ABG pCO2 at Pt Temp ABG pO2 at Pt Temp ABG HCO3 ABG Base Excess (Actual) VBG pH VBG pCO2 VBG pO2 VBG HCO3 VBG O2 Saturation VBG Base Excess Sodium 149 H 150 H Potassium 3.2 L 3.3 Chloride 121 H 122 H Carbon Dioxide 16 L 15 L Anion Gap 15 16 BUN 13 Creatinine 0.64 0.67 Estim Creat Clear Calc 112.0 106.9 Estimated GFR > 60 > 60 POC Glucose Random Glucose 100 Fasting Glucose Estimat Average Glucose Hgb A1c Fingerstick Hemoglobin A1c % Lactic Acid Lactic Acid F/U @ 2Hr Calcium 8.1 L Phosphorus 2.7 2.4 L Magnesium 1.8 1.8 Total Bilirubin Direct Bilirubin AST ALT Alkaline Phosphatase Ammonia Total Creatine Kinase Troponin I High Sens C-Reactive Protein Total Protein Albumin Triglycerides Vitamin B1 Vitamin B12 Folate Procalcitonin TSH Urine Color Urine Appearance Urine pH Ur Specific [place] Urine Protein Urine Glucose (UA) Urine Ketones Urine Blood Urine Nitrite Ur Leukocyte Esterase Urine RBC Urine WBC Ur Squamous Epith Cells Urine Bacteria Hyaline Casts Urine Creatinine CSF Tube Number CSF Volume CSF Appearance CSF Color CSF WBC CSF RBC CSF Neutrophils CSF Lymphocytes CSF Appearance (b) CSF Glucose CSF Total Protein CSF C.neoform/gat PCR CSF CMV DNA (PCR) CSF Enterovirus (PCR) CSF E. coli K1 (PCR) CSF H. influenzae (PCR) CSF HSV I (PCR) CSF HSV II (PCR) CSF HHV 6 (PCR) CSF L.monocytogenes PCR CSF N. meningitidis PCR CSF Parechovirus (PCR) CSF S. agalactiae (PCR) CSF S. pneumoniae (PCR) CSF VZV (PCR) Nasal Screen MRSA (PCR) Nasal S. aureus Screen Nasal MRSA/S.aureus Interp Stool Occult Blood Vancomycin Trough Random Vancomycin 4.3 L Urine Opiates Screen Urine Fentanyl Screen Ur Barbiturates Screen Phenytoin Ur Phencyclidine Scrn Ur Amphetamines Screen U Benzodiazepines Scrn Urine Cocaine Screen U Marijuana (THC) Screen Ethyl Alcohol Respiratory Panel Peter T.pallidum Ab (EIA) Adenovirus (Rapid PCR) B.pert (TEM-PCR) B.parapertussis DNA PCR C. pneumoniae DNA (PCR) C. difficile Tox B Gene Coronavirus OC43 (PCR) Coronavirus HKU1 (PCR) Coronavirus 229E (PCR) COVID-19 (KATELYNN) COVID-19 Clin Com Coronavirus NL63 (PCR) HIV 1&2 Ab/P24 Ag 4thGn Human Metapneumovir PCR Influenza A (RT-PCR) Influenza B (RT-PCR) M. pneumoniae (PCR) Parainfluenza 1 (PCR) Parainfluenza 2 (PCR) Parainfluenza 3 (PCR) Parainfluenza 4 (PCR) RSV (PCR) Entero/Rhino (PCR) SARS-CoV-2 RNA (RT-PCR) Blood Type Antibody Screen Crossmatch 04/03/22 04/03/22 04/04/22 06:15 06:15 00:44 WBC RBC Hgb Hct MCV MCH MCHC RDW Plt Count MPV Immature Gran % (Auto) Neut % (Auto) Lymph % (Auto) [place] % (Auto) Eos % (Auto) Baso % (Auto) Lymph # (Auto) [place] # (Auto) Eos # (Auto) Baso # (Auto) Abs Immat Gran (auto) Absolute Neuts (auto) Absolute Nucleated RBC Nucleated RBC % (auto) Smear Tech's Comments ESR PT INR APTT O2 Saturation ABG pH at Pt Temp ABG pCO2 at Pt Temp ABG pO2 at Pt Temp ABG HCO3 ABG Base Excess (Actual) VBG pH VBG pCO2 VBG pO2 VBG HCO3 VBG O2 Saturation VBG Base Excess Sodium 150 H 146 H Potassium 3.1 L 2.8 L Chloride 123 H 118 H Carbon Dioxide 19 L 20 L Anion Gap 11 L 11 L BUN 13 11 Creatinine 0.66 0.67 0.66 Estim Creat Clear Calc 108.6 106.9 108.6 Estimated GFR > 60 > 60 > 60 POC Glucose Random Glucose 134 H 158 H Fasting Glucose Estimat Average Glucose Hgb A1c Fingerstick Hemoglobin A1c % Lactic Acid Lactic Acid F/U @ 2Hr Calcium 8.2 L 7.8 L Phosphorus 2.1 L Magnesium 1.7 1.5 L Total Bilirubin Direct Bilirubin AST ALT Alkaline Phosphatase Ammonia Total Creatine Kinase Troponin I High Sens C-Reactive Protein Total Protein Albumin 2.2 L D Triglycerides 47 Vitamin B1 Vitamin B12 Folate Procalcitonin TSH Urine Color Urine Appearance Urine pH Ur Specific [place] Urine Protein Urine Glucose (UA) Urine Ketones Urine Blood Urine Nitrite Ur Leukocyte Esterase Urine RBC Urine WBC Ur Squamous Epith Cells Urine Bacteria Hyaline Casts Urine Creatinine CSF Tube Number CSF Volume CSF Appearance CSF Color CSF WBC CSF RBC CSF Neutrophils CSF Lymphocytes CSF Appearance (b) CSF Glucose CSF Total Protein CSF C.neoform/gat PCR CSF CMV DNA (PCR) CSF Enterovirus (PCR) CSF E. coli K1 (PCR) CSF H. influenzae (PCR) CSF HSV I (PCR) CSF HSV II (PCR) CSF HHV 6 (PCR) CSF L.monocytogenes PCR CSF N. meningitidis PCR CSF Parechovirus (PCR) CSF S. agalactiae (PCR) CSF S. pneumoniae (PCR) CSF VZV (PCR) Nasal Screen MRSA (PCR) Nasal S. aureus Screen Nasal MRSA/S.aureus Interp Stool Occult Blood Vancomycin Trough Random Vancomycin Urine Opiates Screen Urine Fentanyl Screen Ur Barbiturates Screen Phenytoin Ur Phencyclidine Scrn Ur Amphetamines Screen U Benzodiazepines Scrn Urine Cocaine Screen U Marijuana (THC) Screen Ethyl Alcohol Respiratory Panel Peter T.pallidum Ab (EIA) Adenovirus (Rapid PCR) B.pert (TEM-PCR) B.parapertussis DNA PCR C. pneumoniae DNA (PCR) C. difficile Tox B Gene Coronavirus OC43 (PCR) Coronavirus HKU1 (PCR) Coronavirus 229E (PCR) COVID-19 (KATELYNN) COVID-19 Clin Com Coronavirus NL63 (PCR) HIV 1&2 Ab/P24 Ag 4thGn Human Metapneumovir PCR Influenza A (RT-PCR) Influenza B (RT-PCR) M. pneumoniae (PCR) Parainfluenza 1 (PCR) Parainfluenza 2 (PCR) Parainfluenza 3 (PCR) Parainfluenza 4 (PCR) RSV (PCR) Entero/Rhino (PCR) SARS-CoV-2 RNA (RT-PCR) Blood Type Antibody Screen Crossmatch 04/04/22 04/04/22 04/05/22 06:34 06:34 06:26 WBC RBC Hgb Hct MCV MCH MCHC RDW Plt Count MPV Immature Gran % (Auto) Neut % (Auto) Lymph % (Auto) [place] % (Auto) Eos % (Auto) Baso % (Auto) Lymph # (Auto) [place] # (Auto) Eos # (Auto) Baso # (Auto) Abs Immat Gran (auto) Absolute Neuts (auto) Absolute Nucleated RBC Nucleated RBC % (auto) Smear Tech's Comments ESR PT INR APTT O2 Saturation ABG pH at Pt Temp ABG pCO2 at Pt Temp ABG pO2 at Pt Temp ABG HCO3 ABG Base Excess (Actual) VBG pH VBG pCO2 VBG pO2 VBG HCO3 VBG O2 Saturation VBG Base Excess Sodium 143 Potassium 3.1 L Chloride 115 H Carbon Dioxide 20 L Anion Gap 11 L BUN 11 Creatinine 0.60 0.61 0.59 Estim Creat Clear Calc 119.4 117.5 121.4 Estimated GFR > 60 > 60 > 60 POC Glucose Random Glucose 116 H Fasting Glucose Estimat Average Glucose Hgb A1c Fingerstick Hemoglobin A1c % Lactic Acid Lactic Acid F/U @ 2Hr Calcium 7.7 L Phosphorus 3.1 Magnesium 1.5 L Total Bilirubin Direct Bilirubin AST ALT Alkaline Phosphatase Ammonia Total Creatine Kinase Troponin I High Sens C-Reactive Protein Total Protein Albumin Triglycerides Vitamin B1 Vitamin B12 Folate Procalcitonin TSH Urine Color Urine Appearance Urine pH Ur Specific [place] Urine Protein Urine Glucose (UA) Urine Ketones Urine Blood Urine Nitrite Ur Leukocyte Esterase Urine RBC Urine WBC Ur Squamous Epith Cells Urine Bacteria Hyaline Casts Urine Creatinine CSF Tube Number CSF Volume CSF Appearance CSF Color CSF WBC CSF RBC CSF Neutrophils CSF Lymphocytes CSF Appearance (b) CSF Glucose CSF Total Protein CSF C.neoform/gat PCR CSF CMV DNA (PCR) CSF Enterovirus (PCR) CSF E. coli K1 (PCR) CSF H. influenzae (PCR) CSF HSV I (PCR) CSF HSV II (PCR) CSF HHV 6 (PCR) CSF L.monocytogenes PCR CSF N. meningitidis PCR CSF Parechovirus (PCR) CSF S. agalactiae (PCR) CSF S. pneumoniae (PCR) CSF VZV (PCR) Nasal Screen MRSA (PCR) Nasal S. aureus Screen Nasal MRSA/S.aureus Interp Stool Occult Blood Vancomycin Trough Random Vancomycin Urine Opiates Screen Urine Fentanyl Screen Ur Barbiturates Screen Phenytoin Ur Phencyclidine Scrn Ur Amphetamines Screen U Benzodiazepines Scrn Urine Cocaine Screen U Marijuana (THC) Screen Ethyl Alcohol Respiratory Panel Peter T.pallidum Ab (EIA) Adenovirus (Rapid PCR) B.pert (TEM-PCR) B.parapertussis DNA PCR C. pneumoniae DNA (PCR) C. difficile Tox B Gene Coronavirus OC43 (PCR) Coronavirus HKU1 (PCR) Coronavirus 229E (PCR) COVID-19 (KATELYNN) COVID-19 Clin Com Coronavirus NL63 (PCR) HIV 1&2 Ab/P24 Ag 4thGn Human Metapneumovir PCR Influenza A (RT-PCR) Influenza B (RT-PCR) M. pneumoniae (PCR) Parainfluenza 1 (PCR) Parainfluenza 2 (PCR) Parainfluenza 3 (PCR) Parainfluenza 4 (PCR) RSV (PCR) Entero/Rhino (PCR) SARS-CoV-2 RNA (RT-PCR) Blood Type Antibody Screen Crossmatch 04/05/22 04/05/22 04/06/22 06:26 11:53 06:59 WBC 16.6 H RBC 3.83 L Hgb 11.0 L Hct 34.0 L MCV 88.8 D MCH 28.7 MCHC 32.4 RDW 13.6 Plt Count 345 D MPV 9.3 L Immature Gran % (Auto) Neut % (Auto) Lymph % (Auto) [place] % (Auto) Eos % (Auto) Baso % (Auto) Lymph # (Auto) [place] # (Auto) Eos # (Auto) Baso # (Auto) Abs Immat Gran (auto) Absolute Neuts (auto) Absolute Nucleated RBC 0.000 Nucleated RBC % (auto) 0.0 Smear Tech's Comments ESR PT INR APTT O2 Saturation ABG pH at Pt Temp ABG pCO2 at Pt Temp ABG pO2 at Pt Temp ABG HCO3 ABG Base Excess (Actual) VBG pH VBG pCO2 VBG pO2 VBG HCO3 VBG O2 Saturation VBG Base Excess Sodium 138 Potassium 2.9 L Chloride 108 Carbon Dioxide 21 L Anion Gap 12 BUN 8 L Creatinine 0.60 0.63 Estim Creat Clear Calc 119.4 113.7 Estimated GFR > 60 > 60 POC Glucose Random Glucose 126 H Fasting Glucose Estimat Average Glucose Hgb A1c Fingerstick Hemoglobin A1c % Lactic Acid Lactic Acid F/U @ 2Hr Calcium 7.5 L Phosphorus 2.9 Magnesium 1.4 L* Total Bilirubin Direct Bilirubin AST ALT Alkaline Phosphatase Ammonia Total Creatine Kinase Troponin I High Sens C-Reactive Protein Total Protein Albumin 2.1 L Triglycerides 45 Vitamin B1 Vitamin B12 Folate Procalcitonin TSH Urine Color Urine Appearance Urine pH Ur Specific [place] Urine Protein Urine Glucose (UA) Urine Ketones Urine Blood Urine Nitrite Ur Leukocyte Esterase Urine RBC Urine WBC Ur Squamous Epith Cells Urine Bacteria Hyaline Casts Urine Creatinine CSF Tube Number CSF Volume CSF Appearance CSF Color CSF WBC CSF RBC CSF Neutrophils CSF Lymphocytes CSF Appearance (b) CSF Glucose CSF Total Protein CSF C.neoform/gat PCR CSF CMV DNA (PCR) CSF Enterovirus (PCR) CSF E. coli K1 (PCR) CSF H. influenzae (PCR) CSF HSV I (PCR) CSF HSV II (PCR) CSF HHV 6 (PCR) CSF L.monocytogenes PCR CSF N. meningitidis PCR CSF Parechovirus (PCR) CSF S. agalactiae (PCR) CSF S. pneumoniae (PCR) CSF VZV (PCR) Nasal Screen MRSA (PCR) Nasal S. aureus Screen Nasal MRSA/S.aureus Interp Stool Occult Blood Vancomycin Trough Random Vancomycin Urine Opiates Screen Urine Fentanyl Screen Ur Barbiturates Screen Phenytoin Ur Phencyclidine Scrn Ur Amphetamines Screen U Benzodiazepines Scrn Urine Cocaine Screen U Marijuana (THC) Screen Ethyl Alcohol Respiratory Panel Peter T.pallidum Ab (EIA) Adenovirus (Rapid PCR) B.pert (TEM-PCR) B.parapertussis DNA PCR C. pneumoniae DNA (PCR) C. difficile Tox B Gene Coronavirus OC43 (PCR) Coronavirus HKU1 (PCR) Coronavirus 229E (PCR) COVID-19 (KATELYNN) COVID-19 Clin Com Coronavirus NL63 (PCR) HIV 1&2 Ab/P24 Ag 4thGn Human Metapneumovir PCR Influenza A (RT-PCR) Influenza B (RT-PCR) M. pneumoniae (PCR) Parainfluenza 1 (PCR) Parainfluenza 2 (PCR) Parainfluenza 3 (PCR) Parainfluenza 4 (PCR) RSV (PCR) Entero/Rhino (PCR) SARS-CoV-2 RNA (RT-PCR) Blood Type Antibody Screen Crossmatch 04/06/22 04/07/22 04/07/22 06:59 07:12 07:12 WBC RBC Hgb Hct MCV MCH MCHC RDW Plt Count MPV Immature Gran % (Auto) Neut % (Auto) Lymph % (Auto) [place] % (Auto) Eos % (Auto) Baso % (Auto) Lymph # (Auto) [place] # (Auto) Eos # (Auto) Baso # (Auto) Abs Immat Gran (auto) Absolute Neuts (auto) Absolute Nucleated RBC Nucleated RBC % (auto) Smear Tech's Comments ESR PT INR APTT O2 Saturation ABG pH at Pt Temp ABG pCO2 at Pt Temp ABG pO2 at Pt Temp ABG HCO3 ABG Base Excess (Actual) VBG pH VBG pCO2 VBG pO2 VBG HCO3 VBG O2 Saturation VBG Base Excess Sodium 135 138 Potassium 3.6 D 3.6 Chloride 109 H 110 H Carbon Dioxide 20 L 22 Anion Gap 10 L 10 L BUN 12 12 Creatinine 0.60 0.59 0.61 Estim Creat Clear Calc 119.4 121.4 117.5 Estimated GFR > 60 > 60 > 60 POC Glucose Random Glucose 131 H 122 H Fasting Glucose Estimat Average Glucose Hgb A1c Fingerstick Hemoglobin A1c % Lactic Acid Lactic Acid F/U @ 2Hr Calcium 7.5 L 7.7 L Phosphorus 2.5 L 2.4 L Magnesium 1.8 1.6 Total Bilirubin Direct Bilirubin AST ALT Alkaline Phosphatase Ammonia Total Creatine Kinase Troponin I High Sens C-Reactive Protein Total Protein Albumin Triglycerides Vitamin B1 Vitamin B12 Folate Procalcitonin TSH Urine Color Urine Appearance Urine pH Ur Specific [place] Urine Protein Urine Glucose (UA) Urine Ketones Urine Blood Urine Nitrite Ur Leukocyte Esterase Urine RBC Urine WBC Ur Squamous Epith Cells Urine Bacteria Hyaline Casts Urine Creatinine CSF Tube Number CSF Volume CSF Appearance CSF Color CSF WBC CSF RBC CSF Neutrophils CSF Lymphocytes CSF Appearance (b) CSF Glucose CSF Total Protein CSF C.neoform/gat PCR CSF CMV DNA (PCR) CSF Enterovirus (PCR) CSF E. coli K1 (PCR) CSF H. influenzae (PCR) CSF HSV I (PCR) CSF HSV II (PCR) CSF HHV 6 (PCR) CSF L.monocytogenes PCR CSF N. meningitidis PCR CSF Parechovirus (PCR) CSF S. agalactiae (PCR) CSF S. pneumoniae (PCR) CSF VZV (PCR) Nasal Screen MRSA (PCR) Nasal S. aureus Screen Nasal MRSA/S.aureus Interp Stool Occult Blood Vancomycin Trough Random Vancomycin Urine Opiates Screen Urine Fentanyl Screen Ur Barbiturates Screen Phenytoin Ur Phencyclidine Scrn Ur Amphetamines Screen U Benzodiazepines Scrn Urine Cocaine Screen U Marijuana (THC) Screen Ethyl Alcohol Respiratory Panel Peter T.pallidum Ab (EIA) Adenovirus (Rapid PCR) B.pert (TEM-PCR) B.parapertussis DNA PCR C. pneumoniae DNA (PCR) C. difficile Tox B Gene Coronavirus OC43 (PCR) Coronavirus HKU1 (PCR) Coronavirus 229E (PCR) COVID-19 (KATELYNN) COVID-19 Clin Com Coronavirus NL63 (PCR) HIV 1&2 Ab/P24 Ag 4thGn Human Metapneumovir PCR Influenza A (RT-PCR) Influenza B (RT-PCR) M. pneumoniae (PCR) Parainfluenza 1 (PCR) Parainfluenza 2 (PCR) Parainfluenza 3 (PCR) Parainfluenza 4 (PCR) RSV (PCR) Entero/Rhino (PCR) SARS-CoV-2 RNA (RT-PCR) Blood Type Antibody Screen Crossmatch 04/07/22 04/08/22 04/08/22 09:21 06:02 06:02 WBC 11.4 H RBC 2.59 L D Hgb 7.7 L D Hct 24.4 L D MCV 94.2 D MCH 29.7 MCHC 31.6 RDW 14.6 Plt Count 279 MPV 9.0 L Immature Gran % (Auto) 0.8 H Neut % (Auto) 78.5 H Lymph % (Auto) 13.7 L [place] % (Auto) 5.9 Eos % (Auto) 0.9 Baso % (Auto) 0.2 Lymph # (Auto) 1.6 [place] # (Auto) 0.7 Eos # (Auto) 0.1 Baso # (Auto) 0.0 Abs Immat Gran (auto) 0.09 H Absolute Neuts (auto) 8.9 H Absolute Nucleated RBC 0.000 Nucleated RBC % (auto) 0.0 Smear Tech's Comments ESR PT INR APTT O2 Saturation ABG pH at Pt Temp ABG pCO2 at Pt Temp ABG pO2 at Pt Temp ABG HCO3 ABG Base Excess (Actual) VBG pH VBG pCO2 VBG pO2 VBG HCO3 VBG O2 Saturation VBG Base Excess Sodium 124 L Potassium 4.9 D Chloride 97 Carbon Dioxide 21 L Anion Gap 11 L BUN 10 Creatinine 0.67 Estim Creat Clear Calc 106.9 Estimated GFR > 60 POC Glucose Random Glucose 781 H* Fasting Glucose Estimat Average Glucose Hgb A1c Fingerstick Hemoglobin A1c % Lactic Acid Lactic Acid F/U @ 2Hr Calcium 6.9 L D Phosphorus 3.5 Magnesium 1.4 L* Total Bilirubin Direct Bilirubin AST ALT Alkaline Phosphatase Ammonia Total Creatine Kinase Troponin I High Sens C-Reactive Protein Total Protein Albumin Triglycerides Vitamin B1 Vitamin B12 Folate Procalcitonin TSH Urine Color Urine Appearance Urine pH Ur Specific [place] Urine Protein Urine Glucose (UA) Urine Ketones Urine Blood Urine Nitrite Ur Leukocyte Esterase Urine RBC Urine WBC Ur Squamous Epith Cells Urine Bacteria Hyaline Casts Urine Creatinine CSF Tube Number CSF Volume CSF Appearance CSF Color CSF WBC CSF RBC CSF Neutrophils CSF Lymphocytes CSF Appearance (b) CSF Glucose CSF Total Protein CSF C.neoform/gat PCR CSF CMV DNA (PCR) CSF Enterovirus (PCR) CSF E. coli K1 (PCR) CSF H. influenzae (PCR) CSF HSV I (PCR) CSF HSV II (PCR) CSF HHV 6 (PCR) CSF L.monocytogenes PCR CSF N. meningitidis PCR CSF Parechovirus (PCR) CSF S. agalactiae (PCR) CSF S. pneumoniae (PCR) CSF VZV (PCR) Nasal Screen MRSA (PCR) Nasal S. aureus Screen Nasal MRSA/S.aureus Interp Stool Occult Blood Vancomycin Trough Random Vancomycin Urine Opiates Screen Urine Fentanyl Screen Ur Barbiturates Screen Phenytoin Ur Phencyclidine Scrn Ur Amphetamines Screen U Benzodiazepines Scrn Urine Cocaine Screen U Marijuana (THC) Screen Ethyl Alcohol Respiratory Panel Peter T.pallidum Ab (EIA) Adenovirus (Rapid PCR) B.pert (TEM-PCR) B.parapertussis DNA PCR C. pneumoniae DNA (PCR) C. difficile Tox B Gene Coronavirus OC43 (PCR) Coronavirus HKU1 (PCR) Coronavirus 229E (PCR) COVID-19 (KATELYNN) COVID-19 Clin Com Coronavirus NL63 (PCR) HIV 1&2 Ab/P24 Ag 4thGn Human Metapneumovir PCR Influenza A (RT-PCR) Influenza B (RT-PCR) M. pneumoniae (PCR) Parainfluenza 1 (PCR) Parainfluenza 2 (PCR) Parainfluenza 3 (PCR) Parainfluenza 4 (PCR) RSV (PCR) Entero/Rhino (PCR) SARS-CoV-2 RNA (RT-PCR) Blood Type B Positive Antibody Screen NEGATIVE Crossmatch 04/08/22 04/08/22 04/08/22 06:02 06:02 08:51 WBC RBC Hgb Hct MCV MCH MCHC RDW Plt Count MPV Immature Gran % (Auto) Neut % (Auto) Lymph % (Auto) [place] % (Auto) Eos % (Auto) Baso % (Auto) Lymph # (Auto) [place] # (Auto) Eos # (Auto) Baso # (Auto) Abs Immat Gran (auto) Absolute Neuts (auto) Absolute Nucleated RBC Nucleated RBC % (auto) Smear Tech's Comments ESR PT INR APTT O2 Saturation ABG pH at Pt Temp ABG pCO2 at Pt Temp ABG pO2 at Pt Temp ABG HCO3 ABG Base Excess (Actual) VBG pH VBG pCO2 VBG pO2 VBG HCO3 VBG O2 Saturation VBG Base Excess Sodium Potassium Chloride Carbon Dioxide Anion Gap BUN Creatinine Estim Creat Clear Calc Estimated GFR POC Glucose 128 H Random Glucose Fasting Glucose Estimat Average Glucose 126 Hgb A1c Fingerstick Cancelled Hemoglobin A1c % 6.0 Lactic Acid Lactic Acid F/U @ 2Hr Calcium Phosphorus Magnesium Total Bilirubin Direct Bilirubin AST ALT Alkaline Phosphatase Ammonia Total Creatine Kinase Troponin I High Sens C-Reactive Protein Total Protein Albumin Triglycerides Vitamin B1 Vitamin B12 Folate Procalcitonin TSH Urine Color Urine Appearance Urine pH Ur Specific [place] Urine Protein Urine Glucose (UA) Urine Ketones Urine Blood Urine Nitrite Ur Leukocyte Esterase Urine RBC Urine WBC Ur Squamous Epith Cells Urine Bacteria Hyaline Casts Urine Creatinine CSF Tube Number CSF Volume CSF Appearance CSF Color CSF WBC CSF RBC CSF Neutrophils CSF Lymphocytes CSF Appearance (b) CSF Glucose CSF Total Protein CSF C.neoform/gat PCR CSF CMV DNA (PCR) CSF Enterovirus (PCR) CSF E. coli K1 (PCR) CSF H. influenzae (PCR) CSF HSV I (PCR) CSF HSV II (PCR) CSF HHV 6 (PCR) CSF L.monocytogenes PCR CSF N. meningitidis PCR CSF Parechovirus (PCR) CSF S. agalactiae (PCR) CSF S. pneumoniae (PCR) CSF VZV (PCR) Nasal Screen MRSA (PCR) Nasal S. aureus Screen Nasal MRSA/S.aureus Interp Stool Occult Blood Vancomycin Trough Random Vancomycin Urine Opiates Screen Urine Fentanyl Screen Ur Barbiturates Screen Phenytoin Ur Phencyclidine Scrn Ur Amphetamines Screen U Benzodiazepines Scrn Urine Cocaine Screen U Marijuana (THC) Screen Ethyl Alcohol Respiratory Panel Peter T.pallidum Ab (EIA) Adenovirus (Rapid PCR) B.pert (TEM-PCR) B.parapertussis DNA PCR C. pneumoniae DNA (PCR) C. difficile Tox B Gene Coronavirus OC43 (PCR) Coronavirus HKU1 (PCR) Coronavirus 229E (PCR) COVID-19 (KATELYNN) COVID-19 Clin Com Coronavirus NL63 (PCR) HIV 1&2 Ab/P24 Ag 4thGn Human Metapneumovir PCR Influenza A (RT-PCR) Influenza B (RT-PCR) M. pneumoniae (PCR) Parainfluenza 1 (PCR) Parainfluenza 2 (PCR) Parainfluenza 3 (PCR) Parainfluenza 4 (PCR) RSV (PCR) Entero/Rhino (PCR) SARS-CoV-2 RNA (RT-PCR) Blood Type Antibody Screen Crossmatch 04/08/22 04/08/22 04/08/22 10:19 10:19 10:24 WBC RBC Hgb Hct MCV MCH MCHC RDW Plt Count MPV Immature Gran % (Auto) Neut % (Auto) Lymph % (Auto) [place] % (Auto) Eos % (Auto) Baso % (Auto) Lymph # (Auto) [place] # (Auto) Eos # (Auto) Baso # (Auto) Abs Immat Gran (auto) Absolute Neuts (auto) Absolute Nucleated RBC Nucleated RBC % (auto) Smear Tech's Comments ESR PT INR APTT O2 Saturation ABG pH at Pt Temp ABG pCO2 at Pt Temp ABG pO2 at Pt Temp ABG HCO3 ABG Base Excess (Actual) VBG pH 7.53 H VBG pCO2 30 VBG pO2 61 VBG HCO3 25 VBG O2 Saturation 92.0 VBG Base Excess 2.9 Sodium 138 Potassium 4.3 Chloride 107 Carbon Dioxide 25 Anion Gap 10 L BUN 11 Creatinine 0.55 0.55 Estim Creat Clear Calc 130.3 130.3 Estimated GFR > 60 > 60 POC Glucose Random Glucose 126 H Fasting Glucose Estimat Average Glucose Hgb A1c Fingerstick Hemoglobin A1c % Lactic Acid Lactic Acid F/U @ 2Hr Calcium 7.3 L Phosphorus 3.0 Magnesium 1.5 L Total Bilirubin Direct Bilirubin AST ALT Alkaline Phosphatase Ammonia Total Creatine Kinase Troponin I High Sens C-Reactive Protein Total Protein Albumin 1.7 L Triglycerides Vitamin B1 Vitamin B12 Folate Procalcitonin TSH Urine Color Urine Appearance Urine pH Ur Specific [place] Urine Protein Urine Glucose (UA) Urine Ketones Urine Blood Urine Nitrite Ur Leukocyte Esterase Urine RBC Urine WBC Ur Squamous Epith Cells Urine Bacteria Hyaline Casts Urine Creatinine CSF Tube Number CSF Volume CSF Appearance CSF Color CSF WBC CSF RBC CSF Neutrophils CSF Lymphocytes CSF Appearance (b) CSF Glucose CSF Total Protein CSF C.neoform/gat PCR CSF CMV DNA (PCR) CSF Enterovirus (PCR) CSF E. coli K1 (PCR) CSF H. influenzae (PCR) CSF HSV I (PCR) CSF HSV II (PCR) CSF HHV 6 (PCR) CSF L.monocytogenes PCR CSF N. meningitidis PCR CSF Parechovirus (PCR) CSF S. agalactiae (PCR) CSF S. pneumoniae (PCR) CSF VZV (PCR) Nasal Screen MRSA (PCR) Nasal S. aureus Screen Nasal MRSA/S.aureus Interp Stool Occult Blood Vancomycin Trough Random Vancomycin Urine Opiates Screen Urine Fentanyl Screen Ur Barbiturates Screen Phenytoin Ur Phencyclidine Scrn Ur Amphetamines Screen U Benzodiazepines Scrn Urine Cocaine Screen U Marijuana (THC) Screen Ethyl Alcohol Respiratory Panel Peter T.pallidum Ab (EIA) Adenovirus (Rapid PCR) B.pert (TEM-PCR) B.parapertussis DNA PCR C. pneumoniae DNA (PCR) C. difficile Tox B Gene Coronavirus OC43 (PCR) Coronavirus HKU1 (PCR) Coronavirus 229E (PCR) COVID-19 (KATELNYN) COVID-19 Clin Com Coronavirus NL63 (PCR) HIV 1&2 Ab/P24 Ag 4thGn Human Metapneumovir PCR Influenza A (RT-PCR) Influenza B (RT-PCR) M. pneumoniae (PCR) Parainfluenza 1 (PCR) Parainfluenza 2 (PCR) Parainfluenza 3 (PCR) Parainfluenza 4 (PCR) RSV (PCR) Entero/Rhino (PCR) SARS-CoV-2 RNA (RT-PCR) Blood Type Antibody Screen Crossmatch 04/09/22 04/09/22 04/09/22 06:49 06:49 06:49 WBC 13.9 H RBC 2.92 L Hgb 8.6 L Hct 26.7 L MCV 91.4 MCH 29.5 MCHC 32.2 RDW 14.6 Plt Count 310 MPV 9.2 L Immature Gran % (Auto) Neut % (Auto) Lymph % (Auto) [place] % (Auto) Eos % (Auto) Baso % (Auto) Lymph # (Auto) [place] # (Auto) Eos # (Auto) Baso # (Auto) Abs Immat Gran (auto) Absolute Neuts (auto) Absolute Nucleated RBC 0.000 Nucleated RBC % (auto) 0.0 Smear Tech's Comments ESR PT INR APTT O2 Saturation ABG pH at Pt Temp ABG pCO2 at Pt Temp ABG pO2 at Pt Temp ABG HCO3 ABG Base Excess (Actual) VBG pH VBG pCO2 VBG pO2 VBG HCO3 VBG O2 Saturation VBG Base Excess Sodium 133 L Potassium 4.4 Chloride 104 Carbon Dioxide 25 Anion Gap 8 L BUN 11 Creatinine Cancelled 0.53 Estim Creat Clear Calc Cancelled 135.2 Estimated GFR Cancelled > 60 POC Glucose Random Glucose 152 H Fasting Glucose Estimat Average Glucose Hgb A1c Fingerstick Hemoglobin A1c % Lactic Acid Lactic Acid F/U @ 2Hr Calcium 7.6 L Phosphorus 3.1 Magnesium 1.7 Total Bilirubin Direct Bilirubin AST ALT Alkaline Phosphatase Ammonia Total Creatine Kinase Troponin I High Sens C-Reactive Protein Total Protein Albumin 1.7 L Triglycerides Vitamin B1 Vitamin B12 Folate Procalcitonin TSH Urine Color Urine Appearance Urine pH Ur Specific [place] Urine Protein Urine Glucose (UA) Urine Ketones Urine Blood Urine Nitrite Ur Leukocyte Esterase Urine RBC Urine WBC Ur Squamous Epith Cells Urine Bacteria Hyaline Casts Urine Creatinine CSF Tube Number CSF Volume CSF Appearance CSF Color CSF WBC CSF RBC CSF Neutrophils CSF Lymphocytes CSF Appearance (b) CSF Glucose CSF Total Protein CSF C.neoform/gat PCR CSF CMV DNA (PCR) CSF Enterovirus (PCR) CSF E. coli K1 (PCR) CSF H. influenzae (PCR) CSF HSV I (PCR) CSF HSV II (PCR) CSF HHV 6 (PCR) CSF L.monocytogenes PCR CSF N. meningitidis PCR CSF Parechovirus (PCR) CSF S. agalactiae (PCR) CSF S. pneumoniae (PCR) CSF VZV (PCR) Nasal Screen MRSA (PCR) Nasal S. aureus Screen Nasal MRSA/S.aureus Interp Stool Occult Blood Vancomycin Trough Random Vancomycin Urine Opiates Screen Urine Fentanyl Screen Ur Barbiturates Screen Phenytoin Ur Phencyclidine Scrn Ur Amphetamines Screen U Benzodiazepines Scrn Urine Cocaine Screen U Marijuana (THC) Screen Ethyl Alcohol Respiratory Panel Peter T.pallidum Ab (EIA) Adenovirus (Rapid PCR) B.pert (TEM-PCR) B.parapertussis DNA PCR C. pneumoniae DNA (PCR) C. difficile Tox B Gene Coronavirus OC43 (PCR) Coronavirus HKU1 (PCR) Coronavirus 229E (PCR) COVID-19 (KATELYNN) COVID-19 Clin Com Coronavirus NL63 (PCR) HIV 1&2 Ab/P24 Ag 4thGn Human Metapneumovir PCR Influenza A (RT-PCR) Influenza B (RT-PCR) M. pneumoniae (PCR) Parainfluenza 1 (PCR) Parainfluenza 2 (PCR) Parainfluenza 3 (PCR) Parainfluenza 4 (PCR) RSV (PCR) Entero/Rhino (PCR) SARS-CoV-2 RNA (RT-PCR) Blood Type Antibody Screen Crossmatch 04/10/22 04/10/22 04/10/22 06:50 06:50 13:07 WBC 17.2 H RBC 3.21 L Hgb 9.2 L 8.0 L Hct 29.0 L 24.8 L MCV 90.3 MCH 28.7 MCHC 31.7 RDW 14.7 Plt Count 319 MPV 9.2 L Immature Gran % (Auto) Neut % (Auto) Lymph % (Auto) [place] % (Auto) Eos % (Auto) Baso % (Auto) Lymph # (Auto) [place] # (Auto) Eos # (Auto) Baso # (Auto) Abs Immat Gran (auto) Absolute Neuts (auto) Absolute Nucleated RBC 0.000 Nucleated RBC % (auto) 0.0 Smear Tech's Comments ESR PT INR APTT O2 Saturation ABG pH at Pt Temp ABG pCO2 at Pt Temp ABG pO2 at Pt Temp ABG HCO3 ABG Base Excess (Actual) VBG pH VBG pCO2 VBG pO2 VBG HCO3 VBG O2 Saturation VBG Base Excess Sodium 132 L Potassium 4.7 Chloride 100 Carbon Dioxide 27 Anion Gap 10 L BUN 13 Creatinine 0.52 Estim Creat Clear Calc 137.8 Estimated GFR > 60 POC Glucose Random Glucose 154 H Fasting Glucose Estimat Average Glucose Hgb A1c Fingerstick Hemoglobin A1c % Lactic Acid Lactic Acid F/U @ 2Hr Calcium 7.8 L Phosphorus 3.1 Magnesium 1.6 Total Bilirubin Direct Bilirubin AST ALT Alkaline Phosphatase Ammonia Total Creatine Kinase Troponin I High Sens C-Reactive Protein Total Protein Albumin 1.8 L Triglycerides 49 Vitamin B1 Vitamin B12 Folate Procalcitonin TSH Urine Color Urine Appearance Urine pH Ur Specific [place] Urine Protein Urine Glucose (UA) Urine Ketones Urine Blood Urine Nitrite Ur Leukocyte Esterase Urine RBC Urine WBC Ur Squamous Epith Cells Urine Bacteria Hyaline Casts Urine Creatinine CSF Tube Number CSF Volume CSF Appearance CSF Color CSF WBC CSF RBC CSF Neutrophils CSF Lymphocytes CSF Appearance (b) CSF Glucose CSF Total Protein CSF C.neoform/gat PCR CSF CMV DNA (PCR) CSF Enterovirus (PCR) CSF E. coli K1 (PCR) CSF H. influenzae (PCR) CSF HSV I (PCR) CSF HSV II (PCR) CSF HHV 6 (PCR) CSF L.monocytogenes PCR CSF N. meningitidis PCR CSF Parechovirus (PCR) CSF S. agalactiae (PCR) CSF S. pneumoniae (PCR) CSF VZV (PCR) Nasal Screen MRSA (PCR) Nasal S. aureus Screen Nasal MRSA/S.aureus Interp Stool Occult Blood Vancomycin Trough Random Vancomycin Urine Opiates Screen Urine Fentanyl Screen Ur Barbiturates Screen Phenytoin Ur Phencyclidine Scrn Ur Amphetamines Screen U Benzodiazepines Scrn Urine Cocaine Screen U Marijuana (THC) Screen Ethyl Alcohol Respiratory Panel Peter T.pallidum Ab (EIA) Adenovirus (Rapid PCR) B.pert (TEM-PCR) B.parapertussis DNA PCR C. pneumoniae DNA (PCR) C. difficile Tox B Gene Coronavirus OC43 (PCR) Coronavirus HKU1 (PCR) Coronavirus 229E (PCR) COVID-19 (KATELYNN) COVID-19 Clin Com Coronavirus NL63 (PCR) HIV 1&2 Ab/P24 Ag 4thGn Human Metapneumovir PCR Influenza A (RT-PCR) Influenza B (RT-PCR) M. pneumoniae (PCR) Parainfluenza 1 (PCR) Parainfluenza 2 (PCR) Parainfluenza 3 (PCR) Parainfluenza 4 (PCR) RSV (PCR) Entero/Rhino (PCR) SARS-CoV-2 RNA (RT-PCR) Blood Type Antibody Screen Crossmatch 04/10/22 04/10/22 04/10/22 13:07 14:22 16:03 WBC RBC Hgb Hct MCV MCH MCHC RDW Plt Count MPV Immature Gran % (Auto) Neut % (Auto) Lymph % (Auto) [place] % (Auto) Eos % (Auto) Baso % (Auto) Lymph # (Auto) [place] # (Auto) Eos # (Auto) Baso # (Auto) Abs Immat Gran (auto) Absolute Neuts (auto) Absolute Nucleated RBC Nucleated RBC % (auto) Smear Tech's Comments ESR PT 18.6 H INR 1.6 H APTT O2 Saturation ABG pH at Pt Temp ABG pCO2 at Pt Temp ABG pO2 at Pt Temp ABG HCO3 ABG Base Excess (Actual) VBG pH VBG pCO2 VBG pO2 VBG HCO3 VBG O2 Saturation VBG Base Excess Sodium Potassium Chloride Carbon Dioxide Anion Gap BUN Creatinine Estim Creat Clear Calc Estimated GFR POC Glucose Random Glucose Fasting Glucose Estimat Average Glucose Hgb A1c Fingerstick Hemoglobin A1c % Lactic Acid Lactic Acid F/U @ 2Hr Calcium Phosphorus Magnesium Total Bilirubin Direct Bilirubin AST ALT Alkaline Phosphatase Ammonia Total Creatine Kinase Troponin I High Sens C-Reactive Protein Total Protein Albumin Triglycerides Vitamin B1 Vitamin B12 Folate Procalcitonin TSH Urine Color Urine Appearance Urine pH Ur Specific [place] Urine Protein Urine Glucose (UA) Urine Ketones Urine Blood Urine Nitrite Ur Leukocyte Esterase Urine RBC Urine WBC Ur Squamous Epith Cells Urine Bacteria Hyaline Casts Urine Creatinine CSF Tube Number CSF Volume CSF Appearance CSF Color CSF WBC CSF RBC CSF Neutrophils CSF Lymphocytes CSF Appearance (b) CSF Glucose CSF Total Protein CSF C.neoform/gat PCR CSF CMV DNA (PCR) CSF Enterovirus (PCR) CSF E. coli K1 (PCR) CSF H. influenzae (PCR) CSF HSV I (PCR) CSF HSV II (PCR) CSF HHV 6 (PCR) CSF L.monocytogenes PCR CSF N. meningitidis PCR CSF Parechovirus (PCR) CSF S. agalactiae (PCR) CSF S. pneumoniae (PCR) CSF VZV (PCR) Nasal Screen MRSA (PCR) Nasal S. aureus Screen Nasal MRSA/S.aureus Interp Stool Occult Blood Vancomycin Trough Random Vancomycin Urine Opiates Screen Urine Fentanyl Screen Ur Barbiturates Screen Phenytoin Ur Phencyclidine Scrn Ur Amphetamines Screen U Benzodiazepines Scrn Urine Cocaine Screen U Marijuana (THC) Screen Ethyl Alcohol Respiratory Panel Peter T.pallidum Ab (EIA) Adenovirus (Rapid PCR) B.pert (TEM-PCR) B.parapertussis DNA PCR C. pneumoniae DNA (PCR) C. difficile Tox B Gene NEGATIVE Coronavirus OC43 (PCR) Coronavirus HKU1 (PCR) Coronavirus 229E (PCR) COVID-19 (KATELYNN) COVID-19 Clin Com Coronavirus NL63 (PCR) HIV 1&2 Ab/P24 Ag 4thGn Human Metapneumovir PCR Influenza A (RT-PCR) Influenza B (RT-PCR) M. pneumoniae (PCR) Parainfluenza 1 (PCR) Parainfluenza 2 (PCR) Parainfluenza 3 (PCR) Parainfluenza 4 (PCR) RSV (PCR) Entero/Rhino (PCR) SARS-CoV-2 RNA (RT-PCR) Blood Type B Positive Antibody Screen NEGATIVE Crossmatch See Detail 04/10/22 04/10/22 04/11/22 17:52 20:57 05:18 WBC 14.6 H 13.2 H RBC 2.05 L D 2.82 L D Hgb 6.2 L* D 8.7 L D Hct 18.6 L* D 25.6 L D MCV 90.7 90.8 MCH 30.2 30.9 MCHC 33.3 34.0 RDW 14.7 14.6 Plt Count 224 D 219 MPV 8.9 L 9.0 L Immature Gran % (Auto) 1.2 H 1.3 H Neut % (Auto) 65.1 71.3 Lymph % (Auto) 24.3 17.3 L [place] % (Auto) 8.6 8.4 Eos % (Auto) 0.5 1.5 Baso % (Auto) 0.3 0.2 Lymph # (Auto) 3.5 2.3 [place] # (Auto) 1.3 H 1.1 Eos # (Auto) 0.1 0.2 Baso # (Auto) 0.1 0.0 Abs Immat Gran (auto) 0.17 H 0.17 H Absolute Neuts (auto) 9.5 H 9.4 H Absolute Nucleated RBC 0.000 0.000 Nucleated RBC % (auto) 0.0 0.0 Smear Tech's Comments ESR PT INR APTT O2 Saturation ABG pH at Pt Temp ABG pCO2 at Pt Temp ABG pO2 at Pt Temp ABG HCO3 ABG Base Excess (Actual) VBG pH VBG pCO2 VBG pO2 VBG HCO3 VBG O2 Saturation VBG Base Excess Sodium Potassium Chloride Carbon Dioxide Anion Gap BUN Creatinine Estim Creat Clear Calc Estimated GFR POC Glucose 139 H Random Glucose Fasting Glucose Estimat Average Glucose Hgb A1c Fingerstick Hemoglobin A1c % Lactic Acid Lactic Acid F/U @ 2Hr Calcium Phosphorus Magnesium Total Bilirubin Direct Bilirubin AST ALT Alkaline Phosphatase Ammonia Total Creatine Kinase Troponin I High Sens C-Reactive Protein Total Protein Albumin Triglycerides Vitamin B1 Vitamin B12 Folate Procalcitonin TSH Urine Color Urine Appearance Urine pH Ur Specific [place] Urine Protein Urine Glucose (UA) Urine Ketones Urine Blood Urine Nitrite Ur Leukocyte Esterase Urine RBC Urine WBC Ur Squamous Epith Cells Urine Bacteria Hyaline Casts Urine Creatinine CSF Tube Number CSF Volume CSF Appearance CSF Color CSF WBC CSF RBC CSF Neutrophils CSF Lymphocytes CSF Appearance (b) CSF Glucose CSF Total Protein CSF C.neoform/gat PCR CSF CMV DNA (PCR) CSF Enterovirus (PCR) CSF E. coli K1 (PCR) CSF H. influenzae (PCR) CSF HSV I (PCR) CSF HSV II (PCR) CSF HHV 6 (PCR) CSF L.monocytogenes PCR CSF N. meningitidis PCR CSF Parechovirus (PCR) CSF S. agalactiae (PCR) CSF S. pneumoniae (PCR) CSF VZV (PCR) Nasal Screen MRSA (PCR) Nasal S. aureus Screen Nasal MRSA/S.aureus Interp Stool Occult Blood Vancomycin Trough Random Vancomycin Urine Opiates Screen Urine Fentanyl Screen Ur Barbiturates Screen Phenytoin Ur Phencyclidine Scrn Ur Amphetamines Screen U Benzodiazepines Scrn Urine Cocaine Screen U Marijuana (THC) Screen Ethyl Alcohol Respiratory Panel Peter T.pallidum Ab (EIA) Adenovirus (Rapid PCR) B.pert (TEM-PCR) B.parapertussis DNA PCR C. pneumoniae DNA (PCR) C. difficile Tox B Gene Coronavirus OC43 (PCR) Coronavirus HKU1 (PCR) Coronavirus 229E (PCR) COVID-19 (KATELYNN) COVID-19 Clin Com Coronavirus NL63 (PCR) HIV 1&2 Ab/P24 Ag 4thGn Human Metapneumovir PCR Influenza A (RT-PCR) Influenza B (RT-PCR) M. pneumoniae (PCR) Parainfluenza 1 (PCR) Parainfluenza 2 (PCR) Parainfluenza 3 (PCR) Parainfluenza 4 (PCR) RSV (PCR) Entero/Rhino (PCR) SARS-CoV-2 RNA (RT-PCR) Blood Type Antibody Screen Crossmatch 04/11/22 04/11/22 04/11/22 05:18 05:18 05:22 WBC RBC Hgb Hct MCV MCH MCHC RDW Plt Count MPV Immature Gran % (Auto) Neut % (Auto) Lymph % (Auto) [place] % (Auto) Eos % (Auto) Baso % (Auto) Lymph # (Auto) [place] # (Auto) Eos # (Auto) Baso # (Auto) Abs Immat Gran (auto) Absolute Neuts (auto) Absolute Nucleated RBC Nucleated RBC % (auto) Smear Tech's Comments ESR PT INR APTT O2 Saturation ABG pH at Pt Temp ABG pCO2 at Pt Temp ABG pO2 at Pt Temp ABG HCO3 ABG Base Excess (Actual) VBG pH 7.47 H VBG pCO2 34 VBG pO2 50 VBG HCO3 25 VBG O2 Saturation 81.0 VBG Base Excess 2.5 Sodium 135 Potassium 4.3 Chloride 105 Carbon Dioxide 27 Anion Gap 7 L BUN 16 Creatinine 0.56 Estim Creat Clear Calc 128.0 Estimated GFR > 60 POC Glucose Random Glucose 161 H Fasting Glucose Estimat Average Glucose Hgb A1c Fingerstick Hemoglobin A1c % Lactic Acid Lactic Acid F/U @ 2Hr Calcium 8.1 L Phosphorus 2.9 Magnesium 1.7 Total Bilirubin 0.7 Direct Bilirubin AST 16 ALT 8 Alkaline Phosphatase 35 L Ammonia Total Creatine Kinase Troponin I High Sens C-Reactive Protein Total Protein 5.0 L Albumin 2.8 L Triglycerides 129 Vitamin B1 Vitamin B12 Folate Procalcitonin TSH Urine Color Urine Appearance Urine pH Ur Specific [place] Urine Protein Urine Glucose (UA) Urine Ketones Urine Blood Urine Nitrite Ur Leukocyte Esterase Urine RBC Urine WBC Ur Squamous Epith Cells Urine Bacteria Hyaline Casts Urine Creatinine CSF Tube Number CSF Volume CSF Appearance CSF Color CSF WBC CSF RBC CSF Neutrophils CSF Lymphocytes CSF Appearance (b) CSF Glucose CSF Total Protein CSF C.neoform/gat PCR CSF CMV DNA (PCR) CSF Enterovirus (PCR) CSF E. coli K1 (PCR) CSF H. influenzae (PCR) CSF HSV I (PCR) CSF HSV II (PCR) CSF HHV 6 (PCR) CSF L.monocytogenes PCR CSF N. meningitidis PCR CSF Parechovirus (PCR) CSF S. agalactiae (PCR) CSF S. pneumoniae (PCR) CSF VZV (PCR) Nasal Screen MRSA (PCR) Nasal S. aureus Screen Nasal MRSA/S.aureus Interp Stool Occult Blood Vancomycin Trough Random Vancomycin Urine Opiates Screen Urine Fentanyl Screen Ur Barbiturates Screen Phenytoin Ur Phencyclidine Scrn Ur Amphetamines Screen U Benzodiazepines Scrn Urine Cocaine Screen U Marijuana (THC) Screen Ethyl Alcohol Respiratory Panel Peter T.pallidum Ab (EIA) Adenovirus (Rapid PCR) B.pert (TEM-PCR) B.parapertussis DNA PCR C. pneumoniae DNA (PCR) C. difficile Tox B Gene Coronavirus OC43 (PCR) Coronavirus HKU1 (PCR) Coronavirus 229E (PCR) COVID-19 (KATELYNN) COVID-19 Clin Com Coronavirus NL63 (PCR) HIV 1&2 Ab/P24 Ag 4thGn Human Metapneumovir PCR Influenza A (RT-PCR) Influenza B (RT-PCR) M. pneumoniae (PCR) Parainfluenza 1 (PCR) Parainfluenza 2 (PCR) Parainfluenza 3 (PCR) Parainfluenza 4 (PCR) RSV (PCR) Entero/Rhino (PCR) SARS-CoV-2 RNA (RT-PCR) Blood Type Antibody Screen Crossmatch 04/11/22 04/12/22 04/12/22 11:44 06:28 06:28 WBC 12.8 H RBC 3.04 L Hgb 8.7 L 9.3 L Hct 25.9 L 28.1 L MCV 92.4 MCH 30.6 MCHC 33.1 RDW 14.6 Plt Count 246 MPV 9.1 L Immature Gran % (Auto) Neut % (Auto) Lymph % (Auto) [place] % (Auto) Eos % (Auto) Baso % (Auto) Lymph # (Auto) [place] # (Auto) Eos # (Auto) Baso # (Auto) Abs Immat Gran (auto) Absolute Neuts (auto) Absolute Nucleated RBC 0.020 H Nucleated RBC % (auto) 0.2 Smear Tech's Comments ESR PT INR APTT O2 Saturation ABG pH at Pt Temp ABG pCO2 at Pt Temp ABG pO2 at Pt Temp ABG HCO3 ABG Base Excess (Actual) VBG pH VBG pCO2 VBG pO2 VBG HCO3 VBG O2 Saturation VBG Base Excess Sodium 130 L Potassium 4.8 Chloride 105 Carbon Dioxide 24 Anion Gap 6 L BUN 12 Creatinine 0.58 Estim Creat Clear Calc 123.5 Estimated GFR > 60 POC Glucose Random Glucose 168 H Fasting Glucose Estimat Average Glucose Hgb A1c Fingerstick Hemoglobin A1c % Lactic Acid Lactic Acid F/U @ 2Hr Calcium 8.4 Phosphorus 3.7 Magnesium 1.6 Total Bilirubin Direct Bilirubin AST ALT Alkaline Phosphatase Ammonia Total Creatine Kinase Troponin I High Sens C-Reactive Protein Total Protein Albumin 3.1 L Triglycerides 143 Vitamin B1 Vitamin B12 Folate Procalcitonin TSH Urine Color Urine Appearance Urine pH Ur Specific [place] Urine Protein Urine Glucose (UA) Urine Ketones Urine Blood Urine Nitrite Ur Leukocyte Esterase Urine RBC Urine WBC Ur Squamous Epith Cells Urine Bacteria Hyaline Casts Urine Creatinine CSF Tube Number CSF Volume CSF Appearance CSF Color CSF WBC CSF RBC CSF Neutrophils CSF Lymphocytes CSF Appearance (b) CSF Glucose CSF Total Protein CSF C.neoform/gat PCR CSF CMV DNA (PCR) CSF Enterovirus (PCR) CSF E. coli K1 (PCR) CSF H. influenzae (PCR) CSF HSV I (PCR) CSF HSV II (PCR) CSF HHV 6 (PCR) CSF L.monocytogenes PCR CSF N. meningitidis PCR CSF Parechovirus (PCR) CSF S. agalactiae (PCR) CSF S. pneumoniae (PCR) CSF VZV (PCR) Nasal Screen MRSA (PCR) Nasal S. aureus Screen Nasal MRSA/S.aureus Interp Stool Occult Blood Vancomycin Trough Random Vancomycin Urine Opiates Screen Urine Fentanyl Screen Ur Barbiturates Screen Phenytoin Ur Phencyclidine Scrn Ur Amphetamines Screen U Benzodiazepines Scrn Urine Cocaine Screen U Marijuana (THC) Screen Ethyl Alcohol Respiratory Panel Peter T.pallidum Ab (EIA) Adenovirus (Rapid PCR) B.pert (TEM-PCR) B.parapertussis DNA PCR C. pneumoniae DNA (PCR) C. difficile Tox B Gene Coronavirus OC43 (PCR) Coronavirus HKU1 (PCR) Coronavirus 229E (PCR) COVID-19 (KATELYNN) COVID-19 Clin Com Coronavirus NL63 (PCR) HIV 1&2 Ab/P24 Ag 4thGn Human Metapneumovir PCR Influenza A (RT-PCR) Influenza B (RT-PCR) M. pneumoniae (PCR) Parainfluenza 1 (PCR) Parainfluenza 2 (PCR) Parainfluenza 3 (PCR) Parainfluenza 4 (PCR) RSV (PCR) Entero/Rhino (PCR) SARS-CoV-2 RNA (RT-PCR) Blood Type Antibody Screen Crossmatch 04/13/22 04/13/22 04/13/22 07:14 07:14 08:45 WBC 13.4 H RBC 3.38 L Hgb 10.1 L Hct 31.4 L MCV 92.9 MCH 29.9 MCHC 32.2 RDW 15.6 Plt Count 258 MPV 9.1 L Immature Gran % (Auto) 1.1 H Neut % (Auto) 71.5 Lymph % (Auto) 17.1 L [place] % (Auto) 8.4 Eos % (Auto) 1.7 Baso % (Auto) 0.2 Lymph # (Auto) 2.3 [place] # (Auto) 1.1 Eos # (Auto) 0.2 Baso # (Auto) 0.0 Abs Immat Gran (auto) 0.15 H Absolute Neuts (auto) 9.6 H Absolute Nucleated RBC 0.000 Nucleated RBC % (auto) 0.0 Smear Tech's Comments ESR PT INR APTT O2 Saturation ABG pH at Pt Temp ABG pCO2 at Pt Temp ABG pO2 at Pt Temp ABG HCO3 ABG Base Excess (Actual) VBG pH VBG pCO2 VBG pO2 VBG HCO3 VBG O2 Saturation VBG Base Excess Sodium 134 L Potassium 5.1 Chloride 105 Carbon Dioxide 24 Anion Gap 10 L BUN 14 Creatinine 0.58 Estim Creat Clear Calc 123.5 Estimated GFR > 60 POC Glucose Random Glucose 154 H Fasting Glucose Estimat Average Glucose Hgb A1c Fingerstick Hemoglobin A1c % Lactic Acid Lactic Acid F/U @ 2Hr Calcium 8.4 Phosphorus 4.1 Magnesium 2.1 Total Bilirubin Direct Bilirubin AST ALT Alkaline Phosphatase Ammonia Total Creatine Kinase Troponin I High Sens C-Reactive Protein Total Protein Albumin 3.2 L D Triglycerides 70 Vitamin B1 Vitamin B12 Folate Procalcitonin TSH Urine Color Urine Appearance Urine pH Ur Specific [place] Urine Protein Urine Glucose (UA) Urine Ketones Urine Blood Urine Nitrite Ur Leukocyte Esterase Urine RBC Urine WBC Ur Squamous Epith Cells Urine Bacteria Hyaline Casts Urine Creatinine CSF Tube Number CSF Volume CSF Appearance CSF Color CSF WBC CSF RBC CSF Neutrophils CSF Lymphocytes CSF Appearance (b) CSF Glucose CSF Total Protein CSF C.neoform/gat PCR CSF CMV DNA (PCR) CSF Enterovirus (PCR) CSF E. coli K1 (PCR) CSF H. influenzae (PCR) CSF HSV I (PCR) CSF HSV II (PCR) CSF HHV 6 (PCR) CSF L.monocytogenes PCR CSF N. meningitidis PCR CSF Parechovirus (PCR) CSF S. agalactiae (PCR) CSF S. pneumoniae (PCR) CSF VZV (PCR) Nasal Screen MRSA (PCR) Nasal S. aureus Screen Nasal MRSA/S.aureus Interp Stool Occult Blood Vancomycin Trough Random Vancomycin Urine Opiates Screen Urine Fentanyl Screen Ur Barbiturates Screen Phenytoin Ur Phencyclidine Scrn Ur Amphetamines Screen U Benzodiazepines Scrn Urine Cocaine Screen U Marijuana (THC) Screen Ethyl Alcohol Respiratory Panel Peter T.pallidum Ab (EIA) Adenovirus (Rapid PCR) B.pert (TEM-PCR) B.parapertussis DNA PCR C. pneumoniae DNA (PCR) C. difficile Tox B Gene Coronavirus OC43 (PCR) Coronavirus HKU1 (PCR) Coronavirus 229E (PCR) COVID-19 (KATELYNN) COVID-19 Clin Com Coronavirus NL63 (PCR) HIV 1&2 Ab/P24 Ag 4thGn Human Metapneumovir PCR Influenza A (RT-PCR) Influenza B (RT-PCR) M. pneumoniae (PCR) Parainfluenza 1 (PCR) Parainfluenza 2 (PCR) Parainfluenza 3 (PCR) Parainfluenza 4 (PCR) RSV (PCR) Entero/Rhino (PCR) SARS-CoV-2 RNA (RT-PCR) Blood Type Antibody Screen Crossmatch 04/14/22 04/14/22 04/14/22 07:23 07:23 07:23 WBC 15.2 H RBC 3.25 L Hgb 9.9 L Hct 30.5 L MCV 93.8 MCH 30.5 MCHC 32.5 RDW 16.1 H Plt Count 261 MPV 9.0 L Immature Gran % (Auto) Neut % (Auto) Lymph % (Auto) [place] % (Auto) Eos % (Auto) Baso % (Auto) Lymph # (Auto) [place] # (Auto) Eos # (Auto) Baso # (Auto) Abs Immat Gran (auto) Absolute Neuts (auto) Absolute Nucleated RBC 0.000 Nucleated RBC % (auto) 0.0 Smear Tech's Comments ESR PT INR APTT O2 Saturation ABG pH at Pt Temp ABG pCO2 at Pt Temp ABG pO2 at Pt Temp ABG HCO3 ABG Base Excess (Actual) VBG pH VBG pCO2 VBG pO2 VBG HCO3 VBG O2 Saturation VBG Base Excess Sodium 134 L 134 L Potassium 4.9 4.8 Chloride 105 105 Carbon Dioxide 23 24 Anion Gap 11 L 10 L BUN 15 15 Creatinine 0.60 0.58 Estim Creat Clear Calc 119.4 123.5 Estimated GFR > 60 > 60 POC Glucose Random Glucose 140 H 138 H Fasting Glucose Estimat Average Glucose Hgb A1c Fingerstick Hemoglobin A1c % Lactic Acid Lactic Acid F/U @ 2Hr Calcium 8.3 L 8.3 L Phosphorus 3.2 Magnesium 1.8 Total Bilirubin Direct Bilirubin AST ALT Alkaline Phosphatase Ammonia Total Creatine Kinase Troponin I High Sens C-Reactive Protein Total Protein Albumin 3.0 L Triglycerides Vitamin B1 Vitamin B12 Folate Procalcitonin TSH Urine Color Urine Appearance Urine pH Ur Specific [place] Urine Protein Urine Glucose (UA) Urine Ketones Urine Blood Urine Nitrite Ur Leukocyte Esterase Urine RBC Urine WBC Ur Squamous Epith Cells Urine Bacteria Hyaline Casts Urine Creatinine CSF Tube Number CSF Volume CSF Appearance CSF Color CSF WBC CSF RBC CSF Neutrophils CSF Lymphocytes CSF Appearance (b) CSF Glucose CSF Total Protein CSF C.neoform/gat PCR CSF CMV DNA (PCR) CSF Enterovirus (PCR) CSF E. coli K1 (PCR) CSF H. influenzae (PCR) CSF HSV I (PCR) CSF HSV II (PCR) CSF HHV 6 (PCR) CSF L.monocytogenes PCR CSF N. meningitidis PCR CSF Parechovirus (PCR) CSF S. agalactiae (PCR) CSF S. pneumoniae (PCR) CSF VZV (PCR) Nasal Screen MRSA (PCR) Nasal S. aureus Screen Nasal MRSA/S.aureus Interp Stool Occult Blood Vancomycin Trough Random Vancomycin Urine Opiates Screen Urine Fentanyl Screen Ur Barbiturates Screen Phenytoin Ur Phencyclidine Scrn Ur Amphetamines Screen U Benzodiazepines Scrn Urine Cocaine Screen U Marijuana (THC) Screen Ethyl Alcohol Respiratory Panel Peter T.pallidum Ab (EIA) Adenovirus (Rapid PCR) B.pert (TEM-PCR) B.parapertussis DNA PCR C. pneumoniae DNA (PCR) C. difficile Tox B Gene Coronavirus OC43 (PCR) Coronavirus HKU1 (PCR) Coronavirus 229E (PCR) COVID-19 (KATELYNN) COVID-19 Clin Com Coronavirus NL63 (PCR) HIV 1&2 Ab/P24 Ag 4thGn Human Metapneumovir PCR Influenza A (RT-PCR) Influenza B (RT-PCR) M. pneumoniae (PCR) Parainfluenza 1 (PCR) Parainfluenza 2 (PCR) Parainfluenza 3 (PCR) Parainfluenza 4 (PCR) RSV (PCR) Entero/Rhino (PCR) SARS-CoV-2 RNA (RT-PCR) Blood Type Antibody Screen Crossmatch 04/15/22 04/15/22 06:37 06:38 WBC RBC Hgb Hct MCV MCH MCHC RDW Plt Count MPV Immature Gran % (Auto) Neut % (Auto) Lymph % (Auto) [place] % (Auto) Eos % (Auto) Baso % (Auto) Lymph # (Auto) [place] # (Auto) Eos # (Auto) Baso # (Auto) Abs Immat Gran (auto) Absolute Neuts (auto) Absolute Nucleated RBC Nucleated RBC % (auto) Smear Tech's Comments ESR PT 14.3 H INR 1.2 H APTT O2 Saturation ABG pH at Pt Temp ABG pCO2 at Pt Temp ABG pO2 at Pt Temp ABG HCO3 ABG Base Excess (Actual) VBG pH VBG pCO2 VBG pO2 VBG HCO3 VBG O2 Saturation VBG Base Excess Sodium 134 L Potassium 4.5 Chloride 104 Carbon Dioxide 22 Anion Gap 13 BUN 15 Creatinine 0.56 Estim Creat Clear Calc 128.0 Estimated GFR > 60 POC Glucose Random Glucose 134 H Fasting Glucose Estimat Average Glucose Hgb A1c Fingerstick Hemoglobin A1c % Lactic Acid Lactic Acid F/U @ 2Hr Calcium 8.4 Phosphorus 3.5 Magnesium 1.7 Total Bilirubin Direct Bilirubin AST ALT Alkaline Phosphatase Ammonia Total Creatine Kinase Troponin I High Sens C-Reactive Protein Total Protein Albumin 3.0 L Triglycerides Vitamin B1 Vitamin B12 Folate Procalcitonin TSH Urine Color Urine Appearance Urine pH Ur Specific [place] Urine Protein Urine Glucose (UA) Urine Ketones Urine Blood Urine Nitrite Ur Leukocyte Esterase Urine RBC Urine WBC Ur Squamous Epith Cells Urine Bacteria Hyaline Casts Urine Creatinine CSF Tube Number CSF Volume CSF Appearance CSF Color CSF WBC CSF RBC CSF Neutrophils CSF Lymphocytes CSF Appearance (b) CSF Glucose CSF Total Protein CSF C.neoform/gat PCR CSF CMV DNA (PCR) CSF Enterovirus (PCR) CSF E. coli K1 (PCR) CSF H. influenzae (PCR) CSF HSV I (PCR) CSF HSV II (PCR) CSF HHV 6 (PCR) CSF L.monocytogenes PCR CSF N. meningitidis PCR CSF Parechovirus (PCR) CSF S. agalactiae (PCR) CSF S. pneumoniae (PCR) CSF VZV (PCR) Nasal Screen MRSA (PCR) Nasal S. aureus Screen Nasal MRSA/S.aureus Interp Stool Occult Blood Vancomycin Trough Random Vancomycin Urine Opiates Screen Urine Fentanyl Screen Ur Barbiturates Screen Phenytoin Ur Phencyclidine Scrn Ur Amphetamines Screen U Benzodiazepines Scrn Urine Cocaine Screen U Marijuana (THC) Screen Ethyl Alcohol Respiratory Panel Peter T.pallidum Ab (EIA) Adenovirus (Rapid PCR) B.pert (TEM-PCR) B.parapertussis DNA PCR C. pneumoniae DNA (PCR) C. difficile Tox B Gene Coronavirus OC43 (PCR) Coronavirus HKU1 (PCR) Coronavirus 229E (PCR) COVID-19 (KATELYNN) COVID-19 Clin Com Coronavirus NL63 (PCR) HIV 1&2 Ab/P24 Ag 4thGn Human Metapneumovir PCR Influenza A (RT-PCR) Influenza B (RT-PCR) M. pneumoniae (PCR) Parainfluenza 1 (PCR) Parainfluenza 2 (PCR) Parainfluenza 3 (PCR) Parainfluenza 4 (PCR) RSV (PCR) Entero/Rhino (PCR) SARS-CoV-2 RNA (RT-PCR) Blood Type Antibody Screen Crossmatch Assessment and Plan Final Anesthetic Review Family History of Problems with Anesthesia: No History of Problems with Anesthesia: Unobtainable
--- NOTE | 2022-04-15 14:12 | MHC.CM.PN ---
Per MD rounds Discharge 1-2 days. Patient is scheduled for PEG placement today. DANA Mendoza via BLS. Discharge is anticipated in the next 1-2 days
--- NOTE | 2022-04-15 15:43 | MHC.SLORD ---
Addendum entered and electronically signed by Alison Hunter MA, CCC-[facility] 04/15/22 16:41: D.S. Original Note: Speech Language Pathology Order Status: Pt not seen by [facility] d/t PEG surgery scheduled for today. [facility] will continue to follow.
[2022-04-15] MEDS: Fat Emulsions 20% 250 ML 23 ML IV ×2 (17:31→23:18)
[2022-04-15] MEDS: Morphine Sulfate 4 MG/ML CARTRIDGE 3 MG IVPUSH (23:33)
[2022-04-15] MEDS: Acetaminophen Supp 650 MG SUPP.RECT PR (23:36)
[2022-04-16] VITALS (9 sets, daily range): BP systolic 110–158; BP diastolic 63–79; PULSE 90–94; RESP 15–20; TEMP 36.1–37.1; O2SAT 94–99; BMI 23.8
[2022-04-16] MEDS: Pantoprazole Sodium 40 MG/10 ML VIAL IVPUSH ×2 (05:55→15:34)
[2022-04-16 07:27] LABS: MANUAL DIFF FLAG NO
[2022-04-16 07:34] LABS: Basophils Percent Auto 0.2 % (0-2); Eosinophils Absolute Auto 0.3 X10*3/uL (0.0-0.4); Hematocrit 30.7 % (42.0-52.0); Hemoglobin 9.9 g/dl (14.0-18.0); Imm Gran Abs Auto 0.15 X10*3/uL (0.00-0.03); Imm Gran Pct Auto 0.9 % (0.0-0.4); Lymphocytes Absolute Auto 2.2 X10*3/uL (1.2-4.9); Lymphocytes Percent Auto 13.7 % (20-40); Mean Corpuscular HGB Conc 32.2 g/dl (31.0-36.0); Mean Platelet Volume 8.8 fL (9.4-12.4); Monocytes Absolute Auto 1.3 X10*3/uL (0.1-1.2); Monocytes Percent Auto 8.1 % (2-11); Neutrophils Absolute Auto 12.2 x10*3/uL (2.0-8.3); Neutrophils Percent Auto 75.1 % (45-73); Platelet Count 282 X10*3/uL (160-400); Red Cell Distribution Width 15.8 % (11.0-16.0); White Blood Count 16.3 X10*3/uL (4.8-10.8)
[2022-04-16] MEDS: Heparin Sodium,Porcine Flush 50 UNITS, 0.9 % Sodium Chloride Flush 5 ML IVFLUSH ×3 (07:34→23:10)
[2022-04-16] MEDS: 0.9 % Sodium Chloride Flush 3 ML SYRINGE IVFLUSH ×3 (07:34→23:11)
[2022-04-16] MEDS: Chlorhexidine Gluc Oral Rinse 15 ML MOUTHWASH BUCCAL (07:38)
[2022-04-16] MEDS: levETIRAcetam in NaCl (iso-os) 500 MG/100 ML PIGGYBACK 400 MG IV ×2 (07:38→21:06)
[2022-04-16 07:54] LABS: Anion Gap 12 (12-20); Blood Urea Nitrogen 14 mg/dL (9-16); Calcium 8.2 mg/dL (8.4-10.2); Carbon Dioxide 24 mmol/L (22-29); Chloride 104 mmol/L (96-108); Creatinine Clr Calc Pharmacy 125.7; Estimated Glomerular Filt Rate > 60; Glucose Random 142 mg/dL (60-115); Magnesium 1.9 mg/dL (1.6-2.6); Phosphorus 3.5 mg/dL (2.7-4.5); Potassium 4.5 mmol/L (3.3-5.1); Sodium 135 mmol/L (135-145)
--- NOTE | 2022-04-16 08:05 | PM.PNGS ---
Subjective Subjective Date of Service: 04/16/22 <Georgina Montejo PA-C - Last Filed: 04/16/22 08:09> 04/16/22 <Portillo Aburto MD - Last Filed: 04/16/22 14:20> Interval history: Mental status unchanged, nonverbal. <MARCO Joshua Last Filed: 04/16/22 08:09> Physical Exam Vital Signs: Vital Signs: Last Vital Signs Temp 97.9 F 04/16/22 07:24 Pulse 91 04/16/22 07:24 Resp 20 04/16/22 07:24 BP 110/65 04/16/22 07:24 Pulse Ox 97 04/16/22 07:24 O2 Del Method 04/16/22 07:24 O2 Flow Rate 4 04/15/22 13:25 FiO2 94 03/14/22 20:00 Oxygen Flow Rate 0 04/13/22 14:00 BMI result Body Mass Index 23.8 <Georgina Montejo PA-C - Last Filed: 04/16/22 08:09> Const: General: no acute distress <Georgina Montejo PA-C - Last Filed: 04/16/22 08:09> Resp: Effort & Inspection: normal respiratory effort <MARCO Joshua Last Filed: 04/16/22 08:09> GI: Other: PEG tube in place <Georgina Montejo PA-C - Last Filed: 04/16/22 08:09> Inspection: No distended <MARCO Joshua Last Filed: 04/16/22 08:09> Palpation (GI): Soft to palpation, Tenderness to palpation present (GI) (PEG tube site), no guarding and not rigid <MARCO Joshua Last Filed: 04/16/22 08:09> Percussion: Yes normal to percussion <MARCO Joshua Last Filed: 04/16/22 08:09> Skin: General skin exam: no rashes or lesions noted <MARCO Joshua Last Filed: 04/16/22 08:09> Objective Data Active Medications Acetaminophen (Acetaminophen Supp 650 Mg Supp.Rect) 650 mg ND Q6H PRN PRN Reason: fever Last Admin: 04/15/22 23:36 Dose: 650 mg Documented By: SUREKHA Albuterol Sulfate (Albuterol Sulfate (0.083%) 2.5 Mg/3 Ml Vial.Neb) 2.5 mg INHALE ONCE PRN PRN Reason: Wheezing Chlorhexidine Gluconate (Chlorhexidine Gluc Oral Rinse 15 Ml Mouthwash) 15 ml BUCCAL DAILY [facility] Last Admin: 04/16/22 07:38 Dose: 15 ml Documented By: MICHAEL Heparin Sodium (Porcine) 50 (units/ Sodium Chloride 5 ml) [facility] Last Admin: 04/16/22 07:34 Dose: 50 unit Documented By: MICHAEL Levetiracetam (Keppra) 500 mg in 100 mls @ 400 mls/hr IV BID [facility] Last Admin: 04/16/22 07:38 Dose: 400 mls/hr Documented By: MICHAEL Sodium Chloride 100 meq/Magnesium Sulfate 10 meq/Potassium Phosphate 20 mmol/Calcium Gluconate 9.3 meq/Sodium Acetate 80 meq/Potassium Acetate 70 meq/Multivitamins 10 ml/ Trace Metals 1 ml/ Amino Acids/Dextrose 2,000 mls @ 83.333 mls/hr IV DAILY@1800 [facility] Stop: 04/16/22 17:59 Last Admin: 04/15/22 17:59 Dose: 83.33 mls/hr Documented By: MICHAEL Morphine Sulfate (Morphine Sulfate 4 Mg/Ml Cartridge) 3 mg IVPUSH Q3H PRN; Protocol PRN Reason: Pain, Severe (Pain Scale 7-10) Last Admin: 04/15/22 23:33 Dose: 3 mg Documented By: SUREKHA Pantoprazole Sodium (Pantoprazole Sodium 40 Mg/10 Ml Vial) 40 mg IVPUSH BID@0630,1630 [facility] Last Admin: 04/16/22 05:55 Dose: 40 mg Documented By: SUREKHA Sodium Chloride (0.9 % Sodium Chloride Flush 3 Ml Syringe) [facility] Last Admin: 04/16/22 07:34 Dose: 3 ml Documented By: MICHAEL Montejo PA-C - Last Filed: 04/16/22 08:09> Labs CBC & Chem 7: : 04/16/22 07:00 04/16/22 07:00 <Georgina Montejo PA-C - Last Filed: 04/16/22 08:09> Labs: Laboratory Results - last 24 hr 04/16/22 04/16/22 07:00 07:00 MCV 93.0 MCH 30.0 MCHC 32.2 RDW 15.8 Plt Count 282 MPV 8.8 L Immature Gran % (Auto) 0.9 H Neut % (Auto) 75.1 H Lymph % (Auto) 13.7 L [place] % (Auto) 8.1 Eos % (Auto) 2.0 Baso % (Auto) 0.2 Lymph # (Auto) 2.2 [place] # (Auto) 1.3 H Eos # (Auto) 0.3 Baso # (Auto) 0.0 Abs Immat Gran (auto) 0.15 H Absolute Neuts (auto) 12.2 H Absolute Nucleated RBC 0.000 Nucleated RBC % (auto) 0.0 Anion Gap 12 Estim Creat Clear Calc 125.7 Estimated GFR > 60 Random Glucose 142 H Calcium 8.2 L Phosphorus 3.5 Magnesium 1.9 Albumin 3.0 L <Georgina Montejo PA-C - Last Filed: 04/16/22 08:09> Procedures Date of Service Date of Service: 04/16/22 <Georgina Montejo PA-C - Last Filed: 04/16/22 08:09> Progress Note: A&P Assessment and plan (1) Dysphagia: Status: Acute <Georgina Montejo PA-C - Last Filed: 04/16/22 08:09> (2) S/P percutaneous endoscopic gastrostomy (PEG) tube placement: Status: Acute <Georgina Montejo PA-C - Last Filed: 04/16/22 08:09> Assessment and Plan: Abdomen soft Dressings dry Okay to start feeds today Keep external bolster snug on the abdominal wall Seen and examined independently <Portillo Aburto MD - Last Filed: 04/16/22 14:20> Assessment and Plan: 66 year old with multiple acute medical issues including dysphagia, malnutrition now POD #1 s/p PEG tube placement. PEG tube in place, abd exam benign with mild tenderness. Can begin to use PEG tube, tube feeds as tolerated. <Georgina Montejo PA-C - Last Filed: 04/16/22 08:09> Time Spent With Patient Time: Total time spent is greater than 50% in coordination of care (as documented) at patient's floor/unit and/or counseling patient: <Georgina Montejo PA-C - Last Filed: 04/16/22 08:09> Quality Stroke Does the patient have a stroke diagnosis?: No <Georgina Montejo PA-C - Last Filed: 04/16/22 08:09> VTE Prior VTE?: No <Georgina Montejo PA-C - Last Filed: 04/16/22 08:09> VTE Risk Level:: Medical - moderate - high <Georgina Montejo PA-C - Last Filed: 04/16/22 08:09> VTE Device Contraindication: Treatment Not Indicated <Georgina Montejo PA-C - Last Filed: 04/16/22 08:09> VTE Drug Contraindication: N/A - Med Ordered <Georgina Montejo PA-C - Last Filed: 04/16/22 08:09>
--- NOTE | 2022-04-16 11:32 | MHC.CLN ---
F/U: PT TO START NEW TF TODAY DISCUSSED WITH EXERCISER RECOMMEND JEVITY AT MAX GOAL RATE 70ML/HR WITH 30ML PROSOURCE Q DAY AND 120ML FREE WATER FLUSHES Q 6 HRS TO PROVIDE 1968TOTAL KCALS (27KCALS/KG), 95G TOTAL PROTEIN (1.3G/KG FOR HEALING), 2073ML TOTAL WATER FROM FORMULA AND FLUSHES (28ML/KG) START TF AT 20ML/HR AND INCREASE BY 10ML Q 4 HRS UNTIL MAX GOAL IS ACHIEVED CHECK RESIDUALS Q 4 HRS AND HOLD IF >250ML MONITOR TOLERANCE, RESIDUALS AND LYTES
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
--- NOTE | 2022-04-16 14:12 | HO.POSTANES ---
Post Anesthesia Evaluation Post Anesthesia Evaluation Vital Signs: Vital Signs Temp Pulse Resp BP Pulse Ox O2 Del Method 04/16/22 13:57 99 Room Air 04/16/22 11:27 98.8 F 91 18 152/72 H 99 Room Air 04/16/22 07:24 97.9 F 91 20 110/65 97 Room Air 04/16/22 03:49 97.7 F 94 16 143/72 H 96 Room Air Anesthesia: General Mental Status: Awake (nonverbal) Pain Control: Satisfactory Nausea/Vomiting: None Hydration: Adequate Anesthesia-Related Issues: No Anes. Related Issues
[2022-04-16] MEDS: Morphine Sulfate 4 MG/ML CARTRIDGE 3 MG IVPUSH (15:34)
--- NOTE | 2022-04-17 00:31 | PC.NURSE ---
Per order, tube feed Jevity increased to 40mls/hr at 2300. Residual checked; 10 mls. Water flush with 120 mls. Patient tolerated well.
[2022-04-17 04:00] VITALS: BP 138/64; PULSE 88; RESP 18; TEMP 37.1; O2SAT 98
[2022-04-17 06:00] VITALS: BMI 23.5
[2022-04-17 07:30] VITALS: BP 141/87; PULSE 97; RESP 20; TEMP 36.8; O2SAT 98
[2022-04-17] MEDS: Chlorhexidine Gluc Oral Rinse 15 ML MOUTHWASH BUCCAL (08:50)
[2022-04-17] MEDS: 0.9 % Sodium Chloride Flush 3 ML SYRINGE IVFLUSH (08:51)
[2022-04-17] MEDS: Heparin Sodium,Porcine Flush 50 UNITS, 0.9 % Sodium Chloride Flush 5 ML IVFLUSH (08:51)
[2022-04-17] MEDS: levETIRAcetam in NaCl (iso-os) 500 MG/100 ML PIGGYBACK 400 MG IV (08:51)
--- NOTE | 2022-04-17 10:47 | MHC.SL.SWA ---
Speech Pathologist Impression: Oropharyngeal phase dysphagia Risk of Aspiration Due to: Neurological Condition Reduced Cognition Dysphasia Diet Status: No Change Liquid Consistency and Strategies for Safe Swallow: Liquid Intake Recommendation: NPO Solid Food Consistency: Dietary Recommendations: NPO Oral Medication Intake: NPO Please contact the pharmacy regarding appropriate crushable or liquid drug formulations that are available whenever modified delivery is recommended. Supervision While Eating and Drinking for Safe Swallow: PO with HIGH SCHOOL GUIDANCE COUNSELOR Swallowing Recommended Treatments: Continue dysphagia treatment Recommendation for Speech: Inpatient Speech Therapy Speech Therapy at Next Level of Care Campaign Coordinator Clinican/Clinical Fellow: Yes: Blanco Hogan Supervisory Statement: I have reviewed and agree with the student/clinical fellow's documentation: N/A Speech Language Pathologist: Alison Hunter M.A., CCC-HIGH SCHOOL GUIDANCE COUNSELOR
--- NOTE | 2022-04-17 10:53 | MHC.CLN ---
F/U: S/P TF PLACEMENT PT CURRENTLY TOLERATING FEEDING AT 40ML/HR AND SLOWLY INCREASING TO GOAL PT'S GOAL JEVITY AT 70ML/HR WITH 30ML PROSOURCE Q DAY AND 120ML FREE WATER FLUSHES Q 6 HRS TO PROVIDE 1968TOTAL KCALS (27KCALS/KG), 95G TOTAL PROTEIN (1.3G/KG FOR HEALING), 2073ML TOTAL WATER FROM FORMULA AND FLUSHES (28ML/KG) MONITOR TOLERANCE, RESIDUALS AND LYTES
[2022-04-17 11:22] VITALS: BP 178/81; PULSE 100; RESP 20; TEMP 36.7; O2SAT 98
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
[2022-04-17 14:00] VITALS: O2SAT 99
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
--- NOTE | 2022-04-17 14:59 | MHC.CM.PN ---
IMM 04/16/22 Patient has accepted a bed offer HCP Ashwin @ [facility]. 4 days of TF have been provided to the facility. All dc info has been sent to the facility. BLS is booked for 6pm.
[2022-04-17 15:24] VITALS: BP 140/75; PULSE 92; RESP 16; TEMP 36.9; O2SAT 97
--- NOTE | 2022-04-17 17:01 | PC.NURSE ---
Addendum entered by Pina Moody RN 04/17/22 18:37: EMS to transport pt, [facility] called and report given to RN. Original Note: report received from overnight RN, medical billing instructor per JUL. Tube feed running. Pt due to discharge today, COVID swab sent to lab per orders. at bedside to remove PICC line.
[2022-04-17 17:27] LABS: COVID-19 Test Negative (Negative); IDNOW Serial# BCCEAD1C
--- NOTE | 2022-04-17 20:41 | PC.NURSE ---
PT D/C'D TO [facility] BY AMBULANCE AT 1930. PT AWAKE AND ALERT AT TIME OF TRANSFER IN NO ACUTE DISTRESS. TUBE FEEDS OFF. TO RESUME AT [facility].
== END 2022-04-17 19:30 | disposition skilled nursing facility (03) | DRG 853 ==
LOC: HO.ED 14:19 → HO.EDOVER 15:42 → HO.IMC 16:55 → HO.ICU 04-10 14:47 → HO.IMC 04-11 16:48
PROVIDERS: Family Medicine; Hospitalist; Internal Medicine; Internal Medicine Pulmonary Disease; Nurse Practitioner Acute Care; Physician Assistant Medical; Radiology Diagnostic Radiology; Surgery; Surgery Vascular Surgery; Admitting Provider Physician Assistant; Emergency Provider Emergency Medicine Emergency Medical Services; Visit Provider Internal Medicine
PROC: 009U3ZZ Drainage of Spinal Canal, Percutaneous Approach (ICD-10-PCS; CPT 62270; principal; 2022-03-23 13:30)
PROC: 0Y6D0Z1 Detachment at Left Upper Leg, High, Open Approach (ICD-10-PCS; CPT 27590; principal; 2022-04-07 11:40)
PROC: 0DH63UZ Insertion of Feeding Device into Stomach, Percutaneous Approach (ICD-10-PCS; CPT 43246; principal; 2022-04-15 11:20)
DX: A41.9 Sepsis, unspecified organism (principal); G04.2 Bacterial meningoencephalitis and meningomyelitis, not elsewhere classified; J69.0 Pneumonitis due to inhalation of food and vomit; R57.8 Other shock; G92.8 Other toxic encephalopathy; F10.139 Alcohol abuse with withdrawal, unspecified; F10.188 Alcohol abuse with other alcohol-induced disorder; N39.0 Urinary tract infection, site not specified; L03.116 Cellulitis of left lower limb; I42.9 Cardiomyopathy, unspecified; J44.1 Chronic obstructive pulmonary disease with (acute) exacerbation; B37.0 Candidal stomatitis; G40.509 Epileptic seizures related to external causes, not intractable, without status epilepticus; N17.9 Acute kidney failure, unspecified; E87.0 Hyperosmolality and hypernatremia; D62 Acute posthemorrhagic anemia; E46 Unspecified protein-calorie malnutrition; K92.1 Melena; Z66 Do not resuscitate; I16.0 Hypertensive urgency; Z86.19 Personal history of other infectious and parasitic diseases; F02.80 Dementia in other diseases classified elsewhere, unspecified severity, without behavioral disturbance, psychotic disturbance, mood disturbance, and anxiety; I73.9 Peripheral vascular disease, unspecified; Z20.822 Contact with and (suspected) exposure to COVID-19; G40.909 Epilepsy, unspecified, not intractable, without status epilepticus; L97.522 Non-pressure chronic ulcer of other part of left foot with fat layer exposed; B96.4 Proteus (mirabilis) (morganii) as the cause of diseases classified elsewhere; E87.6 Hypokalemia; E83.42 Hypomagnesemia; B95.2 Enterococcus as the cause of diseases classified elsewhere; Z68.23 Body mass index [BMI] 23.0-23.9, adult; F17.210 Nicotine dependence, cigarettes, uncomplicated; Z71.6 Tobacco abuse counseling; Z86.718 Personal history of other venous thrombosis and embolism; E78.5 Hyperlipidemia, unspecified; K21.9 Gastro-esophageal reflux disease without esophagitis; Z79.899 Other long term (current) drug therapy
CPT/HCPCS: 36415; 36573; 36600; 62328; 70450; 71045; 71250; 72125; 73560; 73620; 74176; 76775; 80048; 80051; 80053; 80076; 80185; 80202; 80307; 81001; 82040; 82077; 82140; 82272; 82550; 82565; 82607; 82746; 82803; 82945; 82947; 83036; 83605; 83735; 84100; 84145; 84157; 84295; 84425; 84443; 84478; 84484; 85014; 85018; 85025; 85027; 85610; 85652; 85730; 86140; 86780; 86850; 86900; 86901; 86923; 87015; 87040; 87070; 87086; 87088; 87186; 87205; 87389; 87483; 87493; 87633; 87635; 87640; 87641; 88307; 88311; 89051; 92526; 92610; 93005; 93926; 93970; 94640; 95816; 97162; 99285; C1751; C1758; J0295; J0610; J0690; J0696; J1335; J1642; J1650; J1953; J1956; J2250; J2270; J2543; J2560; J2795; J2920; J3010; J3370; J3411; J3430; J3475; P9016; P9047

== ENCOUNTER → 2022-03-03 14:50 | Outpatient (BNV) | payer MEDICARE, MEDICAID, SELFPAY | PROVIDERS: Admitting Provider Physician Assistant; Emergency Provider Emergency Medicine Emergency Medical Services; Visit Provider Internal Medicine Gastroenterology | DX: K92.2 Gastrointestinal hemorrhage, unspecified (principal); G93.40 Encephalopathy, unspecified | CPT/HCPCS: 99222 ==

== ENCOUNTER 2022-04-21 04:53 | Inpatient (IN) | payer MEDICARE, MEDICAID, SELFPAY ==
[2022-04-21] VITALS (25 sets, daily range): BP systolic 93–175; BP diastolic 56–84; PULSE 100–118; RESP 14–22; TEMP -12.6–38; O2SAT 94–100; BMI 22.4
--- NOTE | ~2022-04-21 | XR_ITS ---
EXAMINATION: XR CHEST CLINICAL INFORMATION: Chest pain COMPARISON: Chest 04/21/2022 TECHNIQUE: Frontal view of the chest was obtained. FINDINGS: The lungs are hypoexpanded with patchy opacity seen in the left lower lobe retrocardiac area similar to previous study. The left upper lung and the right lung remains clear. Previously seen right jugular central line and enteric tube have been removed. Heart size is borderline enlarged. Pulmonary vascularity is normal. There is a radiopaque shrapnel along the anterior chest wall. Also visualized are healed right posterior third through sixth rib fractures. XR/XR chest 1V IMPRESSION: Persistent left lower lobe retrocardiac opacity likely infiltrate or atelectasis, stable. Support lines and catheters have been removed since the last exam. Right posterior old healed rib fractures as described above.
--- NOTE | ~2022-04-21 | CT_ITS ---
EXAMINATION: CT HEAD WITHOUT CONTRAST (STROKE PROTOCOL) CLINICAL INFORMATION: Stroke protocol. Facial droop. COMPARISON: CT head 03/30/2022. TECHNIQUE: Contiguous axial imaging was performed from the skull base to vertex without intravenous administration of contrast. This CT examination was performed using dose optimization techniques as appropriate, variously including the following: *Automated exposure control *Adjustment of mA and/or kV according to patient size (this includes techniques or standardized protocols for targeted exams where dose is matched to indication/reason for exam; i.e. extremities or head) *Use of iterative reconstruction technique DLP: 724 mGy-cm FINDINGS: There is no evidence of acute intracranial hemorrhage or edematous territorial infarction. A few foci of hypoattenuation in the periventricular and deep white matter are consistent with mild microangiopathy. 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 Mineralization of the basal ganglia. Freed-white matter differentiation is preserved. Proportional prominence of the ventricles and sulcal spaces. No evidence for obstructive hydrocephalus. No abnormal mass effect or midline shift. No extra-axial fluid collections. No acute soft tissue or osseous abnormalities. Mild mucosal thickening of the paranasal sinuses with small air-fluid levels. The mastoids and middle ear cavities are clear. CT/CT head for stroke IMPRESSION: 1. No evidence of acute intracranial hemorrhage or edematous territorial infarction. 2. Paranasal sinus disease. 3. Chronic microangiopathy and generalized cerebral volume loss. This critical result was discussed with Immanuel Lowe at 04/22/2022 5:46 AM and it was ascertained that the content and urgency of the report was understood at the time of direct communication.
--- NOTE | ~2022-04-21 | XR_ITS ---
EXAMINATION: XR CHEST CLINICAL INFORMATION: Hypotension COMPARISON: 03/27/2022 TECHNIQUE: Frontal view of the chest was obtained. FINDINGS: Right internal jugular central venous catheter terminates near the cavoatrial junction. Radiopaque foreign body fragments overlie the right chest wall. Additional radiopaque densities overlie the distal left clavicle, unchanged. The lungs are well expanded. No consolidation. No edema or effusion. No pneumothorax. The cardiomediastinal silhouette is unchanged, with a calcified aorta. XR/XR chest 1V IMPRESSION: No acute pulmonary disease.
--- NOTE | ~2022-04-21 | CT_ITS ---
EXAMINATION: CT ABDOMEN AND PELVIS WITHOUT CONTRAST CLINICAL INFORMATION: Bacteremia COMPARISON: Previous renal ultrasound March [address] of the abdomen and pelvis February 2022 TECHNIQUE: Multidetector volumetric imaging was performed from the superior aspect of the liver through the pubic symphysis. Sagittal and coronal reformatted images were obtained on the technologist's workstation. This CT examination was performed using dose optimization techniques as appropriate, variously including the following: *Automated exposure control *Adjustment of mA and/or kV according to patient size (this includes techniques or standardized protocols for targeted exams where dose is matched to indication/reason for exam; i.e. extremities or head) *Use of iterative reconstruction technique DLP: 781 mGy-cm FINDINGS: LUNG BASES: There is airspace disease in the left lower lobe suggestive of pneumonia. Heart is enlarged. There is coronary artery calcification. LIVER, GALLBLADDER, AND BILIARY TREE: The liver is normal in size, shape, and attenuation. No focal hepatic lesion or biliary ductal dilatation is present. The gallbladder is upper normal in size. There is dependent high attenuation material in the gallbladder questionable for sludge. No definite gallstone. PANCREAS: Unremarkable. SPLEEN: Unremarkable. ADRENAL GLANDS: Unremarkable. KIDNEYS AND URETERS: Small calcifications in the kidneys, question representing vascular calcifications versus small stones. No hydronephrosis or ureteral dilatation. BLADDER: The bladder wall is slightly thickened. There is a small amount of air in the bladder. There may be some stranding of the perivesicular fat. There is a 2 cm left-sided bladder diverticulum. GASTROINTESTINAL TRACT: Fluid-filled small and large bowel suggestive of an ileus. Appendix not identified. No inflammatory changes in the right lower quadrant. G-tube in the stomach. ABDOMINAL WALL: Small umbilical and left inguinal hernia containing fat. LYMPH NODES: Normal. VASCULAR: Severe atherosclerotic disease. No aneurysm. PELVIC VISCERA: Unremarkable. OSSEOUS STRUCTURES: Degenerative changes of the spine. Periarticular soft tissue calcifications adjacent to the left hip joint suggestive of old trauma. CT/CT abdomen pelvis wo IV con IMPRESSION: Left lower lobe pneumonia. Small amount of air in the bladder. Clinical Correlation recommended i.e. has the patient then recently catheterized. Differential would include infection and fistula. The bladder wall may also be slightly thickened with mild stranding of the perivesicular fat. Upper normal-size gallbladder. Dependent increased attenuation in the gallbladder questionable for sludge. This could be better evaluated with ultrasound if clinically indicated. Fleischner guidelines were followed.
--- NOTE | ~2022-04-21 | XR_ITS ---
EXAMINATION: XR CHEST CLINICAL INFORMATION: NG tube placement COMPARISON: Previous chest x-ray from earlier the same day TECHNIQUE: Frontal view of the chest was obtained. FINDINGS: There is a right jugular line with tip projecting over the seen. There is a nasogastric tube with tip projecting over the stomach. Cardiac silhouette is slightly enlarged but stable. There may be atelectasis at the left lung base. The lungs are otherwise clear. There is no pleural effusion or pneumothorax. There are foreign bodies projecting over the right chest and left distal clavicle. There are right posterior fourth through sixth rib fractures that do not appear acute. There are degenerative changes of the spine. XR/XR chest 1V IMPRESSION: Satisfactory position of support line and tube.
--- NOTE | ~2022-04-21 | CT_ITS ---
EXAMINATION: CTA OF THE HEAD/NECK CLINICAL INFORMATION: Facial droop COMPARISON: Head CT from today TECHNIQUE: A routine non contrast head CT was performed earlier in the evening. This was followed by a 70 mL bolus of Omnipaque 350. Subsequent multidetector helical imaging was performed of the head and neck. Delayed post contrast imaging was also performed through the head. Multiplanar reformats and MIP were also obtained. Internal carotid artery stenoses are assessed in accordance with NASCET criteria unless otherwise indicated. This CT examination was performed using dose optimization techniques as appropriate, variously including the following: *Automated exposure control *Adjustment of mA and/or kV according to patient size (this includes techniques or standardized protocols for targeted exams where dose is matched to indication/reason for exam; i.e. extremities or head) *Use of iterative reconstruction technique DLP: 1494 mGy-cm. FINDINGS: CT HEAD: There is no evidence of acute intracranial hemorrhage or territorial infarction. No abnormal mass effect or midline shift is seen. Freed to white matter differentiation is well preserved. No extra-axial fluid collections are identified. No suspicious leptomeningeal or parenchymal enhancement on the post-contrast images. No hydrocephalus. Proportional prominence of the ventricles and sulcal spaces is consistent with mild volume loss. Patchy periventricular and deep white matter hypoattenuation is consistent with mild small vessel ischemic changes. The osseous structures and soft tissues are normal. The mastoid air cells are well aerated. Partially opacified left sphenoid sinus and bilateral maxillary sinuses. CTA NECK: The aortic arch is of normal caliber and the origins of the great vessels are patent without evidence of significant stenosis. 2 vessel branching configuration of the aortic arch with common origin of the innominate artery and left common carotid artery. The cervical portion of the vertebral arteries are patent bilaterally. There is mild luminal narrowing seen at the entry point of the left vertebral artery into the cervical canal secondary to atherosclerotic disease, for instance seen on series 6 image 506. No luminal irregularities in the common carotid arteries and the carotid bifurcations are patent bilaterally. There is calcific atherosclerotic disease at the origin of the internal carotid arteries, without flow-limiting stenosis. The cervical portion of the internal carotid arteries are of normal caliber. The laryngeal structures and pharyngeal mucosal spaces are unremarkable. The oral cavity appears normal. The parotid and submandibular glands are normal. No pathologically enlarged lymph nodes. The thyroid gland is unremarkable. Emphysema noted at the lung apices with bullous disease at the right apex.. Spinal alignment is maintained. Mild cervical spondylosis is noted. CTA HEAD: The intradural portion of the vertebral arteries are of normal caliber. The basilar, superior cerebellar, and posterior communicating arteries are patent. The posterior, middle, and anterior cerebral arteries are of normal caliber without evidence of significant luminal irregularity. No definite intracranial aneurysms. CT/CT angio head neck stroke IMPRESSION: 1. No acute vascular abnormality. No flow-limiting stenosis or large vessel occlusion. There is mild narrowing of the left vertebral artery as it enters the spinal canal. 2. No acute intracranial finding. Mild volume loss with small vessel ischemic change. This critical result was discussed with Immanuel Lawton MD by telephone at 04/22/2022 6:13 AM and it was ascertained that the content and urgency of the report was understood at the time of direct communication.
--- NOTE | 2022-04-21 05:02 | ECG_ITS ---
Test Reason : BLEED Blood Pressure : / mmHG Vent. Rate : 121 BPM Atrial Rate : 129 BPM P-R Int : 118 ms QRS Dur : 086 ms QT Int : 340 ms P-R-T Axes : 048 042 040 degrees QTc Int : 482 ms Artifact in tracing Sinus tachycardia Minimal voltage criteria for LVH, may be normal variant ( Sokolow-Maciel ) Borderline ECG When compared with ECG of 03-MAR-2022 09:41, No significant changes seen Referred By: Toney Dejesus Electronically Signed By:CLARENCE LARA
--- NOTE | 2022-04-21 05:04 | ED_ITS ---
HPI - GI Bleed General Chief complaint: GI Bleed Stated complaint: RECTAL BLEED Time Seen by Provider: 04/21/22 05:02 Source: EMS and RN notes reviewed Mode of arrival: EMS History of Present Illness HPI Narrative: Patient is 65 years old with past medical history of hypertension hyperlipidemia cardiomyopathy seizures history of DVT on Eliquis alcohol abuse upper GI bleed metabolic encephalopathy peripheral vascular disease with left AKA 1122 recently discharged on 04/17 after complicated course patient had upper GI bleed and rectal bleed during his last stay assumed to be from gastritis no endoscopy was done was given Protonix and blood transfusions and Eliquis was stopped but per records patient restarted on Eliquis since 04/17 at [facility] brought by EMS for rectal bleed and lethargic with blood pressure of 90 by 60 per EMS. On arrival large amount of dark red blood was noticed in the depends after arrival patient vomited coffee colored vomitus. Blood pressure improved to 145/81 with pulse rate of 100. Patient is nonverbal vitals per chart Related Data Home Medications Medication Instructions Recorded Confirmed tamsulosin 0.4 mg capsule 0.4 mg PO DAILY 04/01/20 03/03/22 Previous Rx's Medication Instructions Recorded amlodipine 10 mg tablet 10 mg feeding tube DAILY #30 tabs 04/17/22 atorvastatin 40 mg tablet 40 mg feeding tube BEDTIME #30 tabs 04/17/22 cholecalciferol (vitamin D3) 50 50 mcg feeding tube DAILY #30 caps 04/17/22 mcg (2,000 unit) capsule cyanocobalamin (vitamin B-12) 1,000 mcg feeding tube QAM #30 tabs 04/17/22 1,000 mcg tablet folic acid 1 mg tablet 1 mg feeding tube DAILY #30 tabs 04/17/22 levetiracetam 500 mg/5 mL 500 mg (5 mL) IV BID #125 mL 04/17/22 intravenous solution (Keppra) lisinopril 5 mg tablet 5 mg feeding tube DAILY #30 tabs 04/17/22 metoprolol tartrate 25 mg tablet 12.5 mg feeding tube BID #60 tabs 04/17/22 omeprazole magnesium 10 mg oral 20 mg feeding tube DAILY #30 ea 04/17/22 suspension,delayed release oxycodone 5 mg/5 mL oral solution 5 mg (5 mL) PO Q6H PRN pain (scale 04/17/22 score 7-10) #200 mL thiamine HCl (vitamin B1) 100 mg 100 mg feeding tube DAILY #30 tabs 04/17/22 tablet Allergies Allergy/AdvReac Type Severity Reaction Status Date / Time No Known Allergies Allergy Verified 04/07/22 13:53 [No Known Allergies*] Review of Systems Review of Systems: Yes Unobtainable due to mental status [facility] Past Medical History Medical History Alcohol abuse Blood per rectum Cardiomyopathy Cellulitis Dementia DVT (deep venous thrombosis) DVT of deep femoral vein GERD (gastroesophageal reflux disease) Hepatitis C antibody positive in blood Hypertension Seizure Surgical History No pertinent past surgical history Family History Family History Father No problems noted. Mother No problems noted. Brother Cancer Sister No problems noted. Social History Social History Household Members: Unknown / Unable to assess Housing: Unknown / Unable to assess Unable to assess alcohol history related to: Unable to respond Alcohol intake: current Alcohol intake frequency: a few times a week Alcohol type: beer Patient Tobacco Use Status: Tobacco use Unknown Cigarettes Per Day: 7 Substance Use Type: Unknown Advance Directives: Yes Advance Directives on File: Yes Advance Directives Date on File: 10/11/20 service: No Current occupational status: unemployed and disabled Physical Exam Vital Signs: Vital Signs: Last Vital Signs Temp 97.6 F 04/21/22 06:46 Pulse 115 H 04/21/22 06:46 Resp 17 04/21/22 06:46 BP 116/59 L 04/21/22 06:46 Pulse Ox 98 04/21/22 06:46 O2 Del Method 04/21/22 06:46 O2 Flow Rate 2.5 04/21/22 06:46 BMI result Body Mass Index 22.4 Appearance: Lethargic. Minimal responsive Eyes: PERRLA, No Nystagmus ENT: Pharynx normal. Oral Mucosa moist Neck: Normal inspection. Neck supple. CVS: Normal heart rate and rhythm. Pulses normal. Respiratory: No respiratory distress. Equal air entry bilateral, no wheezing/rales/rhonchi Abdomen: Soft and nontender. Bowel sounds are present, no mass palpable, no CVA tenderness Skin: Skin warm and dry. Normal skin color. Normal skin turgor. Extremities: No lower extremity edema. No calf tenderness left AKA Neuro: Lethargic easily arousable minimal extremity movements left AKA Medications Administered Generic Name Dose Route Start Last Admin Trade Name Freq PRN Reason Stop Dose Admin Pantoprazole Sodium 80 mg/ 100 mls @ 10 mls/hr 04/21/22 05:45 04/21/22 05:53 Sodium Chloride IV 8 mg/hr .Q10H MILAGROS 10 mls/hr Administration 8 MG/HR Discontinued Medications Generic Name Dose Route Start Last Admin Trade Name Freq PRN Reason Stop Dose Admin Sodium Chloride 1,000 mls @ 999 mls/hr 04/21/22 05:02 04/21/22 06:17 Ns IV 04/21/22 06:02 Infused .Q1H1M ONE Infusion Sodium Chloride 1,000 mls @ 999 mls/hr 04/21/22 05:35 04/21/22 06:03 Ns IV 04/21/22 06:35 999 mls/hr .Q1H1M ONE Administration Piperacillin Sod/Tazobactam 50 mls @ 100 mls/hr 04/21/22 05:47 04/21/22 06:04 Sod 3.375 gm/ Sodium Chloride IV 04/21/22 06:16 100 mls/hr ONCE ONE Administration Ondansetron HCl 4 mg 04/21/22 05:35 04/21/22 05:45 Ondansetron Hcl 4 Mg/2 Ml Vial IVPUSH 04/21/22 05:36 4 mg ONCE ONE Administration Pantoprazole Sodium 80 mg 04/21/22 05:34 04/21/22 05:45 Pantoprazole Sodium 40 Mg/10 Ml Vial IVPUSH 04/21/22 05:35 80 mg ONCE ONE Administration Medical Decision Making Medical Decision Making MDM Narrative: 06:45 Patient with lower GI bleed on Eliquis blood pressure improved FFP 2 units were given and 2 units of PRBC ordered patient vomited dark color. In the ER sent for gastric occult blood NGT was placed and about 700 cc of greenish gastric fluid drained, test came back negative for gastric occult Differential Diagnosis Differential Diagnoses: The differential diagnosis associated with the presentation includes Sepsis/lower GI bleed/telangiectasias /hypertension Consult Healthcare Provider Management of the patient was discussed with: Hospitalist Lab Data MDM Lab Attestation statement: I reviewed the patient's lab results. Result Diagrams: 04/21/22 05:23 04/21/22 05:22 Labs: Lab Results 04/21/22 04/21/22 04/21/22 Range/Units 05:22 05:22 05:23 WBC 20.6 H (4.8-10.8) X10*3/uL RBC 2.16 L D (4.60-5.80) X10*6/uL Hgb 6.5 L* D (14.0-18.0) g/dl Hct 20.6 L* D (42.0-52.0) % MCV 95.4 (80.0-98.0) fL MCH 30.1 (27.0-33.0) pg MCHC 31.6 (31.0-36.0) g/dl RDW 15.7 (11.0-16.0) % Plt Count 382 D (160-400) X10*3/uL MPV 8.8 L (9.4-12.4) fL Immature Gran % (Auto) 4.1 H (0.0-0.4) % Neut % (Auto) 80.0 H (45-73) % Lymph % (Auto) 8.5 L (20-40) % [place] % (Auto) 7.1 (2-11) % Eos % (Auto) 0.1 (0-4) % Baso % (Auto) 0.2 (0-2) % Lymph # (Auto) 1.7 (1.2-4.9) X10*3/uL [place] # (Auto) 1.5 H (0.1-1.2) X10*3/uL Eos # (Auto) 0.0 (0.0-0.4) X10*3/uL Baso # (Auto) 0.1 (0.0-0.2) X10*3/uL Abs Immat Gran (auto) 0.85 H (0.00-0.03) X10*3/uL Absolute Neuts (auto) 16.5 H (2.0-8.3) x10*3/uL Absolute Nucleated RBC 0.000 (0.0-0.012) X10*3/uL Nucleated RBC % (auto) 0.0 (0.0-0.2) /100WBC PT (10.0-13.1) SEC INR (0.9-1.1) VBG pH (7.32-7.43) VBG pCO2 mmHg VBG pO2 mmHg VBG HCO3 (22-26) mmol/L VBG O2 Saturation % VBG Base Excess mmol/L Sodium 140 (135-145) mmol/L Potassium 4.9 (3.3-5.1) mmol/L Chloride 112 H (96-108) mmol/L Carbon Dioxide 18 L (22-29) mmol/L Anion Gap 15 (12-20) BUN 28 H (9-16) mg/dL Creatinine 0.86 (0.5-1.4) mg/dL Estim Creat Clear Calc 83.7 Estimated GFR > 60 Random Glucose 222 H (60-115) mg/dL Lactic Acid Calcium 7.3 L D (8.4-10.2) mg/dL Total Bilirubin 0.3 (0.0-1.0) mg/dL AST 18 (5-37) U/L ALT 25 (0-40) U/L Alkaline Phosphatase 129 H (39-117) U/L Troponin I High Sens (<3.5-35.0) ng/L Total Protein 4.8 L (6.5-8.0) g/dL Albumin 2.1 L (3.5-5.0) g/dL Gastric Occult Blood (NEG) COVID-19 (KATELYNN) (Negative) COVID-19 Clin Com Blood Type B Positive Antibody Screen NEGATIVE Crossmatch See Detail 04/21/22 04/21/22 04/21/22 Range/Units 05:23 05:23 05:23 WBC (4.8-10.8) X10*3/uL RBC (4.60-5.80) X10*6/uL Hgb (14.0-18.0) g/dl Hct (42.0-52.0) % MCV (80.0-98.0) fL MCH (27.0-33.0) pg MCHC (31.0-36.0) g/dl RDW (11.0-16.0) % Plt Count (160-400) X10*3/uL MPV (9.4-12.4) fL Immature Gran % (Auto) (0.0-0.4) % Neut % (Auto) (45-73) % Lymph % (Auto) (20-40) % [place] % (Auto) (2-11) % Eos % (Auto) (0-4) % Baso % (Auto) (0-2) % Lymph # (Auto) (1.2-4.9) X10*3/uL [place] # (Auto) (0.1-1.2) X10*3/uL Eos # (Auto) (0.0-0.4) X10*3/uL Baso # (Auto) (0.0-0.2) X10*3/uL Abs Immat Gran (auto) (0.00-0.03) X10*3/uL Absolute Neuts (auto) (2.0-8.3) x10*3/uL Absolute Nucleated RBC (0.0-0.012) X10*3/uL Nucleated RBC % (auto) (0.0-0.2) /100WBC PT 19.6 H (10.0-13.1) SEC INR 1.7 H (0.9-1.1) VBG pH (7.32-7.43) VBG pCO2 mmHg VBG pO2 mmHg VBG HCO3 (22-26) mmol/L VBG O2 Saturation % VBG Base Excess mmol/L Sodium (135-145) mmol/L Potassium (3.3-5.1) mmol/L Chloride (96-108) mmol/L Carbon Dioxide (22-29) mmol/L Anion Gap (12-20) BUN (9-16) mg/dL Creatinine (0.5-1.4) mg/dL Estim Creat Clear Calc Estimated GFR Random Glucose (60-115) mg/dL Lactic Acid Calcium (8.4-10.2) mg/dL Total Bilirubin (0.0-1.0) mg/dL AST (5-37) U/L ALT (0-40) U/L Alkaline Phosphatase (39-117) U/L Troponin I High Sens 12.8 (<3.5-35.0) ng/L Total Protein (6.5-8.0) g/dL Albumin (3.5-5.0) g/dL Gastric Occult Blood (NEG) COVID-19 (KATELYNN) Negative (Negative) COVID-19 Clin Com See Note Blood Type Antibody Screen Crossmatch 04/21/22 04/21/22 04/21/22 Range/Units 05:23 05:29 05:43 WBC (4.8-10.8) X10*3/uL RBC (4.60-5.80) X10*6/uL Hgb (14.0-18.0) g/dl Hct (42.0-52.0) % MCV (80.0-98.0) fL MCH (27.0-33.0) pg MCHC (31.0-36.0) g/dl RDW (11.0-16.0) % Plt Count (160-400) X10*3/uL MPV (9.4-12.4) fL Immature Gran % (Auto) (0.0-0.4) % Neut % (Auto) (45-73) % Lymph % (Auto) (20-40) % [place] % (Auto) (2-11) % Eos % (Auto) (0-4) % Baso % (Auto) (0-2) % Lymph # (Auto) (1.2-4.9) X10*3/uL [place] # (Auto) (0.1-1.2) X10*3/uL Eos # (Auto) (0.0-0.4) X10*3/uL Baso # (Auto) (0.0-0.2) X10*3/uL Abs Immat Gran (auto) (0.00-0.03) X10*3/uL Absolute Neuts (auto) (2.0-8.3) x10*3/uL Absolute Nucleated RBC (0.0-0.012) X10*3/uL Nucleated RBC % (auto) (0.0-0.2) /100WBC PT (10.0-13.1) SEC INR (0.9-1.1) VBG pH 7.32 (7.32-7.43) VBG pCO2 33 mmHg VBG pO2 46 mmHg VBG HCO3 17 L (22-26) mmol/L VBG O2 Saturation 65.0 % VBG Base Excess -7.7 mmol/L Sodium (135-145) mmol/L Potassium (3.3-5.1) mmol/L Chloride (96-108) mmol/L Carbon Dioxide (22-29) mmol/L Anion Gap (12-20) BUN (9-16) mg/dL Creatinine (0.5-1.4) mg/dL Estim Creat Clear Calc Estimated GFR Random Glucose (60-115) mg/dL Lactic Acid Cancelled 4.1 H* Calcium (8.4-10.2) mg/dL Total Bilirubin (0.0-1.0) mg/dL AST (5-37) U/L ALT (0-40) U/L Alkaline Phosphatase (39-117) U/L Troponin I High Sens (<3.5-35.0) ng/L Total Protein (6.5-8.0) g/dL Albumin (3.5-5.0) g/dL Gastric Occult Blood (NEG) COVID-19 (KATELYNN) (Negative) COVID-19 Clin Com Blood Type Antibody Screen Crossmatch 04/21/22 Range/Units 06:35 WBC (4.8-10.8) X10*3/uL RBC (4.60-5.80) X10*6/uL Hgb (14.0-18.0) g/dl Hct (42.0-52.0) % MCV (80.0-98.0) fL MCH (27.0-33.0) pg MCHC (31.0-36.0) g/dl RDW (11.0-16.0) % Plt Count (160-400) X10*3/uL MPV (9.4-12.4) fL Immature Gran % (Auto) (0.0-0.4) % Neut % (Auto) (45-73) % Lymph % (Auto) (20-40) % [place] % (Auto) (2-11) % Eos % (Auto) (0-4) % Baso % (Auto) (0-2) % Lymph # (Auto) (1.2-4.9) X10*3/uL [place] # (Auto) (0.1-1.2) X10*3/uL Eos # (Auto) (0.0-0.4) X10*3/uL Baso # (Auto) (0.0-0.2) X10*3/uL Abs Immat Gran (auto) (0.00-0.03) X10*3/uL Absolute Neuts (auto) (2.0-8.3) x10*3/uL Absolute Nucleated RBC (0.0-0.012) X10*3/uL Nucleated RBC % (auto) (0.0-0.2) /100WBC PT (10.0-13.1) SEC INR (0.9-1.1) VBG pH (7.32-7.43) VBG pCO2 mmHg VBG pO2 mmHg VBG HCO3 (22-26) mmol/L VBG O2 Saturation % VBG Base Excess mmol/L Sodium (135-145) mmol/L Potassium (3.3-5.1) mmol/L Chloride (96-108) mmol/L Carbon Dioxide (22-29) mmol/L Anion Gap (12-20) BUN (9-16) mg/dL Creatinine (0.5-1.4) mg/dL Estim Creat Clear Calc Estimated GFR Random Glucose (60-115) mg/dL Lactic Acid Calcium (8.4-10.2) mg/dL Total Bilirubin (0.0-1.0) mg/dL AST (5-37) U/L ALT (0-40) U/L Alkaline Phosphatase (39-117) U/L Troponin I High Sens (<3.5-35.0) ng/L Total Protein (6.5-8.0) g/dL Albumin (3.5-5.0) g/dL Gastric Occult Blood NEGATIVE (NEG) COVID-19 (KATELYNN) (Negative) COVID-19 Clin Com Blood Type Antibody Screen Crossmatch Procedures Central Line Placement Right IJ: Patient Placed on Monitor/Pulse Ox: Yes Prep: mask, gown and gloves Central Line Prep: Chlorhexidine scrub and sterile drapes applied Local Anesthetic: lidocaine 1% Amount of anesthesia used (mL): 4 Ultrasound Used for Placement: Yes Central Line Lumen Inserted: triple Post Procedure: sutured in place, good blood return, all ports aspirated, flushed, capped and sterile dressing applied Post Procedure X-Ray: tip of catheter in good position and no pneumothorax seen Patient Tolerated Procedure: well and no complications Critical Care Time Critical Care Time Critical Care Time: Yes Total Critical Care Time: 65 Attestation: The patient was critically ill with a high probability of imminent or life threatening deterioration. I spent greater than 70 minutes of discontinuous time evaluating the patient,delivering critical care at the bedside, discussing and evaluating pertinent data with consultants. Critical care time does not include time spent performing separately billable procedures or teaching. Total time spent performing critical care was 65 minutes. Discharge Plan Discharge Clinical Impression: Painless rectal bleeding, Sepsis, Severe anemia Patient Disposition: Admitted As Inpatient
[2022-04-21] MEDS: 0.9 % Sodium Chloride 1,000 ML 999 ML IV ×3 (05:15→07:20)
[2022-04-21 05:29] LABS: MANUAL DIFF FLAG NO
[2022-04-21 05:30] LABS: Basophils Absolute Auto 0.1 X10*3/uL (0.0-0.2); Basophils Percent Auto 0.2 % (0-2); Eosinophils Percent Auto 0.1 % (0-4); Imm Gran Abs Auto 0.85 X10*3/uL (0.00-0.03); Imm Gran Pct Auto 4.1 % (0.0-0.4); Lymphocytes Absolute Auto 1.7 X10*3/uL (1.2-4.9); Lymphocytes Percent Auto 8.5 % (20-40); Mean Corpuscular HGB Conc 31.6 g/dl (31.0-36.0); Mean Corpuscular Hemoglobin 30.1 pg (27.0-33.0); Mean Corpuscular Volume 95.4 fL (80.0-98.0); Mean Platelet Volume 8.8 fL (9.4-12.4); Monocytes Absolute Auto 1.5 X10*3/uL (0.1-1.2); Monocytes Percent Auto 7.1 % (2-11); Neutrophils Absolute Auto 16.5 x10*3/uL (2.0-8.3); Platelet Count 382 X10*3/uL (160-400); Red Blood Count 2.16 X10*6/uL (4.60-5.80); Red Cell Distribution Width 15.7 % (11.0-16.0); White Blood Count 20.6 X10*3/uL (4.8-10.8)
[2022-04-21 05:31] LABS: Hemoglobin 6.5 g/dl (14.0-18.0)
[2022-04-21 05:32] LABS: Hematocrit 20.6 % (42.0-52.0)
[2022-04-21 05:35] LABS: INTERNATIONAL NORM RATIO 1.7 (0.9-1.1); Prothrombin Time 19.6 SEC (10.0-13.1)
[2022-04-21] MEDS: ondansetron HCL 4 MG/2 ML VIAL IVPUSH (05:45)
[2022-04-21] MEDS: Pantoprazole Sodium 40 MG/10 ML VIAL 80 MG IVPUSH (05:45)
[2022-04-21 05:50] LABS: VBG Base Excess -7.7 mmol/L; VBG HCO3 17 mmol/L (22-26); VBG pCO2 33 mmHg; VBG pH 7.32 (7.32-7.43); VBG pO2 46 mmHg
[2022-04-21 05:50] LABS: COVID-19 Test Negative (Negative)
[2022-04-21 05:51] LABS: Venous Blood Gas Refer to POC result
[2022-04-21] MEDS: Pantoprazole Sodium 80 MG in 0.9 % Sodium Chloride 80 ML 10 MG IV ×2 (05:53→19:15)
[2022-04-21 05:55] LABS: Alanine Aminotransferase 25 U/L (0-40); Albumin Level 2.1 g/dL (3.5-5.0); Alkaline Phosphatase 129 U/L (39-117); Anion Gap 15 (12-20); Aspartate Amino Transferase 18 U/L (5-37); Bilirubin Total 0.3 mg/dL (0.0-1.0); Blood Urea Nitrogen 28 mg/dL (9-16); Calcium 7.3 mg/dL (8.4-10.2); Carbon Dioxide 18 mmol/L (22-29); Chloride 112 mmol/L (96-108); Creatinine Clr Calc Pharmacy 83.7; Estimated Glomerular Filt Rate > 60; Glucose Random 222 mg/dL (60-115); Potassium 4.9 mmol/L (3.3-5.1); Sodium 140 mmol/L (135-145); Total Protein 4.8 g/dL (6.5-8.0)
[2022-04-21 06:00] LABS: Lactic Acid 4.1 mmol/L (0.5-2.0)
[2022-04-21 06:01] LABS: Troponin-I High Sensitivity 12.8 ng/L (<3.5-35.0)
--- OUTSIDE RECORDS SUMMARY | 2022-04-21 06:02 | XMS_ITS | Continuity of Care Document ---
:1955 Author Organization [facility] Address [address] [place] [id number]- Care Team Providers Name Role Phone David VARELA, Lori Ojeda Primary Care Physician Encounter [facility] [id number] Date(s): 04/09/21 - 05/15/21 [facility] [address] [address]- Attending Physician: Lucretia Love MD Admitting Physician: Lucretia Love MD Allergies, Adverse Reactions, Alerts No Known Medication Allergies Substance Reaction Severity Status NKA Active Immunizations Given and Recorded Vaccine Date Status Refusal Reason pneumococcal 23-valent vaccine 10/13/18 Given Not Given Vaccine Date Status Refusal Reason pneumococcal 23-valent vaccine 10/23/19 Not Given P atient Refuses pneumococcal 23-valent vaccine 12/07/15 Not Given P atient Refuses Medications aspirin 81 mg oral tablet 1 tablet = 81 mg, By Mouth, Daily, # 30 tablet, 3 Refills Start Date: 01/12/09 Stop Date: 02/11/09 Status: OrderedAspirin Low Dose 81 mg oral delayed release tablet 1 tablet = 81 mg, By Mouth, Daily, # 30 tablet, 0 Refills, Maintenance, 10/20/19 22:07:00 EDT, EC Tablet Start Date: 10/20/19 Status: Orderedatorvastatin 40 mg oral tablet 1 tablet = 40 mg, By Mouth, Daily, # 90 tablet, 0 Refills, Maintenance, 10/20/19 22:06:00 EDT, Tablet Start Date: 10/20/19 Status: Orderedatorvastatin 80 mg oral tablet 1 tablet = 80 mg, By Mouth, Daily, # 30 tablet, 0 Refills, Maintenance, Tablet Start Date: 12/06/15 Status: Orderedclobetasol 0.05% topical cream 1 application, Topically, 2 times a day, # 15 Gm, 0 Refills, Maintenance, 12/06/15 18:05:58, Cream Start Date: 12/06/15 Status: Orderedgabapentin 100 mg oral capsule 100 mg, 1, capsule, By Mouth, 3 times a day, # 90 capsule, Refills 0, Tot. Refills 0, Maintenance, 10/13/18 11:51:36 EDT, Print Requisition Start Date: 10/13/18 Status: Orderedgabapentin 300 mg oral capsule 300 mg, 1, capsule, By Mouth, 2 times a day, Refills 0, Maintenance, 10/20/19 22:06:00 EDT Start Date: 10/20/19 Status: Orderedibuprofen 600 mg oral tablet 1 tablet = 600 mg, By Mouth, 3 times a day, # 21 tablet, 0 Refills Start Date: 01/12/09 Stop Date: 01/25/09 Status: Orderedlisinopril 20 mg oral tablet 1 tablet = 20 mg, By Mouth, Daily, # 30 tablet, 3 Refills Start Date: 01/12/09 Stop Date: 02/10/09 Status: Orderedlisinopril 30 mg oral tablet 1 tablet = 30 mg, By Mouth, Daily, # 90 tablet, 0 Refills, Maintenance, 10/20/19 22:06:00 EDT, Tablet Start Date: 10/20/19 Status: Orderedmelatonin 5 mg oral tablet 1 tablet = 5 mg, By Mouth, Daily at bedtime, # 30 tablet, 0 Refills, Maintenance, 10/28/19 10:17:00 EDT, Tablet Start Date: 10/28/19 Status: OrderedMetoprolol Succinate ER 25 mg oral tablet, extended release 1 tablet = 25 mg, By Mouth, Daily, # 30 tablet, 0 Refills, Maintenance, 12/06/15 18:06:02, ER Tablet Start Date: 12/06/15 Status: OrderedMetoprolol Succinate ER 25 mg oral tablet, extended release 1 tablet = 25 mg, By Mouth, Daily, # 90 tablet, 0 Refills, Maintenance, 10/20/19 22:06:00 EDT, ER Tablet Start Date: 10/20/19 Status: Orderedmultivitamin Therapeutic Multiple Vitamins oral tablet 1 tablet, By Mouth, Daily, # 100 tablet, 0 Refills, Maintenance, 10/28/19 10:18:00 EDT, Tablet Start Date: 10/28/19 Status: Orderedphenytoin 100 mg oral capsule, extended release 1 capsule = 100 mg, By Mouth, Every 8 hours, # 90 tablet, 3 Refills Start Date: 01/11/09 Stop Date: 02/10/09 Status: Orderedphenytoin 50 mg oral tablet, chewable 2 tablet = 100 mg, By Mouth, 3 times a day, # 90 tablet, 0 Refills, Maintenance, 10/20/19 23:00:00 EDT, Chew Tablet Start Date: 10/20/19 Status: OrderedSpiriva HandiHaler 18 mcg inhalation capsule USE 1 CAPSULE FOR INHALATION ONCE A DAY DO NOT SWALLOW CAPSULE Start Date: 10/20/19 Status: Orderedtamsulosin 0.4 mg oral capsule 0.4 mg, 1, capsule, By Mouth, Daily, # 30 capsule, Refills 0, Maintenance, 10/20/19 22:06:00 EDT Start Date: 10/20/19 Status: Orderedthiamine 100 mg oral tablet 100 mg, 1, tablet, By Mouth, Daily, # 100 tablet, Refills 0, Tot. Refills 0, Maintenance, 10/28/19 10:18:00 EDT, Print Requisition Start Date: 10/28/19 Status: OrderedVitamin D3 50 Mcg (2,000 Unit) TAKE 1 CAPSULE BY MOUTH EVERY MORNING Start Date: 10/20/19 Status: Ordered Social History Social History Type Response Smoking Status 10 or more cigarettes (1/2 p ack or more)/day in last 30 days; Other: Report smoking at least 2 packs/day.; entered on: 10/23/19 Sex
--- OUTSIDE RECORDS SUMMARY | 2022-04-21 06:02 | XMS_ITS | Continuity of Care Document ---
:1955 Author Organization [facility] Address [address] [place] [id number]- Care Team Providers Name Role Phone David VARELA, Lori Ojeda Primary Care Physician [facility] [id number] Date(s): 07/09/21 - 08/14/21 [facility] [address] [address] Attending Physician: Lucretia Love MD Admitting Physician: Lucretia Lvoe MD Allergies, Adverse Reactions, Alerts No Known Allergies Immunizations Given and Recorded Vaccine Date Status [...] EVERY MORNING Start Date: 10/20/19 Status: Ordered Problem List Condition Effective Dates Status Health Status Informant 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
--- OUTSIDE RECORDS SUMMARY | 2022-04-21 06:02 | XMS_ITS | Continuity of Care Document ---
:1955 Author Organization [facility] Address [address] [place] [address]- Care Team Providers Name Role Phone David VARELA, Lori Ojeda Primary Care Physician [phone] [place] [facility] [place] [id number] Date(s): 07/15/21 - 08/14/21 [facility] [address] [address] Attending Physician: Ha Perez Admitting Physician: Ha Perez Referring Physician: AdmtrHa Allergies, Adverse Reactions, Alerts No Known Allergies [...]
--- OUTSIDE RECORDS SUMMARY | 2022-04-21 06:02 | XMS_ITS | Continuity of Care Document ---
:1955 Author Organization [facility] Address [address] [place] [id number]- Care Team Providers Name Role Phone Pollo BURNETT, Vicenta Campbell Primary Care Physician Encounter [facility] [place](s): 10/20/19 - 10/28/[address] [address] [facility] Encounter Diagnosis Acute kidney injury (Final) - 10/20/19 Cognitive deficits (Discharge Diagnosis) - 10/28/19 Discharge Disposition: A-Transfer VNA/Home Health Attending Physician: Swapnil Tejeda MD Admitting Physician: Alexander Haq DO Referring Physician: Not on Staff, Referring MD Allergies, Adverse Reactions, Alerts No Known Medication Allergies Immunizations Not Given Vaccine Date Status Refusal Reason pneumococcal 23-valent vaccine 10/23/19 Not Given P atient Refuses Medications atorvastatin 40 mg oral tablet 1 tablet = 40 mg, By Mouth, Daily, # 90 tablet, 0 Refills, Maintenance, 10/20/19 22:06:00 EDT, Tablet Start Date: 10/20/19 Status: Orderedgabapentin 300 mg oral capsule 300 mg, 1, capsule, By Mouth, 2 times a day, Refills 0, Maintenance, 10/20/19 22:06:00 EDT Start Date: 10/20/19 Status: Orderedlisinopril 30 mg oral tablet 1 [...] EDT, Tablet Start Date: 10/28/19 Status: Orderedphenytoin 50 mg oral tablet, chewable 2 tablet = 100 mg, By Mouth, 3 times a day, # 90 tablet, 0 Refills, Maintenance, 10/20/19 23:00:00 EDT, Chew Tablet Start Date: 10/20/19 Status: OrderedSpiriva HandiHaler 18 mcg inhalation capsule USE 1 CAPSULE FOR INHALATION ONCE A DAY DO NOT SWALLOW CAPSULE Start Date: 10/20/19 Status: Orderedsulfamethoxazole-trimethoprim 800 mg-160 mg oral tablet 1 tablet, By Mouth, 2 times a day, for 5 days, # 10 tablet, 0 Refills, Acute 11/02/19 10:18:00 EDT, 10/28/19 10:18:00 EDT, Tablet Start Date: 10/28/19 Stop Date: 11/02/19 Status: Orderedtamsulosin 0.4 mg oral capsule 0.4 [...] Start Date: 10/20/19 Status: Ordered Problem List Diagnosis Diagnosis Type Effective Dates Health Status Clinical In formant Service Cognitive Discharge 10/28/19 Non-Specified deficits Diagnosis Results Orders for Microbiology Reports Name Date Urine Culture (Culture Urine) 10/23/19 Microbiology Reports TEST:Urine Culture STATUS:Auth (Verified) BODY SITE: SOURCE:URINE COLLECTED DATE/TIME:10/23/19 6:14 PMUrine Culture SPECIMEN DESCRIPTION : URINE CLEAN CATCH/MIDSTREAM SPECIAL REQUESTS : NONE CULTURE : >100,000 COL/ML STAPHYLOCOCCUS SAPROPHYTICUS. SUSCEPTIBILITY TESTING NOT ROUTINELY PERFORMED ON THIS ISOLATE. REPORT STATUS : FINAL 10/26/2019 ORGANISM >100,000 COL/ML STAPHYLOCOCCUS SAPROPHYTICUS. SUSCEPTIBILITY TESTING NOT ROUTINELY PERFORMED ON THIS ISOLATE. METHOD MIN. INHIB. CONC. (MCG/ML) Vital Signs Most recent to oldest 1 2 3 [Reference Range]: Height 172.7 cm 172.7 cm 172.7 cm (10/28/19 11:19 AM) (10/28/19 5:02 AM) (10/27/19 10 :46 PM) Weight 64 kg 71.6 kg 62.0 kg (10/25/19 5:29 AM) (10/23/19 6:15 AM) (10/22/19 5:0 6 AM) Oxygen Saturation [94-100 %] 98 % 98 % 99 % (10/28/19 11:19 AM) (10/28/19 5:02 AM) (10/27/19 10 :46 PM) Pulse Rate [55-90 bpm] 66 bpm 60 bpm 115 bpm (10/28/19 11:19 AM) (10/28/19 9:26 AM) *H* (10/28/19 5:02 AM ) Body Mass Index [18.5-24.99] 21.46 24.01 20. 79 (10/25/19 5:29 AM) (10/23/19 6:15 AM) (10/22/19 5:0 6 AM) Blood Pressure [90-138/55-84 119/72 mm Hg 132/70 mm Hg 118 /63 mm Hg mm Hg] (10/28/19 11:19 AM) (10/28/19 9:26 AM) (10/28/19 5: 02 AM) Respiratory Rate [16-30 16 br/min 18 br/min 18 br/mi n br/min] (10/28/19 11:19 AM) (10/28/19 10:27 AM) (10/28/19 9 :27 AM) Temperature [96.8-100.4 98.0 DegF 98.0 DegF 98.1 Deg F DegF] (10/28/19 11:19 AM) (10/28/19 5:02 AM) (10/27/19 10 :46 PM) Liters per Minute 4 L/min 4 L/min (10/20/19 3:24 PM) (10/20/19 2:20 PM) Mode of Delivery (Oxygen) Room air Room air Room a ir (10/28/19 11:19 AM) (10/28/19 5:02 AM) (10/27/19 10 :46 PM) Blood pressure sites Arm, left Arm, left Arm, left (10/28/19 11:19 AM) (10/28/19 5:02 AM) (10/27/19 10 :46 PM) Temperature Route Oral Oral Oral (10/28/19 11:19 AM) (10/28/19 5:02 AM) (10/27/19 10 :46 PM) Dry Weight 61.2 kg (10/20/19 11:15 PM) Weight Obtained Via Bed scale Bed scale Bed scale (10/25/19 5:29 AM) (10/23/19 6:15 AM) (10/22/19 5:0 6 AM) Social History Social History Type Response Smoking Status 10 or more cigarettes (1/2 p ack or more)/day in last 30 days; Other: Report smoking at least 2 packs/day.; entered on: 10/23/19 Sex
--- OUTSIDE RECORDS SUMMARY | 2022-04-21 06:02 | XMS_ITS | Continuity of Care Document ---
:1955 Author Organization [facility] Address [address] [place] [address]- Care Team Providers Name Role Phone David VARELA, Lori Ojeda Primary Care Physician [phone] [place] [facility] [place] [id number] Date(s): 04/15/21 - 05/15/21 [facility] [address] [place] [id number] Attending Physician: Ha Perez Admitting Physician: Ha Perez Referring Physician: AdmtrHa Allergies, Adverse Reactions, Alerts No Known Medication [...]
[2022-04-21] MEDS: Piperacillin Sodium/Tazobactam 3.375 GM in 0.9 % Sodium Chloride 50 ML IV (06:04)
[2022-04-21 06:47] LABS: GASOB Int Neg Ctl Valid YES; GASOB Int Pos Ctl Valid YES; GASOB Lot 20512; Occult Blood Gastric NEGATIVE (NEG)
--- NOTE | 2022-04-21 06:47 | PC.NURSE ---
pt had a NG tube put in the output on first canister was 900, another canister was put in replace,he was also cleaned up and blankets underneath him were removed,
--- NOTE | 2022-04-21 07:11 | PHA.MEDREC ---
Addendum entered by Tonya Chu RPh 04/21/22 10:53: Patient came from [facility] with medication. The following medications were restarted at [facility] after being discontinued here at [facility] on discharged 04/17: Eliquis 5 mg BID Gabapentin 600 mg BID Incruse Daily Phenytoin 50 mg BID Olanzapine 20 mg bedtime Sertraline 25 mg daily Original Note: Pharmacy Consult ? Medication Reconciliation Pharmacy has completed the medication reconciliation. Patient just discharged from [facility] inpatient on 04/17. Discharge summary used to complete med rec. Tonya Chu, PharmD
[2022-04-21 07:33] LABS: Reflex Lactate? Lactic Acid Added
--- NOTE | 2022-04-21 07:45 | PM.IMHP ---
History of Present Illness Date of Service: 04/21/22 Chief Complaint: GI bleed This is a 66-year-old male with 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 Patient is nonverbal, drowsy and only eye opening to painful stimulus. History obtained from chart review. Patient was recently admitted and discharged on 04/17. During hospital course he underwent left AKA. Hospitalization was complicated by hemolytic shock due to acute GI bleed. GI was consulted with no plan for intervention and bleeding stopped with discontinuation of Eliquis. As per ER provider, patient resumed Eliquis on 04/[facility] at [facility] living and had significant rectal bleed with coffee-ground emesis that started on the day of presentation. Patient was also hypotensive upon arrival. Unable to obtain review of systems put Review of Systems Review of Systems: Yes Unobtainable due to mental condition and Unobtainable due to mental status [facility] Medical History Alcohol abuse Blood per rectum Cardiomyopathy Cellulitis Dementia DVT (deep venous thrombosis) DVT of deep femoral vein GERD (gastroesophageal reflux disease) Hepatitis C antibody positive in blood Hypertension Seizure Family History Father No problems noted. Mother No problems noted. Brother Cancer Sister No problems noted. Surgical History No pertinent past surgical history Social History Household Members: Unknown / Unable to assess Housing: Unknown / Unable to assess Unable to assess alcohol history related to: Unable to respond Alcohol intake: current Alcohol intake frequency: a few times a week Alcohol type: beer Patient Tobacco Use Status: Tobacco use Unknown Cigarettes Per Day: 7 Substance Use Type: Unknown Advance Directives: Yes Advance Directives on File: Yes Advance Directives Date on File: 10/11/20 service: No Current occupational status: unemployed and disabled Meds Allergies Allergy/AdvReac Type Severity Reaction Status Date / Time No Known Allergies Allergy Verified 04/07/22 13:53 [No Known Allergies*] Active Medications: Current Medications Acetaminophen (Acetaminophen 325 Mg Tablet) 650 mg PO Q6H PRN PRN Reason: Pain, Mild (Pain Scale 1-3) Pantoprazole Sodium 80 mg/ (Sodium Chloride) 100 mls @ 10 mls/hr IV .Q10H [facility] Last Admin: 04/21/22 05:53 Dose: 8 mg/hr, 10 mls/hr Vancomycin HCl 1,000 mg/Vancomycin HCl 750 mg/ Sodium Chloride 535 mls @ 267.5 mls/hr IV ONCE ONE Stop: 04/21/22 08:29 Sodium Chloride (Ns) 1,000 mls @ 999 mls/hr IV .Q1H1M ONE Stop: 04/21/22 07:48 Last Admin: 04/21/22 07:20 Dose: 999 mls/hr Melatonin (Melatonin 3 Mg Tablet) 6 mg PO BEDTIME PRN PRN Reason: Insomnia Ondansetron HCl (Ondansetron Hcl 4 Mg/2 Ml Vial) 4 mg IVPUSH Q8H PRN PRN Reason: Nausea and Vomiting Pharmacy Consult (Consult Rx Perform Med Rec) 1 each MISCELLANE ONCE PRN PRN Reason: Consult order Sodium Chloride (0.9 % Sodium Chloride Flush 3 Ml Syringe) [address] [facility] Home Medications Medication Instructions Recorded Confirmed Last Taken Type tamsulosin 0.4 mg capsule 0.4 mg PO DAILY 04/01/20 04/21/22 Unknown History Physical Exam Vital Signs and Narrative: Vital Signs: Last Vital Signs Temp 98.2 F 04/21/22 07:28 Pulse 117 H 04/21/22 07:28 Resp 20 04/21/22 07:28 BP 130/73 04/21/22 07:28 Pulse Ox 95 04/21/22 07:28 O2 Del Method 04/21/22 07:28 O2 Flow Rate 2.5 04/21/22 06:46 BMI result Body Mass Index 22.4 Middle-aged male lying in bed in no distress Neck supple, no JVD Tachycardic with regular rhythm, S1-S2 heard Regular breath sounds bilaterally, no wheezing or crackles appreciated Abdomen soft nontender, no guarding, no rigidity Patient is drowsy, non verbal and only eye opening to verbal stimulus Extremity: left AKA Results Labs CBC and Chem 7: 04/21/22 05:23 04/21/22 05:22 Labs: Laboratory Results - last 24 hr 04/21/22 04/21/22 04/21/22 05:22 05:22 05:23 MCV 95.4 MCH 30.1 MCHC 31.6 RDW 15.7 Plt Count 382 D MPV 8.8 L Immature Gran % (Auto) 4.1 H Neut % (Auto) 80.0 H Lymph % (Auto) 8.5 L Whitman % (Auto) 7.1 Eos % (Auto) 0.1 Baso % (Auto) 0.2 Lymph # (Auto) 1.7 Whitman # (Auto) 1.5 H Eos # (Auto) 0.0 Baso # (Auto) 0.1 Abs Immat Gran (auto) 0.85 H Absolute Neuts (auto) 16.5 H Absolute Nucleated RBC 0.000 Nucleated RBC % (auto) 0.0 PT INR VBG pH VBG pCO2 VBG pO2 VBG HCO3 VBG O2 Saturation VBG Base Excess Anion Gap 15 Estim Creat Clear Calc 83.7 Estimated GFR > 60 Random Glucose 222 H Lactic Acid Calcium 7.3 L D Total Bilirubin 0.3 AST 18 ALT 25 Alkaline Phosphatase 129 H Troponin I High Sens Total Protein 4.8 L Albumin 2.1 L Gastric Occult Blood COVID-19 (KATELYNN) COVID-Seer Com Blood Type B Positive Antibody Screen NEGATIVE Crossmatch See Detail 04/21/22 04/21/22 04/21/22 05:23 05:23 05:23 MCV MCH MCHC RDW Plt Count MPV Immature Gran % (Auto) Neut % (Auto) Lymph % (Auto) Whitman % (Auto) Eos % (Auto) Baso % (Auto) Lymph # (Auto) Whitman # (Auto) Eos # (Auto) Baso # (Auto) Abs Immat Gran (auto) Absolute Neuts (auto) Absolute Nucleated RBC Nucleated RBC % (auto) PT 19.6 H INR 1.7 H VBG pH VBG pCO2 VBG pO2 VBG HCO3 VBG O2 Saturation VBG Base Excess Anion Gap Estim Creat Clear Calc Estimated GFR Random Glucose Lactic Acid Calcium Total Bilirubin AST ALT Alkaline Phosphatase Troponin I High Sens 12.8 Total Protein Albumin Gastric Occult Blood COVID-19 (KATELYNN) Negative COVID-19 [employer] Com See Note Blood Type Antibody Screen Crossmatch 04/21/22 04/21/2204/21/22 05:23 05:29 05:43 MCV MCH MCHC RDW Plt Count MPV Immature Gran % (Auto) Neut % (Auto) Lymph % (Auto) Whitman % (Auto) Eos % (Auto) Baso % (Auto) Lymph # (Auto) Whitman # (Auto) Eos # (Auto) Baso # (Auto) Abs Immat Gran (auto) Absolute Neuts (auto) Absolute Nucleated RBC Nucleated RBC % (auto) PT INR VBG pH 7.32 VBG pCO2 33 VBG pO2 46 VBG HCO3 17 L VBG O2 Saturation 65.0 VBG Base Excess -7.7 Anion Gap Estim Creat Clear Calc Estimated GFR Random Glucose Lactic Acid Cancelled 4.1 H* Calcium Total Bilirubin AST ALT Alkaline Phosphatase Troponin I High Sens Total Protein Albumin Gastric Occult Blood COVID-19 (KATELYNN) COVID-19 [employer] Blood Type Antibody Screen Crossmatch 04/21/22 06:35 MCV MCH MCHC RDW Plt Count MPV Immature Gran % (Auto) Neut % (Auto) Lymph % (Auto) Whitman % (Auto) Eos % (Auto) Baso % (Auto) Lymph # (Auto) Whitman # (Auto) Eos # (Auto) Baso # (Auto) Abs Immat Gran (auto) Absolute Neuts (auto) Absolute Nucleated RBC Nucleated RBC % (auto) PT INR VBG pH VBG pCO2 VBG pO2 VBG HCO3 VBG O2 Saturation VBG Base Excess Anion Gap Estim Creat Clear Calc Estimated GFR Random Glucose Lactic Acid Calcium Total Bilirubin AST ALT Alkaline Phosphatase Troponin I High Sens Total Protein Albumin Gastric Occult Blood NEGATIVE COVID-19 (KATELYNN) COVID-19 [employer] Com Blood Type Antibody Screen Crossmatch Imaging Radiologist's Impressions: Impressions Chest X-Ray 04/21/22 05:30 IMPRESSION: No acute pulmonary disease. Assessment and Plan (1) GI bleed: Status: Acute (2) Acute blood loss anemia: Status: Acute (3) Dementia: Status: Acute (4) PAD (peripheral artery disease): Status: Acute (5) Encephalopathy: Status: Acute Plan This is a 66-year-old male with 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 #. 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 Resuscitated with crystalloids in the ER. Also ordered to unit FFP and 2 units PRBC. Consulted GI for assistance. Patient received Protonix 80 mg IV push x1, will continue 40 mg b.i.d. Hold eliquis #. Acute blood loss anemia due to above #. Acute lactic acidosis: Type A due to hypoperfusion. Will repeat #. Acute metabolic encephalopathy: patient nonverbal at baseline but awake, alert and interactive as per discharge summary. He is drowsy and only responding to painful stimulus at the time of admission #. HTN: Hold po antihypertensives #. Seizure disorder: Continue IV keppra #. PAD: On statin #. Alcohol use disorder: on thiamine and folic acid. unclear if pt has h/io cirrhosis and varices #. Hyperglycemia: No h/o DM, initiate Accu-Cheks with sliding scale insulin. Obtain A1c DVT Prohpylaxis: Defer lovenox in setting of GI bleed. Hold tube feeds/npo until mentation improves and acute issue resolve DNR/DNI Admit as inpatient and will require two night minimum hospital stay for close monitoring of hemodynamics. GI consult pending Time Spent With Patient Time: Total time managing care of this patient today ____ minutes. Quality Stroke Does the patient have a stroke diagnosis?: No VTE Prior VTE?: No VTE Risk Level:: Medical - moderate - high VTE Device Contraindication: Treatment Not Indicated VTE Drug Contraindication: Treatment Not Indicated
--- NOTE | 2022-04-21 07:56 | PC.NURSE ---
pt. is lethargic and non verbal. skin pale and jaundice. respond to name. infusing red blood cell, fluids and protonix. pt tolerated well the blood infusion so far. put a vizcaino in, he tolerated that well. now resting comfortably.
[2022-04-21 08:05] LABS: ~Lactic Acid-LAB USE ONLY 1.6 mmol/L (0.5-2.0)
--- NOTE | 2022-04-21 08:15 | P.CNGI_ITS ---
History of Present Illness Data of Consult Service Date: 04/21/22 Requesting physician: Nain Murillo Primary Care Provider: Nonstaff Physician HPI Reason for consult: hematemesis ?66-year-old male with pertinent history of DVT on Eliquis, history of seizures, dementia, essential hypertension, mixed hyperlipidemia, cardiomyopathy, alcohol use disorder, peripheral vascular disease status post left AKA who I am seeing for assessment for acute blood loss anemia. Patient has been non verbal at baseline, hx from chart. Patient was admitted with rectal bleeding and had coffee ground emesis. He was in the hospital and d/c'ed just last week after prolonged stay after getting AKA for leg wound and gangrene, and PEG tube due to aspiration. He did have anemia at that time and eliquis was held but was restarted few days back. He has NGT in place with coffee colored aspirate noted. At time of last admission he had anemia and required blood transfusion. LABS: HGB went from 10 g/dl from 04/16 to 6.5 g/dl today. Review of Systems Review of Systems: Yes Unobtainable due to mental condition and Unobtainable due to mental status PMFSH Past Medical History Medical History Alcohol abuse Blood per rectum Cardiomyopathy Cellulitis Dementia DVT (deep venous thrombosis) DVT of deep femoral vein GERD (gastroesophageal reflux disease) Hepatitis C antibody positive in blood Hypertension Seizure Family History Family History Father No problems noted. Mother No problems noted. Brother Cancer Sister No problems noted. Surgical History Surgical History No pertinent past surgical history Social History Social History Household Members: Unknown / Unable to assess Housing: Unknown / Unable to assess Unable to assess alcohol history related to: Unable to respond Alcohol intake: current Alcohol intake frequency: a few times a week Alcohol type: beer Patient Tobacco Use Status: Tobacco use Unknown Cigarettes Per Day: 7 Substance Use Type: Unknown Advance Directives: Yes Advance Directives on File: Yes Advance Directives Date on File: 10/11/20 service: No Current occupational status: unemployed and disabled Meds Allergies Allergy/AdvReac Type Severity Reaction Status Date / Time No Known Allergies Allergy Verified 04/07/22 13:53 [No Known Allergies*] Active Medications: Current Medications Acetaminophen (Acetaminophen 325 Mg Tablet) 650 mg PO Q6H PRN PRN Reason: Pain, Mild (Pain Scale 1-3) Dextrose (Dextrose 50 % 25 Gm/50 Ml Syringe) 25 gm IVPUSH Q15M PRN; Protocol PRN Reason: per Hypoglycemia Standing Ord. Glucose (Glucose Gel 15 Gm Gel..Gram.) 15 gm PO Q15M PRN; Protocol PRN Reason: per Hypoglycemia Standing Ord. Pantoprazole Sodium 80 mg/ (Sodium Chloride) 100 mls @ 10 mls/hr IV .Q10H [facility] Last Admin: 04/21/22 05:53 Dose: 8 mg/hr, 10 mls/hr Vancomycin HCl 1,000 mg/Vancomycin HCl 750 mg/ Sodium Chloride 535 mls @ 267.5 mls/hr IV ONCE ONE Stop: 04/21/22 08:29 Insulin Human Lispro (Insulin Lispro 100 Unit/Ml 3 Ml Vial) 0 unit SUBCUT Q6H [facility]; Protocol Levetiracetam (Levetiracetam 500 Mg Tablet) 500 mg PO BID [facility] Melatonin (Melatonin 3 Mg Tablet) 6 mg PO BEDTIME PRN PRN Reason: Insomnia Ondansetron HCl (Ondansetron Hcl 4 Mg/2 Ml Vial) 4 mg IVPUSH Q8H PRN PRN Reason: Nausea and Vomiting Pantoprazole Sodium (Pantoprazole Sodium 40 Mg/10 Ml Vial) 40 mg IVPUSH BID@0630,1630 [facility] Pharmacy Consult (Consult Rx Vancomycin Dosing) 1 each MISCELLANE DAILY PRN PRN Reason: Consult order Pharmacy Consult (Consult Rx Perform Med Rec) 1 each MISCELLANE ONCE PRN PRN Reason: Consult order Sodium Chloride (0.9 % Sodium Chloride Flush 3 Ml Syringe) 3 ml IVFLUSH QSHIFT [facility] Home Medications Medication Instructions Recorded Confirmed Last Taken Type tamsulosin 0.4 mg capsule 0.4 mg PO DAILY 04/01/20 04/21/22 Unknown History apixaban 5 mg tablet (Eliquis) 5 mg PO BID 04/21/22 04/21/22 Unknown History gabapentin 600 mg tablet 600 mg feeding tube BID 04/21/22 04/21/22 Unknown History levetiracetam 500 mg tablet 500 mg PO BID 04/21/22 04/21/22 Unknown History olanzapine 20 mg tablet 20 mg PO BEDTIME 04/21/22 04/21/22 Unknown History oxycodone 5 mg tablet 5 mg feeding tube Q6H PRN Pain 04/21/22 04/21/22 Unknown History phenytoin 50 mg chewable tablet 50 mg G-tube BID 04/21/22 04/21/22 Unknown History (Dilantin Infatabs) sertraline 25 mg tablet 25 mg PO DAILY 04/21/22 04/21/22 Unknown History umeclidinium 62.5 mcg/actuation 1 inh inhalation DAILY 04/21/22 04/21/22 Unknown History blister powder for inhalation (Incruse Ellipta) Physical Exam Vital Signs: Vital Signs: Last Vital Signs Temp 98.2 F 04/21/22 07:28 Pulse 117 H 04/21/22 07:28 Resp 20 04/21/22 07:28 BP 130/73 04/21/22 07:28 Pulse Ox 95 04/21/22 07:28 O2 Del Method 04/21/22 07:28 O2 Flow Rate 2.5 04/21/22 06:46 BMI result Body Mass Index 22.4 EXAM: GENERAL: The patient is non verbal, uncomfortable due to NGT VITAL SIGNS:see workflow HEENT: Nonicteric sclerae, PERRLA, EOMI. Oropharynx clear. Moist mucous membranes. Conjunctivae appear pale. No thyroid mass. CHEST: Chest wall is nontender. HEART: Regular rate and rhythm without murmurs. LUNGS: Clear to auscultation bilaterally. ABDOMEN: Soft, positive bowel sounds, nontender, no organomegaly.no flank tenderness, G tube noted in good position, no blood in the G tube SKIN: No rash, no excessive bruising, petechiae, or purpura. NEUROLOGIC: awake, non verbal, nonsensical speech, moving limbs Psych: altered affect MS: AKA left sidw noted Results Labs CBC & Chem 7: 04/21/22 05:23 04/21/22 05:22 Labs: Short CBC 04/21/22 Range/Units 05:23 WBC 20.6 H (4.8-10.8) X10*3/uL Hgb 6.5 L* D (14.0-18.0) g/dl Hct 20.6 L* D (42.0-52.0) % Plt Count 382 D (160-400) X10*3/uL BMP 04/21/22 05:22 Sodium 140 Potassium 4.9 Chloride 112 H Carbon Dioxide 18 L BUN 28 H Creatinine 0.86 Calcium 7.3 L D Liver Function 04/21/22 Range/Units 05:22 Total Bilirubin 0.3 (0.0-1.0) mg/dL AST 18 (5-37) U/L ALT 25 (0-40) U/L Alkaline Phosphatase 129 H (39-117) U/L Albumin 2.1 L (3.5-5.0) g/dL Assessment and Plan (1) Acute blood loss anemia: Status: Acute Plan 1/ Acute blood loss anemia in setting of eliquis use, and recent illness and sickness, may have stress gastritis or peptic ulcer disease. ddx; dieulafoy, esophagitis, AVM, less likely varices PLAN: 1/ keep NPO 2/ ok to remove NGT, can use G tube for aspiration if needed 3/ cont with BID PPI 4/ transfuse as doing, and give K centra, 5/ plan for EGD tomorrow--I called the HCP and he was in agreement with this plan (Ashwin, number in chart [phone]) Time Spent With Patient Time: Total time managing care of this patient today ____ minutes. Procedures Date of Service Date of Service: 04/21/22
[2022-04-21] MEDS: vancomycin HCL 1,000 MG, vancomycin HCL 750 MG in 0.9 % Sodium Chloride 500 ML 267.5 MG IV (08:30)
[2022-04-21 08:35] LABS: Glucose, Whole Blood 111 mg/dL (60-115)
[2022-04-21 09:00] LABS: Estimated Average Glucose 91 mg/dL; Hemoglobin A1c % 4.8 %; Lactic Acid 1.6 mmol/L (0.5-2.0)
[2022-04-21] MEDS: Hum Prothrombin Cplx(PCC)4Fact 2,000 UNIT in Container,Empty 0 ML 480 UNIT IV (11:24)
--- NOTE | 2022-04-21 11:40 | PC.NURSE ---
pt. resting comfortably. he had a large amount of rectal bleeding when we were rolling him in bed to clean him up. hospitalist and GI doc aware. He tolerated second rbc's transfusion. temp after transfusion 100.4. hospitalist aware.
[2022-04-21 12:03] LABS: Glucose, Whole Blood 99 mg/dL (60-115)
--- NOTE | 2022-04-21 13:04 | PC.NURSE ---
pt. pull out his ng. put a new one in. positive placement via auscultation. awaiting xray to confirm placement.
[2022-04-21 14:35] LABS: Glucose, Whole Blood 103 mg/dL (60-115)
[2022-04-21 16:47] LABS: Glucose, Whole Blood 93 mg/dL (60-115)
[2022-04-21 19:05] LABS: Hematocrit 25.1 % (42.0-52.0); Hemoglobin 8.4 g/dl (14.0-18.0)
[2022-04-21] MEDS: 0.9 % Sodium Chloride Flush 3 ML SYRINGE IVFLUSH ×2 (19:17→19:50)
--- NOTE | 2022-04-21 19:20 | PM.EVENT ---
Event Note Date of Service: 04/21/22 Event Note: Nursing staff called because of patient had 1 bowel movement per rectum with blood. Patient is unable to provide any history, vitals are stable patient otherwise moving all extremities and awake, does not look in discomfort. Physical exam: Unchanged from H and PI Assessment and plan: Monitor H&H closely If H&H drop, consider p.r.n. transfusion, GI is also consulted, if any hemodynamically instability-may need ICU. Night staff is aware to follow-up with the patient H&H as well as patient clinically Time Spent With Patient Time: Total time managing care of this patient today ____ minutes.
--- NOTE | 2022-04-21 19:29 | PC.NURSE ---
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 Large amt of dark red blood noted from pt rectum, no BM, MD notified and at bedside. Pt. removed NG tube despite multiple attempts to redirected.
--- NOTE | 2022-04-21 19:35 | PC.NURSE ---
H & H ordered , results pending .
[2022-04-21 19:39] LABS: Glucose, Whole Blood 83 mg/dL (60-115)
--- NOTE | 2022-04-21 22:39 | P.EN_ITS ---
Event Note Date of Service: 04/21/22 Event Note: patient was positive blood cultures 1 out of 2 bottles positive for Gram- positive cocci in chains. Likely contaminant but given the leukocytosis I will start him on ceftriaxone, repeat cultures. Will obtain urine Time Spent With Patient Time: Total time managing care of this patient today ____ minutes.
[2022-04-21 23:02] LABS: Hematocrit 24.2 % (42.0-52.0); Hemoglobin 7.8 g/dl (14.0-18.0)
[2022-04-21 23:07] LABS: INTERNATIONAL NORM RATIO 1.2 (0.9-1.1); Prothrombin Time 13.9 SEC (10.0-13.1)
[2022-04-21] MEDS: cefTRIAXone sodium 1 GM in 0.9 % Sodium Chloride 50 ML IV (23:09)
[2022-04-22] VITALS (8 sets, daily range): BP systolic 105–189; BP diastolic 55–96; PULSE 80–98; RESP 12–20; TEMP 36.4–36.9; O2SAT 96–98; BMI 22.4
[2022-04-22 01:50] LABS: Glucose, Whole Blood 90 mg/dL (60-115)
[2022-04-22 02:25] LABS: Appearance Urine Clear; Color Urine Yellow; Glucose Urine UA Negative (Negative); Leukocyte Esterase Urine Small (1+) (Negative); Nitrite Urine Negative (Negative); PH 5.5 (5.0-9.0); Specific Gravity - Urine 1.015 (1.005-1.025); UMIC TRIGGER UA YES; Urine Blood Negative (Negative); Urine Ketones Negative (Negative); Urine Protein Trace mg/dL (Neg-Trace)
[2022-04-22 02:30] LABS: Bacteria Urine None Seen (None Seen); RBC Urine 0-2 /HPF (0-2); Squamous Epithelial Cell Urine 0-2 /HPF (0-2)
[2022-04-22] MEDS: Pantoprazole Sodium 80 MG in 0.9 % Sodium Chloride 80 ML 10 MG IV ×2 (04:08→17:42)
[2022-04-22] MEDS: iohexoL 350 MG/ML 100 ML INFUS..BTL 70 ML IV (05:36)
--- NOTE | 2022-04-22 05:52 | PM.EVENT ---
Event Note Date of Service: 04/22/22 Event Note: patient developed a left facial droop around 05:10. Last well-known time around 4am. has an NIH score of [address] head which is negative for any bleed or acute intracranial pathology spoke to Neurology, given his high risk of bleed patient not a candidate for tPA will obtain MRI, as well as CT angiogram of head and neck Time Spent With Patient Time: Total time managing care of this patient today ____ minutes.
[2022-04-22 06:01] LABS: Glucose, Whole Blood 88 mg/dL (60-115)
[2022-04-22] MEDS: Dextrose 50 % 25 GM/50 ML SYRINGE IVPUSH (06:03)
[2022-04-22 06:33] LABS: Glucose, Whole Blood 186 mg/dL (60-115)
[2022-04-22 07:00] LABS: MANUAL DIFF FLAG NO
[2022-04-22 07:21] LABS: Basophils Percent Auto 0.3 % (0-2); Eosinophils Absolute Auto 0.5 X10*3/uL (0.0-0.4); Eosinophils Percent Auto 3.7 % (0-4); Hematocrit 23.7 % (42.0-52.0); Hemoglobin 7.7 g/dl (14.0-18.0); Imm Gran Abs Auto 0.08 X10*3/uL (0.00-0.03); Imm Gran Pct Auto 0.7 % (0.0-0.4); Lymphocytes Absolute Auto 2.3 X10*3/uL (1.2-4.9); Lymphocytes Percent Auto 19.2 % (20-40); Mean Corpuscular HGB Conc 32.5 g/dl (31.0-36.0); Mean Corpuscular Hemoglobin 30.9 pg (27.0-33.0); Mean Corpuscular Volume 95.2 fL (80.0-98.0); Mean Platelet Volume 8.9 fL (9.4-12.4); Monocytes Percent Auto 8.6 % (2-11); Neutrophils Absolute Auto 8.1 x10*3/uL (2.0-8.3); Neutrophils Percent Auto 67.5 % (45-73); Platelet Count 295 X10*3/uL (160-400); Red Blood Count 2.49 X10*6/uL (4.60-5.80); Red Cell Distribution Width 15.3 % (11.0-16.0); White Blood Count 12.1 X10*3/uL (4.8-10.8)
[2022-04-22 07:39] LABS: Anion Gap 10 (12-20); Blood Urea Nitrogen 9 mg/dL (9-16); Calcium 7.9 mg/dL (8.4-10.2); Carbon Dioxide 24 mmol/L (22-29); Chloride 109 mmol/L (96-108); Creatinine Clr Calc Pharmacy 128.5; Estimated Glomerular Filt Rate > 60; Glucose Random 171 mg/dL (60-115); Potassium 3.8 mmol/L (3.3-5.1); Sodium 139 mmol/L (135-145)
[2022-04-22 07:51] LABS: Glucose, Whole Blood 152 mg/dL (60-115)
--- NOTE | 2022-04-22 08:53 | MHC.CM.PN ---
Patient has a diagnosis of Dementia; CM spoke with Friend/HCP/Ashwin Aurea [phone] and addressed IMM with him (original to be mailed certified letter to Ashwin and a copy has been placed on the chart). Returning to [facility] is the goal and CM has initiated and will follow for dc planning. Patient has received Moderna/Covid vax x4.
[2022-04-22] MEDS: 0.9 % Sodium Chloride Flush 3 ML SYRINGE IVFLUSH ×2 (09:39→22:38)
[2022-04-22] MEDS: Metoprolol Tartrate 5 MG/5 ML VIAL IVPUSH (11:22)
--- NOTE | 2022-04-22 11:30 | PHA.PROG ---
Admission Date/Time: April 21, 2022 07:27 Indication: Bacteremia Weight in k kg Adjusted body weight in Kg: [place] body weight in Kg: Obesity Dosing Indication % IBW: Serum Creatinine - Last 168 Hours 04/21/22 04/22/22 05:22 06:53 Creatinine 0.86 0.56 Estimated CrCl and GFR - Last 168 Hours 04/21/22 04/22/22 05:22 06:53 Estim Creat Clear Calc 83.7 128.5 Estimated GFR > 60 > 60 Vancomycin Loading Dose: 1750mg Current Vancomycin Dosing Regimen: 750 Q12H Vancomycin Monitoring using AUC goal of 400 - 600 range with trough as surrogate marker: 487mg/L Date and Time for next Vancomycin Level to be drawn: 04/23/22 @1000 Pharmacist Comments on Vancomycin Plan: Load was given a day before vanco consult was put in by Dr. Van, will continue to monitor Vancomycin dosing will take advantage of [employer] as a clinical decision support tool that uses Bayesian modeling to calculate individual patient's pharmacokinetic parameters and forecast the patient's drug concentration time course with the target goal AUC 24 range of 400 - 600 mg/L/hr.
[2022-04-22] MEDS: vancomycin HCL 750 MG in 0.9 % Sodium Chloride 250 ML 265 MG IV (12:34)
[2022-04-22] MEDS: levETIRAcetam 500 MG/5 ML VIAL IV (12:37)
--- NOTE | 2022-04-22 13:47 | MHC.SHP ---
Pre-Procedural Eval Section A Date of Service: 04/22/22 The patient is an INPATIENT: Yes The History & Physical has been completed within 30 days and I have reviewed it.: Yes Section B Chief Complaint: GI Bleed Allergies: Allergies Allergy/AdvReac Type Severity Reaction Status Date / Time No Known Allergies Allergy Verified 04/07/22 13:53 [No Known Allergies*] Plan I have reviewed the history and physical and performed a pertinent physical examination on my patient. No changes have occurred unless specified. Time Spent With Patient Time: Total time managing care of this patient today ____ minutes.
--- NOTE | 2022-04-22 13:47 | W.PM.OPN ---
Operative Note Operative Note Date of Service: 04/22/22 Narrative: Procedure Description: EGD Indication: acute blood loss anemia Anesthesia: MAC FLEXIBLE TRANSORAL UPPER GASTROINTESTINAL ENDOSCOPY UPPER ENDOSCOPY Consent: Indications for the procedure and potential complications of bleeding, perforation, reaction to medications and missed diagnosis were discussed with the patient and informed consent was obtained. Instrument: Olympus GIF H 190 J mid size upper endoscope Monitoring: Vital signs and clinical assessment, continuous EKG monitoring, Pulse oximetry, Carbon Dioxide monitoring and blood pressure monitoring were done throughout the procedure. Procedure: The patient was placed in the left lateral decubitis position and pre-procedure medications were administered and a bite block was placed. The endoscope was inserted into the mouth and advanced under direct vision to the third part of duodenum. A careful inspection was made as the upper endoscope was withdrawn including a retroflexed examination of the proximal stomach; Findings and interventions are described below. Findings: Larynx:normal Esophagus: GE junction at 38 cm, diaphragm hiatus at 38 cm, mild esophagitis noted Stomach: Patchy gastric erythema. Biopsies were obtained. Grade 2 flap valve on retroflexed examination of the cardia. Duodenum: 8-10 mm duodenal bulb ulcer noted with visible vessel (Mike grade IIa), an OTC clip was applied with good effect. Intervention: Biopsies as noted above, clip placement Impression/Findings: gastritis esophagitis duodenal ulcer with visible vessel PLAN: can use G tube tonight can restart eliquis in 24-48 hrs would cont with PPI and carafate indefinitely if h pylori pos then treat
--- NOTE | 2022-04-22 13:50 | P.CONAN_ITS ---
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 (Acute) Pneumonia (Acute) Sepsis (Acute) Dementia (Acute) PAD (peripheral artery disease) (Acute) Ulcer of foot (Acute) Thrush, oral (Acute) Alcohol withdrawal (Acute) Encephalopathy (Acute) Hepatitis (Acute) Encephalopathy (Acute) UTI (urinary tract infection) (Acute) Seizure (Acute) Atherosclerotic cardiovascular disease (Acute) Abnormal echocardiogram findings without diagnosis (Acute) Smoking (Acute) Essential hypertension (Acute) Hypertension (Acute) Cardiomyopathy (Acute) B12 deficiency (Acute) Elevated troponin (Acute) Hyperammonemia (Acute) Hypomagnesemia (Acute) Screening for colon cancer (Acute) Hepatitis C antibody positive in blood (Acute) GERD (gastroesophageal reflux disease) (Acute) Past Medical History Medical History Alcohol abuse Blood per rectum Cardiomyopathy Cellulitis Dementia DVT (deep venous thrombosis) DVT of deep femoral vein GERD (gastroesophageal reflux disease) Hepatitis C antibody positive in blood Hypertension Seizure Family History Family History Father No problems noted. Mother No problems noted. Brother Cancer Sister No problems noted. Family history of problems with anesthesia: No Surgical History Surgical History No pertinent past surgical history History of Problems with Anesthesia: Unobtainable Social History Social History Household Members: Unknown / Unable to assess Housing: Unknown / Unable to assess Unable to assess alcohol history related to: Unable to respond Alcohol intake: current Alcohol intake frequency: other Alcohol type: beer Patient Tobacco Use Status: Former Tobacco user Cigarettes Per Day: 7 Use of substances other than those prescribed or required for medical reasons: No Substance Use Type: Unknown Currently Displaying Signs/Symptoms of Drug Intoxication Withdrawal: No Advance Directives: Yes Advance Directives on File: Yes Advance Directives Date on File: 10/11/20 Poor oral hygiene: Yes service: No Current occupational status: unemployed and disabled Meds Allergies Allergy/AdvReac Type Severity Reaction Status Date / Time No Known Allergies Allergy Verified 04/07/22 13:53 [No Known Allergies*] Active Medications: Current Medications Acetaminophen (Acetaminophen 325 Mg Tablet) 650 mg PO Q6H PRN PRN Reason: Pain, Mild (Pain Scale 1-3) Dextrose (Dextrose 50 % 25 Gm/50 Ml Syringe) 25 gm IVPUSH Q15M PRN; Protocol PRN Reason: per Hypoglycemia Standing Ord. Last Admin: 04/22/22 06:03 Dose: 25 gm Glucose (Glucose Gel 15 Gm Gel..Gram.) 15 gm PO Q15M PRN; Protocol PRN Reason: per Hypoglycemia Standing Ord. Pantoprazole Sodium 80 mg/ (Sodium Chloride) 100 mls @ 10 mls/hr IV .Q10H [facility] Last Infusion: 04/22/22 11:23 Dose: 8 mg/hr, 10 mls/hr Ceftriaxone Sodium 1 gm/ (Sodium Chloride) 50 mls @ 100 mls/hr IV Q24H [facility] Last Infusion: 04/22/22 00:18 Dose: Infused Vancomycin HCl 750 mg/ Sodium (Chloride) 265 mls @ 265 mls/hr IV Q12H [facility] Last Admin: 04/22/22 12:34 Dose: 265 mls/hr Insulin Human Lispro (Insulin Lispro 100 Unit/Ml 3 Ml Vial) 0 unit SUBCUT Q6H [facility]; Protocol Last Admin: 04/22/22 08:51 Dose: Not Given Levetiracetam (Levetiracetam 500 Mg/5 Ml Vial) 500 mg IV BID [facility] Last Admin: 04/22/22 12:37 Dose: 500 mg Melatonin (Melatonin 3 Mg Tablet) 6 mg PO BEDTIME PRN PRN Reason: Insomnia Ondansetron HCl (Ondansetron Hcl 4 Mg/2 Ml Vial) 4 mg IVPUSH Q8H PRN PRN Reason: Nausea and Vomiting Ondansetron HCl (Ondansetron Hcl 4 Mg/2 Ml Vial) 4 mg IVPUSH ONCE PRN PRN Reason: Nausea and Vomiting Pharmacy Consult (Consult Rx Perform Med Rec) 1 each MISCELLANE ONCE PRN PRN Reason: Consult order Pharmacy Consult (Consult Rx Vancomycin Dosing) 1 each MISCELLANE DAILY PRN PRN Reason: Consult order Sodium Chloride (0.9 % Sodium Chloride Flush 3 Ml Syringe) [facility] Admin: 04/22/22 09:39 Dose: 3 ml Home Medications Medication Instructions Recorded Confirmed Last Taken Type tamsulosin 0.4 mg capsule 0.4 mg PO DAILY 04/01/20 04/21/22 Unknown History apixaban 5 mg tablet (Eliquis) 5 mg PO BID 04/21/22 04/21/22 Unknown History gabapentin 600 mg tablet 600 mg feeding tube BID 04/21/22 04/21/22 Unknown History levetiracetam 500 mg tablet 500 mg PO BID 04/21/22 04/21/22 Unknown History olanzapine 20 mg tablet 20 mg PO BEDTIME 04/21/22 04/21/22 Unknown History oxycodone 5 mg tablet 5 mg feeding tube Q6H PRN Pain 04/21/22 04/21/22 Unknown History phenytoin 50 mg chewable tablet 50 mg G-tube BID 04/21/22 04/21/22 Unknown History (Dilantin Infatabs) sertraline 25 mg tablet 25 mg PO DAILY 04/21/22 04/21/22 Unknown History umeclidinium 62.5 mcg/actuation 1 inh inhalation DAILY 04/21/22 04/21/22 Unknown History blister powder for inhalation (Incruse Ellipta) Exam Exam Date and Time: April 22, 2022 1350 Height,Weight and Vital Signs: Height 5 ft 10 in Weight 71 kg Last Vital Signs Temp 98.4 F 04/22/22 10:00 Pulse 87 04/22/22 10:00 Resp 12 04/22/22 10:00 BP 143/68 H 04/22/22 10:00 Pulse Ox 96 04/22/22 10:00 O2 Del Method 04/22/22 10:00 O2 Flow Rate 2.5 04/21/22 06:46 Pertinent Lab Results Pertinent Lab Results: Laboratory Tests 04/21/22 04/21/22 04/21/22 05:22 05:22 05:23 WBC 20.6 H RBC 2.16 L D Hgb 6.5 L* D Hct 20.6 L* D MCV 95.4 MCH 30.1 MCHC 31.6 RDW 15.7 Plt Count 382 D MPV 8.8 L Immature Gran % (Auto) 4.1 H Neut % (Auto) 80.0 H Lymph % (Auto) 8.5 L [place] % (Auto) 7.1 Eos % (Auto) 0.1 Baso % (Auto) 0.2 Lymph # (Auto) 1.7 [place] # (Auto) 1.5 H Eos # (Auto) 0.0 Baso # (Auto) 0.1 Abs Immat Gran (auto) 0.85 H Absolute Neuts (auto) 16.5 H Absolute Nucleated RBC 0.000 Nucleated RBC % (auto) 0.0 Smear Path Review SEE NOTE PT INR VBG pH VBG pCO2 VBG pO2 VBG HCO3 VBG O2 Saturation VBG Base Excess Sodium 140 Potassium 4.9 Chloride 112 H Carbon Dioxide 18 L Anion Gap 15 BUN 28 H Creatinine 0.86 Estim Creat Clear Calc 83.7 Estimated GFR > 60 POC Glucose Random Glucose 222 H Estimat Average Glucose Hemoglobin A1c % Lactic Acid Lactic Acid F/U @ 2Hr Calcium 7.3 L D Total Bilirubin 0.3 AST 18 ALT 25 Alkaline Phosphatase 129 H Troponin I High Sens Total Protein 4.8 L Albumin 2.1 L Urine Color Urine Appearance Urine pH Ur Specific [place] Urine Protein Urine Glucose (UA) Urine Ketones Urine Blood Urine Nitrite Ur Leukocyte Esterase Urine RBC Urine WBC Ur Squamous Epith Cells Urine Bacteria Hyaline Casts Gastric Occult Blood COVID-19 (KATELYNN) COVID-19 Clin Com Blood Type B Positive Antibody Screen NEGATIVE Crossmatch See Detail 04/21/22 04/21/22 04/21/22 05:23 05:23 05:23 WBC RBC Hgb Hct MCV MCH MCHC RDW Plt Count MPV Immature Gran % (Auto) Neut % (Auto) Lymph % (Auto) [place] % (Auto) Eos % (Auto) Baso % (Auto) Lymph # (Auto) [place] # (Auto) Eos # (Auto) Baso # (Auto) Abs Immat Gran (auto) Absolute Neuts (auto) Absolute Nucleated RBC Nucleated RBC % (auto) Smear Path Review PT 19.6 H INR 1.7 H VBG pH VBG pCO2 VBG pO2 VBG HCO3 VBG O2 Saturation VBG Base Excess Sodium Potassium Chloride Carbon Dioxide Anion Gap BUN Creatinine Estim Creat Clear Calc Estimated GFR POC Glucose Random Glucose Estimat Average Glucose Hemoglobin A1c % Lactic Acid Lactic Acid F/U @ 2Hr Calcium Total Bilirubin AST ALT Alkaline Phosphatase Troponin I High Sens 12.8 Total Protein Albumin Urine Color Urine Appearance Urine pH Ur Specific [place] Urine Protein Urine Glucose (UA) Urine Ketones Urine Blood Urine Nitrite Ur Leukocyte Esterase Urine RBC Urine WBC Ur Squamous Epith Cells Urine Bacteria Hyaline Casts Gastric Occult Blood COVID-19 (KATELYNN) Negative COVID-19 Clin Com See Note Blood Type Antibody Screen Crossmatch 04/21/22 04/21/22 04/21/22 05:23 05:29 05:43 WBC RBC Hgb Hct MCV MCH MCHC RDW Plt Count MPV Immature Gran % (Auto) Neut % (Auto) Lymph % (Auto) [place] % (Auto) Eos % (Auto) Baso % (Auto) Lymph # (Auto) [place] # (Auto) Eos # (Auto) Baso # (Auto) Abs Immat Gran (auto) Absolute Neuts (auto) Absolute Nucleated RBC Nucleated RBC % (auto) Smear Path Review PT INR VBG pH 7.32 VBG pCO2 33 VBG pO2 46 VBG HCO3 17 L VBG O2 Saturation 65.0 VBG Base Excess -7.7 Sodium Potassium Chloride Carbon Dioxide Anion Gap BUN Creatinine Estim Creat Clear Calc Estimated GFR POC Glucose Random Glucose Estimat Average Glucose Hemoglobin A1c % Lactic Acid Cancelled 4.1 H* Lactic Acid F/U @ 2Hr Calcium Total Bilirubin AST ALT Alkaline Phosphatase Troponin I High Sens Total Protein Albumin Urine Color Urine Appearance Urine pH Ur Specific [place] Urine Protein Urine Glucose (UA) Urine Ketones Urine Blood Urine Nitrite Ur Leukocyte Esterase Urine RBC Urine WBC Ur Squamous Epith Cells Urine Bacteria Hyaline Casts Gastric Occult Blood COVID-19 (KATELYNN) COVID-19 Clin Com Blood Type Antibody Screen Crossmatch 04/21/22 04/21/22 04/21/22 06:35 07:50 08:24 WBC RBC Hgb Hct MCV MCH MCHC RDW Plt Count MPV Immature Gran % (Auto) Neut % (Auto) Lymph % (Auto) [place] % (Auto) Eos % (Auto) Baso % (Auto) Lymph # (Auto) [place] # (Auto) Eos # (Auto) Baso # (Auto) Abs Immat Gran (auto) Absolute Neuts (auto) Absolute Nucleated RBC Nucleated RBC % (auto) Smear Path Review PT INR VBG pH VBG pCO2 VBG pO2 VBG HCO3 VBG O2 Saturation VBG Base Excess Sodium Potassium Chloride Carbon Dioxide Anion Gap BUN Creatinine Estim Creat Clear Calc Estimated GFR POC Glucose 111 Random Glucose Estimat Average Glucose Hemoglobin A1c % Lactic Acid Lactic Acid F/U @ 2Hr 1.6 Calcium Total Bilirubin AST ALT Alkaline Phosphatase Troponin I High Sens Total Protein Albumin Urine Color Urine Appearance Urine pH Ur Specific [place] Urine Protein Urine Glucose (UA) Urine Ketones Urine Blood Urine Nitrite Ur Leukocyte Esterase Urine RBC Urine WBC Ur Squamous Epith Cells Urine Bacteria Hyaline Casts Gastric Occult Blood NEGATIVE COVID-19 (KATELYNN) COVID-19 [employer] Blood Type Antibody Screen Crossmatch 04/21/22 04/21/22 04/21/22 08:46 08:46 12:00 WBC RBC Hgb Hct MCV MCH MCHC RDW Plt Count MPV Immature Gran % (Auto) Neut % (Auto) Lymph % (Auto) [place] % (Auto) Eos % (Auto) Baso % (Auto) Lymph # (Auto) [place] # (Auto) Eos # (Auto) Baso # (Auto) Abs Immat Gran (auto) Absolute Neuts (auto) Absolute Nucleated RBC Nucleated RBC % (auto) Smear Path Review PT INR VBG pH VBG pCO2 VBG pO2 VBG HCO3 VBG O2 Saturation VBG Base Excess Sodium Potassium Chloride Carbon Dioxide Anion Gap BUN Creatinine Estim Creat Clear Calc Estimated GFR POC Glucose 99 Random Glucose Estimat Average Glucose 91 Hemoglobin A1c % 4.8 Lactic Acid 1.6 Lactic Acid F/U @ 2Hr Calcium Total Bilirubin AST ALT Alkaline Phosphatase Troponin I High Sens Total Protein Albumin Urine Color Urine Appearance Urine pH Ur Specific [place] Urine Protein Urine Glucose (UA) Urine Ketones Urine Blood Urine Nitrite Ur Leukocyte Esterase Urine RBC Urine WBC Ur Squamous Epith Cells Urine Bacteria Hyaline Casts Gastric Occult Blood COVID-19 (KATELYNN) COVID-19 [employer] Blood Type Antibody Screen Crossmatch 04/21/22 04/21/22 04/21/22 14:31 16:43 18:46 WBC RBC Hgb 8.4 L D Hct 25.1 L D MCV MCH MCHC RDW Plt Count MPV Immature Gran % (Auto) Neut % (Auto) Lymph % (Auto) [place] % (Auto) Eos % (Auto) Baso % (Auto) Lymph # (Auto) [place] # (Auto) Eos # (Auto) Baso # (Auto) Abs Immat Gran (auto) Absolute Neuts (auto) Absolute Nucleated RBC Nucleated RBC % (auto) Smear Path Review PT INR VBG pH VBG pCO2 VBG pO2 VBG HCO3 VBG O2 Saturation VBG Base Excess Sodium Potassium Chloride Carbon Dioxide Anion Gap BUN Creatinine Estim Creat Clear Calc Estimated GFR POC Glucose 103 93 Random Glucose Estimat Average Glucose Hemoglobin A1c % Lactic Acid Lactic Acid F/U @ 2Hr Calcium Total Bilirubin AST ALT Alkaline Phosphatase Troponin I High Sens Total Protein Albumin Urine Color Urine Appearance Urine pH Ur Specific [place] Urine Protein Urine Glucose (UA) Urine Ketones Urine Blood Urine Nitrite Ur Leukocyte Esterase Urine RBC Urine WBC Ur Squamous Epith Cells Urine Bacteria Hyaline Casts Gastric Occult Blood COVID-19 (KATELYNN) COVID-19 [employer] Blood Type Antibody Screen Crossmatch 04/21/22 04/21/22 04/21/22 19:36 22:31 22:31 WBC RBC Hgb 7.8 L Hct 24.2 L MCV MCH MCHC RDW Plt Count MPV Immature Gran % (Auto) Neut % (Auto) Lymph % (Auto) [place] % (Auto) Eos % (Auto) Baso % (Auto) Lymph # (Auto) [place] # (Auto) Eos # (Auto) Baso # (Auto) Abs Immat Gran (auto) Absolute Neuts (auto) Absolute Nucleated RBC Nucleated RBC % (auto) Smear Path Review PT 13.9 H INR 1.2 H VBG pH VBG pCO2 VBG pO2 VBG HCO3 VBG O2 Saturation VBG Base Excess Sodium Potassium Chloride Carbon Dioxide Anion Gap BUN Creatinine Estim Creat Clear Calc Estimated GFR POC Glucose 83 Random Glucose Estimat Average Glucose Hemoglobin A1c % Lactic Acid Lactic Acid F/U @ 2Hr Calcium Total Bilirubin AST ALT Alkaline Phosphatase Troponin I High Sens Total Protein Albumin Urine Color Urine Appearance Urine pH Ur Specific [place] Urine Protein Urine Glucose (UA) Urine Ketones Urine Blood Urine Nitrite Ur Leukocyte Esterase Urine RBC Urine WBC Ur Squamous Epith Cells Urine Bacteria Hyaline Casts Gastric Occult Blood COVID-19 (KATELYNN) COVID-19 [employer] Blood Type Antibody Screen Crossmatch 04/22/22 04/22/22 04/22/22 00:14 01:47 05:58 WBC RBC Hgb Hct MCV MCH MCHC RDW Plt Count MPV Immature Gran % (Auto) Neut % (Auto) Lymph % (Auto) [place] % (Auto) Eos % (Auto) Baso % (Auto) Lymph # (Auto) [place] # (Auto) Eos # (Auto) Baso # (Auto) Abs Immat Gran (auto) Absolute Neuts (auto) Absolute Nucleated RBC Nucleated RBC % (auto) Smear Path Review PT INR VBG pH VBG pCO2 VBG pO2 VBG HCO3 VBG O2 Saturation VBG Base Excess Sodium Potassium Chloride Carbon Dioxide Anion Gap BUN Creatinine Estim Creat Clear Calc Estimated GFR POC Glucose 90 88 Random Glucose Estimat Average Glucose Hemoglobin A1c % Lactic Acid Lactic Acid F/U @ 2Hr Calcium Total Bilirubin AST ALT Alkaline Phosphatase Troponin I High Sens Total Protein Albumin Urine Color Yellow Urine Appearance Clear Urine pH 5.5 Ur Specific [place] 1.015 Urine Protein Trace Urine Glucose (UA) Negative Urine Ketones Negative Urine Blood Negative Urine Nitrite Negative Ur Leukocyte Esterase Small (1+) H Urine RBC 0-2 Urine WBC 11-20 H Ur Squamous Epith Cells 0-2 Urine Bacteria None Seen Hyaline Casts 3-5 Gastric Occult Blood COVID-19 (KATELYNN) COVID-19 Clin Com Blood Type Antibody Screen Crossmatch 04/22/22 04/22/22 04/22/22 06:30 06:53 06:53 WBC 12.1 H RBC 2.49 L Hgb 7.7 L Hct 23.7 L MCV 95.2 MCH 30.9 MCHC 32.5 RDW 15.3 Plt Count 295 MPV 8.9 L Immature Gran % (Auto) 0.7 H Neut % (Auto) 67.5 Lymph % (Auto) 19.2 L [place] % (Auto) 8.6 Eos % (Auto) 3.7 Baso % (Auto) 0.3 Lymph # (Auto) 2.3 [place] # (Auto) 1.0 Eos # (Auto) 0.5 H Baso # (Auto) 0.0 Abs Immat Gran (auto) 0.08 H Absolute Neuts (auto) 8.1 Absolute Nucleated RBC 0.000 Nucleated RBC % (auto) 0.0 Smear Path Review PT INR VBG pH VBG pCO2 VBG pO2 VBG HCO3 VBG O2 Saturation VBG Base Excess Sodium 139 Potassium 3.8 D Chloride 109 H Carbon Dioxide 24 Anion Gap 10 L BUN 9 Creatinine 0.56 Estim Creat Clear Calc 128.5 Estimated GFR > 60 POC Glucose 186 H Random Glucose 171 H Estimat Average Glucose Hemoglobin A1c % Lactic Acid Lactic Acid F/U @ 2Hr Calcium 7.9 L D Total Bilirubin AST ALT Alkaline Phosphatase Troponin I High Sens Total Protein Albumin Urine Color Urine Appearance Urine pH Ur Specific [place] Urine Protein Urine Glucose (UA) Urine Ketones Urine Blood Urine Nitrite Ur Leukocyte Esterase Urine RBC Urine WBC Ur Squamous Epith Cells Urine Bacteria Hyaline Casts Gastric Occult Blood COVID-19 (KATELYNN) COVID-19 [employer] Com Blood Type Antibody Screen Crossmatch 04/22/22 07:09 WBC RBC Hgb Hct MCV MCH MCHC RDW Plt Count MPV Immature Gran % (Auto) Neut % (Auto) Lymph % (Auto) [place] % (Auto) Eos % (Auto) Baso % (Auto) Lymph # (Auto) [place] # (Auto) Eos # (Auto) Baso # (Auto) Abs Immat Gran (auto) Absolute Neuts (auto) Absolute Nucleated RBC Nucleated RBC % (auto) Smear Path Review PT INR VBG pH VBG pCO2 VBG pO2 VBG HCO3 VBG O2 Saturation VBG Base Excess Sodium Potassium Chloride Carbon Dioxide Anion Gap BUN Creatinine Estim Creat Clear Calc Estimated GFR POC Glucose 152 H Random Glucose Estimat Average Glucose Hemoglobin A1c % Lactic Acid Lactic Acid F/U @ 2Hr Calcium Total Bilirubin AST ALT Alkaline Phosphatase Troponin I High Sens Total Protein Albumin Urine Color Urine Appearance Urine pH Ur Specific [place] Urine Protein Urine Glucose (UA) Urine Ketones Urine Blood Urine Nitrite Ur Leukocyte Esterase Urine RBC Urine WBC Ur Squamous Epith Cells Urine Bacteria Hyaline Casts Gastric Occult Blood COVID-19 (KATELYNN) COVID-19 [facility] Com Blood Type Antibody Screen Crossmatch Assessment and Plan Final Anesthetic Review Family History of Problems with Anesthesia: No History of Problems with Anesthesia: Unobtainable NPO: Yes ASA Class: IV, V and Emergency Final Preanesthetic Review: No Changes in Pt Med Stat, Meds/Allgs Chart Reviewed, Consent Obtained/Reviewed and Anes Risks/Benef Reviewed Patient Risk: High Procedure Risk: Low Anesthetic Plan Anesthetic Plan: MAC: Disposition: Standard PACU
[2022-04-22 14:27] LABS: Glucose, Whole Blood 73 mg/dL (60-115)
--- NOTE | 2022-04-22 15:56 | W.PM.IDCN ---
History of Present Illness Data of Consult Service Date: 04/22/22 Requesting physician: Erika Van Primary Care Provider: Nonstaff Physician HPI Reason for consult: bacteremia He was recently in hospital. He represents with weakness and UGI bleed (getting endoscopy). He is sedate Blood cultures enterococcus and gram negative stacey. [facility] Past Medical History Medical History Alcohol abuse Blood per rectum Cardiomyopathy Cellulitis Dementia DVT (deep venous thrombosis) DVT of deep femoral vein GERD (gastroesophageal reflux disease) Hepatitis C antibody positive in blood Hypertension Seizure Family History Family History Father No problems noted. Mother No problems noted. Brother Cancer Sister No problems noted. Family history: reviewed and not pertinent Surgical History Surgical History No pertinent past surgical history Social History Social History Household Members: Unknown / Unable to assess Housing: Unknown / Unable to assess Unable to assess alcohol history related to: Unable to respond Alcohol intake: current Alcohol intake frequency: other Alcohol type: beer Patient Tobacco Use Status: Former Tobacco user Cigarettes Per Day: 7 Use of substances other than those prescribed or required for medical reasons: No Substance Use Type: Unknown Currently Displaying Signs/Symptoms of Drug Intoxication Withdrawal: No Advance Directives: Yes Advance Directives on File: Yes Advance Directives Date on File: 10/11/20 Poor oral hygiene: Yes service: No Current occupational status: unemployed and disabled Meds Allergies Allergy/AdvReac Type Severity Reaction Status Date / Time No Known Allergies Allergy Verified 04/07/22 13:53 [No Known Allergies*] Active Medications: Current Medications Acetaminophen (Acetaminophen 325 Mg Tablet) 650 mg PO Q6H PRN PRN Reason: Pain, Mild (Pain Scale 1-3) Dextrose (Dextrose 50 % 25 Gm/50 Ml Syringe) 25 gm IVPUSH Q15M PRN; Protocol PRN Reason: per Hypoglycemia Standing Ord. Last Admin: 04/22/22 06:03 Dose: 25 gm Glucose (Glucose Gel 15 Gm Gel..Gram.) 15 gm PO Q15M PRN; Protocol PRN Reason: per Hypoglycemia Standing Ord. Pantoprazole Sodium 80 mg/ (Sodium Chloride) 100 mls @ 10 mls/hr IV .Q10H [facility] Last Infusion: 04/22/22 11:23 Dose: 8 mg/hr, 10 mls/hr Ceftriaxone Sodium 1 gm/ (Sodium Chloride) 50 mls @ 100 mls/hr IV Q24H [facility] Last Infusion: 04/22/22 00:18 Dose: Infused Vancomycin HCl 750 mg/ Sodium (Chloride) 265 mls @ 265 mls/hr IV Q12H [facility] Last Infusion: 04/22/22 13:40 Dose: Infused Insulin Human Lispro (Insulin Lispro 100 Unit/Ml 3 Ml Vial) 0 unit SUBCUT Q6H [facility]; Protocol Last Admin: 04/22/22 14:23 Dose: Not Given Levetiracetam (Levetiracetam 500 Mg/5 Ml Vial) 500 mg IV BID [facility] Last Admin: 04/22/22 12:37 Dose: 500 mg Melatonin (Melatonin 3 Mg Tablet) 6 mg PO BEDTIME PRN PRN Reason: Insomnia Ondansetron HCl (Ondansetron Hcl 4 Mg/2 Ml Vial) 4 mg IVPUSH Q8H PRN PRN Reason: Nausea and Vomiting Ondansetron HCl (Ondansetron Hcl 4 Mg/2 Ml Vial) 4 mg IVPUSH ONCE PRN PRN Reason: Nausea and Vomiting Pharmacy Consult (Consult Rx Perform Med Rec) 1 each MISCELLANE ONCE PRN PRN Reason: Consult order Pharmacy Consult (Consult Rx Vancomycin Dosing) 1 each MISCELLANE DAILY PRN PRN Reason: Consult order Sodium Chloride (0.9 % Sodium Chloride Flush 3 Ml Syringe) 3 ml IVFLUSH QSHIFT [facility] Last Admin: 04/22/22 09:39 Dose: 3 ml Home Medications Medication Instructions Recorded Confirmed Last Taken Type tamsulosin 0.4 mg capsule 0.4 mg PO DAILY 04/01/20 04/21/22 Unknown History apixaban 5 mg tablet (Eliquis) 5 mg PO BID 04/21/22 04/21/22 Unknown History gabapentin 600 mg tablet 600 mg feeding tube BID 04/21/22 04/21/22 Unknown History levetiracetam 500 mg tablet 500 mg PO BID 04/21/22 04/21/22 Unknown History olanzapine 20 mg tablet 20 mg PO BEDTIME 04/21/22 04/21/22 Unknown History oxycodone 5 mg tablet 5 mg feeding tube Q6H PRN Pain 04/21/22 04/21/22 Unknown History phenytoin 50 mg chewable tablet 50 mg G-tube BID 04/21/22 04/21/22 Unknown History (Dilantin Infatabs) sertraline 25 mg tablet 25 mg PO DAILY 04/21/22 04/21/22 Unknown History umeclidinium 62.5 mcg/actuation 1 inh inhalation DAILY 04/21/22 04/21/22 Unknown History blister powder for inhalation (Incruse Ellipta) Physical Exam Vital Signs: Vital Signs: Last Vital Signs Temp 97.6 F 04/22/22 15:30 Pulse 81 04/22/22 15:30 Resp 14 04/22/22 15:30 BP 156/80 H 04/22/22 15:30 Pulse Ox 98 04/22/22 15:30 O2 Del Method 04/22/22 15:30 O2 Flow Rate 2.5 04/21/22 06:46 BMI result Body Mass Index 22.4 Const: General: cooperative HEENT: Head: Yes normal to inspection Face and sinus: Yes normal facial exam Mouth: Normal oral and palatal mucosa present Teeth and gingiva: dentition normal Eyes: General: appearance normal, both eyes and all related structures Pupils: Equal, round and reactive pupils present Resp: Effort & Inspection: normal respiratory effort Cardio: Rate: regular rate Rhythm: regular rhythm GI: Palpation (GI): Soft to palpation and nontender : General: Yes no CVA tenderness Back/Spine/Pelvis: Back: no CVA tenderness Skin: General skin exam: no rashes or lesions noted Neuro: General: moves all extremities Cranial nerves: Yes Equal, round and reactive pupils present Extrem: General: Yes normal to inspection Psych: Other: sedate Results Labs CBC & Chem 7: 04/22/22 06:53 04/22/22 06:53 Labs: Short CBC 04/21/22 04/21/22 04/22/22 Range/Units 18:46 22:31 06:53 WBC 12.1 H (4.8-10.8) X10*3/uL Hgb 8.4 L D 7.8 L 7.7 L (14.0-18.0) g/dl Hct 25.1 L D 24.2 L 23.7 L (42.0-52.0) % Plt Count 295 (160-400) X10*3/uL BMP 04/22/22 06:53 Sodium 139 Potassium 3.8 D Chloride 109 H Carbon Dioxide 24 BUN 9 Creatinine 0.56 Calcium 7.9 L D Urine 04/22/22 Range/Units 00:14 Urine Color Yellow Urine Appearance Clear Urine pH 5.5 (5.0-9.0) Ur Specific [place] 1.015 (1.005-1.025) Urine Protein Trace (Neg-Trace) mg/dL Urine Glucose (UA) Negative (Negative) mg/dL Microbiology Microbiology Results: Microbiology 04/21/22 05:29 Blood - Venous Blood Culture - Preliminary Enterococcus/Streptococcus sp 04/21/22 05:29 Blood - Venous Blood Culture - Preliminary Enterococcus/Streptococcus sp Gram negative stacey Assessment and Plan (1) Sepsis: Status: Acute this is likely abdominal souce urine culture pending He may have gastric tear,abdominal abscess or urinary pathology (2) Severe anemia: Status: Acute Plan Continue Ceftriaxone and Vancomycin Await final cultures. Check abdominal and pelvic CT evaluate above. Time Spent With Patient Time: Total time managing care of this patient today ____ minutes.
--- NOTE | 2022-04-22 16:38 | HO.PM.IMPN ---
Subjective Subjective Date of Service: 04/23/22 Interval History: Events from last night reviewed patient had an episode of melanotic stools, early this morning patient developed left facial droop CT head was obtained that was negative for any bleed or acute intracranial pathology , CTA head and neck showed no acute vascular abnormality showed no flow-limiting stenosis or last vessel occlusion, case was discussed with Neurology due to high risk of bleed patient was not a candidate for tPA. History obtained via [employer] This morning patient has normal neuro exam he is awake alert answering questions appropriately no left facial droop noted no other neurological deficit speech clear face symmetrical tongue midline, no pronator drift, no recurrent rectal bleed since last episode at 18:00, patient denies nausea, no vomiting, no abdominal pain. Review of Systems General no headache no dizziness no fever chills. CVS no chest pain, no palpitation. Respiratory no cough, no sob. Gastrointestinal no nausea,no vomiting, no abdominal pain. Review of Systems: Yes all other systems are reviewed and are negative Physical Exam Vital Signs: Vital Signs: Last Vital Signs Temp 97.9 F 04/22/22 16:00 Pulse 87 04/22/22 16:00 Resp 18 04/22/22 16:00 BP 160/96 H 04/22/22 16:00 Pulse Ox 97 04/22/22 16:00 O2 Del Method 04/22/22 16:00 O2 Flow Rate 2.5 04/21/22 06:46 BMI result Body Mass Index 22.4 Const: Other: General awake alert resting comfortably in bed in no acute distress? Neck supple, no JVD CVS regular rate rhythm S1-S2 Lungs clear to auscultation bilaterally,no wheezing or crackles appreciated Abdomen soft, non tender, no guarding, no rigidity, G-tube site with no redness or drainage Neuro awake alert following commands, speech clear no pronator drift symmetrical face tongue midline no facial droop Extremity: left AKA skin no rash Objective Data Active Medications Acetaminophen (Acetaminophen 325 Mg Tablet) 650 mg PO Q6H PRN PRN Reason: Pain, Mild (Pain Scale 1-3) Dextrose (Dextrose 50 % 25 Gm/50 Ml Syringe) 25 gm IVPUSH Q15M PRN; Protocol PRN Reason: per Hypoglycemia Standing Ord. Last Admin: 04/22/22 06:03 Dose: 25 gm Documented By: MICHELLE Glucose (Glucose Gel 15 Gm Gel..Gram.) 15 gm PO Q15M PRN; Protocol PRN Reason: per Hypoglycemia Standing Ord. Pantoprazole Sodium 80 mg/ (Sodium Chloride) 100 mls @ 10 mls/hr IV .Q10H [facility] Last Infusion: 04/22/22 11:23 Dose: 8 mg/hr, 10 mls/hr Documented By: JUANY Ceftriaxone Sodium 1 gm/ (Sodium Chloride) 50 mls @ 100 mls/hr IV Q24H [facility] Last Infusion: 04/22/22 00:18 Dose: 0 mls/hr Documented By: MICHELLE Vancomycin HCl 750 mg/ Sodium (Chloride) 265 mls @ 265 mls/hr IV Q12H [facility] Last Infusion: 04/22/22 13:40 Dose: 0 mls/hr Documented By: JUANY Insulin Human Lispro (Insulin Lispro 100 Unit/Ml 3 Ml Vial) 0 unit SUBCUT Q6H [facility]; Protocol Last Admin: 04/22/22 14:23 Dose: Not Given Documented By: JUANY Non-Admin Reason: NPO Levetiracetam (Levetiracetam 500 Mg/5 Ml Vial) 500 mg IV BID [facility] Last Admin: 04/22/22 12:37 Dose: 500 mg Documented By: JUANY Melatonin (Melatonin 3 Mg Tablet) 6 mg PO BEDTIME PRN PRN Reason: Insomnia Ondansetron HCl (Ondansetron Hcl 4 Mg/2 Ml Vial) 4 mg IVPUSH Q8H PRN PRN Reason: Nausea and Vomiting Pharmacy Consult (Consult Rx Perform Med Rec) 1 each MISCELLANE ONCE PRN PRN Reason: Consult order Pharmacy Consult (Consult Rx Vancomycin Dosing) 1 each MISCELLANE DAILY PRN PRN Reason: Consult order Sodium Chloride (0.9 % Sodium Chloride Flush 3 Ml Syringe) 3 ml IVFLUSH QSHIFT [facility] Last Admin: 04/22/22 16:28 Dose: Not Given Documented By: JUANY Non-Admin Reason: IV Running Labs CBC & Chem 7: 04/22/22 06:53 04/23/22 06:30 Labs: Laboratory Results - last 24 hr 04/21/22 04/21/22 04/21/22 05:22 16:43 19:36 MCV MCH MCHC RDW Plt Count MPV Immature Gran % (Auto) Neut % (Auto) Lymph % (Auto) [place] % (Auto) Eos % (Auto) Baso % (Auto) Lymph # (Auto) [place] # (Auto) Eos # (Auto) Baso # (Auto) Abs Immat Gran (auto) Absolute Neuts (auto) Absolute Nucleated RBC Nucleated RBC % (auto) PT INR Anion Gap Estim Creat Clear Calc Estimated GFR POC Glucose 93 83 Random Glucose Calcium Urine Color Urine Appearance Urine pH Ur Specific [place] Urine Protein Urine Glucose (UA) Urine Ketones Urine Blood Urine Nitrite Ur Leukocyte Esterase Urine RBC Urine WBC Ur Squamous Epith Cells Urine Bacteria Hyaline Casts Blood Type B Positive Antibody Screen NEGATIVE Crossmatch See Detail 04/21/22 04/22/22 04/22/22 22:31 00:14 01:47 MCV MCH MCHC RDW Plt Count MPV Immature Gran % (Auto) Neut % (Auto) Lymph % (Auto) [place] % (Auto) Eos % (Auto) Baso % (Auto) Lymph # (Auto) [place] # (Auto) Eos # (Auto) Baso # (Auto) Abs Immat Gran (auto) Absolute Neuts (auto) Absolute Nucleated RBC Nucleated RBC % (auto) PT 13.9 H INR 1.2 H Anion Gap Estim Creat Clear Calc Estimated GFR POC Glucose 90 Random Glucose Calcium Urine Color Yellow Urine Appearance Clear Urine pH 5.5 Ur Specific [place] 1.015 Urine Protein Trace Urine Glucose (UA) Negative Urine Ketones Negative Urine Blood Negative Urine Nitrite Negative Ur Leukocyte Esterase Small (1+) H Urine RBC 0-2 Urine WBC 11-20 H Ur Squamous Epith Cells 0-2 Urine Bacteria None Seen Hyaline Casts 3-5 Blood Type Antibody Screen Crossmatch 04/22/22 04/22/22 04/22/22 05:58 06:30 06:53 MCV 95.2 MCH 30.9 MCHC 32.5 RDW 15.3 Plt Count 295 MPV 8.9 L Immature Gran % (Auto) 0.7 H Neut % (Auto) 67.5 Lymph % (Auto) 19.2 L [place] % (Auto) 8.6 Eos % (Auto) 3.7 Baso % (Auto) 0.3 Lymph # (Auto) 2.3 [place] # (Auto) 1.0 Eos # (Auto) 0.5 H Baso # (Auto) 0.0 Abs Immat Gran (auto) 0.08 H Absolute Neuts (auto) 8.1 Absolute Nucleated RBC 0.000 Nucleated RBC % (auto) 0.0 PT INR Anion Gap Estim Creat Clear Calc Estimated GFR POC Glucose 88 186 H Random Glucose Calcium Urine Color Urine Appearance Urine pH Ur Specific [place] Urine Protein Urine Glucose (UA) Urine Ketones Urine Blood Urine Nitrite Ur Leukocyte Esterase Urine RBC Urine WBC Ur Squamous Epith Cells Urine Bacteria Hyaline Casts Blood Type Antibody Screen Crossmatch 04/22/22 04/22/22 04/22/22 06:53 07:09 14:23 MCV MCH MCHC RDW Plt Count MPV Immature Gran % (Auto) Neut % (Auto) Lymph % (Auto) [place] % (Auto) Eos % (Auto) Baso % (Auto) Lymph # (Auto) [place] # (Auto) Eos # (Auto) Baso # (Auto) Abs Immat Gran (auto) Absolute Neuts (auto) Absolute Nucleated RBC Nucleated RBC % (auto) PT INR Anion Gap 10 L Estim Creat Clear Calc 128.5 Estimated GFR > 60 POC Glucose 152 H 73 Random Glucose 171 H Calcium 7.9 L D Urine Color Urine Appearance Urine pH Ur Specific [place] Urine Protein Urine Glucose (UA) Urine Ketones Urine Blood Urine Nitrite Ur Leukocyte Esterase Urine RBC Urine WBC Ur Squamous Epith Cells Urine Bacteria Hyaline Casts Blood Type Antibody Screen Crossmatch 04/22/22 14:34 MCV MCH MCHC RDW Plt Count MPV Immature Gran % (Auto) Neut % (Auto) Lymph % (Auto) [place] % (Auto) Eos % (Auto) Baso % (Auto) Lymph # (Auto) [place] # (Auto) Eos # (Auto) Baso # (Auto) Abs Immat Gran (auto) Absolute Neuts (auto) Absolute Nucleated RBC Nucleated RBC % (auto) PT INR Anion Gap Estim Creat Clear Calc Estimated GFR POC Glucose Random Glucose Calcium Urine Color Urine Appearance Urine pH Ur Specific [place] Urine Protein Urine Glucose (UA) Urine Ketones Urine Blood Urine Nitrite Ur Leukocyte Esterase Urine RBC Urine WBC Ur Squamous Epith Cells Urine Bacteria Hyaline Casts Blood Type B Positive Antibody Screen NEGATIVE Crossmatch Microbiology Microbiology Results: Microbiology 04/21/22 05:29 Blood Culture - Preliminary Blood - Venous Enterococcus/Streptococcus sp 04/21/22 05:29 Blood Culture - Preliminary Blood - Venous Enterococcus/Streptococcus sp Gram negative stacey Assessment and Plan (1) Severe anemia: Status: Acute (2) Acute blood loss anemia: Status: Acute Plan 66-year-old male with 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 #. Acute upper GI bleed with acute blood loss anemia: underwent upper endoscopy this morning and diagnosed to have gastritis, esophagitis and duodenal ulcer with visible vessel, GI recommend to use G-tube tonight, to resume Eliquis 24 to 48 h and to continue Carafate and Prilosec indefinitely, follow H pylori s/p 2 unit FFP and 2 units PRBC.? cont Protonix 40 mg b.i.d Will transfuse 1 unit since hematocrit dropped to 23.7 # left facial droop, patient noted to have symmetrical face, normal neuro examination chronically on Eliquis no evidence of acute stroke, CT head and CTA head and neck unremarkable await neuro input #.? Acute lactic acidosis: Resolved with IV hydration #.? Acute metabolic encephalopathy: Resolved #.? HTN: po antihypertensives on hold, will resume G-tube feedings and po meds #.? Seizure disorder: Continue IV keppra transitioned to by mouth Keppra via G-tube from a.m. #.? PAD:? On statin #.? Alcohol use disorder: on thiamine and folic acid, stable LFTs. #.? Hyperglycemia: No h/o DM,?hemoglobin A1c 4.8, DC Accu-Cheks and sliding scale insulin.? DVT Prohpylaxis: Defer lovenox in setting of GI bleed. DNR/DNI Patient need continued inpatient stay for acute blood loss anemia requiring blood transfusion Time Spent With Patient Time: Total time managing care of this patient today ____ minutes. Quality Stroke Does the patient have a stroke diagnosis?: No VTE Prior VTE?: No VTE Risk Level:: Medical - moderate - high VTE Device Contraindication: Treatment Not Indicated VTE Drug Contraindication: Treatment Not Indicated
[2022-04-22 19:38] LABS: Glucose, Whole Blood 80 mg/dL (60-115)
[2022-04-22 19:40] LABS: Glucose, Whole Blood 84 mg/dL (60-115)
[2022-04-22] MEDS: levETIRAcetam in NaCl (iso-os) 500 MG/100 ML PIGGYBACK 400 MG IV (20:25)
[2022-04-22] MEDS: cefTRIAXone sodium 1 GM in 0.9 % Sodium Chloride 50 ML IV (22:38)
[2022-04-23 00:31] LABS: Anion Gap 11 (12-20); Blood Urea Nitrogen 7 mg/dL (9-16); Calcium 8.2 mg/dL (8.4-10.2); Carbon Dioxide 25 mmol/L (22-29); Chloride 107 mmol/L (96-108); Creatinine Clr Calc Pharmacy 135.8; Estimated Glomerular Filt Rate > 60; Glucose Random 82 mg/dL (60-115); Magnesium 1.4 mg/dL (1.6-2.6); Potassium 3.8 mmol/L (3.3-5.1); Sodium 139 mmol/L (135-145)
[2022-04-23 00:40] VITALS: BP 155/67; PULSE 80; RESP 18; TEMP 36.4; O2SAT 97
[2022-04-23] MEDS: vancomycin HCL 750 MG in 0.9 % Sodium Chloride 250 ML 265 MG IV (00:42)
[2022-04-23] MEDS: Magnesium Sulfate/H2O 2 GM/50 ML PIGGYBACK IV (01:16)
[2022-04-23 02:01] LABS: Glucose, Whole Blood 84 mg/dL (60-115)
[2022-04-23] MEDS: Pantoprazole Sodium 80 MG in 0.9 % Sodium Chloride 80 ML 10 MG IV ×2 (03:52→09:08)
[2022-04-23 04:00] VITALS: BP 143/74; PULSE 86; RESP 18; TEMP 36.1; O2SAT 98
[2022-04-23 07:18] LABS: Creatinine Clr Calc Pharmacy 135.8; Estimated Glomerular Filt Rate > 60; Magnesium 1.7 mg/dL (1.6-2.6)
[2022-04-23 07:32] VITALS: BP 188/82; PULSE 81; RESP 18; TEMP 36.4; O2SAT 96
[2022-04-23] MEDS: levETIRAcetam in NaCl (iso-os) 500 MG/100 ML PIGGYBACK 400 MG IV (09:07)
[2022-04-23] MEDS: 0.9 % Sodium Chloride Flush 3 ML SYRINGE IVFLUSH ×3 (09:07→20:23)
--- NOTE | 2022-04-23 09:37 | HO.POSTANES ---
Post Anesthesia Evaluation Post Anesthesia Evaluation Vital Signs: Vital Signs Temp Pulse Resp BP Pulse Ox O2 Del Method 04/23/22 07:32 97.6 F 81 18 188/82 H 96 Room Air 04/23/22 04:00 96.9 F 86 18 143/74 H 98 Room Air 04/23/22 00:40 97.6 F 80 18 155/67 H 97 Room Air Anesthesia: Monitored Mental Status: Awake Pain Control: Satisfactory Nausea/Vomiting: None Hydration: Adequate Anesthesia-Related Issues: No Anes. Related Issues
--- NOTE | 2022-04-23 10:25 | MHC.CLN ---
Addendum entered by Salima Randhawa, MAYCO 04/23/22 11:37: NUTRITION CONSULT FOR SKIN INTEGRITY. PATIENT WITH NON HEALING LEFT AKA, SKIN TEARS AND REDNESS TO BUTTOCKS, LEFT EAR STAGE II. TUBE FEEDING INCLUDES PROSOURCE PROTEIN SUPPLEMENT TO PROMOTE WOUND HEALING. Original Note: F/U PT WITH GI BLEED. OKAY TO RESUME TUBE FEEDINGS PER MD. PEG TUBE PLACED 04/15 DURING PRIOR ADMISSION. RECOMMEND JEVITY 1.0 AT MAX GOAL RATE 75ML/HR WITH 30ML PROSOURCE Q DAY AND 120ML FREE WATER FLUSHES Q 6 HRS TO PROVIDE 1968TOTAL KCALS (27KCLAS/KG), 95G PROTEIN (1.3G/KG), 2073ML TOTAL WATER FROM FORMULA AND FLUSHES (28ML/KG) START AT 20 ML PER HOUR, INCREASE BY 10 ML EVERY 4 HOURS TO MAX RATE OF 75 ML PER HOUR. CHECK RESIDUALS EVERY 4 HOURS, HOLD FOR 2 HOURS IF GREATER THAN 25O ML. MONITOR TOLERANCE, RESIDUALS, AND LYTES.
[2022-04-23 10:44] VITALS: BMI 22.4
[2022-04-23 11:22] LABS: Vancomycin Trough 7.9 mcg/mL (10.0-20.0)
--- NOTE | 2022-04-23 11:31 | HE.PHANOTE ---
RE VANCO TROUGH WAS 7.9. CHANGING DOSE TO 1GRAM Q12, NEXT LEVEL DUE 04/24 @1000, AFTER TWO DOSES FOR SAFETY. Suspected AUC 516, trough 15.8 Sean
[2022-04-23 11:36] LABS: Glucose, Whole Blood 67 mg/dL (60-115)
[2022-04-23 11:42] VITALS: BP 193/88; PULSE 90; RESP 16; TEMP 36.3; O2SAT 98
[2022-04-23] MEDS: vancomycin HCL 1,000 MG in 0.9 % Sodium Chloride 250 ML 270 MG IV ×2 (12:10→23:01)
[2022-04-23] MEDS: amLODIPine Besylate 10 MG TABLET G-TUBE (12:15)
[2022-04-23] MEDS: Cyanocobalamin (Vitamin B-12) 1,000 MCG TABLET 1000 MCG G-TUBE (12:16)
[2022-04-23] MEDS: Metoprolol Tartrate 12.5 MG HALFTAB G-TUBE ×2 (12:23→20:23)
--- NOTE | 2022-04-23 14:01 | PC.NURSE ---
Attempted to contact HCP Ashwin in patient's chart to obtain consent for abdominal CT with contrast, unable to get in contact x2.
--- NOTE | 2022-04-23 15:45 | PC.NURSE ---
Patient left floor at this time to CT via bed with transport aid.
--- NOTE | 2022-04-23 16:56 | PM.CNGS ---
History of Present Illness Consult details Consult date: 04/23/22 Reason for consult: wound care Narrative: Very complex and sick 66-year-old gentleman presents for follow-up status post AKA. His last visit he had a significant episode of infection from that foot. Decision was made to have perform an AKA. He appears to be doing somewhat better. He does have known hypoalbuminemia due to protein calorie malnutrition. He now presents for follow-up for nonhealing stump. Review of Systems Review of Systems: Yes all other systems are reviewed and are negative Constitutional: Constitutional: Reports no additional constitutional complaints ENT: Reports Normal hearing present Cardiovascular: Cardiovascular: Denies chest pain, Denies chest pain at rest, Denies chest pain with activity and Denies pedal edema Respiratory: Respiratory: Denies cough Gastrointestinal: Gastrointestinal: Denies abdominal pain Musculoskeletal: Musculoskeletal: Denies abnormal gait, Denies muscle cramps and Denies radiating pain into limb Integumentary/Breasts: Skin/Breast: Denies skin ulcer and Denies wounds Neurologic: Reports Normal hearing present and Denies abnormal gait Psychiatric: Psychiatric: Reports no additional psychiatric complaints PMFSH Past Medical History Medical History Alcohol abuse Blood per rectum Cardiomyopathy Cellulitis Dementia DVT (deep venous thrombosis) DVT of deep femoral vein GERD (gastroesophageal reflux disease) Hepatitis C antibody positive in blood Hypertension Seizure Family History Family History Father No problems noted. Mother No problems noted. Brother Cancer Sister No problems noted. Family history: reviewed and not pertinent Surgical History Surgical History No pertinent past surgical history Social History Social History Household Members: Unknown / Unable to assess Housing: Unknown / Unable to assess Unable to assess alcohol history related to: Unable to respond Alcohol intake: current Alcohol intake frequency: other Alcohol type: beer Patient Tobacco Use Status: Former Tobacco user Cigarettes Per Day: 7 Substance Use Type: Unknown Advance Directives Date on File: 10/11/20 service: No Current occupational status: unemployed and disabled Meds Allergies Allergy/AdvReac Type Severity Reaction Status Date / Time No Known Allergies Allergy Verified 04/07/22 13:53 [No Known Allergies*] Active Medications: Current Medications Acetaminophen (Acetaminophen 325 Mg Tablet) 650 mg PO Q6H PRN PRN Reason: Pain, Mild (Pain Scale 1-3) Amlodipine Besylate (Amlodipine Besylate 10 Mg Tablet) 10 mg G-TUBE DAILY [facility]; Protocol Last Admin: 04/23/22 12:15 Dose: 10 mg Atorvastatin Calcium (Atorvastatin Calcium 40 Mg Tablet) 40 mg G-TUBE BEDTIME [facility] Cyanocobalamin (Cyanocobalamin (Vitamin B-12) 1,000 Mcg Tablet) 1,000 mcg G-TUBE DAILY [facility] Last Admin: 04/23/22 12:16 Dose: 1,000 mcg Dextrose (Dextrose 50 % 25 Gm/50 Ml Syringe) 25 gm IVPUSH Q15M PRN; Protocol PRN Reason: per Hypoglycemia Standing Ord. Last Admin: 04/22/22 06:03 Dose: 25 gm Folic Acid (Folic Acid 1 Mg Tablet) 1 mg G-TUBE DAILY [facility] Glucose (Glucose Gel 15 Gm Gel..Gram.) 15 gm PO Q15M PRN; Protocol PRN Reason: per Hypoglycemia Standing Ord. Ceftriaxone Sodium 1 gm/ (Sodium Chloride) 50 mls @ 100 mls/hr IV Q24H [facility] Last Infusion: 04/23/22 00:16 Dose: Infused Vancomycin HCl 1,000 mg/ (Sodium Chloride) 270 mls @ 270 mls/hr IV Q12H [facility] Last Infusion: 04/23/22 14:03 Dose: Infused Insulin Human Lispro (Insulin Lispro 100 Unit/Ml 3 Ml Vial) 0 unit SUBCUT Q6H [facility]; Protocol Last Admin: 04/23/22 12:25 Dose: Not Given Levetiracetam (Levetiracetam 500 Mg Tablet) 500 mg G-TUBE BID [facility] Lisinopril (Lisinopril 5 Mg Tablet) 5 mg G-TUBE DAILY [facility]; Protocol Melatonin (Melatonin 3 Mg Tablet) 6 mg PO BEDTIME PRN PRN Reason: Insomnia Metoprolol Tartrate (Metoprolol Tartrate 12.5 Mg Halftab) 12.5 mg G-TUBE BID [facility]; Protocol Last Admin: 04/23/22 12:23 Dose: 12.5 mg Omeprazole (Omeprazole 20 Mg/10 Ml Susp.Recon) 20 mg G-TUBE DAILY@0630 [facility] Last Admin: 04/23/22 12:15 Dose: 20 mg Ondansetron HCl (Ondansetron Hcl 4 Mg/2 Ml Vial) 4 mg IVPUSH Q8H PRN PRN Reason: Nausea and Vomiting Pharmacy Consult (Consult Rx Perform Med Rec) 1 each MISCELLANE ONCE PRN PRN Reason: Consult order Pharmacy Consult (Consult Rx Vancomycin Dosing) 1 each MISCELLANE DAILY PRN PRN Reason: Consult order Sodium Chloride (0.9 % Sodium Chloride Flush 3 Ml Syringe) 3 ml IVFLUSH QSHIFT [facility] Last Admin: 04/23/22 16:11 Dose: 3 ml Tamsulosin HCl (Tamsulosin Hcl 0.4 Mg Capsule) 0.4 mg PO DAILY [facility] Thiamine HCl (Thiamine Hcl 100 Mg Tablet) 100 mg G-TUBE DAILY [facility] Vitamin D (Cholecalciferol (Vitamin D3) 25 Mcg Tablet) 50 mcg G-TUBE DAILY [facility] Home Medications Medication Instructions Recorded Confirmed Last Taken Type tamsulosin 0.4 mg capsule 0.4 mg PO DAILY 04/01/20 04/21/22 Unknown History apixaban 5 mg tablet (Eliquis) 5 mg PO BID 04/21/22 04/21/22 Unknown History gabapentin 600 mg tablet 600 mg feeding tube BID 04/21/22 04/21/22 Unknown History levetiracetam 500 mg tablet 500 mg PO BID 04/21/22 04/21/22 Unknown History olanzapine 20 mg tablet 20 mg PO BEDTIME 04/21/22 04/21/22 Unknown History oxycodone 5 mg tablet 5 mg feeding tube Q6H PRN Pain 04/21/22 04/21/22 Unknown History phenytoin 50 mg chewable tablet 50 mg G-tube BID 04/21/22 04/21/22 Unknown History (Dilantin Infatabs) sertraline 25 mg tablet 25 mg PO DAILY 04/21/22 04/21/22 Unknown History umeclidinium 62.5 mcg/actuation 1 inh inhalation DAILY 04/21/22 04/21/22 Unknown History blister powder for inhalation (Incruse Ellipta) Physical Exam Vital Signs: Vital Signs: Last Vital Signs Temp 97.3 F 04/23/22 11:42 Pulse 90 04/23/22 11:42 Resp 16 04/23/22 11:42 BP 193/88 H 04/23/22 11:42 Pulse Ox 98 04/23/22 11:42 O2 Del Method 04/23/22 11:42 O2 Flow Rate 2.5 04/21/22 06:46 BMI result Body Mass Index 22.4 Const: General: cooperative, healthy appearing and comfortable Orientation/consciousness: oriented to person, oriented to place and oriented to time HEENT: Head: Yes normal to inspection Neck: Neck: Yes normal visual inspection Carotids: no bruits Chest: Chest palpation & inspection: normal inspection of the chest Resp: Effort & Inspection: normal respiratory effort and able to speak in complete sentences Auscultation: clear to auscultation bilaterally, no crackles, no rales, no rhonchi and no wheezes Cardio: Rate: regular rate Rhythm: regular rhythm Heart sounds: S1 normal heart sound present and S2 normal heart sound present Bruits: no carotid bruits Peripheral pulses: Peripheral pulses 2+ throughout GI: Inspection: Yes normal to inspection Skin: Other: Amputation site bilateral lateral sides are poorly healing and incision line has opened up. There is serous drainage. No evidence of infection or purulent material. Middle 3rd is completely closed over an bone appears to be covered. Wounds: wounds noted Hair: normal Neuro: General: oriented to person, oriented to place and oriented to time Cranial nerves: Yes CN's II-XII intact bilaterally and Yes Normal hearing present Cognition (Neuro): normal cognition Motor exam (neuro): 5/5 motor strength present throughout Extrem: Other: venous exam: No significant superficial varicosities or spider telangiectasias, minimal edema General: No clubbing, No cyanosis and No edema Psych: Appearance: grossly normal Mental Status: mental status grossly normal Speech and movement: Normal speech and movement present Results Labs Result diagrams: 04/22/22 06:53 04/23/22 06:30 Labs: Abnormal lab results 04/22/22 04/23/22 Range/Units 23:54 09:57 Anion Gap 11 L (12-20) BUN 7 L (9-16) mg/dL Calcium 8.2 L (8.4-10.2) mg/dL Magnesium 1.4 L* (1.6-2.6) mg/dL Vancomycin Trough 7.9 L (10.0-20.0) mcg/mL BMP 04/22/22 04/23/22 23:54 06:30 Sodium 139 Potassium 3.8 Chloride 107 Carbon Dioxide 25 BUN 7 L Creatinine 0.53 0.53 Calcium 8.2 L Urine 04/22/22 Range/Units 00:14 Urine Color Yellow Urine Appearance Clear Urine pH 5.5 (5.0-9.0) Ur Specific [place] 1.015 (1.005-1.025) Urine Protein Trace (Neg-Trace) mg/dL Urine Glucose (UA) Negative (Negative) mg/dL All other labs normal. Assessment and Plan (1) Above knee amputation of left lower extremity: Status: Acute Plan In short patient has a nonhealing stump. At the current time would continue with local wound care. He will be slow to heal due to his overall status. Do not feel that any intervention is required at the current time. We will keep sutures and smita intact. Will write for dressing care. Thank you for allowing us to participate in his care. Time Spent With Patient Time: Total time managing care of this patient today ____ minutes. Procedures Date of Service Date of Service: 04/23/22
--- NOTE | 2022-04-23 16:58 | P.PNIM_ITS ---
Subjective Subjective Date of Service: 04/23/22 Interval History: History obtained via historical interpreter, patient awake alert offers no acute complaints feels a little hungry denies nausea vomiting, no abdominal pain noted to have black liquidy stool x1 today, no events overnight, no fevers no chills. Review of Systems Review of Systems: Yes all other systems are reviewed and are negative Physical Exam Vital Signs: Vital Signs: Last Vital Signs Temp 97.3 F 04/23/22 11:42 Pulse 90 04/23/22 11:42 Resp 16 04/23/22 11:42 BP 193/88 H 04/23/22 11:42 Pulse Ox 98 04/23/22 11:42 O2 Del Method 04/23/22 11:42 O2 Flow Rate 2.5 04/21/22 06:46 BMI result Body Mass Index 22.4 Const: Other: General awake alert resting comfortably in bed in no acute distress? Neck supple, no JVD CVS regular rate rhythm S1-S2 Lungs clear to auscultation bilaterally,no wheezing or crackles appreciated Abdomen soft, non tender, no guarding, no rigidity, G-tube site with no redness or drainage Neuro awake alert following commands, speech clear no pronator drift symmetrical face tongue midline no facial droop Extremity: left AKA, smita in place, mild CVS drainage, poor healing with incision line opened up laterally skin no rash Objective Data Active Medications Acetaminophen (Acetaminophen 325 Mg Tablet) 650 mg PO Q6H PRN PRN Reason: Pain, Mild (Pain Scale 1-3) Amlodipine Besylate (Amlodipine Besylate 10 Mg Tablet) 10 mg G-TUBE DAILY [facility]; Protocol Last Admin: 04/23/22 12:15 Dose: 10 mg Documented By: LEANNA Atorvastatin Calcium (Atorvastatin Calcium 40 Mg Tablet) 40 mg G-TUBE BEDTIME [facility] Cyanocobalamin (Cyanocobalamin (Vitamin B-12) 1,000 Mcg Tablet) 1,000 mcg G- TUBE DAILY [facility] Last Admin: 04/23/22 12:16 Dose: 1,000 mcg Documented By: LEANNA Dextrose (Dextrose 50 % 25 Gm/50 Ml Syringe) 25 gm IVPUSH Q15M PRN; Protocol PRN Reason: per Hypoglycemia Standing Ord. Last Admin: 04/22/22 06:03 Dose: 25 gm Documented By: MICHELLE Folic Acid (Folic Acid 1 Mg Tablet) 1 mg G-TUBE DAILY [facility] Glucose (Glucose Gel 15 Gm Gel..Gram.) 15 gm PO Q15M PRN; Protocol PRN Reason: per Hypoglycemia Standing Ord. Ceftriaxone Sodium 1 gm/ (Sodium Chloride) 50 mls @ 100 mls/hr IV Q24H [facility] Last Infusion: 04/23/22 00:16 Dose: 0 mls/hr Documented By: ROSLYN Vancomycin HCl 1,000 mg/ (Sodium Chloride) 270 mls @ 270 mls/hr IV Q12H [facility] Last Infusion: 04/23/22 14:03 Dose: 0 mls/hr Documented By: LEANNA Insulin Human Lispro (Insulin Lispro 100 Unit/Ml 3 Ml Vial) 0 unit SUBCUT Q6H [facility]; Protocol Last Admin: 04/23/22 12:25 Dose: Not Given Documented By: LEANNA Non-Admin Reason: No Insulin Coverage Levetiracetam (Levetiracetam 500 Mg Tablet) 500 mg G-TUBE BID [facility] Lisinopril (Lisinopril 5 Mg Tablet) 5 mg G-TUBE DAILY [facility]; Protocol Melatonin (Melatonin 3 Mg Tablet) 6 mg PO BEDTIME PRN PRN Reason: Insomnia Metoprolol Tartrate (Metoprolol Tartrate 12.5 Mg Halftab) 12.5 mg G-TUBE BID [facility]; Protocol Last Admin: 04/23/22 12:23 Dose: 12.5 mg Documented By: LEANNA Omeprazole (Omeprazole 20 Mg/10 Ml Susp.Recon) 20 mg G-TUBE DAILY@0630 [facility] Last Admin: 04/23/22 12:15 Dose: 20 mg Documented By: LEANNA Ondansetron HCl (Ondansetron Hcl 4 Mg/2 Ml Vial) 4 mg IVPUSH Q8H PRN PRN Reason: Nausea and Vomiting Pharmacy Consult (Consult Rx Perform Med Rec) 1 each MISCELLANE ONCE PRN PRN Reason: Consult order Pharmacy Consult (Consult Rx Vancomycin Dosing) 1 each MISCELLANE DAILY PRN PRN Reason: Consult order Sodium Chloride (0.9 % Sodium Chloride Flush 3 Ml Syringe) 3 ml IVFLUSH QSHIFT [facility] Last Admin: 04/23/22 16:11 Dose: 3 ml Documented By: LEANNA Tamsulosin HCl (Tamsulosin Hcl 0.4 Mg Capsule) 0.4 mg PO DAILY [facility] Thiamine HCl (Thiamine Hcl 100 Mg Tablet) 100 mg G-TUBE DAILY [facility] Vitamin D (Cholecalciferol (Vitamin D3) 25 Mcg Tablet) 50 mcg G-TUBE DAILY [facility] Labs CBC & Chem 7: 04/22/22 06:53 04/23/22 06:30 Labs: Laboratory Results - last 24 hr 04/22/22 04/22/22 04/22/22 19:10 19:34 23:54 Anion Gap 11 L Estim Creat Clear Calc 135.8 Estimated GFR > 60 POC Glucose 84 80 Random Glucose 82 D Calcium 8.2 L Magnesium 1.4 L* Vancomycin Trough 04/23/22 04/23/22 04/23/22 01:57 06:30 09:57 Anion Gap Estim Creat Clear Calc 135.8 Estimated GFR > 60 POC Glucose 84 Random Glucose Calcium Magnesium 1.7 Vancomycin Trough 7.9 L 04/23/22 11:19 Anion Gap Estim Creat Clear Calc Estimated GFR POC Glucose 67 Random Glucose Calcium Magnesium Vancomycin Trough Microbiology Microbiology Results: Microbiology 04/21/22 05:29 Blood Culture - Preliminary Blood - Venous Enterococcus/Streptococcus sp Gram negative stacey Staphylococcus species 04/21/22 05:29 Blood Culture - Preliminary Blood - Venous Enterococcus/Streptococcus sp 04/21/22 23:04 Blood Culture - Preliminary Blood - Venous No growth after 24 hours. 04/21/22 23:04 Blood Culture - Preliminary Blood - Venous No growth after 24 hours. 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 #. Acute upper GI bleed with acute blood loss anemia: underwent upper endoscopy 04/22 and diagnosed to have gastritis, esophagitis and duodenal ulcer with visible vessel Will resume G-tube feedings, continue to hold Eliquis 24 to 48 h Continue Prilosec indefinitely, follow H pylori s/p 2 unit FFP and 3 units PRBC, hematocrit 23.7 will follow CBC.? # Enterococcus/Streptococcus/Gram-negative stacey bacteremia UA unremarkable , CT abdomen and pelvis obtained questions is skin infection with nonhealing stump, continue continue vancomycin and IV ceftriaxone day 2 Seen by id recommend to continue current antibiotics follow final cultures # left facial droop, no acute CVA, symmetrical face, normal neuro examination chronically on Eliquis no evidence of acute stroke, CT head and CTA head and neck unremarkable , DC and Neuro consult #.? Acute lactic acidosis: Resolved with IV hydration #.? Acute metabolic encephalopathy: Resolved # left above knee amputation, nonhealing stump seen by Dr. Valdovinos he recommend no acute intervention at this time he recommend to keep sutures and smita continue dressing and local wound care as per vascular surgery #.? HTN: po antihypertensives on hold, will resume G-tube feedings and po meds #.? Seizure disorder: Continue IV keppra transitioned to by mouth Keppra via G- tube from a.m. #.? PAD:? On statin #.? Alcohol use disorder: on thiamine and folic acid, stable LFTs. #.? Hyperglycemia: No h/o DM,?hemoglobin A1c 4.8, DC Accu-Cheks and sliding scale insulin.? DVT Prohpylaxis: Defer lovenox in setting of GI bleed. DNR/DNI Patient need continued inpatient stay for acute blood loss anemia requiring blood transfusion and on iv abx for bacteremia Time Spent With Patient Time: Total time managing care of this patient today ____ minutes. Quality Stroke Does the patient have a stroke diagnosis?: No VTE Prior VTE?: No VTE Risk Level:: Medical - moderate - high VTE Device Contraindication: Treatment Not Indicated VTE Drug Contraindication: Treatment Not Indicated
[2022-04-23 19:40] VITALS: BP 166/78; PULSE 90; RESP 18; TEMP 37.3; O2SAT 98
[2022-04-23 20:01] LABS: Glucose, Whole Blood 80 mg/dL (60-115)
[2022-04-23] MEDS: levETIRAcetam 500 MG TABLET G-TUBE (20:23)
[2022-04-23] MEDS: Atorvastatin Calcium 40 MG TABLET G-TUBE (20:23)
[2022-04-23] MEDS: cefTRIAXone sodium 1 GM in 0.9 % Sodium Chloride 50 ML IV (23:00)
[2022-04-23 23:25] VITALS: BP 142/68; PULSE 84; RESP 17; TEMP 36.6; O2SAT 97
[2022-04-24 01:56] LABS: Glucose, Whole Blood 133 mg/dL (60-115)
[2022-04-24 03:29] VITALS: BP 134/57; PULSE 85; RESP 17; TEMP 37.1; O2SAT 98
[2022-04-24 07:04] LABS: Hemoglobin 8.7 g/dl (14.0-18.0); Mean Corpuscular HGB Conc 32.2 g/dl (31.0-36.0); Mean Corpuscular Hemoglobin 30.4 pg (27.0-33.0); Mean Corpuscular Volume 94.4 fL (80.0-98.0); Platelet Count 384 X10*3/uL (160-400); Red Blood Count 2.86 X10*6/uL (4.60-5.80); Red Cell Distribution Width 15.1 % (11.0-16.0); White Blood Count 14.2 X10*3/uL (4.8-10.8)
[2022-04-24 07:28] LABS: Creatinine Clr Calc Pharmacy 138.4; Estimated Glomerular Filt Rate > 60
[2022-04-24 08:00] VITALS: BP 167/79; PULSE 86; RESP 18; TEMP 36.1; O2SAT 98
[2022-04-24 08:29] LABS: Glucose, Whole Blood 137 mg/dL (60-115)
[2022-04-24 08:48] LABS: Glucose, Whole Blood 133 mg/dL (60-115)
--- NOTE | 2022-04-24 09:48 | MHC.CLN ---
CONSULT FOR SKIN INTEGRITY AND F/U FOR TF PATIENT WITH NON HEALING LEFT AKA, SKIN TEARS AND REDNESS TO BUTTOCKS, LEFT EAR STAGE II TUBE FEEDING INCLUDES PROSOURCE PROTEIN SUPPLEMENT TO PROMOTE WOUND HEALING PEG TUBE PLACED 04/15 DURING PRIOR ADMISSION PT RECEIVING JEVITY 1.0 AT MAX GOAL RATE 75ML/HR WITH 30ML PROSOURCE Q DAY AND 120ML FREE WATER FLUSHES Q 6 HRS PROVIDES 1968TOTAL KCALS (27KCLAS/KG), 95G PROTEIN (1.3G/KG), 2073ML TOTAL WATER FROM FORMULA AND FLUSHES (28ML/KG) RECOMMEND ADDING AN ADDIITONAL 30ML PROSOURCE TO INCREASE PO PROTEIN AND PROMOTE WOUND HEALING. PT CURRENTLY RECEIVING PROSOURCE X1 PER DAY AND WILL INCREASE TO BID. SUPPLEMENT WILL PROVIDE AN ADDITIONAL 60KCALS, 15G PROTEIN WILL PROVIDE 2028TOTAL KCALS (28KCALS/KG), 110G TOTAL PROTEIN (1.5G/KG) MONITOR TOLERANCE, RESIDUALS, AND LYTES.
[2022-04-24] MEDS: amLODIPine Besylate 10 MG TABLET G-TUBE (10:36)
[2022-04-24] MEDS: Folic Acid 1 MG TABLET G-TUBE (10:37)
[2022-04-24] MEDS: Cholecalciferol (Vitamin D3) 25 MCG TABLET 50 MCG G-TUBE (10:37)
[2022-04-24] MEDS: Thiamine HCL 100 MG TABLET G-TUBE (10:37)
[2022-04-24] MEDS: Cyanocobalamin (Vitamin B-12) 1,000 MCG TABLET 1000 MCG G-TUBE (10:37)
[2022-04-24] MEDS: lisinopriL 5 MG TABLET G-TUBE (10:37)
[2022-04-24] MEDS: 0.9 % Sodium Chloride Flush 3 ML SYRINGE IVFLUSH ×3 (10:38→19:45)
[2022-04-24] MEDS: Metoprolol Tartrate 12.5 MG HALFTAB G-TUBE ×2 (10:48→19:46)
[2022-04-24 11:49] LABS: Glucose, Whole Blood 142 mg/dL (60-115)
[2022-04-24 11:52] VITALS: BP 157/72; PULSE 77; RESP 18; TEMP 36.3; O2SAT 97
[2022-04-24 12:00] LABS: Vancomycin Random 8.7 mcg/mL (15-20)
--- NOTE | 2022-04-24 12:10 | HE.PHANOTE ---
RE AUDREY INCREASING DOSE TO 1250MG Q12, TROUGH AFTER 2 DOSES SINCE IF WE DID AFTER THREE, PHARMACY WOULD NOT BE HERE JACOBO
[2022-04-24] MEDS: vancomycin HCL 1,250 MG in 0.9 % Sodium Chloride 250 ML 166.67 MG IV (12:39)
--- NOTE | 2022-04-24 12:58 | PC.NURSE ---
New bottle of Jevity started at 12:30 - rate 70ml/hr - 0 residual
--- NOTE | 2022-04-24 13:04 | HO.PM.IMPN ---
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 Review of Systems General no headache, no dizziness, no fever chills. CVS no chest pain, no palpitation. Respiratory no cough, no sob Gastrointestinal no nausea, no vomiting, no abdominal pain Review of Systems: Yes all other systems are reviewed and are negative Physical Exam Vital Signs: Vital Signs: Last Vital Signs Temp 97.4 F 04/24/22 11:52 Pulse 77 04/24/22 11:52 Resp 18 04/24/22 11:52 BP 157/72 H 04/24/22 11:52 Pulse Ox 97 04/24/22 11:52 O2 Del Method 04/24/22 11:52 O2 Flow Rate 2.5 04/21/22 06:46 BMI result Body Mass Index 22.4 Const: Other: General awake alert resting comfortably in bed in no acute distress? Neck supple, no JVD CVS regular rate rhythm S1-S2 Lungs clear to auscultation bilaterally,no wheezing or crackles appreciated Abdomen soft, non tender, no guarding, no rigidity, G-tube site with no redness or drainage Neuro awake alert following commands, speech clear no pronator drift symmetrical face tongue midline no facial droop Extremity: left AKA, smita in place, no drainage, poor healing with incision line opened up laterally. skin no rash Objective Data Active Medications Acetaminophen (Acetaminophen 325 Mg Tablet) 650 mg PO Q6H PRN PRN Reason: Pain, Mild (Pain Scale 1-3) Amlodipine Besylate (Amlodipine Besylate 10 Mg Tablet) 10 mg G-TUBE DAILY [facility]; Protocol Last Admin: 04/24/22 10:36 Dose: 10 mg Documented By: CARA Atorvastatin Calcium (Atorvastatin Calcium 40 Mg Tablet) 40 mg G-TUBE BEDTIME [facility] Last Admin: 04/23/22 20:23 Dose: 40 mg Documented By: VENTURA Cyanocobalamin (Cyanocobalamin (Vitamin B-12) 1,000 Mcg Tablet) 1,000 mcg G-TUBE DAILY [facility] Last Admin: 04/24/22 10:37 Dose: 1,000 mcg Documented By: CARA Dextrose (Dextrose 50 % 25 Gm/50 Ml Syringe) 25 gm IVPUSH Q15M PRN; Protocol PRN Reason: per Hypoglycemia Standing Ord. Last Admin: 04/22/22 06:03 Dose: 25 gm Documented By: MICHELLE Folic Acid (Folic Acid 1 Mg Tablet) 1 mg G-TUBE DAILY [facility] Last Admin: 04/24/22 10:37 Dose: 1 mg Documented By: CARA Glucose (Glucose Gel 15 Gm Gel..Gram.) 15 gm PO Q15M PRN; Protocol PRN Reason: per Hypoglycemia Standing Ord. Ceftriaxone Sodium 1 gm/ (Sodium Chloride) 50 mls @ 100 mls/hr IV Q24H [facility] Last Infusion: 04/24/22 00:17 Dose: 0 mls/hr Documented By: VENTURA Vancomycin HCl 1,250 mg/ (Sodium Chloride) 250 mls @ 166.667 mls/hr IV Q12H [facility] Last Admin: 04/24/22 12:39 Dose: 166.67 mls/hr Documented By: CARA Insulin Human Lispro (Insulin Lispro 100 Unit/Ml 3 Ml Vial) 0 unit SUBCUT Q6H [facility]; Protocol Last Admin: 04/24/22 08:55 Dose: Not Given Documented By: CARA Non-Admin Reason: No Insulin Coverage Levetiracetam (Levetiracetam 500 Mg Tablet) 500 mg G-TUBE BID [facility] Last Admin: 04/24/22 10:39 Dose: Not Given Documented By: CARA Non-Admin Reason: unable to crush Lisinopril (Lisinopril 5 Mg Tablet) 5 mg G-TUBE DAILY [facility]; Protocol Last Admin: 04/24/22 10:37 Dose: 5 mg Documented By: CARA Melatonin (Melatonin 3 Mg Tablet) 6 mg PO BEDTIME PRN PRN Reason: Insomnia Metoprolol Tartrate (Metoprolol Tartrate 12.5 Mg Halftab) 12.5 mg G-TUBE BID [facility]; Protocol Last Admin: 04/24/22 10:48 Dose: 12.5 mg Documented By: CARA Omeprazole (Omeprazole 20 Mg/10 Ml Susp.Recon) 20 mg G-TUBE DAILY@0630 [facility] Last Admin: 04/24/22 06:19 Dose: 20 mg Documented By: VENTURA Ondansetron HCl (Ondansetron Hcl 4 Mg/2 Ml Vial) 4 mg IVPUSH Q8H PRN PRN Reason: Nausea and Vomiting Pharmacy Consult (Consult Rx Perform Med Rec) 1 each MISCELLANE ONCE PRN PRN Reason: Consult order Pharmacy Consult (Consult Rx Vancomycin Dosing) 1 each MISCELLANE DAILY PRN PRN Reason: Consult order Sodium Chloride (0.9 % Sodium Chloride Flush 3 Ml Syringe) 3 ml IVFLUSH QSHIFT [facility] Last Admin: 04/24/22 10:38 Dose: 3 ml Documented By: CARA Tamsulosin HCl (Tamsulosin Hcl 0.4 Mg Capsule) 0.4 mg PO DAILY [facility] Last Admin: 04/24/22 10:39 Dose: Not Given Documented By: CARA Non-Admin Reason: unable to crush Thiamine HCl (Thiamine Hcl 100 Mg Tablet) 100 mg G-TUBE DAILY [facility] Last Admin: 04/24/22 10:37 Dose: 100 mg Documented By: CARA Vitamin D (Cholecalciferol (Vitamin D3) 25 Mcg Tablet) 50 mcg G-TUBE DAILY [facility] Last Admin: 04/24/22 10:37 Dose: 50 mcg Documented By: CARA Labs CBC & Chem 7: 04/24/22 06:22 04/24/22 06:22 Labs: Laboratory Results - last 24 hr 04/23/22 04/24/22 04/24/22 19:55 01:52 06:22 MCV 94.4 MCH 30.4 MCHC 32.2 RDW 15.1 Plt Count 384 D MPV 9.0 L Absolute Nucleated RBC 0.000 Nucleated RBC % (auto) 0.0 Estim Creat Clear Calc Estimated GFR POC Glucose 80 133 H Random Vancomycin 04/24/22 04/24/22 04/24/22 06:22 07:56 08:45 MCV MCH MCHC RDW Plt Count MPV Absolute Nucleated RBC Nucleated RBC % (auto) Estim Creat Clear Calc 138.4 Estimated GFR > 60 POC Glucose 137 H 133 H Random Vancomycin 04/24/22 04/24/22 10:09 11:40 MCV MCH MCHC RDW Plt Count MPV Absolute Nucleated RBC Nucleated RBC % (auto) Estim Creat Clear Calc Estimated GFR POC Glucose 142 H Random Vancomycin 8.7 L Microbiology Microbiology Results: Microbiology 04/21/22 05:29 Blood Culture - Preliminary Blood - Venous Enterococcus faecalis Gram negative stacey Methicillin Res Staph Aureus 04/21/22 05:29 Blood Culture - Final Blood - Venous Enterococcus faecalis 04/21/22 23:04 Blood Culture - Preliminary Blood - Venous No growth after 48 hours. 04/21/22 23:04 Blood Culture - Preliminary Blood - Venous No growth after 48 hours. 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 #. Acute upper GI bleed with acute blood loss anemia: underwent upper endoscopy 04/22 and diagnosed to have gastritis, esophagitis and duodenal ulcer with visible vessel,Is status post 3 units of FFP and 3 units of packed RBC hematocrit improved no recurrent bleed continue G-tube feedings, Eliquis held Continue Prilosec indefinitely, negative H pylori, gastric biopsy showed mild chronic inactive gastritis, intestinal metaplasia and dysplasia # Enterococcus/Streptococcus/Gram-negative stacey bacteremia UA unremarkable , CT abdomen and pelvis showed left lower lobe pneumonia, bladder wall thickening and small amount of air in the bladder patient had Suazo catheter but he pulled likely gas related to it, questionable sludge in gallbladder nl LFts, no abd pain less likely acute cholecystitis, questions from skin infection with nonhealing stump, continue continue vancomycin and IV ceftriaxone day 3 Seen by id recommend to continue current antibiotics , Enterococcus sensitive to vancomycin and ampicillin. # left facial droop, no acute CVA, symmetrical face, normal neuro examination chronically on Eliquis no evidence of acute stroke, CT head and CTA head and neck unremarkable , DC and Neuro consult #.? Acute lactic acidosis: Resolved with IV hydration #.? Acute metabolic encephalopathy: Resolved # left above knee amputation, nonhealing stump seen by Dr. Valdovinos he recommend no acute intervention and recommend to keep sutures and smita continue dressing and local wound care #.? HTN: cont. G-tube feedings and po meds #.? Seizure disorder: Continue by mouth Keppra via G-tube from a.m. seizure precautions # history of DVT will hold eliquis , patient has history of left leg DVT diagnosed in August of 2021, repeat Doppler study in for is negative #.? PAD:? On statin #.? Alcohol use disorder: on thiamine and folic acid, stable LFTs. #.? Hyperglycemia: No h/o DM,?hemoglobin A1c 4.8, DC Accu-Cheks and sliding scale insulin.? DVT Prohpylaxis: compression boots DNR/DNI Patient need continued inpatient stay for acute blood loss anemia requiring close cbc follow up and on iv abx for bacteremia Time Spent With Patient Time: Total time managing care of this patient today ____ minutes. Quality Stroke Does the patient have a stroke diagnosis?: No VTE Prior VTE?: No VTE Risk Level:: Medical - moderate - high VTE Device Contraindication: Treatment Not Indicated VTE Drug Contraindication: Treatment Not Indicated
[2022-04-24 14:08] LABS: Glucose, Whole Blood 116 mg/dL (60-115)
[2022-04-24 15:33] VITALS: BP 144/70; PULSE 96; RESP 18; TEMP 37.1; O2SAT 94
--- NOTE | 2022-04-24 15:36 | MHC.CM.PN ---
PER MD ROUNDS, PT NOT MEDICALLY CLEARED FOR DC (ANEMIA, BACTEREMIA) [facility] AT [facility], UPDATES SENT
[2022-04-24 15:58] LABS: Glucose, Whole Blood 142 mg/dL (60-115)
[2022-04-24 17:51] VITALS: BP 135/69; PULSE 89; RESP 18; TEMP 37.1; O2SAT 96
[2022-04-24] MEDS: Atorvastatin Calcium 40 MG TABLET G-TUBE (19:45)
[2022-04-24] MEDS: levETIRAcetam 500 MG TABLET G-TUBE (19:46)
[2022-04-24 21:09] LABS: Glucose, Whole Blood 142 mg/dL (60-115)
[2022-04-25] VITALS: BP 123/72; PULSE 92; RESP 16; TEMP 36.6
[2022-04-25] MEDS: cefTRIAXone sodium 1 GM in 0.9 % Sodium Chloride 50 ML IV (01:01)
[2022-04-25] MEDS: vancomycin HCL 1,250 MG in 0.9 % Sodium Chloride 250 ML 166.67 MG IV (01:02)
[2022-04-25 02:20] LABS: Glucose, Whole Blood 132 mg/dL (60-115)
[2022-04-25 03:51] VITALS: BP 115/57; PULSE 73; RESP 18; TEMP 36.5; O2SAT 97
[2022-04-25 06:46] LABS: Creatinine Clr Calc Pharmacy 130.8; Estimated Glomerular Filt Rate > 60
[2022-04-25 08:00] VITALS: BP 162/77; PULSE 90; RESP 20; TEMP 36.1; O2SAT 98
[2022-04-25 08:18] LABS: Glucose, Whole Blood 136 mg/dL (60-115)
[2022-04-25] MEDS: Metoprolol Tartrate 12.5 MG HALFTAB G-TUBE ×2 (09:33→19:48)
[2022-04-25] MEDS: Tamsulosin HCL 0.4 MG CAPSULE PO (09:34)
[2022-04-25] MEDS: lisinopriL 5 MG TABLET G-TUBE (09:34)
[2022-04-25] MEDS: 0.9 % Sodium Chloride Flush 3 ML SYRINGE IVFLUSH ×3 (09:34→19:49)
[2022-04-25] MEDS: Folic Acid 1 MG TABLET G-TUBE (09:34)
[2022-04-25] MEDS: amLODIPine Besylate 10 MG TABLET G-TUBE (09:34)
[2022-04-25] MEDS: Thiamine HCL 100 MG TABLET G-TUBE (09:34)
[2022-04-25] MEDS: Cholecalciferol (Vitamin D3) 25 MCG TABLET 50 MCG G-TUBE (09:34)
[2022-04-25] MEDS: levETIRAcetam 500 MG TABLET G-TUBE ×2 (09:35→19:48)
[2022-04-25] MEDS: Cyanocobalamin (Vitamin B-12) 1,000 MCG TABLET 1000 MCG G-TUBE (09:35)
[2022-04-25 10:40] LABS: Vancomycin Random 10.5 mcg/mL (15-20)
[2022-04-25 11:59] LABS: Glucose, Whole Blood 120 mg/dL (60-115)
[2022-04-25 12:00] VITALS: BP 142/73; PULSE 84; RESP 20; TEMP 37.1; O2SAT 97
[2022-04-25] MEDS: vancomycin HCL 1,500 MG in 0.9 % Sodium Chloride 500 ML 333.33 MG IV (12:26)
--- NOTE | 2022-04-25 12:39 | HO.PM.IMPN ---
Subjective Subjective Date of Service: 04/25/22 Interval History: history obtained via japanese interpreter patient resting comfortably offers no acute complaints, no pain, no nausea, no vomiting, tolerating tube feedings, no recurrent episode of bloody stools. Review of Systems General no headache, no dizziness, no fever chills.? CVS no chest pain, no palpitation.? Respiratory no cough, no sob Gastrointestinal no nausea, no vomiting, no abdominal pain Review of Systems: Yes all other systems are reviewed and are negative Physical Exam Vital Signs: Vital Signs: Last Vital Signs Temp 97.0 F 04/25/22 08:00 Pulse 90 04/25/22 08:00 Resp 20 04/25/22 08:00 BP 162/77 H 04/25/22 08:00 Pulse Ox 98 04/25/22 08:00 O2 Del Method 04/25/22 08:00 O2 Flow Rate 2.5 04/21/22 06:46 BMI result Body Mass Index 22.4 Const: Other: General awake aler t resting comforta bryant in bed in no a cute distress? Nec k supple, no JVD C VS regular rate rh ythm S1-S2 Lungs c lear to auscultati on bilaterally,no wheezing or crackl es appreciated Abd omen soft, non ten ruth, no guarding, no rigidity, G-tub e site with no red ness or drainage N euro awake alert f ollowing commands, speech clear no p ronator drift symm etrical face tongu e midline no facia l droop Extremity: left AKA, smita in place, no drai nage, poor healing with incision gely e opened up latera lly. skin no rash Objective Data Active Medications Acetaminophen (Acetaminophen 325 Mg Tablet) 650 mg PO Q6H PRN PRN Reason: Pain, Mild (Pain Scale 1-3) Amlodipine Besylate (Amlodipine Besylate 10 Mg Tablet) 10 mg G-TUBE DAILY [facility]; Protocol Last Admin: 04/25/22 09:34 Dose: 10 mg Documented By: KEITH Atorvastatin Calcium (Atorvastatin Calcium 40 Mg Tablet) 40 mg G-TUBE BEDTIME [facility] Last Admin: 04/24/22 19:45 Dose: 40 mg Documented By: VENTURA Cyanocobalamin (Cyanocobalamin (Vitamin B-12) 1,000 Mcg Tablet) 1,000 mcg G-TUBE DAILY [facility] Last Admin: 04/25/22 09:35 Dose: 1,000 mcg Documented By: KEITH Dextrose (Dextrose 50 % 25 Gm/50 Ml Syringe) 25 gm IVPUSH Q15M PRN; Protocol PRN Reason: per Hypoglycemia Standing Ord. Last Admin: 04/22/22 06:03 Dose: 25 gm Documented By: MICHELLE Folic Acid (Folic Acid 1 Mg Tablet) 1 mg G-TUBE DAILY [facility] Last Admin: 04/25/22 09:34 Dose: 1 mg Documented By: KEITH Glucose (Glucose Gel 15 Gm Gel..Gram.) 15 gm PO Q15M PRN; Protocol PRN Reason: per Hypoglycemia Standing Ord. Ceftriaxone Sodium 1 gm/ (Sodium Chloride) 50 mls @ 100 mls/hr IV Q24H [facility] Last Infusion: 04/25/22 01:37 Dose: 0 mls/hr Documented By: VENTURA Vancomycin HCl 1,500 mg/ (Sodium Chloride) 500 mls @ 333.333 mls/hr IV Q12H [facility] Last Admin: 04/25/22 12:26 Dose: 333.33 mls/hr Documented By: KEITH Insulin Human Lispro (Insulin Lispro 100 Unit/Ml 3 Ml Vial) 0 unit SUBCUT Q6H [facility]; Protocol Last Admin: 04/25/22 12:19 Dose: Not Given Documented By: KEITH Non-Admin Reason: No Insulin Coverage Levetiracetam (Levetiracetam 500 Mg Tablet) 500 mg G-TUBE BID [facility] Last Admin: 04/25/22 09:35 Dose: 500 mg Documented By: KEITH Lisinopril (Lisinopril 5 Mg Tablet) 5 mg G-TUBE DAILY [facility]; Protocol Last Admin: 04/25/22 09:34 Dose: 5 mg Documented By: KEITH Melatonin (Melatonin 3 Mg Tablet) 6 mg PO BEDTIME PRN PRN Reason: Insomnia Metoprolol Tartrate (Metoprolol Tartrate 12.5 Mg Halftab) 12.5 mg G-TUBE BID [facility]; Protocol Last Admin: 04/25/22 09:33 Dose: 12.5 mg Documented By: KEITH Omeprazole (Omeprazole 20 Mg/10 Ml Susp.Recon) 20 mg G-TUBE DAILY@0630 [facility] Last Admin: 04/25/22 05:42 Dose: 20 mg Documented By: VENTURA Ondansetron HCl (Ondansetron Hcl 4 Mg/2 Ml Vial) 4 mg IVPUSH Q8H PRN PRN Reason: Nausea and Vomiting Pharmacy Consult (Consult Rx Perform Med Rec) 1 each MISCELLANE ONCE PRN PRN Reason: Consult order Pharmacy Consult (Consult Rx Vancomycin Dosing) 1 each MISCELLANE DAILY PRN PRN Reason: Consult order Sodium Chloride (0.9 % Sodium Chloride Flush 3 Ml Syringe) 3 ml IVFLUSH QSHIFT [facility] Last Admin: 04/25/22 09:34 Dose: 3 ml Documented By: KEITH Tamsulosin HCl (Tamsulosin Hcl 0.4 Mg Capsule) 0.4 mg PO DAILY [facility] Last Admin: 04/25/22 09:34 Dose: 0.4 mg Documented By: KEITH Thiamine HCl (Thiamine Hcl 100 Mg Tablet) 100 mg G-TUBE DAILY [facility] Last Admin: 04/25/22 09:34 Dose: 100 mg Documented By: KEITH Vitamin D (Cholecalciferol (Vitamin D3) 25 Mcg Tablet) 50 mcg G-TUBE DAILY [facility] Last Admin: 04/25/22 09:34 Dose: 50 mcg Documented By: KEITH Labs CBC & Chem 7: 04/24/22 06:22 04/25/22 06:13 Labs: Laboratory Results - last 24 hr 04/24/22 04/24/22 04/24/22 14:04 15:29 21:04 Estim Creat Clear Calc Estimated GFR POC Glucose 116 H 142 H 142 H Random Vancomycin 04/25/22 04/25/22 04/25/22 02:16 06:13 08:13 Estim Creat Clear Calc 130.8 Estimated GFR > 60 POC Glucose 132 H 136 H Random Vancomycin 04/25/22 04/25/22 09:55 11:34 Estim Creat Clear Calc Estimated GFR POC Glucose 120 H Random Vancomycin 10.5 L Microbiology Microbiology Results: Microbiology 04/21/22 05:29 Blood Culture - Final Blood - Venous Enterococcus faecalis Enterobacter cloacae complex Methicillin Res Staph Aureus 04/21/22 05:29 Blood Culture - Final Blood - Venous Enterococcus faecalis Assessment and Plan (1) Severe anemia: Status: Acute (2) Acute blood loss anemia: Status: Resolved Plan 66-year-old male with 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 #. Acute upper GI bleed with acute blood loss anemia: underwent upper endoscopy 04/22 and diagnosed to have gastritis, esophagitis and duodenal ulcer with visible vessel,status post 3 units of FFP and 3 units of packed RBC hematocrit improved no recurrent bleed hct 27, continue G-tube feedings, Eliquis discontinued Continue Prilosec indefinitely, negative H pylori, gastric biopsy showed mild chronic inactive gastritis, intestinal metaplasia and dysplasia Dr. Chaudhry recommend colonoscopy on Wednesday, will hold tube feeds Wednesday morning will only give water through G tube during day. # Enterococcus/MRSA/ Enterobacter UA unremarkable , CT abdomen and pelvis showed left lower lobe pneumonia, bladder wall thickening and small amount of air in the bladder patient had Suazo catheter but he pulled likely gas related to it, questionable sludge in gallbladder nl LFts, no abd pain less likely acute cholecystitis, questions from skin infection with nonhealing stump, continue continue vancomycin and IV ceftriaxone day , bcx 2 neg 04/21 will check echo id recommend 4 weeks of IV antibiotic after 1st negative blood cultures # left facial droop, no acute CVA, symmetrical face, normal neuro examination chronically on Eliquis no evidence of acute stroke, CT head and CTA head and neck unremarkable #.? Acute lactic acidosis: Resolved with IV hydration #.? Acute metabolic encephalopathy: Resolved # left above knee amputation, nonhealing stump seen by Dr. Valdovinos he recommend no acute intervention and recommend to keep sutures and smita continue dressing and local wound care #.? HTN: continue metoprolol, lisinopril, amlodipine, few high blood pressure readings will follow BP remains elevated will increase dose of metoprolol to 25 b.i.d. #.? Seizure disorder: Continue by Makayla via G-tube ,. seizure precautions # history of DVT will dc , patient has history of left leg DVT diagnosed in August of 2021, repeat Doppler study in is negative #.? PAD:? On statin #.? Alcohol use disorder: on thiamine and folic acid, stable LFTs. #.? Hyperglycemia: No h/o DM,?hemoglobin A1c 4.8, DC Accu-Cheks and sliding scale insulin.? DVT Prohpylaxis: compression boots DNR/DNI Patient need continued inpatient stay for acute blood loss anemia and on iv abx for bacteremia, need colonoscopy on Wednesday Time Spent With Patient Time: Total time managing care of this patient today ____ minutes. Quality Stroke Does the patient have a stroke diagnosis?: No VTE Prior VTE?: No VTE Risk Level:: Medical - moderate - high VTE Device Contraindication: Treatment Not Indicated VTE Drug Contraindication: Treatment Not Indicated
[2022-04-25 16:00] VITALS: BP 156/75; PULSE 90; RESP 18; TEMP 37.1; O2SAT 98
[2022-04-25 16:17] LABS: Glucose, Whole Blood 110 mg/dL (60-115)
[2022-04-25 19:45] VITALS: BP 165/79; PULSE 93; RESP 18; TEMP 36.7; O2SAT 97
[2022-04-25] MEDS: Atorvastatin Calcium 40 MG TABLET G-TUBE (19:48)
[2022-04-25] MEDS: Melatonin 3 MG TABLET 6 MG PO (19:48)
[2022-04-25] MEDS: PEG 3350/Na Sulf,Bicarb,Cl/KCL 4,000 ML SOLN.RECON 4000 ML G-TUBE (19:48)
[2022-04-25 20:19] LABS: Glucose, Whole Blood 117 mg/dL (60-115)
[2022-04-26] VITALS (7 sets, daily range): BP systolic 121–150; BP diastolic 59–70; PULSE 80–101; RESP 12–18; TEMP 36.1–37.3; O2SAT 96–97
[2022-04-26] MEDS: cefTRIAXone sodium 1 GM in 0.9 % Sodium Chloride 50 ML IV ×2 (00:20→22:13)
[2022-04-26] MEDS: vancomycin HCL 1,500 MG in 0.9 % Sodium Chloride 500 ML 333.33 MG IV ×2 (01:33→12:03)
[2022-04-26 03:01] LABS: Glucose, Whole Blood 122 mg/dL (60-115)
[2022-04-26 07:57] LABS: Glucose, Whole Blood 129 mg/dL (60-115)
[2022-04-26] MEDS: lisinopriL 5 MG TABLET G-TUBE (08:57)
[2022-04-26] MEDS: Cyanocobalamin (Vitamin B-12) 1,000 MCG TABLET 1000 MCG G-TUBE (08:57)
[2022-04-26] MEDS: Metoprolol Tartrate 12.5 MG HALFTAB G-TUBE ×2 (08:57→20:56)
[2022-04-26] MEDS: levETIRAcetam 500 MG TABLET G-TUBE ×2 (08:57→20:56)
[2022-04-26] MEDS: 0.9 % Sodium Chloride Flush 3 ML SYRINGE IVFLUSH ×2 (08:57→20:56)
[2022-04-26] MEDS: Cholecalciferol (Vitamin D3) 25 MCG TABLET 50 MCG G-TUBE (08:57)
[2022-04-26] MEDS: Thiamine HCL 100 MG TABLET G-TUBE (08:57)
[2022-04-26] MEDS: amLODIPine Besylate 10 MG TABLET G-TUBE (08:58)
[2022-04-26] MEDS: Folic Acid 1 MG TABLET G-TUBE (08:58)
[2022-04-26 11:34] LABS: Creatinine Clr Calc Pharmacy 105.8; Estimated Glomerular Filt Rate > 60
--- NOTE | 2022-04-26 12:19 | P.PNIM_ITS ---
Subjective Subjective Date of Service: 04/26/22 Interval History: history obtained via educational interpreter patient resting comfortably offers no acute complaints, no pain, no nausea, no vomiting, tolerating tube feedings, no recurrent episode of bloody stools. Review of Systems General: No fevers, malaise, unintentional weight loss Cardiovascular: No chest pain, palpitations, or leg edema Respiratory: No shortness of breath, wheezing, cough GI: No abdominal pain, nausea, vomiting, diarrhea, constipation, melena, hematochezia MSK: No myalgia, back pain Neuro: No headaches, weakness, paresthesias Skin: No rashes or lesions Review of Systems: Yes all other systems are reviewed and are negative Physical Exam Vital Signs: Vital Signs: Last Vital Signs Temp 96.9 F 04/26/22 11:29 Pulse 84 04/26/22 11:29 Resp 12 04/26/22 11:29 BP 142/68 H 04/26/22 11:29 Pulse Ox 96 04/26/22 11:29 O2 Del Method 04/26/22 11:29 O2 Flow Rate 2.5 04/21/22 06:46 BMI result Body Mass Index 22.4 Constitutional - Awake and Alert, No apparent distress Eyes - PERRLA, EOMI Cardiovascular - S1S2, RRR, No edema Respiratory - Normal lung expansion, Normal respiratory effort, No respiratory distress, CTA bilaterally Gastrointestinal - NT / ND; +BS; No rebound or guarding, G-tube site without erythema or drainage Extremities - no calf tenderness bilaterally, no swelling Skin - Warm/Dry Neurological - Alert & oriented x3 Psychological - Appropriate affect Objective Data Active Medications Acetaminophen (Acetaminophen 325 Mg Tablet) 650 mg PO Q6H PRN PRN Reason: Pain, Mild (Pain Scale 1-3) Amlodipine Besylate (Amlodipine Besylate 10 Mg Tablet) 10 mg G-TUBE DAILY [facility]; Protocol Last Admin: 04/26/22 08:58 Dose: 10 mg Documented By: MICHAEL Atorvastatin Calcium (Atorvastatin Calcium 40 Mg Tablet) 40 mg G-TUBE BEDTIME [facility] Last Admin: 04/25/22 19:48 Dose: 40 mg Documented By: DELFINO Cyanocobalamin (Cyanocobalamin (Vitamin B-12) 1,000 Mcg Tablet) 1,000 mcg G- TUBE DAILY [facility] Last Admin: 04/26/22 08:57 Dose: 1,000 mcg Documented By: MICHAEL Dextrose (Dextrose 50 % 25 Gm/50 Ml Syringe) 25 gm IVPUSH Q15M PRN; Protocol PRN Reason: per Hypoglycemia Standing Ord. Last Admin: 04/22/22 06:03 Dose: 25 gm Documented By: MICHELLE Folic Acid (Folic Acid 1 Mg Tablet) 1 mg G-TUBE DAILY [facility] Last Admin: 04/26/22 08:58 Dose: 1 mg Documented By: MICHAEL Glucose (Glucose Gel 15 Gm Gel..Gram.) 15 gm PO Q15M PRN; Protocol PRN Reason: per Hypoglycemia Standing Ord. Ceftriaxone Sodium 1 gm/ (Sodium Chloride) 50 mls @ 100 mls/hr IV Q24H [facility] Last Infusion: 04/26/22 01:20 Dose: 0 mls/hr Documented By: DELFINO Vancomycin HCl 1,500 mg/ (Sodium Chloride) 500 mls @ 333.333 mls/hr IV Q12H [facility] Last Admin: 04/26/22 12:03 Dose: 333.33 mls/hr Documented By: MICHAEL Insulin Human Lispro (Insulin Lispro 100 Unit/Ml 3 Ml Vial) 0 unit SUBCUT Q6H [facility]; Protocol Last Admin: 04/26/22 07:59 Dose: Not Given Documented By: MICHAEL Non-Admin Reason: No Insulin Coverage Levetiracetam (Levetiracetam 500 Mg Tablet) 500 mg G-TUBE BID [facility] Last Admin: 04/26/22 08:57 Dose: 500 mg Documented By: MICHAEL Lisinopril (Lisinopril 5 Mg Tablet) 5 mg G-TUBE DAILY [facility]; Protocol Last Admin: 04/26/22 08:57 Dose: 5 mg Documented By: MICHAEL Melatonin (Melatonin 3 Mg Tablet) 6 mg PO BEDTIME PRN PRN Reason: Insomnia Last Admin: 04/25/22 19:48 Dose: 6 mg Documented By: DELFINO Metoprolol Tartrate (Metoprolol Tartrate 12.5 Mg Halftab) 12.5 mg G-TUBE BID [facility]; Protocol Last Admin: 04/26/22 08:57 Dose: 12.5 mg Documented By: MICHAEL Omeprazole (Omeprazole 20 Mg/10 Ml Susp.Recon) 20 mg G-TUBE DAILY@0630 [facility] Last Admin: 04/26/22 05:24 Dose: Not Given Documented By: DELFINO Non-Admin Reason: NPO Ondansetron HCl (Ondansetron Hcl 4 Mg/2 Ml Vial) 4 mg IVPUSH Q8H PRN PRN Reason: Nausea and Vomiting Pharmacy Consult (Consult Rx Perform Med Rec) 1 each MISCELLANE ONCE PRN PRN Reason: Consult order Pharmacy Consult (Consult Rx Vancomycin Dosing) 1 each MISCELLANE DAILY PRN PRN Reason: Consult order Polyethylene Glycol/Electrolytes (Peg 3350/Na Sulf,Bicarb,Cl/Kcl 4,000 Ml Soln.Recon) 4,000 ml G-TUBE ONCE ONE Stop: 04/26/22 19:01 Sodium Chloride (0.9 % Sodium Chloride Flush 3 Ml Syringe) 3 ml IVFLUSH QSHIFT [facility] Last Admin: 04/26/22 08:57 Dose: 3 ml Documented By: MICHAEL Tamsulosin HCl (Tamsulosin Hcl 0.4 Mg Capsule) 0.4 mg PO DAILY [facility] Last Admin: 04/26/22 08:58 Dose: Not Given Documented By: MICHAEL Non-Admin Reason: NPO Thiamine HCl (Thiamine Hcl 100 Mg Tablet) 100 mg G-TUBE DAILY [facility] Last Admin: 04/26/22 08:57 Dose: 100 mg Documented By: MICHAEL Vitamin D (Cholecalciferol (Vitamin D3) 25 Mcg Tablet) 50 mcg G-TUBE DAILY [facility] Last Admin: 04/26/22 08:57 Dose: 50 mcg Documented By: MICHAEL Labs CBC & Chem 7: 04/24/22 06:22 04/26/22 10:22 Labs: Laboratory Results - last 24 hr 04/25/22 04/25/22 04/26/22 16:12 19:53 02:57 Estim Creat Clear Calc Estimated GFR POC Glucose 110 117 H 122 H 04/26/22 04/26/22 07:51 10:22 Estim Creat Clear Calc 105.8 Estimated GFR > 60 POC Glucose 129 H Microbiology Microbiology Results: Microbiology 04/21/22 05:29 Blood Culture - Final Blood - Venous Enterococcus faecalis Enterobacter cloacae complex Methicillin Res Staph Aureus Assessment and Plan (1) Severe anemia: Status: Acute (2) Acute blood loss anemia: Status: Resolved Plan 66-year-old male with 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 #. Acute upper GI bleed with acute blood loss anemia: underwent upper endoscopy 04/22 and diagnosed to have gastritis, esophagitis and duodenal ulcer with visible vessel,status post 3 units of FFP and 3 units of packed RBC hematocrit improved no recurrent bleed hct 27, continue G-tube feedings, Eliquis discontinued Continue Prilosec indefinitely, negative H pylori, gastric biopsy showed mild chronic inactive gastritis, intestinal metaplasia and dysplasia Dr. Chaudhry recommend colonoscopy on Wednesday- Hold tube feeds Wednesday morning will only give water through G tube during day. # Enterococcus/MRSA/ Enterobacter UA unremarkable , CT abdomen and pelvis showed left lower lobe pneumonia, bladder wall thickening and small amount of air in the bladder patient had Suazo catheter but he pulled likely gas related to it, questionable sludge in gallbladder nl LFts, no abd pain less likely acute cholecystitis, questions from skin infection with nonhealing stump, continue continue vancomycin and IV ceftriaxone day , bcx 2 neg 04/21 echo pending id recommend 4 weeks of IV antibiotic after 1st negative blood cultures- D4 IV vanco and ceftriaxone # left facial droop, no acute CVA, symmetrical face, normal neuro examination chronically on Eliquis no evidence of acute stroke, CT head and CTA head and neck unremarkable #.? Acute lactic acidosis: Resolved with IV hydration #.? Acute metabolic encephalopathy: Resolved # left above knee amputation, nonhealing stump seen by Dr. Valdovinos he recommend no acute intervention and recommend to keep sutures and smita continue dressing and local wound care #.? HTN: continue metoprolol, lisinopril, amlodipine, few high blood pressure readings will follow BP remains elevated will increase dose of metoprolol to 25 b.i.d. #.? Seizure disorder: Continue by Makayla via G-tube ,. seizure precautions # history of DVT will dc , patient has history of left leg DVT diagnosed in August of 2021, repeat Doppler study in is negative #.? PAD:? On statin #.? Alcohol use disorder: on thiamine and folic acid, stable LFTs. #.? Hyperglycemia: No h/o DM,?hemoglobin A1c 4.8, DC Accu-Cheks and sliding scale insulin.? DVT Prohpylaxis: compression boots DNR/DNI Patient need continued inpatient stay for acute blood loss anemia and on iv abx for bacteremia, need colonoscopy on Wednesday Time Spent With Patient Time: Total time managing care of this patient today 25minutes. Quality Stroke Does the patient have a stroke diagnosis?: No VTE Prior VTE?: No VTE Risk Level:: Medical - moderate - high VTE Device Contraindication: Treatment Not Indicated VTE Drug Contraindication: Treatment Not Indicated
[2022-04-26 14:22] LABS: Glucose, Whole Blood 91 mg/dL (60-115)
--- NOTE | 2022-04-26 18:00 | PC.NURSE ---
report recieved from overnight RN, tube feed on hold per MD orders due to procedure 04/27, water flush q4 per orders. health services administrator per JUL. Call mcconnell within reach, camera in room, hourly rounding, bed alarm on, safety precautions taken.
[2022-04-26] MEDS: PEG 3350/Na Sulf,Bicarb,Cl/KCL 4,000 ML SOLN.RECON 4000 ML G-TUBE (19:22)
[2022-04-26 19:47] LABS: Glucose, Whole Blood 93 mg/dL (60-115)
[2022-04-26] MEDS: Atorvastatin Calcium 40 MG TABLET G-TUBE (20:56)
[2022-04-27 02:41] LABS: Glucose, Whole Blood 94 mg/dL (60-115)
[2022-04-27 03:33] VITALS: BP 156/74; PULSE 83; RESP 16; TEMP 36.6; O2SAT 97
--- NOTE | 2022-04-27 04:23 | PC.NURSE ---
0000 dose of vanco held vanco trough 31.0.
--- NOTE | 2022-04-27 06:15 | PC.NURSE ---
go aziza prep given via g-tube wolfgang well passing large amts of liquid stool.Last bm was large amt of yellow liquid.
[2022-04-27 06:40] LABS: Creatinine Clr Calc Pharmacy 71.2; Estimated Glomerular Filt Rate > 60
--- NOTE | 2022-04-27 07:00 | CA_ITS ---
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 The visually estimated ejection fraction is between 40-45%. - E/E prime ratio is between 8 and 15 consistent with indeterminate filling pressures. - The apical inferior and mid inferior segments are hypokinetic. - The basal inferior and basal inferoseptal segments are akinetic. - There is mild anterior mitral leaflet thickening. There is trace mitral valve regurgitation. There is no mitral valve stenosis. Findings Procedure Information Contrast agent, definity, is being given per protocol without apparent complications. Left Ventricle Normal left ventricular cavity size. There is normal left ventricular wall thickness. The left ventricular systolic function is mildly decreased. The visually estimated ejection fraction is between 40-45%. There is evidence of regional wall motion abnormalities. Abnormal diastolic function is noted. Spectral Doppler is indicative of an impaired relaxation filling pattern. E/E prime ratio is between 8 and 15 consistent with indeterminate filling pressures. Wall Motion Rest Echo Findings The apical inferior and mid inferior segments are hypokinetic. The basal inferior and basal inferoseptal segments are akinetic. Right Ventricle Normal right ventricular cavity size and systolic function. Atria The left atrium is likely dilated. Aortic Valve Normal aortic valve structure and function. There is no aortic valve stenosis. There is no aortic valve regurgitation. Mitral Valve There is mild anterior mitral leaflet thickening. There is trace mitral valve regurgitation. There is no mitral valve stenosis. Pulmonic Valve Normal pulmonic valve structure and function. There is trace pulmonic valve regurgitation. Tricuspid Valve Normal tricuspid valve structure. There is trace tricuspid valve regurgitation. Normal right atrial pressure. There is no evidence of pulmonary hypertension. Great Vessels All visible segments of the aorta are normal in size. The visualized portions of the pulmonary artery and branches are normal. Venous The inferior vena cava is normal in size and collapses greater than 50% with inspiration. Pericardium/Pleural There is no evidence of pericardial effusion. Prior Study Comparison Changes noted compared to prior study dated: 05/08/2021. EF 40-45%, inferior wall and inferoseptal wall motion abnormality. Measurements 2D Linear Measurements IVSd: 1.04 0.6-0.9/0.6-1.0 cm LVIDd: 4.96 3.9-5.3/4.2-5.9 cm LVIDd Index: 2.64 2.4-3.2/2.2-3.1 cm/m2 LVIDs: 4.35 2.0-3.6 cm LVPWd: 1.06 0.7-1.1 cm LA Diam: 2.70 2.7-3.8/3.0-4.0 cm LAIDs Index: 1.44 1.5-2.3 cm/m2 LV Mass: 239.07 67-162/88-224 g LV Mass Index: 127.16 43-95/49-115 g/m2 LVOT Diam: 2.10 3.0+(-)1.3 cm 2D Systolic Function EF 4C: 44.90 >55% EF 2C: 44.00 >55% EF BiP: 42.70 >55% Mitral Valve MV Pk E: 0.88 MV PK A: 0.89 MV Decel Time: 178.00 E/A: 1.00 E'Lateral: 8.59 E'Medial: 5.87 E/E' Med: 15.00 E/E' Lat: 10.20 PHT: 52.00 MVA PHT: 4.[address] [place]: 4.94 Aortic Valve AoV Pk Carlos: 1.53 AoV Mn Carlos: 0.89 AoV VTI: 0.24 AoV Pk Grad: 9.00 Aov Mn Grad: 4.00 SANDRITA Cont.VTI: 2.60 LVOT LVOT Pk Carlos: 1.25 LVOT Mn Carlos: 0.71 LVOT VTI: 0.18 LVOT Pk Grad: 6.00 LVOT Mn Grad: 2.00 LVOT Diam: 2.10 LVOT Area: 3.46 Diastolic Function MV Pk E: 0.88 MV Pk A: 0.89 E/A: 1.00 E'Medial: 5.87 E/E' Med: 15.00 E' Laterial: 8.59 E/E' Lat: 10.20 Right Ventricle TAPSE (mm): 23.50 TVS' Carlos: 11.40 Tricuspid Valve TR Pk Carlos: 1.51 TR Pk Grad: 9.00 RA Press: 3.00 RVSP: 12.00 Great Vessels Aorta Sinus of Valsalva: 3.56 2.0-3.[address] [place]: 2.58 1.7-3.4 cm Ao Asc: 3.30 2.1-3.4 cm Updated in Other Vendor System with Status of Final Remberto Ventura MD electronically signed on 04/27/2022 3:55:14 PM with status of Final
[2022-04-27 07:13] LABS: Glucose, Whole Blood 98 mg/dL (60-115)
[2022-04-27 07:41] VITALS: BP 147/74; PULSE 87; RESP 16; TEMP 36.6; O2SAT 98
[2022-04-27] MEDS: levETIRAcetam 500 MG TABLET G-TUBE (08:28)
--- NOTE | 2022-04-27 11:32 | MHC.CLN ---
F/U CURRENTLY NPO FOR COLONOSCOPY. WHEN ABLE TO RESUME TUBE FEEDING, RECOMMEND: JEVITY 1.0 AT MAX GOAL RATE 75ML/HR WITH 30ML PROSOURCE BID AND 120ML FREE WATER FLUSHES Q 6 HRS PROVIDES 2028TOTAL KCALS (28.6KCALS/KG), 110G PROTEIN (1.5G/KG), 2073ML TOTAL WATER FROM FORMULA AND FLUSHES (28ML/KG) ADDITIONAL PROTEIN TO PROMOTE WOUND HEALING. MONITOR TOLERANCE, RESIDUALS, AND LYTES.
[2022-04-27 11:51] LABS: Vancomycin Random 25.7 mcg/mL (15-20)
[2022-04-27 12:00] VITALS: BP 146/69; PULSE 91; RESP 20; TEMP 37.1; O2SAT 98
--- NOTE | 2022-04-27 12:20 | ECG_ITS ---
Test Reason : CHEST PAIN Blood Pressure : / mmHG Vent. Rate : 098 BPM Atrial Rate : 098 BPM P-R Int : 130 ms QRS Dur : 092 ms QT Int : 390 ms P-R-T Axes : 035 046 081 degrees QTc Int : 497 ms Sinus rhythm with occasional , and consecutive Premature ventricular complexes Moderate voltage criteria for LVH, may be normal variant ( Sokolow-Maciel , Stanhope product ) Prolonged QT Abnormal ECG When compared with ECG of 21-APR-2022 04:58, Premature ventricular complexes are now Present Referred By: Starr Gilmore Electronically Signed By:Remberto Ventura
[2022-04-27 12:28] LABS: Glucose, Whole Blood 101 mg/dL (60-115)
--- NOTE | 2022-04-27 12:28 | HO.PM.IMPN ---
Subjective Subjective Date of Service: 04/27/22 Interval History: Follow-up GI bleed Limited communication Denies pain Review of Systems Review of Systems: Yes all other systems are reviewed and are negative Physical Exam Vital Signs: Vital Signs: Last Vital Signs Temp 98.7 F 04/27/22 12:00 Pulse 91 04/27/22 12:00 Resp 20 04/27/22 12:00 BP 146/69 H 04/27/22 12:00 Pulse Ox 98 04/27/22 12:00 O2 Del Method 04/27/22 12:00 O2 Flow Rate 2.5 04/21/22 06:46 BMI result Body Mass Index 22.4 Appearing in no acute distress lung sounds are clear to auscultation heart regular rate rhythm, clear S1, S2 positive bowel sounds, abdomen is soft, nontender neuro patient is alert x3, no focal deficits Left AKA Objective Data Active Medications Acetaminophen (Acetaminophen 325 Mg Tablet) 650 mg PO Q6H PRN PRN Reason: Pain, Mild (Pain Scale 1-3) Amlodipine Besylate (Amlodipine Besylate 10 Mg Tablet) 10 mg G-TUBE DAILY [facility]; Protocol Last Admin: 04/26/22 08:58 Dose: 10 mg Documented By: MICHAEL Atorvastatin Calcium (Atorvastatin Calcium 40 Mg Tablet) 40 mg G-TUBE BEDTIME [facility] Last Admin: 04/26/22 20:56 Dose: 40 mg Documented By: SUSANA Cyanocobalamin (Cyanocobalamin (Vitamin B-12) 1,000 Mcg Tablet) 1,000 mcg G-TUBE DAILY [facility] Last Admin: 04/26/22 08:57 Dose: 1,000 mcg Documented By: MICHAEL Dextrose (Dextrose 50 % 25 Gm/50 Ml Syringe) 25 gm IVPUSH Q15M PRN; Protocol PRN Reason: per Hypoglycemia Standing Ord. Last Admin: 04/22/22 06:03 Dose: 25 gm Documented By: MICHELLE Folic Acid (Folic Acid 1 Mg Tablet) 1 mg G-TUBE DAILY [facility] Last Admin: 04/26/22 08:58 Dose: 1 mg Documented By: MICHAEL Glucose (Glucose Gel 15 Gm Gel..Gram.) 15 gm PO Q15M PRN; Protocol PRN Reason: per Hypoglycemia Standing Ord. Ceftriaxone Sodium 1 gm/ (Sodium Chloride) 50 mls @ 100 mls/hr IV Q24H [facility] Last Infusion: 04/26/22 23:05 Dose: 0 mls/hr Documented By: SUSANA Vancomycin HCl 1,500 mg/ (Sodium Chloride) 500 mls @ 333.333 mls/hr IV Q12H [facility] Last Admin: 04/27/22 00:22 Dose: Not Given Documented By: SUSANA Non-Admin Reason: vanco trough 31.0 Insulin Human Lispro (Insulin Lispro 100 Unit/Ml 3 Ml Vial) 0 unit SUBCUT Q6H [facility]; Protocol Last Admin: 04/27/22 07:56 Dose: Not Given Documented By: PAPO Non-Admin Reason: No Insulin Coverage Levetiracetam (Levetiracetam 500 Mg Tablet) 500 mg G-TUBE BID [facility] Last Admin: 04/27/22 08:28 Dose: 500 mg Documented By: PAPO Lisinopril (Lisinopril 5 Mg Tablet) 5 mg G-TUBE DAILY [facility]; Protocol Last Admin: 04/26/22 08:57 Dose: 5 mg Documented By: MICHAEL Melatonin (Melatonin 3 Mg Tablet) 6 mg PO BEDTIME PRN PRN Reason: Insomnia Last Admin: 04/25/22 19:48 Dose: 6 mg Documented By: DELFINO Metoprolol Tartrate (Metoprolol Tartrate 12.5 Mg Halftab) 12.5 mg G-TUBE BID [facility]; Protocol Last Admin: 04/26/22 20:56 Dose: 12.5 mg Documented By: SUSANA Omeprazole (Omeprazole 20 Mg/10 Ml Susp.Recon) 20 mg G-TUBE DAILY@0630 [facility] Last Admin: 04/27/22 05:29 Dose: Not Given Documented By: SUSANA Non-Admin Reason: NPO Ondansetron HCl (Ondansetron Hcl 4 Mg/2 Ml Vial) 4 mg IVPUSH Q8H PRN PRN Reason: Nausea and Vomiting Pharmacy Consult (Consult Rx Perform Med Rec) 1 each MISCELLANE ONCE PRN PRN Reason: Consult order Pharmacy Consult (Consult Rx Vancomycin Dosing) 1 each MISCELLANE DAILY PRN PRN Reason: Consult order Sodium Chloride (0.9 % Sodium Chloride Flush 3 Ml Syringe) 3 ml IVFLUSH QSHIFT [facility] Last Admin: 04/26/22 20:56 Dose: 3 ml Documented By: SUSANA Tamsulosin HCl (Tamsulosin Hcl 0.4 Mg Capsule) 0.4 mg PO DAILY [facility] Last Admin: 04/26/22 08:58 Dose: Not Given Documented By: MICHAEL Non-Admin Reason: NPO Thiamine HCl (Thiamine Hcl 100 Mg Tablet) 100 mg G-TUBE DAILY [facility] Last Admin: 04/26/22 08:57 Dose: 100 mg Documented By: MICHAEL Vitamin D (Cholecalciferol (Vitamin D3) 25 Mcg Tablet) 50 mcg G-TUBE DAILY [facility] Last Admin: 04/26/22 08:57 Dose: 50 mcg Documented By: MICHAEL Labs CBC & Chem 7: 04/24/22 06:22 04/27/22 06:17 Labs: Laboratory Results - last 24 hr 04/26/22 04/26/22 04/26/22 14:17 19:41 21:59 Estim Creat Clear Calc Estimated GFR POC Glucose 91 93 Random Vancomycin 31.0 H* 04/27/22 04/27/22 04/27/22 02:37 06:17 07:09 Estim Creat Clear Calc 71.2 Estimated GFR > 60 POC Glucose 94 98 Random Vancomycin 04/27/22 10:56 Estim Creat Clear Calc Estimated GFR POC Glucose Random Vancomycin 25.7 H* Microbiology Microbiology Results: Microbiology 04/21/22 23:04 Blood Culture - Final Blood - Venous No growth after 5 days. 04/21/22 23:04 Blood Culture - Final Blood - Venous No growth after 5 days. Assessment and Plan (1) Severe anemia: Status: Acute (2) Acute blood loss anemia: Status: Resolved Plan 66-year-old male with 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 Acute upper GI bleed with acute blood loss anemia underwent upper endoscopy 04/22 and diagnosed to have gastritis, esophagitis and duodenal ulcer with visible vessel,status post 3 units of FFP and 3 units of packed RBC hematocrit improved no recurrent bleed Eliquis discontinued Continue Prilosec indefinitely, negative H pylori, gastric biopsy showed mild chronic inactive gastritis, intestinal metaplasia and dysplasia Plan for colonoscopy as per GI Enterococcus/MRSA/ Enterobacter Likely from skin infection with nonhealing stump wound, dehiscence echo pending ID recommend 4 weeks of IV antibiotic after 1st negative blood cultures, IV vanco and ceftriaxone General surgery consultation for wound dehiscence, cleanse wound with ns, non stick dressing Acute lactic acidosis Resolved with IV hydration Acute metabolic encephalopathy Resolved HTN continue metoprolol, lisinopril, amlodipine Seizure disorder Continue by Makayla via G-tube seizure precautions History of DVT patient has 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 Hyperglycemia No h/o DM,?hemoglobin A1c 4.8, DC Accu-Cheks and sliding scale insulin.? DVT Prohpylaxis compression boots Attending Dr. Kapadia DNR/DNI Patient need continued inpatient stay for acute blood loss anemia and on iv abx for bacteremia, need colonoscopy on Wednesday Time Spent With Patient Time: Total time managing care of this patient today ____ minutes. Quality Stroke Does the patient have a stroke diagnosis?: No VTE Prior VTE?: No VTE Risk Level:: Medical - moderate - high VTE Device Contraindication: Treatment Not Indicated VTE Drug Contraindication: Treatment Not Indicated
[2022-04-27] MEDS: Cholecalciferol (Vitamin D3) 25 MCG TABLET 50 MCG G-TUBE (12:43)
[2022-04-27] MEDS: Cyanocobalamin (Vitamin B-12) 1,000 MCG TABLET 1000 MCG G-TUBE (12:43)
[2022-04-27] MEDS: Thiamine HCL 100 MG TABLET G-TUBE (12:43)
[2022-04-27] MEDS: Metoprolol Tartrate 12.5 MG HALFTAB G-TUBE ×2 (12:44→22:51)
[2022-04-27] MEDS: Acetaminophen 325 MG TABLET 650 MG PO (12:44)
[2022-04-27] MEDS: Tamsulosin HCL 0.4 MG CAPSULE PO (12:44)
[2022-04-27] MEDS: amLODIPine Besylate 10 MG TABLET G-TUBE (12:44)
[2022-04-27] MEDS: 0.9 % Sodium Chloride Flush 3 ML SYRINGE IVFLUSH ×3 (12:45→22:52)
[2022-04-27 14:31] LABS: Troponin-I High Sensitivity 20.5 ng/L (<3.5-35.0)
[2022-04-27 14:57] LABS: Glucose, Whole Blood 87 mg/dL (60-115)
--- NOTE | 2022-04-27 15:24 | MHC.CM.PN ---
per rounds pt to have a colonoscopy prior [facility] dc [facility]
[2022-04-27 15:34] VITALS: BP 126/67; PULSE 89; RESP 16; TEMP 37.1; O2SAT 98
[2022-04-27 18:56] LABS: Hematocrit 23.7 % (42.0-52.0); Hemoglobin 7.8 g/dl (14.0-18.0)
[2022-04-27 19:05] LABS: Glucose, Whole Blood 90 mg/dL (60-115)
[2022-04-27 19:12] VITALS: BP 146/70; PULSE 89; RESP 17; TEMP 36.8; O2SAT 98
[2022-04-27 21:40] LABS: Vancomycin Random 17.6 mcg/mL (15-20)
--- NOTE | 2022-04-27 21:53 | HE.PHANOTE ---
ULISSES VENTURA WILL HOLD ANOTHER DOSE AND GET RANDOM LEVEL TOMORROW MORNING BEFORE NEXT DOSE, 04/28 @0700 JACOBO
[2022-04-27 22:23] LABS: Creatinine Clr Calc Pharmacy 71.2; Estimated Glomerular Filt Rate > 60
[2022-04-27] MEDS: levETIRAcetam Oral Soln 500 MG/5 ML G-TUBE (22:50)
[2022-04-27] MEDS: cefTRIAXone sodium 1 GM in 0.9 % Sodium Chloride 50 ML IV (22:50)
[2022-04-27] MEDS: Atorvastatin Calcium 40 MG TABLET G-TUBE (22:51)
[2022-04-27 23:40] VITALS: BP 122/60; PULSE 86; RESP 16; TEMP 36.1; O2SAT 96
[2022-04-28 02:33] LABS: Glucose, Whole Blood 98 mg/dL (60-115)
[2022-04-28 03:03] VITALS: BP 159/72; PULSE 89; RESP 18; TEMP 36.7; O2SAT 97
--- NOTE | 2022-04-28 06:00 | ECG_ITS ---
Test Reason : qtc Blood Pressure : / mmHG Vent. Rate : 094 BPM Atrial Rate : 094 BPM P-R Int : 122 ms QRS Dur : 096 ms QT Int : 412 ms P-R-T Axes : 095 038 076 degrees QTc Int : 515 ms Poor data quality Sinus rhythm with Premature supraventricular complexes and with occasional Premature ventricular complexes Minimal voltage criteria for LVH, may be normal variant ( Rueter product ) Prolonged QT Abnormal ECG When compared with ECG of 27-APR-2022 12:28, Premature supraventricular complexes are now Present Referred By: Starr Gilmore Electronically Signed By:Remberto Ventura
[2022-04-28 07:23] VITALS: BP 170/76; PULSE 88; RESP 16; TEMP 36.4; O2SAT 97
[2022-04-28 07:42] LABS: MANUAL DIFF FLAG NO
[2022-04-28 07:49] LABS: Basophils Absolute Auto 0.1 X10*3/uL (0.0-0.2); Basophils Percent Auto 0.5 % (0-2); Eosinophils Absolute Auto 0.3 X10*3/uL (0.0-0.4); Eosinophils Percent Auto 2.1 % (0-4); Hematocrit 25.3 % (42.0-52.0); Hemoglobin 8.2 g/dl (14.0-18.0); Imm Gran Abs Auto 0.06 X10*3/uL (0.00-0.03); Imm Gran Pct Auto 0.5 % (0.0-0.4); Lymphocytes Absolute Auto 2.5 X10*3/uL (1.2-4.9); Lymphocytes Percent Auto 18.8 % (20-40); Mean Corpuscular HGB Conc 32.4 g/dl (31.0-36.0); Mean Corpuscular Hemoglobin 30.8 pg (27.0-33.0); Mean Corpuscular Volume 95.1 fL (80.0-98.0); Mean Platelet Volume 8.8 fL (9.4-12.4); Monocytes Absolute Auto 1.2 X10*3/uL (0.1-1.2); Monocytes Percent Auto 8.8 % (2-11); Neutrophils Absolute Auto 9.1 x10*3/uL (2.0-8.3); Neutrophils Percent Auto 69.3 % (45-73); Platelet Count 441 X10*3/uL (160-400); Red Blood Count 2.66 X10*6/uL (4.60-5.80); Red Cell Distribution Width 15.7 % (11.0-16.0); White Blood Count 13.1 X10*3/uL (4.8-10.8)
[2022-04-28 08:03] LABS: Creatinine Clr Calc Pharmacy 73.4; Estimated Glomerular Filt Rate > 60; Magnesium 1.5 mg/dL (1.6-2.6)
[2022-04-28 08:04] LABS: Anion Gap 13 (12-20); Blood Urea Nitrogen 12 mg/dL (9-16); Calcium 8.9 mg/dL (8.4-10.2); Carbon Dioxide 25 mmol/L (22-29); Chloride 109 mmol/L (96-108); Creatinine Clr Calc Pharmacy 70.5; Estimated Glomerular Filt Rate > 60; Glucose Random 101 mg/dL (60-115); Potassium 3.5 mmol/L (3.3-5.1); Sodium 143 mmol/L (135-145)
[2022-04-28 08:09] LABS: Vancomycin Random 14.5 mcg/mL (15-20)
--- NOTE | 2022-04-28 08:31 | HE.PHANOTE ---
Vancomycin Dosing Leveled from 31 to 14.5. Will restart vancomycin at 1500 mg Q24H. Expected AUC 448 with a trough of 14.6. Will get another level tomorrow 04/29 @ 1000. Venus HoskinsD
[2022-04-28 08:40] LABS: Glucose, Whole Blood 115 mg/dL (60-115)
--- NOTE | 2022-04-28 09:06 | P.CDIC_ITS ---
CDI Concurrent Query Documentation Clarification: PHYSICIAN'S DOCUMENTATION REQUEST Date of Query: 04/28/22905 Patient Name: Lloyd Molina Admit Date: 04/21/22 Dear Doctor, A review of the medical record indicates additional documentation may be needed. Please review below and update the documentation accordingly. Clinical Indicators: Is there a diagnosis that correlates with the findings below: Risk Factors/Clinical Indicators/Treatments POA/RESOLVED/TREAT/RULE OUT Per event note on 04/21: patient was positive blood cultures 1 out of 2 bottles positive for Gram-positive cocci in chains Per infectious disease consult on 04/22: Sepsis: ?Status:?Acute this is likely abdominal source Plan Continue Ceftriaxone and Vancomycin Per provider progress note on 04/27: Enterococcus/MRSA/ Enterobacter Likely from skin infection with nonhealing stump wound, dehiscence Other indicators: -(+) leukocytosis -(+) BC 04/21 1/2 sets -tachycardia -lactic acid on 04/21: 4.1 Recognized standard criteria for this condition and other infectious definitions includes: Sepsis Systemic manifestations of infection, with 2 or more SIRS criteria which include: * Fever > 100.4?F or hypothermia < 96.8?F * Leukocytosis ? WBC > 12,000 or leukopenia, WBC < 4,000, or > 10% bands * Tachycardia- > 90 beats/minute * Tachypnea- RR > 20 breaths/minute or PaCO2 < 32mmHg Source: Merck Manual 2013 Documentation should include the known or suspected organism, and the underlying infection, such as UTI or pneumonia Severe Sepsis Sepsis with associated acute organ dysfunction, such as renal or respiratory failure Documentation should indicate the association between the sepsis and the organ dysfunction Septic Shock Severe sepsis with associated with circulatory failure, evidenced by hypotension and hypoperfusion Based on the above information and the recognized standard for sepsis, could you please clarify in the Progress Notes if this diagnoses is still accurate and reflective of the patient's condition to ensure quality of the medical record. * Sepsis is/was present and is a clinical diagnosis based on (please include this additional support in the medical record) * After study (the condition) has been ruled out * Other (please specify) * Unable to determine Use of terms such as suspected, likely, concern for, or probable (associated with a specific diagnosis that is being evaluated, monitored, or treated as if it exists) are acceptable and can be coded in the inpatient setting, when documented at the time of discharge. Thank you, Hodan Mccormack MS, RN, CCRN Extension: [phone] Please use your independent medical judgment in providing your response. THIS QUERY IS PART OF THE PERMANENT MEDICAL RECORD Other Diagnosis: See note
[2022-04-28] MEDS: 0.9 % Sodium Chloride Flush 3 ML SYRINGE IVFLUSH ×3 (09:14→19:24)
[2022-04-28] MEDS: Magnesium Sulfate/H2O 2 GM/50 ML PIGGYBACK IV (09:14)
[2022-04-28] MEDS: levETIRAcetam Oral Soln 500 MG/5 ML G-TUBE ×2 (09:14→19:24)
[2022-04-28] MEDS: Metoprolol Tartrate 12.5 MG HALFTAB G-TUBE ×2 (09:14→19:24)
[2022-04-28] MEDS: Folic Acid 1 MG TABLET G-TUBE (09:15)
[2022-04-28] MEDS: amLODIPine Besylate 10 MG TABLET G-TUBE (09:15)
[2022-04-28] MEDS: Tamsulosin HCL 0.4 MG CAPSULE PO (09:15)
[2022-04-28] MEDS: Cyanocobalamin (Vitamin B-12) 1,000 MCG TABLET 1000 MCG G-TUBE (09:15)
[2022-04-28] MEDS: Thiamine HCL 100 MG TABLET G-TUBE (09:15)
[2022-04-28] MEDS: Cholecalciferol (Vitamin D3) 25 MCG TABLET 50 MCG G-TUBE (09:15)
[2022-04-28] MEDS: lisinopriL 5 MG TABLET G-TUBE (09:15)
--- NOTE | 2022-04-28 09:21 | PM.CNGS ---
History of Present Illness Consult details Consult date: 04/28/22 Narrative: 66-year-old male referred to me because of it and dehiscence of his AKA incision. He had AKA with Dr. Valdovinos last 04/13/2022. In the interim, he also had a PEG tube placed. He has had dark stools as well suggestive of GI bleed. He was supposed to have endoscopy workup yesterday but this was canceled because of an abnormal EKG. The patient is bed-bound and is not communicative. He has cardiomyopathy as well. He has no family and his health care proxy is a friend of his. Review of Systems Constitutional: Constitutional: Denies chills and Denies fever(s) Gastrointestinal: Comments: Has dark stools PMFSH Past Medical History Medical History (Updated 04/28/22 @ 09:21 by Portillo Aburto MD) Alcohol abuse Blood per rectum Cardiomyopathy Cellulitis Dementia DVT (deep venous thrombosis) DVT of deep femoral vein GERD (gastroesophageal reflux disease) Hepatitis Hepatitis C antibody positive in blood Hypertension PAD (peripheral artery disease) Seizure UTI (urinary tract infection) Wound dehiscence Family History Family History Father No problems noted. Mother No problems noted. Brother Cancer Sister No problems noted. Family history: reviewed and not pertinent Surgical History Surgical History (Updated 04/24/22 @ 12:27 by Tori Machado RN) History of esophagogastroduodenoscopy (EGD) Hx of AKA (above knee amputation) S/P percutaneous endoscopic gastrostomy (PEG) tube placement Social History Social History Household Members: Unknown / Unable to assess Housing: Unknown / Unable to assess Unable to assess alcohol history related to: Unable to respond Alcohol intake: current Alcohol intake frequency: other Alcohol type: beer Patient Tobacco Use Status: Former Tobacco user Cigarettes Per Day: 7 Substance Use Type: Unknown Advance Directives Date on File: 10/11/20 service: No Current occupational status: unemployed and disabled Meds Allergies Allergy/AdvReac Type Severity Reaction Status Date / Time No Known Allergies Allergy Verified 04/07/22 13:53 [No Known Allergies*] Active Medications: Current Medications Acetaminophen (Acetaminophen 325 Mg Tablet) 650 mg PO Q6H PRN PRN Reason: Pain, Mild (Pain Scale 1-3) Last Admin: 04/27/22 12:44 Dose: 650 mg Amlodipine Besylate (Amlodipine Besylate 10 Mg Tablet) 10 mg G-TUBE DAILY [facility]; Protocol Last Admin: 04/28/22 09:15 Dose: 10 mg Atorvastatin Calcium (Atorvastatin Calcium 40 Mg Tablet) 40 mg G-TUBE BEDTIME [facility] Last Admin: 04/27/22 22:51 Dose: 40 mg Cyanocobalamin (Cyanocobalamin (Vitamin B-12) 1,000 Mcg Tablet) 1,000 mcg G-TUBE DAILY [facility] Last Admin: 04/28/22 09:15 Dose: 1,000 mcg Dextrose (Dextrose 50 % 25 Gm/50 Ml Syringe) 25 gm IVPUSH Q15M PRN; Protocol PRN Reason: per Hypoglycemia Standing Ord. Last Admin: 04/22/22 06:03 Dose: 25 gm Folic Acid (Folic Acid 1 Mg Tablet) 1 mg G-TUBE DAILY [facility] Last Admin: 04/28/22 09:15 Dose: 1 mg Glucose (Glucose Gel 15 Gm Gel..Gram.) 15 gm PO Q15M PRN; Protocol PRN Reason: per Hypoglycemia Standing Ord. Ceftriaxone Sodium 1 gm/ (Sodium Chloride) 50 mls @ 100 mls/hr IV Q24H [facility] Last Infusion: 04/27/22 23:58 Dose: Infused Vancomycin HCl 1,500 mg/ (Sodium Chloride) 500 mls @ 333.333 mls/hr IV Q24H [facility] Magnesium Sulfate (Magnesium Sulfate/H2o) 2 gm in 50 mls @ 25 mls/hr IV ONCE ONE Stop: 04/28/22 10:39 Last Admin: 04/28/22 09:14 Dose: 25 mls/hr Insulin Human Lispro (Insulin Lispro 100 Unit/Ml 3 Ml Vial) 0 unit SUBCUT Q6H [facility]; Protocol Last Admin: 04/28/22 08:14 Dose: Not Given Levetiracetam (Levetiracetam Oral Soln 500 Mg/5 Ml) 500 mg G-TUBE BID [facility] Last Admin: 04/28/22 09:14 Dose: 500 mg Lisinopril (Lisinopril 5 Mg Tablet) 5 mg G-TUBE DAILY [facility]; Protocol Last Admin: 04/28/22 09:15 Dose: 5 mg Melatonin (Melatonin 3 Mg Tablet) 6 mg PO BEDTIME PRN PRN Reason: Insomnia Last Admin: 04/25/22 19:48 Dose: 6 mg Metoprolol Tartrate (Metoprolol Tartrate 12.5 Mg Halftab) 12.5 mg G-TUBE BID [facility]; Protocol Last Admin: 04/28/22 09:14 Dose: 12.5 mg Omeprazole (Omeprazole 20 Mg/10 Ml Susp.Recon) 20 mg G-TUBE DAILY@0630 [facility] Last Admin: 04/28/22 06:23 Dose: 20 mg Ondansetron HCl (Ondansetron Hcl 4 Mg/2 Ml Vial) 4 mg IVPUSH Q8H PRN PRN Reason: Nausea and Vomiting Pharmacy Consult (Consult Rx Perform Med Rec) 1 each MISCELLANE ONCE PRN PRN Reason: Consult order Pharmacy Consult (Consult Rx Vancomycin Dosing) 1 each MISCELLANE DAILY PRN PRN Reason: Consult order Sodium Chloride (0.9 % Sodium Chloride Flush 3 Ml Syringe) 3 ml IVFLUSH QSHIFT [facility] Last Admin: 04/28/22 09:14 Dose: 3 ml Tamsulosin HCl (Tamsulosin Hcl 0.4 Mg Capsule) 0.4 mg PO DAILY [facility] Last Admin: 04/28/22 09:15 Dose: 0.4 mg Thiamine HCl (Thiamine Hcl 100 Mg Tablet) 100 mg G-TUBE DAILY [facility] Last Admin: 04/28/22 09:15 Dose: 100 mg Vitamin D (Cholecalciferol (Vitamin D3) 25 Mcg Tablet) 50 mcg G-TUBE DAILY [facility] Last Admin: 04/28/22 09:15 Dose: 50 mcg Home Medications Medication Instructions Recorded Confirmed Last Taken Type tamsulosin 0.4 mg capsule 0.4 mg PO DAILY 04/01/20 04/21/22 Unknown History apixaban 5 mg tablet (Eliquis) 5 mg PO BID 04/21/22 04/21/22 Unknown History gabapentin 600 mg tablet 600 mg feeding tube BID 04/21/22 04/21/22 Unknown History levetiracetam 500 mg tablet 500 mg PO BID 04/21/22 04/21/22 Unknown History olanzapine 20 mg tablet 20 mg PO BEDTIME 04/21/22 04/21/22 Unknown History oxycodone 5 mg tablet 5 mg feeding tube Q6H PRN Pain 04/21/22 04/21/22 Unknown History phenytoin 50 mg chewable tablet 50 mg G-tube BID 04/21/22 04/21/22 Unknown History (Dilantin Infatabs) sertraline 25 mg tablet 25 mg PO DAILY 04/21/22 04/21/22 Unknown History umeclidinium 62.5 mcg/actuation 1 inh inhalation DAILY 04/21/22 04/21/22 Unknown History blister powder for inhalation (Incruse Ellipta) Physical Exam Vital Signs: Vital Signs: Last Vital Signs Temp 97.6 F 04/28/22 07:23 Pulse 88 04/28/22 07:23 Resp 16 04/28/22 07:23 BP 170/76 H 04/28/22 07:23 Pulse Ox 97 04/28/22 07:23 O2 Del Method 04/28/22 07:23 O2 Flow Rate 2.5 04/21/22 06:46 BMI result Body Mass Index 22.4 Const: Other: Not verbally communicative General: comfortable and no acute distress Resp: Effort & Inspection: normal respiratory effort Cardio: Rate: regular rate GI: Other: Peg tube in place Palpation (GI): Soft to palpation, not firm and nontender Extrem: Other: AKA on the left leg, 2 areas of skin dehiscence, and nonviable rim of in and some subcutaneous tissue on both areas, each about 2.5 cm x 4 cm in dimension x2 areas Results Labs Result diagrams: 04/28/22 07:19 04/29/22 06:55 Labs: Abnormal lab results 04/27/22 04/27/22 04/28/22 Range/Units 10:56 18:44 07:19 WBC (4.8-10.8) X10*3/uL RBC (4.60-5.80) X10*6/uL Hgb 7.8 L (14.0-18.0) g/dl Hct 23.7 L (42.0-52.0) % Plt Count (160-400) X10*3/uL MPV (9.4-12.4) fL Immature Gran % (Auto) (0.0-0.4) % Lymph % (Auto) (20-40) % Abs Immat Gran (auto) (0.00-0.03) X10*3/uL Absolute Neuts (auto) (2.0-8.3) x10*3/uL Chloride (96-108) mmol/L Magnesium (1.6-2.6) mg/dL Random Vancomycin 25.7 H* 14.5 L (15-20) mcg/mL 04/28/22 04/28/22 04/28/22 Range/Units 07:19 07:19 07:19 WBC 13.1 H (4.8-10.8) X10*3/uL RBC 2.66 L (4.60-5.80) X10*6/uL Hgb 8.2 L (14.0-18.0) g/dl Hct 25.3 L (42.0-52.0) % Plt Count 441 H (160-400) X10*3/uL MPV 8.8 L (9.4-12.4) fL Immature Gran % (Auto) 0.5 H (0.0-0.4) % Lymph % (Auto) 18.8 L (20-40) % Abs Immat Gran (auto) 0.06 H (0.00-0.03) X10*3/uL Absolute Neuts (auto) 9.1 H (2.0-8.3) x10*3/uL Chloride 109 H (96-108) mmol/L Magnesium 1.5 L (1.6-2.6) mg/dL Random Vancomycin (15-20) mcg/mL Short CBC 04/27/22 04/28/22 Range/Units 18:44 07:19 WBC 13.1 H (4.8-10.8) X10*3/uL Hgb 7.8 L 8.2 L (14.0-18.0) g/dl Hct 23.7 L 25.3 L (42.0-52.0) % Plt Count 441 H (160-400) X10*3/uL BMP 04/27/22 04/28/22 04/28/22 21:15 07:19 07:19 Sodium 143 Potassium 3.5 Chloride 109 H Carbon Dioxide 25 BUN 12 D Creatinine 1.01 0.98 1.02 Calcium 8.9 D Urine 04/22/22 Range/Units 00:14 Urine Color Yellow Urine Appearance Clear Urine pH 5.5 (5.0-9.0) Ur Specific [place] 1.015 (1.005-1.025) Urine Protein Trace (Neg-Trace) mg/dL Urine Glucose (UA) Negative (Negative) mg/dL All other labs normal. Assessment and Plan (1) Wound dehiscence: Status: Acute He had a recent AKA with Dr. Valdovinos. Two areas of the incision has had a skin dehiscence. I removed all the skin smita. In these 2 areas is note of nonviable rim of in subcutaneous tissue. I therefore debrided this sharply using scissors. I debrided 2 areas, each about 2.5 cm x 4 cm mention, on the medial and lateral aspect of the incision. I then applied wet to dry dressings. I covered this with gauze tape He would need good wound care at this time. We will allow the wound dehiscence to heal by secondary intention. I will follow along while he is in the hospital. Time Spent With Patient Time: Total time managing care of this patient today ____ minutes. Procedures Date of Service Date of Service: 04/28/22
[2022-04-28 11:20] LABS: Glucose, Whole Blood 108 mg/dL (60-115)
[2022-04-28 11:30] VITALS: BP 164/73; PULSE 84; RESP 18; TEMP 36.3; O2SAT 97
--- NOTE | 2022-04-28 12:03 | P.PNIM_ITS ---
Subjective Subjective Date of Service: 04/28/22 Interval History: Follow-up GI bleed Limited communication Denies pain Review of Systems Review of Systems: Yes all other systems are reviewed and are negative Physical Exam Vital Signs: Vital Signs: Last Vital Signs Temp 97.4 F 04/28/22 11:30 Pulse 84 04/28/22 11:30 Resp 18 04/28/22 11:30 BP 164/73 H 04/28/22 11:30 Pulse Ox 97 04/28/22 11:30 O2 Del Method 04/28/22 11:30 O2 Flow Rate 2.5 04/21/22 06:46 BMI result Body Mass Index 22.4 Appearing in no acute distress lung sounds are clear to auscultation heart regular rate rhythm, clear S1, S2 positive bowel sounds, abdomen is soft, nontender neuro patient is alert x3, no focal deficits Objective Data Active Medications Acetaminophen (Acetaminophen 325 Mg Tablet) 650 mg PO Q6H PRN PRN Reason: Pain, Mild (Pain Scale 1-3) Last Admin: 04/27/22 12:44 Dose: 650 mg Documented By: MOSES Amlodipine Besylate (Amlodipine Besylate 10 Mg Tablet) 10 mg G-TUBE DAILY [facility]; Protocol Last Admin: 04/28/22 09:15 Dose: 10 mg Documented By: CARA Atorvastatin Calcium (Atorvastatin Calcium 40 Mg Tablet) 40 mg G-TUBE BEDTIME [facility] Last Admin: 04/27/22 22:51 Dose: 40 mg Documented By: MICHELLE Cyanocobalamin (Cyanocobalamin (Vitamin B-12) 1,000 Mcg Tablet) 1,000 mcg G- TUBE DAILY [facility] Last Admin: 04/28/22 09:15 Dose: 1,000 mcg Documented By: CARA Dextrose (Dextrose 50 % 25 Gm/50 Ml Syringe) 25 gm IVPUSH Q15M PRN; Protocol PRN Reason: per Hypoglycemia Standing Ord. Last Admin: 04/22/22 06:03 Dose: 25 gm Documented By: MICHELLE Folic Acid (Folic Acid 1 Mg Tablet) 1 mg G-TUBE DAILY [facility] Last Admin: 04/28/22 09:15 Dose: 1 mg Documented By: CARA Glucose (Glucose Gel 15 Gm Gel..Gram.) 15 gm PO Q15M PRN; Protocol PRN Reason: per Hypoglycemia Standing Ord. Ceftriaxone Sodium 1 gm/ (Sodium Chloride) 50 mls @ 100 mls/hr IV Q24H [facility] Last Infusion: 04/27/22 23:58 Dose: 0 mls/hr Documented By: MICHELLE Vancomycin HCl 1,500 mg/ (Sodium Chloride) 500 mls @ 333.333 mls/hr IV Q24H [facility] Insulin Human Lispro (Insulin Lispro 100 Unit/Ml 3 Ml Vial) 0 unit SUBCUT Q6H [facility]; Protocol Last Admin: 04/28/22 08:14 Dose: Not Given Documented By: CARA Non-Admin Reason: No Insulin Coverage Levetiracetam (Levetiracetam Oral Soln 500 Mg/5 Ml) 500 mg G-TUBE BID [facility] Last Admin: 04/28/22 09:14 Dose: 500 mg Documented By: CARA Lisinopril (Lisinopril 5 Mg Tablet) 5 mg G-TUBE DAILY [facility]; Protocol Last Admin: 04/28/22 09:15 Dose: 5 mg Documented By: CARA Melatonin (Melatonin 3 Mg Tablet) 6 mg PO BEDTIME PRN PRN Reason: Insomnia Last Admin: 04/25/22 19:48 Dose: 6 mg Documented By: DELFINO Metoprolol Tartrate (Metoprolol Tartrate 12.5 Mg Halftab) 12.5 mg G-TUBE BID [facility]; Protocol Last Admin: 04/28/22 09:14 Dose: 12.5 mg Documented By: CARA Omeprazole (Omeprazole 20 Mg/10 Ml Susp.Recon) 20 mg G-TUBE DAILY@0630 [facility] Last Admin: 04/28/22 06:23 Dose: 20 mg Documented By: MICHELLE Ondansetron HCl (Ondansetron Hcl 4 Mg/2 Ml Vial) 4 mg IVPUSH Q8H PRN PRN Reason: Nausea and Vomiting Pharmacy Consult (Consult Rx Perform Med Rec) 1 each MISCELLANE ONCE PRN PRN Reason: Consult order Pharmacy Consult (Consult Rx Vancomycin Dosing) 1 each MISCELLANE DAILY PRN PRN Reason: Consult order Sodium Chloride (0.9 % Sodium Chloride Flush 3 Ml Syringe) 3 ml IVFLUSH QSHIFT [facility] Last Admin: 04/28/22 09:14 Dose: 3 ml Documented By: CARA Tamsulosin HCl (Tamsulosin Hcl 0.4 Mg Capsule) 0.4 mg PO DAILY [facility] Last Admin: 04/28/22 09:15 Dose: 0.4 mg Documented By: CARA Thiamine HCl (Thiamine Hcl 100 Mg Tablet) 100 mg G-TUBE DAILY [facility] Last Admin: 04/28/22 09:15 Dose: 100 mg Documented By: CARA Vitamin D (Cholecalciferol (Vitamin D3) 25 Mcg Tablet) 50 mcg G-TUBE DAILY [facility] Last Admin: 04/28/22 09:15 Dose: 50 mcg Documented By: CARA Labs CBC & Chem 7: 04/28/22 07:19 04/28/22 07:19 Labs: Laboratory Results - last 24 hr 04/27/22 04/27/22 04/27/22 12:21 13:54 14:52 MCV MCH MCHC RDW Plt Count MPV Immature Gran % (Auto) Neut % (Auto) Lymph % (Auto) Gaines % (Auto) Eos % (Auto) Baso % (Auto) Lymph # (Auto) Gaines # (Auto) Eos # (Auto) Baso # (Auto) Abs Immat Gran (auto) Absolute Neuts (auto) Absolute Nucleated RBC Nucleated RBC % (auto) Anion Gap Estim Creat Clear Calc Estimated GFR POC Glucose 101 87 Random Glucose Calcium Magnesium Troponin I High Sens 20.5 D Random Vancomycin 04/27/22 04/27/22 04/27/22 19:02 21:15 21:15 MCV MCH MCHC RDW Plt Count MPV Immature Gran % (Auto) Neut % (Auto) Lymph % (Auto) Gaines % (Auto) Eos % (Auto) Baso % (Auto) Lymph # (Auto) Gaines # (Auto) Eos # (Auto) Baso # (Auto) Abs Immat Gran (auto) Absolute Neuts (auto) Absolute Nucleated RBC Nucleated RBC % (auto) Anion Gap Estim Creat Clear Calc 71.2 Estimated GFR > 60 POC Glucose 90 Random Glucose Calcium Magnesium Troponin I High Sens Random Vancomycin 17.6 04/28/22 04/28/22 04/28/22 02:29 06:57 07:19 MCV MCH MCHC RDW Plt Count MPV Immature Gran % (Auto) Neut % (Auto) Lymph % (Auto) Gaines % (Auto) Eos % (Auto) Baso % (Auto) Lymph # (Auto) Gaines # (Auto) Eos # (Auto) Baso # (Auto) Abs Immat Gran (auto) Absolute Neuts (auto) Absolute Nucleated RBC Nucleated RBC % (auto) Anion Gap Estim Creat Clear Calc Estimated GFR POC Glucose 98 115 Random Glucose Calcium Magnesium Troponin I High Sens Random Vancomycin 14.5 L 04/28/22 04/28/22 04/28/22 07:19 07:19 07:19 MCV 95.1 MCH 30.8 MCHC 32.4 RDW 15.7 Plt Count 441 H MPV 8.8 L Immature Gran % (Auto) 0.5 H Neut % (Auto) 69.3 Lymph % (Auto) 18.8 L Gaines % (Auto) 8.8 Eos % (Auto) 2.1 Baso % (Auto) 0.5 Lymph # (Auto) 2.5 Gaines # (Auto) 1.2 Eos # (Auto) 0.3 Baso # (Auto) 0.1 Abs Immat Gran (auto) 0.06 H Absolute Neuts (auto) 9.1 H Absolute Nucleated RBC 0.000 Nucleated RBC % (auto) 0.0 Anion Gap 13 Estim Creat Clear Calc 73.4 70.5 Estimated GFR > 60 > 60 POC Glucose Random Glucose 101 Calcium 8.9 D Magnesium 1.5 L Troponin I High Sens Random Vancomycin 04/28/22 11:04 MCV MCH MCHC RDW Plt Count MPV Immature Gran % (Auto) Neut % (Auto) Lymph % (Auto) Gaines % (Auto) Eos % (Auto) Baso % (Auto) Lymph # (Auto) Gaines # (Auto) Eos # (Auto) Baso # (Auto) Abs Immat Gran (auto) Absolute Neuts (auto) Absolute Nucleated RBC Nucleated RBC % (auto) Anion Gap Estim Creat Clear Calc Estimated GFR POC Glucose 108 Random Glucose Calcium Magnesium Troponin I High Sens Random Vancomycin Assessment and Plan (1) Severe anemia: Status: Acute (2) Acute blood loss anemia: Status: Resolved Plan 66-year-old male with 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 Acute upper GI bleed with acute blood loss anemia. Stable HH underwent upper endoscopy 04/22 and diagnosed to have gastritis, esophagitis and duodenal ulcer with visible vessel,status post 3 units of FFP and 3 units of packed RBC hematocrit improved no recurrent bleed Eliquis discontinued Continue Prilosec indefinitely, negative H pylori, gastric biopsy showed mild chronic inactive gastritis, intestinal metaplasia and dysplasia Plan for colonoscopy o/p Enterococcus/MRSA/ Enterobacter Likely from skin infection with nonhealing stump wound, dehiscence echo pending ID recommend 4 weeks of IV antibiotic after 1st negative blood cultures, IV vanco and ceftriaxone Seen and evaluated by general surgery, smita removed from left stump wound, sharp debridement, wet to dry dressing, covered with gauze and tape Acute lactic acidosis Resolved with IV hydration Acute metabolic encephalopathy Resolved HTN continue metoprolol, lisinopril, amlodipine Seizure disorder Continue by Makayla via G-tube seizure precautions History of DVT patient has 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 Hyperglycemia No h/o DM,?hemoglobin A1c 4.8, DC Accu-Cheks and sliding scale insulin.? DVT Prohpylaxis compression boots Attending Dr. Kapadia DNR/DNI Patient need continued inpatient stay for acute blood loss anemia and on iv abx for bacteremia, need colonoscopy on Wednesday Time Spent With Patient Time: Total time managing care of this patient today ____ minutes. Quality Stroke Does the patient have a stroke diagnosis?: No VTE Prior VTE?: No VTE Risk Level:: Medical - moderate - high VTE Device Contraindication: Treatment Not Indicated VTE Drug Contraindication: Treatment Not Indicated
[2022-04-28] MEDS: vancomycin HCL 1,500 MG in 0.9 % Sodium Chloride 500 ML 333.33 MG IV (12:53)
[2022-04-28 15:47] VITALS: BP 123/65; PULSE 88; RESP 16; TEMP 36.3; O2SAT 97
[2022-04-28 19:10] VITALS: BP 158/66; PULSE 104; RESP 17; TEMP 36.9; O2SAT 96
[2022-04-28 19:22] LABS: Glucose, Whole Blood 99 mg/dL (60-115)
[2022-04-28] MEDS: Atorvastatin Calcium 40 MG TABLET G-TUBE (19:24)
[2022-04-28] MEDS: cefTRIAXone sodium 1 GM in 0.9 % Sodium Chloride 50 ML IV (22:01)
[2022-04-28 23:27] VITALS: BP 154/75; PULSE 99; RESP 18; TEMP 36.9; O2SAT 97
[2022-04-29 03:05] VITALS: BP 135/63; PULSE 88; RESP 16; TEMP 36.8; O2SAT 97
[2022-04-29 03:16] LABS: Glucose, Whole Blood 133 mg/dL (60-115)
[2022-04-29 07:35] VITALS: BP 153/71; PULSE 86; RESP 16; TEMP 36; O2SAT 93
[2022-04-29 07:37] LABS: Creatinine Clr Calc Pharmacy 79.1; Estimated Glomerular Filt Rate > 60
[2022-04-29 08:29] LABS: Glucose, Whole Blood 126 mg/dL (60-115)
--- NOTE | 2022-04-29 08:34 | P.PNIM_ITS ---
Subjective Subjective Date of Service: 04/29/22 Interval History: Follow-up GI bleed Limited communication Denies pain Review of Systems Review of Systems: Yes all other systems are reviewed and are negative Physical Exam Vital Signs: Vital Signs: Last Vital Signs Temp 96.8 F 04/29/22 07:35 Pulse 86 04/29/22 07:35 Resp 16 04/29/22 07:35 BP 153/71 H 04/29/22 07:35 Pulse Ox 93 04/29/22 07:35 O2 Del Method 04/29/22 07:35 O2 Flow Rate 2.5 04/21/22 06:46 BMI result Body Mass Index 22.4 Appearing in no acute distress lung sounds are clear to auscultation heart regular rate rhythm, clear S1, S2 positive bowel sounds, abdomen is soft, nontender neuro patient is alert x3, no focal deficits s/p debrided AKA, noted granulating tissue Objective Data Active Medications Acetaminophen (Acetaminophen 325 Mg Tablet) 650 mg PO Q6H PRN PRN Reason: Pain, Mild (Pain Scale 1-3) Last Admin: 04/27/22 12:44 Dose: 650 mg Documented By: MOSES Amlodipine Besylate (Amlodipine Besylate 10 Mg Tablet) 10 mg G-TUBE DAILY [facility]; Protocol Last Admin: 04/28/22 09:15 Dose: 10 mg Documented By: CARA Atorvastatin Calcium (Atorvastatin Calcium 40 Mg Tablet) 40 mg G-TUBE BEDTIME [facility] Last Admin: 04/28/22 19:24 Dose: 40 mg Documented By: VENTURA Cyanocobalamin (Cyanocobalamin (Vitamin B-12) 1,000 Mcg Tablet) 1,000 mcg G- TUBE DAILY [facility] Last Admin: 04/28/22 09:15 Dose: 1,000 mcg Documented By: CARA Dextrose (Dextrose 50 % 25 Gm/50 Ml Syringe) 25 gm IVPUSH Q15M PRN; Protocol PRN Reason: per Hypoglycemia Standing Ord. Last Admin: 04/22/22 06:03 Dose: 25 gm Documented By: MICHELLE Folic Acid (Folic Acid 1 Mg Tablet) 1 mg G-TUBE DAILY [facility] Last Admin: 04/28/22 09:15 Dose: 1 mg Documented By: CARA Glucose (Glucose Gel 15 Gm Gel..Gram.) 15 gm PO Q15M PRN; Protocol PRN Reason: per Hypoglycemia Standing Ord. Ceftriaxone Sodium 1 gm/ (Sodium Chloride) 50 mls @ 100 mls/hr IV Q24H [facility] Last Infusion: 04/28/22 22:43 Dose: 0 mls/hr Documented By: VENTURA Vancomycin HCl 1,500 mg/ (Sodium Chloride) 500 mls @ 333.333 mls/hr IV Q24H [facility] Last Infusion: 04/28/22 14:28 Dose: 0 mls/hr Documented By: CARA Insulin Human Lispro (Insulin Lispro 100 Unit/Ml 3 Ml Vial) 0 unit SUBCUT Q6H [facility]; Protocol Last Admin: 04/29/22 03:12 Dose: Not Given Documented By: VENTURA Non-Admin Reason: No Insulin Coverage Levetiracetam (Levetiracetam Oral Soln 500 Mg/5 Ml) 500 mg G-TUBE BID [facility] Last Admin: 04/28/22 19:24 Dose: 500 mg Documented By: VENTURA Lisinopril (Lisinopril 5 Mg Tablet) 5 mg G-TUBE DAILY [facility]; Protocol Last Admin: 04/28/22 09:15 Dose: 5 mg Documented By: CARA Melatonin (Melatonin 3 Mg Tablet) 6 mg PO BEDTIME PRN PRN Reason: Insomnia Last Admin: 04/25/22 19:48 Dose: 6 mg Documented By: DELFINO Metoprolol Tartrate (Metoprolol Tartrate 12.5 Mg Halftab) 12.5 mg G-TUBE BID [facility]; Protocol Last Admin: 04/28/22 19:24 Dose: 12.5 mg Documented By: VENTURA Omeprazole (Omeprazole 20 Mg/10 Ml Susp.Recon) 20 mg G-TUBE DAILY@0630 [facility] Last Admin: 04/29/22 05:30 Dose: 20 mg Documented By: VENTURA Ondansetron HCl (Ondansetron Hcl 4 Mg/2 Ml Vial) 4 mg IVPUSH Q8H PRN PRN Reason: Nausea and Vomiting Pharmacy Consult (Consult Rx Perform Med Rec) 1 each MISCELLANE ONCE PRN PRN Reason: Consult order Pharmacy Consult (Consult Rx Vancomycin Dosing) 1 each MISCELLANE DAILY PRN PRN Reason: Consult order Sodium Chloride (0.9 % Sodium Chloride Flush 3 Ml Syringe) 3 ml IVFLUSH QSHIFT [facility] Last Admin: 04/28/22 19:24 Dose: 3 ml Documented By: VENTURA Tamsulosin HCl (Tamsulosin Hcl 0.4 Mg Capsule) 0.4 mg PO DAILY [facility] Last Admin: 04/28/22 09:15 Dose: 0.4 mg Documented By: CARA Thiamine HCl (Thiamine Hcl 100 Mg Tablet) 100 mg G-TUBE DAILY [facility] Last Admin: 04/28/22 09:15 Dose: 100 mg Documented By: CARA Vitamin D (Cholecalciferol (Vitamin D3) 25 Mcg Tablet) 50 mcg G-TUBE DAILY [facility] Last Admin: 04/28/22 09:15 Dose: 50 mcg Documented By: CARA Labs CBC & Chem 7: 04/28/22 07:19 04/29/22 06:55 Labs: Laboratory Results - last 24 hr 04/28/22 04/28/22 04/28/22 06:57 11:04 19:19 Estim Creat Clear Calc Estimated GFR POC Glucose 115 108 99 04/29/22 04/29/22 04/29/22 03:10 06:55 08:27 Estim Creat Clear Calc 79.1 Estimated GFR > 60 POC Glucose 133 H 126 H Assessment and Plan (1) Severe anemia: Status: Acute (2) Acute blood loss anemia: Status: Resolved Plan 66-year-old male with 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 Wound dehiscence Debrided on 04/28/2022 general surgery Elizabeth removed, covered with wet to dry dressing, gauze and tape Acute upper GI bleed with acute blood loss anemia. Stable HH underwent upper endoscopy 04/22 and diagnosed to have gastritis, esophagitis and duodenal ulcer with visible vessel,status post 3 units of FFP and 3 units of packed RBC hematocrit improved no recurrent bleed Eliquis discontinued Continue Prilosec indefinitely, negative H pylori, gastric biopsy showed mild chronic inactive gastritis, intestinal metaplasia and dysplasia Plan for colonoscopy o/p Enterococcus/MRSA/ Enterobacter Likely from skin infection with nonhealing stump wound, dehiscence echo Ef 40-45% RMWA, no vegetation ID recommend 4 weeks of IV antibiotic after 1st negative blood cultures, IV vanco and ceftriaxone. collected 04/21/22 neg after 5 days Seen and evaluated by general surgery, elizabeth removed from left stump wound, sharp debridement, wet to dry dressing, covered with gauze and tape Acute lactic acidosis Resolved with IV hydration Acute metabolic encephalopathy Resolved HTN continue metoprolol, lisinopril, amlodipine Seizure disorder Continue by Makayla via G-tube seizure precautions History of DVT patient has 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 DVT Prohpylaxis compression boots Attending Dr. Kapadia DNR/DNI Disposition, back to facility when medically clear Patient need continued inpatient stay for acute blood loss anemia and on iv abx for bacteremia Time Spent With Patient Time: Total time managing care of this patient today ____ minutes. Quality Stroke Does the patient have a stroke diagnosis?: No VTE Prior VTE?: No VTE Risk Level:: Medical - moderate - high VTE Device Contraindication: Treatment Not Indicated VTE Drug Contraindication: Treatment Not Indicated
--- NOTE | 2022-04-29 09:40 | P.PNGS_ITS ---
Subjective Subjective Date of Service: 04/29/22 Interval history: Mental status the same No events reported Physical Exam Vital Signs: Vital Signs: Last Vital Signs Temp 96.8 F 04/29/22 07:35 Pulse 86 04/29/22 07:35 Resp 16 04/29/22 07:35 BP 153/71 H 04/29/22 07:35 Pulse Ox 93 04/29/22 07:35 O2 Del Method 04/29/22 07:35 O2 Flow Rate 2.5 04/21/22 06:46 BMI result Body Mass Index 22.4 Const: Other: Awake but not communicative General: no acute distress Resp: Effort & Inspection: normal respiratory effort GI: Other: Peg tube in place Palpation (GI): Soft to palpation and not firm Extrem: Other: AKA on the left with 2 open areas along incision, granulating well, no pus, no cellulitis Objective Data Active Medications Acetaminophen (Acetaminophen 325 Mg Tablet) 650 mg PO Q6H PRN PRN Reason: Pain, Mild (Pain Scale 1-3) Last Admin: 04/27/22 12:44 Dose: 650 mg Documented By: MOSES Amlodipine Besylate (Amlodipine Besylate 10 Mg Tablet) 10 mg G-TUBE DAILY [facility]; Protocol Last Admin: 04/28/22 09:15 Dose: 10 mg Documented By: CARA Atorvastatin Calcium (Atorvastatin Calcium 40 Mg Tablet) 40 mg G-TUBE BEDTIME [facility] Last Admin: 04/28/22 19:24 Dose: 40 mg Documented By: VENTURA Cyanocobalamin (Cyanocobalamin (Vitamin B-12) 1,000 Mcg Tablet) 1,000 mcg G- TUBE DAILY [facility] Last Admin: 04/28/22 09:15 Dose: 1,000 mcg Documented By: CARA Dextrose (Dextrose 50 % 25 Gm/50 Ml Syringe) 25 gm IVPUSH Q15M PRN; Protocol PRN Reason: per Hypoglycemia Standing Ord. Last Admin: 04/22/22 06:03 Dose: 25 gm Documented By: MICHELLE Folic Acid (Folic Acid 1 Mg Tablet) 1 mg G-TUBE DAILY [facility] Last Admin: 04/28/22 09:15 Dose: 1 mg Documented By: CARA Glucose (Glucose Gel 15 Gm Gel..Gram.) 15 gm PO Q15M PRN; Protocol PRN Reason: per Hypoglycemia Standing Ord. Ceftriaxone Sodium 1 gm/ (Sodium Chloride) 50 mls @ 100 mls/hr IV Q24H [facility] Last Infusion: 04/28/22 22:43 Dose: 0 mls/hr Documented By: VENTURA Vancomycin HCl 1,500 mg/ (Sodium Chloride) 500 mls @ 333.333 mls/hr IV Q24H [facility] Last Infusion: 04/28/22 14:28 Dose: 0 mls/hr Documented By: CARA Insulin Human Lispro (Insulin Lispro 100 Unit/Ml 3 Ml Vial) 0 unit SUBCUT Q6H [facility]; Protocol Last Admin: 04/29/22 08:56 Dose: Not Given Documented By: MOSES Non-Admin Reason: No Insulin Coverage Levetiracetam (Levetiracetam Oral Soln 500 Mg/5 Ml) 500 mg G-TUBE BID [facility] Last Admin: 04/28/22 19:24 Dose: 500 mg Documented By: VENTURA Lisinopril (Lisinopril 5 Mg Tablet) 5 mg G-TUBE DAILY [facility]; Protocol Last Admin: 04/28/22 09:15 Dose: 5 mg Documented By: CARA Melatonin (Melatonin 3 Mg Tablet) 6 mg PO BEDTIME PRN PRN Reason: Insomnia Last Admin: 04/25/22 19:48 Dose: 6 mg Documented By: DELFINO Metoprolol Tartrate (Metoprolol Tartrate 12.5 Mg Halftab) 12.5 mg G-TUBE BID [facility]; Protocol Last Admin: 04/28/22 19:24 Dose: 12.5 mg Documented By: VENTURA Omeprazole (Omeprazole 20 Mg/10 Ml Susp.Recon) 20 mg G-TUBE DAILY@0630 [facility] Last Admin: 04/29/22 05:30 Dose: 20 mg Documented By: VENTURA Ondansetron HCl (Ondansetron Hcl 4 Mg/2 Ml Vial) 4 mg IVPUSH Q8H PRN PRN Reason: Nausea and Vomiting Pharmacy Consult (Consult Rx Perform Med Rec) 1 each MISCELLANE ONCE PRN PRN Reason: Consult order Pharmacy Consult (Consult Rx Vancomycin Dosing) 1 each MISCELLANE DAILY PRN PRN Reason: Consult order Sodium Chloride (0.9 % Sodium Chloride Flush 3 Ml Syringe) 3 ml IVFLUSH QSHIFT [facility] Last Admin: 04/28/22 19:24 Dose: 3 ml Documented By: VENTURA Tamsulosin HCl (Tamsulosin Hcl 0.4 Mg Capsule) 0.4 mg PO DAILY [facility] Last Admin: 04/28/22 09:15 Dose: 0.4 mg Documented By: CARA Thiamine HCl (Thiamine Hcl 100 Mg Tablet) 100 mg G-TUBE DAILY [facility] Last Admin: 04/28/22 09:15 Dose: 100 mg Documented By: CARA Vitamin D (Cholecalciferol (Vitamin D3) 25 Mcg Tablet) 50 mcg G-TUBE DAILY [facility] Last Admin: 04/28/22 09:15 Dose: 50 mcg Documented By: CARA Labs CBC & Chem 7: 04/28/22 07:19 04/29/22 06:55 Labs: Laboratory Results - last 24 hr 04/28/22 04/28/22 04/29/22 11:04 19:19 03:10 Estim Creat Clear Calc Estimated GFR POC Glucose 108 99 133 H 04/29/22 04/29/22 06:55 08:27 Estim Creat Clear Calc 79.1 Estimated GFR > 60 POC Glucose 126 H Procedures Date of Service Date of Service: 04/29/22 Progress Note: A&P Assessment and plan (1) Wound dehiscence: Status: Acute Assessment and Plan: Sharp excisional debridement than yesterday on 2 areas of the wound for nonviable tissue I have changes dressings - wet to dry applied Both open wounds clean, granulating well Continue daily wound care with wet to dry dressing Time Spent With Patient Time: Total time managing care of this patient today ____ minutes. Quality Stroke Does the patient have a stroke diagnosis?: No VTE Prior VTE?: No VTE Risk Level:: Medical - moderate - high VTE Device Contraindication: Treatment Not Indicated VTE Drug Contraindication: Treatment Not Indicated
--- NOTE | 2022-04-29 09:42 | MHC.CLN ---
F/U TF RESUMED PT RECEIVING JEVITY 1.0 AT MAX GOAL RATE 75ML/HR WITH 30ML PROSOURCE BID AND 120ML FREE WATER FLUSHES Q 6 HRS PROVIDES 2028TOTAL KCALS (28.6KCALS/KG), 110G PROTEIN (1.5G/KG), 2073ML TOTAL WATER FROM FORMULA AND FLUSHES (28ML/KG) ADDITIONAL PROTEIN TO PROMOTE WOUND HEALING CONTINUE TO MONITOR TOLERANCE, RESIDUALS, AND LYTES
[2022-04-29] MEDS: Cholecalciferol (Vitamin D3) 25 MCG TABLET 50 MCG G-TUBE (09:43)
[2022-04-29] MEDS: Metoprolol Tartrate 12.5 MG HALFTAB G-TUBE ×2 (09:43→21:23)
[2022-04-29] MEDS: Tamsulosin HCL 0.4 MG CAPSULE PO (09:44)
[2022-04-29] MEDS: Cyanocobalamin (Vitamin B-12) 1,000 MCG TABLET 1000 MCG G-TUBE (09:44)
[2022-04-29] MEDS: Folic Acid 1 MG TABLET G-TUBE (09:44)
[2022-04-29] MEDS: lisinopriL 5 MG TABLET G-TUBE (09:44)
[2022-04-29] MEDS: amLODIPine Besylate 10 MG TABLET G-TUBE (09:44)
[2022-04-29] MEDS: Thiamine HCL 100 MG TABLET G-TUBE (09:44)
[2022-04-29] MEDS: levETIRAcetam Oral Soln 500 MG/5 ML G-TUBE ×2 (09:44→21:23)
[2022-04-29] MEDS: 0.9 % Sodium Chloride Flush 3 ML SYRINGE IVFLUSH ×2 (09:45→15:12)
[2022-04-29 11:03] LABS: Vancomycin Random 16.1 mcg/mL (15-20)
--- NOTE | 2022-04-29 11:08 | HE.PHANOTE ---
Vancomycin Dosing Patient is therapeutic today at 16.1. Continue current regimen 1500 mg Q24H. Due to patient's fluctuating renal function, will get another trough in 24 hours to confirm patient is in steady state. Venus HoskinsD
--- NOTE | 2022-04-29 11:32 | MHC.CM.PN ---
Per ROUNDS discussion, Patient's wounds were debrided yesterday and are open and packed. Patient is not yet medically cleared for dc; returning to [facility] is the goal and CM will continue to follow.
[2022-04-29 11:33] VITALS: BP 141/66; PULSE 86; RESP 16; TEMP 36.6; O2SAT 98
[2022-04-29] MEDS: vancomycin HCL 1,500 MG in 0.9 % Sodium Chloride 500 ML 333.33 MG IV (13:12)
[2022-04-29] MEDS: LORazepam 2 MG/ML VIAL 0.25 MG IVPUSH (14:00)
[2022-04-29 15:19] LABS: Glucose, Whole Blood 91 mg/dL (60-115)
[2022-04-29 15:34] VITALS: BP 138/78; PULSE 87; RESP 16; TEMP 36.6; O2SAT 95
[2022-04-29 19:35] VITALS: BP 139/65; PULSE 95; RESP 16; TEMP 36.3; O2SAT 95
[2022-04-29 20:18] LABS: Glucose, Whole Blood 111 mg/dL (60-115)
[2022-04-29] MEDS: Atorvastatin Calcium 40 MG TABLET G-TUBE (21:23)
[2022-04-29] MEDS: cefTRIAXone sodium 1 GM in 0.9 % Sodium Chloride 50 ML IV (22:27)
[2022-04-29 23:25] VITALS: BP 141/60; PULSE 80; RESP 14; TEMP 36.2; O2SAT 98
[2022-04-30] MEDS: 0.9 % Sodium Chloride Flush 3 ML SYRINGE IVFLUSH ×4 (00:40→19:56)
[2022-04-30 02:28] LABS: Glucose, Whole Blood 126 mg/dL (60-115)
[2022-04-30 04:00] VITALS: BP 134/62; PULSE 74; RESP 16; TEMP 36.7; O2SAT 97
[2022-04-30 07:38] VITALS: BP 139/63; PULSE 82; RESP 18; TEMP 36.3; O2SAT 97
[2022-04-30 07:39] LABS: Glucose, Whole Blood 126 mg/dL (60-115)
[2022-04-30 07:46] LABS: Creatinine Clr Calc Pharmacy 84.6; Estimated Glomerular Filt Rate > 60
[2022-04-30] MEDS: Tamsulosin HCL 0.4 MG CAPSULE PO (09:13)
[2022-04-30] MEDS: levETIRAcetam Oral Soln 500 MG/5 ML G-TUBE ×2 (09:13→19:55)
[2022-04-30] MEDS: Folic Acid 1 MG TABLET G-TUBE (09:13)
[2022-04-30] MEDS: Metoprolol Tartrate 12.5 MG HALFTAB G-TUBE (09:13)
[2022-04-30] MEDS: amLODIPine Besylate 10 MG TABLET G-TUBE (09:13)
[2022-04-30] MEDS: Cyanocobalamin (Vitamin B-12) 1,000 MCG TABLET 1000 MCG G-TUBE (09:13)
[2022-04-30] MEDS: Thiamine HCL 100 MG TABLET G-TUBE (09:13)
[2022-04-30] MEDS: lisinopriL 5 MG TABLET G-TUBE (09:13)
[2022-04-30] MEDS: Cholecalciferol (Vitamin D3) 25 MCG TABLET 50 MCG G-TUBE (09:13)
[2022-04-30 10:51] LABS: Vancomycin Random 18.1 mcg/mL (15-20)
--- NOTE | 2022-04-30 11:04 | HE.PHANOTE ---
Vancomycin Dosing Level increased to 18.1. Cotninue current regimen. Since level continue to rise will get another level in 24 hours on 05/01 @ 1000. Tonya Chu, VenusD
[2022-04-30 11:21] VITALS: BP 144/71; PULSE 87; RESP 12; TEMP 37; O2SAT 99
[2022-04-30 11:29] LABS: Glucose, Whole Blood 126 mg/dL (60-115)
[2022-04-30] MEDS: vancomycin HCL 1,500 MG in 0.9 % Sodium Chloride 500 ML 333.33 MG IV (11:52)
--- NOTE | 2022-04-30 14:45 | HO.PM.IMPN ---
Subjective Subjective Date of Service: 04/30/22 Interval History: seen and examined this morning follow up for GI bleeding awake, alert, poor histororian; unable to obtain full ROS Physical Exam Vital Signs: Vital Signs: Last Vital Signs Temp 98.6 F 04/30/22 11:21 Pulse 87 04/30/22 11:21 Resp 12 04/30/22 11:21 BP 144/71 H 04/30/22 11:21 Pulse Ox 99 04/30/22 11:21 O2 Del Method 04/30/22 11:21 O2 Flow Rate 2.5 04/21/22 06:46 BMI result Body Mass Index 22.4 Const: Other: awake, alert; appears comfortable Resp: Effort & Inspection: normal respiratory effort, no respiratory distress and no use of accessory muscles Cardio: Rate: regular rate Heart sounds: S1 normal heart sound present and S2 normal heart sound present GI: Other: feeding tube present, no surrounding erythema Inspection: No distended Palpation (GI): Soft to palpation Skin: Other: s/p left AKA - wound dressed in c/d/i dressing, no staining Neuro: Other: difficult to assess, awake, alert, grossly nonfocal Objective Data Active Medications Acetaminophen (Acetaminophen 325 Mg Tablet) 650 mg PO Q6H PRN PRN Reason: Pain, Mild (Pain Scale 1-3) Last Admin: 04/27/22 12:44 Dose: 650 mg Documented By: MOSES Amlodipine Besylate (Amlodipine Besylate 10 Mg Tablet) 10 mg G-TUBE DAILY [facility]; Protocol Last Admin: 04/30/22 09:13 Dose: 10 mg Documented By: MICHAEL Atorvastatin Calcium (Atorvastatin Calcium 40 Mg Tablet) 40 mg G-TUBE BEDTIME [facility] Last Admin: 04/29/22 21:23 Dose: 40 mg Documented By: DARNELL Cyanocobalamin (Cyanocobalamin (Vitamin B-12) 1,000 Mcg Tablet) 1,000 mcg G-TUBE DAILY [facility] Last Admin: 04/30/22 09:13 Dose: 1,000 mcg Documented By: MICHAEL Dextrose (Dextrose 50 % 25 Gm/50 Ml Syringe) 25 gm IVPUSH Q15M PRN; Protocol PRN Reason: per Hypoglycemia Standing Ord. Last Admin: 04/22/22 06:03 Dose: 25 gm Documented By: MICHELLE Folic Acid (Folic Acid 1 Mg Tablet) 1 mg G-TUBE DAILY [facility] Last Admin: 04/30/22 09:13 Dose: 1 mg Documented By: MICHAEL Glucose (Glucose Gel 15 Gm Gel..Gram.) 15 gm PO Q15M PRN; Protocol PRN Reason: per Hypoglycemia Standing Ord. Ceftriaxone Sodium 1 gm/ (Sodium Chloride) 50 mls @ 100 mls/hr IV Q24H [facility] Last Infusion: 04/29/22 23:02 Dose: 0 mls/hr Documented By: DARNELL Vancomycin HCl 1,500 mg/ (Sodium Chloride) 500 mls @ 333.333 mls/hr IV Q24H [facility] Last Infusion: 04/30/22 13:41 Dose: 0 mls/hr Documented By: MICHAEL Insulin Human Lispro (Insulin Lispro 100 Unit/Ml 3 Ml Vial) 0 unit SUBCUT Q6H [facility]; Protocol Last Admin: 04/30/22 08:01 Dose: Not Given Documented By: MICHAEL Non-Admin Reason: No Insulin Coverage Levetiracetam (Levetiracetam Oral Soln 500 Mg/5 Ml) 500 mg G-TUBE BID [facility] Last Admin: 04/30/22 09:13 Dose: 500 mg Documented By: MICHAEL Lisinopril (Lisinopril 5 Mg Tablet) 5 mg G-TUBE DAILY [facility]; Protocol Last Admin: 04/30/22 09:13 Dose: 5 mg Documented By: MICHAEL Melatonin (Melatonin 3 Mg Tablet) 6 mg PO BEDTIME PRN PRN Reason: Insomnia Last Admin: 04/25/22 19:48 Dose: 6 mg Documented By: DELFINO Metoprolol Tartrate (Metoprolol Tartrate 12.5 Mg Halftab) 12.5 mg G-TUBE BID [facility]; Protocol Last Admin: 04/30/22 09:13 Dose: 12.5 mg Documented By: MICHAEL Olanzapine (Olanzapine 2.5 Mg Tablet) 2.5 mg PO BID PRN PRN Reason: anxiety/restlessness Omeprazole (Omeprazole 20 Mg/10 Ml Susp.Recon) 20 mg G-TUBE DAILY@0630 [facility] Last Admin: 04/30/22 05:31 Dose: 20 mg Documented By: EDE Ondansetron HCl (Ondansetron Hcl 4 Mg/2 Ml Vial) 4 mg IVPUSH Q8H PRN PRN Reason: Nausea and Vomiting Pharmacy Consult (Consult Rx Perform Med Rec) 1 each MISCELLANE ONCE PRN PRN Reason: Consult order Pharmacy Consult (Consult Rx Vancomycin Dosing) 1 each MISCELLANE DAILY PRN PRN Reason: Consult order Sodium Chloride (0.9 % Sodium Chloride Flush 3 Ml Syringe) 3 ml IVFLUSH QSHIFT [facility] Last Admin: 04/30/22 09:13 Dose: 3 ml Documented By: MICHAEL Tamsulosin HCl (Tamsulosin Hcl 0.4 Mg Capsule) 0.4 mg PO DAILY [facility] Last Admin: 04/30/22 09:13 Dose: 0.4 mg Documented By: MICHAEL Thiamine HCl (Thiamine Hcl 100 Mg Tablet) 100 mg G-TUBE DAILY [facility] Last Admin: 04/30/22 09:13 Dose: 100 mg Documented By: MICHAEL Vitamin D (Cholecalciferol (Vitamin D3) 25 Mcg Tablet) 50 mcg G-TUBE DAILY [facility] Last Admin: 04/30/22 09:13 Dose: 50 mcg Documented By: MICHAEL Labs CBC & Chem 7: 04/28/22 07:19 04/30/22 07:19 Labs: Laboratory Results - last 24 hr 04/29/22 04/29/22 04/30/22 15:15 20:15 02:25 Estim Creat Clear Calc Estimated GFR POC Glucose 91 111 126 H Random Vancomycin 04/30/22 04/30/22 04/30/22 07:19 07:29 10:01 Estim Creat Clear Calc 84.6 Estimated GFR > 60 POC Glucose 126 H Random Vancomycin 18.1 04/30/22 11:20 Estim Creat Clear Calc Estimated GFR POC Glucose 126 H Random Vancomycin Assessment and Plan (1) Wound dehiscence: Status: Acute Plan 66-year-old male with 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 Wound dehiscence Debrided on 04/28/2022 by general surgery Elizabeth removed, covered with wet to dry dressing, gauze and tape Acute upper GI bleed with acute blood loss anemia. Stable HH underwent upper endoscopy 04/22 and diagnosed to have gastritis, esophagitis and duodenal ulcer with visible vessel,status post 3 units of FFP and 3 units of packed RBC hematocrit improved no recurrent bleed Eliquis discontinued Continue Prilosec indefinitely, negative H pylori, gastric biopsy showed mild chronic inactive gastritis, intestinal metaplasia and dysplasia Plan for colonoscopy o/p Enterococcus/MRSA/ Enterobacter Likely from skin infection with nonhealing stump wound, dehiscence echo Ef 40-45% RMWA, no vegetation ID recommend 4 weeks of IV antibiotic after 1st negative blood cultures, IV vanco and ceftriaxone. 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 DVT Prohpylaxis compression boots Attending Dr. Kapadia DNR/DNI Disposition, back to facility when medically clear Patient need continued inpatient stay for acute blood loss anemia and on iv abx for bacteremia Time Spent With Patient Time: Total time managing care of this patient today ____ minutes. Quality Stroke Does the patient have a stroke diagnosis?: No VTE Prior VTE?: No VTE Risk Level:: Medical - moderate - high VTE Device Contraindication: Treatment Not Indicated VTE Drug Contraindication: Treatment Not Indicated
[2022-04-30 14:54] LABS: Glucose, Whole Blood 115 mg/dL (60-115)
[2022-04-30 15:07] VITALS: BP 160/70; PULSE 89; RESP 17; TEMP 36.3; O2SAT 98
[2022-04-30] MEDS: OLANZapine 2.5 MG TABLET PO (15:10)
[2022-04-30 15:13] VITALS: BP 154/68
--- NOTE | 2022-04-30 17:43 | PC.NURSE ---
report received from overnight RN, media arts professor per JUL. at 1734, CMT reported to this RN that at 12:22 today pt had breif rhythm change, V-tach that lasted for 18 seconds. This RN was unaware at the time of the incident, hospitalist notified at 1735, new orders for labs. Pt awake and at baseline, camera in room, call mcconnell within reach, bed alarm on, hourly rounding.
[2022-04-30 19:14] VITALS: BP 174/72; PULSE 100; RESP 24; TEMP 36.4; O2SAT 99
[2022-04-30] MEDS: Atorvastatin Calcium 40 MG TABLET G-TUBE (19:55)
[2022-04-30] MEDS: Metoprolol Tartrate 25 MG TABLET G-TUBE (19:56)
[2022-04-30] MEDS: Magnesium Sulfate/H2O 2 GM/50 ML PIGGYBACK IV (20:04)
[2022-04-30] MEDS: cefTRIAXone sodium 1 GM in 0.9 % Sodium Chloride 50 ML IV (21:48)
[2022-05-01] VITALS: PULSE 85; RESP 13; TEMP 36.1; O2SAT 100
[2022-05-01 03:21] VITALS: BP 163/73; PULSE 88; RESP 18; TEMP 36.4; O2SAT 99
[2022-05-01 03:27] LABS: Glucose, Whole Blood 119 mg/dL (60-115)
[2022-05-01 07:11] LABS: Anion Gap 12 (12-20); Blood Urea Nitrogen 12 mg/dL (9-16); Calcium 8.6 mg/dL (8.4-10.2); Carbon Dioxide 21 mmol/L (22-29); Chloride 109 mmol/L (96-108); Creatinine Clr Calc Pharmacy 87.7; Estimated Glomerular Filt Rate > 60; Glucose Random 128 mg/dL (60-115); Magnesium 1.7 mg/dL (1.6-2.6); Sodium 138 mmol/L (135-145)
[2022-05-01 07:56] VITALS: BP 168/71; PULSE 97; RESP 20; TEMP 36.3; O2SAT 97
[2022-05-01] MEDS: Magnesium Sulfate/H2O 2 GM/50 ML PIGGYBACK IV (10:10)
[2022-05-01] MEDS: Tamsulosin HCL 0.4 MG CAPSULE PO (10:11)
[2022-05-01] MEDS: Folic Acid 1 MG TABLET G-TUBE (10:11)
[2022-05-01] MEDS: Metoprolol Tartrate 25 MG TABLET G-TUBE (10:11)
[2022-05-01] MEDS: lisinopriL 5 MG TABLET G-TUBE (10:11)
[2022-05-01] MEDS: amLODIPine Besylate 10 MG TABLET G-TUBE (10:11)
[2022-05-01] MEDS: Cholecalciferol (Vitamin D3) 25 MCG TABLET 50 MCG G-TUBE (10:11)
[2022-05-01] MEDS: Thiamine HCL 100 MG TABLET G-TUBE (10:11)
[2022-05-01] MEDS: Cyanocobalamin (Vitamin B-12) 1,000 MCG TABLET 1000 MCG G-TUBE (10:12)
[2022-05-01] MEDS: levETIRAcetam Oral Soln 500 MG/5 ML G-TUBE (10:12)
[2022-05-01 10:29] LABS: Hematocrit 24.8 % (42.0-52.0); Hemoglobin 7.9 g/dl (14.0-18.0); Mean Corpuscular HGB Conc 31.9 g/dl (31.0-36.0); Mean Corpuscular Hemoglobin 30.3 pg (27.0-33.0); Platelet Count 450 X10*3/uL (160-400); Red Blood Count 2.61 X10*6/uL (4.60-5.80); Red Cell Distribution Width 14.9 % (11.0-16.0); White Blood Count 12.3 X10*3/uL (4.8-10.8)
[2022-05-01 10:57] LABS: Vancomycin Random 17.4 mcg/mL (15-20)
--- NOTE | 2022-05-01 11:03 | HE.PHANOTE ---
Vancomycin Dosing Addendum Patients level came back at 17.4 mg/L. This is down from last level but dose remained the same. Will keep current dose to see if patients level evens out. Next level draw to be 05/02 @1000. Renal function stable at this time.
--- NOTE | 2022-05-01 11:17 | MHC.CLN ---
F/U PT RECEIVING JEVITY 1.0 AT MAX GOAL RATE 75ML/HR WITH 30ML PROSOURCE BID AND 120ML FREE WATER FLUSHES Q 6 HRS PROVIDES 2028TOTAL KCALS (28.6KCALS/KG), 110G PROTEIN (1.5G/KG), 2073ML TOTAL WATER FROM FORMULA AND FLUSHES (28ML/KG) ADDITIONAL PROTEIN TO PROMOTE WOUND HEALING CONTINUE TO MONITOR TOLERANCE, RESIDUALS, AND LYTES
--- NOTE | 2022-05-01 11:45 | MHC.CM.PN ---
Per ROUNDS discussion, if Patient can get his PICC today, he can return to [facility] at [facility];CM will follow.
--- NOTE | 2022-05-01 11:58 | PM.PNGS ---
Subjective Subjective Date of Service: 05/01/22 <Georgina Montejo PA-C - Last Filed: 05/01/22 13:02> 05/01/22 <Portillo Aburto MD - Last Filed: 05/01/22 13:27> Interval history: Had PICC line placed today. States he is having a lot of pain. <Georgina Montejo PA-C - Last Filed: 05/01/22 13:02> Physical Exam Vital Signs: Vital Signs: Last Vital Signs Temp 97.4 F 05/01/22 07:56 Pulse 97 05/01/22 07:56 Resp 20 05/01/22 07:56 BP 168/71 H 05/01/22 07:56 Pulse Ox 97 05/01/22 07:56 O2 Del Method 05/01/22 07:56 O2 Flow Rate 2.5 04/21/22 06:46 BMI result Body Mass Index 22.4 <Georgina Montejo PA-C - Last Filed: 05/01/22 13:02> Const: General: alert; No no acute distress <Georgina Montejo PA-C - Last Filed: 05/01/22 13:02> Resp: Effort & Inspection: normal respiratory effort <Georgina Montejo PA-C - Last Filed: 05/01/22 13:02> Skin: General skin exam: no rashes or lesions noted <Georgina Montejo PA-C - Last Filed: 05/01/22 13:02> Extrem: Other: left AKA site- wound openings at medial and lateral aspects of AKA stump, both sites granulating, some exudate at base; no erythema or purulence <Georgina Montejo PA-C - Last Filed: 05/01/22 13:02> Objective Data Active Medications Acetaminophen (Acetaminophen 325 Mg Tablet) 650 mg PO Q6H PRN PRN Reason: Pain, Mild (Pain Scale 1-3) Last Admin: 04/27/22 12:44 Dose: 650 mg Documented By: MOSES Amlodipine Besylate (Amlodipine Besylate 10 Mg Tablet) 10 mg G-TUBE DAILY [facility]; Protocol Last Admin: 05/01/22 10:11 Dose: 10 mg Documented By: CARA Atorvastatin Calcium (Atorvastatin Calcium 40 Mg Tablet) 40 mg G-TUBE BEDTIME [facility] Last Admin: 04/30/22 19:55 Dose: 40 mg Documented By: MICHAEL Cyanocobalamin (Cyanocobalamin (Vitamin B-12) 1,000 Mcg Tablet) 1,000 mcg G-TUBE DAILY [facility] Last Admin: 05/01/22 10:12 Dose: 1,000 mcg Documented By: CARA Dextrose (Dextrose 50 % 25 Gm/50 Ml Syringe) 25 gm IVPUSH Q15M PRN; Protocol PRN Reason: per Hypoglycemia Standing Ord. Last Admin: 04/22/22 06:03 Dose: 25 gm Documented By: MICHELLE Folic Acid (Folic Acid 1 Mg Tablet) 1 mg G-TUBE DAILY [facility] Last Admin: 05/01/22 10:11 Dose: 1 mg Documented By: CARA Glucose (Glucose Gel 15 Gm Gel..Gram.) 15 gm PO Q15M PRN; Protocol PRN Reason: per Hypoglycemia Standing Ord. Ceftriaxone Sodium 1 gm/ (Sodium Chloride) 50 mls @ 100 mls/hr IV Q24H [facility] Last Infusion: 04/30/22 22:20 Dose: 0 mls/hr Documented By: ANTOIC Vancomycin HCl 1,500 mg/ (Sodium Chloride) 500 mls @ 333.333 mls/hr IV Q24H [facility] Last Infusion: 04/30/22 13:41 Dose: 0 mls/hr Documented By: MICHAEL Insulin Human Lispro (Insulin Lispro 100 Unit/Ml 3 Ml Vial) 0 unit SUBCUT Q6H [facility]; Protocol Last Admin: 05/01/22 10:34 Dose: Not Given Documented By: CARA Non-Admin Reason: No Insulin Coverage Levetiracetam (Levetiracetam Oral Soln 500 Mg/5 Ml) 500 mg G-TUBE BID [facility] Last Admin: 05/01/22 10:12 Dose: 500 mg Documented By: CARA Lisinopril (Lisinopril 5 Mg Tablet) 5 mg G-TUBE DAILY [facility]; Protocol Last Admin: 05/01/22 10:11 Dose: 5 mg Documented By: CARA Melatonin (Melatonin 3 Mg Tablet) 6 mg PO BEDTIME PRN PRN Reason: Insomnia Last Admin: 04/25/22 19:48 Dose: 6 mg Documented By: DELFINO Metoprolol Tartrate (Metoprolol Tartrate 25 Mg Tablet) 25 mg G-TUBE BID [facility]; Protocol Last Admin: 05/01/22 10:11 Dose: 25 mg Documented By: CARA Olanzapine (Olanzapine 2.5 Mg Tablet) 2.5 mg PO BID PRN PRN Reason: anxiety/restlessness Last Admin: 04/30/22 15:10 Dose: 2.5 mg Documented By: MICHAEL Omeprazole (Omeprazole 20 Mg/10 Ml Susp.Recon) 20 mg G-TUBE DAILY@0630 [facility] Last Admin: 05/01/22 05:41 Dose: 20 mg Documented By: ANTRASTA Ondansetron HCl (Ondansetron Hcl 4 Mg/2 Ml Vial) 4 mg IVPUSH Q8H PRN PRN Reason: Nausea and Vomiting Pharmacy Consult (Consult Rx Perform Med Rec) 1 each MISCELLANE ONCE PRN PRN Reason: Consult order Pharmacy Consult (Consult Rx Vancomycin Dosing) 1 each MISCELLANE DAILY PRN PRN Reason: Consult order Sodium Chloride (0.9 % Sodium Chloride Flush 3 Ml Syringe) 3 ml IVFLUSH QSHIFT [facility] Last Admin: 05/01/22 10:34 Dose: Not Given Documented By: CARA Non-Admin Reason: IV Running Tamsulosin HCl (Tamsulosin Hcl 0.4 Mg Capsule) 0.4 mg PO DAILY [facility] Last Admin: 05/01/22 10:11 Dose: 0.4 mg Documented By: CARA Thiamine HCl (Thiamine Hcl 100 Mg Tablet) 100 mg G-TUBE DAILY [facility] Last Admin: 05/01/22 10:11 Dose: 100 mg Documented By: CARA Vitamin D (Cholecalciferol (Vitamin D3) 25 Mcg Tablet) 50 mcg G-TUBE DAILY [facility] Last Admin: 05/01/22 10:11 Dose: 50 mcg Documented By: CARA <Georgina Montejo PA-C - Last Filed: 05/01/22 13:02> Labs CBC & Chem 7: : 05/01/22 10:00 05/01/22 06:35 <Georgina Montejo PA-C - Last Filed: 05/01/22 13:02> Labs: Laboratory Results - last 24 hr 04/30/22 04/30/22 05/01/22 14:51 19:21 03:22 MCV MCH MCHC RDW Plt Count MPV Absolute Nucleated RBC Nucleated RBC % (auto) Anion Gap Estim Creat Clear Calc Estimated GFR POC Glucose 115 104 119 H Random Glucose Calcium Magnesium Random Vancomycin 05/01/22 05/01/22 05/01/22 06:35 08:00 10:00 MCV 95.0 MCH 30.3 MCHC 31.9 RDW 14.9 Plt Count 450 H MPV 9.0 L Absolute Nucleated RBC 0.000 Nucleated RBC % (auto) 0.0 Anion Gap 12 Estim Creat Clear Calc 87.7 Estimated GFR > 60 POC Glucose 120 H Random Glucose 128 H Calcium 8.6 Magnesium 1.7 Random Vancomycin 05/01/22 10:00 MCV MCH MCHC RDW Plt Count MPV Absolute Nucleated RBC Nucleated RBC % (auto) Anion Gap Estim Creat Clear Calc Estimated GFR POC Glucose Random Glucose Calcium Magnesium Random Vancomycin 17.4 <Georgina Montejo PA-C - Last Filed: 05/01/22 13:02> Procedures Date of Service Date of Service: 05/01/22 <Georgina Montejo PA-C - Last Filed: 05/01/22 13:02> Progress Note: A&P Assessment and plan (1) Wound dehiscence: Status: Acute <Georgina Montejo PA-C - Last Filed: 05/01/22 13:02> Assessment and Plan: Continue wet to dry dressings to open areas of the AKA stump Dr. Valdovinos will be back next week Seen and examined independently <Portillo Aburto MD - Last Filed: 05/01/22 13:27> (2) Above knee amputation of left lower extremity: Status: Acute <Georgina Montejo PA-C - Last Filed: 05/01/22 13:02> Assessment and Plan: Wound dehiscence following left AKA Sharp excisional debridement of nonviable tissue performed at bedside earlier this week on 2 areas of the wound Both open wounds are clean and granulating, continue wound care wet to dry dressings daily Dr. Valdovinos will be back on Wednesday <Georgina Montejo PA-C - Last Filed: 05/01/22 13:02> Time Spent With Patient Time: Total time managing care of this patient today ____ minutes. <Georgina Montejo PA-C - Last Filed: 05/01/22 13:02> Quality Stroke Does the patient have a stroke diagnosis?: No <Georgina Montejo PA-C - Last Filed: 05/01/22 13:02> VTE Prior VTE?: No <Georgina Montejo PA-C - Last Filed: 05/01/22 13:02> VTE Risk Level:: Medical - moderate - high <Georgina Montejo PA-C - Last Filed: 05/01/22 13:02> VTE Device Contraindication: Treatment Not Indicated <Georgina Montejo PA-C - Last Filed: 05/01/22 13:02> VTE Drug Contraindication: Treatment Not Indicated <Georgina Montejo PA-C - Last Filed: 05/01/22 13:02>
--- NOTE | 2022-05-01 12:20 | HO.PICC ---
PICC Line Insertion NPICC Diagnosis: Non healing left stump wound Indication: lobsterman antibiotics Pertinent Labs: Reviewed Technique: Following informed consent including risks, benefits and alternatives and using sterile technique including cap and mask, sterile gown, glove and drape, the left arm was prepped and draped in the usual sterile fashion of full barrier technique with CHG. Following completion of [place] Protocol the skin and soft tissues were anesthetized with 1% Lidocaine plain. Using ultrasound guidance, Left brachial vein access was obtained. Over an 0.018 wire through peel-away sheath, a 4 maori single lumen PASV PICC line was positioned in a second attempt by this RN. Catheter length is 44 cm internal length, 0 cm external length, for a total trimmed length of 44 cm. The procedure was performed in S272. Tip verification was performed by Soheila Salguero with Doron 3CG. Tip located in SVC. Ultrasound was used to document vein patency and for needle entry. A formal ultrasound picture and cardiac rhythm strip was recorded. [facility] has released the line for use and it is currently dressed with a StatLock, Tegaderm, and CHG disc. Verification has been performed for blood return and line patency. Arm Circumference: 27 cm Equipment: [employer] PowerPICC Solo Catheter Type: 4 maori single lumen PASV Lot #: [id number]
[2022-05-01 12:34] VITALS: BP 175/79; PULSE 103; RESP 20; TEMP 36.7; O2SAT 97
--- NOTE | 2022-05-01 12:37 | PM.DS ---
DS: Providers Provider Date of Service: 05/01/22 Date of admission: 04/21/22 07:27 Date of discharge: 05/01/22 Primary care physician: Nonstaff Physician Consults: 04/21/22 07:29 Consult to Gastroenterology Routine Consulting Provider: Juliet Luna Reason for consultation: GI bleed 04/22/22 11:19 Consult to Infectious Diseases Routine Consulting Provider: Marcy Wolf Reason for consultation: gm pos/neg bacteremia Has provider been notified: No 04/23/22 11:23 Consult to Vascular Surgery Routine Consulting Provider: Piero Valdovinos Reason for consultation: aka wound dehiscence Has provider been notified: No 04/27/22 15:13 Consult to General Surgery Routine Consulting Provider: Portillo Aburto Reason for consultation: Left AKA, wound dehiscence Has provider been notified: Yes Attending physician on discharge: Dennis Kapadia Discharging clinician: Danyell Liang DS: Diagnosis Discharge Diagnosis (1) Wound dehiscence: Status: Acute DS: Summary Hospital Course Hospital Course: From H&P on day of admission This is a 66-year-old male with 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 Patient is nonverbal, drowsy and only eye opening to painful stimulus.? History obtained from chart review.? Patient was recently admitted and discharged on 04/17.? During hospital course he underwent left AKA.? Hospitalization was complicated by hemolytic shock due to acute GI bleed.? GI was consulted with no plan for intervention and bleeding stopped with discontinuation of Eliquis.? As per ER provider, patient resumed Eliquis on 04/17 at [facility] and had significant rectal bleed with coffee-ground emesis that started on the day of presentation.? Patient was also hypotensive upon arrival.? Unable to obtain review of systems Wound dehiscence Debrided on 04/28/2022 by general surgery [place] removed, covered with wet to dry dressing, gauze and tape Will need daily wet to dry dressing changes should follow up with Dr. Valdovinos in the next one week Acute upper GI bleed with acute blood loss anemia. underwent upper endoscopy 04/22 and diagnosed to have gastritis, esophagitis and duodenal ulcer with visible vessel,status post 3 units of FFP and 3 units of packed RBC hematocrit improved no recurrent bleed Eliquis discontinued Continue Prilosec indefinitely,? negative H pylori, gastric biopsy showed mild chronic inactive gastritis, intestinal metaplasia and dysplasia Plan for colonoscopy o/p. Should call to schedule follow up appointment Enterococcus/MRSA/ Enterobacter Likely from skin infection with nonhealing stump wound, dehiscence echo Ef 40-45% RMWA, no vegetation ID recommend 4 weeks of IV antibiotic after 1st negative blood cultures, IV vanco and ceftriaxone. 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 Discharge coordination time: Greater than 30 minutes Quality: Safe Use of Opioids Does Pt have an Active Cancer Diagnosis on the Problem List?: No Quality: Stroke Does the patient have a stroke diagnosis?: No Physical Exam Vital Signs: Vital Signs: Last Vital Signs Temp 97.4 F 05/01/22 07:56 Pulse 97 05/01/22 07:56 Resp 20 05/01/22 07:56 BP 168/71 H 05/01/22 07:56 Pulse Ox 97 05/01/22 07:56 O2 Del Method 05/01/22 07:56 O2 Flow Rate 2.5 04/21/22 06:46 BMI result Body Mass Index 22.4 DS: Data Data Completed and Pending Completed studies during hospitalization [Text1]: Pending at discharge 04/22/22 14:35 Surgical [PTH] Routine Procedures Detachment at Left Upper Leg, High, Open Approach (03/03/22) Detoxification Services for Substance Abuse Treatment (06/23/21) Drainage of Spinal Canal, Percutaneous Approach, Diagnostic (03/03/22) Fluoroscopy of Spinal Cord (03/03/22) Insertion of Feeding Device into Stomach, Percutaneous Approach (03/03/22) Insertion of Infusion Device into Superior Vena Cava, Percutaneous Approach (03/03/22) Transfusion of Nonautologous Red Blood Cells into Peripheral Vein, Percutaneous Approach (03/03/22) Ultrasonography of Superior Vena Cava, Guidance (03/03/22) Labs on day of discharge: Laboratory Results - last 24 hr 04/30/22 04/30/22 05/01/22 14:51 19:21 03:22 WBC RBC Hgb Hct MCV MCH MCHC RDW Plt Count MPV Absolute Nucleated RBC Nucleated RBC % (auto) Sodium Potassium Chloride Carbon Dioxide Anion Gap BUN Creatinine Estim Creat Clear Calc Estimated GFR POC Glucose 115 104 119 H Random Glucose Calcium Magnesium Random Vancomycin 05/01/22 05/01/22 05/01/22 06:35 08:00 10:00 WBC 12.3 H RBC 2.61 L Hgb 7.9 L Hct 24.8 L MCV 95.0 MCH 30.3 MCHC 31.9 RDW 14.9 Plt Count 450 H MPV 9.0 L Absolute Nucleated RBC 0.000 Nucleated RBC % (auto) 0.0 Sodium 138 Potassium 4.0 Chloride 109 H Carbon Dioxide 21 L Anion Gap 12 BUN 12 Creatinine 0.82 Estim Creat Clear Calc 87.7 Estimated GFR > 60 POC Glucose 120 H Random Glucose 128 H Calcium 8.6 Magnesium 1.7 Random Vancomycin 05/01/22 10:00 WBC RBC Hgb Hct MCV MCH MCHC RDW Plt Count MPV Absolute Nucleated RBC Nucleated RBC % (auto) Sodium Potassium Chloride Carbon Dioxide Anion Gap BUN Creatinine Estim Creat Clear Calc Estimated GFR POC Glucose Random Glucose Calcium Magnesium Random Vancomycin 17.4 Discharge Plan Discharge Anticipated Discharge Date/Time: 05/01/22 14:00 Patient Disposition: er [facility] Discharge Diagnosis: Wound dehiscence upper GI bleed Enterococcus/MRSA/enterbacter bacteremia Referrals: Kourtney Strauss [place] [Outside] - 1 Week Physician,Nonstaff [Primary Care Provider] - 1 Week Remberto Ventura MD [Physician] - 1 Week (vtach, cardiomyopathy) Piero Valdovinos MD [Physician] - 1 Week Discharge Medications: Continued levetiracetam 500 mg Tablet 500 mg PO BID omeprazole magnesium 10 mg susp,delayed release for recon 20 mg feeding tube DAILY Qty: 30 0RF atorvastatin 40 mg tablet 40 mg feeding tube BEDTIME Qty: 30 0RF cyanocobalamin (vitamin B-12) 1,000 mcg tablet 1,000 mcg feeding tube QAM Qty: 30 0RF thiamine HCl (vitamin B1) 100 mg tablet 100 mg feeding tube DAILY Qty: 30 1RF amlodipine 10 mg Tablet 10 mg feeding tube DAILY Qty: 30 0RF Protocol: Hold for SBP< HOLD for SBP < : 90 folic acid 1 mg tablet 1 mg feeding tube DAILY Qty: 30 1RF lisinopril 5 mg tablet 5 mg feeding tube DAILY Qty: 30 0RF cholecalciferol (vitamin D3) 50 mcg (2,000 unit) capsule 50 mcg feeding tube DAILY Qty: 30 0RF metoprolol tartrate 25 mg tablet 12.5 mg feeding tube BID Qty: 60 0RF tamsulosin 0.4 mg capsule 0.4 mg PO DAILY Discontinued gabapentin 600 mg Tablet 600 mg feeding tube BID phenytoin [Dilantin Infatabs] 50 mg Tablet,Chewable 50 mg G-tube BID sertraline 25 mg Tablet 25 mg PO DAILY olanzapine 20 mg Tablet 20 mg PO BEDTIME oxycodone 5 mg Tablet 5 mg feeding tube Q6H PRN (Reason: Pain) Eliquis 5 mg Tablet 5 mg PO BID Incruse Ellipta 62.5 mcg/actuation Blister With Device 1 inh INHALATION DAILY Discharge Orders: Discharge Order (Routine); Ordered 05/01/22 Ordered By: Danyell Liang Activity on Discharge: As tolerated Stand Alone Forms: Patient Portal Discharge page Care Plan Goals: see below Health Concerns: GI bleed bacteremia wound dehiscence NSVT Plan of Treatment: Multiple medications were discontinued on the patient's previous discharge from 04/17 but were still on his med list when he was re-admitted on 04/21. Please see med rec above: discontinued medications from previous admission include olanzapine, sertraline, gabapentin, phenytoin, Eliquis For bacteremia - he needs IV ceftriaxone 1 gm q24h and IV vancomycin 1500 q24h for 4 weeks from first negative blood cultures on 04/21 - end date 05/19/2022 Follow CBC, [facility], vanco trough weekly start on Wednesday while receiving antibiotics for wound patient needs wet to dry dressings changed daily and follow up with Dr. Valdovinos in one week Recommend outpatient follow up with cardiology for management of cardiomyopathy and NSVT Assessment: see discharge summary
[2022-05-01] MEDS: vancomycin HCL 1,500 MG in 0.9 % Sodium Chloride 500 ML 333.33 MG IV (12:56)
[2022-05-01] MEDS: Acetaminophen 325 MG TABLET 650 MG PO (13:03)
--- NOTE | 2022-05-01 13:05 | MHC.CM.PN ---
Per Medical, Patient will be medically cleared for dc to SNF/STR today. Patient will return to STR at [facility] today at 3:30 PM, via [facility]. Patient has a diagnosis of Encephalopathy; CM addressed IMM with HCP/Ashwin @ [phone] and original will be mailed certified letter to Ashwin and a copy has been placed in the chart. Ashwin is aware of and in agreement with the dc plan.
[2022-05-01 14:08] LABS: COVID-19 Test Negative (Negative); IDNOW Serial# 55D5AD1C
== END 2022-05-01 16:00 | disposition skilled nursing facility (03) | DRG 377 ==
LOC: HO.ED 06:51 → HO.EDOVER 08:38 → HO.IMC 11:11
PROVIDERS: Hospitalist; Internal Medicine; Internal Medicine Gastroenterology; Nurse Practitioner Acute Care; Physician Assistant; Admitting Provider Student in an Organized Health Care Education/Training Program; Emergency Provider Internal Medicine; Visit Provider Physician Assistant Medical
PROC: 0DJ08ZZ Inspection of Upper Intestinal Tract, Via Natural or Artificial Opening Endoscopic (ICD-10-PCS; CPT 43235; principal; 2022-04-22 14:30)
DX: K29.71 Gastritis, unspecified, with bleeding (principal); G93.41 Metabolic encephalopathy; D62 Acute posthemorrhagic anemia; E46 Unspecified protein-calorie malnutrition; I42.9 Cardiomyopathy, unspecified; I47.1 Supraventricular tachycardia; R78.81 Bacteremia; E87.21 Acute metabolic acidosis; F03.90 Unspecified dementia, unspecified severity, without behavioral disturbance, psychotic disturbance, mood disturbance, and anxiety; K20.91 Esophagitis, unspecified with bleeding; K26.4 Chronic or unspecified duodenal ulcer with hemorrhage; R29.810 Facial weakness; E78.2 Mixed hyperlipidemia; G40.909 Epilepsy, unspecified, not intractable, without status epilepticus; I73.9 Peripheral vascular disease, unspecified; E88.09 Other disorders of plasma-protein metabolism, not elsewhere classified; T87.81 Dehiscence of amputation stump; I10 Essential (primary) hypertension; F10.10 Alcohol abuse, uncomplicated; R73.9 Hyperglycemia, unspecified; B95.2 Enterococcus as the cause of diseases classified elsewhere; B95.62 Methicillin resistant Staphylococcus aureus infection as the cause of diseases classified elsewhere; Z74.01 Bed confinement status; Z89.612 Acquired absence of left leg above knee; Z68.22 Body mass index [BMI] 22.0-22.9, adult; Z20.822 Contact with and (suspected) exposure to COVID-19; Z93.1 Gastrostomy status; Z86.718 Personal history of other venous thrombosis and embolism; Z87.891 Personal history of nicotine dependence; Z79.899 Other long term (current) drug therapy
CPT/HCPCS: 36415; 36573; 70450; 70496; 70498; 71045; 74176; 80048; 80053; 80202; 81001; 82271; 82565; 82803; 82947; 83036; 83605; 83735; 84484; 85014; 85018; 85025; 85027; 85610; 86850; 86900; 86901; 86923; 87040; 87077; 87186; 87205; 87635; 88305; 88342; 93005; 93306; 96361; 96365; 96375; 99285; C1751; J0696; J1953; J2060; J2405; J2543; J3370; J3475; J7168; P9016; P9017; Q9957; Q9967

== ENCOUNTER 2022-05-01 18:48 | Emergency (ER) | payer MEDICARE, MEDICAID, SELFPAY ==
[2022-05-01 19:00] VITALS: BP 148/82; PULSE 88; O2SAT 98
[2022-05-01 19:20] VITALS: BP 156/62; PULSE 88; RESP 18; TEMP 36.6; O2SAT 97; BMI 27.0
--- NOTE | 2022-05-01 19:39 | PC.NURSE ---
pt arrived via EMS from SNF - pt d/c from [facility] earlier today. per SNF pt experiencing increased agitation, attempted to pull out g tube. 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 vss, per discharge summary pt requiring wound care for left below knee amputation, pt arrived without dressing, per [facility] notes previously covered w wet to dry dressings. PICC line in left arm. provider at beside, no new orders at this time.
--- NOTE | 2022-05-01 19:58 | ED.GENADULT ---
HPI - General Adult General Chief complaint: General Medical Stated complaint: aggigated Time Seen by Provider: 05/01/22 19:09 Source: patient, EMS and old records reviewed Mode of arrival: EMS Limitations: other (Dementia and baseline) History of Present Illness HPI narrative: Patient recently admitted with a GI bleed. Receiving NG tube with chronic tube feeds. Also with a history of left [id number]-dyq-wksl amputation with chronic wounds. [facility] the [facility]. He was mildly agitated they were pulling in his G-tube and a have no orders for sedation as the providers at the [facility] will not see him until after this weekend. Because of this they sent him back. The patient himself has no new complaints. He has been followed in patient has been stable. Most recent lab work stable. Related Data Home Medications Medication Instructions Recorded Confirmed tamsulosin 0.4 mg capsule 0.4 mg PO DAILY 04/01/20 04/21/22 levetiracetam 500 mg tablet 500 mg PO BID 04/21/22 04/21/22 Previous Rx's Medication Instructions Recorded amlodipine 10 mg tablet 10 mg feeding tube DAILY #30 tabs 04/17/22 atorvastatin 40 mg tablet 40 mg feeding tube BEDTIME #30 tabs 04/17/22 cholecalciferol (vitamin D3) 50 50 mcg feeding tube DAILY #30 caps 04/17/22 mcg (2,000 unit) capsule cyanocobalamin (vitamin B-12) 1,000 mcg feeding tube QAM #30 tabs 04/17/22 1,000 mcg tablet folic acid 1 mg tablet 1 mg feeding tube DAILY #30 tabs 04/17/22 lisinopril 5 mg tablet 5 mg feeding tube DAILY #30 tabs 04/17/22 metoprolol tartrate 25 mg tablet 12.5 mg feeding tube BID #60 tabs 04/17/22 omeprazole magnesium 10 mg oral 20 mg feeding tube DAILY #30 ea 04/17/22 suspension,delayed release thiamine HCl (vitamin B1) 100 mg 100 mg feeding tube DAILY #30 tabs 04/17/22 tablet olanzapine 5 mg tablet (Zyprexa) 5 mg PO BID #10 tabs 05/01/22 Allergies Allergy/AdvReac Type Severity Reaction Status Date / Time No Known Allergies Allergy Verified 04/07/22 13:53 [No Known Allergies*] Review of Systems Review of Systems: Unable to adequately assess review of systems secondary to confusion secondary to dementia [facility] Past Medical History Medical History (Updated 05/01/22 @ 20:09 by Enrrique Mcdaniels MD) Alcohol abuse Blood per rectum Cardiomyopathy Cellulitis Dementia DVT (deep venous thrombosis) DVT of deep femoral vein GERD (gastroesophageal reflux disease) Hepatitis Hepatitis C antibody positive in blood Hypertension PAD (peripheral artery disease) Seizure UTI (urinary tract infection) Wound dehiscence Surgical History (Updated 04/24/22 @ 12:27 by Tori Machado RN) History of esophagogastroduodenoscopy (EGD) Hx of AKA (above knee amputation) S/P percutaneous endoscopic gastrostomy (PEG) tube placement Family History Family History Father No problems noted. Mother No problems noted. Brother Cancer Sister No problems noted. Social History Social History Household Members: Unknown / Unable to assess Housing: Unknown / Unable to assess Unable to assess alcohol history related to: Unable to respond Alcohol intake: current Alcohol intake frequency: other Alcohol type: beer Patient Tobacco Use Status: Former Tobacco user Cigarettes Per Day: 7 Substance Use Type: Unknown Advance Directives Date on File: 10/11/20 service: No Current occupational status: unemployed and disabled Physical Exam ED Vital Signs: Vital Signs - 24 hr 05/01/22 19:20 Temperature 97.8 F Pulse Rate 88 Respiratory Rate 18 Blood Pressure 156/62 H Pulse Oximetry 97 Oxygen Delivery Method Room Air BMI result Body Mass Index 27.0 Const Other: Awake. Nontoxic appearing. Confused, Greek-speaking Resp Other: Clear and equal bilaterally without wheezes rales rhonchi. No respiratory distress Cardio Other: Regular rate and rhythm with a rate in the 80s. No Obvious murmurs rubs or gallops GI Other: Soft and nontender nondistended. G-tube is in place. No surrounding erythema or evidence of infection or injury to the G-tube site. Bowel sounds normal Skin Other: Warm pink and dry. Left amputation site with 2 large chronic appearing than once. Fibrinous exudate. No purulence drainage. No surrounding erythema or induration. Neuro Other: No obvious focal deficit Extrem Other: Left susrn-icz-clse amputation as noted Medical Decision Making Medical Decision Making MDM Narrative: Patient with agitated behavior at the [facility]. Here is cooperative but clearly confused. I spoke with the hospitalist who has been taking care of him. This is his baseline. He occasionally gets agitated and he has been getting p.r.n. Zyprexa. There is no evidence that he is septic or has any other cause of the agitation which is since resolved. I spoke with [facility] and they stated their concern was they had no p.r.n. or other medications for agitation for this patient until their provider sees him next Wednesday. They are comfortable taking him back if we write a prescription for Zyprexa to cover him until Wednesday. Is therefore stable for discharge back to the [facility]. We will dose him with Zyprexa now prior to discharge Discharge Plan Discharge Clinical Impression: Dementia Patient Disposition: Xfer SNF Instructions: Dementia (ED) Additional Instructions: Zyprexa to help control agitation Prescriptions: New olanzapine [Zyprexa] 5 mg tablet 5 mg PO BID Qty: 10 0RF No Action levetiracetam 500 mg Tablet 500 mg PO BID omeprazole magnesium 10 mg susp,delayed release for recon 20 mg feeding tube DAILY Qty: 30 0RF atorvastatin 40 mg tablet 40 mg feeding tube BEDTIME Qty: 30 0RF cyanocobalamin (vitamin B-12) 1,000 mcg tablet 1,000 mcg feeding tube QAM Qty: 30 0RF thiamine HCl (vitamin B1) 100 mg tablet 100 mg feeding tube DAILY Qty: 30 1RF amlodipine 10 mg Tablet 10 mg feeding tube DAILY Qty: 30 0RF Protocol: Hold for SBP< HOLD for SBP < : 90 folic acid 1 mg tablet 1 mg feeding tube DAILY Qty: 30 1RF lisinopril 5 mg tablet 5 mg feeding tube DAILY Qty: 30 0RF cholecalciferol (vitamin D3) 50 mcg (2,000 unit) capsule 50 mcg feeding tube DAILY Qty: 30 0RF metoprolol tartrate 25 mg tablet 12.5 mg feeding tube BID Qty: 60 0RF tamsulosin 0.4 mg capsule 0.4 mg PO DAILY
--- NOTE | 2022-05-01 20:31 | PC.NURSE ---
dry dressing applied to left leg wound per provider verbal order, medicated via g tube. pt incontinent of stool, cleaned and changed. provider spoke w nursing at SNF, report given, pt to transport back via ambulance.
--- NOTE | 2022-05-01 21:13 | PC.NURSE ---
pt incontinent of stool, cleaned and changed, brief applied, ambulance at bedside.
== END 2022-05-01 21:16 | disposition skilled nursing facility (03) ==
PROVIDERS: Emergency Provider Emergency Medicine; PCP Internal Medicine
DX: F03.90 Unspecified dementia, unspecified severity, without behavioral disturbance, psychotic disturbance, mood disturbance, and anxiety (principal); Z79.899 Other long term (current) drug therapy
CPT/HCPCS: 99282; 99283

== ENCOUNTER → 2022-05-07 10:39 | Outpatient (BNVA) | payer MEDICARE, MEDICAID, SELFPAY | PROVIDERS: PCP Family Medicine; Visit Provider Surgery Vascular Surgery | DX: Z89.612 Acquired absence of left leg above knee (principal) | CPT/HCPCS: 99212 ==

== ENCOUNTER 2022-05-15 12:33 | Inpatient (IN) | payer MEDICARE, MEDICAID, SELFPAY ==
--- NOTE | ~2022-05-15 | CT_ITS ---
EXAMINATION: CT FEMUR WITHOUT CONTRAST, LEFT CLINICAL INFORMATION: Exposed femur. Concern for osteomyelitis. COMPARISON: Left knee radiographs dated 03/15/2022. TECHNIQUE: Contiguous axial CT images of the left femur were obtained without contrast. Multiplanar reformats were provided and reviewed. This CT examination was performed using dose optimization techniques as appropriate, variously including the following: *Automated exposure control *Adjustment of mA and/or kV according to patient size (this includes techniques or standardized protocols for targeted exams where dose is matched to indication/reason for exam; i.e. extremities or head) *Use of iterative reconstruction technique. DOSE: 246 mGy-cm FINDINGS: Postsurgical change consistent with above-knee amputation. There is a clean margin along the resection site distally. There is minimal cortical erosion along the posterior aspect of the amputation site (axial image 191/228) measuring 1.1 cm in ML dimension. Findings could indicate early osteomyelitis in the appropriate clinical setting. There is an associated soft tissue wound with exposure of the distal amputation site. Mild dystrophic ossification posteromedial to the amputation site. No acute fracture or dislocation. Dystrophic ossifications along the periphery of the left hip joint. Mild left hip joint space narrowing with marginal osteophytes. No avascular necrosis. Soft tissue wound/ulceration along the anterior/distal aspect of the amputation site as well as the lateral aspect of the amputation site and anterolaterally in the region of the distal femur. Mild adjacent skin thickening without significant adjacent stranding. No organized fluid collection/abscess formation. The visualized muscles and tendons are grossly intact however, evaluation is significantly limited on CT examination. Atherosclerotic calcifications. CT/CT femur LT wo IV con IMPRESSION: 1. Postsurgical change consistent with above-knee amputation. Minimal cortical erosion along the posterior aspect of the amputation site measuring 1.1 cm in ML dimension. Findings could indicate early osteomyelitis in the appropriate clinical setting. 2. Soft tissue wound/ulceration along the anterior/distal aspect of the amputation site as well as the lateral aspect of the amputation site and anterolaterally in the region of the distal femur. No organized fluid collection/abscess formation. 3. Mild left hip osteoarthritis.
--- NOTE | ~2022-05-15 | XR_ITS ---
EXAMINATION: XR CHEST CLINICAL INFORMATION: Central line placement COMPARISON: 04/27/2022 TECHNIQUE: Frontal view of the chest was obtained. FINDINGS: Central venous catheter overlying the superior vena cava. There is no pneumothorax. Once again metallic fragments overlying the right chest. Lung scherer are grossly comparable to previous. Mild markings left base. Unchanged. XR/XR chest 1V IMPRESSION: Catheter overlying the superior vena cava. No pneumothorax.
--- NOTE | 2022-05-15 12:43 | ED.GENADULT ---
HPI - General Adult General Chief complaint: Extremity Injury, Lower Stated complaint: LEFT LEG WOUND CHECK Time Seen by Provider: 05/15/22 12:38 Source: EMS Mode of arrival: EMS Limitations: altered mental status (patient does not communicate at baseline) History of Present Illness HPI narrative: Patient is a 66 year old assigned male at with a history of HTN, cardiomyopathy, left above knee amputation with 2 chronic wounds, presenting to the emergency department today with worsening left leg wounds. Patient is a full code per SNF paperwork at bed side. SNF staff state that the patient has 2 large wounds to his left leg that are getting treated with dry to wet dressings and she went to place a wound vac when she noticed that his femur is sticking out. Staff states that the patient is normally non-verbal and does not communicate. Onset (ago): hour(s) Location: left and lower extremity Radiation: non-radiation Severity: moderate Severity scale (1-10): 5 Treatments prior to arrival: none Related Data Home Medications Medication Instructions Recorded Confirmed tamsulosin 0.4 mg capsule 0.4 mg PO DAILY 04/01/20 05/15/22 levetiracetam 500 mg tablet 500 mg PO BID 04/21/22 05/15/22 acetaminophen 325 mg tablet 650 mg PO Q4H PRN Pain 05/15/22 05/15/22 amlodipine 10 mg tablet 5 mg feeding tube DAILY 05/15/22 05/15/22 bisacodyl 10 mg rectal suppository 10 mg IN DAILY PRN Constipation 05/15/22 05/15/22 ceftriaxone 1 gram intravenous 1 g IV DAILY 05/15/22 05/15/22 solution molnupiravir 200 mg capsule (EUA) 800 mg PO Q12H 05/15/22 05/15/22 olanzapine 5 mg tablet (Zyprexa) 5 mg feeding tube BID 05/15/22 05/15/22 oxycodone 5 mg tablet 5 mg PO BID@0800,2100 05/15/22 05/15/22 oxycodone 5 mg tablet 5 mg PO ONCE PRN 30 minutes prior 05/15/22 05/15/22 to wound care oxycodone 5 mg tablet 5 mg PO Q6H PRN pain score 7-10 05/15/22 05/15/22 vancomycin 1.25 gram intravenous 1.5 g IV Q24H 05/15/22 05/15/22 solution Previous Rx's Medication Instructions Recorded atorvastatin 40 mg tablet 40 mg feeding tube BEDTIME #30 tabs 04/17/22 cholecalciferol (vitamin D3) 50 50 mcg feeding tube DAILY #30 caps 04/17/22 mcg (2,000 unit) capsule cyanocobalamin (vitamin B-12) 1,000 mcg feeding tube QAM #30 tabs 04/17/22 1,000 mcg tablet folic acid 1 mg tablet 1 mg feeding tube DAILY #30 tabs 04/17/22 lisinopril 5 mg tablet 5 mg feeding tube DAILY #30 tabs 04/17/22 omeprazole magnesium 10 mg oral 20 mg feeding tube DAILY #30 ea 04/17/22 suspension,delayed release thiamine HCl (vitamin B1) 100 mg 100 mg feeding tube DAILY #30 tabs 04/17/22 tablet Allergies Allergy/AdvReac Type Severity Reaction Status Date / Time No Known Allergies Allergy Verified 05/07/22 10:48 [No Known Allergies*] Review of Systems Review of Systems: Yes Unobtainable due to mental condition (patient is non-verbal at baseline) Constitutional: Constitutional: Denies fever(s) Eyes: Eyes: Denies eye discharge and Denies loss of vision ENT: Denies dizziness and Denies neck mass Cardiovascular: Cardiovascular: Denies dyspnea Respiratory: Respiratory: Denies cough and Denies dyspnea Gastrointestinal: Gastrointestinal: Denies melena and Denies hematochezia Genitourinary: Genitourinary: Reports no additional male genitourinary complaints, Denies hematuria, Denies oliguria, Denies difficulty urinating, Denies dysuria, Denies urinary frequency, Denies urinary hesitancy, Denies urinary incontinence and Denies urinary urgency Musculoskeletal: Musculoskeletal: Reports no additional musculoskeletal complaints, Denies numbness and Denies tingling Comments: worsening wounds on left leg Neurologic: Denies dizziness, Denies loss of vision, Denies numbness and Denies tingling Psychiatric: Psychiatric: Reports no additional psychiatric complaints Endocrine: Endocrine: Reports no additional endocrine complaints Hematologic/Lymphatic: Hematologic/Lymphatic: Reports no additional hematologic/lymphatic complaints Allergic/Immunologic: Allergic/Immunologic: Reports no additional allergic/immunologic complaints PMFSH Past Medical History Attestation statement: The following information was validated with the patient. (all information validated by SNF staff) Source: old records reviewed, nursing notes reviewed and other (SNF records and staff) Medical History Above knee amputation of left lower extremity Alcohol abuse Blood per rectum Cardiomyopathy Cellulitis Dementia DVT (deep venous thrombosis) DVT of deep femoral vein GERD (gastroesophageal reflux disease) Hepatitis Hepatitis C antibody positive in blood Hypertension PAD (peripheral artery disease) Seizure UTI (urinary tract infection) Wound dehiscence Surgical History History of esophagogastroduodenoscopy (EGD) Hx of AKA (above knee amputation) S/P percutaneous endoscopic gastrostomy (PEG) tube placement Family History Family History Father No problems noted. Mother No problems noted. Brother Cancer Sister No problems noted. Social History Social History (Updated 05/15/22 @ 17:31 by BERNY Davison) Household Members: Unknown / Unable to assess Housing: Unknown / Unable to assess Unable to assess alcohol history related to: Unable to respond Alcohol intake: former Patient Tobacco Use Status: Former Tobacco user Cigarettes Per Day: 7 Substance Use Type: Unknown Advance Directives: Yes Advance Directives on File: Yes Advance Directives Date on File: 10/11/20 service: No Current occupational status: unemployed and disabled Physical Exam ED Vital Signs: Vital Signs - 24 hr 05/15/22 13:02 Temperature 98.7 F Pulse Rate 88 Respiratory Rate 19 Blood Pressure 101/78 Pulse Oximetry 92 Oxygen Delivery Method Room Air BMI result Body Mass Index 20.9 Const General: cooperative, no acute distress, alert and awake Nutritional Appearance: well nourished Orientation/consciousness: oriented to person Limitations: physical limitations (patient is non-verbal at baseline) HENMT Head: Yes normal to inspection and Yes atraumatic Ears: hearing grossly normal bilaterally and external ears normal General nose exam: Normal external nose present, no nasal discharge noted and no epistaxis Face and sinus: Yes normal facial exam, No abrasion and No laceration Mouth: Normal oral and palatal mucosa present, no drooling and no muffled voice Eyes General: appearance normal, both eyes and all related structures Periorbital: periorbital findings normal Eyelids: Yes eyelids normal Conjunctivae: conjunctivae normal Pupils: Equal, round and reactive pupils present EOM: EOMs intact bilaterally Neck Neck: Yes normal visual inspection, Yes full ROM and Yes no lymphadenopathy Chest Chest palpation & inspection: normal inspection of the chest Resp Effort & Inspection: normal respiratory effort and able to speak in complete sentences Auscultation: clear to auscultation bilaterally Cardio Rate: regular rate Rhythm: regular rhythm GI Inspection: Yes normal to inspection Neuro General: oriented to person and moves all extremities Cranial nerves: Yes Equal, round and reactive pupils present Cognition (Neuro): normal cognition Motor exam (neuro): 5/5 motor strength present throughout Sensory Exam: Normal double simultaneous stimulation for sensation Coordination: [id number] test normal Extrem Other: General: Yes capillary refill normal Psych Appearance: grossly normal Mental Status: mental status grossly normal Affect: normal affect Attitude: cooperative Thought process: Normal thought process present Thought content: Normal thought content present Insight: Good insight present (Psych) Medications Administered Discontinued Medications Generic Name Dose Route Start Last Admin Trade Name Freq PRN Reason Stop Dose Admin Lorazepam 2 mg 05/15/22 17:43 05/15/22 17:48 Lorazepam 2 Mg/Ml Vial IM 05/15/22 17:44 2 mg ONCE ONE Administration Olanzapine 5 mg 05/15/22 15:28 05/15/22 15:34 Olanzapine 10 Mg Vial IM 05/15/22 15:29 5 mg STAT STA Administration Medical Decision Making Medical Decision Making [facility] Narrative: Patient is a 66 year old assigned male at with a history of HTN, cardiomyopathy, base line non-verbal, and left above knee amputation with 2 chronic wounds presenting to the emergency department today with worsening left leg wounds. Patient's physical exam was as documented. Patient's blood work showed an elevated WBC count of 15, ESR of 119, potassium of 5.5, BUN of 33, and CRP of 5.52. Patient's left femur CT showed minimal cortical erosion along the posterior aspect of the amuptation site measuring 1.1 cm in ML dimension - could indicate early osteomyelitis. Patient already received IV Vancomycin and Rocephin at the [facility] via his PICC line for treatment of his MRSA infected leg wounds. When I spoke to the SNF staff at 1300 they informed me his last infusion of ABX finished at 1200 today, 05/15/2022. I spoke to Dr. Valdovinos who recommended admission to medicine for further evaluation of next steps in this patient's treatment plan. Patient is not clinically septic nor is his clinical presentation consistent with sepsis. I spoke to the hosptialist team who agreed to admission. Differential Diagnosis Differential Diagnoses: The differential diagnosis associated with the presentation includes osteomyelitis, worsening chronic wounds, continued MRSA infection Consult Healthcare Provider Management of the patient was discussed with: Hospitalist (agreed to admission) and Clinical Training Specialist (spoke to Dr. Valdovinos who recommended admission to medicine) Lab Data MDM Lab Attestation statement: I reviewed the patient's lab results. 05/15/22 12:57 05/15/22 12:57 Labs: Lab Results 05/15/22 05/15/22 05/15/22 Range/Units 12:57 12:57 12:57 WBC 15.0 H (4.8-10.8) X10*3/uL RBC 2.79 L (4.60-5.80) X10*6/uL Hgb 7.9 L (14.0-18.0) g/dl Hct 25.4 L (42.0-52.0) % MCV 91.0 (80.0-98.0) fL MCH 28.3 (27.0-33.0) pg MCHC 31.1 (31.0-36.0) g/dl RDW 15.9 (11.0-16.0) % Plt Count 374 (160-400) X10*3/uL MPV 9.9 (9.4-12.4) fL Immature Gran % (Auto) 0.4 (0.0-0.4) % Neut % (Auto) 68.2 (45-73) % Lymph % (Auto) 16.7 L (20-40) % [place] % (Auto) 9.2 (2-11) % Eos % (Auto) 5.2 H (0-4) % Baso % (Auto) 0.3 (0-2) % Lymph # (Auto) 2.5 (1.2-4.9) X10*3/uL [place] # (Auto) 1.4 H (0.1-1.2) X10*3/uL Eos # (Auto) 0.8 H (0.0-0.4) X10*3/uL Baso # (Auto) 0.0 (0.0-0.2) X10*3/uL Abs Immat Gran (auto) 0.06 H (0.00-0.03) X10*3/uL Absolute Neuts (auto) 10.2 H (2.0-8.3) x10*3/uL Absolute Nucleated RBC 0.000 (0.0-0.012) X10*3/uL Nucleated RBC % (auto) 0.0 (0.0-0.2) /100WBC ESR 119 H (0-15) MM/HR PT 13.3 H (10.0-13.1) SEC INR 1.2 H (0.9-1.1) APTT 24.9 L (26.0-36.4) SEC Sodium (135-145) mmol/L Potassium (3.3-5.1) mmol/L Chloride (96-108) mmol/L Carbon Dioxide (22-29) mmol/L Anion Gap (12-20) BUN (9-16) mg/dL Creatinine (0.5-1.4) mg/dL Estim Creat Clear Calc Estimated GFR Random Glucose (60-115) mg/dL Calcium (8.4-10.2) mg/dL Magnesium (1.6-2.6) mg/dL Total Bilirubin (0.0-1.0) mg/dL AST (5-37) U/L ALT (0-40) U/L Alkaline Phosphatase (39-117) U/L C-Reactive Protein (< or = 0.50) mg/dL Total Protein (6.5-8.0) g/dL Albumin (3.5-5.0) g/dL Influenza Type A (PCR) (Negative) Influenza Type B (PCR) (Negative) RSV RNA Qual (PCR) (Negative) SARS-CoV-2 RNA (RT-PCR) (Negative) 05/15/22 05/15/22 Range/Units 12:57 12:57 WBC (4.8-10.8) X10*3/uL RBC (4.60-5.80) X10*6/uL Hgb (14.0-18.0) g/dl Hct (42.0-52.0) % MCV (80.0-98.0) fL MCH (27.0-33.0) pg MCHC (31.0-36.0) g/dl RDW (11.0-16.0) % Plt Count (160-400) X10*3/uL MPV (9.4-12.4) fL Immature Gran % (Auto) (0.0-0.4) % Neut % (Auto) (45-73) % Lymph % (Auto) (20-40) % [place] % (Auto) (2-11) % Eos % (Auto) (0-4) % Baso % (Auto) (0-2) % Lymph # (Auto) (1.2-4.9) X10*3/uL [place] # (Auto) (0.1-1.2) X10*3/uL Eos # (Auto) (0.0-0.4) X10*3/uL Baso # (Auto) (0.0-0.2) X10*3/uL Abs Immat Gran (auto) (0.00-0.03) X10*3/uL Absolute Neuts (auto) (2.0-8.3) x10*3/uL Absolute Nucleated RBC (0.0-0.012) X10*3/uL Nucleated RBC % (auto) (0.0-0.2) /100WBC ESR (0-15) MM/HR PT (10.0-13.1) SEC INR (0.9-1.1) APTT (26.0-36.4) SEC Sodium 141 (135-145) mmol/L Potassium 5.5 H D (3.3-5.1) mmol/L Chloride 109 H (96-108) mmol/L Carbon Dioxide 24 (22-29) mmol/L Anion Gap 14 (12-20) BUN 33 H (9-16) mg/dL Creatinine 0.85 (0.5-1.4) mg/dL Estim Creat Clear Calc 70.3 Estimated GFR > 60 Random Glucose 95 (60-115) mg/dL Calcium 8.8 (8.4-10.2) mg/dL Magnesium 1.7 (1.6-2.6) mg/dL Total Bilirubin 0.2 (0.0-1.0) mg/dL AST 25 (5-37) U/L ALT 22 (0-40) U/L Alkaline Phosphatase 111 (39-117) U/L C-Reactive Protein 5.52 H (< or = 0.50) mg/dL Total Protein 7.6 (6.5-8.0) g/dL Albumin 2.9 L (3.5-5.0) g/dL Influenza Type A (PCR) NEGATIVE (Negative) Influenza Type B (PCR) NEGATIVE (Negative) RSV RNA Qual (PCR) NEGATIVE (Negative) SARS-CoV-2 RNA (RT-PCR) POSITIVE A (Negative) Radiology Impression Discussion of test interpretation with radiology: I have reviewed the radiologist's reading. Radiologist Impression: My interpretation is in agreement with the radiologist's impression of this imaging study. EXAMINATION: CT FEMUR WITHOUT CONTRAST, LEFT CLINICAL INFORMATION: Exposed femur. Concern for osteomyelitis.? COMPARISON: Left knee radiographs dated 03/15/2022.? TECHNIQUE: Contiguous axial CT images of the left femur were obtained without contrast. Multiplanar reformats were provided and reviewed. This CT examination was performed using dose optimization techniques as appropriate, variously including the following: *Automated exposure control *Adjustment of mA and/or kV according to patient size (this includes techniques or standardized protocols for targeted exams where dose is matched to indication/reason for exam; i.e. extremities or head) *Use of iterative reconstruction technique. DOSE: 246 mGy-cm FINDINGS: Postsurgical change consistent with above-knee amputation. There is a clean margin along the resection site distally. There is minimal cortical erosion along the posterior aspect of the amputation site (axial image 191/228) measuring 1.1 cm in ML dimension. Findings could indicate early osteomyelitis in the appropriate clinical setting. There is an associated soft tissue wound with exposure of the distal amputation site. Mild dystrophic ossification posteromedial to the amputation site. No acute fracture or dislocation. Dystrophic ossifications along the periphery of the left hip joint. Mild left hip joint space narrowing with marginal osteophytes. No avascular necrosis. Soft tissue wound/ulceration along the anterior/distal aspect of the amputation site as well as the lateral aspect of the amputation site and anterolaterally in the region of the distal femur. Mild adjacent skin thickening without significant adjacent stranding. No organized fluid collection/abscess formation. The visualized muscles and tendons are grossly intact however, evaluation is significantly limited on CT examination. Atherosclerotic calcifications. CT/CT femur LT wo IV con IMPRESSION: 1. Postsurgical change consistent with above-knee amputation. Minimal cortical erosion along the posterior aspect of the amputation site measuring 1.1 cm in ML dimension. Findings could indicate early osteomyelitis in the appropriate clinical setting. ? 2. Soft tissue wound/ulceration along the anterior/distal aspect of the amputation site as well as the lateral aspect of the amputation site and anterolaterally in the region of the distal femur. No organized fluid collection/abscess formation. ? 3. Mild left hip osteoarthritis. Dictated By: Haile Maya MD Signed By: Electronically signed by Haile Maya MD 05/15/22 [id number] Independent Historian Clinical information obtained from an independent historian. History obtained from or confirmed by: EMS and Other (SNF staff / notes) External Record Review External record reviewed: Other (patient's SNF records) Critical Care Time Critical Care Time Critical Care Time: Yes Total Critical Care Time: 45 Attestation: I spent 45 minutes of Critical Care Time with this patient. This does not include time spent on separately reported billable procedures. Discharge Plan Discharge Clinical Impression: Osteomyelitis Patient Disposition: Admitted As Inpatient
[2022-05-15 13:02] VITALS: BP 101/78; PULSE 88; RESP 19; TEMP 37.1; O2SAT 92; BMI 20.9
[2022-05-15 13:05] LABS: MANUAL DIFF FLAG NO
[2022-05-15 13:09] LABS: Basophils Percent Auto 0.3 % (0-2); Eosinophils Absolute Auto 0.8 X10*3/uL (0.0-0.4); Eosinophils Percent Auto 5.2 % (0-4); Hematocrit 25.4 % (42.0-52.0); Hemoglobin 7.9 g/dl (14.0-18.0); Imm Gran Abs Auto 0.06 X10*3/uL (0.00-0.03); Imm Gran Pct Auto 0.4 % (0.0-0.4); Lymphocytes Absolute Auto 2.5 X10*3/uL (1.2-4.9); Lymphocytes Percent Auto 16.7 % (20-40); Mean Corpuscular HGB Conc 31.1 g/dl (31.0-36.0); Mean Corpuscular Hemoglobin 28.3 pg (27.0-33.0); Mean Platelet Volume 9.9 fL (9.4-12.4); Monocytes Absolute Auto 1.4 X10*3/uL (0.1-1.2); Monocytes Percent Auto 9.2 % (2-11); Neutrophils Absolute Auto 10.2 x10*3/uL (2.0-8.3); Neutrophils Percent Auto 68.2 % (45-73); Platelet Count 374 X10*3/uL (160-400); Red Blood Count 2.79 X10*6/uL (4.60-5.80); Red Cell Distribution Width 15.9 % (11.0-16.0)
--- NOTE | 2022-05-15 13:11 | PC.NURSE ---
66 y/o M with chronic wounds to L AKA pw femur open to air. PICC line patent, all labs drawn and sent. VSS at this time. agitated at times, nonverbal at baseline. hx dementia.
[2022-05-15 13:14] LABS: INTERNATIONAL NORM RATIO 1.2 (0.9-1.1); Prothrombin Time 13.3 SEC (10.0-13.1)
[2022-05-15 13:17] LABS: Partial Thromboplastin Time 24.9 SEC (26.0-36.4)
[2022-05-15 13:31] LABS: Alanine Aminotransferase 22 U/L (0-40); Albumin Level 2.9 g/dL (3.5-5.0); Alkaline Phosphatase 111 U/L (39-117); Anion Gap 14 (12-20); Aspartate Amino Transferase 25 U/L (5-37); Bilirubin Total 0.2 mg/dL (0.0-1.0); Blood Urea Nitrogen 33 mg/dL (9-16); C Reactive Protein 5.52 mg/dL (< or = 0.50); Calcium 8.8 mg/dL (8.4-10.2); Carbon Dioxide 24 mmol/L (22-29); Chloride 109 mmol/L (96-108); Creatinine Clr Calc Pharmacy 70.3; Estimated Glomerular Filt Rate > 60; Glucose Random 95 mg/dL (60-115); Magnesium 1.7 mg/dL (1.6-2.6); Potassium 5.5 mmol/L (3.3-5.1); Sodium 141 mmol/L (135-145); Total Protein 7.6 g/dL (6.5-8.0)
[2022-05-15 13:52] LABS: Erythrocyte Sedimentation Rate 119 MM/HR (0-15)
--- NOTE | 2022-05-15 14:49 | PHA.MEDREC ---
Pharmacy Consult ? Medication Reconciliation Pharmacy has completed the medication reconciliation. List from [facility]. All medications are to be through feeding tube, however, some medications did not allow that option when inputting
[2022-05-15 15:10] LABS: Influenza A PCR NEGATIVE (Negative); Influenza B PCR NEGATIVE (Negative); Resp Syncy Virus RNA Qual PCR NEGATIVE (Negative); SARS COV2 PCR INHOUSE POSITIVE (Negative)
[2022-05-15] MEDS: OLANZapine 10 MG VIAL 5 MG IM (15:34)
--- NOTE | 2022-05-15 15:41 | PC.NURSE ---
pt attempting to get out of bed, telesitter in place, a few moments later patient pulled out his PICC line.
--- NOTE | 2022-05-15 15:44 | PC.NURSE ---
pt now with 1:1 sitter in room for safety
--- NOTE | 2022-05-15 17:17 | PM.IMHP ---
History of Present Illness Date of Service: 05/15/22 Attending physician on admission: Naveed [facility] Chief Complaint: nonhealing wound This is 66-year-old male with multiple medical issues who was brought to the ED with nonhealing surgical wound. He has had two previous admissions for numerous acute medical issues. He was discharged to rehab on 05/01. He was seen by Dr. Valdovinos in the outpatient setting on May 07. Wound was noted to be down to bone. At that time he recommended a wound VAC to be placed to the nonhealing wound, this was supposed to be done at the facility. It is unclear if this occurred. The patient is primarily nonverbal and therefore not able to provide any significant history. In the emergency department patient noted to have deep wound with exposed bone. Lab work was significant for leukocytosis of 15, H/H of 7.9/25.4 and potassium of 5.5. He was restless and pulled out his PICC line. He was given a dose of IM Zyprexa. In the emergency room provider discussed the case with Dr. Valdovinos recommended admitting the patient for further management of nonhealing wound. he had screening test for COVID 19 and tested positive. He has no evidence of hypoxia at this time. Review of Systems Review of Systems: unable to obtain full ROS, patient only minimally verbal PMFSH Medical History Above knee amputation of left lower extremity Alcohol abuse Blood per rectum Cardiomyopathy Cellulitis Dementia DVT (deep venous thrombosis) DVT of deep femoral vein GERD (gastroesophageal reflux disease) Hepatitis Hepatitis C antibody positive in blood Hypertension PAD (peripheral artery disease) Seizure UTI (urinary tract infection) Wound dehiscence Family History Father No problems noted. Mother No problems noted. Brother Cancer Sister No problems noted. Surgical History History of esophagogastroduodenoscopy (EGD) Hx of AKA (above knee amputation) S/P percutaneous endoscopic gastrostomy (PEG) tube placement Social History (Updated 05/15/22 @ 17:31 by BERNY Davison) Household Members: Unknown / Unable to assess Housing: Unknown / Unable to assess Unable to assess alcohol history related to: Unable to respond Alcohol intake: former Patient Tobacco Use Status: Former Tobacco user Cigarettes Per Day: 7 Substance Use Type: Unknown Advance Directives: Yes Advance Directives on File: Yes Advance Directives Date on File: 10/11/20 service: No Current occupational status: unemployed and disabled Meds Allergies Allergy/AdvReac Type Severity Reaction Status Date / Time No Known Allergies Allergy Verified 05/07/22 10:48 [No Known Allergies*] Active Medications: Current Medications Pharmacy Consult (Consult Rx Perform Med Rec) 1 each MISCELLANE ONCE PRN PRN Reason: Consult order Sodium Chloride (0.9 % Sodium Chloride Flush 3 Ml Syringe) 3 ml IVFLUSH [facility] Home Medications Medication Instructions Recorded Confirmed Last Taken Type tamsulosin 0.4 mg capsule 0.4 mg PO DAILY 04/01/20 05/15/22 Unknown History levetiracetam 500 mg tablet 500 mg PO BID 04/21/22 05/15/22 Unknown History acetaminophen 325 mg tablet 650 mg PO Q4H PRN Pain 05/15/22 05/15/22 Unknown History amlodipine 10 mg tablet 5 mg feeding tube DAILY 05/15/22 05/15/22 Unknown History bisacodyl 10 mg rectal suppository 10 mg [place] DAILY PRN Constipation 05/15/22 05/15/22 Unknown History ceftriaxone 1 gram intravenous 1 g IV DAILY 05/15/22 05/15/22 Unknown History solution molnupiravir 200 mg capsule (EUA) 800 mg PO Q12H 05/15/22 05/15/22 Unknown History olanzapine 5 mg tablet (Zyprexa) 5 mg feeding tube BID 05/15/22 05/15/22 Unknown History oxycodone 5 mg tablet 5 mg PO BID@0800,2100 05/15/22 05/15/22 Unknown History oxycodone 5 mg tablet 5 mg PO ONCE PRN 30 minutes prior 05/15/22 05/15/22 Unknown History to wound care oxycodone 5 mg tablet 5 mg PO Q6H PRN pain score 7-10 05/15/22 05/15/22 Unknown History vancomycin 1.25 gram intravenous 1.5 g IV Q24H 05/15/22 05/15/22 Unknown History solution Physical Exam Vital Signs and Narrative: Vital Signs: Last Vital Signs Temp 98.7 F 05/15/22 13:02 Pulse 88 05/15/22 13:02 Resp 19 05/15/22 13:02 BP 101/78 05/15/22 13:02 Pulse Ox 92 05/15/22 13:02 O2 Del Method 05/15/22 13:02 BMI result Body Mass Index 20.9 Const: Other: minimally verbal General: comfortable, no acute distress, alert and awake Nutritional Appearance: thin HEENT: Other: dry mucous membranes Resp: Effort & Inspection: normal respiratory effort and able to speak in complete sentences Auscultation: clear to auscultation bilaterally Cardio: Rate: regular rate Heart sounds: S1 normal heart sound present and S2 normal heart sound present GI: Other: feeding tube present Inspection: No distended Palpation (GI): Soft to palpation Skin: Other: left AKA stump wound Results Labs 05/15/22 12:57 05/15/22 12:57 Labs: Laboratory Results - last 24 hr 05/15/22 05/15/22 05/15/22 12:57 12:57 12:57 MCV 91.0 MCH 28.3 MCHC 31.1 RDW 15.9 Plt Count 374 MPV 9.9 Immature Gran % (Auto) 0.4 Neut % (Auto) 68.2 Lymph % (Auto) 16.7 L [place] % (Auto) 9.2 Eos % (Auto) 5.2 H Baso % (Auto) 0.3 Lymph # (Auto) 2.5 [place] # (Auto) 1.4 H Eos # (Auto) 0.8 H Baso # (Auto) 0.0 Abs Immat Gran (auto) 0.06 H Absolute Neuts (auto) 10.2 H Absolute Nucleated RBC 0.000 Nucleated RBC % (auto) 0.0 ESR 119 H PT 13.3 H INR 1.2 H APTT 24.9 L Anion Gap Estim Creat Clear Calc Estimated GFR Random Glucose Calcium Magnesium Total Bilirubin AST ALT Alkaline Phosphatase C-Reactive Protein Total Protein Albumin Influenza Type A (PCR) Influenza Type B (PCR) RSV RNA Qual (PCR) SARS-CoV-2 RNA (RT-PCR) 05/15/22 05/15/22 12:57 12:57 MCV MCH MCHC RDW Plt Count MPV Immature Gran % (Auto) Neut % (Auto) Lymph % (Auto) [place] % (Auto) Eos % (Auto) Baso % (Auto) Lymph # (Auto) [place] # (Auto) Eos # (Auto) Baso # (Auto) Abs Immat Gran (auto) Absolute Neuts (auto) Absolute Nucleated RBC Nucleated RBC % (auto) ESR PT INR APTT Anion Gap 14 Estim Creat Clear Calc 70.3 Estimated GFR > 60 Random Glucose 95 Calcium 8.8 Magnesium 1.7 Total Bilirubin 0.2 AST 25 ALT 22 Alkaline Phosphatase 111 C-Reactive Protein 5.52 H Total Protein 7.6 Albumin 2.9 L Influenza Type A (PCR) NEGATIVE Influenza Type B (PCR) NEGATIVE RSV RNA Qual (PCR) NEGATIVE SARS-CoV-2 RNA (RT-PCR) POSITIVE A Imaging Radiologist's Impressions: Impressions Femur CT 05/15/22 13:31 IMPRESSION: 1. Postsurgical change consistent with above-knee amputation. Minimal cortical erosion along the posterior aspect of the amputation site measuring 1.1 cm in ML dimension. Findings could indicate early osteomyelitis in the appropriate clinical setting. 2. Soft tissue wound/ulceration along the anterior/distal aspect of the amputation site as well as the lateral aspect of the amputation site and anterolaterally in the region of the distal femur. No organized fluid collection/abscess formation. 3. Mild left hip osteoarthritis. Assessment and Plan (1) COVID-19: Status: Acute Plan 66-year-old male with pertinent history of DVT on Eliquis, history of seizures, essential hypertension, mixed hyperlipidemia, cardiomyopathy, alcohol use disorde, peripheral vascular disease status post left AKA, recent admission for GI bleed who was sent to ED for management of nonhealing surgical wound found to be covid 19 positive. Nonhealing surgical wound. has been following with Dr. Valdovinos as outpatient. outpatient indicates wound was down to bone. has been on IV abx for bacteremia, will continue IV ceftriaxone and vancomycin dr. valdovinos has recommended wound vac, order placed vascular surgery consult COVID 19 was started on molnupiravir at [facility] 05/14 but was not sent with any paperwork to indicate that he has tested positive for covid he tested positive 05/15 in ED no hypoxia will continue molnupiravir, as ordered at [facility] to end 05/19 Hyperkalemia lokelma follow BMP hold lisinopril recent GI bleed Eliquis discontinued on previous admission Continue Prilosec Enterococcus/MRSA/ Enterobacter Likely from skin infection with nonhealing stump wound, dehiscence echo Ef 40-45% RMWA, no vegetation on previous admission ID recommend 4 weeks of IV antibiotic after 1st negative blood cultures, IV vanco and ceftriaxone. first negative blood cultures from 04/21/22 - end date 05/19/22 Pt pulled out picc line while in ED, ED provider plans to place HTN BP low hold lisinopril, amlodipine previously on metoprolol, does not appear on current med rec dysphagia NPO tube feeding diet nutrition consult Seizure disorder Continue by Makayla via G-tube seizure precautions History of DVT patient has history of left leg DVT diagnosed in August of 2021 eliquis d/c due to recurrent GI bleed PAD continue statin Alcohol use disorder continue thiamine and folic acid supplementation DVT Prohpylaxis compression boots due to h/o GIB code status - molst form from facility - FULL CODE. was DNR on previous hospitalization. may need to be discussed with HCP Given severity of wound likely will require 2 midnight stay in the hospital Time Spent With Patient Time: Total time managing care of this patient today ____ minutes. Quality Stroke Does the patient have a stroke diagnosis?: No VTE Prior VTE?: No VTE Risk Level:: Medical - moderate - high VTE Device Contraindication: N/A - Device Ordered VTE Drug Contraindication: Treatment Not Indicated
[2022-05-15] MEDS: LORazepam 2 MG/ML VIAL IM (17:48)
--- NOTE | 2022-05-15 17:49 | PC.NURSE ---
pt to be admitted, requires IV access, d/t difficult access pt to get central line by MD Hinson. set up at bedside, pt placed on cardiac monitoring, plan for 2mg IM ativan for procedural sedation
[2022-05-15 17:50] VITALS: BP 103/65; PULSE 102; RESP 19; TEMP 37.1; O2SAT 92
--- NOTE | 2022-05-15 18:29 | PC.NURSE ---
RIJ central line in place by MD Hinson, confirmation xray ordered
--- NOTE | 2022-05-15 18:50 | PC.NURSE ---
pt placed in bilateral soft restraints in order to maintain central line and G-tube. no signs of injury from intervention. 1:1 sitter also at bedside with patient.
--- NOTE | 2022-05-15 20:08 | PC.NURSE ---
pt labs are being drawn [place] [facility] [place]
[2022-05-15 20:37] VITALS: RESP 16
[2022-05-15 20:45] LABS: Vancomycin Random 22.1 mcg/mL (15-20)
[2022-05-15] MEDS: OLANZapine 5 MG TABLET G-TUBE (22:23)
[2022-05-15] MEDS: Atorvastatin Calcium 40 MG TABLET G-TUBE (22:23)
[2022-05-15] MEDS: oxyCODONE HCl Immed Release 5 MG TABLET PO (22:24)
[2022-05-15] MEDS: levETIRAcetam Oral Soln 500 MG/5 ML G-TUBE (22:24)
[2022-05-15 22:37] VITALS: RESP 18
[2022-05-16] VITALS (17 sets, daily range): BP systolic 108–151; BP diastolic 59–72; PULSE 72–109; RESP 14–22; TEMP 36.1–36.9; O2SAT 93–98
--- NOTE | 2022-05-16 05:27 | PC.NURSE ---
Pt came up in restraints due to pulling at central line, leg wound, and scratching staff. There was no order in the computer so Dr. Murillo put in order to be renewed in 24hrs.
--- NOTE | 2022-05-16 05:29 | PC.NURSE ---
PT has an order for cont. osmolite in peg tube but there were no specifics. Reached out to Dr. Murillo and he said to put it on 35ml/hr.
[2022-05-16 06:39] LABS: MANUAL DIFF FLAG NO
[2022-05-16 06:45] LABS: Basophils Absolute Auto 0.1 X10*3/uL (0.0-0.2); Basophils Percent Auto 0.5 % (0-2); Eosinophils Absolute Auto 0.8 X10*3/uL (0.0-0.4); Eosinophils Percent Auto 7.1 % (0-4); Hematocrit 25.1 % (42.0-52.0); Hemoglobin 7.7 g/dl (14.0-18.0); Imm Gran Abs Auto 0.06 X10*3/uL (0.00-0.03); Imm Gran Pct Auto 0.5 % (0.0-0.4); Lymphocytes Absolute Auto 2.3 X10*3/uL (1.2-4.9); Lymphocytes Percent Auto 19.2 % (20-40); Mean Corpuscular HGB Conc 30.7 g/dl (31.0-36.0); Mean Corpuscular Hemoglobin 27.9 pg (27.0-33.0); Mean Corpuscular Volume 90.9 fL (80.0-98.0); Mean Platelet Volume 9.9 fL (9.4-12.4); Monocytes Absolute Auto 1.2 X10*3/uL (0.1-1.2); Monocytes Percent Auto 10.2 % (2-11); Neutrophils Absolute Auto 7.4 x10*3/uL (2.0-8.3); Neutrophils Percent Auto 62.5 % (45-73); Platelet Count 393 X10*3/uL (160-400); Red Blood Count 2.76 X10*6/uL (4.60-5.80); Red Cell Distribution Width 16.2 % (11.0-16.0); White Blood Count 11.9 X10*3/uL (4.8-10.8)
[2022-05-16 06:56] LABS: Vancomycin Random 17.8 mcg/mL (15-20)
[2022-05-16 06:56] LABS: Anion Gap 13 (12-20); Blood Urea Nitrogen 37 mg/dL (9-16); Calcium 9.1 mg/dL (8.4-10.2); Carbon Dioxide 23 mmol/L (22-29); Chloride 110 mmol/L (96-108); Creatinine Clr Calc Pharmacy 59.7; Estimated Glomerular Filt Rate > 60; Glucose Random 112 mg/dL (60-115); Potassium 5.2 mmol/L (3.3-5.1); Sodium 141 mmol/L (135-145)
--- NOTE | 2022-05-16 07:15 | HE.PHANOTE ---
Vancomycin Dosing Random level 17.8. Patient was on vancomycin [address] [facility]. Will continue same regimen. Will get another random level tomorrow 05/17 @ 0700. Venus HoskinsD
[2022-05-16] MEDS: OLANZapine 5 MG TABLET G-TUBE ×2 (09:05→22:21)
[2022-05-16] MEDS: Folic Acid 1 MG TABLET G-TUBE (09:05)
[2022-05-16] MEDS: levETIRAcetam Oral Soln 500 MG/5 ML G-TUBE ×2 (09:05→22:21)
[2022-05-16] MEDS: oxyCODONE HCl Immed Release 5 MG TABLET PO ×2 (09:05→22:21)
[2022-05-16] MEDS: vancomycin HCL 1,500 MG in 0.9 % Sodium Chloride 500 ML 333.33 MG IV (09:06)
[2022-05-16] MEDS: Sodium Zirconium Cyclosilicate 10 GM POWD.PACK PO (09:06)
[2022-05-16] MEDS: Tamsulosin HCL 0.4 MG CAPSULE PO (09:06)
[2022-05-16] MEDS: 0.9 % Sodium Chloride Flush 3 ML SYRINGE IVFLUSH ×2 (09:06→22:33)
[2022-05-16] MEDS: Thiamine HCL 100 MG TABLET G-TUBE (09:06)
--- NOTE | 2022-05-16 09:57 | HO.PM.IMPN ---
Subjective Subjective Date of Service: 05/16/22 Review of Systems Follow-up nonhealing wound Patient confused, not verbalizing any pain Physical Exam Vital Signs: Vital Signs: Last Vital Signs Temp 97.3 F 05/16/22 07:23 Pulse 95 05/16/22 09:00 Resp 16 05/16/22 09:00 BP 132/71 05/16/22 07:23 Pulse Ox 97 05/16/22 07:23 O2 Del Method 05/16/22 07:23 BMI result Body Mass Index 20.9 Appearing in no acute distress lung sounds are clear to auscultation heart regular rate rhythm, clear S1, S2 positive bowel sounds, abdomen is soft, nontender neuro patient is alert x3, no focal deficits Left stump non healing wound Objective Data Active Medications Atorvastatin Calcium (Atorvastatin Calcium 40 Mg Tablet) 40 mg G-TUBE BEDTIME [facility] Last Admin: 05/15/22 22:23 Dose: 40 mg Documented By: BOBBY Bisacodyl (Bisacodyl 10 Mg Supp.Rect) 10 mg [place] DAILY PRN PRN Reason: Constipation Folic Acid (Folic Acid 1 Mg Tablet) 1 mg G-TUBE DAILY [facility] Last Admin: 05/16/22 09:05 Dose: 1 mg Documented By: VENKATA Ceftriaxone Sodium 1 gm/ (Sodium Chloride) 50 mls @ 100 mls/hr IV Q24H [facility] Last Admin: 05/15/22 21:05 Dose: Not Given Documented By: BOBBY Non-Admin Reason: not on unit yet Vancomycin HCl 1,500 mg/ (Sodium Chloride) 500 mls @ 333.333 mls/hr IV Q24H [facility] Last Admin: 05/16/22 09:06 Dose: 333.33 mls/hr Documented By: VENKATA Levetiracetam (Levetiracetam Oral Soln 500 Mg/5 Ml) 500 mg G-TUBE BID [facility] Last Admin: 05/16/22 09:05 Dose: 500 mg Documented By: VENKATA Olanzapine (Olanzapine 5 Mg Tablet) 5 mg G-TUBE BID [facility] Last Admin: 05/16/22 09:05 Dose: 5 mg Documented By: VENKATA Omeprazole (Omeprazole 20 Mg/10 Ml Susp.Recon) 20 mg G-TUBE DAILY@0630 [facility] Last Admin: 05/16/22 06:10 Dose: Not Given Documented By: BOBBY Non-Admin Reason: Unable to Scan Barcode Oxycodone HCl (Oxycodone Hcl Immed Release 5 Mg Tablet) 5 mg PO Q6H PRN PRN Reason: pain score 7-10 Oxycodone HCl (Oxycodone Hcl Immed Release 5 Mg Tablet) 5 mg PO BID@0800,2100 [facility] Last Admin: 05/16/22 09:05 Dose: 5 mg Documented By: VENKATA Pharmacy Consult (Consult Rx Perform Med Rec) 1 each MISCELLANE ONCE PRN PRN Reason: Consult order Pharmacy Consult (Consult Rx Vancomycin Dosing) 1 each MISCELLANE DAILY PRN PRN Reason: Consult order Sodium Chloride (0.9 % Sodium Chloride Flush 3 Ml Syringe) 3 ml IVFLUSH QSHIFT [facility] Last Admin: 05/16/22 09:06 Dose: 3 ml Documented By: VENKATA Tamsulosin HCl (Tamsulosin Hcl 0.4 Mg Capsule) 0.4 mg PO DAILY [facility] Last Admin: 05/16/22 09:06 Dose: 0.4 mg Documented By: VENKATA Thiamine HCl (Thiamine Hcl 100 Mg Tablet) 100 mg G-TUBE DAILY [facility] Last Admin: 05/16/22 09:06 Dose: 100 mg Documented By: VENKATA Labs 05/16/22 06:05 05/16/22 06:05 Labs: Laboratory Results - last 24 hr 05/15/22 05/15/22 05/15/22 12:57 12:57 12:57 MCV 91.0 MCH 28.3 MCHC 31.1 RDW 15.9 Plt Count 374 MPV 9.9 Immature Gran % (Auto) 0.4 Neut % (Auto) 68.2 Lymph % (Auto) 16.7 L [place] % (Auto) 9.2 Eos % (Auto) 5.2 H Baso % (Auto) 0.3 Lymph # (Auto) 2.5 [place] # (Auto) 1.4 H Eos # (Auto) 0.8 H Baso # (Auto) 0.0 Abs Immat Gran (auto) 0.06 H Absolute Neuts (auto) 10.2 H Absolute Nucleated RBC 0.000 Nucleated RBC % (auto) 0.0 ESR 119 H PT 13.3 H INR 1.2 H APTT 24.9 L Anion Gap Estim Creat Clear Calc Estimated GFR Random Glucose Calcium Magnesium Total Bilirubin AST ALT Alkaline Phosphatase C-Reactive Protein Total Protein Albumin Random Vancomycin Influenza Type A (PCR) Influenza Type B (PCR) RSV RNA Qual (PCR) SARS-CoV-2 RNA (RT-PCR) 05/15/22 05/15/22 05/15/22 12:57 12:57 20:13 MCV MCH MCHC RDW Plt Count MPV Immature Gran % (Auto) Neut % (Auto) Lymph % (Auto) [place] % (Auto) Eos % (Auto) Baso % (Auto) Lymph # (Auto) [place] # (Auto) Eos # (Auto) Baso # (Auto) Abs Immat Gran (auto) Absolute Neuts (auto) Absolute Nucleated RBC Nucleated RBC % (auto) ESR PT INR APTT Anion Gap 14 Estim Creat Clear Calc 70.3 Estimated GFR > 60 Random Glucose 95 Calcium 8.8 Magnesium 1.7 Total Bilirubin 0.2 AST 25 ALT 22 Alkaline Phosphatase 111 C-Reactive Protein 5.52 H Total Protein 7.6 Albumin 2.9 L Random Vancomycin 22.1 H Influenza Type A (PCR) NEGATIVE Influenza Type B (PCR) NEGATIVE RSV RNA Qual (PCR) NEGATIVE SARS-CoV-2 RNA (RT-PCR) POSITIVE A 05/16/22 05/16/22 05/16/22 06:05 06:05 06:09 MCV 90.9 MCH 27.9 MCHC 30.7 L RDW 16.2 H Plt Count 393 MPV 9.9 Immature Gran % (Auto) 0.5 H Neut % (Auto) 62.5 Lymph % (Auto) 19.2 L [place] % (Auto) 10.2 Eos % (Auto) 7.1 H Baso % (Auto) 0.5 Lymph # (Auto) 2.3 [place] # (Auto) 1.2 Eos # (Auto) 0.8 H Baso # (Auto) 0.1 Abs Immat Gran (auto) 0.06 H Absolute Neuts (auto) 7.4 Absolute Nucleated RBC 0.000 Nucleated RBC % (auto) 0.0 ESR PT INR APTT Anion Gap 13 Estim Creat Clear Calc 59.7 Estimated GFR > 60 Random Glucose 112 Calcium 9.1 Magnesium Total Bilirubin AST ALT Alkaline Phosphatase C-Reactive Protein Total Protein Albumin Random Vancomycin 17.8 Influenza Type A (PCR) Influenza Type B (PCR) RSV RNA Qual (PCR) SARS-CoV-2 RNA (RT-PCR) Assessment and Plan (1) Osteomyelitis: Status: Acute Plan 66-year-old male with pertinent history of DVT on Eliquis, history of seizures, essential hypertension, mixed hyperlipidemia, cardiomyopathy, alcohol use disorde, peripheral vascular disease status post left AKA, recent admission for GI bleed who was sent to ED for management of nonhealing surgical wound found to be covid 19 positive. Nonhealing surgical wound. has been following with Dr. Valdovinos as outpatient. outpatient indicates wound was down to bone. has been on IV abx for bacteremia, will continue IV ceftriaxone and vancomycin dr. valdovinos has recommended wound vac, order placed vascular surgery consult COVID 19 was started on molnupiravir at [facility] 05/14 but was not sent with any paperwork to indicate that he has tested positive for covid he tested positive 05/15 in ED no hypoxia will continue molnupiravir, as ordered at [facility] to end 05/19 Hyperkalemia lokelma follow BMP hold lisinopril recent GI bleed Eliquis discontinued on previous admission Continue Prilosec Enterococcus/MRSA/ Enterobacter Likely from skin infection with nonhealing stump wound, dehiscence echo Ef 40-45% RMWA, no vegetation on previous admission ID recommend 4 weeks of IV antibiotic after 1st negative blood cultures, IV vanco and ceftriaxone. first negative blood cultures from 04/21/22 - end date 05/19/22 Pt pulled out picc line while in ED, ED provider plans to place HTN BP low hold lisinopril, amlodipine previously on metoprolol, does not appear on current med rec dysphagia NPO tube feeding diet nutrition consult pending Seizure disorder Continue by Makayla via G-tube seizure precautions History of DVT patient has history of left leg DVT diagnosed in August of 2021 eliquis d/c due to recurrent GI bleed PAD continue statin Alcohol use disorder continue thiamine and folic acid supplementation DVT Prohpylaxis compression boots due to h/o GIB code status - molst form from facility - FULL CODE. was DNR on previous hospitalization. may need to be discussed with HCP Attending Linda Moran Given severity of wound likely will require 2 midnight stay in the hospital Time Spent With Patient Time: Total time managing care of this patient today ____ minutes. Quality Stroke Does the patient have a stroke diagnosis?: No VTE Prior VTE?: No VTE Risk Level:: Medical - moderate - high VTE Device Contraindication: N/A - Device Ordered VTE Drug Contraindication: Treatment Not Indicated
--- NOTE | 2022-05-16 11:11 | MHC.CM.PN ---
CM CONTACTED PT'S SON/HCP PRISCA AT 11:05AM [phone], PRISCA REPORTS PT IS IN STR AT [facility] AND WOULD LIKE PT TO RETURN, PRISCA REPORTS AT BASELINE PT LIVES W/HIM, USES A WALKER AND PRISCA HAS PURCHASED A W/C FOR PT, PRISCA DENIES PT HAS HOME SERVICES AND REPORTS THAT HE TAKES CARE OF PT AT HOME. ELLIOTT X4, HCP ON FILE FROM PREVIOUS VISIT AND PCP VIANEY SCHMITT. [facility] D/C BACK TO [facility] W/BLS TRANSPORT
[2022-05-16 16:02] LABS: Glucose, Whole Blood 113 mg/dL (60-115)
--- NOTE | 2022-05-16 16:46 | PC.NURSE ---
LLE wound dressing changed. Wound had purulent white discharge. Irrigated with NS, used wound wash then wrapped with new dressing.
[2022-05-16] MEDS: cefTRIAXone sodium 1 GM in 0.9 % Sodium Chloride 50 ML IV (17:33)
[2022-05-16 19:29] LABS: Glucose, Whole Blood 136 mg/dL (60-115)
[2022-05-16] MEDS: Atorvastatin Calcium 40 MG TABLET G-TUBE (22:21)
[2022-05-17] VITALS (11 sets, daily range): BP systolic 114–140; BP diastolic 59–73; PULSE 91–100; RESP 17–20; TEMP 36.1–36.9; O2SAT 95–98
[2022-05-17 06:45] LABS: Creatinine Clr Calc Pharmacy 62.9; Estimated Glomerular Filt Rate > 60
[2022-05-17 09:21] LABS: Hematocrit 25.8 % (42.0-52.0); Hemoglobin 7.7 g/dl (14.0-18.0)
[2022-05-17 09:36] LABS: Anion Gap 13 (12-20); Blood Urea Nitrogen 29 mg/dL (9-16); Calcium 9.1 mg/dL (8.4-10.2); Carbon Dioxide 24 mmol/L (22-29); Chloride 111 mmol/L (96-108); Creatinine Clr Calc Pharmacy 65.6; Estimated Glomerular Filt Rate > 60; Glucose Random 119 mg/dL (60-115); Potassium 4.3 mmol/L (3.3-5.1); Sodium 144 mmol/L (135-145)
[2022-05-17] MEDS: Folic Acid 1 MG TABLET G-TUBE (10:22)
[2022-05-17] MEDS: 0.9 % Sodium Chloride Flush 3 ML SYRINGE IVFLUSH (10:22)
[2022-05-17] MEDS: Thiamine HCL 100 MG TABLET G-TUBE (10:22)
[2022-05-17] MEDS: OLANZapine 5 MG TABLET G-TUBE ×2 (10:22→20:56)
[2022-05-17] MEDS: Tamsulosin HCL 0.4 MG CAPSULE PO (10:22)
[2022-05-17] MEDS: oxyCODONE HCl Immed Release 5 MG TABLET PO ×2 (10:22→20:55)
[2022-05-17] MEDS: levETIRAcetam Oral Soln 500 MG/5 ML G-TUBE ×2 (10:23→20:56)
--- NOTE | 2022-05-17 11:05 | P.PNIM_ITS ---
Subjective Subjective Date of Service: 05/17/22 Review of Systems Follow-up nonhealing wound Patient confused, not verbalizing any pain Physical Exam Vital Signs: Vital Signs: Last Vital Signs Temp 98.4 F 05/17/22 08:00 Pulse 97 05/17/22 08:00 Resp 17 05/17/22 08:00 BP 135/70 05/17/22 08:00 Pulse Ox 98 05/17/22 08:00 O2 Del Method 05/17/22 08:00 O2 Flow Rate 2 05/16/22 18:30 BMI result Body Mass Index 20.9 Appearing in no acute distress lung sounds are clear to auscultation heart regular rate rhythm, clear S1, S2 positive bowel sounds, abdomen is soft, nontender neuro patient is alert x3, no focal deficits Objective Data Active Medications Atorvastatin Calcium (Atorvastatin Calcium 40 Mg Tablet) 40 mg G-TUBE BEDTIME [facility] Last Admin: 05/16/22 22:21 Dose: 40 mg Documented By: BOBBY Bisacodyl (Bisacodyl 10 Mg Supp.Rect) 10 mg [place] DAILY PRN PRN Reason: Constipation Folic Acid (Folic Acid 1 Mg Tablet) 1 mg G-TUBE DAILY [facility] Last Admin: 05/17/22 10:22 Dose: 1 mg Documented By: VENKATA Ceftriaxone Sodium 1 gm/ (Sodium Chloride) 50 mls @ 100 mls/hr IV Q24H [facility] Last Infusion: 05/16/22 18:20 Dose: 0 mls/hr Documented By: VENKATA Vancomycin HCl 1,500 mg/ (Sodium Chloride) 500 mls @ 333.333 mls/hr IV Q24H [facility] Last Infusion: 05/16/22 13:29 Dose: 0 mls/hr Documented By: VENKATA Levetiracetam (Levetiracetam Oral Soln 500 Mg/5 Ml) 500 mg G-TUBE BID [facility] Last Admin: 05/17/22 10:23 Dose: 500 mg Documented By: VENKATA Olanzapine (Olanzapine 5 Mg Tablet) 5 mg G-TUBE BID [facility] Last Admin: 05/17/22 10:22 Dose: 5 mg Documented By: VENKATA Omeprazole (Omeprazole 20 Mg/10 Ml Susp.Recon) 20 mg G-TUBE DAILY@0630 [facility] Last Admin: 05/17/22 06:01 Dose: 20 mg Documented By: BOBBY Oxycodone HCl (Oxycodone Hcl Immed Release 5 Mg Tablet) 5 mg PO Q6H PRN PRN Reason: pain score 7-10 Oxycodone HCl (Oxycodone Hcl Immed Release 5 Mg Tablet) 5 mg PO BID@0800,2100 [facility] Last Admin: 05/17/22 10:22 Dose: 5 mg Documented By: VENKATA Pharmacy Consult (Consult Rx Perform Med Rec) 1 each MISCELLANE ONCE PRN PRN Reason: Consult order Pharmacy Consult (Consult Rx Vancomycin Dosing) 1 each MISCELLANE DAILY PRN PRN Reason: Consult order Sodium Chloride (0.9 % Sodium Chloride Flush 3 Ml Syringe) 3 ml IVFLUSH QSHIFT [facility] Last Admin: 05/17/22 10:22 Dose: 3 ml Documented By: VENKATA Tamsulosin HCl (Tamsulosin Hcl 0.4 Mg Capsule) 0.4 mg PO DAILY [facility] Last Admin: 05/17/22 10:22 Dose: 0.4 mg Documented By: VENKATA Thiamine HCl (Thiamine Hcl 100 Mg Tablet) 100 mg G-TUBE DAILY [facility] Last Admin: 05/17/22 10:22 Dose: 100 mg Documented By: VENKATA Labs 05/17/22 08:27 05/17/22 08:26 Labs: Laboratory Results - last 24 hr 05/16/22 05/16/22 05/17/22 16:00 19:25 05:58 Anion Gap Estim Creat Clear Calc Estimated GFR POC Glucose 113 136 H Random Glucose Calcium Random Vancomycin 22.0 H 05/17/22 05/17/22 05:58 08:26 Anion Gap 13 Estim Creat Clear Calc 62.9 65.6 Estimated GFR > 60 > 60 POC Glucose Random Glucose 119 H Calcium 9.1 Random Vancomycin Microbiology Microbiology Results: Microbiology 05/15/22 12:57 Blood Culture - Preliminary Blood - Venous No growth after 24 hours. 05/15/22 12:57 Blood Culture - Preliminary Blood - Venous No growth after 24 hours. Assessment and Plan (1) Osteomyelitis: Status: Acute Plan 66-year-old male with pertinent history of DVT on Eliquis, history of seizures, essential hypertension, mixed hyperlipidemia, cardiomyopathy, alcohol use disorde, peripheral vascular disease status post left AKA, recent admission for GI bleed who was sent to ED for management of nonhealing surgical wound found to be covid 19 positive. Nonhealing surgical wound. has been following with Dr. Valdovinos as outpatient. outpatient indicates wound was down to bone. has been on IV abx for bacteremia, will continue IV ceftriaxone and vancomycin dr. valdovinos has recommended wound vac, order placed vascular surgery consult SUDHEERID Mary was started on molnupiravir at SNF 05/14 but was not sent with any paperwork to indicate that he has tested positive for covid he tested positive 05/15 in ED no hypoxia will continue molnupiravir, as ordered at [facility] to end 05/19 Hyperkalemia lokelma follow BMP hold lisinopril recent GI bleed Eliquis discontinued on previous admission Continue Prilosec Enterococcus/MRSA/ Enterobacter Likely from skin infection with nonhealing stump wound, dehiscence echo Ef 40-45% RMWA, no vegetation on previous admission ID recommend 4 weeks of IV antibiotic after 1st negative blood cultures, IV vanco and ceftriaxone. first negative blood cultures from 04/21/22 - end date 05/19/22 Pt pulled out picc line while in ED, ED provider plans to place HTN BP low hold lisinopril, amlodipine previously on metoprolol, does not appear on current med rec dysphagia NPO tube feeding diet nutrition consult pending Seizure disorder Continue by Makayla via G-tube seizure precautions History of DVT patient has history of left leg DVT diagnosed in August of 2021 eliquis d/c due to recurrent GI bleed PAD continue statin Alcohol use disorder continue thiamine and folic acid supplementation DVT Prohpylaxis compression boots due to h/o GIB code status - molst form from facility - FULL CODE. was DNR on previous hospitalization. may need to be discussed with HCP Attending Linda Moran Given severity of wound likely will require 2 midnight stay in the hospital Time Spent With Patient Time: Total time managing care of this patient today ____ minutes. Quality Stroke Does the patient have a stroke diagnosis?: No VTE Prior VTE?: No VTE Risk Level:: Medical - moderate - high VTE Device Contraindication: N/A - Device Ordered VTE Drug Contraindication: Treatment Not Indicated
[2022-05-17 12:14] LABS: Vancomycin Random 18.5 mcg/mL (15-20)
--- NOTE | 2022-05-17 12:45 | HE.PHANOTE ---
Vancomycin Dosing Level was supratherapetic at 22 on 05/17 @ 058. New level drawn @ 1145 was 18.5. Will decrease a dose and start patient on vancomycin 1250 mg Q24H. Random level scheduled for 05/18 @ 1100. Tonya Chu, VenusD
[2022-05-17] MEDS: vancomycin HCL 1,250 MG in 0.9 % Sodium Chloride 250 ML 166.67 MG IV (13:35)
[2022-05-17] MEDS: cefTRIAXone sodium 1 GM in 0.9 % Sodium Chloride 50 ML IV (20:55)
[2022-05-17] MEDS: Atorvastatin Calcium 40 MG TABLET G-TUBE (20:56)
[2022-05-18] VITALS (16 sets, daily range): BP systolic 120–164; BP diastolic 55–83; PULSE 73–108; RESP 12–20; TEMP 36.1–37.4; O2SAT 93–97; BMI 20.9
--- NOTE | 2022-05-18 06:33 | PC.NURSE ---
PATIENT MONITORED CLOSELY THIS 8 HOUR SHIFT, SITTER AT BEDSIDE FOR SAFETY AND COMFORT. COLOR GOOD, SKIN WARM AND DRY, LUNG COSME DIM, VITALS OKAY AND DOCUMENTED Q 2 HOURS PER PROTOCOL WITH NON BEHAVIORAL RESTRAINTS AT LEFT AND RIGHT WRISTS. SKIN CHECKS AND LOOSENED WITHOUT INCIDENT. HOB UP, TUBE FEEDING ORDERED, LEFT STUMP DSG C-D-I. [place] CATHETER IN USE, SKIN CARE, AND REPOSITIONED. PT IS NONVERBAL, HOWEVER, COMFORT AND REASSURANCE PROVIDED WITH ANXIOUSNESS AND RESTLESSNESS. WILL CONT TO MONITOR CLOSELY; SEE RESTRAINT FLOW SHEET.
[2022-05-18 07:52] LABS: Glucose, Whole Blood 130 mg/dL (60-115)
[2022-05-18 08:35] LABS: Creatinine Clr Calc Pharmacy 69.5; Estimated Glomerular Filt Rate > 60
[2022-05-18] MEDS: Folic Acid 1 MG TABLET G-TUBE (09:29)
[2022-05-18] MEDS: oxyCODONE HCl Immed Release 5 MG TABLET PO ×2 (09:29→21:37)
[2022-05-18] MEDS: levETIRAcetam Oral Soln 500 MG/5 ML G-TUBE ×2 (09:29→21:37)
[2022-05-18] MEDS: Tamsulosin HCL 0.4 MG CAPSULE PO (09:30)
[2022-05-18] MEDS: OLANZapine 5 MG TABLET G-TUBE ×2 (09:30→21:37)
[2022-05-18] MEDS: Thiamine HCL 100 MG TABLET G-TUBE (09:30)
[2022-05-18] MEDS: 0.9 % Sodium Chloride Flush 3 ML SYRINGE IVFLUSH ×2 (09:31→18:27)
--- NOTE | 2022-05-18 10:55 | P.CONGS_ITS ---
History of Present Illness Consult details Consult date: 05/18/22 Reason for consult: wound care Narrative: Very complex 66-year-old gentleman presents for hospital evaluation regarding above knee amputation. He is a very complex gentleman with multiple comorbidit ies. He is bedbound, nonverbal and being fed via PEG tube. He had significant nonhealing left lower extremity ulcers and subsequently underwent an above knee amputation. He was at a facility and the stump had dehisced. In addition on the dorsum the femur had been exposed through the skin. He now presents to us for vascular evaluation. Review of Systems Review of Systems: Yes Unobtainable due to mental status Constitutional: Constitutional: Reports weakness and Reports weight loss ENT: Reports Normal hearing present Cardiovascular: Cardiovascular: Denies chest pain, Denies chest pain at rest, Denies chest pain with activity and Denies pedal edema Respiratory: Respiratory: Denies cough Gastrointestinal: Gastrointestinal: Denies abdominal pain Musculoskeletal: Musculoskeletal: Reports abnormal gait, Reports muscle weakness and Reports radiating pain into limb Integumentary/Breasts: Skin/Breast: Denies skin ulcer and Reports wounds Neurologic: Reports Normal hearing present, Reports abnormal gait and Reports weakness PMFSH Past Medical History Medical History (Updated 05/18/22 @ 11:00 by Piero Valdovinos MD) Above knee amputation of left lower extremity Alcohol abuse Blood per rectum Cardiomyopathy Cellulitis Dementia DVT (deep venous thrombosis) DVT of deep femoral vein GERD (gastroesophageal reflux disease) Hepatitis Hepatitis C antibody positive in blood Hypertension PAD (peripheral artery disease) Seizure UTI (urinary tract infection) Wound dehiscence Family History Family History Father No problems noted. Mother No problems noted. Brother Cancer Sister No problems noted. Surgical History Surgical History History of esophagogastroduodenoscopy (EGD) Hx of AKA (above knee amputation) S/P percutaneous endoscopic gastrostomy (PEG) tube placement Social History Social History (Updated 05/15/22 @ 17:31 by BERNY Davison) Household Members: Unknown / Unable to assess Housing: Unknown / Unable to assess Unable to assess alcohol history related to: Unable to respond Alcohol intake: former Patient Tobacco Use Status: Former Tobacco user Cigarettes Per Day: 7 Substance Use Type: Unknown Currently Displaying Signs/Symptoms of Drug Intoxication Withdrawal: No Advance Directives: Yes Advance Directives on File: Yes Advance Directives Date on File: 10/11/20 Recently lost weight without trying: Unsure Nutrition Risks: Difficulty chewing, Difficulty swallowing and Receiving home tube feeding or CPN service: No Current occupational status: unemployed and disabled Meds Allergies Allergy/AdvReac Type Severity Reaction Status Date / Time No Known Allergies Allergy Verified 05/07/22 10:48 [No Known Allergies*] Active Medications: Current Medications Atorvastatin Calcium (Atorvastatin Calcium 40 Mg Tablet) 40 mg G-TUBE BEDTIME [facility] Last Admin: 05/17/22 20:56 Dose: 40 mg Bisacodyl (Bisacodyl 10 Mg Supp.Rect) 10 mg [place] DAILY PRN PRN Reason: Constipation Folic Acid (Folic Acid 1 Mg Tablet) 1 mg G-TUBE DAILY [facility] Last Admin: 05/18/22 09:29 Dose: 1 mg Ceftriaxone Sodium 1 gm/ (Sodium Chloride) 50 mls @ 100 mls/hr IV Q24H [facility] Last Infusion: 05/17/22 21:26 Dose: Infused Vancomycin HCl 1,250 mg/ (Sodium Chloride) 250 mls @ 166.667 mls/hr IV Q24H [facility] Last Infusion: 05/17/22 15:46 Dose: Infused Levetiracetam (Levetiracetam Oral Soln 500 Mg/5 Ml) 500 mg G-TUBE BID [facility] Last Admin: 05/18/22 09:29 Dose: 500 mg Olanzapine (Olanzapine 5 Mg Tablet) 5 mg G-TUBE BID [facility] Last Admin: 05/18/22 09:30 Dose: 5 mg Omeprazole (Omeprazole 20 Mg/10 Ml Susp.Recon) 20 mg G-TUBE DAILY@0630 [facility] Last Admin: 05/18/22 06:16 Dose: 20 mg Oxycodone HCl (Oxycodone Hcl Immed Release 5 Mg Tablet) 5 mg PO Q6H PRN PRN Reason: pain score 7-10 Oxycodone HCl (Oxycodone Hcl Immed Release 5 Mg Tablet) 5 mg PO BID@0800,2100 [facility] Last Admin: 05/18/22 09:29 Dose: 5 mg Pharmacy Consult (Consult Rx Perform Med Rec) 1 each MISCELLANE ONCE PRN PRN Reason: Consult order Pharmacy Consult (Consult Rx Vancomycin Dosing) 1 each MISCELLANE DAILY PRN PRN Reason: Consult order Sodium Chloride (0.9 % Sodium Chloride Flush 3 Ml Syringe) 3 ml IVFLUSH QSHIFT [facility] Last Admin: 05/18/22 09:31 Dose: 3 ml Tamsulosin HCl (Tamsulosin Hcl 0.4 Mg Capsule) 0.4 mg PO DAILY [facility] Last Admin: 05/18/22 09:30 Dose: 0.4 mg Thiamine HCl (Thiamine Hcl 100 Mg Tablet) 100 mg G-TUBE DAILY [facility] Last Admin: 05/18/22 09:30 Dose: 100 mg Home Medications Medication Instructions Recorded Confirmed Last Taken Type tamsulosin 0.4 mg capsule 0.4 mg PO DAILY 04/01/20 05/15/22 Unknown History levetiracetam 500 mg tablet 500 mg PO BID 04/21/22 05/15/22 Unknown History acetaminophen 325 mg tablet 650 mg PO Q4H PRN Pain 05/15/22 05/15/22 Unknown History amlodipine 10 mg tablet 5 mg feeding tube DAILY 05/15/22 05/15/22 Unknown History bisacodyl 10 mg rectal suppository 10 mg [place] DAILY PRN Constipation 05/15/22 05/15/22 Unknown History ceftriaxone 1 gram intravenous 1 g IV DAILY 05/15/22 05/15/22 Unknown History solution molnupiravir 200 mg capsule (EUA) 800 mg PO Q12H 05/15/22 05/15/22 Unknown History olanzapine 5 mg tablet (Zyprexa) 5 mg feeding tube BID 05/15/22 05/15/22 Unknown History oxycodone 5 mg tablet 5 mg PO BID@0800,2100 05/15/22 05/15/22 Unknown History oxycodone 5 mg tablet 5 mg PO ONCE PRN 30 minutes prior 05/15/22 05/15/22 Unknown History to wound care oxycodone 5 mg tablet 5 mg PO Q6H PRN pain score 7-10 05/15/22 05/15/22 Unknown History vancomycin 1.25 gram intravenous 1.5 g IV Q24H 05/15/22 05/15/22 Unknown History solution Physical Exam Vital Signs: Vital Signs: Last Vital Signs Temp 98.5 F 05/18/22 08:00 Pulse 77 05/18/22 08:00 Resp 12 05/18/22 08:00 BP 141/55 H 05/18/22 08:00 Pulse Ox 93 05/18/22 08:00 O2 Del Method 05/18/22 08:00 O2 Flow Rate 2 05/16/22 18:30 BMI result Body Mass Index 20.9 Const: General: cooperative, healthy appearing and comfortable Orientation/consciousness: oriented to person, oriented to place and oriented to time HEENT: Head: Yes normal to inspection Neck: Neck: Yes normal visual inspection Carotids: no bruits Chest: Chest palpation & inspection: normal inspection of the chest Resp: Effort & Inspection: normal respiratory effort and able to speak in complete sentences Auscultation: clear to auscultation bilaterally, no crackles, no rales, no rhonchi and no wheezes Cardio: Rate: regular rate Rhythm: regular rhythm Heart sounds: S1 normal heart sound present and S2 normal heart sound present Bruits: no carotid bruits Peripheral pulses: Peripheral pulses 2+ throughout GI: Inspection: Yes normal to inspection Skin: Wounds: amputation site (Left AKA nonhealing) and wounds noted Hair: normal Neuro: General: oriented to person, oriented to place and oriented to time Cranial nerves: Yes CN's II-XII intact bilaterally and Yes Normal hearing present Cognition (Neuro): normal cognition Motor exam (neuro): 5/5 motor strength present throughout Extrem: Other: venous exam: No significant superficial varicosities or spider telangiectasias, minimal edema General: No clubbing, No cyanosis and No edema Psych: Appearance: grossly normal Mental Status: mental status grossly normal Speech and movement: Normal speech and movement present Results Labs 05/17/22 08:27 05/18/22 08:06 Labs: Abnormal lab results 05/18/22 05/18/22 Range/Units 07:46 09:10 POC Glucose 130 H (60-115) mg/dL Crossmatch See Detail BMP 05/18/22 08:06 Creatinine 0.86 All other labs normal. Assessment and Plan (1) Above knee amputation of left lower extremity: Status: Acute Plan In short patient has a nonhealing left above knee amputation. The bone has penetrated through the dorsum of the skin as well. Complete exposure. I do not feel that going further up will be significantly helpful. Next step will be total hip disarticulation. That is an extremely morbid procedure and I do not feel that the patient will tolerate this. Due to his overall status I do believe that conservative measures are the best for him and most likely hospice. Would most likely be best served with a wound VAC at the current time. We will peripherally follow with you. Thank you for allowing us to assist in his care. If there are any questions or concerns please do not hesitate to contact us Time Spent With Patient Time: Total time managing care of this patient today ____ minutes. Procedures Date of Service Date of Service: 05/18/22
[2022-05-18 11:33] LABS: Glucose, Whole Blood 109 mg/dL (60-115)
[2022-05-18 11:47] LABS: Vancomycin Random 19.5 mcg/mL (15-20)
--- NOTE | 2022-05-18 11:56 | P.PNIM_ITS ---
Subjective Subjective Date of Service: 05/18/22 Review of Systems Follow-up nonhealing wound Patient confused, not verbalizing any pain Physical Exam Vital Signs: Vital Signs: Last Vital Signs Temp 98.7 F 05/18/22 10:00 Pulse 96 05/18/22 10:00 Resp 20 05/18/22 10:00 BP 130/76 05/18/22 10:00 Pulse Ox 93 05/18/22 10:00 O2 Del Method 05/18/22 10:00 O2 Flow Rate 2 05/16/22 18:30 BMI result Body Mass Index 20.9 Appearing in no acute distress lung sounds are clear to auscultation heart regular rate rhythm, clear S1, S2 positive bowel sounds, abdomen is soft, nontender neuro patient is alert, confused RLE AKA non healing wound Objective Data Active Medications Atorvastatin Calcium (Atorvastatin Calcium 40 Mg Tablet) 40 mg G-TUBE BEDTIME [facility] Last Admin: 05/17/22 20:56 Dose: 40 mg Documented By: TARAN Bisacodyl (Bisacodyl 10 Mg Supp.Rect) 10 mg [place] DAILY PRN PRN Reason: Constipation Folic Acid (Folic Acid 1 Mg Tablet) 1 mg G-TUBE DAILY [facility] Last Admin: 05/18/22 09:29 Dose: 1 mg Documented By: MOSES Ceftriaxone Sodium 1 gm/ (Sodium Chloride) 50 mls @ 100 mls/hr IV Q24H [facility] Last Infusion: 05/17/22 21:26 Dose: 0 mls/hr Documented By: TARAN Vancomycin HCl 1,250 mg/ (Sodium Chloride) 250 mls @ 166.667 mls/hr IV Q24H [facility] Last Infusion: 05/17/22 15:46 Dose: 0 mls/hr Documented By: SOLISPE Levetiracetam (Levetiracetam Oral Soln 500 Mg/5 Ml) 500 mg G-TUBE BID [facility] Last Admin: 05/18/22 09:29 Dose: 500 mg Documented By: MOSES Olanzapine (Olanzapine 5 Mg Tablet) 5 mg G-TUBE BID [facility] Last Admin: 05/18/22 09:30 Dose: 5 mg Documented By: MOSES Omeprazole (Omeprazole 20 Mg/10 Ml Susp.Recon) 20 mg G-TUBE DAILY@0630 [facility] Last Admin: 05/18/22 06:16 Dose: 20 mg Documented By: EDE Oxycodone HCl (Oxycodone Hcl Immed Release 5 Mg Tablet) 5 mg PO Q6H PRN PRN Reason: pain score 7-10 Oxycodone HCl (Oxycodone Hcl Immed Release 5 Mg Tablet) 5 mg PO BID@0800,2100 [facility] Last Admin: 05/18/22 09:29 Dose: 5 mg Documented By: MOSES Pharmacy Consult (Consult Rx Perform Med Rec) 1 each MISCELLANE ONCE PRN PRN Reason: Consult order Pharmacy Consult (Consult Rx Vancomycin Dosing) 1 each MISCELLANE DAILY PRN PRN Reason: Consult order Sodium Chloride (0.9 % Sodium Chloride Flush 3 Ml Syringe) 3 ml IVFLUSH QSHIFT [facility] Last Admin: 05/18/22 09:31 Dose: 3 ml Documented By: MOSES Tamsulosin HCl (Tamsulosin Hcl 0.4 Mg Capsule) 0.4 mg PO DAILY [facility] Last Admin: 05/18/22 09:30 Dose: 0.4 mg Documented By: MOSES Thiamine HCl (Thiamine Hcl 100 Mg Tablet) 100 mg G-TUBE DAILY [facility] Last Admin: 05/18/22 09:30 Dose: 100 mg Documented By: MOSES Labs 05/17/22 08:27 05/18/22 08:06 Labs: Laboratory Results - last 24 hr 05/17/22 05/18/22 05/18/22 11:45 07:46 08:06 Estim Creat Clear Calc 69.5 Estimated GFR > 60 POC Glucose 130 H Random Vancomycin 18.5 Blood Type Antibody Screen Crossmatch 05/18/22 05/18/22 05/18/22 09:10 11:16 11:19 Estim Creat Clear Calc Estimated GFR POC Glucose 109 Random Vancomycin 19.5 Blood Type B Positive Antibody Screen NEGATIVE Crossmatch See Detail Microbiology Microbiology Results: Microbiology 05/15/22 12:57 Blood Culture - Preliminary Blood - Venous No growth after 48 hours. 05/15/22 12:57 Blood Culture - Preliminary Blood - Venous No growth after 48 hours. Assessment and Plan (1) Osteomyelitis: Status: Acute Plan 66-year-old male with pertinent history of DVT on Eliquis, history of seizures, essential hypertension, mixed hyperlipidemia, cardiomyopathy, alcohol use disorde, peripheral vascular disease status post left AKA, recent admission for GI bleed who was sent to ED for management of nonhealing surgical wound found to be covid 19 positive. Nonhealing surgical wound. has been following with Dr. Valdovinos as outpatient. outpatient indicates wound was down to bone. has been on IV abx for bacteremia, will continue IV ceftriaxone and vancomycin dr. valdovinos has recommended wound vac, order placed vascular surgery rec conservative measures as total hip disarticulation would be the extreme and patient will likely not survive hospice would be an appropriate next step wound care consult, ? wound vac supressive abx doxycycline possibly COVID 19 was started on molnupiravir at [facility] 05/14 but was not sent with any paperwork to indicate that he has tested positive for covid he tested positive 05/15 in ED no hypoxia hold molnupirav as not formulary Hyperkalemia lokelma follow BMP hold lisinopril recent GI bleed Eliquis discontinued on previous admission Continue Prilosec Enterococcus/MRSA/ Enterobacter Likely from skin infection with nonhealing stump wound, dehiscence echo Ef 40-45% RMWA, no vegetation on previous admission ID recommend 4 weeks of IV antibiotic after 1st negative blood cultures, IV vanco and ceftriaxone. first negative blood cultures from 04/21/22 - end date 05/19/22 Pt pulled out picc line while in ED, ED provider plans to place HTN BP low hold lisinopril, amlodipine previously on metoprolol, does not appear on current med rec dysphagia NPO tube feeding diet nutrition consult pending Seizure disorder Continue by Makayla via G-tube seizure precautions History of DVT patient has history of left leg DVT diagnosed in August of 2021 eliquis d/c due to recurrent GI bleed PAD continue statin Alcohol use disorder continue thiamine and folic acid supplementation DVT Prohpylaxis compression boots due to h/o GIB code status - molst form from facility - FULL CODE. was DNR on previous hospitalization. may need to be discussed with HCP Attending Dr. Kapadia Given severity of wound likely will require 2 midnight stay in the hospital Time Spent With Patient Time: Total time managing care of this patient today ____ minutes. Quality Stroke Does the patient have a stroke diagnosis?: No VTE Prior VTE?: No VTE Risk Level:: Medical - moderate - high VTE Device Contraindication: N/A - Device Ordered VTE Drug Contraindication: Treatment Not Indicated
--- NOTE | 2022-05-18 12:03 | HE.PHANOTE ---
RE VANCO TROUGH WAS 19.5, LOWERING DOSE TO 1GRAM Q24H, AND STARTING TONIGHT TO GIVE THE PATIENT A PERIOD OF 8 ADDITIONAL HOURS WITHOUT VANCO. NEXT RANDOM DUE 05/19 @1800 JACOBO
--- NOTE | 2022-05-18 12:18 | MHC.CLN ---
RE: CONSULT PT WITH INCREASED NUTRITION RISK R/T PRESSURE INJURIES AND NON-HEALING WOUND PT FAMILIAR TO FACILITY FROM PREVIOUS ADMISSIONS PT CURRENTLY ON TF OSMOLITE 1.5 AT MAX GOAL RATE 65ML/HR WITH 120ML FREE WATER FLUSHES Q 6 HRS PROVIDES 2340KCALS (40KCALS/KG), 97.7G PROTEIN (1.65G/KG), 1669ML TOTAL WATER (28ML/KG) TF OVER EXCEEDING NUTRITION NEEDS RECOMMEND TF OSMOLITE 1.5 AT MAX GOAL RATE 50ML/HR WITH 30ML PROSOURCE X1 PER DAY AND 240ML FREE WATER FLUSHES Q 6 HRS TO PROVIDE 1860 TOTAL KCALS (31.5KCALS/KG), 90 TOTAL G PROTEIN (1.5G/KG), 1874ML TOTAL WATER FROM FORMULA AND FLUSHES (32ML/KG) MONITOR TOLERANCE, RESIDUALS AND LYTES SEE ALSO FULL CLINICAL NUTRITION ASSESSMENT
--- NOTE | 2022-05-18 15:02 | MHC.CM.PN ---
Per MD rounds Hospice consult ordered. HCP Ashwin agrees to Hospice @ [facility]. MD and facility both notified that Hospice @ SNF is the DP. Patient will transport via BLS.
[2022-05-18 16:16] LABS: Glucose, Whole Blood 109 mg/dL (60-115)
--- NOTE | 2022-05-18 17:23 | P.CONWO_ITS ---
History of Present Illness Data of Consult Service Date: 05/18/22 Primary Care Provider: Myron Mcclain MD HPI 66-year-old male with pertinent history of DVT on Eliquis, history of seizures, essential hypertension, mixed hyperlipidemia, cardiomyopathy, alcohol use disorde, peripheral vascular disease status post left AKA, recent admission for GI bleed who was sent to ED for management of nonhealing surgical wound found to be covid 19 positive. Nonhealing surgical wound. has been following with Dr. Valdovinos as outpatient. outpatient indicates wound was down to bone. has been on IV abx for bacteremia, will continue IV ceftriaxone and vancomycin dr. valdovinos has recommended wound vac, order placed vascular surgery? rec conservative measures as total hip disarticulation would be the extreme and patient will likely not survive hospice would be an appropriate next step wound care consult, ? wound vac supressive abx doxycycline possibly We were asked to see this patient from wound care perspective. He has 3 open wounds on his left above knee amputation site but he has also month double medical issues. Currently he is getting blood and is getting tube feeds via G- tube. He is not very communicated and it is hard to understand if he is understanding of what is going on. Review of Systems Review of Systems: Yes Unobtainable due to mental status PMFSH Medical History (Updated 05/18/22 @ 11:00 by Piero Valdovinos MD) Above knee amputation of left lower extremity Alcohol abuse Blood per rectum Cardiomyopathy Cellulitis Dementia DVT (deep venous thrombosis) DVT of deep femoral vein GERD (gastroesophageal reflux disease) Hepatitis Hepatitis C antibody positive in blood Hypertension PAD (peripheral artery disease) Seizure UTI (urinary tract infection) Wound dehiscence Family History Father No problems noted. Mother No problems noted. Brother Cancer Sister No problems noted. Surgical History History of esophagogastroduodenoscopy (EGD) Hx of AKA (above knee amputation) S/P percutaneous endoscopic gastrostomy (PEG) tube placement Social History (Updated 05/15/22 @ 17:31 by BERNY Davison) Household Members: Unknown / Unable to assess Housing: Unknown / Unable to assess Unable to assess alcohol history related to: Unable to respond Alcohol intake: former Patient Tobacco Use Status: Former Tobacco user Cigarettes Per Day: 7 Substance Use Type: Unknown Advance Directives Date on File: 10/11/20 service: No Current occupational status: unemployed and disabled Meds Allergies Allergy/AdvReac Type Severity Reaction Status Date / Time No Known Allergies Allergy Verified 05/07/22 10:48 [No Known Allergies*] Active Medications: Current Medications Atorvastatin Calcium (Atorvastatin Calcium 40 Mg Tablet) 40 mg G-TUBE BEDTIME [facility] Last Admin: 05/17/22 20:56 Dose: 40 mg Bisacodyl (Bisacodyl 10 Mg Supp.Rect) 10 mg ND DAILY PRN PRN Reason: Constipation Folic Acid (Folic Acid 1 Mg Tablet) 1 mg G-TUBE DAILY [facility] Last Admin: 05/18/22 09:29 Dose: 1 mg Ceftriaxone Sodium 1 gm/ (Sodium Chloride) 50 mls @ 100 mls/hr IV Q24H [facility] Last Infusion: 05/17/22 21:26 Dose: Infused Vancomycin HCl 1,000 mg/ (Sodium Chloride) 270 mls @ 270 mls/hr IV Q24H [facility] Levetiracetam (Levetiracetam Oral Soln 500 Mg/5 Ml) 500 mg G-TUBE BID [facility] Last Admin: 05/18/22 09:29 Dose: 500 mg Olanzapine (Olanzapine 5 Mg Tablet) 5 mg G-TUBE BID [facility] Last Admin: 05/18/22 09:30 Dose: 5 mg Omeprazole (Omeprazole 20 Mg/10 Ml Susp.Recon) 20 mg G-TUBE DAILY@0630 [facility] Last Admin: 05/18/22 06:16 Dose: 20 mg Oxycodone HCl (Oxycodone Hcl Immed Release 5 Mg Tablet) 5 mg PO Q6H PRN PRN Reason: pain score 7-10 Oxycodone HCl (Oxycodone Hcl Immed Release 5 Mg Tablet) 5 mg PO BID@0800,2100 [facility] Last Admin: 05/18/22 09:29 Dose: 5 mg Pharmacy Consult (Consult Rx Perform Med Rec) 1 each MISCELLANE ONCE PRN PRN Reason: Consult order Pharmacy Consult (Consult Rx Vancomycin Dosing) 1 each MISCELLANE DAILY PRN PRN Reason: Consult order Sodium Chloride (0.9 % Sodium Chloride Flush 3 Ml Syringe) 3 ml IVFLUSH QSHIFT [facility] Last Admin: 05/18/22 09:31 Dose: 3 ml Tamsulosin HCl (Tamsulosin Hcl 0.4 Mg Capsule) 0.4 mg PO DAILY [facility] Last Admin: 05/18/22 09:30 Dose: 0.4 mg Thiamine HCl (Thiamine Hcl 100 Mg Tablet) 100 mg G-TUBE DAILY [facility] Last Admin: 05/18/22 09:30 Dose: 100 mg Home Medications Medication Instructions Recorded Confirmed Last Taken Type tamsulosin 0.4 mg capsule 0.4 mg PO DAILY 04/01/20 05/15/22 Unknown History levetiracetam 500 mg tablet 500 mg PO BID 04/21/22 05/15/22 Unknown History acetaminophen 325 mg tablet 650 mg PO Q4H PRN Pain 05/15/22 05/15/22 Unknown History amlodipine 10 mg tablet 5 mg feeding tube DAILY 05/15/22 05/15/22 Unknown History bisacodyl 10 mg rectal suppository 10 mg ND DAILY PRN Constipation 05/15/22 05/15/22 Unknown History ceftriaxone 1 gram intravenous 1 g IV DAILY 05/15/22 05/15/22 Unknown History solution molnupiravir 200 mg capsule (EUA) 800 mg PO Q12H 05/15/22 05/15/22 Unknown History olanzapine 5 mg tablet (Zyprexa) 5 mg feeding tube BID 05/15/22 05/15/22 Unknown History oxycodone 5 mg tablet 5 mg PO BID@0800,2100 05/15/22 05/15/22 Unknown History oxycodone 5 mg tablet 5 mg PO ONCE PRN 30 minutes prior 05/15/22 05/15/22 Unknown History to wound care oxycodone 5 mg tablet 5 mg PO Q6H PRN pain score 7-10 05/15/22 05/15/22 Unknown History vancomycin 1.25 gram intravenous 1.5 g IV Q24H 05/15/22 05/15/22 Unknown History solution Physical Exam Vital Signs and Narrative: Vital Signs: Last Vital Signs Temp 97.9 F 05/18/22 15:19 Pulse 102 H 05/18/22 15:19 Resp 20 05/18/22 15:19 BP 130/69 05/18/22 15:19 Pulse Ox 96 05/18/22 15:19 O2 Del Method 05/18/22 15:19 O2 Flow Rate 2 05/16/22 18:30 BMI result Body Mass Index 20.9 Skin: Other: Left above knee amputation has several wounds. Wound 1. Which is anterior with a protruding femur bone. Generally this area is clean but he has very little soft tissue in this area and the sharp edge of the femur bone is not good to allow it to heal. The surrounding tissue looks okay. Wound 2. Large full-thickness into muscle at the stump base. This wound is very large but looks relatively clean in the deeper tissue. No evidence of infection. There is evidence of granulation tissue. Wound 3. On the lateral aspect of the above knee amputation stump there is a gaping open wound into the muscle but generally with good granulation tissue no evidence of infection. Results Labs 05/17/22 08:27 05/18/22 08:06 Labs: Laboratory Results - last 24 hr 05/18/22 05/18/22 05/18/22 07:46 08:06 09:10 Estim Creat Clear Calc 69.5 Estimated GFR > 60 POC Glucose 130 H Random Vancomycin Blood Type B Positive Antibody Screen NEGATIVE Crossmatch See Detail 05/18/22 05/18/22 05/18/22 11:16 11:19 16:11 Estim Creat Clear Calc Estimated GFR POC Glucose 109 109 Random Vancomycin 19.5 Blood Type Antibody Screen Crossmatch Assessment and Plan (1) Above knee amputation of left lower extremity: Status: Acute Plan This 66-year-old male has multiple medical issues and now COVID positive. Hemodynamics are stable at this point. He is receiving blood and enteral nutrition via PEG tube. He has baseline issues with dementia. As well as encephalopathy. I think at this point extensive conversation needs to be had about the endpoint with this patient. If everyone agrees that he is amenable to recovery medically in regard to his encephalopathy GI bleed and nutrition status then I also think that we need to agree that he has safe place to rehab at after his discharge. If all of this is amenable to potential improvement then would consider aggressive wound care of this wound. This would start by ortho consult to debride back the femur bone to allow soft tissue to cover this open area. This could be done and primary closure accompanied potentially. In regards to the other wounds wet to dry saline dressings can be carried out at this point with plan to place wound vac and sponge in both these areas to close. The integrity of the tissue does not look too bad right now and there is a potential for this to heal. It has to be noted that the dressings and the wound VAC and the surgical debridement is only part of the bigger picture. If his nutrition cannot be maintained and if he is consistently anemic than these wounds will not heal. Consider just wet-to-dry dressings until further disposition is decided. Time Spent With Patient Time: Total time managing care of this patient today ____ minutes.
[2022-05-18] MEDS: cefTRIAXone sodium 1 GM in 0.9 % Sodium Chloride 50 ML IV (18:27)
[2022-05-18 19:48] LABS: Glucose, Whole Blood 119 mg/dL (60-115)
[2022-05-18] MEDS: vancomycin HCL 1,000 MG in 0.9 % Sodium Chloride 250 ML 270 MG IV (21:37)
[2022-05-18] MEDS: Atorvastatin Calcium 40 MG TABLET G-TUBE (21:37)
[2022-05-19] VITALS (7 sets, daily range): BP systolic 136–154; BP diastolic 70–98; PULSE 70–103; RESP 16–20; TEMP 36.2–37.2; O2SAT 93–96
[2022-05-19] MEDS: 0.9 % Sodium Chloride Flush 3 ML SYRINGE IVFLUSH (03:55)
[2022-05-19 06:18] LABS: Estimated Glomerular Filt Rate > 60
[2022-05-19] MEDS: Thiamine HCL 100 MG TABLET G-TUBE (09:01)
[2022-05-19] MEDS: Doxycycline Monohydrate 100 MG CAPSULE PO (09:01)
[2022-05-19] MEDS: levETIRAcetam Oral Soln 500 MG/5 ML G-TUBE (09:01)
[2022-05-19] MEDS: OLANZapine 5 MG TABLET G-TUBE (09:02)
[2022-05-19] MEDS: oxyCODONE HCl Immed Release 5 MG TABLET PO (09:02)
[2022-05-19] MEDS: Folic Acid 1 MG TABLET G-TUBE (09:04)
[2022-05-19] MEDS: Tamsulosin HCL 0.4 MG CAPSULE PO (09:05)
[2022-05-19 09:10] LABS: Anion Gap 15 (12-20); Blood Urea Nitrogen 21 mg/dL (9-16); Calcium 9.2 mg/dL (8.4-10.2); Carbon Dioxide 20 mmol/L (22-29); Chloride 115 mmol/L (96-108); Creatinine Clr Calc Pharmacy 66.4; Estimated Glomerular Filt Rate > 60; Glucose Random 115 mg/dL (60-115); Potassium 4.6 mmol/L (3.3-5.1); Sodium 145 mmol/L (135-145)
[2022-05-19 09:12] LABS: Hematocrit 32.9 % (42.0-52.0); Mean Corpuscular HGB Conc 30.4 g/dl (31.0-36.0); Mean Corpuscular Volume 92.2 fL (80.0-98.0); Mean Platelet Volume 9.7 fL (9.4-12.4); Platelet Count 415 X10*3/uL (160-400); Red Blood Count 3.57 X10*6/uL (4.60-5.80); Red Cell Distribution Width 15.6 % (11.0-16.0); White Blood Count 11.4 X10*3/uL (4.8-10.8)
[2022-05-19] MEDS: LORazepam 2 MG/ML VIAL 0.25 MG IVPUSH (12:04)
--- NOTE | 2022-05-19 13:48 | MHC.CM.PN ---
Patient has been medically cleared for dc to SNF today with [facility]. [facility] at 4PM via [facility]. CM has left a detailed message for Friend/HCP/Ashwin at listed #, confirming the dc details with him and reviewing the IMM (original will be mailed certified letter to Ashwin and a copy has been placed on the chart).
--- NOTE | 2022-05-19 14:58 | MHC.CM.PN ---
CM was able to speak with Patient's HCP/Ashwin at [phone] and he confirmed that he is aware of and in agreement with the dc plan.
--- NOTE | 2022-05-19 15:05 | P.DS_ITS ---
DS: Providers Provider Date of Service: 05/19/22 Date of admission: 05/15/22 17:08 Primary care physician: Myron Mcclain MD Consults: 05/15/22 17:13 Consult to Vascular Surgery Routine Consulting Provider: Piero Valdovinos Reason for consultation: nonhealing left leg wound Has provider been notified: Yes 05/18/22 12:07 Consult to Wound Care Routine Consulting Provider: Oma Navarrete Reason for consultation: left aka non healing wound Has provider been notified: No Attending physician on discharge: Dennis Kapadia Discharging clinician: Starr Gilmore DS: Diagnosis Discharge Diagnosis (1) Above knee amputation of left lower extremity: Status: Acute DS: Summary Hospital Course Hospital Course: History and physical as per admitting provider This is 66-year-old male with multiple medical issues who was brought to the ED with nonhealing surgical wound. He has had two previous admissions for numerous acute medical issues. He was discharged to rehab on 05/01. He was seen by Dr. Valdovinos in the outpatient setting on May 07. Wound was noted to be down to bone.? At that time he recommended a wound VAC to be placed to the nonhealing wound,? this was supposed to be done at the facility.? It is unclear if this occurred. ? The patient is primarily nonverbal and? therefore not able to provide any significant history. ? In the emergency department patient noted to have deep wound with exposed bone. ? Lab work was significant for leukocytosis of 15, H/H of 7.9/25.4 and potassium of 5.5. ? He was restless and pulled out his PICC line.? He was given a dose of IM Zyprexa. ? In the emergency room provider discussed the case with Dr. Valdovinos recommended admitting the patient for further management of nonhealing wound.? he had screening test for COVID 19 and tested positive. ?He has no evidence of hypoxia at this time . Hospice care Printed prescriptions for morphine and lorazepam Nonhealing surgical wound. has been following with Dr. Valdovinos indicates wound was down to bone. Treated with vancomycin,Rocephin for bacteremia and osteomyelitis completed has been on IV abx course vascular surgery? rec conservative measures as total hip disarticulation would be the extreme and patient will likely not survive continue wet to dry dressings daily COVID 19 was started on molnupiravir at SNF 05/14 but was not sent with any paperwork to indicate that he has tested positive for covid he tested positive 05/15 in ED no hypoxia does not need at this point Hyperkalemia. Resolved Treated with Lokelma recent GI bleed Eliquis discontinued on previous admission Continue Prilosec Enterococcus/MRSA/ Enterobacter Likely from skin infection with nonhealing stump wound, dehiscence echo Ef 40-45% RMWA, no vegetation on previous admission Completed 4 weeks of IV antibiotics with vancomycin and Rocephin HTN Continue home medications dysphagia NPO tube feeding diet Seizure disorder Continue by Makayla via G-tube seizure precautions History of DVT patient has history of left leg DVT diagnosed in August of 2021 eliquis d/c due to recurrent GI bleed PAD continue statin Alcohol use disorder continue thiamine and folic acid supplementation Time Spent with Patient Time attestation: Total time managing care of this patient today ____ minutes. Discharge coordination time: Greater than 30 minutes Quality: Safe Use of Opioids Does Pt have an Active Cancer Diagnosis on the Problem List?: No Quality: Stroke Does the patient have a stroke diagnosis?: No Physical Exam Vital Signs: Vital Signs: Last Vital Signs Temp 98.9 F 05/19/22 10:00 Pulse 101 H 05/19/22 10:00 Resp 16 05/19/22 10:00 BP 154/79 H 05/19/22 10:00 Pulse Ox 94 05/19/22 10:00 O2 Del Method 05/19/22 10:00 O2 Flow Rate 2 05/16/22 18:30 BMI result Body Mass Index 20.9 Appearing in no acute distress lung sounds are clear to auscultation heart regular rate rhythm, clear S1, S2 positive bowel sounds, abdomen is soft, nontender, Gtube intact neuro patient is alert , mostly nonverbal Left AKA stump DS: Data Data Completed and Pending Completed studies during hospitalization [Text1]: Procedures Control Bleeding in Gastrointestinal Tract, Via Natural or Artificial Opening Endoscopic (04/21/22) Detachment at Left Upper Leg, High, Open Approach (03/03/22) Detoxification Services for Substance Abuse Treatment (06/23/21) Drainage of Spinal Canal, Percutaneous Approach, Diagnostic (03/03/22) Excision of Stomach, Pylorus, Via Natural or Artificial Opening Endoscopic, Diagnostic (04/21/22) Fluoroscopy of Spinal Cord (03/03/22) Insertion of Feeding Device into Stomach, Percutaneous Approach (03/03/22) Insertion of Infusion Device into Superior Vena Cava, Percutaneous Approach (04/21/22) Transfusion of Nonautologous Frozen Plasma into Peripheral Vein, Percutaneous Approach (04/21/22) Transfusion of Nonautologous Red Blood Cells into Peripheral Vein, Percutaneous Approach (04/21/22) Ultrasonography of Superior Vena Cava, Guidance (04/21/22) Labs on day of discharge: Laboratory Results - last 24 hr 05/18/22 05/18/22 05/18/22 09:10 16:11 19:43 WBC RBC Hgb Hct MCV MCH MCHC RDW Plt Count MPV Absolute Nucleated RBC Nucleated RBC % (auto) Sodium Potassium Chloride Carbon Dioxide Anion Gap BUN Creatinine Estim Creat Clear Calc Estimated GFR POC Glucose 109 119 H Random Glucose Calcium Crossmatch See Detail 05/19/22 05/19/22 05/19/22 05:47 08:35 08:35 WBC 11.4 H RBC 3.57 L D Hgb 10.0 L D Hct 32.9 L D MCV 92.2 MCH 28.0 MCHC 30.4 L RDW 15.6 Plt Count 415 H MPV 9.7 Absolute Nucleated RBC 0.000 Nucleated RBC % (auto) 0.0 Sodium 145 Potassium 4.6 Chloride 115 H Carbon Dioxide 20 L Anion Gap 15 BUN 21 H Creatinine 0.83 0.90 Estim Creat Clear Calc 72.0 66.4 Estimated GFR > 60 > 60 POC Glucose Random Glucose 115 Calcium 9.2 Crossmatch Preliminary micro results at discharge 05/15/22 12:57 Blood Culture - Preliminary Blood - Venous No growth after 48 hours. 05/15/22 12:57 Blood Culture - Preliminary Blood - Venous No growth after 48 hours. Discharge Plan Discharge Anticipated Discharge Date/Time: 05/19/22 14:59 Patient Disposition: Hospice - Medical Facility Discharge Diagnosis: Nonhealing surgical wound COVID-19 Hyperkalemia Dysphagia Referrals: [facility] [Outside] - 1 Week Myron Mcclain MD [Primary Care Provider] - 1 Week Discharge Medications: New morphine concentrate 100 mg/5 mL (20 mg/mL) solution 10 mg PO Q6H PRN (Reason: pain) Qty: 15 0RF Rx Instructions: Partial Fill upon patient request. lorazepam [Lorazepam Intensol] 2 mg/mL concentrate 1 mg PO Q6H PRN (Reason: agitation) Qty: 30 0RF Continued levetiracetam 500 mg Tablet 500 mg PO BID acetaminophen 325 mg Tablet 650 mg PO Q4H PRN (Reason: Pain) ceftriaxone 1 gram Recon Soln 1 g IV DAILY Rx Instructions: LAST DAY IS 05/23 bisacodyl 10 mg Suppository 10 mg MI DAILY PRN (Reason: Constipation) oxycodone 5 mg Tablet 5 mg PO Q6H PRN (Reason: pain score 7-10) oxycodone 5 mg Tablet 5 mg PO BID@0800,2100 oxycodone 5 mg Tablet 5 mg PO ONCE PRN (Reason: 30 minutes prior to wound care) vancomycin 1.25 gram Recon Soln 1.5 g IV Q24H Rx Instructions: until 05/22 molnupiravir 200 mg Capsule 800 mg PO Q12H Rx Instructions: last day 05/19 olanzapine [Zyprexa] 5 mg tablet 5 mg feeding tube BID amlodipine 10 mg tablet 5 mg feeding tube DAILY Protocol: Hold for SBP< HOLD for SBP < : 90 Label Comments: end date 05/20 omeprazole magnesium 10 mg susp,delayed release for recon 20 mg feeding tube DAILY Qty: 30 0RF atorvastatin 40 mg tablet 40 mg feeding tube BEDTIME Qty: 30 0RF cyanocobalamin (vitamin B-12) 1,000 mcg tablet 1,000 mcg feeding tube QAM Qty: 30 0RF thiamine HCl (vitamin B1) 100 mg tablet 100 mg feeding tube DAILY Qty: 30 1RF folic acid 1 mg tablet 1 mg feeding tube DAILY Qty: 30 1RF lisinopril 5 mg tablet 5 mg feeding tube DAILY Qty: 30 0RF cholecalciferol (vitamin D3) 50 mcg (2,000 unit) capsule 50 mcg feeding tube DAILY Qty: 30 0RF tamsulosin 0.4 mg capsule 0.4 mg PO DAILY Discharge Orders: Discharge Order (Routine); Ordered 05/19/22 Ordered By: Starr Gilmore Diet: G-tube Activity on Discharge: As tolerated Stand Alone Forms: Patient Portal Discharge page Care Plan Goals: Plan for hospice Health Concerns: Nonhealing surgical wound COVID-19 Hyperkalemia Dysphagia Plan of Treatment: Take all medications as prescribed Assessment: See discharge summary
--- NOTE | 2022-05-19 16:24 | PC.NURSE ---
dsg to left stump changed
== END 2022-05-19 17:31 | disposition hospice, inpatient (51) | DRG 564 ==
LOC: HO.ED 14:44 → HO.EDOVER 17:21 → HO.IMC 17:54
PROVIDERS: Physician Assistant Medical; Admitting Provider Physician Assistant Medical; Emergency Provider Emergency Medicine; PCP Family Medicine; Visit Provider Nurse Practitioner Acute Care
DX: T87.81 Dehiscence of amputation stump (principal); U07.1 COVID-19; R78.81 Bacteremia; M86.9 Osteomyelitis, unspecified; I42.9 Cardiomyopathy, unspecified; R47.9 Unspecified speech disturbances; E78.2 Mixed hyperlipidemia; I10 Essential (primary) hypertension; E87.5 Hyperkalemia; R13.10 Dysphagia, unspecified; F03.90 Unspecified dementia, unspecified severity, without behavioral disturbance, psychotic disturbance, mood disturbance, and anxiety; F10.11 Alcohol abuse, in remission; B95.62 Methicillin resistant Staphylococcus aureus infection as the cause of diseases classified elsewhere; B95.2 Enterococcus as the cause of diseases classified elsewhere; G40.909 Epilepsy, unspecified, not intractable, without status epilepticus; I73.9 Peripheral vascular disease, unspecified; Z51.5 Encounter for palliative care; Z74.01 Bed confinement status; Z93.1 Gastrostomy status; Z87.891 Personal history of nicotine dependence; Z79.899 Other long term (current) drug therapy
CPT/HCPCS: 0241U; 36415; 71045; 73700; 80048; 80053; 80202; 82565; 82947; 83735; 85014; 85018; 85025; 85027; 85610; 85652; 85730; 86140; 86850; 86900; 86901; 86923; 87040; 96372; 99285; J0696; J2060; J3370; J3371; P9016